=== PATIENT | male | born 1970 ===

== ENCOUNTER 2016-05-25 14:23 | Inpatient (IN) | payer MEDICAID ==
[2016-05-25 14:23] VITALS: BMI 39.0
--- NOTE | 2016-05-25 14:44 | C.PDOC ---
History Of Present Illness 45-year-old male, PMHx of COPD, asthma, DM, HN, DVT in RLE, NSTEMI in 01/2016, gallstones, liver cirrhosis, and CKD, presents to the emergency department with complaints of right lower-leg pain. Patient states he has been experiencing worsening pain and swelling in his right calf for the past few days, that is associated w/ redness to the anterior part of his leg, resulting in him coming to the ED for evaluation. States it feels similar to prior DVT pain, but it is worse. Denies nausea/vomiting, diarrhea, fevers, chills, shortness of breath, chest pain, numbness/weakness, or any other associated symptoms. No other complaints at this time. Of note, patient admitted in 05/06 for DVT and COPD exacerbation. Time Seen by Provider: 05/25/16 14:39 Chief Complaint (Nursing): Lower Extremity Problem/Injury History Per: Patient History/Exam Limitations: no limitations Onset/Duration Of Symptoms: Days Current Symptoms Are (Timing): Still Present Past Medical History Reviewed: Historical Data, Nursing Documentation, Vital Signs Vital Signs: Last Vital Signs Temp 98.3 F 05/25/16 14:26 Pulse 105 H 05/25/16 17:15 Resp 21 05/25/16 17:15 BP 117/51 L 05/25/16 17:15 Pulse Ox 90 L 05/25/16 17:24 - Medical History PMH: Asthma, CHF, COPD, Diabetes, Deep Vein Thrombosis, HTN, Hyperlipidemia, Pneumonia (2015) - [facility] Procedures DRAINAGE OF SPINAL CANAL, PERCUTANEOUS APPROACH, DIAGNOSTIC (05/03/15) INSERTION OF INFUSION DEV INTO R FEMOR VEIN, PERC APPROACH (01/25/16) PERFORMANCE OF URINARY FILTRATION, MULTIPLE (01/25/16) TETANUS TOXOID ADMINIST (07/19/13) Family History: States: Unknown Family Hx, Diabetes - Social History Hx Tobacco Use: No Hx Alcohol Use: No Hx Substance Use: No - Immunization History Hx Tetanus Toxoid Vaccination: Yes (07/19/13) Hx Influenza Vaccination: No (egg allergy) Hx Pneumococcal Vaccination: No Review Of Systems Except As Marked, All Systems Reviewed And Found Negative. Constitutional: Negative for: Fever, Chills Cardiovascular: Negative for: Chest Pain, Palpitations Respiratory: Negative for: Cough Gastrointestinal: Negative for: Nausea, Vomiting Musculoskeletal: Positive for: Leg Pain. Negative for: Back Pain Skin: Negative for: Rash Neurological: Negative for: Weakness, Numbness Physical Exam - Physical Exam Appears: Non-toxic, No Acute Distress (MODERATE) Skin: Warm, Dry, No Rash Head: Atraumatic, Normacephalic Eye(s): bilateral: Normal Inspection Nose: Normal Oral Mucosa: Moist Lips: Normal Appearing Neck: Normal ROM Cardiovascular: Rhythm Regular Respiratory: Normal Breath Sounds, No Accessory Muscle Use Extremity: Tenderness, Calf Tenderness, No Deformity, Swelling (RIGHT LOWER EXT : SWELLING AND REDNESS TO CALF, (+) TENDERNESS TO PALPATION) Neurological/Psych: Oriented x3, Normal Speech ED Course And Treatment - Laboratory Results Result Diagrams: 05/25/16 15:27 05/25/16 15:27 ECG: Interpreted By Me ECG Rhythm: Sinus Tachycardia, R BBB ECG Interpretation: No Acute Changes Rate From EC O2 Sat by Pulse Oximetry: 90 - CT Scan/US arterial duplex Other Rad Studies (CT/US): Radiology Report Reviewed (normal flow) Progress - Re-Evaluation Re-evaluation Note: 05/25/16 15:52 D/W DR MANLEY AWARE OF ER FINDINGS. PT ON MEDROL DOSE PACK, POSISBLE CAUSE ELEVATED WBC? BCX 05/11 NEG 05/25/16 16:37 co persist pain but improved from prior. ps has 1 day dose left of medrol dose pack. pending xray. - Data Reviewed Data Reviewed: Lab, Diagnostic imaging, EKG, Old records Disposition Counseled Patient/Family Regarding: Studies Performed, Diagnosis - Disposition Disposition: HOSPITALIZED Disposition Time: 17:23 Condition: STABLE - POA Present On Arrival: Poor Glycemic Control, Deep Vein Thrombosis / PE - Clinical Impression Clinical Impression: Cellulitis, Leg pain, Lymphocytosis - Scribe Statement The provider has reviewed the documentation as recorded by the Matheus Camargo All medical record entries made by the Renaeiberic were at my direction and personally dictated by me. I have reviewed the chart and agree that the record accurately reflects my personal performance of the history, physical exam, medical decision making, and the department course for this patient. I have also personally directed, reviewed, and agree with the discharge instructions and disposition. Decision To Admit - Pt Status Changed To: Hospital Disposition Of: Inpatient - Admit Certification Admit to Inpatient:: After my assessment, the patient will require hospitalization for at least two midnights. This is because of the severity of symptoms shown, intensity of services needed, and/or the medical risk in this patient being treated as an outpatient. - InPatient: Physician Admission Certification: I certify that this patient requires 2 or more midnights of care for the following reason:: SEE NOTE - . Bed Request Type: Regular Admitting Physician: Rick Manley Patient Diagnosis: Cellulitis, Leg pain, Lymphocytosis
[2016-05-25 15:34] LABS: BASO # 0.2 K/uL (0.0-0.2); BASO % 0.4 % (0.0-2.0); EOS # 0.3 K/uL (0.0-0.7); EOS % 0.9 % (0.0-4.0); HEMATOCRIT 50.3 % (35.0-51.0); LYMPH # 2.7 K/uL (1.0-4.3); LYMPH % 7.3 % (20.0-40.0); MEAN CORPUSCULAR HEMOGLOBIN 28.9 pg (27.0-31.0); MEAN CORPUSCULAR HGB CONC 32.7 g/dL (33.0-37.0); MEAN PLATELET VOLUME 9.1 fL (7.2-11.7); MONO # 2.5 K/uL (0.0-0.8); MONO % 6.7 % (0.0-10.0); NRBC % 0.1 % (0.0-2.0); PLATELET COUNT 114 K/uL (130-400); RED CELL DISTRIBUTION WIDTH 16.8 % (11.5-14.5)
[2016-05-25 15:42] LABS: INR 1.1
[2016-05-25 15:43] LABS: MEAN CELL VOLUME 88.4 fL (80.0-94.0); WHITE BLOOD COUNT 36.6 K/uL (4.8-10.8)
[2016-05-25] MEDS ORDERED: Morphine 4 MG/ML VIAL ONE (15:43)
[2016-05-25 16:03] LABS: CHLORIDE 95 mmol/L (98-107); SODIUM 134 mmol/L (132-148)
[2016-05-25 16:05] LABS: GFR AFRICAN-AMERICAN > 60
[2016-05-25 16:06] LABS: BLOOD UREA NITROGEN 30 mg/dL (9-20); CALCIUM 8.3 mg/dl (8.6-10.4); CARBON DIOXIDE 31 mmol/L (22-30); GLUCOSE,RANDOM 231 mg/dL (75-110)
[2016-05-25 16:35] LABS: VENOUS BLOOD GAS BASE EXCESS 3.5 mmol/L (0.0-2.0); VENOUS BLOOD GAS PCO2 57 mmHg (40-60); VENOUS BLOOD PH 7.34 (7.32-7.43)
[2016-05-25] MEDS ORDERED: HYDROmorphone 0.5 mg/0.5 ml ISec IVP STA (16:36)
[2016-05-25] MEDS ORDERED: HYDROmorphone 1 mg/ml ISec ONE (16:45)
[2016-05-25] MEDS ORDERED: ceFAZolin 1 gm FROZEN Premix 50 ML IVPB ONE (16:46)
[2016-05-25 16:53] LABS: EOSINOPHIL 1 % (0-4); NEUTROPHIL 85 % (50-75); TOTAL CELLS COUNTED 100
--- NOTE | 2016-05-25 16:56 | VASCLAB ---
PROCEDURE: HISTORY: SUDDEN ONSET LEG PAIN HO DVT COMPARISON: None available. TECHNIQUE: Grayscale and duplex Doppler evaluation of the right common femoral, femoral, profunda femoral, popliteal, posterior tibial, anterior tibial and dorsalis pedis arteries was performed. Report prepared by Thang Borrero, BS, RVT FINDINGS: RIGHT LOWER EXTREMITY: * Common Femoral Artery: Peak Systolic Velocity - 131: Doppler Waveform: Triphasic.: Plaque description - * Profunda Femoral Artery: Peak Systolic Velocity - 79: Doppler Waveform: Triphasic.: Plaque description - * Femoral Artery o Proximal Segment: Peak Systolic Velocity - 114: Doppler Waveform: Triphasic.: Plaque description - o Middle Segment: Peak Systolic Velocity - 92: Doppler Waveform: Triphasic.: Plaque description - o Distal Segment: Peak Systolic Velocity - 79: Doppler Waveform: Triphasic.: Plaque description - * Popliteal Artery o Proximal Segment: Peak Systolic Velocity - 97: Doppler Waveform: Triphasic.: Plaque description - o Middle Segment: Peak Systolic Velocity - 92: Doppler Waveform: Triphasic.: Plaque description - o Distal Segment: Peak Systolic Velocity - 79: Doppler Waveform: Triphasic.: Plaque description - * Posterior Tibial Artery: Peak Systolic Velocity - 60: Doppler Waveform: Triphasic.: Plaque description - * Anterior Tibial Artery: Peak Systolic Velocity - 87: Doppler Waveform: Triphasic.: Plaque description - * Dorsalis Pedis Artery: Peak Systolic Velocity - 30: Doppler Waveform: Biphasic.: Plaque description - OTHER FINDINGS: Technically difficult study due severe leg swelling. IMPRESSION: There is no evidence of hemodynamically significant arterial insufficiency in the right lower extremity.
[2016-05-25] MEDS ORDERED: Piperacill/Tazo 2.25gm in Dex 50 ML IVPB SCH (18:15)
--- NOTE | 2016-05-25 18:17 | RAD ---
HISTORY: SOB COMPARISON: Chest x-ray performed 05/11/16 ; CTA chest performed 05/11/16 TECHNIQUE: Chest, one view. FINDINGS: Examination limited by habitus. LUNGS: Diffuse reticular opacities re-identified throughout the lung capps. Please note that chest x-ray has limited sensitivity for the detection of pulmonary masses. PLEURA: No significant pleural effusion identified. No definite pneumothorax . CARDIOVASCULAR: Cardiomegaly. OSSEOUS STRUCTURES: Degenerative changes. VISUALIZED UPPER ABDOMEN: Unremarkable. OTHER FINDINGS: None. IMPRESSION: Diffuse reticular opacities re-identified throughout bilateral lung capps. Cardiomegaly.
--- NOTE | 2016-05-25 18:49 | CP.PCM.HP ---
<Bran Walters - Last Filed: 05/25/16 18:46> History of Present Illness - History of Present Illness History of Present Illness: 45 year old male with PMHx of COPD, asthma, DM, HN, DVT in RLE, NSTEMI in 2015, gallstones, liver cirrhosis, and CKD presents with complaint of aright LE pain and swelling. Pt recently admitted to [facility] and found to have a DVT in his right lower extremity and he was discharged on Xarelto. Pt states that starting yesterday he began to have some swelling in his lower right extremity. However, he states that starting this morning he began to have sharp , shooting pain with a burning sensation as well. The pain got to be too much and he decided to come into the ED. Pt states that nothing relieves the pain and that touching it makes it worse. He states that he has been taking his prescribed medications. He denies any fevers, chest pain, nausea or vomiting. He admits to some chills and night sweats the last couple of nights. He also states that he has some sob but states that it is related to his COPD/asthma. PMD: Brayden Dietz PMHx: COPD, asthma, DM, HN, DVT in RLE, NSTEMI in 01/2016, gallstones, liver cirrhosis, and CKD Surgical Hx: splenectomy Family Hx: Mom- DM Social hx: Previous smoker for 20 years, quit ~5 years ago; denies illicit drug use; denies EtOH use; unemployed Allergies: NKDA Present on Admission - Present on Admission Any Indicators Present on Admission: Yes History of DVT/PE: Yes Review of Systems - Constitutional Constitutional: Chills. absent: Fever, Weakness - EENT Eyes: absent: Blurred Vision - Cardiovascular Cardiovascular: absent: Chest Pain, Palpitations - Respiratory Respiratory: Dyspnea. absent: Cough, Wheezing - Gastrointestinal Gastrointestinal: absent: Abdominal Pain, Nausea, Vomiting - Musculoskeletal Musculoskeletal: absent: Numbness, Tingling - Integumentary Integumentary: Skin Pain, Swelling Past Patient History - Infectious Disease Hx of Infectious Diseases: None - Past Medical History & Family History Past Medical History?: Yes - Past Social History Smoking Status: Former Smoker - CARDIAC Hx Congestive Heart Failure: Yes Hx Hypertension: Yes - PULMONARY Hx Asthma: Yes Hx Chronic Obstructive Pulmonary Disease (COPD): Yes Hx Pneumonia: Yes (2015) - NEUROLOGICAL Hx Neurological Disorder: Yes Other/Comment: c/o headache on admission, spinal tap attempted to remove spinal fluid. becuase of immobility developed DVT. at the time. right leg. - HEENT Hx HEENT Problems: No - RENAL Hx Chronic Kidney Disease: No - ENDOCRINE/METABOLIC Hx Endocrine Disorders: Yes Hx Diabetes Mellitus Type 1: Yes - HEMATOLOGICAL/ONCOLOGICAL Hx Blood Disorders: No - INTEGUMENTARY Hx Dermatological Problems: No - MUSCULOSKELETAL/RHEUMATOLOGICAL Hx Musculoskeletal Disorders: No Hx Falls: No - GASTROINTESTINAL Hx Gastrointestinal Disorders: No - GENITOURINARY/GYNECOLOGICAL Hx Genitourinary Disorders: No - PSYCHIATRIC Hx Substance Use: No - SURGICAL HISTORY Hx Surgeries: Yes Hx Splenectomy: Yes (3 years ago) Hx Vascular Access Device: Yes (HX INGUINAL PERMA CATH) - ANESTHESIA Hx Anesthesia: Yes Hx Anesthesia Reactions: No Meds Allergies/Adverse Reactions: Allergies Allergy/AdvReac Type Severity Reaction Status Date / Time EGG Allergy Intermediate RASH Verified 05/25/16 14:29 Physical Exam - Constitutional Appears: Non-toxic, In Acute Distress - Head Exam Head Exam: ATRAUMATIC, NORMOCEPHALIC - Eye Exam Eye Exam: Normal appearance Pupil Exam: PERRL - ENT Exam ENT Exam: Mucous Membranes Moist - Respiratory Exam Respiratory Exam: Decreased Breath Sounds, Clear to Auscultation Bilateral - Cardiovascular Exam Cardiovascular Exam: +S1, +S2 - GI/Abdominal Exam GI & Abdominal Exam: Normal Bowel Sounds, Soft - Extremities Exam Extremities exam: Positive for: normal capillary refill, tenderness (over right lower extremity extending slightly past the knee. Associated erythema and swelling). Negative for: normal inspection - Neurological Exam Neurological exam: Alert, Oriented x3 - Skin Skin Exam: Dry, Warm Results - Vital Signs Recent Vital Signs: Last Vital Signs Temp 99.4 F 05/25/16 18:23 Pulse 106 H 05/25/16 18:23 Resp 20 05/25/16 18:23 BP 116/54 L 05/25/16 18:23 Pulse Ox 93 L 05/25/16 18:23 - Labs Result Diagrams: 05/25/16 15:27 05/25/16 15:27 Assessment & Plan - Assessment and Plan (Free Text) Assessment: Cellulitis - afebrile, but admits to chills/night sweats - Leukocytosis secondary to cellulitis vs steroid use - associated erythema and swelling - Given Ancef in ED - Will give one dose of Vancomycin - Start Zosyn, renal dose - Procalcitonin and AM labs - Elevate leg DVT - Known RLE DVT - Pain, erythema and swelling - Currently on Xarelto, will continue - Vascula surgery consulted - help appreciated - Art duplex study negative - Will order dorian duplex study - f/u results - Morhpine for pain Leukosytosis - secondary to cellulitis vs steroid use - Abx as above - monitor for fever - AM labs COPD/asthma - Duonebs 3ml INH q6h ANABELLA - Home Advair - Solumedrol 40mg IV q12h - home Singulair 10mg PO HS Biventricular heart failure - 01/2016 ECHO- LV EF 60-65%, mild pulmonary HTN (see full report) - Evaluated by Dr Rodriguez on last admission for NSTEMI - home lasix DM - home regimen of Levemir and Novolog - Heart healthy/diabetic diet HTN - Continue home meds - Monitor vitals q4h and adjust as needed CKD stage 2 - Previously worked up by Dr Rhoades in 01/2016 - Monitor CAD - hx NSTEMI - Crestor 20mg PO HS Prophylactic measures - SCDs contraindicated due to DVT - Xarelto 20mg PO daily - ASA 81mg PO daily - Pepcid 20mg PO daily <Rick Vargas H - Last Filed: 05/28/16 07:11> Results - Vital Signs Recent Vital Signs: Last Vital Signs Temp 98.6 F 05/27/16 23:15 Pulse 107 H 05/27/16 23:15 Resp 20 05/27/16 23:15 BP 144/79 05/27/16 23:15 Pulse Ox 95 05/27/16 23:15 - Labs Result Diagrams: 05/27/16 09:38 05/27/16 12:37 Labs: Laboratory Results - last 24 hr 05/26/16 05/27/16 05/27/16 13:54 07:46 08:42 WBC 43.8 H* RBC 5.00 Hgb 14.6 Hct 44.7 MCV 89.4 MCH 29.2 MCHC 32.6 L RDW 16.7 H Plt Count 103 L MPV 10.4 Neut % (Auto) 88.5 H Lymph % (Auto) 4.4 L [place] % (Auto) 6.8 Eos % (Auto) 0.0 Baso % (Auto) 0.3 Neut # 38.8 H Lymph # 1.9 [place] # 3.0 H Eos # 0.0 Baso # 0.1 Neutrophils % (Manual) 89 H Band Neutrophils % 1 Lymphocytes % (Manual) 1 L Monocytes % (Manual) 9 Platelet Estimate Decreased L Large Platelets Present RBC Morphology Normal Smear Path Review PT INR APTT Puncture Site Rra pCO2 50 H pO2 93 HCO3 20.0 L ABG pH 7.24 L ABG Total CO2 22.9 ABG O2 Saturation 98.6 H ABG Base Excess -6.3 L Philippe Test Pos ABG Potassium 5.2 Glucose 352 H Lactate 1.0 Liter Flow 3.0 Sodium 128 L 132.0 Potassium 6.2 H* Chloride 91 L 101.0 Carbon Dioxide 24 Anion Gap 18 BUN 65 H Creatinine 2.9 H Est GFR ( Amer) 28 Est GFR (Non-Af Amer) 24 POC Glucose (mg/dL) Random Glucose 391 H Calcium 7.7 L Phosphorus 5.5 H Magnesium 1.8 Total Bilirubin 0.8 AST 21 ALT 30 Alkaline Phosphatase 116 Total Protein 6.1 L Albumin 3.0 L Globulin 3.1 Albumin/Globulin Ratio 1.0 Procalcitonin Arterial Blood Potassium 5.2 Urine Color Urine Clarity Urine pH Ur Specific [place] Urine Protein Urine Glucose (UA) Urine Ketones Urine Blood Urine Nitrate Urine Bilirubin Urine Urobilinogen Ur Leukocyte Esterase Urine WBC (Auto) Urine RBC (Auto) Ur Squamous Epith Cells Amorphous Sediment Urine Bacteria 05/27/16 05/27/16 05/27/16 09:38 10:55 11:22 WBC 43.3 H* RBC 4.96 Hgb 14.4 Hct 44.2 MCV 89.1 MCH 29.0 MCHC 32.6 L RDW 17.0 H Plt Count 85 L MPV 10.0 Neut % (Auto) 87.3 H Lymph % (Auto) 5.9 L [place] % (Auto) 6.6 Eos % (Auto) 0.1 Baso % (Auto) 0.1 Neut # 37.8 H Lymph # 2.6 [place] # 2.9 H Eos # 0.0 Baso # 0.1 Neutrophils % (Manual) Band Neutrophils % Lymphocytes % (Manual) Monocytes % (Manual) Platelet Estimate Large Platelets RBC Morphology Smear Path Review PT 13.9 H INR 1.2 APTT 86 H D Puncture Site pCO2 pO2 HCO3 ABG pH ABG Total CO2 ABG O2 Saturation ABG Base Excess Philippe Test ABG Potassium Glucose Lactate Liter Flow Sodium 129 L Potassium 5.5 H Chloride 92 L Carbon Dioxide 26 Anion Gap 17 BUN 68 H Creatinine 2.8 H Est GFR ( Amer) 30 Est GFR (Non-Af Amer) 25 POC Glucose (mg/dL) Random Glucose 324 H Calcium 8.0 L Phosphorus 5.5 H Magnesium 1.9 Total Bilirubin 0.8 AST 19 ALT 39 Alkaline Phosphatase 112 Total Protein 6.1 L Albumin 2.7 L Globulin 3.5 Albumin/Globulin Ratio 0.8 L Procalcitonin 31.81 H Arterial Blood Potassium Urine Color Yellow Urine Clarity Hazy Urine pH 5.0 Ur Specific [place] 1.013 Urine Protein 2+ H Urine Glucose (UA) 3+ H Urine Ketones Negative Urine Blood 1+ H Urine Nitrate Negative Urine Bilirubin Negative Urine Urobilinogen Normal Ur Leukocyte Esterase Neg Urine WBC (Auto) 3 Urine RBC (Auto) 9 H Ur Squamous Epith Cells < 1 Amorphous Sediment Few H Urine Bacteria 05/27/16 05/27/16 05/27/16 11:23 11:57 12:26 WBC RBC Hgb Hct MCV MCH MCHC RDW Plt Count MPV Neut % (Auto) Lymph % (Auto) [place] % (Auto) Eos % (Auto) Baso % (Auto) Neut # Lymph # [place] # Eos # Baso # Neutrophils % (Manual) Band Neutrophils % Lymphocytes % (Manual) Monocytes % (Manual) Platelet Estimate Large Platelets RBC Morphology Smear Path Review PT INR APTT Puncture Site Rra pCO2 52 H pO2 79 L HCO3 20.0 L ABG pH 7.23 L ABG Total CO2 23.4 ABG O2 Saturation 97.2 ABG Base Excess -6.2 L Philippe Test Pos ABG Potassium 4.7 Glucose 233 H Lactate 1.0 Liter Flow 3.0 Sodium 131.0 L Potassium Chloride 103.0 Carbon Dioxide Anion Gap BUN Creatinine Est GFR ( Amer) Est GFR (Non-Af Amer) POC Glucose (mg/dL) 353 H Random Glucose Calcium Phosphorus Magnesium Total Bilirubin AST ALT Alkaline Phosphatase Total Protein Albumin Globulin Albumin/Globulin Ratio Procalcitonin Arterial Blood Potassium 4.7 Urine Color Yellow Urine Clarity Hazy Urine pH 5.0 Ur Specific [place] 1.015 Urine Protein 2+ H Urine Glucose (UA) 2+ H Urine Ketones Negative Urine Blood 1+ H Urine Nitrate Negative Urine Bilirubin Negative Urine Urobilinogen Normal Ur Leukocyte Esterase Neg Urine WBC (Auto) 4 Urine RBC (Auto) 7 H Ur Squamous Epith Cells 2 Amorphous Sediment Occ H Urine Bacteria Rare 05/27/16 05/27/16 05/27/16 12:37 16:36 20:08 WBC RBC Hgb Hct MCV MCH MCHC RDW Plt Count MPV Neut % (Auto) Lymph % (Auto) [place] % (Auto) Eos % (Auto) Baso % (Auto) Neut # Lymph # [place] # Eos # Baso # Neutrophils % (Manual) Band Neutrophils % Lymphocytes % (Manual) Monocytes % (Manual) Platelet Estimate Large Platelets RBC Morphology Smear Path Review PT INR APTT 135 H* D Puncture Site pCO2 pO2 HCO3 ABG pH ABG Total CO2 ABG O2 Saturation ABG Base Excess Philippe Test ABG Potassium Glucose Lactate Liter Flow Sodium 128 L Potassium 5.4 H Chloride 92 L Carbon Dioxide 26 Anion Gap 17 BUN 66 H Creatinine 2.9 H Est GFR ( Amer) 28 Est GFR (Non-Af Amer) 24 POC Glucose (mg/dL) 223 H Random Glucose 253 H Calcium 8.0 L Phosphorus Magnesium Total Bilirubin AST ALT Alkaline Phosphatase Total Protein Albumin Globulin Albumin/Globulin Ratio Procalcitonin Arterial Blood Potassium Urine Color Urine Clarity Urine pH Ur Specific [place] Urine Protein Urine Glucose (UA) Urine Ketones Urine Blood Urine Nitrate Urine Bilirubin Urine Urobilinogen Ur Leukocyte Esterase Urine WBC (Auto) Urine RBC (Auto) Ur Squamous Epith Cells Amorphous Sediment Urine Bacteria 05/27/16 21:27 WBC RBC Hgb Hct MCV MCH MCHC RDW Plt Count MPV Neut % (Auto) Lymph % (Auto) [place] % (Auto) Eos % (Auto) Baso % (Auto) Neut # Lymph # [place] # Eos # Baso # Neutrophils % (Manual) Band Neutrophils % Lymphocytes % (Manual) Monocytes % (Manual) Platelet Estimate Large Platelets RBC Morphology Smear Path Review PT INR APTT Puncture Site pCO2 pO2 HCO3 ABG pH ABG Total CO2 ABG O2 Saturation ABG Base Excess Philippe Test ABG Potassium Glucose Lactate Liter Flow Sodium Potassium Chloride Carbon Dioxide Anion Gap BUN Creatinine Est GFR ( Amer) Est GFR (Non-Af Amer) POC Glucose (mg/dL) 247 H Random Glucose Calcium Phosphorus Magnesium Total Bilirubin AST ALT Alkaline Phosphatase Total Protein Albumin Globulin Albumin/Globulin Ratio Procalcitonin Arterial Blood Potassium Urine Color Urine Clarity Urine pH Ur Specific [place] Urine Protein Urine Glucose (UA) Urine Ketones Urine Blood Urine Nitrate Urine Bilirubin Urine Urobilinogen Ur Leukocyte Esterase Urine WBC (Auto) Urine RBC (Auto) Ur Squamous Epith Cells Amorphous Sediment Urine Bacteria Attending/Attestation - Attestation I have personally seen and examined this patient.: Yes I have fully participated in the care of the patient.: Yes I have reviewed all pertinent clinical information: Yes Notes (Text): Medical Attending: Patient was seen and examined by me. He is a very nice patient, however has multiple signifigant medical history. We saw the patient in the ER, agree with the above note by the medical assistant instructor. Patient is known to the hospitalist service from previous admission. He has a history of lower extremity DVT and it requires Xarelto. During that previous admission he was not taking the Xarelto and came with lower extremity leg pain and it resolved with the Xarelto. He did have HENRIQUE at that time since he reported C/P and a CTA was done to rule out PE. He required several days admission to bring down the BUN Creatine. He returns now with elevated WBC but continues to have pain in the lower extremity. Unlike before it feels warm and also tender. With the elevated WBC count will have to start IV abx. He is again short of breath, probably from COPD as well. thank you Rick Vargas
--- NOTE | 2016-05-25 18:54 | RAD ---
PROCEDURE: Radiographs of the right tibia and fibula. HISTORY: MID LOWER LEG PAIN COMPARISON: None available. FINDINGS: BONES: Suspect small region of periosteal reaction involving the lateral aspect of the distal tibia. No acute displaced fracture. Degenerative changes. Suprapatellar and infrapatellar enthesophyte. JOINT SPACES: No dislocation. OTHER FINDINGS: Soft tissue edema. No evidence of radiopaque foreign body. IMPRESSION: Soft tissue edema. Suspect small region of periosteal reaction involving the lateral aspect of the distal tibia.
--- NOTE | 2016-05-25 19:17 | CP.PCM.CON ---
History of Present Illness - History of Present Illness History of Present Illness: Vascular Surgery Consult Re: Hx RLE DVT 45M presents to ED C/O RLE pain and swelling. Has been getting larger and more painful for 1 day. Pt recently admitted on 05/11/16 and found to have a DVT in his RLE and was discharged on Xarelto. Sharp, shooting pain with burning sensation began this AM. Pain rated 10/10 so he decided to come to the ED. Touching it makes pain worse. He has been taking his Xarelto. Denies any fevers , chest pain, nausea or vomiting. + Mild sob but states that it is related to his COPD/asthma and he had the same issue prior to this DVT. He had another RLE DVT in April of 2015, which was shown to be resolved by January of 2016. PMH: COPD, asthma, DM, HN, DVT in RLE, NSTEMI in 01/2016, gallstones, liver cirrhosis, and CKD PSH: splenectomy SH: Previous smoker, quit ~9 years ago, 1 PPD when smoking, No EtOh or drug use. All: Egg, NKDA Meds: Xarelto, Solumedrol dose pack, see MAR Review of Systems - Review of Systems All systems: reviewed and no additional remarkable complaints except (as per HPI ) Past Patient History - Infectious Disease Hx of Infectious Diseases: None - Past Medical History & Family History Past Medical History?: Yes - Past Social History Smoking Status: Former Smoker - CARDIAC Hx Congestive Heart Failure: Yes Hx Hypertension: Yes - PULMONARY Hx Asthma: Yes Hx Chronic Obstructive Pulmonary Disease (COPD): Yes Hx Pneumonia: Yes (2015) - NEUROLOGICAL Hx Neurological Disorder: Yes Other/Comment: c/o headache on admission, spinal tap attempted to remove spinal fluid. becuase of immobility developed DVT. at the time. right leg. - HEENT Hx HEENT Problems: No - RENAL Hx Chronic Kidney Disease: No - ENDOCRINE/METABOLIC Hx Endocrine Disorders: Yes Hx Diabetes Mellitus Type 1: Yes - HEMATOLOGICAL/ONCOLOGICAL Hx Blood Disorders: No - INTEGUMENTARY Hx Dermatological Problems: No - MUSCULOSKELETAL/RHEUMATOLOGICAL Hx Musculoskeletal Disorders: No Hx Falls: No - GASTROINTESTINAL Hx Gastrointestinal Disorders: No - GENITOURINARY/GYNECOLOGICAL Hx Genitourinary Disorders: No - PSYCHIATRIC Hx Substance Use: No - SURGICAL HISTORY Hx Surgeries: Yes Hx Splenectomy: Yes (3 years ago) Hx Vascular Access Device: Yes (HX INGUINAL PERMA CATH) - ANESTHESIA Hx Anesthesia: Yes Hx Anesthesia Reactions: No Meds Allergies/Adverse Reactions: Allergies Allergy/AdvReac Type Severity Reaction Status Date / Time EGG Allergy Intermediate RASH Verified 05/25/16 14:29 - Medications Medications: Current Medications Albuterol/Ipratropium (Duoneb 3 Mg/0.5 Mg (3 Ml) Ud) 3 ml INH RQ6 PRN PRN Reason: Shortness of Breath Aspirin (Aspirin Chewable) 81 mg PO DAILY [facility] Docusate Sodium (Colace) 100 mg PO BID [facility] Famotidine (Pepcid) 20 mg PO DAILY [facility] Furosemide (Lasix) 40 mg IVP DAILY [facility] Vancomycin HCl 1 gm/ Sodium (Chloride) 250 mls @ 166.7 mls/hr IVPB ONCE ONE Stop: 05/25/16 20:29 Piperacillin Sod/Tazobactam Sod (Zosyn 2.25 Gm Iv Premix) 50 mls @ 100 mls/hr IVPB Q6H [facility] Insulin Aspart (Novolog) 12 unit SC ACTID [facility] Insulin Detemir (Levemir) 25 unit SC Q12 [facility] Losartan Potassium (Cozaar) 25 mg PO DAILY [facility] Methylprednisolone (Solu-Medrol) 40 mg IVP Q8 [facility] Montelukast Sodium (Singulair) 10 mg PO HS [facility] Morphine Sulfate (Morphine) 2 mg IVP Q3 PRN PRN Reason: Pain, moderate (4-7) Rivaroxaban (Xarelto) 20 mg PO DAILY [facility] Rosuvastatin Calcium (Crestor) 20 mg PO HS [facility] Fluticasone/Salmeterol (Advair Diskus 250/50) 2 puff IH Q12 [facility] Physical Exam - Constitutional Appears: Non-toxic, No Acute Distress - Head Exam Head Exam: ATRAUMATIC, NORMOCEPHALIC - Eye Exam Eye Exam: EOMI. absent: Scleral icterus - ENT Exam ENT Exam: Mucous Membranes Moist Additional comments: trachea midline - Respiratory Exam Respiratory Exam: NORMAL BREATHING PATTERN. absent: Respiratory Distress - Cardiovascular Exam Cardiovascular Exam: Tachycardia, +S1, +S2 - GI/Abdominal Exam GI & Abdominal Exam: Soft. absent: Distended, Tenderness - Rectal Exam Rectal Exam: Deferred - Extremities Exam Extremities exam: Positive for: calf tenderness (on R), pedal edema (on R) Additional comments: RLE TTP, tender on dorsiflexion, swollen up to knee LLE normal, non tender - Back Exam Back exam: absent: CVA tenderness (L), CVA tenderness (R) - Neurological Exam Neurological exam: Alert, Oriented x3 - Psychiatric Exam Psychiatric exam: Normal Affect, Normal Mood - Skin Skin Exam: Dry, Warm Results - Vital Signs Recent Vital Signs: Last Vital Signs Temp 99.6 F 05/25/16 19:00 Pulse 108 H 05/25/16 19:00 Resp 20 05/25/16 19:00 BP 128/68 05/25/16 19:00 Pulse Ox 94 L 05/25/16 19:00 - Labs Result Diagrams: 05/25/16 15:27 05/25/16 15:27 Assessment & Plan - Assessment and Plan (Free Text) Assessment: 45M with Recurrent RLE DVT and increased swelling and pain Plan: Follow up LE venous US If positive will need to consider CT angio of chest/abdomen/pelvis with venous phase to check the extent of the DVT. If intra abdominal may consider endovascular thrombolysis. Heparin and elevate the limb. D/W Dr. Malik Crowell PGY3
[2016-05-25] MEDS: Piperacill/Tazo 2.25gm in Dex 50 ML IVPB SCH (21:26)
[2016-05-25] MEDS: Insulin Detemir 100 units/ml Vial (Levemir) SC SCH (21:34)
[2016-05-25] MEDS: Fluticasone-Salmeterol 250-50mcg Diskus IH SCH (22:43)
[2016-05-26] MEDS: Piperacill/Tazo 2.25gm in Dex 50 ML IVPB SCH ×4 (01:00→20:30)
[2016-05-26] MEDS: MethylPREDNISolone 40 mg Vial IVP SCH ×2 (03:30→13:46)
[2016-05-26 06:27] LABS: BASO # 0.1 K/uL (0.0-0.2); BASO % 0.1 % (0.0-2.0); HEMATOCRIT 50.4 % (35.0-51.0); LYMPH # 1.2 K/uL (1.0-4.3); LYMPH % 2.6 % (20.0-40.0); MEAN CELL VOLUME 89.5 fL (80.0-94.0); MEAN CORPUSCULAR HEMOGLOBIN 28.8 pg (27.0-31.0); MEAN CORPUSCULAR HGB CONC 32.2 g/dL (33.0-37.0); MEAN PLATELET VOLUME 10.1 fL (7.2-11.7); MONO # 1.5 K/uL (0.0-0.8); MONO % 3.3 % (0.0-10.0); PLATELET COUNT 111 K/uL (130-400); RED CELL DISTRIBUTION WIDTH 17.4 % (11.5-14.5)
[2016-05-26 06:44] LABS: BILIRUBIN,TOTAL 1.4 mg/dL (0.2-1.3)
[2016-05-26 06:45] LABS: CALCIUM 7.9 mg/dl (8.6-10.4)
[2016-05-26 06:46] LABS: POTASSIUM 6.4 mmol/L (3.6-5.2)
[2016-05-26 07:03] LABS: WHITE BLOOD COUNT 47.1 K/uL (4.8-10.8)
[2016-05-26] MEDS ORDERED: Sodium Chloride 0.9% 1,000 ML IV SCH ×2 (07:15→10:40)
[2016-05-26] MEDS: (Novolog) Insulin Aspart, Recombinant 100 u/ml 10 ml vial SC SCH ×3 (07:22→16:34)
[2016-05-26] MEDS: Fluticasone-Salmeterol 250-50mcg Diskus IH SCH (08:20)
[2016-05-26] MEDS: Albuterol-Ipratrop 3 mg / 0.5 (3 ml) UD INH PRN ×2 (08:20→13:46)
[2016-05-26 09:21] LABS: NEUTROPHIL 80 % (50-75); TOTAL CELLS COUNTED 100
[2016-05-26 09:24] LABS: LARGE PLATELETS PRESENT
[2016-05-26] MEDS ORDERED: Sod Polystyrene Sulf 15 gm/60 ml Oral Susp PO ONE ×2 (10:28→13:10)
[2016-05-26] MEDS ORDERED: Albuterol-Ipratrop 3 mg / 0.5 (3 ml) UD INH STA (10:39)
[2016-05-26] MEDS: Insulin Detemir 100 units/ml Vial (Levemir) SC SCH ×2 (10:44→22:40)
[2016-05-26] MEDS: (Novolin R) Insulin Human Regular 100 units/ml vial SC SCH ×3 (12:45→22:00)
[2016-05-26] MEDS: Sodium Chloride 0.9% 1,000 ML IV SCH ×2 (13:50→16:57)
[2016-05-26 14:04] LABS: HEMATOCRIT 47.2 % (35.0-51.0); LYMPH # 0.9 K/uL (1.0-4.3); LYMPH % 1.9 % (20.0-40.0); MEAN CELL VOLUME 89.8 fL (80.0-94.0); MEAN CORPUSCULAR HEMOGLOBIN 28.6 pg (27.0-31.0); MEAN CORPUSCULAR HGB CONC 31.8 g/dL (33.0-37.0); MEAN PLATELET VOLUME 9.7 fL (7.2-11.7); MONO # 2.1 K/uL (0.0-0.8); MONO % 4.7 % (0.0-10.0); PLATELET COUNT 101 K/uL (130-400); RED CELL DISTRIBUTION WIDTH 16.6 % (11.5-14.5)
[2016-05-26 14:08] LABS: WHITE BLOOD COUNT 44.5 K/uL (4.8-10.8)
[2016-05-26 14:09] LABS: POTASSIUM 5.8 mmol/L (3.6-5.2)
[2016-05-26 14:12] LABS: CALCIUM 7.7 mg/dl (8.6-10.4); MAGNESIUM 1.6 mg/dL (1.6-2.3)
--- NOTE | 2016-05-26 14:13 | CP.PCM.PN ---
Subjective - Date & Time of Evaluation Date of Evaluation: 05/26/16 Time of Evaluation: 14:10 - Subjective Subjective: patient does have clot that extends at least o iliac vein on right Ideally should get thrombolytic Rx but concern over elevated Creatitine argues against lytic rx will see how renal function improves Objective - Vital Signs/Intake and Output Vital Signs (last 24 hours): Temp Pulse Resp BP Pulse Ox 98.3 F 91 H 20 119/74 94 L 05/26/16 08:17 05/26/16 08:17 05/26/16 08:17 05/26/16 08:17 05/26/16 08:17 Intake and Output: 05/26/16 05/26/16 06:59 18:59 Intake Total 845 Output Total 800 Balance 45 - Medications Medications: Current Medications Albuterol/Ipratropium (Duoneb 3 Mg/0.5 Mg (3 Ml) Ud) 3 ml INH RQ6 PRN PRN Reason: Shortness of Breath Last Admin: 05/26/16 13:46 Dose: 3 ml Aspirin (Aspirin Chewable) 81 mg PO DAILY [facility] Last Admin: 05/26/16 10:43 Dose: 81 mg Docusate Sodium (Colace) 100 mg PO BID [facility] Last Admin: 05/26/16 10:43 Dose: 100 mg Famotidine (Pepcid) 20 mg PO DAILY [facility] Last Admin: 05/26/16 10:43 Dose: 20 mg Furosemide (Lasix) 40 mg IVP DAILY [facility] Piperacillin Sod/Tazobactam Sod (Zosyn 2.25 Gm Iv Premix) 50 mls @ 100 mls/hr IVPB Q8H [facility] Last Admin: 05/26/16 13:49 Dose: 100 mls/hr Sodium Chloride (Sodium Chloride 0.9%) 1,000 mls @ 75 mls/hr IV .[id number] [facility] Last Admin: 05/26/16 13:50 Dose: 75 mls/hr Insulin Aspart (Novolog) 12 unit SC ACTID [facility] Last Admin: 05/26/16 13:48 Dose: 12 unit Insulin Detemir (Levemir) 25 unit SC Q12 [facility] Last Admin: 05/26/16 10:44 Dose: 25 unit Insulin Human Regular (Novolin R) 0 unit SC ACHS [facility] PRN Reason: Protocol Last Admin: 05/26/16 12:45 Dose: 5 unit Losartan Potassium (Cozaar) 25 mg PO DAILY [facility] Last Admin: 05/26/16 10:43 Dose: Not Given Montelukast Sodium (Singulair) 10 mg PO HS [facility] Last Admin: 05/25/16 21:33 Dose: 10 mg Morphine Sulfate (Morphine) 2 mg IVP Q3 PRN PRN Reason: Pain, moderate (4-7) Last Admin: 05/26/16 12:46 Dose: 2 mg Pneumococcal Polyvalent Vaccine (Pneumovax 23 Vaccine) 0.5 ml IM .ONCE ONE Stop: 05/27/16 20:01 Prednisone (Prednisone Tab) 40 mg PO DAILY [facility] Rivaroxaban (Xarelto) 20 mg PO DAILY [facility] Last Admin: 05/26/16 13:37 Dose: 20 mg Rosuvastatin Calcium (Crestor) 20 mg PO HS [facility] Last Admin: 05/25/16 21:34 Dose: 20 mg Fluticasone/Salmeterol (Advair Diskus 250/50) 2 puff IH Q12 [facility] Last Admin: 05/26/16 08:20 Dose: 2 puff - Labs Labs: 05/26/16 13:54 05/26/16 06:07 PT 11.9 SECONDS (9.7-12.2) 05/25/16 15:27 INR 1.1 05/25/16 15:27 APTT 62 SECONDS (21-34) H 05/25/16 15:27
--- NOTE | 2016-05-26 14:44 | CARD ---
APPROVED REPORT EKG Measurement Heart [id number] <Conclusion> Sinus tachycardia Indeterminate axis Right bundle branch block Abnormal ECG
[2016-05-26 14:56] LABS: NEUTROPHIL 80 % (50-75); TOTAL CELLS COUNTED 100
[2016-05-26 14:57] LABS: GIANT PLATELETS PRESENT
--- NOTE | 2016-05-26 15:15 | CON ---
DATE: 05/26/2016 REQUESTING PHYSICIAN: Dr. Vargas. HISTORY OF PRESENT ILLNESS: The patient is a 45-year-old man, morbidly obese diabetic with an infect ion in his leg, but also was found to have deep vein thrombosis, having been treated with Coumadin an d now on a NOAC, who I was asked to see for evaluation of recurrent and increased swelling in the leg . The patient was seen twice already by me today. Both times he was instructed to elevate his legs, to keep the bed elevated. On both times, when I came back into room, the feet were down and he was not elevating his legs. I discussed with him the need and importance of this as well as the long-ter m importance of wearing support stockings. PAST MEDICAL HISTORY AND REVIEW OF SYSTEMS: As noted. PHYSICAL EXAMINATION: He is 5 feet 7 inches tall. He is almost 300 pounds. His exam shows marked e stanford in the right leg. Pulses are relatively normal. Cellulitic type changes in the leg. LABORATORY DATA: Shows an elevation of his creatinine to 2.4 and shows a white count of 35,000. IMPRESSION: The patient has severe deep vein thrombosis of the right leg with surrounding cellulitis . The clot, on the basis of the ultrasound done today, extends above the groin. This ideally is audi ated with invasive thrombolytic therapy. However, given the present circumstances, creatinine 2.4, e tc., I do not recommend that we do this at this time. Will follow the patient closely, but I have no immediate plans for any surgical intervention or endovascular intervention at this time. If his cre atinine approaches or comes down to relatively normal level then consideration could be given to inte rvening. Kristian Ortega Jr., MD cc: [phone] TT: 05/26/2016 15:14:10 Confirmation # [id number] Dictation # [id number] jules
--- NOTE | 2016-05-26 15:22 | CP.PCM.PN ---
<Bran Walters - Last Filed: 05/26/16 17:40> Subjective - Date & Time of Evaluation Date of Evaluation: 05/26/16 Time of Evaluation: 15:18 - Subjective Subjective: PGY-1 note for medicine service Pt seen and examined at bedside. Pt states that the pain in his right leg has now extended up to his right thigh. He also says that the swelling seems to extend that high as well. Per nurse, the pt had significantly elevated blood glucose and potassium this morning. Pt not complaining of any chest pain, sob, palpitations, nausea, vomiting or fevers. Objective - Vital Signs/Intake and Output Vital Signs (last 24 hours): Temp Pulse Resp BP Pulse Ox 98.3 F 91 H 20 119/74 94 L 05/26/16 08:17 05/26/16 08:17 05/26/16 08:17 05/26/16 08:17 05/26/16 08:17 Intake and Output: 05/26/16 05/26/16 06:59 18:59 Intake Total 845 Output Total 800 Balance 45 - Medications Medications: Current Medications Albuterol/Ipratropium (Duoneb 3 Mg/0.5 Mg (3 Ml) Ud) 3 ml INH RQ6 PRN PRN Reason: Shortness of Breath Last Admin: 05/26/16 13:46 Dose: 3 ml Aspirin (Aspirin Chewable) 81 mg PO DAILY [facility] Last Admin: 05/26/16 10:43 Dose: 81 mg Docusate Sodium (Colace) 100 mg PO BID [facility] Last Admin: 05/26/16 10:43 Dose: 100 mg Famotidine (Pepcid) 20 mg PO DAILY [facility] Last Admin: 05/26/16 10:43 Dose: 20 mg Furosemide (Lasix) 40 mg IVP DAILY [facility] Piperacillin Sod/Tazobactam Sod (Zosyn 2.25 Gm Iv Premix) 50 mls @ 100 mls/hr IVPB Q8H [facility] Last Admin: 05/26/16 13:49 Dose: 100 mls/hr Sodium Chloride (Sodium Chloride 0.9%) 1,000 mls @ 75 mls/hr IV .[id number] [facility] Last Admin: 05/26/16 13:50 Dose: 75 mls/hr Aztreonam 1 gm/ Sodium (Chloride) 100 mls @ 100 mls/hr IVPB Q12H [facility] Insulin Aspart (Novolog) 12 unit SC ACTID [facility] Last Admin: 05/26/16 13:48 Dose: 12 unit Insulin Detemir (Levemir) 25 unit SC Q12 [facility] Last Admin: 05/26/16 10:44 Dose: 25 unit Insulin Human Regular (Novolin R) 0 unit SC ACHS [facility] PRN Reason: Protocol Last Admin: 05/26/16 12:45 Dose: 5 unit Losartan Potassium (Cozaar) 25 mg PO DAILY [facility] Last Admin: 05/26/16 10:43 Dose: Not Given Montelukast Sodium (Singulair) 10 mg PO HS [facility] Last Admin: 05/25/16 21:33 Dose: 10 mg Morphine Sulfate (Morphine) 4 mg IVP Q4 PRN PRN Reason: Pain, moderate (4-7) Pneumococcal Polyvalent Vaccine (Pneumovax 23 Vaccine) 0.5 ml IM .ONCE ONE Stop: 05/27/16 20:01 Prednisone (Prednisone Tab) 40 mg PO DAILY [facility] Rivaroxaban (Xarelto) 20 mg PO DAILY [facility] Last Admin: 05/26/16 13:37 Dose: 20 mg Rosuvastatin Calcium (Crestor) 20 mg PO HS [facility] Last Admin: 05/25/16 21:34 Dose: 20 mg Fluticasone/Salmeterol (Advair Diskus 250/50) 2 puff IH Q12 [facility] Last Admin: 05/26/16 08:20 Dose: 2 puff - Labs Labs: 05/26/16 13:54 05/26/16 13:54 PT 11.9 SECONDS (9.7-12.2) 05/25/16 15:27 INR 1.1 05/25/16 15:27 APTT 62 SECONDS (21-34) H 05/25/16 15:27 - Constitutional Appears: Non-toxic, In Acute Distress - Head Exam Head Exam: ATRAUMATIC, NORMOCEPHALIC - Eye Exam Eye Exam: Normal appearance Pupil Exam: PERRL - ENT Exam ENT Exam: Mucous Membranes Moist - Respiratory Exam Respiratory Exam: Clear to Ausculation Bilateral, NORMAL BREATHING PATTERN - Cardiovascular Exam Cardiovascular Exam: +S1, +S2 - GI/Abdominal Exam GI & Abdominal Exam: Soft, Normal Bowel Sounds - Extremities Exam Extremities Exam: Tenderness Additional comments: Erythema and swelling that extends from RLE thigh and distally. - Neurological Exam Neurological Exam: Alert, Awake - Skin Skin Exam: Dry, Warm Assessment and Plan - Assessment and Plan (Free Text) Assessment: Right lower extremity swelling/pain - likely secondary to known DVT vs cellulitis - Pain, erythema and swelling - afebrile, but admits to chills/night sweats - Leukocytosis with bandemia secondary to cellulitis vs steroid use Diagnostic studies - Art duplex study negative 05/25 - Repeat venous doppler 05/26 - shows known clot that extends at least to iliac vein on right Consults - Vascular surgery (Jordan) - would recommend thrombolysis but will hold for elevated CR, will continue to follow - ID (Salma) - recommends continuing Zosyn and adding Azactam. Also to get echo and CT abd pelvis Meds - Given Ancef and Vancomycin 05/25 in ED - Cont Zosyn, renal dose Q8H - Will start Azactam 1gm Q12H - Morphine 4mg Q4h PRN for pain - Procalcitonin - f/u - Continue to monitor labs - Elevate leg Bacteremia - Blood cx (05/25) - gram neg rods - ID (Salma) consulted - Cont Zosyn, renal dose Q8H - Will start Azactam 1gm Q12H - Afebrile Acute renal failure on Chronic Kidney disease - Nephro Arnulfo) consulted - help appreciated, f/u recs - Cr trending up, 2.3 today. 1.5 on admission - Gently IVF hydration considering hx of HF. NS at 75 cc/hr Leukosytosis - secondary to cellulitis vs steroid use - Abx as above - monitor for fever - AM labs COPD/asthma - Duonebs 3ml INH q6h [facility] - Home Advair - Solumedrol 40mg IV q12h - home Singulair 10mg PO HS Biventricular heart failure - 01/2016 ECHO- LV EF 60-65%, mild pulmonary HTN (see full report) - Evaluated by Dr Rodriguez on last admission for NSTEMI - home lasix - held for elevated Cr DM - A1C 11.0 - home regimen of Levemir and Novolog - ISS - Heart healthy/diabetic diet HTN - Continue home meds - Monitor vitals q4h and adjust as needed CAD - hx NSTEMI - Crestor 20mg PO HS Prophylactic measures - SCDs contraindicated due to DVT - Xarelto 20mg PO daily - ASA 81mg PO daily - Pepcid 20mg PO daily <Heaven Guerra V - Last Filed: 05/26/16 21:59> Objective - Vital Signs/Intake and Output Vital Signs (last 24 hours): Temp Pulse Resp BP Pulse Ox 98.5 F 88 20 111/71 98 05/26/16 17:45 05/26/16 17:45 05/26/16 17:45 05/26/16 17:45 05/26/16 17:45 Intake and Output: 05/26/16 05/27/16 18:59 06:59 Intake Total 1050 Balance 1050 - Medications Medications: Current Medications Albuterol/Ipratropium (Duoneb 3 Mg/0.5 Mg (3 Ml) Ud) 3 ml INH RQ6 PRN PRN Reason: Shortness of Breath Last Admin: 05/26/16 13:46 Dose: 3 ml Aspirin (Aspirin Chewable) 81 mg PO DAILY [facility] Last Admin: 05/26/16 10:43 Dose: 81 mg Docusate Sodium (Colace) 100 mg PO BID [facility] Last Admin: 05/26/16 16:59 Dose: 100 mg Famotidine (Pepcid) 20 mg PO DAILY [facility] Last Admin: 05/26/16 10:43 Dose: 20 mg Furosemide (Lasix) 40 mg IVP DAILY [facility] Piperacillin Sod/Tazobactam Sod (Zosyn 2.25 Gm Iv Premix) 50 mls @ 100 mls/hr IVPB Q8H [facility] Last Admin: 05/26/16 13:49 Dose: 100 mls/hr Sodium Chloride (Sodium Chloride 0.9%) 1,000 mls @ 75 mls/hr IV .[id number] [facility] Last Admin: 05/26/16 16:57 Dose: 75 mls/hr Aztreonam 1 gm/ Sodium (Chloride) 100 mls @ 100 mls/hr IVPB Q12H [facility] Last Admin: 05/26/16 16:11 Dose: 100 mls/hr Insulin Aspart (Novolog) 12 unit SC ACTID [facility] Last Admin: 05/26/16 16:34 Dose: 12 unit Insulin Detemir (Levemir) 30 unit SC Q12 [facility] Insulin Human Regular (Novolin R) 0 unit SC ACHS [facility] PRN Reason: Protocol Last Admin: 05/26/16 16:33 Dose: 6 unit Losartan Potassium (Cozaar) 25 mg PO DAILY [facility] Last Admin: 05/26/16 10:43 Dose: Not Given Montelukast Sodium (Singulair) 10 mg PO HS [facility] Last Admin: 05/25/16 21:33 Dose: 10 mg Morphine Sulfate (Morphine) 4 mg IVP Q4 PRN PRN Reason: Pain, moderate (4-7) Last Admin: 05/26/16 20:13 Dose: 4 mg Pneumococcal Polyvalent Vaccine (Pneumovax 23 Vaccine) 0.5 ml IM .ONCE ONE Stop: 05/27/16 20:01 Prednisone (Prednisone Tab) 40 mg PO DAILY [facility] Rivaroxaban (Xarelto) 20 mg PO DAILY [facility] Last Admin: 05/26/16 13:37 Dose: 20 mg Rosuvastatin Calcium (Crestor) 20 mg PO HS [facility] Last Admin: 05/25/16 21:34 Dose: 20 mg Fluticasone/Salmeterol (Advair Diskus 250/50) 2 puff IH Q12 [facility] Last Admin: 05/26/16 08:20 Dose: 2 puff - Labs Labs: 05/26/16 13:54 05/26/16 13:54 PT 11.9 SECONDS (9.7-12.2) 05/25/16 15:27 INR 1.1 05/25/16 15:27 APTT 62 SECONDS (21-34) H 05/25/16 15:27 Attending/Attestation - Attestation I have personally seen and examined this patient.: Yes I have fully participated in the care of the patient.: Yes I have reviewed all pertinent clinical information, including history, physical exam and plan: Yes Notes (Text): Patient seen, examined and case discussed with day-time resident. Patient seen on . Patient is asymptomatic of hyperkalemia. Patient ordered for duonebs, Kaxyexlate, and recieved insulin in the morning. Ordered for EKG. Patient ordered to transfer to telemetry. Patient has right lower extremity and mild associiated rubor; patient has a confirmed DVT that extends past the groin recommended for thrombolysis. However , patient's remain is elevated today. Patient has a history of nephrotic syndrome. Patient placed on gentle IV hydration and losartan discontinued side effect of hyperkalemia. Patient's blood cultures revealed bacteremia, pending speciation, infectious disease consulted; patient is currently on renal dosed Zosyn and Aztroneam started. Patient also has elevated procalcitonin which resulted today indicating bacterial source of infection. Pending echocardiogram. Patient refuses CT abd/pelvis at this time. Patient given Morphine 4mg IV Q4 hr PRN for pain related to the DVT. Nephrology (Dr. Rhoades) pending recommendations Leukocytosis partially influenced by IV solumedrol given patient's copd; however bandemia given suspicion for infectious cause inaddition to blood cultures and procalcitonin which resulted confirming bacterial source. Patient's Solumedrol d/c; patient does not appear in COPD excerbation, and started on PO prednisone. Patient's diabetes is uncontrolled; influenced by both bacterial source of infection and IV steroids; started on coverage sliding scale and levemir adjusted for tonight. Patient is currently on xarelto and history of non-compliance in the past.
[2016-05-26] MEDS: Aztreonam 1 GM in Sodium Chloride 0.9% 100 ML IVPB SCH (16:11)
[2016-05-26] MEDS ORDERED: Iohexol 240 (50 ml) PO ONE (17:00)
[2016-05-26 21:02] LABS: RBC URINE 5 /hpf (0-3); URINE BACTERIA RARE (<OCC); URINE BILIRUBIN NEGATIVE (NEGATIVE); URINE BLOOD 1+ (NEGATIVE); URINE COLOR Yellow (YELLOW); URINE GLUCOSE (UA) 3+ mg/dL (Normal); URINE KETONE NEGATIVE (NEGATIVE); URINE LEUKOCYTE ESTERASE NEG Leu/uL (Negative); URINE PROTEIN 2+ mg/dL (NEGATIVE); URINE UROBILINOGEN NORMAL mg/dL (0.2-1.0); WBC URINE 2 /hpf (0-5)
[2016-05-27] MEDS: Piperacill/Tazo 2.25gm in Dex 50 ML IVPB SCH ×3 (02:35→20:30)
[2016-05-27] MEDS: Aztreonam 1 GM in Sodium Chloride 0.9% 100 ML IVPB SCH ×2 (04:03→16:52)
[2016-05-27] MEDS: Sodium Chloride 0.9% 1,000 ML IV SCH ×2 (06:55→13:34)
--- NOTE | 2016-05-27 07:22 | CP.PCM.PN ---
Subjective - Date & Time of Evaluation Date of Evaluation: 05/27/16 Time of Evaluation: 07:05 - Subjective Subjective: Vascular Surgery Pt S&E, NAEO. C/O pain up to mid R thigh but overall slight pain improvement since yesterday. No other C/O. Objective - Vital Signs/Intake and Output Vital Signs (last 24 hours): Temp Pulse Resp BP Pulse Ox 97.9 F 84 20 105/67 95 05/26/16 23:25 05/27/16 01:59 05/26/16 23:25 05/26/16 23:25 05/26/16 23:25 Intake and Output: 05/27/16 05/27/16 06:59 18:59 Intake Total 700 Output Total 300 Balance 400 - Medications Medications: Current Medications Albuterol/Ipratropium (Duoneb 3 Mg/0.5 Mg (3 Ml) Ud) 3 ml INH RQ6 PRN PRN Reason: Shortness of Breath Last Admin: 05/26/16 13:46 Dose: 3 ml Aspirin (Aspirin Chewable) 81 mg PO DAILY [facility] Last Admin: 05/26/16 10:43 Dose: 81 mg Docusate Sodium (Colace) 100 mg PO BID [facility] Last Admin: 05/26/16 16:59 Dose: 100 mg Famotidine (Pepcid) 20 mg PO DAILY [facility] Last Admin: 05/26/16 10:43 Dose: 20 mg Furosemide (Lasix) 40 mg IVP DAILY [facility] Piperacillin Sod/Tazobactam Sod (Zosyn 2.25 Gm Iv Premix) 50 mls @ 100 mls/hr IVPB Q8H [facility] Last Admin: 05/27/16 02:35 Dose: 100 mls/hr Sodium Chloride (Sodium Chloride 0.9%) 1,000 mls @ 75 mls/hr IV .[id number] [facility] Last Admin: 05/27/16 06:55 Dose: Not Given Aztreonam 1 gm/ Sodium (Chloride) 100 mls @ 100 mls/hr IVPB Q12H [facility] Last Admin: 05/27/16 04:03 Dose: 100 mls/hr Insulin Aspart (Novolog) 12 unit SC ACTID [facility] Last Admin: 05/26/16 16:34 Dose: 12 unit Insulin Detemir (Levemir) 30 unit SC Q12 [facility] Last Admin: 05/26/16 22:40 Dose: 30 unit Insulin Human Regular (Novolin R) 0 unit SC ACHS [facility] PRN Reason: Protocol Last Admin: 05/26/16 22:00 Dose: 2 unit Losartan Potassium (Cozaar) 25 mg PO DAILY [facility] Last Admin: 05/26/16 10:43 Dose: Not Given Montelukast Sodium (Singulair) 10 mg PO HS [facility] Last Admin: 05/26/16 22:40 Dose: 10 mg Morphine Sulfate (Morphine) 4 mg IVP Q4 PRN PRN Reason: Pain, moderate (4-7) Last Admin: 05/27/16 04:11 Dose: 4 mg Pneumococcal Polyvalent Vaccine (Pneumovax 23 Vaccine) 0.5 ml IM .ONCE ONE Stop: 05/27/16 20:01 Prednisone (Prednisone Tab) 40 mg PO DAILY [facility] Rivaroxaban (Xarelto) 20 mg PO DAILY [facility] Last Admin: 05/26/16 13:37 Dose: 20 mg Rosuvastatin Calcium (Crestor) 20 mg PO HS [facility] Last Admin: 05/25/16 21:34 Dose: 20 mg Fluticasone/Salmeterol (Advair Diskus 250/50) 2 puff IH Q12 [facility] Last Admin: 05/26/16 08:20 Dose: 2 puff - Labs Labs: 05/26/16 13:54 05/26/16 13:54 PT 11.9 SECONDS (9.7-12.2) 05/25/16 15:27 INR 1.1 05/25/16 15:27 APTT 62 SECONDS (21-34) H 05/25/16 15:27 - Constitutional Appears: Non-toxic, No Acute Distress - Head Exam Head Exam: ATRAUMATIC, NORMOCEPHALIC - Eye Exam Eye Exam: EOMI. absent: Scleral icterus - Respiratory Exam Respiratory Exam: NORMAL BREATHING PATTERN. absent: Respiratory Distress - GI/Abdominal Exam GI & Abdominal Exam: Soft. absent: Distended, Tenderness - Extremities Exam Additional comments: RLE TTP, tender on dorsiflexion, swollen up to midthigh LLE normal, non tender - Neurological Exam Neurological Exam: Alert, Awake, Oriented x3 - Skin Skin Exam: Dry, Warm Assessment and Plan - Assessment and Plan (Free Text) Assessment: 45M with Recurrent RLE DVT to iliac Plan: If Kidney function improves consider endovascular thrombolysis. Heparin and elevate the limb. Monitor Kidney function. D/W Dr. Jordan Crowell PGY3
[2016-05-27 08:05] LABS: BASO # 0.1 K/uL (0.0-0.2); BASO % 0.3 % (0.0-2.0); HEMATOCRIT 44.7 % (35.0-51.0); LYMPH # 1.9 K/uL (1.0-4.3); LYMPH % 4.4 % (20.0-40.0); MEAN CELL VOLUME 89.4 fL (80.0-94.0); MEAN CORPUSCULAR HEMOGLOBIN 29.2 pg (27.0-31.0); MEAN CORPUSCULAR HGB CONC 32.6 g/dL (33.0-37.0); MEAN PLATELET VOLUME 10.4 fL (7.2-11.7); MONO % 6.8 % (0.0-10.0); PLATELET COUNT 103 K/uL (130-400); RED CELL DISTRIBUTION WIDTH 16.7 % (11.5-14.5)
[2016-05-27 08:09] LABS: WHITE BLOOD COUNT 43.8 K/uL (4.8-10.8)
[2016-05-27 08:25] LABS: BILIRUBIN,TOTAL 0.8 mg/dL (0.2-1.3); TOTAL PROTEIN 6.1 g/dL (6.3-8.3)
[2016-05-27 08:26] LABS: CALCIUM 7.7 mg/dl (8.6-10.4); MAGNESIUM 1.8 mg/dL (1.6-2.3); PHOSPHOROUS 5.5 mg/dL (2.5-4.5)
[2016-05-27 08:29] LABS: POTASSIUM 6.2 mmol/L (3.6-5.2)
[2016-05-27] MEDS ORDERED: Sodium Chloride 0.9% 500 ML IV ONE (08:31)
[2016-05-27] MEDS ORDERED: Sod Polystyrene Sulf 15 gm/60 ml Oral Susp PO STA (08:35)
[2016-05-27] MEDS ORDERED: Albuterol-Ipratrop 3 mg / 0.5 (3 ml) UD INH STA (08:35)
[2016-05-27 08:46] LABS: ABG ALLEN TEST POS; DRAW SITE RRA
--- NOTE | 2016-05-27 08:47 | CP.PCM.PN ---
<Kishor Escobar - Last Filed: 05/27/16 08:44> Subjective - Date & Time of Evaluation Date of Evaluation: 05/27/16 Time of Evaluation: 08:00 - Subjective Subjective: This is a note for code sepsis at 8:35AM for Dr. Lubin patient and Dr. Santiago The pt vital signs were as follows: 129/78, Sat 97% on 2L NC, HR 115, temp 99.7 The patient was ANOx3; resting comfortably in bed Labs were as follows: CBC:43.8 WBC which is down from yesterday; platelets low at 103 but largely unchanged from yesterday CMP: Na 128, 6.2K, 91cl, BUN 65 and creat 2.9 EKG: Sinus tach with peaked t waves The following orders were placed: -The patient is already on broad spectrum antibiotics from admission which will be continued; Dr. Marsh ID is on board and is aware. -stat kayhexalate, repeat BCx x 2, ABG w/ shock panel which will be followed up in 3 hours, duonebs, insulin stat with d5w, and 500cc bolus because the patient has a known history of CHF. -labs will be redrawn ABG shock panel to see lactate downtrending later in the day to check the K which was elevated at 6.2 for 12:30pm draw; will reasses then Dr. Kishor Escobar Hospitalist Service PGY1 Discussed with Dr. Guerra, and Dr Santiago Objective - Vital Signs/Intake and Output Vital Signs (last 24 hours): Temp Pulse Resp BP Pulse Ox 97.9 F 84 20 105/67 95 05/26/16 23:25 05/27/16 01:59 05/26/16 23:25 05/26/16 23:25 05/26/16 23:25 Intake and Output: 05/27/16 05/27/16 06:59 18:59 Intake Total 700 Output Total 300 Balance 400 - Medications Medications: Current Medications Albuterol/Ipratropium (Duoneb 3 Mg/0.5 Mg (3 Ml) Ud) 3 ml INH RQ6 PRN PRN Reason: Shortness of Breath Last Admin: 05/26/16 13:46 Dose: 3 ml Aspirin (Aspirin Chewable) 81 mg PO DAILY ANABELLA Last Admin: 05/26/16 10:43 Dose: 81 mg Docusate Sodium (Colace) 100 mg PO BID [facility] Last Admin: 05/26/16 16:59 Dose: 100 mg Famotidine (Pepcid) 20 mg PO DAILY [facility] Last Admin: 05/26/16 10:43 Dose: 20 mg Furosemide (Lasix) 40 mg IVP DAILY [facility] Piperacillin Sod/Tazobactam Sod (Zosyn 2.25 Gm Iv Premix) 50 mls @ 100 mls/hr IVPB Q8H [facility] Last Admin: 05/27/16 02:35 Dose: 100 mls/hr Sodium Chloride (Sodium Chloride 0.9%) 1,000 mls @ 75 mls/hr IV .[id number] [facility] Last Admin: 05/27/16 06:55 Dose: Not Given Aztreonam 1 gm/ Sodium (Chloride) 100 mls @ 100 mls/hr IVPB Q12H [facility] Last Admin: 05/27/16 04:03 Dose: 100 mls/hr Sodium Chloride (Sodium Chloride 0.9%) 500 mls @ 1,000 mls/hr IV .Q30M ONE Stop: 05/27/16 09:00 Calcium Gluconate 4.65 meq/ (Sodium Chloride) 110 mls @ 100 mls/hr IVPB ONCE ONE Stop: 05/27/16 09:36 Insulin Aspart (Novolog) 12 unit SC ACTID [facility] Last Admin: 05/26/16 16:34 Dose: 12 unit Insulin Detemir (Levemir) 30 unit SC Q12 [facility] Last Admin: 05/26/16 22:40 Dose: 30 unit Insulin Human Regular (Novolin R) 0 unit SC ACHS [facility] PRN Reason: Protocol Last Admin: 05/26/16 22:00 Dose: 2 unit Losartan Potassium (Cozaar) 25 mg PO DAILY [facility] Last Admin: 05/26/16 10:43 Dose: Not Given Montelukast Sodium (Singulair) 10 mg PO HS [facility] Last Admin: 05/26/16 22:40 Dose: 10 mg Morphine Sulfate (Morphine) 4 mg IVP Q4 PRN PRN Reason: Pain, moderate (4-7) Last Admin: 05/27/16 04:11 Dose: 4 mg Pneumococcal Polyvalent Vaccine (Pneumovax 23 Vaccine) 0.5 ml IM .ONCE ONE Stop: 05/27/16 20:01 Prednisone (Prednisone Tab) 40 mg PO DAILY [facility] Rivaroxaban (Xarelto) 20 mg PO DAILY [facility] Last Admin: 05/26/16 13:37 Dose: 20 mg Rosuvastatin Calcium (Crestor) 20 mg PO HS [facility] Last Admin: 05/25/16 21:34 Dose: 20 mg Fluticasone/Salmeterol (Advair Diskus 250/50) 2 puff IH Q12 [facility] Last Admin: 05/26/16 08:20 Dose: 2 puff - Labs Labs: 05/27/16 07:46 05/27/16 07:46 PT 11.9 SECONDS (9.7-12.2) 05/25/16 15:27 INR 1.1 05/25/16 15:27 APTT 62 SECONDS (21-34) H 05/25/16 15:27 <Heaven Guerra V - Last Filed: 05/27/16 15:59> Objective - Vital Signs/Intake and Output Vital Signs (last 24 hours): Temp Pulse Resp BP Pulse Ox 99 F 89 20 122/75 97 05/27/16 13:19 05/27/16 13:19 05/27/16 13:19 05/27/16 13:19 05/27/16 13:19 Intake and Output: 05/27/16 05/27/16 06:59 18:59 Intake Total 700 Output Total 300 Balance 400 - Medications Medications: Current Medications Albuterol/Ipratropium (Duoneb 3 Mg/0.5 Mg (3 Ml) Ud) 3 ml INH RQ6 PRN PRN Reason: Shortness of Breath Last Admin: 05/26/16 13:46 Dose: 3 ml Aspirin (Aspirin Chewable) 81 mg PO DAILY [facility] Last Admin: 05/27/16 10:40 Dose: 81 mg Docusate Sodium (Colace) 100 mg PO BID [facility] Last Admin: 05/27/16 10:37 Dose: 100 mg Famotidine (Pepcid) 20 mg PO DAILY [facility] Last Admin: 05/27/16 10:37 Dose: 20 mg Piperacillin Sod/Tazobactam Sod (Zosyn 2.25 Gm Iv Premix) 50 mls @ 100 mls/hr IVPB Q8H [facility] Last Admin: 05/27/16 13:13 Dose: 100 mls/hr Sodium Chloride (Sodium Chloride 0.9%) 1,000 mls @ 75 mls/hr IV .[id number] [facility] Last Admin: 05/27/16 13:34 Dose: Not Given Aztreonam 1 gm/ Sodium (Chloride) 100 mls @ 100 mls/hr IVPB Q12H [facility] Last Admin: 05/27/16 04:03 Dose: 100 mls/hr Heparin Sodium/Sodium Chloride (Heparin 07306 Units/250ml 1/2 Normal Saline) 250 mls @ 16.057 mls/hr IV .[id number] PRN; Protocol; 12 UNITS/KG/HR PRN Reason: PROTOCOL Last Admin: 05/27/16 14:03 Dose: 16.057 mls/hr Metronidazole (Flagyl) 100 mls @ 100 mls/hr IVPB Q12H [facility] Insulin Aspart (Novolog) 12 unit SC ACTID [facility] Last Admin: 05/27/16 12:11 Dose: 12 unit Insulin Detemir (Levemir) 30 unit SC Q12 [facility] Last Admin: 05/27/16 10:44 Dose: Not Given Insulin Human Regular (Novolin R) 0 unit SC ACHS [facility] PRN Reason: Protocol Last Admin: 05/27/16 12:24 Dose: 5 unit Montelukast Sodium (Singulair) 10 mg PO HS [facility] Last Admin: 05/26/16 22:40 Dose: 10 mg Morphine Sulfate (Morphine) 4 mg IVP Q4 PRN PRN Reason: Pain, moderate (4-7) Last Admin: 05/27/16 10:38 Dose: 4 mg Pneumococcal Polyvalent Vaccine (Pneumovax 23 Vaccine) 0.5 ml IM .ONCE ONE Stop: 05/27/16 20:01 Prednisone (Prednisone Tab) 40 mg PO DAILY [facility] Last Admin: 05/27/16 10:37 Dose: 40 mg Fluticasone/Salmeterol (Advair Diskus 250/50) 2 puff IH Q12 [facility] Last Admin: 05/27/16 10:58 Dose: Not Given - Labs Labs: 05/27/16 09:38 05/27/16 12:37 PT 13.9 SECONDS (9.7-12.2) H 05/27/16 09:38 INR 1.2 03/10/17 09:38 APTT 86 SECONDS (21-34) H D 05/27/16 09:38 Attending/Attestation - Attestation I have personally seen and examined this patient.: Yes I have fully participated in the care of the patient.: Yes I have reviewed all pertinent clinical information, including history, physical exam and plan: Yes Notes (Text): This is a note for code sepsis at 8:35AM called this morning. Patient is admitted for for sepsis and meets criteria for severe sepsis. Critieria: WBC: 43.8, HR>90, Cr> 2.0, platelets 103 and blood culture: gram negative X2, microbio called speciation wont be available until tomorrow . Pending echocardiogram and CT abdomen/Pelvis PO; patient refused CT scan last night, we spoke the patient this morning given his initial refusal but concerned for contrast affecting kidney function. The pt vital signs were as follows: 129/78, Sat 97% on 2L NC, HR 115, temp 99.7 at code sepsis The patient was ANOx3; resting comfortably in bed Labs were as follows this morning CBC:43.8 WBC which is down from yesterday; platelets low at 103 but largely unchanged from yesterday CMP: Na 128, 6.2K, 91cl, BUN 65 and creat 2.9 EKG: Sinus tach with peaked t waves Per orders: -The patient is already on broad spectrum antibiotics from admission which will be continued; Dr. Salma ARCEO is on board and is aware (earlier dose of Aztronam and IV zosyn) given this morning -stat kayhexalate, repeat BCx x 2 today, ABG w/ shock panel which will be followed up in 3 hours, duonebs, insulin stat with d5w, and 500cc bolus because the patient has a known history of CHF; repeat BMP q 4hours. * pH: 7.24 (low), Lactate: 1.0 -labs to be redrawn ABG shock panel to see lactate downtrending later in the day to check the K+ which was elevated at 6.2 for 11:30AM.
[2016-05-27] MEDS: (Novolog) Insulin Aspart, Recombinant 100 u/ml 10 ml vial SC SCH ×3 (08:52→17:04)
--- NOTE | 2016-05-27 09:39 | RAD ---
HISTORY: Sepsis patient. Technique: Single view portable semi erect @ 09:00 COMPARISON: May 25, 2016. FINDINGS: LUNGS: No active pulmonary disease. PLEURA: No significant pleural effusion identified, no pneumothorax apparent. CARDIOVASCULAR: Cardiomegaly, interval improvement in interstitial lung disease. OSSEOUS STRUCTURES: No significant abnormalities. VISUALIZED UPPER ABDOMEN: Normal. OTHER FINDINGS: None. IMPRESSION: No active disease.
[2016-05-27 09:44] LABS: NEUTROPHIL 89 % (50-75); TOTAL CELLS COUNTED 100
[2016-05-27 09:45] LABS: LARGE PLATELETS PRESENT
[2016-05-27] MEDS: (Novolin R) Insulin Human Regular 100 units/ml vial SC SCH ×4 (09:48→21:48)
[2016-05-27 10:02] LABS: BASO # 0.1 K/uL (0.0-0.2); BASO % 0.1 % (0.0-2.0); EOS % 0.1 % (0.0-4.0); HEMATOCRIT 44.2 % (35.0-51.0); LYMPH # 2.6 K/uL (1.0-4.3); LYMPH % 5.9 % (20.0-40.0); MEAN CELL VOLUME 89.1 fL (80.0-94.0); MEAN CORPUSCULAR HGB CONC 32.6 g/dL (33.0-37.0); MONO # 2.9 K/uL (0.0-0.8); MONO % 6.6 % (0.0-10.0)
[2016-05-27 10:03] LABS: WHITE BLOOD COUNT 43.3 K/uL (4.8-10.8)
--- NOTE | 2016-05-27 10:03 | US ---
HISTORY: renal failure COMPARISON: None. TECHNIQUE: Sonographic evaluation of the retroperitoneum. FINDINGS: RIGHT KIDNEY:: Measures 14.1 x 6.3cm. Normal echogenicity. No calculus, mass, or hydronephrosis. LEFT KIDNEY:: Measures 14.4 x 7.9cm. Normal echogenicity. No calculus, mass, or hydronephrosis. AORTA:: No aneurysmal dilatation. IVC:: Unremarkable. BLADDER:: Urinary bladder assessment: Prevoid volume: 186.1 ml Postvoid residual: No postvoid residual. Intrinsic, mural, perivesical abnormalities: None Ureteral jets: Not visualize, documented bilaterally. OTHER FINDINGS: None . IMPRESSION: No significant or acute findings to account for/ related to the clinical presentation.
[2016-05-27 10:12] LABS: INR 1.2
--- NOTE | 2016-05-27 10:13 | VASCLAB ---
PROCEDURE: Right Lower Extremity Venous Duplex Exam. HISTORY: DVT, evaluate for progression of DVT PRIORS: None. TECHNIQUE: Right common femoral, femoral, popliteal and posterior tibial, peroneal and great saphenous veins were evaluated. Flow was assessed with color Doppler, compressibility, assessment of phasic flow and augmentation response. Report prepared by ZOË Escobedo, RVT FINDINGS: RIGHT: 1. Common Femoral Vein: 1.1. Compressibility - Partial: Thrombus - Chronic: Flow - Reduced : Augmentation -Reduced: Reflux - None. 2. Femoral Vein: 2.1. Compressibility - Fully compressible: Thrombus - None: Flow - Phasic: Augmentation -Normal: Reflux - None. 3. Popliteal Vein: 3.1. Compressibility - Fully compressible: Thrombus - None: Flow - Phasic: Augmentation -Normal: Reflux - None. 4. Posterior Tibial Vein: 4.1. Compressibility - Fully compressible: Thrombus - None: Flow - Phasic: Augmentation -Normal: Reflux - None. 5. Peroneal Vein: 5.1. Compressibility - Fully compressible: Thrombus - None: Flow - Phasic: Augmentation -Normal: Reflux - None. 6. Great Saphenous Vein: 6.1. Compressibility - Fully compressible: Thrombus -None: Flow - Phasic: Augmentation - Normal: Reflux - None. OTHER FINDINGS: MICHELLE Wallis notified about the findings. There is no significant change compared to last study of 05/11/2016. 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 Normal venous flow noted in the left common femoral vein.
[2016-05-27] MEDS: Insulin Detemir 100 units/ml Vial (Levemir) SC SCH ×2 (10:44→21:58)
[2016-05-27] MEDS: Fluticasone-Salmeterol 250-50mcg Diskus IH SCH (10:58)
[2016-05-27 11:17] LABS: POTASSIUM 5.5 mmol/L (3.6-5.2)
[2016-05-27 11:19] LABS: BILIRUBIN,TOTAL 0.8 mg/dL (0.2-1.3)
[2016-05-27 11:20] LABS: ALB/GLOB RATIO 0.8 (1.0-2.1); MAGNESIUM 1.9 mg/dL (1.6-2.3); PHOSPHOROUS 5.5 mg/dL (2.5-4.5); TOTAL PROTEIN 6.1 g/dL (6.3-8.3)
[2016-05-27 11:36] LABS: RBC URINE 9 /hpf (0-3); URINE BILIRUBIN NEGATIVE (NEGATIVE); URINE BLOOD 1+ (NEGATIVE); URINE COLOR Yellow (YELLOW); URINE GLUCOSE (UA) 3+ mg/dL (Normal); URINE KETONE NEGATIVE (NEGATIVE); URINE LEUKOCYTE ESTERASE NEG Leu/uL (Negative); URINE PROTEIN 2+ mg/dL (NEGATIVE); URINE UROBILINOGEN NORMAL mg/dL (0.2-1.0); WBC URINE 3 /hpf (0-5)
--- NOTE | 2016-05-27 11:59 | PCM.SEPTIC ---
<Thelma Santiago DO - Last Filed: 05/27/16 11:55> Sepsis Progress Note - Reassessment Type Date of Evaluation: 05/27/16 Time of Evaluation: 11:30 Reassessment Type: Non-invasive reassessment - Non Invasive Reassessment Were the most recent vital sign reviewed: Yes Vital Sign (Latest): Temp Pulse Resp BP Pulse Ox 98.7 F 92 H 20 126/81 95 05/27/16 09:16 05/27/16 09:16 05/27/16 09:16 05/27/16 09:16 05/27/16 09:16 Cardiovascular: Yes: Tachycardia Respiratory: Yes: Decreased Breath Sounds (poor air entry). No: Stridor, Wheezing Capillary Refill: Normal (Less than 2 sec) Skin: Warm, Rash (erythema right lower extremity) <Heaven Guerra V - Last Filed: 05/27/16 16:19> Sepsis Progress Note - Non Invasive Reassessment Vital Sign (Latest): Temp Pulse Resp BP Pulse Ox 99 F 89 20 122/75 97 05/27/16 13:19 05/27/16 13:19 05/27/16 13:19 05/27/16 13:19 05/27/16 13:19 Attending/Attestation - Attestation I have personally seen and examined this patient.: Yes I have fully participated in the care of the patient.: Yes I have reviewed all pertinent clinical information, including history, physical exam and plan: Yes Notes (Text): This is a note for code sepsis at 8:35AM called this morning; follow-up at 11: 30AM. Patient is admitted for for sepsis and meets criteria for severe sepsis. Critieria: WBC: 43.8, HR>90, Cr> 2.0, platelets 103 and blood culture: gram negative X2, microbio called speciation wont be available until tomorrow . Pending echocardiogram and CT abdomen/Pelvis PO; patient refused CT scan last night, we spoke the patient this morning given his initial refusal but concerned for contrast affecting kidney function. The pt vital signs were as follows: 129/78, Sat 97% on 2L NC, HR 115, temp 99.7 at code sepsis The patient was ANOx3; resting comfortably in bed Labs were as follows this morning CBC:43.8 WBC which is down from yesterday; platelets low at 103 but largely unchanged from yesterday CMP: Na 128, 6.2K, 91cl, BUN 65 and creat 2.9 EKG: Sinus tach with peaked t waves Per orders: -The patient is already on broad spectrum antibiotics from admission which will be continued; Dr. Marsh ID is on board and is aware (earlier dose of Aztronam and IV zosyn) given this morning -stat kayhexalate, repeat BCx x 2 collected, ABG w/ shock panel which will be followed up in 3 hours, duonebs, insulin stat with d5w, and 500cc bolus because the patient has a known history of CHF; repeat BMP completed * pH: 7.24 (low), Lactate: 1.0--> pH: 7.23, lactate: 1.0 (re-evaluated) * K improved from 6.4 to 5.5 to 5.4 * Nephrology consulted (Dr. Garcia) who I spoke with and will see the patient. * Chest xray: no active disease, Bladder US: negative; Pending Echo and CT abdomen?pelvis * Discussed with nurse, Priti, patient has 3 working peripheral lines; unable to place PICC given patient is bactermic and do not want to seed infection. * Infectious Disease: Dr Marsh (on board) recommended for ICU consult * Note: procalcitonin: 16--->31.81; urine culture no growth
--- NOTE | 2016-05-27 12:06 | PCM.SEPTIC ---
<Kishor Snow - Last Filed: 05/27/16 12:04> Sepsis Progress Note - Reassessment Type Date of Evaluation: 05/27/16 Time of Evaluation: 07:00 Reassessment Type: Non-invasive reassessment - Non Invasive Reassessment Were the most recent vital sign reviewed: Yes Vital Sign (Latest): Temp Pulse Resp BP Pulse Ox 98.7 F 92 H 20 126/81 95 05/27/16 09:16 05/27/16 09:16 05/27/16 09:16 05/27/16 09:16 05/27/16 09:16 Cardiovascular: Yes: Tachycardia Respiratory: Yes: Normal Breath Sounds Capillary Refill: Normal (Less than 2 sec) Pulses: Normal Radial, Normal Dorsalis Pedis, Normal Posterior Tibialis Skin: Warm - Invasive Reassessment (complete 2 of 4) Was a Central Venous Pressure Measurement obtained within 6 Hours after the presentation of septic shock: No Was a central venous oxygen measurement obtained within 6 hours after the presentation of septic shock: Yes Sv02: 98 Was a bedside cardiovascular ultrasound performed within 6 hours after the presentation of septic shock: No Was a passive leg raise performed or was a fluid challenge performed within 6 hrs of the initial fluid bolus: Yes Passive Leg Raise Result: Not Applicable Fluid Challenge performed: Yes <Heaven Guerra V - Last Filed: 05/27/16 15:59> Sepsis Progress Note - Non Invasive Reassessment Vital Sign (Latest): Temp Pulse Resp BP Pulse Ox 99 F 89 20 122/75 97 05/27/16 13:19 05/27/16 13:19 05/27/16 13:19 05/27/16 13:19 05/27/16 13:19 Attending/Attestation - Attestation I have personally seen and examined this patient.: Yes I have fully participated in the care of the patient.: Yes I have reviewed all pertinent clinical information, including history, physical exam and plan: Yes Notes (Text): Patient is admitted for for sepsis and meets criteria for severe sepsis. Was assessed this morning under Dr. Snow progress note for initial eval for code sepsis. Critieria: WBC: 43.8, HR>90, Cr> 2.0, platelets 103 and blood culture: gram negative X2, microbio called speciation wont be available until tomorrow . Pending echocardiogram and CT abdomen/Pelvis PO; patient refused CT scan last night, we spoke the patient this morning given his initial refusal but concerned for contrast affecting kidney function. The pt vital signs were as follows: 129/78, Sat 97% on 2L NC, HR 115, temp 99.7 at code sepsis The patient was ANOx3; resting comfortably in bed Labs were as follows this morning CBC:43.8 WBC which is down from yesterday; platelets low at 103 but largely unchanged from yesterday CMP: Na 128, 6.2K, 91cl, BUN 65 and creat 2.9 EKG: Sinus tach with peaked t waves Per orders: -The patient is already on broad spectrum antibiotics from admission which will be continued; Dr. Salma ARCEO is on board and is aware (earlier dose of Aztronam and IV zosyn) given this morning -stat kayhexalate, repeat BCx x 2 today, ABG w/ shock panel which will be followed up in 3 hours, duonebs, insulin stat with d5w, and 500cc bolus because the patient has a known history of CHF; repeat BMP q 4hours. * pH: 7.24 (low), Lactate: 1.0 -labs to be redrawn ABG shock panel to see lactate downtrending later in the day to check the K+ which was elevated at 6.2 for 11:30AM.
[2016-05-27 12:11] LABS: RBC URINE 7 /hpf (0-3); URINE BACTERIA RARE (<OCC); URINE BILIRUBIN NEGATIVE (NEGATIVE); URINE BLOOD 1+ (NEGATIVE); URINE COLOR Yellow (YELLOW); URINE GLUCOSE (UA) 2+ mg/dL (Normal); URINE KETONE NEGATIVE (NEGATIVE); URINE LEUKOCYTE ESTERASE NEG Leu/uL (Negative); URINE PROTEIN 2+ mg/dL (NEGATIVE); URINE UROBILINOGEN NORMAL mg/dL (0.2-1.0); WBC URINE 4 /hpf (0-5)
[2016-05-27 12:30] LABS: ABG ALLEN TEST POS; DRAW SITE RRA
--- NOTE | 2016-05-27 12:49 | CP.PCM.CON ---
History of Present Illness - History of Present Illness History of Present Illness: 45M presents to ED C/O RLE pain and swelling. Has been getting larger and more painful for 1 day. Pt recently admitted on 05/11/16 and found to have a DVT in his RLE and was discharged on Xarelto. Sharp, shooting pain with burning sensation began this AM. Pain rated 10/10 so he decided to come to the ED. Touching it makes pain worse. He has been taking his Xarelto. Denies any fevers , chest pain, nausea or vomiting. + Mild sob but states that it is related to his COPD/asthma and he had the same issue prior to this DVT. He had another RLE DVT in April of 2015, which was shown to be resolved by January of 2016. Pt has underlying ckd, baseline creatinine 1.5 mg/dl. REports no judd in urine output, hematuria dysuria. No recent illnesses/ hospitalization. t has a remote hx of henrique requiring [facility], stopped after 2 hd sessions. He had a venogram done yesterday. PMH: COPD, asthma, DM, HN, DVT in RLE, NSTEMI in 01/2016, gallstones, liver cirrhosis, and CKD PSH: splenectomy SH: Previous smoker, quit ~9 years ago, 1 PPD when smoking, No EtOh or drug use. All: Egg, NKDA Meds: Xarelto, Solumedrol dose pack, see MAR Review of Systems - Review of Systems All systems: reviewed and no additional remarkable complaints except (as per hpi ) Past Patient History - Infectious Disease Hx of Infectious Diseases: None - Past Medical History & Family History Past Medical History?: Yes - Past Social History Smoking Status: Former Smoker - CARDIAC Hx Cardiac Disorders: Yes Hx Congestive Heart Failure: Yes Hx Hypertension: Yes - PULMONARY Hx Respiratory Disorders: Yes Hx Asthma: Yes Hx Chronic Obstructive Pulmonary Disease (COPD): Yes Hx Pneumonia: Yes (2016) - NEUROLOGICAL Hx Neurological Disorder: Yes Other/Comment: c/o headache on admission, spinal tap attempted to remove spinal fluid. becuase of immobility developed DVT. at the time. right leg. - HEENT Hx HEENT Problems: No - RENAL Hx Chronic Kidney Disease: No - ENDOCRINE/METABOLIC Hx Endocrine Disorders: Yes Hx Diabetes Mellitus Type 1: Yes - HEMATOLOGICAL/ONCOLOGICAL Hx Blood Disorders: No - INTEGUMENTARY Hx Dermatological Problems: Yes Hx Cellulitis: Yes - MUSCULOSKELETAL/RHEUMATOLOGICAL Hx Musculoskeletal Disorders: No Hx Falls: No - GASTROINTESTINAL Hx Gastrointestinal Disorders: No - GENITOURINARY/GYNECOLOGICAL Hx Genitourinary Disorders: No - PSYCHIATRIC Hx Substance Use: No - SURGICAL HISTORY Hx Surgeries: Yes Hx Splenectomy: Yes (3 years ago) Hx Vascular Access Device: Yes (HX INGUINAL PERMA CATH) - ANESTHESIA Hx Anesthesia: Yes Hx Anesthesia Reactions: No Hx Malignant Hyperthermia: No Has any member of the family had a problem w/ anesthesia?: No Meds Allergies/Adverse Reactions: Allergies Allergy/AdvReac Type Severity Reaction Status Date / Time EGG Allergy Intermediate RASH Verified 05/25/16 14:29 - Medications Medications: Current Medications Albuterol/Ipratropium (Duoneb 3 Mg/0.5 Mg (3 Ml) Ud) 3 ml INH RQ6 PRN PRN Reason: Shortness of Breath Last Admin: 05/26/16 13:46 Dose: 3 ml Aspirin (Aspirin Chewable) 81 mg PO DAILY [facility] Last Admin: 05/27/16 10:40 Dose: 81 mg Docusate Sodium (Colace) 100 mg PO BID [facility] Last Admin: 05/27/16 10:37 Dose: 100 mg Famotidine (Pepcid) 20 mg PO DAILY [facility] Last Admin: 05/27/16 10:37 Dose: 20 mg Piperacillin Sod/Tazobactam Sod (Zosyn 2.25 Gm Iv Premix) 50 mls @ 100 mls/hr IVPB Q8H [facility] Last Admin: 05/27/16 02:35 Dose: 100 mls/hr Sodium Chloride (Sodium Chloride 0.9%) 1,000 mls @ 75 mls/hr IV .[id number] [facility] Last Admin: 05/27/16 06:55 Dose: Not Given Aztreonam 1 gm/ Sodium (Chloride) 100 mls @ 100 mls/hr IVPB Q12H [facility] Last Admin: 05/27/16 04:03 Dose: 100 mls/hr Heparin Sodium/Sodium Chloride (Heparin 03511 Units/250ml 1/2 Normal Saline) 250 mls @ 16.057 mls/hr IV .[id number] PRN; Protocol; 12 UNITS/KG/HR PRN Reason: PROTOCOL Insulin Aspart (Novolog) 12 unit SC ACTID [facility] Last Admin: 05/27/16 12:11 Dose: 12 unit Insulin Detemir (Levemir) 30 unit SC Q12 [facility] Last Admin: 05/27/16 10:44 Dose: Not Given Insulin Human Regular (Novolin R) 0 unit SC ACHS [facility] PRN Reason: Protocol Last Admin: 05/27/16 12:24 Dose: 5 unit Montelukast Sodium (Singulair) 10 mg PO HS [facility] Last Admin: 05/26/16 22:40 Dose: 10 mg Morphine Sulfate (Morphine) 4 mg IVP Q4 PRN PRN Reason: Pain, moderate (4-7) Last Admin: 05/27/16 10:38 Dose: 4 mg Pneumococcal Polyvalent Vaccine (Pneumovax 23 Vaccine) 0.5 ml IM .ONCE ONE Stop: 05/27/16 20:01 Prednisone (Prednisone Tab) 40 mg PO DAILY [facility] Last Admin: 05/27/16 10:37 Dose: 40 mg Fluticasone/Salmeterol (Advair Diskus 250/50) 2 puff IH Q12 [facility] Last Admin: 05/27/16 10:58 Dose: Not Given Physical Exam - Constitutional Appears: No Acute Distress, Chronically Ill (obese) - Head Exam Head Exam: NORMAL INSPECTION - Eye Exam Eye Exam: Normal appearance - ENT Exam ENT Exam: Mucous Membranes Moist, Normal Exam - Neck Exam Neck exam: Positive for: Normal Inspection - Respiratory Exam Respiratory Exam: Clear to Auscultation Bilateral, NORMAL BREATHING PATTERN - Cardiovascular Exam Cardiovascular Exam: REGULAR RHYTHM, RRR - GI/Abdominal Exam GI & Abdominal Exam: Distended, Normal Bowel Sounds, Soft - Extremities Exam Extremities exam: Positive for: calf tenderness (b/ol pitting edema R>L, RT leg erythema and tenderness), pedal edema Results - Vital Signs Recent Vital Signs: Last Vital Signs Temp 98.7 F 05/27/16 09:16 Pulse 92 H 05/27/16 09:16 Resp 20 05/27/16 09:16 BP 126/81 05/27/16 09:16 Pulse Ox 95 05/27/16 09:16 - Labs Result Diagrams: 05/27/16 09:38 05/27/16 10:55 Labs: Laboratory Results - last 24 hr 05/26/16 05/26/16 05/26/16 06:07 13:54 16:17 WBC 44.5 H* RBC 5.25 Hgb 15.0 Hct 47.2 MCV 89.8 MCH 28.6 MCHC 31.8 L RDW 16.6 H Plt Count 101 L MPV 9.7 Neut % (Auto) 93.4 H Lymph % (Auto) 1.9 L [place] % (Auto) 4.7 Eos % (Auto) 0.0 Baso % (Auto) 0.0 Neut # 41.5 H Lymph # 0.9 L [place] # 2.1 H Eos # 0.0 Baso # 0.0 Neutrophils % (Manual) 80 H Band Neutrophils % 15 H* Lymphocytes % (Manual) 2 L Monocytes % (Manual) 3 Platelet Estimate Decreased L Large Platelets Giant Platelets Present RBC Morphology Anisocytosis (manual) Slight Target Cells Slight PT INR APTT Puncture Site pCO2 pO2 HCO3 ABG pH ABG Total CO2 ABG O2 Saturation ABG Base Excess Philippe Test ABG Potassium Glucose Lactate Liter Flow Sodium 130 L Potassium 5.8 H Chloride 93 L Carbon Dioxide 27 Anion Gap 17 BUN 50 H Creatinine 2.3 H Est GFR ( Amer) 37 Est GFR (Non-Af Amer) 31 POC Glucose (mg/dL) 473 H* Random Glucose 501 H* Calcium 7.7 L Phosphorus Magnesium 1.6 Total Bilirubin AST ALT Alkaline Phosphatase Total Protein Albumin Globulin Albumin/Globulin Ratio Procalcitonin 16.61 H Arterial Blood Potassium Urine Color Urine Clarity Urine pH Ur Specific [place] Urine Protein Urine Glucose (UA) Urine Ketones Urine Blood Urine Nitrate Urine Bilirubin Urine Urobilinogen Ur Leukocyte Esterase Urine WBC (Auto) Urine RBC (Auto) Ur Squamous Epith Cells Amorphous Sediment Urine Bacteria Ur Random Creatinine 05/26/16 05/26/16 05/27/16 20:16 21:38 01:50 WBC RBC Hgb Hct MCV MCH MCHC RDW Plt Count MPV Neut % (Auto) Lymph % (Auto) [place] % (Auto) Eos % (Auto) Baso % (Auto) Neut # Lymph # [place] # Eos # Baso # Neutrophils % (Manual) Band Neutrophils % Lymphocytes % (Manual) Monocytes % (Manual) Platelet Estimate Large Platelets Giant Platelets RBC Morphology Anisocytosis (manual) Target Cells PT INR APTT Puncture Site pCO2 pO2 HCO3 ABG pH ABG Total CO2 ABG O2 Saturation ABG Base Excess Philippe Test ABG Potassium Glucose Lactate Liter Flow Sodium Potassium Chloride Carbon Dioxide Anion Gap BUN Creatinine Est GFR ( Amer) Est GFR (Non-Af Amer) POC Glucose (mg/dL) 398 H 339 H Random Glucose Calcium Phosphorus Magnesium Total Bilirubin AST ALT Alkaline Phosphatase Total Protein Albumin Globulin Albumin/Globulin Ratio Procalcitonin Arterial Blood Potassium Urine Color Yellow Urine Clarity Hazy Urine pH 5.0 Ur Specific [place] 1.017 Urine Protein 2+ H Urine Glucose (UA) 3+ H Urine Ketones Negative Urine Blood 1+ H Urine Nitrate Negative Urine Bilirubin Negative Urine Urobilinogen Normal Ur Leukocyte Esterase Neg Urine WBC (Auto) 2 Urine RBC (Auto) 5 H Ur Squamous Epith Cells 1 Amorphous Sediment Urine Bacteria Rare Ur Random Creatinine 70.1 05/27/16 05/27/16 05/27/16 06:30 07:46 08:42 WBC 43.8 H* RBC 5.00 Hgb 14.6 Hct 44.7 MCV 89.4 MCH 29.2 MCHC 32.6 L RDW 16.7 H Plt Count 103 L MPV 10.4 Neut % (Auto) 88.5 H Lymph % (Auto) 4.4 L [place] % (Auto) 6.8 Eos % (Auto) 0.0 Baso % (Auto) 0.3 Neut # 38.8 H Lymph # 1.9 Knox # 3.0 H Eos # 0.0 Baso # 0.1 Neutrophils % (Manual) 89 H Band Neutrophils % 1 Lymphocytes % (Manual) 1 L Monocytes % (Manual) 9 Platelet Estimate Decreased L Large Platelets Present Giant Platelets RBC Morphology Normal Anisocytosis (manual) Target Cells PT INR APTT Puncture Site Rra pCO2 50 H pO2 93 HCO3 20.0 L ABG pH 7.24 L ABG Total CO2 22.9 ABG O2 Saturation 98.6 H ABG Base Excess -6.3 L Philippe Test Pos ABG Potassium 5.2 Glucose 352 H Lactate 1.0 Liter Flow 3.0 Sodium 128 L 132.0 Potassium 6.2 H* Chloride 91 L 101.0 Carbon Dioxide 24 Anion Gap 18 BUN 65 H Creatinine 2.9 H Est GFR ( Amer) 28 Est GFR (Non-Af Amer) 24 POC Glucose (mg/dL) 312 H Random Glucose 391 H Calcium 7.7 L Phosphorus 5.5 H Magnesium 1.8 Total Bilirubin 0.8 AST 21 ALT 30 Alkaline Phosphatase 116 Total Protein 6.1 L Albumin 3.0 L Globulin 3.1 Albumin/Globulin Ratio 1.0 Procalcitonin Arterial Blood Potassium 5.2 Urine Color Urine Clarity Urine pH Ur Specific [place] Urine Protein Urine Glucose (UA) Urine Ketones Urine Blood Urine Nitrate Urine Bilirubin Urine Urobilinogen Ur Leukocyte Esterase Urine WBC (Auto) Urine RBC (Auto) Ur Squamous Epith Cells Amorphous Sediment Urine Bacteria Ur Random Creatinine 05/27/16 05/27/16 05/27/16 09:38 10:55 11:22 WBC 43.3 H* RBC 4.96 Hgb 14.4 Hct 44.2 MCV 89.1 MCH 29.0 MCHC 32.6 L RDW 17.0 H Plt Count 85 L MPV 10.0 Neut % (Auto) 87.3 H Lymph % (Auto) 5.9 L [place] % (Auto) 6.6 Eos % (Auto) 0.1 Baso % (Auto) 0.1 Neut # 37.8 H Lymph # 2.6 [place] # 2.9 H Eos # 0.0 Baso # 0.1 Neutrophils % (Manual) Band Neutrophils % Lymphocytes % (Manual) Monocytes % (Manual) Platelet Estimate Large Platelets Giant Platelets RBC Morphology Anisocytosis (manual) Target Cells PT 13.9 H INR 1.2 APTT 86 H D Puncture Site pCO2 pO2 HCO3 ABG pH ABG Total CO2 ABG O2 Saturation ABG Base Excess Philippe Test ABG Potassium Glucose Lactate Liter Flow Sodium 129 L Potassium 5.5 H Chloride 92 L Carbon Dioxide 26 Anion Gap 17 BUN 68 H Creatinine 2.8 H Est GFR ( Amer) 30 Est GFR (Non-Af Amer) 25 POC Glucose (mg/dL) Random Glucose 324 H Calcium 8.0 L Phosphorus 5.5 H Magnesium 1.9 Total Bilirubin 0.8 AST 19 ALT 39 Alkaline Phosphatase 112 Total Protein 6.1 L Albumin 2.7 L Globulin 3.5 Albumin/Globulin Ratio 0.8 L Procalcitonin Arterial Blood Potassium Urine Color Yellow Urine Clarity Hazy Urine pH 5.0 Ur Specific [place] 1.013 Urine Protein 2+ H Urine Glucose (UA) 3+ H Urine Ketones Negative Urine Blood 1+ H Urine Nitrate Negative Urine Bilirubin Negative Urine Urobilinogen Normal Ur Leukocyte Esterase Neg Urine WBC (Auto) 3 Urine RBC (Auto) 9 H Ur Squamous Epith Cells < 1 Amorphous Sediment Few H Urine Bacteria Ur Random Creatinine 05/27/16 05/27/16 05/27/16 11:23 11:57 12:26 WBC RBC Hgb Hct MCV MCH MCHC RDW Plt Count MPV Neut % (Auto) Lymph % (Auto) [place] % (Auto) Eos % (Auto) Baso % (Auto) Neut # Lymph # [place] # Eos # Baso # Neutrophils % (Manual) Band Neutrophils % Lymphocytes % (Manual) Monocytes % (Manual) Platelet Estimate Large Platelets Giant Platelets RBC Morphology Anisocytosis (manual) Target Cells PT INR APTT Puncture Site Rra pCO2 52 H pO2 79 L HCO3 20.0 L ABG pH 7.23 L ABG Total CO2 23.4 ABG O2 Saturation 97.2 ABG Base Excess -6.2 L Philippe Test Pos ABG Potassium 4.7 Glucose 233 H Lactate 1.0 Liter Flow 3.0 Sodium 131.0 L Potassium Chloride 103.0 Carbon Dioxide Anion Gap BUN Creatinine Est GFR ( Amer) Est GFR (Non-Af Amer) POC Glucose (mg/dL) 353 H Random Glucose Calcium Phosphorus Magnesium Total Bilirubin AST ALT Alkaline Phosphatase Total Protein Albumin Globulin Albumin/Globulin Ratio Procalcitonin Arterial Blood Potassium 4.7 Urine Color Yellow Urine Clarity Hazy Urine pH 5.0 Ur Specific [place] 1.015 Urine Protein 2+ H Urine Glucose (UA) 2+ H Urine Ketones Negative Urine Blood 1+ H Urine Nitrate Negative Urine Bilirubin Negative Urine Urobilinogen Normal Ur Leukocyte Esterase Neg Urine WBC (Auto) 4 Urine RBC (Auto) 7 H Ur Squamous Epith Cells 2 Amorphous Sediment Occ H Urine Bacteria Rare Ur Random Creatinine Assessment & Plan (1) Cellulitis Status: Acute (2) Deep venous thrombosis of lower extremity Status: Acute (3) Sepsis Status: Acute (4) Diabetic nephropathy Status: Acute (5) Diabetes Status: Chronic (6) HTN (hypertension) Status: Chronic (7) Renal insufficiency Status: Chronic - Assessment and Plan (Free Text) Assessment: # HENRIQUE with underlying ckd. # sepsis, gram neg bacteremia, ? cellulitis # DVT # DM , poorly controlled # htn # hyperkalemia, ARB use # hyponatremia, mild, corrected na for glucose around 132 Plan: Monitor chems closely, hold ARB agree w/gentle iv fluids renal ultrasound, ruiz placement for accurate monitoring of uop urine protein quantification avoid nephrotoxic meds / contrast media blood sugars need to be controlled low k diet
[2016-05-27 12:55] LABS: POTASSIUM 5.4 mmol/L (3.6-5.2)
[2016-05-27] MEDS ORDERED: Heparin25000 units/250ml 1/2NS 250 ML IV PRN ×2 (13:00→22:34)
[2016-05-27] MEDS ORDERED: Sod Polystyrene Sulf 15 gm/60 ml Oral Susp PO ONE (13:33)
--- NOTE | 2016-05-27 14:38 | CP.PCM.CON ---
History of Present Illness - History of Present Illness History of Present Illness: dictated Past Patient History - Infectious Disease Hx of Infectious Diseases: None - Past Medical History & Family History Past Medical History?: Yes - Past Social History Smoking Status: Former Smoker - CARDIAC Hx Cardiac Disorders: Yes Hx Congestive Heart Failure: Yes Hx Hypertension: Yes - PULMONARY Hx Respiratory Disorders: Yes Hx Asthma: Yes Hx Chronic Obstructive Pulmonary Disease (COPD): Yes Hx Pneumonia: Yes (2016) - NEUROLOGICAL Hx Neurological Disorder: Yes Other/Comment: c/o headache on admission, spinal tap attempted to remove spinal fluid. becuase of immobility developed DVT. at the time. right leg. - HEENT Hx HEENT Problems: No - RENAL Hx Chronic Kidney Disease: No - ENDOCRINE/METABOLIC Hx Endocrine Disorders: Yes Hx Diabetes Mellitus Type 1: Yes - HEMATOLOGICAL/ONCOLOGICAL Hx Blood Disorders: No - INTEGUMENTARY Hx Dermatological Problems: Yes Hx Cellulitis: Yes - MUSCULOSKELETAL/RHEUMATOLOGICAL Hx Musculoskeletal Disorders: No Hx Falls: No - GASTROINTESTINAL Hx Gastrointestinal Disorders: No - GENITOURINARY/GYNECOLOGICAL Hx Genitourinary Disorders: No - PSYCHIATRIC Hx Substance Use: No - SURGICAL HISTORY Hx Surgeries: Yes Hx Splenectomy: Yes (3 years ago) Hx Vascular Access Device: Yes (HX INGUINAL PERMA CATH) - ANESTHESIA Hx Anesthesia: Yes Hx Anesthesia Reactions: No Hx Malignant Hyperthermia: No Has any member of the family had a problem w/ anesthesia?: No Meds Allergies/Adverse Reactions: Allergies Allergy/AdvReac Type Severity Reaction Status Date / Time EGG Allergy Intermediate RASH Verified 05/25/16 14:29 - Medications Medications: Current Medications Albuterol/Ipratropium (Duoneb 3 Mg/0.5 Mg (3 Ml) Ud) 3 ml INH RQ6 PRN PRN Reason: Shortness of Breath Last Admin: 05/26/16 13:46 Dose: 3 ml Aspirin (Aspirin Chewable) 81 mg PO DAILY [facility] Last Admin: 05/27/16 10:40 Dose: 81 mg Docusate Sodium (Colace) 100 mg PO BID [facility] Last Admin: 05/27/16 10:37 Dose: 100 mg Famotidine (Pepcid) 20 mg PO DAILY [facility] Last Admin: 05/27/16 10:37 Dose: 20 mg Piperacillin Sod/Tazobactam Sod (Zosyn 2.25 Gm Iv Premix) 50 mls @ 100 mls/hr IVPB Q8H [facility] Last Admin: 05/27/16 13:13 Dose: 100 mls/hr Sodium Chloride (Sodium Chloride 0.9%) 1,000 mls @ 75 mls/hr IV .[id number] [facility] Last Admin: 05/27/16 13:34 Dose: Not Given Aztreonam 1 gm/ Sodium (Chloride) 100 mls @ 100 mls/hr IVPB Q12H [facility] Last Admin: 05/27/16 04:03 Dose: 100 mls/hr Heparin Sodium/Sodium Chloride (Heparin 57404 Units/250ml 1/2 Normal Saline) 250 mls @ 16.057 mls/hr IV .[id number] PRN; Protocol; 12 UNITS/KG/HR PRN Reason: PROTOCOL Last Admin: 05/27/16 14:03 Dose: 16.057 mls/hr Insulin Aspart (Novolog) 12 unit SC ACTID [facility] Last Admin: 05/27/16 12:11 Dose: 12 unit Insulin Detemir (Levemir) 30 unit SC Q12 [facility] Last Admin: 05/27/16 10:44 Dose: Not Given Insulin Human Regular (Novolin R) 0 unit SC ACHS [facility] PRN Reason: Protocol Last Admin: 05/27/16 12:24 Dose: 5 unit Montelukast Sodium (Singulair) 10 mg PO HS [facility] Last Admin: 05/26/16 22:40 Dose: 10 mg Morphine Sulfate (Morphine) 4 mg IVP Q4 PRN PRN Reason: Pain, moderate (4-7) Last Admin: 05/27/16 10:38 Dose: 4 mg Pneumococcal Polyvalent Vaccine (Pneumovax 23 Vaccine) 0.5 ml IM .ONCE ONE Stop: 05/27/16 20:01 Prednisone (Prednisone Tab) 40 mg PO DAILY [facility] Last Admin: 05/27/16 10:37 Dose: 40 mg Fluticasone/Salmeterol (Advair Diskus 250/50) 2 puff IH Q12 [facility] Last Admin: 05/27/16 10:58 Dose: Not Given Results - Vital Signs Recent Vital Signs: Last Vital Signs Temp 99 F 05/27/16 13:19 Pulse 89 05/27/16 13:19 Resp 20 05/27/16 13:19 BP 122/75 05/27/16 13:19 Pulse Ox 97 05/27/16 13:19 - Labs Result Diagrams: 05/27/16 09:38 05/27/16 12:37 Labs: Laboratory Results - last 24 hr 05/26/16 05/26/16 05/26/16 13:54 16:17 20:16 WBC RBC Hgb Hct MCV MCH MCHC RDW Plt Count MPV Neut % (Auto) Lymph % (Auto) [place] % (Auto) Eos % (Auto) Baso % (Auto) Neut # Lymph # [place] # Eos # Baso # Neutrophils % (Manual) 80 H Band Neutrophils % 15 H* Lymphocytes % (Manual) 2 L Monocytes % (Manual) 3 Platelet Estimate Decreased L Large Platelets Giant Platelets Present RBC Morphology Anisocytosis (manual) Slight Target Cells Slight Smear Path Review PT INR APTT Puncture Site pCO2 pO2 HCO3 ABG pH ABG Total CO2 ABG O2 Saturation ABG Base Excess Philippe Test ABG Potassium Glucose Lactate Liter Flow Sodium Potassium Chloride Carbon Dioxide Anion Gap BUN Creatinine Est GFR ( Amer) Est GFR (Non-Af Amer) POC Glucose (mg/dL) 473 H* Random Glucose Calcium Phosphorus Magnesium Total Bilirubin AST ALT Alkaline Phosphatase Total Protein Albumin Globulin Albumin/Globulin Ratio Procalcitonin Arterial Blood Potassium Urine Color Yellow Urine Clarity Hazy Urine pH 5.0 Ur Specific Seney 1.017 Urine Protein 2+ H Urine Glucose (UA) 3+ H Urine Ketones Negative Urine Blood 1+ H Urine Nitrate Negative Urine Bilirubin Negative Urine Urobilinogen Normal Ur Leukocyte Esterase Neg Urine WBC (Auto) 2 Urine RBC (Auto) 5 H Ur Squamous Epith Cells 1 Amorphous Sediment Urine Bacteria Rare Ur Random Creatinine 70.1 05/26/16 05/27/16 05/27/16 21:38 01:50 06:30 WBC RBC Hgb Hct MCV MCH MCHC RDW Plt Count MPV Neut % (Auto) Lymph % (Auto) [place] % (Auto) Eos % (Auto) Baso % (Auto) Neut # Lymph # [place] # Eos # Baso # Neutrophils % (Manual) Band Neutrophils % Lymphocytes % (Manual) Monocytes % (Manual) Platelet Estimate Large Platelets Giant Platelets RBC Morphology Anisocytosis (manual) Target Cells Smear Path Review PT INR APTT Puncture Site pCO2 pO2 HCO3 ABG pH ABG Total CO2 ABG O2 Saturation ABG Base Excess Philippe Test ABG Potassium Glucose Lactate Liter Flow Sodium Potassium Chloride Carbon Dioxide Anion Gap BUN Creatinine Est GFR ( Amer) Est GFR (Non-Af Amer) POC Glucose (mg/dL) 398 H 339 H 312 H Random Glucose Calcium Phosphorus Magnesium Total Bilirubin AST ALT Alkaline Phosphatase Total Protein Albumin Globulin Albumin/Globulin Ratio Procalcitonin Arterial Blood Potassium Urine Color Urine Clarity Urine pH Ur Specific Seney Urine Protein Urine Glucose (UA) Urine Ketones Urine Blood Urine Nitrate Urine Bilirubin Urine Urobilinogen Ur Leukocyte Esterase Urine WBC (Auto) Urine RBC (Auto) Ur Squamous Epith Cells Amorphous Sediment Urine Bacteria Ur Random Creatinine 05/27/16 05/27/16 05/27/16 07:46 08:42 09:38 WBC 43.8 H* 43.3 H* RBC 5.00 4.96 Hgb 14.6 14.4 Hct 44.7 44.2 MCV 89.4 89.1 MCH 29.2 29.0 MCHC 32.6 L 32.6 L RDW 16.7 H 17.0 H Plt Count 103 L 85 L MPV 10.4 10.0 Neut % (Auto) 88.5 H 87.3 H Lymph % (Auto) 4.4 L 5.9 L [place] % (Auto) 6.8 6.6 Eos % (Auto) 0.0 0.1 Baso % (Auto) 0.3 0.1 Neut # 38.8 H 37.8 H Lymph # 1.9 2.6 [place] # 3.0 H 2.9 H Eos # 0.0 0.0 Baso # 0.1 0.1 Neutrophils % (Manual) 89 H Band Neutrophils % 1 Lymphocytes % (Manual) 1 L Monocytes % (Manual) 9 Platelet Estimate Decreased L Large Platelets Present Giant Platelets RBC Morphology Normal Anisocytosis (manual) Target Cells Smear Path Review PT 13.9 H INR 1.2 APTT 86 H D Puncture Site Rra pCO2 50 H pO2 93 HCO3 20.0 L ABG pH 7.24 L ABG Total CO2 22.9 ABG O2 Saturation 98.6 H ABG Base Excess -6.3 L Philippe Test Pos ABG Potassium 5.2 Glucose 352 H Lactate 1.0 Liter Flow 3.0 Sodium 128 L 132.0 Potassium 6.2 H* Chloride 91 L 101.0 Carbon Dioxide 24 Anion Gap 18 BUN 65 H Creatinine 2.9 H Est GFR ( Amer) 28 Est GFR (Non-Af Amer) 24 POC Glucose (mg/dL) Random Glucose 391 H Calcium 7.7 L Phosphorus 5.5 H Magnesium 1.8 Total Bilirubin 0.8 AST 21 ALT 30 Alkaline Phosphatase 116 Total Protein 6.1 L Albumin 3.0 L Globulin 3.1 Albumin/Globulin Ratio 1.0 Procalcitonin 31.81 H Arterial Blood Potassium 5.2 Urine Color Urine Clarity Urine pH Ur Specific Seney Urine Protein Urine Glucose (UA) Urine Ketones Urine Blood Urine Nitrate Urine Bilirubin Urine Urobilinogen Ur Leukocyte Esterase Urine WBC (Auto) Urine RBC (Auto) Ur Squamous Epith Cells Amorphous Sediment Urine Bacteria Ur Random Creatinine 05/27/16 05/27/16 05/27/16 10:55 11:22 11:23 WBC RBC Hgb Hct MCV MCH MCHC RDW Plt Count MPV Neut % (Auto) Lymph % (Auto) [place] % (Auto) Eos % (Auto) Baso % (Auto) Neut # Lymph # [place] # Eos # Baso # Neutrophils % (Manual) Band Neutrophils % Lymphocytes % (Manual) Monocytes % (Manual) Platelet Estimate Large Platelets Giant Platelets RBC Morphology Anisocytosis (manual) Target Cells Smear Path Review PT INR APTT Puncture Site pCO2 pO2 HCO3 ABG pH ABG Total CO2 ABG O2 Saturation ABG Base Excess Philippe Test ABG Potassium Glucose Lactate Liter Flow Sodium 129 L Potassium 5.5 H Chloride 92 L Carbon Dioxide 26 Anion Gap 17 BUN 68 H Creatinine 2.8 H Est GFR ( Amer) 30 Est GFR (Non-Af Amer) 25 POC Glucose (mg/dL) 353 H Random Glucose 324 H Calcium 8.0 L Phosphorus 5.5 H Magnesium 1.9 Total Bilirubin 0.8 AST 19 ALT 39 Alkaline Phosphatase 112 Total Protein 6.1 L Albumin 2.7 L Globulin 3.5 Albumin/Globulin Ratio 0.8 L Procalcitonin Arterial Blood Potassium Urine Color Yellow Urine Clarity Hazy Urine pH 5.0 Ur Specific [place]y 1.013 Urine Protein 2+ H Urine Glucose (UA) 3+ H Urine Ketones Negative Urine Blood 1+ H Urine Nitrate Negative Urine Bilirubin Negative Urine Urobilinogen Normal Ur Leukocyte Esterase Neg Urine WBC (Auto) 3 Urine RBC (Auto) 9 H Ur Squamous Epith Cells < 1 Amorphous Sediment Few H Urine Bacteria Ur Random Creatinine 05/27/16 05/27/16 05/27/16 11:57 12:26 12:37 WBC RBC Hgb Hct MCV MCH MCHC RDW Plt Count MPV Neut % (Auto) Lymph % (Auto) [place] % (Auto) Eos % (Auto) Baso % (Auto) Neut # Lymph # [place] # Eos # Baso # Neutrophils % (Manual) Band Neutrophils % Lymphocytes % (Manual) Monocytes % (Manual) Platelet Estimate Large Platelets Giant Platelets RBC Morphology Anisocytosis (manual) Target Cells Smear Path Review PT INR APTT Puncture Site Rra pCO2 52 H pO2 79 L HCO3 20.0 L ABG pH 7.23 L ABG Total CO2 23.4 ABG O2 Saturation 97.2 ABG Base Excess -6.2 L Philippe Test Pos ABG Potassium 4.7 Glucose 233 H Lactate 1.0 Liter Flow 3.0 Sodium 131.0 L 128 L Potassium 5.4 H Chloride 103.0 92 L Carbon Dioxide 26 Anion Gap 17 BUN 66 H Creatinine 2.9 H Est GFR ( Amer) 28 Est GFR (Non-Af Amer) 24 POC Glucose (mg/dL) Random Glucose 253 H Calcium 8.0 L Phosphorus Magnesium Total Bilirubin AST ALT Alkaline Phosphatase Total Protein Albumin Globulin Albumin/Globulin Ratio Procalcitonin Arterial Blood Potassium 4.7 Urine Color Yellow Urine Clarity Hazy Urine pH 5.0 Ur Specific [place] 1.015 Urine Protein 2+ H Urine Glucose (UA) 2+ H Urine Ketones Negative Urine Blood 1+ H Urine Nitrate Negative Urine Bilirubin Negative Urine Urobilinogen Normal Ur Leukocyte Esterase Neg Urine WBC (Auto) 4 Urine RBC (Auto) 7 H Ur Squamous Epith Cells 2 Amorphous Sediment Occ H Urine Bacteria Rare Ur Random Creatinine
[2016-05-27] MEDS: metroNIDAZOLE IV 500 mg/100 ml 100 ML IVPB SCH (16:46)
[2016-05-27] MEDS ORDERED: Iohexol 240 (50 ml) PO ONE (17:00)
--- NOTE | 2016-05-27 18:44 | CP.PCM.CON ---
<Berenice Cooper - Last Filed: 05/27/16 18:27> History of Present Illness - History of Present Illness History of Present Illness: ICU Consult Note - Dr. Nevarez Pt is 45M with PMHx of COPD, asthma, DM, HN, DVT in RLE, NSTEMI in 01/2016, gallstones, liver cirrhosis, and CKD admitted on admitted on 05/25/16 for RLE pain and swelling. Patient has history of DVT to affected extremity noted during recent hospitalization and was discharged on Xarelto, however, patient was not compliant with taking medication. Venous Doppler (05/26) showed clot extending to iliac vein on right. Vascular surgeon Dr. Ortega recommended thrombolysis but due to acute kidney injury (CR 2.9) patient started on heparin drip. Code sepsis was called as patient bacteremic with gram negative rods with increased leukocytosis (43.3). ABG at 8:42: 50/93/20/7.24/lactate of 1.0 and repeat 12:26: 52/79/20/7.23/lactate 1.0. Patient vitals are stable, blood pressure 126/81, pulse ranging from 67-98, temperature 98.7, O2 96% on room air. Patient was seen and examined, sitting comfortably. He denies fever, chills, chest pain, palpitations, shortness of breath, nausea, vomiting, abdominal pain , diarrhea and constipation. Patient admits to swelling and pain to right lower extremity. Review of Systems - Review of Systems Review of Systems: Denies fever, chills, chest pain, palpitations, shortness of breath, nausea, vomiting, abdominal pain, diarrhea and constipation. Patient admits to swelling and pain to right lower extremity. Past Patient History - Infectious Disease Hx of Infectious Diseases: None - Past Medical History & Family History Past Medical History?: Yes - Past Social History Smoking Status: Former Smoker - CARDIAC Hx Cardiac Disorders: Yes Hx Congestive Heart Failure: Yes Hx Hypertension: Yes - PULMONARY Hx Respiratory Disorders: Yes Hx Asthma: Yes Hx Chronic Obstructive Pulmonary Disease (COPD): Yes Hx Pneumonia: Yes (2015) - NEUROLOGICAL Hx Neurological Disorder: Yes Other/Comment: c/o headache on admission, spinal tap attempted to remove spinal fluid. becuase of immobility developed DVT. at the time. right leg. - HEENT Hx HEENT Problems: No - RENAL Hx Chronic Kidney Disease: No - ENDOCRINE/METABOLIC Hx Endocrine Disorders: Yes Hx Diabetes Mellitus Type 1: Yes - HEMATOLOGICAL/ONCOLOGICAL Hx Blood Disorders: No - INTEGUMENTARY Hx Dermatological Problems: Yes Hx Cellulitis: Yes - MUSCULOSKELETAL/RHEUMATOLOGICAL Hx Musculoskeletal Disorders: No Hx Falls: No - GASTROINTESTINAL Hx Gastrointestinal Disorders: No - GENITOURINARY/GYNECOLOGICAL Hx Genitourinary Disorders: No - PSYCHIATRIC Hx Substance Use: No - SURGICAL HISTORY Hx Surgeries: Yes Hx Splenectomy: Yes (3 years ago) Hx Vascular Access Device: Yes (HX INGUINAL PERMA CATH) - ANESTHESIA Hx Anesthesia: Yes Hx Anesthesia Reactions: No Hx Malignant Hyperthermia: No Has any member of the family had a problem w/ anesthesia?: No Meds Allergies/Adverse Reactions: Allergies Allergy/AdvReac Type Severity Reaction Status Date / Time EGG Allergy Intermediate RASH Verified 05/25/16 14:29 - Medications Medications: Current Medications Albuterol/Ipratropium (Duoneb 3 Mg/0.5 Mg (3 Ml) Ud) 3 ml INH RQ6 PRN PRN Reason: Shortness of Breath Last Admin: 05/26/16 13:46 Dose: 3 ml Aspirin (Aspirin Chewable) 81 mg PO DAILY [facility] Last Admin: 05/27/16 10:40 Dose: 81 mg Docusate Sodium (Colace) 100 mg PO BID [facility] Last Admin: 05/27/16 10:37 Dose: 100 mg Famotidine (Pepcid) 20 mg PO DAILY [facility] Last Admin: 05/27/16 10:37 Dose: 20 mg Piperacillin Sod/Tazobactam Sod (Zosyn 2.25 Gm Iv Premix) 50 mls @ 100 mls/hr IVPB Q8H [facility] Last Admin: 05/27/16 13:13 Dose: 100 mls/hr Sodium Chloride (Sodium Chloride 0.9%) 1,000 mls @ 75 mls/hr IV .[id number] [facility] Last Admin: 05/27/16 13:34 Dose: Not Given Aztreonam 1 gm/ Sodium (Chloride) 100 mls @ 100 mls/hr IVPB Q12H [facility] Last Admin: 05/27/16 16:52 Dose: 100 mls/hr Heparin Sodium/Sodium Chloride (Heparin 16191 Units/250ml 1/2 Normal Saline) 250 mls @ 16.057 mls/hr IV .[id number] PRN; Protocol; 12 UNITS/KG/HR PRN Reason: PROTOCOL Last Admin: 05/27/16 14:03 Dose: 16.057 mls/hr Metronidazole (Flagyl) 100 mls @ 100 mls/hr IVPB Q12H [facility] Last Admin: 05/27/16 16:46 Dose: 100 mls/hr Insulin Aspart (Novolog) 12 unit SC ACTID [facility] Last Admin: 05/27/16 17:04 Dose: 12 unit Insulin Detemir (Levemir) 30 unit SC Q12 [facility] Last Admin: 05/27/16 10:44 Dose: Not Given Insulin Human Regular (Novolin R) 0 unit SC ACHS [facility] PRN Reason: Protocol Last Admin: 05/27/16 17:03 Dose: 2 unit Montelukast Sodium (Singulair) 10 mg PO HS [facility] Last Admin: 05/26/16 22:40 Dose: 10 mg Morphine Sulfate (Morphine) 4 mg IVP Q4 PRN PRN Reason: Pain, moderate (4-7) Last Admin: 05/27/16 16:52 Dose: 4 mg Pneumococcal Polyvalent Vaccine (Pneumovax 23 Vaccine) 0.5 ml IM .ONCE ONE Stop: 05/27/16 20:01 Prednisone (Prednisone Tab) 40 mg PO DAILY [facility] Last Admin: 05/27/16 10:37 Dose: 40 mg Fluticasone/Salmeterol (Advair Diskus 250/50) 2 puff IH Q12 [facility] Last Admin: 05/27/16 10:58 Dose: Not Given Physical Exam - Constitutional Appears: Non-toxic, No Acute Distress Additional comments: Obese - Head Exam Head Exam: ATRAUMATIC, NORMAL INSPECTION, NORMOCEPHALIC - Eye Exam Eye Exam: EOMI, Normal appearance, PERRL - ENT Exam ENT Exam: Mucous Membranes Moist - Neck Exam Neck exam: Positive for: Full Rom Additional comments: hyperpigmented velvety plaque to right lateral neck - Respiratory Exam Respiratory Exam: Clear to Auscultation Bilateral, NORMAL BREATHING PATTERN. absent: Rales, Rhonchi, Wheezes - Cardiovascular Exam Cardiovascular Exam: +S1, +S2. absent: Systolic Murmur Additional comments: heart sounds difficult to auscultate due to body habitus - GI/Abdominal Exam GI & Abdominal Exam: Normal Bowel Sounds, Soft - Extremities Exam Extremities exam: Positive for: pedal edema, tenderness Additional comments: Extensive swelling and erythema to right lower extremity. Severely painful to palpation. - Back Exam Back exam: NORMAL INSPECTION - Neurological Exam Neurological exam: Alert, CN II-XII Intact, Oriented x3 - Psychiatric Exam Psychiatric exam: Normal Affect, Normal Mood - Skin Additional comments: as per extremity exam Results - Vital Signs Recent Vital Signs: Last Vital Signs Temp 98.5 F 05/27/16 16:38 Pulse 98 H 05/27/16 16:38 Resp 18 05/27/16 16:38 BP 126/81 05/27/16 16:38 Pulse Ox 96 05/27/16 16:38 - Labs Result Diagrams: 05/27/16 09:38 05/27/16 12:37 Labs: Laboratory Results - last 24 hr 05/26/16 05/26/16 05/26/16 13:54 20:16 21:38 WBC RBC Hgb Hct MCV MCH MCHC RDW Plt Count MPV Neut % (Auto) Lymph % (Auto) Mora % (Auto) Eos % (Auto) Baso % (Auto) Neut # Lymph # Mora # Eos # Baso # Neutrophils % (Manual) Band Neutrophils % Lymphocytes % (Manual) Monocytes % (Manual) Platelet Estimate Large Platelets RBC Morphology Smear Path Review PT INR APTT Puncture Site pCO2 pO2 HCO3 ABG pH ABG Total CO2 ABG O2 Saturation ABG Base Excess Philippe Test ABG Potassium Glucose Lactate Liter Flow Sodium Potassium Chloride Carbon Dioxide Anion Gap BUN Creatinine Est GFR ( Amer) Est GFR (Non-Af Amer) POC Glucose (mg/dL) 398 H Random Glucose Calcium Phosphorus Magnesium Total Bilirubin AST ALT Alkaline Phosphatase Total Protein Albumin Globulin Albumin/Globulin Ratio Procalcitonin Arterial Blood Potassium Urine Color Yellow Urine Clarity Hazy Urine pH 5.0 Ur Specific [place] 1.017 Urine Protein 2+ H Urine Glucose (UA) 3+ H Urine Ketones Negative Urine Blood 1+ H Urine Nitrate Negative Urine Bilirubin Negative Urine Urobilinogen Normal Ur Leukocyte Esterase Neg Urine WBC (Auto) 2 Urine RBC (Auto) 5 H Ur Squamous Epith Cells 1 Amorphous Sediment Urine Bacteria Rare Ur Random Creatinine 70.1 05/27/16 05/27/16 05/27/16 01:50 06:30 07:46 WBC 43.8 H* RBC 5.00 Hgb 14.6 Hct 44.7 MCV 89.4 MCH 29.2 MCHC 32.6 L RDW 16.7 H Plt Count 103 L MPV 10.4 Neut % (Auto) 88.5 H Lymph % (Auto) 4.4 L Mora % (Auto) 6.8 Eos % (Auto) 0.0 Baso % (Auto) 0.3 Neut # 38.8 H Lymph # 1.9 Mora # 3.0 H Eos # 0.0 Baso # 0.1 Neutrophils % (Manual) 89 H Band Neutrophils % 1 Lymphocytes % (Manual) 1 L Monocytes % (Manual) 9 Platelet Estimate Decreased L Large Platelets Present RBC Morphology Normal Smear Path Review PT INR APTT Puncture Site pCO2 pO2 HCO3 ABG pH ABG Total CO2 ABG O2 Saturation ABG Base Excess Philippe Test ABG Potassium Glucose Lactate Liter Flow Sodium 128 L Potassium 6.2 H* Chloride 91 L Carbon Dioxide 24 Anion Gap 18 BUN 65 H Creatinine 2.9 H Est GFR ( Amer) 28 Est GFR (Non-Af Amer) 24 POC Glucose (mg/dL) 339 H 312 H Random Glucose 391 H Calcium 7.7 L Phosphorus 5.5 H Magnesium 1.8 Total Bilirubin 0.8 AST 21 ALT 30 Alkaline Phosphatase 116 Total Protein 6.1 L Albumin 3.0 L Globulin 3.1 Albumin/Globulin Ratio 1.0 Procalcitonin Arterial Blood Potassium Urine Color Urine Clarity Urine pH Ur Specific [place] Urine Protein Urine Glucose (UA) Urine Ketones Urine Blood Urine Nitrate Urine Bilirubin Urine Urobilinogen Ur Leukocyte Esterase Urine WBC (Auto) Urine RBC (Auto) Ur Squamous Epith Cells Amorphous Sediment Urine Bacteria Ur Random Creatinine 05/27/16 05/27/16 05/27/16 08:42 09:38 10:55 WBC 43.3 H* RBC 4.96 Hgb 14.4 Hct 44.2 MCV 89.1 MCH 29.0 MCHC 32.6 L RDW 17.0 H Plt Count 85 L MPV 10.0 Neut % (Auto) 87.3 H Lymph % (Auto) 5.9 L Mora % (Auto) 6.6 Eos % (Auto) 0.1 Baso % (Auto) 0.1 Neut # 37.8 H Lymph # 2.6 Mora # 2.9 H Eos # 0.0 Baso # 0.1 Neutrophils % (Manual) Band Neutrophils % Lymphocytes % (Manual) Monocytes % (Manual) Platelet Estimate Large Platelets RBC Morphology Smear Path Review PT 13.9 H INR 1.2 APTT 86 H D Puncture Site Rra pCO2 50 H pO2 93 HCO3 20.0 L ABG pH 7.24 L ABG Total CO2 22.9 ABG O2 Saturation 98.6 H ABG Base Excess -6.3 L Philippe Test Pos ABG Potassium 5.2 Glucose 352 H Lactate 1.0 Liter Flow 3.0 Sodium 132.0 129 L Potassium 5.5 H Chloride 101.0 92 L Carbon Dioxide 26 Anion Gap 17 BUN 68 H Creatinine 2.8 H Est GFR ( Amer) 30 Est GFR (Non-Af Amer) 25 POC Glucose (mg/dL) Random Glucose 324 H Calcium 8.0 L Phosphorus 5.5 H Magnesium 1.9 Total Bilirubin 0.8 AST 19 ALT 39 Alkaline Phosphatase 112 Total Protein 6.1 L Albumin 2.7 L Globulin 3.5 Albumin/Globulin Ratio 0.8 L Procalcitonin 31.81 H Arterial Blood Potassium 5.2 Urine Color Urine Clarity Urine pH Ur Specific [place] Urine Protein Urine Glucose (UA) Urine Ketones Urine Blood Urine Nitrate Urine Bilirubin Urine Urobilinogen Ur Leukocyte Esterase Urine WBC (Auto) Urine RBC (Auto) Ur Squamous Epith Cells Amorphous Sediment Urine Bacteria Ur Random Creatinine 05/27/16 05/27/16 05/27/16 11:22 11:23 11:57 WBC RBC Hgb Hct MCV MCH MCHC RDW Plt Count MPV Neut % (Auto) Lymph % (Auto) Mora % (Auto) Eos % (Auto) Baso % (Auto) Neut # Lymph # Mora # Eos # Baso # Neutrophils % (Manual) Band Neutrophils % Lymphocytes % (Manual) Monocytes % (Manual) Platelet Estimate Large Platelets RBC Morphology Smear Path Review PT INR APTT Puncture Site pCO2 pO2 HCO3 ABG pH ABG Total CO2 ABG O2 Saturation ABG Base Excess Philippe Test ABG Potassium Glucose Lactate Liter Flow Sodium Potassium Chloride Carbon Dioxide Anion Gap BUN Creatinine Est GFR ( Amer) Est GFR (Non-Af Amer) POC Glucose (mg/dL) 353 H Random Glucose Calcium Phosphorus Magnesium Total Bilirubin AST ALT Alkaline Phosphatase Total Protein Albumin Globulin Albumin/Globulin Ratio Procalcitonin Arterial Blood Potassium Urine Color Yellow Yellow Urine Clarity Hazy Hazy Urine pH 5.0 5.0 Ur Specific [place] 1.013 1.015 Urine Protein 2+ H 2+ H Urine Glucose (UA) 3+ H 2+ H Urine Ketones Negative Negative Urine Blood 1+ H 1+ H Urine Nitrate Negative Negative Urine Bilirubin Negative Negative Urine Urobilinogen Normal Normal Ur Leukocyte Esterase Neg Neg Urine WBC (Auto) 3 4 Urine RBC (Auto) 9 H 7 H Ur Squamous Epith Cells < 1 2 Amorphous Sediment Few H Occ H Urine Bacteria Rare Ur Random Creatinine 05/27/16 05/27/16 05/27/16 12:26 12:37 16:36 WBC RBC Hgb Hct MCV MCH MCHC RDW Plt Count MPV Neut % (Auto) Lymph % (Auto) Mora % (Auto) Eos % (Auto) Baso % (Auto) Neut # Lymph # Mora # Eos # Baso # Neutrophils % (Manual) Band Neutrophils % Lymphocytes % (Manual) Monocytes % (Manual) Platelet Estimate Large Platelets RBC Morphology Smear Path Review PT INR APTT Puncture Site Rra pCO2 52 H pO2 79 L HCO3 20.0 L ABG pH 7.23 L ABG Total CO2 23.4 ABG O2 Saturation 97.2 ABG Base Excess -6.2 L Philippe Test Pos ABG Potassium 4.7 Glucose 233 H Lactate 1.0 Liter Flow 3.0 Sodium 131.0 L 128 L Potassium 5.4 H Chloride 103.0 92 L Carbon Dioxide 26 Anion Gap 17 BUN 66 H Creatinine 2.9 H Est GFR ( Amer) 28 Est GFR (Non-Af Amer) 24 POC Glucose (mg/dL) 223 H Random Glucose 253 H Calcium 8.0 L Phosphorus Magnesium Total Bilirubin AST ALT Alkaline Phosphatase Total Protein Albumin Globulin Albumin/Globulin Ratio Procalcitonin Arterial Blood Potassium 4.7 Urine Color Urine Clarity Urine pH Ur Specific [place] Urine Protein Urine Glucose (UA) Urine Ketones Urine Blood Urine Nitrate Urine Bilirubin Urine Urobilinogen Ur Leukocyte Esterase Urine WBC (Auto) Urine RBC (Auto) Ur Squamous Epith Cells Amorphous Sediment Urine Bacteria Ur Random Creatinine Assessment & Plan - Assessment and Plan (Free Text) Assessment: Pt is 45M with sepsis, bacteremic with gram negative rods (source currently unknown) and chronic right lower extremity DVT. Plan: Continue with care as per medical team. Will be available for re-evaluation if needed. Thank you for consult. - Date & Time Date: 05/27/16 Time: 18:50 <Melisa Lopez - Last Filed: 06/01/16 08:12> Meds - Medications Medications: Current Medications Apixaban (Eliquis) 10 mg PO BID [facility] Stop: 06/05/16 10:01 Last Admin: 05/31/16 17:26 Dose: 10 mg Aspirin (Aspirin Chewable) 81 mg PO DAILY [facility] Last Admin: 05/31/16 09:35 Dose: 81 mg Docusate Sodium (Colace) 100 mg PO BID [facility] Last Admin: 05/31/16 17:26 Dose: 100 mg Famotidine (Pepcid) 20 mg PO DAILY [facility] Last Admin: 05/31/16 09:35 Dose: 20 mg Aztreonam 1 gm/ Sodium (Chloride) 100 mls @ 100 mls/hr IVPB Q12H [facility] Last Admin: 06/01/16 04:00 Dose: 100 mls/hr Cefepime HCl (Maxipime Iv 1 Gm Premix) 50 mls @ 100 mls/hr IVPB Q12 [facility] Last Admin: 05/31/16 21:50 Dose: 100 mls/hr Insulin Aspart (Novolog) 12 unit SC ACTID [facility] Last Admin: 06/01/16 08:03 Dose: 12 unit Insulin Detemir (Levemir) 30 unit SC Q12 [facility] Last Admin: 05/31/16 21:50 Dose: 30 unit Insulin Human Regular (Novolin R) 0 unit SC ACHS [facility] PRN Reason: Protocol Last Admin: 06/01/16 08:04 Dose: Not Given Montelukast Sodium (Singulair) 10 mg PO HS [facility] Last Admin: 05/31/16 21:48 Dose: 10 mg Morphine Sulfate (Morphine) 4 mg IVP Q3 PRN PRN Reason: Pain, moderate (4-7) Last Admin: 05/31/16 17:23 Dose: 4 mg Oxycodone/Acetaminophen (Percocet 5/325 Mg Tab) 1 tab PO Q4H PRN PRN Reason: Pain, moderate (4-7) Stop: 06/03/16 10:06 Last Admin: 06/01/16 08:06 Dose: 1 tab Fluticasone/Salmeterol (Advair Diskus 250/50) 2 puff IH RQ12 [facility] Last Admin: 06/01/16 07:55 Dose: 1 puff Results - Vital Signs Recent Vital Signs: Last Vital Signs Temp 98.2 F 06/01/16 08:04 Pulse 107 H 06/01/16 08:04 Resp 20 06/01/16 08:04 BP 150/88 06/01/16 08:04 Pulse Ox 95 06/01/16 08:04 - Labs Result Diagrams: 06/01/16 07:05 06/01/16 07:05 Labs: Laboratory Results - last 24 hr 05/29/16 05/31/16 05/31/16 06:04 07:23 11:51 WBC RBC Hgb Hct MCV MCH MCHC RDW Plt Count MPV Neut % (Auto) Lymph % (Auto) Mora % (Auto) Eos % (Auto) Baso % (Auto) Neut # Lymph # Mora # Eos # Baso # Sodium 137 Potassium 5.1 Chloride 99 Carbon Dioxide 32 H Anion Gap 11 BUN 55 H Creatinine 1.7 H Est GFR ( Amer) 53 Est GFR (Non-Af Amer) 44 POC Glucose (mg/dL) 246 H Random Glucose 183 H Calcium 8.3 L Phosphorus 4.0 Magnesium 2.0 Total Bilirubin 1.2 AST 33 ALT 34 Alkaline Phosphatase 190 H D Total Protein 5.8 L Albumin 2.7 L Globulin 3.2 Albumin/Globulin Ratio 0.8 L U Random Total Protein Ur Total Protein 24 Hr [id number] Ab >150 H Beta-2 GPI IgG Ab 91 H Beta-2 GPI IgM Ab <9 Anti-Cardiolipin IgG Ab 109 H Anti-Cardiolipin IgA Ab >150 H Anti-Cardiolipin IgM Ab <12 05/31/16 05/31/16 05/31/16 12:36 16:40 21:45 WBC RBC Hgb Hct MCV MCH MCHC RDW Plt Count MPV Neut % (Auto) Lymph % (Auto) Mora % (Auto) Eos % (Auto) Baso % (Auto) Neut # Lymph # Mora # Eos # Baso # Sodium Potassium Chloride Carbon Dioxide Anion Gap BUN Creatinine Est GFR ( Amer) Est GFR (Non-Af Amer) POC Glucose (mg/dL) 225 H 192 H Random Glucose Calcium Phosphorus Magnesium Total Bilirubin AST ALT Alkaline Phosphatase Total Protein Albumin Globulin Albumin/Globulin Ratio U Random Total Protein 2522 H Ur Total Protein 24 Hr [id number] H [id number] Ab Beta-2 GPI IgG Ab Beta-2 GPI IgM Ab Anti-Cardiolipin IgG Ab Anti-Cardiolipin IgA Ab Anti-Cardiolipin IgM Ab 06/01/16 06/01/16 06:35 07:05 WBC 18.9 H RBC 4.83 Hgb 14.2 Hct 42.9 MCV 88.9 MCH 29.4 MCHC 33.0 RDW 16.2 H Plt Count 133 MPV 10.6 Neut % (Auto) 75.8 H Lymph % (Auto) 5.5 L Mora % (Auto) 11.3 H Eos % (Auto) 6.5 H Baso % (Auto) 0.9 Neut # 14.3 H Lymph # 1.0 Mora # 2.1 H Eos # 1.2 H Baso # 0.2 Sodium 136 Potassium 4.5 Chloride 99 Carbon Dioxide 29 Anion Gap 13 BUN 48 H Creatinine 1.6 H Est GFR ( Amer) 57 Est GFR (Non-Af Amer) 47 POC Glucose (mg/dL) 148 H Random Glucose 165 H Calcium 8.3 L Phosphorus 3.8 Magnesium 1.9 Total Bilirubin 1.1 AST 35 ALT 37 Alkaline Phosphatase 220 H Total Protein 5.8 L Albumin 2.7 L Globulin 3.1 Albumin/Globulin Ratio 0.9 L U Random Total Protein Ur Total Protein 24 Hr [id number] Ab Beta-2 GPI IgG Ab Beta-2 GPI IgM Ab Anti-Cardiolipin IgG Ab Anti-Cardiolipin IgA Ab Anti-Cardiolipin IgM Ab Attending/Attestation - Attestation I have personally seen and examined this patient.: Yes I have fully participated in the care of the patient.: Yes I have reviewed all pertinent clinical information: Yes Notes (Text): 05/27/16 19:10 Patient seen and examined on medical floor. consult requested for sepsis. Patient is doing well with current treatment, VS wnl, stable and complaints only of right leg pain (right leg cellulites source of sepsis). Does not need icu admission.
--- NOTE | 2016-05-27 18:53 | CP.PCM.PN ---
<Thelma Santiago DO - Last Filed: 05/27/16 18:50> Subjective - Date & Time of Evaluation Date of Evaluation: 05/27/16 Time of Evaluation: 08:45 - Subjective Subjective: PGY1 on Dr. Guerra's service: Patient seen and examined multiple times during the day. Code sepsis called early this morning at 8:35am. Patient is on antibiotic coverage and ID is on board. Patient with pain and swelling in right lower extremity and patient is advised to keep leg elevated. Patient due for CT abdomen, but had initially refused the PO contrast as he thought it would impact his renal function. Patient also had elevated potassium this morning. Kayexalate, calcium gluconate , insulin, and duonebs given. Objective - Vital Signs/Intake and Output Vital Signs (last 24 hours): Temp Pulse Resp BP Pulse Ox 98.5 F 98 H 18 126/81 96 05/27/16 16:38 05/27/16 16:38 05/27/16 16:38 05/27/16 16:38 05/27/16 16:38 Intake and Output: 05/27/16 05/27/16 06:59 18:59 Intake Total 700 855 Output Total 300 900 Balance 400 -45 - Medications Medications: Current Medications Albuterol/Ipratropium (Duoneb 3 Mg/0.5 Mg (3 Ml) Ud) 3 ml INH RQ6 PRN PRN Reason: Shortness of Breath Last Admin: 05/26/16 13:46 Dose: 3 ml Aspirin (Aspirin Chewable) 81 mg PO DAILY [facility] Last Admin: 05/27/16 10:40 Dose: 81 mg Docusate Sodium (Colace) 100 mg PO BID [facility] Last Admin: 05/27/16 10:37 Dose: 100 mg Famotidine (Pepcid) 20 mg PO DAILY [facility] Last Admin: 05/27/16 10:37 Dose: 20 mg Piperacillin Sod/Tazobactam Sod (Zosyn 2.25 Gm Iv Premix) 50 mls @ 100 mls/hr IVPB Q8H [facility] Last Admin: 05/27/16 13:13 Dose: 100 mls/hr Sodium Chloride (Sodium Chloride 0.9%) 1,000 mls @ 75 mls/hr IV .[id number] [facility] Last Admin: 05/27/16 13:34 Dose: Not Given Aztreonam 1 gm/ Sodium (Chloride) 100 mls @ 100 mls/hr IVPB Q12H [facility] Last Admin: 05/27/16 16:52 Dose: 100 mls/hr Heparin Sodium/Sodium Chloride (Heparin 83546 Units/250ml 1/2 Normal Saline) 250 mls @ 16.057 mls/hr IV .[id number] PRN; Protocol; 12 UNITS/KG/HR PRN Reason: PROTOCOL Last Admin: 05/27/16 14:03 Dose: 16.057 mls/hr Metronidazole (Flagyl) 100 mls @ 100 mls/hr IVPB Q12H [facility] Last Admin: 05/27/16 16:46 Dose: 100 mls/hr Insulin Aspart (Novolog) 12 unit SC ACTID [facility] Last Admin: 05/27/16 17:04 Dose: 12 unit Insulin Detemir (Levemir) 30 unit SC Q12 [facility] Last Admin: 05/27/16 10:44 Dose: Not Given Insulin Human Regular (Novolin R) 0 unit SC ACHS [facility] PRN Reason: Protocol Last Admin: 05/27/16 17:03 Dose: 2 unit Montelukast Sodium (Singulair) 10 mg PO HS [facility] Last Admin: 05/26/16 22:40 Dose: 10 mg Morphine Sulfate (Morphine) 4 mg IVP Q4 PRN PRN Reason: Pain, moderate (4-7) Last Admin: 05/27/16 16:52 Dose: 4 mg Pneumococcal Polyvalent Vaccine (Pneumovax 23 Vaccine) 0.5 ml IM .ONCE ONE Stop: 05/27/16 20:01 Prednisone (Prednisone Tab) 40 mg PO DAILY [facility] Last Admin: 05/27/16 10:37 Dose: 40 mg Fluticasone/Salmeterol (Advair Diskus 250/50) 2 puff IH Q12 [facility] Last Admin: 05/27/16 10:58 Dose: Not Given - Labs Labs: 05/27/16 09:38 05/27/16 12:37 PT 13.9 SECONDS (9.7-12.2) H 05/27/16 09:38 INR 1.2 05/27/16 09:38 APTT 86 SECONDS (21-34) H D 05/27/16 09:38 - Constitutional Appears: No Acute Distress - Head Exam Head Exam: ATRAUMATIC, NORMOCEPHALIC - Eye Exam Eye Exam: EOMI - ENT Exam ENT Exam: Mucous Membranes Moist - Respiratory Exam Respiratory Exam: Decreased Breath Sounds - Cardiovascular Exam Cardiovascular Exam: +S1, +S2 - GI/Abdominal Exam GI & Abdominal Exam: Soft, Normal Bowel Sounds. absent: Tenderness - Extremities Exam Additional comments: right lower extremity with swelling and erythema that extends to thigh - Neurological Exam Neurological Exam: Alert, Awake - Psychiatric Exam Psychiatric exam: Normal Affect - Skin Skin Exam: Rash (erythema right leg), Warm Assessment and Plan - Assessment and Plan (Free Text) Assessment: Right lower extremity swelling/pain - likely secondary to known DVT vs cellulitis - Pain, erythema and swelling - afebrile, but admits to chills/night sweats - Leukocytosis with bandemia secondary to cellulitis vs steroid use Diagnostic studies - Art duplex study negative 05/25 - Repeat venous doppler 05/26 - shows known clot that extends at least to iliac vein on right Consults - Vascular surgery ([place]) - would recommend thrombolysis but will hold for elevated CR, will continue to follow - ID (Salma) - recommends continuing Zosyn and adding Azactam. Also to get echo and CT abd pelvis. 05/27- added flagyl Meds - Given Ancef and Vancomycin 05/25 in ED - Cont Zosyn, renal dose Q8H - cont Azactam 1gm Q12H - flagyl 500q12 started 05/27 - Morphine 4mg Q4h PRN for pain - Procalcitonin - 31.81 - Continue to monitor labs - Elevate leg - 05/27- heparin drip started Bacteremia - Blood cx (05/25) - gram neg rods identification pending - ID (Salma) consulted - Cont Zosyn, renal dose Q8H - cont Azactam 1gm Q12H - 05/27- add flagyl - Afebrile Acute renal failure on Chronic Kidney disease - Nephro [place]) consulted - help appreciated, f/u recs - Cr trending up, 2.9 today. 1.5 on admission - Gently IVF hydration considering hx of HF. NS at 75 cc/hr Leukosytosis - secondary to cellulitis vs steroid use - Abx as above - monitor for fever - AM labs COPD/asthma - Duonebs 3ml INH q6h [facility] - Home Advair - prednisone 40mg daily - home Singulair 10mg PO HS Biventricular heart failure - 01/2016 ECHO- LV EF 60-65%, mild pulmonary HTN (see full report) - repeat echo pending - Evaluated by Dr Rodriguez on last admission for NSTEMI - home lasix - held for elevated Cr DM - A1C 11.0 - home regimen of Levemir and Novolog - ISS - Heart healthy/diabetic diet HTN - Continue home meds - Monitor vitals q4h and adjust as needed CAD - hx NSTEMI - Crestor 20mg PO HS Prophylactic measures - SCDs contraindicated due to DVT - Xarelto 20mg PO daily- discontinued due to reduced GFR, started on heparin drip - ASA 81mg PO daily - Pepcid 20mg PO daily <Heaven Guerra V - Last Filed: 05/30/16 08:03> Objective - Vital Signs/Intake and Output Vital Signs (last 24 hours): Temp Pulse Resp BP Pulse Ox 98.0 F 90 20 145/83 97 05/29/16 23:00 05/30/16 01:00 05/29/16 23:00 05/29/16 23:00 05/29/16 23:00 Intake and Output: 05/30/16 05/30/16 06:59 18:59 Output Total 4400 Balance -4400 - Medications Medications: Current Medications Albuterol/Ipratropium (Duoneb 3 Mg/0.5 Mg (3 Ml) Ud) 3 ml INH RQ6 PRN PRN Reason: Shortness of Breath Last Admin: 05/26/16 13:46 Dose: 3 ml Apixaban (Eliquis) 10 mg PO BID [facility] Stop: 06/05/16 10:01 Last Admin: 05/29/16 17:52 Dose: 10 mg Aspirin (Aspirin Chewable) 81 mg PO DAILY [facility] Last Admin: 05/29/16 09:32 Dose: 81 mg Docusate Sodium (Colace) 100 mg PO BID [facility] Last Admin: 05/29/16 17:52 Dose: 100 mg Famotidine (Pepcid) 20 mg PO DAILY [facility] Last Admin: 05/29/16 09:29 Dose: 20 mg Aztreonam 1 gm/ Sodium (Chloride) 100 mls @ 100 mls/hr IVPB Q12H [facility] Last Admin: 05/30/16 03:32 Dose: 100 mls/hr Sodium Chloride (Sodium Chloride 0.9%) 1,000 mls @ 50 mls/hr IV .Q20H [facility] Last Admin: 05/30/16 01:58 Dose: Not Given Cefepime HCl (Maxipime Iv 1 Gm Premix) 50 mls @ 100 mls/hr IVPB Q24H [facility] Last Admin: 05/29/16 20:38 Dose: 100 mls/hr Insulin Aspart (Novolog) 12 unit SC ACTID [facility] Last Admin: 05/29/16 17:01 Dose: 12 unit Insulin Detemir (Levemir) 30 unit SC Q12 [facility] Last Admin: 05/29/16 21:51 Dose: 30 unit Insulin Human Regular (Novolin R) 0 unit SC ACHS [facility] PRN Reason: Protocol Last Admin: 05/30/16 07:48 Dose: Not Given Montelukast Sodium (Singulair) 10 mg PO HS [facility] Last Admin: 05/29/16 21:51 Dose: 10 mg Morphine Sulfate (Morphine) 4 mg IVP Q3 PRN PRN Reason: Pain, moderate (4-7) Last Admin: 05/30/16 06:45 Dose: 4 mg Fluticasone/Salmeterol (Advair Diskus 250/50) 2 puff IH RQ12 [facility] Last Admin: 05/29/16 19:46 Dose: 2 puff - Labs Labs: 05/29/16 06:04 05/30/16 06:53 PT 13.9 SECONDS (9.7-12.2) H 05/27/16 09:38 INR 1.2 05/27/16 09:38 APTT 65 SECONDS (21-34) H 05/29/16 10:50 Attending/Attestation - Attestation I have personally seen and examined this patient.: Yes I have fully participated in the care of the patient.: Yes I have reviewed all pertinent clinical information, including history, physical exam and plan: Yes Notes (Text): This is late entry for 05/27/16. Patient was called a code sepsis in the morning. Please refer to sepsis progress notes for further details. Lactate: 1.0 and was repeated per protocol. Responded to code sepsis with resident. Discussed with ID nurse, Blanca Ahmadi. Patient seen, examined, and case discussed with daytime resident. Discussed with patient regarding code status, patient is FULL Code. Patient has persistent leukocytosis and treated for his hyperkalemia with Duonebs, Insulin, Kaxyelate, and monitored during the day. patient has not no acute chest complaints, denies shortness of breath. Patient reports pain associated with right lower extremity as well as swelling. Patient recommended for thrombolysis however given Cr unable to have procedure. Patient switched over from Xarelto given GFR<30 to Heparin in attempts to anticoagulate the Right side DVT. Discussed with infectious disease (Dr. Marsh)-->patient started on Flagyl in addition to Zosyn and Aztreonam. Patient is pending results of CT abdomen/ pelvis PO contrast. Patient was hesistant on taking the PO contrast because he was thought it would affect his kidney.s Discussed with nephrology (dr. Garcia) given his rising Creatinine. Will come evaluate the patient. There was question if patient received CT venogram for his DVT, and patient DID NOT. He had a repeat doppler which confirmed DVT. Pending Speciation of blood cultures-->internet architect spoke with microbiology, will not be available until tomorrow 05/28/16. Patient is currently on PO steroid, was initially on IV steroids at the beginning of the admission. Discussed with ICU, patient is not an ICU candidate at this time.
[2016-05-27] MEDS ORDERED: Pneumococcal 23-Valent Vaccine IM ONE (20:00)
[2016-05-28] MEDS: Heparin25000 units/250ml 1/2NS 250 ML IV PRN ×3 (00:10→14:28)
[2016-05-28] MEDS: metroNIDAZOLE IV 500 mg/100 ml 100 ML IVPB SCH ×2 (03:53→14:35)
[2016-05-28] MEDS: Aztreonam 1 GM in Sodium Chloride 0.9% 100 ML IVPB SCH ×2 (03:53→16:00)
[2016-05-28 07:29] LABS: BASO % 0.1 % (0.0-2.0); EOS % 0.1 % (0.0-4.0); HEMATOCRIT 43.2 % (35.0-51.0); LYMPH # 1.8 K/uL (1.0-4.3); LYMPH % 6.2 % (20.0-40.0); MEAN CELL VOLUME 88.2 fL (80.0-94.0); MEAN CORPUSCULAR HGB CONC 32.9 g/dL (33.0-37.0); MEAN PLATELET VOLUME 11.4 fL (7.2-11.7); MONO # 3.3 K/uL (0.0-0.8); MONO % 11.3 % (0.0-10.0); NRBC % 0.2 % (0.0-2.0); PLATELET COUNT 70 K/uL (130-400); RED CELL DISTRIBUTION WIDTH 17.2 % (11.5-14.5); WHITE BLOOD COUNT 29.5 K/uL (4.8-10.8)
[2016-05-28 07:31] LABS: POTASSIUM 4.8 mmol/L (3.6-5.2)
[2016-05-28 07:33] LABS: ALB/GLOB RATIO 0.9 (1.0-2.1); BILIRUBIN,TOTAL 0.9 mg/dL (0.2-1.3); TOTAL PROTEIN 6.1 g/dL (6.3-8.3)
[2016-05-28 07:34] LABS: CALCIUM 7.6 mg/dl (8.6-10.4); PHOSPHOROUS 5.4 mg/dL (2.5-4.5)
--- NOTE | 2016-05-28 07:55 | CP.PCM.PN ---
Subjective - Date & Time of Evaluation Date of Evaluation: 05/28/16 Time of Evaluation: 07:53 - Subjective Subjective: Surgery: Dr. Ortega Patient doing well, states he feels much better. He states the swelling in the RLE is much better. He denies f/c/n/v. Objective - Vital Signs/Intake and Output Vital Signs (last 24 hours): Temp Pulse Resp BP Pulse Ox 98.6 F 107 H 20 144/79 95 05/27/16 23:15 05/27/16 23:15 05/27/16 23:15 05/27/16 23:15 05/27/16 23:15 Intake and Output: 05/28/16 05/28/16 06:59 18:59 Output Total 1200 Balance -1200 - Medications Medications: Current Medications Albuterol/Ipratropium (Duoneb 3 Mg/0.5 Mg (3 Ml) Ud) 3 ml INH RQ6 PRN PRN Reason: Shortness of Breath Last Admin: 05/26/16 13:46 Dose: 3 ml Aspirin (Aspirin Chewable) 81 mg PO DAILY [facility] Last Admin: 05/27/16 10:40 Dose: 81 mg Docusate Sodium (Colace) 100 mg PO BID [facility] Last Admin: 05/27/16 21:58 Dose: 100 mg Famotidine (Pepcid) 20 mg PO DAILY [facility] Last Admin: 05/27/16 10:37 Dose: 20 mg Piperacillin Sod/Tazobactam Sod (Zosyn 2.25 Gm Iv Premix) 50 mls @ 100 mls/hr IVPB Q8H [facility] Last Admin: 05/27/16 20:30 Dose: 100 mls/hr Sodium Chloride (Sodium Chloride 0.9%) 1,000 mls @ 75 mls/hr IV .[id number] [facility] Last Admin: 05/27/16 13:34 Dose: Not Given Aztreonam 1 gm/ Sodium (Chloride) 100 mls @ 100 mls/hr IVPB Q12H [facility] Last Admin: 05/28/16 03:53 Dose: 100 mls/hr Metronidazole (Flagyl) 100 mls @ 100 mls/hr IVPB Q12H [facility] Last Admin: 05/28/16 03:53 Dose: 100 mls/hr Heparin Sodium/Sodium Chloride (Heparin 08440 Units/250ml 1/2 Normal Saline) 250 mls @ 9.043 mls/hr IV .Q24H PRN; Protocol PRN Reason: PROTOCOL Last Admin: 05/28/16 00:10 Dose: 12.043 mls/hr Insulin Aspart (Novolog) 12 unit SC ACTID [facility] Last Admin: 05/27/16 17:04 Dose: 12 unit Insulin Detemir (Levemir) 30 unit SC Q12 [facility] Last Admin: 05/27/16 21:58 Dose: 30 unit Insulin Human Regular (Novolin R) 0 unit SC ACHS [facility] PRN Reason: Protocol Last Admin: 05/27/16 21:48 Dose: Not Given Montelukast Sodium (Singulair) 10 mg PO HS [facility] Last Admin: 05/27/16 21:58 Dose: 10 mg Morphine Sulfate (Morphine) 4 mg IVP Q4 PRN PRN Reason: Pain, moderate (4-7) Last Admin: 05/28/16 04:10 Dose: 4 mg Prednisone (Prednisone Tab) 40 mg PO DAILY [facility] Last Admin: 05/27/16 10:37 Dose: 40 mg Fluticasone/Salmeterol (Advair Diskus 250/50) 2 puff IH Q12 [facility] Last Admin: 05/27/16 10:58 Dose: Not Given - Labs Labs: 05/28/16 06:56 05/28/16 06:56 PT 13.9 SECONDS (9.7-12.2) H 05/27/16 09:38 INR 1.2 05/27/16 09:38 APTT 118 SECONDS (21-34) H* D 05/28/16 06:56 - Constitutional Appears: Non-toxic, No Acute Distress - Head Exam Head Exam: ATRAUMATIC, NORMOCEPHALIC - Eye Exam Eye Exam: EOMI, Normal appearance - ENT Exam ENT Exam: Mucous Membranes Moist - Respiratory Exam Respiratory Exam: NORMAL BREATHING PATTERN. absent: Respiratory Distress - Cardiovascular Exam Cardiovascular Exam: REGULAR RHYTHM. absent: Tachycardia - GI/Abdominal Exam GI & Abdominal Exam: Soft. absent: Distended - Extremities Exam Extremities Exam: Pedal Edema. absent: Calf Tenderness Additional comments: mild erythema - Neurological Exam Neurological Exam: Alert, Awake Assessment and Plan - Assessment and Plan (Free Text) Assessment: 45 y/o male w/ RLE cellulitis w/ recurrent DVT-swelling improved Plan: -swelling seems to be improving -cont abx -cont leg elevation -cont anticoagulation -conservative treatment -no surgical intervention at this time -further recs per Dr. Jordan Morel PGY1
[2016-05-28] MEDS: (Novolin R) Insulin Human Regular 100 units/ml vial SC SCH ×4 (08:17→21:43)
[2016-05-28] MEDS: (Novolog) Insulin Aspart, Recombinant 100 u/ml 10 ml vial SC SCH ×3 (08:17→17:00)
--- NOTE | 2016-05-28 08:48 | CP.PCM.PN ---
Subjective - Date & Time of Evaluation Date of Evaluation: 05/28/16 Time of Evaluation: 08:30 - Subjective Subjective: Patient was seen and examined by me. I reviewed previous days notes and discussed with the staff. Per review of notes vascular surgery is suggesting thrombolysis of the lower extremity DVT however the patient's kidney function would not allow this. He is currently on slow IVF. Medications such as losartan and xarelto were held. He is temporarily on heparin ggt at this time. When I saw him today he denied chest pain, denied palpitation, denied abdominal pain, denied bathroom problems. Denied headache, denied fever, denied chills, denied headache. He denied shortness of breath - this is an improvement over before. He continues to be on abx for the cellulitis of that lower extremity. WBC is decreasing however the IV solumedrol was just decreased. He also just had an abdominal ultrasound and also a CT of the abd and pelvis to try to see if there is any acute process that could explain the pre-liminary gram negative [place] in blood culture. He did report ongoing right lower extremity leg pain and swelling. On exam its warm, swollen, edema pitting as well. Objective - Vital Signs/Intake and Output Vital Signs (last 24 hours): Temp Pulse Resp BP Pulse Ox 98.5 F 88 20 135/78 96 05/28/16 08:08 05/28/16 08:08 05/28/16 08:08 05/28/16 08:08 05/28/16 08:08 Intake and Output: 05/28/16 05/28/16 06:59 18:59 Output Total 1200 Balance -1200 - Medications Medications: Current Medications Albuterol/Ipratropium (Duoneb 3 Mg/0.5 Mg (3 Ml) Ud) 3 ml INH RQ6 PRN PRN Reason: Shortness of Breath Last Admin: 05/26/16 13:46 Dose: 3 ml Aspirin (Aspirin Chewable) 81 mg PO DAILY [facility] Last Admin: 05/27/16 10:40 Dose: 81 mg Docusate Sodium (Colace) 100 mg PO BID [facility] Last Admin: 05/27/16 21:58 Dose: 100 mg Famotidine (Pepcid) 20 mg PO DAILY [facility] Last Admin: 05/27/16 10:37 Dose: 20 mg Piperacillin Sod/Tazobactam Sod (Zosyn 2.25 Gm Iv Premix) 50 mls @ 100 mls/hr IVPB Q8H [facility] Last Admin: 05/27/16 20:30 Dose: 100 mls/hr Sodium Chloride (Sodium Chloride 0.9%) 1,000 mls @ 75 mls/hr IV .[id number] [facility] Last Admin: 05/27/16 13:34 Dose: Not Given Aztreonam 1 gm/ Sodium (Chloride) 100 mls @ 100 mls/hr IVPB Q12H [facility] Last Admin: 05/28/16 03:53 Dose: 100 mls/hr Metronidazole (Flagyl) 100 mls @ 100 mls/hr IVPB Q12H [facility] Last Admin: 05/28/16 03:53 Dose: 100 mls/hr Heparin Sodium/Sodium Chloride (Heparin 19124 Units/250ml 1/2 Normal Saline) 250 mls @ 9.043 mls/hr IV .Q24H PRN; Protocol PRN Reason: PROTOCOL Last Admin: 05/28/16 00:10 Dose: 12.043 mls/hr Insulin Aspart (Novolog) 12 unit SC ACTID [facility] Last Admin: 05/28/16 08:17 Dose: 12 unit Insulin Detemir (Levemir) 30 unit SC Q12 [facility] Last Admin: 05/27/16 21:58 Dose: 30 unit Insulin Human Regular (Novolin R) 0 unit SC ACHS [facility] PRN Reason: Protocol Last Admin: 05/28/16 08:17 Dose: 1 unit Montelukast Sodium (Singulair) 10 mg PO HS [facility] Last Admin: 05/27/16 21:58 Dose: 10 mg Morphine Sulfate (Morphine) 4 mg IVP Q4 PRN PRN Reason: Pain, moderate (4-7) Last Admin: 05/28/16 08:16 Dose: 4 mg Prednisone (Prednisone Tab) 40 mg PO DAILY [facility] Last Admin: 05/27/16 10:37 Dose: 40 mg Fluticasone/Salmeterol (Advair Diskus 250/50) 2 puff IH Q12 [facility] Last Admin: 05/27/16 10:58 Dose: Not Given - Labs Labs: 05/28/16 06:56 05/28/16 06:56 PT 13.9 SECONDS (9.7-12.2) H 05/27/16 09:38 INR 1.2 05/27/16 09:38 APTT 118 SECONDS (21-34) H* D 05/28/16 06:56 - Constitutional Appears: Well, Non-toxic - Head Exam Head Exam: NORMAL INSPECTION - Eye Exam Eye Exam: EOMI, Normal appearance - ENT Exam ENT Exam: Mucous Membranes Moist - Respiratory Exam Respiratory Exam: Clear to Ausculation Bilateral, NORMAL BREATHING PATTERN - GI/Abdominal Exam GI & Abdominal Exam: Soft, Normal Bowel Sounds - Neurological Exam Neurological Exam: Alert, Awake, CN II-XII Intact, Oriented x3 Neuro motor strength exam: Left Upper Extremity: 5, Right Upper Extremity: 5 - Psychiatric Exam Psychiatric exam: Normal Affect, Normal Mood - Skin Skin Exam: Normal Color, Warm Assessment and Plan - Assessment and Plan (Free Text) Assessment: Right lower extremity swelling/pain 05/28: Hopefully at some point if creatine and renal function improve can get thrombolysis. Now on heparin ggt at this time. Off of Xarelto - likely secondary to known DVT vs cellulitis - Pain, erythema and swelling - afebrile, but admits to chills/night sweats - Leukocytosis with bandemia secondary to cellulitis vs steroid use Diagnostic studies - Art duplex study negative 05/25 - Repeat venous doppler 05/26 - shows known clot that extends at least to iliac vein on right Consults - Vascular surgery ([place]) - would recommend thrombolysis but will hold for elevated CR, will continue to follow - ID (Salma) - recommends continuing Zosyn and adding Azactam. Also to get echo and CT abd pelvis. 05/27- added flagyl Meds - Given Ancef and Vancomycin 05/25 in ED - Cont Zosyn, renal dose Q8H - cont Azactam 1gm Q12H - flagyl 500q12 started 05/27 - Morphine 4mg Q4h PRN for pain - Procalcitonin - 31.81 - Continue to monitor labs - Elevate leg - 05/27- heparin drip started Bacteremia 05/28: Today WBC decreased to 29. Urine out put is ok, non febrile, and on Zosyn , Azactam, and recently placed on IV flagyl as well. - Blood cx (05/25) - gram neg rods identification pending - ID (Salma) consulted - Cont Zosyn, renal dose Q8H - cont Azactam 1gm Q12H - 05/27- add flagyl - Afebrile Acute renal failure on Chronic Kidney disease 05/28: Currently on slow IVF, monitor renal function. Patient in previous time admissions has had a lot of renal problems and at one point needed HD. - Nephro ([place]) consulted - help appreciated, f/u recs - Cr 1.5 on admission - Gently IVF hydration considering hx of HF. NS at 75 cc/hr Leukosytosis 05/28: Decreased today - secondary to cellulitis vs steroid use - Abx as above - monitor for fever - AM labs COPD/asthma - Duonebs 3ml INH q6h [facility] - Home Advair - prednisone 40mg daily - home Singulair 10mg PO HS Biventricular heart failure - 01/2016 ECHO- LV EF 60-65%, mild pulmonary HTN (see full report) - repeat echo pending - Evaluated by Dr Rodriguez on last admission for NSTEMI - home lasix - held for elevated Cr DM 05/28: Hopefully will improve now that solumedrol has been stopped. Cont to monitor - A1C 11.0 - home regimen of Levemir and Novolog - ISS - Heart healthy/diabetic diet HTN - Continue home meds - Monitor vitals q4h and adjust as needed CAD - hx NSTEMI - Crestor 20mg PO HS Prophylactic measures - SCDs contraindicated due to DVT - Xarelto 20mg PO daily- discontinued due to reduced GFR, started on heparin drip - ASA 81mg PO daily - Pepcid 20mg PO daily
[2016-05-28] MEDS: Fluticasone-Salmeterol 250-50mcg Diskus IH SCH ×2 (09:16→22:13)
--- NOTE | 2016-05-28 09:22 | CP.PCM.PN ---
Subjective - Date & Time of Evaluation Date of Evaluation: 05/28/16 Time of Evaluation: 09:20 - Subjective Subjective: pt seen and examined in bed, complaints of pain in leg no SOB on iv heparin no chest pain UOP 2100 cc labs reviewed ROS- as per HPI, other than that 10 point ROS negative Objective - Vital Signs/Intake and Output Vital Signs (last 24 hours): Temp Pulse Resp BP Pulse Ox 98.5 F 88 20 135/78 96 05/28/16 08:08 05/28/16 08:08 05/28/16 08:08 05/28/16 08:08 05/28/16 08:08 Intake and Output: 05/28/16 05/28/16 06:59 18:59 Output Total 1200 Balance -1200 - Medications Medications: Current Medications Albuterol/Ipratropium (Duoneb 3 Mg/0.5 Mg (3 Ml) Ud) 3 ml INH RQ6 PRN PRN Reason: Shortness of Breath Last Admin: 05/26/16 13:46 Dose: 3 ml Aspirin (Aspirin Chewable) 81 mg PO DAILY [facility] Last Admin: 05/27/16 10:40 Dose: 81 mg Docusate Sodium (Colace) 100 mg PO BID [facility] Last Admin: 05/27/16 21:58 Dose: 100 mg Famotidine (Pepcid) 20 mg PO DAILY [facility] Last Admin: 05/27/16 10:37 Dose: 20 mg Piperacillin Sod/Tazobactam Sod (Zosyn 2.25 Gm Iv Premix) 50 mls @ 100 mls/hr IVPB Q8H [facility] Last Admin: 05/27/16 20:30 Dose: 100 mls/hr Sodium Chloride (Sodium Chloride 0.9%) 1,000 mls @ 75 mls/hr IV .[id number] [facility] Last Admin: 05/27/16 13:34 Dose: Not Given Aztreonam 1 gm/ Sodium (Chloride) 100 mls @ 100 mls/hr IVPB Q12H [facility] Last Admin: 05/28/16 03:53 Dose: 100 mls/hr Metronidazole (Flagyl) 100 mls @ 100 mls/hr IVPB Q12H [facility] Last Admin: 05/28/16 03:53 Dose: 100 mls/hr Heparin Sodium/Sodium Chloride (Heparin 18360 Units/250ml 1/2 Normal Saline) 250 mls @ 9.043 mls/hr IV .Q24H PRN; Protocol PRN Reason: PROTOCOL Last Admin: 05/28/16 09:02 Dose: 12.043 mls/hr Insulin Aspart (Novolog) 12 unit SC ACTID [facility] Last Admin: 05/28/16 08:17 Dose: 12 unit Insulin Detemir (Levemir) 30 unit SC Q12 [facility] Last Admin: 05/27/16 21:58 Dose: 30 unit Insulin Human Regular (Novolin R) 0 unit SC ACHS [facility] PRN Reason: Protocol Last Admin: 05/28/16 08:17 Dose: 1 unit Montelukast Sodium (Singulair) 10 mg PO HS [facility] Last Admin: 05/27/16 21:58 Dose: 10 mg Morphine Sulfate (Morphine) 4 mg IVP Q4 PRN PRN Reason: Pain, moderate (4-7) Last Admin: 05/28/16 08:16 Dose: 4 mg Fluticasone/Salmeterol (Advair Diskus 250/50) 2 puff IH Q12 [facility] Last Admin: 05/28/16 09:16 Dose: Not Given - Labs Labs: 05/28/16 06:56 05/28/16 06:56 PT 13.9 SECONDS (9.7-12.2) H 05/27/16 09:38 INR 1.2 05/27/16 09:38 APTT 118 SECONDS (21-34) H* D 05/28/16 06:56 - Constitutional Appears: Well, Non-toxic - Head Exam Head Exam: ATRAUMATIC, NORMOCEPHALIC - Eye Exam Eye Exam: EOMI, PERRL - ENT Exam ENT Exam: Mucous Membranes Moist - Respiratory Exam Respiratory Exam: Clear to Ausculation Bilateral, NORMAL BREATHING PATTERN. absent: Rhonchi, Wheezes - Cardiovascular Exam Cardiovascular Exam: REGULAR RHYTHM, +S1, +S2. absent: JVD - GI/Abdominal Exam GI & Abdominal Exam: Soft, Normal Bowel Sounds. absent: Tenderness - Extremities Exam Additional comments: + erythema and edema RLE, tender to touch + edema LLE - Neurological Exam Neurological Exam: Alert, Awake, Oriented x3 - Psychiatric Exam Psychiatric exam: Normal Affect, Normal Mood - Skin Skin Exam: Dry, Intact, Normal Color Assessment and Plan (1) Acute renal failure Status: Acute (2) Chronic kidney disease, stage 3 (moderate) Status: Acute (3) Deep venous thrombosis of lower extremity Status: Acute (4) Diabetic nephropathy Status: Acute (5) Nephrotic range proteinuria Status: Acute (6) HTN (hypertension) Status: Chronic - Assessment and Plan (Free Text) Plan: # HENRIQUE with underlying ckdstage 3- baseline Cr 1.5 # sepsis, gram neg bacteremia, # Acute on chronic DVT # DM , poorly controlled # htn # hyperkalemia, ARB use # hyponatremia, mild, Plan: non oliguric, Cr improving needs tighter bs controll pain management decrease iv fluids to 60 cc/hr rising BUN secondary to steroids- reduce prednisone dose check urine and serum osmolality for hyponatremia Discussed with Dr Vargas
[2016-05-28 10:53] LABS: NEUTROPHIL 78 % (50-75); REACTIVE LYMPHOCYTES 1 % (0-0); TOTAL CELLS COUNTED 100
--- NOTE | 2016-05-28 10:57 | US ---
Right upper quadrant abdominal ultrasound History: Acute kidney disease. Comparison: CT scan dated 05/27/2016 Technique: Real-time sonography was performed through the right upper quadrant of the abdomen. Findings: Liver: 17.8 centimeters length. Prominent increased echogenicity of the hepatic parenchyma suggestive for fatty infiltration. Gallbladder: Cholelithiasis. Normal wall thickness of 2.1 millimeters. Negative sonographic Rock sign. Common bile duct measures 4 millimeters, within normal limits. Visualized portions of the pancreas are preserved. Pancreatic tail not well visualized. Visualized aorta and IVC are preserved. Right kidney: 13.3 x 6.8 x 6.1 centimeters. No calculi or hydronephrosis. Impression: Enlarged liver with diffuse fatty infiltration. Cholelithiasis. Limited visualization of the pancreas.
[2016-05-28] MEDS: Piperacill/Tazo 2.25gm in Dex 50 ML IVPB SCH ×2 (10:58→18:59)
[2016-05-28] MEDS: Insulin Detemir 100 units/ml Vial (Levemir) SC SCH ×2 (10:58→21:42)
[2016-05-28] MEDS: Sodium Chloride 0.9% 1,000 ML IV SCH (11:07)
--- NOTE | 2016-05-28 12:11 | CT ---
PROCEDURE: CT Abdomen and Pelvis without intravenous contrast HISTORY: sepsis COMPARISON: None. TECHNIQUE: Axial computed tomographic images were performed through the abdomen pelvis without the use of intravenous contrast. Subsequently, sagittal and coronal reformatted images were obtained. Radiation dose: Total exam DLP = 2113 mGy-cm. FINDINGS: LOWER THORAX: Consolidative airspace opacities seen throughout the visualized lung capps. LIVER: Nodular and cirrhotic contour of the liver with diffuse decreased attenuation which may represent fatty infiltration. Punctate parenchymal calcification the right hepatic lobe superiorly. GALLBLADDER AND BILE DUCTS: Cholelithiasis and or sludge in the gallbladder. PANCREAS: Fatty atrophy of the pancreas. SPLEEN: Spleen not well visualized. Residual spleen possibly noted at the left upper quadrant measuring 2.2 centimeters on series 3, image 30. ADRENALS: Unremarkable. No mass. KIDNEYS AND URETERS: Unremarkable. No hydronephrosis. No solid mass. VASCULATURE: Unremarkable. No aortic aneurysm. BOWEL: Unremarkable. No obstruction. No gross mural thickening. APPENDIX: Not well identified. PERITONEUM: Grossly preserved. LYMPH NODES: Prominent enlarged lymph nodes in the bilateral inguinal regions measuring to 4.0 x 2.2 centimeters on the right and up to 2.2 x 1.4 centimeters on the left. Shotty para-aortic and mesenteric lymph nodes. Reticulation and edema seen within the subcutaneous soft tissues and bilateral flanks. BLADDER: Unremarkable. REPRODUCTIVE: Unremarkable. BONES: Degenerative changes in the spine. OTHER FINDINGS: None. IMPRESSION: Prominent bilateral inguinal lymphadenopathy; right greater than left. Nodular and cirrhotic contour of the liver. Fatty atrophy of the pancreas. Splenic atrophy with possible residual spleen seen within the left upper quadrant measuring 2.2 centimeters. Reticulation and edema seen the subcutaneous soft tissues and find. Cholelithiasis. Consolidative changes at both lung bases which may represent underlying infiltrate. Clinical correlation. Additional findings as above.
--- NOTE | 2016-05-28 20:55 | CP.PCM.CON ---
History of Present Illness - History of Present Illness History of Present Illness: 45 year old male with a history of obesity, HTN, DM, DVT, admitted with with RLE cellulitis and recurrent DVT. The patient reports to increased swelling in his RLE. Venous duplex revealed RLE DVT. He had a DVT diagnosed in 2016 in the RLE and was treated with 3 months of Xarelto. He was told his DVT was related to immobility during a prior hospitalization. He denies shortness of breath and chest pain. Past medical history: COPD, HTN, DM, DVT Past surgical history: Splenectomy Family history: Denies hematologic and oncologic problems Social history: Former tobacco and alcohol abuse. Allergies: NKDA Review of systems: All remaining review of systems including HEENT, cardiovascular, respiratory, gastrointestinal, genitourinary, musculoskeletal, dermatologic, neurologic, and psychiatric are negative unless mentioned in the HPI. Past Patient History - Infectious Disease Hx of Infectious Diseases: None - Past Medical History & Family History Past Medical History?: Yes - Past Social History Smoking Status: Former Smoker - CARDIAC Hx Cardiac Disorders: Yes Hx Congestive Heart Failure: Yes Hx Hypertension: Yes - PULMONARY Hx Respiratory Disorders: Yes Hx Asthma: Yes Hx Chronic Obstructive Pulmonary Disease (COPD): Yes Hx Pneumonia: Yes (2016) - NEUROLOGICAL Hx Neurological Disorder: Yes Other/Comment: c/o headache on admission, spinal tap attempted to remove spinal fluid. becuase of immobility developed DVT. at the time. right leg. - HEENT Hx HEENT Problems: No - RENAL Hx Chronic Kidney Disease: No - ENDOCRINE/METABOLIC Hx Endocrine Disorders: Yes Hx Diabetes Mellitus Type 1: Yes - HEMATOLOGICAL/ONCOLOGICAL Hx Blood Disorders: No - INTEGUMENTARY Hx Dermatological Problems: Yes Hx Cellulitis: Yes - MUSCULOSKELETAL/RHEUMATOLOGICAL Hx Musculoskeletal Disorders: No Hx Falls: No - GASTROINTESTINAL Hx Gastrointestinal Disorders: No - GENITOURINARY/GYNECOLOGICAL Hx Genitourinary Disorders: No - PSYCHIATRIC Hx Substance Use: No - SURGICAL HISTORY Hx Surgeries: Yes Hx Splenectomy: Yes (3 years ago) Hx Vascular Access Device: Yes (HX INGUINAL PERMA CATH) - ANESTHESIA Hx Anesthesia: Yes Hx Anesthesia Reactions: No Hx Malignant Hyperthermia: No Has any member of the family had a problem w/ anesthesia?: No Meds Allergies/Adverse Reactions: Allergies Allergy/AdvReac Type Severity Reaction Status Date / Time EGG Allergy Intermediate RASH Verified 05/25/16 14:29 - Medications Medications: Current Medications Albuterol/Ipratropium (Duoneb 3 Mg/0.5 Mg (3 Ml) Ud) 3 ml INH RQ6 PRN PRN Reason: Shortness of Breath Last Admin: 05/26/16 13:46 Dose: 3 ml Aspirin (Aspirin Chewable) 81 mg PO DAILY [facility] Last Admin: 05/28/16 11:00 Dose: 81 mg Docusate Sodium (Colace) 100 mg PO BID [facility] Last Admin: 05/28/16 17:31 Dose: 100 mg Famotidine (Pepcid) 20 mg PO DAILY [facility] Last Admin: 05/28/16 10:59 Dose: 20 mg Piperacillin Sod/Tazobactam Sod (Zosyn 2.25 Gm Iv Premix) 50 mls @ 100 mls/hr IVPB Q8H [facility] Last Admin: 05/28/16 18:59 Dose: 100 mls/hr Aztreonam 1 gm/ Sodium (Chloride) 100 mls @ 100 mls/hr IVPB Q12H [facility] Last Admin: 05/28/16 16:00 Dose: 100 mls/hr Metronidazole (Flagyl) 100 mls @ 100 mls/hr IVPB Q12H [facility] Last Admin: 05/28/16 14:35 Dose: 100 mls/hr Heparin Sodium/Sodium Chloride (Heparin 88975 Units/250ml 1/2 Normal Saline) 250 mls @ 9.043 mls/hr IV .Q24H PRN; Protocol PRN Reason: PROTOCOL Last Admin: 05/28/16 14:28 Dose: 12.043 mls/hr Sodium Chloride (Sodium Chloride 0.9%) 1,000 mls @ 50 mls/hr IV .Q20H [facility] Last Admin: 05/28/16 11:07 Dose: 50 mls/hr Insulin Aspart (Novolog) 12 unit SC ACTID [facility] Last Admin: 05/28/16 17:00 Dose: 12 unit Insulin Detemir (Levemir) 30 unit SC Q12 [facility] Last Admin: 05/28/16 10:58 Dose: 30 unit Insulin Human Regular (Novolin R) 0 unit SC ACHS [facility] PRN Reason: Protocol Last Admin: 05/28/16 17:00 Dose: 1 unit Montelukast Sodium (Singulair) 10 mg PO HS [facility] Last Admin: 05/27/16 21:58 Dose: 10 mg Morphine Sulfate (Morphine) 4 mg IVP Q4 PRN PRN Reason: Pain, moderate (4-7) Last Admin: 05/28/16 17:38 Dose: 4 mg Fluticasone/Salmeterol (Advair Diskus 250/50) 2 puff IH Q12 [facility] Last Admin: 05/28/16 09:16 Dose: Not Given Physical Exam - Head Exam Head Exam: ATRAUMATIC - Eye Exam Eye Exam: Normal appearance - ENT Exam ENT Exam: Mucous Membranes Dry - Respiratory Exam Respiratory Exam: NORMAL BREATHING PATTERN - Cardiovascular Exam Cardiovascular Exam: +S1, +S2 - GI/Abdominal Exam GI & Abdominal Exam: Normal Bowel Sounds - Extremities Exam Extremities exam: Positive for: pedal edema - Psychiatric Exam Psychiatric exam: Normal Affect, Normal Mood - Skin Skin Exam: Warm Results - Vital Signs Recent Vital Signs: Last Vital Signs Temp 98.3 F 05/28/16 15:00 Pulse 89 05/28/16 20:32 Resp 20 05/28/16 15:00 BP 149/85 05/28/16 15:00 Pulse Ox 96 05/28/16 15:00 - Labs Result Diagrams: 05/28/16 06:56 05/28/16 06:56 Labs: Laboratory Results - last 24 hr 05/27/16 05/28/16 05/28/16 21:27 06:32 06:56 WBC 29.5 H RBC 4.89 Hgb 14.2 Hct 43.2 MCV 88.2 MCH 29.0 MCHC 32.9 L RDW 17.2 H Plt Count 70 L MPV 11.4 Neut % (Auto) 82.3 H Lymph % (Auto) 6.2 L Ramsey % (Auto) 11.3 H Eos % (Auto) 0.1 Baso % (Auto) 0.1 Neut # 24.3 H Lymph # 1.8 Ramsey # 3.3 H Eos # 0.0 Baso # 0.0 Neutrophils % (Manual) 78 H Band Neutrophils % 1 Lymphocytes % (Manual) 6 L Reactive Lymphs % 1 H Monocytes % (Manual) 14 H Toxic Granulation Present Platelet Estimate Decreased L Polychromasia Slight Hypochromasia (manual) Slight Anisocytosis (manual) Slight APTT 118 H* D Sodium 129 L Potassium 4.8 Chloride 93 L Carbon Dioxide 24 Anion Gap 17 BUN 75 H Creatinine 2.6 H Est GFR ( Amer) 32 Est GFR (Non-Af Amer) 27 POC Glucose (mg/dL) 247 H 181 H Random Glucose 254 H Calcium 7.6 L Phosphorus 5.4 H Magnesium 2.0 Total Bilirubin 0.9 AST 22 ALT 38 Alkaline Phosphatase 127 H Total Protein 6.1 L Albumin 2.9 L Globulin 3.2 Albumin/Globulin Ratio 0.9 L 05/28/16 05/28/16 05/28/16 11:10 13:18 16:34 WBC RBC Hgb Hct MCV MCH MCHC RDW Plt Count MPV Neut % (Auto) Lymph % (Auto) Ramsey % (Auto) Eos % (Auto) Baso % (Auto) Neut # Lymph # Ramsey # Eos # Baso # Neutrophils % (Manual) Band Neutrophils % Lymphocytes % (Manual) Reactive Lymphs % Monocytes % (Manual) Toxic Granulation Platelet Estimate Polychromasia Hypochromasia (manual) Anisocytosis (manual) APTT 77 H D Sodium Potassium Chloride Carbon Dioxide Anion Gap BUN Creatinine Est GFR ( Amer) Est GFR (Non-Af Amer) POC Glucose (mg/dL) 254 H 179 H Random Glucose Calcium Phosphorus Magnesium Total Bilirubin AST ALT Alkaline Phosphatase Total Protein Albumin Globulin Albumin/Globulin Ratio 05/28/16 19:52 WBC RBC Hgb Hct MCV MCH MCHC RDW Plt Count MPV Neut % (Auto) Lymph % (Auto) Ramsey % (Auto) Eos % (Auto) Baso % (Auto) Neut # Lymph # Ramsey # Eos # Baso # Neutrophils % (Manual) Band Neutrophils % Lymphocytes % (Manual) Reactive Lymphs % Monocytes % (Manual) Toxic Granulation Platelet Estimate Polychromasia Hypochromasia (manual) Anisocytosis (manual) APTT 66 H D Sodium Potassium Chloride Carbon Dioxide Anion Gap BUN Creatinine Est GFR ( Amer) Est GFR (Non-Af Amer) POC Glucose (mg/dL) Random Glucose Calcium Phosphorus Magnesium Total Bilirubin AST ALT Alkaline Phosphatase Total Protein Albumin Globulin Albumin/Globulin Ratio Assessment & Plan (1) Deep venous thrombosis of lower extremity Assessment and Plan: recurrent will send inherited thrombophilia w/u heparin drip discontinued recommend Eliquis; okay to anticoagulate if plt>50,000 Status: Acute (2) Thrombocytopenia Assessment and Plan: heparin drip discontinued may be sepsis related will review peripheral smear okay to anticoagulate with Eliquis if plt > 50,000 Status: Acute (3) Leukocytosis Assessment and Plan: improving on antibiotics Status: Acute (4) Coagulopathy Assessment and Plan: secondary to anticoagulation Thank you for this interesting consult. Status: Acute
[2016-05-28] MEDS ORDERED: Heparin25000 units/250ml 1/2NS 250 ML IV PRN (23:39)
[2016-05-29] MEDS: metroNIDAZOLE IV 500 mg/100 ml 100 ML IVPB SCH ×2 (03:28→14:17)
[2016-05-29] MEDS: Piperacill/Tazo 2.25gm in Dex 50 ML IVPB SCH ×3 (03:30→19:22)
[2016-05-29] MEDS: Aztreonam 1 GM in Sodium Chloride 0.9% 100 ML IVPB SCH ×2 (04:21→15:36)
[2016-05-29 06:22] LABS: POTASSIUM 4.5 mmol/L (3.6-5.2)
[2016-05-29 06:24] LABS: ALB/GLOB RATIO 0.9 (1.0-2.1); BILIRUBIN,TOTAL 1.1 mg/dL (0.2-1.3); PHOSPHOROUS 4.9 mg/dL (2.5-4.5); TOTAL PROTEIN 5.9 g/dL (6.3-8.3)
[2016-05-29 06:25] LABS: CALCIUM 7.8 mg/dl (8.6-10.4); MAGNESIUM 2.2 mg/dL (1.6-2.3)
[2016-05-29 06:36] LABS: BASO # 0.1 K/uL (0.0-0.2); BASO % 0.3 % (0.0-2.0); EOS # 0.8 K/uL (0.0-0.7); EOS % 4.6 % (0.0-4.0); HEMATOCRIT 42.9 % (35.0-51.0); LYMPH # 2.5 K/uL (1.0-4.3); LYMPH % 14.8 % (20.0-40.0); MEAN CELL VOLUME 88.5 fL (80.0-94.0); MEAN CORPUSCULAR HEMOGLOBIN 29.2 pg (27.0-31.0); MEAN CORPUSCULAR HGB CONC 32.9 g/dL (33.0-37.0); MEAN PLATELET VOLUME 11.3 fL (7.2-11.7); MONO # 2.8 K/uL (0.0-0.8); MONO % 16.5 % (0.0-10.0); NRBC % 0.5 % (0.0-2.0); RED CELL DISTRIBUTION WIDTH 16.8 % (11.5-14.5); WHITE BLOOD COUNT 16.9 K/uL (4.8-10.8)
[2016-05-29] MEDS ORDERED: Fluticasone-Salmeterol 250-50mcg Diskus IH SCH (08:00)
[2016-05-29] MEDS: (Novolin R) Insulin Human Regular 100 units/ml vial SC SCH ×4 (08:18→21:35)
[2016-05-29] MEDS: (Novolog) Insulin Aspart, Recombinant 100 u/ml 10 ml vial SC SCH ×3 (08:19→17:01)
[2016-05-29] MEDS: Fluticasone-Salmeterol 250-50mcg Diskus IH SCH ×2 (08:50→19:46)
[2016-05-29] MEDS: Sodium Chloride 0.9% 1,000 ML IV SCH (09:00)
--- NOTE | 2016-05-29 09:26 | CP.PCM.PN ---
<Thelma Santiago DO - Last Filed: 05/29/16 09:19> Subjective - Date & Time of Evaluation Date of Evaluation: 05/29/16 Time of Evaluation: 09:25 - Subjective Subjective: PGY1 on Dr. Vargas's service: Patient seen and examined. Patient reports poor sleep due to pain in right leg but states swelling has improved. Patient keeping leg elevated. Patient denies difficulty breathing. Patient states last BM was last evening and denies constipation. Objective - Vital Signs/Intake and Output Vital Signs (last 24 hours): Temp Pulse Resp BP Pulse Ox 97.7 F 92 H 20 144/86 94 L 05/29/16 07:40 05/29/16 07:40 05/29/16 07:40 05/29/16 07:40 05/29/16 07:40 Intake and Output: 05/29/16 05/29/16 06:59 18:59 Intake Total Output Total Balance - Medications Medications: Current Medications Albuterol/Ipratropium (Duoneb 3 Mg/0.5 Mg (3 Ml) Ud) 3 ml INH RQ6 PRN PRN Reason: Shortness of Breath Last Admin: 05/26/16 13:46 Dose: 3 ml Apixaban (Eliquis) 10 mg PO BID [facility] Stop: 06/05/16 10:01 Aspirin (Aspirin Chewable) 81 mg PO DAILY [facility] Last Admin: 05/28/16 11:00 Dose: 81 mg Docusate Sodium (Colace) 100 mg PO BID [facility] Last Admin: 05/28/16 17:31 Dose: 100 mg Famotidine (Pepcid) 20 mg PO DAILY [facility] Last Admin: 05/28/16 10:59 Dose: 20 mg Piperacillin Sod/Tazobactam Sod (Zosyn 2.25 Gm Iv Premix) 50 mls @ 100 mls/hr IVPB Q8H [facility] Last Admin: 05/29/16 03:30 Dose: 100 mls/hr Aztreonam 1 gm/ Sodium (Chloride) 100 mls @ 100 mls/hr IVPB Q12H [facility] Last Admin: 05/29/16 04:21 Dose: 100 mls/hr Metronidazole (Flagyl) 100 mls @ 100 mls/hr IVPB Q12H [facility] Last Admin: 05/29/16 03:28 Dose: 100 mls/hr Sodium Chloride (Sodium Chloride 0.9%) 1,000 mls @ 50 mls/hr IV .Q20H [facility] Last Admin: 05/28/16 11:07 Dose: 50 mls/hr Insulin Aspart (Novolog) 12 unit SC ACTID [facility] Last Admin: 05/29/16 08:19 Dose: 12 unit Insulin Detemir (Levemir) 30 unit SC Q12 [facility] Last Admin: 05/28/16 21:42 Dose: 30 unit Insulin Human Regular (Novolin R) 0 unit SC ACHS [facility] PRN Reason: Protocol Last Admin: 05/29/16 08:18 Dose: 1 unit Montelukast Sodium (Singulair) 10 mg PO HS [facility] Last Admin: 05/28/16 21:41 Dose: 10 mg Morphine Sulfate (Morphine) 4 mg IVP Q4 PRN PRN Reason: Pain, moderate (4-7) Last Admin: 05/29/16 08:30 Dose: 4 mg Fluticasone/Salmeterol (Advair Diskus 250/50) 2 puff IH RQ12 [facility] Last Admin: 05/29/16 08:50 Dose: 2 puff - Labs Labs: 05/29/16 06:04 05/29/16 06:04 PT 13.9 SECONDS (9.7-12.2) H 05/27/16 09:38 INR 1.2 05/27/16 09:38 APTT 66 SECONDS (21-34) H 05/29/16 06:04 - Constitutional Appears: No Acute Distress - Head Exam Head Exam: ATRAUMATIC, NORMOCEPHALIC - Eye Exam Eye Exam: EOMI - ENT Exam ENT Exam: Mucous Membranes Moist - Respiratory Exam Respiratory Exam: Decreased Breath Sounds (decreased air entry) - Cardiovascular Exam Cardiovascular Exam: +S1, +S2 - GI/Abdominal Exam GI & Abdominal Exam: Soft, Normal Bowel Sounds. absent: Firm, Guarding, Tenderness - Exam Additional comments: ruiz catheter with clear urine - Extremities Exam Additional comments: right lower extremity erythematous, warm to touch and diffusely tender to palpation. swelling noted from foot to hip. patient able to move toes - Neurological Exam Neurological Exam: Alert, Awake - Psychiatric Exam Psychiatric exam: Normal Affect - Skin Skin Exam: Dry, Warm Assessment and Plan - Assessment and Plan (Free Text) Assessment: Right lower extremity swelling/pain 05/29: Hopefully at some point if creatine and renal function improve can get thrombolysis. Discontinued heparin drip; starting Eliquis 10mg PO BID for 7 days (finish on 06/04) then start 5mg PO BID on 06/05 change morphine to 4mg IV q3h for pain 05/28: Dr. Cornejo consulted- recommend starting eliquis. will send thrombophilia workup - likely secondary to known DVT vs cellulitis - Pain, erythema and swelling - afebrile, but admits to chills/night sweats - Leukocytosis with bandemia secondary to cellulitis vs steroid use Diagnostic studies - Art duplex study negative 05/25 - Repeat venous doppler 05/26 - shows known clot that extends at least to iliac vein on right Consults - Vascular surgery ([place]) - would recommend thrombolysis but will hold for elevated CR, will continue to follow - ID (Salma) - recommends continuing Zosyn and adding Azactam. Also to get echo and CT abd pelvis. 05/27- added flagyl Meds - Given Ancef and Vancomycin 05/25 in ED - Cont Zosyn, renal dose Q8H - cont Azactam 1gm Q12H - flagyl 500q12 started 05/27 - Morphine 4mg Q4h PRN for pain - Procalcitonin - 31.81 - Continue to monitor labs - Elevate leg Bacteremia 05/29: WBC decreased to 16.9. blood culture positive for serratia marcescens sensitive to cipro, primaxin, aztreonam Abd CT: bilateral inguinal lymphadenopathy, right greater than left. cirrhotic contour of liver. cholelithiasis. possible infiltrate in lungs- bases Abd US: diffuse fatty infiltration of liver. cholelithiasis 05/28: WBC decreased to 29. Urine out put is ok, non febrile, and on Zosyn, Azactam, and recently placed on IV flagyl as well. - Blood cx (05/25) - gram neg rods identification pending - ID (Salma) consulted - Cont Zosyn, renal dose Q8H - cont Azactam 1gm Q12H - 05/27- add flagyl - Afebrile Acute renal failure on Chronic Kidney disease 05/29: Currently on slow IVF, monitor renal function. Patient in previous time admissions has had a lot of renal problems and at one point needed HD. Cr today 2.4, slowly improving - Nephro (Jf) consulted - help appreciated, f/u recs - Cr 1.5 on admission - Gently IVF hydration considering hx of HF. NS at 75 cc/hr Leukosytosis 05/29: Decreased today. steroids discontinued 05/28 - secondary to cellulitis vs steroid use - Abx as above - monitor for fever - AM labs COPD/asthma - Duonebs 3ml INH q6h [facility] - Home Advair - prednisone 40mg daily - home Singulair 10mg PO HS Biventricular heart failure - 01/2016 ECHO- LV EF 60-65%, mild pulmonary HTN (see full report) - repeat echo pending - Evaluated by Dr Rodriguez on last admission for NSTEMI - home lasix - held for elevated Cr DM 05/29: improving since solumedrol has been stopped. Cont to monitor - A1C 11.0 - home regimen of Levemir and Novolog - ISS - Heart healthy/diabetic diet HTN - Continue home meds - Monitor vitals q4h and adjust as needed CAD - hx NSTEMI - Crestor 20mg PO HS Prophylactic measures - SCDs contraindicated due to DVT - started on Eliquis 10mg PO BID - ASA 81mg PO daily - Pepcid 20mg PO daily <Rick Vargas - Last Filed: 05/29/16 10:56> Objective - Vital Signs/Intake and Output Vital Signs (last 24 hours): Temp Pulse Resp BP Pulse Ox 97.7 F 92 H 20 144/86 94 L 05/29/16 07:40 05/29/16 07:40 05/29/16 07:40 05/29/16 07:40 05/29/16 07:40 Intake and Output: 05/29/16 05/29/16 06:59 18:59 Intake Total Output Total Balance - Medications Medications: Current Medications Albuterol/Ipratropium (Duoneb 3 Mg/0.5 Mg (3 Ml) Ud) 3 ml INH RQ6 PRN PRN Reason: Shortness of Breath Last Admin: 05/26/16 13:46 Dose: 3 ml Apixaban (Eliquis) 10 mg PO BID [facility] Stop: 06/05/16 10:01 Last Admin: 05/29/16 09:29 Dose: 10 mg Aspirin (Aspirin Chewable) 81 mg PO DAILY [facility] Last Admin: 05/29/16 09:32 Dose: 81 mg Docusate Sodium (Colace) 100 mg PO BID [facility] Last Admin: 05/29/16 09:29 Dose: 100 mg Famotidine (Pepcid) 20 mg PO DAILY [facility] Last Admin: 05/29/16 09:29 Dose: 20 mg Piperacillin Sod/Tazobactam Sod (Zosyn 2.25 Gm Iv Premix) 50 mls @ 100 mls/hr IVPB Q8H [facility] Last Admin: 05/29/16 03:30 Dose: 100 mls/hr Aztreonam 1 gm/ Sodium (Chloride) 100 mls @ 100 mls/hr IVPB Q12H [facility] Last Admin: 05/29/16 04:21 Dose: 100 mls/hr Metronidazole (Flagyl) 100 mls @ 100 mls/hr IVPB Q12H [facility] Last Admin: 05/29/16 03:28 Dose: 100 mls/hr Sodium Chloride (Sodium Chloride 0.9%) 1,000 mls @ 50 mls/hr IV .Q20H [facility] Last Admin: 05/28/16 11:07 Dose: 50 mls/hr Insulin Aspart (Novolog) 12 unit SC ACTID [facility] Last Admin: 05/29/16 08:19 Dose: 12 unit Insulin Detemir (Levemir) 30 unit SC Q12 [facility] Last Admin: 05/29/16 09:30 Dose: 30 unit Insulin Human Regular (Novolin R) 0 unit SC ACHS [facility] PRN Reason: Protocol Last Admin: 05/29/16 08:18 Dose: 1 unit Montelukast Sodium (Singulair) 10 mg PO HS [facility] Last Admin: 05/28/16 21:41 Dose: 10 mg Morphine Sulfate (Morphine) 4 mg IVP Q3 PRN PRN Reason: Pain, moderate (4-7) Fluticasone/Salmeterol (Advair Diskus 250/50) 2 puff IH RQ12 [facility] Last Admin: 05/29/16 08:50 Dose: 2 puff - Labs Labs: 05/29/16 06:04 05/29/16 06:04 PT 13.9 SECONDS (9.7-12.2) H 05/27/16 09:38 INR 1.2 05/27/16 09:38 APTT 66 SECONDS (21-34) H 05/29/16 06:04 Attending/Attestation - Attestation I have personally seen and examined this patient.: Yes I have fully participated in the care of the patient.: Yes I have reviewed all pertinent clinical information, including history, physical exam and plan: Yes Notes (Text): Medical Attending: Patient was seen and examined by me. Agree with the above note. The lower extremity is still swollen, tender, and warm. Per advice of Hematology will stop the heparin and change to PO Eliquis. The creatine was decreasing today as well. Hopefully at some point when renal function improves can get thrombolysis. thank you, Rick Vargas
[2016-05-29] MEDS: Insulin Detemir 100 units/ml Vial (Levemir) SC SCH ×2 (09:30→21:51)
--- NOTE | 2016-05-29 19:34 | CP.PCM.PN ---
Subjective - Date & Time of Evaluation Date of Evaluation: 05/29/16 Time of Evaluation: 05:00 - Subjective Subjective: dictated Objective - Vital Signs/Intake and Output Vital Signs (last 24 hours): Temp Pulse Resp BP Pulse Ox 98.5 F 92 H 20 194/81 H 95 05/29/16 15:10 05/29/16 16:00 05/29/16 15:10 05/29/16 15:10 05/29/16 15:10 Intake and Output: 05/29/16 05/30/16 18:59 06:59 Intake Total 900 Output Total 1800 1300 Balance -900 -1300 - Medications Medications: Current Medications Albuterol/Ipratropium (Duoneb 3 Mg/0.5 Mg (3 Ml) Ud) 3 ml INH RQ6 PRN PRN Reason: Shortness of Breath Last Admin: 05/26/16 13:46 Dose: 3 ml Apixaban (Eliquis) 10 mg PO BID [facility] Stop: 06/05/16 10:01 Last Admin: 05/29/16 17:52 Dose: 10 mg Aspirin (Aspirin Chewable) 81 mg PO DAILY [facility] Last Admin: 05/29/16 09:32 Dose: 81 mg Docusate Sodium (Colace) 100 mg PO BID [facility] Last Admin: 05/29/16 17:52 Dose: 100 mg Famotidine (Pepcid) 20 mg PO DAILY [facility] Last Admin: 05/29/16 09:29 Dose: 20 mg Piperacillin Sod/Tazobactam Sod (Zosyn 2.25 Gm Iv Premix) 50 mls @ 100 mls/hr IVPB Q8H [facility] Last Admin: 05/29/16 19:22 Dose: 100 mls/hr Aztreonam 1 gm/ Sodium (Chloride) 100 mls @ 100 mls/hr IVPB Q12H [facility] Last Admin: 05/29/16 15:36 Dose: 100 mls/hr Sodium Chloride (Sodium Chloride 0.9%) 1,000 mls @ 50 mls/hr IV .Q20H [facility] Last Admin: 05/29/16 09:00 Dose: 50 mls/hr Insulin Aspart (Novolog) 12 unit SC ACTID [facility] Last Admin: 05/29/16 17:01 Dose: 12 unit Insulin Detemir (Levemir) 30 unit SC Q12 [facility] Last Admin: 05/29/16 09:30 Dose: 30 unit Insulin Human Regular (Novolin R) 0 unit SC ACHS [facility] PRN Reason: Protocol Last Admin: 05/29/16 17:01 Dose: 2 unit Montelukast Sodium (Singulair) 10 mg PO HS [facility] Last Admin: 05/28/16 21:41 Dose: 10 mg Morphine Sulfate (Morphine) 4 mg IVP Q3 PRN PRN Reason: Pain, moderate (4-7) Last Admin: 05/29/16 17:02 Dose: 4 mg Fluticasone/Salmeterol (Advair Diskus 250/50) 2 puff IH RQ12 [facility] Last Admin: 05/29/16 08:50 Dose: 2 puff - Labs Labs: 05/29/16 06:04 05/29/16 06:04 PT 13.9 SECONDS (9.7-12.2) H 05/27/16 09:38 INR 1.2 05/27/16 09:38 APTT 65 SECONDS (21-34) H 05/29/16 10:50
[2016-05-29] MEDS: Cefepime IV 1 gm in Dextrose 50 ML IVPB SCH (20:38)
--- NOTE | 2016-05-29 20:49 | PN ---
DATE: 05/29/2016 SUBJECTIVE: The patient still remains with the right leg swollen. His platelets are dropping; hence , they have changed the heparin to a different anticoagulant. The patient is denying any chest pain, no shortness of breath, no cough. He is otherwise feeling better. OBJECTIVE: VITAL SIGNS: Temperature is 98.5, pulse 92, blood pressure 194/81, respirations are 20. HEENT: Head is atraumatic. NECK: Supple. LUNGS: Clear. Decreased breath sounds bilaterally. He is morbidly obese. HEART: S1, S2 . ABDOMEN: Soft. EXTREMITIES: Right leg remains with edema and due to scratching appears with some redness and warmth . The left leg is unremarkable. LABORATORY DATA: White count is 16.9, hemoglobin 14.1, hematocrit 42.9, platelet count is 67. Blood cultures and urine cultures are all negative. He had a CAT scan done. The CAT scan shows prominent bilateral inguinal lymphadenopathy, right greater than left, nodular and cirrhotic contour of the li mónica, fatty atrophy of the pancreas, spleen atrophy with possible residual spleen seen within the left upper quadrant. He is status post splenectomy, and edema seen in the subcutaneous soft tissue and cholelithiasis consolidative changes at both lung bases, which may represent underlying infiltra te. Labs show platelets have decreased to 67. White count has come down to 16.9, hemoglobin remains stab le and bands have decreased. Blood culture x 2 were negative. He is responding for the sepsis; ritter mónica, platelets are decreasing. It could be related to heparin, which was on until 05/28. The right l eg appears to be still with a lot of swelling and redness from right thigh onwards. BUN is 97, creat inine is 2.7. Sodium 135, potassium is 4.. I am going to add a dose of Maxipime and continue the Azactam at this time and will follow. His crea tinine is getting better and I wait to see the swelling go down on the right leg as it will be taking a long time; it extends all along the right thigh and he has had it before, DVTs, so he may need to check with hematology/oncologist and maybe he will need medications lifelong. At this time, I will c ontinue cefepime and Azactam and will follow. Joshua Marsh MD cc: [id number] TT: 05/29/2016 20:49:26 Confirmation # [id number] Dictation # [id number]
--- NOTE | 2016-05-30 01:31 | CP.PCM.PN ---
Subjective - Date & Time of Evaluation Date of Evaluation: 05/29/16 Time of Evaluation: 18:00 - Subjective Subjective: Feeling better Objective - Vital Signs/Intake and Output Vital Signs (last 24 hours): Temp Pulse Resp BP Pulse Ox 98.5 F 92 H 20 194/81 H 95 05/29/16 15:10 05/29/16 16:00 05/29/16 15:10 05/29/16 15:10 05/29/16 15:10 Intake and Output: 05/29/16 05/30/16 18:59 06:59 Intake Total 900 Output Total 1800 2300 Balance -900 -2300 - Medications Medications: Current Medications Albuterol/Ipratropium (Duoneb 3 Mg/0.5 Mg (3 Ml) Ud) 3 ml INH RQ6 PRN PRN Reason: Shortness of Breath Last Admin: 05/26/16 13:46 Dose: 3 ml Apixaban (Eliquis) 10 mg PO BID [facility] Stop: 06/05/16 10:01 Last Admin: 05/29/16 17:52 Dose: 10 mg Aspirin (Aspirin Chewable) 81 mg PO DAILY [facility] Last Admin: 05/29/16 09:32 Dose: 81 mg Docusate Sodium (Colace) 100 mg PO BID [facility] Last Admin: 05/29/16 17:52 Dose: 100 mg Famotidine (Pepcid) 20 mg PO DAILY [facility] Last Admin: 05/29/16 09:29 Dose: 20 mg Aztreonam 1 gm/ Sodium (Chloride) 100 mls @ 100 mls/hr IVPB Q12H [facility] Last Admin: 05/29/16 15:36 Dose: 100 mls/hr Sodium Chloride (Sodium Chloride 0.9%) 1,000 mls @ 50 mls/hr IV .Q20H [facility] Last Admin: 05/29/16 09:00 Dose: 50 mls/hr Cefepime HCl (Maxipime Iv 1 Gm Premix) 50 mls @ 100 mls/hr IVPB Q24H [facility] Last Admin: 05/29/16 20:38 Dose: 100 mls/hr Insulin Aspart (Novolog) 12 unit SC ACTID [facility] Last Admin: 05/29/16 17:01 Dose: 12 unit Insulin Detemir (Levemir) 30 unit SC Q12 [facility] Last Admin: 05/29/16 21:51 Dose: 30 unit Insulin Human Regular (Novolin R) 0 unit SC ACHS [facility] PRN Reason: Protocol Last Admin: 05/29/16 21:35 Dose: Not Given Montelukast Sodium (Singulair) 10 mg PO HS [facility] Last Admin: 05/29/16 21:51 Dose: 10 mg Morphine Sulfate (Morphine) 4 mg IVP Q3 PRN PRN Reason: Pain, moderate (4-7) Last Admin: 05/30/16 00:08 Dose: 4 mg Fluticasone/Salmeterol (Advair Diskus 250/50) 2 puff IH RQ12 [facility] Last Admin: 05/29/16 19:46 Dose: 2 puff - Labs Labs: 05/29/16 06:04 05/29/16 06:04 PT 13.9 SECONDS (9.7-12.2) H 05/27/16 09:38 INR 1.2 05/27/16 09:38 APTT 65 SECONDS (21-34) H 05/29/16 10:50 - Head Exam Head Exam: ATRAUMATIC - Eye Exam Eye Exam: Normal appearance - ENT Exam ENT Exam: Mucous Membranes Dry - Respiratory Exam Respiratory Exam: Clear to Ausculation Bilateral - Cardiovascular Exam Cardiovascular Exam: +S1, +S2 - GI/Abdominal Exam GI & Abdominal Exam: Normal Bowel Sounds - Extremities Exam Extremities Exam: Pedal Edema Assessment and Plan (1) Deep venous thrombosis of lower extremity 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 related to infection Status: Acute (3) Leukocytosis Assessment & Plan: improved with antibiotics Status: Acute (4) Coagulopathy Assessment & Plan: anticoagulation Status: Acute
[2016-05-30] MEDS: Sodium Chloride 0.9% 1,000 ML IV SCH ×3 (01:58→22:00)
[2016-05-30] MEDS: Aztreonam 1 GM in Sodium Chloride 0.9% 100 ML IVPB SCH ×2 (03:32→16:52)
[2016-05-30 07:15] LABS: POTASSIUM 4.6 mmol/L (3.6-5.2)
[2016-05-30 07:17] LABS: BILIRUBIN,TOTAL 1.5 mg/dL (0.2-1.3)
[2016-05-30 07:18] LABS: ALB/GLOB RATIO 0.8 (1.0-2.1); CALCIUM 8.3 mg/dl (8.6-10.4); PHOSPHOROUS 3.9 mg/dL (2.5-4.5); TOTAL PROTEIN 5.9 g/dL (6.3-8.3)
[2016-05-30 07:19] LABS: MAGNESIUM 2.2 mg/dL (1.6-2.3)
[2016-05-30] MEDS: (Novolin R) Insulin Human Regular 100 units/ml vial SC SCH ×5 (07:48→22:29)
[2016-05-30 07:54] LABS: BASO # 0.1 K/uL (0.0-0.2); BASO % 0.4 % (0.0-2.0); EOS # 0.9 K/uL (0.0-0.7); EOS % 5.3 % (0.0-4.0); HEMATOCRIT 43.4 % (35.0-51.0); LYMPH # 1.7 K/uL (1.0-4.3); LYMPH % 10.2 % (20.0-40.0); MEAN CELL VOLUME 88.8 fL (80.0-94.0); MEAN CORPUSCULAR HEMOGLOBIN 29.2 pg (27.0-31.0); MEAN CORPUSCULAR HGB CONC 32.9 g/dL (33.0-37.0); MEAN PLATELET VOLUME 10.3 fL (7.2-11.7); MONO # 2.5 K/uL (0.0-0.8); MONO % 14.8 % (0.0-10.0); NRBC % 0.4 % (0.0-2.0); RED CELL DISTRIBUTION WIDTH 16.4 % (11.5-14.5)
--- NOTE | 2016-05-30 08:15 | CON ---
DATE: 05/27/2016 He is a 45-year-old male who was admitted here on 05/25/2016. I am asked to see him because of incre asing white count. He was already started on Zosyn, and I had added Azactam yesterday, as blood cult ures came out gram-negative bacilli. He was here not too long ago. I see he has an admission from 0 05/11 to 05/15 which was for DVT right leg, COPD exacerbation, asthma, coronary artery disease and hyp ertension. So, he suffers from COPD, diabetes, and also DVT of right leg from prior admission, and lynne drake comes with a severely high white count and now has gram-negative septicemia and is on antibiotics at this time. This is his second closed admission. He said he was here also in 01/2016 when he had a non-STEMI, and COPD, asthma, diabetes, hypertension, DVT. He says he was taking the medicine Xarel to, but it seems that he has an extensive right leg cellulitis extending up to the right thigh, and argelia saavedra is almost fully blown up and extensively distended and has some warmth to it. He says that a day before, he started to have some swelling in the right leg, but it became worse and nothing would reli og his pain, and his right leg just swelled up a lot and he decided to come to the hospital. PAST MEDICAL HISTORY: Significant for COPD, asthma, diabetes, hypertension, DVT, and non-STEMI. He also has gallstones, liver cirrhosis, and he developed renal failure after a cath procedure. Hence, he is kind of scared to get even a CAT scan. I told him it will be just oral contrast and should not get him in any problem. He denies any other symptoms, except his right leg is bothering him, and wi th too much pain. SURGICAL HISTORY: Significant, however, for splenectomy. He says once he was carrying too much bags for his mother in 2009 and he fell, and then he probably ruptured the spleen. So, he is status post splenectomy, which makes him disposed to aggressive infection. FAMILY HISTORY: His mother has diabetes. SOCIAL HISTORY: He is a previous smoker for 20 years; quit 5 years ago. Denies any drug abuse. Den ies ETOH. He is unemployed, and he is morbidly obese. His weight is 295, and BMI is 46.2, with body surface area of 2.52. HE IS ALLERGIC TO EGGS, HE SAYS. MEDICATIONS: At the present time, he is on DuoNeb, aspirin. He is getting Azactam 1 g q. 12. He is on Colace, Pepcid. He was just started on heparin, as they found out that there is extension of the clotting. He is on NovoLog, , NovoLog-R, Singulair, and morphine. On review of systems, he denied any fever or chills, no weakness. He does feel dizzy when he sits up now. Denies any ear, nose, throat problems. Denies any trouble swallowing. He denied chest pain a nd palpitations. He does have some shortness of breath, has no wheezing. He is on treatment. He sa ys he has nebulizers at home, but no oxygen. He is denying any abdominal pain, no nausea, no vomitin g. Does not have diarrhea. He says he is going in small amounts. Denies any numbness or tingling. Has a right leg and right thigh swollen up to the groin. PAST MEDICAL HISTORY: Negative for infectious disease, but he has had exacerbation of COPD and asthm a, and I think he must have had antibiotics in the last admission. as above. SMOKING HISTORY: Former smoker. CARDIAC HISTORY: Heart failure and hypertension. PULMONARY: Chronic obstructive lung disease, asthma, and pneumonia. NEUROLOGICALLY: He complained of headaches , and he has kidney disease now after the procedures last time on his , and he has diabetes. No hematological problems he reported, but he has had extensive right lower extremity DVT. Denies any fall. Denies any GI problems. Denies any problems. No dysuria. Denies any psych pro blems. He has had 3 surgeries, including inguinal, history of vascular access device, inguinal PermCath, fis tulectomy he said 2009. HE IS ALLERGIC TO EGGS WHICH CAUSE HIM A RASH. Then, on examination I find he is afebrile. Temperature is 99 right now, pulse is 89, blood pressure is 122/75, respirations are 20. He is alert, awake, morbidly obese. Able to communicate. HEAD: Atraumatic, normocephalic. Pupils are reacting to light. Eye movements are unremarkable. To ngue is moist. NECK: Supple, short but supple. LUNGS: Clear. No crackles or rales heard. Decreased breath sounds bilaterally. HEART: S1, S2 is regular. ABDOMEN: Soft, nontender, flabby. No guarding, no rigidity present. EXTREMITIES: Have right leg and right thigh extensive swelling, redness, and erythema, and also exte nsively swollen from right groin down to the foot. Left leg is unremarkable. Color is with redness on the right leg, but no necrosis. SKIN: Warm to touch. Labs are noted. He came in with a white count of 36.6, which has gone up. He was probably dry at th at time, as hemoglobin was 16. So neurologically, I do not see any problems there at this time. Labs are noted. Labs show white count. He came with 36; it jumped up to 47.4, 44.5, with 43.3 today , and hemoglobin is 14.4, hematocrit 44.2, platelet count is 85 . Chemistry: We called the lab and it is not ready, the culture report, but the blood cultures have gram-negative rods. Urine cult ure is negative. Chemistry shows his creatinine is 2.9 right now, sodium 128, potassium 5.4, chlorid e is 92, CO2 is 26, anion gap is 17, BUN is 66, creatinine is 2.9. Procalcitonin level was 31.81. O bviously, he has septicemia at this time. CHEST X-RAY AND OTHER REPORTS: Chest x-ray was done today, which shows no active disease. Bladder u ltrasound was negative for any hydronephrosis. He is still waiting to get a CAT scan done. No signi ficant findings related. His free void was 186, no postvoidal residue. He does have a history of ga llstones, so we need to see the liver enzymes. I am going to repeat all the things with complete metabolic profile tomorrow; also to repeat the bloo d cultures in the morning, get an echocardiogram, get the CAT scan of abdomen and pelvis. He is on h eparin, and to be followed up surgery. The white count may be a leukemoid reaction to all that is toa ppening. His leg is extensively swollen. Should rule out any compartment syndrome also, and will fo llow. Joshua Marsh MD cc: [id number] TT: 05/27/2016 16:01:12 Confirmation # [id number] Dictation # [id number]
[2016-05-30] MEDS: (Novolog) Insulin Aspart, Recombinant 100 u/ml 10 ml vial SC SCH ×3 (08:23→16:52)
--- NOTE | 2016-05-30 08:33 | CARD ---
APPROVED REPORT EXAM: Two-dimensional and M-mode echocardiogram with Doppler and color Doppler. Other Information Quality : GoodRhythm : NSR INDICATION Dizziness and Vertigo Dyspnea COPD RISK FACTORS Diabetes M-Mode DIMENSIONS RVDd2.69 (2.1-3.2cm)Left Atrium (MM)3.83 (2.5-4.0cm) IVSd1.60 (0.7-1.1cm)Aortic Root2.81 (2.2-3.7cm) LVDd4.61 (4.0-5.6cm)Aortic Cusp Exc.1.60 (1.5-2.0cm) PWd1.60 (0.7-1.1cm)FS (%) 27 % LVDs3.36 (2.0-3.8cm)LVEF (%)53 (>50%) Aortic Valve AoV Peak Qqddyqik771.6cm/Lorene Peak GR.7mmHg Mitral Valve MV E Xizwzzyv45.2cm/sMV A Mknybivg69.3cm/sE/A ratio1.3 TDI E/Lateral E'0.0E/Medial E'0.0 Tricuspid Valve TR Peak [id number]/sTR Peak Gr.[id number] LEFT VENTRICLE The left ventricle is normal size. There is normal left ventricular wall thickness. The left ventricular function is normal. The left ventricular ejection fraction is within the normal range. ef is 55-60% Abnormal septal motion likely due to BBB The left ventricular diastolic function is normal. No left ventricle thrombus noted on this study. There is no ventricular septal defect visualized. There is no left ventricular aneurysm. There is no mass noted in the left ventricle. RIGHT VENTRICLE The right ventricle is normal size. There is normal right ventricular wall thickness. The right ventricular systolic function is normal. ATRIA The left atrium size is normal. The right atrium size is normal. The interatrial septum is intact with no evidence for an atrial septal defect. AORTIC VALVE The aortic valve is normal in structure and function. No aortic regurgitation is present. There is no aortic valvular stenosis. There is no aortic valvular vegetation. MITRAL VALVE The mitral valve is normal in structure and function. There is no evidence of mitral valve prolapse. There is no mitral valve stenosis. There is no mitral valve regurgitation noted. TRICUSPID VALVE The tricuspid valve is normal in structure There is trace to mild tricuspid regurgitation. PAP is 35-45 mmhg There is no tricuspid valve prolapse or vegetation. There is no tricuspid valve stenosis. PULMONIC VALVE The pulmonary valve is normal in structure and function. There is no pulmonic valvular regurgitation. There is no pulmonic valvular stenosis. GREAT VESSELS The aortic root is normal in size. The ascending aorta is normal in size. The pulmonary artery is normal. The IVC is normal in size and collapses >50% with inspiration. PERICARDIAL EFFUSION The pericardium appears normal. There is no pleural effusion. <Conclusion> TDS ef is 55-60% The left ventricular ejection fraction is within the normal range. The left ventricular diastolic function is normal. There is trace to mild tricuspid regurgitation. PAP is 35-45 mmhg AT LEAST MILD PHTN
[2016-05-30] MEDS: Albuterol-Ipratrop 3 mg / 0.5 (3 ml) UD INH PRN (08:48)
[2016-05-30] MEDS: Fluticasone-Salmeterol 250-50mcg Diskus IH SCH ×2 (08:48→19:18)
[2016-05-30] MEDS: Insulin Detemir 100 units/ml Vial (Levemir) SC SCH ×2 (09:31→22:29)
--- NOTE | 2016-05-30 10:47 | CP.PCM.PN ---
Subjective - Date & Time of Evaluation Date of Evaluation: 05/30/16 Time of Evaluation: 10:42 - Subjective Subjective: Still c/o LE pain and edema. Remains tender to touch Renal function improved. Excellent UO now. Agree with eliquis use- might increase patient compliance Mild dyspnea; no CPs, n, v, dysuria, chills, headaches. On treatment for bacteremia Objective - Vital Signs/Intake and Output Vital Signs (last 24 hours): Temp Pulse Resp BP Pulse Ox 98.2 F 94 H 20 142/85 96 05/30/16 08:20 05/30/16 08:20 05/30/16 08:20 05/30/16 08:20 05/30/16 08:20 Intake and Output: 05/30/16 05/30/16 06:59 18:59 Output Total 4400 Balance -4400 - Medications Medications: Current Medications Albuterol/Ipratropium (Duoneb 3 Mg/0.5 Mg (3 Ml) Ud) 3 ml INH RQ6 PRN PRN Reason: Shortness of Breath Last Admin: 05/30/16 08:48 Dose: 3 ml Apixaban (Eliquis) 10 mg PO BID [facility] Stop: 06/05/16 10:01 Last Admin: 05/30/16 09:31 Dose: 10 mg Aspirin (Aspirin Chewable) 81 mg PO DAILY [facility] Last Admin: 05/30/16 09:31 Dose: 81 mg Docusate Sodium (Colace) 100 mg PO BID [facility] Last Admin: 05/30/16 09:31 Dose: 100 mg Famotidine (Pepcid) 20 mg PO DAILY [facility] Last Admin: 05/30/16 09:31 Dose: 20 mg Aztreonam 1 gm/ Sodium (Chloride) 100 mls @ 100 mls/hr IVPB Q12H [facility] Last Admin: 05/30/16 03:32 Dose: 100 mls/hr Sodium Chloride (Sodium Chloride 0.9%) 1,000 mls @ 50 mls/hr IV .Q20H [facility] Last Admin: 05/30/16 01:58 Dose: Not Given Cefepime HCl (Maxipime Iv 1 Gm Premix) 50 mls @ 100 mls/hr IVPB Q24H [facility] Last Admin: 05/29/16 20:38 Dose: 100 mls/hr Insulin Aspart (Novolog) 12 unit SC ACTID [facility] Last Admin: 05/30/16 08:23 Dose: 12 unit Insulin Detemir (Levemir) 30 unit SC Q12 [facility] Last Admin: 05/30/16 09:31 Dose: 30 unit Insulin Human Regular (Novolin R) 0 unit SC ACHS [facility] PRN Reason: Protocol Last Admin: 05/30/16 08:18 Dose: Not Given Montelukast Sodium (Singulair) 10 mg PO HS [facility] Last Admin: 05/29/16 21:51 Dose: 10 mg Morphine Sulfate (Morphine) 4 mg IVP Q3 PRN PRN Reason: Pain, moderate (4-7) Last Admin: 05/30/16 09:35 Dose: 4 mg Fluticasone/Salmeterol (Advair Diskus 250/50) 2 puff IH RQ12 [facility] Last Admin: 05/30/16 08:48 Dose: 1 puff - Labs Labs: 05/30/16 06:53 05/30/16 06:53 PT 13.9 SECONDS (9.7-12.2) H 05/27/16 09:38 INR 1.2 05/27/16 09:38 APTT 65 SECONDS (21-34) H 05/29/16 10:50 - Constitutional Appears: Older Than Stated Age, Chronically Ill - Head Exam Head Exam: ATRAUMATIC, NORMAL INSPECTION - Eye Exam Eye Exam: EOMI, Normal appearance - Neck Exam Neck Exam: Normal Inspection, Tenderness - Respiratory Exam Respiratory Exam: Decreased Breath Sounds, NORMAL BREATHING PATTERN - Cardiovascular Exam Cardiovascular Exam: REGULAR RHYTHM, +S1, +S2 - GI/Abdominal Exam GI & Abdominal Exam: Soft, Tenderness - Extremities Exam Extremities Exam: Pedal Edema, Tenderness - Neurological Exam Neurological Exam: Alert, CN II-XII Intact - Skin Skin Exam: Dry, Warm Assessment and Plan (1) Acute renal failure Status: Acute (2) Cellulitis Status: Acute (3) Chronic kidney disease, stage 3 (moderate) Status: Acute (4) Deep venous thrombosis of lower extremity Status: Acute (5) Proteinuria due to type 2 diabetes mellitus Status: Acute (6) Type 2 diabetes mellitus with diabetic nephropathy Status: Acute - Assessment and Plan (Free Text) Plan: Follow up chemistries Recheck protein excretion rate
--- NOTE | 2016-05-30 15:13 | CP.PCM.PN ---
<LosKimmy - Last Filed: 05/30/16 15:10> Subjective - Date & Time of Evaluation Date of Evaluation: 05/30/16 Time of Evaluation: 07:10 - Subjective Subjective: PGY1 on Dr. Vargas's service: Patient seen and examined. Patient reports pain still in his leg. He has no acute complaints. He denied chest pain, denied palpitation, denied abdominal pain, denied bathroom problems. Denied headache, denied fever, denied chills, denied headache. He denied shortness of breath. Objective - Vital Signs/Intake and Output Vital Signs (last 24 hours): Temp Pulse Resp BP Pulse Ox 98.2 F 94 H 20 142/85 96 05/30/16 08:20 05/30/16 08:20 05/30/16 08:20 05/30/16 08:20 05/30/16 08:20 Intake and Output: 05/30/16 05/30/16 06:59 18:59 Output Total 4400 1000 Balance -4400 -1000 - Medications Medications: Current Medications Albuterol/Ipratropium (Duoneb 3 Mg/0.5 Mg (3 Ml) Ud) 3 ml INH RQ6 PRN PRN Reason: Shortness of Breath Last Admin: 05/30/16 08:48 Dose: 3 ml Apixaban (Eliquis) 10 mg PO BID [facility] Stop: 06/05/16 10:01 Last Admin: 05/30/16 09:31 Dose: 10 mg Aspirin (Aspirin Chewable) 81 mg PO DAILY [facility] Last Admin: 05/30/16 09:31 Dose: 81 mg Docusate Sodium (Colace) 100 mg PO BID [facility] Last Admin: 05/30/16 09:31 Dose: 100 mg Famotidine (Pepcid) 20 mg PO DAILY [facility] Last Admin: 05/30/16 09:31 Dose: 20 mg Aztreonam 1 gm/ Sodium (Chloride) 100 mls @ 100 mls/hr IVPB Q12H [facility] Last Admin: 05/30/16 03:32 Dose: 100 mls/hr Sodium Chloride (Sodium Chloride 0.9%) 1,000 mls @ 50 mls/hr IV .Q20H [facility] Last Admin: 05/30/16 14:17 Dose: 50 mls/hr Cefepime HCl (Maxipime Iv 1 Gm Premix) 50 mls @ 100 mls/hr IVPB Q24H [facility] Last Admin: 05/29/16 20:38 Dose: 100 mls/hr Insulin Aspart (Novolog) 12 unit SC ACTID [facility] Last Admin: 05/30/16 12:28 Dose: 12 unit Insulin Detemir (Levemir) 30 unit SC Q12 [facility] Last Admin: 05/30/16 09:31 Dose: 30 unit Insulin Human Regular (Novolin R) 0 unit SC ACHS [facility] PRN Reason: Protocol Last Admin: 05/30/16 12:21 Dose: Not Given Montelukast Sodium (Singulair) 10 mg PO HS [facility] Last Admin: 05/29/16 21:51 Dose: 10 mg Morphine Sulfate (Morphine) 4 mg IVP Q3 PRN PRN Reason: Pain, moderate (4-7) Last Admin: 05/30/16 14:11 Dose: 4 mg Fluticasone/Salmeterol (Advair Diskus 250/50) 2 puff IH RQ12 [facility] Last Admin: 05/30/16 08:48 Dose: 1 puff - Labs Labs: 05/30/16 06:53 05/30/16 06:53 PT 13.9 SECONDS (9.7-12.2) H 05/27/16 09:38 INR 1.2 05/27/16 09:38 APTT 65 SECONDS (21-34) H 05/29/16 10:50 - Constitutional Appears: Non-toxic, No Acute Distress - Head Exam Head Exam: NORMAL INSPECTION - Eye Exam Eye Exam: EOMI - ENT Exam ENT Exam: Mucous Membranes Moist - Respiratory Exam Respiratory Exam: Clear to Ausculation Bilateral, NORMAL BREATHING PATTERN. absent: Accessory Muscle Use, Wheezes, Respiratory Distress - Cardiovascular Exam Cardiovascular Exam: REGULAR RHYTHM, +S1, +S2 - GI/Abdominal Exam GI & Abdominal Exam: Soft, Normal Bowel Sounds. absent: Distended, Firm, Guarding, Tenderness - Extremities Exam Additional comments: right lower extremity erythematous, warm to touch and diffusely tender to palpation. swelling noted from foot to hip. patient able to move toes - Back Exam Back Exam: NORMAL INSPECTION. absent: CVA tenderness (L), CVA tenderness (R), paraspinal tenderness - Neurological Exam Neurological Exam: Awake, CN II-XII Intact, Oriented x3 Neuro motor strength exam: Left Upper Extremity: 5, Right Upper Extremity: 5, Left Lower Extremity: 5, Right Lower Extremity: 5 - Psychiatric Exam Psychiatric exam: Normal Affect, Normal Mood - Skin Skin Exam: Dry, Normal Color Assessment and Plan - Assessment and Plan (Free Text) Assessment: Right lower extremity swelling/pain Hopefully at some point if creatine and renal function improve can get thrombolysis. Discontinued heparin drip; starting Eliquis 10mg PO BID for 7 days (finish on 06/04) then start 5mg PO BID on 06/05 change morphine to 4mg IV q3h for pain 05/28: Dr. Cornejo consulted- recommend starting eliquis. will send thrombophilia workup - likely secondary to known DVT vs cellulitis - Pain, erythema and swelling - afebrile, but admits to chills/night sweats - Leukocytosis with bandemia secondary to cellulitis vs steroid use Diagnostic studies - Art duplex study negative 05/25 - Repeat venous doppler 05/26 - shows known clot that extends at least to iliac vein on right Consults - Vascular surgery (Solen) - would recommend thrombolysis but will hold for elevated CR, will continue to follow - ID (Salma) - recommends continuing Zosyn and adding Azactam. Also to get echo and CT abd pelvis. 05/27- added flagyl - Procalcitonin - 31.81 - Continue to monitor labs - Elevate leg Bacteremia Aztreonam 1gm IVPB Q12 (started 05/26) Cefepime 1gm IVPB daily (started 05/26) WBC decreased to 17 blood culture positive for serratia marcescens sensitive to cipro, primaxin, aztreonam Abd CT: bilateral inguinal lymphadenopathy, right greater than left. cirrhotic contour of liver. cholelithiasis. possible infiltrate in lungs- bases Abd US: diffuse fatty infiltration of liver. cholelithiasis 05/28: WBC decreased to 29. Urine out put is ok, non febrile, and on Zosyn, Azactam, and recently placed on IV flagyl as well. - Blood cx (05/25) - gram neg rods identification pending - ID (Salma) consulted - Afebrile Acute renal failure on Chronic Kidney disease - Currently on slow IVF, monitor renal function. Patient in previous time admissions has had a lot of renal problems and at one point needed HD. Cr today 2.0, slowly improving - Nephro (Jf) consulted - help appreciated, f/u recs - Cr 1.5 on admission - Gently IVF hydration considering hx of HF. NS at 75 cc/hr Leukocytosis - WBC = 17 stable but has greatly improved from admission - secondary to cellulitis vs steroid use - Abx as above - monitor for fever - AM labs COPD/asthma - Duonebs 3ml INH q6h [facility] - Home Advair - prednisone 40mg daily - discontinued - home Singulair 10mg PO HS Biventricular heart failure - 01/2016 ECHO- LV EF 60-65%, mild pulmonary HTN (see full report) - repeat echo pending - Evaluated by Dr Rodriguez on last admission for NSTEMI - home lasix - held for elevated Cr DM - steroid treatment completed - A1C 11.0 - Levemir U 30 SC Q12 - Novolog 12 U ACTID - ISS HTN - Continue home meds - Monitor vitals q4h and adjust as needed CAD - hx NSTEMI - Crestor 20mg PO HS Prophylactic measures - SCDs contraindicated due to DVT - Eliquis 10mg PO BID - Pepcid 20mg PO daily - NS at 50 cc/hour - Heart healthy/diabetic diet - PT/OT <Rick Vargas H - Last Filed: 05/30/16 15:33> Objective - Vital Signs/Intake and Output Vital Signs (last 24 hours): Temp Pulse Resp BP Pulse Ox 98.2 F 94 H 20 142/85 96 05/30/16 08:20 05/30/16 08:20 05/30/16 08:20 05/30/16 08:20 05/30/16 08:20 Intake and Output: 05/30/16 05/30/16 06:59 18:59 Output Total 4400 1550 Balance -4400 -1550 - Medications Medications: Current Medications Albuterol/Ipratropium (Duoneb 3 Mg/0.5 Mg (3 Ml) Ud) 3 ml INH RQ6 PRN PRN Reason: Shortness of Breath Last Admin: 05/30/16 08:48 Dose: 3 ml Apixaban (Eliquis) 10 mg PO BID [facility] Stop: 06/05/16 10:01 Last Admin: 05/30/16 09:31 Dose: 10 mg Aspirin (Aspirin Chewable) 81 mg PO DAILY [facility] Last Admin: 05/30/16 09:31 Dose: 81 mg Docusate Sodium (Colace) 100 mg PO BID [facility] Last Admin: 05/30/16 09:31 Dose: 100 mg Famotidine (Pepcid) 20 mg PO DAILY [facility] Last Admin: 05/30/16 09:31 Dose: 20 mg Aztreonam 1 gm/ Sodium (Chloride) 100 mls @ 100 mls/hr IVPB Q12H [facility] Last Admin: 05/30/16 03:32 Dose: 100 mls/hr Sodium Chloride (Sodium Chloride 0.9%) 1,000 mls @ 50 mls/hr IV .Q20H [facility] Last Admin: 05/30/16 14:17 Dose: 50 mls/hr Cefepime HCl (Maxipime Iv 1 Gm Premix) 50 mls @ 100 mls/hr IVPB Q24H [facility] Last Admin: 05/29/16 20:38 Dose: 100 mls/hr Insulin Aspart (Novolog) 12 unit SC ACTID [facility] Last Admin: 05/30/16 12:28 Dose: 12 unit Insulin Detemir (Levemir) 30 unit SC Q12 [facility] Last Admin: 05/30/16 09:31 Dose: 30 unit Insulin Human Regular (Novolin R) 0 unit SC ACHS [facility] PRN Reason: Protocol Last Admin: 05/30/16 12:21 Dose: Not Given Montelukast Sodium (Singulair) 10 mg PO HS [facility] Last Admin: 05/29/16 21:51 Dose: 10 mg Morphine Sulfate (Morphine) 4 mg IVP Q3 PRN PRN Reason: Pain, moderate (4-7) Last Admin: 05/30/16 14:11 Dose: 4 mg Fluticasone/Salmeterol (Advair Diskus 250/50) 2 puff IH RQ12 [facility] Last Admin: 05/30/16 08:48 Dose: 1 puff - Labs Labs: 05/30/16 06:53 05/30/16 06:53 PT 13.9 SECONDS (9.7-12.2) H 05/27/16 09:38 INR 1.2 05/27/16 09:38 APTT 65 SECONDS (21-34) H 05/29/16 10:50 Attending/Attestation - Attestation I have personally seen and examined this patient.: Yes I have fully participated in the care of the patient.: Yes I have reviewed all pertinent clinical information, including history, physical exam and plan: Yes Notes (Text): 05/30/16 15:26 Medical Attending: Patient was seen and examined by me. He still has the lower extremity swelling and pain. The BUN/Creatine seem to be improving with the slow IVF hydration. He is now on PO Eliquis BID. Hopefully has renal function improves then can get thromboylsis however if he is not able to then will have to go with the PO Eliquis, In the mean time continue with IV abx, and also continue raise leg. WBC is decreasing, this may be a reflection of being off of steroids now. Also continue to monitor the platelet count - it's was higher today thank you Rick Vargas 05/30/16 15:33
[2016-05-30] MEDS: Cefepime IV 1 gm in Dextrose 50 ML IVPB SCH (20:25)
[2016-05-31] MEDS: Aztreonam 1 GM in Sodium Chloride 0.9% 100 ML IVPB SCH ×2 (04:33→17:26)
[2016-05-31 07:33] LABS: BASO # 0.1 K/uL (0.0-0.2); BASO % 0.8 % (0.0-2.0); EOS % 5.2 % (0.0-4.0); HEMATOCRIT 43.8 % (35.0-51.0); LYMPH # 1.9 K/uL (1.0-4.3); LYMPH % 10.1 % (20.0-40.0); MEAN CELL VOLUME 89.9 fL (80.0-94.0); MEAN CORPUSCULAR HGB CONC 32.3 g/dL (33.0-37.0); MEAN PLATELET VOLUME 10.7 fL (7.2-11.7); MONO # 2.3 K/uL (0.0-0.8); MONO % 11.9 % (0.0-10.0); NRBC % 0.2 % (0.0-2.0); RED CELL DISTRIBUTION WIDTH 16.1 % (11.5-14.5)
[2016-05-31] MEDS: (Novolog) Insulin Aspart, Recombinant 100 u/ml 10 ml vial SC SCH ×3 (07:57→17:27)
[2016-05-31] MEDS: (Novolin R) Insulin Human Regular 100 units/ml vial SC SCH ×4 (07:57→21:51)
[2016-05-31] MEDS: Fluticasone-Salmeterol 250-50mcg Diskus IH SCH ×2 (08:09→19:19)
[2016-05-31 08:20] LABS: POTASSIUM 5.1 mmol/L (3.6-5.2)
[2016-05-31 08:22] LABS: BILIRUBIN,TOTAL 1.2 mg/dL (0.2-1.3)
[2016-05-31 08:23] LABS: ALB/GLOB RATIO 0.8 (1.0-2.1); CALCIUM 8.3 mg/dl (8.6-10.4); TOTAL PROTEIN 5.8 g/dL (6.3-8.3)
[2016-05-31] MEDS: Insulin Detemir 100 units/ml Vial (Levemir) SC SCH ×2 (09:35→21:50)
[2016-05-31] MEDS: Oxycodone/Acetaminophen 5/325 mg Tab PO PRN ×3 (10:38→21:49)
--- NOTE | 2016-05-31 10:43 | CP.PCM.PN ---
<Kimmy Madison - Last Filed: 05/31/16 10:34> Subjective - Date & Time of Evaluation Date of Evaluation: 05/31/16 Time of Evaluation: 07:10 - Subjective Subjective: PGY1 on Dr. Vargas's service: Patient seen and examined. Patient reports pain still in his R leg which has increased. He has stated that now there are "bubbles" on his foot. He denied chest pain, denied palpitations, denied abdominal pain, denied urinary complaints. Denied headache, denied fever, denied chills, denied headache. He denied shortness of breath. Objective - Vital Signs/Intake and Output Vital Signs (last 24 hours): Temp Pulse Resp BP Pulse Ox 97.4 F L 96 H 20 134/94 H 96 05/31/16 08:46 05/31/16 08:46 05/31/16 08:46 05/31/16 08:46 05/31/16 08:46 Intake and Output: 05/31/16 05/31/16 06:59 18:59 Intake Total 600 Output Total 4200 Balance -3600 - Medications Medications: Current Medications Apixaban (Eliquis) 10 mg PO BID [facility] Stop: 06/05/16 10:01 Last Admin: 05/31/16 09:35 Dose: 10 mg Aspirin (Aspirin Chewable) 81 mg PO DAILY [facility] Last Admin: 05/31/16 09:35 Dose: 81 mg Docusate Sodium (Colace) 100 mg PO BID [facility] Last Admin: 05/31/16 09:35 Dose: 100 mg Famotidine (Pepcid) 20 mg PO DAILY [facility] Last Admin: 05/31/16 09:35 Dose: 20 mg Aztreonam 1 gm/ Sodium (Chloride) 100 mls @ 100 mls/hr IVPB Q12H [facility] Last Admin: 05/31/16 04:33 Dose: 100 mls/hr Insulin Aspart (Novolog) 12 unit SC ACTID [facility] Last Admin: 05/31/16 07:57 Dose: 12 unit Insulin Detemir (Levemir) 30 unit SC Q12 [facility] Last Admin: 05/31/16 09:35 Dose: 30 unit Insulin Human Regular (Novolin R) 0 unit SC ACHS [facility] PRN Reason: Protocol Last Admin: 05/31/16 07:57 Dose: 1 unit Montelukast Sodium (Singulair) 10 mg PO HS [facility] Last Admin: 05/30/16 22:33 Dose: 10 mg Morphine Sulfate (Morphine) 4 mg IVP Q3 PRN PRN Reason: Pain, moderate (4-7) Last Admin: 05/31/16 08:30 Dose: 4 mg Oxycodone/Acetaminophen (Percocet 5/325 Mg Tab) 1 tab PO Q4H PRN PRN Reason: Pain, moderate (4-7) Stop: 06/03/16 10:06 Fluticasone/Salmeterol (Advair Diskus 250/50) 2 puff IH RQ12 [facility] Last Admin: 05/31/16 08:09 Dose: 2 puff - Labs Labs: 05/31/16 07:23 05/31/16 07:23 PT 13.9 SECONDS (9.7-12.2) H 05/27/16 09:38 INR 1.2 05/27/16 09:38 APTT 65 SECONDS (21-34) H 05/29/16 10:50 - Constitutional Appears: Non-toxic, No Acute Distress - Head Exam Head Exam: ATRAUMATIC, NORMAL INSPECTION - Eye Exam Eye Exam: EOMI, PERRL Pupil Exam: NORMAL ACCOMODATION - ENT Exam ENT Exam: Mucous Membranes Moist - Respiratory Exam Respiratory Exam: Clear to Ausculation Bilateral, NORMAL BREATHING PATTERN. absent: Accessory Muscle Use, Respiratory Distress - Cardiovascular Exam Cardiovascular Exam: REGULAR RHYTHM, +S1, +S2 - GI/Abdominal Exam GI & Abdominal Exam: Soft, Normal Bowel Sounds. absent: Distended, Firm, Guarding, Tenderness Additional comments: obese - Extremities Exam Additional comments: right lower extremity erythematous, warm to touch and diffusely tender to palpation. swelling noted from foot to hip. patient able to move toes. new bolli/vessicle formation x 2 on L foot. Not draining, clear - Back Exam Back Exam: NORMAL INSPECTION - Neurological Exam Neurological Exam: Alert, Awake, CN II-XII Intact, Oriented x3 - Psychiatric Exam Psychiatric exam: Normal Affect, Normal Mood - Skin Skin Exam: Dry, Warm Assessment and Plan - Assessment and Plan (Free Text) Assessment: Thrombosis of the R iliac and common femoral vein mild reduction of the venous return Right lower extremity swelling/pain Per ID patient has post phelibitis swelling. Will reach out to surgery (Dr. Ortega) and see if patient is stable for thrombolysis. Patient's renal function improving. Cr down to 1.7 Eliquis 10mg PO BID for 7 days (finish on 06/04) then start 5mg PO BID on 06/05 morphine to 4mg IV q3h for severe pain percocet 1 tab PO Q4 prn moderate pain - Continue to monitor labs - Elevate leg 05/28: Dr. Cornejo consulted- recommend starting eliquis. will send thrombophilia workup - likely secondary to known DVT vs cellulitis - Pain, erythema and swelling - afebrile, but admits to chills/night sweats - Leukocytosis with bandemia secondary to cellulitis vs steroid use Diagnostic studies - Art duplex study negative 05/25 - Repeat venous doppler 05/26 - shows known clot that extends at least to iliac vein on right Consults - Vascular surgery (Jordan) - would recommend thrombolysis but will hold for elevated CR, will continue to follow - ID (Salma) - recommends continuing Zosyn and adding Azactam. Also to get echo and CT abd pelvis. 05/27- added flagyl - Procalcitonin - 31.81 Bacteremia Aztreonam 1gm IVPB Q12 (started 05/26) Cefepime 1gm IVPB daily (started 05/26) - increased today per ID to 1gm IVPB Q12 hours WBC decreased to 19 blood culture positive for serratia marcescens sensitive to cipro, primaxin, aztreonam Abd CT: bilateral inguinal lymphadenopathy, right greater than left. cirrhotic contour of liver. cholelithiasis. possible infiltrate in lungs- bases Abd US: diffuse fatty infiltration of liver. cholelithiasis 05/28: WBC decreased to 29. Urine out put is ok, non febrile, and on Zosyn, Azactam, and recently placed on IV flagyl as well. - Blood cx (05/25) - gram neg rods identification pending - ID (Salma) consulted - Afebrile Acute renal failure on Chronic Kidney disease - Currently on slow IVF, monitor renal function. Patient in previous time admissions has had a lot of renal problems and at one point needed HD. Cr today 1.7 down from 2 yesterday, slowly improving - Nephro Arnulfo) consulted - help appreciated, f/u recs - Cr 1.5 on admission - Gently IVF hydration considering hx of HF. NS at 75 cc/hr Leukocytosis - WBC = 19 stable but has greatly improved from admission - secondary to cellulitis vs steroid use - Abx as above - monitor for fever - AM labs COPD/asthma - Duonebs 3ml INH q6h [facility] - Home Advair - prednisone 40mg daily - discontinued - home Singulair 10mg PO HS Biventricular heart failure - 01/2016 ECHO- LV EF 60-65%, mild pulmonary HTN (see full report) - repeat echo pending - EF 55-60% mild pulm hten (please see full report) - Evaluated by Dr Rodriguez on last admission for NSTEMI - home lasix - held for elevated Cr DM - steroid treatment completed - A1C 11.0 - Levemir U 30 SC Q12 - Novolog 12 U ACTID - ISS HTN - Continue home meds - Monitor vitals q4h and adjust as needed CAD - hx NSTEMI - Crestor 20mg PO HS Prophylactic measures - SCDs contraindicated due to DVT - Eliquis 10mg PO BID - Pepcid 20mg PO daily - NS at 50 cc/hour - Heart healthy/diabetic diet - PT/OT <AliciaPeter H - Last Filed: 05/31/16 15:17> Objective - Vital Signs/Intake and Output Vital Signs (last 24 hours): Temp Pulse Resp BP Pulse Ox 97.4 F L 96 H 20 134/94 H 96 05/31/16 08:46 05/31/16 08:46 05/31/16 08:46 05/31/16 08:46 05/31/16 08:46 Intake and Output: 05/31/16 05/31/16 06:59 18:59 Intake Total 600 Output Total 4200 650 Balance -3600 -650 - Medications Medications: Current Medications Apixaban (Eliquis) 10 mg PO BID [facility] Stop: 06/05/16 10:01 Last Admin: 05/31/16 09:35 Dose: 10 mg Aspirin (Aspirin Chewable) 81 mg PO DAILY [facility] Last Admin: 05/31/16 09:35 Dose: 81 mg Docusate Sodium (Colace) 100 mg PO BID [facility] Last Admin: 05/31/16 09:35 Dose: 100 mg Famotidine (Pepcid) 20 mg PO DAILY [facility] Last Admin: 05/31/16 09:35 Dose: 20 mg Aztreonam 1 gm/ Sodium (Chloride) 100 mls @ 100 mls/hr IVPB Q12H [facility] Last Admin: 05/31/16 04:33 Dose: 100 mls/hr Cefepime HCl (Maxipime Iv 1 Gm Premix) 50 mls @ 100 mls/hr IVPB Q12 [facility] Insulin Aspart (Novolog) 12 unit SC ACTID [facility] Last Admin: 05/31/16 12:23 Dose: 12 unit Insulin Detemir (Levemir) 30 unit SC Q12 [facility] Last Admin: 05/31/16 09:35 Dose: 30 unit Insulin Human Regular (Novolin R) 0 unit SC ACHS [facility] PRN Reason: Protocol Last Admin: 05/31/16 12:24 Dose: 2 unit Montelukast Sodium (Singulair) 10 mg PO HS [facility] Last Admin: 05/30/16 22:33 Dose: 10 mg Morphine Sulfate (Morphine) 4 mg IVP Q3 PRN PRN Reason: Pain, moderate (4-7) Last Admin: 05/31/16 13:02 Dose: 4 mg Oxycodone/Acetaminophen (Percocet 5/325 Mg Tab) 1 tab PO Q4H PRN PRN Reason: Pain, moderate (4-7) Stop: 06/03/16 10:06 Last Admin: 05/31/16 14:31 Dose: 1 tab Fluticasone/Salmeterol (Advair Diskus 250/50) 2 puff IH RQ12 [facility] Last Admin: 05/31/16 08:09 Dose: 2 puff - Labs Labs: 05/31/16 07:23 05/31/16 07:23 PT 13.9 SECONDS (9.7-12.2) H 05/27/16 09:38 INR 1.2 05/27/16 09:38 APTT 65 SECONDS (21-34) H 05/29/16 10:50 Attending/Attestation - Attestation I have personally seen and examined this patient.: Yes I have fully participated in the care of the patient.: Yes I have reviewed all pertinent clinical information, including history, physical exam and plan: Yes Notes (Text): Medical Attending : Patient was seen and examined by me, agree with the above note by the resident. The patient's renal function again improved today. Hopefully at some point will be suitable for thrombolysis if the DVT. Currently on Eliquis at this time thank you Rick Vargas
--- NOTE | 2016-05-31 11:22 | CP.PCM.PN ---
Subjective - Date & Time of Evaluation Date of Evaluation: 05/31/16 Time of Evaluation: 11:20 - Subjective Subjective: nun still elevated no immediate plans for thrombolysis due to renal issues Objective - Vital Signs/Intake and Output Vital Signs (last 24 hours): Temp Pulse Resp BP Pulse Ox 97.4 F L 96 H 20 134/94 H 96 05/31/16 08:46 05/31/16 08:46 05/31/16 08:46 05/31/16 08:46 05/31/16 08:46 Intake and Output: 05/31/16 05/31/16 06:59 18:59 Intake Total 600 Output Total 4200 Balance -3600 - Medications Medications: Current Medications Apixaban (Eliquis) 10 mg PO BID [facility] Stop: 06/05/16 10:01 Last Admin: 05/31/16 09:35 Dose: 10 mg Aspirin (Aspirin Chewable) 81 mg PO DAILY [facility] Last Admin: 05/31/16 09:35 Dose: 81 mg Docusate Sodium (Colace) 100 mg PO BID [facility] Last Admin: 05/31/16 09:35 Dose: 100 mg Famotidine (Pepcid) 20 mg PO DAILY [facility] Last Admin: 05/31/16 09:35 Dose: 20 mg Aztreonam 1 gm/ Sodium (Chloride) 100 mls @ 100 mls/hr IVPB Q12H [facility] Last Admin: 05/31/16 04:33 Dose: 100 mls/hr Cefepime HCl (Maxipime Iv 1 Gm Premix) 50 mls @ 100 mls/hr IVPB Q12 [facility] Insulin Aspart (Novolog) 12 unit SC ACTID [facility] Last Admin: 05/31/16 07:57 Dose: 12 unit Insulin Detemir (Levemir) 30 unit SC Q12 [facility] Last Admin: 05/31/16 09:35 Dose: 30 unit Insulin Human Regular (Novolin R) 0 unit SC ACHS [facility] PRN Reason: Protocol Last Admin: 05/31/16 07:57 Dose: 1 unit Montelukast Sodium (Singulair) 10 mg PO HS [facility] Last Admin: 05/30/16 22:33 Dose: 10 mg Morphine Sulfate (Morphine) 4 mg IVP Q3 PRN PRN Reason: Pain, moderate (4-7) Last Admin: 05/31/16 08:30 Dose: 4 mg Oxycodone/Acetaminophen (Percocet 5/325 Mg Tab) 1 tab PO Q4H PRN PRN Reason: Pain, moderate (4-7) Stop: 06/03/16 10:06 Last Admin: 05/31/16 10:38 Dose: 1 tab Fluticasone/Salmeterol (Advair Diskus 250/50) 2 puff IH RQ12 [facility] Last Admin: 05/31/16 08:09 Dose: 2 puff - Labs Labs: 05/31/16 07:23 05/31/16 07:23 PT 13.9 SECONDS (9.7-12.2) H 05/27/16 09:38 INR 1.2 05/27/16 09:38 APTT 65 SECONDS (21-34) H 05/29/16 10:50
[2016-05-31] MEDS: Sodium Chloride 0.9% 1,000 ML IV SCH (12:28)
--- NOTE | 2016-05-31 14:56 | CARD ---
APPROVED REPORT EKG Measurement Heart [id number] <Conclusion> Normal sinus rhythm Left axis deviation Right bundle branch block Abnormal ECG
--- NOTE | 2016-05-31 17:10 | CP.PCM.PN ---
Subjective - Date & Time of Evaluation Date of Evaluation: 05/30/16 Time of Evaluation: 20:30 - Subjective Subjective: Has RLE discomfort, swelling Objective - Vital Signs/Intake and Output Vital Signs (last 24 hours): Temp Pulse Resp BP Pulse Ox 97.9 F 88 20 158/91 H 95 05/31/16 15:44 05/31/16 15:44 05/31/16 15:44 05/31/16 15:44 05/31/16 15:44 Intake and Output: 05/31/16 05/31/16 06:59 18:59 Intake Total 600 Output Total 4200 650 Balance -3600 -650 - Medications Medications: Current Medications Apixaban (Eliquis) 10 mg PO BID [facility] Stop: 06/05/16 10:01 Last Admin: 05/31/16 09:35 Dose: 10 mg Aspirin (Aspirin Chewable) 81 mg PO DAILY [facility] Last Admin: 05/31/16 09:35 Dose: 81 mg Docusate Sodium (Colace) 100 mg PO BID [facility] Last Admin: 05/31/16 09:35 Dose: 100 mg Famotidine (Pepcid) 20 mg PO DAILY [facility] Last Admin: 05/31/16 09:35 Dose: 20 mg Aztreonam 1 gm/ Sodium (Chloride) 100 mls @ 100 mls/hr IVPB Q12H [facility] Last Admin: 05/31/16 04:33 Dose: 100 mls/hr Cefepime HCl (Maxipime Iv 1 Gm Premix) 50 mls @ 100 mls/hr IVPB Q12 [facility] Insulin Aspart (Novolog) 12 unit SC ACTID [facility] Last Admin: 05/31/16 12:23 Dose: 12 unit Insulin Detemir (Levemir) 30 unit SC Q12 [facility] Last Admin: 05/31/16 09:35 Dose: 30 unit Insulin Human Regular (Novolin R) 0 unit SC ACHS [facility] PRN Reason: Protocol Last Admin: 05/31/16 12:24 Dose: 2 unit Montelukast Sodium (Singulair) 10 mg PO HS [facility] Last Admin: 05/30/16 22:33 Dose: 10 mg Morphine Sulfate (Morphine) 4 mg IVP Q3 PRN PRN Reason: Pain, moderate (4-7) Last Admin: 05/31/16 13:02 Dose: 4 mg Oxycodone/Acetaminophen (Percocet 5/325 Mg Tab) 1 tab PO Q4H PRN PRN Reason: Pain, moderate (4-7) Stop: 06/03/16 10:06 Last Admin: 05/31/16 14:31 Dose: 1 tab Fluticasone/Salmeterol (Advair Diskus 250/50) 2 puff IH RQ12 [facility] Last Admin: 05/31/16 08:09 Dose: 2 puff - Labs Labs: 05/31/16 07:23 05/31/16 07:23 PT 13.9 SECONDS (9.7-12.2) H 05/27/16 09:38 INR 1.2 05/27/16 09:38 APTT 65 SECONDS (21-34) H 05/29/16 10:50 - Head Exam Head Exam: ATRAUMATIC - Eye Exam Eye Exam: Normal appearance - ENT Exam ENT Exam: Mucous Membranes Dry - Respiratory Exam Respiratory Exam: NORMAL BREATHING PATTERN - Cardiovascular Exam Cardiovascular Exam: +S1, +S2 - GI/Abdominal Exam GI & Abdominal Exam: Normal Bowel Sounds - Extremities Exam Additional comments: RLE swelling and erythema Assessment and Plan (1) Deep venous thrombosis of lower extremity 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
[2016-05-31] MEDS: Cefepime IV 1 gm in Dextrose 50 ML IVPB SCH (21:50)
[2016-06-01] MEDS: Aztreonam 1 GM in Sodium Chloride 0.9% 100 ML IVPB SCH ×2 (04:00→17:24)
[2016-06-01] MEDS: Oxycodone/Acetaminophen 5/325 mg Tab PO PRN ×4 (04:25→21:25)
[2016-06-01 04:43] LABS: B2 GLYCOPROTEIN I AB(IGA) >150 SAU (<=20); B2 GLYCOPROTEIN I AB(IGG) 91 SGU (<=20); B2 GLYCOPROTEIN I AB(IGM) <9 SMU (<=20)
[2016-06-01 05:43] LABS: CARDIOLIPIN AB (IGA) >150 APL (<=11)
[2016-06-01 07:18] LABS: BASO # 0.2 K/uL (0.0-0.2); BASO % 0.9 % (0.0-2.0); EOS # 1.2 K/uL (0.0-0.7); EOS % 6.5 % (0.0-4.0); HEMATOCRIT 42.9 % (35.0-51.0); LYMPH % 5.5 % (20.0-40.0); MEAN CELL VOLUME 88.9 fL (80.0-94.0); MEAN CORPUSCULAR HEMOGLOBIN 29.4 pg (27.0-31.0); MEAN PLATELET VOLUME 10.6 fL (7.2-11.7); MONO # 2.1 K/uL (0.0-0.8); MONO % 11.3 % (0.0-10.0); NRBC % 0.1 % (0.0-2.0); PLATELET COUNT 133 K/uL (130-400); RED CELL DISTRIBUTION WIDTH 16.2 % (11.5-14.5); WHITE BLOOD COUNT 18.9 K/uL (4.8-10.8)
[2016-06-01 07:31] LABS: POTASSIUM 4.5 mmol/L (3.6-5.2)
[2016-06-01 07:33] LABS: BILIRUBIN,TOTAL 1.1 mg/dL (0.2-1.3)
[2016-06-01 07:34] LABS: ALB/GLOB RATIO 0.9 (1.0-2.1); CALCIUM 8.3 mg/dl (8.6-10.4); MAGNESIUM 1.9 mg/dL (1.6-2.3); PHOSPHOROUS 3.8 mg/dL (2.5-4.5); TOTAL PROTEIN 5.8 g/dL (6.3-8.3)
[2016-06-01] MEDS: Fluticasone-Salmeterol 250-50mcg Diskus IH SCH ×2 (07:55→19:51)
[2016-06-01] MEDS: (Novolog) Insulin Aspart, Recombinant 100 u/ml 10 ml vial SC SCH ×3 (08:03→17:22)
[2016-06-01] MEDS: (Novolin R) Insulin Human Regular 100 units/ml vial SC SCH ×4 (08:04→21:26)
[2016-06-01 08:25] LABS: EOSINOPHIL 10 % (0-4); NEUTROPHIL 74 % (50-75); TOTAL CELLS COUNTED 100
[2016-06-01 08:27] LABS: LARGE PLATELETS PRESENT
--- NOTE | 2016-06-01 08:56 | CP.PCM.PN ---
<Kimmy Madison - Last Filed: 06/01/16 16:08> Subjective - Date & Time of Evaluation Date of Evaluation: 06/01/16 Time of Evaluation: 07:10 - Subjective Subjective: PGY1 on Dr. Davidson's service: Patient seen and examined. Patient reports "lots of pain" still in his R leg but is controlled with pain medications. He denied chest pain, denied palpitations, denied abdominal pain, denied urinary complaints. Denied headache , denied fever, denied chills, denied headache. He denied shortness of breath. Will discuss with Dr. Ortega about plans for surgery. Objective - Vital Signs/Intake and Output Vital Signs (last 24 hours): Temp Pulse Resp BP Pulse Ox 98.2 F 107 H 20 150/88 95 06/01/16 08:04 06/01/16 08:04 06/01/16 08:04 06/01/16 08:04 06/01/16 08:04 Intake and Output: 06/01/16 06/01/16 06:59 18:59 Intake Total 800 Output Total 3200 Balance -2400 - Medications Medications: Current Medications Apixaban (Eliquis) 10 mg PO BID [facility] Stop: 06/05/16 10:01 Last Admin: 05/31/16 17:26 Dose: 10 mg Aspirin (Aspirin Chewable) 81 mg PO DAILY [facility] Last Admin: 05/31/16 09:35 Dose: 81 mg Docusate Sodium (Colace) 100 mg PO BID [facility] Last Admin: 05/31/16 17:26 Dose: 100 mg Famotidine (Pepcid) 20 mg PO DAILY [facility] Last Admin: 05/31/16 09:35 Dose: 20 mg Aztreonam 1 gm/ Sodium (Chloride) 100 mls @ 100 mls/hr IVPB Q12H [facility] Last Admin: 06/01/16 04:00 Dose: 100 mls/hr Cefepime HCl (Maxipime Iv 1 Gm Premix) 50 mls @ 100 mls/hr IVPB Q12 [facility] Last Admin: 05/31/16 21:50 Dose: 100 mls/hr Insulin Aspart (Novolog) 12 unit SC ACTID [facility] Last Admin: 06/01/16 08:03 Dose: 12 unit Insulin Detemir (Levemir) 30 unit SC Q12 [facility] Last Admin: 05/31/16 21:50 Dose: 30 unit Insulin Human Regular (Novolin R) 0 unit SC ACHS [facility] PRN Reason: Protocol Last Admin: 06/01/16 08:04 Dose: Not Given Montelukast Sodium (Singulair) 10 mg PO HS [facility] Last Admin: 05/31/16 21:48 Dose: 10 mg Morphine Sulfate (Morphine) 4 mg IVP Q3 PRN PRN Reason: Pain, moderate (4-7) Last Admin: 05/31/16 17:23 Dose: 4 mg Oxycodone/Acetaminophen (Percocet 5/325 Mg Tab) 1 tab PO Q4H PRN PRN Reason: Pain, moderate (4-7) Stop: 06/03/16 10:06 Last Admin: 06/01/16 08:06 Dose: 1 tab Fluticasone/Salmeterol (Advair Diskus 250/50) 2 puff IH RQ12 [facility] Last Admin: 06/01/16 07:55 Dose: 1 puff - Labs Labs: 06/01/16 07:05 06/01/16 07:05 PT 13.9 SECONDS (9.7-12.2) H 05/27/16 09:38 INR 1.2 05/27/16 09:38 APTT 65 SECONDS (21-34) H 05/29/16 10:50 - Constitutional Appears: Non-toxic, No Acute Distress - Head Exam Head Exam: ATRAUMATIC, NORMAL INSPECTION - Eye Exam Eye Exam: EOMI Pupil Exam: NORMAL ACCOMODATION - ENT Exam ENT Exam: Mucous Membranes Moist - Respiratory Exam Respiratory Exam: Clear to Ausculation Bilateral, NORMAL BREATHING PATTERN. absent: Accessory Muscle Use, Respiratory Distress - Cardiovascular Exam Cardiovascular Exam: REGULAR RHYTHM, +S1, +S2 - GI/Abdominal Exam GI & Abdominal Exam: Soft, Normal Bowel Sounds. absent: Distended, Firm, Guarding, Tenderness Additional comments: obese - Extremities Exam Extremities Exam: Pedal Edema Additional comments: right lower extremity erythematous, warm to touch and diffusely tender to palpation. swelling noted from foot to hip. patient able to move toes. new bolli/vessicle formation x 2 on L foot. Not draining, clear - Back Exam Back Exam: NORMAL INSPECTION. 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 Will reach out to surgery (Dr. Ortega) and see if patient is stable for thrombolysis. Patient's renal function improving. Cr down to 1.6 - still not a candidate for surgery Eliquis 10mg PO BID for 7 days (finish on 06/04) then start 5mg PO BID on 06/05 morphine to 4mg IV q3h for severe pain percocet 1 tab PO Q4 prn moderate pain - Continue to monitor labs - Elevate leg 05/28: Dr. Cornejo consulted- recommend starting eliquis. will send thrombophilia workup - likely secondary to known DVT vs cellulitis - Pain, erythema and swelling - afebrile, but admits to chills/night sweats - Leukocytosis with bandemia secondary to cellulitis vs steroid use Diagnostic studies - Art duplex study negative 05/25 - Repeat venous doppler 05/26 - shows known clot that extends at least to iliac vein on right Consults - Vascular surgery (Jordan) - would recommend thrombolysis but will hold for elevated CR, will continue to follow - ID (Salma) - recommends continuing Zosyn and adding Azactam. Also to get echo and CT abd pelvis. 05/27- added flagyl - Procalcitonin - 31.81 Bacteremia Aztreonam 1gm IVPB Q8 (started 05/26) Cefepime 1gm IVPB daily (started 05/26) WBC decreased to 18.9 blood culture positive for serratia marcescens sensitive to cipro, primaxin, aztreonam ID (Salma) consulted - help appreciated Abd CT: bilateral inguinal lymphadenopathy, right greater than left. cirrhotic contour of liver. cholelithiasis. possible infiltrate in lungs- bases Abd US: diffuse fatty infiltration of liver. cholelithiasis 05/28: WBC decreased to 29. Urine out put is ok, non febrile, and on Zosyn, Azactam, and recently placed on IV flagyl as well. - Blood cx (05/25) - gram neg rods - Afebrile Acute renal failure on Chronic Kidney disease - Currently on slow IVF, monitor renal function. Patient in previous time admissions has had a lot of renal problems and at one point needed HD. Cr today 1.6 down from 1.7 yesterday, slowly improving - Nephro Arnulfo) consulted - help appreciated, f/u recs - Cr 1.5 on admission - Gently IVF hydration considering hx of HF. NS at 75 cc/hr Leukocytosis - WBC = 18.9 stable but has greatly improved from admission - secondary to cellulitis vs steroid use - Abx as above - monitor for fever - AM labs COPD/asthma - Duonebs 3ml INH q6h [facility] - Home Advair - home Singulair 10mg PO HS Biventricular heart failure - 01/2016 ECHO- LV EF 60-65%, mild pulmonary HTN (see full report) - repeat echo pending - EF 55-60% mild pulm hten (please see full report) - Evaluated by Dr Rodriguez on last admission for NSTEMI - home lasix - held for elevated Cr DM - steroid treatment completed - A1C 11.0 - Levemir U 30 SC Q12 - Novolog 12 U ACTID - ISS HTN - Continue home meds - Monitor vitals q4h and adjust as needed CAD - hx NSTEMI - Crestor 20mg PO HS Prophylactic measures - SCDs contraindicated due to DVT - Eliquis 10mg PO BID - Pepcid 20mg PO daily - NS at 50 cc/hour - Heart healthy/diabetic diet - PT/OT - d/c joseph <Ady Davidson - Last Filed: 07/01/16 15:48> Objective - Vital Signs/Intake and Output Vital Signs (last 24 hours): Temp Pulse Resp BP Pulse Ox 99.4 F 92 H 17 124/84 98 06/24/16 18:00 06/24/16 18:00 06/24/16 06:00 06/24/16 10:16 06/23/16 22:00 - Labs Labs: 06/24/16 06:31 06/24/16 06:31 PT 14.2 SECONDS (9.7-12.2) H 06/19/16 09:51 INR 1.3 06/19/16 09:51 APTT 63 SECONDS (21-34) H 06/19/16 09:51 Attending/Attestation - Attestation I have personally seen and examined this patient.: Yes I have fully participated in the care of the patient.: Yes I have reviewed all pertinent clinical information, including history, physical exam and plan: Yes Notes (Text): Patient seen and examined with the resident. Agree with the residents evaluation, assessment and plan. Thrombosis of the R iliac and common femoral vein mild reduction of the venous return Right lower extremity swelling/pain Per ID patient has post phelibitis swelling. Will reach out to surgery (Dr. Ortega) and see if patient is stable for thrombolysis. Patient's renal function improving. Cr down to 1.6 - still not a candidate for surgery Eliquis 10mg PO BID for 7 days (finish on 06/04) then start 5mg PO BID on 06/05 morphine to 4mg IV q3h for severe pain percocet 1 tab PO Q4 prn moderate pain - Continue to monitor labs - Elevate leg 05/28: Dr. Cornejo consulted- recommend starting eliquis. will send thrombophilia workup - likely secondary to known DVT vs cellulitis - Pain, erythema and swelling - afebrile, but admits to chills/night sweats - Leukocytosis with bandemia secondary to cellulitis vs steroid use Diagnostic studies - Art duplex study negative 05/25 - Repeat venous doppler 05/26 - shows known clot that extends at least to iliac vein on right Consults - Vascular surgery (Jordan) - would recommend thrombolysis but will hold for elevated CR, will continue to follow - ID (Salma) - recommends continuing Zosyn and adding Azactam. Also to get echo and CT abd pelvis. 05/27- added flagyl - Procalcitonin - 31.81 Bacteremia Aztreonam 1gm IVPB Q8 (started 05/26) Cefepime 1gm IVPB daily (started 05/26) WBC decreased to 18.9 blood culture positive for serratia marcescens sensitive to cipro, primaxin, aztreonam ID (Salma) consulted - help appreciated Abd CT: bilateral inguinal lymphadenopathy, right greater than left. cirrhotic contour of liver. cholelithiasis. possible infiltrate in lungs- bases Abd US: diffuse fatty infiltration of liver. cholelithiasis 05/28: WBC decreased to 29. Urine out put is ok, non febrile, and on Zosyn, Azactam, and recently placed on IV flagyl as well. - Blood cx (05/25) - gram neg rods - Afebrile Acute renal failure on Chronic Kidney disease - Currently on slow IVF, monitor renal function. Patient in previous time admissions has had a lot of renal problems and at one point needed HD. Cr today 1.6 down from 1.7 yesterday, slowly improving - Nephro Arnulfo) consulted - help appreciated, f/u recs - Cr 1.5 on admission - Gently IVF hydration considering hx of HF. NS at 75 cc/hr Leukocytosis - WBC = 18.9 stable but has greatly improved from admission - secondary to cellulitis vs steroid use - Abx as above - monitor for fever - AM labs
[2016-06-01] MEDS: Insulin Detemir 100 units/ml Vial (Levemir) SC SCH (09:20)
[2016-06-01] MEDS: Cefepime IV 1 gm in Dextrose 50 ML IVPB SCH ×2 (09:20→21:25)
--- NOTE | 2016-06-01 12:54 | CP.PCM.PN ---
Subjective - Date & Time of Evaluation Date of Evaluation: 06/01/16 Time of Evaluation: 12:52 - Subjective Subjective: pain in leg creatinine decreasing no urinary issues no chest pain no sob no nausea appetite is good no fever no chills Objective - Vital Signs/Intake and Output Vital Signs (last 24 hours): Temp Pulse Resp BP Pulse Ox 98.2 F 107 H 20 150/88 95 06/01/16 08:04 06/01/16 08:04 06/01/16 08:04 06/01/16 08:04 06/01/16 08:04 Intake and Output: 06/01/16 06/01/16 06:59 18:59 Intake Total 800 Output Total 3200 Balance -2400 - Medications Medications: Current Medications Apixaban (Eliquis) 10 mg PO BID [facility] Last Admin: 06/01/16 10:39 Dose: Not Given Aspirin (Aspirin Chewable) 81 mg PO DAILY [facility] Last Admin: 06/01/16 09:20 Dose: 81 mg Docusate Sodium (Colace) 100 mg PO BID [facility] Last Admin: 06/01/16 09:20 Dose: 100 mg Famotidine (Pepcid) 20 mg PO DAILY [facility] Last Admin: 06/01/16 09:20 Dose: 20 mg Aztreonam 1 gm/ Sodium (Chloride) 100 mls @ 100 mls/hr IVPB Q12H [facility] Last Admin: 06/01/16 04:00 Dose: 100 mls/hr Cefepime HCl (Maxipime Iv 1 Gm Premix) 50 mls @ 100 mls/hr IVPB Q12 [facility] Last Admin: 06/01/16 09:20 Dose: 100 mls/hr Insulin Aspart (Novolog) 12 unit SC ACTID [facility] Last Admin: 06/01/16 12:18 Dose: 12 unit Insulin Detemir (Levemir) 30 unit SC Q12 [facility] Last Admin: 06/01/16 09:20 Dose: 30 unit Insulin Human Regular (Novolin R) 0 unit SC ACHS [facility] PRN Reason: Protocol Last Admin: 06/01/16 12:19 Dose: 1 unit Montelukast Sodium (Singulair) 10 mg PO HS [facility] Last Admin: 05/31/16 21:48 Dose: 10 mg Morphine Sulfate (Morphine) 4 mg IVP Q3 PRN PRN Reason: Pain, moderate (4-7) Last Admin: 06/01/16 11:11 Dose: 4 mg Oxycodone/Acetaminophen (Percocet 5/325 Mg Tab) 1 tab PO Q4H PRN PRN Reason: Pain, moderate (4-7) Stop: 06/03/16 10:06 Last Admin: 06/01/16 08:06 Dose: 1 tab Fluticasone/Salmeterol (Advair Diskus 250/50) 2 puff IH RQ12 [facility] Last Admin: 06/01/16 07:55 Dose: 1 puff - Labs Labs: 06/01/16 07:05 06/01/16 07:05 PT 13.9 SECONDS (9.7-12.2) H 05/27/16 09:38 INR 1.2 05/27/16 09:38 APTT 65 SECONDS (21-34) H 05/29/16 10:50 - Constitutional Appears: Non-toxic, No Acute Distress - Eye Exam Eye Exam: EOMI, Normal appearance - ENT Exam ENT Exam: Mucous Membranes Moist - Neck Exam Neck Exam: Full ROM. absent: Lymphadenopathy - Respiratory Exam Respiratory Exam: Clear to Ausculation Bilateral. absent: Accessory Muscle Use - Cardiovascular Exam Cardiovascular Exam: REGULAR RHYTHM. absent: Rubs - GI/Abdominal Exam GI & Abdominal Exam: absent: Guarding, Tenderness - Extremities Exam Additional comments: left leg swelling and blistering,+ warmth - Neurological Exam Neurological Exam: Alert, Altered Assessment and Plan - Assessment and Plan (Free Text) Assessment: jeff on ckd, improved avoid nephrotoxics dvt of right leg and superimposed cellulitis continue a/c and antibiotics for thrombolytic therapy avoid nephrotoxics
--- NOTE | 2016-06-01 14:23 | CP.PCM.PN ---
Subjective - Date & Time of Evaluation Date of Evaluation: 06/01/16 Time of Evaluation: 02:15 - Subjective Subjective: dictated Objective - Vital Signs/Intake and Output Vital Signs (last 24 hours): Temp Pulse Resp BP Pulse Ox 98.2 F 107 H 20 150/88 95 06/01/16 08:04 06/01/16 08:04 06/01/16 08:04 06/01/16 08:04 06/01/16 08:04 Intake and Output: 06/01/16 06/01/16 06:59 18:59 Intake Total 800 Output Total 3200 Balance -2400 - Medications Medications: Current Medications Apixaban (Eliquis) 10 mg PO BID [facility] Last Admin: 06/01/16 10:39 Dose: Not Given Aspirin (Aspirin Chewable) 81 mg PO DAILY [facility] Last Admin: 06/01/16 09:20 Dose: 81 mg Docusate Sodium (Colace) 100 mg PO BID [facility] Last Admin: 06/01/16 09:20 Dose: 100 mg Famotidine (Pepcid) 20 mg PO DAILY [facility] Last Admin: 06/01/16 09:20 Dose: 20 mg Aztreonam 1 gm/ Sodium (Chloride) 100 mls @ 100 mls/hr IVPB Q12H [facility] Last Admin: 06/01/16 04:00 Dose: 100 mls/hr Cefepime HCl (Maxipime Iv 1 Gm Premix) 50 mls @ 100 mls/hr IVPB Q12 [facility] Last Admin: 06/01/16 09:20 Dose: 100 mls/hr Insulin Aspart (Novolog) 12 unit SC ACTID [facility] Last Admin: 06/01/16 12:18 Dose: 12 unit Insulin Detemir (Levemir) 30 unit SC Q12 [facility] Last Admin: 06/01/16 09:20 Dose: 30 unit Insulin Human Regular (Novolin R) 0 unit SC ACHS [facility] PRN Reason: Protocol Last Admin: 06/01/16 12:19 Dose: 1 unit Montelukast Sodium (Singulair) 10 mg PO HS [facility] Last Admin: 05/31/16 21:48 Dose: 10 mg Morphine Sulfate (Morphine) 4 mg IVP Q3 PRN PRN Reason: Pain, moderate (4-7) Last Admin: 06/01/16 11:11 Dose: 4 mg Oxycodone/Acetaminophen (Percocet 5/325 Mg Tab) 1 tab PO Q4H PRN PRN Reason: Pain, moderate (4-7) Stop: 06/03/16 10:06 Last Admin: 06/01/16 13:41 Dose: 1 tab Fluticasone/Salmeterol (Advair Diskus 250/50) 2 puff IH RQ12 [facility] Last Admin: 06/01/16 07:55 Dose: 1 puff - Labs Labs: 06/01/16 07:05 06/01/16 07:05 PT 13.9 SECONDS (9.7-12.2) H 05/27/16 09:38 INR 1.2 05/27/16 09:38 APTT 65 SECONDS (21-34) H 05/29/16 10:50
--- NOTE | 2016-06-01 14:59 | PN ---
DATE: 06/01/2016 INFECTIOUS DISEASE FOLLOWUP PHYSICAL EXAMINATION: VITAL SIGNS: The patient's T-max was 99.5 yesterday. Today it is 98.2. Heart rate remains tachycar dic. His blood pressure is 150/88. Respirations are 20. GENERAL: He gets easily decompensated, as he was trying to put the shorts on. His right leg, thigh remain very swollen along with the scrotal area, and he denies otherwise any complaints, had to put o xygen back. T-max as above. No urinary problems, no shortness of breath on rest. He is making urin e. HEENT: Remains unremarkable. He is morbidly obese. NECK: Supple. LUNGS: Clear. No crackles or rales present. HEART: S1, S2, is tachycardic. ABDOMEN: Soft, nontender. EXTREMITIES: Right thigh remains very swollen with right leg swollen, and right foot swollen and he is elevating it over a pillow. LABORATORY DATA: White count is 18.9. Hemoglobin is 14.2. Hematocrit is 42.9. Platelets today are 133 - is a little better than before. We had changed the Zosyn to Maxipime. Sodium is 136, potassi um 4.5. BUN is 48, and creatinine is 1.6. At this point, I will increase the Maxipime to 2 grams q. 12 if possible, and actually change the Aza ctam to 1 gram q. 8 first, and we will follow, and the patient remains with renal insufficiency, but it is improving, and he will need some sort of procedure, as he has extensive swelling of the right l eg with clotting, and we will follow. I have increased his Azactam to 1 gram q. 8, as the creatinine is improving, and we will continue Maxipime as before, and his nebulizer treatment should be continu ed. He is recovering from Serratia infection, which may be related to the leg, as we did not find a ny other source. He did have some infiltrates in the lung. I doubt it is from that. We will follo w with hematology/oncology and the surgeon. Joshua Marsh MD cc: [id number] TT: 06/01/2016 14:59:06 Confirmation # [id number] Dictation # [id number]
[2016-06-01] MEDS ORDERED: Aztreonam 1 GM in Sodium Chloride 0.9% 100 ML IVPB SCH (15:00)
[2016-06-02] LABS: PHOSPHATIDYLSERINE AB IGA 83 U/mL (<20); PHOSPHATIDYLSERINE AB IGM <25 U/mL (<25)
[2016-06-02] MEDS: Aztreonam 1 GM in Sodium Chloride 0.9% 100 ML IVPB SCH ×3 (00:57→17:01)
[2016-06-02] MEDS: Oxycodone/Acetaminophen 5/325 mg Tab PO PRN ×3 (02:44→17:00)
[2016-06-02 07:10] LABS: BASO # 0.1 K/uL (0.0-0.2); BASO % 0.9 % (0.0-2.0); EOS # 0.9 K/uL (0.0-0.7); EOS % 7.4 % (0.0-4.0); HEMATOCRIT 41.5 % (35.0-51.0); LYMPH # 1.1 K/uL (1.0-4.3); LYMPH % 9.4 % (20.0-40.0); MEAN CELL VOLUME 89.3 fL (80.0-94.0); MEAN CORPUSCULAR HEMOGLOBIN 29.9 pg (27.0-31.0); MEAN CORPUSCULAR HGB CONC 33.4 g/dL (33.0-37.0); MEAN PLATELET VOLUME 10.6 fL (7.2-11.7); MONO % 17.3 % (0.0-10.0); NRBC % 0.3 % (0.0-2.0); PLATELET COUNT 133 K/uL (130-400); RED CELL DISTRIBUTION WIDTH 16.3 % (11.5-14.5); WHITE BLOOD COUNT 11.7 K/uL (4.8-10.8)
--- NOTE | 2016-06-02 07:14 | CP.PCM.PN ---
<Kimmy Madison - Last Filed: 06/02/16 10:23> Subjective - Date & Time of Evaluation Date of Evaluation: 06/02/16 Time of Evaluation: 07:00 - Subjective Subjective: PGY1 on Dr. Davidson's service: Patient seen and examined. Patient reports that the pain in his R leg has decreased and is controlled with pain medications. He denied chest pain, denied palpitations, denied abdominal pain, denied urinary complaints. Denied headache , denied fever, denied chills, denied headache. He denied shortness of breath. Objective - Vital Signs/Intake and Output Vital Signs (last 24 hours): Temp Pulse Resp BP Pulse Ox 99.7 F H 112 H 20 139/79 96 06/01/16 23:25 06/01/16 23:40 06/01/16 23:25 06/01/16 23:25 06/01/16 23:25 Intake and Output: 06/02/16 06/02/16 06:59 18:59 Output Total 300 Balance -300 - Medications Medications: Current Medications Apixaban (Eliquis) 10 mg PO BID [facility] Last Admin: 06/01/16 17:22 Dose: 10 mg Aspirin (Aspirin Chewable) 81 mg PO DAILY [facility] Last Admin: 06/01/16 09:20 Dose: 81 mg Docusate Sodium (Colace) 100 mg PO BID [facility] Last Admin: 06/01/16 17:23 Dose: 100 mg Famotidine (Pepcid) 20 mg PO DAILY [facility] Last Admin: 06/01/16 09:20 Dose: 20 mg Cefepime HCl (Maxipime Iv 1 Gm Premix) 50 mls @ 100 mls/hr IVPB Q12 [facility] Last Admin: 06/01/16 21:25 Dose: 100 mls/hr Aztreonam 1 gm/ Sodium (Chloride) 100 mls @ 100 mls/hr IVPB Q8H [facility] Last Admin: 06/02/16 00:57 Dose: 100 mls/hr Insulin Aspart (Novolog) 12 unit SC ACTID [facility] Last Admin: 06/01/16 17:22 Dose: 12 unit Insulin Detemir (Levemir) 30 unit SC Q12 [facility] Last Admin: 06/01/16 09:20 Dose: 30 unit Insulin Human Regular (Novolin R) 0 unit SC ACHS [facility] PRN Reason: Protocol Last Admin: 06/01/16 21:26 Dose: Not Given Montelukast Sodium (Singulair) 10 mg PO HS [facility] Last Admin: 06/01/16 21:25 Dose: 10 mg Morphine Sulfate (Morphine) 4 mg IVP Q3 PRN PRN Reason: Pain, moderate (4-7) Last Admin: 06/01/16 11:11 Dose: 4 mg Oxycodone/Acetaminophen (Percocet 5/325 Mg Tab) 1 tab PO Q4H PRN PRN Reason: Pain, moderate (4-7) Stop: 06/03/16 10:06 Last Admin: 06/02/16 02:44 Dose: 1 tab Fluticasone/Salmeterol (Advair Diskus 250/50) 2 puff IH RQ12 [facility] Last Admin: 06/01/16 19:51 Dose: 2 puff - Labs Labs: 06/01/16 07:05 06/01/16 07:05 PT 13.9 SECONDS (9.7-12.2) H 05/27/16 09:38 INR 1.2 05/27/16 09:38 APTT 65 SECONDS (21-34) H 05/29/16 10:50 - Constitutional Appears: Non-toxic, No Acute Distress - Head Exam Head Exam: ATRAUMATIC, NORMAL INSPECTION - Eye Exam Eye Exam: EOMI, Normal appearance, PERRL Pupil Exam: NORMAL ACCOMODATION - ENT Exam ENT Exam: Mucous Membranes Moist - Neck Exam Neck Exam: Full ROM - Respiratory Exam Respiratory Exam: Clear to Ausculation Bilateral, NORMAL BREATHING PATTERN. absent: Accessory Muscle Use, Respiratory Distress - Cardiovascular Exam Cardiovascular Exam: REGULAR RHYTHM, +S1, +S2 - Extremities Exam Extremities Exam: Normal Inspection, Pedal Edema. absent: Calf Tenderness, Full ROM Additional comments: right lower extremity erythematous, warm to touch and diffusely tender to palpation. swelling noted from foot to hip --> all improving - Back Exam Back Exam: NORMAL INSPECTION. 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 Will reach out to surgery (Dr. Ortega) and see if patient is stable for thrombolysis. Patient's renal function improving. Cr down to 1.5 - still not a candidate for surgery Eliquis 10mg PO BID for 7 days (finish on 06/04) then start 5mg PO BID on 06/05 Oxycodone 2-mg PO Q12 percocet 1 tab PO Q4 prn moderate pain - Continue to monitor labs - Elevate leg 05/28: Dr. Cornejo consulted- recommend starting eliquis. will send thrombophilia workup - likely secondary to known DVT vs cellulitis - Pain, erythema and swelling - afebrile, but admits to chills/night sweats - Leukocytosis with bandemia secondary to cellulitis vs steroid use Diagnostic studies - Art duplex study negative 05/25 - Repeat venous doppler 05/26 - shows known clot that extends at least to iliac vein on right Consults - Vascular surgery (Jordan) - would recommend thrombolysis but will hold for elevated CR, will continue to follow - ID (Salma) - recommends continuing Zosyn and adding Azactam. Also to get echo and CT abd pelvis. 05/27- added flagyl - Procalcitonin - 31.81 Bacteremia - improved Aztreonam 1gm IVPB Q8 (started 05/26) Cefepime 1gm IVPB daily (started 05/26) WBC decreased to 11 ID (Salma) consulted - help appreciated B/C 05/27 - negative Abd CT: bilateral inguinal lymphadenopathy, right greater than left. cirrhotic contour of liver. cholelithiasis. possible infiltrate in lungs- bases Abd US: diffuse fatty infiltration of liver. cholelithiasis 05/28: WBC decreased to 29. Urine out put is ok, non febrile, and on Zosyn, Azactam, and recently placed on IV flagyl as well. - Blood cx (05/25) - gram neg rods - Afebrile Acute renal failure on Chronic Kidney disease with Nephrotic Syndrome - Currently on slow IVF, monitor renal function. Patient in previous time admissions has had a lot of renal problems and at one point needed HD. Cr today 1.5 improving - Nephro (Jf) consulted - help appreciated, f/u recs - Nephrotic syndrome, will need small ARB dose when can tolerate - Cr 1.5 on admission - Gently IVF hydration considering hx of HF. NS at 75 cc/hr Leukocytosis - WBC = 11.7 decreased from 18.9, greatly improving - Abx as above - monitor for fever - AM labs COPD/asthma - Duonebs 3ml INH q6h [facility] - Home Advair - home Singulair 10mg PO HS Biventricular heart failure - 01/2016 ECHO- LV EF 60-65%, mild pulmonary HTN (see full report) - repeat echo pending - EF 55-60% mild pulm hten (please see full report) - Evaluated by Dr Rodriguez on last admission for NSTEMI - home lasix - held for elevated Cr DM - steroid treatment completed - A1C 11.0 - Levemir U 30 SC Q12 - Novolog 12 U ACTID - ISS HTN - Continue home meds - Monitor vitals q4h and adjust as needed CAD - hx NSTEMI - Crestor 20mg PO HS Prophylactic measures - SCDs contraindicated due to DVT - Eliquis 10mg PO BID - Pepcid 20mg PO daily - NS at 50 cc/hour - Heart healthy/diabetic diet - PT/OT <Ady Davidson - Last Filed: 07/01/16 16:02> Objective - Vital Signs/Intake and Output Vital Signs (last 24 hours): Temp Pulse Resp BP Pulse Ox 99.4 F 92 H 17 124/84 98 06/24/16 18:00 06/24/16 18:00 06/24/16 06:00 06/24/16 10:16 06/23/16 22:00 - Labs Labs: 06/24/16 06:31 06/24/16 06:31 PT 14.2 SECONDS (9.7-12.2) H 06/19/16 09:51 INR 1.3 06/19/16 09:51 APTT 63 SECONDS (21-34) H 06/19/16 09:51 Attending/Attestation - Attestation I have personally seen and examined this patient.: Yes I have fully participated in the care of the patient.: Yes I have reviewed all pertinent clinical information, including history, physical exam and plan: Yes Notes (Text): Patient seen and examined with the resident. Agree with the residents evaluation, assessment and plan. Thrombosis of the R iliac and common femoral vein mild reduction of the venous return Right lower extremity swelling/pain Per ID patient has post phelibitis swelling. Will reach out to surgery (Dr. Ortega) and see if patient is stable for thrombolysis. Patient's renal function improving. Cr down to 1.5 - still not a candidate for surgery Eliquis 10mg PO BID for 7 days (finish on 06/04) then start 5mg PO BID on 06/05 Oxycodone 2-mg PO Q12 percocet 1 tab PO Q4 prn moderate pain - Continue to monitor labs - Elevate leg 05/28: Dr. Cornejo consulted- recommend starting eliquis. will send thrombophilia workup - likely secondary to known DVT vs cellulitis - Pain, erythema and swelling - afebrile, but admits to chills/night sweats - Leukocytosis with bandemia secondary to cellulitis vs steroid use Diagnostic studies - Art duplex study negative 05/25 - Repeat venous doppler 05/26 - shows known clot that extends at least to iliac vein on right Consults - Vascular surgery (Jordan) - would recommend thrombolysis but will hold for elevated CR, will continue to follow - ID (Salma) - recommends continuing Zosyn and adding Azactam. Also to get echo and CT abd pelvis. 05/27- added flagyl - Procalcitonin - 31.81 Bacteremia - improved Aztreonam 1gm IVPB Q8 (started 05/26) Cefepime 1gm IVPB daily (started 05/26) WBC decreased to 11 ID (Salma) consulted - help appreciated B/C 05/27 - negative Abd CT: bilateral inguinal lymphadenopathy, right greater than left. cirrhotic contour of liver. cholelithiasis. possible infiltrate in lungs- bases Abd US: diffuse fatty infiltration of liver. cholelithiasis 05/28: WBC decreased to 29. Urine out put is ok, non febrile, and on Zosyn, Azactam, and recently placed on IV flagyl as well. - Blood cx (05/25) - gram neg rods - Afebrile Acute renal failure on Chronic Kidney disease with Nephrotic Syndrome - Currently on slow IVF, monitor renal function. Patient in previous time admissions has had a lot of renal problems and at one point needed HD. Cr today 1.5 improving - Nephro Arnulfo) consulted - help appreciated, f/u recs - Nephrotic syndrome, will need small ARB dose when can tolerate - Cr 1.5 on admission - Gently IVF hydration considering hx of HF. NS at 75 cc/hr
[2016-06-02 07:33] LABS: CHLORIDE 98 mmol/L (98-107); POTASSIUM 4.6 mmol/L (3.6-5.2); SODIUM 134 mmol/L (132-148)
[2016-06-02 07:35] LABS: GFR AFRICAN-AMERICAN > 60
[2016-06-02 07:36] LABS: AST/SGOT 43 U/L (17-59); CARBON DIOXIDE 26 mmol/L (22-30)
[2016-06-02 07:37] LABS: ALB/GLOB RATIO 0.9 (1.0-2.1); ALKALINE PHOSPHATASE 313 U/L (38-126); ALT/SGPT 34 U/L (21-72); BLOOD UREA NITROGEN 44 mg/dL (9-20); CALCIUM 7.9 mg/dl (8.6-10.4); GLUCOSE,RANDOM 205 mg/dL (75-110); MAGNESIUM 1.8 mg/dL (1.6-2.3); PHOSPHOROUS 3.5 mg/dL (2.5-4.5); TOTAL PROTEIN 5.7 g/dL (6.3-8.3)
[2016-06-02] MEDS: Fluticasone-Salmeterol 250-50mcg Diskus IH SCH ×2 (07:51→19:34)
[2016-06-02] MEDS: (Novolog) Insulin Aspart, Recombinant 100 u/ml 10 ml vial SC SCH ×3 (08:00→17:01)
[2016-06-02] MEDS: (Novolin R) Insulin Human Regular 100 units/ml vial SC SCH ×4 (08:00→21:26)
--- NOTE | 2016-06-02 10:02 | CP.PCM.PN ---
Subjective - Date & Time of Evaluation Date of Evaluation: 06/02/16 Time of Evaluation: 10:00 - Subjective Subjective: Feels better Right LE tender but better Anticardiolipin+ for IgG Urine protein excretion around 16 gms- confirms nephrotic syndrome creat stable at 1.5 Objective - Vital Signs/Intake and Output Vital Signs (last 24 hours): Temp Pulse Resp BP Pulse Ox 98.9 F 109 H 20 161/92 H 98 06/02/16 08:39 06/02/16 08:39 06/02/16 08:39 06/02/16 08:39 06/02/16 08:39 Intake and Output: 06/02/16 06/02/16 06:59 18:59 Output Total 300 Balance -300 - Medications Medications: Current Medications Apixaban (Eliquis) 10 mg PO BID [facility] Last Admin: 06/01/16 17:22 Dose: 10 mg Aspirin (Aspirin Chewable) 81 mg PO DAILY [facility] Last Admin: 06/01/16 09:20 Dose: 81 mg Docusate Sodium (Colace) 100 mg PO BID [facility] Last Admin: 06/01/16 17:23 Dose: 100 mg Famotidine (Pepcid) 20 mg PO DAILY [facility] Last Admin: 06/01/16 09:20 Dose: 20 mg Cefepime HCl (Maxipime Iv 1 Gm Premix) 50 mls @ 100 mls/hr IVPB Q12 [facility] Last Admin: 06/01/16 21:25 Dose: 100 mls/hr Aztreonam 1 gm/ Sodium (Chloride) 100 mls @ 100 mls/hr IVPB Q8H [facility] Last Admin: 06/02/16 08:11 Dose: 100 mls/hr Insulin Aspart (Novolog) 12 unit SC ACTID [facility] Last Admin: 06/02/16 08:00 Dose: 12 unit Insulin Detemir (Levemir) 30 unit SC Q12 [facility] Last Admin: 06/01/16 09:20 Dose: 30 unit Insulin Human Regular (Novolin R) 0 unit SC ACHS [facility] PRN Reason: Protocol Last Admin: 06/02/16 08:00 Dose: 1 unit Montelukast Sodium (Singulair) 10 mg PO HS [facility] Last Admin: 06/01/16 21:25 Dose: 10 mg Morphine Sulfate (Morphine) 4 mg IVP Q3 PRN PRN Reason: Pain, moderate (4-7) Last Admin: 06/01/16 11:11 Dose: 4 mg Oxycodone/Acetaminophen (Percocet 5/325 Mg Tab) 1 tab PO Q4H PRN PRN Reason: Pain, moderate (4-7) Stop: 06/03/16 10:06 Last Admin: 06/02/16 08:11 Dose: 1 tab Fluticasone/Salmeterol (Advair Diskus 250/50) 2 puff IH RQ12 [facility] Last Admin: 06/02/16 07:51 Dose: 2 puff - Labs Labs: 06/02/16 06:46 06/02/16 06:46 PT 13.9 SECONDS (9.7-12.2) H 05/27/16 09:38 INR 1.2 05/27/16 09:38 APTT 65 SECONDS (21-34) H 05/29/16 10:50 - Constitutional Appears: No Acute Distress, Chronically Ill - Head Exam Head Exam: ATRAUMATIC, NORMAL INSPECTION - Eye Exam Eye Exam: EOMI, Normal appearance - Neck Exam Neck Exam: Normal Inspection. absent: Tenderness - Respiratory Exam Respiratory Exam: Clear to Ausculation Bilateral, NORMAL BREATHING PATTERN - Cardiovascular Exam Cardiovascular Exam: REGULAR RHYTHM, +S1 - GI/Abdominal Exam GI & Abdominal Exam: Soft. absent: Tenderness - Extremities Exam Extremities Exam: Pedal Edema, Tenderness - Neurological Exam Neurological Exam: Alert, CN II-XII Intact - Skin Skin Exam: Dry, Warm Assessment and Plan (1) Acute renal failure Status: Resolved (2) Cellulitis Status: Acute (3) Chronic kidney disease, stage 3 (moderate) Status: Acute (4) Deep venous thrombosis of lower extremity Status: Acute (5) Proteinuria due to type 2 diabetes mellitus Status: Acute (6) Type 2 diabetes mellitus with diabetic nephropathy Status: Acute (7) Nephrotic syndrome Status: Acute - Assessment and Plan (Free Text) Plan: Will need ongoing anticoagulation When stable will need small dose ARB agent
[2016-06-02] MEDS: Insulin Detemir 100 units/ml Vial (Levemir) SC SCH ×2 (10:14→21:36)
[2016-06-02] MEDS: Cefepime IV 1 gm in Dextrose 50 ML IVPB SCH ×2 (10:14→21:37)
[2016-06-02] MEDS: oxyCODONE 20 mg ER Tab (oxyCONTIN) PO SCH ×2 (10:16→21:35)
[2016-06-02 11:09] LABS: BASOPHIL 1 % (0-2); EOSINOPHIL 10 % (0-4); METAMYELOCYTE 2 % (0-0); NEUTROPHIL 62 % (50-75); TOTAL CELLS COUNTED 100
[2016-06-02 11:10] LABS: LARGE PLATELETS PRESENT
--- NOTE | 2016-06-02 20:39 | CP.PCM.PN ---
Subjective - Date & Time of Evaluation Date of Evaluation: 06/02/16 Time of Evaluation: 18:15 - Subjective Subjective: Cont. to have leg swelling but feels pain is improved Objective - Vital Signs/Intake and Output Vital Signs (last 24 hours): Temp Pulse Resp BP Pulse Ox 98.0 F 96 H 20 153/80 H 96 06/02/16 15:05 06/02/16 16:00 06/02/16 15:05 06/02/16 15:05 06/02/16 15:05 - Medications Medications: Current Medications Apixaban (Eliquis) 10 mg PO BID [facility] Last Admin: 06/02/16 17:47 Dose: 10 mg Aspirin (Aspirin Chewable) 81 mg PO DAILY [facility] Last Admin: 06/02/16 10:13 Dose: 81 mg Docusate Sodium (Colace) 100 mg PO BID [facility] Last Admin: 06/02/16 17:50 Dose: 100 mg Famotidine (Pepcid) 20 mg PO DAILY [facility] Last Admin: 06/02/16 10:13 Dose: 20 mg Cefepime HCl (Maxipime Iv 1 Gm Premix) 50 mls @ 100 mls/hr IVPB Q12 [facility] Last Admin: 06/02/16 10:14 Dose: 100 mls/hr Aztreonam 1 gm/ Sodium (Chloride) 100 mls @ 100 mls/hr IVPB Q8H [facility] Last Admin: 06/02/16 17:01 Dose: 100 mls/hr Insulin Aspart (Novolog) 12 unit SC ACTID [facility] Last Admin: 06/02/16 17:01 Dose: 12 unit Insulin Detemir (Levemir) 30 unit SC Q12 [facility] Last Admin: 06/02/16 10:14 Dose: 30 unit Insulin Human Regular (Novolin R) 0 unit SC ACHS [facility] PRN Reason: Protocol Last Admin: 06/02/16 17:02 Dose: 1 unit Montelukast Sodium (Singulair) 10 mg PO HS [facility] Last Admin: 06/01/16 21:25 Dose: 10 mg Oxycodone HCl (Oxycontin Extended Release Tab) 20 mg PO Q12 [facility] Stop: 06/05/16 10:16 Last Admin: 06/02/16 10:16 Dose: 20 mg Oxycodone/Acetaminophen (Percocet 5/325 Mg Tab) 1 tab PO Q4H PRN PRN Reason: Pain, moderate (4-7) Stop: 06/03/16 10:06 Last Admin: 06/02/16 17:00 Dose: 1 tab Fluticasone/Salmeterol (Advair Diskus 250/50) 2 puff IH RQ12 [facility] Last Admin: 06/02/16 19:34 Dose: 2 puff - Labs Labs: 06/02/16 06:46 06/02/16 06:46 PT 13.9 SECONDS (9.7-12.2) H 05/27/16 09:38 INR 1.2 05/27/16 09:38 APTT 65 SECONDS (21-34) H 05/29/16 10:50 - Head Exam Head Exam: ATRAUMATIC - Eye Exam Eye Exam: Normal appearance - ENT Exam ENT Exam: Mucous Membranes Dry - Respiratory Exam Respiratory Exam: NORMAL BREATHING PATTERN - Cardiovascular Exam Cardiovascular Exam: +S1, +S2 - GI/Abdominal Exam GI & Abdominal Exam: Normal Bowel Sounds - Extremities Exam Additional comments: RLE swelling and erythema - Neurological Exam Neurological Exam: Oriented x3 - Psychiatric Exam Psychiatric exam: Normal Affect, Normal Mood - Skin Skin Exam: Warm Assessment and Plan (1) Deep venous thrombosis of lower extremity Assessment & Plan: 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
--- NOTE | 2016-06-02 23:05 | PN ---
DATE: 06/02/2016 SUBJECTIVE: The patient remains with the right leg swelling. He was putting his foot down as he wan anthony to go to the bathroom and it appeared extremely swollen, red, and with vesicle blisters on the fo ot, and discolored. He denied any shortness of breath, but he gets dyspneic on mild exertion. He tao s morbid obesity. PHYSICAL EXAMINATION: VITAL SIGNS: Temperature 98, pulse 96, blood pressure 153/80, respirations are 20. HEENT: Head is atraumatic, normocephalic. NECK: Supple. LUNGS: Clear. No crackles or rales present. HEART: S1, S2 is tachycardic. ABDOMEN: Flabby, nontender. EXTREMITIES: Right leg and thigh both remain edematous, swollen, with mild reddish hue to it. LABORATORY DATA: White count today was 11.7, hemoglobin 13.9, hematocrit 41.5, platelet count is 133 , bands are still 6 and patient's urine culture is negative. Blood cultures, ow on repeat are negat milla. He had blood cultures with Serratia positive, on 05/25. It may be due to the foot infection, p robably. He is 8 days into the treatment. We will continue the same antibiotics for now until the foot swelli ng and the thigh and the right leg swelling decrease and we will follow with the team. His creatinin e has come down now to 1.5, BUN is 44, alkaline phosphatase is increased to 313, total protein is 5.7 . AST, ALT remains unremarkable. Rest of the labs total bilirubin is 1. We will follow. Joshua Marsh MD cc: [id number] TT: 06/02/2016 23:04:57 Confirmation # [id number] Dictation # [id number] ln
[2016-06-03] MEDS: Aztreonam 1 GM in Sodium Chloride 0.9% 100 ML IVPB SCH ×3 (00:39→17:30)
[2016-06-03] MEDS: Oxycodone/Acetaminophen 5/325 mg Tab PO PRN ×2 (00:44→07:58)
[2016-06-03 07:00] LABS: ALB/GLOB RATIO 0.9 (1.0-2.1); BILIRUBIN,TOTAL 0.8 mg/dL (0.2-1.3); TOTAL PROTEIN 5.7 g/dL (6.3-8.3)
[2016-06-03 07:01] LABS: MAGNESIUM 1.7 mg/dL (1.6-2.3); PHOSPHOROUS 3.6 mg/dL (2.5-4.5)
[2016-06-03 07:21] LABS: BASO # 0.1 K/uL (0.0-0.2); BASO % 0.8 % (0.0-2.0); EOS # 0.7 K/uL (0.0-0.7); EOS % 5.6 % (0.0-4.0); HEMATOCRIT 41.6 % (35.0-51.0); LYMPH # 1.4 K/uL (1.0-4.3); LYMPH % 10.6 % (20.0-40.0); MEAN CELL VOLUME 88.5 fL (80.0-94.0); MEAN CORPUSCULAR HEMOGLOBIN 28.5 pg (27.0-31.0); MEAN CORPUSCULAR HGB CONC 32.2 g/dL (33.0-37.0); MEAN PLATELET VOLUME 10.8 fL (7.2-11.7); MONO # 2.2 K/uL (0.0-0.8); MONO % 17.2 % (0.0-10.0); NRBC % 0.2 % (0.0-2.0); RED CELL DISTRIBUTION WIDTH 16.5 % (11.5-14.5); WHITE BLOOD COUNT 12.8 K/uL (4.8-10.8)
[2016-06-03] MEDS: (Novolin R) Insulin Human Regular 100 units/ml vial SC SCH ×4 (07:30→21:45)
[2016-06-03] MEDS: Fluticasone-Salmeterol 250-50mcg Diskus IH SCH (07:48)
[2016-06-03] MEDS: (Novolog) Insulin Aspart, Recombinant 100 u/ml 10 ml vial SC SCH ×3 (07:54→17:30)
[2016-06-03] MEDS: Insulin Detemir 100 units/ml Vial (Levemir) SC SCH ×2 (09:37→21:41)
[2016-06-03] MEDS: Cefepime IV 1 gm in Dextrose 50 ML IVPB SCH ×2 (10:46→21:39)
[2016-06-03] MEDS: oxyCODONE 20 mg ER Tab (oxyCONTIN) PO SCH ×2 (11:23→21:41)
--- NOTE | 2016-06-03 11:50 | CP.PCM.PN ---
<Kimmy Madison - Last Filed: 06/03/16 14:58> Subjective - Date & Time of Evaluation Date of Evaluation: 06/03/16 Time of Evaluation: 07:10 - Subjective Subjective: PGY1 on Dr. Davidson's service: Patient seen and examined. Patient reports that the pain in his R leg has decreased and is controlled with pain medications. He denied chest pain, denied palpitations, denied abdominal pain, denied urinary complaints. Denied headache , denied fever, denied chills, denied headache. He denied shortness of breath. No acute events overnight and no new complaints. Dr. Ortega plans to do thrombolysis on Monday. Objective - Vital Signs/Intake and Output Vital Signs (last 24 hours): Temp Pulse Resp BP Pulse Ox 99.2 F 110 H 18 112/73 94 L 06/03/16 07:50 06/03/16 08:00 06/03/16 07:50 06/03/16 07:50 06/03/16 07:50 Intake and Output: 06/03/16 06/03/16 06:59 18:59 Output Total 400 Balance -400 - Medications Medications: Current Medications Apixaban (Eliquis) 10 mg PO BID [facility] Last Admin: 06/03/16 09:37 Dose: 10 mg Aspirin (Aspirin Chewable) 81 mg PO DAILY [facility] Last Admin: 06/03/16 09:37 Dose: 81 mg Docusate Sodium (Colace) 100 mg PO BID [facility] Last Admin: 06/03/16 09:37 Dose: 100 mg Famotidine (Pepcid) 20 mg PO DAILY [facility] Last Admin: 06/03/16 09:37 Dose: 20 mg Cefepime HCl (Maxipime Iv 1 Gm Premix) 50 mls @ 100 mls/hr IVPB Q12 [facility] Last Admin: 06/03/16 10:46 Dose: 100 mls/hr Aztreonam 1 gm/ Sodium (Chloride) 100 mls @ 100 mls/hr IVPB Q8H [facility] Last Admin: 06/03/16 09:36 Dose: 100 mls/hr Insulin Aspart (Novolog) 12 unit SC ACTID [facility] Last Admin: 06/03/16 07:54 Dose: 12 unit Insulin Detemir (Levemir) 30 unit SC Q12 [facility] Last Admin: 06/03/16 09:37 Dose: 30 unit Insulin Human Regular (Novolin R) 0 unit SC ACHS [facility] PRN Reason: Protocol Last Admin: 06/03/16 07:30 Dose: Not Given Montelukast Sodium (Singulair) 10 mg PO HS [facility] Last Admin: 06/02/16 21:36 Dose: 10 mg Oxycodone HCl (Oxycontin Extended Release Tab) 20 mg PO Q12 [facility] Stop: 06/05/16 10:16 Last Admin: 06/03/16 11:23 Dose: 20 mg Fluticasone/Salmeterol (Advair Diskus 250/50) 2 puff IH RQ12 [facility] Last Admin: 06/03/16 07:48 Dose: 2 puff - Labs Labs: 06/03/16 06:40 06/03/16 06:40 PT 13.9 SECONDS (9.7-12.2) H 05/27/16 09:38 INR 1.2 05/27/16 09:38 APTT 65 SECONDS (21-34) H 05/29/16 10:50 - Constitutional Appears: Non-toxic, No Acute Distress - Head Exam Head Exam: ATRAUMATIC, NORMAL INSPECTION - Eye Exam Eye Exam: EOMI, Normal appearance Pupil Exam: NORMAL ACCOMODATION - ENT Exam ENT Exam: Mucous Membranes Moist - Respiratory Exam Respiratory Exam: Clear to Ausculation Bilateral, NORMAL BREATHING PATTERN. absent: Respiratory Distress Assessment and Plan - Assessment and Plan (Free Text) Assessment: Thrombosis of the R iliac and common femoral vein mild reduction of the venous return Right lower extremity swelling/pain Per ID patient has post phelibitis swelling. Will reach out to surgery (Dr. Ortega) and see if patient is stable for thrombolysis. Patient's renal function improving. Cr down to 1.[address] Ortega will plan for thrombolysis surgery on Tuesday 06/06 allowing for hydration and mucomyst Eliquis 10mg PO BID for 7 days (finish on 06/04) then start 5mg PO BID on 06/05 Oxycodone 2-mg PO Q12 percocet 1 tab PO Q4 prn moderate pain - Continue to monitor labs - Elevate leg 05/28: Dr. Cornejo consulted- recommend starting eliquis. will send thrombophilia workup - likely secondary to known DVT vs cellulitis - Pain, erythema and swelling - afebrile, but admits to chills/night sweats - Leukocytosis with bandemia secondary to cellulitis vs steroid use Diagnostic studies - Art duplex study negative 05/25 - Repeat venous doppler 05/26 - shows known clot that extends at least to iliac vein on right Consults - Vascular surgery ([place]) - would recommend thrombolysis but will hold for elevated CR, will continue to follow - ID (Salma) - recommends continuing Zosyn and adding Azactam. Also to get echo and CT abd pelvis. 05/27- added flagyl - Procalcitonin - 31.81 Bacteremia - improved Aztreonam 1gm IVPB Q8 hours (started 05/26) Cefepime 1gm IVPB Q12 hours (started 05/26) WBC decreased to 12.8 ID (Salma) consulted - help appreciated B/C 05/27 - negative Abd CT: bilateral inguinal lymphadenopathy, right greater than left. cirrhotic contour of liver. cholelithiasis. possible infiltrate in lungs- bases Abd US: diffuse fatty infiltration of liver. cholelithiasis 05/28: WBC decreased to 29. Urine out put is ok, non febrile, and on Zosyn, Azactam, and recently placed on IV flagyl as well. - Blood cx (05/25) - gram neg rods - Afebrile Acute renal failure on Chronic Kidney disease with Nephrotic Syndrome - Currently on slow IVF, monitor renal function. Patient in previous time admissions has had a lot of renal problems and at one point needed HD. Cr today 1.7 improving - Nephro (Jf) consulted - help appreciated, f/u recs - Nephrotic syndrome, will need small ARB dose when can tolerate, Anticardiolipin+ for IgG - Cr 1.5 on admission - Gently IVF hydration considering hx of HF. NS at 75 cc/hr Leukocytosis - WBC = 12.8 stable - Afebrile - Abx as above - monitor for fever - AM labs COPD/asthma - Duonebs 3ml INH q6h [facility] - Home Advair - home Singulair 10mg PO HS Biventricular heart failure - 01/2016 ECHO- LV EF 60-65%, mild pulmonary HTN (see full report) - repeat echo pending - EF 55-60% mild pulm hten (please see full report) - Evaluated by Dr Rodriguez on last admission for NSTEMI - home lasix - held for elevated Cr DM - steroid treatment completed - A1C 11.0 - Levemir U 30 SC Q12 - Novolog 12 U ACTID - ISS HTN - Continue home meds - Monitor vitals q4h and adjust as needed CAD - hx NSTEMI - Crestor 20mg PO HS Prophylactic measures - SCDs contraindicated due to DVT - Eliquis 10mg PO BID - Pepcid 20mg PO daily - NS at 50 cc/hour - Heart healthy/diabetic diet - PT/OT <Ady Davidson - Last Filed: 07/07/16 17:18> Objective - Vital Signs/Intake and Output Vital Signs (last 24 hours): Temp Pulse Resp BP Pulse Ox 99.4 F 92 H 17 124/84 98 06/24/16 18:00 06/24/16 18:00 06/24/16 06:00 06/24/16 10:16 06/23/16 22:00 - Labs Labs: 06/24/16 06:31 06/24/16 06:31 PT 14.2 SECONDS (9.7-12.2) H 06/19/16 09:51 INR 1.3 06/19/16 09:51 APTT 63 SECONDS (21-34) H 06/19/16 09:51 Attending/Attestation - Attestation I have personally seen and examined this patient.: Yes I have fully participated in the care of the patient.: Yes I have reviewed all pertinent clinical information, including history, physical exam and plan: Yes Notes (Text): Patient seen and examined with the resident. Agree with the resident's evaluation, assessment and plan. Thrombosis of the R iliac and common femoral vein mild reduction of the venous return Right lower extremity swelling/pain Per ID patient has post phelibitis swelling. Will reach out to surgery (Dr. Ortega) and see if patient is stable for thrombolysis. Patient's renal function improving. Cr down to 1.[address] Ortega will plan for thrombolysis surgery on Tuesday 06/06 allowing for hydration and mucomyst Eliquis 10mg PO BID for 7 days (finish on 06/04) then start 5mg PO BID on 06/05 Oxycodone 2-mg PO Q12 percocet 1 tab PO Q4 prn moderate pain - Continue to monitor labs - Elevate leg 05/28: Dr. Cornejo consulted- recommend starting eliquis. will send thrombophilia workup - likely secondary to known DVT vs cellulitis - Pain, erythema and swelling - afebrile, but admits to chills/night sweats - Leukocytosis with bandemia secondary to cellulitis vs steroid use Diagnostic studies - Art duplex study negative 05/25 - Repeat venous doppler 05/26 - shows known clot that extends at least to iliac vein on right Consults - Vascular surgery ([place]) - would recommend thrombolysis but will hold for elevated CR, will continue to follow - ID (Salma) - recommends continuing Zosyn and adding Azactam. Also to get echo and CT abd pelvis. 05/27- added flagyl - Procalcitonin - 31.81 Bacteremia - improved Aztreonam 1gm IVPB Q8 hours (started 05/26) Cefepime 1gm IVPB Q12 hours (started 05/26) WBC decreased to 12.8 ID (Salma) consulted - help appreciated B/C 05/27 - negative Abd CT: bilateral inguinal lymphadenopathy, right greater than left. cirrhotic contour of liver. cholelithiasis. possible infiltrate in lungs- bases Abd US: diffuse fatty infiltration of liver. cholelithiasis 05/28: WBC decreased to 29. Urine out put is ok, non febrile, and on Zosyn, Azactam, and recently placed on IV flagyl as well. - Blood cx (05/25) - gram neg rods - Afebrile Acute renal failure on Chronic Kidney disease with Nephrotic Syndrome - Currently on slow IVF, monitor renal function. Patient in previous time admissions has had a lot of renal problems and at one point needed HD. Cr today 1.7 improving - Nephro (Jf) consulted - help appreciated, f/u recs - Nephrotic syndrome, will need small ARB dose when can tolerate, Anticardiolipin+ for IgG - Cr 1.5 on admission - Gently IVF hydration considering hx of HF. NS at 75 cc/hr
--- NOTE | 2016-06-03 13:41 | CP.PCM.PN ---
Subjective - Date & Time of Evaluation Date of Evaluation: 06/03/16 Time of Evaluation: 13:36 - Subjective Subjective: will plan thrombolysis on leg on monday allowing for hydration and mucomyst pluses , minuses and risks particularly renal failure and bleeding Objective - Vital Signs/Intake and Output Vital Signs (last 24 hours): Temp Pulse Resp BP Pulse Ox 99.2 F 110 H 18 112/73 94 L 06/03/16 07:50 06/03/16 08:00 06/03/16 07:50 06/03/16 07:50 06/03/16 07:50 Intake and Output: 06/03/16 06/03/16 06:59 18:59 Output Total 400 Balance -400 - Medications Medications: Current Medications Apixaban (Eliquis) 10 mg PO BID [facility] Last Admin: 06/03/16 09:37 Dose: 10 mg Aspirin (Aspirin Chewable) 81 mg PO DAILY [facility] Last Admin: 06/03/16 09:37 Dose: 81 mg Docusate Sodium (Colace) 100 mg PO BID [facility] Last Admin: 06/03/16 09:37 Dose: 100 mg Famotidine (Pepcid) 20 mg PO DAILY [facility] Last Admin: 06/03/16 09:37 Dose: 20 mg Cefepime HCl (Maxipime Iv 1 Gm Premix) 50 mls @ 100 mls/hr IVPB Q12 [facility] Last Admin: 06/03/16 10:46 Dose: 100 mls/hr Aztreonam 1 gm/ Sodium (Chloride) 100 mls @ 100 mls/hr IVPB Q8H [facility] Last Admin: 06/03/16 09:36 Dose: 100 mls/hr Insulin Aspart (Novolog) 12 unit SC ACTID [facility] Last Admin: 06/03/16 11:55 Dose: Not Given Insulin Detemir (Levemir) 30 unit SC Q12 [facility] Last Admin: 06/03/16 09:37 Dose: 30 unit Insulin Human Regular (Novolin R) 0 unit SC ACHS [facility] PRN Reason: Protocol Last Admin: 06/03/16 11:54 Dose: Not Given Montelukast Sodium (Singulair) 10 mg PO HS [facility] Last Admin: 06/02/16 21:36 Dose: 10 mg Oxycodone HCl (Oxycontin Extended Release Tab) 20 mg PO Q12 [facility] Stop: 06/05/16 10:16 Last Admin: 06/03/16 11:23 Dose: 20 mg Fluticasone/Salmeterol (Advair Diskus 250/50) 2 puff IH RQ12 [facility] Last Admin: 06/03/16 07:48 Dose: 2 puff - Labs Labs: 06/03/16 06:40 06/03/16 06:40 PT 13.9 SECONDS (9.7-12.2) H 05/27/16 09:38 INR 1.2 05/27/16 09:38 APTT 65 SECONDS (21-34) H 05/29/16 10:50
--- NOTE | 2016-06-03 14:32 | CP.PCM.PN ---
Subjective - Date & Time of Evaluation Date of Evaluation: 06/03/16 Time of Evaluation: 14:30 - Subjective Subjective: Feels better Awaiting thrombolysis surgery on 06/06 BP controlled Renal function stable- creat 1.7 No n,v, SOB, CPs, dysuria Still with right Le swelling and pains Agree that patient should remain on anticoagulation for the forseeable future Objective - Vital Signs/Intake and Output Vital Signs (last 24 hours): Temp Pulse Resp BP Pulse Ox 99.2 F 110 H 18 112/73 94 L 06/03/16 07:50 06/03/16 08:00 06/03/16 07:50 06/03/16 07:50 06/03/16 07:50 Intake and Output: 06/03/16 06/03/16 06:59 18:59 Output Total 400 Balance -400 - Medications Medications: Current Medications Acetylcysteine (Acetylcysteine 20%) 4 ml PO BID [facility] Apixaban (Eliquis) 10 mg PO BID [facility] Last Admin: 06/03/16 09:37 Dose: 10 mg Aspirin (Aspirin Chewable) 81 mg PO DAILY [facility] Last Admin: 06/03/16 09:37 Dose: 81 mg Docusate Sodium (Colace) 100 mg PO BID [facility] Last Admin: 06/03/16 09:37 Dose: 100 mg Famotidine (Pepcid) 20 mg PO DAILY [facility] Last Admin: 06/03/16 09:37 Dose: 20 mg Cefepime HCl (Maxipime Iv 1 Gm Premix) 50 mls @ 100 mls/hr IVPB Q12 [facility] Last Admin: 06/03/16 10:46 Dose: 100 mls/hr Aztreonam 1 gm/ Sodium (Chloride) 100 mls @ 100 mls/hr IVPB Q8H [facility] Last Admin: 06/03/16 09:36 Dose: 100 mls/hr Dextrose/Sodium Chloride (Dextrose 5%/0.45% Ns 1000 Ml) 1,000 mls @ 100 mls/hr IV .Q10H [facility] Insulin Aspart (Novolog) 12 unit SC ACTID [facility] Last Admin: 06/03/16 11:55 Dose: Not Given Insulin Detemir (Levemir) 30 unit SC Q12 [facility] Last Admin: 06/03/16 09:37 Dose: 30 unit Insulin Human Regular (Novolin R) 0 unit SC ACHS [facility] PRN Reason: Protocol Last Admin: 06/03/16 11:54 Dose: Not Given Montelukast Sodium (Singulair) 10 mg PO HS [facility] Last Admin: 06/02/16 21:36 Dose: 10 mg Oxycodone HCl (Oxycontin Extended Release Tab) 20 mg PO Q12 [facility] Stop: 06/05/16 10:16 Last Admin: 06/03/16 11:23 Dose: 20 mg Fluticasone/Salmeterol (Advair Diskus 250/50) 2 puff IH RQ12 [facility] Last Admin: 06/03/16 07:48 Dose: 2 puff - Labs Labs: 06/03/16 06:40 06/03/16 06:40 PT 13.9 SECONDS (9.7-12.2) H 05/27/16 09:38 INR 1.2 05/27/16 09:38 APTT 65 SECONDS (21-34) H 05/29/16 10:50 - Constitutional Appears: No Acute Distress, Chronically Ill - Head Exam Head Exam: ATRAUMATIC, NORMAL INSPECTION - Eye Exam Eye Exam: EOMI, Normal appearance - Neck Exam Neck Exam: Normal Inspection. absent: Tenderness - Respiratory Exam Respiratory Exam: Rhonchi, NORMAL BREATHING PATTERN - Cardiovascular Exam Cardiovascular Exam: REGULAR RHYTHM, +S1 - GI/Abdominal Exam GI & Abdominal Exam: Soft. absent: Tenderness - Extremities Exam Extremities Exam: Pedal Edema, Tenderness - Neurological Exam Neurological Exam: Alert, CN II-XII Intact - Skin Skin Exam: Dry, Warm Assessment and Plan (1) Acute renal failure Status: Resolved (2) Cellulitis Status: Acute (3) Chronic kidney disease, stage 3 (moderate) Status: Acute (4) Deep venous thrombosis of lower extremity Status: Acute (5) Proteinuria due to type 2 diabetes mellitus Status: Acute (6) Type 2 diabetes mellitus with diabetic nephropathy Status: Acute (7) Nephrotic syndrome Status: Acute - Assessment and Plan (Free Text) Plan: Same meds Await thrombolysis eventually will need BREANA I
[2016-06-04] MEDS: Aztreonam 1 GM in Sodium Chloride 0.9% 100 ML IVPB SCH ×4 (00:58→21:49)
[2016-06-04] MEDS: Acetylcysteine 20% Inhal Soln (4ml) PO SCH ×3 (01:36→18:21)
[2016-06-04 06:38] LABS: BASO # 0.2 K/uL (0.0-0.2); BASO % 1.5 % (0.0-2.0); EOS # 0.7 K/uL (0.0-0.7); EOS % 5.5 % (0.0-4.0); HEMATOCRIT 42.6 % (35.0-51.0); LYMPH # 1.9 K/uL (1.0-4.3); LYMPH % 15.6 % (20.0-40.0); MEAN CELL VOLUME 89.9 fL (80.0-94.0); MEAN CORPUSCULAR HEMOGLOBIN 29.1 pg (27.0-31.0); MEAN CORPUSCULAR HGB CONC 32.4 g/dL (33.0-37.0); MEAN PLATELET VOLUME 10.4 fL (7.2-11.7); MONO % 16.6 % (0.0-10.0); NRBC % 0.2 % (0.0-2.0); RED CELL DISTRIBUTION WIDTH 16.5 % (11.5-14.5); WHITE BLOOD COUNT 12.2 K/uL (4.8-10.8)
[2016-06-04 06:50] LABS: BILIRUBIN,TOTAL 0.5 mg/dL (0.2-1.3)
[2016-06-04 06:51] LABS: ALB/GLOB RATIO 0.8 (1.0-2.1); PHOSPHOROUS 4.5 mg/dL (2.5-4.5); TOTAL PROTEIN 6.4 g/dL (6.3-8.3)
[2016-06-04 06:52] LABS: CALCIUM 7.7 mg/dl (8.6-10.4); MAGNESIUM 1.8 mg/dL (1.6-2.3)
[2016-06-04] MEDS ORDERED: Sod Polystyrene Sulf 15 gm/60 ml Oral Susp PO ONE (08:01)
--- NOTE | 2016-06-04 08:03 | CP.PCM.PN ---
<Gertrude Rg - Last Filed: 06/04/16 09:01> Subjective - Date & Time of Evaluation Date of Evaluation: 06/04/16 Time of Evaluation: 08:50 - Subjective Subjective: Internal medicine progress note for Dr. Davidson- Gertrude Rg, PGY-1 Pt S & E at bedside. Code blue called at 0832 - per nursing patient was unresponsive. Code was run, pt was unresponsive during duration of code, had Vtach until Amiodarone given. ICU contacted, pt to be transferred. Pt currently intubated, no responsive, no sedation received prior to evaluation. Objective - Vital Signs/Intake and Output Vital Signs (last 24 hours): Temp Pulse Resp BP Pulse Ox 99.5 F 109 H 20 129/80 94 L 06/04/16 04:10 06/04/16 00:00 06/03/16 23:30 06/03/16 23:30 06/04/16 04:10 Intake and Output: 06/04/16 06/04/16 06:59 18:59 Intake Total 400 Balance 400 - Medications Medications: Current Medications Acetaminophen (Tylenol 325mg Tab) 650 mg PO Q6 PRN PRN Reason: Fever >100.4 F Last Admin: 06/04/16 00:56 Dose: 650 mg Acetylcysteine (Acetylcysteine 20%) 4 ml PO BID [facility] Last Admin: 06/04/16 01:36 Dose: 4 ml Apixaban (Eliquis) 10 mg PO BID [facility] Last Admin: 06/03/16 21:45 Dose: 10 mg Aspirin (Aspirin Chewable) 81 mg PO DAILY [facility] Last Admin: 06/03/16 09:37 Dose: 81 mg Docusate Sodium (Colace) 100 mg PO BID [facility] Last Admin: 06/03/16 18:04 Dose: 100 mg Famotidine (Pepcid) 20 mg PO DAILY [facility] Last Admin: 06/03/16 09:37 Dose: 20 mg Cefepime HCl (Maxipime Iv 1 Gm Premix) 50 mls @ 100 mls/hr IVPB Q12 [facility] Last Admin: 06/03/16 21:39 Dose: 100 mls/hr Aztreonam 1 gm/ Sodium (Chloride) 100 mls @ 100 mls/hr IVPB Q8H [facility] Last Admin: 06/04/16 00:58 Dose: 100 mls/hr Dextrose/Sodium Chloride (Dextrose 5%/0.45% Ns 1000 Ml) 1,000 mls @ 100 mls/hr IV .Q10H [facility] Insulin Aspart (Novolog) 12 unit SC ACTID [facility] Last Admin: 06/03/16 17:30 Dose: 12 unit Insulin Detemir (Levemir) 30 unit SC Q12 [facility] Last Admin: 06/03/16 21:41 Dose: 30 unit Insulin Human Regular (Novolin R) 0 unit SC ACHS [facility] PRN Reason: Protocol Last Admin: 06/03/16 21:45 Dose: Not Given Montelukast Sodium (Singulair) 10 mg PO HS [facility] Last Admin: 06/03/16 21:41 Dose: 10 mg Oxycodone HCl (Oxycontin Extended Release Tab) 20 mg PO Q12 [facility] Stop: 06/05/16 10:16 Last Admin: 06/03/16 21:41 Dose: 20 mg Fluticasone/Salmeterol (Advair Diskus 250/50) 2 puff IH RQ12 [facility] Last Admin: 06/03/16 07:48 Dose: 2 puff - Labs Labs: 06/04/16 06:15 06/04/16 06:15 PT 13.9 SECONDS (9.7-12.2) H 05/27/16 09:38 INR 1.2 05/27/16 09:38 APTT 65 SECONDS (21-34) H 05/29/16 10:50 - Constitutional Appears: Other (Intubated, not sedated, unresponsive) - Head Exam Head Exam: ATRAUMATIC, NORMAL INSPECTION, NORMOCEPHALIC - Eye Exam Eye Exam: Normal appearance - ENT Exam ENT Exam: Mucous Membranes Moist, Normal Exam Additional comments: ET tube in place - Respiratory Exam Respiratory Exam: Clear to Ausculation Bilateral, NORMAL BREATHING PATTERN. absent: Accessory Muscle Use, Rales, Rhonchi, Wheezes, Respiratory Distress Additional comments: Pt receiving rescue breathing - Cardiovascular Exam Cardiovascular Exam: REGULAR RHYTHM, +S1, +S2 - GI/Abdominal Exam GI & Abdominal Exam: Soft, Normal Bowel Sounds. absent: Distended (obese), Tenderness - Extremities Exam Extremities Exam: Pedal Edema. absent: Normal Inspection (3+ pitting edema of lower extremities B/L) - Neurological Exam Neurological Exam: absent: Alert, Awake - Psychiatric Exam Psychiatric exam: absent: Normal Affect, Normal Mood - Skin Skin Exam: Cyanosis (of face), Warm Assessment and Plan - Assessment and Plan (Free Text) Assessment: Acute respiratory failure, likely 2/2 Acute IA Code blue completed Pt intubated, continues to be unresponsive For transfer to ICU Further mgmt as per ICU Thrombosis of the R iliac and common femoral vein mild reduction of the venous return Right lower extremity swelling/pain Per ID patient has post phelibitis swelling. Plan for thrombolysis with Dr. Ortega- Tuesday 06/06 allowing for hydration and mucomyst Eliquis 10mg PO BID for 7 days (finish on 06/04) then start 5mg PO BID on 06/05- orders in Oxycodone 2-mg PO Q12 percocet 1 tab PO Q4 prn moderate pain - Continue to monitor labs - Elevate leg 05/28: Dr. Cornejo consulted- recommend starting eliquis. will send thrombophilia workup - likely secondary to known DVT vs cellulitis - Pain, erythema and swelling - afebrile, but admits to chills/night sweats - Leukocytosis with bandemia secondary to cellulitis vs steroid use Diagnostic studies - Art duplex study negative 05/25 - Repeat venous doppler 05/26 - shows known clot that extends at least to iliac vein on right Consults - Vascular surgery (Jordan) - for OR Monday - ID (Salma) - recommends continuing Zosyn and adding Azactam. Also to get echo and CT abd pelvis. 05/27- added flagyl - Procalcitonin - 31.81 Bacteremia - improved Aztreonam 1gm IVPB Q8 hours (started 05/26) Cefepime 1gm IVPB Q12 hours (started 05/26) WBC decreased to 12.2 ID (Salma) consulted - help appreciated B/C 05/27 - negative Abd CT: bilateral inguinal lymphadenopathy, right greater than left. cirrhotic contour of liver. cholelithiasis. possible infiltrate in lungs- bases Abd US: diffuse fatty infiltration of liver. cholelithiasis 05/28: WBC decreased to 29. Urine out put is ok, non febrile, and on Zosyn, Azactam, and recently placed on IV flagyl as well. - Blood cx (05/25) - gram neg rods - Afebrile Acute renal failure on Chronic Kidney disease with Nephrotic Syndrome - Currently on slow IVF, monitor renal function. Patient in previous admissions w/renal problems, at one point needed HD. Cr today 2.0 from 1.7- Nephro Arnulfo ) consulted - help appreciated, f/u recs - Nephrotic syndrome, will need small ARB dose when can tolerate, Anticardiolipin+ for IgG - Cr 1.5 on admission - Gently IVF hydration considering hx of HF. NS at 75 cc/hr -BUN 52 -Cr 2.0 Hyperkalemia K 6.0 kayexelate Re-check at 2pm Leukocytosis - WBC = 12.2 stable - Afebrile - Abx as above - monitor for fever - AM labs COPD/asthma - Duonebs 3ml INH q6h [facility] - Home Advair - home Singulair 10mg PO HS Biventricular heart failure - 01/2016 ECHO- LV EF 60-65%, mild pulmonary HTN (see full report) - repeat echo pending - EF 55-60% mild pulm hten (please see full report) - Evaluated by Dr Rodriguez on last admission for NSTEMI - home lasix - held for elevated Cr DM - steroid treatment completed - A1C 11.0 - Levemir U 30 SC Q12 - Novolog 12 U ACTID - ISS HTN - Continue home meds - Monitor vitals q4h and adjust as needed CAD - hx NSTEMI - Crestor 20mg PO HS Prophylactic measures - SCDs contraindicated due to DVT - Eliquis 10mg PO BID to end 06/04, order in for Eliquis 5mg BID starting 06/05 - Pepcid 20mg PO daily - NS at 50 cc/hour - Heart healthy/diabetic diet - PT/OT <Ady Davidson - Last Filed: 07/20/16 12:54> Objective - Vital Signs/Intake and Output Vital Signs (last 24 hours): Temp Pulse Resp BP Pulse Ox 99.4 F 92 H 17 124/84 98 06/24/16 18:00 06/24/16 18:00 06/24/16 06:00 06/24/16 10:16 06/23/16 22:00 - Labs Labs: 06/24/16 06:31 06/24/16 06:31 PT 14.2 SECONDS (9.7-12.2) H 06/19/16 09:51 INR 1.3 06/19/16 09:51 APTT 63 SECONDS (21-34) H 06/19/16 09:51 Attending/Attestation - Attestation I have personally seen and examined this patient.: Yes I have fully participated in the care of the patient.: Yes I have reviewed all pertinent clinical information, including history, physical exam and plan: Yes Notes (Text): Patient seen and examined with the resident. Agree with the resident's evaluation, assessment and plan. Acute respiratory failure, likely 2/2 Acute IA Code blue completed Pt intubated, continues to be unresponsive For transfer to ICU Further mgmt as per ICU Thrombosis of the R iliac and common femoral vein mild reduction of the venous return Right lower extremity swelling/pain Per ID patient has post phelibitis swelling. Plan for thrombolysis with Dr. Ortega- Tuesday 06/06 allowing for hydration and mucomyst Eliquis 10mg PO BID for 7 days (finish on 06/04) then start 5mg PO BID on 06/05- orders in Oxycodone 2-mg PO Q12 percocet 1 tab PO Q4 prn moderate pain - Continue to monitor labs - Elevate leg 05/28: Dr. Cornejo consulted- recommend starting eliquis. will send thrombophilia workup - likely secondary to known DVT vs cellulitis - Pain, erythema and swelling - afebrile, but admits to chills/night sweats - Leukocytosis with bandemia secondary to cellulitis vs steroid use Diagnostic studies - Art duplex study negative 05/25 - Repeat venous doppler 05/26 - shows known clot that extends at least to iliac vein on right Consults - Vascular surgery (Jordan) - for OR Monday - ID (Salma) - recommends continuing Zosyn and adding Azactam. Also to get echo and CT abd pelvis. 05/27- added flagyl - Procalcitonin - 31.81 Bacteremia - improved Aztreonam 1gm IVPB Q8 hours (started 05/26) Cefepime 1gm IVPB Q12 hours (started 05/26) WBC decreased to 12.2 ID (Salma) consulted - help appreciated B/C 05/27 - negative Abd CT: bilateral inguinal lymphadenopathy, right greater than left. cirrhotic contour of liver. cholelithiasis. possible infiltrate in lungs- bases Abd US: diffuse fatty infiltration of liver. cholelithiasis 05/28: WBC decreased to 29. Urine out put is ok, non febrile, and on Zosyn, Azactam, and recently placed on IV flagyl as well. - Blood cx (05/25) - gram neg rods - Afebrile
[2016-06-04] MEDS ORDERED: (Novolin R) Insulin Human Regular 100 units/ml vial ONE (08:40)
[2016-06-04] MEDS ORDERED: Midazolam 2 MG/2 ML VIAL ONE (08:52)
--- NOTE | 2016-06-04 09:37 | CP.PCM.PN ---
<BlackmonTristen - Last Filed: 06/04/16 09:31> Subjective - Date & Time of Evaluation Date of Evaluation: 06/04/16 Time of Evaluation: 08:45 - Subjective Subjective: Code Blue was called on due to pt. being unresponsive. Chest compressions were started. Epi and bicarb were administered. Monitor was put on pt. and had a vtach rhythm. Amiodarone was given and pt. changed to a tachycardic rhythm. 50 of dextrose was given and 10u insulin. Pt. was resisting intubation and was given Ativan and then Versed. His BP was 118/79 and he was transported to ICU. Objective - Vital Signs/Intake and Output Vital Signs (last 24 hours): Temp Pulse Resp BP Pulse Ox 97 F L 110 H 20 172/92 H 96 06/04/16 07:56 06/04/16 07:56 06/04/16 07:56 06/04/16 07:56 06/04/16 07:56 Intake and Output: 06/04/16 06/04/16 06:59 18:59 Intake Total 400 Balance 400 - Medications Medications: Current Medications Acetaminophen (Tylenol 325mg Tab) 650 mg PO Q6 PRN PRN Reason: Fever >100.4 F Last Admin: 06/04/16 00:56 Dose: 650 mg Acetylcysteine (Acetylcysteine 20%) 4 ml PO BID [facility] Last Admin: 06/04/16 01:36 Dose: 4 ml Apixaban (Eliquis) 10 mg PO BID [facility] Stop: 06/04/16 23:00 Last Admin: 06/03/16 21:45 Dose: 10 mg Apixaban (Eliquis) 5 mg PO BID [facility] Aspirin (Aspirin Chewable) 81 mg PO DAILY [facility] Last Admin: 06/03/16 09:37 Dose: 81 mg Docusate Sodium (Colace) 100 mg PO BID [facility] Last Admin: 06/03/16 18:04 Dose: 100 mg Famotidine (Pepcid) 20 mg PO DAILY [facility] Last Admin: 06/03/16 09:37 Dose: 20 mg Cefepime HCl (Maxipime Iv 1 Gm Premix) 50 mls @ 100 mls/hr IVPB Q12 [facility] Last Admin: 06/03/16 21:39 Dose: 100 mls/hr Aztreonam 1 gm/ Sodium (Chloride) 100 mls @ 100 mls/hr IVPB Q8H [facility] Last Admin: 06/04/16 00:58 Dose: 100 mls/hr Dextrose/Sodium Chloride (Dextrose 5%/0.45% Ns 1000 Ml) 1,000 mls @ 100 mls/hr IV .Q10H [facility] Insulin Aspart (Novolog) 12 unit SC ACTID [facility] Last Admin: 06/03/16 17:30 Dose: 12 unit Insulin Detemir (Levemir) 30 unit SC Q12 [facility] Last Admin: 06/03/16 21:41 Dose: 30 unit Insulin Human Regular (Novolin R) 0 unit SC ACHS [facility] PRN Reason: Protocol Last Admin: 06/03/16 21:45 Dose: Not Given Montelukast Sodium (Singulair) 10 mg PO HS [facility] Last Admin: 06/03/16 21:41 Dose: 10 mg Oxycodone HCl (Oxycontin Extended Release Tab) 20 mg PO Q12 [facility] Stop: 06/05/16 10:16 Last Admin: 06/03/16 21:41 Dose: 20 mg Fluticasone/Salmeterol (Advair Diskus 250/50) 2 puff IH RQ12 [facility] Last Admin: 06/03/16 07:48 Dose: 2 puff - Labs Labs: 06/04/16 06:15 06/04/16 06:15 PT 13.9 SECONDS (9.7-12.2) H 05/27/16 09:38 INR 1.2 05/27/16 09:38 APTT 65 SECONDS (21-34) H 05/29/16 10:50 <Vicente Stearns - Last Filed: 06/28/16 22:17> Objective - Vital Signs/Intake and Output Vital Signs (last 24 hours): Temp Pulse Resp BP Pulse Ox 99.4 F 92 H 17 124/84 98 06/24/16 18:00 06/24/16 18:00 06/24/16 06:00 06/24/16 10:16 06/23/16 22:00 - Labs Labs: 06/24/16 06:31 06/24/16 06:31 PT 14.2 SECONDS (9.7-12.2) H 06/19/16 09:51 INR 1.3 06/19/16 09:51 APTT 63 SECONDS (21-34) H 06/19/16 09:51 Assessment and Plan (1) Acute respiratory failure Status: Acute (2) Deep venous thrombosis of lower extremity Status: Acute (3) Nephrotic syndrome Status: Acute (4) Diabetes Status: Chronic (5) HTN (hypertension) Status: Chronic (6) UTI (urinary tract infection) due to Enterococcus Status: Acute Attending/Attestation - Attestation I have personally seen and examined this patient.: Yes I have fully participated in the care of the patient.: Yes I have reviewed all pertinent clinical information, including history, physical exam and plan: Yes
[2016-06-04 10:07] LABS: ABG ALLEN TEST PO; ABG MECHANICAL RATE 14; ATERIAL BLOOD GAS PEEP 5; DRAW SITE RRA
[2016-06-04] MEDS: (Novolog) Insulin Aspart, Recombinant 100 u/ml 10 ml vial SC SCH ×3 (10:28→16:59)
[2016-06-04] MEDS: (Novolin R) Insulin Human Regular 100 units/ml vial SC SCH ×3 (10:29→18:19)
[2016-06-04] MEDS ORDERED: Calcium Gluconate 4.65 mEq/10 ml Inj IV ONE (10:30)
[2016-06-04] MEDS: oxyCODONE 20 mg ER Tab (oxyCONTIN) PO SCH (10:31)
[2016-06-04] MEDS: Insulin Detemir 100 units/ml Vial (Levemir) SC SCH (10:33)
[2016-06-04] MEDS: Cefepime IV 1 gm in Dextrose 50 ML IVPB SCH ×2 (10:58→21:48)
--- NOTE | 2016-06-04 11:08 | RAD ---
HISTORY: resp failure COMPARISON: Comparison chest 05/27/2016. FINDINGS: LUNGS: In situ endotracheal tube, the tip of which lies at the level of the inferior margins of the clavicular heads. The fish is poorly seen. Diffuse bilateral infiltrates may represent pulmonary edema/ CHF or pneumonia. Clinical correlation recommended. PLEURA: Questionable small bilateral effusions right larger than left. . CARDIOVASCULAR: Cardiomegaly. OSSEOUS STRUCTURES: No significant abnormalities. VISUALIZED UPPER ABDOMEN: Normal. OTHER FINDINGS: None. IMPRESSION: Tracheostomy tube as above. Cardiomegaly. Bilateral infiltrates could represent pulmonary edema/ CHF and or pneumonia.
--- NOTE | 2016-06-04 11:39 | CP.PCM.PN ---
Subjective - Date & Time of Evaluation Date of Evaluation: 06/04/16 Time of Evaluation: 11:36 - Subjective Subjective: Notes reviewed Events noted Discussed with nursing staff and critical care team Intubated and unresponsive Campbell placed with minimal urine S/p code Family present - care reviewed Objective - Vital Signs/Intake and Output Vital Signs (last 24 hours): Temp Pulse Resp BP Pulse Ox 97 F L 110 H 20 172/92 H 96 06/04/16 07:56 06/04/16 07:56 06/04/16 07:56 06/04/16 07:56 06/04/16 07:56 Intake and Output: 06/04/16 06/04/16 06:59 18:59 Intake Total 400 Balance 400 - Medications Medications: Current Medications Acetaminophen (Tylenol 325mg Tab) 650 mg PO Q6 PRN PRN Reason: Fever >100.4 F Last Admin: 06/04/16 00:56 Dose: 650 mg Acetylcysteine (Acetylcysteine 20%) 4 ml PO BID [facility] Last Admin: 06/04/16 01:36 Dose: 4 ml Apixaban (Eliquis) 10 mg PO BID [facility] Stop: 06/04/16 23:00 Last Admin: 06/04/16 11:09 Dose: 10 mg Apixaban (Eliquis) 5 mg PO BID [facility] Aspirin (Aspirin Chewable) 81 mg PO DAILY [facility] Last Admin: 06/04/16 11:05 Dose: 81 mg Docusate Sodium (Colace) 100 mg PO BID [facility] Last Admin: 06/04/16 10:13 Dose: Not Given Famotidine (Pepcid) 20 mg IVP Q12 [facility] Cefepime HCl (Maxipime Iv 1 Gm Premix) 50 mls @ 100 mls/hr IVPB Q12 [facility] Last Admin: 06/04/16 10:58 Dose: 100 mls/hr Aztreonam 1 gm/ Sodium (Chloride) 100 mls @ 100 mls/hr IVPB Q12H [facility] Last Admin: 06/04/16 10:33 Dose: 100 mls/hr Vancomycin HCl (Vancomycin 1gm In Normal Saline Addvantage) 250 mls @ 167 mls/ hr IVPB STAT [facility] Stop: 06/04/16 13:00 Insulin Aspart (Novolog) 12 unit SC ACTID [facility] Last Admin: 06/04/16 11:36 Dose: Not Given Insulin Detemir (Levemir) 30 unit SC Q12 [facility] Last Admin: 06/04/16 10:33 Dose: Not Given Insulin Human Regular (Novolin R) 0 unit SC ACHS [facility] PRN Reason: Protocol Last Admin: 06/04/16 10:29 Dose: Not Given - Labs Labs: 06/04/16 06:15 06/04/16 06:15 PT 13.9 SECONDS (9.7-12.2) H 05/27/16 09:38 INR 1.2 05/27/16 09:38 APTT 65 SECONDS (21-34) H 05/29/16 10:50 - Constitutional Appears: Toxic - Head Exam Head Exam: ATRAUMATIC, NORMAL INSPECTION Additional comments: obese - ENT Exam ENT Exam: Mucous Membranes Moist Additional comments: intubated, et tube in place - Respiratory Exam Respiratory Exam: Rales, Rhonchi - Cardiovascular Exam Cardiovascular Exam: REGULAR RHYTHM, +S1, +S2. absent: Murmur - GI/Abdominal Exam GI & Abdominal Exam: Soft, Normal Bowel Sounds - Extremities Exam Extremities Exam: Pedal Edema. absent: Joint Swelling Additional comments: anasarca - Neurological Exam Neurological Exam: absent: Alert, Oriented x3 - Skin Skin Exam: Dry, Intact Assessment and Plan (1) Chronic kidney disease, stage 3 (moderate) Status: Acute (2) Type 2 diabetes mellitus with diabetic nephropathy Status: Acute (3) Acute renal failure Status: Resolved (4) DVT (deep venous thrombosis) Status: Acute (5) Hyperkalemia Status: Acute - Assessment and Plan (Free Text) Plan: Acute kidney injury, hyperkalemia, respiratory distress ?PE vs pneumonia vs obesity hypoven vs aspiration vs ? HENRIQUE due to decreased renal perfusion during code Agree with volume for hemodynamic support Potassium treated medically Discussed with intensive care team and patient's family- Dialysis consent obtained should potassium not respond to medical therapy and/ or renal function not recover
[2016-06-04] MEDS ORDERED: Sodium Chloride 0.9% 1,000 ML IV ONE (11:43)
[2016-06-04] MEDS ORDERED: Sodium Chloride 0.9% 500 ML IV ONE ×2 (11:44→14:50)
[2016-06-04] MEDS ORDERED: Propofol 10 mg/ml Inj (20 ML) IV ONE (11:48)
[2016-06-04] MEDS ORDERED: Vancomycin 1 gm/NS 200 ml 200 ML IVPB STA (12:13)
--- NOTE | 2016-06-04 15:07 | CP.PCM.PN ---
Subjective - Date & Time of Evaluation Date of Evaluation: 06/04/16 Time of Evaluation: 02:45 - Subjective Subjective: dictated Objective - Vital Signs/Intake and Output Vital Signs (last 24 hours): Temp Pulse Resp BP Pulse Ox 100.9 F H 95 H 20 90/42 L 100 06/04/16 09:00 06/04/16 12:06 06/04/16 12:06 06/04/16 12:06 06/04/16 12:06 Intake and Output: 06/04/16 06/04/16 06:59 18:59 Intake Total 400 Balance 400 - Medications Medications: Current Medications Acetaminophen (Tylenol 325mg Tab) 650 mg PO Q6 PRN PRN Reason: Fever >100.4 F Last Admin: 06/04/16 13:35 Dose: 650 mg Acetylcysteine (Acetylcysteine 20%) 4 ml PO BID [facility] Last Admin: 06/04/16 01:36 Dose: 4 ml Apixaban (Eliquis) 10 mg PO BID [facility] Stop: 06/04/16 23:00 Last Admin: 06/04/16 11:09 Dose: 10 mg Apixaban (Eliquis) 5 mg PO BID [facility] Aspirin (Aspirin Chewable) 81 mg PO DAILY [facility] Last Admin: 06/04/16 11:05 Dose: 81 mg Docusate Sodium (Colace) 100 mg PO BID [facility] Last Admin: 06/04/16 10:13 Dose: Not Given Famotidine (Pepcid) 20 mg IVP DAILY [facility] Last Admin: 06/04/16 12:10 Dose: 20 mg Cefepime HCl (Maxipime Iv 1 Gm Premix) 50 mls @ 100 mls/hr IVPB Q12 [facility] Last Admin: 06/04/16 10:58 Dose: 100 mls/hr Aztreonam 1 gm/ Sodium (Chloride) 100 mls @ 100 mls/hr IVPB Q12H [facility] Last Admin: 06/04/16 10:33 Dose: 100 mls/hr Propofol (Diprivan) 100 mls @ 4.014 mls/hr IV .Q24H PRN; Protocol; 5 MCG/KG/MIN PRN Reason: TITRATE PER MD ORDER Last Admin: 06/04/16 12:04 Dose: 4.014 mls/hr Sodium Chloride (Sodium Chloride 0.9%) 500 mls @ 1,000 mls/hr IV .Q30M [facility] Stop: 06/04/16 15:19 Insulin Aspart (Novolog) 12 unit SC ACTID [facility] Last Admin: 06/04/16 11:36 Dose: Not Given Insulin Detemir (Levemir) 30 unit SC Q12 [facility] Last Admin: 06/04/16 10:33 Dose: Not Given Insulin Human Regular (Novolin R) 0 unit SC ACHS [facility] PRN Reason: Protocol Last Admin: 06/04/16 11:40 Dose: 2 unit - Labs Labs: 06/04/16 06:15 06/04/16 06:15 PT 13.9 SECONDS (9.7-12.2) H 05/27/16 09:38 INR 1.2 05/27/16 09:38 APTT 65 SECONDS (21-34) H 05/29/16 10:50
[2016-06-04 15:42] LABS: POTASSIUM 5.6 mmol/L (3.6-5.2)
[2016-06-04 15:46] LABS: CALCIUM 7.3 mg/dl (8.6-10.4)
--- NOTE | 2016-06-04 16:01 | PN ---
DATE: 06/04/2016 SUBJECTIVE: The patient is in ICU at this time intubated after a cardiopulmonary arrest. He is, how ever, moving his extremities. He remains with right leg and right thigh markedly swollen with an ext ensive DVT. He is status post intubation. PHYSICAL EXAMINATION: VITAL SIGNS: He had a temperature of 100.9 today and blood pressure is 102/49, heart rate is 88-89 and remains responsive. NECK: Supple. LUNGS: Decreased breath sounds bilaterally. HEART: S1, S2 regular. ABDOMEN: Soft, nontender, morbidly obese, flabby. EXTREMITIES: Right thigh and right leg is extensively swollen with discoloration. Left leg is unrem arkable. LABORATORY DATA: White count is 12.2, hemoglobin 13.8, hematocrit 42.6, platelet count is 143; now i t is better. Sodium is 130, potassium is 6, so they need to work on that and creatinine is 2.0. Serafin hess just saw the patient and the patient's alkaline phosphatase is 458. Blood cultures and urine cultures have all been negative, only on 05/25 he had Serratia, which was sensitive to cefepime a s well as to Azactam and we have continued both of them at this time since he is a big rodney and has a big BMI and he also received one dose of vancomycin today and septic workup has been ordered. So carolee stout follow. Joshua Marsh MD cc: [id number] TT: 06/04/2016 16:00:37 Confirmation # [id number] Dictation # [id number]
[2016-06-04] MEDS: Sodium Chloride 0.9% 1,000 ML IV SCH (16:39)
--- NOTE | 2016-06-04 18:25 | CP.PCM.PN ---
Subjective - Date & Time of Evaluation Date of Evaluation: 06/04/16 Time of Evaluation: 11:22 - Subjective Subjective: intubated this am resp code this am found to have foaming at mouth did not lose pulse was not breathing per rn intubated and now in icu Objective - Vital Signs/Intake and Output Vital Signs (last 24 hours): Temp Pulse Resp BP Pulse Ox 100.6 F H 93 H 20 96/42 L 96 06/04/16 16:00 06/04/16 18:00 06/04/16 18:00 06/04/16 17:06 06/04/16 18:00 Intake and Output: 06/04/16 06/04/16 06:59 18:59 Intake Total 400 2944 Output Total 265 Balance 400 2679 - Medications Medications: Current Medications Acetaminophen (Tylenol 325mg Tab) 650 mg PO Q6 PRN PRN Reason: Fever >100.4 F Last Admin: 06/04/16 13:35 Dose: 650 mg Acetylcysteine (Acetylcysteine 20%) 4 ml PO BID [facility] Last Admin: 06/04/16 18:21 Dose: 4 ml Apixaban (Eliquis) 10 mg PO BID [facility] Stop: 06/04/16 23:00 Last Admin: 06/04/16 17:29 Dose: 10 mg Apixaban (Eliquis) 5 mg PO BID [facility] Aspirin (Aspirin Chewable) 81 mg PO DAILY [facility] Last Admin: 06/04/16 11:05 Dose: 81 mg Docusate Sodium (Colace) 100 mg PO BID [facility] Last Admin: 06/04/16 18:18 Dose: Not Given Famotidine (Pepcid) 20 mg IVP DAILY [facility] Last Admin: 06/04/16 12:10 Dose: 20 mg Cefepime HCl (Maxipime Iv 1 Gm Premix) 50 mls @ 100 mls/hr IVPB Q12 [facility] Last Admin: 06/04/16 10:58 Dose: 100 mls/hr Aztreonam 1 gm/ Sodium (Chloride) 100 mls @ 100 mls/hr IVPB Q12H [facility] Last Admin: 06/04/16 10:33 Dose: 100 mls/hr Propofol (Diprivan) 100 mls @ 4.014 mls/hr IV .Q24H PRN; Protocol; 5 MCG/KG/MIN PRN Reason: TITRATE PER MD ORDER Last Admin: 06/04/16 12:04 Dose: 4.014 mls/hr Sodium Chloride (Sodium Chloride 0.9%) 1,000 mls @ 125 mls/hr IV .Q8H [facility] Last Admin: 06/04/16 16:39 Dose: 125 mls/hr Insulin Human Regular (Novolin R) 0 unit SC Q6H [facility] PRN Reason: Protocol Last Admin: 06/04/16 18:19 Dose: Not Given - Labs Labs: 06/04/16 06:15 06/04/16 15:17 PT 13.9 SECONDS (9.7-12.2) H 05/27/16 09:38 INR 1.2 05/27/16 09:38 APTT 65 SECONDS (21-34) H 05/29/16 10:50 - Constitutional Appears: No Acute Distress - Head Exam Head Exam: ATRAUMATIC - Eye Exam Additional comments: et - Respiratory Exam Respiratory Exam: Rhonchi - Cardiovascular Exam Cardiovascular Exam: REGULAR RHYTHM, +S1, +S2 - GI/Abdominal Exam GI & Abdominal Exam: Soft, Normal Bowel Sounds. absent: Tenderness - Extremities Exam Extremities Exam: Pedal Edema Additional comments: right leg blisters swollen has dvt in right leg red - Neurological Exam Neurological Exam: absent: Alert, Awake, Oriented x3 Assessment and Plan - Assessment and Plan (Free Text) Assessment: Acute respiratory failure now intubated Pneumonia? now in ICU management per ICU possible NEW PE despite being on anticoagulation was planned for thrombolysis but the limitation was renal function Thrombosis of the R iliac and common femoral vein mild reduction of the venous return Right lower extremity swelling/pain Per ID patient has post phelibitis swelling. Will reach out to surgery (Dr. Ortega) and see if patient is stable for thrombolysis. Patient's renal function improving. Cr down to 1.[address] Ortega will plan for thrombolysis surgery on Tuesday 06/06 allowing for hydration and mucomyst Eliquis 10mg PO BID for 7 days (finish on 06/04) then start 5mg PO BID on 06/05 Oxycodone 2-mg PO Q12 percocet 1 tab PO Q4 prn moderate pain - Continue to monitor labs - Elevate leg 05/28: Dr. Cornejo consulted- recommend starting eliquis. will send thrombophilia workup - likely secondary to known DVT vs cellulitis - Pain, erythema and swelling - afebrile, but admits to chills/night sweats - Leukocytosis with bandemia secondary to cellulitis vs steroid use Diagnostic studies - Art duplex study negative 05/25 - Repeat venous doppler 05/26 - shows known clot that extends at least to iliac vein on right Consults - Vascular surgery (Ucon) - would recommend thrombolysis but will hold for elevated CR, will continue to follow - ID (Salma) - recommends continuing Zosyn and adding Azactam. Also to get echo and CT abd pelvis. 05/27- added flagyl - Procalcitonin - 31.81 Bacteremia - improved Aztreonam 1gm IVPB Q8 hours (started 05/26) Cefepime 1gm IVPB Q12 hours (started 05/26) WBC decreased to 12.8 ID (Salma) consulted - help appreciated B/C 05/27 - negative Abd CT: bilateral inguinal lymphadenopathy, right greater than left. cirrhotic contour of liver. cholelithiasis. possible infiltrate in lungs- bases Abd US: diffuse fatty infiltration of liver. cholelithiasis 05/28: WBC decreased to 29. Urine out put is ok, non febrile, and on Zosyn, Azactam, and recently placed on IV flagyl as well. - Blood cx (05/25) - gram neg rods - Afebrile Acute renal failure on Chronic Kidney disease with Nephrotic Syndrome - Currently on slow IVF, monitor renal function. Patient in previous time admissions has had a lot of renal problems and at one point needed HD. Cr today 1.7 improving - Nephro (Jf) consulted - help appreciated, f/u recs - Nephrotic syndrome, will need small ARB dose when can tolerate, Anticardiolipin+ for IgG - Cr 1.5 on admission - Gently IVF hydration considering hx of HF. NS at 75 cc/hr Leukocytosis - WBC = 12.8 stable - Afebrile - Abx as above - monitor for fever - AM labs COPD/asthma - Duonebs 3ml INH q6h [facility] - Home Advair - home Singulair 10mg PO HS Biventricular heart failure - 01/2016 ECHO- LV EF 60-65%, mild pulmonary HTN (see full report) - repeat echo pending - EF 55-60% mild pulm hten (please see full report) - Evaluated by Dr Rodriguez on last admission for NSTEMI - home lasix - held for elevated Cr DM - steroid treatment completed - A1C 11.0 - Levemir U 30 SC Q12 - Novolog 12 U ACTID - ISS HTN - Continue home meds - Monitor vitals q4h and adjust as needed CAD - hx NSTEMI - Crestor 20mg PO HS Prophylactic measures - SCDs contraindicated due to DVT - Eliquis 10mg PO BID - Pepcid 20mg PO daily - NS at 50 cc/hour - Heart healthy/diabetic diet - PT/OT
--- NOTE | 2016-06-04 19:15 | CP.PCM.CON ---
History of Present Illness - History of Present Illness History of Present Illness: 45 year old male with PMHx of COPD, asthma, DM, HN, DVT in RLE, NSTEMI in 2015, gallstones, liver cirrhosis, and CKD presents with complaint of aright LE pain and swelling. Pt recently was admitted to [facility] and found to have a DVT in his right lower extremity and discharged on Xarelto. Repeat venous doppler is consistent with extensive right femoral and iliac vein DVT. This morning Annamaria Nelson was called on due to pt. being unresponsive. Chest compressions were started. Patient intubated and transferred to intensive care unit. PMHx: COPD, asthma, DM, HN, DVT in RLE, NSTEMI in 01/2016, gallstones, liver cirrhosis, and CKD Surgical Hx: splenectomy Family Hx: Mom- DM Social hx: Previous smoker for 20 years, quit ~5 years ago; denies illicit drug use; denies EtOH use; unemployed Allergies: NKDA Review of Systems - Review of Systems Systems not reviewed;Unavailable: Intubated Past Patient History - Infectious Disease Hx of Infectious Diseases: None - Past Medical History & Family History Past Medical History?: Yes - Past Social History Smoking Status: Former Smoker - CARDIAC Hx Cardiac Disorders: Yes Hx Congestive Heart Failure: Yes Hx Hypertension: Yes - PULMONARY Hx Chronic Obstructive Pulmonary Disease (COPD): Yes - NEUROLOGICAL Hx Neurological Disorder: Yes Other/Comment: c/o headache on admission, spinal tap attempted to remove spinal fluid. becuase of immobility developed DVT. at the time. right leg. - HEENT Hx HEENT Problems: No - RENAL Hx Chronic Kidney Disease: No - ENDOCRINE/METABOLIC Hx Diabetes Mellitus Type 1: Yes - HEMATOLOGICAL/ONCOLOGICAL Hx Blood Disorders: No - INTEGUMENTARY Hx Dermatological Problems: Yes Hx Cellulitis: Yes - MUSCULOSKELETAL/RHEUMATOLOGICAL Hx Musculoskeletal Disorders: No Hx Falls: No - GASTROINTESTINAL Hx Gastrointestinal Disorders: No - GENITOURINARY/GYNECOLOGICAL Hx Genitourinary Disorders: No - PSYCHIATRIC Hx Substance Use: No - SURGICAL HISTORY Hx Surgeries: Yes Hx Splenectomy: Yes (3 years ago) Hx Vascular Access Device: Yes (HX INGUINAL PERMA CATH) - ANESTHESIA Hx Anesthesia: Yes Hx Anesthesia Reactions: No Hx Malignant Hyperthermia: No Has any member of the family had a problem w/ anesthesia?: No Meds Allergies/Adverse Reactions: Allergies Allergy/AdvReac Type Severity Reaction Status Date / Time EGG Allergy Intermediate RASH Verified 05/25/16 14:29 - Medications Medications: Current Medications Acetaminophen (Tylenol 325mg Tab) 650 mg PO Q6 PRN PRN Reason: Fever >100.4 F Last Admin: 06/04/16 13:35 Dose: 650 mg Acetylcysteine (Acetylcysteine 20%) 4 ml PO BID [facility] Last Admin: 06/04/16 18:21 Dose: 4 ml Apixaban (Eliquis) 10 mg PO BID [facility] Stop: 06/04/16 23:00 Last Admin: 06/04/16 17:29 Dose: 10 mg Apixaban (Eliquis) 5 mg PO BID [facility] Aspirin (Aspirin Chewable) 81 mg PO DAILY [facility] Last Admin: 06/04/16 11:05 Dose: 81 mg Docusate Sodium (Colace) 100 mg PO BID [facility] Last Admin: 06/04/16 18:18 Dose: Not Given Famotidine (Pepcid) 20 mg IVP DAILY [facility] Last Admin: 06/04/16 12:10 Dose: 20 mg Cefepime HCl (Maxipime Iv 1 Gm Premix) 50 mls @ 100 mls/hr IVPB Q12 [facility] Last Admin: 06/04/16 10:58 Dose: 100 mls/hr Aztreonam 1 gm/ Sodium (Chloride) 100 mls @ 100 mls/hr IVPB Q12H [facility] Last Admin: 06/04/16 10:33 Dose: 100 mls/hr Propofol (Diprivan) 100 mls @ 4.014 mls/hr IV .Q24H PRN; Protocol; 5 MCG/KG/MIN PRN Reason: TITRATE PER MD ORDER Last Admin: 06/04/16 12:04 Dose: 4.014 mls/hr Sodium Chloride (Sodium Chloride 0.9%) 1,000 mls @ 125 mls/hr IV .Q8H [facility] Last Admin: 06/04/16 16:39 Dose: 125 mls/hr Insulin Human Regular (Novolin R) 0 unit SC Q6H [facility] PRN Reason: Protocol Last Admin: 06/04/16 18:19 Dose: Not Given Physical Exam - Head Exam Head Exam: ATRAUMATIC, NORMOCEPHALIC - Eye Exam Eye Exam: Normal appearance - ENT Exam ENT Exam: Mucous Membranes Moist - Neck Exam Neck exam: Positive for: Normal Inspection - Respiratory Exam Respiratory Exam: Rales - Cardiovascular Exam Cardiovascular Exam: REGULAR RHYTHM - GI/Abdominal Exam GI & Abdominal Exam: Normal Bowel Sounds, Soft - Extremities Exam Extremities exam: Positive for: pedal edema - Neurological Exam Neurological exam: Altered Results - Vital Signs Recent Vital Signs: Last Vital Signs Temp 100.6 F H 06/04/16 16:00 Pulse 93 H 06/04/16 18:00 Resp 20 06/04/16 18:00 BP 96/42 L 06/04/16 17:06 Pulse Ox 96 06/04/16 18:00 - Labs Result Diagrams: 06/04/16 06:15 06/04/16 15:17 Labs: Laboratory Results - last 24 hr 06/03/16 06/04/16 06/04/16 21:33 06:15 06:32 WBC 12.2 H RBC 4.75 Hgb 13.8 Hct 42.6 MCV 89.9 MCH 29.1 MCHC 32.4 L RDW 16.5 H Plt Count 143 MPV 10.4 Neut % (Auto) 60.8 Lymph % (Auto) 15.6 L [place] % (Auto) 16.6 H Eos % (Auto) 5.5 H Baso % (Auto) 1.5 Neut # 7.4 H Lymph # 1.9 [place] # 2.0 H Eos # 0.7 Baso # 0.2 Puncture Site pCO2 pO2 HCO3 ABG pH ABG Total CO2 ABG O2 Saturation ABG Base Excess Philippe Test ABG Potassium A-a O2 Difference Respiratory Index Glucose Lactate Mechanical Rate FiO2 Tidal Volume PEEP Crit Value Called To Crit Value Called By Crit Value Read Back Blood Gas Notified Time Sodium 130 L Potassium 6.0 H Chloride 98 Carbon Dioxide 26 Anion Gap 12 BUN 52 H Creatinine 2.0 H Est GFR ( Amer) 44 Est GFR (Non-Af Amer) 36 POC Glucose (mg/dL) 123 H 172 H Random Glucose 186 H Calcium 7.7 L Phosphorus 4.5 Magnesium 1.8 Total Bilirubin 0.5 AST 62 H D ALT 56 Alkaline Phosphatase 458 H D Total Protein 6.4 Albumin 2.8 L Globulin 3.6 Albumin/Globulin Ratio 0.8 L Arterial Blood Potassium 06/04/16 06/04/16 06/04/16 08:32 09:58 11:26 WBC RBC Hgb Hct MCV MCH MCHC RDW Plt Count MPV Neut % (Auto) Lymph % (Auto) [place] % (Auto) Eos % (Auto) Baso % (Auto) Neut # Lymph # [place] # Eos # Baso # Puncture Site Rra pCO2 67 H pO2 177 H HCO3 20.8 L ABG pH 7.17 L* ABG Total CO2 26.5 ABG O2 Saturation 99.9 H ABG Base Excess -5.4 L Philippe Test Po ABG Potassium 6.5 H* A-a O2 Difference 452.0 Respiratory Index 2.6 Glucose 221 H Lactate 0.8 Mechanical Rate 14 FiO2 100.0 Tidal Volume 500 PEEP 5 Crit Value Called To md Janae Crit Value Called By patrice Weiner,milk inspector Crit Value Read Back Y Blood Gas Notified Time 1005 Sodium 133.0 Potassium Chloride 107.0 Carbon Dioxide Anion Gap BUN Creatinine Est GFR ( Amer) Est GFR (Non-Af Amer) POC Glucose (mg/dL) 275 H 214 H Random Glucose Calcium Phosphorus Magnesium Total Bilirubin AST ALT Alkaline Phosphatase Total Protein Albumin Globulin Albumin/Globulin Ratio Arterial Blood Potassium 6.5 H* 06/04/16 06/04/16 15:17 18:18 WBC RBC Hgb Hct MCV MCH MCHC RDW Plt Count MPV Neut % (Auto) Lymph % (Auto) [place] % (Auto) Eos % (Auto) Baso % (Auto) Neut # Lymph # [place] # Eos # Baso # Puncture Site pCO2 pO2 HCO3 ABG pH ABG Total CO2 ABG O2 Saturation ABG Base Excess Philippe Test ABG Potassium A-a O2 Difference Respiratory Index Glucose Lactate Mechanical Rate FiO2 Tidal Volume PEEP Crit Value Called To Crit Value Called By Crit Value Read Back Blood Gas Notified Time Sodium 131 L Potassium 5.6 H Chloride 98 Carbon Dioxide 26 Anion Gap 13 BUN 55 H Creatinine 2.5 H Est GFR ( Amer) 34 Est GFR (Non-Af Amer) 28 POC Glucose (mg/dL) 158 H Random Glucose 178 H Calcium 7.3 L Phosphorus Magnesium Total Bilirubin AST ALT Alkaline Phosphatase Total Protein Albumin Globulin Albumin/Globulin Ratio Arterial Blood Potassium Assessment & Plan (1) Respiratory arrest Status: Acute Comment: unlikely pulmonary embolism as pt on ELIQUIS. Copious amount of purulent secretions aspirated from ET tube consistent with pneumonia. Continue antibiotics. Ventilatory support, reduce FiO2 as tolerated. Follow-up chest x- ray. Fluid resuscitation (2) Chronic kidney disease, stage 3 (moderate) Status: Acute Comment: Dialysis catheter inserted in left femoral vein under aseptic conditions. Monitor potassium level and if it remains elevated consider hemodialysis (3) Deep venous thrombosis of lower extremity Status: Acute Comment: Continue Eliquis. DR YBARRA for possible thrombectomy (4) Hyperkalemia Status: Acute
[2016-06-04 22:44] LABS: POTASSIUM 5.5 mmol/L (3.6-5.2)
[2016-06-04 22:48] LABS: CALCIUM 7.3 mg/dl (8.6-10.4)
[2016-06-05] MEDS: Sodium Chloride 0.9% 1,000 ML IV SCH ×3 (00:05→17:07)
[2016-06-05] MEDS: (Novolin R) Insulin Human Regular 100 units/ml vial SC SCH ×4 (00:07→18:02)
[2016-06-05] MEDS ORDERED: Sodium Bicarbonate (8.4%) 50 Meq Syringe ONE (01:18)
[2016-06-05] MEDS ORDERED: Dextrose 50% SYRINGE Inj (50 ml) ONE (01:19)
[2016-06-05 05:44] LABS: ABG ALLEN TEST POS; ABG MECHANICAL RATE 20; ARTERIAL BLOOD HGB O2 SAT 96.7 % (95.0-98.0); ATERIAL BLOOD GAS PEEP 5; CARBOXYHEMOGLOBIN 1.5 % (0.5-1.5); DRAW SITE RR; HHB 0.5 % (0.0-5.0); METHEMOGLOBIN 1.3 % (0.0-3.0)
[2016-06-05 06:41] LABS: BASO # 0.2 K/uL (0.0-0.2); BASO % 0.6 % (0.0-2.0); EOS # 0.3 K/uL (0.0-0.7); HEMATOCRIT 37.4 % (35.0-51.0); LYMPH # 1.1 K/uL (1.0-4.3); LYMPH % 4.5 % (20.0-40.0); MEAN CELL VOLUME 89.9 fL (80.0-94.0); MEAN CORPUSCULAR HEMOGLOBIN 28.4 pg (27.0-31.0); MEAN CORPUSCULAR HGB CONC 31.6 g/dL (33.0-37.0); MEAN PLATELET VOLUME 10.9 fL (7.2-11.7); MONO # 1.9 K/uL (0.0-0.8); MONO % 7.5 % (0.0-10.0); PLATELET COUNT 174 K/uL (130-400); RED CELL DISTRIBUTION WIDTH 16.3 % (11.5-14.5); WHITE BLOOD COUNT 25.5 K/uL (4.8-10.8)
[2016-06-05 06:55] LABS: POTASSIUM 5.3 mmol/L (3.6-5.2)
[2016-06-05 06:57] LABS: ALB/GLOB RATIO 0.8 (1.0-2.1); BILIRUBIN,TOTAL 0.5 mg/dL (0.2-1.3); TOTAL PROTEIN 5.3 g/dL (6.3-8.3)
[2016-06-05 06:58] LABS: CALCIUM 7.3 mg/dl (8.6-10.4); MAGNESIUM 1.8 mg/dL (1.6-2.3); PHOSPHOROUS 5.5 mg/dL (2.5-4.5)
[2016-06-05] MEDS ORDERED: Dextrose 5%/0.45% NS 1,000 ML IV SCH (08:00)
[2016-06-05] MEDS ORDERED: Sod Polystyrene Sulf 15 gm/60 ml Oral Susp PO ONE ×2 (09:15→19:02)
[2016-06-05 09:16] LABS: TOTAL CELLS COUNTED 100
[2016-06-05 09:17] LABS: LARGE PLATELETS PRESENT; NEUTROPHIL 75 % (50-75)
[2016-06-05] MEDS: Acetylcysteine 20% Inhal Soln (4ml) PO SCH ×2 (09:47→17:09)
[2016-06-05] MEDS: Aztreonam 1 GM in Sodium Chloride 0.9% 100 ML IVPB SCH ×2 (09:47→21:42)
[2016-06-05] MEDS: Cefepime IV 1 gm in Dextrose 50 ML IVPB SCH ×2 (10:01→21:41)
--- NOTE | 2016-06-05 10:41 | RAD ---
HISTORY: follow up,intubated COMPARISON: Six theNo prior. FINDINGS: In situ ETT, the tip of which lies approximately 2.2 cm above the expected location of the fish. There is also a NGT present, the mi distal aspect of which is poorly delineated. LUNGS: Pulmonary vascular congestive changes with bilateral lower lobe alveolar-type infiltrates and suspected bilateral effusions. PLEURA: No significant pleural effusion identified, no pneumothorax apparent. CARDIOVASCULAR: Cardiomegaly. OSSEOUS STRUCTURES: No significant abnormalities. VISUALIZED UPPER ABDOMEN: Normal. OTHER FINDINGS: None. IMPRESSION: In situ ETT and apparent in situ NGT as above in the distal aspect of the NGT is poorly delineated. Cardiomegaly. Pulmonary vascular congestive changes with bilateral lower lobe alveolar-type infiltrates and bilateral effusions.
[2016-06-05] MEDS ORDERED: Potassium Chloride 20 mEq ER Tab PO ONE (12:47)
--- NOTE | 2016-06-05 14:11 | CP.PCM.PN ---
Subjective - Date & Time of Evaluation Date of Evaluation: 06/05/16 Time of Evaluation: 09:15 - Subjective Subjective: Medical Attending Note: Follow-up: Acute Respiratory Failure, Aspiration Pneumonia, Sepsis, Bacteremia, Right lower DVT+ (noncompliance on Xarelto), Antiphosolipid syndrome, Hx of COPD , acute on chronic kidney failure Patient seen, examined and currently intubated. Patient is on vent. On sedation due to agitation unable to review ROS given clinical state. Objective - Vital Signs/Intake and Output Vital Signs (last 24 hours): Temp Pulse Resp BP Pulse Ox 99.3 F 89 24 109/66 96 06/05/16 08:00 06/05/16 13:06 06/05/16 13:06 06/05/16 13:06 06/05/16 13:06 Intake and Output: 06/05/16 06/05/16 06:59 18:59 Intake Total 1900.9 563.4 Output Total 535 235 Balance 1365.9 328.4 - Medications Medications: Current Medications Acetaminophen (Tylenol 325mg Tab) 650 mg PO Q6 PRN PRN Reason: Fever >100.4 F Last Admin: 06/04/16 13:35 Dose: 650 mg Acetylcysteine (Acetylcysteine 20%) 4 ml PO BID [facility] Last Admin: 06/05/16 09:47 Dose: 4 ml Apixaban (Eliquis) 5 mg PO BID [facility] Last Admin: 06/05/16 09:48 Dose: 5 mg Aspirin (Aspirin Chewable) 81 mg PO DAILY [facility] Last Admin: 06/05/16 09:47 Dose: 81 mg Famotidine (Pepcid) 20 mg IVP DAILY [facility] Last Admin: 06/05/16 12:18 Dose: 20 mg Cefepime HCl (Maxipime Iv 1 Gm Premix) 50 mls @ 100 mls/hr IVPB Q12 [facility] Last Admin: 06/05/16 10:01 Dose: 100 mls/hr Aztreonam 1 gm/ Sodium (Chloride) 100 mls @ 100 mls/hr IVPB Q12H [facility] Last Admin: 06/05/16 09:47 Dose: 100 mls/hr Propofol (Diprivan) 100 mls @ 4.014 mls/hr IV .Q24H PRN; Protocol; 5 MCG/KG/MIN PRN Reason: TITRATE PER MD ORDER Last Admin: 06/05/16 13:15 Dose: 24.086 mls/hr Sodium Chloride (Sodium Chloride 0.9%) 1,000 mls @ 125 mls/hr IV .Q8H [facility] Last Admin: 06/05/16 08:32 Dose: 125 mls/hr Insulin Human Regular (Novolin R) 0 unit SC Q6H [facility] PRN Reason: Protocol Last Admin: 06/05/16 12:58 Dose: Not Given - Labs Labs: 06/05/16 06:28 06/05/16 06:28 PT 13.9 SECONDS (9.7-12.2) H 05/27/16 09:38 INR 1.2 05/27/16 09:38 APTT 65 SECONDS (21-34) H 05/29/16 10:50 - Constitutional Appears: No Acute Distress, Younger Than Stated Age - Head Exam Head Exam: NORMAL INSPECTION Additional comments: intubated, ogt, prevalon boots, morbid obesity - ENT Exam ENT Exam: Mucous Membranes Dry - Respiratory Exam Respiratory Exam: Decreased Breath Sounds, Rales. absent: Respiratory Distress Additional comments: on vent, intubated - Cardiovascular Exam Cardiovascular Exam: REGULAR RHYTHM, +S1, +S2 - GI/Abdominal Exam GI & Abdominal Exam: Distended, Soft, Normal Bowel Sounds. absent: Firm, Guarding, Rigid, Rebound Additional comments: obese habitus - Extremities Exam Extremities Exam: Pedal Edema (right lower extremity >left lower extremity), Tenderness (right lower extremitiy) - Neurological Exam Additional comments: on sedation - Skin Skin Exam: Dry, Normal Color, Rash (mild over right lower extremity), Warm. absent: Petechiae Assessment and Plan (1) Acute respiratory failure Status: Acute (2) Aspiration pneumonia Status: Acute (3) Sepsis Status: Acute (4) Leg edema, right Status: Acute (5) COPD (chronic obstructive pulmonary disease) Status: Chronic (6) Diabetes Status: Chronic (7) HTN (hypertension) Status: Chronic (8) Renal insufficiency Status: Chronic (9) Deep vein thrombophlebitis of right leg Status: Acute (10) Prophylactic measure Status: Acute - Assessment and Plan (Free Text) Assessment: Assessment/Plan 1) Acute respiratory failure * Intubated on 06/04/16 for "Code Blue" called on 06/04/16, patient did not lose pulse * Possible aspiration pneumonia vs less pulmonary embolus despite being on anticoagulation for extensive DVT right lower extremity * Unable to perform CT angio PE control secondary to chronic kidney disease * Chest xray (06/04/16): in site ett and apparent in situ NGT as aboove in distal aspect of the NGT is poorly delinated, cardiomegaly, pulmonary vascular oncgestive changes with bilateral lower love alveolar-type infiltrates and bilateral effusions * further management per ICU 2) Thrombosis of the R iliac and common femoral vein * 05/25/16 (Venous US Lower extremity B/L): no evidence of hemodynamically significant arterial insuffiency in the right lower extremity * 05/27/16 (Venous US lower extremity B/L): chronic 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 normal venous flow noted in the left common femoral vein * Prior to respiratory arrest on 06/04/16, patient was planned for thrombolysis for this upcoming Tuesday 06/06 * Heme-oncology (Dr. 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 Ortega) on board 3) Sepsis * Criteria admission: WBC: 43.8, HR>90, Cr> 2.0, platelets 103 and blood culture: Serattia from 05/25/16 * Now: Criteria: WBC: 25.5, Tmax: 102.1 bands>10, platelets normalized, Cr 2.0, chest xray for possible aspiration pneumonia pending new cultures * Urine culture: no growth * 05/27/16 Blood Venous: No growth After 5 days X2 * 05/27/16 Urine culture: no growth * 06/04/16 Blood Culture: No growth after 24 hours X2; gram pending * 06/04/16 Trach sputum: pending * 06/04/16 Urine culture: No growth * Infectious disease (Dr. Marsh) on board * Procalcitonin: 16.1 (05/26/16)--> 31.81 (05/27/16)-->ordered for new one * Aztreonam 1gram IV Q 12hours (active since 05/26/16) and Maxipime 1gram IV Q 12hours (active since 05/29/16) * Abd CT(05/28/16): bilateral inguinal lymphadenopathy, right greater than left. cirrhotic contour of liver. fatty atrophy of the pancreas, splenic atrophy w residula spleen, recitulation and edema seen in subcutanous soft tissues, cholelithiasis, consolidative changes at both lung bases which may represen underying infiltrate. * Ab US (05/28/16): enlarged liver with diffuse fatty infiltration, cholelithiasis, limited visualization of the pancreas * Echocardiogram (05/30/16): EF: 55-60% left ventricular ejection fraction is within normal range. left ventricular diastolic function is normal. trace to mild tricupsid regurgitation, PAP 35-45 mmgHG, mild pulmonary hypertension 4) Acute renal failure on Chronic Kidney disease with Nephrotic Syndrome * Nephrology (Dr. Rhoades) on board-->help appreciated * Dialysis consented by nephrology 06/04 if potassium does not respond to medical therapy and/or renal function not recover * NS 125 cc/hr (started 06/04/16) * Has dialysis catheter port placed on 06/04/16 by ICU * Monitor potassium levels 5) History of COPD/asthma * Former smoker, quit 5 years ago * currently intubated secondary to respiratory arrest secondary to likely pnuemonia * Chest xray (06/04/16): in site ett and apparent in situ NGT as aboove in distal aspect of the NGT is poorly delinated, cardiomegaly, pulmonary vascular congestive changes with bilateral lower love alveolar-type infiltrates and bilateral effusions 6) History of Congestive Heart failure * 01/2016 ECHO- LV EF 60-65%, mild pulmonary HTN (see full report) * Echocardiogram (05/30/16): EF: 55-60% left ventricular ejection fraction is within normal range. left ventricular diastolic function is normal. trace to mild tricupsid regurgitation, PAP 35-45 mmgHG, mild pulmonary hypertension * off Crestor secondary to elevated BUN/Cr * off beta asmita secondary to acute respiratory failure; hx of copd se worsening bronchospasm * Aspirin 81mg PO daily 7)Diabetes Mellitus * Accuchecks Q6 hours * Novolin sliding scale subq 6hours * Diabetic source 20cc/hr via OGT * ordered for [id number] * Prior a1c shows uncontrolled 8) History of Hypertension * Off antihypertensives 9) Hx of Nonstemi * January 2016 hospitalization * No cardiac cath * Hx of CHF 10) Prophylactic measures - SCDs contraindicated due to DVT - Eliquis 5mg PO BID for DVT Right LE - Pepcid 20mg PO daily for GI ppx - NS 125 cc/hr - Tube feedings - PT/OT
--- NOTE | 2016-06-05 19:03 | CP.CCUPN ---
CCU Subjective - Physician Review Events Since Last Encounter (Free Text): 06/05/16 18:56 intubated and sedated on vent, clinically stable. CCU Objective - Vital Signs / Intake & Output Vital Signs (Last 4 hours): Vital Signs Temp Pulse Resp BP Pulse Ox 06/05/16 18:06 88 24 116/68 96 06/05/16 18:00 86 24 97 06/05/16 17:40 86 24 106/63 97 06/05/16 17:34 86 24 97 06/05/16 17:06 89 18 124/78 96 06/05/16 17:00 93 H 21 96 06/05/16 16:16 88 24 97 06/05/16 16:06 87 24 110/64 97 06/05/16 16:00 98.9 F 88 24 97 06/05/16 15:36 89 24 97 06/05/16 15:06 92 H 24 101/60 96 06/05/16 15:00 91 H 24 96 Intake and Output (Last 8hrs): Intake & Output 06/05/16 06/05/16 06/05/16 06:59 14:59 22:59 Intake Total 1160.8 1159.8 818.4 Output Total 390 595 335 Balance 770.8 564.8 483.4 Intake: IV 0 Intake, IV Amount 1160.8 1159.8 628.4 Right Antecubital 160.8 184.8 128.4 Left Femoral 1000 975 500 Tube Feeding 40 Other 150 Output: Urine 390 595 335 Urethral (Ruiz) 390 595 335 Other: # Bowel Movements 0 0 0 - Physical Exam Head: Positive for: Atraumatic, Normocephalic Mouth: Positive for: Moist Mucous Membranes Respiratory/Chest: Positive for: Clear to Auscultation Cardiovascular: Positive for: Regular Rate and Rhythm Abdomen: Positive for: Normal Bowel Sounds. Negative for: Tenderness, Distention Other physical findings (Free Text): sedated - Medications Active Medications: Active Medications Generic Name Dose Route Start Last Admin Trade Name Freq PRN Reason Stop Dose Admin Acetaminophen 650 mg 06/04/16 00:38 06/04/16 13:35 Tylenol 325mg Tab PO 650 mg Q6 PRN Administration Fever >100.4 F Acetylcysteine 4 ml 06/04/16 00:01 03/19/17 17:09 Acetylcysteine 20% PO 4 ml BID ANABELLA Administration Apixaban 5 mg 06/05/16 10:00 06/05/16 17:09 Eliquis PO 5 mg BID ANABELLA Administration Aspirin 81 mg 05/26/16 10:00 06/05/16 09:47 Aspirin Chewable PO 81 mg DAILY ANABELLA Administration Famotidine 20 mg 06/04/16 11:45 06/05/16 12:18 Pepcid IVP 20 mg DAILY ANABELLA Administration Cefepime HCl 50 mls @ 100 mls/hr 05/31/16 22:00 06/05/16 10:01 Maxipime Iv 1 Gm Premix IVPB 100 mls/hr Q12 ANABELLA Administration Aztreonam 1 gm/ Sodium 100 mls @ 100 mls/hr 06/04/16 10:00 06/05/16 09:47 Chloride IVPB 100 mls/hr Q12H ANABELLA Administration Propofol 100 mls @ 4.014 mls/hr 06/04/16 11:48 06/05/16 18:47 Diprivan IV 30 mcg/kg/min .Q24H PRN Titration TITRATE PER MD ORDER Protocol 5 MCG/KG/MIN Sodium Chloride 1,000 mls @ 125 mls/hr 06/04/16 16:45 06/05/16 17:07 Sodium Chloride 0.9% IV 125 mls/hr .Q8H ANABELLA Administration Insulin Human Regular 0 unit 06/04/16 18:00 06/05/16 18:02 Novolin R SC Not Given Q6H [facility] Protocol - Patient Studies Lab Studies: Microbiology Studies 06/04/16 16:47 Blood Culture - Preliminary Blood-Thru Central Line NO GROWTH AFTER 24 HOURS 06/04/16 16:47 Blood Culture - Preliminary Blood-Thru Central Line NO GROWTH AFTER 24 HOURS 06/04/16 16:47 Gram Stain - Final Trachasp Sputum Culture - Preliminary 06/04/16 16:47 Urine Culture - Final Urine,Catheterized No Growth (<1,000 CFU/ML) Lab Studies 06/05/16 06/05/16 06/05/16 Range/Units 17:59 12:33 06:28 WBC 25.5 H D (4.8-10.8) K/uL RBC 4.16 L (4.40-5.90) Mil/uL Hgb 11.8 L D (12.0-18.0) g/dL Hct 37.4 (35.0-51.0) % MCV 89.9 (80.0-94.0) fL MCH 28.4 (27.0-31.0) pg MCHC 31.6 L (33.0-37.0) g/dL RDW 16.3 H (11.5-14.5) % Plt Count 174 (130-400) K/uL MPV 10.9 (7.2-11.7) fL Neut % (Auto) 86.4 H (50.0-75.0) % Lymph % (Auto) 4.5 L (20.0-40.0) % [place] % (Auto) 7.5 (0.0-10.0) % Eos % (Auto) 1.0 (0.0-4.0) % Baso % (Auto) 0.6 (0.0-2.0) % Neut # 22.0 H (1.8-7.0) K/uL Lymph # 1.1 (1.0-4.3) K/uL [place] # 1.9 H (0.0-0.8) K/uL Eos # 0.3 (0.0-0.7) K/uL Baso # 0.2 (0.0-0.2) K/uL Neutrophils % (Manual) 75 (50-75) % Band Neutrophils % 14 H* (0-2) % Lymphocytes % (Manual) 5 L (20-40) % Monocytes % (Manual) 6 (0-10) % Toxic Granulation Present Platelet Estimate Normal (NORMAL) Large Platelets Present Hypochromasia (manual) Slight Poikilocytosis (manual Slight Anisocytosis (manual) Slight Puncture Site pCO2 (35-45) mm/Hg pO2 (80-100) mm/Hg HCO3 (21-28) mmol/L ABG pH (7.35-7.45) ABG Total CO2 (22-28) mmol/L ABG O2 Saturation (95-98) % ABG Base Excess (-2.0-3.0) mmol/L ABG Hemoglobin (11.7-17.4) g/dL ABG Carboxyhemoglobin (0.5-1.5) % POC ABG HHb (Measured) (0.0-5.0) % ABG Methemoglobin (0.0-3.0) % Philippe Test A-a O2 Difference mm/Hg Respiratory Index Hgb O2 Saturation (95.0-98.0) % Mechanical Rate FiO2 % Tidal Volume PEEP Sodium 133 (132-148) mmol/L Potassium 5.3 H (3.6-5.2) mmol/L Chloride 103 (98-107) mmol/L Carbon Dioxide 24 (22-30) mmol/L Anion Gap 11 (10-20) BUN 63 H (9-20) mg/dL Creatinine 2.9 H (0.8-1.5) MG/DL Est GFR ( Amer) 28 Est GFR (Non-Af Amer) 24 POC Glucose (mg/dL) 127 H 136 H (65-110) mg/dL Random Glucose 133 H (75-110) mg/dL Calcium 7.3 L (8.6-10.4) mg/dl Phosphorus 5.5 H (2.5-4.5) mg/dL Magnesium 1.8 (1.6-2.3) mg/dL Total Bilirubin 0.5 (0.2-1.3) mg/dL AST 42 (17-59) U/L ALT 47 (21-72) U/L Alkaline Phosphatase 279 H D (38-126) U/L Total Protein 5.3 L (6.3-8.3) g/dL Albumin 2.3 L (3.5-5.0) g/dL Globulin 3.0 (2.2-3.9) gm/dL Albumin/Globulin Ratio 0.8 L (1.0-2.1) 06/05/16 06/05/16 06/04/16 Range/Units 05:20 05:07 23:44 WBC (4.8-10.8) K/uL RBC (4.40-5.90) Mil/uL Hgb (12.0-18.0) g/dL Hct (35.0-51.0) % MCV (80.0-94.0) fL MCH (27.0-31.0) pg MCHC (33.0-37.0) g/dL RDW (11.5-14.5) % Plt Count (130-400) K/uL MPV (7.2-11.7) fL Neut % (Auto) (50.0-75.0) % Lymph % (Auto) (20.0-40.0) % [place] % (Auto) (0.0-10.0) % Eos % (Auto) (0.0-4.0) % Baso % (Auto) (0.0-2.0) % Neut # (1.8-7.0) K/uL Lymph # (1.0-4.3) K/uL [place] # (0.0-0.8) K/uL Eos # (0.0-0.7) K/uL Baso # (0.0-0.2) K/uL Neutrophils % (Manual) (50-75) % Band Neutrophils % (0-2) % Lymphocytes % (Manual) (20-40) % Monocytes % (Manual) (0-10) % Toxic Granulation Platelet Estimate (NORMAL) Large Platelets Hypochromasia (manual) Poikilocytosis (manual Anisocytosis (manual) Puncture Site Rr pCO2 54 H (35-45) mm/Hg pO2 170 H (80-100) mm/Hg HCO3 21.8 (21-28) mmol/L ABG pH 7.25 L (7.35-7.45) ABG Total CO2 25.4 (22-28) mmol/L ABG O2 Saturation 99.5 H (95-98) % ABG Base Excess -4.0 L (-2.0-3.0) mmol/L ABG Hemoglobin 11.6 L (11.7-17.4) g/dL ABG Carboxyhemoglobin 1.5 (0.5-1.5) % POC ABG HHb (Measured) 0.5 (0.0-5.0) % ABG Methemoglobin 1.3 (0.0-3.0) % Philippe Test Pos A-a O2 Difference 476.0 mm/Hg Respiratory Index 2.8 Hgb O2 Saturation 96.7 (95.0-98.0) % Mechanical Rate 20 FiO2 100.0 % Tidal Volume 500 PEEP 5 Sodium (132-148) mmol/L Potassium (3.6-5.2) mmol/L Chloride (98-107) mmol/L Carbon Dioxide (22-30) mmol/L Anion Gap (10-20) BUN (9-20) mg/dL Creatinine (0.8-1.5) MG/DL Est GFR ( Amer) Est GFR (Non-Af Amer) POC Glucose (mg/dL) 159 H 170 H (65-110) mg/dL Random Glucose (75-110) mg/dL Calcium (8.6-10.4) mg/dl Phosphorus (2.5-4.5) mg/dL Magnesium (1.6-2.3) mg/dL Total Bilirubin (0.2-1.3) mg/dL AST (17-59) U/L ALT (21-72) U/L Alkaline Phosphatase (38-126) U/L Total Protein (6.3-8.3) g/dL Albumin (3.5-5.0) g/dL Globulin (2.2-3.9) gm/dL Albumin/Globulin Ratio (1.0-2.1) /18/17 Range/Units 22:34 WBC (4.8-10.8) K/uL RBC (4.40-5.90) Mil/uL Hgb (12.0-18.0) g/dL Hct (35.0-51.0) % MCV (80.0-94.0) fL MCH (27.0-31.0) pg MCHC (33.0-37.0) g/dL RDW (11.5-14.5) % Plt Count (130-400) K/uL MPV (7.2-11.7) fL Neut % (Auto) (50.0-75.0) % Lymph % (Auto) (20.0-40.0) % [place] % (Auto) (0.0-10.0) % Eos % (Auto) (0.0-4.0) % Baso % (Auto) (0.0-2.0) % Neut # (1.8-7.0) K/uL Lymph # (1.0-4.3) K/uL [place] # (0.0-0.8) K/uL Eos # (0.0-0.7) K/uL Baso # (0.0-0.2) K/uL Neutrophils % (Manual) (50-75) % Band Neutrophils % (0-2) % Lymphocytes % (Manual) (20-40) % Monocytes % (Manual) (0-10) % Toxic Granulation Platelet Estimate (NORMAL) Large Platelets Hypochromasia (manual) Poikilocytosis (manual Anisocytosis (manual) Puncture Site pCO2 (35-45) mm/Hg pO2 (80-100) mm/Hg HCO3 (21-28) mmol/L ABG pH (7.35-7.45) ABG Total CO2 (22-28) mmol/L ABG O2 Saturation (95-98) % ABG Base Excess (-2.0-3.0) mmol/L ABG Hemoglobin (11.7-17.4) g/dL ABG Carboxyhemoglobin (0.5-1.5) % POC ABG HHb (Measured) (0.0-5.0) % ABG Methemoglobin (0.0-3.0) % Philippe Test A-a O2 Difference mm/Hg Respiratory Index Hgb O2 Saturation (95.0-98.0) % Mechanical Rate FiO2 % Tidal Volume PEEP Sodium 132 (132-148) mmol/L Potassium 5.5 H (3.6-5.2) mmol/L Chloride 100 (98-107) mmol/L Carbon Dioxide 25 (22-30) mmol/L Anion Gap 13 (10-20) BUN 59 H (9-20) mg/dL Creatinine 2.7 H (0.8-1.5) MG/DL Est GFR ( Amer) 31 Est GFR (Non-Af Amer) 26 POC Glucose (mg/dL) (65-110) mg/dL Random Glucose 153 H (75-110) mg/dL Calcium 7.3 L (8.6-10.4) mg/dl Phosphorus (2.5-4.5) mg/dL Magnesium (1.6-2.3) mg/dL Total Bilirubin (0.2-1.3) mg/dL AST (17-59) U/L ALT (21-72) U/L Alkaline Phosphatase (38-126) U/L Total Protein (6.3-8.3) g/dL Albumin (3.5-5.0) g/dL Globulin (2.2-3.9) gm/dL Albumin/Globulin Ratio (1.0-2.1) Laboratory Results - last 24 hr 06/04/16 06/04/16 06/05/16 22:34 23:44 05:07 WBC RBC Hgb Hct MCV MCH MCHC RDW Plt Count MPV Neut % (Auto) Lymph % (Auto) [place] % (Auto) Eos % (Auto) Baso % (Auto) Neut # Lymph # [place] # Eos # Baso # Neutrophils % (Manual) Band Neutrophils % Lymphocytes % (Manual) Monocytes % (Manual) Toxic Granulation Platelet Estimate Large Platelets Hypochromasia (manual) Poikilocytosis (manual Anisocytosis (manual) Puncture Site Rr pCO2 54 H pO2 170 H HCO3 21.8 ABG pH 7.25 L ABG Total CO2 25.4 ABG O2 Saturation 99.5 H ABG Base Excess -4.0 L ABG Hemoglobin 11.6 L ABG Carboxyhemoglobin 1.5 POC ABG HHb (Measured) 0.5 ABG Methemoglobin 1.3 Philippe Test Pos A-a O2 Difference 476.0 Respiratory Index 2.8 Hgb O2 Saturation 96.7 Mechanical Rate 20 FiO2 100.0 Tidal Volume 500 PEEP 5 Sodium 132 Potassium 5.5 H Chloride 100 Carbon Dioxide 25 Anion Gap 13 BUN 59 H Creatinine 2.7 H Est GFR ( Amer) 31 Est GFR (Non-Af Amer) 26 POC Glucose (mg/dL) 170 H Random Glucose 153 H Calcium 7.3 L Phosphorus Magnesium Total Bilirubin AST ALT Alkaline Phosphatase Total Protein Albumin Globulin Albumin/Globulin Ratio 06/05/16 06/05/16 06/05/16 05:20 06:28 12:33 WBC 25.5 H D RBC 4.16 L Hgb 11.8 L D Hct 37.4 MCV 89.9 MCH 28.4 MCHC 31.6 L RDW 16.3 H Plt Count 174 MPV 10.9 Neut % (Auto) 86.4 H Lymph % (Auto) 4.5 L [place] % (Auto) 7.5 Eos % (Auto) 1.0 Baso % (Auto) 0.6 Neut # 22.0 H Lymph # 1.1 [place] # 1.9 H Eos # 0.3 Baso # 0.2 Neutrophils % (Manual) 75 Band Neutrophils % 14 H* Lymphocytes % (Manual) 5 L Monocytes % (Manual) 6 Toxic Granulation Present Platelet Estimate Normal Large Platelets Present Hypochromasia (manual) Slight Poikilocytosis (manual Slight Anisocytosis (manual) Slight Puncture Site pCO2 pO2 HCO3 ABG pH ABG Total CO2 ABG O2 Saturation ABG Base Excess ABG Hemoglobin ABG Carboxyhemoglobin POC ABG HHb (Measured) ABG Methemoglobin Philippe Test A-a O2 Difference Respiratory Index Hgb O2 Saturation Mechanical Rate FiO2 Tidal Volume PEEP Sodium 133 Potassium 5.3 H Chloride 103 Carbon Dioxide 24 Anion Gap 11 BUN 63 H Creatinine 2.9 H Est GFR ( Amer) 28 Est GFR (Non-Af Amer) 24 POC Glucose (mg/dL) 159 H 136 H Random Glucose 133 H Calcium 7.3 L Phosphorus 5.5 H Magnesium 1.8 Total Bilirubin 0.5 AST 42 ALT 47 Alkaline Phosphatase 279 H D Total Protein 5.3 L Albumin 2.3 L Globulin 3.0 Albumin/Globulin Ratio 0.8 L 06/05/16 17:59 WBC RBC Hgb Hct MCV MCH MCHC RDW Plt Count MPV Neut % (Auto) Lymph % (Auto) [place] % (Auto) Eos % (Auto) Baso % (Auto) Neut # Lymph # [place] # Eos # Baso # Neutrophils % (Manual) Band Neutrophils % Lymphocytes % (Manual) Monocytes % (Manual) Toxic Granulation Platelet Estimate Large Platelets Hypochromasia (manual) Poikilocytosis (manual Anisocytosis (manual) Puncture Site pCO2 pO2 HCO3 ABG pH ABG Total CO2 ABG O2 Saturation ABG Base Excess ABG Hemoglobin ABG Carboxyhemoglobin POC ABG HHb (Measured) ABG Methemoglobin Philippe Test A-a O2 Difference Respiratory Index Hgb O2 Saturation Mechanical Rate FiO2 Tidal Volume PEEP Sodium Potassium Chloride Carbon Dioxide Anion Gap BUN Creatinine Est GFR ( Amer) Est GFR (Non-Af Amer) POC Glucose (mg/dL) 127 H Random Glucose Calcium Phosphorus Magnesium Total Bilirubin AST ALT Alkaline Phosphatase Total Protein Albumin Globulin Albumin/Globulin Ratio Fingerstick Blood Sugar Results: 127 Review of Systems - Review of Systems Systems not reviewed;Unavailable: Intubated Critical Care Progress Note - Ventilator Checklist Head of Bed 30 Degrees: Yes Daily Sedation Vacation: Yes Daily Assessment of Readiness to Wean: Yes Daily Spontaneous Breathing Trial: Yes PUD Prophalyxis: Yes DVT Prophylaxis: Yes - Nutrition Nutrition: Nutrition Category Date Time Status Heart Healthy Diet [DIET] Diets 05/25/16 Dinner Active NPO Diet [DIET] Diets 06/06/16 Breakfast Active Assessment/Plan (1) Acute respiratory failure Assessment and plan: 45 year old male with PMHx of COPD, asthma, DM, HN, DVT in RLE, NSTEMI in 2015, gallstones, liver cirrhosis, and CKD presents with complaint of aright LE pain and swelling. Pt recently was admitted to [facility] and found to have a DVT in his right lower extremity and discharged on Xarelto. Repeat venous doppler is consistent with extensive right femoral and iliac vein DVT. This morning Annamaria Nelson was called on due to pt. being unresponsive. Chest compressions were started. Patient intubated and transferred to intensive care unit. Neuro: Sedated with propofol, stopping propofol, continues Versed when necessary pushes if needed. Pulm: Acute respiratory failure with hypercarbia and hypoxia requiring intubation (06/04/16), patient most likely has obesity hypoventilation and possibly obstructive sleep apnea, known history of asthma we'll start steroids. respiratory acidosis, increasing respiratory rate, decreasing FiO2. CV: Hemodynamically stable Hem: Lower extremity DVT now on Eliquis Renal: Respiratory acidosis, hyperkalemia slowly improving, patient getting Kayexalate. Endo: DM type II, on short acting sliding scale for coverage GI: Nothing by mouth, starting DiaBetisource at 20. ID: Empiric coverage with aztreonam and cefepime. DVT proph - Eliquis GI proph - Alvarez ruiz for strict I/O's during acute illness Code status - full code Crtical Care Time spent 35 minutes Multi-disciplinary rounds were performed with house staff, nursing, speech therapy, respiratory therapy, pharmacy and nutrition with integrated input from the primary team/attending and other consulting services. The documented time is cumulative and includes review of patient data/exams/labs/chart review and examination of the patient on rounds and throughout the day; time is exclusive of any procedures or teaching time. Current Visit: Yes Status: Acute
[2016-06-05] MEDS: MethylPREDNISolone 40 mg Vial IV SCH ×2 (19:34→22:00)
--- NOTE | 2016-06-05 21:22 | CP.PCM.PN ---
Subjective - Date & Time of Evaluation Date of Evaluation: 06/05/16 Time of Evaluation: 20:00 - Subjective Subjective: Vented Objective - Vital Signs/Intake and Output Vital Signs (last 24 hours): Temp Pulse Resp BP Pulse Ox 99.8 F H 99 H 26 H 119/70 94 L 06/05/16 20:00 06/05/16 21:00 06/05/16 21:00 06/05/16 21:06 06/05/16 21:00 Intake and Output: 06/05/16 06/06/16 18:59 06:59 Intake Total 1978.2 681.3 Output Total 930 255 Balance 1048.2 426.3 - Medications Medications: Current Medications Acetaminophen (Tylenol 325mg Tab) 650 mg PO Q6 PRN PRN Reason: Fever >100.4 F Last Admin: 06/04/16 13:35 Dose: 650 mg Acetylcysteine (Acetylcysteine 20%) 4 ml PO BID [facility] Last Admin: 06/05/16 17:09 Dose: 4 ml Albuterol/Ipratropium (Duoneb 3 Mg/0.5 Mg (3 Ml) Ud) 3 ml INH RQ6 ANABELLA Apixaban (Eliquis) 5 mg PO BID [facility] Last Admin: 06/05/16 17:09 Dose: 5 mg Aspirin (Aspirin Chewable) 81 mg PO DAILY [facility] Last Admin: 06/05/16 09:47 Dose: 81 mg Famotidine (Pepcid) 20 mg IVP DAILY [facility] Last Admin: 06/05/16 12:18 Dose: 20 mg Cefepime HCl (Maxipime Iv 1 Gm Premix) 50 mls @ 100 mls/hr IVPB Q12 ANABELLA Last Admin: 06/05/16 10:01 Dose: 100 mls/hr Aztreonam 1 gm/ Sodium (Chloride) 100 mls @ 100 mls/hr IVPB Q12H [facility] Last Admin: 06/05/16 09:47 Dose: 100 mls/hr Propofol (Diprivan) 100 mls @ 4.014 mls/hr IV .Q24H PRN; Protocol; 5 MCG/KG/MIN PRN Reason: TITRATE PER MD ORDER Last Admin: 06/05/16 19:51 Dose: 32.114 mls/hr Sodium Chloride (Sodium Chloride 0.9%) 1,000 mls @ 125 mls/hr IV .Q8H [facility] Last Admin: 06/05/16 17:07 Dose: 125 mls/hr Insulin Human Regular (Novolin R) 0 unit SC Q6H [facility] PRN Reason: Protocol Last Admin: 06/05/16 18:02 Dose: Not Given Methylprednisolone (Solu-Medrol) 40 mg IV Q12 [facility] Last Admin: 06/05/16 19:34 Dose: 40 mg - Labs Labs: 06/05/16 06:28 06/05/16 06:28 PT 13.9 SECONDS (9.7-12.2) H 05/27/16 09:38 INR 1.2 05/27/16 09:38 APTT 65 SECONDS (21-34) H 05/29/16 10:50 - Head Exam Head Exam: ATRAUMATIC - ENT Exam ENT Exam: Mucous Membranes Dry - Respiratory Exam Respiratory Exam: Decreased Breath Sounds - Cardiovascular Exam Cardiovascular Exam: +S1, +S2 - GI/Abdominal Exam GI & Abdominal Exam: Normal Bowel Sounds - Extremities Exam Extremities Exam: Pedal Edema Assessment and Plan (1) Deep venous thrombosis of lower extremity Assessment & Plan: recurrent has multiple antiphospholipid Ab positivity Nephrotic syndrome; 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
[2016-06-05] MEDS: Albuterol-Ipratrop 3 mg / 0.5 (3 ml) UD INH SCH (23:06)
[2016-06-06] MEDS: (Novolin R) Insulin Human Regular 100 units/ml vial SC SCH ×4 (00:02→18:28)
[2016-06-06] MEDS: Albuterol-Ipratrop 3 mg / 0.5 (3 ml) UD INH SCH ×4 (01:17→19:57)
[2016-06-06] MEDS: Sodium Chloride 0.9% 1,000 ML IV SCH ×4 (01:58→18:29)
[2016-06-06 05:48] LABS: ABG ALLEN TEST POS; ABG MECHANICAL RATE 24; ARTERIAL BLOOD HGB O2 SAT 95.6 % (95.0-98.0); ATERIAL BLOOD GAS PEEP 9; CARBOXYHEMOGLOBIN 1.8 % (0.5-1.5); DRAW SITE RR; HHB 1.5 % (0.0-5.0); METHEMOGLOBIN 1.1 % (0.0-3.0)
[2016-06-06 06:39] LABS: BASO # 0.1 K/uL (0.0-0.2); BASO % 0.7 % (0.0-2.0); EOS # 0.1 K/uL (0.0-0.7); EOS % 0.5 % (0.0-4.0); HEMATOCRIT 37.8 % (35.0-51.0); LYMPH # 0.7 K/uL (1.0-4.3); MEAN CELL VOLUME 89.7 fL (80.0-94.0); MEAN CORPUSCULAR HEMOGLOBIN 28.4 pg (27.0-31.0); MEAN CORPUSCULAR HGB CONC 31.7 g/dL (33.0-37.0); MEAN PLATELET VOLUME 11.2 fL (7.2-11.7); MONO # 0.4 K/uL (0.0-0.8); MONO % 2.8 % (0.0-10.0); NRBC % 0.1 % (0.0-2.0); PLATELET COUNT 231 K/uL (130-400); RED CELL DISTRIBUTION WIDTH 16.7 % (11.5-14.5); WHITE BLOOD COUNT 14.7 K/uL (4.8-10.8)
[2016-06-06 06:41] LABS: POTASSIUM 4.9 mmol/L (3.6-5.2)
[2016-06-06 06:43] LABS: ALB/GLOB RATIO 0.9 (1.0-2.1); BILIRUBIN,TOTAL 0.8 mg/dL (0.2-1.3); TOTAL PROTEIN 5.3 g/dL (6.3-8.3)
[2016-06-06 06:44] LABS: CALCIUM 7.3 mg/dl (8.6-10.4); MAGNESIUM 1.9 mg/dL (1.6-2.3); PHOSPHOROUS 5.6 mg/dL (2.5-4.5)
--- NOTE | 2016-06-06 08:29 | CP.PCM.PN ---
Subjective - Date & Time of Evaluation Date of Evaluation: 06/06/16 Time of Evaluation: 08:29 - Subjective Subjective: PGY-1 note for General Surgery, Dr. Ortega PT S&E. Patient intubated and on mechanical ventilation. On sedation due to agitation unable to review ROS given clinical state. Objective - Vital Signs/Intake and Output Vital Signs (last 24 hours): Temp Pulse Resp BP Pulse Ox 98.3 F 83 23 135/72 94 L 06/06/16 04:00 06/06/16 07:06 06/06/16 07:06 06/06/16 07:06 06/06/16 07:06 Intake and Output: 06/06/16 06/06/16 06:59 18:59 Intake Total 2566.4 203.5 Output Total 1230 75 Balance 1336.4 128.5 - Medications Medications: Current Medications Acetaminophen (Tylenol 325mg Tab) 650 mg PO Q6 PRN PRN Reason: Fever >100.4 F Last Admin: 06/04/16 13:35 Dose: 650 mg Acetylcysteine (Acetylcysteine 20%) 4 ml PO BID [facility] Last Admin: 06/05/16 17:09 Dose: 4 ml Albuterol/Ipratropium (Duoneb 3 Mg/0.5 Mg (3 Ml) Ud) 3 ml INH RQ6 [facility] Last Admin: 06/06/16 07:43 Dose: 3 ml Apixaban (Eliquis) 5 mg PO BID [facility] Last Admin: 06/05/16 17:09 Dose: 5 mg Aspirin (Aspirin Chewable) 81 mg PO DAILY [facility] Last Admin: 06/05/16 09:47 Dose: 81 mg Famotidine (Pepcid) 20 mg IVP DAILY [facility] Last Admin: 06/05/16 12:18 Dose: 20 mg Aztreonam 1 gm/ Sodium (Chloride) 100 mls @ 100 mls/hr IVPB Q12H [facility] Last Admin: 06/05/16 21:42 Dose: 100 mls/hr Sodium Chloride (Sodium Chloride 0.9%) 1,000 mls @ 125 mls/hr IV .Q8H [facility] Last Admin: 06/06/16 01:58 Dose: 125 mls/hr Propofol (Diprivan) 100 mls @ 4.817 mls/hr IV .[id number] PRN; Protocol; 5 MCG/KG/ MIN PRN Reason: TITRATE PER MD ORDER Last Admin: 06/06/16 08:01 Dose: 38.537 mls/hr Insulin Human Regular (Novolin R) 0 unit SC Q6H ANABELLA PRN Reason: Protocol Last Admin: 06/06/16 05:44 Dose: 2 unit Methylprednisolone (Solu-Medrol) 40 mg IV Q12 [facility] Last Admin: 06/05/16 22:00 Dose: Not Given - Labs Labs: 06/06/16 06:17 06/06/16 06:17 PT 13.9 SECONDS (9.7-12.2) H 05/27/16 09:38 INR 1.2 05/27/16 09:38 APTT 65 SECONDS (21-34) H 05/29/16 10:50 - Constitutional Appears: Chronically Ill - Head Exam Head Exam: ATRAUMATIC, NORMOCEPHALIC - Eye Exam Eye Exam: EOMI - ENT Exam ENT Exam: Mucous Membranes Dry - Respiratory Exam Additional comments: pt intubated and on mechanical ventilation - GI/Abdominal Exam GI & Abdominal Exam: Soft - Extremities Exam Extremities Exam: Pedal Edema - Neurological Exam Neurological Exam: absent: Alert, Awake, Oriented x3 - Skin Skin Exam: Normal Color, Warm Assessment and Plan - Assessment and Plan (Free Text) Assessment: Thrombolysis postponed, will reschedule when pt clinical status improves
[2016-06-06 08:42] LABS: EOSINOPHIL 2 % (0-4); NEUTROPHIL 76 % (50-75); TOTAL CELLS COUNTED 100
--- NOTE | 2016-06-06 08:45 | CP.CCUPN ---
CCU Subjective - Physician Review Subjective (Free Text): 06/06/16 15:56 Pt seen and examined. He is intubated and sedated at this time. Patient family friend present bedside. No acute events overnight per nursing. An ROS could nto be obtained at this time due to patient's clinical status. CCU Objective - Vital Signs / Intake & Output Vital Signs (Last 4 hours): Vital Signs Pulse Resp BP Pulse Ox 06/06/16 07:06 83 23 135/72 94 L 06/06/16 07:00 73 24 95 06/06/16 06:06 114/62 06/06/16 06:00 80 24 94 L 06/06/16 05:06 78 24 119/69 96 06/06/16 05:00 79 24 96 06/06/16 04:55 79 24 121/71 95 Intake and Output (Last 8hrs): Intake & Output 06/05/16 06/06/16 06/06/16 22:59 06:59 14:59 Intake Total 1776.8 1608.0 203.5 Output Total 640 925 75 Balance 1136.8 683.0 128.5 Weight 354 lb 5 oz Intake: Intake, IV Amount 1406.8 1308.0 163.5 Right Antecubital 256.8 308.0 38.5 Left Femoral 1150 1000 125 Tube Feeding 120 300 40 Other 250 Output: Urine 640 925 75 Urethral (Campbell) 640 925 75 Other: # Bowel Movements 0 0 - Physical Exam Head: Positive for: Atraumatic, Normocephalic Pupils: Positive for: PERRL Conjunctiva: Positive for: Normal Mouth: Positive for: Moist Mucous Membranes Respiratory/Chest: Positive for: Clear to Auscultation Cardiovascular: Positive for: Regular Rate and Rhythm Abdomen: Positive for: Normal Bowel Sounds. Negative for: Tenderness, Distention Upper Extremity: Positive for: Edema Lower Extremity: Positive for: Edema, Swelling, Erythema Skin: Positive for: Warm, Dry - Medications Active Medications: Active Medications Generic Name Dose Route Start Last Admin Trade Name Freq PRN Reason Stop Dose Admin Acetaminophen 650 mg 06/04/16 00:38 06/04/16 13:35 Tylenol 325mg Tab PO 650 mg Q6 PRN Administration Fever >100.4 F Acetylcysteine 4 ml 06/04/16 00:01 06/05/16 17:09 Acetylcysteine 20% PO 4 ml BID ANABELLA Administration Albuterol/Ipratropium 3 ml 06/05/16 20:00 06/06/16 07:43 Duoneb 3 Mg/0.5 Mg (3 Ml) Ud INH 3 ml RQ6 ANABELLA Administration Apixaban 5 mg 06/05/16 10:00 06/05/16 17:09 Eliquis PO 5 mg BID ANABELLA Administration Aspirin 81 mg 05/26/16 10:00 06/05/16 09:47 Aspirin Chewable PO 81 mg DAILY ANABELLA Administration Famotidine 20 mg 06/04/16 11:45 06/05/16 12:18 Pepcid IVP 20 mg DAILY ANABELLA Administration Aztreonam 1 gm/ Sodium 100 mls @ 100 mls/hr 06/04/16 10:00 06/05/16 21:42 Chloride IVPB 100 mls/hr Q12H ANABELLA Administration Sodium Chloride 1,000 mls @ 125 mls/hr 06/04/16 16:45 06/06/16 01:58 Sodium Chloride 0.9% IV 125 mls/hr .Q8H ANABELLA Administration Propofol 100 mls @ 4.817 mls/hr 06/05/16 22:46 06/06/16 08:01 Diprivan IV 38.537 mls/hr .[id number] PRN Administration TITRATE PER MD ORDER Protocol 5 MCG/KG/MIN Insulin Human Regular 0 unit 06/04/16 18:00 06/06/16 05:44 Novolin R SC 2 unit Q6H ANABELLA Administration Protocol Methylprednisolone 40 mg 06/05/16 19:15 06/05/16 22:00 Solu-Medrol IV Not Given Q12 ANABELLA - Patient Studies Lab Studies: Microbiology Studies 06/04/16 16:47 Blood Culture - Preliminary Blood-Thru Central Line NO GROWTH AFTER 24 HOURS 06/04/16 16:47 Blood Culture - Preliminary Blood-Thru Central Line NO GROWTH AFTER 24 HOURS 06/04/16 16:47 Gram Stain - Final Trachasp Sputum Culture - Preliminary 06/04/16 16:47 Urine Culture - Final Urine,Catheterized No Growth (<1,000 CFU/ML) Lab Studies 06/06/16 06/06/16 06/06/16 Range/Units 06:17 05:11 05:08 WBC 14.7 H (4.8-10.8) K/uL RBC 4.22 L (4.40-5.90) Mil/uL Hgb 12.0 (12.0-18.0) g/dL Hct 37.8 (35.0-51.0) % MCV 89.7 (80.0-94.0) fL MCH 28.4 (27.0-31.0) pg MCHC 31.7 L (33.0-37.0) g/dL RDW 16.7 H (11.5-14.5) % Plt Count 231 (130-400) K/uL MPV 11.2 (7.2-11.7) fL Neut % (Auto) 91.0 H (50.0-75.0) % Lymph % (Auto) 5.0 L (20.0-40.0) % [place] % (Auto) 2.8 (0.0-10.0) % Eos % (Auto) 0.5 (0.0-4.0) % Baso % (Auto) 0.7 (0.0-2.0) % Neut # 13.4 H (1.8-7.0) K/uL Lymph # 0.7 L (1.0-4.3) K/uL [place] # 0.4 (0.0-0.8) K/uL Eos # 0.1 (0.0-0.7) K/uL Baso # 0.1 (0.0-0.2) K/uL Neutrophils % (Manual) 76 H (50-75) % Band Neutrophils % 16 H* (0-2) % Lymphocytes % (Manual) 4 L (20-40) % Monocytes % (Manual) 2 (0-10) % Eosinophils % (Manual) 2 (0-4) % Toxic Granulation Platelet Estimate Normal (NORMAL) Large Platelets Polychromasia Slight Hypochromasia (manual) Poikilocytosis (manual Anisocytosis (manual) Slight Tear Drop Cells Slight Puncture Site Rr pCO2 53 H (35-45) mm/Hg pO2 93 (80-100) mm/Hg HCO3 21.4 (21-28) mmol/L ABG pH 7.25 L (7.35-7.45) ABG Total CO2 24.8 (22-28) mmol/L ABG O2 Saturation 98.5 H (95-98) % ABG Base Excess -4.5 L (-2.0-3.0) mmol/L ABG Hemoglobin 12.3 (11.7-17.4) g/dL ABG Carboxyhemoglobin 1.8 H (0.5-1.5) % POC ABG HHb (Measured) 1.5 (0.0-5.0) % ABG Methemoglobin 1.1 (0.0-3.0) % Philippe Test Pos A-a O2 Difference 269.0 mm/Hg Respiratory Index 2.9 Hgb O2 Saturation 95.6 (95.0-98.0) % Mechanical Rate 24 FiO2 60.0 % Tidal Volume 500 PEEP 9 Sodium 134 (132-148) mmol/L Potassium 4.9 (3.6-5.2) mmol/L Chloride 101 (98-107) mmol/L Carbon Dioxide 25 (22-30) mmol/L Anion Gap 14 (10-20) BUN 68 H (9-20) mg/dL Creatinine 2.4 H (0.8-1.5) MG/DL Est GFR ( Amer) 35 Est GFR (Non-Af Amer) 29 POC Glucose (mg/dL) 242 H (65-110) mg/dL Random Glucose 228 H (75-110) mg/dL Hemoglobin A1c 11.8 H (4.2-6.5) % Calcium 7.3 L (8.6-10.4) mg/dl Phosphorus 5.6 H (2.5-4.5) mg/dL Magnesium 1.9 (1.6-2.3) mg/dL Total Bilirubin 0.8 (0.2-1.3) mg/dL AST 74 H D (17-59) U/L ALT 64 (21-72) U/L Alkaline Phosphatase 382 H D (38-126) U/L Total Protein 5.3 L (6.3-8.3) g/dL Albumin 2.5 L (3.5-5.0) g/dL Globulin 2.8 (2.2-3.9) gm/dL Albumin/Globulin Ratio 0.9 L (1.0-2.1) Procalcitonin (0.19-0.49) NG/ML 06/05/16 06/05/16 06/05/16 Range/Units 23:59 18:22 17:59 WBC (4.8-10.8) K/uL RBC (4.40-5.90) Mil/uL Hgb (12.0-18.0) g/dL Hct (35.0-51.0) % MCV (80.0-94.0) fL MCH (27.0-31.0) pg MCHC (33.0-37.0) g/dL RDW (11.5-14.5) % Plt Count (130-400) K/uL MPV (7.2-11.7) fL Neut % (Auto) (50.0-75.0) % Lymph % (Auto) (20.0-40.0) % [place]range % (Auto) (0.0-10.0) % Eos % (Auto) (0.0-4.0) % Baso % (Auto) (0.0-2.0) % Neut # (1.8-7.0) K/uL Lymph # (1.0-4.3) K/uL [place] # (0.0-0.8) K/uL Eos # (0.0-0.7) K/uL Baso # (0.0-0.2) K/uL Neutrophils % (Manual) (50-75) % Band Neutrophils % (0-2) % Lymphocytes % (Manual) (20-40) % Monocytes % (Manual) (0-10) % Eosinophils % (Manual) (0-4) % Toxic Granulation Platelet Estimate (NORMAL) Large Platelets Polychromasia Hypochromasia (manual) Poikilocytosis (manual Anisocytosis (manual) Tear Drop Cells Puncture Site pCO2 (35-45) mm/Hg pO2 (80-100) mm/Hg HCO3 (21-28) mmol/L ABG pH (7.35-7.45) ABG Total CO2 (22-28) mmol/L ABG O2 Saturation (95-98) % ABG Base Excess (-2.0-3.0) mmol/L ABG Hemoglobin (11.7-17.4) g/dL ABG Carboxyhemoglobin (0.5-1.5) % POC ABG HHb (Measured) (0.0-5.0) % ABG Methemoglobin (0.0-3.0) % Philippe Test A-a O2 Difference mm/Hg Respiratory Index Hgb O2 Saturation (95.0-98.0) % Mechanical Rate FiO2 % Tidal Volume PEEP Sodium (132-148) mmol/L Potassium (3.6-5.2) mmol/L Chloride (98-107) mmol/L Carbon Dioxide (22-30) mmol/L Anion Gap (10-20) BUN (9-20) mg/dL Creatinine (0.8-1.5) MG/DL Est GFR ( Amer) Est GFR (Non-Af Amer) POC Glucose (mg/dL) 214 H 127 H (65-110) mg/dL Random Glucose (75-110) mg/dL Hemoglobin A1c (4.2-6.5) % Calcium (8.6-10.4) mg/dl Phosphorus (2.5-4.5) mg/dL Magnesium (1.6-2.3) mg/dL Total Bilirubin (0.2-1.3) mg/dL AST (17-59) U/L ALT (21-72) U/L Alkaline Phosphatase (38-126) U/L Total Protein (6.3-8.3) g/dL Albumin (3.5-5.0) g/dL Globulin (2.2-3.9) gm/dL Albumin/Globulin Ratio (1.0-2.1) Procalcitonin 16.04 H (0.19-0.49) NG/ML 06/05/16 06/05/16 Range/Units 12:33 06:28 WBC (4.8-10.8) K/uL RBC (4.40-5.90) Mil/uL Hgb (12.0-18.0) g/dL Hct (35.0-51.0) % MCV (80.0-94.0) fL MCH (27.0-31.0) pg MCHC (33.0-37.0) g/dL RDW (11.5-14.5) % Plt Count (130-400) K/uL MPV (7.2-11.7) fL Neut % (Auto) (50.0-75.0) % Lymph % (Auto) (20.0-40.0) % [place] % (Auto) (0.0-10.0) % Eos % (Auto) (0.0-4.0) % Baso % (Auto) (0.0-2.0) % Neut # (1.8-7.0) K/uL Lymph # (1.0-4.3) K/uL [place] # (0.0-0.8) K/uL Eos # (0.0-0.7) K/uL Baso # (0.0-0.2) K/uL Neutrophils % (Manual) 75 (50-75) % Band Neutrophils % 14 H* (0-2) % Lymphocytes % (Manual) 5 L (20-40) % Monocytes % (Manual) 6 (0-10) % Eosinophils % (Manual) (0-4) % Toxic Granulation Present Platelet Estimate Normal (NORMAL) Large Platelets Present Polychromasia Hypochromasia (manual) Slight Poikilocytosis (manual Slight Anisocytosis (manual) Slight Tear Drop Cells Puncture Site pCO2 (35-45) mm/Hg pO2 (80-100) mm/Hg HCO3 (21-28) mmol/L ABG pH (7.35-7.45) ABG Total CO2 (22-28) mmol/L ABG O2 Saturation (95-98) % ABG Base Excess (-2.0-3.0) mmol/L ABG Hemoglobin (11.7-17.4) g/dL ABG Carboxyhemoglobin (0.5-1.5) % POC ABG HHb (Measured) (0.0-5.0) % ABG Methemoglobin (0.0-3.0) % Philippe Test A-a O2 Difference mm/Hg Respiratory Index Hgb O2 Saturation (95.0-98.0) % Mechanical Rate FiO2 % Tidal Volume PEEP Sodium (132-148) mmol/L Potassium (3.6-5.2) mmol/L Chloride (98-107) mmol/L Carbon Dioxide (22-30) mmol/L Anion Gap (10-20) BUN (9-20) mg/dL Creatinine (0.8-1.5) MG/DL Est GFR ( Amer) Est GFR (Non-Af Amer) POC Glucose (mg/dL) 136 H (65-110) mg/dL Random Glucose (75-110) mg/dL Hemoglobin A1c (4.2-6.5) % Calcium (8.6-10.4) mg/dl Phosphorus (2.5-4.5) mg/dL Magnesium (1.6-2.3) mg/dL Total Bilirubin (0.2-1.3) mg/dL AST (17-59) U/L ALT (21-72) U/L Alkaline Phosphatase (38-126) U/L Total Protein (6.3-8.3) g/dL Albumin (3.5-5.0) g/dL Globulin (2.2-3.9) gm/dL Albumin/Globulin Ratio (1.0-2.1) Procalcitonin (0.19-0.49) NG/ML Laboratory Results - last 24 hr 06/05/16 06/05/16 06/05/16 06:28 12:33 17:59 WBC RBC Hgb Hct MCV MCH MCHC RDW Plt Count MPV Neut % (Auto) Lymph % (Auto) [place] % (Auto) Eos % (Auto) Baso % (Auto) Neut # Lymph # [place] # Eos # Baso # Neutrophils % (Manual) 75 Band Neutrophils % 14 H* Lymphocytes % (Manual) 5 L Monocytes % (Manual) 6 Eosinophils % (Manual) Toxic Granulation Present Platelet Estimate Normal Large Platelets Present Polychromasia Hypochromasia (manual) Slight Poikilocytosis (manual Slight Anisocytosis (manual) Slight Tear Drop Cells Puncture Site pCO2 pO2 HCO3 ABG pH ABG Total CO2 ABG O2 Saturation ABG Base Excess ABG Hemoglobin ABG Carboxyhemoglobin POC ABG HHb (Measured) ABG Methemoglobin Philippe Test A-a O2 Difference Respiratory Index Hgb O2 Saturation Mechanical Rate FiO2 Tidal Volume PEEP Sodium Potassium Chloride Carbon Dioxide Anion Gap BUN Creatinine Est GFR ( Amer) Est GFR (Non-Af Amer) POC Glucose (mg/dL) 136 H 127 H Random Glucose Hemoglobin A1c Calcium Phosphorus Magnesium Total Bilirubin AST ALT Alkaline Phosphatase Total Protein Albumin Globulin Albumin/Globulin Ratio Procalcitonin 06/05/16 06/05/16 06/06/16 18:22 23:59 05:08 WBC RBC Hgb Hct MCV MCH MCHC RDW Plt Count MPV Neut % (Auto) Lymph % (Auto) [place] % (Auto) Eos % (Auto) Baso % (Auto) Neut # Lymph # [place] # Eos # Baso # Neutrophils % (Manual) Band Neutrophils % Lymphocytes % (Manual) Monocytes % (Manual) Eosinophils % (Manual) Toxic Granulation Platelet Estimate Large Platelets Polychromasia Hypochromasia (manual) Poikilocytosis (manual Anisocytosis (manual) Tear Drop Cells Puncture Site pCO2 pO2 HCO3 ABG pH ABG Total CO2 ABG O2 Saturation ABG Base Excess ABG Hemoglobin ABG Carboxyhemoglobin POC ABG HHb (Measured) ABG Methemoglobin Philippe Test A-a O2 Difference Respiratory Index Hgb O2 Saturation Mechanical Rate FiO2 Tidal Volume PEEP Sodium Potassium Chloride Carbon Dioxide Anion Gap BUN Creatinine Est GFR ( Amer) Est GFR (Non-Af Amer) POC Glucose (mg/dL) 214 H 242 H Random Glucose Hemoglobin A1c Calcium Phosphorus Magnesium Total Bilirubin AST ALT Alkaline Phosphatase Total Protein Albumin Globulin Albumin/Globulin Ratio Procalcitonin 16.04 H 06/06/16 06/06/16 05:11 06:17 WBC 14.7 H RBC 4.22 L Hgb 12.0 Hct 37.8 MCV 89.7 MCH 28.4 MCHC 31.7 L RDW 16.7 H Plt Count 231 MPV 11.2 Neut % (Auto) 91.0 H Lymph % (Auto) 5.0 L [place] % (Auto) 2.8 Eos % (Auto) 0.5 Baso % (Auto) 0.7 Neut # 13.4 H Lymph # 0.7 L [place] # 0.4 Eos # 0.1 Baso # 0.1 Neutrophils % (Manual) 76 H Band Neutrophils % 16 H* Lymphocytes % (Manual) 4 L Monocytes % (Manual) 2 Eosinophils % (Manual) 2 Toxic Granulation Platelet Estimate Normal Large Platelets Polychromasia Slight Hypochromasia (manual) Poikilocytosis (manual Anisocytosis (manual) Slight Tear Drop Cells Slight Puncture Site Rr pCO2 53 H pO2 93 HCO3 21.4 ABG pH 7.25 L ABG Total CO2 24.8 ABG O2 Saturation 98.5 H ABG Base Excess -4.5 L ABG Hemoglobin 12.3 ABG Carboxyhemoglobin 1.8 H POC ABG HHb (Measured) 1.5 ABG Methemoglobin 1.1 Philippe Test Pos A-a O2 Difference 269.0 Respiratory Index 2.9 Hgb O2 Saturation 95.6 Mechanical Rate 24 FiO2 60.0 Tidal Volume 500 PEEP 9 Sodium 134 Potassium 4.9 Chloride 101 Carbon Dioxide 25 Anion Gap 14 BUN 68 H Creatinine 2.4 H Est GFR ( Amer) 35 Est GFR (Non-Af Amer) 29 POC Glucose (mg/dL) Random Glucose 228 H Hemoglobin A1c 11.8 H Calcium 7.3 L Phosphorus 5.6 H Magnesium 1.9 Total Bilirubin 0.8 AST 74 H D ALT 64 Alkaline Phosphatase 382 H D Total Protein 5.3 L Albumin 2.5 L Globulin 2.8 Albumin/Globulin Ratio 0.9 L Procalcitonin Fingerstick Blood Sugar Results: 242 Review of Systems - Review of Systems Systems not reviewed;Unavailable: Intubated Review of Systems: as stated in subjective Critical Care Progress Note - Nutrition Nutrition: Nutrition Category Date Time Status NPO Diet [DIET] Diets 06/06/16 Breakfast Active Assessment/Plan - Assessment and Plan (Free Text) Assessment: 45 year old male with PMHx of COPD, asthma, DM, HN, DVT in RLE, NSTEMI in 2015, gallstones, liver cirrhosis, and CKD presents with complaint of aright LE pain and swelling. Pt recently was admitted to [facility] and found to have a DVT in his right lower extremity and discharged on Xarelto. Repeat venous doppler is consistent with extensive right femoral and iliac vein DVT. Code Blue was called 06/05/16 on due to pt. being unresponsive. Chest compressions were started. Patient intubated and transferred to intensive care unit for close monitoring. Plan: Neuro: Sedated with propofol, stopping propofol, continues Versed when necessary pushes if needed. Pulm: Acute respiratory failure with hypercarbia and hypoxia requiring intubation (), Patient likely has obesity hypoventilation syndrome and possibly obstructive sleep apnea known history of asthma -steroids. respiratory acidosis, increasing respiratory rate, decreasing FiO2. CV: Hemodynamically stable Hem: Lower extremity DVT now on Eliquis. Will need to be counseled regarding medication compliance when more alert. Per HemeOnc- Has multiple antiphospholipid Ab positivity- may require lifelong anticoagulation Renal: Respiratory acidosis, Initial hyperkalemia improved, patient received Kayexalate. K+ now stable Endo: DM type II, on short acting sliding scale for coverage Accuchecks. Monitor GI: Nothing by mouth, starting DiaBetisource at 20. ID: Bands [id number] on 06/06/16. Empiric coverage with aztreonam and cefepime. DVT proph - Eliquis GI proph - Pepcid joseph for strict I/O's during acute illness Code status - full code
[2016-06-06] MEDS: MethylPREDNISolone 40 mg Vial IV SCH ×2 (09:26→22:15)
[2016-06-06] MEDS: Aztreonam 1 GM in Sodium Chloride 0.9% 100 ML IVPB SCH ×2 (09:27→22:30)
[2016-06-06] MEDS: Acetylcysteine 20% Inhal Soln (4ml) PO SCH ×2 (09:54→17:15)
--- NOTE | 2016-06-06 10:27 | RAD ---
HISTORY: intubated COMPARISON: Comparison made with prior study 06/05/2016 FINDINGS: LUNGS: In situ ETT, tip of which lies approximately 4.26 cm above fish. Mild central pulmonary vascular congestive changes with bilateral lower lobe alveolar-type infiltrates and bilateral effusions. PLEURA: No significant pleural effusion identified, no pneumothorax apparent. CARDIOVASCULAR: Cardiomegaly. . OSSEOUS STRUCTURES: No significant abnormalities. VISUALIZED UPPER ABDOMEN: Normal. OTHER FINDINGS: None. IMPRESSION: In situ ETT as above. Mild central pulmonary vascular congestive changes with bilateral lower lobe alveolar-type infiltrates and bilateral effusions.
--- NOTE | 2016-06-06 11:20 | CP.PCM.PN ---
Subjective - Date & Time of Evaluation Date of Evaluation: 06/06/16 Time of Evaluation: 11:17 - Subjective Subjective: Events noted s/p respiratory failure- needed intubated and sent to ICU Had HENRIQUE- renal function now improving; UO increasing On sedation, IV fluids; remains vented Creat decreasing now- 2.4 Objective - Vital Signs/Intake and Output Vital Signs (last 24 hours): Temp Pulse Resp BP Pulse Ox 98.1 F 78 21 109/63 97 06/06/16 08:00 06/06/16 11:00 06/06/16 11:00 06/06/16 11:00 06/06/16 11:00 Intake and Output: 06/06/16 06/06/16 06:59 18:59 Intake Total 2566.4 1027.5 Output Total 1230 75 Balance 1336.4 952.5 - Medications Medications: Current Medications Acetaminophen (Tylenol 325mg Tab) 650 mg PO Q6 PRN PRN Reason: Fever >100.4 F Last Admin: 06/04/16 13:35 Dose: 650 mg Acetylcysteine (Acetylcysteine 20%) 4 ml PO BID [facility] Last Admin: 06/06/16 09:54 Dose: 4 ml Albuterol/Ipratropium (Duoneb 3 Mg/0.5 Mg (3 Ml) Ud) 3 ml INH RQ6 [facility] Last Admin: 06/06/16 07:43 Dose: 3 ml Apixaban (Eliquis) 5 mg PO BID [facility] Last Admin: 06/06/16 09:26 Dose: 5 mg Aspirin (Aspirin Chewable) 81 mg PO DAILY [facility] Last Admin: 06/06/16 09:26 Dose: 81 mg Famotidine (Pepcid) 20 mg IVP DAILY [facility] Last Admin: 06/06/16 09:26 Dose: 20 mg Aztreonam 1 gm/ Sodium (Chloride) 100 mls @ 100 mls/hr IVPB Q12H [facility] Last Admin: 06/06/16 09:27 Dose: 100 mls/hr Sodium Chloride (Sodium Chloride 0.9%) 1,000 mls @ 125 mls/hr IV .Q8H [facility] Last Admin: 06/06/16 01:58 Dose: 125 mls/hr Propofol (Diprivan) 100 mls @ 4.817 mls/hr IV .[id number] PRN; Protocol; 5 MCG/KG/ MIN PRN Reason: TITRATE PER MD ORDER Last Admin: 06/06/16 09:52 Dose: 38.537 mls/hr Insulin Human Regular (Novolin R) 0 unit SC Q6H ANABELLA PRN Reason: Protocol Last Admin: 06/06/16 05:44 Dose: 2 unit Methylprednisolone (Solu-Medrol) 40 mg IV Q12 [facility] Last Admin: 06/06/16 09:26 Dose: 40 mg - Labs Labs: 06/06/16 06:17 06/06/16 06:17 PT 13.9 SECONDS (9.7-12.2) H 05/27/16 09:38 INR 1.2 05/27/16 09:38 APTT 65 SECONDS (21-34) H 05/29/16 10:50 - Constitutional Appears: Toxic, Chronically Ill - Head Exam Head Exam: ATRAUMATIC, NORMAL INSPECTION - Neck Exam Neck Exam: Normal Inspection. absent: Tenderness - Respiratory Exam Respiratory Exam: Decreased Breath Sounds, NORMAL BREATHING PATTERN - Cardiovascular Exam Cardiovascular Exam: REGULAR RHYTHM, +S1 - GI/Abdominal Exam GI & Abdominal Exam: Soft. absent: Tenderness - Extremities Exam Extremities Exam: Pedal Edema. absent: Tenderness - Neurological Exam Neurological Exam: Altered, Motor Sensory Deficit - Skin Skin Exam: Dry, Warm Assessment and Plan (1) Cellulitis Status: Acute (2) Chronic kidney disease, stage 3 (moderate) Status: Acute (3) Deep venous thrombosis of lower extremity Status: Acute (4) Proteinuria due to type 2 diabetes mellitus Status: Acute (5) Type 2 diabetes mellitus with diabetic nephropathy Status: Acute (6) Nephrotic syndrome Status: Acute (7) HENRIQUE (acute kidney injury) Status: Acute - Assessment and Plan (Free Text) Plan: Agree with IV fluids- consider decreasing rate Add phosphate binders Monitor K
--- NOTE | 2016-06-06 16:05 | CP.PCM.PN ---
Subjective - Date & Time of Evaluation Date of Evaluation: 06/06/16 Time of Evaluation: 04:00 - Subjective Subjective: dictated Objective - Vital Signs/Intake and Output Vital Signs (last 24 hours): Temp Pulse Resp BP Pulse Ox 98.1 F 81 24 140/76 98 06/06/16 12:00 06/06/16 13:00 06/06/16 14:00 06/06/16 14:00 06/06/16 14:00 Intake and Output: 06/06/16 06/06/16 06:59 18:59 Intake Total 2566.4 1688.5 Output Total 1230 75 Balance 1336.4 1613.5 - Medications Medications: Current Medications Acetaminophen (Tylenol 325mg Tab) 650 mg PO Q6 PRN PRN Reason: Fever >100.4 F Last Admin: 06/04/16 13:35 Dose: 650 mg Acetylcysteine (Acetylcysteine 20%) 4 ml PO BID ON LICENSE OF [facility] Last Admin: 06/06/16 09:54 Dose: 4 ml Albuterol/Ipratropium (Duoneb 3 Mg/0.5 Mg (3 Ml) Ud) 3 ml INH RQ6 ON LICENSE OF [facility] Last Admin: 06/06/16 13:15 Dose: 3 ml Apixaban (Eliquis) 5 mg PO BID ON LICENSE OF [facility] Last Admin: 06/06/16 09:26 Dose: 5 mg Aspirin (Aspirin Chewable) 81 mg PO DAILY [facility] OF [facility] Last Admin: 06/06/16 09:26 Dose: 81 mg Calcium Acetate (Phoslo) 667 mg GT TIDCC ON LICENSE OF [facility] Last Admin: 06/06/16 12:04 Dose: 667 mg Famotidine (Pepcid) 20 mg IVP DAILY ON [facility] OF [facility] Last Admin: 06/06/16 09:26 Dose: 20 mg Aztreonam 1 gm/ Sodium (Chloride) 100 mls @ 100 mls/hr IVPB Q12H ON LICENSE OF [facility] Last Admin: 06/06/16 09:27 Dose: 100 mls/hr Sodium Chloride (Sodium Chloride 0.9%) 1,000 mls @ 125 mls/hr IV .Q8H [facility] OF [facility] Last Admin: 06/06/16 12:01 Dose: 125 mls/hr Propofol (Diprivan) 100 mls @ 4.817 mls/hr IV .[id number] PRN; Protocol; 5 MCG/KG/ MIN PRN Reason: TITRATE PER MD ORDER Last Admin: 06/06/16 15:24 Dose: 38.537 mls/hr Insulin Human Regular (Novolin R) 0 unit SC Q6H ANABELLA PRN Reason: Protocol Last Admin: 06/06/16 12:19 Dose: 2 unit Lorazepam (Ativan) 2 mg IVP Q6H PRN PRN Reason: Anxiety Last Admin: 06/06/16 15:25 Dose: 2 mg Methylprednisolone (Solu-Medrol) 40 mg IV Q12 [facility] Last Admin: 06/06/16 09:26 Dose: 40 mg - Labs Labs: 06/06/16 06:17 06/06/16 06:17 PT 13.9 SECONDS (9.7-12.2) H 05/27/16 09:38 INR 1.2 05/27/16 09:38 APTT 65 SECONDS (21-34) H 05/29/16 10:50
--- NOTE | 2016-06-06 19:04 | CP.PCM.PN ---
Subjective - Date & Time of Evaluation Date of Evaluation: 06/06/16 Time of Evaluation: 19:00 - Subjective Subjective: Today I had a very long sit down discussion with two of the patient's immediate family members. He remains intubated at this time. There was a CODE Blue called on 06/04 which required that the patient be intubated and brought to the ICU. With the help of the computer translation service in [place] I explained to the family what had happened. There is a high chance he now has a PE. Because of his renal function and also being mechanical ventilation it maybe difficult to get a CTA to get a PE. I explained to family he has antiphosphosolipid syndrome - I don't know if the translation service got the message across however they are aware he need anticoagulation for life. As before, he is being follow for: Acute Respiratory Failure, Aspiration Pneumonia, Sepsis, Bacteremia, Right lower DVT+ (noncompliance on Xarelto), Antiphosolipid syndrome, Hx of COPD, acute on chronic kidney failure Patient seen, examined and currently intubated. Unable to review ROS given clinical state. Objective - Vital Signs/Intake and Output Vital Signs (last 24 hours): Temp Pulse Resp BP Pulse Ox 99.1 F 88 25 H 139/78 94 L 06/06/16 16:00 06/06/16 18:00 06/06/16 18:00 06/06/16 18:00 06/06/16 18:00 Intake and Output: 06/06/16 06/07/16 18:59 06:59 Intake Total 2641.3 Output Total 1375 Balance 1266.3 - Medications Medications: Current Medications Acetaminophen (Tylenol 325mg Tab) 650 mg PO Q6 PRN PRN Reason: Fever >100.4 F Last Admin: 06/04/16 13:35 Dose: 650 mg Acetylcysteine (Acetylcysteine 20%) 4 ml PO BID [facility] Last Admin: 06/06/16 17:15 Dose: 4 ml Albuterol/Ipratropium (Duoneb 3 Mg/0.5 Mg (3 Ml) Ud) 3 ml INH RQ6 [facility] Last Admin: 06/06/16 13:15 Dose: 3 ml Apixaban (Eliquis) 5 mg PO BID [facility] Last Admin: 06/06/16 17:16 Dose: 5 mg Aspirin (Aspirin Chewable) 81 mg PO DAILY [facility] Last Admin: 06/06/16 09:26 Dose: 81 mg Calcium Acetate (Phoslo) 667 mg GT TIDCC [facility] Last Admin: 06/06/16 17:17 Dose: 667 mg Famotidine (Pepcid) 20 mg IVP DAILY [facility] Last Admin: 06/06/16 09:26 Dose: 20 mg Aztreonam 1 gm/ Sodium (Chloride) 100 mls @ 100 mls/hr IVPB Q12H [facility] Last Admin: 06/06/16 09:27 Dose: 100 mls/hr Sodium Chloride (Sodium Chloride 0.9%) 1,000 mls @ 125 mls/hr IV .Q8H [facility] Last Admin: 06/06/16 18:29 Dose: 125 mls/hr Propofol (Diprivan) 100 mls @ 4.817 mls/hr IV .[id number] PRN; Protocol; 5 MCG/KG/ MIN PRN Reason: TITRATE PER MD ORDER Last Admin: 06/06/16 17:11 Dose: 38.537 mls/hr Insulin Human Regular (Novolin R) 0 unit SC Q6H [facility] PRN Reason: Protocol Last Admin: 06/06/16 18:28 Dose: 3 unit Lorazepam (Ativan) 2 mg IVP Q6H PRN PRN Reason: Anxiety Last Admin: 06/06/16 15:25 Dose: 2 mg Methylprednisolone (Solu-Medrol) 40 mg IV Q12 [facility] Last Admin: 06/06/16 09:26 Dose: 40 mg - Labs Labs: 06/06/16 06:17 06/06/16 06:17 PT 13.9 SECONDS (9.7-12.2) H 05/27/16 09:38 INR 1.2 05/27/16 09:38 APTT 65 SECONDS (21-34) H 05/29/16 10:50 - Constitutional Appears: Chronically Ill - ENT Exam ENT Exam: Mucous Membranes Moist - Respiratory Exam Respiratory Exam: Decreased Breath Sounds, Rhonchi - Cardiovascular Exam Cardiovascular Exam: Tachycardia - GI/Abdominal Exam GI & Abdominal Exam: Soft. absent: Rigid, Tenderness - Skin Skin Exam: Normal Color, Warm Assessment and Plan - Assessment and Plan (Free Text) Assessment: 1) Acute respiratory failure 06/06: I updated family members with reguards to recent events. He may or may not have a PE or this could be aspiration pneumonia for example. He is on IV abx and also he continues to recieve anticoagulation. * Intubated on 06/04/16 for "Code Blue" called on 06/04/16, patient did not lose pulse * Possible aspiration pneumonia vs less pulmonary embolus despite being on anticoagulation for extensive DVT right lower extremity * Unable to perform CT angio PE control secondary to chronic kidney disease 2) Thrombosis of the R iliac and common femoral vein 06/06: As mentioned before the patient was intended to have thrombolysis of the lower extremity with the chronic DVT however this was not able to be done immediately due to renal function. As of now on anticogulation. 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 normal venous flow noted in the left common femoral vein * Prior to respiratory arrest on 06/04/16, patient was planned for thrombolysis for this upcoming Tuesday 06/06 * Heme-oncology (Dr. 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 Ortega) on board 3) Sepsis 06/06: The most recent blood cultures have been negative for 48 hrs, remains on IV abx. WBC 14 today. No elevated temperatures today * Criteria admission: WBC: 43.8, HR>90, Cr> 2.0, platelets 103 and blood culture: Serattia from 05/25/16 * Now: Criteria: WBC: 25.5, Tmax: 102.1 bands>10, platelets normalized, Cr 2.0, chest xray for possible aspiration pneumonia pending new cultures * Urine culture: no growth * 05/27/16 Blood Venous: No growth After 5 days X2 * 05/27/16 Urine culture: no growth * 06/04/16 Blood Culture: No growth after 24 hours X2; gram pending * 06/04/16 Trach sputum: pending * 06/04/16 Urine culture: No growth * Infectious disease (Dr. Marsh) on board * Procalcitonin: 16.1 (05/26/16)--> 31.81 (05/27/16)-->ordered for new one * Aztreonam 1gram IV Q 12hours (active since 05/26/16) and Maxipime 1gram IV Q 12hours (active since 05/29/16) * Abd CT(05/28/16): bilateral inguinal lymphadenopathy, right greater than left. cirrhotic contour of liver. fatty atrophy of the pancreas, splenic atrophy w residula spleen, recitulation and edema seen in subcutanous soft tissues, cholelithiasis, consolidative changes at both lung bases which may represen underying infiltrate. * Ab US (05/28/16): enlarged liver with diffuse fatty infiltration, cholelithiasis, limited visualization of the pancreas * Echocardiogram (05/30/16): EF: 55-60% left ventricular ejection fraction is within normal range. left ventricular diastolic function is normal. trace to mild tricupsid regurgitation, PAP 35-45 mmgHG, mild pulmonary hypertension 4) Acute renal failure on Chronic Kidney disease with Nephrotic Syndrome * Nephrology (Dr. Rhoades) on board-->help appreciated * Dialysis consented by nephrology 06/04 if potassium does not respond to medical therapy and/or renal function not recover * NS 125 cc/hr (started 06/04/16) * Has dialysis catheter port placed on 06/04/16 by ICU * Monitor potassium levels 5) History of COPD/asthma * Former smoker, quit 5 years ago * currently intubated secondary to respiratory arrest secondary to likely pnuemonia * Chest xray (06/04/16): in site ett and apparent in situ NGT as aboove in distal aspect of the NGT is poorly delinated, cardiomegaly, pulmonary vascular congestive changes with bilateral lower love alveolar-type infiltrates and bilateral effusions 6) History of Congestive Heart failure * 01/2016 ECHO- LV EF 60-65%, mild pulmonary HTN (see full report) * Echocardiogram (05/30/16): EF: 55-60% left ventricular ejection fraction is within normal range. left ventricular diastolic function is normal. trace to mild tricupsid regurgitation, PAP 35-45 mmgHG, mild pulmonary hypertension * off Crestor secondary to elevated BUN/Cr * off beta asmita secondary to acute respiratory failure; hx of copd se worsening bronchospasm * Aspirin 81mg PO daily 7)Diabetes Mellitus * Accuchecks Q6 hours * Novolin sliding scale subq 6hours * Diabetic source 20cc/hr via OGT * ordered for [id number] * Prior a1c shows uncontrolled 8) History of Hypertension * Off antihypertensives 9) Hx of Nonstemi * January 2016 hospitalization * No cardiac cath * Hx of CHF 10) Prophylactic measures - SCDs contraindicated due to DVT - Eliquis 5mg PO BID for DVT Right LE - Pepcid 20mg PO daily for GI ppx - NS 125 cc/hr - Tube feedings - PT/OT
--- NOTE | 2016-06-06 20:55 | PN ---
DATE: 06/06/2016 SUBJECTIVE: The patient was seen today. He remains intubated, sedated, and his family was at the [facility]. He is status post code blue, has acute respiratory failure, has aspiration, and has right leg DVT, has antiphospholipid syndrome, with COPD and now with renal failure. The kidneys again became worse. PHYSICAL EXAMINATION: VITAL SIGNS: Temperature today was 99.1, pulse of 88, respirations on the vent, blood pressure 139/7 8, saturation remains 94. He remains intubated. NECK: Supple. LUNGS: Clear. Decreased breath sounds in both bases. HEART: S1, S2 regular. ABDOMEN: Flabby, nontender. He has obesity. EXTREMITIES: Right leg and right thigh remain edematous and swollen, looks slightly better than befo re, left leg is also with edema. He has thrombosis of the right iliac and common femoral artery, als o has sepsis. Now I want to see the labs. LABORATORY DATA: Remains with white count 14.7, hemoglobin 12, hematocrit 37.8, platelet count is 23 1. He remains with 16 bands, 76 neutrophils. Sodium is 134, potassium 4.9, chloride 101, CO2 is 25, BUN is 14, creatinine is increasing to 2.4. Hence, I will have to look into the antibiotics he was getting. Actually we did not give him too much. He is on Azactam 1 g q. 12. He is on Solu-Medrol. I would also continue with cefepime at this time. He is on Azactam at this time and he has a lot of bands, and he had a blood culture which was positive for Serratia marcescens. So, at this time, con tinue , Maxipime 2 g daily as there is severe bandemia present. Yesterday, I was not in. Labs show alkaline phosphatase is 382, total bilirubin is 0.8. Liver enzymes are mildly elevated. At this time, I think we should continue with 2 coverages, as he does have renal insufficiency and he has a big BMI and one drug may not be enough to keep the sepsis under control at this time, with so many and things going on; so I will put back the cefepime 1 g q. 12 at this time and I will monitor. Since his creatinine is up, he is in no position to get a thrombectomy, it seems, but we will follow with the other consultants. His tracheal aspirate had normal kwadwo. Urine culture remains negative . Blood culture remains negative, but he remains with severe bandemia. IMPRESSION: He had septicemia with Serratia marcescens and also had extensive DVT of the right leg, with antiphospholipid syndrome, status post code, acute respiratory failure, renal failure. Joshua Marsh MD cc: [id number] TT: 06/06/2016 20:54:34 Confirmation # [id number] Dictation # [id number] ln
[2016-06-07] MEDS: (Novolin R) Insulin Human Regular 100 units/ml vial SC SCH ×4 (01:00→17:46)
[2016-06-07] MEDS: Albuterol-Ipratrop 3 mg / 0.5 (3 ml) UD INH SCH ×4 (01:07→19:18)
--- NOTE | 2016-06-07 02:19 | CP.PCM.PN ---
Subjective - Date & Time of Evaluation Date of Evaluation: 06/06/16 Time of Evaluation: 20:40 - Subjective Subjective: Remains vented Objective - Vital Signs/Intake and Output Vital Signs (last 24 hours): Temp Pulse Resp BP Pulse Ox 99.7 F H 82 23 140/79 93 L 06/07/16 00:00 06/07/16 02:00 06/07/16 02:00 06/07/16 02:00 06/07/16 02:00 Intake and Output: 06/06/16 06/07/16 18:59 06:59 Intake Total 2641.3 1660.6 Output Total 1375 845 Balance 1266.3 815.6 - Medications Medications: Current Medications Acetaminophen (Tylenol 325mg Tab) 650 mg PO Q6 PRN PRN Reason: Fever >100.4 F Last Admin: 06/04/16 13:35 Dose: 650 mg Acetylcysteine (Acetylcysteine 20%) 4 ml PO BID [facility] Last Admin: 06/06/16 17:15 Dose: 4 ml Albuterol/Ipratropium (Duoneb 3 Mg/0.5 Mg (3 Ml) Ud) 3 ml INH RQ6 [facility] Last Admin: 06/07/16 01:07 Dose: 3 ml Apixaban (Eliquis) 5 mg PO BID [facility] Last Admin: 06/06/16 17:16 Dose: 5 mg Aspirin (Aspirin Chewable) 81 mg PO DAILY [facility] Last Admin: 06/06/16 09:26 Dose: 81 mg Calcium Acetate (Phoslo) 667 mg GT TIDCC [facility] Last Admin: 06/06/16 17:17 Dose: 667 mg Famotidine (Pepcid) 20 mg IVP DAILY [facility] Last Admin: 06/06/16 09:26 Dose: 20 mg Aztreonam 1 gm/ Sodium (Chloride) 100 mls @ 100 mls/hr IVPB Q12H [facility] Last Admin: 06/06/16 22:30 Dose: 100 mls/hr Sodium Chloride (Sodium Chloride 0.9%) 1,000 mls @ 125 mls/hr IV .Q8H [facility] Last Admin: 06/06/16 18:29 Dose: 125 mls/hr Propofol (Diprivan) 100 mls @ 4.817 mls/hr IV .[id number] PRN; Protocol; 5 MCG/KG/ MIN PRN Reason: TITRATE PER MD ORDER Last Admin: 06/06/16 23:45 Dose: 48.172 mls/hr Cefepime HCl 1 gm/ Dextrose 50 mls @ 100 mls/hr IVPB Q12H [facility] Last Admin: 06/06/16 22:00 Dose: 100 mls/hr Insulin Human Regular (Novolin R) 0 unit SC Q6H [facility] PRN Reason: Protocol Last Admin: 06/07/16 01:00 Dose: 4 unit Lorazepam (Ativan) 2 mg IVP Q6H PRN PRN Reason: Anxiety Last Admin: 06/06/16 22:00 Dose: 2 mg Methylprednisolone (Solu-Medrol) 40 mg IV Q12 [facility] Last Admin: 06/06/16 22:15 Dose: 40 mg - Labs Labs: 06/06/16 06:17 06/06/16 06:17 PT 13.9 SECONDS (9.7-12.2) H 05/27/16 09:38 INR 1.2 05/27/16 09:38 APTT 65 SECONDS (21-34) H 05/29/16 10:50 - Head Exam Head Exam: ATRAUMATIC - Eye Exam Eye Exam: Normal appearance - ENT Exam ENT Exam: Mucous Membranes Dry - Respiratory Exam Respiratory Exam: NORMAL BREATHING PATTERN - Cardiovascular Exam Cardiovascular Exam: +S1, +S2 - GI/Abdominal Exam GI & Abdominal Exam: Normal Bowel Sounds - Extremities Exam Extremities Exam: Pedal Edema Assessment and Plan (1) Deep venous thrombosis of lower extremity Assessment & Plan: recurrent has multiple antiphospholipid Ab positivity Nephrotic syndrome; 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
[2016-06-07] MEDS: Sodium Chloride 0.9% 1,000 ML IV SCH ×4 (03:35→23:45)
[2016-06-07 05:52] LABS: ABG ALLEN TEST POS; ABG MECHANICAL RATE 24; ARTERIAL BLOOD HGB O2 SAT 95.7 % (95.0-98.0); ATERIAL BLOOD GAS PEEP 9; CARBOXYHEMOGLOBIN 1.5 % (0.5-1.5); DRAW SITE RRAD; HHB 1.6 % (0.0-5.0); METHEMOGLOBIN 1.3 % (0.0-3.0)
[2016-06-07 06:05] LABS: BASO # 0.1 K/uL (0.0-0.2); BASO % 0.5 % (0.0-2.0); EOS # 0.1 K/uL (0.0-0.7); EOS % 0.5 % (0.0-4.0); HEMATOCRIT 37.7 % (35.0-51.0); LYMPH # 1.1 K/uL (1.0-4.3); LYMPH % 7.7 % (20.0-40.0); MEAN CELL VOLUME 88.5 fL (80.0-94.0); MEAN CORPUSCULAR HEMOGLOBIN 28.4 pg (27.0-31.0); MEAN CORPUSCULAR HGB CONC 32.1 g/dL (33.0-37.0); MEAN PLATELET VOLUME 10.9 fL (7.2-11.7); MONO # 1.2 K/uL (0.0-0.8); MONO % 8.4 % (0.0-10.0); NRBC % 0.5 % (0.0-2.0); PLATELET COUNT 287 K/uL (130-400); WHITE BLOOD COUNT 14.8 K/uL (4.8-10.8)
[2016-06-07 06:17] LABS: ALB/GLOB RATIO 0.8 (1.0-2.1); BILIRUBIN,TOTAL 0.7 mg/dL (0.2-1.3); TOTAL PROTEIN 5.6 g/dL (6.3-8.3)
[2016-06-07 06:18] LABS: CALCIUM 7.4 mg/dl (8.6-10.4); MAGNESIUM 2.1 mg/dL (1.6-2.3); PHOSPHOROUS 4.9 mg/dL (2.5-4.5)
[2016-06-07 09:27] LABS: EOSINOPHIL 2 % (0-4); NEUTROPHIL 72 % (50-75); TOTAL CELLS COUNTED 100
[2016-06-07] MEDS: MethylPREDNISolone 40 mg Vial IV SCH ×2 (09:45→21:40)
[2016-06-07] MEDS: Acetylcysteine 20% Inhal Soln (4ml) PO SCH ×2 (09:47→17:42)
[2016-06-07] MEDS: Aztreonam 1 GM in Sodium Chloride 0.9% 100 ML IVPB SCH ×2 (09:48→21:40)
--- NOTE | 2016-06-07 10:40 | RAD ---
HISTORY: intubated COMPARISON: Comparison chest dated 11/06/2016 FINDINGS: LUNGS: In situ ETT, tip of which lies approximately 5.75 cm above fish. Situ NGT is also felt be present however the distal aspect poorly seen. Bilateral infiltrates and bilateral effusions likely due to pulmonary vascular congestion however pneumonia not excluded PLEURA: No significant pleural effusion identified, no pneumothorax apparent. CARDIOVASCULAR: Cardiomegaly. OSSEOUS STRUCTURES: No significant abnormalities. VISUALIZED UPPER ABDOMEN: Normal. OTHER FINDINGS: None. IMPRESSION: ETT and apparent NGT as above. Cardiomegaly with persistent bilateral infiltrates and bilateral effusions likely due to pulmonary vascular congestion however bilateral pneumonia not excluded.
--- NOTE | 2016-06-07 11:47 | CP.PCM.PN ---
Subjective - Date & Time of Evaluation Date of Evaluation: 06/07/16 Time of Evaluation: 11:45 - Subjective Subjective: appears dyspneic/ restless on 60% fio2 good uop noted bp stable at bedside, condition discussed and explained to her Objective - Vital Signs/Intake and Output Vital Signs (last 24 hours): Temp Pulse Resp BP Pulse Ox 99.8 F H 78 24 156/68 H 96 06/07/16 08:00 06/07/16 10:00 06/07/16 10:00 06/07/16 10:00 06/07/16 10:00 Intake and Output: 06/07/16 06/07/16 06:59 18:59 Intake Total 2573.4 852.8 Output Total 1420 Balance 1153.4 852.8 - Medications Medications: Current Medications Acetaminophen (Tylenol 325mg Tab) 650 mg PO Q6 PRN PRN Reason: Fever >100.4 F Last Admin: 06/04/16 13:35 Dose: 650 mg Acetylcysteine (Acetylcysteine 20%) 4 ml PO BID [facility] Last Admin: 06/07/16 09:47 Dose: 4 ml Albuterol/Ipratropium (Duoneb 3 Mg/0.5 Mg (3 Ml) Ud) 3 ml INH RQ6 [facility] Last Admin: 06/07/16 07:43 Dose: 3 ml Apixaban (Eliquis) 5 mg PO BID [facility] Last Admin: 06/07/16 09:47 Dose: 5 mg Aspirin (Aspirin Chewable) 81 mg PO DAILY [facility] Last Admin: 06/07/16 09:46 Dose: 81 mg Calcium Acetate (Phoslo) 667 mg GT TIDCC [facility] Last Admin: 06/07/16 09:00 Dose: 667 mg Famotidine (Pepcid) 20 mg IVP DAILY [facility] Last Admin: 06/07/16 09:45 Dose: 20 mg Aztreonam 1 gm/ Sodium (Chloride) 100 mls @ 100 mls/hr IVPB Q12H [facility] Last Admin: 06/07/16 09:48 Dose: 100 mls/hr Sodium Chloride (Sodium Chloride 0.9%) 1,000 mls @ 125 mls/hr IV .Q8H [facility] Last Admin: 06/07/16 09:55 Dose: 125 mls/hr Propofol (Diprivan) 100 mls @ 4.817 mls/hr IV .[id number] PRN; Protocol; 5 MCG/KG/ MIN PRN Reason: TITRATE PER MD ORDER Last Admin: 06/07/16 09:41 Dose: 48.172 mls/hr Cefepime HCl 1 gm/ Dextrose 50 mls @ 100 mls/hr IVPB Q12H [facility] Last Admin: 06/06/16 22:00 Dose: 100 mls/hr Insulin Human Regular (Novolin R) 0 unit SC Q6 [facility] PRN Reason: Protocol Lorazepam (Ativan) 2 mg IVP Q6H PRN PRN Reason: Anxiety Last Admin: 06/07/16 11:12 Dose: 2 mg Methylprednisolone (Solu-Medrol) 20 mg IV Q12 [facility] - Labs Labs: 06/07/16 05:53 06/07/16 05:53 PT 13.9 SECONDS (9.7-12.2) H 05/27/16 09:38 INR 1.2 05/27/16 09:38 APTT 65 SECONDS (21-34) H 05/29/16 10:50 - Constitutional Appears: Agitated, Chronically Ill - Head Exam Head Exam: NORMAL INSPECTION - ENT Exam Additional comments: t tube - Neck Exam Neck Exam: Normal Inspection - Respiratory Exam Additional comments: coarse breath sounds b/l - Cardiovascular Exam Cardiovascular Exam: REGULAR RHYTHM, RRR - GI/Abdominal Exam GI & Abdominal Exam: Distended, Soft, Hypoactive Bowel Sounds - Extremities Exam Extremities Exam: Pedal Edema (3+) Assessment and Plan (1) Cellulitis Status: Acute (2) Deep venous thrombosis of lower extremity Status: Acute (3) Sepsis Status: Acute (4) Diabetic nephropathy Status: Acute (5) Diabetes Status: Chronic (6) HTN (hypertension) Status: Chronic (7) Renal insufficiency Status: Chronic - Assessment and Plan (Free Text) Assessment: -discussed w/ and icu team -consent for hd obtained -hd atheter in place -first hd today for volume management
--- NOTE | 2016-06-07 14:17 | CP.CCUPN ---
<KallieSamanthalynne - Last Filed: 06/07/16 14:14> CCU Subjective - Physician Review Subjective (Free Text): 06/06/16 15:56 Pt seen and examined. He is intubated and sedated at this time. Patient family friend present bedside. No acute events overnight per nursing. An ROS could nto be obtained at this time due to patient's clinical status. 06/07/16 14:14 Pt seen and examined. He is intubated and sedated at this time. Patient family friend present bedside. No acute events overnight per nursing. Dr. Vargas ( Medicine hospitalist) had extensive discussion with patient's family yesterday regarding patient's status. An ROS could not be obtained at this time due to patient's clinical status. CCU Objective - Vital Signs / Intake & Output Vital Signs (Last 4 hours): Vital Signs Temp Pulse Resp BP Pulse Ox 06/07/16 13:00 78 24 140/77 96 06/07/16 12:00 99.1 F 77 24 145/76 96 06/07/16 11:00 76 24 150/79 95 Intake and Output (Last 8hrs): Intake & Output 06/06/16 06/07/16 06/07/16 22:59 06:59 14:59 Intake Total 1785.6 1740.6 1492.4 Output Total 1005 950 Balance 780.6 790.6 1492.4 Weight 350 lb 8.56 oz Intake: Intake, IV Amount 1285.6 1360.6 1212.4 Right Antecubital 360.6 385.6 337.4 Left Femoral 925 975 875 Oral 60 60 Tube Feeding 320 320 280 Other 120 Output: Urine 1005 950 Urethral (Campbell) 1005 950 Other: # Bowel Movements 1 1 - Physical Exam Head: Positive for: Atraumatic, Normocephalic Pupils: Positive for: PERRL Conjunctiva: Positive for: Normal Mouth: Positive for: Moist Mucous Membranes Respiratory/Chest: Positive for: Clear to Auscultation Cardiovascular: Positive for: Regular Rate and Rhythm Abdomen: Positive for: Normal Bowel Sounds. Negative for: Tenderness, Distention Upper Extremity: Positive for: Edema Lower Extremity: Positive for: Edema, Swelling, Erythema Skin: Positive for: Warm, Dry - Medications Active Medications: Active Medications Generic Name Dose Route Start Last Admin Trade Name Freq PRN Reason Stop Dose Admin Acetaminophen 650 mg 06/04/16 00:38 06/04/16 13:35 Tylenol 325mg Tab PO 650 mg Q6 PRN Administration Fever >100.4 F Acetylcysteine 4 ml 06/04/16 00:01 06/07/16 09:47 Acetylcysteine 20% PO 4 ml BID ANABELLA Administration Albuterol/Ipratropium 3 ml 06/05/16 20:00 06/07/16 13:09 Duoneb 3 Mg/0.5 Mg (3 Ml) Ud INH 3 ml RQ6 ANABELLA Administration Apixaban 5 mg 06/05/16 10:00 06/07/16 09:47 Eliquis PO 5 mg BID ANABELLA Administration Aspirin 81 mg 05/26/16 10:00 06/07/16 09:46 Aspirin Chewable PO 81 mg DAILY ANABELLA Administration Calcium Acetate 667 mg 06/06/16 12:00 06/07/16 09:00 Phoslo GT 667 mg TIDCC ANABELLA Administration Famotidine 20 mg 06/04/16 11:45 06/07/16 09:45 Pepcid IVP 20 mg DAILY ANABELLA Administration Aztreonam 1 gm/ Sodium 100 mls @ 100 mls/hr 06/04/16 10:00 06/07/16 09:48 Chloride IVPB 100 mls/hr Q12H ANABELLA Administration Sodium Chloride 1,000 mls @ 125 mls/hr 06/04/16 16:45 06/07/16 09:55 Sodium Chloride 0.9% IV 125 mls/hr .Q8H ANABELLA Administration Propofol 100 mls @ 4.817 mls/hr 06/05/16 22:46 06/07/16 13:25 Diprivan IV 48.172 mls/hr .[id number] PRN Administration TITRATE PER MD ORDER Protocol 5 MCG/KG/MIN Cefepime HCl 1 gm/ Dextrose 50 mls @ 100 mls/hr 06/06/16 21:00 06/06/16 22:00 IVPB 100 mls/hr Q12H ANABELLA Administration Insulin Human Regular 0 unit 06/07/16 12:00 Novolin R SC Q6 ANABELLA Protocol Lorazepam 2 mg 06/06/16 14:53 06/07/16 11:12 Ativan IVP 2 mg Q6H PRN Administration Anxiety Methylprednisolone 20 mg 06/07/16 10:09 Solu-Medrol IV Q12 ANABELLA - Patient Studies Lab Studies: Microbiology Studies 06/04/16 16:47 Blood Culture - Preliminary Blood-Thru Central Line NO GROWTH AFTER 48 HOURS 06/04/16 16:47 Blood Culture - Preliminary Blood-Thru Central Line NO GROWTH AFTER 48 HOURS 06/04/16 16:47 Gram Stain - Final Trachasp Sputum Culture - Final NORMAL ORAL HIEN Lab Studies 06/07/16 06/07/16 06/07/16 Range/Units 12:15 05:53 05:25 WBC 14.8 H (4.8-10.8) K/uL RBC 4.26 L (4.40-5.90) Mil/uL Hgb 12.1 (12.0-18.0) g/dL Hct 37.7 (35.0-51.0) % MCV 88.5 (80.0-94.0) fL MCH 28.4 (27.0-31.0) pg MCHC 32.1 L (33.0-37.0) g/dL RDW 17.0 H (11.5-14.5) % Plt Count 287 (130-400) K/uL MPV 10.9 (7.2-11.7) fL Neut % (Auto) 82.9 H (50.0-75.0) % Lymph % (Auto) 7.7 L (20.0-40.0) % Jerome % (Auto) 8.4 (0.0-10.0) % Eos % (Auto) 0.5 (0.0-4.0) % Baso % (Auto) 0.5 (0.0-2.0) % Neut # 12.3 H (1.8-7.0) K/uL Lymph # 1.1 (1.0-4.3) K/uL Jerome # 1.2 H (0.0-0.8) K/uL Eos # 0.1 (0.0-0.7) K/uL Baso # 0.1 (0.0-0.2) K/uL Neutrophils % (Manual) 72 (50-75) % Band Neutrophils % 17 H* (0-2) % Lymphocytes % (Manual) 4 L (20-40) % Monocytes % (Manual) 5 (0-10) % Eosinophils % (Manual) 2 (0-4) % Platelet Estimate Normal (NORMAL) Polychromasia Slight Anisocytosis (manual) Slight Target Cells Slight Tear Drop Cells Slight Puncture Site pCO2 (35-45) mm/Hg pO2 (80-100) mm/Hg HCO3 (21-28) mmol/L ABG pH (7.35-7.45) ABG Total CO2 (22-28) mmol/L ABG O2 Saturation (95-98) % ABG Base Excess (-2.0-3.0) mmol/L ABG Hemoglobin (11.7-17.4) g/dL ABG Carboxyhemoglobin (0.5-1.5) % POC ABG HHb (Measured) (0.0-5.0) % ABG Methemoglobin (0.0-3.0) % Philippe Test A-a O2 Difference mm/Hg Respiratory Index Hgb O2 Saturation (95.0-98.0) % Mechanical Rate FiO2 % Tidal Volume PEEP Sodium 138 (132-148) mmol/L Potassium 5.0 (3.6-5.2) mmol/L Chloride 102 (98-107) mmol/L Carbon Dioxide 26 (22-30) mmol/L Anion Gap 16 (10-20) BUN 73 H (9-20) mg/dL Creatinine 2.0 H (0.8-1.5) MG/DL Est GFR ( Amer) 44 Est GFR (Non-Af Amer) 36 POC Glucose (mg/dL) 347 H 317 H (65-110) mg/dL Random Glucose 328 H (75-110) mg/dL Calcium 7.4 L (8.6-10.4) mg/dl Phosphorus 4.9 H (2.5-4.5) mg/dL Magnesium 2.1 (1.6-2.3) mg/dL Total Bilirubin 0.7 (0.2-1.3) mg/dL AST 52 (17-59) U/L ALT 56 (21-72) U/L Alkaline Phosphatase 365 H (38-126) U/L Total Protein 5.6 L (6.3-8.3) g/dL Albumin 2.5 L (3.5-5.0) g/dL Globulin 3.1 (2.2-3.9) gm/dL Albumin/Globulin Ratio 0.8 L (1.0-2.1) 06/07/16 06/07/16 06/06/16 Range/Units 05:12 00:08 18:03 WBC (4.8-10.8) K/uL RBC (4.40-5.90) Mil/uL Hgb (12.0-18.0) g/dL Hct (35.0-51.0) % MCV (80.0-94.0) fL MCH (27.0-31.0) pg MCHC (33.0-37.0) g/dL RDW (11.5-14.5) % Plt Count (130-400) K/uL MPV (7.2-11.7) fL Neut % (Auto) (50.0-75.0) % Lymph % (Auto) (20.0-40.0) % Jerome % (Auto) (0.0-10.0) % Eos % (Auto) (0.0-4.0) % Baso % (Auto) (0.0-2.0) % Neut # (1.8-7.0) K/uL Lymph # (1.0-4.3) K/uL Jerome # (0.0-0.8) K/uL Eos # (0.0-0.7) K/uL Baso # (0.0-0.2) K/uL Neutrophils % (Manual) (50-75) % Band Neutrophils % (0-2) % Lymphocytes % (Manual) (20-40) % Monocytes % (Manual) (0-10) % Eosinophils % (Manual) (0-4) % Platelet Estimate (NORMAL) Polychromasia Anisocytosis (manual) Target Cells Tear Drop Cells Puncture Site Rrad pCO2 48 H (35-45) mm/Hg pO2 96 (80-100) mm/Hg HCO3 22.5 (21-28) mmol/L ABG pH 7.30 L (7.35-7.45) ABG Total CO2 25.1 (22-28) mmol/L ABG O2 Saturation 98.4 H (95-98) % ABG Base Excess -3.1 L (-2.0-3.0) mmol/L ABG Hemoglobin 12.5 (11.7-17.4) g/dL ABG Carboxyhemoglobin 1.5 (0.5-1.5) % POC ABG HHb (Measured) 1.6 (0.0-5.0) % ABG Methemoglobin 1.3 (0.0-3.0) % Philippe Test Pos A-a O2 Difference 272.0 mm/Hg Respiratory Index 2.8 Hgb O2 Saturation 95.7 (95.0-98.0) % Mechanical Rate 24 FiO2 60.0 % Tidal Volume 500 PEEP 9 Sodium (132-148) mmol/L Potassium (3.6-5.2) mmol/L Chloride (98-107) mmol/L Carbon Dioxide (22-30) mmol/L Anion Gap (10-20) BUN (9-20) mg/dL Creatinine (0.8-1.5) MG/DL Est GFR ( Amer) Est GFR (Non-Af Amer) POC Glucose (mg/dL) 322 H 273 H (65-110) mg/dL Random Glucose (75-110) mg/dL Calcium (8.6-10.4) mg/dl Phosphorus (2.5-4.5) mg/dL Magnesium (1.6-2.3) mg/dL Total Bilirubin (0.2-1.3) mg/dL AST (17-59) U/L ALT (21-72) U/L Alkaline Phosphatase (38-126) U/L Total Protein (6.3-8.3) g/dL Albumin (3.5-5.0) g/dL Globulin (2.2-3.9) gm/dL Albumin/Globulin Ratio (1.0-2.1) Laboratory Results - last 24 hr 06/06/16 06/07/16 06/07/16 18:03 00:08 05:12 WBC RBC Hgb Hct MCV MCH MCHC RDW Plt Count MPV Neut % (Auto) Lymph % (Auto) Jerome % (Auto) Eos % (Auto) Baso % (Auto) Neut # Lymph # Jerome # Eos # Baso # Neutrophils % (Manual) Band Neutrophils % Lymphocytes % (Manual) Monocytes % (Manual) Eosinophils % (Manual) Platelet Estimate Polychromasia Anisocytosis (manual) Target Cells Tear Drop Cells Puncture Site Rrad pCO2 48 H pO2 96 HCO3 22.5 ABG pH 7.30 L ABG Total CO2 25.1 ABG O2 Saturation 98.4 H ABG Base Excess -3.1 L ABG Hemoglobin 12.5 ABG Carboxyhemoglobin 1.5 POC ABG HHb (Measured) 1.6 ABG Methemoglobin 1.3 Philippe Test Pos A-a O2 Difference 272.0 Respiratory Index 2.8 Hgb O2 Saturation 95.7 Mechanical Rate 24 FiO2 60.0 Tidal Volume 500 PEEP 9 Sodium Potassium Chloride Carbon Dioxide Anion Gap BUN Creatinine Est GFR ( Amer) Est GFR (Non-Af Amer) POC Glucose (mg/dL) 273 H 322 H Random Glucose Calcium Phosphorus Magnesium Total Bilirubin AST ALT Alkaline Phosphatase Total Protein Albumin Globulin Albumin/Globulin Ratio 06/07/16 06/07/16 06/07/16 05:25 05:53 12:15 WBC 14.8 H RBC 4.26 L Hgb 12.1 Hct 37.7 MCV 88.5 MCH 28.4 MCHC 32.1 L RDW 17.0 H Plt Count 287 MPV 10.9 Neut % (Auto) 82.9 H Lymph % (Auto) 7.7 L Jerome % (Auto) 8.4 Eos % (Auto) 0.5 Baso % (Auto) 0.5 Neut # 12.3 H Lymph # 1.1 Jerome # 1.2 H Eos # 0.1 Baso # 0.1 Neutrophils % (Manual) 72 Band Neutrophils % 17 H* Lymphocytes % (Manual) 4 L Monocytes % (Manual) 5 Eosinophils % (Manual) 2 Platelet Estimate Normal Polychromasia Slight Anisocytosis (manual) Slight Target Cells Slight Tear Drop Cells Slight Puncture Site pCO2 pO2 HCO3 ABG pH ABG Total CO2 ABG O2 Saturation ABG Base Excess ABG Hemoglobin ABG Carboxyhemoglobin POC ABG HHb (Measured) ABG Methemoglobin Philippe Test A-a O2 Difference Respiratory Index Hgb O2 Saturation Mechanical Rate FiO2 Tidal Volume PEEP Sodium 138 Potassium 5.0 Chloride 102 Carbon Dioxide 26 Anion Gap 16 BUN 73 H Creatinine 2.0 H Est GFR ( Amer) 44 Est GFR (Non-Af Amer) 36 POC Glucose (mg/dL) 317 H 347 H Random Glucose 328 H Calcium 7.4 L Phosphorus 4.9 H Magnesium 2.1 Total Bilirubin 0.7 AST 52 ALT 56 Alkaline Phosphatase 365 H Total Protein 5.6 L Albumin 2.5 L Globulin 3.1 Albumin/Globulin Ratio 0.8 L Fingerstick Blood Sugar Results: 347 Review of Systems - Review of Systems Review of Systems: as noted in subjective Critical Care Progress Note - Nutrition Nutrition: Nutrition Category Date Time Status NPO Diet [DIET] Diets 06/06/16 Breakfast Active Assessment/Plan - Assessment and Plan (Free Text) Assessment: Patient is a 45M with PMHx of COPD, asthma, DM, HN, DVT in RLE, NSTEMI in 2015, gallstones, liver cirrhosis, and CKD presents with c/o a RLE pain and swelling. Pt recently admitted to [facility] and found to have DVD in his RLE and discharged on Xarelto. Repeat venous doppler is consistent with extensive R femoral and iliac vein DVT. Code blue was called on 06/04/16 due to pt being unresponsive. Chest compression started. Patient was intubated on the medical floor and transferred to the ICU. Plan: Neuro: Intubated and sedated on Propofol CV: Hemodynamically stable Hx of HTN - off antihypertensives Hx of NSTEMI (01/2016) Hx of CHF 01/2016 ECHO: LVEF 60-65% 05/2016 ECHO: LVEF 55-60%, mild pulmonary HTN Off Crestor 2/2 to elevated BUN/Cr Off beta-asmita 2/2 to acute respiratory failure Aspirin 81mg PO daily Pulm: Intubated and sedated PEEP 9, FiO2 60% Acute respiratory failure with hypercarbia and hypoxia requiring intubation () Possible aspiration pneumonia - abx as below Unable to perform CT angio PE control 2/2 CKD Likely obesity hypoventilation and JOVANI Former smoker (quit 5 yrs ago) Hx of COPD Hx of Asthma 06/07/16 CXR: In situ ETT, tip of which lies approximately 5.75 cm above fish. Situ NGT is also felt be present however the distal aspect poorly seen.Cardiomegaly with persistent bilateral infiltrates and bilateral effusions likely due to pulmonary vascular congestion however bilateral pneumonia not excluded. 06/06/16 CXR: In situ ETT, tip of which lies approximately 4.26 cm above fish. Mild central pulmonary vascular congestive changes with bilateral lower lobe alveolar-type infiltrates and bilateral effusions. Duoneb 3mg/0.5 Mg Solumedrol 40mg IV Q12h decreased to 20 mg Q12 Heme: LE DVT now on Eliquis 5mg Thrombosis of the R iliac and common femoral vein 05/25/16 (Venous US LE b/l): no evidency of hemodynamically significant insufficiency in the RLE. 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 Normal venous flow noted in the L common femoral vein. Patient was planned for thrombolysis for 06/06 - postponed per surgical team Heme-onc (Dr. 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 Rhoades for dialysis management Nephrotic syndrome BUN/Cr: 63/2.0 Hyperkalemia improving, patient getting Kayexalate Nephro (Dr. Rhoades) on board - help appreciated Campbell in, monitor strict I/O ID: Sepsis Bacteremia - resolved possible aspiration PNA 06/04/16 MRSA, blood, trachasp, urine cultures - all negative WBC 14.8, 17% bands Procalcitonin: 16.04 (06/05/16) Dr. Marsh on board - help appreciated Empiric coverage with aztreonam and cefepime. Per Dr. Marsh's note (06/06/16): continue with dual coverage 2/2 elevated BMI and renal insufficiency. Will F/U with attending Prophylaxis: SCDs contraindicated due to DVT Eliquis 5mg PO BID for DVT RLE Pepcid 20mg PO daily for GI ppx NS 125cc/hr Tube feedings PT/OT evaluation and treatment when clinically stable Code status - full code <Alex Cruz - Last Filed: 06/07/16 18:01> CCU Objective - Vital Signs / Intake & Output Vital Signs (Last 4 hours): Vital Signs Temp Pulse Resp BP BP Pulse Ox 06/07/16 17:53 138/79 06/07/16 17:23 129/72 06/07/16 17:00 86 24 136/78 97 06/07/16 16:53 140/77 06/07/16 16:35 151/85 H 06/07/16 16:23 136/77 06/07/16 16:08 140/76 06/07/16 16:00 98.6 F 78 24 94/59 L 96 06/07/16 15:51 98 F 84 24 141/78 06/07/16 15:00 77 24 101/57 L 97 06/07/16 14:00 76 24 101/65 96 Intake and Output (Last 8hrs): Intake & Output 06/07/16 06/07/16 06/07/16 06:59 14:59 22:59 Intake Total 1740.6 1695.4 619.2 Output Total 950 Balance 790.6 1695.4 619.2 Weight 350 lb 8.56 oz Intake: Intake, IV Amount 1360.6 1375.4 499.2 Right Antecubital 385.6 375.4 124.2 Left Femoral 975 1000 375 Oral 60 Tube Feeding 320 320 120 Output: Urine 950 Urethral (Campbell) 950 Other: # Bowel Movements 1 - Medications Active Medications: Active Medications Generic Name Dose Route Start Last Admin Trade Name Freq PRN Reason Stop Dose Admin Acetaminophen 650 mg 06/04/16 00:38 06/04/16 13:35 Tylenol 325mg Tab PO 650 mg Q6 PRN Administration Fever >100.4 F Acetylcysteine 4 ml 06/04/16 00:01 06/07/16 17:42 Acetylcysteine 20% PO 4 ml BID ANABELLA Administration Albuterol/Ipratropium 3 ml 06/05/16 20:00 06/07/16 13:09 Duoneb 3 Mg/0.5 Mg (3 Ml) Ud INH 3 ml RQ6 ANABELLA Administration Apixaban 5 mg 06/05/16 10:00 06/07/16 17:42 Eliquis PO 5 mg BID ANABELLA Administration Aspirin 81 mg 05/26/16 10:00 06/07/16 09:46 Aspirin Chewable PO 81 mg DAILY ANABELLA Administration Calcium Acetate 667 mg 06/06/16 12:00 06/07/16 17:42 Phoslo GT 667 mg TIDCC ANABELLA Administration Famotidine 20 mg 06/04/16 11:45 06/07/16 09:45 Pepcid IVP 20 mg DAILY ANABELLA Administration Aztreonam 1 gm/ Sodium 100 mls @ 100 mls/hr 06/04/16 10:00 06/07/16 09:48 Chloride IVPB 100 mls/hr Q12H ANABELLA Administration Sodium Chloride 1,000 mls @ 125 mls/hr 06/04/16 16:45 06/07/16 17:44 Sodium Chloride 0.9% IV 125 mls/hr .Q8H ANABELLA Administration Propofol 100 mls @ 4.817 mls/hr 06/05/16 22:46 06/07/16 15:19 Diprivan IV 48.172 mls/hr .[id number] PRN Administration TITRATE PER MD ORDER Protocol 5 MCG/KG/MIN Cefepime HCl 1 gm/ Dextrose 50 mls @ 100 mls/hr 06/06/16 21:00 06/07/16 10:30 IVPB 100 mls/hr Q12H ANABELLA Administration Insulin Human Regular 0 unit 06/07/16 12:00 06/07/16 17:46 Novolin R SC 6 unit Q6 ANABELLA Administration Protocol Lorazepam 2 mg 06/06/16 14:53 06/07/16 11:12 Ativan IVP 2 mg Q6H PRN Administration Anxiety Methylprednisolone 20 mg 06/07/16 10:09 Solu-Medrol IV Q12 ANABELLA - Patient Studies Lab Studies: Microbiology Studies 06/04/16 16:47 Blood Culture - Preliminary Blood-Thru Central Line NO GROWTH AFTER 3 DAYS 06/04/16 16:47 Blood Culture - Preliminary Blood-Thru Central Line NO GROWTH AFTER 3 DAYS Lab Studies 06/07/16 06/07/16 06/07/16 Range/Units 17:45 15:53 12:15 WBC (4.8-10.8) K/uL RBC (4.40-5.90) Mil/uL Hgb (12.0-18.0) g/dL Hct (35.0-51.0) % MCV (80.0-94.0) fL MCH (27.0-31.0) pg MCHC (33.0-37.0) g/dL RDW (11.5-14.5) % Plt Count (130-400) K/uL MPV (7.2-11.7) fL Neut % (Auto) (50.0-75.0) % Lymph % (Auto) (20.0-40.0) % Jerome % (Auto) (0.0-10.0) % Eos % (Auto) (0.0-4.0) % Baso % (Auto) (0.0-2.0) % Neut # (1.8-7.0) K/uL Lymph # (1.0-4.3) K/uL Jerome # (0.0-0.8) K/uL Eos # (0.0-0.7) K/uL Baso # (0.0-0.2) K/uL Neutrophils % (Manual) (50-75) % Band Neutrophils % (0-2) % Lymphocytes % (Manual) (20-40) % Monocytes % (Manual) (0-10) % Eosinophils % (Manual) (0-4) % Platelet Estimate (NORMAL) Polychromasia Anisocytosis (manual) Target Cells Tear Drop Cells Puncture Site pCO2 (35-45) mm/Hg pO2 (80-100) mm/Hg HCO3 (21-28) mmol/L ABG pH (7.35-7.45) ABG Total CO2 (22-28) mmol/L ABG O2 Saturation (95-98) % ABG Base Excess (-2.0-3.0) mmol/L ABG Hemoglobin (11.7-17.4) g/dL ABG Carboxyhemoglobin (0.5-1.5) % POC ABG HHb (Measured) (0.0-5.0) % ABG Methemoglobin (0.0-3.0) % Philippe Test A-a O2 Difference mm/Hg Respiratory Index Hgb O2 Saturation (95.0-98.0) % Mechanical Rate FiO2 % Tidal Volume PEEP Sodium (132-148) mmol/L Potassium (3.6-5.2) mmol/L Chloride (98-107) mmol/L Carbon Dioxide (22-30) mmol/L Anion Gap (10-20) BUN (9-20) mg/dL Creatinine (0.8-1.5) MG/DL Est GFR ( Amer) Est GFR (Non-Af Amer) POC Glucose (mg/dL) 271 H 347 H (65-110) mg/dL Random Glucose (75-110) mg/dL Calcium (8.6-10.4) mg/dl Phosphorus (2.5-4.5) mg/dL Magnesium (1.6-2.3) mg/dL Total Bilirubin (0.2-1.3) mg/dL AST (17-59) U/L ALT (21-72) U/L Alkaline Phosphatase (38-126) U/L Total Protein (6.3-8.3) g/dL Albumin (3.5-5.0) g/dL Globulin (2.2-3.9) gm/dL Albumin/Globulin Ratio (1.0-2.1) Hep Bs Antigen Negative (NEGATIVE) Hep B Core IgM Ab Negative (NEGATIVE) Hepatitis C Antibody Negative (NEGATIVE) 06/07/16 06/07/16 06/07/16 Range/Units 05:53 05:25 05:12 WBC 14.8 H (4.8-10.8) K/uL RBC 4.26 L (4.40-5.90) Mil/uL Hgb 12.1 (12.0-18.0) g/dL Hct 37.7 (35.0-51.0) % MCV 88.5 (80.0-94.0) fL MCH 28.4 (27.0-31.0) pg MCHC 32.1 L (33.0-37.0) g/dL RDW 17.0 H (11.5-14.5) % Plt Count 287 (130-400) K/uL MPV 10.9 (7.2-11.7) fL Neut % (Auto) 82.9 H (50.0-75.0) % Lymph % (Auto) 7.7 L (20.0-40.0) % Jerome % (Auto) 8.4 (0.0-10.0) % Eos % (Auto) 0.5 (0.0-4.0) % Baso % (Auto) 0.5 (0.0-2.0) % Neut # 12.3 H (1.8-7.0) K/uL Lymph # 1.1 (1.0-4.3) K/uL Jerome # 1.2 H (0.0-0.8) K/uL Eos # 0.1 (0.0-0.7) K/uL Baso # 0.1 (0.0-0.2) K/uL Neutrophils % (Manual) 72 (50-75) % Band Neutrophils % 17 H* (0-2) % Lymphocytes % (Manual) 4 L (20-40) % Monocytes % (Manual) 5 (0-10) % Eosinophils % (Manual) 2 (0-4) % Platelet Estimate Normal (NORMAL) Polychromasia Slight Anisocytosis (manual) Slight Target Cells Slight Tear Drop Cells Slight Puncture Site Rrad pCO2 48 H (35-45) mm/Hg pO2 96 (80-100) mm/Hg HCO3 22.5 (21-28) mmol/L ABG pH 7.30 L (7.35-7.45) ABG Total CO2 25.1 (22-28) mmol/L ABG O2 Saturation 98.4 H (95-98) % ABG Base Excess -3.1 L (-2.0-3.0) mmol/L ABG Hemoglobin 12.5 (11.7-17.4) g/dL ABG Carboxyhemoglobin 1.5 (0.5-1.5) % POC ABG HHb (Measured) 1.6 (0.0-5.0) % ABG Methemoglobin 1.3 (0.0-3.0) % Philippe Test Pos A-a O2 Difference 272.0 mm/Hg Respiratory Index 2.8 Hgb O2 Saturation 95.7 (95.0-98.0) % Mechanical Rate 24 FiO2 60.0 % Tidal Volume 500 PEEP 9 Sodium 138 (132-148) mmol/L Potassium 5.0 (3.6-5.2) mmol/L Chloride 102 (98-107) mmol/L Carbon Dioxide 26 (22-30) mmol/L Anion Gap 16 (10-20) BUN 73 H (9-20) mg/dL Creatinine 2.0 H (0.8-1.5) MG/DL Est GFR ( Amer) 44 Est GFR (Non-Af Amer) 36 POC Glucose (mg/dL) 317 H (65-110) mg/dL Random Glucose 328 H (75-110) mg/dL Calcium 7.4 L (8.6-10.4) mg/dl Phosphorus 4.9 H (2.5-4.5) mg/dL Magnesium 2.1 (1.6-2.3) mg/dL Total Bilirubin 0.7 (0.2-1.3) mg/dL AST 52 (17-59) U/L ALT 56 (21-72) U/L Alkaline Phosphatase 365 H (38-126) U/L Total Protein 5.6 L (6.3-8.3) g/dL Albumin 2.5 L (3.5-5.0) g/dL Globulin 3.1 (2.2-3.9) gm/dL Albumin/Globulin Ratio 0.8 L (1.0-2.1) Hep Bs Antigen (NEGATIVE) Hep B Core IgM Ab (NEGATIVE) Hepatitis C Antibody (NEGATIVE) 06/07/16 06/06/16 Range/Units 00:08 18:03 WBC (4.8-10.8) K/uL RBC (4.40-5.90) Mil/uL Hgb (12.0-18.0) g/dL Hct (35.0-51.0) % MCV (80.0-94.0) fL MCH (27.0-31.0) pg MCHC (33.0-37.0) g/dL RDW (11.5-14.5) % Plt Count (130-400) K/uL MPV (7.2-11.7) fL Neut % (Auto) (50.0-75.0) % Lymph % (Auto) (20.0-40.0) % Jerome % (Auto) (0.0-10.0) % Eos % (Auto) (0.0-4.0) % Baso % (Auto) (0.0-2.0) % Neut # (1.8-7.0) K/uL Lymph # (1.0-4.3) K/uL Jerome # (0.0-0.8) K/uL Eos # (0.0-0.7) K/uL Baso # (0.0-0.2) K/uL Neutrophils % (Manual) (50-75) % Band Neutrophils % (0-2) % Lymphocytes % (Manual) (20-40) % Monocytes % (Manual) (0-10) % Eosinophils % (Manual) (0-4) % Platelet Estimate (NORMAL) Polychromasia Anisocytosis (manual) Target Cells Tear Drop Cells Puncture Site pCO2 (35-45) mm/Hg pO2 (80-100) mm/Hg HCO3 (21-28) mmol/L ABG pH (7.35-7.45) ABG Total CO2 (22-28) mmol/L ABG O2 Saturation (95-98) % ABG Base Excess (-2.0-3.0) mmol/L ABG Hemoglobin (11.7-17.4) g/dL ABG Carboxyhemoglobin (0.5-1.5) % POC ABG HHb (Measured) (0.0-5.0) % ABG Methemoglobin (0.0-3.0) % Philippe Test A-a O2 Difference mm/Hg Respiratory Index Hgb O2 Saturation (95.0-98.0) % Mechanical Rate FiO2 % Tidal Volume PEEP Sodium (132-148) mmol/L Potassium (3.6-5.2) mmol/L Chloride (98-107) mmol/L Carbon Dioxide (22-30) mmol/L Anion Gap (10-20) BUN (9-20) mg/dL Creatinine (0.8-1.5) MG/DL Est GFR ( Amer) Est GFR (Non-Af Amer) POC Glucose (mg/dL) 322 H 273 H (65-110) mg/dL Random Glucose (75-110) mg/dL Calcium (8.6-10.4) mg/dl Phosphorus (2.5-4.5) mg/dL Magnesium (1.6-2.3) mg/dL Total Bilirubin (0.2-1.3) mg/dL AST (17-59) U/L ALT (21-72) U/L Alkaline Phosphatase (38-126) U/L Total Protein (6.3-8.3) g/dL Albumin (3.5-5.0) g/dL Globulin (2.2-3.9) gm/dL Albumin/Globulin Ratio (1.0-2.1) Hep Bs Antigen (NEGATIVE) Hep B Core IgM Ab (NEGATIVE) Hepatitis C Antibody (NEGATIVE) Laboratory Results - last 24 hr 0306/07/16 06/07/16 18:03 00:08 05:12 WBC RBC Hgb Hct MCV MCH MCHC RDW Plt Count MPV Neut % (Auto) Lymph % (Auto) Jerome % (Auto) Eos % (Auto) Baso % (Auto) Neut # Lymph # Jerome # Eos # Baso # Neutrophils % (Manual) Band Neutrophils % Lymphocytes % (Manual) Monocytes % (Manual) Eosinophils % (Manual) Platelet Estimate Polychromasia Anisocytosis (manual) Target Cells Tear Drop Cells Puncture Site Rrad pCO2 48 H pO2 96 HCO3 22.5 ABG pH 7.30 L ABG Total CO2 25.1 ABG O2 Saturation 98.4 H ABG Base Excess -3.1 L ABG Hemoglobin 12.5 ABG Carboxyhemoglobin 1.5 POC ABG HHb (Measured) 1.6 ABG Methemoglobin 1.3 Philippe Test Pos A-a O2 Difference 272.0 Respiratory Index 2.8 Hgb O2 Saturation 95.7 Mechanical Rate 24 FiO2 60.0 Tidal Volume 500 PEEP 9 Sodium Potassium Chloride Carbon Dioxide Anion Gap BUN Creatinine Est GFR ( Amer) Est GFR (Non-Af Amer) POC Glucose (mg/dL) 273 H 322 H Random Glucose Calcium Phosphorus Magnesium Total Bilirubin AST ALT Alkaline Phosphatase Total Protein Albumin Globulin Albumin/Globulin Ratio Hep Bs Antigen Hep B Core IgM Ab Hepatitis C Antibody 06/07/16 06/07/16 06/07/16 05:25 05:53 12:15 WBC 14.8 H RBC 4.26 L Hgb 12.1 Hct 37.7 MCV 88.5 MCH 28.4 MCHC 32.1 L RDW 17.0 H Plt Count 287 MPV 10.9 Neut % (Auto) 82.9 H Lymph % (Auto) 7.7 L Jerome % (Auto) 8.4 Eos % (Auto) 0.5 Baso % (Auto) 0.5 Neut # 12.3 H Lymph # 1.1 Jerome # 1.2 H Eos # 0.1 Baso # 0.1 Neutrophils % (Manual) 72 Band Neutrophils % 17 H* Lymphocytes % (Manual) 4 L Monocytes % (Manual) 5 Eosinophils % (Manual) 2 Platelet Estimate Normal Polychromasia Slight Anisocytosis (manual) Slight Target Cells Slight Tear Drop Cells Slight Puncture Site pCO2 pO2 HCO3 ABG pH ABG Total CO2 ABG O2 Saturation ABG Base Excess ABG Hemoglobin ABG Carboxyhemoglobin POC ABG HHb (Measured) ABG Methemoglobin Philippe Test A-a O2 Difference Respiratory Index Hgb O2 Saturation Mechanical Rate FiO2 Tidal Volume PEEP Sodium 138 Potassium 5.0 Chloride 102 Carbon Dioxide 26 Anion Gap 16 BUN 73 H Creatinine 2.0 H Est GFR ( Amer) 44 Est GFR (Non-Af Amer) 36 POC Glucose (mg/dL) 317 H 347 H Random Glucose 328 H Calcium 7.4 L Phosphorus 4.9 H Magnesium 2.1 Total Bilirubin 0.7 AST 52 ALT 56 Alkaline Phosphatase 365 H Total Protein 5.6 L Albumin 2.5 L Globulin 3.1 Albumin/Globulin Ratio 0.8 L Hep Bs Antigen Hep B Core IgM Ab Hepatitis C Antibody 06/07/16 06/07/16 15:53 17:45 WBC RBC Hgb Hct MCV MCH MCHC RDW Plt Count MPV Neut % (Auto) Lymph % (Auto) Jerome % (Auto) Eos % (Auto) Baso % (Auto) Neut # Lymph # Jerome # Eos # Baso # Neutrophils % (Manual) Band Neutrophils % Lymphocytes % (Manual) Monocytes % (Manual) Eosinophils % (Manual) Platelet Estimate Polychromasia Anisocytosis (manual) Target Cells Tear Drop Cells Puncture Site pCO2 pO2 HCO3 ABG pH ABG Total CO2 ABG O2 Saturation ABG Base Excess ABG Hemoglobin ABG Carboxyhemoglobin POC ABG HHb (Measured) ABG Methemoglobin Philippe Test A-a O2 Difference Respiratory Index Hgb O2 Saturation Mechanical Rate FiO2 Tidal Volume PEEP Sodium Potassium Chloride Carbon Dioxide Anion Gap BUN Creatinine Est GFR ( Amer) Est GFR (Non-Af Amer) POC Glucose (mg/dL) 271 H Random Glucose Calcium Phosphorus Magnesium Total Bilirubin AST ALT Alkaline Phosphatase Total Protein Albumin Globulin Albumin/Globulin Ratio Hep Bs Antigen Negative Hep B Core IgM Ab Negative Hepatitis C Antibody Negative Critical Care Progress Note - Nutrition Nutrition: Nutrition Category Date Time Status NPO Diet [DIET] Diets 06/06/16 Breakfast Active Assessment/Plan (1) Respiratory arrest Current Visit: Yes Status: Acute (2) Chronic kidney disease, stage 3 (moderate) Current Visit: Yes Status: Acute (3) Deep venous thrombosis of lower extremity Current Visit: No Status: Acute (4) Hyperkalemia Current Visit: Yes Status: Acute Attending/Attestation - Attestation I have personally seen and examined this patient.: Yes I have fully participated in the care of the patient.: Yes I have reviewed all pertinent clinical information: Yes Notes (Text): 06/07/16 17:59 Patient seen and examined in the intensive care unit. Case discussed with staff in the morning rounds. He remains intubated on ventilatory support requiring 70% FiO2 Worsening bilateral infiltrate consistent with pneumonia/fluid overload Consider hemodialysis Continue antibiotics NG tube feeding
--- NOTE | 2016-06-07 15:08 | CP.PCM.PN ---
Subjective - Date & Time of Evaluation Date of Evaluation: 06/07/16 Time of Evaluation: 07:40 - Subjective Subjective: Vascular Surgery Pt S&E, NAEO. Pt intubated and sedated. Objective - Vital Signs/Intake and Output Vital Signs (last 24 hours): Temp Pulse Resp BP Pulse Ox 99.1 F 78 24 140/77 96 06/07/16 12:00 06/07/16 13:00 06/07/16 13:00 06/07/16 13:00 06/07/16 13:00 Intake and Output: 06/07/16 06/07/16 06:59 18:59 Intake Total 2573.4 1492.4 Output Total 1420 Balance 1153.4 1492.4 - Medications Medications: Current Medications Acetaminophen (Tylenol 325mg Tab) 650 mg PO Q6 PRN PRN Reason: Fever >100.4 F Last Admin: 06/04/16 13:35 Dose: 650 mg Acetylcysteine (Acetylcysteine 20%) 4 ml PO BID [facility] Last Admin: 06/07/16 09:47 Dose: 4 ml Albuterol/Ipratropium (Duoneb 3 Mg/0.5 Mg (3 Ml) Ud) 3 ml INH RQ6 [facility] Last Admin: 06/07/16 13:09 Dose: 3 ml Apixaban (Eliquis) 5 mg PO BID [facility] Last Admin: 06/07/16 09:47 Dose: 5 mg Aspirin (Aspirin Chewable) 81 mg PO DAILY [facility] Last Admin: 06/07/16 09:46 Dose: 81 mg Calcium Acetate (Phoslo) 667 mg GT TIDCC [facility] Last Admin: 06/07/16 09:00 Dose: 667 mg Famotidine (Pepcid) 20 mg IVP DAILY [facility] Last Admin: 06/07/16 09:45 Dose: 20 mg Aztreonam 1 gm/ Sodium (Chloride) 100 mls @ 100 mls/hr IVPB Q12H [facility] Last Admin: 06/07/16 09:48 Dose: 100 mls/hr Sodium Chloride (Sodium Chloride 0.9%) 1,000 mls @ 125 mls/hr IV .Q8H [facility] Last Admin: 06/07/16 09:55 Dose: 125 mls/hr Propofol (Diprivan) 100 mls @ 4.817 mls/hr IV .[id number] PRN; Protocol; 5 MCG/KG/ MIN PRN Reason: TITRATE PER MD ORDER Last Admin: 06/07/16 13:25 Dose: 48.172 mls/hr Cefepime HCl 1 gm/ Dextrose 50 mls @ 100 mls/hr IVPB Q12H [facility] Last Admin: 06/06/16 22:00 Dose: 100 mls/hr Insulin Human Regular (Novolin R) 0 unit SC Q6 [facility] PRN Reason: Protocol Lorazepam (Ativan) 2 mg IVP Q6H PRN PRN Reason: Anxiety Last Admin: 06/07/16 11:12 Dose: 2 mg Methylprednisolone (Solu-Medrol) 20 mg IV Q12 [facility] - Labs Labs: 06/07/16 05:53 06/07/16 05:53 PT 13.9 SECONDS (9.7-12.2) H 05/27/16 09:38 INR 1.2 05/27/16 09:38 APTT 65 SECONDS (21-34) H 05/29/16 10:50 - Constitutional Appears: Non-toxic, No Acute Distress - Head Exam Head Exam: ATRAUMATIC, NORMOCEPHALIC - Respiratory Exam Respiratory Exam: NORMAL BREATHING PATTERN (on vent). absent: Respiratory Distress - Cardiovascular Exam Cardiovascular Exam: RRR, +S1, +S2 - GI/Abdominal Exam GI & Abdominal Exam: Soft. absent: Distended - Extremities Exam Extremities Exam: Pedal Edema. absent: Normal Inspection (erythema of RLE) - Skin Skin Exam: Dry, Warm Assessment and Plan - Assessment and Plan (Free Text) Assessment: 45M S/P code blue with RLE DVT and presumed PE Plan: Medical Management No thrombolysis procedure planned until stable. PGY3
--- NOTE | 2016-06-07 16:45 | CP.PCM.PN ---
Subjective - Date & Time of Evaluation Date of Evaluation: 06/07/16 Time of Evaluation: 12:30 - Subjective Subjective: Patient was seen and examined earlier in the day. Family members present included and mother at bedside The patient remains intubated at this time. The CXRAY shows a lot of congestion , considering the patient's renal function he will be getting HD sometime later today to see if this fluid removal can help with extubation. At this time he also remains on IV Cefepime as well as IV Aztreonam Objective - Vital Signs/Intake and Output Vital Signs (last 24 hours): Temp Pulse Resp BP Pulse Ox 98.6 F 78 24 94/59 L 96 06/07/16 16:00 06/07/16 16:00 06/07/16 16:00 06/07/16 16:00 06/07/16 16:00 Intake and Output: 06/07/16 06/07/16 06:59 18:59 Intake Total 2573.4 2101.4 Output Total 1420 Balance 1153.4 2101.4 - Medications Medications: Current Medications Acetaminophen (Tylenol 325mg Tab) 650 mg PO Q6 PRN PRN Reason: Fever >100.4 F Last Admin: 06/04/16 13:35 Dose: 650 mg Acetylcysteine (Acetylcysteine 20%) 4 ml PO BID [facility] Last Admin: 06/07/16 09:47 Dose: 4 ml Albuterol/Ipratropium (Duoneb 3 Mg/0.5 Mg (3 Ml) Ud) 3 ml INH RQ6 [facility] Last Admin: 06/07/16 13:09 Dose: 3 ml Apixaban (Eliquis) 5 mg PO BID [facility] Last Admin: 06/07/16 09:47 Dose: 5 mg Aspirin (Aspirin Chewable) 81 mg PO DAILY [facility] Last Admin: 06/07/16 09:46 Dose: 81 mg Calcium Acetate (Phoslo) 667 mg GT TIDCC [facility] Last Admin: 06/07/16 13:00 Dose: 667 mg Famotidine (Pepcid) 20 mg IVP DAILY [facility] Last Admin: 06/07/16 09:45 Dose: 20 mg Aztreonam 1 gm/ Sodium (Chloride) 100 mls @ 100 mls/hr IVPB Q12H [facility] Last Admin: 06/07/16 09:48 Dose: 100 mls/hr Sodium Chloride (Sodium Chloride 0.9%) 1,000 mls @ 125 mls/hr IV .Q8H [facility] Last Admin: 06/07/16 09:55 Dose: 125 mls/hr Propofol (Diprivan) 100 mls @ 4.817 mls/hr IV .[id number] PRN; Protocol; 5 MCG/KG/ MIN PRN Reason: TITRATE PER MD ORDER Last Admin: 06/07/16 15:19 Dose: 48.172 mls/hr Cefepime HCl 1 gm/ Dextrose 50 mls @ 100 mls/hr IVPB Q12H [facility] Last Admin: 06/07/16 10:30 Dose: 100 mls/hr Insulin Human Regular (Novolin R) 0 unit SC Q6 [facility] PRN Reason: Protocol Last Admin: 06/07/16 13:00 Dose: 8 unit Lorazepam (Ativan) 2 mg IVP Q6H PRN PRN Reason: Anxiety Last Admin: 06/07/16 11:12 Dose: 2 mg Methylprednisolone (Solu-Medrol) 20 mg IV Q12 [facility] - Labs Labs: 06/07/16 05:53 06/07/16 05:53 PT 13.9 SECONDS (9.7-12.2) H 05/27/16 09:38 INR 1.2 05/27/16 09:38 APTT 65 SECONDS (21-34) H 05/29/16 10:50 - Constitutional Appears: Chronically Ill - ENT Exam ENT Exam: Mucous Membranes Moist - Respiratory Exam Respiratory Exam: Decreased Breath Sounds Additional comments: Mechanical respiration - Neurological Exam Neurological Exam: absent: Awake, Oriented x3 Additional comments: currently undersedation with propofol - Skin Skin Exam: Normal Color Assessment and Plan - Assessment and Plan (Free Text) Assessment: Assessment: 1) Acute respiratory failure 06/07: Patient will be getting HD at some point later today to see if this helps with extubation 06/06: I updated family members with reguards to recent events. He may or may not have a PE or this could be aspiration pneumonia for example. He is on IV abx and also he continues to recieve anticoagulation. * Intubated on 06/04/16 for "Code Blue" called on 06/04/16, patient did not lose pulse * Possible aspiration pneumonia vs less pulmonary embolus despite being on anticoagulation for extensive DVT right lower extremity * Unable to perform CT angio PE control secondary to chronic kidney disease 2) Thrombosis of the R iliac and common femoral vein 06/06: As mentioned before the patient was intended to have thrombolysis of the lower extremity with the chronic DVT however this was not able to be done immediately due to renal function. As of now on anticogulation. 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 normal venous flow noted in the left common femoral vein * Prior to respiratory arrest on 06/04/16, patient was planned for thrombolysis for this upcoming Tuesday 06/06 * Heme-oncology (Dr. 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 Ortega) on board 3) Sepsis 06/06: The most recent blood cultures have been negative for 48 hrs, remains on IV abx. WBC 14 today. No elevated temperatures today * Criteria admission: WBC: 43.8, HR>90, Cr> 2.0, platelets 103 and blood culture: Serattia from 05/25/16 * Now: Criteria: WBC: 25.5, Tmax: 102.1 bands>10, platelets normalized, Cr 2.0, chest xray for possible aspiration pneumonia pending new cultures * Urine culture: no growth * 05/27/16 Blood Venous: No growth After 5 days X2 * Infectious disease (Dr. Marsh) on board * Procalcitonin: 16.1 (05/26/16)--> 31.81 (05/27/16)-->ordered for new one * Aztreonam 1gram IV Q 12hours (active since 05/26/16) and Maxipime 1gram IV Q 12hours (active since 05/29/16) * Abd CT(05/28/16): bilateral inguinal lymphadenopathy, right greater than left. cirrhotic contour of liver. fatty atrophy of the pancreas, splenic atrophy w residula spleen, recitulation and edema seen in subcutanous soft tissues, cholelithiasis, consolidative changes at both lung bases which may represen underying infiltrate. * Ab US (05/28/16): enlarged liver with diffuse fatty infiltration, cholelithiasis, limited visualization of the pancreas * Echocardiogram (05/30/16): EF: 55-60% left ventricular ejection fraction is within normal range. left ventricular diastolic function is normal. trace to mild tricupsid regurgitation, PAP 35-45 mmgHG, mild pulmonary hypertension 4) Acute renal failure on Chronic Kidney disease with Nephrotic Syndrome 06/07: HD to be started some point * Nephrology (Dr. Rhoades) on board-->help appreciated * NS 125 cc/hr (started 06/04/16) * Has dialysis catheter port placed on 06/04/16 by ICU * Monitor potassium levels 5) History of COPD/asthma * Former smoker, quit 5 years ago * currently intubated secondary to respiratory arrest secondary to likely pnuemonia * Chest xray (06/04/16): in site ett and apparent in situ NGT as aboove in distal aspect of the NGT is poorly delinated, cardiomegaly, pulmonary vascular congestive changes with bilateral lower love alveolar-type infiltrates and bilateral effusions 6) History of Congestive Heart failure * 01/2016 ECHO- LV EF 60-65%, mild pulmonary HTN (see full report) * Echocardiogram (05/30/16): EF: 55-60% left ventricular ejection fraction is within normal range. left ventricular diastolic function is normal. trace to mild tricupsid regurgitation, PAP 35-45 mmgHG, mild pulmonary hypertension * off Crestor secondary to elevated BUN/Cr * off beta asmita secondary to acute respiratory failure; hx of copd se worsening bronchospasm * Aspirin 81mg PO daily 7)Diabetes Mellitus * Accuchecks Q6 hours * Novolin sliding scale subq 6hours * Diabetic source 20cc/hr via OGT * ordered for [id number] * Prior a1c shows uncontrolled 8) History of Hypertension * Off antihypertensives 9) Hx of Nonstemi * January 2016 hospitalization * No cardiac cath * Hx of CHF 10) Prophylactic measures - SCDs contraindicated due to DVT - Eliquis 5mg PO BID for DVT Right LE - Pepcid 20mg PO daily for GI ppx - NS 125 cc/hr - Tube feedings - PT/OT
[2016-06-08] MEDS: (Novolin R) Insulin Human Regular 100 units/ml vial SC SCH ×4 (00:45→18:15)
[2016-06-08] MEDS: Albuterol-Ipratrop 3 mg / 0.5 (3 ml) UD INH SCH ×4 (01:06→19:40)
--- NOTE | 2016-06-08 02:32 | CP.PCM.PN ---
Subjective - Date & Time of Evaluation Date of Evaluation: 06/07/16 Time of Evaluation: 17:00 - Subjective Subjective: Vented, family at bedside Objective - Vital Signs/Intake and Output Vital Signs (last 24 hours): Temp Pulse Resp BP Pulse Ox 99 F 75 24 128/72 96 06/08/16 00:00 06/08/16 01:00 06/08/16 01:00 06/08/16 01:00 06/08/16 01:00 Intake and Output: 06/07/16 06/08/16 18:59 06:59 Intake Total 2527.8 1552.4 Output Total 755 Balance 2527.8 797.4 - Medications Medications: Current Medications Acetaminophen (Tylenol 325mg Tab) 650 mg PO Q6 PRN PRN Reason: Fever >100.4 F Last Admin: 06/04/16 13:35 Dose: 650 mg Acetylcysteine (Acetylcysteine 20%) 4 ml PO BID [facility] Last Admin: 06/07/16 17:42 Dose: 4 ml Albuterol/Ipratropium (Duoneb 3 Mg/0.5 Mg (3 Ml) Ud) 3 ml INH RQ6 [facility] Last Admin: 06/08/16 01:06 Dose: 3 ml Apixaban (Eliquis) 5 mg PO BID [facility] Last Admin: 06/07/16 17:42 Dose: 5 mg Aspirin (Aspirin Chewable) 81 mg PO DAILY [facility] Last Admin: 06/07/16 09:46 Dose: 81 mg Calcium Acetate (Phoslo) 667 mg GT TIDCC [facility] Last Admin: 06/07/16 17:42 Dose: 667 mg Famotidine (Pepcid) 20 mg IVP DAILY [facility] Last Admin: 06/07/16 09:45 Dose: 20 mg Aztreonam 1 gm/ Sodium (Chloride) 100 mls @ 100 mls/hr IVPB Q12H [facility] Last Admin: 06/07/16 21:40 Dose: 100 mls/hr Sodium Chloride (Sodium Chloride 0.9%) 1,000 mls @ 125 mls/hr IV .Q8H [facility] Last Admin: 06/07/16 23:45 Dose: 125 mls/hr Propofol (Diprivan) 100 mls @ 4.817 mls/hr IV .[id number] PRN; Protocol; 5 MCG/KG/ MIN PRN Reason: TITRATE PER MD ORDER Last Admin: 06/08/16 01:10 Dose: 48.172 mls/hr Cefepime HCl 1 gm/ Dextrose 50 mls @ 100 mls/hr IVPB Q12H [facility] Last Admin: 06/07/16 20:00 Dose: 100 mls/hr Insulin Human Regular (Novolin R) 0 unit SC Q6 [facility] PRN Reason: Protocol Last Admin: 06/08/16 00:45 Dose: 4 unit Lorazepam (Ativan) 2 mg IVP Q6H PRN PRN Reason: Anxiety Last Admin: 06/07/16 18:13 Dose: 2 mg Methylprednisolone (Solu-Medrol) 20 mg IV Q12 [facility] Last Admin: 06/07/16 21:40 Dose: 20 mg - Labs Labs: 06/07/16 05:53 06/07/16 05:53 PT 13.9 SECONDS (9.7-12.2) H 05/27/16 09:38 INR 1.2 05/27/16 09:38 APTT 65 SECONDS (21-34) H 05/29/16 10:50 - Head Exam Head Exam: ATRAUMATIC - Eye Exam Eye Exam: Normal appearance - ENT Exam ENT Exam: Mucous Membranes Dry - Respiratory Exam Respiratory Exam: NORMAL BREATHING PATTERN - Cardiovascular Exam Cardiovascular Exam: +S1, +S2 - GI/Abdominal Exam GI & Abdominal Exam: Normal Bowel Sounds - Extremities Exam Extremities Exam: Pedal Edema Assessment and Plan (1) Deep venous thrombosis of lower extremity Assessment & Plan: recurrent has multiple antiphospholipid Ab positivity Nephrotic syndrome; 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 Status: Acute (3) Coagulopathy Assessment & Plan: anticoagulation Status: Acute
[2016-06-08 04:45] LABS: ABG ALLEN TEST POS; ABG MECHANICAL RATE 24; ARTERIAL BLOOD HGB O2 SAT 96.6 % (95.0-98.0); ATERIAL BLOOD GAS PEEP 9; CARBOXYHEMOGLOBIN 1.6 % (0.5-1.5); DRAW SITE RR; HHB 0.8 % (0.0-5.0); METHEMOGLOBIN 0.9 % (0.0-3.0)
[2016-06-08] MEDS: Sodium Chloride 0.9% 1,000 ML IV SCH (05:05)
[2016-06-08 06:48] LABS: BASO % 0.2 % (0.0-2.0); EOS # 0.5 K/uL (0.0-0.7); HEMATOCRIT 37.1 % (35.0-51.0); LYMPH % 12.3 % (20.0-40.0); MEAN CELL VOLUME 88.3 fL (80.0-94.0); MEAN CORPUSCULAR HEMOGLOBIN 29.2 pg (27.0-31.0); MEAN CORPUSCULAR HGB CONC 33.1 g/dL (33.0-37.0); MEAN PLATELET VOLUME 10.6 fL (7.2-11.7); MONO # 2.7 K/uL (0.0-0.8); MONO % 16.6 % (0.0-10.0); NRBC % 0.9 % (0.0-2.0); RED CELL DISTRIBUTION WIDTH 16.8 % (11.5-14.5); WHITE BLOOD COUNT 16.1 K/uL (4.8-10.8)
[2016-06-08 06:56] LABS: POTASSIUM 4.7 mmol/L (3.6-5.2)
[2016-06-08 06:58] LABS: ALB/GLOB RATIO 0.8 (1.0-2.1); BILIRUBIN,TOTAL 0.7 mg/dL (0.2-1.3); TOTAL PROTEIN 5.6 g/dL (6.3-8.3)
[2016-06-08 06:59] LABS: CALCIUM 7.4 mg/dl (8.6-10.4); MAGNESIUM 2.1 mg/dL (1.6-2.3); PHOSPHOROUS 4.4 mg/dL (2.5-4.5)
--- NOTE | 2016-06-08 08:37 | CP.CCUPN ---
<Ryan Arreguin - Last Filed: 06/08/16 13:22> CCU Subjective - Physician Review Subjective (Free Text): 06/06/16 15:56 Pt seen and examined. He is intubated and sedated at this time. Patient family friend present bedside. No acute events overnight per nursing. An ROS could nto be obtained at this time due to patient's clinical status. 06/07/16 14:14 Pt seen and examined. He is intubated and sedated at this time. Patient family friend present bedside. No acute events overnight per nursing. Dr. Vargas ( Medicine hospitalist) had extensive discussion with patient's family yesterday regarding patient's status. An ROS could not be obtained at this time due to patient's clinical status. 06/08/16 13:22 Patient was seen and examined at bedside. He is intubated and sedated. No acute events overnight per nursing. ROS could not be obtained at this time due to patient's clinical status. Pt received HD yesterday with 2.5L removed. He tolerated well. CCU Objective - Vital Signs / Intake & Output Vital Signs (Last 4 hours): Vital Signs Pulse Resp BP Pulse Ox 06/08/16 07:00 19 L 24 143/72 94 L 06/08/16 06:00 79 24 137/70 94 L 06/08/16 05:00 91 H 24 128/70 94 L Intake and Output (Last 8hrs): Intake & Output 06/07/16 06/08/16 06/08/16 22:59 06:59 14:59 Intake Total 1745.2 1765.6 396.4 Output Total 350 945 225 Balance 1395.2 820.6 171.4 Weight 360 lb 7.292 oz 348 lb 5.286 oz Intake: Intake, IV Amount 1265.2 1385.6 316.4 Right Antecubital 365.2 385.6 66.4 Left Femoral 900 1000 250 Oral 60 60 Tube Feeding 320 320 80 Other 100 Output: Urine 350 945 225 Urethral (Campbell) 350 945 225 Other: # Bowel Movements 1 1 - Physical Exam Head: Positive for: Atraumatic, Normocephalic Pupils: Positive for: PERRL Conjunctiva: Positive for: Normal Mouth: Positive for: Moist Mucous Membranes Respiratory/Chest: Positive for: Clear to Auscultation Cardiovascular: Positive for: Regular Rate and Rhythm Abdomen: Positive for: Normal Bowel Sounds. Negative for: Tenderness, Distention Upper Extremity: Positive for: Edema Lower Extremity: Positive for: Edema, Swelling, Erythema Skin: Positive for: Warm, Dry - Medications Active Medications: Active Medications Generic Name Dose Route Start Last Admin Trade Name Freq PRN Reason Stop Dose Admin Acetaminophen 650 mg 06/04/16 00:38 06/04/16 13:35 Tylenol 325mg Tab PO 650 mg Q6 PRN Administration Fever >100.4 F Acetylcysteine 4 ml 06/04/16 00:01 06/07/16 17:42 Acetylcysteine 20% PO 4 ml BID ANABELLA Administration Albuterol/Ipratropium 3 ml 06/05/16 20:00 06/08/16 07:14 Duoneb 3 Mg/0.5 Mg (3 Ml) Ud INH 3 ml RQ6 ANABELLA Administration Apixaban 5 mg 06/05/16 10:00 06/07/16 17:42 Eliquis PO 5 mg BID ANABELLA Administration Aspirin 81 mg 05/26/16 10:00 06/07/16 09:46 Aspirin Chewable PO 81 mg DAILY ANABELLA Administration Calcium Acetate 667 mg 06/06/16 12:00 06/07/16 17:42 Phoslo GT 667 mg TIDCC ANABELLA Administration Famotidine 20 mg 06/04/16 11:45 06/07/16 09:45 Pepcid IVP 20 mg DAILY ANABELLA Administration Aztreonam 1 gm/ Sodium 100 mls @ 100 mls/hr 06/04/16 10:00 06/07/16 21:40 Chloride IVPB 100 mls/hr Q12H ANABELLA Administration Sodium Chloride 1,000 mls @ 125 mls/hr 06/04/16 16:45 06/08/16 05:05 Sodium Chloride 0.9% IV 125 mls/hr .Q8H ANABELLA Administration Propofol 100 mls @ 4.817 mls/hr 06/05/16 22:46 06/08/16 07:18 Diprivan IV 48.172 mls/hr .[id number] PRN Administration TITRATE PER MD ORDER Protocol 5 MCG/KG/MIN Cefepime HCl 1 gm/ Dextrose 50 mls @ 100 mls/hr 06/06/16 21:00 06/07/16 20:00 IVPB 100 mls/hr Q12H ANABELLA Administration Insulin Human Regular 0 unit 06/07/16 12:00 06/08/16 05:40 Novolin R SC 6 unit Q6 ANABELLA Administration Protocol Lorazepam 2 mg 06/06/16 14:53 06/07/16 18:13 Ativan IVP 2 mg Q6H PRN Administration Anxiety Methylprednisolone 20 mg 06/07/16 10:09 06/07/16 21:40 Solu-Medrol IV 20 mg Q12 ANABELLA Administration - Patient Studies Lab Studies: Microbiology Studies 06/04/16 16:47 Blood Culture - Preliminary Blood-Thru Central Line NO GROWTH AFTER 3 DAYS 06/04/16 16:47 Blood Culture - Preliminary Blood-Thru Central Line NO GROWTH AFTER 3 DAYS Lab Studies 06/08/16 06/08/16 06/08/16 Range/Units 06:30 05:23 04:25 WBC 16.1 H (4.8-10.8) K/uL RBC 4.20 L (4.40-5.90) Mil/uL Hgb 12.3 (12.0-18.0) g/dL Hct 37.1 (35.0-51.0) % MCV 88.3 (80.0-94.0) fL MCH 29.2 (27.0-31.0) pg MCHC 33.1 (33.0-37.0) g/dL RDW 16.8 H (11.5-14.5) % Plt Count 248 (130-400) K/uL MPV 10.6 (7.2-11.7) fL Neut % (Auto) 67.9 (50.0-75.0) % Lymph % (Auto) 12.3 L (20.0-40.0) % [place] % (Auto) 16.6 H (0.0-10.0) % Eos % (Auto) 3.0 (0.0-4.0) % Baso % (Auto) 0.2 (0.0-2.0) % Neut # 10.9 H (1.8-7.0) K/uL Lymph # 2.0 (1.0-4.3) K/uL [place] # 2.7 H (0.0-0.8) K/uL Eos # 0.5 (0.0-0.7) K/uL Baso # 0.0 (0.0-0.2) K/uL Neutrophils % (Manual) (50-75) % Band Neutrophils % (0-2) % Lymphocytes % (Manual) (20-40) % Monocytes % (Manual) (0-10) % Eosinophils % (Manual) (0-4) % Platelet Estimate (NORMAL) Polychromasia Anisocytosis (manual) Target Cells Tear Drop Cells Puncture Site Rr pCO2 46 H (35-45) mm/Hg pO2 113 H (80-100) mm/Hg HCO3 24.5 (21-28) mmol/L ABG pH 7.35 (7.35-7.45) ABG Total CO2 26.8 (22-28) mmol/L ABG O2 Saturation 99.2 H (95-98) % ABG Base Excess -0.5 (-2.0-3.0) mmol/L ABG Hemoglobin 11.9 (11.7-17.4) g/dL ABG Carboxyhemoglobin 1.6 H (0.5-1.5) % POC ABG HHb (Measured) 0.8 (0.0-5.0) % ABG Methemoglobin 0.9 (0.0-3.0) % Philippe Test Pos A-a O2 Difference 257.0 mm/Hg Respiratory Index 2.3 Hgb O2 Saturation 96.6 (95.0-98.0) % Mechanical Rate 24 FiO2 60.0 % Tidal Volume 500 PEEP 9 Sodium 139 (132-148) mmol/L Potassium 4.7 (3.6-5.2) mmol/L Chloride 103 (98-107) mmol/L Carbon Dioxide 27 (22-30) mmol/L Anion Gap 14 (10-20) BUN 63 H (9-20) mg/dL Creatinine 1.6 H (0.8-1.5) MG/DL Est GFR ( Amer) 57 Est GFR (Non-Af Amer) 47 POC Glucose (mg/dL) 288 H (65-110) mg/dL Random Glucose 266 H (75-110) mg/dL Calcium 7.4 L (8.6-10.4) mg/dl Phosphorus 4.4 (2.5-4.5) mg/dL Magnesium 2.1 (1.6-2.3) mg/dL Total Bilirubin 0.7 (0.2-1.3) mg/dL AST 58 (17-59) U/L ALT 58 (21-72) U/L Alkaline Phosphatase 335 H (38-126) U/L Total Protein 5.6 L (6.3-8.3) g/dL Albumin 2.5 L (3.5-5.0) g/dL Globulin 3.1 (2.2-3.9) gm/dL Albumin/Globulin Ratio 0.8 L (1.0-2.1) Hep Bs Antigen (NEGATIVE) Hep Bs Antibody (NEGATIVE) Hep B Core IgM Ab (NEGATIVE) Hepatitis C Antibody (NEGATIVE) 06/07/16 06/07/16 06/07/16 Range/Units 23:59 17:45 15:53 WBC (4.8-10.8) K/uL RBC (4.40-5.90) Mil/uL Hgb (12.0-18.0) g/dL Hct (35.0-51.0) % MCV (80.0-94.0) fL MCH (27.0-31.0) pg MCHC (33.0-37.0) g/dL RDW (11.5-14.5) % Plt Count (130-400) K/uL MPV (7.2-11.7) fL Neut % (Auto) (50.0-75.0) % Lymph % (Auto) (20.0-40.0) % [place] % (Auto) (0.0-10.0) % Eos % (Auto) (0.0-4.0) % Baso % (Auto) (0.0-2.0) % Neut # (1.8-7.0) K/uL Lymph # (1.0-4.3) K/uL [place] # (0.0-0.8) K/uL Eos # (0.0-0.7) K/uL Baso # (0.0-0.2) K/uL Neutrophils % (Manual) (50-75) % Band Neutrophils % (0-2) % Lymphocytes % (Manual) (20-40) % Monocytes % (Manual) (0-10) % Eosinophils % (Manual) (0-4) % Platelet Estimate (NORMAL) Polychromasia Anisocytosis (manual) Target Cells Tear Drop Cells Puncture Site pCO2 (35-45) mm/Hg pO2 (80-100) mm/Hg HCO3 (21-28) mmol/L ABG pH (7.35-7.45) ABG Total CO2 (22-28) mmol/L ABG O2 Saturation (95-98) % ABG Base Excess (-2.0-3.0) mmol/L ABG Hemoglobin (11.7-17.4) g/dL ABG Carboxyhemoglobin (0.5-1.5) % POC ABG HHb (Measured) (0.0-5.0) % ABG Methemoglobin (0.0-3.0) % Philippe Test A-a O2 Difference mm/Hg Respiratory Index Hgb O2 Saturation (95.0-98.0) % Mechanical Rate FiO2 % Tidal Volume PEEP Sodium (132-148) mmol/L Potassium (3.6-5.2) mmol/L Chloride (98-107) mmol/L Carbon Dioxide (22-30) mmol/L Anion Gap (10-20) BUN (9-20) mg/dL Creatinine (0.8-1.5) MG/DL Est GFR ( Amer) Est GFR (Non-Af Amer) POC Glucose (mg/dL) 222 H 271 H (65-110) mg/dL Random Glucose (75-110) mg/dL Calcium (8.6-10.4) mg/dl Phosphorus (2.5-4.5) mg/dL Magnesium (1.6-2.3) mg/dL Total Bilirubin (0.2-1.3) mg/dL AST (17-59) U/L ALT (21-72) U/L Alkaline Phosphatase (38-126) U/L Total Protein (6.3-8.3) g/dL Albumin (3.5-5.0) g/dL Globulin (2.2-3.9) gm/dL Albumin/Globulin Ratio (1.0-2.1) Hep Bs Antigen Negative (NEGATIVE) Hep Bs Antibody Positive (NEGATIVE) Hep B Core IgM Ab Negative (NEGATIVE) Hepatitis C Antibody Negative (NEGATIVE) 06/07/16 06/07/16 Range/Units 12:15 05:53 WBC (4.8-10.8) K/uL RBC (4.40-5.90) Mil/uL Hgb (12.0-18.0) g/dL Hct (35.0-51.0) % MCV (80.0-94.0) fL MCH (27.0-31.0) pg MCHC (33.0-37.0) g/dL RDW (11.5-14.5) % Plt Count (130-400) K/uL MPV (7.2-11.7) fL Neut % (Auto) (50.0-75.0) % Lymph % (Auto) (20.0-40.0) % [place] % (Auto) (0.0-10.0) % Eos % (Auto) (0.0-4.0) % Baso % (Auto) (0.0-2.0) % Neut # (1.8-7.0) K/uL Lymph # (1.0-4.3) K/uL [place] # (0.0-0.8) K/uL Eos # (0.0-0.7) K/uL Baso # (0.0-0.2) K/uL Neutrophils % (Manual) 72 (50-75) % Band Neutrophils % 17 H* (0-2) % Lymphocytes % (Manual) 4 L (20-40) % Monocytes % (Manual) 5 (0-10) % Eosinophils % (Manual) 2 (0-4) % Platelet Estimate Normal (NORMAL) Polychromasia Slight Anisocytosis (manual) Slight Target Cells Slight Tear Drop Cells Slight Puncture Site pCO2 (35-45) mm/Hg pO2 (80-100) mm/Hg HCO3 (21-28) mmol/L ABG pH (7.35-7.45) ABG Total CO2 (22-28) mmol/L ABG O2 Saturation (95-98) % ABG Base Excess (-2.0-3.0) mmol/L ABG Hemoglobin (11.7-17.4) g/dL ABG Carboxyhemoglobin (0.5-1.5) % POC ABG HHb (Measured) (0.0-5.0) % ABG Methemoglobin (0.0-3.0) % Philippe Test A-a O2 Difference mm/Hg Respiratory Index Hgb O2 Saturation (95.0-98.0) % Mechanical Rate FiO2 % Tidal Volume PEEP Sodium (132-148) mmol/L Potassium (3.6-5.2) mmol/L Chloride (98-107) mmol/L Carbon Dioxide (22-30) mmol/L Anion Gap (10-20) BUN (9-20) mg/dL Creatinine (0.8-1.5) MG/DL Est GFR ( Amer) Est GFR (Non-Af Amer) POC Glucose (mg/dL) 347 H (65-110) mg/dL Random Glucose (75-110) mg/dL Calcium (8.6-10.4) mg/dl Phosphorus (2.5-4.5) mg/dL Magnesium (1.6-2.3) mg/dL Total Bilirubin (0.2-1.3) mg/dL AST (17-59) U/L ALT (21-72) U/L Alkaline Phosphatase (38-126) U/L Total Protein (6.3-8.3) g/dL Albumin (3.5-5.0) g/dL Globulin (2.2-3.9) gm/dL Albumin/Globulin Ratio (1.0-2.1) Hep Bs Antigen (NEGATIVE) Hep Bs Antibody (NEGATIVE) Hep B Core IgM Ab (NEGATIVE) Hepatitis C Antibody (NEGATIVE) Laboratory Results - last 24 hr 06/07/16 06/07/16 06/07/16 05:53 12:15 15:53 WBC RBC Hgb Hct MCV MCH MCHC RDW Plt Count MPV Neut % (Auto) Lymph % (Auto) [place] % (Auto) Eos % (Auto) Baso % (Auto) Neut # Lymph # [place] # Eos # Baso # Neutrophils % (Manual) 72 Band Neutrophils % 17 H* Lymphocytes % (Manual) 4 L Monocytes % (Manual) 5 Eosinophils % (Manual) 2 Platelet Estimate Normal Polychromasia Slight Anisocytosis (manual) Slight Target Cells Slight Tear Drop Cells Slight Puncture Site pCO2 pO2 HCO3 ABG pH ABG Total CO2 ABG O2 Saturation ABG Base Excess ABG Hemoglobin ABG Carboxyhemoglobin POC ABG HHb (Measured) ABG Methemoglobin Philippe Test A-a O2 Difference Respiratory Index Hgb O2 Saturation Mechanical Rate FiO2 Tidal Volume PEEP Sodium Potassium Chloride Carbon Dioxide Anion Gap BUN Creatinine Est GFR ( Amer) Est GFR (Non-Af Amer) POC Glucose (mg/dL) 347 H Random Glucose Calcium Phosphorus Magnesium Total Bilirubin AST ALT Alkaline Phosphatase Total Protein Albumin Globulin Albumin/Globulin Ratio Hep Bs Antigen Negative Hep Bs Antibody Positive Hep B Core IgM Ab Negative Hepatitis C Antibody Negative 06/07/16 06/07/16 06/08/16 17:45 23:59 04:25 WBC RBC Hgb Hct MCV MCH MCHC RDW Plt Count MPV Neut % (Auto) Lymph % (Auto) [place] % (Auto) Eos % (Auto) Baso % (Auto) Neut # Lymph # [place] # Eos # Baso # Neutrophils % (Manual) Band Neutrophils % Lymphocytes % (Manual) Monocytes % (Manual) Eosinophils % (Manual) Platelet Estimate Polychromasia Anisocytosis (manual) Target Cells Tear Drop Cells Puncture Site Rr pCO2 46 H pO2 113 H HCO3 24.5 ABG pH 7.35 ABG Total CO2 26.8 ABG O2 Saturation 99.2 H ABG Base Excess -0.5 ABG Hemoglobin 11.9 ABG Carboxyhemoglobin 1.6 H POC ABG HHb (Measured) 0.8 ABG Methemoglobin 0.9 Philippe Test Pos A-a O2 Difference 257.0 Respiratory Index 2.3 Hgb O2 Saturation 96.6 Mechanical Rate 24 FiO2 60.0 Tidal Volume 500 PEEP 9 Sodium Potassium Chloride Carbon Dioxide Anion Gap BUN Creatinine Est GFR ( Amer) Est GFR (Non-Af Amer) POC Glucose (mg/dL) 271 H 222 H Random Glucose Calcium Phosphorus Magnesium Total Bilirubin AST ALT Alkaline Phosphatase Total Protein Albumin Globulin Albumin/Globulin Ratio Hep Bs Antigen Hep Bs Antibody Hep B Core IgM Ab Hepatitis C Antibody 06/08/16 06/08/16 05:23 06:30 WBC 16.1 H RBC 4.20 L Hgb 12.3 Hct 37.1 MCV 88.3 MCH 29.2 MCHC 33.1 RDW 16.8 H Plt Count 248 MPV 10.6 Neut % (Auto) 67.9 Lymph % (Auto) 12.3 L [place] % (Auto) 16.6 H Eos % (Auto) 3.0 Baso % (Auto) 0.2 Neut # 10.9 H Lymph # 2.0 [place] # 2.7 H Eos # 0.5 Baso # 0.0 Neutrophils % (Manual) Band Neutrophils % Lymphocytes % (Manual) Monocytes % (Manual) Eosinophils % (Manual) Platelet Estimate Polychromasia Anisocytosis (manual) Target Cells Tear Drop Cells Puncture Site pCO2 pO2 HCO3 ABG pH ABG Total CO2 ABG O2 Saturation ABG Base Excess ABG Hemoglobin ABG Carboxyhemoglobin POC ABG HHb (Measured) ABG Methemoglobin Philippe Test A-a O2 Difference Respiratory Index Hgb O2 Saturation Mechanical Rate FiO2 Tidal Volume PEEP Sodium 139 Potassium 4.7 Chloride 103 Carbon Dioxide 27 Anion Gap 14 BUN 63 H Creatinine 1.6 H Est GFR ( Amer) 57 Est GFR (Non-Af Amer) 47 POC Glucose (mg/dL) 288 H Random Glucose 266 H Calcium 7.4 L Phosphorus 4.4 Magnesium 2.1 Total Bilirubin 0.7 AST 58 ALT 58 Alkaline Phosphatase 335 H Total Protein 5.6 L Albumin 2.5 L Globulin 3.1 Albumin/Globulin Ratio 0.8 L Hep Bs Antigen Hep Bs Antibody Hep B Core IgM Ab Hepatitis C Antibody Fingerstick Blood Sugar Results: 288 Review of Systems - Review of Systems Review of Systems: noted in subjective Assessment/Plan - Assessment and Plan (Free Text) Assessment: Patient is a 45M with PMHx of COPD, asthma, DM, HN, DVT in RLE, NSTEMI in 2015, gallstones, liver cirrhosis, and CKD presents with c/o a RLE pain and swelling. Pt recently admitted to [facility] and found to have DVD in his RLE and discharged on Xarelto. Repeat venous doppler is consistent with extensive R femoral and iliac vein DVT. Code blue was called on 06/04/16 due to pt being unresponsive. Chest compression started. Patient was intubated on the medical floor and transferred to the ICU for close monitoring. Plan: Neuro: Intubated and sedated on Propofol CV: Hemodynamically stable Hx of HTN - off antihypertensives Hx of NSTEMI (01/2016) Hx of CHF 01/2016 ECHO: LVEF 60-65% 05/2016 ECHO: LVEF 55-60%, mild pulmonary HTN Off Crestor 2/2 to elevated BUN/Cr Off beta-asmita 2/2 to acute respiratory failure Aspirin 81mg PO daily Pulm: Intubated and sedated PEEP 9, FiO2 60% Acute respiratory failure with hypercarbia and hypoxia requiring intubation () Possible aspiration pneumonia - abx as below Unable to perform CT angio PE control 2/2 CKD Likely obesity hypoventilation and JOVANI Former smoker (quit 5 yrs ago) Hx of COPD Hx of Asthma 06/07/16 CXR: In situ ETT, tip of which lies approximately 5.75 cm above fish. Situ NGT is also felt be present however the distal aspect poorly seen.Cardiomegaly with persistent bilateral infiltrates and bilateral effusions likely due to pulmonary vascular congestion however bilateral pneumonia not excluded. 06/06/16 CXR: In situ ETT, tip of which lies approximately 4.26 cm above fish. Mild central pulmonary vascular congestive changes with bilateral lower lobe alveolar-type infiltrates and bilateral effusions. Duoneb 3mg/0.5 Mg Solumedrol 40mg IV Q12h Heme: LE DVT now on Eliquis 5mg Thrombosis of the R iliac and common femoral vein 05/25/16 (Venous US LE b/l): no evidency of hemodynamically significant insufficiency in the RLE. 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 Normal venous flow noted in the L common femoral vein. Patient was planned for thrombolysis for 06/06 - postponed per surgical team Heme-onc (Dr. 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 Per dietary goals of 20 cc/hr. Small amount of liquid brown stool today Hx of gallstones, liver cirrhosis Famotidine 20mg IVP daily Monitor : CKD Acute on chronic renal failure HD received on 06/07/16 Nephrotic syndrome BUN/Cr: 63/1.6 Hyperkalemia improving, patient getting Kayexalate Nephro (Dr. Rhoades) on board - help appreciated Campbell in, monitor strict I/O ID: Afebrile past 24 hrs Sepsis Bacteremia - resolved possible aspiration PNA 06/04/16 MRSA, blood, trachasp, urine cultures - all negative WBC 14.8, 17% bands Procalcitonin: 16.04 (06/05/16) Dr. Marsh on board - help appreciated Empiric coverage with aztreonam and cefepime. Per Dr. Marsh's note (06/06/16): continue with dual coverage 2/2 elevated BMI and renal insufficiency. Prophylaxis: SCDs contraindicated due to DVT Eliquis 5mg PO BID for DVT RLE Pepcid 20mg PO daily for GI ppx NS 125cc/hr Tube feedings PT/OT evaluation and treatment when clinically stable Code status - full code <Alex Cruz S - Last Filed: 06/08/16 15:44> CCU Objective - Vital Signs / Intake & Output Vital Signs (Last 4 hours): Vital Signs Temp Pulse Resp BP Pulse Ox 06/08/16 15:00 76 24 140/72 96 06/08/16 14:01 133/76 06/08/16 14:00 93 H 24 133/76 95 06/08/16 13:00 75 24 139/72 99 06/08/16 12:00 99.7 F H 73 24 131/73 96 Intake and Output (Last 8hrs): Intake & Output 06/08/16 06/08/16 06/08/16 06:59 14:59 22:59 Intake Total 1765.6 1105.6 88.2 Output Total 945 1040 350 Balance 820.6 65.6 -261.8 Weight 348 lb 5.286 oz Intake: Intake, IV Amount 1385.6 785.6 48.2 Right Antecubital 385.6 385.6 48.2 Left Femoral 1000 400 Oral 60 Tube Feeding 320 320 40 Output: Urine 945 1040 350 Urethral (Campbell) 945 1040 350 Other: # Bowel Movements 1 - Medications Active Medications: Active Medications Generic Name Dose Route Start Last Admin Trade Name Freq PRN Reason Stop Dose Admin Acetaminophen 650 mg 06/04/16 00:38 06/04/16 13:35 Tylenol 325mg Tab PO 650 mg Q6 PRN Administration Fever >100.4 F Acetylcysteine 4 ml 06/04/16 00:01 06/08/16 09:41 Acetylcysteine 20% PO 4 ml BID ANABELLA Administration Albuterol/Ipratropium 3 ml 06/05/16 20:00 06/08/16 13:33 Duoneb 3 Mg/0.5 Mg (3 Ml) Ud INH 3 ml RQ6 ANABELLA Administration Apixaban 5 mg 06/05/16 10:00 06/08/16 09:42 Eliquis PO 5 mg BID ANABELLA Administration Aspirin 81 mg 05/26/16 10:00 06/08/16 09:42 Aspirin Chewable PO 81 mg DAILY ANABELLA Administration Calcium Acetate 667 mg 06/06/16 12:00 06/08/16 12:20 Phoslo GT 667 mg TIDCC ANABELLA Administration Famotidine 20 mg 06/04/16 11:45 06/08/16 09:41 Pepcid IVP 20 mg DAILY ANABELLA Administration Furosemide 40 mg 06/08/16 13:15 06/08/16 14:01 Lasix IVP 40 mg Q12 ANABELLA Administration Aztreonam 1 gm/ Sodium 100 mls @ 100 mls/hr 06/04/16 10:00 06/08/16 09:42 Chloride IVPB 100 mls/hr Q12H ANABELLA Administration Propofol 100 mls @ 4.817 mls/hr 06/05/16 22:46 06/08/16 14:42 Diprivan IV 48.172 mls/hr .[id number] PRN Administration TITRATE PER MD ORDER Protocol 5 MCG/KG/MIN Cefepime HCl 1 gm/ Dextrose 50 mls @ 100 mls/hr 06/06/16 21:00 06/08/16 08:51 IVPB 100 mls/hr Q12H ANABELLA Administration Insulin Human Regular 0 unit 06/07/16 12:00 06/08/16 12:18 Novolin R SC 6 unit Q6 ANABELLA Administration Protocol Lorazepam 2 mg 06/06/16 14:53 06/07/16 18:13 Ativan IVP 2 mg Q6H PRN Administration Anxiety Methylprednisolone 20 mg 06/07/16 10:09 06/08/16 09:41 Solu-Medrol IV 20 mg Q12 ANABELLA Administration - Patient Studies Lab Studies: Microbiology Studies 06/04/16 16:47 Blood Culture - Preliminary Blood-Thru Central Line NO GROWTH AFTER 3 DAYS 06/04/16 16:47 Blood Culture - Preliminary Blood-Thru Central Line NO GROWTH AFTER 3 DAYS Lab Studies 06/08/16 06/08/16 06/08/16 Range/Units 12:02 06:30 05:23 WBC 16.1 H (4.8-10.8) K/uL RBC 4.20 L (4.40-5.90) Mil/uL Hgb 12.3 (12.0-18.0) g/dL Hct 37.1 (35.0-51.0) % MCV 88.3 (80.0-94.0) fL MCH 29.2 (27.0-31.0) pg MCHC 33.1 (33.0-37.0) g/dL RDW 16.8 H (11.5-14.5) % Plt Count 248 (130-400) K/uL MPV 10.6 (7.2-11.7) fL Neut % (Auto) 67.9 (50.0-75.0) % Lymph % (Auto) 12.3 L (20.0-40.0) % [place] % (Auto) 16.6 H (0.0-10.0) % Eos % (Auto) 3.0 (0.0-4.0) % Baso % (Auto) 0.2 (0.0-2.0) % Neut # 10.9 H (1.8-7.0) K/uL Lymph # 2.0 (1.0-4.3) K/uL [place] # 2.7 H (0.0-0.8) K/uL Eos # 0.5 (0.0-0.7) K/uL Baso # 0.0 (0.0-0.2) K/uL Puncture Site pCO2 (35-45) mm/Hg pO2 (80-100) mm/Hg HCO3 (21-28) mmol/L ABG pH (7.35-7.45) ABG Total CO2 (22-28) mmol/L ABG O2 Saturation (95-98) % ABG Base Excess (-2.0-3.0) mmol/L ABG Hemoglobin (11.7-17.4) g/dL ABG Carboxyhemoglobin (0.5-1.5) % POC ABG HHb (Measured) (0.0-5.0) % ABG Methemoglobin (0.0-3.0) % Philippe Test A-a O2 Difference mm/Hg Respiratory Index Hgb O2 Saturation (95.0-98.0) % Mechanical Rate FiO2 % Tidal Volume PEEP Sodium 139 (132-148) mmol/L Potassium 4.7 (3.6-5.2) mmol/L Chloride 103 (98-107) mmol/L Carbon Dioxide 27 (22-30) mmol/L Anion Gap 14 (10-20) BUN 63 H (9-20) mg/dL Creatinine 1.6 H (0.8-1.5) MG/DL Est GFR ( Amer) 57 Est GFR (Non-Af Amer) 47 POC Glucose (mg/dL) 257 H 288 H (65-110) mg/dL Random Glucose 266 H (75-110) mg/dL Calcium 7.4 L (8.6-10.4) mg/dl Phosphorus 4.4 (2.5-4.5) mg/dL Magnesium 2.1 (1.6-2.3) mg/dL Total Bilirubin 0.7 (0.2-1.3) mg/dL AST 58 (17-59) U/L ALT 58 (21-72) U/L Alkaline Phosphatase 335 H (38-126) U/L Total Protein 5.6 L (6.3-8.3) g/dL Albumin 2.5 L (3.5-5.0) g/dL Globulin 3.1 (2.2-3.9) gm/dL Albumin/Globulin Ratio 0.8 L (1.0-2.1) Hep Bs Antigen (NEGATIVE) Hep Bs Antibody (NEGATIVE) Hep B Core IgM Ab (NEGATIVE) Hepatitis C Antibody (NEGATIVE) 06/08/16 06/07/16 06/07/16 Range/Units 04:25 23:59 17:45 WBC (4.8-10.8) K/uL RBC (4.40-5.90) Mil/uL Hgb (12.0-18.0) g/dL Hct (35.0-51.0) % MCV (80.0-94.0) fL MCH (27.0-31.0) pg MCHC (33.0-37.0) g/dL RDW (11.5-14.5) % Plt Count (130-400) K/uL MPV (7.2-11.7) fL Neut % (Auto) (50.0-75.0) % Lymph % (Auto) (20.0-40.0) % [place] % (Auto) (0.0-10.0) % Eos % (Auto) (0.0-4.0) % Baso % (Auto) (0.0-2.0) % Neut # (1.8-7.0) K/uL Lymph # (1.0-4.3) K/uL [place] # (0.0-0.8) K/uL Eos # (0.0-0.7) K/uL Baso # (0.0-0.2) K/uL Puncture Site Rr pCO2 46 H (35-45) mm/Hg pO2 113 H (80-100) mm/Hg HCO3 24.5 (21-28) mmol/L ABG pH 7.35 (7.35-7.45) ABG Total CO2 26.8 (22-28) mmol/L ABG O2 Saturation 99.2 H (95-98) % ABG Base Excess -0.5 (-2.0-3.0) mmol/L ABG Hemoglobin 11.9 (11.7-17.4) g/dL ABG Carboxyhemoglobin 1.6 H (0.5-1.5) % POC ABG HHb (Measured) 0.8 (0.0-5.0) % ABG Methemoglobin 0.9 (0.0-3.0) % Philippe Test Pos A-a O2 Difference 257.0 mm/Hg Respiratory Index 2.3 Hgb O2 Saturation 96.6 (95.0-98.0) % Mechanical Rate 24 FiO2 60.0 % Tidal Volume 500 PEEP 9 Sodium (132-148) mmol/L Potassium (3.6-5.2) mmol/L Chloride (98-107) mmol/L Carbon Dioxide (22-30) mmol/L Anion Gap (10-20) BUN (9-20) mg/dL Creatinine (0.8-1.5) MG/DL Est GFR ( Amer) Est GFR (Non-Af Amer) POC Glucose (mg/dL) 222 H 271 H (65-110) mg/dL Random Glucose (75-110) mg/dL Calcium (8.6-10.4) mg/dl Phosphorus (2.5-4.5) mg/dL Magnesium (1.6-2.3) mg/dL Total Bilirubin (0.2-1.3) mg/dL AST (17-59) U/L ALT (21-72) U/L Alkaline Phosphatase (38-126) U/L Total Protein (6.3-8.3) g/dL Albumin (3.5-5.0) g/dL Globulin (2.2-3.9) gm/dL Albumin/Globulin Ratio (1.0-2.1) Hep Bs Antigen (NEGATIVE) Hep Bs Antibody (NEGATIVE) Hep B Core IgM Ab (NEGATIVE) Hepatitis C Antibody (NEGATIVE) 06/07/16 Range/Units 15:53 WBC (4.8-10.8) K/uL RBC (4.40-5.90) Mil/uL Hgb (12.0-18.0) g/dL Hct (35.0-51.0) % MCV (80.0-94.0) fL MCH (27.0-31.0) pg MCHC (33.0-37.0) g/dL RDW (11.5-14.5) % Plt Count (130-400) K/uL MPV (7.2-11.7) fL Neut % (Auto) (50.0-75.0) % Lymph % (Auto) (20.0-40.0) % [place] % (Auto) (0.0-10.0) % Eos % (Auto) (0.0-4.0) % Baso % (Auto) (0.0-2.0) % Neut # (1.8-7.0) K/uL Lymph # (1.0-4.3) K/uL [place] # (0.0-0.8) K/uL Eos # (0.0-0.7) K/uL Baso # (0.0-0.2) K/uL Puncture Site pCO2 (35-45) mm/Hg pO2 (80-100) mm/Hg HCO3 (21-28) mmol/L ABG pH (7.35-7.45) ABG Total CO2 (22-28) mmol/L ABG O2 Saturation (95-98) % ABG Base Excess (-2.0-3.0) mmol/L ABG Hemoglobin (11.7-17.4) g/dL ABG Carboxyhemoglobin (0.5-1.5) % POC ABG HHb (Measured) (0.0-5.0) % ABG Methemoglobin (0.0-3.0) % Philippe Test A-a O2 Difference mm/Hg Respiratory Index Hgb O2 Saturation (95.0-98.0) % Mechanical Rate FiO2 % Tidal Volume PEEP Sodium (132-148) mmol/L Potassium (3.6-5.2) mmol/L Chloride (98-107) mmol/L Carbon Dioxide (22-30) mmol/L Anion Gap (10-20) BUN (9-20) mg/dL Creatinine (0.8-1.5) MG/DL Est GFR ( Amer) Est GFR (Non-Af Amer) POC Glucose (mg/dL) (65-110) mg/dL Random Glucose (75-110) mg/dL Calcium (8.6-10.4) mg/dl Phosphorus (2.5-4.5) mg/dL Magnesium (1.6-2.3) mg/dL Total Bilirubin (0.2-1.3) mg/dL AST (17-59) U/L ALT (21-72) U/L Alkaline Phosphatase (38-126) U/L Total Protein (6.3-8.3) g/dL Albumin (3.5-5.0) g/dL Globulin (2.2-3.9) gm/dL Albumin/Globulin Ratio (1.0-2.1) Hep Bs Antigen Negative (NEGATIVE) Hep Bs Antibody Positive (NEGATIVE) Hep B Core IgM Ab Negative (NEGATIVE) Hepatitis C Antibody Negative (NEGATIVE) Laboratory Results - last 24 hr 06/07/16 06/07/16 06/07/16 15:53 17:45 23:59 WBC RBC Hgb Hct MCV MCH MCHC RDW Plt Count MPV Neut % (Auto) Lymph % (Auto) [place] % (Auto) Eos % (Auto) Baso % (Auto) Neut # Lymph # [place] # Eos # Baso # Puncture Site pCO2 pO2 HCO3 ABG pH ABG Total CO2 ABG O2 Saturation ABG Base Excess ABG Hemoglobin ABG Carboxyhemoglobin POC ABG HHb (Measured) ABG Methemoglobin Philippe Test A-a O2 Difference Respiratory Index Hgb O2 Saturation Mechanical Rate FiO2 Tidal Volume PEEP Sodium Potassium Chloride Carbon Dioxide Anion Gap BUN Creatinine Est GFR ( Amer) Est GFR (Non-Af Amer) POC Glucose (mg/dL) 271 H 222 H Random Glucose Calcium Phosphorus Magnesium Total Bilirubin AST ALT Alkaline Phosphatase Total Protein Albumin Globulin Albumin/Globulin Ratio Hep Bs Antigen Negative Hep Bs Antibody Positive Hep B Core IgM Ab Negative Hepatitis C Antibody Negative 06/08/16 06/08/16 06/08/16 04:25 05:23 06:30 WBC 16.1 H RBC 4.20 L Hgb 12.3 Hct 37.1 MCV 88.3 MCH 29.2 MCHC 33.1 RDW 16.8 H Plt Count 248 MPV 10.6 Neut % (Auto) 67.9 Lymph % (Auto) 12.3 L [place] % (Auto) 16.6 H Eos % (Auto) 3.0 Baso % (Auto) 0.2 Neut # 10.9 H Lymph # 2.0 [place] # 2.7 H Eos # 0.5 Baso # 0.0 Puncture Site Rr pCO2 46 H pO2 113 H HCO3 24.5 ABG pH 7.35 ABG Total CO2 26.8 ABG O2 Saturation 99.2 H ABG Base Excess -0.5 ABG Hemoglobin 11.9 ABG Carboxyhemoglobin 1.6 H POC ABG HHb (Measured) 0.8 ABG Methemoglobin 0.9 Philippe Test Pos A-a O2 Difference 257.0 Respiratory Index 2.3 Hgb O2 Saturation 96.6 Mechanical Rate 24 FiO2 60.0 Tidal Volume 500 PEEP 9 Sodium 139 Potassium 4.7 Chloride 103 Carbon Dioxide 27 Anion Gap 14 BUN 63 H Creatinine 1.6 H Est GFR ( Amer) 57 Est GFR (Non-Af Amer) 47 POC Glucose (mg/dL) 288 H Random Glucose 266 H Calcium 7.4 L Phosphorus 4.4 Magnesium 2.1 Total Bilirubin 0.7 AST 58 ALT 58 Alkaline Phosphatase 335 H Total Protein 5.6 L Albumin 2.5 L Globulin 3.1 Albumin/Globulin Ratio 0.8 L Hep Bs Antigen Hep Bs Antibody Hep B Core IgM Ab Hepatitis C Antibody 06/08/16 12:02 WBC RBC Hgb Hct MCV MCH MCHC RDW Plt Count MPV Neut % (Auto) Lymph % (Auto) [place] % (Auto) Eos % (Auto) Baso % (Auto) Neut # Lymph # [place] # Eos # Baso # Puncture Site pCO2 pO2 HCO3 ABG pH ABG Total CO2 ABG O2 Saturation ABG Base Excess ABG Hemoglobin ABG Carboxyhemoglobin POC ABG HHb (Measured) ABG Methemoglobin Philippe Test A-a O2 Difference Respiratory Index Hgb O2 Saturation Mechanical Rate FiO2 Tidal Volume PEEP Sodium Potassium Chloride Carbon Dioxide Anion Gap BUN Creatinine Est GFR ( Amer) Est GFR (Non-Af Amer) POC Glucose (mg/dL) 257 H Random Glucose Calcium Phosphorus Magnesium Total Bilirubin AST ALT Alkaline Phosphatase Total Protein Albumin Globulin Albumin/Globulin Ratio Hep Bs Antigen Hep Bs Antibody Hep B Core IgM Ab Hepatitis C Antibody Assessment/Plan (1) Respiratory arrest Current Visit: Yes Status: Acute (2) Chronic kidney disease, stage 3 (moderate) Current Visit: Yes Status: Acute (3) Deep venous thrombosis of lower extremity Current Visit: No Status: Acute (4) Hyperkalemia Current Visit: Yes Status: Acute Attending/Attestation - Attestation I have personally seen and examined this patient.: Yes I have fully participated in the care of the patient.: Yes I have reviewed all pertinent clinical information: Yes Notes (Text): 06/08/16 15:42 Patient seen and examined in the intensive care unit. Case discussed with staff in the morning rounds. Remains intubated on ventilatory support with better oxygenation wean As tolerated Continue antibiotics good urine output Status post hemodialysis yesterday Increase feeding as tolerated
[2016-06-08] MEDS: Acetylcysteine 20% Inhal Soln (4ml) PO SCH ×2 (09:41→17:26)
[2016-06-08] MEDS: MethylPREDNISolone 40 mg Vial IV SCH ×2 (09:41→22:03)
[2016-06-08] MEDS: Aztreonam 1 GM in Sodium Chloride 0.9% 100 ML IVPB SCH ×2 (09:42→22:05)
--- NOTE | 2016-06-08 13:06 | CP.PCM.PN ---
Subjective - Date & Time of Evaluation Date of Evaluation: 06/08/16 Time of Evaluation: 13:03 - Subjective Subjective: Remains on vent, sedated s/p dialysis 06/07 with UF around 2500ml BP stable at present Cannot obtain ROS Objective - Vital Signs/Intake and Output Vital Signs (last 24 hours): Temp Pulse Resp BP Pulse Ox 99.7 F H 73 24 131/73 96 06/08/16 12:00 06/08/16 12:00 06/08/16 12:00 06/08/16 12:00 06/08/16 12:00 Intake and Output: 06/08/16 06/08/16 06:59 18:59 Intake Total 2678.4 929.2 Output Total 1295 855 Balance 1383.4 74.2 - Medications Medications: Current Medications Acetaminophen (Tylenol 325mg Tab) 650 mg PO Q6 PRN PRN Reason: Fever >100.4 F Last Admin: 06/04/16 13:35 Dose: 650 mg Acetylcysteine (Acetylcysteine 20%) 4 ml PO BID [facility] Last Admin: 06/08/16 09:41 Dose: 4 ml Albuterol/Ipratropium (Duoneb 3 Mg/0.5 Mg (3 Ml) Ud) 3 ml INH RQ6 [facility] Last Admin: 06/08/16 07:14 Dose: 3 ml Apixaban (Eliquis) 5 mg PO BID [facility] Last Admin: 06/08/16 09:42 Dose: 5 mg Aspirin (Aspirin Chewable) 81 mg PO DAILY [facility] Last Admin: 06/08/16 09:42 Dose: 81 mg Calcium Acetate (Phoslo) 667 mg GT TIDCC [facility] Last Admin: 06/08/16 12:20 Dose: 667 mg Famotidine (Pepcid) 20 mg IVP DAILY [facility] Last Admin: 06/08/16 09:41 Dose: 20 mg Aztreonam 1 gm/ Sodium (Chloride) 100 mls @ 100 mls/hr IVPB Q12H [facility] Last Admin: 06/08/16 09:42 Dose: 100 mls/hr Propofol (Diprivan) 100 mls @ 4.817 mls/hr IV .[id number] PRN; Protocol; 5 MCG/KG/ MIN PRN Reason: TITRATE PER MD ORDER Last Admin: 06/08/16 12:41 Dose: 48.172 mls/hr Cefepime HCl 1 gm/ Dextrose 50 mls @ 100 mls/hr IVPB Q12H [facility] Last Admin: 06/08/16 08:51 Dose: 100 mls/hr Insulin Human Regular (Novolin R) 0 unit SC Q6 [facility] PRN Reason: Protocol Last Admin: 06/08/16 12:18 Dose: 6 unit Lorazepam (Ativan) 2 mg IVP Q6H PRN PRN Reason: Anxiety Last Admin: 06/07/16 18:13 Dose: 2 mg Methylprednisolone (Solu-Medrol) 20 mg IV Q12 [facility] Last Admin: 06/08/16 09:41 Dose: 20 mg - Labs Labs: 06/08/16 06:30 06/08/16 06:30 PT 13.9 SECONDS (9.7-12.2) H 05/27/16 09:38 INR 1.2 05/27/16 09:38 APTT 65 SECONDS (21-34) H 05/29/16 10:50 - Constitutional Appears: Chronically Ill - Head Exam Head Exam: ATRAUMATIC, NORMAL INSPECTION - Eye Exam Eye Exam: EOMI, Normal appearance - Neck Exam Neck Exam: Normal Inspection, Tenderness - Respiratory Exam Respiratory Exam: Rales, Respiratory Distress - Cardiovascular Exam Cardiovascular Exam: REGULAR RHYTHM, +S1 - GI/Abdominal Exam GI & Abdominal Exam: Soft. absent: Tenderness - Extremities Exam Extremities Exam: Pedal Edema, Tenderness - Neurological Exam Neurological Exam: Altered, CN II-XII Intact - Skin Skin Exam: Dry, Warm Assessment and Plan (1) Cellulitis Status: Acute (2) Chronic kidney disease, stage 3 (moderate) Status: Acute (3) Deep venous thrombosis of lower extremity Status: Acute (4) Proteinuria due to type 2 diabetes mellitus Status: Acute (5) Type 2 diabetes mellitus with diabetic nephropathy Status: Acute (6) Nephrotic syndrome Status: Acute (7) HENRIQUE (acute kidney injury) Status: Acute - Assessment and Plan (Free Text) Plan: Will try IV lasix follow up chemistries
--- NOTE | 2016-06-08 13:58 | RAD ---
HISTORY: vent COMPARISON: Chest x-ray performed 06/07/26 TECHNIQUE: Chest, one view. FINDINGS: Distal tip of the endotracheal tube terminates approximately 3.2 cm above the level the fish. Nasogastric tube extends beyond hemidiaphragm, distal tip not visualized. LUNGS: Moderate interstitial prominence compatible with edema or infection. Probable small bilateral pleural effusions. No definite pneumothorax. Please note that chest x-ray has limited sensitivity for the detection of pulmonary masses. CARDIOVASCULAR: Enlargement of the cardiomediastinal silhouette. OSSEOUS STRUCTURES: No acute osseous abnormality identified. VISUALIZED UPPER ABDOMEN: Unremarkable. OTHER FINDINGS: None. IMPRESSION: Distal tip of the endotracheal tube terminates approximately 3.2 cm above the level the fish. Nasogastric tube extends beyond hemidiaphragm, distal tip not visualized. Moderate interstitial prominence compatible with edema or infection. Probable small bilateral pleural effusions. No definite pneumothorax.
--- NOTE | 2016-06-08 14:44 | CP.PCM.PN ---
Subjective - Date & Time of Evaluation Date of Evaluation: 06/08/16 Time of Evaluation: 12:00 - Subjective Subjective: Patient remains on mechanical ventilation, PRVC at this time. He was able to open his eyes with name call. He is S/P hemodiaysis yesterday. Family is present at this time. Objective - Vital Signs/Intake and Output Vital Signs (last 24 hours): Temp Pulse Resp BP Pulse Ox 99.7 F H 93 H 24 133/76 95 06/08/16 12:00 06/08/16 14:00 06/08/16 14:00 06/08/16 14:01 06/08/16 14:00 Intake and Output: 06/08/16 06/08/16 06:59 18:59 Intake Total 2678.4 1105.6 Output Total 1295 1040 Balance 1383.4 65.6 - Medications Medications: Current Medications Acetaminophen (Tylenol 325mg Tab) 650 mg PO Q6 PRN PRN Reason: Fever >100.4 F Last Admin: 06/04/16 13:35 Dose: 650 mg Acetylcysteine (Acetylcysteine 20%) 4 ml PO BID [facility] Last Admin: 06/08/16 09:41 Dose: 4 ml Albuterol/Ipratropium (Duoneb 3 Mg/0.5 Mg (3 Ml) Ud) 3 ml INH RQ6 [facility] Last Admin: 06/08/16 13:33 Dose: 3 ml Apixaban (Eliquis) 5 mg PO BID [facility] Last Admin: 06/08/16 09:42 Dose: 5 mg Aspirin (Aspirin Chewable) 81 mg PO DAILY [facility] Last Admin: 06/08/16 09:42 Dose: 81 mg Calcium Acetate (Phoslo) 667 mg GT TIDCC [facility] Last Admin: 06/08/16 12:20 Dose: 667 mg Famotidine (Pepcid) 20 mg IVP DAILY [facility] Last Admin: 06/08/16 09:41 Dose: 20 mg Furosemide (Lasix) 40 mg IVP Q12 [facility] Last Admin: 06/08/16 14:01 Dose: 40 mg Aztreonam 1 gm/ Sodium (Chloride) 100 mls @ 100 mls/hr IVPB Q12H [facility] Last Admin: 06/08/16 09:42 Dose: 100 mls/hr Propofol (Diprivan) 100 mls @ 4.817 mls/hr IV .[id number] PRN; Protocol; 5 MCG/KG/ MIN PRN Reason: TITRATE PER MD ORDER Last Admin: 06/08/16 12:41 Dose: 48.172 mls/hr Cefepime HCl 1 gm/ Dextrose 50 mls @ 100 mls/hr IVPB Q12H [facility] Last Admin: 06/08/16 08:51 Dose: 100 mls/hr Insulin Human Regular (Novolin R) 0 unit SC Q6 [facility] PRN Reason: Protocol Last Admin: 06/08/16 12:18 Dose: 6 unit Lorazepam (Ativan) 2 mg IVP Q6H PRN PRN Reason: Anxiety Last Admin: 06/07/16 18:13 Dose: 2 mg Methylprednisolone (Solu-Medrol) 20 mg IV Q12 [facility] Last Admin: 06/08/16 09:41 Dose: 20 mg - Labs Labs: 06/08/16 06:30 06/08/16 06:30 PT 13.9 SECONDS (9.7-12.2) H 05/27/16 09:38 INR 1.2 05/27/16 09:38 APTT 65 SECONDS (21-34) H 05/29/16 10:50 Assessment and Plan - Assessment and Plan (Free Text) Assessment: 1) Acute respiratory failure 06/08: Remanins intubated, had HD yesterday. Hopefully can be weaned of ventilator soon 06/07: Patient will be getting HD at some point later today to see if this helps with extubation 06/06: I updated family members with reguards to recent events. He may or may not have a PE or this could be aspiration pneumonia for example. He is on IV abx and also he continues to recieve anticoagulation. * Intubated on 06/04/16 for "Code Blue" called on 06/04/16, patient did not lose pulse * Possible aspiration pneumonia vs less pulmonary embolus despite being on anticoagulation for extensive DVT right lower extremity * Unable to perform CT angio PE control secondary to chronic kidney disease 2) Thrombosis of the R iliac and common femoral vein 06/06: As mentioned before the patient was intended to have thrombolysis of the lower extremity with the chronic DVT however this was not able to be done immediately due to renal function. As of now on anticogulation. 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 normal venous flow noted in the left common femoral vein * Prior to respiratory arrest on 06/04/16, patient was planned for thrombolysis for this upcoming Tuesday 06/06 * Heme-oncology (Dr. 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 Ortega) on board 3) Sepsis 06/08: WBC are 16 today, remains on IV abx 06/06: The most recent blood cultures have been negative for 48 hrs, remains on IV abx. WBC 14 today. No elevated temperatures today * Criteria admission: WBC: 43.8, HR>90, Cr> 2.0, platelets 103 and blood culture: Serattia from 05/25/16 * Now: Criteria: WBC: 25.5, Tmax: 102.1 bands>10, platelets normalized, Cr 2.0, chest xray for possible aspiration pneumonia pending new cultures * Urine culture: no growth * 05/27/16 Blood Venous: No growth After 5 days X2 * Infectious disease (Dr. Marsh) on board * Procalcitonin: 16.1 (05/26/16)--> 31.81 (05/27/16)-->ordered for new one * Aztreonam 1gram IV Q 12hours (active since 05/26/16) and Maxipime 1gram IV Q 12hours (active since 05/29/16) * Abd CT(05/28/16): bilateral inguinal lymphadenopathy, right greater than left. cirrhotic contour of liver. fatty atrophy of the pancreas, splenic atrophy w residula spleen, recitulation and edema seen in subcutanous soft tissues, cholelithiasis, consolidative changes at both lung bases which may represen underying infiltrate. * Ab US (05/28/16): enlarged liver with diffuse fatty infiltration, cholelithiasis, limited visualization of the pancreas * Echocardiogram (05/30/16): EF: 55-60% left ventricular ejection fraction is within normal range. left ventricular diastolic function is normal. trace to mild tricupsid regurgitation, PAP 35-45 mmgHG, mild pulmonary hypertension 4) Acute renal failure on Chronic Kidney disease with Nephrotic Syndrome 06/08: S/P Hemodialysis 06/07: HD to be started some point * Nephrology (Dr. Rhoades) on board-->help appreciated * NS 125 cc/hr (started 06/04/16) * Has dialysis catheter port placed on 06/04/16 by ICU * Monitor potassium levels 5) History of COPD/asthma * Former smoker, quit 5 years ago * currently intubated secondary to respiratory arrest secondary to likely pnuemonia * Chest xray (06/04/16): in site ett and apparent in situ NGT as aboove in distal aspect of the NGT is poorly delinated, cardiomegaly, pulmonary vascular congestive changes with bilateral lower love alveolar-type infiltrates and bilateral effusions 6) History of Congestive Heart failure * 01/2016 ECHO- LV EF 60-65%, mild pulmonary HTN (see full report) * Echocardiogram (05/30/16): EF: 55-60% left ventricular ejection fraction is within normal range. left ventricular diastolic function is normal. trace to mild tricupsid regurgitation, PAP 35-45 mmgHG, mild pulmonary hypertension * off Crestor secondary to elevated BUN/Cr * off beta asmita secondary to acute respiratory failure; hx of copd se worsening bronchospasm * Aspirin 81mg PO daily 7)Diabetes Mellitus * Accuchecks Q6 hours * Novolin sliding scale subq 6hours * Diabetic source 20cc/hr via OGT * ordered for [id number] * Prior a1c shows uncontrolled 8) History of Hypertension * Off antihypertensives 9) Hx of Nonstemi * January 2016 hospitalization * No cardiac cath * Hx of CHF 10) Prophylactic measures - SCDs contraindicated due to DVT - Eliquis 5mg PO BID for DVT Right LE - Pepcid 20mg PO daily for GI ppx - NS 125 cc/hr - Tube feedings - PT/OT
--- NOTE | 2016-06-08 22:05 | CP.PCM.PN ---
Subjective - Date & Time of Evaluation Date of Evaluation: 06/08/16 Time of Evaluation: 03:00 - Subjective Subjective: dictated Objective - Vital Signs/Intake and Output Vital Signs (last 24 hours): Temp Pulse Resp BP Pulse Ox 98.2 F 72 24 147/78 97 06/08/16 16:00 06/08/16 19:00 06/08/16 19:00 06/08/16 19:00 06/08/16 19:00 Intake and Output: 06/08/16 06/09/16 18:59 06:59 Intake Total 1358.4 68.2 Output Total 1999 Balance -641.6 68.2 - Medications Medications: Current Medications Acetaminophen (Tylenol 325mg Tab) 650 mg PO Q6 PRN PRN Reason: Fever >100.4 F Last Admin: 06/04/16 13:35 Dose: 650 mg Acetylcysteine (Acetylcysteine 20%) 4 ml PO BID [facility] Last Admin: 06/08/16 17:26 Dose: 4 ml Albuterol/Ipratropium (Duoneb 3 Mg/0.5 Mg (3 Ml) Ud) 3 ml INH RQ6 [facility] Last Admin: 06/08/16 19:40 Dose: 3 ml Apixaban (Eliquis) 5 mg PO BID [facility] Last Admin: 06/08/16 17:26 Dose: 5 mg Aspirin (Aspirin Chewable) 81 mg PO DAILY [facility] Last Admin: 06/08/16 09:42 Dose: 81 mg Calcium Acetate (Phoslo) 667 mg GT TIDCC [facility] Last Admin: 06/08/16 17:26 Dose: 667 mg Famotidine (Pepcid) 20 mg IVP DAILY [facility] Last Admin: 06/08/16 09:41 Dose: 20 mg Furosemide (Lasix) 40 mg IVP Q12 [facility] Last Admin: 06/08/16 14:01 Dose: 40 mg Aztreonam 1 gm/ Sodium (Chloride) 100 mls @ 100 mls/hr IVPB Q12H [facility] Last Admin: 06/08/16 09:42 Dose: 100 mls/hr Propofol (Diprivan) 100 mls @ 4.817 mls/hr IV .[id number] PRN; Protocol; 5 MCG/KG/ MIN PRN Reason: TITRATE PER MD ORDER Last Admin: 06/08/16 20:38 Dose: 48.172 mls/hr Cefepime HCl 1 gm/ Dextrose 50 mls @ 100 mls/hr IVPB Q12H [facility] Last Admin: 06/08/16 20:38 Dose: 100 mls/hr Insulin Human Regular (Novolin R) 0 unit SC Q6 [facility] PRN Reason: Protocol Last Admin: 06/08/16 18:15 Dose: 4 unit Lorazepam (Ativan) 2 mg IVP Q6H PRN PRN Reason: Anxiety Last Admin: 06/07/16 18:13 Dose: 2 mg Methylprednisolone (Solu-Medrol) 20 mg IV Q12 [facility] Last Admin: 06/08/16 09:41 Dose: 20 mg - Labs Labs: 06/08/16 06:30 06/08/16 06:30 PT 13.9 SECONDS (9.7-12.2) H 05/27/16 09:38 INR 1.2 05/27/16 09:38 APTT 65 SECONDS (21-34) H 05/29/16 10:50
[2016-06-09] MEDS: (Novolin R) Insulin Human Regular 100 units/ml vial SC SCH ×4 (00:34→18:26)
[2016-06-09] MEDS: Albuterol-Ipratrop 3 mg / 0.5 (3 ml) UD INH SCH ×4 (01:00→19:40)
--- NOTE | 2016-06-09 02:24 | PN ---
DATE: 06/08/2016 INFECTIOUS DISEASE FOLLOWUP SUBJECTIVE: The patient remains intubated. He is intubated in the ICU, sedated. PHYSICAL EXAMINATION: VITAL SIGNS: T-max is 99.7, 99.3. Heart rate is 93, blood pressure 133/76, respirations are 24 on t he vent. HEENT: Head is atraumatic. NECK: Supple. LUNGS: Clear. No crackles or rales present. HEART: S1, S2 regular. ABDOMEN: Soft, nontender, flabby. EXTREMITIES: Right leg remains still with the swelling and edema with mild redness. LABORATORY DATA: White count is 16.1 today, it has increased from 14.8; hemoglobin 12.3; hematocrit 37.1; and platelet count is 248. I have renewed the patient's Azactam. Also his creatinine is 1.6, BUN is 63; his creatinine is slightly better. Glucose is 222. Alkaline phosphatase is 335. Total p rotein is 5.6, albumin 2.5. The patient microcultures, urine cultures, blood cultures, sputum cultur es are all negative. He does have acute respiratory failure. He is morbidly obese, has pulmonary em bolism probably, with the right leg and thigh extensive DVT with coagulopathy. He has some factor de ficiency. ASSESSMENT AND PLAN: Suggest at this time to continue on Azactam and cefepime, and if white count co ntinues to increase, we will repeat the septic workup again. However, I think the right leg cellulit is and DVT and Serratia marcescens and septicemia he had 05/25, now it is 06/08, so he already got al most 14 days of treatment. We will reevaluate again to determine. Joshua Marsh MD cc: [id number] TT: 06/08/2016 22:55:25 Confirmation # [id number] Dictation # [id number] mn 06/09/2016 01:23:38
[2016-06-09 04:48] LABS: ABG ALLEN TEST POS; ABG MECHANICAL RATE 24; ARTERIAL BLOOD HGB O2 SAT 94.2 % (95.0-98.0); ATERIAL BLOOD GAS PEEP 6; CARBOXYHEMOGLOBIN 2.7 % (0.5-1.5); DRAW SITE RR; HHB 1.7 % (0.0-5.0); METHEMOGLOBIN 1.3 % (0.0-3.0)
[2016-06-09 06:33] LABS: BASO # 0.1 K/uL (0.0-0.2); BASO % 0.4 % (0.0-2.0); EOS # 0.8 K/uL (0.0-0.7); EOS % 5.3 % (0.0-4.0); HEMATOCRIT 38.3 % (35.0-51.0); LYMPH % 13.4 % (20.0-40.0); MEAN CELL VOLUME 88.3 fL (80.0-94.0); MEAN CORPUSCULAR HEMOGLOBIN 28.7 pg (27.0-31.0); MEAN CORPUSCULAR HGB CONC 32.5 g/dL (33.0-37.0); MEAN PLATELET VOLUME 11.1 fL (7.2-11.7); MONO % 13.5 % (0.0-10.0); NRBC % 0.6 % (0.0-2.0); RED CELL DISTRIBUTION WIDTH 16.6 % (11.5-14.5); WHITE BLOOD COUNT 14.7 K/uL (4.8-10.8)
[2016-06-09 06:43] LABS: CHLORIDE 108 mmol/L (98-107); POTASSIUM 4.8 mmol/L (3.6-5.2); SODIUM 141 mmol/L (132-148)
[2016-06-09 06:45] LABS: ALB/GLOB RATIO 0.7 (1.0-2.1); ALKALINE PHOSPHATASE 282 U/L (38-126); ALT/SGPT 59 U/L (21-72); AST/SGOT 36 U/L (17-59); BILIRUBIN,TOTAL 0.7 mg/dL (0.2-1.3); BLOOD UREA NITROGEN 61 mg/dL (9-20); CARBON DIOXIDE 26 mmol/L (22-30); GFR AFRICAN-AMERICAN > 60; TOTAL PROTEIN 5.9 g/dL (6.3-8.3)
[2016-06-09 06:46] LABS: GLUCOSE,RANDOM 254 mg/dL (75-110); MAGNESIUM 1.9 mg/dL (1.6-2.3); PHOSPHOROUS 4.2 mg/dL (2.5-4.5)
--- NOTE | 2016-06-09 08:52 | CP.CCUPN ---
<Ryan Arreguin - Last Filed: 06/09/16 17:31> CCU Subjective - Physician Review Subjective (Free Text): 06/06/16 15:56 Pt seen and examined. He is intubated and sedated at this time. Patient family friend present bedside. No acute events overnight per nursing. An ROS could nto be obtained at this time due to patient's clinical status. 06/07/16 14:14 Pt seen and examined. He is intubated and sedated at this time. Patient family friend present bedside. No acute events overnight per nursing. Dr. Vargas ( Medicine hospitalist) had extensive discussion with patient's family yesterday regarding patient's status. An ROS could not be obtained at this time due to patient's clinical status. 06/09/16 09:27 Patient was seen and examined at bedside. Pt self extubated this morning shortly before rounds as noted by nursing team. Patient was a difficult inubation in light of patient's body habitus. Patient on propofol drip however still actively moving limbs. 2 mg Versed, 20 mg Etomidate, 100 mg Succinylcholine given IV in attempt to sedate patient. Movements likely continued due to morbid obesity. No acute events overnight per nursing. ROS could not be obtained at this time due to patient's clinical status. Pt received HD yesterday with 2.5L removed. He tolerated well. CCU Objective - Vital Signs / Intake & Output Vital Signs (Last 4 hours): Vital Signs Pulse Resp BP Pulse Ox 06/09/16 07:00 82 24 138/78 96 06/09/16 06:01 81 24 146/79 99 06/09/16 06:00 81 24 99 06/09/16 05:58 82 24 146/79 98 06/09/16 05:03 92 H 17 143/68 96 06/09/16 05:00 93 H 15 96 06/09/16 04:58 87 13 164/101 H 95 Intake and Output (Last 8hrs): Intake & Output 06/08/16 06/09/16 06/09/16 22:59 06:59 14:59 Intake Total 695.6 545.6 68.2 Output Total 1735 2555 100 Balance -1039.4 -2009.4 -31.8 Weight 341 lb 4.409 oz Intake: Intake, IV Amount 535.6 385.6 48.2 Right Antecubital 385.6 385.6 48.2 left antecubital 150 Tube Feeding 160 160 20 Output: Urine 1735 2555 100 Urethral ([place]bell) 1735 2555 100 Other: # Bowel Movements 1 - Physical Exam Head: Positive for: Atraumatic, Normocephalic Pupils: Positive for: PERRL Conjunctiva: Positive for: Normal Mouth: Positive for: Moist Mucous Membranes Respiratory/Chest: Positive for: Clear to Auscultation Cardiovascular: Positive for: Regular Rate and Rhythm Abdomen: Positive for: Normal Bowel Sounds. Negative for: Tenderness, Distention Upper Extremity: Positive for: Edema Lower Extremity: Positive for: Edema, Swelling, Erythema Skin: Positive for: Warm, Dry - Medications Active Medications: Active Medications Generic Name Dose Route Start Last Admin Trade Name Freq PRN Reason Stop Dose Admin Acetaminophen 650 mg 06/04/16 00:38 06/04/16 13:35 Tylenol 325mg Tab PO 650 mg Q6 PRN Administration Fever >100.4 F Acetylcysteine 4 ml 06/04/16 00:01 06/08/16 17:26 Acetylcysteine 20% PO 4 ml BID ANABELLA Administration Albuterol/Ipratropium 3 ml 06/05/16 20:00 06/09/16 07:42 Duoneb 3 Mg/0.5 Mg (3 Ml) Ud INH 3 ml RQ6 ANABELLA Administration Apixaban 5 mg 06/05/16 10:00 06/08/16 17:26 Eliquis PO 5 mg BID ANABELLA Administration Aspirin 81 mg 05/26/16 10:00 06/08/16 09:42 Aspirin Chewable PO 81 mg DAILY ANABELLA Administration Calcium Acetate 667 mg 06/06/16 12:00 06/08/16 17:26 Phoslo GT 667 mg TIDCC ANABELLA Administration Famotidine 20 mg 06/04/16 11:45 06/08/16 09:41 Pepcid IVP 20 mg DAILY ANABELLA Administration Furosemide 40 mg 06/08/16 13:15 06/08/16 22:04 Lasix IVP 40 mg Q12 ANABELLA Administration Aztreonam 1 gm/ Sodium 100 mls @ 100 mls/hr 06/04/16 10:00 06/08/16 22:05 Chloride IVPB 100 mls/hr Q12H ANABELLA Administration Propofol 100 mls @ 4.817 mls/hr 06/05/16 22:46 06/09/16 06:24 Diprivan IV 48.172 mls/hr .[id number] PRN Administration TITRATE PER MD ORDER Protocol 5 MCG/KG/MIN Cefepime HCl 1 gm/ Dextrose 50 mls @ 100 mls/hr 06/06/16 21:00 06/08/16 20:38 IVPB 100 mls/hr Q12H ANABELLA Administration Insulin Human Regular 0 unit 06/07/16 12:00 06/09/16 06:26 Novolin R SC 4 unit Q6 ANABELLA Administration Protocol Lorazepam 2 mg 06/06/16 14:53 06/08/16 22:08 Ativan IVP 2 mg Q6H PRN Administration Anxiety Methylprednisolone 20 mg 06/07/16 10:09 06/08/16 22:03 Solu-Medrol IV 20 mg Q12 ANABELLA Administration - Patient Studies Lab Studies: Microbiology Studies 06/04/16 16:47 Blood Culture - Preliminary Blood-Thru Central Line NO GROWTH AFTER 4 DAYS 06/04/16 16:47 Blood Culture - Preliminary Blood-Thru Central Line NO GROWTH AFTER 4 DAYS Lab Studies 06/09/16 06/09/16 06/09/16 Range/Units 06:25 05:25 04:30 WBC 14.7 H (4.8-10.8) K/uL RBC 4.34 L (4.40-5.90) Mil/uL Hgb 12.5 (12.0-18.0) g/dL Hct 38.3 (35.0-51.0) % MCV 88.3 (80.0-94.0) fL MCH 28.7 (27.0-31.0) pg MCHC 32.5 L (33.0-37.0) g/dL RDW 16.6 H (11.5-14.5) % Plt Count 259 (130-400) K/uL MPV 11.1 (7.2-11.7) fL Neut % (Auto) 67.4 (50.0-75.0) % Lymph % (Auto) 13.4 L (20.0-40.0) % [place] % (Auto) 13.5 H (0.0-10.0) % Eos % (Auto) 5.3 H (0.0-4.0) % Baso % (Auto) 0.4 (0.0-2.0) % Neut # 9.9 H (1.8-7.0) K/uL Lymph # 2.0 (1.0-4.3) K/uL [place] # 2.0 H (0.0-0.8) K/uL Eos # 0.8 H (0.0-0.7) K/uL Baso # 0.1 (0.0-0.2) K/uL Puncture Site Rr pCO2 50 H (35-45) mm/Hg pO2 79 L (80-100) mm/Hg HCO3 25.5 (21-28) mmol/L ABG pH 7.35 (7.35-7.45) ABG Total CO2 29.1 H (22-28) mmol/L ABG O2 Saturation 98.2 H (95-98) % ABG Base Excess 0.9 (-2.0-3.0) mmol/L ABG Hemoglobin 16.8 (11.7-17.4) g/dL ABG Carboxyhemoglobin 2.7 H (0.5-1.5) % POC ABG HHb (Measured) 1.7 (0.0-5.0) % ABG Methemoglobin 1.3 (0.0-3.0) % Philippe Test Pos A-a O2 Difference 286.0 mm/Hg Respiratory Index 3.6 Hgb O2 Saturation 94.2 L (95.0-98.0) % Mechanical Rate 24 FiO2 60.0 % Tidal Volume 500 PEEP 6 Sodium 141 (132-148) mmol/L Potassium 4.8 (3.6-5.2) mmol/L Chloride 108 H (98-107) mmol/L Carbon Dioxide 26 (22-30) mmol/L Anion Gap 12 (10-20) BUN 61 H (9-20) mg/dL Creatinine 1.3 (0.8-1.5) MG/DL Est GFR ( Amer) > 60 Est GFR (Non-Af Amer) 59 POC Glucose (mg/dL) 228 H (65-110) mg/dL Random Glucose 254 H (75-110) mg/dL Calcium 8.0 L (8.6-10.4) mg/dl Phosphorus 4.2 (2.5-4.5) mg/dL Magnesium 1.9 (1.6-2.3) mg/dL Total Bilirubin 0.7 (0.2-1.3) mg/dL AST 36 (17-59) U/L ALT 59 (21-72) U/L Alkaline Phosphatase 282 H (38-126) U/L Total Protein 5.9 L (6.3-8.3) g/dL Albumin 2.4 L (3.5-5.0) g/dL Globulin 3.5 (2.2-3.9) gm/dL Albumin/Globulin Ratio 0.7 L (1.0-2.1) 06/08/16 06/08/16 06/08/16 Range/Units 23:57 18:04 12:02 WBC (4.8-10.8) K/uL RBC (4.40-5.90) Mil/uL Hgb (12.0-18.0) g/dL Hct (35.0-51.0) % MCV (80.0-94.0) fL MCH (27.0-31.0) pg MCHC (33.0-37.0) g/dL RDW (11.5-14.5) % Plt Count (130-400) K/uL MPV (7.2-11.7) fL Neut % (Auto) (50.0-75.0) % Lymph % (Auto) (20.0-40.0) % [place] % (Auto) (0.0-10.0) % Eos % (Auto) (0.0-4.0) % Baso % (Auto) (0.0-2.0) % Neut # (1.8-7.0) K/uL Lymph # (1.0-4.3) K/uL [place] # (0.0-0.8) K/uL Eos # (0.0-0.7) K/uL Baso # (0.0-0.2) K/uL Puncture Site pCO2 (35-45) mm/Hg pO2 (80-100) mm/Hg HCO3 (21-28) mmol/L ABG pH (7.35-7.45) ABG Total CO2 (22-28) mmol/L ABG O2 Saturation (95-98) % ABG Base Excess (-2.0-3.0) mmol/L ABG Hemoglobin (11.7-17.4) g/dL ABG Carboxyhemoglobin (0.5-1.5) % POC ABG HHb (Measured) (0.0-5.0) % ABG Methemoglobin (0.0-3.0) % Philippe Test A-a O2 Difference mm/Hg Respiratory Index Hgb O2 Saturation (95.0-98.0) % Mechanical Rate FiO2 % Tidal Volume PEEP Sodium (132-148) mmol/L Potassium (3.6-5.2) mmol/L Chloride (98-107) mmol/L Carbon Dioxide (22-30) mmol/L Anion Gap (10-20) BUN (9-20) mg/dL Creatinine (0.8-1.5) MG/DL Est GFR ( Amer) Est GFR (Non-Af Amer) POC Glucose (mg/dL) 205 H 222 H 257 H (65-110) mg/dL Random Glucose (75-110) mg/dL Calcium (8.6-10.4) mg/dl Phosphorus (2.5-4.5) mg/dL Magnesium (1.6-2.3) mg/dL Total Bilirubin (0.2-1.3) mg/dL AST (17-59) U/L ALT (21-72) U/L Alkaline Phosphatase (38-126) U/L Total Protein (6.3-8.3) g/dL Albumin (3.5-5.0) g/dL Globulin (2.2-3.9) gm/dL Albumin/Globulin Ratio (1.0-2.1) Laboratory Results - last 24 hr 06/08/16 06/08/16 06/08/16 12:02 18:04 23:57 WBC RBC Hgb Hct MCV MCH MCHC RDW Plt Count MPV Neut % (Auto) Lymph % (Auto) [place] % (Auto) Eos % (Auto) Baso % (Auto) Neut # Lymph # [place] # Eos # Baso # Puncture Site pCO2 pO2 HCO3 ABG pH ABG Total CO2 ABG O2 Saturation ABG Base Excess ABG Hemoglobin ABG Carboxyhemoglobin POC ABG HHb (Measured) ABG Methemoglobin Philippe Test A-a O2 Difference Respiratory Index Hgb O2 Saturation Mechanical Rate FiO2 Tidal Volume PEEP Sodium Potassium Chloride Carbon Dioxide Anion Gap BUN Creatinine Est GFR ( Amer) Est GFR (Non-Af Amer) POC Glucose (mg/dL) 257 H 222 H 205 H Random Glucose Calcium Phosphorus Magnesium Total Bilirubin AST ALT Alkaline Phosphatase Total Protein Albumin Globulin Albumin/Globulin Ratio 06/09/16 06/09/16 06/09/16 04:30 05:25 06:25 WBC 14.7 H RBC 4.34 L Hgb 12.5 Hct 38.3 MCV 88.3 MCH 28.7 MCHC 32.5 L RDW 16.6 H Plt Count 259 MPV 11.1 Neut % (Auto) 67.4 Lymph % (Auto) 13.4 L [place] % (Auto) 13.5 H Eos % (Auto) 5.3 H Baso % (Auto) 0.4 Neut # 9.9 H Lymph # 2.0 [place] # 2.0 H Eos # 0.8 H Baso # 0.1 Puncture Site Rr pCO2 50 H pO2 79 L HCO3 25.5 ABG pH 7.35 ABG Total CO2 29.1 H ABG O2 Saturation 98.2 H ABG Base Excess 0.9 ABG Hemoglobin 16.8 ABG Carboxyhemoglobin 2.7 H POC ABG HHb (Measured) 1.7 ABG Methemoglobin 1.3 Philippe Test Pos A-a O2 Difference 286.0 Respiratory Index 3.6 Hgb O2 Saturation 94.2 L Mechanical Rate 24 FiO2 60.0 Tidal Volume 500 PEEP 6 Sodium 141 Potassium 4.8 Chloride 108 H Carbon Dioxide 26 Anion Gap 12 BUN 61 H Creatinine 1.3 Est GFR ( Amer) > 60 Est GFR (Non-Af Amer) 59 POC Glucose (mg/dL) 228 H Random Glucose 254 H Calcium 8.0 L Phosphorus 4.2 Magnesium 1.9 Total Bilirubin 0.7 AST 36 ALT 59 Alkaline Phosphatase 282 H Total Protein 5.9 L Albumin 2.4 L Globulin 3.5 Albumin/Globulin Ratio 0.7 L Fingerstick Blood Sugar Results: 228 Review of Systems - Review of Systems Review of Systems: as noted in subjective Assessment/Plan - Assessment and Plan (Free Text) Assessment: Patient is a 45M with PMHx of COPD, asthma, DM, HN, DVT in RLE, NSTEMI in 2015, gallstones, liver cirrhosis, and CKD presents with c/o a RLE pain and swelling. Pt recently admitted to [facility] and found to have DVD in his RLE and discharged on Xarelto. Repeat venous doppler is consistent with extensive R femoral and iliac vein DVT. Annamaria payton was called on 06/04/16 due to pt being unresponsive. Chest compression started. Patient was intubated on the medical floor and transferred to the ICU for close monitoring. On 06/09, patient self extubated and needed to be re-intubated Plan: Neuro: Self extubated this morning requiring intubation. A difficult one in light of patient's body habitus - did not respond well to agents given. Currently on propofol. Will try to wean of and switch to precedex and versed. CV: Hemodynamically stable Hx of HTN - off antihypertensives Hx of NSTEMI (01/2016) Hx of CHF 01/2016 ECHO: LVEF 60-65% 05/2016 ECHO: LVEF 55-60%, mild pulmonary HTN Off Crestor 2/2 to elevated BUN/Cr Off beta-asmita 2/2 to acute respiratory failure Aspirin 81mg PO daily Pulm: Re-intubated and sedated. Patient desaturated to 70's earlier after self- extubation but was bag-masked until intubated. PRVC vent Possible aspiration pneumonia - abx as below Unable to perform CT angio PE control 2/2 CKD Likely obesity hypoventilation and JOVANI Former smoker (quit 5 yrs ago) Hx of COPD Hx of Asthma 06/09 XRAY- refer to final read Heme: LE DVT now on Eliquis 5mg Thrombosis of the R iliac and common femoral vein 05/25/16 (Venous US LE b/l): no evidency of hemodynamically significant insufficiency in the RLE. 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 Normal venous flow noted in the L common femoral vein. Patient was planned for thrombolysis for 06/06 - postponed per surgical team Heme-onc (Dr. 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 Per dietary goals of 20 cc/hr. Hx of gallstones, liver cirrhosis Famotidine 20mg IVP daily Monitor : CKD Acute on chronic renal failure HD received on 06/07/16. HD today- goal of 2500ml if possible Nephro (Dr. Rhoades) on board - help appreciated [place] in, monitor strict I/O ID: low grade fever Bacteremia - resolved possible aspiration PNA 06/04/16 MRSA, blood, trachasp, urine cultures - all negative Abx d/c Prophylaxis: SCDs contraindicated due to DVT Eliquis 5mg PO BID for DVT RLE Pepcid IV daily for GI ppx NS 125cc/hr Tube feedings PT/OT evaluation and treatment when clinically stable Code status - full code <Santino Luu - Last Filed: 06/09/16 18:36> CCU Objective - Vital Signs / Intake & Output Vital Signs (Last 4 hours): Vital Signs Temp Pulse Resp BP BP Pulse Ox 06/09/16 18:00 76 24 153/78 H 144/80 99 06/09/16 17:45 145/80 06/09/16 17:34 75 24 99 06/09/16 17:31 77 24 128/67 99 06/09/16 17:15 147/82 06/09/16 17:00 74 24 128/67 143/78 99 06/09/16 16:30 148/82 06/09/16 16:21 72 24 97 06/09/16 16:15 158/86 H 06/09/16 16:02 66 24 99 06/09/16 16:00 100.1 F H 147/82 176/93 H 06/09/16 15:55 100 F H 75 24 147/82 175/91 H 99 06/09/16 15:45 169/89 H 06/09/16 15:33 64 23 06/09/16 15:30 169/95 H 06/09/16 15:00 62 24 06/09/16 14:50 100 F H 69 24 178/95 H Intake and Output (Last 8hrs): Intake & Output 03/06/09/16 06/09/16 06:59 14:59 22:59 Intake Total 545.6 541.6 174.9 Output Total 2555 2500 1025 Balance -2008.4 -1958.4 -850.1 Weight 341 lb 4.409 oz Intake: Intake, IV Amount 385.6 461.6 174.9 Right Antecubital 385.6 461.6 142.2 Left Femoral 9.3 left antecubital 23.4 Tube Feeding 160 80 0 Output: Urine 2555 2500 1025 Urethral (Campbell) 2555 2500 1025 - Medications Active Medications: Active Medications Generic Name Dose Route Start Last Admin Trade Name Freq PRN Reason Stop Dose Admin Acetaminophen 650 mg 06/04/16 00:38 06/04/16 13:35 Tylenol 325mg Tab PO 650 mg Q6 PRN Administration Fever >100.4 F Acetylcysteine 4 ml 06/04/16 00:01 06/08/16 17:26 Acetylcysteine 20% PO 4 ml BID ANABELLA Administration Albuterol/Ipratropium 3 ml 06/05/16 20:00 06/09/16 13:14 Duoneb 3 Mg/0.5 Mg (3 Ml) Ud INH 3 ml RQ6 ANABELLA Administration Apixaban 5 mg 06/05/16 10:00 06/09/16 18:26 Eliquis PO 5 mg BID ANABELLA Administration Aspirin 81 mg 05/26/16 10:00 06/09/16 11:42 Aspirin Chewable PO Not Given DAILY ANABELLA Calcium Acetate 667 mg 06/06/16 12:00 06/09/16 18:26 Phoslo GT 667 mg TIDCC ANABELLA Administration Famotidine 20 mg 06/04/16 11:45 06/09/16 10:00 Pepcid IVP 20 mg DAILY ANABELLA Administration Furosemide 40 mg 06/08/16 13:15 06/09/16 11:44 Lasix IVP 40 mg Q12 ANABELLA Administration Propofol 100 mls @ 4.817 mls/hr 06/05/16 22:46 06/09/16 18:00 Diprivan IV 10.37 mcg/kg/min .[id number] PRN Titration TITRATE PER MD ORDER Protocol 5 MCG/KG/MIN Midazolam HCl 100 mg/ Sodium 100 mls @ 3.09 mls/hr 06/09/16 10:00 06/09/16 15: 45 Chloride IV 3.09 mls/hr .Q24H ANABELLA Administration Protocol 0.02 MG/KG/HR Dexmedetomidine HCl 200 mcg/ 50 mls @ 7.74 mls/hr 06/09/16 10:18 06/09/16 15:56 Sodium Chloride IVPB 7.74 mls/hr TITR PRN Administration Agitation Protocol 0.2 MCG/KG/HR Insulin Detemir 10 unit 06/10/16 22:00 Levemir SC HS ANABELLA Insulin Human Regular 0 unit 06/07/16 12:00 06/09/16 18:26 Novolin R SC 4 unit Q6 ANABELLA Administration Protocol Lorazepam 2 mg 06/06/16 14:53 06/08/16 22:08 Ativan IVP 2 mg Q6H PRN Administration Anxiety Methylprednisolone 20 mg 06/07/16 10:09 06/09/16 11:48 Solu-Medrol IV 20 mg Q12 ANABELLA Administration - Patient Studies Lab Studies: Microbiology Studies 06/04/16 16:47 Blood Culture - Final Blood-Thru Central Line NO GROWTH AFTER 5 DAYS Gram Stain - Final TEST NOT PERFORMED 06/04/16 16:47 Blood Culture - Final Blood-Thru Central Line NO GROWTH AFTER 5 DAYS Gram Stain - Final TEST NOT PERFORMED Lab Studies 06/09/16 06/09/16 06/09/16 Range/Units 18:13 12:04 06:25 WBC 14.7 H (4.8-10.8) K/uL RBC 4.34 L (4.40-5.90) Mil/uL Hgb 12.5 (12.0-18.0) g/dL Hct 38.3 (35.0-51.0) % MCV 88.3 (80.0-94.0) fL MCH 28.7 (27.0-31.0) pg MCHC 32.5 L (33.0-37.0) g/dL RDW 16.6 H (11.5-14.5) % Plt Count 259 (130-400) K/uL MPV 11.1 (7.2-11.7) fL Neut % (Auto) 67.4 (50.0-75.0) % Lymph % (Auto) 13.4 L (20.0-40.0) % [place] % (Auto) 13.5 H (0.0-10.0) % Eos % (Auto) 5.3 H (0.0-4.0) % Baso % (Auto) 0.4 (0.0-2.0) % Neut # 9.9 H (1.8-7.0) K/uL Lymph # 2.0 (1.0-4.3) K/uL [place] # 2.0 H (0.0-0.8) K/uL Eos # 0.8 H (0.0-0.7) K/uL Baso # 0.1 (0.0-0.2) K/uL Puncture Site pCO2 (35-45) mm/Hg pO2 (80-100) mm/Hg HCO3 (21-28) mmol/L ABG pH (7.35-7.45) ABG Total CO2 (22-28) mmol/L ABG O2 Saturation (95-98) % ABG Base Excess (-2.0-3.0) mmol/L ABG Hemoglobin (11.7-17.4) g/dL ABG Carboxyhemoglobin (0.5-1.5) % POC ABG HHb (Measured) (0.0-5.0) % ABG Methemoglobin (0.0-3.0) % Philippe Test A-a O2 Difference mm/Hg Respiratory Index Hgb O2 Saturation (95.0-98.0) % Mechanical Rate FiO2 % Tidal Volume PEEP Sodium 141 (132-148) mmol/L Potassium 4.8 (3.6-5.2) mmol/L Chloride 108 H (98-107) mmol/L Carbon Dioxide 26 (22-30) mmol/L Anion Gap 12 (10-20) BUN 61 H (9-20) mg/dL Creatinine 1.3 (0.8-1.5) MG/DL Est GFR ( Amer) > 60 Est GFR (Non-Af Amer) 59 POC Glucose (mg/dL) 221 H 159 H (65-110) mg/dL Random Glucose 254 H (75-110) mg/dL Calcium 8.0 L (8.6-10.4) mg/dl Phosphorus 4.2 (2.5-4.5) mg/dL Magnesium 1.9 (1.6-2.3) mg/dL Total Bilirubin 0.7 (0.2-1.3) mg/dL AST 36 (17-59) U/L ALT 59 (21-72) U/L Alkaline Phosphatase 282 H (38-126) U/L Total Protein 5.9 L (6.3-8.3) g/dL Albumin 2.4 L (3.5-5.0) g/dL Globulin 3.5 (2.2-3.9) gm/dL Albumin/Globulin Ratio 0.7 L (1.0-2.1) 06/09/16 06/09/16 06/08/16 Range/Units 05:25 04:30 23:57 WBC (4.8-10.8) K/uL RBC (4.40-5.90) Mil/uL Hgb (12.0-18.0) g/dL Hct (35.0-51.0) % MCV (80.0-94.0) fL MCH (27.0-31.0) pg MCHC (33.0-37.0) g/dL RDW (11.5-14.5) % Plt Count (130-400) K/uL MPV (7.2-11.7) fL Neut % (Auto) (50.0-75.0) % Lymph % (Auto) (20.0-40.0) % [place] % (Auto) (0.0-10.0) % Eos % (Auto) (0.0-4.0) % Baso % (Auto) (0.0-2.0) % Neut # (1.8-7.0) K/uL Lymph # (1.0-4.3) K/uL [place] # (0.0-0.8) K/uL Eos # (0.0-0.7) K/uL Baso # (0.0-0.2) K/uL Puncture Site Rr pCO2 50 H (35-45) mm/Hg pO2 79 L (80-100) mm/Hg HCO3 25.5 (21-28) mmol/L ABG pH 7.35 (7.35-7.45) ABG Total CO2 29.1 H (22-28) mmol/L ABG O2 Saturation 98.2 H (95-98) % ABG Base Excess 0.9 (-2.0-3.0) mmol/L ABG Hemoglobin 16.8 (11.7-17.4) g/dL ABG Carboxyhemoglobin 2.7 H (0.5-1.5) % POC ABG HHb (Measured) 1.7 (0.0-5.0) % ABG Methemoglobin 1.3 (0.0-3.0) % Philippe Test Pos A-a O2 Difference 286.0 mm/Hg Respiratory Index 3.6 Hgb O2 Saturation 94.2 L (95.0-98.0) % Mechanical Rate 24 FiO2 60.0 % Tidal Volume 500 PEEP 6 Sodium (132-148) mmol/L Potassium (3.6-5.2) mmol/L Chloride (98-107) mmol/L Carbon Dioxide (22-30) mmol/L Anion Gap (10-20) BUN (9-20) mg/dL Creatinine (0.8-1.5) MG/DL Est GFR ( Amer) Est GFR (Non-Af Amer) POC Glucose (mg/dL) 228 H 205 H (65-110) mg/dL Random Glucose (75-110) mg/dL Calcium (8.6-10.4) mg/dl Phosphorus (2.5-4.5) mg/dL Magnesium (1.6-2.3) mg/dL Total Bilirubin (0.2-1.3) mg/dL AST (17-59) U/L ALT (21-72) U/L Alkaline Phosphatase (38-126) U/L Total Protein (6.3-8.3) g/dL Albumin (3.5-5.0) g/dL Globulin (2.2-3.9) gm/dL Albumin/Globulin Ratio (1.0-2.1) Laboratory Results - last 24 hr 06/08/16 06/09/16 06/09/16 23:57 04:30 05:25 WBC RBC Hgb Hct MCV MCH MCHC RDW Plt Count MPV Neut % (Auto) Lymph % (Auto) [place] % (Auto) Eos % (Auto) Baso % (Auto) Neut # Lymph # [place] # Eos # Baso # Puncture Site Rr pCO2 50 H pO2 79 L HCO3 25.5 ABG pH 7.35 ABG Total CO2 29.1 H ABG O2 Saturation 98.2 H ABG Base Excess 0.9 ABG Hemoglobin 16.8 ABG Carboxyhemoglobin 2.7 H POC ABG HHb (Measured) 1.7 ABG Methemoglobin 1.3 Philippe Test Pos A-a O2 Difference 286.0 Respiratory Index 3.6 Hgb O2 Saturation 94.2 L Mechanical Rate 24 FiO2 60.0 Tidal Volume 500 PEEP 6 Sodium Potassium Chloride Carbon Dioxide Anion Gap BUN Creatinine Est GFR ( Amer) Est GFR (Non-Af Amer) POC Glucose (mg/dL) 205 H 228 H Random Glucose Calcium Phosphorus Magnesium Total Bilirubin AST ALT Alkaline Phosphatase Total Protein Albumin Globulin Albumin/Globulin Ratio 06/09/16 06/09/16 06/09/16 06:25 12:04 18:13 WBC 14.7 H RBC 4.34 L Hgb 12.5 Hct 38.3 MCV 88.3 MCH 28.7 MCHC 32.5 L RDW 16.6 H Plt Count 259 MPV 11.1 Neut % (Auto) 67.4 Lymph % (Auto) 13.4 L [place] % (Auto) 13.5 H Eos % (Auto) 5.3 H Baso % (Auto) 0.4 Neut # 9.9 H Lymph # 2.0 [place] # 2.0 H Eos # 0.8 H Baso # 0.1 Puncture Site pCO2 pO2 HCO3 ABG pH ABG Total CO2 ABG O2 Saturation ABG Base Excess ABG Hemoglobin ABG Carboxyhemoglobin POC ABG HHb (Measured) ABG Methemoglobin Philippe Test A-a O2 Difference Respiratory Index Hgb O2 Saturation Mechanical Rate FiO2 Tidal Volume PEEP Sodium 141 Potassium 4.8 Chloride 108 H Carbon Dioxide 26 Anion Gap 12 BUN 61 H Creatinine 1.3 Est GFR ( Amer) > 60 Est GFR (Non-Af Amer) 59 POC Glucose (mg/dL) 159 H 221 H Random Glucose 254 H Calcium 8.0 L Phosphorus 4.2 Magnesium 1.9 Total Bilirubin 0.7 AST 36 ALT 59 Alkaline Phosphatase 282 H Total Protein 5.9 L Albumin 2.4 L Globulin 3.5 Albumin/Globulin Ratio 0.7 L Assessment/Plan (1) Acute respiratory failure Current Visit: Yes Status: Acute Attending/Attestation - Attestation I have personally seen and examined this patient.: Yes I have fully participated in the care of the patient.: Yes I have reviewed all pertinent clinical information: Yes Notes (Text): 06/09/16 18:36 I have seen and examined the patient. Medical records, lab studies, and imaging were reviewed by me and a management plan was formulated on multidisciplinary rounds with resident Dr. Arreguin. I agree with their above documented assessment and plan. Critical Care Time 35 minutes. Multi-disciplinary rounds were performed with house staff, nursing, speech therapy, respiratory therapy, pharmacy and nutrition with integrated input from the primary team/attending and other consulting services. The documented time is cumulative and includes review of patient data/exams/labs/chart review and examination of the patient on rounds and throughout the day; time is exclusive of any procedures or teaching time.
[2016-06-09] MEDS: Midazolam 2 MG/2 ML VIAL ONE ×2 (09:10→11:50)
[2016-06-09] MEDS ORDERED: Midazolam 2 MG/2 ML VIAL IVP ONE (09:15)
[2016-06-09] MEDS ORDERED: Etomidate 20 mg/10ml Inj IV ONE (09:18)
[2016-06-09] MEDS ORDERED: Succinylcholine Chloride 20 mg/ml Syr (5 ml) IV ONE (09:20)
--- NOTE | 2016-06-09 09:49 | RAD ---
HISTORY: s/p re-intubation after self extubation COMPARISON: 06/09/2016 at 0700 hours and 06/08/2016 FINDINGS: LUNGS: Bilateral interstitial lung prominence with airspace coalescence in the right mid to lower lung zone. Interstitial pulmonary edema with progressive alveolar pulmonary edema is likely. Underlying infiltrates are not excluded. Portable technique and large body habitus limits optimal evaluation PLEURA: The prior small bilateral pleural effusions appear slightly less No pneumothorax apparent. CARDIOVASCULAR: Cardiomegaly OSSEOUS STRUCTURES: Thoracic spondylosis VISUALIZED UPPER ABDOMEN: Normal. OTHER FINDINGS: The endotracheal tube tip is approximately 18 to 20 mm from the fish. The previously reported NG tube is difficult to see on this exam EKG leads in place. IMPRESSION: Pulmonary edema -as detailed above. Minimal decrease in the prior small bilateral pleural effusions .
--- NOTE | 2016-06-09 09:52 | CP.PCM.PN ---
Subjective - Date & Time of Evaluation Date of Evaluation: 06/09/16 Time of Evaluation: 09:49 - Subjective Subjective: Self extubated earlier; now re-intubated UO>3000ml Renal function stable BP stable No further dialysis has been done Objective - Vital Signs/Intake and Output Vital Signs (last 24 hours): Temp Pulse Resp BP Pulse Ox 99 F 82 24 138/78 96 06/09/16 04:00 06/09/16 07:00 06/09/16 07:00 06/09/16 07:00 06/09/16 07:00 Intake and Output: 06/09/16 06/09/16 06:59 18:59 Intake Total 968.4 68.2 Output Total 3330 100 Balance -2361.6 -31.8 - Medications Medications: Current Medications Acetaminophen (Tylenol 325mg Tab) 650 mg PO Q6 PRN PRN Reason: Fever >100.4 F Last Admin: 06/04/16 13:35 Dose: 650 mg Acetylcysteine (Acetylcysteine 20%) 4 ml PO BID [facility] Last Admin: 06/08/16 17:26 Dose: 4 ml Albuterol/Ipratropium (Duoneb 3 Mg/0.5 Mg (3 Ml) Ud) 3 ml INH RQ6 [facility] Last Admin: 06/09/16 07:42 Dose: 3 ml Apixaban (Eliquis) 5 mg PO BID [facility] Last Admin: 06/08/16 17:26 Dose: 5 mg Aspirin (Aspirin Chewable) 81 mg PO DAILY [facility] Last Admin: 06/08/16 09:42 Dose: 81 mg Calcium Acetate (Phoslo) 667 mg GT TIDCC [facility] Last Admin: 06/08/16 17:26 Dose: 667 mg Famotidine (Pepcid) 20 mg IVP DAILY [facility] Last Admin: 06/08/16 09:41 Dose: 20 mg Furosemide (Lasix) 40 mg IVP Q12 [facility] Last Admin: 06/08/16 22:04 Dose: 40 mg Aztreonam 1 gm/ Sodium (Chloride) 100 mls @ 100 mls/hr IVPB Q12H [facility] Last Admin: 06/08/16 22:05 Dose: 100 mls/hr Propofol (Diprivan) 100 mls @ 4.817 mls/hr IV .[id number] PRN; Protocol; 5 MCG/KG/ MIN PRN Reason: TITRATE PER MD ORDER Last Admin: 06/09/16 06:24 Dose: 48.172 mls/hr Cefepime HCl 1 gm/ Dextrose 50 mls @ 100 mls/hr IVPB Q12H [facility] Last Admin: 06/08/16 20:38 Dose: 100 mls/hr Insulin Human Regular (Novolin R) 0 unit SC Q6 [facility] PRN Reason: Protocol Last Admin: 06/09/16 06:26 Dose: 4 unit Lorazepam (Ativan) 2 mg IVP Q6H PRN PRN Reason: Anxiety Last Admin: 06/08/16 22:08 Dose: 2 mg Methylprednisolone (Solu-Medrol) 20 mg IV Q12 [facility] Last Admin: 06/08/16 22:03 Dose: 20 mg - Labs Labs: 06/09/16 06:25 06/09/16 06:25 PT 13.9 SECONDS (9.7-12.2) H 05/27/16 09:38 INR 1.2 05/27/16 09:38 APTT 65 SECONDS (21-34) H 05/29/16 10:50 - Constitutional Appears: In Acute Distress, Chronically Ill - Head Exam Head Exam: ATRAUMATIC, NORMAL INSPECTION - Neck Exam Neck Exam: Normal Inspection. absent: Tenderness - Respiratory Exam Respiratory Exam: Clear to Ausculation Bilateral, Respiratory Distress - Cardiovascular Exam Cardiovascular Exam: REGULAR RHYTHM, +S1 - GI/Abdominal Exam GI & Abdominal Exam: Distended. absent: Tenderness - Extremities Exam Extremities Exam: Pedal Edema, Tenderness - Neurological Exam Neurological Exam: Altered, CN II-XII Intact - Skin Skin Exam: Dry, Intact Assessment and Plan (1) Cellulitis Status: Acute (2) Chronic kidney disease, stage 3 (moderate) Status: Acute (3) Deep venous thrombosis of lower extremity Status: Acute (4) Proteinuria due to type 2 diabetes mellitus Status: Acute (5) Type 2 diabetes mellitus with diabetic nephropathy Status: Acute (6) Nephrotic syndrome Status: Acute (7) HENRIQUE (acute kidney injury) Status: Acute - Assessment and Plan (Free Text) Plan: Continue diuresis with IV lasix Monitor lytes Hold dialysis for now
[2016-06-09] MEDS ORDERED: Insulin Detemir 100 units/ml Vial (Levemir) SC STA (10:41)
[2016-06-09] MEDS: MethylPREDNISolone 40 mg Vial IV SCH ×2 (11:48→21:32)
--- NOTE | 2016-06-09 11:52 | CP.PCM.PN ---
Subjective - Date & Time of Evaluation Date of Evaluation: 06/09/16 Time of Evaluation: 11:50 - Subjective Subjective: Patient remains intubated - earlier in the morning the patient self extubated suddenly and he had to be re-intubated and currently is on different sedation medications at this time. His chest XRAY still shows a lot of congestion, from what I understand there are plans to give more HD today to see if this can help with a successful extubation. Patient remains on anticoagulation As before, he is being follow for: Acute Respiratory Failure, Aspiration Pneumonia, Sepsis, Bacteremia, Right lower DVT+ (noncompliance on Xarelto), Antiphosolipid syndrome, Hx of COPD, acute on chronic kidney failure Patient seen, examined and currently intubated. Unable to review ROS given clinical state. Objective - Vital Signs/Intake and Output Vital Signs (last 24 hours): Temp Pulse Resp BP Pulse Ox 99 F 94 H 24 189/102 H 96 06/09/16 04:00 06/09/16 10:00 06/09/16 10:00 06/09/16 09:28 06/09/16 10:00 Intake and Output: 06/09/16 06/09/16 06:59 18:59 Intake Total 968.4 272.8 Output Total 3330 420 Balance -2361.6 -147.2 - Medications Medications: Current Medications Acetaminophen (Tylenol 325mg Tab) 650 mg PO Q6 PRN PRN Reason: Fever >100.4 F Last Admin: 06/04/16 13:35 Dose: 650 mg Acetylcysteine (Acetylcysteine 20%) 4 ml PO BID [facility] Last Admin: 06/08/16 17:26 Dose: 4 ml Albuterol/Ipratropium (Duoneb 3 Mg/0.5 Mg (3 Ml) Ud) 3 ml INH RQ6 [facility] Last Admin: 06/09/16 07:42 Dose: 3 ml Apixaban (Eliquis) 5 mg PO BID [facility] Last Admin: 06/08/16 17:26 Dose: 5 mg Aspirin (Aspirin Chewable) 81 mg PO DAILY [facility] Last Admin: 06/08/16 09:42 Dose: 81 mg Calcium Acetate (Phoslo) 667 mg GT TIDCC [facility] Last Admin: 06/08/16 17:26 Dose: 667 mg Famotidine (Pepcid) 20 mg IVP DAILY [facility] Last Admin: 06/08/16 09:41 Dose: 20 mg Furosemide (Lasix) 40 mg IVP Q12 [facility] Last Admin: 06/08/16 22:04 Dose: 40 mg Heparin Sodium (Porcine) (Heparin) 1,000 units IVP ONCE ONE Stop: 06/09/16 13:31 Propofol (Diprivan) 100 mls @ 4.817 mls/hr IV .[id number] PRN; Protocol; 5 MCG/KG/ MIN PRN Reason: TITRATE PER MD ORDER Last Admin: 06/09/16 06:24 Dose: 48.172 mls/hr Midazolam HCl 100 mg/ Sodium (Chloride) 100 mls @ 3.09 mls/hr IV .Q24H [facility]; 0.02 MG/KG/HR PRN Reason: Protocol Dexmedetomidine HCl 200 mcg/ (Sodium Chloride) 50 mls @ 7.74 mls/hr IVPB TITR PRN; Protocol; 0.2 MCG/KG/HR PRN Reason: Agitation Insulin Detemir (Levemir) 10 unit SC HS [facility] Insulin Human Regular (Novolin R) 0 unit SC Q6 [facility] PRN Reason: Protocol Last Admin: 06/09/16 06:26 Dose: 4 unit Lorazepam (Ativan) 2 mg IVP Q6H PRN PRN Reason: Anxiety Last Admin: 06/08/16 22:08 Dose: 2 mg Methylprednisolone (Solu-Medrol) 20 mg IV Q12 [facility] Last Admin: 06/08/16 22:03 Dose: 20 mg - Labs Labs: 06/09/16 06:25 06/09/16 06:25 PT 13.9 SECONDS (9.7-12.2) H 05/27/16 09:38 INR 1.2 05/27/16 09:38 APTT 65 SECONDS (21-34) H 05/29/16 10:50 - Constitutional Appears: Chronically Ill - ENT Exam ENT Exam: Mucous Membranes Moist - Respiratory Exam Respiratory Exam: Decreased Breath Sounds, Rhonchi Additional comments: Mechanical intubation - Cardiovascular Exam Cardiovascular Exam: REGULAR RHYTHM - GI/Abdominal Exam GI & Abdominal Exam: Distended. absent: Firm, Guarding, Rigid - Neurological Exam Neurological Exam: Altered. absent: Alert, Awake, CN II-XII Intact - Skin Skin Exam: Normal Color, Warm Assessment and Plan - Assessment and Plan (Free Text) Assessment: 1) Acute respiratory failure 06/09: This morning patient self extubated and had to be reintubated. The sedation medication was changed; will be having more HD today to see if this will help with a successful extubation. 06/08: Remanins intubated, had HD yesterday. Hopefully can be weaned of ventilator soon 06/07: Patient will be getting HD at some point later today to see if this helps with extubation 06/06: I updated family members with reguards to recent events. He may or may not have a PE or this could be aspiration pneumonia for example. He is on IV abx and also he continues to recieve anticoagulation. * Intubated on 06/04/16 for "Code Blue" called on 06/04/16, patient did not lose pulse * Possible aspiration pneumonia vs less pulmonary embolus despite being on anticoagulation for extensive DVT right lower extremity * Unable to perform CT angio PE control secondary to chronic kidney disease 2) Thrombosis of the R iliac and common femoral vein 06/06: As mentioned before the patient was intended to have thrombolysis of the lower extremity with the chronic DVT however this was not able to be done immediately due to renal function. As of now on anticogulation. 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 normal venous flow noted in the left common femoral vein * Prior to respiratory arrest on 06/04/16, patient was planned for thrombolysis for this upcoming Tuesday 06/06 * Heme-oncology (Dr. 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 Ortega) on board 3) Sepsis 06/09: Currently abx are being stopped today and monitor how the patient does 06/08: WBC are 16 today, remains on IV abx 06/06: The most recent blood cultures have been negative for 48 hrs, remains on IV abx. WBC 14 today. No elevated temperatures today * Criteria admission: WBC: 43.8, HR>90, Cr> 2.0, platelets 103 and blood culture: Serattia from 05/25/16 * Now: Criteria: WBC: 25.5, Tmax: 102.1 bands>10, platelets normalized, Cr 2.0, chest xray for possible aspiration pneumonia pending new cultures * Urine culture: no growth * 05/27/16 Blood Venous: No growth After 5 days X2 * Infectious disease (Dr. Marsh) on board * Procalcitonin: 16.1 (05/26/16)--> 31.81 (05/27/16)-->ordered for new one * Aztreonam 1gram IV Q 12hours (active since 05/26/16) and Maxipime 1gram IV Q 12hours (active since 05/29/16) * Abd CT(05/28/16): bilateral inguinal lymphadenopathy, right greater than left. cirrhotic contour of liver. fatty atrophy of the pancreas, splenic atrophy w residula spleen, recitulation and edema seen in subcutanous soft tissues, cholelithiasis, consolidative changes at both lung bases which may represen underying infiltrate. * Ab US (05/28/16): enlarged liver with diffuse fatty infiltration, cholelithiasis, limited visualization of the pancreas * Echocardiogram (05/30/16): EF: 55-60% left ventricular ejection fraction is within normal range. left ventricular diastolic function is normal. trace to mild tricupsid regurgitation, PAP 35-45 mmgHG, mild pulmonary hypertension 4) Acute renal failure on Chronic Kidney disease with Nephrotic Syndrome 06/09: More HD today 06/08: S/P Hemodialysis 06/07: HD to be started some point * Nephrology (Dr. Rhoades) on board-->help appreciated * NS 125 cc/hr (started 06/04/16) * Has dialysis catheter port placed on 06/04/16 by ICU * Monitor potassium levels 5) History of COPD/asthma * Former smoker, quit 5 years ago * currently intubated secondary to respiratory arrest secondary to likely pnuemonia * Chest xray (06/04/16): in site ett and apparent in situ NGT as aboove in distal aspect of the NGT is poorly delinated, cardiomegaly, pulmonary vascular congestive changes with bilateral lower love alveolar-type infiltrates and bilateral effusions 6) History of Congestive Heart failure * 01/2016 ECHO- LV EF 60-65%, mild pulmonary HTN (see full report) * Echocardiogram (05/30/16): EF: 55-60% left ventricular ejection fraction is within normal range. left ventricular diastolic function is normal. trace to mild tricupsid regurgitation, PAP 35-45 mmgHG, mild pulmonary hypertension * off Crestor secondary to elevated BUN/Cr * off beta asmita secondary to acute respiratory failure; hx of copd se worsening bronchospasm * Aspirin 81mg PO daily 7)Diabetes Mellitus * Accuchecks Q6 hours * Novolin sliding scale subq 6hours * Diabetic source 20cc/hr via OGT * Prior a1c shows uncontrolled 8) History of Hypertension * Off antihypertensives 9) Hx of Nonstemi * January 2016 hospitalization * No cardiac cath * Hx of CHF 10) Prophylactic measures - SCDs contraindicated due to DVT - Eliquis 5mg PO BID for DVT Right LE - Pepcid 20mg PO daily for GI ppx - Tube feedings
[2016-06-09] MEDS: Midazolam 50 mg/10 ml 100 MG in Sodium Chloride 0.9% 80 ML IV SCH ×2 (11:53→15:45)
[2016-06-09] MEDS: Dexmedetomidine Hydrochloride 200 MCG in Sodium Chloride 0.9% 48 ML IVPB PRN ×2 (11:55→15:56)
--- NOTE | 2016-06-09 13:28 | RAD ---
HISTORY: intubated COMPARISON: Multiple prior chest x-rays, the most recent performed 06/08/16 TECHNIQUE: Chest, one view. FINDINGS: Endotracheal tube terminates approximately 4.5 cm above the level the fish. Nasogastric tube extends the expected location of the stomach. Multiple external wires and leads obscure evaluation of the underlying parenchyma. LUNGS: Interstitial prominence compatible with edema or infection. Please note that chest x-ray has limited sensitivity for the detection of pulmonary masses. PLEURA: Small bilateral pleural effusions. No definite pneumothorax . CARDIOVASCULAR: Cardiomegaly. OSSEOUS STRUCTURES: Degenerative changes. VISUALIZED UPPER ABDOMEN: Unremarkable. OTHER FINDINGS: None. IMPRESSION: Support lines and tubes as above. Interstitial prominence compatible with edema or infection. Small bilateral pleural effusions.
--- NOTE | 2016-06-09 14:00 | PCM.SURG1 ---
Surgeon's Initial Post Op Note - Surgeon's Notes Surgeon: Angel Petersen Freight Representative: NONE Type of Anesthesia: Local Pre-Operative Diagnosis: Poor venous access Operative Findings: Patent right IJV. Post-Operative Diagnosis: Poor venous access Operation Performed: Right IJV TLC placement. Specimen/Specimens Removed: none Estimated Blood Loss: EBL {In ML}: 3 Blood Products Given: N/A Drains Used: No Drains Post-Op Condition: Critical Date of Surgery/Procedure: 06/09/16 Time of Surgery/Procedure: 13:55
--- NOTE | 2016-06-09 14:31 | RAD ---
HISTORY: Status post right TLC placement. Tip confirmation? COMPARISON: No prior. FINDINGS: LUNGS: Interval placement right IJ central venous line with tip in the SVC/RA junction. In situ ETT, tip of which appears to lie 3.0 cm above fish. Pulmonary vascular congestive changes, bilateral lower lobe alveolar-type infiltrates and bilateral effusions. PLEURA: No apparent pneumothorax. CARDIOVASCULAR: Marked cardiomegaly. OSSEOUS STRUCTURES: No significant abnormalities. VISUALIZED UPPER ABDOMEN: Normal. OTHER FINDINGS: None. IMPRESSION: ETT and right IJ central venous line as above. Cardiomegaly with pulmonary vascular congestive changes, bilateral alveolar-type infiltrates and bilateral effusions
--- NOTE | 2016-06-09 18:42 | PCM.PROC ---
Procedures Attestation:: I certify that I have explained the specified Operation(s) or Procedure(s), risks, benefits and reasonable alternatives to the Patient and/or other person responsible. The opportunity was given to ask questions and all questions answered - Intubation Time Out Performed: No Sedative: Versed, Other (propofol) Mg Given: 2mg, propofol gtt Paralytic: Succinylholine Mg Given: 100 Laryngoscope: Hopper, Glidescope ET Tube Size: 8.0 ET Tube Secured at Depth: 22 ET Tube Secured Locarion: Other ET Tube Placement Confirmation: Breath Sounds Equal Bilaterally, No Breath Sounds Over Epigastrum, Confirmation w/Capnometry Patient Tolerated Procedure: Well Procedure Immediate Complications: Other
[2016-06-09] MEDS ORDERED: Insulin Detemir 100 units/ml Vial (Levemir) SC SCH (22:00)
--- NOTE | 2016-06-09 22:54 | CP.PCM.PN ---
Subjective - Date & Time of Evaluation Date of Evaluation: 06/09/16 Time of Evaluation: 18:45 - Subjective Subjective: Remains vented Objective - Vital Signs/Intake and Output Vital Signs (last 24 hours): Temp Pulse Resp BP Pulse Ox 100.1 F H 68 24 150/76 98 06/09/16 16:00 06/09/16 19:00 06/09/16 19:00 06/09/16 21:29 06/09/16 19:00 Intake and Output: 06/09/16 06/10/16 18:59 06:59 Intake Total 716.5 97.8 Output Total 3525 80 Balance -2808.5 17.8 - Medications Medications: Current Medications Acetaminophen (Tylenol 325mg Tab) 650 mg PO Q6 PRN PRN Reason: Fever >100.4 F Last Admin: 06/04/16 13:35 Dose: 650 mg Acetylcysteine (Acetylcysteine 20%) 4 ml PO BID [facility] Last Admin: 06/08/16 17:26 Dose: 4 ml Albuterol/Ipratropium (Duoneb 3 Mg/0.5 Mg (3 Ml) Ud) 3 ml INH RQ6 [facility] Last Admin: 06/09/16 19:40 Dose: 3 ml Apixaban (Eliquis) 5 mg PO BID [facility] Last Admin: 06/09/16 18:26 Dose: 5 mg Aspirin (Aspirin Chewable) 81 mg PO DAILY [facility] Last Admin: 06/09/16 11:42 Dose: Not Given Calcium Acetate (Phoslo) 667 mg GT TIDCC [facility] Last Admin: 06/09/16 18:26 Dose: 667 mg Famotidine (Pepcid) 20 mg IVP DAILY [facility] Last Admin: 06/09/16 10:00 Dose: 20 mg Furosemide (Lasix) 40 mg IVP Q12 [facility] Last Admin: 06/09/16 21:29 Dose: 40 mg Propofol (Diprivan) 100 mls @ 4.817 mls/hr IV .[id number] PRN; Protocol; 5 MCG/KG/ MIN PRN Reason: TITRATE PER MD ORDER Last Titration: 06/09/16 18:00 Dose: 10.37 mcg/kg/min Midazolam HCl 100 mg/ Sodium (Chloride) 100 mls @ 3.09 mls/hr IV .Q24H [facility]; 0.02 MG/KG/HR PRN Reason: Protocol Last Titration: 06/09/16 20:00 Dose: 0.03 mg/kg/hr Dexmedetomidine HCl 200 mcg/ (Sodium Chloride) 50 mls @ 7.74 mls/hr IVPB TITR PRN; Protocol; 0.2 MCG/KG/HR PRN Reason: Agitation Last Admin: 06/09/16 15:56 Dose: 7.74 mls/hr Insulin Detemir (Levemir) 10 unit SC HS [facility] Insulin Human Regular (Novolin R) 0 unit SC Q6 [facility] PRN Reason: Protocol Last Admin: 06/09/16 18:26 Dose: 4 unit Lorazepam (Ativan) 2 mg IVP Q6H PRN PRN Reason: Anxiety Last Admin: 06/08/16 22:08 Dose: 2 mg Methylprednisolone (Solu-Medrol) 20 mg IV Q12 [facility] Last Admin: 06/09/16 21:32 Dose: 20 mg - Labs Labs: 06/09/16 06:25 06/09/16 06:25 PT 13.9 SECONDS (9.7-12.2) H 05/27/16 09:38 INR 1.2 05/27/16 09:38 APTT 65 SECONDS (21-34) H 05/29/16 10:50 - Head Exam Head Exam: ATRAUMATIC - Eye Exam Eye Exam: Normal appearance - ENT Exam ENT Exam: Mucous Membranes Dry - Respiratory Exam Respiratory Exam: Decreased Breath Sounds - Cardiovascular Exam Cardiovascular Exam: +S1, +S2 - GI/Abdominal Exam GI & Abdominal Exam: Normal Bowel Sounds - Extremities Exam Extremities Exam: Pedal Edema Assessment and Plan (1) Deep venous thrombosis of lower extremity Assessment & Plan: therapeutic anticoagulation Status: Acute (2) Leukocytosis Assessment & Plan: on antibiotics Status: Acute (3) Coagulopathy Assessment & Plan: nutritional Status: Acute
[2016-06-10] MEDS: (Novolin R) Insulin Human Regular 100 units/ml vial SC SCH ×4 (00:36→17:54)
[2016-06-10] MEDS: Albuterol-Ipratrop 3 mg / 0.5 (3 ml) UD INH SCH ×4 (00:59→19:19)
[2016-06-10] MEDS: Dexmedetomidine Hydrochloride 200 MCG in Sodium Chloride 0.9% 48 ML IVPB PRN ×3 (02:41→19:29)
[2016-06-10 04:27] LABS: ABG ALLEN TEST POS; ABG MECHANICAL RATE 24; ARTERIAL BLOOD HGB O2 SAT 93.9 % (95.0-98.0); ATERIAL BLOOD GAS PEEP 6; CARBOXYHEMOGLOBIN 1.9 % (0.5-1.5); DRAW SITE RR; HHB 3.1 % (0.0-5.0); METHEMOGLOBIN 1.1 % (0.0-3.0)
[2016-06-10] MEDS: Midazolam 50 mg/10 ml 100 MG in Sodium Chloride 0.9% 80 ML IV SCH ×2 (06:24→10:43)
[2016-06-10 06:42] LABS: BASO % 0.2 % (0.0-2.0); EOS # 0.4 K/uL (0.0-0.7); EOS % 2.6 % (0.0-4.0); HEMATOCRIT 40.9 % (35.0-51.0); LYMPH # 2.3 K/uL (1.0-4.3); LYMPH % 15.1 % (20.0-40.0); MEAN CELL VOLUME 86.9 fL (80.0-94.0); MEAN CORPUSCULAR HEMOGLOBIN 28.8 pg (27.0-31.0); MEAN CORPUSCULAR HGB CONC 33.1 g/dL (33.0-37.0); MEAN PLATELET VOLUME 10.5 fL (7.2-11.7); MONO # 2.3 K/uL (0.0-0.8); MONO % 15.1 % (0.0-10.0); NRBC % 0.3 % (0.0-2.0); RED CELL DISTRIBUTION WIDTH 16.3 % (11.5-14.5); WHITE BLOOD COUNT 15.3 K/uL (4.8-10.8)
[2016-06-10 06:45] LABS: CHLORIDE 103 mmol/L (98-107); SODIUM 142 mmol/L (132-148)
[2016-06-10 06:46] LABS: POTASSIUM 4.5 mmol/L (3.6-5.2)
[2016-06-10 06:48] LABS: ALB/GLOB RATIO 0.8 (1.0-2.1); ALKALINE PHOSPHATASE 277 U/L (38-126); ALT/SGPT 48 U/L (21-72); AST/SGOT 35 U/L (17-59); BILIRUBIN,TOTAL 0.8 mg/dL (0.2-1.3); BLOOD UREA NITROGEN 50 mg/dL (9-20); CARBON DIOXIDE 29 mmol/L (22-30); GFR AFRICAN-AMERICAN > 60; GLUCOSE,RANDOM 251 mg/dL (75-110); PHOSPHOROUS 3.9 mg/dL (2.5-4.5); TOTAL PROTEIN 5.8 g/dL (6.3-8.3)
[2016-06-10 06:49] LABS: CALCIUM 8.2 mg/dl (8.6-10.4); MAGNESIUM 1.7 mg/dL (1.6-2.3)
--- NOTE | 2016-06-10 09:21 | CP.PCM.PN ---
Subjective - Date & Time of Evaluation Date of Evaluation: 06/10/16 Time of Evaluation: 09:19 - Subjective Subjective: s/p dialysis 06/09 for extra fluid removal UO>7000ml/24 hrs Remains sedated on vent; NGT feeds at 40 ml qh Labs reviewed- acceptable CXR with CHF pattern still Objective - Vital Signs/Intake and Output Vital Signs (last 24 hours): Temp Pulse Resp BP Pulse Ox 101 F H 72 7 L 169/83 H 94 L 06/10/16 05:52 06/10/16 06:01 06/10/16 06:01 06/10/16 06:00 06/10/16 06:01 Intake and Output: 06/10/16 06/10/16 06:59 18:59 Intake Total 666.6 Output Total 3180 Balance -2513.4 - Medications Medications: Current Medications Acetaminophen (Tylenol 325mg Tab) 650 mg PO Q6 PRN PRN Reason: Fever >100.4 F Last Admin: 06/10/16 04:52 Dose: 650 mg Acetylcysteine (Acetylcysteine 20%) 4 ml PO BID [facility] Last Admin: 06/08/16 17:26 Dose: 4 ml Albuterol/Ipratropium (Duoneb 3 Mg/0.5 Mg (3 Ml) Ud) 3 ml INH RQ6 [facility] Last Admin: 06/10/16 07:37 Dose: 3 ml Apixaban (Eliquis) 5 mg PO BID [facility] Last Admin: 06/09/16 18:26 Dose: 5 mg Aspirin (Aspirin Chewable) 81 mg PO DAILY [facility] Last Admin: 06/09/16 11:42 Dose: Not Given Calcium Acetate (Phoslo) 667 mg GT TIDCC [facility] Last Admin: 06/09/16 18:26 Dose: 667 mg Famotidine (Pepcid) 20 mg IVP DAILY [facility] Last Admin: 06/09/16 10:00 Dose: 20 mg Furosemide (Lasix) 40 mg IVP Q12 [facility] Last Admin: 06/09/16 21:29 Dose: 40 mg Propofol (Diprivan) 100 mls @ 4.817 mls/hr IV .[id number] PRN; Protocol; 5 MCG/KG/ MIN PRN Reason: TITRATE PER MD ORDER Last Titration: 06/09/16 18:00 Dose: 10.37 mcg/kg/min Midazolam HCl 100 mg/ Sodium (Chloride) 100 mls @ 3.09 mls/hr IV .Q24H [facility]; 0.02 MG/KG/HR PRN Reason: Protocol Last Admin: 06/10/16 06:24 Dose: 6 mls/hr Dexmedetomidine HCl 200 mcg/ (Sodium Chloride) 50 mls @ 7.74 mls/hr IVPB TITR PRN; Protocol; 0.2 MCG/KG/HR PRN Reason: Agitation Last Admin: 06/10/16 02:41 Dose: 7.74 mls/hr Insulin Detemir (Levemir) 10 unit SC HS [facility] Insulin Human Regular (Novolin R) 0 unit SC Q6 [facility] PRN Reason: Protocol Last Admin: 06/10/16 05:09 Dose: 6 unit Lorazepam (Ativan) 2 mg IVP Q6H PRN PRN Reason: Anxiety Last Admin: 06/08/16 22:08 Dose: 2 mg Methylprednisolone (Solu-Medrol) 20 mg IV Q12 [facility] Last Admin: 06/09/16 21:32 Dose: 20 mg - Labs Labs: 06/10/16 06:00 06/10/16 06:00 PT 13.9 SECONDS (9.7-12.2) H 05/27/16 09:38 INR 1.2 05/27/16 09:38 APTT 65 SECONDS (21-34) H 05/29/16 10:50 - Constitutional Appears: In Acute Distress, Chronically Ill - Head Exam Head Exam: ATRAUMATIC, NORMAL INSPECTION - Neck Exam Neck Exam: Normal Inspection. absent: Tenderness - Respiratory Exam Respiratory Exam: Rhonchi, Respiratory Distress - Cardiovascular Exam Cardiovascular Exam: REGULAR RHYTHM, +S1 - GI/Abdominal Exam GI & Abdominal Exam: Distended, Soft. absent: Tenderness - Extremities Exam Extremities Exam: Pedal Edema. absent: Tenderness - Neurological Exam Neurological Exam: Altered, Motor Sensory Deficit - Skin Skin Exam: Dry, Warm Assessment and Plan (1) Cellulitis Status: Acute (2) Chronic kidney disease, stage 3 (moderate) Status: Acute (3) Deep venous thrombosis of lower extremity Status: Acute (4) Proteinuria due to type 2 diabetes mellitus Status: Acute (5) Type 2 diabetes mellitus with diabetic nephropathy Status: Acute (6) Nephrotic syndrome Status: Acute (7) HENRIQUE (acute kidney injury) Status: Acute - Assessment and Plan (Free Text) Plan: Will repeat dialysis again for extra HD today Will need to revise dialysis cath- not working well Will continue lasix for now follow up humberto lorenz
[2016-06-10] MEDS: MethylPREDNISolone 40 mg Vial IV SCH ×2 (09:34→22:18)
--- NOTE | 2016-06-10 10:08 | RAD ---
HISTORY: intubated, fluid overload COMPARISON: No prior. FINDINGS: LUNGS: Multifocal hazy opacities throughout both lungs. PLEURA: Bilateral small to moderate-sized pleural effusions. CARDIOVASCULAR: Enlarged cardiomediastinal silhouette. OSSEOUS STRUCTURES: No significant abnormalities. VISUALIZED UPPER ABDOMEN: Upper abdomen is suboptimally evaluated. OTHER FINDINGS: Presumed right-sided vascular catheter with the tip overlying the projection of the SVC right atrial junction. ET tube with the distal tip above the tracheal bifurcation. Feeding tube seen with the distal tip not noted. IMPRESSION: Multifocal hazy opacities throughout both lungs which could represent edema. Small to moderate size pleural effusions bilaterally.
--- NOTE | 2016-06-10 10:55 | CP.PCM.PN ---
Subjective - Date & Time of Evaluation Date of Evaluation: 06/10/16 Time of Evaluation: 08:00 - Subjective Subjective: Patient remains intubated this morning. Now changed from propofol to versed and precedex after the patient tried to self extubate yesterday He had HD yesterday and from nephrology notes there is plan for more HD later sometime today. Hopefully the HD can remove enough fluids to help with the respiratory failure. As before, he is being follow for: Acute Respiratory Failure, Aspiration Pneumonia, Sepsis, Bacteremia, Right lower DVT+ (noncompliance on Xarelto), Antiphosolipid syndrome, Hx of COPD, acute on chronic kidney failure. Unable to review ROS given clinical state. Objective - Vital Signs/Intake and Output Vital Signs (last 24 hours): Temp Pulse Resp BP Pulse Ox 101 F H 72 7 L 170/70 H 94 L 06/10/16 05:52 06/10/16 06:01 06/10/16 06:01 06/10/16 09:31 06/10/16 06:01 Intake and Output: 06/10/16 06/10/16 06:59 18:59 Intake Total 666.6 Output Total 3180 Balance -2513.4 - Medications Medications: Current Medications Acetaminophen (Tylenol 325mg Tab) 650 mg PO Q6 PRN PRN Reason: Fever >100.4 F Last Admin: 06/10/16 04:52 Dose: 650 mg Acetylcysteine (Acetylcysteine 20%) 4 ml PO BID [facility] Last Admin: 06/08/16 17:26 Dose: 4 ml Albuterol/Ipratropium (Duoneb 3 Mg/0.5 Mg (3 Ml) Ud) 3 ml INH RQ6 [facility] Last Admin: 06/10/16 07:37 Dose: 3 ml Apixaban (Eliquis) 5 mg PO BID [facility] Last Admin: 06/10/16 09:34 Dose: 5 mg Aspirin (Aspirin Chewable) 81 mg PO DAILY [facility] Last Admin: 06/10/16 09:32 Dose: 81 mg Calcium Acetate (Phoslo) 667 mg GT TIDCC [facility] Last Admin: 06/10/16 09:32 Dose: 667 mg Famotidine (Pepcid) 20 mg IVP DAILY [facility] Last Admin: 06/10/16 09:31 Dose: 20 mg Furosemide (Lasix) 40 mg IVP Q12 [facility] Last Admin: 06/10/16 09:31 Dose: 40 mg Propofol (Diprivan) 100 mls @ 4.817 mls/hr IV .[id number] PRN; Protocol; 5 MCG/KG/ MIN PRN Reason: TITRATE PER MD ORDER Last Titration: 06/09/16 18:00 Dose: 10.37 mcg/kg/min Midazolam HCl 100 mg/ Sodium (Chloride) 100 mls @ 3.09 mls/hr IV .Q24H ANABELLA; 0.02 MG/KG/HR PRN Reason: Protocol Last Admin: 06/10/16 10:43 Dose: Not Given Dexmedetomidine HCl 200 mcg/ (Sodium Chloride) 50 mls @ 7.74 mls/hr IVPB TITR PRN; Protocol; 0.2 MCG/KG/HR PRN Reason: Agitation Last Admin: 06/10/16 10:49 Dose: 7.74 mls/hr Insulin Detemir (Levemir) 10 unit SC HS ANABELLA Insulin Human Regular (Novolin R) 0 unit SC Q6 A[facility]BELLA PRN Reason: Protocol Last Admin: 06/10/16 05:09 Dose: 6 unit Lorazepam (Ativan) 2 mg IVP Q6H PRN PRN Reason: Anxiety Last Admin: 06/08/16 22:08 Dose: 2 mg Methylprednisolone (Solu-Medrol) 20 mg IV Q12 [facility] Last Admin: 06/10/16 09:34 Dose: 20 mg - Labs Labs: 06/10/16 06:00 06/10/16 06:00 PT 13.9 SECONDS (9.7-12.2) H 05/27/16 09:38 INR 1.2 05/27/16 09:38 APTT 65 SECONDS (21-34) H 05/29/16 10:50 - Constitutional Appears: Chronically Ill - ENT Exam ENT Exam: Mucous Membranes Moist - Respiratory Exam Respiratory Exam: Decreased Breath Sounds, Rales, Rhonchi - Cardiovascular Exam Cardiovascular Exam: REGULAR RHYTHM - GI/Abdominal Exam GI & Abdominal Exam: Distended, Firm, Soft. absent: Guarding, Rigid, Tenderness - Skin Skin Exam: Pallor, Pallor Assessment and Plan - Assessment and Plan (Free Text) Assessment: 1) Acute respiratory failure 06/10: Patient will be having more HD today to see if this helps with respiration 06/09: This morning patient self extubated and had to be reintubated. The sedation medication was changed; will be having more HD today to see if this will help with a successful extubation. 06/08: Remanins intubated, had HD yesterday. Hopefully can be weaned of ventilator soon 06/07: Patient will be getting HD at some point later today to see if this helps with extubation 06/06: I updated family members with reguards to recent events. He may or may not have a PE or this could be aspiration pneumonia for example. He is on IV abx and also he continues to recieve anticoagulation. * Intubated on 06/04/16 for "Code Blue" called on 06/04/16, patient did not lose pulse * Possible aspiration pneumonia vs less pulmonary embolus despite being on anticoagulation for extensive DVT right lower extremity * Unable to perform CT angio PE control secondary to chronic kidney disease 2) Thrombosis of the R iliac and common femoral vein 06/06: As mentioned before the patient was intended to have thrombolysis of the lower extremity with the chronic DVT however this was not able to be done immediately due to renal function. As of now on anticogulation. 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 normal venous flow noted in the left common femoral vein * Prior to respiratory arrest on 06/04/16, patient was planned for thrombolysis for this upcoming Tuesday 06/06 * Heme-oncology (Dr. 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 Ortega) on board 3) Sepsis 06/10: Currently of off abx. WBC is 15 06/09: Currently abx are being stopped today and monitor how the patient does 06/08: WBC are 16 today, remains on IV abx 06/06: The most recent blood cultures have been negative for 48 hrs, remains on IV abx. WBC 14 today. No elevated temperatures today * Criteria admission: WBC: 43.8, HR>90, Cr> 2.0, platelets 103 and blood culture: Serattia from 05/25/16 * Now: Criteria: WBC: 25.5, Tmax: 102.1 bands>10, platelets normalized, Cr 2.0, chest xray for possible aspiration pneumonia pending new cultures * Urine culture: no growth * 05/27/16 Blood Venous: No growth After 5 days X2 * Infectious disease (Dr. Marsh) on board * Procalcitonin: 16.1 (05/26/16)--> 31.81 (05/27/16)-->ordered for new one * Aztreonam 1gram IV Q 12hours (active since 05/26/16) and Maxipime 1gram IV Q 12hours (active since 05/29/16) * Abd CT(05/28/16): bilateral inguinal lymphadenopathy, right greater than left. cirrhotic contour of liver. fatty atrophy of the pancreas, splenic atrophy w residula spleen, recitulation and edema seen in subcutanous soft tissues, cholelithiasis, consolidative changes at both lung bases which may represen underying infiltrate. * Ab US (05/28/16): enlarged liver with diffuse fatty infiltration, cholelithiasis, limited visualization of the pancreas * Echocardiogram (05/30/16): EF: 55-60% left ventricular ejection fraction is within normal range. left ventricular diastolic function is normal. trace to mild tricupsid regurgitation, PAP 35-45 mmgHG, mild pulmonary hypertension 4) Acute renal failure on Chronic Kidney disease with Nephrotic Syndrome 06/09: More HD today 06/08: S/P Hemodialysis 06/07: HD to be started some point * Nephrology (Dr. Rhoades) on board-->help appreciated * NS 125 cc/hr (started 06/04/16) * Has dialysis catheter port placed on 06/04/16 by ICU * Monitor potassium levels 5) History of COPD/asthma * Former smoker, quit 5 years ago * currently intubated secondary to respiratory arrest secondary to likely pnuemonia * Chest xray (06/04/16): in site ett and apparent in situ NGT as aboove in distal aspect of the NGT is poorly delinated, cardiomegaly, pulmonary vascular congestive changes with bilateral lower love alveolar-type infiltrates and bilateral effusions 6) History of Congestive Heart failure * 01/2016 ECHO- LV EF 60-65%, mild pulmonary HTN (see full report) * Echocardiogram (05/30/16): EF: 55-60% left ventricular ejection fraction is within normal range. left ventricular diastolic function is normal. trace to mild tricupsid regurgitation, PAP 35-45 mmgHG, mild pulmonary hypertension * off Crestor secondary to elevated BUN/Cr * off beta asmita secondary to acute respiratory failure; hx of copd se worsening bronchospasm * Aspirin 81mg PO daily 7)Diabetes Mellitus * Accuchecks Q6 hours * Novolin sliding scale subq 6hours * Diabetic source 20cc/hr via OGT * Prior a1c shows uncontrolled 8) History of Hypertension * Off antihypertensives 9) Hx of Nonstemi * January 2016 hospitalization * No cardiac cath * Hx of CHF 10) Prophylactic measures - SCDs contraindicated due to DVT - Eliquis 5mg PO BID for DVT Right LE - Pepcid 20mg PO daily for GI ppx - Tube feedings
--- NOTE | 2016-06-10 15:02 | CP.CCUPN ---
CCU Subjective - Physician Review Events Since Last Encounter (Free Text): 06/10/16 15:00 Patient was seen and examined at bedside. He is intubated and sedated. Patient had a fever of 101.4 overnight. Patient continues to have a fever of 101F. Blood pressure remains elevated 169/83. Patient remains on sedation. Versed drips maintained. Yesterday, 2900 ml fluid removed via HD. ROS could not be obtained at this time due to patient's clinical status. CCU Objective - Vital Signs / Intake & Output Vital Signs (Last 4 hours): Vital Signs Temp Pulse Resp BP Pulse Ox 06/10/16 12:00 100.2 F H 95 H 24 130/73 96 Intake and Output (Last 8hrs): Intake & Output 06/10/16 06/10/16 06/10/16 06:59 14:59 22:59 Intake Total 440.4 315.8 Output Total 2100 1750 Balance -1659.6 -1434.2 Weight 321 lb 10.471 oz Intake: Intake, IV Amount 110.4 75.8 Left Femoral 48 29 left antecubital 62.4 46.8 Tube Feeding 270 240 Other 60 Output: Urine 2100 1750 Urethral (Campbell) 2100 1750 - Physical Exam Head: Positive for: Atraumatic, Normocephalic Pupils: Positive for: PERRL Conjunctiva: Positive for: Normal Mouth: Positive for: Moist Mucous Membranes Respiratory/Chest: Positive for: Clear to Auscultation Cardiovascular: Positive for: Regular Rate and Rhythm Abdomen: Positive for: Normal Bowel Sounds. Negative for: Tenderness, Distention Upper Extremity: Positive for: Edema Lower Extremity: Positive for: Edema, Swelling, Erythema Skin: Positive for: Warm, Dry - Medications Active Medications: Active Medications Generic Name Dose Route Start Last Admin Trade Name Freq PRN Reason Stop Dose Admin Acetaminophen 650 mg 06/04/16 00:38 06/10/16 04:52 Tylenol 325mg Tab PO 650 mg Q6 PRN Administration Fever >100.4 F Acetylcysteine 4 ml 06/04/16 00:01 06/08/16 17:26 Acetylcysteine 20% PO 4 ml BID ANABELLA Administration Albuterol/Ipratropium 3 ml 06/05/16 20:00 06/10/16 13:29 Duoneb 3 Mg/0.5 Mg (3 Ml) Ud INH 3 ml RQ6 ANABELLA Administration Apixaban 5 mg 06/10/16 18:00 Eliquis PO BID ANABELLA Aspirin 81 mg 05/26/16 10:00 06/10/16 09:32 Aspirin Chewable PO 81 mg DAILY ANABELLA Administration Calcium Acetate 667 mg 06/06/16 12:00 06/10/16 12:33 Phoslo GT 667 mg TIDCC ANABELLA Administration Famotidine 20 mg 06/04/16 11:45 06/10/16 09:31 Pepcid IVP 20 mg DAILY ANABELLA Administration Furosemide 40 mg 06/08/16 13:15 06/10/16 09:31 Lasix IVP 40 mg Q12 ANABELLA Administration Midazolam HCl 100 mg/ Sodium 100 mls @ 3.09 mls/hr 06/09/16 10:00 06/10/16 12: 28 Chloride IV 0.01 mg/kg/hr .Q24H ANABELAL Titration Protocol 0.02 MG/KG/HR Dexmedetomidine HCl 200 mcg/ 50 mls @ 7.74 mls/hr 06/09/16 10:18 06/10/16 10:49 Sodium Chloride IVPB 7.74 mls/hr TITR PRN Administration Agitation Protocol 0.2 MCG/KG/HR Insulin Detemir 10 unit 06/10/16 22:00 Levemir SC HS [facility] Insulin Human Regular 0 unit 06/07/16 12:00 06/10/16 12:33 Novolin R SC 6 unit Q6 ANABELLA Administration Protocol Lorazepam 2 mg 06/06/16 14:53 06/08/16 22:08 Ativan IVP 2 mg Q6H PRN Administration Anxiety Methylprednisolone 20 mg 06/07/16 10:09 06/10/16 09:34 Solu-Medrol IV 20 mg Q12 ANABELLA Administration - Patient Studies Lab Studies: Microbiology Studies 06/04/16 16:47 Blood Culture - Final Blood-Thru Central Line NO GROWTH AFTER 5 DAYS Gram Stain - Final TEST NOT PERFORMED 06/04/16 16:47 Blood Culture - Final Blood-Thru Central Line NO GROWTH AFTER 5 DAYS Gram Stain - Final TEST NOT PERFORMED Lab Studies 06/10/16 06/10/16 06/10/16 Range/Units 11:25 07:14 06:00 WBC 15.3 H (4.8-10.8) K/uL RBC 4.71 (4.40-5.90) Mil/uL Hgb 13.5 (12.0-18.0) g/dL Hct 40.9 (35.0-51.0) % MCV 86.9 (80.0-94.0) fL MCH 28.8 (27.0-31.0) pg MCHC 33.1 (33.0-37.0) g/dL RDW 16.3 H (11.5-14.5) % Plt Count 156 D (130-400) K/uL MPV 10.5 (7.2-11.7) fL Neut % (Auto) 67.0 (50.0-75.0) % Lymph % (Auto) 15.1 L (20.0-40.0) % [place] % (Auto) 15.1 H (0.0-10.0) % Eos % (Auto) 2.6 (0.0-4.0) % Baso % (Auto) 0.2 (0.0-2.0) % Neut # 10.2 H (1.8-7.0) K/uL Lymph # 2.3 (1.0-4.3) K/uL [place] # 2.3 H (0.0-0.8) K/uL Eos # 0.4 (0.0-0.7) K/uL Baso # 0.0 (0.0-0.2) K/uL Puncture Site pCO2 (35-45) mm/Hg pO2 (80-100) mm/Hg HCO3 (21-28) mmol/L ABG pH (7.35-7.45) ABG Total CO2 (22-28) mmol/L ABG O2 Saturation (95-98) % ABG Base Excess (-2.0-3.0) mmol/L ABG Hemoglobin (11.7-17.4) g/dL ABG Carboxyhemoglobin (0.5-1.5) % POC ABG HHb (Measured) (0.0-5.0) % ABG Methemoglobin (0.0-3.0) % Philippe Test A-a O2 Difference mm/Hg Respiratory Index Hgb O2 Saturation (95.0-98.0) % Mechanical Rate FiO2 % Tidal Volume PEEP Sodium 142 (132-148) mmol/L Potassium 4.5 (3.6-5.2) mmol/L Chloride 103 (98-107) mmol/L Carbon Dioxide 29 (22-30) mmol/L Anion Gap 15 (10-20) BUN 50 H (9-20) mg/dL Creatinine 1.3 (0.8-1.5) MG/DL Est GFR ( Amer) > 60 Est GFR (Non-Af Amer) 59 POC Glucose (mg/dL) 237 H 247 H (65-110) mg/dL Random Glucose 251 H (75-110) mg/dL Calcium 8.2 L (8.6-10.4) mg/dl Phosphorus 3.9 (2.5-4.5) mg/dL Magnesium 1.7 (1.6-2.3) mg/dL Total Bilirubin 0.8 (0.2-1.3) mg/dL AST 35 (17-59) U/L ALT 48 (21-72) U/L Alkaline Phosphatase 277 H (38-126) U/L Total Protein 5.8 L (6.3-8.3) g/dL Albumin 2.6 L (3.5-5.0) g/dL Globulin 3.2 (2.2-3.9) gm/dL Albumin/Globulin Ratio 0.8 L (1.0-2.1) 06/10/16 06/10/16 06/10/16 Range/Units 04:48 04:15 00:33 WBC (4.8-10.8) K/uL RBC (4.40-5.90) Mil/uL Hgb (12.0-18.0) g/dL Hct (35.0-51.0) % MCV (80.0-94.0) fL MCH (27.0-31.0) pg MCHC (33.0-37.0) g/dL RDW (11.5-14.5) % Plt Count (130-400) K/uL MPV (7.2-11.7) fL Neut % (Auto) (50.0-75.0) % Lymph % (Auto) (20.0-40.0) % [place] % (Auto) (0.0-10.0) % Eos % (Auto) (0.0-4.0) % Baso % (Auto) (0.0-2.0) % Neut # (1.8-7.0) K/uL Lymph # (1.0-4.3) K/uL [place] # (0.0-0.8) K/uL Eos # (0.0-0.7) K/uL Baso # (0.0-0.2) K/uL Puncture Site Rr pCO2 48 H (35-45) mm/Hg pO2 75 L (80-100) mm/Hg HCO3 28.9 H (21-28) mmol/L ABG pH 7.42 (7.35-7.45) ABG Total CO2 32.6 H (22-28) mmol/L ABG O2 Saturation 96.8 (95-98) % ABG Base Excess 5.3 H (-2.0-3.0) mmol/L ABG Hemoglobin 16.5 (11.7-17.4) g/dL ABG Carboxyhemoglobin 1.9 H (0.5-1.5) % POC ABG HHb (Measured) 3.1 (0.0-5.0) % ABG Methemoglobin 1.1 (0.0-3.0) % Philippe Test Pos A-a O2 Difference 293.0 mm/Hg Respiratory Index 3.9 Hgb O2 Saturation 93.9 L (95.0-98.0) % Mechanical Rate 24 FiO2 60.0 % Tidal Volume 500 PEEP 6 Sodium (132-148) mmol/L Potassium (3.6-5.2) mmol/L Chloride (98-107) mmol/L Carbon Dioxide (22-30) mmol/L Anion Gap (10-20) BUN (9-20) mg/dL Creatinine (0.8-1.5) MG/DL Est GFR ( Amer) Est GFR (Non-Af Amer) POC Glucose (mg/dL) 262 H 263 H (65-110) mg/dL Random Glucose (75-110) mg/dL Calcium (8.6-10.4) mg/dl Phosphorus (2.5-4.5) mg/dL Magnesium (1.6-2.3) mg/dL Total Bilirubin (0.2-1.3) mg/dL AST (17-59) U/L ALT (21-72) U/L Alkaline Phosphatase (38-126) U/L Total Protein (6.3-8.3) g/dL Albumin (3.5-5.0) g/dL Globulin (2.2-3.9) gm/dL Albumin/Globulin Ratio (1.0-2.1) / Range/Units 18:13 WBC (4.8-10.8) K/uL RBC (4.40-5.90) Mil/uL Hgb (12.0-18.0) g/dL Hct (35.0-51.0) % MCV (80.0-94.0) fL MCH (27.0-31.0) pg MCHC (33.0-37.0) g/dL RDW (11.5-14.5) % Plt Count (130-400) K/uL MPV (7.2-11.7) fL Neut % (Auto) (50.0-75.0) % Lymph % (Auto) (20.0-40.0) % [place] % (Auto) (0.0-10.0) % Eos % (Auto) (0.0-4.0) % Baso % (Auto) (0.0-2.0) % Neut # (1.8-7.0) K/uL Lymph # (1.0-4.3) K/uL [place] # (0.0-0.8) K/uL Eos # (0.0-0.7) K/uL Baso # (0.0-0.2) K/uL Puncture Site pCO2 (35-45) mm/Hg pO2 (80-100) mm/Hg HCO3 (21-28) mmol/L ABG pH (7.35-7.45) ABG Total CO2 (22-28) mmol/L ABG O2 Saturation (95-98) % ABG Base Excess (-2.0-3.0) mmol/L ABG Hemoglobin (11.7-17.4) g/dL ABG Carboxyhemoglobin (0.5-1.5) % POC ABG HHb (Measured) (0.0-5.0) % ABG Methemoglobin (0.0-3.0) % Philippe Test A-a O2 Difference mm/Hg Respiratory Index Hgb O2 Saturation (95.0-98.0) % Mechanical Rate FiO2 % Tidal Volume PEEP Sodium (132-148) mmol/L Potassium (3.6-5.2) mmol/L Chloride (98-107) mmol/L Carbon Dioxide (22-30) mmol/L Anion Gap (10-20) BUN (9-20) mg/dL Creatinine (0.8-1.5) MG/DL Est GFR ( Amer) Est GFR (Non-Af Amer) POC Glucose (mg/dL) 221 H (65-110) mg/dL Random Glucose (75-110) mg/dL Calcium (8.6-10.4) mg/dl Phosphorus (2.5-4.5) mg/dL Magnesium (1.6-2.3) mg/dL Total Bilirubin (0.2-1.3) mg/dL AST (17-59) U/L ALT (21-72) U/L Alkaline Phosphatase (38-126) U/L Total Protein (6.3-8.3) g/dL Albumin (3.5-5.0) g/dL Globulin (2.2-3.9) gm/dL Albumin/Globulin Ratio (1.0-2.1) Laboratory Results - last 24 hr 06/09/16 06/10/16 06/10/16 18:13 00:33 04:15 WBC RBC Hgb Hct MCV MCH MCHC RDW Plt Count MPV Neut % (Auto) Lymph % (Auto) [place] % (Auto) Eos % (Auto) Baso % (Auto) Neut # Lymph # [place] # Eos # Baso # Puncture Site Rr pCO2 48 H pO2 75 L HCO3 28.9 H ABG pH 7.42 ABG Total CO2 32.6 H ABG O2 Saturation 96.8 ABG Base Excess 5.3 H ABG Hemoglobin 16.5 ABG Carboxyhemoglobin 1.9 H POC ABG HHb (Measured) 3.1 ABG Methemoglobin 1.1 Philippe Test Pos A-a O2 Difference 293.0 Respiratory Index 3.9 Hgb O2 Saturation 93.9 L Mechanical Rate 24 FiO2 60.0 Tidal Volume 500 PEEP 6 Sodium Potassium Chloride Carbon Dioxide Anion Gap BUN Creatinine Est GFR ( Amer) Est GFR (Non-Af Amer) POC Glucose (mg/dL) 221 H 263 H Random Glucose Calcium Phosphorus Magnesium Total Bilirubin AST ALT Alkaline Phosphatase Total Protein Albumin Globulin Albumin/Globulin Ratio 06/10/16 06/10/16 06/10/16 04:48 06:00 07:14 WBC 15.3 H RBC 4.71 Hgb 13.5 Hct 40.9 MCV 86.9 MCH 28.8 MCHC 33.1 RDW 16.3 H Plt Count 156 D MPV 10.5 Neut % (Auto) 67.0 Lymph % (Auto) 15.1 L [place] % (Auto) 15.1 H Eos % (Auto) 2.6 Baso % (Auto) 0.2 Neut # 10.2 H Lymph # 2.3 [place] # 2.3 H Eos # 0.4 Baso # 0.0 Puncture Site pCO2 pO2 HCO3 ABG pH ABG Total CO2 ABG O2 Saturation ABG Base Excess ABG Hemoglobin ABG Carboxyhemoglobin POC ABG HHb (Measured) ABG Methemoglobin Philippe Test A-a O2 Difference Respiratory Index Hgb O2 Saturation Mechanical Rate FiO2 Tidal Volume PEEP Sodium 142 Potassium 4.5 Chloride 103 Carbon Dioxide 29 Anion Gap 15 BUN 50 H Creatinine 1.3 Est GFR ( Amer) > 60 Est GFR (Non-Af Amer) 59 POC Glucose (mg/dL) 262 H 247 H Random Glucose 251 H Calcium 8.2 L Phosphorus 3.9 Magnesium 1.7 Total Bilirubin 0.8 AST 35 ALT 48 Alkaline Phosphatase 277 H Total Protein 5.8 L Albumin 2.6 L Globulin 3.2 Albumin/Globulin Ratio 0.8 L 06/10/16 11:25 WBC RBC Hgb Hct MCV MCH MCHC RDW Plt Count MPV Neut % (Auto) Lymph % (Auto) [place] % (Auto) Eos % (Auto) Baso % (Auto) Neut # Lymph # [place] # Eos # Baso # Puncture Site pCO2 pO2 HCO3 ABG pH ABG Total CO2 ABG O2 Saturation ABG Base Excess ABG Hemoglobin ABG Carboxyhemoglobin POC ABG HHb (Measured) ABG Methemoglobin Philippe Test A-a O2 Difference Respiratory Index Hgb O2 Saturation Mechanical Rate FiO2 Tidal Volume PEEP Sodium Potassium Chloride Carbon Dioxide Anion Gap BUN Creatinine Est GFR ( Amer) Est GFR (Non-Af Amer) POC Glucose (mg/dL) 237 H Random Glucose Calcium Phosphorus Magnesium Total Bilirubin AST ALT Alkaline Phosphatase Total Protein Albumin Globulin Albumin/Globulin Ratio Fingerstick Blood Sugar Results: 237 Review of Systems - Review of Systems Systems not reviewed;Unavailable: Intubated Critical Care Progress Note - Ventilator Checklist Head of Bed 30 Degrees: Yes Daily Sedation Vacation: Yes Daily Assessment of Readiness to Wean: Yes Daily Spontaneous Breathing Trial: Yes PUD Prophalyxis: Yes DVT Prophylaxis: Yes Assessment/Plan (1) Acute respiratory failure Assessment and plan: 45 year old male with PMHx of COPD, asthma, DM, HN, DVT in RLE, NSTEMI in 2015, gallstones, liver cirrhosis, and CKD presents with complaint of aright LE pain and swelling. Pt recently was admitted to [facility] and found to have a DVT in his right lower extremity and discharged on Xarelto. Repeat venous doppler is consistent with extensive right femoral and iliac vein DVT. This morning Code Omar was called on due to pt. being unresponsive. Chest compressions were started. Patient intubated and transferred to intensive care unit. Neuro: Intubated and sedated Dexmedetomidine 200 mcg 50 cc @ 7.74 cc/hr IVPB TITR PRN (0.2 mcg/kg/hr) Lorazepam 2 mg IVP Q6H PRN anxiety Midazolam 100 mg 100 cc @3.09 cc/hr IV Q24H CV: Hemodynamically stable Hx of HTN (off antihypertensives), NSTEMI (01/2016), CHF 01/2016 ECHO: LVEF 60-65% 05/2016 ECHO: LVEF 55-60%, mild pulmonary HTN Furosemide 40 mg IVP Q12 ANABELLA ASA 81mg PO daily Pulm: Hx of COPD and Asthma Aspiration PNA obesity hypoventilation and JOVANI Former smoker (quit 5 yrs ago) Intubated and sedated - Acute respiratory failure with hypercarbia and hypoxia requiring intubation (06/04/16) Vent Settings: 06/09: FiO2 60% PEEP 6 RR 24 VT 500 06/06: FiO2 60% PEEP 9 RR 24 VT 500 06/05: FiO2 100% PEEP 6 RR 20 VT 500 AB/24 PH 7.42, CO2 48, O2 75, HCO3 28.9 06/09 pH 7.35, CO2 50, O2 79, HCO3 25.5 06/08 pH 7.35, CO2 46, O2 113, HCO3 24.5 06/07 pH 7.30, CO2 48, O2 96, HCO3 22.5 Imagin/24 CXR: multifocal hazy opacities throughout both lungs, which could represent edema. Small to moderate size bilateral pleural effusions. 06/09 CXR: cardiomegaly with pulmonary vascular congestive changes. Bilateral alveolar infiltrates and bilateral effusions 06/07 CXR: In situ ETT tip at 5.75 cm above fish. distal aspect of NGT poorly seen. Cardiomegaly with persistent bilateral infiltrates and bilateral effusions likely due to pulmonary vascular congestion however bilateral pneumonia not excluded. 06/06 CXR: ETT tip at 4.26 cm above fish. Mild central pulmonary vascular congestive changes with bilateral lower lobe alveolar-type infiltrates and bilateral effusions. Duoneb 3mg/0.5 Mg Solumedrol 40mg IV Q12h Endo: Type 2 Diabetes Mellitus - uncontrolled Hgb A1C: 11.8 Accucheck Q6 hours Novolin SS SC Q6H Levemir 10 units SC HS ANABELLA GI: Hx of gallstones, liver cirrhosis ALP 277 (335>282>277) Albumin 2.6 (2.5>2.4>2.6) NGT - Tube feeds - Diabetisource 40 cc/hr via NGT Daily CMP Acetylcysteine 4 cc PO BID [facility] : 1383.03/6704 = -5321.9 Monitor I/Os Campbell inserted Maintain Campbell care Calcium Acetate 667 mg GT TIDCC ANABELLA Nephro: Acute on chronic renal failure CKD Nephrotic syndrome BUN/Cr: 50/1.3 Nephro Consult - Dr. Rhoades - repeat dialysis again for extra HD today. Revise dialysis cath (not working well), continue lasix, follow electrolytes closely. HD received 06/07, scheduled for HD 06/10 Monitor I/Os Furosemide 40 mg IVP !12 IVF: NS 125cc/hr MSK: PT/OT evaluation and treatment when clinically stable Heme: RLE DVT Thrombosis of the R iliac and common femoral vein Leukocytosis (WBC 14.8, 17% bands) Coagulopathy - on anticoagulation 05/25/16 (Venous US LE b/l): no evidence of hemodynamically significant insufficiency in the RLE. 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 Normal venous flow noted in the L common femoral vein. Patient was planned for thrombolysis for 06/06 - postponed per surgical team 06/05 Heme-onc consult - Dr. 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 Marsh - Empiric coverage with aztreonam and cefepime continue dual coverage secondary to elevated BMI and renal insufficiency. Acetaminophen 650 mg PO Q6 PRN fever >100.4 Prophylaxis: DVT RLE: Eliquis 5mg PO BID, SCDs contraindicated GI: Pepcid 20mg PO daily Code status - full code Crtical Care Time spent 35 minutes Multi-disciplinary rounds were performed with house staff, nursing, speech therapy, respiratory therapy, pharmacy and nutrition with integrated input from the primary team/attending and other consulting services. The documented time is cumulative and includes review of patient data/exams/labs/chart review and examination of the patient on rounds and throughout the day; time is exclusive of any procedures or teaching time. Current Visit: Yes Status: Acute
--- NOTE | 2016-06-10 15:39 | PN ---
DATE: 06/10/2016 PHYSICAL EXAMINATION: VITAL SIGNS: Temperature is 101 this morning and now it is 98.3, blood pressure is 152/72, respirati ons are on the vent. He remains intubated. He was just seen by Dr. Ortega. His heart rate is 76. GENERAL: Remains intubated. HEENT: Head is atraumatic. NECK: Supple. LUNGS: Clear. Decreased breath sounds bilaterally. HEART: S1, S2 regular. ABDOMEN: Soft, nontender. He is obese. EXTREMITIES: Right leg and right thigh remains stable at this time with . He does have a big t david DVT extending right the thigh to the leg. He has some deficiency. He is being followed by hematology oncologist. LABORATORY DATA: His white count was 14.7, increased to 15.3, hemoglobin 13.5, hematocrit 40.9, plat elet count is 156, has dropped. Sodium is 142, potassium 4.5, chloride 103, BUN is 50, creatinine is 1.3. Micro-douglas, we had done cultures. Everything was negative except for when he came in. He cam e in with blood cultures having serratia which was adequately treated, but at this time, since he is having fever and he is on dialysis also, so he has a catheter, and he has a right IJ present. X-ray today shows multifocal hazy opacities throughout both lungs, which could represent edema, small to mo derate-sized pleural effusion bilaterally. Will repeat the septic workup again. I would put him back on Maxipime. He was on vancomycin 1 dose, which was given on the . He is NOT ALLERGIC TO ANY MEDICINE EXCEPT EGGS. At this time, we will p ut him on Avelox and get sputum cultures and will follow. I also see his catheter is having trouble, as they have been anticoagulating it. It could be the source of trouble and increasing fever, and i f it is not functioning right, needs to be addressed with renal. We will follow. Joshua Marsh MD cc: [id number] TT: 06/10/2016 15:39:06 Confirmation # [id number] Dictation # [id number] rn
[2016-06-10] MEDS: Cefepime IV 1 gm in Dextrose 50 ML IVPB SCH (17:44)
[2016-06-10] MEDS: Acetylcysteine 20% Inhal Soln (4ml) PO SCH ×2 (19:29)
[2016-06-10] MEDS ORDERED: Insulin Detemir 100 units/ml Vial (Levemir) SC SCH (22:00)
[2016-06-11] MEDS: Dexmedetomidine Hydrochloride 200 MCG in Sodium Chloride 0.9% 48 ML IVPB PRN ×3 (00:20→21:00)
[2016-06-11] MEDS: (Novolin R) Insulin Human Regular 100 units/ml vial SC SCH ×4 (01:00→18:27)
[2016-06-11] MEDS: Albuterol-Ipratrop 3 mg / 0.5 (3 ml) UD INH SCH ×4 (01:10→19:14)
[2016-06-11 05:14] LABS: ABG ALLEN TEST POS; ARTERIAL BLOOD HGB O2 SAT 95.8 % (95.0-98.0); ATERIAL BLOOD GAS PEEP 8; DRAW SITE RR; HHB 1.1 % (0.0-5.0); METHEMOGLOBIN 1.1 % (0.0-3.0)
[2016-06-11 06:21] LABS: BASO # 0.1 K/uL (0.0-0.2); BASO % 0.7 % (0.0-2.0); EOS # 0.2 K/uL (0.0-0.7); EOS % 1.4 % (0.0-4.0); HEMATOCRIT 41.7 % (35.0-51.0); LYMPH # 1.9 K/uL (1.0-4.3); MEAN CELL VOLUME 87.9 fL (80.0-94.0); MEAN CORPUSCULAR HEMOGLOBIN 27.8 pg (27.0-31.0); MEAN CORPUSCULAR HGB CONC 31.6 g/dL (33.0-37.0); MEAN PLATELET VOLUME 11.5 fL (7.2-11.7); MONO # 1.3 K/uL (0.0-0.8); MONO % 7.8 % (0.0-10.0); NRBC % 0.2 % (0.0-2.0); RED CELL DISTRIBUTION WIDTH 16.4 % (11.5-14.5); WHITE BLOOD COUNT 17.3 K/uL (4.8-10.8)
[2016-06-11] MEDS: Cefepime IV 1 gm in Dextrose 50 ML IVPB SCH (06:30)
[2016-06-11 06:32] LABS: CHLORIDE 101 mmol/L (98-107)
[2016-06-11 06:33] LABS: POTASSIUM 4.4 mmol/L (3.6-5.2); SODIUM 140 mmol/L (132-148)
[2016-06-11 06:35] LABS: ALB/GLOB RATIO 0.7 (1.0-2.1); ALKALINE PHOSPHATASE 258 U/L (38-126); ALT/SGPT 67 U/L (21-72); AST/SGOT 52 U/L (17-59); BILIRUBIN,TOTAL 0.9 mg/dL (0.2-1.3); BLOOD UREA NITROGEN 47 mg/dL (9-20); CARBON DIOXIDE 32 mmol/L (22-30); GFR AFRICAN-AMERICAN > 60; TOTAL PROTEIN 5.7 g/dL (6.3-8.3)
[2016-06-11 06:36] LABS: CALCIUM 7.7 mg/dl (8.6-10.4); GLUCOSE,RANDOM 325 mg/dL (75-110); MAGNESIUM 1.6 mg/dL (1.6-2.3); PHOSPHOROUS 3.8 mg/dL (2.5-4.5)
--- NOTE | 2016-06-11 08:44 | CP.PCM.PN ---
Subjective - Date & Time of Evaluation Date of Evaluation: 06/11/16 Time of Evaluation: 08:15 - Subjective Subjective: intubated and sedated unable to obtain ROS due to clinical status excellent u/o, over 5 liters at bedside Objective - Vital Signs/Intake and Output Vital Signs (last 24 hours): Temp Pulse Resp BP Pulse Ox 101 F H 83 22 144/79 100 06/11/16 08:15 06/11/16 07:14 06/11/16 07:14 06/11/16 07:14 06/11/16 05:00 Intake and Output: 06/11/16 06/11/16 06:59 18:59 Intake Total 899.6 70.8 Output Total 2150 Balance -1250.4 70.8 - Medications Medications: Current Medications Acetaminophen (Tylenol 325mg Tab) 650 mg PO Q6 PRN PRN Reason: Fever >100.4 F Last Admin: 06/11/16 08:15 Dose: 650 mg Acetylcysteine (Acetylcysteine 20%) 4 ml PO BID [facility] Last Admin: 06/10/16 19:29 Dose: 4 ml Albuterol/Ipratropium (Duoneb 3 Mg/0.5 Mg (3 Ml) Ud) 3 ml INH RQ6 ANABELLA Last Admin: 06/11/16 07:33 Dose: 3 ml Apixaban (Eliquis) 5 mg PO BID ANABELLA Last Admin: 06/10/16 17:54 Dose: 5 mg Aspirin (Aspirin Chewable) 81 mg PO DAILY ANABELLA Last Admin: 06/10/16 09:32 Dose: 81 mg Calcium Acetate (Phoslo) 667 mg GT TIDCC ANABELLA Last Admin: 06/11/16 08:15 Dose: 667 mg Famotidine (Pepcid) 20 mg IVP DAILY ANABELLA Last Admin: 06/10/16 09:31 Dose: 20 mg Furosemide (Lasix) 40 mg IVP Q12 ANABELLA Last Admin: 06/10/16 22:06 Dose: 40 mg Midazolam HCl 100 mg/ Sodium (Chloride) 100 mls @ 3.09 mls/hr IV .Q24H ANABELLA; 0.02 MG/KG/HR PRN Reason: Protocol Last Titration: 06/10/16 12:28 Dose: 0.01 mg/kg/hr Dexmedetomidine HCl 200 mcg/ (Sodium Chloride) 50 mls @ 7.74 mls/hr IVPB TITR PRN; Protocol; 0.2 MCG/KG/HR PRN Reason: Agitation Last Admin: 06/11/16 08:16 Dose: 7.74 mls/hr Cefepime HCl (Maxipime Iv 1 Gm Premix) 50 mls @ 100 mls/hr IVPB Q12H ANABELLA Last Admin: 06/11/16 06:30 Dose: 100 mls/hr Insulin Detemir (Levemir) 10 unit SC HS ANABELLA Last Admin: 06/10/16 22:05 Dose: 10 unit Insulin Human Regular (Novolin R) 0 unit SC Q6 ANABELLA PRN Reason: Protocol Last Admin: 06/11/16 06:50 Dose: 1 unit Lorazepam (Ativan) 2 mg IVP Q6H PRN PRN Reason: Anxiety Last Admin: 06/08/16 22:08 Dose: 2 mg Methylprednisolone (Solu-Medrol) 20 mg IV Q12 [facility] Last Admin: 06/10/16 22:18 Dose: 20 mg - Labs Labs: 06/11/16 06:11 06/11/16 06:15 PT 13.9 SECONDS (9.7-12.2) H 05/27/16 09:38 INR 1.2 05/27/16 09:38 APTT 65 SECONDS (21-34) H 05/29/16 10:50 - Constitutional Appears: Non-toxic - Head Exam Head Exam: ATRAUMATIC, NORMAL INSPECTION - ENT Exam ENT Exam: Mucous Membranes Moist Additional comments: intubated - Respiratory Exam Respiratory Exam: NORMAL BREATHING PATTERN. absent: Accessory Muscle Use - Cardiovascular Exam Cardiovascular Exam: REGULAR RHYTHM. absent: Rubs - GI/Abdominal Exam GI & Abdominal Exam: Soft. absent: Tenderness - Extremities Exam Additional comments: right leg in cast - Neurological Exam Neurological Exam: absent: Alert, Oriented x3 Assessment and Plan - Assessment and Plan (Free Text) Assessment: jeff due to cardiac arrest, now with excellent u/o and normal labs appears to be in polyuric phase of atn hold on further HD for time being underlying nephrotic syndrome due to diabetes right leg dvt respiratory failure
--- NOTE | 2016-06-11 08:59 | CP.PCM.PN ---
Subjective - Date & Time of Evaluation Date of Evaluation: 06/11/16 Time of Evaluation: 08:59 - Subjective Subjective: issues of access reviewed with icu staff in view of plan to hold HD will defer catheter exchange Objective - Vital Signs/Intake and Output Vital Signs (last 24 hours): Temp Pulse Resp BP Pulse Ox 101 F H 83 22 144/79 100 06/11/16 08:15 06/11/16 07:14 06/11/16 07:14 06/11/16 07:14 06/11/16 05:00 Intake and Output: 06/11/16 06/11/16 06:59 18:59 Intake Total 899.6 70.8 Output Total 2150 Balance -1250.4 70.8 - Medications Medications: Current Medications Acetaminophen (Tylenol 325mg Tab) 650 mg PO Q6 PRN PRN Reason: Fever >100.4 F Last Admin: 06/11/16 08:15 Dose: 650 mg Acetylcysteine (Acetylcysteine 20%) 4 ml PO BID [facility] Last Admin: 06/10/16 19:29 Dose: 4 ml Albuterol/Ipratropium (Duoneb 3 Mg/0.5 Mg (3 Ml) Ud) 3 ml INH RQ6 ANABELLA Last Admin: 06/11/16 07:33 Dose: 3 ml Apixaban (Eliquis) 5 mg PO BID [facility] Last Admin: 06/10/16 17:54 Dose: 5 mg Aspirin (Aspirin Chewable) 81 mg PO DAILY ANABELLA Last Admin: 06/10/16 09:32 Dose: 81 mg Calcium Acetate (Phoslo) 667 mg GT TIDCC [facility] Last Admin: 06/11/16 08:15 Dose: 667 mg Famotidine (Pepcid) 20 mg IVP DAILY [facility] Last Admin: 06/10/16 09:31 Dose: 20 mg Furosemide (Lasix) 40 mg IVP Q12 ANABELLA Last Admin: 06/10/16 22:06 Dose: 40 mg Midazolam HCl 100 mg/ Sodium (Chloride) 100 mls @ 3.09 mls/hr IV .Q24H ANABELLA; 0.02 MG/KG/HR PRN Reason: Protocol Last Titration: 06/10/16 12:28 Dose: 0.01 mg/kg/hr Dexmedetomidine HCl 200 mcg/ (Sodium Chloride) 50 mls @ 7.74 mls/hr IVPB TITR PRN; Protocol; 0.2 MCG/KG/HR PRN Reason: Agitation Last Admin: 06/11/16 08:16 Dose: 7.74 mls/hr Cefepime HCl (Maxipime Iv 1 Gm Premix) 50 mls @ 100 mls/hr IVPB Q12H ANABELLA Last Admin: 06/11/16 06:30 Dose: 100 mls/hr Insulin Detemir (Levemir) 10 unit SC HS ANABELLA Last Admin: 06/10/16 22:05 Dose: 10 unit Insulin Human Regular (Novolin R) 0 unit SC Q6 ANABELLA PRN Reason: Protocol Last Admin: 06/11/16 06:50 Dose: 1 unit Lorazepam (Ativan) 2 mg IVP Q6H PRN PRN Reason: Anxiety Last Admin: 06/08/16 22:08 Dose: 2 mg Methylprednisolone (Solu-Medrol) 20 mg IV Q12 ANABELLA Last Admin: 06/10/16 22:18 Dose: 20 mg - Labs Labs: 06/11/16 06:11 06/11/16 06:15 PT 13.9 SECONDS (9.7-12.2) H 05/27/16 09:38 INR 1.2 05/27/16 09:38 APTT 65 SECONDS (21-34) H 05/29/16 10:50
[2016-06-11] MEDS: MethylPREDNISolone 40 mg Vial IV SCH (09:22)
[2016-06-11] MEDS: Acetylcysteine 20% Inhal Soln (4ml) PO SCH ×2 (09:22→18:28)
[2016-06-11] MEDS: Midazolam 50 mg/10 ml 100 MG in Sodium Chloride 0.9% 80 ML IV SCH (09:27)
--- NOTE | 2016-06-11 11:28 | RAD ---
HISTORY: intubated COMPARISON: 06/10/2016 FINDINGS: LUNGS: Perihilar and bibasilar opacities, grossly unchanged. PLEURA: Hazy opacity at both costophrenic angle suggests bilateral small pleural effusions. CARDIOVASCULAR: Normal heart size. ET tube, NG tube and right IJ central venous catheter are all grossly unchanged. OSSEOUS STRUCTURES: No significant abnormalities. VISUALIZED UPPER ABDOMEN: Normal. OTHER FINDINGS: None. IMPRESSION: No significant interval change. Bilateral alveolar opacities and small pleural effusions. Lines and tubes unchanged.
[2016-06-11] MEDS ORDERED: Insulin Detemir 100 units/ml Vial (Levemir) SC SCH (11:30)
--- NOTE | 2016-06-11 14:56 | CP.PCM.PN ---
Subjective - Date & Time of Evaluation Date of Evaluation: 06/11/16 Time of Evaluation: 12:00 - Subjective Subjective: Patient remains intubated at this time. He is awake, he was only on one sedating agent when I saw patient. He was awake and able to respond to some very simple questions with head gestures. He was able to indicating that he did not have chest or abdominal pain. He was slowly moving all extremities Urine output yesterday was 5.5 liters, and he had HD yesterday as well Objective - Vital Signs/Intake and Output Vital Signs (last 24 hours): Temp Pulse Resp BP Pulse Ox 10.4 F L 92 H 18 130/71 97 06/11/16 12:00 06/11/16 14:14 06/11/16 14:14 06/11/16 14:14 06/11/16 13:14 Intake and Output: 06/11/16 06/11/16 06:59 18:59 Intake Total 899.6 626.4 Output Total 2150 1600 Balance -1250.4 -973.6 - Medications Medications: Current Medications Acetaminophen (Tylenol 325mg Tab) 650 mg PO Q6 PRN PRN Reason: Fever >100.4 F Last Admin: 06/11/16 08:15 Dose: 650 mg Acetylcysteine (Acetylcysteine 20%) 4 ml PO BID [facility] Last Admin: 06/11/16 09:22 Dose: 4 ml Albuterol/Ipratropium (Duoneb 3 Mg/0.5 Mg (3 Ml) Ud) 3 ml INH RQ6 [facility] Last Admin: 06/11/16 13:21 Dose: 3 ml Apixaban (Eliquis) 5 mg PO BID [facility] Last Admin: 06/11/16 09:23 Dose: 5 mg Aspirin (Aspirin Chewable) 81 mg PO DAILY [facility] Last Admin: 06/11/16 09:23 Dose: 81 mg Calcium Acetate (Phoslo) 667 mg GT TIDCC [facility] Last Admin: 06/11/16 12:10 Dose: 667 mg Famotidine (Pepcid) 20 mg IVP DAILY [facility] Last Admin: 06/11/16 09:23 Dose: 20 mg Furosemide (Lasix) 40 mg IVP Q12 [facility] Last Admin: 06/11/16 09:23 Dose: 40 mg Midazolam HCl 100 mg/ Sodium (Chloride) 100 mls @ 3.09 mls/hr IV .Q24H [facility]; 0.02 MG/KG/HR PRN Reason: Protocol Last Admin: 06/11/16 09:27 Dose: 2 mls/hr Dexmedetomidine HCl 200 mcg/ (Sodium Chloride) 50 mls @ 7.74 mls/hr IVPB TITR PRN; Protocol; 0.2 MCG/KG/HR PRN Reason: Agitation Last Admin: 06/11/16 08:16 Dose: 7.74 mls/hr Cefepime HCl (Maxipime Iv 1 Gm Premix) 50 mls @ 100 mls/hr IVPB Q12H [facility] Last Admin: 06/11/16 06:30 Dose: 100 mls/hr Insulin Detemir (Levemir) 10 unit SC Q12H [facility] Last Admin: 06/11/16 12:10 Dose: 10 unit Insulin Human Regular (Novolin R) 0 unit SC Q6 [facility] PRN Reason: Protocol Last Admin: 06/11/16 12:10 Dose: 6 unit Lorazepam (Ativan) 2 mg IVP Q6H PRN PRN Reason: Anxiety Last Admin: 06/08/16 22:08 Dose: 2 mg Methylprednisolone (Solu-Medrol) 20 mg IV Q24H [facility] - Labs Labs: 06/11/16 06:11 06/11/16 06:15 PT 13.9 SECONDS (9.7-12.2) H 05/27/16 09:38 INR 1.2 05/27/16 09:38 APTT 65 SECONDS (21-34) H 05/29/16 10:50 - Constitutional Appears: Confused, Chronically Ill - Eye Exam Eye Exam: EOMI - ENT Exam ENT Exam: Mucous Membranes Moist - Respiratory Exam Respiratory Exam: Clear to Ausculation Bilateral, NORMAL BREATHING PATTERN - Cardiovascular Exam Cardiovascular Exam: REGULAR RHYTHM - Neurological Exam Neurological Exam: Awake. absent: CN II-XII Intact, Normal Gait, Oriented x3 - Skin Skin Exam: Normal Color, Warm Assessment and Plan - Assessment and Plan (Free Text) Assessment: 1) Acute respiratory failure 06/11: He had 5.5 liters of urine out over yesterday, hopefully with the HD - this will help with extubation 06/09: This morning patient self extubated and had to be reintubated. The sedation medication was changed; will be having more HD today to see if this will help with a successful extubation. 06/08: Remanins intubated, had HD yesterday. Hopefully can be weaned of ventilator soon 06/07: Patient will be getting HD at some point later today to see if this helps with extubation 06/06: I updated family members with reguards to recent events. He may or may not have a PE or this could be aspiration pneumonia for example. He is on IV abx and also he continues to recieve anticoagulation. * Intubated on 06/04/16 for "Code Blue" called on 06/04/16, patient did not lose pulse * Possible aspiration pneumonia vs less pulmonary embolus despite being on anticoagulation for extensive DVT right lower extremity * Unable to perform CT angio PE control secondary to chronic kidney disease 2) Thrombosis of the R iliac and common femoral vein 06/06: As mentioned before the patient was intended to have thrombolysis of the lower extremity with the chronic DVT however this was not able to be done immediately due to renal function. As of now on anticogulation. 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 normal venous flow noted in the left common femoral vein * Prior to respiratory arrest on 06/04/16, patient was planned for thrombolysis for this upcoming Tuesday 06/06 * Heme-oncology (Dr. 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 Ortega) on board 3) Sepsis 06/11: TMax was 101.3, WBC was a little higher -17 06/10: Currently of off abx. WBC is 15 06/09: Currently abx are being stopped today and monitor how the patient does 06/08: WBC are 16 today, remains on IV abx 06/06: The most recent blood cultures have been negative for 48 hrs, remains on IV abx. WBC 14 today. No elevated temperatures today * Criteria admission: WBC: 43.8, HR>90, Cr> 2.0, platelets 103 and blood culture: Serattia from 05/25/16 * Now: Criteria: WBC: 25.5, Tmax: 102.1 bands>10, platelets normalized, Cr 2.0, chest xray for possible aspiration pneumonia pending new cultures * Urine culture: no growth * 05/27/16 Blood Venous: No growth After 5 days X2 * Infectious disease (Dr. Marsh) on board * Procalcitonin: 16.1 (05/26/16)--> 31.81 (05/27/16)-->ordered for new one * Aztreonam 1gram IV Q 12hours (active since 05/26/16) and Maxipime 1gram IV Q 12hours (active since 05/29/16) * Abd CT(05/28/16): bilateral inguinal lymphadenopathy, right greater than left. cirrhotic contour of liver. fatty atrophy of the pancreas, splenic atrophy w residula spleen, recitulation and edema seen in subcutanous soft tissues, cholelithiasis, consolidative changes at both lung bases which may represen underying infiltrate. * Ab US (05/28/16): enlarged liver with diffuse fatty infiltration, cholelithiasis, limited visualization of the pancreas * Echocardiogram (05/30/16): EF: 55-60% left ventricular ejection fraction is within normal range. left ventricular diastolic function is normal. trace to mild tricupsid regurgitation, PAP 35-45 mmgHG, mild pulmonary hypertension 4) Acute renal failure on Chronic Kidney disease with Nephrotic Syndrome 06/11: U/O was a lot yesterday 5.5, also the creatine has decreased to 1.2 06/09: More HD today 06/08: S/P Hemodialysis 06/07: HD to be started some point * Nephrology (Dr. Rhoades) on board-->help appreciated * NS 125 cc/hr (started 06/04/16) * Has dialysis catheter port placed on 06/04/16 by ICU * Monitor potassium levels 5) History of COPD/asthma * Former smoker, quit 5 years ago * currently intubated secondary to respiratory arrest secondary to likely pnuemonia * Chest xray (3/18/17): in site ett and apparent in situ NGT as aboove in distal aspect of the NGT is poorly delinated, cardiomegaly, pulmonary vascular congestive changes with bilateral lower love alveolar-type infiltrates and bilateral effusions 6) History of Congestive Heart failure * 01/2016 ECHO- LV EF 60-65%, mild pulmonary HTN (see full report) * Echocardiogram (05/30/16): EF: 55-60% left ventricular ejection fraction is within normal range. left ventricular diastolic function is normal. trace to mild tricupsid regurgitation, PAP 35-45 mmgHG, mild pulmonary hypertension * off Crestor secondary to elevated BUN/Cr * off beta asmita secondary to acute respiratory failure; hx of copd se worsening bronchospasm * Aspirin 81mg PO daily 7)Diabetes Mellitus * Accuchecks Q6 hours * Novolin sliding scale subq 6hours * Diabetic source 20cc/hr via OGT * Prior a1c shows uncontrolled 8) History of Hypertension * Off antihypertensives 9) Hx of Nonstemi * January 2016 hospitalization * No cardiac cath * Hx of CHF 10) Prophylactic measures - SCDs contraindicated due to DVT - Eliquis 5mg PO BID for DVT Right LE - Pepcid 20mg PO daily for GI ppx - Tube feedings
--- NOTE | 2016-06-11 16:47 | CP.CCUPN ---
CCU Subjective - Physician Review Events Since Last Encounter (Free Text): 06/11/16 16:44 alert and following commands, tolerating PS for days now. CCU Objective - Vital Signs / Intake & Output Vital Signs (Last 4 hours): Vital Signs Pulse Resp BP Pulse Ox 06/11/16 14:14 92 H 18 130/71 06/11/16 13:14 84 19 144/68 97 06/11/16 13:00 85 17 100 Intake and Output (Last 8hrs): Intake & Output 06/11/16 06/11/16 06/11/16 06:59 14:59 22:59 Intake Total 616.4 626.4 Output Total 2100 1600 Balance -1483.6 -973.6 Weight 311 lb 15.265 oz Intake: Intake, IV Amount 136.4 76.4 Right Internal Jugular 62.4 62.4 Right Proximal Port 24 14 Internal Jugular Right Distal Port 50 Internal Jugular Tube Feeding 480 550 Output: Urine 2100 1600 Urethral (Ruiz) 2100 1600 - Physical Exam Head: Positive for: Atraumatic, Normocephalic Pupils: Positive for: PERRL Conjunctiva: Positive for: Normal Mouth: Positive for: Moist Mucous Membranes Respiratory/Chest: Positive for: Clear to Auscultation Cardiovascular: Positive for: Regular Rate and Rhythm Abdomen: Positive for: Normal Bowel Sounds. Negative for: Tenderness, Distention Upper Extremity: Positive for: Edema Lower Extremity: Positive for: Edema, Swelling, Erythema Skin: Positive for: Warm, Dry - Medications Active Medications: Active Medications Generic Name Dose Route Start Last Admin Trade Name Freq PRN Reason Stop Dose Admin Acetaminophen 650 mg 06/04/16 00:38 06/11/16 08:15 Tylenol 325mg Tab PO 650 mg Q6 PRN Administration Fever >100.4 F Acetylcysteine 4 ml 06/04/16 00:01 06/11/16 09:22 Acetylcysteine 20% PO 4 ml BID [facility] Administration Albuterol/Ipratropium 3 ml 06/05/16 20:00 06/11/16 13:21 Duoneb 3 Mg/0.5 Mg (3 Ml) Ud INH 3 ml RQ6 [facility] Administration Apixaban 5 mg 06/10/16 18:00 06/11/16 09:23 Eliquis PO 5 mg BID [facility] Administration Aspirin 81 mg 05/26/16 10:00 06/11/16 09:23 Aspirin Chewable PO 81 mg DAILY [facility] Administration Calcium Acetate 667 mg 06/06/16 12:00 06/11/16 12:10 Phoslo GT 667 mg TIDCC [facility] Administration Famotidine 20 mg 06/04/16 11:45 06/11/16 09:23 Pepcid IVP 20 mg DAILY [facility] Administration Furosemide 40 mg 06/08/16 13:15 06/11/16 09:23 Lasix IVP 40 mg Q12 [facility] Administration Midazolam HCl 100 mg/ Sodium 100 mls @ 3.09 mls/hr 06/09/16 10:00 06/11/16 09: 27 Chloride IV 2 mls/hr .Q24H [facility] Administration Protocol 0.02 MG/KG/HR Dexmedetomidine HCl 200 mcg/ 50 mls @ 7.74 mls/hr 06/09/16 10:18 06/11/16 08:16 Sodium Chloride IVPB 7.74 mls/hr TITR PRN Administration Agitation Protocol 0.2 MCG/KG/HR Cefepime HCl 1 gm/ Sodium 100 mls @ 100 mls/hr 06/12/16 04:30 Chloride IVPB Q12H [facility] Insulin Detemir 10 unit 06/11/16 11:30 06/11/16 12:10 Levemir SC 10 unit Q12H [facility] Administration Insulin Human Regular 0 unit 06/07/16 12:00 06/11/16 12:10 Novolin R SC 6 unit Q6 [facility] Administration Protocol Lorazepam 2 mg 06/06/16 14:53 06/08/16 22:08 Ativan IVP 2 mg Q6H PRN Administration Anxiety Methylprednisolone 20 mg 06/12/16 10:00 Solu-Medrol IV Q24H [facility] - Patient Studies Lab Studies: Microbiology Studies 06/10/16 16:00 Urine Culture - Preliminary Urine Gram Positive Cocci 06/10/16 16:00 Gram Stain - Final Trachasp Sputum Culture - Preliminary NORMAL ORAL HIEN 06/10/16 04:00 Blood Culture - Preliminary Blood-Venous NO GROWTH AFTER 24 HOURS 06/10/16 04:00 Blood Culture - Preliminary Blood-Venous NO GROWTH AFTER 24 HOURS Lab Studies 06/11/16 06/11/16 06/11/16 Range/Units 11:44 06:21 06:15 WBC (4.8-10.8) K/uL RBC (4.40-5.90) Mil/uL Hgb (12.0-18.0) g/dL Hct (35.0-51.0) % MCV (80.0-94.0) fL MCH (27.0-31.0) pg MCHC (33.0-37.0) g/dL RDW (11.5-14.5) % Plt Count (130-400) K/uL MPV (7.2-11.7) fL Neut % (Auto) (50.0-75.0) % Lymph % (Auto) (20.0-40.0) % [place] % (Auto) (0.0-10.0) % Eos % (Auto) (0.0-4.0) % Baso % (Auto) (0.0-2.0) % Neut # (1.8-7.0) K/uL Lymph # (1.0-4.3) K/uL [place] # (0.0-0.8) K/uL Eos # (0.0-0.7) K/uL Baso # (0.0-0.2) K/uL Puncture Site pCO2 (35-45) mm/Hg pO2 (80-100) mm/Hg HCO3 (21-28) mmol/L ABG pH (7.35-7.45) ABG Total CO2 (22-28) mmol/L ABG O2 Saturation (95-98) % ABG Base Excess (-2.0-3.0) mmol/L ABG Hemoglobin (11.7-17.4) g/dL ABG Carboxyhemoglobin (0.5-1.5) % POC ABG HHb (Measured) (0.0-5.0) % ABG Methemoglobin (0.0-3.0) % Philippe Test A-a O2 Difference mm/Hg Respiratory Index Hgb O2 Saturation (95.0-98.0) % FiO2 % PEEP Pressure Support CPAP Sodium 140 (132-148) mmol/L Potassium 4.4 (3.6-5.2) mmol/L Chloride 101 (98-107) mmol/L Carbon Dioxide 32 H (22-30) mmol/L Anion Gap 11 (10-20) BUN 47 H (9-20) mg/dL Creatinine 1.2 (0.8-1.5) MG/DL Est GFR ( Amer) > 60 Est GFR (Non-Af Amer) > 60 POC Glucose (mg/dL) 281 H 287 H (65-110) mg/dL Random Glucose 325 H (75-110) mg/dL Calcium 7.7 L (8.6-10.4) mg/dl Phosphorus 3.8 (2.5-4.5) mg/dL Magnesium 1.6 (1.6-2.3) mg/dL Total Bilirubin 0.9 (0.2-1.3) mg/dL AST 52 (17-59) U/L ALT 67 (21-72) U/L Alkaline Phosphatase 258 H (38-126) U/L Total Protein 5.7 L (6.3-8.3) g/dL Albumin 2.4 L (3.5-5.0) g/dL Globulin 3.3 (2.2-3.9) gm/dL Albumin/Globulin Ratio 0.7 L (1.0-2.1) 06/11/16 06/11/16 06/10/16 Range/Units 06:11 05:05 23:47 WBC 17.3 H (4.8-10.8) K/uL RBC 4.74 (4.40-5.90) Mil/uL Hgb 13.2 (12.0-18.0) g/dL Hct 41.7 (35.0-51.0) % MCV 87.9 (80.0-94.0) fL MCH 27.8 (27.0-31.0) pg MCHC 31.6 L (33.0-37.0) g/dL RDW 16.4 H (11.5-14.5) % Plt Count 150 (130-400) K/uL MPV 11.5 (7.2-11.7) fL Neut % (Auto) 79.1 H (50.0-75.0) % Lymph % (Auto) 11.0 L (20.0-40.0) % [place] % (Auto) 7.8 (0.0-10.0) % Eos % (Auto) 1.4 (0.0-4.0) % Baso % (Auto) 0.7 (0.0-2.0) % Neut # 13.7 H (1.8-7.0) K/uL Lymph # 1.9 (1.0-4.3) K/uL [place] # 1.3 H (0.0-0.8) K/uL Eos # 0.2 (0.0-0.7) K/uL Baso # 0.1 (0.0-0.2) K/uL Puncture Site Rr pCO2 49 H (35-45) mm/Hg pO2 91 (80-100) mm/Hg HCO3 31.0 H (21-28) mmol/L ABG pH 7.44 (7.35-7.45) ABG Total CO2 34.8 H (22-28) mmol/L ABG O2 Saturation 98.9 H (95-98) % ABG Base Excess 7.8 H (-2.0-3.0) mmol/L ABG Hemoglobin 13.3 (11.7-17.4) g/dL ABG Carboxyhemoglobin 2.0 H (0.5-1.5) % POC ABG HHb (Measured) 1.1 (0.0-5.0) % ABG Methemoglobin 1.1 (0.0-3.0) % Philippe Test Pos A-a O2 Difference 276.0 mm/Hg Respiratory Index 3.0 Hgb O2 Saturation 95.8 (95.0-98.0) % FiO2 60.0 % PEEP 8 Pressure Support 16 CPAP 8 Sodium (132-148) mmol/L Potassium (3.6-5.2) mmol/L Chloride (98-107) mmol/L Carbon Dioxide (22-30) mmol/L Anion Gap (10-20) BUN (9-20) mg/dL Creatinine (0.8-1.5) MG/DL Est GFR ( Amer) Est GFR (Non-Af Amer) POC Glucose (mg/dL) 284 H (65-110) mg/dL Random Glucose (75-110) mg/dL Calcium (8.6-10.4) mg/dl Phosphorus (2.5-4.5) mg/dL Magnesium (1.6-2.3) mg/dL Total Bilirubin (0.2-1.3) mg/dL AST (17-59) U/L ALT (21-72) U/L Alkaline Phosphatase (38-126) U/L Total Protein (6.3-8.3) g/dL Albumin (3.5-5.0) g/dL Globulin (2.2-3.9) gm/dL Albumin/Globulin Ratio (1.0-2.1) 06/10/16 Range/Units 17:34 WBC (4.8-10.8) K/uL RBC (4.40-5.90) Mil/uL Hgb (12.0-18.0) g/dL Hct (35.0-51.0) % MCV (80.0-94.0) fL MCH (27.0-31.0) pg MCHC (33.0-37.0) g/dL RDW (11.5-14.5) % Plt Count (130-400) K/uL MPV (7.2-11.7) fL Neut % (Auto) (50.0-75.0) % Lymph % (Auto) (20.0-40.0) % [place] % (Auto) (0.0-10.0) % Eos % (Auto) (0.0-4.0) % Baso % (Auto) (0.0-2.0) % Neut # (1.8-7.0) K/uL Lymph # (1.0-4.3) K/uL [place] # (0.0-0.8) K/uL Eos # (0.0-0.7) K/uL Baso # (0.0-0.2) K/uL Puncture Site pCO2 (35-45) mm/Hg pO2 (80-100) mm/Hg HCO3 (21-28) mmol/L ABG pH (7.35-7.45) ABG Total CO2 (22-28) mmol/L ABG O2 Saturation (95-98) % ABG Base Excess (-2.0-3.0) mmol/L ABG Hemoglobin (11.7-17.4) g/dL ABG Carboxyhemoglobin (0.5-1.5) % POC ABG HHb (Measured) (0.0-5.0) % ABG Methemoglobin (0.0-3.0) % Philippe Test A-a O2 Difference mm/Hg Respiratory Index Hgb O2 Saturation (95.0-98.0) % FiO2 % PEEP Pressure Support CPAP Sodium (132-148) mmol/L Potassium (3.6-5.2) mmol/L Chloride (98-107) mmol/L Carbon Dioxide (22-30) mmol/L Anion Gap (10-20) BUN (9-20) mg/dL Creatinine (0.8-1.5) MG/DL Est GFR ( Amer) Est GFR (Non-Af Amer) POC Glucose (mg/dL) 271 H (65-110) mg/dL Random Glucose (75-110) mg/dL Calcium (8.6-10.4) mg/dl Phosphorus (2.5-4.5) mg/dL Magnesium (1.6-2.3) mg/dL Total Bilirubin (0.2-1.3) mg/dL AST (17-59) U/L ALT (21-72) U/L Alkaline Phosphatase (38-126) U/L Total Protein (6.3-8.3) g/dL Albumin (3.5-5.0) g/dL Globulin (2.2-3.9) gm/dL Albumin/Globulin Ratio (1.0-2.1) Laboratory Results - last 24 hr 06/10/16 06/10/16 06/11/16 17:34 23:47 05:05 WBC RBC Hgb Hct MCV MCH MCHC RDW Plt Count MPV Neut % (Auto) Lymph % (Auto) [place] % (Auto) Eos % (Auto) Baso % (Auto) Neut # Lymph # [place] # Eos # Baso # Puncture Site Rr pCO2 49 H pO2 91 HCO3 31.0 H ABG pH 7.44 ABG Total CO2 34.8 H ABG O2 Saturation 98.9 H ABG Base Excess 7.8 H ABG Hemoglobin 13.3 ABG Carboxyhemoglobin 2.0 H POC ABG HHb (Measured) 1.1 ABG Methemoglobin 1.1 Philippe Test Pos A-a O2 Difference 276.0 Respiratory Index 3.0 Hgb O2 Saturation 95.8 FiO2 60.0 PEEP 8 Pressure Support 16 CPAP 8 Sodium Potassium Chloride Carbon Dioxide Anion Gap BUN Creatinine Est GFR ( Amer) Est GFR (Non-Af Amer) POC Glucose (mg/dL) 271 H 284 H Random Glucose Calcium Phosphorus Magnesium Total Bilirubin AST ALT Alkaline Phosphatase Total Protein Albumin Globulin Albumin/Globulin Ratio 06/11/16 06/11/16 06/11/16 06:11 06:15 06:21 WBC 17.3 H RBC 4.74 Hgb 13.2 Hct 41.7 MCV 87.9 MCH 27.8 MCHC 31.6 L RDW 16.4 H Plt Count 150 MPV 11.5 Neut % (Auto) 79.1 H Lymph % (Auto) 11.0 L [place] % (Auto) 7.8 Eos % (Auto) 1.4 Baso % (Auto) 0.7 Neut # 13.7 H Lymph # 1.9 [place] # 1.3 H Eos # 0.2 Baso # 0.1 Puncture Site pCO2 pO2 HCO3 ABG pH ABG Total CO2 ABG O2 Saturation ABG Base Excess ABG Hemoglobin ABG Carboxyhemoglobin POC ABG HHb (Measured) ABG Methemoglobin Philippe Test A-a O2 Difference Respiratory Index Hgb O2 Saturation FiO2 PEEP Pressure Support CPAP Sodium 140 Potassium 4.4 Chloride 101 Carbon Dioxide 32 H Anion Gap 11 BUN 47 H Creatinine 1.2 Est GFR ( Amer) > 60 Est GFR (Non-Af Amer) > 60 POC Glucose (mg/dL) 287 H Random Glucose 325 H Calcium 7.7 L Phosphorus 3.8 Magnesium 1.6 Total Bilirubin 0.9 AST 52 ALT 67 Alkaline Phosphatase 258 H Total Protein 5.7 L Albumin 2.4 L Globulin 3.3 Albumin/Globulin Ratio 0.7 L 06/11/16 11:44 WBC RBC Hgb Hct MCV MCH MCHC RDW Plt Count MPV Neut % (Auto) Lymph % (Auto) [place] % (Auto) Eos % (Auto) Baso % (Auto) Neut # Lymph # [place] # Eos # Baso # Puncture Site pCO2 pO2 HCO3 ABG pH ABG Total CO2 ABG O2 Saturation ABG Base Excess ABG Hemoglobin ABG Carboxyhemoglobin POC ABG HHb (Measured) ABG Methemoglobin Philippe Test A-a O2 Difference Respiratory Index Hgb O2 Saturation FiO2 PEEP Pressure Support CPAP Sodium Potassium Chloride Carbon Dioxide Anion Gap BUN Creatinine Est GFR ( Amer) Est GFR (Non-Af Amer) POC Glucose (mg/dL) 281 H Random Glucose Calcium Phosphorus Magnesium Total Bilirubin AST ALT Alkaline Phosphatase Total Protein Albumin Globulin Albumin/Globulin Ratio Fingerstick Blood Sugar Results: 287 Review of Systems - Review of Systems Systems not reviewed;Unavailable: Intubated Critical Care Progress Note - Ventilator Checklist Head of Bed 30 Degrees: Yes Daily Sedation Vacation: Yes Daily Assessment of Readiness to Wean: Yes Daily Spontaneous Breathing Trial: Yes PUD Prophalyxis: Yes DVT Prophylaxis: Yes Assessment/Plan (1) Acute respiratory failure Assessment and plan: 45 year old male with PMHx of COPD, asthma, DM, HN, DVT in RLE, NSTEMI in 2015, gallstones, liver cirrhosis, and CKD presents with complaint of aright LE pain and swelling. Pt recently was admitted to [facility] and found to have a DVT in his right lower extremity and discharged on Xarelto. Repeat venous doppler is consistent with extensive right femoral and iliac vein DVT. ( 06/04) Annamaria Nelson was called on due to pt. being unresponsive. Chest compressions were started. Patient intubated and transferred to intensive care unit. intubation (06/04/16). Neuro: titrated off all sedation, now on precedex. Pulm: Acute respiratory failure with hypercarbia and hypoxia on vent, now tolerating PS trials. patient most likely has obesity hypoventilation and possibly obstructive sleep apnea, known history of asthma on Solumedrol. CV: Hemodynamically stable Hem: Lower extremity DVT now on Eliquis Renal: patient making urine, creatinine normalized, stopping dialysis. Endo: DM type II, on regular insulin sliding scale, levemir 15 units q12h. Steroids also causing hyperglycemia. GI: Nothing by mouth, starting DiaBetisource at 20. ID: Empiric coverage with aztreonam and cefepime. Removed femoral shiley, possible source of new infection. DVT proph - Eliquis GI proph - Pepcid [facility] (06/09) ruiz for strict I/O's during acute illness Code status - full code Current Visit: Yes Status: Acute
[2016-06-11] MEDS: Insulin Detemir 100 units/ml Vial (Levemir) SC SCH (18:27)
--- NOTE | 2016-06-11 20:09 | CP.PCM.PN ---
Subjective - Date & Time of Evaluation Date of Evaluation: 06/11/16 Time of Evaluation: 02:20 - Subjective Subjective: dictated Objective - Vital Signs/Intake and Output Vital Signs (last 24 hours): Temp Pulse Resp BP Pulse Ox 98.0 F 86 17 147/78 96 06/11/16 16:00 06/11/16 18:14 06/11/16 18:14 06/11/16 18:14 06/11/16 18:14 Intake and Output: 06/11/16 06/12/16 18:59 06:59 Intake Total 937.6 Output Total 2300 Balance -1362.4 - Medications Medications: Current Medications Acetaminophen (Tylenol 325mg Tab) 650 mg PO Q6 PRN PRN Reason: Fever >100.4 F Last Admin: 06/11/16 08:15 Dose: 650 mg Acetylcysteine (Acetylcysteine 20%) 4 ml PO BID [facility] Last Admin: 06/11/16 18:28 Dose: 4 ml Albuterol/Ipratropium (Duoneb 3 Mg/0.5 Mg (3 Ml) Ud) 3 ml INH RQ6 [facility] Last Admin: 06/11/16 19:14 Dose: 3 ml Apixaban (Eliquis) 5 mg PO BID [facility] Last Admin: 06/11/16 18:31 Dose: 5 mg Aspirin (Aspirin Chewable) 81 mg PO DAILY [facility] Last Admin: 06/11/16 09:23 Dose: 81 mg Calcium Acetate (Phoslo) 667 mg GT TIDCC [facility] Last Admin: 06/11/16 18:27 Dose: 667 mg Famotidine (Pepcid) 20 mg IVP DAILY [facility] Last Admin: 06/11/16 09:23 Dose: 20 mg Furosemide (Lasix) 40 mg IVP Q12 [facility] Last Admin: 06/11/16 09:23 Dose: 40 mg Dexmedetomidine HCl 200 mcg/ (Sodium Chloride) 50 mls @ 7.74 mls/hr IVPB TITR PRN; Protocol; 0.2 MCG/KG/HR PRN Reason: Agitation Last Admin: 06/11/16 08:16 Dose: 7.74 mls/hr Cefepime HCl 1 gm/ Sodium (Chloride) 100 mls @ 100 mls/hr IVPB Q12H [facility] Insulin Detemir (Levemir) 15 unit SC Q12H [facility] Last Admin: 06/11/16 18:27 Dose: 15 unit Insulin Human Regular (Novolin R) 0 unit SC Q6 [facility] PRN Reason: Protocol Last Admin: 06/11/16 18:27 Dose: 6 unit Lorazepam (Ativan) 2 mg IVP Q6H PRN PRN Reason: Anxiety Last Admin: 06/08/16 22:08 Dose: 2 mg Methylprednisolone (Solu-Medrol) 20 mg IV Q24H [facility] - Labs Labs: 06/11/16 06:11 06/11/16 06:15 PT 13.9 SECONDS (9.7-12.2) H 05/27/16 09:38 INR 1.2 05/27/16 09:38 APTT 65 SECONDS (21-34) H 05/29/16 10:50
--- NOTE | 2016-06-11 21:56 | PN ---
DATE: 06/11/2016 The patient had a T-max of 101.3 today. When I went in they had removed the dialysis catheter, which probably could be the source. He was opening his eyes; remains intubated. They were changing the u rinary bag, as he was making lot of urine, and he remained on the ventilator, however. Temperature is 98, pulse 88, blood pressure 149/78, respirations are on the vent. HEAD: Atraumatic. NECK: Supple. LUNGS: Clear. No crackles or rales present. HEART: S1, S2 regular. ABDOMEN: Soft, flabby, nontender. Right leg appears to be less warm and less tight with edema, and left leg was unremarkable. He is ob chauncey. White count still remains high at 17.3, hemoglobin 13.2, hematocrit 41.7, platelet count is 150. His sodium is 140, potassium 4.4, chloride 101, CO2 of 32, BUN is 47, and creatinine of 1.2. Alkaline p hosphatase is 258, but the LFTs are unremarkable. MEDICATIONS: He is on Tylenol. He is on Mucomyst, DuoNeb, Eliquis, aspirin, PhosLo. We started cef epime 1 g q. 12. He is on dexa (that is probably a sedative for on the ventilator), and on Pepc id, Lasix, Levemir, lorazepam, and he is on Solu-Medrol which was decreased and 20 IV piggyback q. 24 hours. Cultures were done yesterday which are negative. Urine culture, however, has GPCs, ID and sensitivit y of which is pending. At this time they changed the catheter, and if he continues to be febrile we may have to treat with v ancomycin. At this time his creatinine is better, but would like to see the ID and sensitivity, and repeat the cultures. Will follow. Joshua Marsh MD cc: [id number] TT: 06/11/2016 21:56:20 Confirmation # [id number] Dictation # [id number]
[2016-06-11] MEDS: Acetaminophen 650mg/20.3ml solution UD GT PRN (23:59)
[2016-06-12] MEDS: (Novolin R) Insulin Human Regular 100 units/ml vial SC SCH ×4 (00:59→18:20)
[2016-06-12] MEDS: Albuterol-Ipratrop 3 mg / 0.5 (3 ml) UD INH SCH ×3 (01:12→13:06)
[2016-06-12] MEDS: Dexmedetomidine Hydrochloride 200 MCG in Sodium Chloride 0.9% 48 ML IVPB PRN (04:00)
[2016-06-12] MEDS: Cefepime 1 GM in Sodium Chloride 0.9% 100 ML IVPB SCH ×2 (04:30→16:19)
[2016-06-12] MEDS: Insulin Detemir 100 units/ml Vial (Levemir) SC SCH ×2 (04:38→18:19)
[2016-06-12 04:49] LABS: ABG ALLEN TEST POS; CARBOXYHEMOGLOBIN 2.1 % (0.5-1.5); DRAW SITE RR; HHB 1.9 % (0.0-5.0); METHEMOGLOBIN 1.1 % (0.0-3.0)
[2016-06-12 06:22] LABS: GRANULAR CAST 8 /lpf (0-1); RBC URINE 8 /hpf (0-3); URINE BACTERIA MANY (<OCC); URINE BILIRUBIN NEGATIVE (NEGATIVE); URINE BLOOD 1+ (NEGATIVE); URINE COLOR Yellow (YELLOW); URINE GLUCOSE (UA) 3+ mg/dL (Normal); URINE KETONE NEGATIVE (NEGATIVE); URINE LEUKOCYTE ESTERASE NEG Leu/uL (Negative); URINE PROTEIN 2+ mg/dL (NEGATIVE); URINE UROBILINOGEN NORMAL mg/dL (0.2-1.0); WBC CLUMPS RARE /hpf; WBC URINE 10 /hpf (0-5)
[2016-06-12 06:30] LABS: BASO # 0.2 K/uL (0.0-0.2); BASO % 0.8 % (0.0-2.0); EOS # 0.9 K/uL (0.0-0.7); EOS % 4.4 % (0.0-4.0); HEMATOCRIT 38.1 % (35.0-51.0); LYMPH # 2.9 K/uL (1.0-4.3); LYMPH % 14.6 % (20.0-40.0); MEAN CELL VOLUME 88.8 fL (80.0-94.0); MEAN CORPUSCULAR HEMOGLOBIN 28.4 pg (27.0-31.0); MEAN PLATELET VOLUME 12.3 fL (7.2-11.7); MONO # 2.4 K/uL (0.0-0.8); MONO % 12.4 % (0.0-10.0); NRBC % 0.1 % (0.0-2.0); RED CELL DISTRIBUTION WIDTH 16.6 % (11.5-14.5); WHITE BLOOD COUNT 19.5 K/uL (4.8-10.8)
[2016-06-12 06:38] LABS: CHLORIDE 100 mmol/L (98-107); SODIUM 143 mmol/L (132-148)
[2016-06-12 06:41] LABS: ALB/GLOB RATIO 0.8 (1.0-2.1); ALKALINE PHOSPHATASE 206 U/L (38-126); AST/SGOT 36 U/L (17-59); BILIRUBIN,TOTAL 0.8 mg/dL (0.2-1.3); BLOOD UREA NITROGEN 59 mg/dL (9-20); CARBON DIOXIDE 36 mmol/L (22-30); GFR AFRICAN-AMERICAN > 60; GLUCOSE,RANDOM 322 mg/dL (75-110); PHOSPHOROUS 3.6 mg/dL (2.5-4.5); TOTAL PROTEIN 5.1 g/dL (6.3-8.3)
[2016-06-12 06:42] LABS: ALT/SGPT 53 U/L (21-72); CALCIUM 7.8 mg/dl (8.6-10.4); MAGNESIUM 1.8 mg/dL (1.6-2.3)
[2016-06-12] MEDS ORDERED: MethylPREDNISolone 40 mg Vial IV SCH (10:00)
--- NOTE | 2016-06-12 10:57 | RAD ---
HISTORY: vented COMPARISON: 06/11/2016 FINDINGS: LUNGS: No active pulmonary disease. PLEURA: Hazy opacity at left costophrenic angle persists. Right costophrenic angle clear. No pneumothorax. CARDIOVASCULAR: ET tube, NG tube and right IJ central venous catheter unchanged. OSSEOUS STRUCTURES: No significant abnormalities. VISUALIZED UPPER ABDOMEN: Normal. OTHER FINDINGS: None. IMPRESSION: Small left pleural effusion. Right costophrenic angle clear. No infiltrate. Lines and tubes unchanged.
[2016-06-12] MEDS: Acetylcysteine 20% Inhal Soln (4ml) PO SCH ×2 (11:07→18:09)
--- NOTE | 2016-06-12 12:00 | CP.PCM.PN ---
Subjective - Date & Time of Evaluation Date of Evaluation: 06/12/16 Time of Evaluation: 11:45 - Subjective Subjective: Patient was extubated earlier today. He is currently on Bipap. He is awake, alert, answering some questions slowly. He was tired and sleepy when I saw him. Family present at this time. CXRAY shows a small Left pleural effusion. Tmax was 101.3, WBC is 19. Currently on IV abx Tigecyclin and IV Cefepime. Objective - Vital Signs/Intake and Output Vital Signs (last 24 hours): Temp Pulse Resp BP Pulse Ox 100.4 F H 85 14 123/52 L 98 06/12/16 08:00 06/12/16 10:25 06/12/16 09:14 06/12/16 11:29 06/12/16 09:00 Intake and Output: 06/12/16 06/12/16 06:59 18:59 Intake Total 1033.6 89.5 Output Total 1485 355 Balance -451.4 -265.5 - Medications Medications: Current Medications Acetaminophen (Tylenol 650mg/20.3ml Solution Ud) 650 mg GT Q6 PRN PRN Reason: Fever >100.4 F Last Admin: 06/11/16 23:59 Dose: 650 mg Acetylcysteine (Acetylcysteine 20%) 4 ml PO BID [facility] Last Admin: 06/12/16 11:07 Dose: Not Given Albuterol/Ipratropium (Duoneb 3 Mg/0.5 Mg (3 Ml) Ud) 3 ml INH RQ6 [facility] Last Admin: 06/12/16 07:32 Dose: 3 ml Apixaban (Eliquis) 5 mg PO BID [facility] Last Admin: 06/12/16 11:30 Dose: Not Given Aspirin (Aspirin Chewable) 81 mg PO DAILY [facility] Last Admin: 06/12/16 11:29 Dose: 81 mg Calcium Acetate (Phoslo) 667 mg GT TIDCC [facility] Last Admin: 06/12/16 11:08 Dose: Not Given Famotidine (Pepcid) 20 mg IVP DAILY [facility] Last Admin: 06/12/16 11:27 Dose: 20 mg Furosemide (Lasix) 40 mg IVP Q12 [facility] Last Admin: 06/12/16 11:29 Dose: 40 mg Dexmedetomidine HCl 200 mcg/ (Sodium Chloride) 50 mls @ 7.74 mls/hr IVPB TITR PRN; Protocol; 0.2 MCG/KG/HR PRN Reason: Agitation Last Titration: 06/12/16 11:08 Dose: 0 mcg/kg/hr Cefepime HCl 1 gm/ Sodium (Chloride) 100 mls @ 100 mls/hr IVPB Q12H [facility] Last Admin: 06/12/16 04:30 Dose: 100 mls/hr Tigecycline 50 mg/ Dextrose 100 mls @ 100 mls/hr IV Q12H [facility] Insulin Detemir (Levemir) 15 unit SC Q12H [facility] Last Admin: 06/12/16 04:38 Dose: 15 unit Insulin Human Regular (Novolin R) 0 unit SC Q6 [facility] PRN Reason: Protocol Last Admin: 06/12/16 06:22 Dose: 8 unit Lorazepam (Ativan) 2 mg IVP Q6H PRN PRN Reason: Anxiety Last Admin: 06/08/16 22:08 Dose: 2 mg Methylprednisolone (Solu-Medrol) 20 mg IV Q24H [facility] Last Admin: 06/12/16 11:26 Dose: 20 mg - Labs Labs: 06/12/16 06:18 06/12/16 06:18 PT 13.9 SECONDS (9.7-12.2) H 05/27/16 09:38 INR 1.2 05/27/16 09:38 APTT 65 SECONDS (21-34) H 05/29/16 10:50 - Constitutional Appears: Chronically Ill - ENT Exam ENT Exam: Mucous Membranes Moist - Respiratory Exam Respiratory Exam: Decreased Breath Sounds, NORMAL BREATHING PATTERN - Cardiovascular Exam Cardiovascular Exam: REGULAR RHYTHM - GI/Abdominal Exam GI & Abdominal Exam: Soft, Normal Bowel Sounds. absent: Guarding, Rigid, Tenderness - Extremities Exam Extremities Exam: Pedal Edema Additional comments: As before, there are pedal edema. - Neurological Exam Neurological Exam: Alert, Awake Neuro motor strength exam: Left Upper Extremity: 4, Right Upper Extremity: 4 Assessment and Plan - Assessment and Plan (Free Text) Assessment: 1) Acute respiratory failure 06/12: Now extubated, on Bipap. Responding to question. 06/11: He had 5.5 liters of urine out over yesterday, hopefully with the HD - this will help with extubation 06/09: This morning patient self extubated and had to be reintubated. The sedation medication was changed; will be having more HD today to see if this will help with a successful extubation. 06/08: Remanins intubated, had HD yesterday. Hopefully can be weaned of ventilator soon 06/07: Patient will be getting HD at some point later today to see if this helps with extubation 06/06: I updated family members with reguards to recent events. He may or may not have a PE or this could be aspiration pneumonia for example. He is on IV abx and also he continues to recieve anticoagulation. * Intubated on 06/04/16 for "Code Blue" called on 06/04/16, patient did not lose pulse * Possible aspiration pneumonia vs less pulmonary embolus despite being on anticoagulation for extensive DVT right lower extremity * Unable to perform CT angio PE control secondary to chronic kidney disease 2) Thrombosis of the R iliac and common femoral vein 06/06: As mentioned before the patient was intended to have thrombolysis of the lower extremity with the chronic DVT however this was not able to be done immediately due to renal function. As of now on anticogulation. 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 normal venous flow noted in the left common femoral vein * Prior to respiratory arrest on 06/04/16, patient was planned for thrombolysis for this upcoming Tuesday 06/06 * Heme-oncology (Dr. 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 Ortega) on board 3) Sepsis 06/12: Just added on Tigecyclin IV 06/11: TMax was 101.3, WBC was a little higher -17 06/10: Currently of off abx. WBC is 15 06/09: Currently abx are being stopped today and monitor how the patient does 06/08: WBC are 16 today, remains on IV abx 06/06: The most recent blood cultures have been negative for 48 hrs, remains on IV abx. WBC 14 today. No elevated temperatures today * Criteria admission: WBC: 43.8, HR>90, Cr> 2.0, platelets 103 and blood culture: Serattia from 05/25/16 * Now: Criteria: WBC: 25.5, Tmax: 102.1 bands>10, platelets normalized, Cr 2.0, chest xray for possible aspiration pneumonia pending new cultures * Urine culture: no growth * 05/27/16 Blood Venous: No growth After 5 days X2 * Infectious disease (Dr. Marsh) on board * Procalcitonin: 16.1 (05/26/16)--> 31.81 (05/27/16)-->ordered for new one * Aztreonam 1gram IV Q 12hours (active since 05/26/16) and Maxipime 1gram IV Q 12hours (active since 05/29/16) * Abd CT(05/28/16): bilateral inguinal lymphadenopathy, right greater than left. cirrhotic contour of liver. fatty atrophy of the pancreas, splenic atrophy w residula spleen, recitulation and edema seen in subcutanous soft tissues, cholelithiasis, consolidative changes at both lung bases which may represen underying infiltrate. * Ab US (05/28/16): enlarged liver with diffuse fatty infiltration, cholelithiasis, limited visualization of the pancreas * Echocardiogram (05/30/16): EF: 55-60% left ventricular ejection fraction is within normal range. left ventricular diastolic function is normal. trace to mild tricupsid regurgitation, PAP 35-45 mmgHG, mild pulmonary hypertension 4) Acute renal failure on Chronic Kidney disease with Nephrotic Syndrome 06/12 creatine and renal function stable at the moment. His weight was 350lbs on 06/06 and now down to 304lbs 06/11: U/O was a lot yesterday 5.5, also the creatine has decreased to 1.2 06/09: More HD today 06/08: S/P Hemodialysis 06/07: HD to be started some point * Nephrology (Dr. Rhoades) on board-->help appreciated * NS 125 cc/hr (started 06/04/16) * Has dialysis catheter port placed on 06/04/16 by ICU * Monitor potassium levels 5) History of COPD/asthma * Former smoker, quit 5 years ago * currently intubated secondary to respiratory arrest secondary to likely pnuemonia * Chest xray (06/04/16): in site ett and apparent in situ NGT as aboove in distal aspect of the NGT is poorly delinated, cardiomegaly, pulmonary vascular congestive changes with bilateral lower love alveolar-type infiltrates and bilateral effusions 6) History of Congestive Heart failure * 01/2016 ECHO- LV EF 60-65%, mild pulmonary HTN (see full report) * Echocardiogram (05/30/16): EF: 55-60% left ventricular ejection fraction is within normal range. left ventricular diastolic function is normal. trace to mild tricupsid regurgitation, PAP 35-45 mmgHG, mild pulmonary hypertension * off Crestor secondary to elevated BUN/Cr * off beta asmita secondary to acute respiratory failure; hx of copd se worsening bronchospasm * Aspirin 81mg PO daily 7)Diabetes Mellitus * Accuchecks Q6 hours * Novolin sliding scale subq 6hours * Diabetic source 20cc/hr via OGT * Prior a1c shows uncontrolled 8) History of Hypertension * Off antihypertensives 9) Hx of Nonstemi * January 2016 hospitalization * No cardiac cath * Hx of CHF 10) Prophylactic measures - SCDs contraindicated due to DVT - Eliquis 5mg PO BID for DVT Right LE - Pepcid 20mg PO daily for GI ppx - Tube feedings
--- NOTE | 2016-06-12 16:41 | CP.CCUPN ---
CCU Subjective - Physician Review Events Since Last Encounter (Free Text): 06/12/16 16:41 CCU Objective - Vital Signs / Intake & Output Vital Signs (Last 4 hours): Vital Signs Pulse BP Pulse Ox 06/12/16 15:00 94 H 94 L 06/12/16 14:15 93 H 134/100 H 89 L 06/12/16 14:00 95 H 90 L 06/12/16 13:14 83 123/64 98 06/12/16 13:02 90 117/62 93 L 06/12/16 13:00 89 92 L Intake and Output (Last 8hrs): Intake & Output 06/12/16 06/12/16 06/12/16 06:59 14:59 22:59 Intake Total 722.4 189.5 50 Output Total 985 355 Balance -262.6 -165.5 50 Weight 307 lb 1.663 oz Intake: Intake, IV Amount 162.4 119.5 0 Right Internal Jugular 62.4 19.5 Right Proximal Port 100 Internal Jugular Right Distal Port 100 0 Internal Jugular Oral 50 Tube Feeding 560 70 Output: Urine 985 355 Urethral ([place]) 985 355 - Physical Exam Head: Positive for: Atraumatic, Normocephalic Pupils: Positive for: PERRL Conjunctiva: Positive for: Normal Mouth: Positive for: Moist Mucous Membranes Respiratory/Chest: Positive for: Clear to Auscultation Cardiovascular: Positive for: Regular Rate and Rhythm Abdomen: Positive for: Normal Bowel Sounds. Negative for: Tenderness, Distention Upper Extremity: Positive for: Edema Lower Extremity: Positive for: Edema, Swelling, Erythema Skin: Positive for: Warm, Dry - Medications Active Medications: Active Medications Generic Name Dose Route Start Last Admin Trade Name Freq PRN Reason Stop Dose Admin Acetaminophen 650 mg 06/11/16 23:28 06/11/16 23:59 Tylenol 650mg/20.3ml Solution Ud GT 650 mg Q6 PRN Administration Fever >100.4 F Acetylcysteine 4 ml 06/04/16 00:01 06/12/16 11:07 Acetylcysteine 20% PO Not Given BID [facility] Albuterol/Ipratropium 3 ml 06/12/16 13:24 Duoneb 3 Mg/0.5 Mg (3 Ml) Ud INH RQ6 PRN Wheezing Apixaban 5 mg 06/10/16 18:00 06/12/16 11:30 Eliquis PO Not Given BID [facility] Aspirin 81 mg 05/26/16 10:00 06/12/16 11:29 Aspirin Chewable PO 81 mg DAILY [facility] Administration Bacitracin 1 ea 06/12/16 18:00 Bacitracin TOP BID [facility] Calcium Acetate 667 mg 06/06/16 12:00 06/12/16 11:08 Phoslo GT Not Given TIDCC [facility] Famotidine 20 mg 06/04/16 11:45 06/12/16 11:27 Pepcid IVP 20 mg DAILY [facility] Administration Furosemide 40 mg 06/12/16 11:15 06/12/16 11:29 Lasix IVP 40 mg Q12 [facility] Administration Cefepime HCl 1 gm/ Sodium 100 mls @ 100 mls/hr 06/12/16 04:30 06/12/16 04:30 Chloride IVPB 100 mls/hr Q12H [facility] Administration Tigecycline 50 mg/ Dextrose 100 mls @ 100 mls/hr 06/12/16 22:00 IV Q12H [facility] Insulin Detemir 15 unit 06/11/16 16:57 06/12/16 04:38 Levemir SC 15 unit Q12H [facility] Administration Insulin Human Regular 0 unit 06/07/16 12:00 06/12/16 06:22 Novolin R SC 8 unit Q6 [facility] Administration Protocol Lorazepam 2 mg 06/06/16 14:53 06/08/16 22:08 Ativan IVP 2 mg Q6H PRN Administration Anxiety - Patient Studies Lab Studies: Microbiology Studies 06/10/16 16:00 Gram Stain - Final Trachasp Sputum Culture - Final NORMAL ORAL HIEN 06/10/16 16:00 Urine Culture - Final Urine Vancomycin Resistant E.faecium 06/10/16 04:00 Blood Culture - Preliminary Blood-Venous NO GROWTH AFTER 48 HOURS 06/10/16 04:00 Blood Culture - Preliminary Blood-Venous NO GROWTH AFTER 48 HOURS 06/10/16 16:15 Blood Culture - Preliminary Blood-During Dialysis NO GROWTH AFTER 24 HOURS 06/10/16 16:45 Blood Culture - Preliminary Blood-During Dialysis NO GROWTH AFTER 24 HOURS Lab Studies 06/12/16 06/12/16 06/12/16 Range/Units 12:08 06:18 06:05 WBC 19.5 H (4.8-10.8) K/uL RBC 4.30 L (4.40-5.90) Mil/uL Hgb 12.2 (12.0-18.0) g/dL Hct 38.1 (35.0-51.0) % MCV 88.8 (80.0-94.0) fL MCH 28.4 (27.0-31.0) pg MCHC 32.0 L (33.0-37.0) g/dL RDW 16.6 H (11.5-14.5) % Plt Count 184 (130-400) K/uL MPV 12.3 H (7.2-11.7) fL Neut % (Auto) 67.8 (50.0-75.0) % Lymph % (Auto) 14.6 L (20.0-40.0) % [place] % (Auto) 12.4 H (0.0-10.0) % Eos % (Auto) 4.4 H (0.0-4.0) % Baso % (Auto) 0.8 (0.0-2.0) % Neut # 13.2 H (1.8-7.0) K/uL Lymph # 2.9 (1.0-4.3) K/uL [place] # 2.4 H (0.0-0.8) K/uL Eos # 0.9 H (0.0-0.7) K/uL Baso # 0.2 (0.0-0.2) K/uL Puncture Site pCO2 (35-45) mm/Hg pO2 (80-100) mm/Hg HCO3 (21-28) mmol/L ABG pH (7.35-7.45) ABG Total CO2 (22-28) mmol/L ABG O2 Saturation (95-98) % ABG Base Excess (-2.0-3.0) mmol/L ABG Hemoglobin (11.7-17.4) g/dL ABG Carboxyhemoglobin (0.5-1.5) % POC ABG HHb (Measured) (0.0-5.0) % ABG Methemoglobin (0.0-3.0) % Philippe Test A-a O2 Difference mm/Hg Respiratory Index Hgb O2 Saturation (95.0-98.0) % FiO2 % Pressure Support CPAP Sodium 143 (132-148) mmol/L Potassium 4.0 (3.6-5.2) mmol/L Chloride 100 (98-107) mmol/L Carbon Dioxide 36 H (22-30) mmol/L Anion Gap 11 (10-20) BUN 59 H (9-20) mg/dL Creatinine 1.4 (0.8-1.5) MG/DL Est GFR ( Amer) > 60 Est GFR (Non-Af Amer) 55 POC Glucose (mg/dL) 254 H (65-110) mg/dL Random Glucose 322 H (75-110) mg/dL Calcium 7.8 L (8.6-10.4) mg/dl Phosphorus 3.6 (2.5-4.5) mg/dL Magnesium 1.8 (1.6-2.3) mg/dL Total Bilirubin 0.8 (0.2-1.3) mg/dL AST 36 (17-59) U/L ALT 53 (21-72) U/L Alkaline Phosphatase 206 H D (38-126) U/L Total Protein 5.1 L (6.3-8.3) g/dL Albumin 2.3 L (3.5-5.0) g/dL Globulin 2.8 (2.2-3.9) gm/dL Albumin/Globulin Ratio 0.8 L (1.0-2.1) Urine Color Yellow (YELLOW) Urine Clarity Hazy (Clear) Urine pH 5.0 (5.0-8.0) Ur Specific [place] 1.010 (1.003-1.030) Urine Protein 2+ H (NEGATIVE) mg/dL Urine Glucose (UA) 3+ H (Normal) mg/dL Urine Ketones Negative (NEGATIVE) mg/dL Urine Blood 1+ H (NEGATIVE) Urine Nitrate Negative (NEGATIVE) Urine Bilirubin Negative (NEGATIVE) Urine Urobilinogen Normal (0.2-1.0) mg/dL Ur Leukocyte Esterase Neg (Negative) Mert/uL Urine WBC (Auto) 10 H (0-5) /hpf Urine RBC (Auto) 8 H (0-3) /hpf Urine WBC Clumps (Auto) Rare H (NONE) /hpf Ur Squamous Epith Cells 5 (0-5) /hpf Urine Bacteria Many H (<OCC) Hyaline Casts 6-10 H (0-2) /lpf Granular Casts (Auto) 8 (0-1) /lpf 06/12/16 06/12/16 06/11/16 Range/Units 05:40 04:30 23:32 WBC (4.8-10.8) K/uL RBC (4.40-5.90) Mil/uL Hgb (12.0-18.0) g/dL Hct (35.0-51.0) % MCV (80.0-94.0) fL MCH (27.0-31.0) pg MCHC (33.0-37.0) g/dL RDW (11.5-14.5) % Plt Count (130-400) K/uL MPV (7.2-11.7) fL Neut % (Auto) (50.0-75.0) % Lymph % (Auto) (20.0-40.0) % [place] % (Auto) (0.0-10.0) % Eos % (Auto) (0.0-4.0) % Baso % (Auto) (0.0-2.0) % Neut # (1.8-7.0) K/uL Lymph # (1.0-4.3) K/uL [place] # (0.0-0.8) K/uL Eos # (0.0-0.7) K/uL Baso # (0.0-0.2) K/uL Puncture Site Rr pCO2 56 H (35-45) mm/Hg pO2 87 (80-100) mm/Hg HCO3 31.9 H (21-28) mmol/L ABG pH 7.41 (7.35-7.45) ABG Total CO2 37.2 H (22-28) mmol/L ABG O2 Saturation 98.0 (95-98) % ABG Base Excess 9.0 H (-2.0-3.0) mmol/L ABG Hemoglobin 12.6 (11.7-17.4) g/dL ABG Carboxyhemoglobin 2.1 H (0.5-1.5) % POC ABG HHb (Measured) 1.9 (0.0-5.0) % ABG Methemoglobin 1.1 (0.0-3.0) % Philippe Test Pos A-a O2 Difference 128.0 mm/Hg Respiratory Index 1.5 Hgb O2 Saturation 95.0 (95.0-98.0) % FiO2 40.0 % Pressure Support 12 CPAP 8 Sodium (132-148) mmol/L Potassium (3.6-5.2) mmol/L Chloride (98-107) mmol/L Carbon Dioxide (22-30) mmol/L Anion Gap (10-20) BUN (9-20) mg/dL Creatinine (0.8-1.5) MG/DL Est GFR ( Amer) Est GFR (Non-Af Amer) POC Glucose (mg/dL) 337 H 293 H (65-110) mg/dL Random Glucose (75-110) mg/dL Calcium (8.6-10.4) mg/dl Phosphorus (2.5-4.5) mg/dL Magnesium (1.6-2.3) mg/dL Total Bilirubin (0.2-1.3) mg/dL AST (17-59) U/L ALT (21-72) U/L Alkaline Phosphatase (38-126) U/L Total Protein (6.3-8.3) g/dL Albumin (3.5-5.0) g/dL Globulin (2.2-3.9) gm/dL Albumin/Globulin Ratio (1.0-2.1) Urine Color (YELLOW) Urine Clarity (Clear) Urine pH (5.0-8.0) Ur Specific [place] (1.003-1.030) Urine Protein (NEGATIVE) mg/dL Urine Glucose (UA) (Normal) mg/dL Urine Ketones (NEGATIVE) mg/dL Urine Blood (NEGATIVE) Urine Nitrate (NEGATIVE) Urine Bilirubin (NEGATIVE) Urine Urobilinogen (0.2-1.0) mg/dL Ur Leukocyte Esterase (Negative) Mert/uL Urine WBC (Auto) (0-5) /hpf Urine RBC (Auto) (0-3) /hpf Urine WBC Clumps (Auto) (NONE) /hpf Ur Squamous Epith Cells (0-5) /hpf Urine Bacteria (<OCC) Hyaline Casts (0-2) /lpf Granular Casts (Auto) (0-1) /lpf 06/11/ Range/Units 17:46 WBC (4.8-10.8) K/uL RBC (4.40-5.90) Mil/uL Hgb (12.0-18.0) g/dL Hct (35.0-51.0) % MCV (80.0-94.0) fL MCH (27.0-31.0) pg MCHC (33.0-37.0) g/dL RDW (11.5-14.5) % Plt Count (130-400) K/uL MPV (7.2-11.7) fL Neut % (Auto) (50.0-75.0) % Lymph % (Auto) (20.0-40.0) % [place] % (Auto) (0.0-10.0) % Eos % (Auto) (0.0-4.0) % Baso % (Auto) (0.0-2.0) % Neut # (1.8-7.0) K/uL Lymph # (1.0-4.3) K/uL [place] # (0.0-0.8) K/uL Eos # (0.0-0.7) K/uL Baso # (0.0-0.2) K/uL Puncture Site pCO2 (35-45) mm/Hg pO2 (80-100) mm/Hg HCO3 (21-28) mmol/L ABG pH (7.35-7.45) ABG Total CO2 (22-28) mmol/L ABG O2 Saturation (95-98) % ABG Base Excess (-2.0-3.0) mmol/L ABG Hemoglobin (11.7-17.4) g/dL ABG Carboxyhemoglobin (0.5-1.5) % POC ABG HHb (Measured) (0.0-5.0) % ABG Methemoglobin (0.0-3.0) % Philippe Test A-a O2 Difference mm/Hg Respiratory Index Hgb O2 Saturation (95.0-98.0) % FiO2 % Pressure Support CPAP Sodium (132-148) mmol/L Potassium (3.6-5.2) mmol/L Chloride (98-107) mmol/L Carbon Dioxide (22-30) mmol/L Anion Gap (10-20) BUN (9-20) mg/dL Creatinine (0.8-1.5) MG/DL Est GFR ( Amer) Est GFR (Non-Af Amer) POC Glucose (mg/dL) 293 H (65-110) mg/dL Random Glucose (75-110) mg/dL Calcium (8.6-10.4) mg/dl Phosphorus (2.5-4.5) mg/dL Magnesium (1.6-2.3) mg/dL Total Bilirubin (0.2-1.3) mg/dL AST (17-59) U/L ALT (21-72) U/L Alkaline Phosphatase (38-126) U/L Total Protein (6.3-8.3) g/dL Albumin (3.5-5.0) g/dL Globulin (2.2-3.9) gm/dL Albumin/Globulin Ratio (1.0-2.1) Urine Color (YELLOW) Urine Clarity (Clear) Urine pH (5.0-8.0) Ur Specific [place] (1.003-1.030) Urine Protein (NEGATIVE) mg/dL Urine Glucose (UA) (Normal) mg/dL Urine Ketones (NEGATIVE) mg/dL Urine Blood (NEGATIVE) Urine Nitrate (NEGATIVE) Urine Bilirubin (NEGATIVE) Urine Urobilinogen (0.2-1.0) mg/dL Ur Leukocyte Esterase (Negative) Mert/uL Urine WBC (Auto) (0-5) /hpf Urine RBC (Auto) (0-3) /hpf Urine WBC Clumps (Auto) (NONE) /hpf Ur Squamous Epith Cells (0-5) /hpf Urine Bacteria (<OCC) Hyaline Casts (0-2) /lpf Granular Casts (Auto) (0-1) /lpf Laboratory Results - last 24 hr 06/11/16 06/11/16 06/12/16 17:46 23:32 04:30 WBC RBC Hgb Hct MCV MCH MCHC RDW Plt Count MPV Neut % (Auto) Lymph % (Auto) [place] % (Auto) Eos % (Auto) Baso % (Auto) Neut # Lymph # [place] # Eos # Baso # Puncture Site Rr pCO2 56 H pO2 87 HCO3 31.9 H ABG pH 7.41 ABG Total CO2 37.2 H ABG O2 Saturation 98.0 ABG Base Excess 9.0 H ABG Hemoglobin 12.6 ABG Carboxyhemoglobin 2.1 H POC ABG HHb (Measured) 1.9 ABG Methemoglobin 1.1 Philippe Test Pos A-a O2 Difference 128.0 Respiratory Index 1.5 Hgb O2 Saturation 95.0 FiO2 40.0 Pressure Support 12 CPAP 8 Sodium Potassium Chloride Carbon Dioxide Anion Gap BUN Creatinine Est GFR ( Amer) Est GFR (Non-Af Amer) POC Glucose (mg/dL) 293 H 293 H Random Glucose Calcium Phosphorus Magnesium Total Bilirubin AST ALT Alkaline Phosphatase Total Protein Albumin Globulin Albumin/Globulin Ratio Urine Color Urine Clarity Urine pH Ur Specific [place] Urine Protein Urine Glucose (UA) Urine Ketones Urine Blood Urine Nitrate Urine Bilirubin Urine Urobilinogen Ur Leukocyte Esterase Urine WBC (Auto) Urine RBC (Auto) Urine WBC Clumps (Auto) Ur Squamous Epith Cells Urine Bacteria Hyaline Casts Granular Casts (Auto) 06/12/16 06/12/16 06/12/16 05:40 06:05 06:18 WBC 19.5 H RBC 4.30 L Hgb 12.2 Hct 38.1 MCV 88.8 MCH 28.4 MCHC 32.0 L RDW 16.6 H Plt Count 184 MPV 12.3 H Neut % (Auto) 67.8 Lymph % (Auto) 14.6 L [place] % (Auto) 12.4 H Eos % (Auto) 4.4 H Baso % (Auto) 0.8 Neut # 13.2 H Lymph # 2.9 [place] # 2.4 H Eos # 0.9 H Baso # 0.2 Puncture Site pCO2 pO2 HCO3 ABG pH ABG Total CO2 ABG O2 Saturation ABG Base Excess ABG Hemoglobin ABG Carboxyhemoglobin POC ABG HHb (Measured) ABG Methemoglobin Philippe Test A-a O2 Difference Respiratory Index Hgb O2 Saturation FiO2 Pressure Support CPAP Sodium 143 Potassium 4.0 Chloride 100 Carbon Dioxide 36 H Anion Gap 11 BUN 59 H Creatinine 1.4 Est GFR ( Amer) > 60 Est GFR (Non-Af Amer) 55 POC Glucose (mg/dL) 337 H Random Glucose 322 H Calcium 7.8 L Phosphorus 3.6 Magnesium 1.8 Total Bilirubin 0.8 AST 36 ALT 53 Alkaline Phosphatase 206 H D Total Protein 5.1 L Albumin 2.3 L Globulin 2.8 Albumin/Globulin Ratio 0.8 L Urine Color Yellow Urine Clarity Hazy Urine pH 5.0 Ur Specific [place] 1.010 Urine Protein 2+ H Urine Glucose (UA) 3+ H Urine Ketones Negative Urine Blood 1+ H Urine Nitrate Negative Urine Bilirubin Negative Urine Urobilinogen Normal Ur Leukocyte Esterase Neg Urine WBC (Auto) 10 H Urine RBC (Auto) 8 H Urine WBC Clumps (Auto) Rare H Ur Squamous Epith Cells 5 Urine Bacteria Many H Hyaline Casts 6-10 H Granular Casts (Auto) 8 06/12/16 12:08 WBC RBC Hgb Hct MCV MCH MCHC RDW Plt Count MPV Neut % (Auto) Lymph % (Auto) [place] % (Auto) Eos % (Auto) Baso % (Auto) Neut # Lymph # [place] # Eos # Baso # Puncture Site pCO2 pO2 HCO3 ABG pH ABG Total CO2 ABG O2 Saturation ABG Base Excess ABG Hemoglobin ABG Carboxyhemoglobin POC ABG HHb (Measured) ABG Methemoglobin Philippe Test A-a O2 Difference Respiratory Index Hgb O2 Saturation FiO2 Pressure Support CPAP Sodium Potassium Chloride Carbon Dioxide Anion Gap BUN Creatinine Est GFR ( Amer) Est GFR (Non-Af Amer) POC Glucose (mg/dL) 254 H Random Glucose Calcium Phosphorus Magnesium Total Bilirubin AST ALT Alkaline Phosphatase Total Protein Albumin Globulin Albumin/Globulin Ratio Urine Color Urine Clarity Urine pH Ur Specific [place] Urine Protein Urine Glucose (UA) Urine Ketones Urine Blood Urine Nitrate Urine Bilirubin Urine Urobilinogen Ur Leukocyte Esterase Urine WBC (Auto) Urine RBC (Auto) Urine WBC Clumps (Auto) Ur Squamous Epith Cells Urine Bacteria Hyaline Casts Granular Casts (Auto) Fingerstick Blood Sugar Results: 337 Assessment/Plan (1) Acute respiratory failure Assessment and plan: 45 year old male with PMHx of COPD, asthma, DM, HN, DVT in RLE, NSTEMI in 2015, gallstones, liver cirrhosis, and CKD presents with complaint of aright LE pain and swelling. Pt recently was admitted to [facility] and found to have a DVT in his right lower extremity and discharged on Xarelto. Repeat venous doppler is consistent with extensive right femoral and iliac vein DVT. ( 06/04) Code Blue was called on due to pt. being unresponsive. Chest compressions were started. Patient intubated and transferred to intensive care unit. intubation (06/04/16). Extubated (06/12/16) Neuro: titrated off all sedation, now on precedex. Pulm: Acute respiratory failure resolved, extubating today. patient most likely has obesity hypoventilation and possibly obstructive sleep apnea, known history of asthma stopping solumedrol, duonebs prn, starting singulair. Extubated to CPAP, will need CPAP/BIPAP at night. Sleep study as outpatient. CV: Hemodynamically stable Hem: Lower extremity DVT now on Eliquis Renal: patient making urine, creatinine normalized, stopping dialysis. Endo: DM type II, on regular insulin sliding scale, levemir 15 units q12h. Steroids also causing hyperglycemia. GI: Nothing by mouth, speech and swallow eval. Encouraged weight loss to patient as it effecting his respiratory function. ID: Empiric coverage with Cefepime. VRE in urine, started on Tigecycline. ID - Dr. Marsh DVT proph - Eliquis GI proph - Pepcid PATRICIA TLC (06/09) joseph for strict I/O's during acute illness Code status - full code Current Visit: Yes Status: Acute
[2016-06-12] MEDS: Bacitracin 500 Units/gm Oint Foilpak UD TOP SCH (18:22)
[2016-06-12] MEDS: Tigecycline 50 MG in Dextrose 5% In Water 100 ML IV SCH (21:55)
[2016-06-13] MEDS: (Novolin R) Insulin Human Regular 100 units/ml vial SC SCH ×5 (00:15→21:18)
--- NOTE | 2016-06-13 02:01 | CP.PCM.PN ---
Subjective - Date & Time of Evaluation Date of Evaluation: 06/12/16 Time of Evaluation: 12:00 - Subjective Subjective: On bipap Objective - Vital Signs/Intake and Output Vital Signs (last 24 hours): Temp Pulse Resp BP Pulse Ox 98.6 F 79 14 136/74 95 06/13/16 00:00 06/13/16 01:14 06/12/16 12:14 06/13/16 01:14 06/13/16 01:00 Intake and Output: 06/12/16 06/13/16 18:59 06:59 Intake Total 339.5 100 Output Total 356 1700 Balance -16.5 -1600 - Medications Medications: Current Medications Acetaminophen (Tylenol 650mg/20.3ml Solution Ud) 650 mg GT Q6 PRN PRN Reason: Fever >100.4 F Last Admin: 06/11/16 23:59 Dose: 650 mg Acetylcysteine (Acetylcysteine 20%) 4 ml PO BID [facility] Last Admin: 06/12/16 18:09 Dose: Not Given Albuterol/Ipratropium (Duoneb 3 Mg/0.5 Mg (3 Ml) Ud) 3 ml INH RQ6 PRN PRN Reason: Wheezing Apixaban (Eliquis) 5 mg PO BID [facility] Last Admin: 06/12/16 18:22 Dose: 5 mg Aspirin (Aspirin Chewable) 81 mg PO DAILY [facility] Last Admin: 06/12/16 11:29 Dose: 81 mg Bacitracin (Bacitracin) 1 ea TOP BID [facility] Last Admin: 06/12/16 18:22 Dose: 1 ea Calcium Acetate (Phoslo) 667 mg GT TIDCC [facility] Last Admin: 06/12/16 18:10 Dose: Not Given Famotidine (Pepcid) 20 mg IVP DAILY [facility] Last Admin: 06/12/16 11:27 Dose: 20 mg Furosemide (Lasix) 40 mg IVP Q12 [facility] Last Admin: 06/12/16 21:50 Dose: 40 mg Cefepime HCl 1 gm/ Sodium (Chloride) 100 mls @ 100 mls/hr IVPB Q12H [facility] Last Admin: 06/12/16 16:19 Dose: 100 mls/hr Tigecycline 50 mg/ Dextrose 100 mls @ 100 mls/hr IV Q12H [facility] Last Admin: 03/26/17 21:55 Dose: 100 mls/hr Insulin Detemir (Levemir) 15 unit SC Q12H [facility] Last Admin: 06/12/16 18:19 Dose: 15 unit Insulin Human Regular (Novolin R) 0 unit SC Q6 [facility] PRN Reason: Protocol Last Admin: 06/12/16 18:20 Dose: 4 unit Lorazepam (Ativan) 2 mg IVP Q6H PRN PRN Reason: Anxiety Last Admin: 06/08/16 22:08 Dose: 2 mg - Labs Labs: 06/12/16 06:18 06/12/16 06:18 PT 13.9 SECONDS (9.7-12.2) H 05/27/16 09:38 INR 1.2 05/27/16 09:38 APTT 65 SECONDS (21-34) H 05/29/16 10:50 - Head Exam Head Exam: ATRAUMATIC - Eye Exam Eye Exam: Normal appearance - ENT Exam ENT Exam: Mucous Membranes Dry - Respiratory Exam Respiratory Exam: NORMAL BREATHING PATTERN - Cardiovascular Exam Cardiovascular Exam: +S1, +S2 - GI/Abdominal Exam GI & Abdominal Exam: Normal Bowel Sounds - Extremities Exam Extremities Exam: Pedal Edema Assessment and Plan (1) Deep venous thrombosis of lower extremity Assessment & Plan: therapeutic anticoagulation Status: Acute (2) Leukocytosis Assessment & Plan: on antibiotics Status: Acute (3) Coagulopathy Assessment & Plan: anticoagulation Status: Acute
[2016-06-13] MEDS: Cefepime 1 GM in Sodium Chloride 0.9% 100 ML IVPB SCH (04:55)
[2016-06-13] MEDS: Insulin Detemir 100 units/ml Vial (Levemir) SC SCH ×2 (04:55→17:44)
[2016-06-13 06:43] LABS: BASO # 0.2 K/uL (0.0-0.2); BASO % 1.1 % (0.0-2.0); EOS % 4.9 % (0.0-4.0); HEMATOCRIT 37.5 % (35.0-51.0); LYMPH # 3.7 K/uL (1.0-4.3); LYMPH % 17.9 % (20.0-40.0); MEAN CORPUSCULAR HEMOGLOBIN 28.5 pg (27.0-31.0); MEAN CORPUSCULAR HGB CONC 32.1 g/dL (33.0-37.0); MEAN PLATELET VOLUME 11.8 fL (7.2-11.7); MONO % 9.6 % (0.0-10.0); NRBC % 0.1 % (0.0-2.0); RED CELL DISTRIBUTION WIDTH 16.3 % (11.5-14.5); WHITE BLOOD COUNT 20.5 K/uL (4.8-10.8)
[2016-06-13 07:05] LABS: CHLORIDE 103 mmol/L (98-107)
[2016-06-13 07:06] LABS: POTASSIUM 3.3 mmol/L (3.6-5.2); SODIUM 144 mmol/L (132-148)
[2016-06-13 07:07] LABS: GFR AFRICAN-AMERICAN > 60
[2016-06-13 07:08] LABS: ALB/GLOB RATIO 0.8 (1.0-2.1); ALKALINE PHOSPHATASE 182 U/L (38-126); ALT/SGPT 58 U/L (21-72); AST/SGOT 41 U/L (17-59); BILIRUBIN,TOTAL 1.2 mg/dL (0.2-1.3); BLOOD UREA NITROGEN 58 mg/dL (9-20); CARBON DIOXIDE 34 mmol/L (22-30); GLUCOSE,RANDOM 83 mg/dL (75-110); TOTAL PROTEIN 5.4 g/dL (6.3-8.3)
[2016-06-13 07:09] LABS: MAGNESIUM 1.5 mg/dL (1.6-2.3)
[2016-06-13] MEDS: Albuterol-Ipratrop 3 mg / 0.5 (3 ml) UD INH PRN ×2 (07:36→13:28)
--- NOTE | 2016-06-13 07:53 | CP.CCUPN ---
Addendum entered and electronically signed by Ryan Arreguin DO 06/13/16 16 :09: Disp: Clinically stable for transfer to [facility] for continued monitoring. Original Note: <Ryan Arreguin - Last Filed: 06/13/16 16:02> CCU Subjective - Physician Review Subjective (Free Text): 06/06/16 15:56 Pt seen and examined. He is intubated and sedated at this time. Patient family friend present bedside. No acute events overnight per nursing. An ROS could nto be obtained at this time due to patient's clinical status. 06/07/16 14:14 Pt seen and examined. He is intubated and sedated at this time. Patient family friend present bedside. No acute events overnight per nursing. Dr. Vargas ( Medicine hospitalist) had extensive discussion with patient's family yesterday regarding patient's status. An ROS could not be obtained at this time due to patient's clinical status. 06/09/16 09:27 Patient was seen and examined at bedside. Pt self extubated this morning shortly before rounds as noted by nursing team. Patient was a difficult inubation in light of patient's body habitus. Patient on propofol drip however still actively moving limbs. 2 mg Versed, 20 mg Etomidate, 100 mg Succinylcholine given IV in attempt to sedate patient. Movements likely continued due to morbid obesity. No acute events overnight per nursing. ROS could not be obtained at this time due to patient's clinical status. Pt received HD yesterday with 2.5L removed. He tolerated well. 06/13/16 15:57 Pt seen and examined in no acute distress. Patient initially quite somnolent but more alert on second evaluation. Patient had no acute events overnight. He denies any chest pain, palpitations, subjective fevers or chills currently, nausea, vomiting, or urinary issues at this time. CCU Objective - Vital Signs / Intake & Output Vital Signs (Last 4 hours): Vital Signs Temp Pulse BP Pulse Ox 06/13/16 06:15 90 110/80 06/13/16 06:13 77 96 06/13/16 05:14 77 129/78 100 06/13/16 05:02 77 131/79 99 06/13/16 05:00 77 97 06/13/16 04:00 98 F 80 99 Intake and Output (Last 8hrs): Intake & Output 06/12/16 06/13/16 06/13/16 22:59 06:59 14:59 Intake Total 250 100 Output Total 1001 1000 Balance -751 -900 Weight 293 lb 2 oz Intake: Intake, IV Amount 200 100 Right Distal Port 200 100 Internal Jugular Oral 50 Output: Urine 1000 1000 Urine, Voided 300 1000 Urethral (Campbell) 700 Stool 1 Other: # Bowel Movements 1 1 - Physical Exam Head: Positive for: Atraumatic, Normocephalic Pupils: Positive for: PERRL Conjunctiva: Positive for: Normal Mouth: Positive for: Moist Mucous Membranes Respiratory/Chest: Positive for: Clear to Auscultation Cardiovascular: Positive for: Regular Rate and Rhythm Abdomen: Positive for: Normal Bowel Sounds. Negative for: Tenderness, Distention Upper Extremity: Positive for: Edema Lower Extremity: Positive for: Edema, Swelling, Erythema Skin: Positive for: Warm, Dry - Medications Active Medications: Active Medications Generic Name Dose Route Start Last Admin Trade Name Freq PRN Reason Stop Dose Admin Acetaminophen 650 mg 06/11/16 23:28 06/11/16 23:59 Tylenol 650mg/20.3ml Solution Ud GT 650 mg Q6 PRN Administration Fever >100.4 F Acetylcysteine 4 ml 06/04/16 00:01 06/12/16 18:09 Acetylcysteine 20% PO Not Given BID ANABELLA Albuterol/Ipratropium 3 ml 06/12/16 13:24 06/13/16 07:36 Duoneb 3 Mg/0.5 Mg (3 Ml) Ud INH 3 ml RQ6 PRN Administration Wheezing Apixaban 5 mg 06/10/16 18:00 06/12/16 18:22 Eliquis PO 5 mg BID ANABELLA Administration Aspirin 81 mg 05/26/16 10:00 06/12/16 11:29 Aspirin Chewable PO 81 mg DAILY ANABELLA Administration Bacitracin 1 ea 06/12/16 18:00 06/12/16 18:22 Bacitracin TOP 1 ea BID ANABELLA Administration Calcium Acetate 667 mg 06/06/16 12:00 06/12/16 18:10 Phoslo GT Not Given TIDCC ANABELLA Famotidine 20 mg 06/04/16 11:45 06/12/16 11:27 Pepcid IVP 20 mg DAILY ANABELLA Administration Furosemide 40 mg 06/12/16 11:15 06/12/16 21:50 Lasix IVP 40 mg Q12 ANABELLA Administration Cefepime HCl 1 gm/ Sodium 100 mls @ 100 mls/hr 06/12/16 04:30 06/13/16 04:55 Chloride IVPB 100 mls/hr Q12H ANABELLA Administration Tigecycline 50 mg/ Dextrose 100 mls @ 100 mls/hr 06/12/16 22:00 06/12/16 21:55 IV 100 mls/hr Q12H ANABELLA Administration Insulin Detemir 15 unit 06/11/16 16:57 06/13/16 04:55 Levemir SC 15 unit Q12H ANABELLA Administration Insulin Human Regular 0 unit 06/07/16 12:00 06/13/16 06:11 Novolin R SC Not Given Q6 [facility] Protocol Lorazepam 2 mg 06/06/16 14:53 06/08/16 22:08 Ativan IVP 2 mg Q6H PRN Administration Anxiety - Patient Studies Lab Studies: Microbiology Studies 06/10/16 16:15 Blood Culture - Preliminary Blood-During Dialysis NO GROWTH AFTER 48 HOURS 06/10/16 16:45 Blood Culture - Preliminary Blood-During Dialysis NO GROWTH AFTER 48 HOURS 06/10/16 16:00 Gram Stain - Final Trachasp Sputum Culture - Final NORMAL ORAL HIEN 06/10/16 16:00 Urine Culture - Final Urine Vancomycin Resistant E.faecium 06/10/16 04:00 Blood Culture - Preliminary Blood-Venous NO GROWTH AFTER 48 HOURS 06/10/16 04:00 Blood Culture - Preliminary Blood-Venous NO GROWTH AFTER 48 HOURS Lab Studies 06/13/16 06/13/16 06/13/16 Range/Units 06:34 06:33 06:01 WBC 20.5 H (4.8-10.8) K/uL RBC 4.22 L (4.40-5.90) Mil/uL Hgb 12.0 (12.0-18.0) g/dL Hct 37.5 (35.0-51.0) % MCV 89.0 (80.0-94.0) fL MCH 28.5 (27.0-31.0) pg MCHC 32.1 L (33.0-37.0) g/dL RDW 16.3 H (11.5-14.5) % Plt Count 193 (130-400) K/uL MPV 11.8 H (7.2-11.7) fL Neut % (Auto) 66.5 (50.0-75.0) % Lymph % (Auto) 17.9 L (20.0-40.0) % [place] % (Auto) 9.6 (0.0-10.0) % Eos % (Auto) 4.9 H (0.0-4.0) % Baso % (Auto) 1.1 (0.0-2.0) % Neut # 13.6 H (1.8-7.0) K/uL Lymph # 3.7 (1.0-4.3) K/uL [place] # 2.0 H (0.0-0.8) K/uL Eos # 1.0 H (0.0-0.7) K/uL Baso # 0.2 (0.0-0.2) K/uL Sodium 144 (132-148) mmol/L Potassium 3.3 L (3.6-5.2) mmol/L Chloride 103 (98-107) mmol/L Carbon Dioxide 34 H (22-30) mmol/L Anion Gap 10 (10-20) BUN 58 H (9-20) mg/dL Creatinine 1.1 (0.8-1.5) MG/DL Est GFR ( Amer) > 60 Est GFR (Non-Af Amer) > 60 POC Glucose (mg/dL) 77 (65-110) mg/dL Random Glucose 83 (75-110) mg/dL Calcium 8.0 L (8.6-10.4) mg/dl Phosphorus 4.0 (2.5-4.5) mg/dL Magnesium 1.5 L (1.6-2.3) mg/dL Total Bilirubin 1.2 (0.2-1.3) mg/dL AST 41 (17-59) U/L ALT 58 (21-72) U/L Alkaline Phosphatase 182 H (38-126) U/L Total Protein 5.4 L (6.3-8.3) g/dL Albumin 2.4 L (3.5-5.0) g/dL Globulin 3.1 (2.2-3.9) gm/dL Albumin/Globulin Ratio 0.8 L (1.0-2.1) 06/13/16 06/12/16 06/12/16 Range/Units 00:03 17:49 12:08 WBC (4.8-10.8) K/uL RBC (4.40-5.90) Mil/uL Hgb (12.0-18.0) g/dL Hct (35.0-51.0) % MCV (80.0-94.0) fL MCH (27.0-31.0) pg MCHC (33.0-37.0) g/dL RDW (11.5-14.5) % Plt Count (130-400) K/uL MPV (7.2-11.7) fL Neut % (Auto) (50.0-75.0) % Lymph % (Auto) (20.0-40.0) % [place] % (Auto) (0.0-10.0) % Eos % (Auto) (0.0-4.0) % Baso % (Auto) (0.0-2.0) % Neut # (1.8-7.0) K/uL Lymph # (1.0-4.3) K/uL [place] # (0.0-0.8) K/uL Eos # (0.0-0.7) K/uL Baso # (0.0-0.2) K/uL Sodium (132-148) mmol/L Potassium (3.6-5.2) mmol/L Chloride (98-107) mmol/L Carbon Dioxide (22-30) mmol/L Anion Gap (10-20) BUN (9-20) mg/dL Creatinine (0.8-1.5) MG/DL Est GFR ( Amer) Est GFR (Non-Af Amer) POC Glucose (mg/dL) 140 H 218 H 254 H (65-110) mg/dL Random Glucose (75-110) mg/dL Calcium (8.6-10.4) mg/dl Phosphorus (2.5-4.5) mg/dL Magnesium (1.6-2.3) mg/dL Total Bilirubin (0.2-1.3) mg/dL AST (17-59) U/L ALT (21-72) U/L Alkaline Phosphatase (38-126) U/L Total Protein (6.3-8.3) g/dL Albumin (3.5-5.0) g/dL Globulin (2.2-3.9) gm/dL Albumin/Globulin Ratio (1.0-2.1) Laboratory Results - last 24 hr 06/12/16 06/12/16 06/13/16 12:08 17:49 00:03 WBC RBC Hgb Hct MCV MCH MCHC RDW Plt Count MPV Neut % (Auto) Lymph % (Auto) [place] % (Auto) Eos % (Auto) Baso % (Auto) Neut # Lymph # [place] # Eos # Baso # Sodium Potassium Chloride Carbon Dioxide Anion Gap BUN Creatinine Est GFR ( Amer) Est GFR (Non-Af Amer) POC Glucose (mg/dL) 254 H 218 H 140 H Random Glucose Calcium Phosphorus Magnesium Total Bilirubin AST ALT Alkaline Phosphatase Total Protein Albumin Globulin Albumin/Globulin Ratio 06/13/16 06/13/16 06/13/16 06:01 06:33 06:34 WBC 20.5 H RBC 4.22 L Hgb 12.0 Hct 37.5 MCV 89.0 MCH 28.5 MCHC 32.1 L RDW 16.3 H Plt Count 193 MPV 11.8 H Neut % (Auto) 66.5 Lymph % (Auto) 17.9 L [place] % (Auto) 9.6 Eos % (Auto) 4.9 H Baso % (Auto) 1.1 Neut # 13.6 H Lymph # 3.7 [place] # 2.0 H Eos # 1.0 H Baso # 0.2 Sodium 144 Potassium 3.3 L Chloride 103 Carbon Dioxide 34 H Anion Gap 10 BUN 58 H Creatinine 1.1 Est GFR ( Amer) > 60 Est GFR (Non-Af Amer) > 60 POC Glucose (mg/dL) 77 Random Glucose 83 Calcium 8.0 L Phosphorus 4.0 Magnesium 1.5 L Total Bilirubin 1.2 AST 41 ALT 58 Alkaline Phosphatase 182 H Total Protein 5.4 L Albumin 2.4 L Globulin 3.1 Albumin/Globulin Ratio 0.8 L Fingerstick Blood Sugar Results: 293 Review of Systems - Review of Systems Review of Systems: see subjective Assessment/Plan - Assessment and Plan (Free Text) Assessment: 45 year old male with PMHx of COPD, asthma, DM, HN, DVT in RLE, NSTEMI in 2015, gallstones, liver cirrhosis, and CKD presents with complaint of aright LE pain and swelling. Pt recently was admitted to [facility] and found to have a DVT in his right lower extremity and discharged on Xarelto. Repeat venous doppler is consistent with extensive right femoral and iliac vein DVT. ( 06/04) Code Blue was called on due to pt. being unresponsive. Chest compressions were started. Patient intubated and transferred to intensive care unit. intubation (06/04/16). Extubated (06/12/16) Plan: Neuro: aaox3 in nad titrated off all sedation, Pulm: Acute respiratory failure resolved, extubated 06/12. patient most likely has obesity hypoventilation and possibly obstructive sleep apnea, known history of asthma stopping solumedrol, duonebs prn, starting singulair. Extubated to CPAP , will need CPAP/BIPAP at night. Sleep study as outpatient. Pt to be counseled CV: Hemodynamically stable ASA, Eliquis Hem: Lower extremity DVT now on Eliquis Renal: Lasix patient making urine, creatinine normalized, stopping dialysis. Hypokalemia- Hypomagnesemia- repleted Endo: DM type II, on regular insulin sliding scale, levemir 15 units q12h. Steroids also causing hyperglycemia. GI: Nothing by mouth, speech and swallow eval. Encouraged weight loss to patient as it effecting his respiratory function. ID: Empiric coverage with Cefepime. VRE in urine, started on Tigecycline. ID - Dr. Marsh Prophylaxis: DVT proph - Eliquis GI proph - Pepcid <Dae Long - Last Filed: 06/13/16 18:58> CCU Objective - Vital Signs / Intake & Output Vital Signs (Last 4 hours): Vital Signs Temp Pulse Resp BP Pulse Ox 06/13/16 17:55 77 18 129/84 98 06/13/16 17:00 74 18 126/71 98 06/13/16 16:45 156/96 H 06/13/16 16:00 97.7 F 71 16 118/66 99 06/13/16 15:00 81 17 128/71 99 Intake and Output (Last 8hrs): Intake & Output 06/13/16 06/13/16 06/13/16 06:59 14:59 22:59 Intake Total 100 980 300 Output Total 1100 2075 600 Balance -1000 -1095 -300 Weight 293 lb 2 oz Intake: Intake, IV Amount 100 500 Right Distal Port 100 300 Internal Jugular Right Medial Port 200 Internal Jugular Oral 480 300 Output: Urine 1100 2075 600 Urine, Voided 1100 2075 600 Other: # Voids Urine, Voided 1 # Bowel Movements 1 1 - Medications Active Medications: Active Medications Generic Name Dose Route Start Last Admin Trade Name Freq PRN Reason Stop Dose Admin Acetaminophen 650 mg 06/11/16 23:28 06/11/16 23:59 Tylenol 650mg/20.3ml Solution Ud GT 650 mg Q6 PRN Administration Fever >100.4 F Acetylcysteine 4 ml 06/04/16 00:01 06/13/16 17:43 Acetylcysteine 20% PO 4 ml BID ANABELLA Administration Albuterol/Ipratropium 3 ml 06/12/16 13:24 06/13/16 13:28 Duoneb 3 Mg/0.5 Mg (3 Ml) Ud INH 3 ml RQ6 PRN Administration Wheezing Apixaban 5 mg 06/10/16 18:00 06/13/16 17:43 Eliquis PO 5 mg BID ANABELLA Administration Aspirin 81 mg 05/26/16 10:00 06/13/16 10:04 Aspirin Chewable PO 81 mg DAILY ANABELLA Administration Bacitracin 1 ea 06/12/16 18:00 06/13/16 17:43 Bacitracin TOP 1 ea BID ANABELLA Administration Famotidine 20 mg 06/04/16 11:45 06/13/16 10:04 Pepcid IVP 20 mg DAILY ANABELLA Administration Furosemide 40 mg 06/12/16 11:15 06/13/16 10:03 Lasix IVP 40 mg Q12 ANABELLA Administration Tigecycline 50 mg/ Dextrose 100 mls @ 100 mls/hr 06/12/16 22:00 06/13/16 10:15 IV 100 mls/hr Q12H ANABELLA Administration Insulin Detemir 15 unit 06/11/16 16:57 06/13/16 17:44 Levemir SC 15 unit Q12H ANABELLA Administration Insulin Human Regular 0 unit 06/13/16 11:30 06/13/16 17:44 Novolin R SC Not Given ACHS ANABELLA Protocol - Patient Studies Lab Studies: Microbiology Studies 06/10/16 16:15 Blood Culture - Preliminary Blood-During Dialysis NO GROWTH AFTER 3 DAYS 06/10/16 16:45 Blood Culture - Preliminary Blood-During Dialysis NO GROWTH AFTER 3 DAYS 06/11/16 20:15 Urine Culture - Final Urine,Campbell Vancomycin Resistant E.faecium 06/10/16 04:00 Blood Culture - Preliminary Blood-Venous NO GROWTH AFTER 3 DAYS 06/10/16 04:00 Blood Culture - Preliminary Blood-Venous NO GROWTH AFTER 3 DAYS Lab Studies 06/13/16 06/13/16 06/13/16 Range/Units 16:11 11:30 06:34 WBC 20.5 H (4.8-10.8) K/uL RBC 4.22 L (4.40-5.90) Mil/uL Hgb 12.0 (12.0-18.0) g/dL Hct 37.5 (35.0-51.0) % MCV 89.0 (80.0-94.0) fL MCH 28.5 (27.0-31.0) pg MCHC 32.1 L (33.0-37.0) g/dL RDW 16.3 H (11.5-14.5) % Plt Count 193 (130-400) K/uL MPV 11.8 H (7.2-11.7) fL Neut % (Auto) 66.5 (50.0-75.0) % Lymph % (Auto) 17.9 L (20.0-40.0) % [place] % (Auto) 9.6 (0.0-10.0) % Eos % (Auto) 4.9 H (0.0-4.0) % Baso % (Auto) 1.1 (0.0-2.0) % Neut # 13.6 H (1.8-7.0) K/uL Lymph # 3.7 (1.0-4.3) K/uL [place] # 2.0 H (0.0-0.8) K/uL Eos # 1.0 H (0.0-0.7) K/uL Baso # 0.2 (0.0-0.2) K/uL Sodium (132-148) mmol/L Potassium (3.6-5.2) mmol/L Chloride (98-107) mmol/L Carbon Dioxide (22-30) mmol/L Anion Gap (10-20) BUN (9-20) mg/dL Creatinine (0.8-1.5) MG/DL Est GFR ( Amer) Est GFR (Non-Af Amer) POC Glucose (mg/dL) 124 H 132 H (65-110) mg/dL Random Glucose (75-110) mg/dL Calcium (8.6-10.4) mg/dl Phosphorus (2.5-4.5) mg/dL Magnesium (1.6-2.3) mg/dL Total Bilirubin (0.2-1.3) mg/dL AST (17-59) U/L ALT (21-72) U/L Alkaline Phosphatase (38-126) U/L Total Protein (6.3-8.3) g/dL Albumin (3.5-5.0) g/dL Globulin (2.2-3.9) gm/dL Albumin/Globulin Ratio (1.0-2.1) 06/13/16 06/13/16 06/13/16 Range/Units 06:33 06:01 00:03 WBC (4.8-10.8) K/uL RBC (4.40-5.90) Mil/uL Hgb (12.0-18.0) g/dL Hct (35.0-51.0) % MCV (80.0-94.0) fL MCH (27.0-31.0) pg MCHC (33.0-37.0) g/dL RDW (11.5-14.5) % Plt Count (130-400) K/uL MPV (7.2-11.7) fL Neut % (Auto) (50.0-75.0) % Lymph % (Auto) (20.0-40.0) % [place] % (Auto) (0.0-10.0) % Eos % (Auto) (0.0-4.0) % Baso % (Auto) (0.0-2.0) % Neut # (1.8-7.0) K/uL Lymph # (1.0-4.3) K/uL [place] # (0.0-0.8) K/uL Eos # (0.0-0.7) K/uL Baso # (0.0-0.2) K/uL Sodium 144 (132-148) mmol/L Potassium 3.3 L (3.6-5.2) mmol/L Chloride 103 (98-107) mmol/L Carbon Dioxide 34 H (22-30) mmol/L Anion Gap 10 (10-20) BUN 58 H (9-20) mg/dL Creatinine 1.1 (0.8-1.5) MG/DL Est GFR ( Amer) > 60 Est GFR (Non-Af Amer) > 60 POC Glucose (mg/dL) 77 140 H (65-110) mg/dL Random Glucose 83 (75-110) mg/dL Calcium 8.0 L (8.6-10.4) mg/dl Phosphorus 4.0 (2.5-4.5) mg/dL Magnesium 1.5 L (1.6-2.3) mg/dL Total Bilirubin 1.2 (0.2-1.3) mg/dL AST 41 (17-59) U/L ALT 58 (21-72) U/L Alkaline Phosphatase 182 H (38-126) U/L Total Protein 5.4 L (6.3-8.3) g/dL Albumin 2.4 L (3.5-5.0) g/dL Globulin 3.1 (2.2-3.9) gm/dL Albumin/Globulin Ratio 0.8 L (1.0-2.1) Laboratory Results - last 24 hr 06/13/16 06/13/16 06/13/16 00:03 06:01 06:33 WBC RBC Hgb Hct MCV MCH MCHC RDW Plt Count MPV Neut % (Auto) Lymph % (Auto) [place] % (Auto) Eos % (Auto) Baso % (Auto) Neut # Lymph # [place] # Eos # Baso # Sodium 144 Potassium 3.3 L Chloride 103 Carbon Dioxide 34 H Anion Gap 10 BUN 58 H Creatinine 1.1 Est GFR ( Amer) > 60 Est GFR (Non-Af Amer) > 60 POC Glucose (mg/dL) 140 H 77 Random Glucose 83 Calcium 8.0 L Phosphorus 4.0 Magnesium 1.5 L Total Bilirubin 1.2 AST 41 ALT 58 Alkaline Phosphatase 182 H Total Protein 5.4 L Albumin 2.4 L Globulin 3.1 Albumin/Globulin Ratio 0.8 L 06/13/16 06/13/16 06/13/16 06:34 11:30 16:11 WBC 20.5 H RBC 4.22 L Hgb 12.0 Hct 37.5 MCV 89.0 MCH 28.5 MCHC 32.1 L RDW 16.3 H Plt Count 193 MPV 11.8 H Neut % (Auto) 66.5 Lymph % (Auto) 17.9 L [place] % (Auto) 9.6 Eos % (Auto) 4.9 H Baso % (Auto) 1.1 Neut # 13.6 H Lymph # 3.7 [place] # 2.0 H Eos # 1.0 H Baso # 0.2 Sodium Potassium Chloride Carbon Dioxide Anion Gap BUN Creatinine Est GFR ( Amer) Est GFR (Non-Af Amer) POC Glucose (mg/dL) 132 H 124 H Random Glucose Calcium Phosphorus Magnesium Total Bilirubin AST ALT Alkaline Phosphatase Total Protein Albumin Globulin Albumin/Globulin Ratio Critical Care Progress Note - Nutrition Nutrition: Nutrition Category Date Time Status Heart Healthy Diet [DIET] Diets 06/13/16 Lunch Active Attending/Attestation - Attestation I have personally seen and examined this patient.: Yes I have fully participated in the care of the patient.: Yes I have reviewed all pertinent clinical information: Yes Notes (Text): 06/13/16 18:58 Patient extubated, and he is doing well, currently sitting up, no distress. Patient is doing well, able to stand up. Participate in physical therapy. Clinically stable for discharge to the floor. 45-year-old male admitted with acute respiratory failure. Deep venous thrombosis, sepsis improved, renal insufficiency also getting better. Monitor the potassium, and magnesium.
[2016-06-13] MEDS: Potassium Chloride 20 mEq 100 ML IVPB SCH ×3 (08:28→12:03)
[2016-06-13] MEDS: Acetylcysteine 20% Inhal Soln (4ml) PO SCH ×2 (10:03→17:43)
[2016-06-13] MEDS: Bacitracin 500 Units/gm Oint Foilpak UD TOP SCH ×2 (10:04→17:43)
[2016-06-13] MEDS: Tigecycline 50 MG in Dextrose 5% In Water 100 ML IV SCH ×2 (10:15→21:21)
--- NOTE | 2016-06-13 10:54 | CP.PCM.PN ---
Subjective - Date & Time of Evaluation Date of Evaluation: 06/13/16 Time of Evaluation: 10:50 - Subjective Subjective: Off dialysis now UO remains excellent-2350ml/24 hrs Extubated and alert Creat low as before; K and mag low- repleted Mildly dyspneic No fevers, chill, n, v, diarrhea, HAs No dysuria Dialysis cath removed Objective - Vital Signs/Intake and Output Vital Signs (last 24 hours): Temp Pulse Resp BP Pulse Ox 97.4 F L 82 18 159/96 H 96 06/13/16 08:00 06/13/16 09:00 06/13/16 09:00 06/13/16 10:03 06/13/16 09:00 Intake and Output: 06/13/16 06/13/16 06:59 18:59 Intake Total 200 200 Output Total 2100 800 Balance -1900 -600 - Medications Medications: Current Medications Acetaminophen (Tylenol 650mg/20.3ml Solution Ud) 650 mg GT Q6 PRN PRN Reason: Fever >100.4 F Last Admin: 06/11/16 23:59 Dose: 650 mg Acetylcysteine (Acetylcysteine 20%) 4 ml PO BID ANABELLA Last Admin: 06/13/16 10:03 Dose: 4 ml Albuterol/Ipratropium (Duoneb 3 Mg/0.5 Mg (3 Ml) Ud) 3 ml INH RQ6 PRN PRN Reason: Wheezing Last Admin: 06/13/16 07:36 Dose: 3 ml Apixaban (Eliquis) 5 mg PO BID ANABELLA Last Admin: 06/13/16 10:04 Dose: 5 mg Aspirin (Aspirin Chewable) 81 mg PO DAILY ANABELLA Last Admin: 06/13/16 10:04 Dose: 81 mg Bacitracin (Bacitracin) 1 ea TOP BID ANABELLA Last Admin: 06/13/16 10:04 Dose: 1 ea Famotidine (Pepcid) 20 mg IVP DAILY COUNTS INCLUDE 234 BEDS AT THE [facility] Last Admin: 06/13/16 10:04 Dose: 20 mg Furosemide (Lasix) 40 mg IVP Q12 ANABELLA Last Admin: 06/13/16 10:03 Dose: 40 mg Cefepime HCl 1 gm/ Sodium (Chloride) 100 mls @ 100 mls/hr IVPB Q12H ANABELLA Last Admin: 06/13/16 04:55 Dose: 100 mls/hr Tigecycline 50 mg/ Dextrose 100 mls @ 100 mls/hr IV Q12H COUNTS INCLUDE 234 BEDS AT THE [facility] Last Admin: 06/13/16 10:15 Dose: 100 mls/hr Potassium Chloride (Potassium Chloride 20 Meq/100 Ml) 100 mls @ 50 mls/hr IVPB Q2H COUNTS INCLUDE 234 BEDS AT THE [facility] Stop: 06/13/16 13:59 Last Admin: 06/13/16 10:15 Dose: 50 mls/hr Insulin Detemir (Levemir) 15 unit SC Q12H ANABELLA Last Admin: 06/13/16 04:55 Dose: 15 unit Insulin Human Regular (Novolin R) 0 unit SC Q6 ANABELLA PRN Reason: Protocol Last Admin: 06/13/16 06:11 Dose: Not Given Lorazepam (Ativan) 2 mg IVP Q6H PRN PRN Reason: Anxiety Last Admin: 06/08/16 22:08 Dose: 2 mg - Labs Labs: 06/13/16 06:34 06/13/16 06:33 PT 13.9 SECONDS (9.7-12.2) H 05/27/16 09:38 INR 1.2 05/27/16 09:38 APTT 65 SECONDS (21-34) H 05/29/16 10:50 - Constitutional Appears: No Acute Distress, Chronically Ill - Head Exam Head Exam: ATRAUMATIC, NORMAL INSPECTION - Eye Exam Eye Exam: EOMI, Normal appearance - Neck Exam Neck Exam: Normal Inspection. absent: Tenderness - Respiratory Exam Respiratory Exam: Clear to Ausculation Bilateral, Respiratory Distress - Cardiovascular Exam Cardiovascular Exam: REGULAR RHYTHM, +S1 - GI/Abdominal Exam GI & Abdominal Exam: Soft. absent: Tenderness - Extremities Exam Extremities Exam: Pedal Edema, Tenderness - Neurological Exam Neurological Exam: Awake, CN II-XII Intact - Skin Skin Exam: Dry, Warm Assessment and Plan (1) Cellulitis Status: Acute (2) Chronic kidney disease, stage 3 (moderate) Status: Acute (3) Deep venous thrombosis of lower extremity Status: Acute (4) Proteinuria due to type 2 diabetes mellitus Status: Acute (5) Type 2 diabetes mellitus with diabetic nephropathy Status: Acute (6) Nephrotic syndrome Status: Acute (7) HENRIQUE (acute kidney injury) Status: Acute - Assessment and Plan (Free Text) Plan: Replete mag, K No further dialysis Monitor BP Eventually will need BREANA I
--- NOTE | 2016-06-13 15:10 | CP.PCM.PN ---
Subjective - Date & Time of Evaluation Date of Evaluation: 06/13/16 Time of Evaluation: 03:00 - Subjective Subjective: dictated Objective - Vital Signs/Intake and Output Vital Signs (last 24 hours): Temp Pulse Resp BP Pulse Ox 97.2 F L 81 17 128/71 99 06/13/16 12:00 06/13/16 15:00 06/13/16 15:00 06/13/16 15:00 06/13/16 15:00 Intake and Output: 06/13/16 06/13/16 06:59 18:59 Intake Total 200 1100 Output Total 2100 2074 Balance -6163 -134 - Medications Medications: Current Medications Acetaminophen (Tylenol 650mg/20.3ml Solution Ud) 650 mg GT Q6 PRN PRN Reason: Fever >100.4 F Last Admin: 06/11/16 23:59 Dose: 650 mg Acetylcysteine (Acetylcysteine 20%) 4 ml PO BID [facility] Last Admin: 06/13/16 10:03 Dose: 4 ml Albuterol/Ipratropium (Duoneb 3 Mg/0.5 Mg (3 Ml) Ud) 3 ml INH RQ6 PRN PRN Reason: Wheezing Last Admin: 06/13/16 13:28 Dose: 3 ml Apixaban (Eliquis) 5 mg PO BID [facility] Last Admin: 06/13/16 10:04 Dose: 5 mg Aspirin (Aspirin Chewable) 81 mg PO DAILY [facility] Last Admin: 06/13/16 10:04 Dose: 81 mg Bacitracin (Bacitracin) 1 ea TOP BID [facility] Last Admin: 06/13/16 10:04 Dose: 1 ea Famotidine (Pepcid) 20 mg IVP DAILY [facility] Last Admin: 06/13/16 10:04 Dose: 20 mg Furosemide (Lasix) 40 mg IVP Q12 [facility] Last Admin: 06/13/16 10:03 Dose: 40 mg Cefepime HCl 1 gm/ Sodium (Chloride) 100 mls @ 100 mls/hr IVPB Q12H [facility] Last Admin: 06/13/16 04:55 Dose: 100 mls/hr Tigecycline 50 mg/ Dextrose 100 mls @ 100 mls/hr IV Q12H [facility] Last Admin: 06/13/16 10:15 Dose: 100 mls/hr Insulin Detemir (Levemir) 15 unit SC Q12H [facility] Last Admin: 06/13/16 04:55 Dose: 15 unit Insulin Human Regular (Novolin R) 0 unit SC ACHS ANABELLA PRN Reason: Protocol Last Admin: 06/13/16 12:01 Dose: Not Given - Labs Labs: 06/13/16 06:34 06/13/16 06:33 PT 13.9 SECONDS (9.7-12.2) H 05/27/16 09:38 INR 1.2 05/27/16 09:38 APTT 65 SECONDS (21-34) H 05/29/16 10:50
--- NOTE | 2016-06-14 03:43 | CP.PCM.PN ---
Subjective - Date & Time of Evaluation Date of Evaluation: 06/13/16 Time of Evaluation: 21:20 - Subjective Subjective: Extubated, no complaints. Objective - Vital Signs/Intake and Output Vital Signs (last 24 hours): Temp Pulse Resp BP Pulse Ox 97.6 F 67 16 140/72 96 06/14/16 00:00 06/14/16 00:00 06/14/16 00:00 06/14/16 00:00 06/14/16 00:00 Intake and Output: 06/13/16 06/14/16 18:59 06:59 Intake Total 1280 320 Output Total 2675 300 Balance -1395 20 - Medications Medications: Current Medications Acetaminophen (Tylenol 650mg/20.3ml Solution Ud) 650 mg GT Q6 PRN PRN Reason: Fever >100.4 F Last Admin: 06/11/16 23:59 Dose: 650 mg Acetylcysteine (Acetylcysteine 20%) 4 ml PO BID [facility] Last Admin: 06/13/16 17:43 Dose: 4 ml Albuterol/Ipratropium (Duoneb 3 Mg/0.5 Mg (3 Ml) Ud) 3 ml INH RQ6 PRN PRN Reason: Wheezing Last Admin: 06/13/16 13:28 Dose: 3 ml Apixaban (Eliquis) 5 mg PO BID [facility] Last Admin: 06/13/16 17:43 Dose: 5 mg Aspirin (Aspirin Chewable) 81 mg PO DAILY [facility] Last Admin: 06/13/16 10:04 Dose: 81 mg Bacitracin (Bacitracin) 1 ea TOP BID [facility] Last Admin: 06/13/16 17:43 Dose: 1 ea Famotidine (Pepcid) 20 mg IVP DAILY [facility] Last Admin: 06/13/16 10:04 Dose: 20 mg Tigecycline 50 mg/ Dextrose 100 mls @ 100 mls/hr IV Q12H [facility] Last Admin: 06/13/16 21:21 Dose: 100 mls/hr Insulin Detemir (Levemir) 15 unit SC Q12H [facility] Last Admin: 06/13/16 17:44 Dose: 15 unit Insulin Human Regular (Novolin R) 0 unit SC ACHS [facility] PRN Reason: Protocol Last Admin: 06/13/16 21:18 Dose: Not Given - Labs Labs: 06/13/16 06:34 06/13/16 06:33 PT 13.9 SECONDS (9.7-12.2) H 05/27/16 09:38 INR 1.2 05/27/16 09:38 APTT 65 SECONDS (21-34) H 05/29/16 10:50 - Head Exam Head Exam: ATRAUMATIC - Eye Exam Eye Exam: Normal appearance - ENT Exam ENT Exam: Mucous Membranes Dry - Respiratory Exam Respiratory Exam: NORMAL BREATHING PATTERN - Cardiovascular Exam Cardiovascular Exam: +S1, +S2 - GI/Abdominal Exam GI & Abdominal Exam: Normal Bowel Sounds - Extremities Exam Extremities Exam: Pedal Edema Assessment and Plan (1) Deep venous thrombosis of lower extremity Assessment & Plan: therapeutic anticoagulation Status: Acute (2) Leukocytosis Assessment & Plan: on antibiotics. Status: Acute (3) Coagulopathy Assessment & Plan: anticoagulation Status: Acute
[2016-06-14] MEDS: Insulin Detemir 100 units/ml Vial (Levemir) SC SCH ×2 (05:22→17:06)
[2016-06-14 06:47] LABS: CHLORIDE 96 mmol/L (98-107); SODIUM 139 mmol/L (132-148)
[2016-06-14 06:48] LABS: POTASSIUM 3.2 mmol/L (3.6-5.2)
[2016-06-14 06:49] LABS: GFR AFRICAN-AMERICAN > 60
[2016-06-14 06:50] LABS: ALKALINE PHOSPHATASE 170 U/L (38-126); ALT/SGPT 51 U/L (21-72); AST/SGOT 36 U/L (17-59); BILIRUBIN,TOTAL 1.3 mg/dL (0.2-1.3); BLOOD UREA NITROGEN 53 mg/dL (9-20); CALCIUM 7.3 mg/dl (8.6-10.4); CARBON DIOXIDE 35 mmol/L (22-30); GLUCOSE,RANDOM 74 mg/dL (75-110); PHOSPHOROUS 3.7 mg/dL (2.5-4.5); TOTAL PROTEIN 4.8 g/dL (6.3-8.3)
[2016-06-14 06:51] LABS: MAGNESIUM 1.6 mg/dL (1.6-2.3)
[2016-06-14 06:54] LABS: BASO # 0.2 K/uL (0.0-0.2); BASO % 1.2 % (0.0-2.0); EOS # 1.1 K/uL (0.0-0.7); EOS % 6.1 % (0.0-4.0); HEMATOCRIT 37.3 % (35.0-51.0); LYMPH # 2.6 K/uL (1.0-4.3); MEAN CELL VOLUME 88.3 fL (80.0-94.0); MEAN CORPUSCULAR HEMOGLOBIN 28.1 pg (27.0-31.0); MEAN CORPUSCULAR HGB CONC 31.8 g/dL (33.0-37.0); MEAN PLATELET VOLUME 12.7 fL (7.2-11.7); MONO # 1.6 K/uL (0.0-0.8); MONO % 8.4 % (0.0-10.0); RED CELL DISTRIBUTION WIDTH 16.1 % (11.5-14.5); WHITE BLOOD COUNT 18.5 K/uL (4.8-10.8)
[2016-06-14 06:56] LABS: ALB/GLOB RATIO 0.8 (1.0-2.1)
[2016-06-14] MEDS: Albuterol-Ipratrop 3 mg / 0.5 (3 ml) UD INH PRN ×3 (07:25→19:25)
--- NOTE | 2016-06-14 07:41 | CP.PCM.PN ---
<Rick Jernigan - Last Filed: 06/14/16 21:40> Subjective - Date & Time of Evaluation Date of Evaluation: 06/14/16 Time of Evaluation: 07:05 - Subjective Subjective: PGY1 Medicine Note Patient seen and examined at bedside. No overnight events per nursing. Patient reports mildly sore chest/throat, possibly from self-extubation. I updated him on his ICU stay and he did not recall his episode of respiratory distress requiring intubation. Tolerating diet. +BM (diarrhea resolved), +urination. Denies any f/c, chest pain, palpitations, abdominal pain, nausea, vomiting, urinary issues, or any additional complaints. Objective - Vital Signs/Intake and Output Vital Signs (last 24 hours): Temp Pulse Resp BP Pulse Ox 97.8 F 73 18 137/70 96 06/14/16 04:00 06/14/16 04:00 06/14/16 04:00 06/14/16 04:00 06/14/16 04:00 Intake and Output: 06/14/16 06/14/16 06:59 18:59 Intake Total 420 Output Total 300 Balance 120 - Medications Medications: Current Medications Acetaminophen (Tylenol 650mg/20.3ml Solution Ud) 650 mg GT Q6 PRN PRN Reason: Fever >100.4 F Last Admin: 06/11/16 23:59 Dose: 650 mg Acetylcysteine (Acetylcysteine 20%) 4 ml PO BID [facility] Last Admin: 06/13/16 17:43 Dose: 4 ml Albuterol/Ipratropium (Duoneb 3 Mg/0.5 Mg (3 Ml) Ud) 3 ml INH RQ6 PRN PRN Reason: Wheezing Last Admin: 06/14/16 07:25 Dose: 3 ml Apixaban (Eliquis) 5 mg PO BID [facility] Last Admin: 06/13/16 17:43 Dose: 5 mg Aspirin (Aspirin Chewable) 81 mg PO DAILY [facility] Last Admin: 06/13/16 10:04 Dose: 81 mg Bacitracin (Bacitracin) 1 ea TOP BID [facility] Last Admin: 06/13/16 17:43 Dose: 1 ea Famotidine (Pepcid) 20 mg IVP DAILY [facility] Last Admin: 06/13/16 10:04 Dose: 20 mg Tigecycline 50 mg/ Dextrose 100 mls @ 100 mls/hr IV Q12H [facility] Last Admin: 06/13/16 21:21 Dose: 100 mls/hr Insulin Detemir (Levemir) 15 unit SC Q12H [facility] Last Admin: 06/14/16 05:22 Dose: Not Given Insulin Human Regular (Novolin R) 0 unit SC ACHS [facility] PRN Reason: Protocol Last Admin: 06/13/16 21:18 Dose: Not Given - Labs Labs: 06/14/16 06:30 06/14/16 06:30 PT 13.9 SECONDS (9.7-12.2) H 05/27/16 09:38 INR 1.2 05/27/16 09:38 APTT 65 SECONDS (21-34) H 05/29/16 10:50 - Additional Findings Additional findings: - Constitutional Appears: Chronically Ill - ENT Exam ENT Exam: Mucous Membranes Moist - Respiratory Exam Respiratory Exam: Decreased Breath Sounds, NORMAL BREATHING PATTERN - Cardiovascular Exam Cardiovascular Exam: REGULAR RHYTHM - GI/Abdominal Exam GI & Abdominal Exam: Soft, Normal Bowel Sounds. absent: Guarding, Rigid, Tenderness - Extremities Exam Extremities Exam: Pedal Edema Additional comments: pedal edema. - Neurological Exam Neurological Exam: Alert, Awake Neuro motor strength exam: Left Upper Extremity: 4, Right Upper Extremity: 4 Assessment and Plan - Assessment and Plan (Free Text) Assessment: Acute respiratory failure 06/14: Resolved. Doing well on NC. 06/12: Now extubated, on Bipap. Responding to question. 06/11: He had 5.5 liters of urine out over yesterday, hopefully with the HD - this will help with extubation 06/09: This morning patient self extubated and had to be reintubated. The sedation medication was changed; will be having more HD today to see if this will help with a successful extubation. 06/08: Remanins intubated, had HD yesterday. Hopefully can be weaned of ventilator soon 06/07: Patient will be getting HD at some point later today to see if this helps with extubation 06/06: I updated family members with reguards to recent events. He may or may not have a PE or this could be aspiration pneumonia for example. He is on IV abx and also he continues to recieve anticoagulation. * Intubated on 06/04/16 for "Code Blue" called on 06/04/16, patient did not lose pulse * Possible aspiration pneumonia vs less pulmonary embolus despite being on anticoagulation for extensive DVT right lower extremity * Unable to perform CT angio PE control secondary to chronic kidney disease Thrombosis of the R iliac and common femoral vein 06/14: Will f/u with Vascular surgery team regarding pt eligibility for surgery 06/06: As mentioned before the patient was intended to have thrombolysis of the lower extremity with the chronic DVT however this was not able to be done immediately due to renal function. As of now on anticogulation. 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 normal venous flow noted in the left common femoral vein * Prior to respiratory arrest on 06/04/16, patient was planned for thrombolysis for this upcoming Tuesday 06/06 * Heme-oncology (Dr. 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 Ortega) on board Sepsis 06/14: Last Tmax 100.4 on 06/12. 06/12: Just added on Tigecyclin IV 06/11: TMax was 101.3, WBC was a little higher -17 06/10: Currently of off abx. WBC is 15 06/09: Currently abx are being stopped today and monitor how the patient does 06/08: WBC are 16 today, remains on IV abx 06/06: The most recent blood cultures have been negative for 48 hrs, remains on IV abx. WBC 14 today. No elevated temperatures today * Criteria admission: WBC: 43.8, HR>90, Cr> 2.0, platelets 103 and blood culture: Serattia from 05/25/16 * Now: Criteria: WBC: 25.5, Tmax: 102.1 bands>10, platelets normalized, Cr 2.0, chest xray for possible aspiration pneumonia pending new cultures * Urine culture: no growth * 05/27/16 Blood Venous: No growth After 5 days X2 * Infectious disease (Dr. Marsh) on board * Procalcitonin: 16.1 (05/26/16)--> 31.81 (05/27/16)-->ordered for new one * Aztreonam 1gram IV Q 12hours (active since 05/26/16) and Maxipime 1gram IV Q 12hours (active since 05/29/16) * Abd CT(05/28/16): bilateral inguinal lymphadenopathy, right greater than left. cirrhotic contour of liver. fatty atrophy of the pancreas, splenic atrophy w residula spleen, recitulation and edema seen in subcutanous soft tissues, cholelithiasis, consolidative changes at both lung bases which may represen underying infiltrate. * Ab US (05/28/16): enlarged liver with diffuse fatty infiltration, cholelithiasis, limited visualization of the pancreas * Echocardiogram (05/30/16): EF: 55-60% left ventricular ejection fraction is within normal range. left ventricular diastolic function is normal. trace to mild tricupsid regurgitation, PAP 35-45 mmgHG, mild pulmonary hypertension Acute renal failure on Chronic Kidney disease with Nephrotic Syndrome 06/14: BUN 53 / Cr 0.9 - overall down trending 06/12 creatine and renal function stable at the moment. His weight was 350lbs on 06/06 and now down to 304lbs 06/11: U/O was a lot yesterday 5.5, also the creatine has decreased to 1.2 06/09: More HD today 06/08: S/P Hemodialysis 06/07: HD to be started some point * Nephrology (Dr. Rhoades) on board-->help appreciated * NS 125 cc/hr (started 06/04/16) * Has dialysis catheter port placed on 06/04/16 by ICU * Monitor potassium levels Electrolyte Imbalance -06/14: Hypokalemia, K3.2 -> monitor and replete Diabetes Mellitus * Accuchecks Q6 hours * Novolin sliding scale subq 6hours * Diabetic source 20cc/hr via OGT * Prior a1c shows uncontrolled History of COPD/asthma * 06/14: Stop Mucormist * Former smoker, quit 5 years ago * currently intubated secondary to respiratory arrest secondary to likely pnuemonia * Chest xray (06/04/16): in site ett and apparent in situ NGT as aboove in distal aspect of the NGT is poorly delinated, cardiomegaly, pulmonary vascular congestive changes with bilateral lower love alveolar-type infiltrates and bilateral effusions History of Congestive Heart failure * 01/2016 ECHO- LV EF 60-65%, mild pulmonary HTN (see full report) * Echocardiogram (05/30/16): EF: 55-60% left ventricular ejection fraction is within normal range. left ventricular diastolic function is normal. trace to mild tricupsid regurgitation, PAP 35-45 mmgHG, mild pulmonary hypertension * off Crestor secondary to elevated BUN/Cr * off beta asmita secondary to acute respiratory failure; hx of copd se worsening bronchospasm * Aspirin 81mg PO daily History of Hypertension * Off antihypertensives Hx of Nonstemi * January 2016 hospitalization * No cardiac cath * Hx of CHF Prophylactic measures - SCDs contraindicated due to DVT - Eliquis 5mg PO BID for DVT Right LE - Pepcid 20mg PO daily for GI ppx - Tube feedings <Heaven Guerra V - Last Filed: 06/27/16 08:02> Objective - Vital Signs/Intake and Output Vital Signs (last 24 hours): Temp Pulse Resp BP Pulse Ox 99.4 F 92 H 17 124/84 98 06/24/16 18:00 06/24/16 18:00 06/24/16 06:00 06/24/16 10:16 06/23/16 22:00 - Labs Labs: 06/24/16 06:31 06/24/16 06:31 PT 14.2 SECONDS (9.7-12.2) H 06/19/16 09:51 INR 1.3 06/19/16 09:51 APTT 63 SECONDS (21-34) H 06/19/16 09:51 Assessment and Plan (1) Acute respiratory failure Status: Acute (2) Aspiration pneumonia Status: Acute (3) Sepsis Status: Acute (4) Leg edema, right Status: Acute (5) COPD (chronic obstructive pulmonary disease) Status: Chronic (6) Diabetes Status: Chronic (7) HTN (hypertension) Status: Chronic (8) Renal insufficiency Status: Chronic (9) Deep vein thrombophlebitis of right leg Status: Acute (10) Prophylactic measure Status: Acute Attending/Attestation - Attestation I have personally seen and examined this patient.: Yes I have fully participated in the care of the patient.: Yes I have reviewed all pertinent clinical information, including history, physical exam and plan: Yes Notes (Text): This is a late computer entry 06/14/16. Patient seen, examined and case discussed with day-time resident. Patient awaiting telemetry bed; seen in the ICU. Patient is recently extubated, tolerating nasal canula. Patient is currently on Tigecycline for VRE-UTI. Patient is off dialysis and kidney numbers are recovering. Will follow-up with vascular surgery regarding intervention for DVT+. Patient is currently on Eliquis.
[2016-06-14] MEDS: (Novolin R) Insulin Human Regular 100 units/ml vial SC SCH ×4 (07:44→21:08)
[2016-06-14 09:06] LABS: RBC URINE < 1 /hpf (0-3); URINE BACTERIA RARE (<OCC); URINE BILIRUBIN NEGATIVE (NEGATIVE); URINE BLOOD 1+ (NEGATIVE); URINE COLOR Yellow (YELLOW); URINE GLUCOSE (UA) NORMAL (Normal); URINE KETONE NEGATIVE (NEGATIVE); URINE LEUKOCYTE ESTERASE NEG Leu/uL (Negative); URINE PROTEIN 2+ mg/dL (NEGATIVE); URINE UROBILINOGEN NORMAL mg/dL (0.2-1.0)
[2016-06-14 09:08] LABS: WBC URINE 2 /hpf (0-5)
[2016-06-14] MEDS ORDERED: Potassium Chloride 20 mEq ER Tab PO ONE ×2 (09:41→17:00)
[2016-06-14] MEDS: Acetylcysteine 20% Inhal Soln (4ml) PO SCH ×2 (09:52→17:08)
[2016-06-14] MEDS: Bacitracin 500 Units/gm Oint Foilpak UD TOP SCH ×2 (09:52→17:06)
[2016-06-14] MEDS: Tigecycline 50 MG in Dextrose 5% In Water 100 ML IV SCH ×2 (09:53→21:05)
--- NOTE | 2016-06-14 09:53 | CP.PCM.PN ---
Subjective - Date & Time of Evaluation Date of Evaluation: 06/13/16 Time of Evaluation: 17:30 - Subjective Subjective: Patient tolerating diet; denies any complaints; got OOB to chair today; Objective - Vital Signs/Intake and Output Vital Signs (last 24 hours): Temp Pulse Resp BP Pulse Ox 97.1 F L 97 H 17 140/71 98 06/14/16 08:00 06/14/16 08:00 06/14/16 08:00 06/14/16 08:00 06/14/16 08:00 Intake and Output: 06/14/16 06/14/16 06:59 18:59 Intake Total 420 120 Output Total 300 700 Balance 120 -580 - Medications Medications: Current Medications Acetaminophen (Tylenol 650mg/20.3ml Solution Ud) 650 mg GT Q6 PRN PRN Reason: Fever >100.4 F Last Admin: 06/11/16 23:59 Dose: 650 mg Acetylcysteine (Acetylcysteine 20%) 4 ml PO BID [facility] Last Admin: 06/13/16 17:43 Dose: 4 ml Albuterol/Ipratropium (Duoneb 3 Mg/0.5 Mg (3 Ml) Ud) 3 ml INH RQ6 PRN PRN Reason: Wheezing Last Admin: 06/14/16 07:25 Dose: 3 ml Apixaban (Eliquis) 5 mg PO BID [facility] Last Admin: 06/13/16 17:43 Dose: 5 mg Aspirin (Aspirin Chewable) 81 mg PO DAILY [facility] Last Admin: 06/13/16 10:04 Dose: 81 mg Bacitracin (Bacitracin) 1 ea TOP BID [facility] Last Admin: 06/13/16 17:43 Dose: 1 ea Famotidine (Pepcid) 20 mg IVP DAILY [facility] Last Admin: 06/13/16 10:04 Dose: 20 mg Tigecycline 50 mg/ Dextrose 100 mls @ 100 mls/hr IV Q12H [facility] Last Admin: 06/13/16 21:21 Dose: 100 mls/hr Insulin Detemir (Levemir) 15 unit SC Q12H [facility] Last Admin: 06/14/16 05:22 Dose: Not Given Insulin Human Regular (Novolin R) 0 unit SC ACHS [facility] PRN Reason: Protocol Last Admin: 06/14/16 07:44 Dose: Not Given Potassium Chloride (K-Dur 20 Meq Er Tab) 40 meq PO ONCE ONE Stop: 06/14/16 17:01 - Labs Labs: 06/14/16 06:30 06/14/16 06:30 PT 13.9 SECONDS (9.7-12.2) H 05/27/16 09:38 INR 1.2 05/27/16 09:38 APTT 65 SECONDS (21-34) H 05/29/16 10:50 - Constitutional Appears: Well, No Acute Distress - Head Exam Head Exam: NORMAL INSPECTION - Eye Exam Eye Exam: Normal appearance. absent: Scleral icterus - ENT Exam ENT Exam: Mucous Membranes Moist - Neck Exam Neck Exam: Normal Inspection - Respiratory Exam Respiratory Exam: Clear to Ausculation Bilateral, NORMAL BREATHING PATTERN - Cardiovascular Exam Cardiovascular Exam: REGULAR RHYTHM, +S1, +S2 - GI/Abdominal Exam GI & Abdominal Exam: Soft. absent: Distended, Tenderness - Extremities Exam Additional comments: Mildly edematous - Neurological Exam Neurological Exam: Alert, Awake - Psychiatric Exam Psychiatric exam: Normal Affect, Normal Mood - Skin Skin Exam: Normal Color. absent: Cyanosis Assessment and Plan (1) HENRIQUE (acute kidney injury) Assessment & Plan: Resolving; high BUN likely combination of high protein feeds and intravascular volume depletion with diuretics; Status: Acute (2) Acute respiratory failure Assessment & Plan: Resolved; extubated 2 days ago; Status: Acute (3) Deep venous thrombosis of lower extremity Assessment & Plan: On eliquis, continue; Status: Acute (4) Nephrotic syndrome Assessment & Plan: ~15g proteinuria; f/u with nephrology; Status: Acute (5) Diabetes Assessment & Plan: On levemir 15 u daily, continue; Status: Chronic (6) HTN (hypertension) Status: Chronic (7) UTI (urinary tract infection) due to Enterococcus Assessment & Plan: VRE, now on tyecil, f/u with ID; Status: Acute
--- NOTE | 2016-06-14 10:38 | CP.PCM.PN ---
Subjective - Date & Time of Evaluation Date of Evaluation: 06/14/16 Time of Evaluation: 10:37 - Subjective Subjective: seen and examined extubated, up in chair afebrile good bp, good uop renal function stable, low k Objective - Vital Signs/Intake and Output Vital Signs (last 24 hours): Temp Pulse Resp BP Pulse Ox 97.1 F L 97 H 17 140/71 98 06/14/16 08:00 06/14/16 08:00 06/14/16 08:00 06/14/16 08:00 06/14/16 08:00 Intake and Output: 06/14/16 06/14/16 06:59 18:59 Intake Total 420 340 Output Total 300 700 Balance 120 -360 - Medications Medications: Current Medications Acetaminophen (Tylenol 650mg/20.3ml Solution Ud) 650 mg GT Q6 PRN PRN Reason: Fever >100.4 F Last Admin: 06/11/16 23:59 Dose: 650 mg Acetylcysteine (Acetylcysteine 20%) 4 ml PO BID [facility] Last Admin: 06/14/16 09:52 Dose: 4 ml Albuterol/Ipratropium (Duoneb 3 Mg/0.5 Mg (3 Ml) Ud) 3 ml INH RQ6 PRN PRN Reason: Wheezing Last Admin: 06/14/16 07:25 Dose: 3 ml Apixaban (Eliquis) 5 mg PO BID [facility] Last Admin: 06/14/16 09:52 Dose: 5 mg Aspirin (Aspirin Chewable) 81 mg PO DAILY [facility] Last Admin: 06/14/16 09:52 Dose: 81 mg Bacitracin (Bacitracin) 1 ea TOP BID [facility] Last Admin: 06/14/16 09:52 Dose: 1 ea Famotidine (Pepcid) 20 mg IVP DAILY [facility] Last Admin: 06/14/16 09:52 Dose: 20 mg Tigecycline 50 mg/ Dextrose 100 mls @ 100 mls/hr IV Q12H [facility] Last Admin: 06/14/16 09:53 Dose: 100 mls/hr Insulin Detemir (Levemir) 15 unit SC Q12H [facility] Last Admin: 06/14/16 05:22 Dose: Not Given Insulin Human Regular (Novolin R) 0 unit SC ACHS [facility] PRN Reason: Protocol Last Admin: 03/28/17 07:44 Dose: Not Given Potassium Chloride (K-Dur 20 Meq Er Tab) 40 meq PO ONCE ONE Stop: 06/14/16 17:01 - Labs Labs: 06/14/16 06:30 06/14/16 06:30 PT 13.9 SECONDS (9.7-12.2) H 05/27/16 09:38 INR 1.2 05/27/16 09:38 APTT 65 SECONDS (21-34) H 05/29/16 10:50 - Constitutional Appears: Non-toxic, No Acute Distress, Chronically Ill - Head Exam Head Exam: NORMAL INSPECTION - Eye Exam Eye Exam: Normal appearance - ENT Exam ENT Exam: Mucous Membranes Moist, Normal Exam - Neck Exam Neck Exam: Normal Inspection - Respiratory Exam Respiratory Exam: Decreased Breath Sounds, NORMAL BREATHING PATTERN - Cardiovascular Exam Cardiovascular Exam: Tachycardia, REGULAR RHYTHM, RRR - GI/Abdominal Exam GI & Abdominal Exam: Distended, Soft, Diminished Bowel Sounds - Extremities Exam Extremities Exam: Pedal Edema (3+) Assessment and Plan (1) Cellulitis Status: Acute (2) Deep venous thrombosis of lower extremity Status: Acute (3) Sepsis Status: Acute (4) Diabetic nephropathy Status: Acute (5) Diabetes Status: Chronic (6) HTN (hypertension) Status: Chronic (7) Renal insufficiency Status: Chronic - Assessment and Plan (Free Text) Assessment: -off hd -supplement potassium
[2016-06-14] MEDS: Saccharomyces Boulardi 250 mg Cap PO SCH ×2 (12:13→17:06)
--- NOTE | 2016-06-14 14:50 | PN ---
DATE: 06/13/2016 The patient seen today. He has been extubated. He was off dialysis. His dialysis catheter had been removed. His urine culture showed VRE, hence, he has started . He denied any shortness of nohelia ath, no chest pain. He is extubated, remained off the ventilator, and he has a triple lumen in his r ight neck. Otherwise, dialysis catheter has been removed. His right leg was feeling a little better . Temperature was 97.4, pulse 77, blood pressure 126/53, respirations are 20. HEAD: Atraumatic, normocephalic. NECK: Supple. LUNGS: Clear. Decreased breath sounds on both bases. HEART: S1, S2 regular. ABDOMEN: Soft, nontender, no guarding, no rigidity present. Right leg remains with the swelling, and left leg is unremarkable. He did complain of 3 BMs. His white count was 20.5, hemoglobin 12, hematocrit 37.5, platelet count of 193 now, and he is on Ashwini arjun. Potassium 3.3, creatinine is 1.1, BUN is 58. Chest x-ray from 06/12 showed small left pleural effusion, right costophrenic angle clear; no infiltr ate. Lines and tubes are unchanged. So at this time, he is improving, however, his white count still remains elevated. His medications i nclude Tygacil now, and it included cefepime. I would discontinue the cefepime, which I did this aft kalyanilorna, and left him on Tygacil. He is on his respiratory treatments, and on Eliquis 5 mg p.o. b.i.d . for his DVT right leg. He is off the ventilator, and he is off dialysis, and will repeat the labs tomorrow to see if this white count is getting better. We just recently did a stool for C. diff on h im. I think I did it, but will repeat it, and will repeat the urine culture also. Will follow. Joshua Marsh MD cc: [id number] TT: 06/14/2016 09:35:22 Confirmation # [id number] Dictation # [id number]
--- NOTE | 2016-06-15 05:46 | CP.PCM.PN ---
Subjective - Date & Time of Evaluation Date of Evaluation: 06/14/16 Time of Evaluation: 19:20 - Subjective Subjective: Feeling better. Objective - Vital Signs/Intake and Output Vital Signs (last 24 hours): Temp Pulse Resp BP Pulse Ox 98 F 94 H 20 140/68 96 06/15/16 04:00 06/15/16 04:00 06/15/16 04:00 06/15/16 04:00 06/15/16 04:00 Intake and Output: 06/14/16 06/15/16 18:59 06:59 Intake Total 580 Output Total 700 Balance -120 - Medications Medications: Current Medications Acetaminophen (Tylenol 650mg/20.3ml Solution Ud) 650 mg GT Q6 PRN PRN Reason: Fever >100.4 F Last Admin: 06/11/16 23:59 Dose: 650 mg Albuterol/Ipratropium (Duoneb 3 Mg/0.5 Mg (3 Ml) Ud) 3 ml INH RQ6 PRN PRN Reason: Wheezing Last Admin: 06/14/16 19:25 Dose: 3 ml Apixaban (Eliquis) 5 mg PO BID [facility] Last Admin: 06/14/16 17:07 Dose: 5 mg Aspirin (Aspirin Chewable) 81 mg PO DAILY [facility] Last Admin: 06/14/16 09:52 Dose: 81 mg Bacitracin (Bacitracin) 1 ea TOP BID [facility] Last Admin: 06/14/16 17:06 Dose: 1 ea Famotidine (Pepcid) 20 mg PO DAILY [facility] Tigecycline 50 mg/ Dextrose 100 mls @ 100 mls/hr IV Q12H [facility] Last Admin: 06/14/16 21:05 Dose: 100 mls/hr Insulin Detemir (Levemir) 15 unit SC Q12H [facility] Insulin Human Regular (Novolin R) 0 unit SC ACHS [facility] PRN Reason: Protocol Last Admin: 06/14/16 21:08 Dose: Not Given Saccharomyces Boulardii (Florastor) 250 mg PO BID [facility] Last Admin: 06/14/16 17:06 Dose: 250 mg - Labs Labs: 06/14/16 06:30 06/14/16 06:30 PT 13.9 SECONDS (9.7-12.2) H 05/27/16 09:38 INR 1.2 05/27/16 09:38 APTT 65 SECONDS (21-34) H 05/29/16 10:50 - Head Exam Head Exam: ATRAUMATIC - Eye Exam Eye Exam: Normal appearance - ENT Exam ENT Exam: Mucous Membranes Dry - Respiratory Exam Respiratory Exam: NORMAL BREATHING PATTERN - Cardiovascular Exam Cardiovascular Exam: +S1, +S2 - GI/Abdominal Exam GI & Abdominal Exam: Normal Bowel Sounds - Extremities Exam Extremities Exam: Pedal Edema Assessment and Plan (1) Deep venous thrombosis of lower extremity Assessment & Plan: therapeutic anticoagulation Status: Acute (2) Leukocytosis Assessment & Plan: on anticoagulation Status: Acute (3) Coagulopathy Assessment & Plan: anticoagulation Status: Acute
[2016-06-15] MEDS: Albuterol-Ipratrop 3 mg / 0.5 (3 ml) UD INH PRN ×2 (07:27→13:18)
--- NOTE | 2016-06-15 07:51 | CP.PCM.PN ---
<ChristadoreenRick - Last Filed: 06/15/16 20:57> Subjective - Date & Time of Evaluation Date of Evaluation: 06/15/16 Time of Evaluation: 07:25 - Subjective Subjective: PGY1 Medicine Note Patient seen and examined at bedside. No overnight events per nursing. Patient reports doing well, has no acute complaints. He spent sometime at bedside chair today, and developed lower extremity tenderness. Advised to remain in bed with Right leg elevated. Tolerating diet. +BM (diarrhea resolved), +urination. Denies any f/c, chest pain, palpitations, abdominal pain, nausea, vomiting, urinary issues, or any additional complaints. Objective - Vital Signs/Intake and Output Vital Signs (last 24 hours): Temp Pulse Resp BP Pulse Ox 98 F 94 H 20 140/68 96 06/15/16 04:00 06/15/16 04:00 06/15/16 04:00 06/15/16 04:00 06/15/16 04:00 Intake and Output: 06/15/16 06/15/16 06:59 18:59 Intake Total 340 Output Total 1200 Balance -860 - Medications Medications: Current Medications Acetaminophen (Tylenol 650mg/20.3ml Solution Ud) 650 mg GT Q6 PRN PRN Reason: Fever >100.4 F Last Admin: 06/11/16 23:59 Dose: 650 mg Albuterol/Ipratropium (Duoneb 3 Mg/0.5 Mg (3 Ml) Ud) 3 ml INH RQ6 PRN PRN Reason: Wheezing Last Admin: 06/15/16 07:27 Dose: 3 ml Apixaban (Eliquis) 5 mg PO BID [facility] Last Admin: 06/14/16 17:07 Dose: 5 mg Aspirin (Aspirin Chewable) 81 mg PO DAILY [facility] Last Admin: 06/14/16 09:52 Dose: 81 mg Bacitracin (Bacitracin) 1 ea TOP BID [facility] Last Admin: 06/14/16 17:06 Dose: 1 ea Famotidine (Pepcid) 20 mg PO DAILY [facility] Tigecycline 50 mg/ Dextrose 100 mls @ 100 mls/hr IV Q12H [facility] Last Admin: 06/14/16 21:05 Dose: 100 mls/hr Insulin Detemir (Levemir) 15 unit SC Q12H [facility] Insulin Human Regular (Novolin R) 0 unit SC ACHS [facility] PRN Reason: Protocol Last Admin: 06/14/16 21:08 Dose: Not Given Saccharomyces Zanderdii (Florastor) 250 mg PO BID [facility] Last Admin: 06/14/16 17:06 Dose: 250 mg - Labs Labs: 06/14/16 06:30 06/14/16 06:30 PT 13.9 SECONDS (9.7-12.2) H 05/27/16 09:38 INR 1.2 05/27/16 09:38 APTT 65 SECONDS (21-34) H 05/29/16 10:50 - Additional Findings Additional findings: - Constitutional Appears: Chronically Ill - ENT Exam ENT Exam: Mucous Membranes Moist - Respiratory Exam Respiratory Exam: Decreased Breath Sounds, NORMAL BREATHING PATTERN - Cardiovascular Exam Cardiovascular Exam: REGULAR RHYTHM - GI/Abdominal Exam GI & Abdominal Exam: Soft, Normal Bowel Sounds. absent: Guarding, Rigid, Tenderness - Extremities Exam Extremities Exam: Pedal Edema Additional comments: pedal edema, tenderness to palpation - Neurological Exam Neurological Exam: Alert, Awake Neuro motor strength exam: Left Upper Extremity: 4, Right Upper Extremity: 4 Assessment and Plan - Assessment and Plan (Free Text) Assessment: Acute respiratory failure 06/14-06/15: Resolved. Doing well on NC. 06/12: Now extubated, on Bipap. Responding to question. 06/11: He had 5.5 liters of urine out over yesterday, hopefully with the HD - this will help with extubation 06/09: This morning patient self extubated and had to be reintubated. The sedation medication was changed; will be having more HD today to see if this will help with a successful extubation. 06/08: Remanins intubated, had HD yesterday. Hopefully can be weaned of ventilator soon 06/07: Patient will be getting HD at some point later today to see if this helps with extubation 06/06: I updated family members with reguards to recent events. He may or may not have a PE or this could be aspiration pneumonia for example. He is on IV abx and also he continues to recieve anticoagulation. * Intubated on 06/04/16 for "Code Blue" called on 06/04/16, patient did not lose pulse * Possible aspiration pneumonia vs less pulmonary embolus despite being on anticoagulation for extensive DVT right lower extremity * Unable to perform CT angio PE control secondary to chronic kidney disease Thrombosis of the R iliac and common femoral vein 06/14-06/15: Re-consulted Surgery. Dr. Ortega, f/u recs. Not safe for intervention so close to critical care. Continue Eliquis, Elevate legs while in bed/seated, Walk often, no standing around, Wear compression stockings every day. 06/06: As mentioned before the patient was intended to have thrombolysis of the lower extremity with the chronic DVT however this was not able to be done immediately due to renal function. As of now on anticogulation. 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 normal venous flow noted in the left common femoral vein * Prior to respiratory arrest on 06/04/16, patient was planned for thrombolysis for this upcoming Tuesday 06/06 * Heme-oncology (Dr. 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 Ortega) on board Sepsis 06/14-06/15: Last Tmax 100.4 on 06/12. UC and sputum culture no growth 06/12: Just added on Tigecyclin IV 06/11: TMax was 101.3, WBC was a little higher -17 06/10: Currently of off abx. WBC is 15 06/09: Currently abx are being stopped today and monitor how the patient does 06/08: WBC are 16 today, remains on IV abx 06/06: The most recent blood cultures have been negative for 48 hrs, remains on IV abx. WBC 14 today. No elevated temperatures today * Criteria admission: WBC: 43.8, HR>90, Cr> 2.0, platelets 103 and blood culture: Serattia from 05/25/16 * Now: Criteria: WBC: 25.5, Tmax: 102.1 bands>10, platelets normalized, Cr 2.0, chest xray for possible aspiration pneumonia pending new cultures * Urine culture: no growth * 05/27/16 Blood Venous: No growth After 5 days X2 * Infectious disease (Dr. Marsh) on board * Procalcitonin: 16.1 (05/26/16)--> 31.81 (05/27/16)-->ordered for new one * Aztreonam 1gram IV Q 12hours (active since 05/26/16) and Maxipime 1gram IV Q 12hours (active since 05/29/16) * Abd CT(05/28/16): bilateral inguinal lymphadenopathy, right greater than left. cirrhotic contour of liver. fatty atrophy of the pancreas, splenic atrophy w residula spleen, recitulation and edema seen in subcutanous soft tissues, cholelithiasis, consolidative changes at both lung bases which may represen underying infiltrate. * Ab US (05/28/16): enlarged liver with diffuse fatty infiltration, cholelithiasis, limited visualization of the pancreas * Echocardiogram (05/30/16): EF: 55-60% left ventricular ejection fraction is within normal range. left ventricular diastolic function is normal. trace to mild tricupsid regurgitation, PAP 35-45 mmgHG, mild pulmonary hypertension Acute renal failure on Chronic Kidney disease with Nephrotic Syndrome 06/14-06/15: BUN 51/ Cr 1.1 - elevated, stable (down trending overall) 06/12 creatine and renal function stable at the moment. His weight was 350lbs on 06/06 and now down to 304lbs 06/11: U/O was a lot yesterday 5.5, also the creatine has decreased to 1.2 06/09: More HD today 06/08: S/P Hemodialysis 06/07: HD to be started some point * Nephrology (Dr. Rhoades) on board-->help appreciated * NS 125 cc/hr (started 06/04/16) * Has dialysis catheter port placed on 06/04/16 by ICU * Monitor potassium levels Electrolyte Imbalance -06/14: Hypokalemia, K3.2 -> monitor and replete - RESOLVED 06/15 Diabetes Mellitus * Accuchecks Q6 hours * Novolin sliding scale subq 6hours * Diabetic source 20cc/hr via OGT * Prior a1c shows uncontrolled History of COPD/asthma * 06/14: Stop Mucormist * Former smoker, quit 5 years ago * currently intubated secondary to respiratory arrest secondary to likely pnuemonia * Chest xray (06/04/16): in site ett and apparent in situ NGT as aboove in distal aspect of the NGT is poorly delinated, cardiomegaly, pulmonary vascular congestive changes with bilateral lower love alveolar-type infiltrates and bilateral effusions History of Congestive Heart failure * 01/2016 ECHO- LV EF 60-65%, mild pulmonary HTN (see full report) * Echocardiogram (05/30/16): EF: 55-60% left ventricular ejection fraction is within normal range. left ventricular diastolic function is normal. trace to mild tricupsid regurgitation, PAP 35-45 mmgHG, mild pulmonary hypertension * off Crestor secondary to elevated BUN/Cr * off beta asmita secondary to acute respiratory failure; hx of copd se worsening bronchospasm * Aspirin 81mg PO daily History of Hypertension * Off antihypertensives Hx of Nonstemi * January 2016 hospitalization * No cardiac cath * Hx of CHF Prophylactic measures - SCDs contraindicated due to DVT - Eliquis 5mg PO BID for DVT Right LE - Pepcid 20mg PO daily for GI ppx - Tube feedings <Heaven Guerra V - Last Filed: 06/27/16 08:07> Objective - Vital Signs/Intake and Output Vital Signs (last 24 hours): Temp Pulse Resp BP Pulse Ox 99.4 F 92 H 17 124/84 98 06/24/16 18:00 06/24/16 18:00 06/24/16 06:00 06/24/16 10:16 06/23/16 22:00 - Labs Labs: 06/24/16 06:31 06/24/16 06:31 PT 14.2 SECONDS (9.7-12.2) H 06/19/16 09:51 INR 1.3 06/19/16 09:51 APTT 63 SECONDS (21-34) H 06/19/16 09:51 Assessment and Plan (1) Acute respiratory failure Status: Acute (2) Aspiration pneumonia Status: Acute (3) Sepsis Status: Acute (4) Leg edema, right Status: Acute (5) COPD (chronic obstructive pulmonary disease) Status: Chronic (6) Diabetes Status: Chronic (7) HTN (hypertension) Status: Chronic (8) Renal insufficiency Status: Chronic (9) Deep vein thrombophlebitis of right leg Status: Acute (10) Prophylactic measure Status: Acute Attending/Attestation - Attestation I have personally seen and examined this patient.: Yes I have fully participated in the care of the patient.: Yes I have reviewed all pertinent clinical information, including history, physical exam and plan: Yes Notes (Text): This is late computer entry for 06/15/16. Patient seen, examined and case discussed with day-time resident. Patient is saturating well on nasal cannula following recent extubation. Patient is currently on Tigecycline for VRE-UTI. Infectious disease is following. Cultures are negative. At this time, no intervention is planned for the patient by vascular given his recent icu hospitalization following acute respiratory failure, sepsis, etc.Vascular has recommended to continue eliquis, advised patient to elevate legs while in bed, and walk.
[2016-06-15] MEDS: (Novolin R) Insulin Human Regular 100 units/ml vial SC SCH ×4 (08:50→22:14)
[2016-06-15] MEDS: Insulin Detemir 100 units/ml Vial (Levemir) SC SCH ×2 (10:48→22:16)
[2016-06-15] MEDS: Bacitracin 500 Units/gm Oint Foilpak UD TOP SCH ×2 (10:50→18:23)
[2016-06-15] MEDS: Saccharomyces Boulardi 250 mg Cap PO SCH ×2 (10:50→19:00)
[2016-06-15] MEDS: Tigecycline 50 MG in Dextrose 5% In Water 100 ML IV SCH ×2 (10:51→22:08)
--- NOTE | 2016-06-15 11:31 | CP.PCM.PN ---
Subjective - Date & Time of Evaluation Date of Evaluation: 06/15/16 Time of Evaluation: 08:55 - Subjective Subjective: Vascular Surgery Pt S&E, NAEO. C/O pain in RLE, but said he sat in a chair without elevating his foot for a while yesterday. No other C/O. Rechecked this pt at 11AM on rounds with Dr. Ortega. Objective - Vital Signs/Intake and Output Vital Signs (last 24 hours): Temp Pulse Resp BP Pulse Ox 98 F 94 H 20 140/68 96 06/15/16 04:00 06/15/16 04:00 06/15/16 04:00 06/15/16 04:00 06/15/16 04:00 Intake and Output: 06/15/16 06/15/16 06:59 18:59 Intake Total 340 Output Total 1200 Balance -860 - Medications Medications: Current Medications Acetaminophen (Tylenol 650mg/20.3ml Solution Ud) 650 mg GT Q6 PRN PRN Reason: Fever >100.4 F Last Admin: 06/11/16 23:59 Dose: 650 mg Albuterol/Ipratropium (Duoneb 3 Mg/0.5 Mg (3 Ml) Ud) 3 ml INH RQ6 PRN PRN Reason: Wheezing Last Admin: 06/15/16 07:27 Dose: 3 ml Apixaban (Eliquis) 5 mg PO BID [facility] Last Admin: 06/15/16 10:52 Dose: 5 mg Aspirin (Aspirin Chewable) 81 mg PO DAILY [facility] Last Admin: 06/15/16 10:47 Dose: 81 mg Bacitracin (Bacitracin) 1 ea TOP BID [facility] Last Admin: 06/15/16 10:50 Dose: 1 ea Famotidine (Pepcid) 20 mg PO DAILY [facility] Last Admin: 06/15/16 10:47 Dose: 20 mg Tigecycline 50 mg/ Dextrose 100 mls @ 100 mls/hr IV Q12H [facility] Last Admin: 06/15/16 10:51 Dose: 100 mls/hr Insulin Detemir (Levemir) 15 unit SC Q12H [facility] Last Admin: 06/15/16 10:48 Dose: 15 unit Insulin Human Regular (Novolin R) 0 unit SC ACHS [facility] PRN Reason: Protocol Last Admin: 06/15/16 08:50 Dose: Not Given Saccharomyces Boulardii (Florastor) 250 mg PO BID [facility] Last Admin: 06/15/16 10:50 Dose: 250 mg - Labs Labs: 06/14/16 06:30 06/14/16 06:30 PT 13.9 SECONDS (9.7-12.2) H 05/27/16 09:38 INR 1.2 05/27/16 09:38 APTT 65 SECONDS (21-34) H 05/29/16 10:50 - Constitutional Appears: Non-toxic, No Acute Distress - Head Exam Head Exam: ATRAUMATIC, NORMOCEPHALIC - Respiratory Exam Respiratory Exam: NORMAL BREATHING PATTERN. absent: Respiratory Distress - Extremities Exam Additional comments: B/L LE edema, R>L. TTP on R - Neurological Exam Neurological Exam: Alert, Awake - Skin Skin Exam: Dry, Warm Assessment and Plan - Assessment and Plan (Free Text) Assessment: 45M with Recurrent RLE DVT to iliac Plan: Not safe for intervention so close to critical care. Continue Eliquis Elevate legs while in bed/seated Walk often, no standing around Wear compression stockings every day. D/W Dr. Jordan Crowell PGY3
--- NOTE | 2016-06-15 14:04 | CP.PCM.PN ---
Subjective - Date & Time of Evaluation Date of Evaluation: 06/15/16 Time of Evaluation: 13:30 - Subjective Subjective: slightly confused chronic right leg pain appetite fair no chest pain no sob no fever no abdominal pain no urinary complaints no rash no headache no focal weakness Objective - Vital Signs/Intake and Output Vital Signs (last 24 hours): Temp Pulse Resp BP Pulse Ox 98 F 94 H 20 140/68 96 06/15/16 04:00 06/15/16 04:00 06/15/16 04:00 06/15/16 04:00 06/15/16 04:00 Intake and Output: 06/15/16 06/15/16 06:59 18:59 Intake Total 340 Output Total 1200 Balance -860 - Medications Medications: Current Medications Acetaminophen (Tylenol 650mg/20.3ml Solution Ud) 650 mg GT Q6 PRN PRN Reason: Fever >100.4 F Last Admin: 06/11/16 23:59 Dose: 650 mg Albuterol/Ipratropium (Duoneb 3 Mg/0.5 Mg (3 Ml) Ud) 3 ml INH RQ6 PRN PRN Reason: Wheezing Last Admin: 06/15/16 13:18 Dose: 3 ml Apixaban (Eliquis) 5 mg PO BID [facility] Last Admin: 06/15/16 10:52 Dose: 5 mg Aspirin (Aspirin Chewable) 81 mg PO DAILY [facility] Last Admin: 06/15/16 10:47 Dose: 81 mg Bacitracin (Bacitracin) 1 ea TOP BID [facility] Last Admin: 06/15/16 10:50 Dose: 1 ea Famotidine (Pepcid) 20 mg PO DAILY [facility] Last Admin: 06/15/16 10:47 Dose: 20 mg Tigecycline 50 mg/ Dextrose 100 mls @ 100 mls/hr IV Q12H [facility] Last Admin: 06/15/16 10:51 Dose: 100 mls/hr Insulin Detemir (Levemir) 15 unit SC Q12H [facility] Last Admin: 06/15/16 10:48 Dose: 15 unit Insulin Human Regular (Novolin R) 0 unit SC ACHS [facility] PRN Reason: Protocol Last Admin: 06/15/16 12:56 Dose: 6 unit Saccharomyces Boulardii (Florastor) 250 mg PO BID [facility] Last Admin: 06/15/16 10:50 Dose: 250 mg - Labs Labs: 03/28/17 06:30 06/14/16 06:30 PT 13.9 SECONDS (9.7-12.2) H 05/27/16 09:38 INR 1.2 05/27/16 09:38 APTT 65 SECONDS (21-34) H 05/29/16 10:50 - Constitutional Appears: Confused, Chronically Ill - Head Exam Head Exam: ATRAUMATIC - Eye Exam Eye Exam: EOMI - ENT Exam ENT Exam: Mucous Membranes Moist - Neck Exam Neck Exam: Full ROM. absent: Lymphadenopathy - Respiratory Exam Respiratory Exam: Clear to Ausculation Bilateral. absent: Accessory Muscle Use - Cardiovascular Exam Cardiovascular Exam: Tachycardia. absent: Rubs - GI/Abdominal Exam GI & Abdominal Exam: Soft. absent: Guarding, Tenderness - Extremities Exam Extremities Exam: Pedal Edema Assessment and Plan - Assessment and Plan (Free Text) Plan: resolved jeff post respiratory failure extensive dvt in right leg polyuric phase of jeff check K and Mag for repletion continue rehab efforts
[2016-06-15 14:15] LABS: BASO # 0.2 K/uL (0.0-0.2); BASO % 1.4 % (0.0-2.0); HEMATOCRIT 38.4 % (35.0-51.0); LYMPH # 2.7 K/uL (1.0-4.3); LYMPH % 16.3 % (20.0-40.0); MEAN CELL VOLUME 87.3 fL (80.0-94.0); MEAN CORPUSCULAR HEMOGLOBIN 27.5 pg (27.0-31.0); MEAN CORPUSCULAR HGB CONC 31.6 g/dL (33.0-37.0); MEAN PLATELET VOLUME 11.7 fL (7.2-11.7); MONO # 1.4 K/uL (0.0-0.8); MONO % 8.2 % (0.0-10.0); RED CELL DISTRIBUTION WIDTH 16.4 % (11.5-14.5); WHITE BLOOD COUNT 16.8 K/uL (4.8-10.8)
[2016-06-15 14:24] LABS: CHLORIDE 100 mmol/L (98-107)
[2016-06-15 14:25] LABS: SODIUM 136 mmol/L (132-148)
[2016-06-15 14:26] LABS: POTASSIUM 3.7 mmol/L (3.6-5.2)
[2016-06-15 14:28] LABS: ALKALINE PHOSPHATASE 185 U/L (38-126); ALT/SGPT 52 U/L (21-72); AST/SGOT 39 U/L (17-59); BLOOD UREA NITROGEN 51 mg/dL (9-20); CARBON DIOXIDE 29 mmol/L (22-30); GFR AFRICAN-AMERICAN > 60; GLUCOSE,RANDOM 157 mg/dL (75-110); TOTAL PROTEIN 5.4 g/dL (6.3-8.3)
[2016-06-15 14:29] LABS: ALB/GLOB RATIO 0.7 (1.0-2.1); CALCIUM 7.6 mg/dl (8.6-10.4); MAGNESIUM 1.8 mg/dL (1.6-2.3); PHOSPHOROUS 3.6 mg/dL (2.5-4.5)
[2016-06-15] MEDS: Acetaminophen 650mg/20.3ml solution UD GT PRN (16:34)
--- NOTE | 2016-06-15 20:20 | CP.PCM.PN ---
Subjective - Date & Time of Evaluation Date of Evaluation: 06/15/16 Time of Evaluation: 02:15 - Subjective Subjective: dictated Objective - Vital Signs/Intake and Output Vital Signs (last 24 hours): Temp Pulse Resp BP Pulse Ox 97.5 F L 99 H 20 130/79 95 06/15/16 18:58 06/15/16 18:58 06/15/16 18:58 06/15/16 18:58 06/15/16 18:58 - Medications Medications: Current Medications Acetaminophen (Tylenol 650mg/20.3ml Solution Ud) 650 mg GT Q6 PRN PRN Reason: Fever >100.4 F Last Admin: 06/15/16 16:34 Dose: 650 mg Albuterol/Ipratropium (Duoneb 3 Mg/0.5 Mg (3 Ml) Ud) 3 ml INH RQ6 PRN PRN Reason: Wheezing Last Admin: 06/15/16 13:18 Dose: 3 ml Apixaban (Eliquis) 5 mg PO BID [facility] Last Admin: 06/15/16 18:22 Dose: 5 mg Aspirin (Aspirin Chewable) 81 mg PO DAILY [facility] Last Admin: 06/15/16 10:47 Dose: 81 mg Bacitracin (Bacitracin) 1 ea TOP BID [facility] Last Admin: 06/15/16 18:23 Dose: 1 ea Famotidine (Pepcid) 20 mg PO DAILY [facility] Last Admin: 06/15/16 10:47 Dose: 20 mg Tigecycline 50 mg/ Dextrose 100 mls @ 100 mls/hr IV Q12H [facility] Last Admin: 06/15/16 10:51 Dose: 100 mls/hr Insulin Detemir (Levemir) 15 unit SC Q12H [facility] Last Admin: 06/15/16 10:48 Dose: 15 unit Insulin Human Regular (Novolin R) 0 unit SC ACHS [facility] PRN Reason: Protocol Last Admin: 06/15/16 16:30 Dose: Not Given Saccharomyces Boulardii (Florastor) 250 mg PO BID [facility] Last Admin: 06/15/16 19:00 Dose: 250 mg - Labs Labs: 06/15/16 14:02 06/15/16 14:02 PT 13.9 SECONDS (9.7-12.2) H 05/27/16 09:38 INR 1.2 05/27/16 09:38 APTT 65 SECONDS (21-34) H 05/29/16 10:50
--- NOTE | 2016-06-15 20:56 | PN ---
DATE: 06/15/2016 The patient was still in the ICU. When I went to see him he was afebrile, surrounded by the family. He still has a TLC in the right neck, which if not needed, should be discontinued. Neck is supple. He denied any chest pain, no shortness of breath, no abdominal pain, no nausea, no v omiting. He said the right leg is feeling a little better. HEAD: Atraumatic, normocephalic. NECK: Supple. LUNGS: Clear. HEART: S1, S2 is regular. ABDOMEN: Soft, nontender. No guarding, no rigidity present. Right leg has edema, and it is getting a little softer. Left remains with extensive DVT, and left le g has some edema present. He is obese. White count is 16.8, hemoglobin 12.1, hematocrit is 38.4, platelet count is 229. BUN is 51, and crea tinine 1.1. The patient is improving. Urine culture is negative. So, will continue Tygacil to complete 5-7 days of treatment for UTI, and will follow. The triple lumen, if it is not being used, should be discontinued. Joshua Marsh MD cc: [id number] TT: 06/15/2016 20:56:00 Confirmation # [id number] Dictation # [id number] rao
--- NOTE | 2016-06-15 22:23 | CP.PCM.PN ---
Subjective - Date & Time of Evaluation Date of Evaluation: 06/15/16 Time of Evaluation: 19:05 - Subjective Subjective: No complaints. Objective - Vital Signs/Intake and Output Vital Signs (last 24 hours): Temp Pulse Resp BP Pulse Ox 97.5 F L 99 H 20 130/79 95 06/15/16 18:58 06/15/16 18:58 06/15/16 18:58 06/15/16 18:58 06/15/16 18:58 Intake and Output: 06/15/16 06/16/16 18:59 06:59 Intake Total 100 Balance 100 - Medications Medications: Current Medications Acetaminophen (Tylenol 650mg/20.3ml Solution Ud) 650 mg GT Q6 PRN PRN Reason: Fever >100.4 F Last Admin: 06/15/16 16:34 Dose: 650 mg Albuterol/Ipratropium (Duoneb 3 Mg/0.5 Mg (3 Ml) Ud) 3 ml INH RQ6 PRN PRN Reason: Wheezing Last Admin: 06/15/16 13:18 Dose: 3 ml Apixaban (Eliquis) 5 mg PO BID [facility] Last Admin: 06/15/16 18:22 Dose: 5 mg Aspirin (Aspirin Chewable) 81 mg PO DAILY [facility] Last Admin: 06/15/16 10:47 Dose: 81 mg Bacitracin (Bacitracin) 1 ea TOP BID [facility] Last Admin: 06/15/16 18:23 Dose: 1 ea Famotidine (Pepcid) 20 mg PO DAILY [facility] Last Admin: 06/15/16 10:47 Dose: 20 mg Tigecycline 50 mg/ Dextrose 100 mls @ 100 mls/hr IV Q12H [facility] Last Admin: 06/15/16 22:08 Dose: 100 mls/hr Insulin Detemir (Levemir) 15 unit SC Q12H [facility] Last Admin: 06/15/16 22:16 Dose: 15 unit Insulin Human Regular (Novolin R) 0 unit SC ACHS [facility] PRN Reason: Protocol Last Admin: 06/15/16 22:14 Dose: Not Given Saccharomyces Boulardii (Florastor) 250 mg PO BID [facility] Last Admin: 06/15/16 19:00 Dose: 250 mg - Labs Labs: 06/15/16 14:02 06/15/16 14:02 PT 13.9 SECONDS (9.7-12.2) H 05/27/16 09:38 INR 1.2 05/27/16 09:38 APTT 65 SECONDS (21-34) H 05/29/16 10:50 - Head Exam Head Exam: ATRAUMATIC - Eye Exam Eye Exam: Normal appearance - ENT Exam ENT Exam: Mucous Membranes Dry - Respiratory Exam Respiratory Exam: NORMAL BREATHING PATTERN - Cardiovascular Exam Cardiovascular Exam: +S1, +S2 - GI/Abdominal Exam GI & Abdominal Exam: Normal Bowel Sounds - Extremities Exam Extremities Exam: Pedal Edema Assessment and Plan (1) Deep venous thrombosis of lower extremity Assessment & Plan: therapeutic anticoagulation Status: Acute (2) Leukocytosis Assessment & Plan: on antibiotics Status: Acute (3) Coagulopathy Assessment & Plan: anticoagulation Status: Acute
--- NOTE | 2016-06-16 07:58 | CP.PCM.PN ---
<Rick Jernigan - Last Filed: 06/16/16 22:28> Subjective - Date & Time of Evaluation Date of Evaluation: 06/16/16 Time of Evaluation: 07:20 - Subjective Subjective: PGY-1 medicine progress note on Dr. Lubin service Patient seen and examined at bedside, chart reviewed and case discussed. Pt states that his pain is no different today and that his legs are still swollen. He has been tolerating his diet and passed a normal bowel movement yesterday. He has tried to ambulate but notes that the leg pain makes it very difficult. Patient denies fever, chills, headache, abdominal pain, nausea, vomiting, diarrhea, rash, dysuria or any additional acute complaints at this time. Objective - Vital Signs/Intake and Output Vital Signs (last 24 hours): Temp Pulse Resp BP Pulse Ox 97.9 F 114 H 20 144/88 94 L 06/15/16 23:37 06/15/16 23:37 06/15/16 23:37 06/15/16 23:37 06/15/16 23:37 Intake and Output: 06/16/16 06/16/16 06:59 18:59 Intake Total 100 Balance 100 - Medications Medications: Current Medications Acetaminophen (Tylenol 650mg/20.3ml Solution Ud) 650 mg GT Q6 PRN PRN Reason: Fever >100.4 F Last Admin: 06/15/16 16:34 Dose: 650 mg Albuterol/Ipratropium (Duoneb 3 Mg/0.5 Mg (3 Ml) Ud) 3 ml INH RQ6 PRN PRN Reason: Wheezing Last Admin: 06/15/16 13:18 Dose: 3 ml Apixaban (Eliquis) 5 mg PO BID [facility] Last Admin: 06/15/16 18:22 Dose: 5 mg Aspirin (Aspirin Chewable) 81 mg PO DAILY [facility] Last Admin: 06/15/16 10:47 Dose: 81 mg Bacitracin (Bacitracin) 1 ea TOP BID [facility] Last Admin: 06/15/16 18:23 Dose: 1 ea Famotidine (Pepcid) 20 mg PO DAILY [facility] Last Admin: 06/15/16 10:47 Dose: 20 mg Tigecycline 50 mg/ Dextrose 100 mls @ 100 mls/hr IV Q12H [facility] Last Admin: 06/15/16 22:08 Dose: 100 mls/hr Insulin Detemir (Levemir) 15 unit SC Q12H [facility] Last Admin: 06/15/16 22:16 Dose: 15 unit Insulin Human Regular (Novolin R) 0 unit SC ACHS [facility] PRN Reason: Protocol Last Admin: 06/15/16 22:14 Dose: Not Given Saccharomyces Boulardii (Florastor) 250 mg PO BID [facility] Last Admin: 06/15/16 19:00 Dose: 250 mg - Labs Labs: 06/15/16 14:02 06/15/16 14:02 PT 13.9 SECONDS (9.7-12.2) H 05/27/16 09:38 INR 1.2 05/27/16 09:38 APTT 65 SECONDS (21-34) H 05/29/16 10:50 - Additional Findings Additional findings: - Constitutional Appears: No Acute Distress, Chronically Ill - Head Exam Head Exam: ATRAUMATIC, NORMAL INSPECTION - Eye Exam Eye Exam: EOMI, Normal appearance - Neck Exam Neck Exam: Normal Inspection. absent: Tenderness - Respiratory Exam Respiratory Exam: Clear to Ausculation Bilateral, NORMAL BREATHING PATTERN - Cardiovascular Exam Cardiovascular Exam: REGULAR RHYTHM, +S1, +S2 - GI/Abdominal Exam GI & Abdominal Exam: Soft, Normal Bowel Sounds. absent: Guarding, Rigid, Tenderness - Extremities Exam Extremities Exam: Pedal Edema, Tenderness - Neurological Exam Neurological Exam: Alert, Awake, CN II-XII Intact Neuro motor strength exam: Left Upper Extremity: 4, Right Upper Extremity: 4 - Skin Skin Exam: Dry, Warm Assessment and Plan - Assessment and Plan (Free Text) Assessment: Acute respiratory failure 06/14-06/16: Resolved. Doing well on NC, however patient needs encouragement to keep it on, as he desaturates mildly to 92% when he removes NC. 06/12: Now extubated, on Bipap. Responding to question. 06/11: He had 5.5 liters of urine out over yesterday, hopefully with the HD - this will help with extubation 06/09: This morning patient self extubated and had to be reintubated. The sedation medication was changed; will be having more HD today to see if this will help with a successful extubation. 06/08: Remanins intubated, had HD yesterday. Hopefully can be weaned of ventilator soon 06/07: Patient will be getting HD at some point later today to see if this helps with extubation 06/06: I updated family members with reguards to recent events. He may or may not have a PE or this could be aspiration pneumonia for example. He is on IV abx and also he continues to recieve anticoagulation. * Intubated on 06/04/16 for "Code Blue" called on 06/04/16, patient did not lose pulse * Possible aspiration pneumonia vs less pulmonary embolus despite being on anticoagulation for extensive DVT right lower extremity * Unable to perform CT angio PE control secondary to chronic kidney disease Thrombosis of the R iliac and common femoral vein 06/17: f/u surgery 06/14-06/16: Re-consulted Surgery. Dr. Ortega, f/u recs. Not safe for intervention so close to critical care. Continue Eliquis, Elevate legs while in bed/seated, Walk often, no standing around, Wear compression stockings every day. 06/06: As mentioned before the patient was intended to have thrombolysis of the lower extremity with the chronic DVT however this was not able to be done immediately due to renal function. As of now on anticogulation. 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 normal venous flow noted in the left common femoral vein * Prior to respiratory arrest on 06/04/16, patient was planned for thrombolysis for this upcoming Tuesday 06/06 * Heme-oncology (Dr. 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 Ortega) on board Sepsis 06/14-06/16: Last Tmax 100.4 on 06/12. UC, sputum culture no growth. C. Diff negative 06/12: Just added on Tigecyclin IV (STOP 06/18) 06/11: TMax was 101.3, WBC was a little higher -06/10: Currently of off abx. WBC is 15 06/09: Currently abx are being stopped today and monitor how the patient does 06/08: WBC are 16 today, remains on IV abx 06/06: The most recent blood cultures have been negative for 48 hrs, remains on IV abx. WBC 14 today. No elevated temperatures today * Criteria admission: WBC: 43.8, HR>90, Cr> 2.0, platelets 103 and blood culture: Serattia from 05/25/16 * Now: Criteria: WBC: 25.5, Tmax: 102.1 bands>10, platelets normalized, Cr 2.0, chest xray for possible aspiration pneumonia pending new cultures * Urine culture: no growth * 05/27/16 Blood Venous: No growth After 5 days X2 * Infectious disease (Dr. Marsh) on board * Procalcitonin: 16.1 (05/26/16)--> 31.81 (05/27/16)-->ordered for new one * Aztreonam 1gram IV Q 12hours (active since 05/26/16) and Maxipime 1gram IV Q 12hours (active since 05/29/16) * Abd CT(05/28/16): bilateral inguinal lymphadenopathy, right greater than left. cirrhotic contour of liver. fatty atrophy of the pancreas, splenic atrophy w residula spleen, recitulation and edema seen in subcutanous soft tissues, cholelithiasis, consolidative changes at both lung bases which may represen underying infiltrate. * Ab US (05/28/16): enlarged liver with diffuse fatty infiltration, cholelithiasis, limited visualization of the pancreas * Echocardiogram (05/30/16): EF: 55-60% left ventricular ejection fraction is within normal range. left ventricular diastolic function is normal. trace to mild tricupsid regurgitation, PAP 35-45 mmgHG, mild pulmonary hypertension Acute renal failure on Chronic Kidney disease with Nephrotic Syndrome 06/14-06/15: BUN/Cr (48/1.1) Elevated, improving 06/12 creatine and renal function stable at the moment. His weight was 350lbs on 06/06 and now down to 304lbs 06/11: U/O was a lot yesterday 5.5, also the creatine has decreased to 1.2 06/09: More HD today 06/08: S/P Hemodialysis 06/07: HD to be started some point * Nephrology (Dr. Rhoades) on board-->help appreciated * NS 125 cc/hr (started 06/04/16) * Has dialysis catheter port placed on 06/04/16 by ICU * Monitor potassium levels Electrolyte Imbalance -06/14: Hypokalemia, K3.2 -> monitor and replete - RESOLVED 06/15 Diabetes Mellitus * Accuchecks Q6 hours * Novolin sliding scale subq 6hours * Diabetic source 20cc/hr via OGT * Prior a1c shows uncontrolled History of COPD/asthma * 06/14: Stop Mucormist * Former smoker, quit 5 years ago * currently intubated secondary to respiratory arrest secondary to likely pnuemonia * Chest xray (06/04/16): in site ett and apparent in situ NGT as aboove in distal aspect of the NGT is poorly delinated, cardiomegaly, pulmonary vascular congestive changes with bilateral lower love alveolar-type infiltrates and bilateral effusions History of Congestive Heart failure * 01/2016 ECHO- LV EF 60-65%, mild pulmonary HTN (see full report) * Echocardiogram (05/30/16): EF: 55-60% left ventricular ejection fraction is within normal range. left ventricular diastolic function is normal. trace to mild tricupsid regurgitation, PAP 35-45 mmgHG, mild pulmonary hypertension * off Crestor secondary to elevated BUN/Cr * off beta asmita secondary to acute respiratory failure; hx of copd se worsening bronchospasm * Aspirin 81mg PO daily History of Hypertension * Off antihypertensives Hx of Nonstemi * January 2016 hospitalization * No cardiac cath * Hx of CHF Prophylactic measures - SCDs contraindicated due to DVT - Eliquis 5mg PO BID for DVT Right LE - Pepcid 20mg PO daily for GI ppx - Tube feedings <Heaven Guerra V - Last Filed: 06/18/16 19:02> Objective - Vital Signs/Intake and Output Vital Signs (last 24 hours): Temp Pulse Resp BP Pulse Ox 97.3 F L 94 H 20 144/88 95 06/18/16 16:04 06/18/16 16:04 06/18/16 16:04 06/18/16 16:04 06/18/16 16:04 Intake and Output: 06/18/16 06/18/16 06:59 18:59 Intake Total 400 650 Balance 400 650 - Medications Medications: Current Medications Acetaminophen (Tylenol 650mg/20.3ml Solution Ud) 650 mg GT Q6 PRN PRN Reason: Fever >100.4 F Last Admin: 06/18/16 12:50 Dose: 650 mg Albuterol/Ipratropium (Duoneb 3 Mg/0.5 Mg (3 Ml) Ud) 3 ml INH RQ6 PRN PRN Reason: Wheezing Last Admin: 06/15/16 13:18 Dose: 3 ml Apixaban (Eliquis) 5 mg PO BID [facility] Last Admin: 06/18/16 17:09 Dose: 5 mg Aspirin (Aspirin Chewable) 81 mg PO DAILY [facility] Last Admin: 06/18/16 09:32 Dose: 81 mg Bacitracin (Bacitracin) 1 ea TOP BID [facility] Last Admin: 06/18/16 17:06 Dose: 1 ea Famotidine (Pepcid) 20 mg PO DAILY [facility] Last Admin: 06/18/16 09:32 Dose: 20 mg Furosemide (Lasix) 40 mg PO DAILY [facility] Last Admin: 06/18/16 09:31 Dose: 40 mg Linezolid (Zyvox 600mg/300ml D5w) 300 mls @ 200 mls/hr IVPB Q12H [facility] Last Admin: 06/18/16 17:05 Dose: 200 mls/hr Insulin Detemir (Levemir) 20 unit SC Q12H [facility] Last Admin: 06/18/16 11:11 Dose: Not Given Insulin Human Regular (Novolin R) 0 unit SC ACHS [facility] PRN Reason: Protocol Last Admin: 06/18/16 17:13 Dose: 2 unit Magnesium Oxide (Mag-Ox) 400 mg PO BID [facility] Last Admin: 06/18/16 17:06 Dose: 400 mg Morphine Sulfate (Morphine) 2 mg IVP Q4H PRN PRN Reason: Pain, moderate (4-7) Potassium Chloride (K-Dur 20 Meq Er Tab) 20 meq PO DAILY [facility] Last Admin: 06/18/16 09:32 Dose: 20 meq Saccharomyces Boulardii (Florastor) 250 mg PO BID [facility] Last Admin: 06/18/16 17:08 Dose: 250 mg - Labs Labs: 06/18/16 07:04 06/18/16 07:04 PT 13.9 SECONDS (9.7-12.2) H 05/27/16 09:38 INR 1.2 05/27/16 09:38 APTT 65 SECONDS (21-34) H 05/29/16 10:50 Assessment and Plan (1) Acute respiratory failure Status: Acute (2) Aspiration pneumonia Status: Acute (3) Sepsis Status: Acute (4) Leg edema, right Status: Acute (5) COPD (chronic obstructive pulmonary disease) Status: Chronic (6) Diabetes Status: Chronic (7) HTN (hypertension) Status: Chronic (8) Renal insufficiency Status: Chronic (9) Deep vein thrombophlebitis of right leg Status: Acute (10) Prophylactic measure Status: Acute Attending/Attestation - Attestation I have personally seen and examined this patient.: Yes I have fully participated in the care of the patient.: Yes I have reviewed all pertinent clinical information, including history, physical exam and plan: Yes Notes (Text): This is late computer entry for 06/16/16. Patient seen, examined and case discussed with day-time resident. Patient seen at bedside with his mother at bedside. Patient complaining of right leg pain. Patient is on IV antibiotic: Tigecycline which infectious disease recommends for 5-7 days total; last dose 06/18/16. Per surgery, recommend to continue eliquis, elevate legs while in bed (patient does not do while in bed), and to not stand (which patient has seen doing). Patient recently transferred out from ICU and recovering from sepsis.
[2016-06-16 08:15] LABS: BASO # 0.2 K/uL (0.0-0.2); BASO % 1.4 % (0.0-2.0); EOS % 7.2 % (0.0-4.0); HEMATOCRIT 35.1 % (35.0-51.0); LYMPH # 2.4 K/uL (1.0-4.3); LYMPH % 16.7 % (20.0-40.0); MEAN CELL VOLUME 87.7 fL (80.0-94.0); MEAN CORPUSCULAR HEMOGLOBIN 28.5 pg (27.0-31.0); MEAN CORPUSCULAR HGB CONC 32.5 g/dL (33.0-37.0); MEAN PLATELET VOLUME 11.5 fL (7.2-11.7); MONO # 1.6 K/uL (0.0-0.8); MONO % 11.5 % (0.0-10.0); RED CELL DISTRIBUTION WIDTH 16.7 % (11.5-14.5); WHITE BLOOD COUNT 14.2 K/uL (4.8-10.8)
[2016-06-16 08:21] LABS: CHLORIDE 99 mmol/L (98-107); POTASSIUM 3.6 mmol/L (3.6-5.2); SODIUM 136 mmol/L (132-148)
[2016-06-16 08:23] LABS: BILIRUBIN,TOTAL 0.7 mg/dL (0.2-1.3); GFR AFRICAN-AMERICAN > 60
[2016-06-16 08:24] LABS: ALB/GLOB RATIO 0.8 (1.0-2.1); ALKALINE PHOSPHATASE 160 U/L (38-126); ALT/SGPT 40 U/L (21-72); AST/SGOT 32 U/L (17-59); BLOOD UREA NITROGEN 48 mg/dL (9-20); CARBON DIOXIDE 29 mmol/L (22-30); GLUCOSE,RANDOM 149 mg/dL (75-110); PHOSPHOROUS 3.1 mg/dL (2.5-4.5); TOTAL PROTEIN 4.5 g/dL (6.3-8.3)
[2016-06-16 08:25] LABS: CALCIUM 7.3 mg/dl (8.6-10.4); MAGNESIUM 1.7 mg/dL (1.6-2.3)
[2016-06-16] MEDS: (Novolin R) Insulin Human Regular 100 units/ml vial SC SCH ×4 (08:26→21:26)
--- NOTE | 2016-06-16 10:01 | CP.PCM.PN ---
Subjective - Date & Time of Evaluation Date of Evaluation: 06/16/16 Time of Evaluation: 09:59 - Subjective Subjective: Alert; still with much right foot pain Still very swollen; off diuretics now BP controlled remains on anticoagulation No n, v, SOB, CPs, new rashes Objective - Vital Signs/Intake and Output Vital Signs (last 24 hours): Temp Pulse Resp BP Pulse Ox 97.6 F 85 20 133/79 92 L 06/16/16 08:12 06/16/16 08:12 06/16/16 08:12 06/16/16 08:12 06/16/16 08:12 Intake and Output: 06/16/16 06/16/16 06:59 18:59 Intake Total 100 Balance 100 - Medications Medications: Current Medications Acetaminophen (Tylenol 650mg/20.3ml Solution Ud) 650 mg GT Q6 PRN PRN Reason: Fever >100.4 F Last Admin: 06/15/16 16:34 Dose: 650 mg Albuterol/Ipratropium (Duoneb 3 Mg/0.5 Mg (3 Ml) Ud) 3 ml INH RQ6 PRN PRN Reason: Wheezing Last Admin: 06/15/16 13:18 Dose: 3 ml Apixaban (Eliquis) 5 mg PO BID [facility] Last Admin: 06/15/16 18:22 Dose: 5 mg Aspirin (Aspirin Chewable) 81 mg PO DAILY [facility] Last Admin: 06/15/16 10:47 Dose: 81 mg Bacitracin (Bacitracin) 1 ea TOP BID [facility] Last Admin: 06/15/16 18:23 Dose: 1 ea Famotidine (Pepcid) 20 mg PO DAILY [facility] Last Admin: 06/15/16 10:47 Dose: 20 mg Tigecycline 50 mg/ Dextrose 100 mls @ 100 mls/hr IV Q12H [facility] Last Admin: 06/15/16 22:08 Dose: 100 mls/hr Insulin Detemir (Levemir) 15 unit SC Q12H [facility] Last Admin: 06/15/16 22:16 Dose: 15 unit Insulin Human Regular (Novolin R) 0 unit SC ACHS [facility] PRN Reason: Protocol Last Admin: 06/16/16 08:26 Dose: Not Given Saccharomyces Boulardii (Florastor) 250 mg PO BID [facility] Last Admin: 06/15/16 19:00 Dose: 250 mg - Labs Labs: 06/16/16 08:01 06/16/16 08:01 PT 13.9 SECONDS (9.7-12.2) H 05/27/16 09:38 INR 1.2 05/27/16 09:38 APTT 65 SECONDS (21-34) H 05/29/16 10:50 - Constitutional Appears: No Acute Distress, Chronically Ill - Head Exam Head Exam: ATRAUMATIC, NORMAL INSPECTION - Eye Exam Eye Exam: EOMI, Normal appearance - Neck Exam Neck Exam: Normal Inspection. absent: Tenderness - Respiratory Exam Respiratory Exam: Clear to Ausculation Bilateral, NORMAL BREATHING PATTERN - Cardiovascular Exam Cardiovascular Exam: REGULAR RHYTHM, +S1 - GI/Abdominal Exam GI & Abdominal Exam: Soft. absent: Tenderness - Extremities Exam Extremities Exam: Pedal Edema, Tenderness - Neurological Exam Neurological Exam: Awake, CN II-XII Intact - Skin Skin Exam: Dry, Warm Assessment and Plan (1) Cellulitis Status: Acute (2) Chronic kidney disease, stage 3 (moderate) Status: Acute (3) Deep venous thrombosis of lower extremity Status: Acute (4) Proteinuria due to type 2 diabetes mellitus Status: Acute (5) Type 2 diabetes mellitus with diabetic nephropathy Status: Acute (6) Nephrotic syndrome Status: Acute (7) HENRIQUE (acute kidney injury) Status: Acute - Assessment and Plan (Free Text) Plan: re-add diuretics Eventually will need BREANA I
[2016-06-16] MEDS: Insulin Detemir 100 units/ml Vial (Levemir) SC SCH ×2 (10:31→21:35)
[2016-06-16] MEDS: Tigecycline 50 MG in Dextrose 5% In Water 100 ML IV SCH ×2 (10:31→21:41)
[2016-06-16] MEDS: Bacitracin 500 Units/gm Oint Foilpak UD TOP SCH ×2 (10:32→17:34)
[2016-06-16] MEDS: Saccharomyces Boulardi 250 mg Cap PO SCH ×2 (10:32→17:33)
[2016-06-16] MEDS: Potassium Chloride 20 mEq ER Tab PO SCH (10:32)
--- NOTE | 2016-06-17 | CP.PCM.PN ---
Subjective - Date & Time of Evaluation Date of Evaluation: 06/16/16 Time of Evaluation: 14:00 - Subjective Subjective: No complaints. Objective - Vital Signs/Intake and Output Vital Signs (last 24 hours): Temp Pulse Resp BP Pulse Ox 97.7 F 93 H 20 122/78 95 06/16/16 16:00 06/16/16 23:28 06/16/16 16:00 06/16/16 22:27 06/16/16 16:00 Intake and Output: 06/16/16 06/17/16 18:59 06:59 Intake Total 500 Balance 500 - Medications Medications: Current Medications Acetaminophen (Tylenol 650mg/20.3ml Solution Ud) 650 mg GT Q6 PRN PRN Reason: Fever >100.4 F Last Admin: 06/15/16 16:34 Dose: 650 mg Albuterol/Ipratropium (Duoneb 3 Mg/0.5 Mg (3 Ml) Ud) 3 ml INH RQ6 PRN PRN Reason: Wheezing Last Admin: 06/15/16 13:18 Dose: 3 ml Apixaban (Eliquis) 5 mg PO BID [facility] Last Admin: 06/16/16 17:32 Dose: 5 mg Aspirin (Aspirin Chewable) 81 mg PO DAILY [facility] Last Admin: 06/16/16 10:32 Dose: 81 mg Bacitracin (Bacitracin) 1 ea TOP BID [facility] Last Admin: 06/16/16 17:34 Dose: 1 ea Famotidine (Pepcid) 20 mg PO DAILY [facility] Last Admin: 06/16/16 10:32 Dose: 20 mg Furosemide (Lasix) 40 mg PO DAILY [facility] Last Admin: 06/16/16 10:32 Dose: 40 mg Tigecycline 50 mg/ Dextrose 100 mls @ 100 mls/hr IV Q12H [facility] Stop: 06/18/16 23:55 Last Admin: 06/16/16 21:41 Dose: 100 mls/hr Insulin Detemir (Levemir) 15 unit SC Q12H [facility] Last Admin: 06/16/16 21:35 Dose: 15 unit Insulin Human Regular (Novolin R) 0 unit SC ACHS [facility] PRN Reason: Protocol Last Admin: 06/16/16 21:26 Dose: Not Given Potassium Chloride (K-Dur 20 Meq Er Tab) 20 meq PO DAILY [facility] Last Admin: 06/16/16 10:32 Dose: 20 meq Saccharomyces Boulardii (Florastor) 250 mg PO BID [facility] Last Admin: 06/16/16 17:33 Dose: 250 mg - Labs Labs: 06/16/16 08:01 06/16/16 08:01 PT 13.9 SECONDS (9.7-12.2) H 05/27/16 09:38 INR 1.2 05/27/16 09:38 APTT 65 SECONDS (21-34) H 05/29/16 10:50 - Head Exam Head Exam: ATRAUMATIC - Eye Exam Eye Exam: Normal appearance - ENT Exam ENT Exam: Mucous Membranes Dry - Respiratory Exam Respiratory Exam: NORMAL BREATHING PATTERN - Cardiovascular Exam Cardiovascular Exam: +S1, +S2 - GI/Abdominal Exam GI & Abdominal Exam: Normal Bowel Sounds - Extremities Exam Extremities Exam: Pedal Edema Assessment and Plan (1) Deep venous thrombosis of lower extremity Assessment & Plan: therapeutic anticoagulation Status: Acute (2) Leukocytosis Assessment & Plan: on antibiotics Status: Acute (3) Coagulopathy Status: Acute
[2016-06-17 07:09] LABS: BASO # 0.2 K/uL (0.0-0.2); BASO % 1.5 % (0.0-2.0); EOS # 1.2 K/uL (0.0-0.7); EOS % 7.2 % (0.0-4.0); HEMATOCRIT 39.2 % (35.0-51.0); LYMPH # 3.1 K/uL (1.0-4.3); LYMPH % 18.7 % (20.0-40.0); MEAN CELL VOLUME 87.8 fL (80.0-94.0); MEAN CORPUSCULAR HGB CONC 31.9 g/dL (33.0-37.0); MEAN PLATELET VOLUME 11.4 fL (7.2-11.7); MONO # 2.4 K/uL (0.0-0.8); MONO % 14.7 % (0.0-10.0); NRBC % 0.1 % (0.0-2.0); RED CELL DISTRIBUTION WIDTH 16.8 % (11.5-14.5); WHITE BLOOD COUNT 16.5 K/uL (4.8-10.8)
[2016-06-17 07:27] LABS: CHLORIDE 98 mmol/L (98-107); SODIUM 139 mmol/L (132-148)
[2016-06-17 07:28] LABS: POTASSIUM 3.9 mmol/L (3.6-5.2)
[2016-06-17 07:30] LABS: ALB/GLOB RATIO 0.8 (1.0-2.1); ALKALINE PHOSPHATASE 201 U/L (38-126); AST/SGOT 35 U/L (17-59); BLOOD UREA NITROGEN 42 mg/dL (9-20); CARBON DIOXIDE 30 mmol/L (22-30); GFR AFRICAN-AMERICAN > 60; GLUCOSE,RANDOM 135 mg/dL (75-110); PHOSPHOROUS 2.9 mg/dL (2.5-4.5); TOTAL PROTEIN 5.2 g/dL (6.3-8.3)
[2016-06-17 07:31] LABS: ALT/SGPT 46 U/L (21-72); CALCIUM 7.4 mg/dl (8.6-10.4); MAGNESIUM 1.6 mg/dL (1.6-2.3)
--- NOTE | 2016-06-17 07:56 | CP.PCM.PN ---
<Rick Jernigan - Last Filed: 06/17/16 23:03> Subjective - Date & Time of Evaluation Date of Evaluation: 06/17/16 Time of Evaluation: 07:20 - Subjective Subjective: PGY-1 medicine progress note on Dr. Lubin service Patient seen and examine while seated in a chair, chart reviewed and case discussed. Pt states that his pain is no different today and that his legs are still swollen. The patient states that he didn't sleep last night and has had some nasal congestion and sniffles this AM. Patient was reminded to avoid sitting in chairs and to ambulate if possible and to elevate his right leg if he lays in bed. Patient denies fever, chills, headache, abdominal pain, nausea, vomiting, diarrhea, rash, dysuria or any additional acute complaints at this time. Objective - Vital Signs/Intake and Output Vital Signs (last 24 hours): Temp Pulse Resp BP Pulse Ox 97.9 F 93 H 20 112/73 92 L 06/16/16 23:30 06/16/16 23:30 06/16/16 23:30 06/16/16 23:30 06/16/16 23:30 Intake and Output: 06/17/16 06/17/16 06:59 18:59 Intake Total 740 Balance 740 - Medications Medications: Current Medications Acetaminophen (Tylenol 650mg/20.3ml Solution Ud) 650 mg GT Q6 PRN PRN Reason: Fever >100.4 F Last Admin: 06/15/16 16:34 Dose: 650 mg Albuterol/Ipratropium (Duoneb 3 Mg/0.5 Mg (3 Ml) Ud) 3 ml INH RQ6 PRN PRN Reason: Wheezing Last Admin: 06/15/16 13:18 Dose: 3 ml Apixaban (Eliquis) 5 mg PO BID [facility] Last Admin: 06/16/16 17:32 Dose: 5 mg Aspirin (Aspirin Chewable) 81 mg PO DAILY [facility] Last Admin: 06/16/16 10:32 Dose: 81 mg Bacitracin (Bacitracin) 1 ea TOP BID [facility] Last Admin: 06/16/16 17:34 Dose: 1 ea Famotidine (Pepcid) 20 mg PO DAILY [facility] Last Admin: 06/16/16 10:32 Dose: 20 mg Furosemide (Lasix) 40 mg PO DAILY [facility] Last Admin: 06/16/16 10:32 Dose: 40 mg Tigecycline 50 mg/ Dextrose 100 mls @ 100 mls/hr IV Q12H [facility] Stop: 06/18/16 23:55 Last Admin: 06/16/16 21:41 Dose: 100 mls/hr Insulin Detemir (Levemir) 15 unit SC Q12H [facility] Last Admin: 06/16/16 21:35 Dose: 15 unit Insulin Human Regular (Novolin R) 0 unit SC ACHS [facility] PRN Reason: Protocol Last Admin: 06/16/16 21:26 Dose: Not Given Potassium Chloride (K-Dur 20 Meq Er Tab) 20 meq PO DAILY [facility] Last Admin: 06/16/16 10:32 Dose: 20 meq Saccharomyces Boulardii (Florastor) 250 mg PO BID [facility] Last Admin: 06/16/16 17:33 Dose: 250 mg - Labs Labs: 06/17/16 07:00 06/17/16 07:00 PT 13.9 SECONDS (9.7-12.2) H 05/27/16 09:38 INR 1.2 05/27/16 09:38 APTT 65 SECONDS (21-34) H 05/29/16 10:50 - Additional Findings Additional findings: - Constitutional Appears: No Acute Distress, Chronically Ill - Head Exam Head Exam: ATRAUMATIC, NORMAL INSPECTION - Eye Exam Eye Exam: EOMI, Normal appearance - Neck Exam Neck Exam: Normal Inspection. absent: Tenderness - Respiratory Exam Respiratory Exam: Clear to Ausculation Bilateral, NORMAL BREATHING PATTERN - Cardiovascular Exam Cardiovascular Exam: REGULAR RHYTHM, +S1, +S2 - GI/Abdominal Exam GI & Abdominal Exam: Soft, Normal Bowel Sounds. absent: Guarding, Rigid, Tenderness - Extremities Exam Extremities Exam: Pedal Edema, Tenderness - Neurological Exam Neurological Exam: Alert, Awake, CN II-XII Intact Neuro motor strength exam: Left Upper Extremity: 4, Right Upper Extremity: 4 - Skin Skin Exam: Dry, Warm Assessment and Plan - Assessment and Plan (Free Text) Assessment: Acute respiratory failure 06/14-06/17: Resolved. Doing well on NC, however patient needs encouragement to keep it on, as he desaturates mildly to 92% when he removes NC. 06/12: Now extubated, on Bipap. Responding to question. 06/11: He had 5.5 liters of urine out over yesterday, hopefully with the HD - this will help with extubation 06/09: This morning patient self extubated and had to be reintubated. The sedation medication was changed; will be having more HD today to see if this will help with a successful extubation. 06/08: Remanins intubated, had HD yesterday. Hopefully can be weaned of ventilator soon 06/07: Patient will be getting HD at some point later today to see if this helps with extubation 06/06: I updated family members with reguards to recent events. He may or may not have a PE or this could be aspiration pneumonia for example. He is on IV abx and also he continues to recieve anticoagulation. * Intubated on 06/04/16 for "Code Blue" called on 06/04/16, patient did not lose pulse * Possible aspiration pneumonia vs less pulmonary embolus despite being on anticoagulation for extensive DVT right lower extremity * Unable to perform CT angio PE control secondary to chronic kidney disease Thrombosis of the R iliac and common femoral vein 06/17: No plans for surgery per Dr. Ortega. Will require life long anticoagulation. To resume therapuetic Elqiuis this evening at 9pm. 06/14-06/16: Re-consulted Surgery. Dr. Ortega, f/u recs. Not safe for intervention so close to critical care. Continue Eliquis, Elevate legs while in bed/seated, Walk often, no standing around, Wear compression stockings every day. 06/06: As mentioned before the patient was intended to have thrombolysis of the lower extremity with the chronic DVT however this was not able to be done immediately due to renal function. As of now on anticogulation. 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 normal venous flow noted in the left common femoral vein * Prior to respiratory arrest on 06/04/16, patient was planned for thrombolysis for this upcoming Tuesday 06/06 * Heme-oncology (Dr. 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 Ortega) on board Sepsis 06/18: Tigecyclin IV to be completed 06/18. 06/17: Midline placed, TLC removed. 06/14-06/17: Last Tmax 100.4 on 06/12. UC, sputum culture no growth. C. Diff negative 06/12: Just added on Tigecyclin IV (STOP 06/18) 06/11: TMax was 101.3, WBC was a little higher -17 06/10: Currently of off abx. WBC is 15 06/09: Currently abx are being stopped today and monitor how the patient does 06/08: WBC are 16 today, remains on IV abx 06/06: The most recent blood cultures have been negative for 48 hrs, remains on IV abx. WBC 14 today. No elevated temperatures today * Criteria admission: WBC: 43.8, HR>90, Cr> 2.0, platelets 103 and blood culture: Serattia from 05/25/16 * Now: Criteria: WBC: 25.5, Tmax: 102.1 bands>10, platelets normalized, Cr 2.0, chest xray for possible aspiration pneumonia pending new cultures * Urine culture: no growth * 05/27/16 Blood Venous: No growth After 5 days X2 * Infectious disease (Dr. Marsh) on board * Procalcitonin: 16.1 (05/26/16)--> 31.81 (05/27/16)-->ordered for new one * Aztreonam 1gram IV Q 12hours (active since 05/26/16) and Maxipime 1gram IV Q 12hours (active since 05/29/16) * Abd CT(05/28/16): bilateral inguinal lymphadenopathy, right greater than left. cirrhotic contour of liver. fatty atrophy of the pancreas, splenic atrophy w residula spleen, recitulation and edema seen in subcutanous soft tissues, cholelithiasis, consolidative changes at both lung bases which may represen underying infiltrate. * Ab US (05/28/16): enlarged liver with diffuse fatty infiltration, cholelithiasis, limited visualization of the pancreas * Echocardiogram (05/30/16): EF: 55-60% left ventricular ejection fraction is within normal range. left ventricular diastolic function is normal. trace to mild tricupsid regurgitation, PAP 35-45 mmgHG, mild pulmonary hypertension Acute renal failure on Chronic Kidney disease with Nephrotic Syndrome 06/14-06/17: BUN/Cr Elevated, continues to improve (see emr) 06/12 creatine and renal function stable at the moment. His weight was 350lbs on 06/06 and now down to 304lbs 06/11: U/O was a lot yesterday 5.5, also the creatine has decreased to 1.2 06/09: More HD today 06/08: S/P Hemodialysis 06/07: HD to be started some point * Nephrology (Dr. Rhoades) on board-->help appreciated * NS 125 cc/hr (started 06/04/16) * Has dialysis catheter port placed on 06/04/16 by ICU * Monitor potassium levels Electrolyte Imbalance -06/14: Hypokalemia, K3.2 -> monitor and replete - RESOLVED 06/15 Diabetes Mellitus * 06/17: Glucose 135 * Accuchecks Q6 hours * Novolin sliding scale subq 6hours * Diabetic source 20cc/hr via OGT * Prior a1c shows uncontrolled History of COPD/asthma * 06/14: Stop Mucormist * Former smoker, quit 5 years ago * currently intubated secondary to respiratory arrest secondary to likely pnuemonia * Chest xray (06/04/16): in site ett and apparent in situ NGT as aboove in distal aspect of the NGT is poorly delinated, cardiomegaly, pulmonary vascular congestive changes with bilateral lower love alveolar-type infiltrates and bilateral effusions History of Congestive Heart failure * 01/2016 ECHO- LV EF 60-65%, mild pulmonary HTN (see full report) * Echocardiogram (05/30/16): EF: 55-60% left ventricular ejection fraction is within normal range. left ventricular diastolic function is normal. trace to mild tricupsid regurgitation, PAP 35-45 mmgHG, mild pulmonary hypertension * off Crestor secondary to elevated BUN/Cr * off beta asmita secondary to acute respiratory failure; hx of copd se worsening bronchospasm * Aspirin 81mg PO daily History of Hypertension * Off antihypertensives Hx of Nonstemi * January 2016 hospitalization * No cardiac cath * Hx of CHF Prophylactic measures - SCDs contraindicated due to DVT - Eliquis 5mg PO BID for DVT Right LE - Pepcid 20mg PO daily for GI ppx - Tube feedings <Heaven Guerra V - Last Filed: 06/18/16 18:58> Objective - Vital Signs/Intake and Output Vital Signs (last 24 hours): Temp Pulse Resp BP Pulse Ox 97.3 F L 94 H 20 144/88 95 06/18/16 16:04 06/18/16 16:04 06/18/16 16:04 06/18/16 16:04 06/18/16 16:04 Intake and Output: 06/18/16 06/18/16 06:59 18:59 Intake Total 400 650 Balance 400 650 - Medications Medications: Current Medications Acetaminophen (Tylenol 650mg/20.3ml Solution Ud) 650 mg GT Q6 PRN PRN Reason: Fever >100.4 F Last Admin: 06/18/16 12:50 Dose: 650 mg Albuterol/Ipratropium (Duoneb 3 Mg/0.5 Mg (3 Ml) Ud) 3 ml INH RQ6 PRN PRN Reason: Wheezing Last Admin: 06/15/16 13:18 Dose: 3 ml Apixaban (Eliquis) 5 mg PO BID [facility] Last Admin: 06/18/16 17:09 Dose: 5 mg Aspirin (Aspirin Chewable) 81 mg PO DAILY [facility] Last Admin: 06/18/16 09:32 Dose: 81 mg Bacitracin (Bacitracin) 1 ea TOP BID [facility] Last Admin: 06/18/16 17:06 Dose: 1 ea Famotidine (Pepcid) 20 mg PO DAILY [facility] Last Admin: 06/18/16 09:32 Dose: 20 mg Furosemide (Lasix) 40 mg PO DAILY [facility] Last Admin: 06/18/16 09:31 Dose: 40 mg Linezolid (Zyvox 600mg/300ml D5w) 300 mls @ 200 mls/hr IVPB Q12H [facility] Last Admin: 06/18/16 17:05 Dose: 200 mls/hr Insulin Detemir (Levemir) 20 unit SC Q12H [facility] Last Admin: 06/18/16 11:11 Dose: Not Given Insulin Human Regular (Novolin R) 0 unit SC ACHS [facility] PRN Reason: Protocol Last Admin: 06/18/16 17:13 Dose: 2 unit Magnesium Oxide (Mag-Ox) 400 mg PO BID [facility] Last Admin: 06/18/16 17:06 Dose: 400 mg Morphine Sulfate (Morphine) 2 mg IVP Q4H PRN PRN Reason: Pain, moderate (4-7) Potassium Chloride (K-Dur 20 Meq Er Tab) 20 meq PO DAILY [facility] Last Admin: 06/18/16 09:32 Dose: 20 meq Saccharomyces Boulardii (Florastor) 250 mg PO BID [facility] Last Admin: 06/18/16 17:08 Dose: 250 mg - Labs Labs: 06/18/16 07:04 06/18/16 07:04 PT 13.9 SECONDS (9.7-12.2) H 05/27/16 09:38 INR 1.2 05/27/16 09:38 APTT 65 SECONDS (21-34) H 05/29/16 10:50 Assessment and Plan (1) Acute respiratory failure Status: Acute (2) Aspiration pneumonia Status: Acute (3) Sepsis Status: Acute (4) Leg edema, right Status: Acute (5) COPD (chronic obstructive pulmonary disease) Status: Chronic (6) Diabetes Status: Chronic (7) HTN (hypertension) Status: Chronic (8) Renal insufficiency Status: Chronic (9) Deep vein thrombophlebitis of right leg Status: Acute (10) Prophylactic measure Status: Acute Attending/Attestation - Attestation I have personally seen and examined this patient.: Yes I have fully participated in the care of the patient.: Yes I have reviewed all pertinent clinical information, including history, physical exam and plan: Yes Notes (Text): This is late computer entry for 06/17/16. Patient seen, examined and case discussed with day-time resident. Patient has TLC and is difficult access for peripheral line. Ordered for midline to replace TLC to reduce line sepsis and patient is on IV abx. Patient permits for midline access. Discussed with Dr. Ortega, he does not recommend OR for the patient at this time, given the course of hospitalization and recommends lifelong anticoagulation. Discussed with patient with his at bedside patient reiterated he wants surgery given his leg pain and wants a second opinion. Second opinion consult to Dr. Bello (vascular surgery). Per infectious disease, recommended to remove TLC and send for culture given persistent leukocytosis, discontinue Tigecylcine and start Zyvox. Tyree held for placement for midline and removal of TLC and resume later in the evening. I explained to the patient he likes has antiphospholipid syndrome which could explain why he makes clots inspite of his xarelto; but patient upset and preoccupied by pain in his right leg caused by DVT. Patient started on morphine PRN for right leg pain.
[2016-06-17] MEDS: Potassium Chloride 20 mEq ER Tab PO SCH (09:14)
[2016-06-17] MEDS: Saccharomyces Boulardi 250 mg Cap PO SCH ×2 (09:15→17:44)
[2016-06-17] MEDS: Insulin Detemir 100 units/ml Vial (Levemir) SC SCH ×2 (09:15→21:39)
[2016-06-17] MEDS: (Novolin R) Insulin Human Regular 100 units/ml vial SC SCH ×4 (09:15→21:41)
[2016-06-17] MEDS: Bacitracin 500 Units/gm Oint Foilpak UD TOP SCH ×2 (09:15→17:45)
[2016-06-17] MEDS: Tigecycline 50 MG in Dextrose 5% In Water 100 ML IV SCH (09:31)
--- NOTE | 2016-06-17 14:33 | CP.PCM.PN ---
Subjective - Date & Time of Evaluation Date of Evaluation: 06/17/16 Time of Evaluation: 14:31 - Subjective Subjective: Alert; no new complaints Labs reviewed- satisfactory, renal function stable Swelling less Right foot still painful BP controlled Objective - Vital Signs/Intake and Output Vital Signs (last 24 hours): Temp Pulse Resp BP Pulse Ox 97.7 F 94 H 18 113/76 95 06/17/16 08:00 06/17/16 08:00 06/17/16 08:00 06/17/16 09:32 06/17/16 08:00 Intake and Output: 06/17/16 06/17/16 06:59 18:59 Intake Total 740 Balance 740 - Medications Medications: Current Medications Acetaminophen (Tylenol 650mg/20.3ml Solution Ud) 650 mg GT Q6 PRN PRN Reason: Fever >100.4 F Last Admin: 06/15/16 16:34 Dose: 650 mg Albuterol/Ipratropium (Duoneb 3 Mg/0.5 Mg (3 Ml) Ud) 3 ml INH RQ6 PRN PRN Reason: Wheezing Last Admin: 06/15/16 13:18 Dose: 3 ml Apixaban (Eliquis) 5 mg PO BID [facility] Last Admin: 06/17/16 09:15 Dose: 5 mg Aspirin (Aspirin Chewable) 81 mg PO DAILY [facility] Last Admin: 06/17/16 09:15 Dose: 81 mg Bacitracin (Bacitracin) 1 ea TOP BID [facility] Last Admin: 06/17/16 09:15 Dose: 1 ea Famotidine (Pepcid) 20 mg PO DAILY [facility] Last Admin: 06/17/16 09:14 Dose: 20 mg Furosemide (Lasix) 40 mg PO DAILY [facility] Last Admin: 06/17/16 09:32 Dose: 40 mg Tigecycline 50 mg/ Dextrose 100 mls @ 100 mls/hr IV Q12H [facility] Stop: 06/18/16 23:55 Last Admin: 06/17/16 09:31 Dose: 100 mls/hr Insulin Detemir (Levemir) 15 unit SC Q12H [facility] Last Admin: 06/17/16 09:15 Dose: 15 unit Insulin Human Regular (Novolin R) 0 unit SC ACHS [facility] PRN Reason: Protocol Last Admin: 06/17/16 13:30 Dose: 4 unit Potassium Chloride (K-Dur 20 Meq Er Tab) 20 meq PO DAILY [facility] Last Admin: 06/17/16 09:14 Dose: 20 meq Saccharomyces Boulardii (Florastor) 250 mg PO BID [facility] Last Admin: 06/17/16 09:15 Dose: 250 mg - Labs Labs: 06/17/16 07:00 06/17/16 07:00 PT 13.9 SECONDS (9.7-12.2) H 05/27/16 09:38 INR 1.2 05/27/16 09:38 APTT 65 SECONDS (21-34) H 05/29/16 10:50 - Constitutional Appears: No Acute Distress, Chronically Ill - Head Exam Head Exam: ATRAUMATIC, NORMAL INSPECTION - Eye Exam Eye Exam: EOMI, Normal appearance - Neck Exam Neck Exam: Normal Inspection. absent: Tenderness - Respiratory Exam Respiratory Exam: Clear to Ausculation Bilateral, NORMAL BREATHING PATTERN - Cardiovascular Exam Cardiovascular Exam: REGULAR RHYTHM, +S1 - GI/Abdominal Exam GI & Abdominal Exam: Soft. absent: Tenderness - Extremities Exam Extremities Exam: Pedal Edema. absent: Tenderness - Neurological Exam Neurological Exam: Alert, CN II-XII Intact - Skin Skin Exam: Dry, Warm Assessment and Plan (1) Cellulitis Status: Acute (2) Chronic kidney disease, stage 3 (moderate) Status: Acute (3) Deep venous thrombosis of lower extremity Status: Acute (4) Proteinuria due to type 2 diabetes mellitus Status: Acute (5) Type 2 diabetes mellitus with diabetic nephropathy Status: Acute (6) Nephrotic syndrome Status: Acute (7) HENRIQUE (acute kidney injury) Status: Resolved - Assessment and Plan (Free Text) Plan: Continue same diuretics Monitor renal function
[2016-06-17] MEDS: Linezolid 600 mg in D5W 300 ml 300 ML IVPB SCH (17:48)
--- NOTE | 2016-06-17 21:01 | CP.PCM.PN ---
Subjective - Date & Time of Evaluation Date of Evaluation: 06/17/16 Time of Evaluation: 13:15 - Subjective Subjective: No complaints. Objective - Vital Signs/Intake and Output Vital Signs (last 24 hours): Temp Pulse Resp BP Pulse Ox 97.9 F 95 H 20 145/84 96 06/17/16 15:46 06/17/16 15:46 06/17/16 15:46 06/17/16 15:46 06/17/16 15:46 - Medications Medications: Current Medications Acetaminophen (Tylenol 650mg/20.3ml Solution Ud) 650 mg GT Q6 PRN PRN Reason: Fever >100.4 F Last Admin: 06/15/16 16:34 Dose: 650 mg Albuterol/Ipratropium (Duoneb 3 Mg/0.5 Mg (3 Ml) Ud) 3 ml INH RQ6 PRN PRN Reason: Wheezing Last Admin: 06/15/16 13:18 Dose: 3 ml Apixaban (Eliquis) 5 mg PO BID [facility] Last Admin: 06/17/16 09:15 Dose: 5 mg Aspirin (Aspirin Chewable) 81 mg PO DAILY [facility] Last Admin: 06/17/16 09:15 Dose: 81 mg Bacitracin (Bacitracin) 1 ea TOP BID [facility] Last Admin: 06/17/16 17:45 Dose: 1 ea Famotidine (Pepcid) 20 mg PO DAILY [facility] Last Admin: 06/17/16 09:14 Dose: 20 mg Furosemide (Lasix) 40 mg PO DAILY [facility] Last Admin: 06/17/16 09:32 Dose: 40 mg Linezolid (Zyvox 600mg/300ml D5w) 300 mls @ 200 mls/hr IVPB Q12H [facility] Last Admin: 06/17/16 17:48 Dose: 200 mls/hr Insulin Detemir (Levemir) 15 unit SC Q12H [facility] Last Admin: 06/17/16 09:15 Dose: 15 unit Insulin Human Regular (Novolin R) 0 unit SC ACHS [facility] PRN Reason: Protocol Last Admin: 06/17/16 17:45 Dose: 2 unit Morphine Sulfate (Morphine) 2 mg IVP Q4H PRN PRN Reason: Pain, moderate (4-7) Potassium Chloride (K-Dur 20 Meq Er Tab) 20 meq PO DAILY [facility] Last Admin: 06/17/16 09:14 Dose: 20 meq Saccharomyces Boulardii (Florastor) 250 mg PO BID [facility] Last Admin: 06/17/16 17:44 Dose: 250 mg - Labs Labs: 06/17/16 07:00 06/17/16 07:00 PT 13.9 SECONDS (9.7-12.2) H 05/27/16 09:38 INR 1.2 05/27/16 09:38 APTT 65 SECONDS (21-34) H 05/29/16 10:50 - Head Exam Head Exam: ATRAUMATIC - Eye Exam Eye Exam: Normal appearance - ENT Exam ENT Exam: Mucous Membranes Dry - Respiratory Exam Respiratory Exam: NORMAL BREATHING PATTERN - Cardiovascular Exam Cardiovascular Exam: +S1, +S2 - GI/Abdominal Exam GI & Abdominal Exam: Normal Bowel Sounds - Extremities Exam Extremities Exam: Pedal Edema Assessment and Plan (1) Deep venous thrombosis of lower extremity Assessment & Plan: on anticoagulation Status: Acute (2) Leukocytosis Assessment & Plan: on antibiotics. Status: Acute (3) Coagulopathy Assessment & Plan: anticoagulation Status: Acute
[2016-06-18] MEDS: Linezolid 600 mg in D5W 300 ml 300 ML IVPB SCH ×2 (05:21→17:05)
[2016-06-18 07:16] LABS: BASO # 0.2 K/uL (0.0-0.2); BASO % 1.4 % (0.0-2.0); EOS # 1.3 K/uL (0.0-0.7); EOS % 7.6 % (0.0-4.0); HEMATOCRIT 35.7 % (35.0-51.0); LYMPH # 2.6 K/uL (1.0-4.3); LYMPH % 15.2 % (20.0-40.0); MEAN CELL VOLUME 87.2 fL (80.0-94.0); MEAN CORPUSCULAR HEMOGLOBIN 28.3 pg (27.0-31.0); MEAN CORPUSCULAR HGB CONC 32.5 g/dL (33.0-37.0); MEAN PLATELET VOLUME 10.9 fL (7.2-11.7); MONO # 2.7 K/uL (0.0-0.8); RED CELL DISTRIBUTION WIDTH 16.9 % (11.5-14.5); WHITE BLOOD COUNT 16.8 K/uL (4.8-10.8)
[2016-06-18] MEDS: (Novolin R) Insulin Human Regular 100 units/ml vial SC SCH ×3 (07:35→17:13)
--- NOTE | 2016-06-18 07:44 | CP.PCM.PN ---
<Elen Weir - Last Filed: 06/18/16 18:03> Subjective - Date & Time of Evaluation Date of Evaluation: 06/18/16 Time of Evaluation: 09:15 - Subjective Subjective: PGY1 Medicine Note for Dr. Guerra Patient seen and examined at bedside. Patient was in no acute distress and had no acute events overnight as per nursing but was not in a good mood. Patient denied any chest pain, sob, abdominal pain, nausea, vomiting, bowel/bladder complaints, rash, focal weakness. He continues to complain of chronic pain in his right leg. Objective - Vital Signs/Intake and Output Vital Signs (last 24 hours): Temp Pulse Resp BP Pulse Ox 98.3 F 104 H 20 138/71 96 06/17/16 23:00 06/18/16 00:00 06/17/16 23:00 06/17/16 23:00 06/17/16 23:00 Intake and Output: 06/18/16 06/18/16 06:59 18:59 Intake Total 400 Balance 400 - Medications Medications: Current Medications Acetaminophen (Tylenol 650mg/20.3ml Solution Ud) 650 mg GT Q6 PRN PRN Reason: Fever >100.4 F Last Admin: 06/15/16 16:34 Dose: 650 mg Albuterol/Ipratropium (Duoneb 3 Mg/0.5 Mg (3 Ml) Ud) 3 ml INH RQ6 PRN PRN Reason: Wheezing Last Admin: 06/15/16 13:18 Dose: 3 ml Apixaban (Eliquis) 5 mg PO BID [facility] Last Admin: 06/17/16 09:15 Dose: 5 mg Aspirin (Aspirin Chewable) 81 mg PO DAILY [facility] Last Admin: 06/17/16 09:15 Dose: 81 mg Bacitracin (Bacitracin) 1 ea TOP BID [facility] Last Admin: 06/17/16 17:45 Dose: 1 ea Famotidine (Pepcid) 20 mg PO DAILY [facility] Last Admin: 06/17/16 09:14 Dose: 20 mg Furosemide (Lasix) 40 mg PO DAILY [facility] Last Admin: 06/17/16 09:32 Dose: 40 mg Linezolid (Zyvox 600mg/300ml D5w) 300 mls @ 200 mls/hr IVPB Q12H [facility] Last Admin: 06/18/16 05:21 Dose: 200 mls/hr Insulin Detemir (Levemir) 15 unit SC Q12H [facility] Last Admin: 06/17/16 21:39 Dose: 15 unit Insulin Human Regular (Novolin R) 0 unit SC ACHS [facility] PRN Reason: Protocol Last Admin: 06/17/16 21:41 Dose: Not Given Morphine Sulfate (Morphine) 2 mg IVP Q4H PRN PRN Reason: Pain, moderate (4-7) Potassium Chloride (K-Dur 20 Meq Er Tab) 20 meq PO DAILY [facility] Last Admin: 06/17/16 09:14 Dose: 20 meq Saccharomyces Boulardii (Florastor) 250 mg PO BID [facility] Last Admin: 06/17/16 17:44 Dose: 250 mg - Labs Labs: 06/18/16 07:04 06/17/16 07:00 PT 13.9 SECONDS (9.7-12.2) H 05/27/16 09:38 INR 1.2 05/27/16 09:38 APTT 65 SECONDS (21-34) H 05/29/16 10:50 - Constitutional Appears: No Acute Distress, Chronically Ill - Head Exam Head Exam: ATRAUMATIC, NORMAL INSPECTION, NORMOCEPHALIC - Eye Exam Eye Exam: Normal appearance. absent: Conjunctival injection, Scleral icterus - ENT Exam ENT Exam: Mucous Membranes Moist - Neck Exam Neck Exam: Normal Inspection - Respiratory Exam Respiratory Exam: Clear to Ausculation Bilateral, NORMAL BREATHING PATTERN. absent: Rales, Rhonchi, Wheezes - Cardiovascular Exam Cardiovascular Exam: REGULAR RHYTHM, RRR, +S1, +S2 - GI/Abdominal Exam GI & Abdominal Exam: Soft, Normal Bowel Sounds. absent: Tenderness - Extremities Exam Extremities Exam: Pedal Edema, Tenderness - Neurological Exam Neurological Exam: Alert, Awake - Psychiatric Exam Psychiatric exam: Flat Affect - Skin Skin Exam: Dry, Intact, Normal Color, Warm Assessment and Plan - Assessment and Plan (Free Text) Plan: Acute respiratory failure Resolved. Doing well on NC, however patient needs encouragement to keep it on, as he desaturates mildly to 92% when he removes NC. 06/12: Now extubated, on Bipap. Responding to question. 06/11: He had 5.5 liters of urine out over yesterday, hopefully with the HD - this will help with extubation 06/09: This morning patient self extubated and had to be reintubated. The sedation medication was changed; will be having more HD today to see if this will help with a successful extubation. 06/08: Remanins intubated, had HD yesterday. Hopefully can be weaned of ventilator soon 06/07: Patient will be getting HD at some point later today to see if this helps with extubation 06/06: I updated family members with reguards to recent events. He may or may not have a PE or this could be aspiration pneumonia for example. He is on IV abx and also he continues to recieve anticoagulation. * Intubated on 06/04/16 for "Code Blue" called on 06/04/16, patient did not lose pulse * Possible aspiration pneumonia vs less pulmonary embolus despite being on anticoagulation for extensive DVT right lower extremity * Unable to perform CT angio PE control secondary to chronic kidney disease Thrombosis of the R iliac and common femoral vein No plans for surgery per Dr. Ortega. Will require life long anticoagulation. To resume therapuetic Elqiuis this evening at 9pm. 06/14-06/16: Re-consulted Surgery. Dr. Ortega, f/u recs. Not safe for intervention so close to critical care. Continue Eliquis, Elevate legs while in bed/seated, Walk often, no standing around, Wear compression stockings every day. 06/06: As mentioned before the patient was intended to have thrombolysis of the lower extremity with the chronic DVT however this was not able to be done immediately due to renal function. As of now on anticogulation. 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 normal venous flow noted in the left common femoral vein * Prior to respiratory arrest on 06/04/16, patient was planned for thrombolysis for this upcoming Tuesday 06/06 * Heme-oncology (Dr. 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 Ortega) on board Sepsis Tigecyclin IV to be completed 06/18. 06/17: Midline placed, TLC removed. 06/14-06/17: Last Tmax 100.4 on 06/12. UC, sputum culture no growth. C. Diff negative 06/12: Just added on Tigecyclin IV (STOP 06/18) 06/11: TMax was 101.3, WBC was a little higher -17 06/10: Currently of off abx. WBC is 15 06/09: Currently abx are being stopped today and monitor how the patient does 06/08: WBC are 16 today, remains on IV abx 06/06: The most recent blood cultures have been negative for 48 hrs, remains on IV abx. WBC 14 today. No elevated temperatures today * Criteria admission: WBC: 43.8, HR>90, Cr> 2.0, platelets 103 and blood culture: Serattia from 05/25/16 * Now: Criteria: WBC: 25.5, Tmax: 102.1 bands>10, platelets normalized, Cr 2.0, chest xray for possible aspiration pneumonia pending new cultures * Urine culture: no growth * 05/27/16 Blood Venous: No growth After 5 days X2 * Infectious disease (Dr. Marsh) on board * Procalcitonin: 16.1 (05/26/16)--> 31.81 (05/27/16)-->ordered for new one * Aztreonam 1gram IV Q 12hours (active since 05/26/16) and Maxipime 1gram IV Q 12hours (active since 05/29/16) * Abd CT(05/28/16): bilateral inguinal lymphadenopathy, right greater than left. cirrhotic contour of liver. fatty atrophy of the pancreas, splenic atrophy w residula spleen, recitulation and edema seen in subcutanous soft tissues, cholelithiasis, consolidative changes at both lung bases which may represen underying infiltrate. * Ab US (05/28/16): enlarged liver with diffuse fatty infiltration, cholelithiasis, limited visualization of the pancreas * Echocardiogram (05/30/16): EF: 55-60% left ventricular ejection fraction is within normal range. left ventricular diastolic function is normal. trace to mild tricupsid regurgitation, PAP 35-45 mmgHG, mild pulmonary hypertension Acute renal failure on Chronic Kidney disease with Nephrotic Syndrome BUN/Cr Elevated, continues to improve (see emr) 06/12 creatine and renal function stable at the moment. His weight was 350lbs on 06/06 and now down to 304lbs 06/11: U/O was a lot yesterday 5.5, also the creatine has decreased to 1.2 06/09: More HD today 06/08: S/P Hemodialysis 06/07: HD to be started some point * Nephrology (Dr. Rhoades) on board-->help appreciated * NS 125 cc/hr (started 06/04/16) * Has dialysis catheter port placed on 06/04/16 by ICU * Monitor potassium levels Electrolyte Imbalance -06/14: Hypokalemia, K3.2 -> monitor and replete - RESOLVED 06/15 Diabetes Mellitus * 06/17: Glucose 135 * Accuchecks Q6 hours * Novolin sliding scale subq 6hours * Diabetic source 20cc/hr via OGT * Prior a1c shows uncontrolled History of COPD/asthma * 06/14: Stop Mucormist * Former smoker, quit 5 years ago * currently intubated secondary to respiratory arrest secondary to likely pnuemonia * Chest xray (06/04/16): in site ett and apparent in situ NGT as aboove in distal aspect of the NGT is poorly delinated, cardiomegaly, pulmonary vascular congestive changes with bilateral lower love alveolar-type infiltrates and bilateral effusions History of Congestive Heart failure * 01/2016 ECHO- LV EF 60-65%, mild pulmonary HTN (see full report) * Echocardiogram (05/30/16): EF: 55-60% left ventricular ejection fraction is within normal range. left ventricular diastolic function is normal. trace to mild tricupsid regurgitation, PAP 35-45 mmgHG, mild pulmonary hypertension * off Crestor secondary to elevated BUN/Cr * off beta asmita secondary to acute respiratory failure; hx of copd se worsening bronchospasm * Aspirin 81mg PO daily History of Hypertension * Off antihypertensives Hx of Nonstemi * January 2016 hospitalization * No cardiac cath * Hx of CHF Prophylactic measures - SCDs contraindicated due to DVT - Eliquis 5mg PO BID for DVT Right LE - Pepcid 20mg PO daily for GI ppx - Tube feedings <Heaven Guerra V - Last Filed: 06/18/16 18:44> Objective - Vital Signs/Intake and Output Vital Signs (last 24 hours): Temp Pulse Resp BP Pulse Ox 97.3 F L 94 H 20 144/88 95 06/18/16 16:04 06/18/16 16:04 06/18/16 16:04 06/18/16 16:04 06/18/16 16:04 Intake and Output: 06/18/16 06/18/16 06:59 18:59 Intake Total 400 650 Balance 400 650 - Medications Medications: Current Medications Acetaminophen (Tylenol 650mg/20.3ml Solution Ud) 650 mg GT Q6 PRN PRN Reason: Fever >100.4 F Last Admin: 06/18/16 12:50 Dose: 650 mg Albuterol/Ipratropium (Duoneb 3 Mg/0.5 Mg (3 Ml) Ud) 3 ml INH RQ6 PRN PRN Reason: Wheezing Last Admin: 06/15/16 13:18 Dose: 3 ml Apixaban (Eliquis) 5 mg PO BID [facility] Last Admin: 06/18/16 17:09 Dose: 5 mg Aspirin (Aspirin Chewable) 81 mg PO DAILY [facility] Last Admin: 06/18/16 09:32 Dose: 81 mg Bacitracin (Bacitracin) 1 ea TOP BID [facility] Last Admin: 06/18/16 17:06 Dose: 1 ea Famotidine (Pepcid) 20 mg PO DAILY [facility] Last Admin: 06/18/16 09:32 Dose: 20 mg Furosemide (Lasix) 40 mg PO DAILY [facility] Last Admin: 06/18/16 09:31 Dose: 40 mg Linezolid (Zyvox 600mg/300ml D5w) 300 mls @ 200 mls/hr IVPB Q12H [facility] Last Admin: 06/18/16 17:05 Dose: 200 mls/hr Insulin Detemir (Levemir) 20 unit SC Q12H [facility] Last Admin: 06/18/16 11:11 Dose: Not Given Insulin Human Regular (Novolin R) 0 unit SC ACHS [facility] PRN Reason: Protocol Last Admin: 06/18/16 17:13 Dose: 2 unit Magnesium Oxide (Mag-Ox) 400 mg PO BID [facility] Last Admin: 06/18/16 17:06 Dose: 400 mg Morphine Sulfate (Morphine) 2 mg IVP Q4H PRN PRN Reason: Pain, moderate (4-7) Potassium Chloride (K-Dur 20 Meq Er Tab) 20 meq PO DAILY [facility] Last Admin: 06/18/16 09:32 Dose: 20 meq Saccharomyces Boulardii (Florastor) 250 mg PO BID [facility] Last Admin: 06/18/16 17:08 Dose: 250 mg - Labs Labs: 06/18/16 07:04 06/18/16 07:04 PT 13.9 SECONDS (9.7-12.2) H 05/27/16 09:38 INR 1.2 05/27/16 09:38 APTT 65 SECONDS (21-34) H 05/29/16 10:50 Assessment and Plan (1) Acute respiratory failure Status: Acute (2) Aspiration pneumonia Status: Acute (3) Sepsis Status: Acute (4) Leg edema, right Status: Acute (5) COPD (chronic obstructive pulmonary disease) Status: Chronic (6) Diabetes Status: Chronic (7) HTN (hypertension) Status: Chronic (8) Renal insufficiency Status: Chronic (9) Deep vein thrombophlebitis of right leg Status: Acute (10) Prophylactic measure Status: Acute Attending/Attestation - Attestation I have personally seen and examined this patient.: Yes I have fully participated in the care of the patient.: Yes I have reviewed all pertinent clinical information, including history, physical exam and plan: Yes Notes (Text): Patient seen, examined and case discussed with day-time resident. Patient seen at bedside. TLC removed. Has new midline over the left upper extremity. Patient's white count improved. F/u Tip culture to rule out line sepsis Per patient request, second opinion sent to Dr. Bello regarding DVT; reports he believes patient has necrosis and cellulitis over right foot and right hand recommending for I&D of abscesses will contribute to sepsis picture and could put in IVC filter if patient wants; communicated with Dr. Ortega who will speak with the patient again tomorrow regarding thrombolysis therapy who has seen patient during admission. Discussed with patient, patient reports he wants his clot dealt with first before abscesses. Communicated with Dr. Bello who is aware. Patient currently on Zyvox per ID given perisistent leukocytosis. Patient to continue Eliquis given DVT+ Per heme-onc, patient will need repeat antiphospholipid antibodies in 12 weeks to confirm if patient has antiphospholipid syndrome Patient encouraged to wear his nasal cannula which he refuses to wear time to. Ordered for cardiology consult: Patient has RBBB noted on EKG if patient proceeds to surgery for thrombolysis; patient determine what surgery he wants.
[2016-06-18 08:28] LABS: CHLORIDE 97 mmol/L (98-107); POTASSIUM 3.9 mmol/L (3.6-5.2); SODIUM 134 mmol/L (132-148)
[2016-06-18 08:30] LABS: ALKALINE PHOSPHATASE 172 U/L (38-126); AST/SGOT 28 U/L (17-59); BILIRUBIN,TOTAL 0.7 mg/dL (0.2-1.3); CARBON DIOXIDE 28 mmol/L (22-30); GFR AFRICAN-AMERICAN > 60
[2016-06-18 08:31] LABS: ALB/GLOB RATIO 0.8 (1.0-2.1); ALT/SGPT 38 U/L (21-72); BLOOD UREA NITROGEN 40 mg/dL (9-20); CALCIUM 7.4 mg/dl (8.6-10.4); GLUCOSE,RANDOM 176 mg/dL (75-110); PHOSPHOROUS 3.4 mg/dL (2.5-4.5); TOTAL PROTEIN 4.5 g/dL (6.3-8.3)
[2016-06-18 08:32] LABS: MAGNESIUM 1.5 mg/dL (1.6-2.3)
[2016-06-18] MEDS: Potassium Chloride 20 mEq ER Tab PO SCH (09:32)
[2016-06-18] MEDS: Acetaminophen 650mg/20.3ml solution UD GT PRN ×2 (09:32→12:50)
[2016-06-18] MEDS: Insulin Detemir 100 units/ml Vial (Levemir) SC SCH ×3 (09:33→23:43)
[2016-06-18] MEDS: Bacitracin 500 Units/gm Oint Foilpak UD TOP SCH ×2 (09:33→17:06)
[2016-06-18] MEDS: Saccharomyces Boulardi 250 mg Cap PO SCH ×2 (09:36→17:08)
[2016-06-18] MEDS: Magnesium Oxide 400 mg Tab UD PO SCH ×2 (10:25→17:06)
--- NOTE | 2016-06-18 11:00 | CP.PCM.PN ---
Subjective - Date & Time of Evaluation Date of Evaluation: 06/18/16 Time of Evaluation: 09:45 - Subjective Subjective: says he is tired chronic pain in right leg no chest pain not sob no nausea no vomiting no rash no focal weakness no change in u/o Objective - Vital Signs/Intake and Output Vital Signs (last 24 hours): Temp Pulse Resp BP Pulse Ox 97.6 F 97 H 20 126/83 95 06/18/16 07:50 06/18/16 07:50 06/18/16 07:50 06/18/16 09:31 06/18/16 07:50 Intake and Output: 06/18/16 06/18/16 06:59 18:59 Intake Total 400 Balance 400 - Medications Medications: Current Medications Acetaminophen (Tylenol 650mg/20.3ml Solution Ud) 650 mg GT Q6 PRN PRN Reason: Fever >100.4 F Last Admin: 06/18/16 09:32 Dose: 650 mg Albuterol/Ipratropium (Duoneb 3 Mg/0.5 Mg (3 Ml) Ud) 3 ml INH RQ6 PRN PRN Reason: Wheezing Last Admin: 06/15/16 13:18 Dose: 3 ml Apixaban (Eliquis) 5 mg PO BID [facility] Last Admin: 06/18/16 09:31 Dose: 5 mg Aspirin (Aspirin Chewable) 81 mg PO DAILY [facility] Last Admin: 06/18/16 09:32 Dose: 81 mg Bacitracin (Bacitracin) 1 ea TOP BID [facility] Last Admin: 06/18/16 09:33 Dose: 1 ea Famotidine (Pepcid) 20 mg PO DAILY [facility] Last Admin: 06/18/16 09:32 Dose: 20 mg Furosemide (Lasix) 40 mg PO DAILY [facility] Last Admin: 06/18/16 09:31 Dose: 40 mg Linezolid (Zyvox 600mg/300ml D5w) 300 mls @ 200 mls/hr IVPB Q12H [facility] Last Admin: 06/18/16 05:21 Dose: 200 mls/hr Insulin Detemir (Levemir) 15 unit SC Q12H [facility] Last Admin: 06/18/16 09:33 Dose: 15 unit Insulin Human Regular (Novolin R) 0 unit SC ACHS [facility] PRN Reason: Protocol Last Admin: 06/18/16 07:35 Dose: 2 unit Magnesium Oxide (Mag-Ox) 400 mg PO BID [facility] Last Admin: 06/18/16 10:25 Dose: 400 mg Morphine Sulfate (Morphine) 2 mg IVP Q4H PRN PRN Reason: Pain, moderate (4-7) Potassium Chloride (K-Dur 20 Meq Er Tab) 20 meq PO DAILY [facility] Last Admin: 06/18/16 09:32 Dose: 20 meq Saccharomyces Boulardii (Florastor) 250 mg PO BID [facility] Last Admin: 06/18/16 09:36 Dose: 250 mg - Labs Labs: 06/18/16 07:04 06/18/16 07:04 PT 13.9 SECONDS (9.7-12.2) H 05/27/16 09:38 INR 1.2 05/27/16 09:38 APTT 65 SECONDS (21-34) H 05/29/16 10:50 - Constitutional Appears: Non-toxic, Confused - Head Exam Head Exam: ATRAUMATIC - Eye Exam Eye Exam: EOMI - ENT Exam ENT Exam: Mucous Membranes Moist - Neck Exam Neck Exam: Full ROM. absent: Lymphadenopathy - Respiratory Exam Respiratory Exam: Clear to Ausculation Bilateral. absent: Accessory Muscle Use - Cardiovascular Exam Cardiovascular Exam: REGULAR RHYTHM. absent: Rubs - GI/Abdominal Exam GI & Abdominal Exam: Soft, Normal Bowel Sounds. absent: Tenderness - Extremities Exam Additional comments: chronic right leg swelling Assessment and Plan - Assessment and Plan (Free Text) Assessment: resolved jeff replace magnesium monitor electrolytes on lasix for chronic chf on a/c for extensive, recurrent dvt
--- NOTE | 2016-06-18 11:11 | CP.PCM.PN ---
Subjective - Date & Time of Evaluation Date of Evaluation: 06/18/16 Time of Evaluation: 11:00 - Subjective Subjective: dictated Objective - Vital Signs/Intake and Output Vital Signs (last 24 hours): Temp Pulse Resp BP Pulse Ox 97.6 F 97 H 20 126/83 95 06/18/16 07:50 06/18/16 07:50 06/18/16 07:50 06/18/16 09:31 06/18/16 07:50 Intake and Output: 06/18/16 06/18/16 06:59 18:59 Intake Total 400 Balance 400 - Medications Medications: Current Medications Acetaminophen (Tylenol 650mg/20.3ml Solution Ud) 650 mg GT Q6 PRN PRN Reason: Fever >100.4 F Last Admin: 06/18/16 09:32 Dose: 650 mg Albuterol/Ipratropium (Duoneb 3 Mg/0.5 Mg (3 Ml) Ud) 3 ml INH RQ6 PRN PRN Reason: Wheezing Last Admin: 06/15/16 13:18 Dose: 3 ml Apixaban (Eliquis) 5 mg PO BID [facility] Last Admin: 06/18/16 09:31 Dose: 5 mg Aspirin (Aspirin Chewable) 81 mg PO DAILY [facility] Last Admin: 06/18/16 09:32 Dose: 81 mg Bacitracin (Bacitracin) 1 ea TOP BID [facility] Last Admin: 06/18/16 09:33 Dose: 1 ea Famotidine (Pepcid) 20 mg PO DAILY [facility] Last Admin: 06/18/16 09:32 Dose: 20 mg Furosemide (Lasix) 40 mg PO DAILY [facility] Last Admin: 06/18/16 09:31 Dose: 40 mg Linezolid (Zyvox 600mg/300ml D5w) 300 mls @ 200 mls/hr IVPB Q12H [facility] Last Admin: 06/18/16 05:21 Dose: 200 mls/hr Insulin Detemir (Levemir) 20 unit SC Q12H [facility] Last Admin: 06/18/16 11:11 Dose: Not Given Insulin Human Regular (Novolin R) 0 unit SC ACHS [facility] PRN Reason: Protocol Last Admin: 06/18/16 07:35 Dose: 2 unit Magnesium Oxide (Mag-Ox) 400 mg PO BID [facility] Last Admin: 06/18/16 10:25 Dose: 400 mg Morphine Sulfate (Morphine) 2 mg IVP Q4H PRN PRN Reason: Pain, moderate (4-7) Potassium Chloride (K-Dur 20 Meq Er Tab) 20 meq PO DAILY [facility] Last Admin: 06/18/16 09:32 Dose: 20 meq Saccharomyces Boulardii (Florastor) 250 mg PO BID [facility] Last Admin: 06/18/16 09:36 Dose: 250 mg - Labs Labs: 06/18/16 07:04 06/18/16 07:04 PT 13.9 SECONDS (9.7-12.2) H 05/27/16 09:38 INR 1.2 05/27/16 09:38 APTT 65 SECONDS (21-34) H 05/29/16 10:50
--- NOTE | 2016-06-18 11:40 | PN ---
DATE: 06/18/2016 INFECTIOUS DISEASE FOLLOWUP The patient is afebrile. He still feels very weak. He says his both legs are swollen and at this ti me, right leg especially. He has chronic pain. Denies any shortness of breath. No pain. He is on oxygen. He also has a dressing on his hand, has developed a blister also on the right foot at this t david. He is on Zyvox for VRE, as his LFTs increased, and discontinued the Tygacil. It could also hav e been the pain medications. PHYSICAL EXAMINATION: VITAL SIGNS: Temperature right now is 97.6, pulse 97, blood pressure 126/83. Respirations are 20. HEAD: Atraumatic, normocephalic. GENERAL: He is alert, oriented. NECK: Supple. LUNGS: Had occasional rhonchi, otherwise clear. HEART: S1, S2 regular. ABDOMEN: Soft, flabby. EXTREMITIES: Right leg - the one with the clot, has edema extending from the thigh to the foot, and has a dressing on the foot area, as well dressing on the right hand. Left leg also has edema at this time. He is on Zyvox at this time with the left midline, which was placed yesterday, and we will keep him o n Zyvox, and we will reassess these wounds on Monday to see, and urine culture - the catheter tip, wh ich was removed yesterday, has no growth at this time. Urine, which was from 06/11, VRE is negative o n 06/14, but we will continue Zyvox until Monday to reassess these wounds on the wrist, as well as bishnu t, and his LFTs are a little better from yesterday, but albumin is 2.0. We will follow. Joshua Marsh MD cc: [id number] TT: 06/18/2016 11:40:12 Confirmation # [id number] Dictation # [id number] rao
--- NOTE | 2016-06-18 19:56 | CON ---
DATE: 06/18/2016 REASON FOR CONSULTATION: DVT with cellulitis of the leg, foot, and right hand. HISTORY OF PRESENT ILLNESS: This is a 45-year-old male admitted 1 month ago with a DVT and pain in h is legs. He has subsequently had a stormy hospital course, including sepsis, being intubated in the ICU, episodes of dialysis from which he is slowly recovering from. Today he is noted to have swelling in his right leg and cellulitis of his right foot, and also cellul itis of his right hand, and swelling from an infiltrated IV in the ICU. He is seen in consultation. MEDICATIONS: Include Eliquis, cardiac meds, and Protonix. PAST MEDICAL HISTORY: Significant for CHF. PAST SURGICAL HISTORY: Unobtainable. FAMILY HISTORY/REVIEW OF SYSTEMS: Not contributory. On physical exam, he is an obese middle-aged male in no acute distress. Pertinent physical findings includes a cellulitic right foot with extensive edema of the dorsum, and a necrotic area overlying this cellulitic area. It is fluctuant to palpation. Examination of the hand reveals similar findings, with a cellulitis of the dorsum, surrounded by necr otic area with fluctuance. Review of his studies included his venous Doppler, which revealed a partial chronic DVT of the right iliac and common femoral vessels. IMPRESSION: He has cellulitis with abscess formation and necrosis, both his foot and his right foot and right hand. I feel it is best the patient go to the operating room for a minimal debridement of these areas, which will most likely release the underlying pus, and clean up the wounds dramatically. Also due to his DVT, and the fact he is taking Eliquis with so many medical problems, I think a dorian a cava filter also would be of benefit to the patient. This was discussed with the patient and he is agreeable. Therefore, on Monday he will be taken for debridement of his wounds, and release of his sepsis and pus, followed by a staged placement of a vena cava filter. This was discussed with the at tending physician, and she is in agreement. Once again, thank you for this referral. If you have any further questions, feel free to contact me. Sincerely, Gopi Rojas MD cc: [id number] TT: 06/18/2016 19:55:01 Confirmation # [id number] Dictation # [id number] jn
--- NOTE | 2016-06-18 21:01 | CP.PCM.PN ---
Subjective - Date & Time of Evaluation Date of Evaluation: 06/18/16 Time of Evaluation: 17:20 - Subjective Subjective: Has pain in left leg Objective - Vital Signs/Intake and Output Vital Signs (last 24 hours): Temp Pulse Resp BP Pulse Ox 97.3 F L 94 H 20 144/88 95 06/18/16 16:04 06/18/16 16:04 06/18/16 16:04 06/18/16 16:04 06/18/16 16:04 Intake and Output: 06/18/16 06/19/16 18:59 06:59 Intake Total 650 Balance 650 - Medications Medications: Current Medications Acetaminophen (Tylenol 650mg/20.3ml Solution Ud) 650 mg GT Q6 PRN PRN Reason: Fever >100.4 F Last Admin: 06/18/16 12:50 Dose: 650 mg Albuterol/Ipratropium (Duoneb 3 Mg/0.5 Mg (3 Ml) Ud) 3 ml INH RQ6 PRN PRN Reason: Wheezing Last Admin: 06/15/16 13:18 Dose: 3 ml Apixaban (Eliquis) 5 mg PO BID [facility] Last Admin: 06/18/16 17:09 Dose: 5 mg Aspirin (Aspirin Chewable) 81 mg PO DAILY [facility] Last Admin: 06/18/16 09:32 Dose: 81 mg Bacitracin (Bacitracin) 1 ea TOP BID [facility] Last Admin: 06/18/16 17:06 Dose: 1 ea Famotidine (Pepcid) 20 mg PO DAILY [facility] Last Admin: 06/18/16 09:32 Dose: 20 mg Furosemide (Lasix) 40 mg PO DAILY [facility] Last Admin: 06/18/16 09:31 Dose: 40 mg Linezolid (Zyvox 600mg/300ml D5w) 300 mls @ 200 mls/hr IVPB Q12H [facility] Last Admin: 06/18/16 17:05 Dose: 200 mls/hr Insulin Detemir (Levemir) 20 unit SC Q12H [facility] Last Admin: 06/18/16 11:11 Dose: Not Given Insulin Human Regular (Novolin R) 0 unit SC ACHS [facility] PRN Reason: Protocol Last Admin: 06/18/16 17:13 Dose: 2 unit Magnesium Oxide (Mag-Ox) 400 mg PO BID [facility] Last Admin: 06/18/16 17:06 Dose: 400 mg Morphine Sulfate (Morphine) 2 mg IVP Q4H PRN PRN Reason: Pain, moderate (4-7) Potassium Chloride (K-Dur 20 Meq Er Tab) 20 meq PO DAILY [facility] Last Admin: 06/18/16 09:32 Dose: 20 meq Saccharomyces Boulardii (Florastor) 250 mg PO BID [facility] Last Admin: 06/18/16 17:08 Dose: 250 mg - Labs Labs: 06/18/16 07:04 06/18/16 07:04 PT 13.9 SECONDS (9.7-12.2) H 05/27/16 09:38 INR 1.2 05/27/16 09:38 APTT 65 SECONDS (21-34) H 05/29/16 10:50 - Head Exam Head Exam: ATRAUMATIC - Eye Exam Eye Exam: Normal appearance - ENT Exam ENT Exam: Mucous Membranes Dry - Respiratory Exam Respiratory Exam: NORMAL BREATHING PATTERN - Cardiovascular Exam Cardiovascular Exam: +S1, +S2 - GI/Abdominal Exam GI & Abdominal Exam: Normal Bowel Sounds - Extremities Exam Extremities Exam: Pedal Edema Assessment and Plan (1) Deep venous thrombosis of lower extremity Assessment & Plan: 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
--- NOTE | 2016-06-18 21:21 | CP.PCM.CON ---
<George Curran H - Last Filed: 06/19/16 12:54> Meds Allergies/Adverse Reactions: Allergies Allergy/AdvReac Type Severity Reaction Status Date / Time EGG Allergy Intermediate RASH Verified 05/25/16 14:29 - Medications Medications: Current Medications Albuterol/Ipratropium (Duoneb 3 Mg/0.5 Mg (3 Ml) Ud) 3 ml INH RQ6 PRN PRN Reason: Wheezing Last Admin: 06/15/16 13:18 Dose: 3 ml Apixaban (Eliquis) 5 mg PO BID [facility] Last Admin: 06/19/16 09:34 Dose: 5 mg Aspirin (Aspirin Chewable) 81 mg PO DAILY [facility] Last Admin: 06/19/16 09:34 Dose: 81 mg Bacitracin (Bacitracin) 1 ea TOP BID [facility] Last Admin: 06/19/16 09:34 Dose: 1 ea Famotidine (Pepcid) 20 mg PO DAILY [facility] Last Admin: 06/19/16 09:35 Dose: 20 mg Furosemide (Lasix) 40 mg PO DAILY [facility] Last Admin: 06/19/16 09:34 Dose: 40 mg Linezolid (Zyvox 600mg/300ml D5w) 300 mls @ 200 mls/hr IVPB Q12H [facility] Last Admin: 06/19/16 05:25 Dose: 200 mls/hr Insulin Detemir (Levemir) 20 unit SC Q12H [facility] Last Admin: 06/19/16 11:00 Dose: 20 unit Insulin Human Regular (Novolin R) 0 unit SC ACHS [facility] PRN Reason: Protocol Last Admin: 06/19/16 12:31 Dose: 2 unit Magnesium Oxide (Mag-Ox) 400 mg PO BID [facility] Last Admin: 06/19/16 09:34 Dose: 400 mg Oxycodone/Acetaminophen (Percocet 5/325 Mg Tab) 2 tab PO Q4H PRN PRN Reason: Pain, severe (8-10) Stop: 06/22/16 09:10 Last Admin: 06/19/16 09:33 Dose: 2 tab Potassium Chloride (K-Dur 20 Meq Er Tab) 20 meq PO DAILY [facility] Last Admin: 06/19/16 09:34 Dose: 20 meq Saccharomyces Boulardii (Florastor) 250 mg PO BID [facility] Last Admin: 06/19/16 09:39 Dose: 250 mg Results - Vital Signs Recent Vital Signs: Last Vital Signs Temp 97.6 F 06/19/16 08:07 Pulse 91 H 06/19/16 08:07 Resp 20 06/19/16 08:07 BP 138/79 06/19/16 09:34 Pulse Ox 95 06/19/16 08:07 - Labs Result Diagrams: 06/19/16 07:15 06/19/16 09:51 Labs: Laboratory Results - last 24 hr 06/18/16 06/18/16 06/19/16 17:05 20:57 06:19 WBC RBC Hgb Hct MCV MCH MCHC RDW Plt Count MPV Neut % (Auto) Lymph % (Auto) [place] % (Auto) Eos % (Auto) Baso % (Auto) Neut # Lymph # [place] # Eos # Baso # PT INR APTT Sodium Potassium Chloride Carbon Dioxide Anion Gap BUN Creatinine Est GFR ( Amer) Est GFR (Non-Af Amer) POC Glucose (mg/dL) 168 H 197 H 157 H Random Glucose Calcium Total Bilirubin AST ALT Alkaline Phosphatase Total Protein Albumin Globulin Albumin/Globulin Ratio 06/19/16 06/19/16 06/19/16 07:15 09:51 11:21 WBC 18.7 H RBC 3.88 L Hgb 11.0 L Hct 34.5 L MCV 89.0 MCH 28.4 MCHC 32.0 L RDW 17.1 H Plt Count 152 MPV 11.3 Neut % (Auto) 61.3 Lymph % (Auto) 14.7 L [place] % (Auto) 15.9 H Eos % (Auto) 6.8 H Baso % (Auto) 1.3 Neut # 11.5 H Lymph # 2.8 [place] # 3.0 H Eos # 1.3 H Baso # 0.2 PT 14.2 H INR 1.3 APTT 63 H Sodium 132 Potassium 3.8 Chloride 96 L Carbon Dioxide 29 Anion Gap 11 BUN 28 H Creatinine 1.1 Est GFR ( Amer) > 60 Est GFR (Non-Af Amer) > 60 POC Glucose (mg/dL) 190 H Random Glucose 218 H Calcium 7.3 L Total Bilirubin 0.6 AST 30 ALT 42 Alkaline Phosphatase 176 H Total Protein 4.8 L Albumin 2.1 L Globulin 2.7 Albumin/Globulin Ratio 0.8 L <Mario Arnold - Last Filed: 06/19/16 14:10> History of Present Illness - History of Present Illness History of Present Illness: 45 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 on anticoagulation. Now scheduled for ivcf. pt w/o complaints of cp, sob, palp, lh, dizzyness, syncope. Denies hx of cad, PA, chf, or angina. echo reveals normal EF and normal diastolic function (making underlying cad unlikely). Ekg reveals RBBB, which is present on ekgs going back several years. Pt does have phtn, noted on echo. This is likely the etiology of his rbbb. Review of Systems - Constitutional Constitutional: absent: As Per HPI, Anorexia, Chills, Daytime Sleepiness, Excessive Sweating, Fatigue, Fever, Frequent Falls, Headache, Increased Appetite , Lethargy, Malaise, Night Sweats, Snoring, Sleep Apnea, Weight Gain, Weight Loss, Weakness, Other - EENT Eyes: absent: As Per HPI, Blind Spots, Blurred Vision, Change in Vision, Decreased Night Vision, Diplopia, Discharge, Dry Eye, Exophthalmos, Floaters, Irritation, Itchy Eyes, Loss of Peripheral Vision, Pain, Photophobia, Requires Corrective Lenses, Sees Flashes, Spots in Vision, Tunnel Vision, Other Visual Disturbances, Loss of Vision, Other Ears: absent: As Per HPI, Decreased Hearing, Ear Discharge, Ear Pain, Tinnitus, Abnormal Hearing, Disequilibrium, Dizziness, Other Nose/Mouth/Throat: absent: As Per HPI, Epistaxis, Nasal Congestion, Nasal Discharge, Nasal Obstruction, Nasal Trauma, Nose Pain, Post Nasal Drip, Sinus Pain, Sinus Pressure, Bleeding Gums, Change in Voice, Dental Pain, Dry Mouth, Dysphagia, Halitosis, Hoarsness, Lip Swelling, Mouth Lesions, Mouth Pain, Odynophagia, Sore Throat, Throat Swelling, Tongue Swelling, Facial Pain, Neck Pain, Neck Mass, Other - Cardiovascular Cardiovascular: absent: As Per HPI, Acrocyanosis, Chest Pain, Chest Pain at Rest , Chest Pain with Activity, Claudication, Diaphoresis, Dyspnea, Dyspnea on Exertion, Edema, Irregular Heart Rhythm, Pain Radiating to Arm/Neck/Jaw, Leg Edema, Leg Ulcers, Lightheadedness, Orthopnea, Palpitations, Paroxysmal Nocturnal Dyspnea, Pedal Edema, Radiating Pain, Rapid Heart Rate, Slow Heart Rate, Syncope, Other - Respiratory Respiratory: absent: As Per HPI, Cough, Dyspnea, Hemoptysis, Dyspnea on Exertion , Wheezing, Snoring, Stridor, Pain on Inspiration, Chest Congestion, Excessive Mucous Production, Change in Mucous Color, Pain with Coughing, Other - Gastrointestinal Gastrointestinal: absent: As Per HPI, Abdominal Pain, Belching, Bloating, Change in Bowel Habits, Change in Stool Character, Coffee Ground Emesis, Constipation, Cramping, Diarrhea, Dyspepsia, Dysphagia, Early Satiety, Excessive Flatus, Fecal Incontinence, Heartburn, Hematemesis, Hematochezia, Loose Stools, Melena, Nausea, Odynophagia, Temesmus, Vomiting, Other - Musculoskeletal Musculoskeletal: absent: As Per HPI, Abnormal Gait, Arthralgias, Atrophy, Back Pain, Deformity, Joint Swelling, Limited Range of Motion, Loss of Height, Muscle Cramps, Muscle Weakness, Myalgias, Neck Pain, Numbness, Radiating Pain into Limb, Stiffness, Tingling, Other - Integumentary Integumentary: absent: As Per HPI, Acne, Alopecia, Bleeding Lesions, Change in Hair, Change in Nails, Change in Pigmentation, Changing Lesions, Dry Skin, Erythema, Furuncle, Hirsutism, Lesions, New Lesions, Non-Healing Lesions, Photosensitivity, Pruritus, Rash, Skin Pain, Skin Ulcer, Sores, Striae, Swelling , Unusual Bruising, Wounds, Jaundice, Other - Neurological Neurological: absent: As Per HPI, Abnormal Gait, Abnormal Hearing, Abnormal Movements, Abnormal Speech, Behavioral Changes, Burning Sensations, Confusion, Convulsions, Disequilibrium, Dizziness, Numbness, Focal Weakness, Frequent Falls , Headaches, Lack of Coordination, Loss of Vision, Memory Loss, Paresthesias, Radicular Pain, Restless Legs, Sensory Deficit, Syncope, Tingling, Tremor, Vertigo, Weakness, Other Visual Disturbances, Other - Psychiatric Psychiatric: absent: As Per HPI, Abnormal Sleep Pattern, Anhedonia, Anxiety, Auditory Hallucinations, Behavioral Changes, Change in Appetite, Change in Libido, Confusion, Depression, Difficulty Concentrating, Hallucinations, Homicidal Ideation, Hopelessness, Irritability, Memory Loss, Mood Swings, Panic Attacks, Paranoia, Suicidal Ideation, Visual Hallucinations, Tactile Hallucinations, Other - Endocrine Endocrine: absent: As Per HPI, Change in Body Appearance, Change in Libido, Cold Intolorance, Deepening of Voice, Excessive Sweating, Fatigue, Flushing, Heat Intolorance, Increase in Ring/Shoe/Hat Size, Palpitations, Polydipsia, Polyphagia, Polyuria, Other - Hematologic/Lymphatic Hematologic: As Per HPI Past Patient History - Infectious Disease Hx of Infectious Diseases: None - Past Medical History & Family History Past Medical History?: Yes - Past Social History Smoking Status: Former Smoker - CARDIAC Hx Hypertension: Yes - PULMONARY Hx Chronic Obstructive Pulmonary Disease (COPD): Yes - NEUROLOGICAL Hx Neurological Disorder: Yes Other/Comment: c/o headache on admission, spinal tap attempted to remove spinal fluid. becuase of immobility developed DVT. at the time. right leg. - HEENT Hx HEENT Problems: No - RENAL Hx Chronic Kidney Disease: No - ENDOCRINE/METABOLIC Hx Diabetes Mellitus Type 1: Yes - HEMATOLOGICAL/ONCOLOGICAL Hx Blood Disorders: No - INTEGUMENTARY Hx Dermatological Problems: Yes Hx Cellulitis: Yes - MUSCULOSKELETAL/RHEUMATOLOGICAL Hx Musculoskeletal Disorders: No Hx Falls: No - GASTROINTESTINAL Hx Gastrointestinal Disorders: No - GENITOURINARY/GYNECOLOGICAL Hx Genitourinary Disorders: No - PSYCHIATRIC Hx Substance Use: No - SURGICAL HISTORY Hx Surgeries: Yes Hx Splenectomy: Yes (3 years ago) Hx Vascular Access Device: Yes (HX INGUINAL PERMA CATH) - ANESTHESIA Hx Anesthesia: Yes Hx Anesthesia Reactions: No Hx Malignant Hyperthermia: No Has any member of the family had a problem w/ anesthesia?: No Meds - Medications Medications: Current Medications Acetaminophen (Tylenol 650mg/20.3ml Solution Ud) 650 mg GT Q6 PRN PRN Reason: Fever >100.4 F Last Admin: 06/18/16 12:50 Dose: 650 mg Albuterol/Ipratropium (Duoneb 3 Mg/0.5 Mg (3 Ml) Ud) 3 ml INH RQ6 PRN PRN Reason: Wheezing Last Admin: 06/15/16 13:18 Dose: 3 ml Apixaban (Eliquis) 5 mg PO BID [facility] Last Admin: 06/18/16 17:09 Dose: 5 mg Aspirin (Aspirin Chewable) 81 mg PO DAILY [facility] Last Admin: 06/18/16 09:32 Dose: 81 mg Bacitracin (Bacitracin) 1 ea TOP BID [facility] Last Admin: 06/18/16 17:06 Dose: 1 ea Famotidine (Pepcid) 20 mg PO DAILY [facility] Last Admin: 06/18/16 09:32 Dose: 20 mg Furosemide (Lasix) 40 mg PO DAILY [facility] Last Admin: 06/18/16 09:31 Dose: 40 mg Linezolid (Zyvox 600mg/300ml D5w) 300 mls @ 200 mls/hr IVPB Q12H [facility] Last Admin: 06/18/16 17:05 Dose: 200 mls/hr Insulin Detemir (Levemir) 20 unit SC Q12H [facility] Last Admin: 06/18/16 11:11 Dose: Not Given Insulin Human Regular (Novolin R) 0 unit SC ACHS [facility] PRN Reason: Protocol Last Admin: 06/18/16 17:13 Dose: 2 unit Magnesium Oxide (Mag-Ox) 400 mg PO BID [facility] Last Admin: 06/18/16 17:06 Dose: 400 mg Morphine Sulfate (Morphine) 2 mg IVP Q4H PRN PRN Reason: Pain, moderate (4-7) Potassium Chloride (K-Dur 20 Meq Er Tab) 20 meq PO DAILY [facility] Last Admin: 06/18/16 09:32 Dose: 20 meq Saccharomyces Boulardii (Florastor) 250 mg PO BID [facility] Last Admin: 06/18/16 17:08 Dose: 250 mg Physical Exam - Constitutional Appears: Well - Head Exam Head Exam: ATRAUMATIC, NORMAL INSPECTION, NORMOCEPHALIC - Eye Exam Eye Exam: EOMI, Normal appearance, PERRL Pupil Exam: NORMAL ACCOMODATION, PERRL - ENT Exam ENT Exam: Mucous Membranes Moist, Normal Exam - Neck Exam Neck exam: Positive for: Normal Inspection - Respiratory Exam Respiratory Exam: Clear to Auscultation Bilateral, NORMAL BREATHING PATTERN - Cardiovascular Exam Cardiovascular Exam: REGULAR RHYTHM, Systolic Murmur - GI/Abdominal Exam GI & Abdominal Exam: Normal Bowel Sounds, Soft. absent: Tenderness - Rectal Exam Rectal Exam: Deferred - Extremities Exam Extremities exam: Positive for: pedal edema Additional comments: b/l le edema 2+ - Back Exam Back exam: NORMAL INSPECTION - Neurological Exam Neurological exam: Alert, CN II-XII Intact, Normal Gait, Oriented x3, Reflexes Normal - Psychiatric Exam Psychiatric exam: Normal Affect, Normal Mood - Skin Skin Exam: Dry, Intact, Normal Color, Warm Results - Vital Signs Recent Vital Signs: Last Vital Signs Temp 97.3 F L 06/18/16 16:04 Pulse 94 H 06/18/16 16:04 Resp 20 06/18/16 16:04 BP 144/88 06/18/16 16:04 Pulse Ox 95 06/18/16 16:04 - Labs Result Diagrams: 06/19/16 07:15 06/19/16 09:51 Labs: Laboratory Results - last 24 hr 06/17/16 06/18/16 06/18/16 21:27 06:37 07:04 WBC 16.8 H RBC 4.09 L Hgb 11.6 L Hct 35.7 MCV 87.2 MCH 28.3 MCHC 32.5 L RDW 16.9 H Plt Count 215 MPV 10.9 Neut % (Auto) 59.8 Lymph % (Auto) 15.2 L [place] % (Auto) 16.0 H Eos % (Auto) 7.6 H Baso % (Auto) 1.4 Neut # 10.0 H Lymph # 2.6 [place] # 2.7 H Eos # 1.3 H Baso # 0.2 Sodium 134 Potassium 3.9 Chloride 97 L Carbon Dioxide 28 Anion Gap 12 BUN 40 H Creatinine 1.1 Est GFR ( Amer) > 60 Est GFR (Non-Af Amer) > 60 POC Glucose (mg/dL) 255 H 192 H Random Glucose 176 H Calcium 7.4 L Phosphorus 3.4 Magnesium 1.5 L Total Bilirubin 0.7 AST 28 ALT 38 Alkaline Phosphatase 172 H Total Creatine Kinase CK-MB (Mass) Troponin I, Quant Total Protein 4.5 L Albumin 2.0 L Globulin 2.5 Albumin/Globulin Ratio 0.8 L 06/18/16 06/18/16 06/18/16 11:22 11:31 17:05 WBC RBC Hgb Hct MCV MCH MCHC RDW Plt Count MPV Neut % (Auto) Lymph % (Auto) [place] % (Auto) Eos % (Auto) Baso % (Auto) Neut # Lymph # [place] # Eos # Baso # Sodium Potassium Chloride Carbon Dioxide Anion Gap BUN Creatinine Est GFR ( Amer) Est GFR (Non-Af Amer) POC Glucose (mg/dL) 199 H 168 H Random Glucose Calcium Phosphorus Magnesium Total Bilirubin AST ALT Alkaline Phosphatase Total Creatine Kinase 40 L CK-MB (Mass) 2.73 Troponin I, Quant 0.0150 Total Protein Albumin Globulin Albumin/Globulin Ratio 06/18/16 20:57 WBC RBC Hgb Hct MCV MCH MCHC RDW Plt Count MPV Neut % (Auto) Lymph % (Auto) [place] % (Auto) Eos % (Auto) Baso % (Auto) Neut # Lymph # [place] # Eos # Baso # Sodium Potassium Chloride Carbon Dioxide Anion Gap BUN Creatinine Est GFR ( Amer) Est GFR (Non-Af Amer) POC Glucose (mg/dL) 197 H Random Glucose Calcium Phosphorus Magnesium Total Bilirubin AST ALT Alkaline Phosphatase Total Creatine Kinase CK-MB (Mass) Troponin I, Quant Total Protein Albumin Globulin Albumin/Globulin Ratio - EKG Data EKG Interpreted by: Myself EKG shows normal: Sinus rhythm Rate: Normal - EKG Data EKG comments: RBBB - Impressions Impression: Pt is low risk for IVCF placement. he may proceed to vascular lab. tele monitor thereafter echo and ekgs reviewed monitor lytes 45 min total care.
[2016-06-19] MEDS: Linezolid 600 mg in D5W 300 ml 300 ML IVPB SCH ×2 (05:25→18:02)
[2016-06-19 07:41] LABS: BASO # 0.2 K/uL (0.0-0.2); BASO % 1.3 % (0.0-2.0); EOS # 1.3 K/uL (0.0-0.7); EOS % 6.8 % (0.0-4.0); HEMATOCRIT 34.5 % (35.0-51.0); LYMPH # 2.8 K/uL (1.0-4.3); LYMPH % 14.7 % (20.0-40.0); MEAN CORPUSCULAR HEMOGLOBIN 28.4 pg (27.0-31.0); MEAN PLATELET VOLUME 11.3 fL (7.2-11.7); MONO % 15.9 % (0.0-10.0); NRBC % 0.2 % (0.0-2.0); RED CELL DISTRIBUTION WIDTH 17.1 % (11.5-14.5); WHITE BLOOD COUNT 18.7 K/uL (4.8-10.8)
--- NOTE | 2016-06-19 08:42 | CP.PCM.PN ---
<CurranGeorge H - Last Filed: 06/19/16 20:27> Subjective - Date & Time of Evaluation Date of Evaluation: 06/19/16 Time of Evaluation: 09:30 - Subjective Subjective: Patient seen and examined with primary medical attending Dr. Guerra. Patient is complaining of drowsiness and and reports he did not sleep very well. He also says he thinks Percocet is more effective pain medication than the IV morphine he is getting. He also discussed his desire to deal with the blood clot in his leg which has caused him to be hospitalized multiple times as well. Objective - Vital Signs/Intake and Output Vital Signs (last 24 hours): Temp Pulse Resp BP Pulse Ox 97.6 F 91 H 20 138/79 95 06/19/16 08:07 06/19/16 08:07 06/19/16 08:07 06/19/16 08:07 06/19/16 08:07 - Medications Medications: Current Medications Acetaminophen (Tylenol 650mg/20.3ml Solution Ud) 650 mg GT Q6 PRN PRN Reason: Fever >100.4 F Last Admin: 06/18/16 12:50 Dose: 650 mg Albuterol/Ipratropium (Duoneb 3 Mg/0.5 Mg (3 Ml) Ud) 3 ml INH RQ6 PRN PRN Reason: Wheezing Last Admin: 06/15/16 13:18 Dose: 3 ml Apixaban (Eliquis) 5 mg PO BID [facility] Last Admin: 06/18/16 17:09 Dose: 5 mg Aspirin (Aspirin Chewable) 81 mg PO DAILY [facility] Last Admin: 06/18/16 09:32 Dose: 81 mg Bacitracin (Bacitracin) 1 ea TOP BID [facility] Last Admin: 06/18/16 17:06 Dose: 1 ea Famotidine (Pepcid) 20 mg PO DAILY [facility] Last Admin: 06/18/16 09:32 Dose: 20 mg Furosemide (Lasix) 40 mg PO DAILY [facility] Last Admin: 06/18/16 09:31 Dose: 40 mg Linezolid (Zyvox 600mg/300ml D5w) 300 mls @ 200 mls/hr IVPB Q12H [facility] Last Admin: 06/19/16 05:25 Dose: 200 mls/hr Insulin Detemir (Levemir) 20 unit SC Q12H [facility] Last Admin: 06/18/16 23:43 Dose: 20 unit Insulin Human Regular (Novolin R) 0 unit SC ACHS ANABELLA PRN Reason: Protocol Last Admin: 06/18/16 17:13 Dose: 2 unit Magnesium Oxide (Mag-Ox) 400 mg PO BID [facility] Last Admin: 06/18/16 17:06 Dose: 400 mg Morphine Sulfate (Morphine) 2 mg IVP Q4H PRN PRN Reason: Pain, moderate (4-7) Last Admin: 06/19/16 02:18 Dose: 2 mg Potassium Chloride (K-Dur 20 Meq Er Tab) 20 meq PO DAILY [facility] Last Admin: 06/18/16 09:32 Dose: 20 meq Saccharomyces Boulardii (Florastor) 250 mg PO BID [facility] Last Admin: 06/18/16 17:08 Dose: 250 mg - Labs Labs: 06/19/16 07:15 06/18/16 07:04 PT 13.9 SECONDS (9.7-12.2) H 05/27/16 09:38 INR 1.2 05/27/16 09:38 APTT 65 SECONDS (21-34) H 05/29/16 10:50 - Constitutional Appears: Non-toxic, No Acute Distress - Head Exam Head Exam: NORMAL INSPECTION - Eye Exam Eye Exam: Normal appearance - Respiratory Exam Respiratory Exam: Clear to Ausculation Bilateral. absent: Rhonchi, Wheezes - Cardiovascular Exam Cardiovascular Exam: REGULAR RHYTHM, RRR - GI/Abdominal Exam GI & Abdominal Exam: Soft, Normal Bowel Sounds. absent: Tenderness - Extremities Exam Additional comments: dressing over his hand and his legs are seen. - Skin Skin Exam: Dry, Erythema Assessment and Plan - Assessment and Plan (Free Text) Assessment: Assessment and Plan (1) Deep vein thrombophlebitis of right leg Status: Acute Patient was seen by Dr. Ortega, initally said he want thrombolysis therapy but has changed his mind and wants to think over the risk and benefits of the therapy. Dr. Caba and Dr. Ortega was informed of patient's decision. He is currently on eliquis 5mg bid. Patient is also on Florastor. (2) Multiple abscess formation Status: Acute Patient is on IV Zyvox since 06/17, Dr. Marsh is consulted. (3) Leg edema, right Status: Acute Changed his pain medication to Percocet 5/325 2 tablets. Morphine and Tyelnol were dc (4) COPD (chronic obstructive pulmonary disease) Status: Chronic Duoneb 3ml prn q6h (5) Diabetes Status: Chronic accu checks and sliding scale (6) HTN (hypertension) Status: Chronic Aspirin 81mg Lasix 40mg daily (7) Renal insufficiency Status: Chronic (8) Prophylactic measure Status: Acute Pepcid 20mg Fully anticoaguated with Eiquis Mag Ox 400mg bid <Heaven Guerra V - Last Filed: 06/19/16 23:10> Objective - Vital Signs/Intake and Output Vital Signs (last 24 hours): Temp Pulse Resp BP Pulse Ox 97.5 F L 84 20 105/68 96 06/19/16 16:00 06/19/16 16:00 06/19/16 16:00 06/19/16 16:00 06/19/16 16:00 Intake and Output: 06/19/16 06/19/16 06:59 18:59 Intake Total 450 Balance 450 - Medications Medications: Current Medications Albuterol/Ipratropium (Duoneb 3 Mg/0.5 Mg (3 Ml) Ud) 3 ml INH RQ6 PRN PRN Reason: Wheezing Last Admin: 06/15/16 13:18 Dose: 3 ml Apixaban (Eliquis) 5 mg PO BID [facility] Last Admin: 06/19/16 09:34 Dose: 5 mg Aspirin (Aspirin Chewable) 81 mg PO DAILY [facility] Last Admin: 06/19/16 09:34 Dose: 81 mg Bacitracin (Bacitracin) 1 ea TOP BID [facility] Last Admin: 06/19/16 09:34 Dose: 1 ea Famotidine (Pepcid) 20 mg PO DAILY [facility] Last Admin: 06/19/16 09:35 Dose: 20 mg Furosemide (Lasix) 40 mg PO DAILY [facility] Last Admin: 06/19/16 09:34 Dose: 40 mg Linezolid (Zyvox 600mg/300ml D5w) 300 mls @ 200 mls/hr IVPB Q12H [facility] Last Admin: 06/19/16 05:25 Dose: 200 mls/hr Insulin Detemir (Levemir) 20 unit SC Q12H [facility] Last Admin: 06/19/16 11:00 Dose: 20 unit Insulin Human Regular (Novolin R) 0 unit SC ACHS ANABELLA PRN Reason: Protocol Last Admin: 06/19/16 12:31 Dose: 2 unit Magnesium Oxide (Mag-Ox) 400 mg PO BID [facility] Last Admin: 06/19/16 09:34 Dose: 400 mg Oxycodone/Acetaminophen (Percocet 5/325 Mg Tab) 2 tab PO Q4H PRN PRN Reason: Pain, severe (8-10) Stop: 06/22/16 09:10 Last Admin: 06/19/16 09:33 Dose: 2 tab Potassium Chloride (K-Dur 20 Meq Er Tab) 20 meq PO DAILY [facility] Last Admin: 06/19/16 09:34 Dose: 20 meq Saccharomyces Boulardii (Florastor) 250 mg PO BID [facility] Last Admin: 06/19/16 09:39 Dose: 250 mg - Labs Labs: 06/19/16 07:15 06/19/16 09:51 PT 14.2 SECONDS (9.7-12.2) H 06/19/16 09:51 INR 1.3 06/19/16 09:51 APTT 63 SECONDS (21-34) H 06/19/16 09:51 Assessment and Plan (1) Acute respiratory failure Status: Acute (2) Aspiration pneumonia Status: Acute (3) Sepsis Status: Acute (4) Leg edema, right Status: Acute (5) COPD (chronic obstructive pulmonary disease) Status: Chronic (6) Diabetes Status: Chronic (7) HTN (hypertension) Status: Chronic (8) Renal insufficiency Status: Chronic (9) Deep vein thrombophlebitis of right leg Status: Acute (10) Prophylactic measure Status: Acute Attending/Attestation - Attestation I have personally seen and examined this patient.: Yes I have fully participated in the care of the patient.: Yes I have reviewed all pertinent clinical information, including history, physical exam and plan: Yes Notes (Text): Patient seen, examined, and case discussed with day-time resident. Patient seen this morning. Patient reports he did not sleep well last night. Patient does not like the morphine requesting he has better pain relief with the percocet which he prefers Patient spoke with Dr. Ortega (vascular surgery) regarding thrombolysis surgery (including risks and benefits) given the patient's main concern is the deep vein thrombosis inspite of prior recommendation stating for no OR and lifelong anticoagulation. Patient has decided to proceed with surgery for thrombolytic therapy for DVT with Dr. Ortega (vascular surgery) at this afternoon; postpone surgery for abscess until the clot is dealt with. Resident has communicated patient's decision with both Dr. Ortega and Dr. Bello who are aware. Per cardiac clearance, patient is considered low risk for surgery. Patient is currently on Zyvox 600mg IV Q 12hours (active since 06/17/16). Discussed with infectious disease, continue IV abx, will come evaluate patient tomorrow in regards to abscesses over the right dorsum and right upper extremity in afternoon. procalcitonin has improved significantly since beginning of admission; and also expressed concern patient should not have thrombolytic therapy. In the evening, I've discussed with patient with family present around 6:15PM. Discussed again with patient in the evening with his and mother present who have been present during hospitalization. I have explained that there are risks associated with procedure such as thrombolysis given that patient has recently recovering following sepsis secondary to bactermia and VRE-UTi; as well as requiring ICU care following respiratory arrest, his kidney function ( stage 2) recovered with dialysis; patient has overcome many factors during hospitalization that the initial recommendation by surgery/Calista to lifelong anticoagulation without thrombolytic intervention was reasonable. It is understandable that patient will have pain associated with DVT, and that risk associated thrombolytic remain in light of chronic kidney disease and patient recovering from sepsis and acute respiratory failure; which patient has persistent leukocytosis. I also informed them (again) that the second surgeon indicated patient may have abscess (localized) infection in foot and leg that may need debridement but given that the present issue and initial complaint that brought the patient to the hospital was the DVT+; and may not be limited to one surgery may need recurrent. I have also explained to the patient his family, this is his decision but to understand why the initial recommendation was made. I've also explained that IVC filter is preventative from trying to prevent future clots from travelling to the lung from the leg but this is not 100% fullproof. Family and patient would like time to decide if they want thrombolytic therapy and also referred to surgeon, Dr. Vazquez and surgery resident who is in house for any further questions. patient's mother would like to bring his father who has a better understanding of these things in the morning. Patient would be tentatively scheduled for the afternoon if patient chooses to have surgery I have also explained that patient likely has antiphospholipid syndrome when I explained in layman terms that the body produces clots on its own and its possible to he could have new clots in spite of surgical intervention therapy. Patient has expressed to me prior visits he thinks this was caused by being in the hospital when I have explained with him before that is not the case. This syndrome will not be confirmed until repeat antibiodies with heme-oncologist in 12 week time.
[2016-06-19] MEDS: (Novolin R) Insulin Human Regular 100 units/ml vial SC SCH ×4 (08:43→21:58)
[2016-06-19] MEDS: Oxycodone/Acetaminophen 5/325 mg Tab PO PRN (09:33)
[2016-06-19] MEDS: Potassium Chloride 20 mEq ER Tab PO SCH (09:34)
[2016-06-19] MEDS: Magnesium Oxide 400 mg Tab UD PO SCH ×2 (09:34→18:02)
[2016-06-19] MEDS: Bacitracin 500 Units/gm Oint Foilpak UD TOP SCH ×2 (09:34→18:02)
[2016-06-19] MEDS: Saccharomyces Boulardi 250 mg Cap PO SCH ×2 (09:39→18:02)
[2016-06-19 10:05] LABS: CHLORIDE 96 mmol/L (98-107); INR 1.3; SODIUM 132 mmol/L (132-148)
[2016-06-19 10:06] LABS: POTASSIUM 3.8 mmol/L (3.6-5.2)
[2016-06-19 10:08] LABS: ALB/GLOB RATIO 0.8 (1.0-2.1); ALKALINE PHOSPHATASE 176 U/L (38-126); ALT/SGPT 42 U/L (21-72); AST/SGOT 30 U/L (17-59); BILIRUBIN,TOTAL 0.6 mg/dL (0.2-1.3); BLOOD UREA NITROGEN 28 mg/dL (9-20); CARBON DIOXIDE 29 mmol/L (22-30); GFR AFRICAN-AMERICAN > 60; GLUCOSE,RANDOM 218 mg/dL (75-110); TOTAL PROTEIN 4.8 g/dL (6.3-8.3)
[2016-06-19 10:09] LABS: CALCIUM 7.3 mg/dl (8.6-10.4)
[2016-06-19] MEDS: Insulin Detemir 100 units/ml Vial (Levemir) SC SCH ×2 (11:00→23:53)
--- NOTE | 2016-06-19 14:13 | CP.PCM.PN ---
Subjective - Date & Time of Evaluation Date of Evaluation: 06/19/16 Time of Evaluation: 14:10 - Subjective Subjective: no complaints. no cp or sob. family at bedside Objective - Vital Signs/Intake and Output Vital Signs (last 24 hours): Temp Pulse Resp BP Pulse Ox 97.6 F 91 H 20 138/79 95 06/19/16 08:07 06/19/16 08:07 06/19/16 08:07 06/19/16 09:34 06/19/16 08:07 Intake and Output: 06/19/16 06/19/16 06:59 18:59 Intake Total 450 Balance 450 - Medications Medications: Current Medications Albuterol/Ipratropium (Duoneb 3 Mg/0.5 Mg (3 Ml) Ud) 3 ml INH RQ6 PRN PRN Reason: Wheezing Last Admin: 06/15/16 13:18 Dose: 3 ml Apixaban (Eliquis) 5 mg PO BID [facility] Last Admin: 06/19/16 09:34 Dose: 5 mg Aspirin (Aspirin Chewable) 81 mg PO DAILY [facility] Last Admin: 06/19/16 09:34 Dose: 81 mg Bacitracin (Bacitracin) 1 ea TOP BID [facility] Last Admin: 06/19/16 09:34 Dose: 1 ea Famotidine (Pepcid) 20 mg PO DAILY [facility] Last Admin: 06/19/16 09:35 Dose: 20 mg Furosemide (Lasix) 40 mg PO DAILY [facility] Last Admin: 06/19/16 09:34 Dose: 40 mg Linezolid (Zyvox 600mg/300ml D5w) 300 mls @ 200 mls/hr IVPB Q12H [facility] Last Admin: 06/19/16 05:25 Dose: 200 mls/hr Insulin Detemir (Levemir) 20 unit SC Q12H [facility] Last Admin: 06/19/16 11:00 Dose: 20 unit Insulin Human Regular (Novolin R) 0 unit SC ACHS ANABELLA PRN Reason: Protocol Last Admin: 06/19/16 12:31 Dose: 2 unit Magnesium Oxide (Mag-Ox) 400 mg PO BID [facility] Last Admin: 06/19/16 09:34 Dose: 400 mg Oxycodone/Acetaminophen (Percocet 5/325 Mg Tab) 2 tab PO Q4H PRN PRN Reason: Pain, severe (8-10) Stop: 06/22/16 09:10 Last Admin: 06/19/16 09:33 Dose: 2 tab Potassium Chloride (K-Dur 20 Meq Er Tab) 20 meq PO DAILY [facility] Last Admin: 06/19/16 09:34 Dose: 20 meq Saccharomyces Boulardii (Florastor) 250 mg PO BID [facility] Last Admin: 06/19/16 09:39 Dose: 250 mg - Labs Labs: 06/19/16 07:15 06/19/16 09:51 PT 14.2 SECONDS (9.7-12.2) H 06/19/16 09:51 INR 1.3 06/19/16 09:51 APTT 63 SECONDS (21-34) H 06/19/16 09:51 - Constitutional Appears: Well - Head Exam Head Exam: ATRAUMATIC, NORMAL INSPECTION, NORMOCEPHALIC - Eye Exam Eye Exam: EOMI, Normal appearance, PERRL Pupil Exam: NORMAL ACCOMODATION, PERRL - ENT Exam ENT Exam: Mucous Membranes Moist, Normal Exam - Neck Exam Neck Exam: Full ROM, Normal Inspection. absent: Lymphadenopathy - Respiratory Exam Respiratory Exam: Clear to Ausculation Bilateral, NORMAL BREATHING PATTERN - Cardiovascular Exam Cardiovascular Exam: REGULAR RHYTHM, +S1, +S2. absent: Murmur - GI/Abdominal Exam GI & Abdominal Exam: Soft, Normal Bowel Sounds. absent: Tenderness - Extremities Exam Extremities Exam: Full ROM, Normal Capillary Refill, Pedal Edema. absent: Joint Swelling - Back Exam Back Exam: NORMAL INSPECTION - Neurological Exam Neurological Exam: Alert, Awake, CN II-XII Intact, Normal Gait, Oriented x3 - Psychiatric Exam Psychiatric exam: Normal Affect, Normal Mood - Skin Skin Exam: Dry, Intact, Normal Color, Warm Assessment and Plan (1) Coagulopathy Status: Acute (2) Deep vein thrombophlebitis of right leg Status: Acute (3) Deep venous thrombosis of lower extremity Status: Acute (4) Diabetes Status: Chronic (5) HTN (hypertension) Status: Chronic (6) Renal insufficiency Status: Chronic (7) RBBB Status: Chronic (8) Risk and functional assessment Status: Acute - Assessment and Plan (Free Text) Plan: Pt is low risk for IVCF placement. he may proceed to vascular lab. tele monitor thereafter echo and ekgs reviewed monitor lytes 25 min total care.
--- NOTE | 2016-06-19 15:19 | CON ---
DATE: 06/19/2016 The patient was admitted to the hospital 05/25, he has been seen on a regular basis since then. I wa s asked to see him today because he requested another opinion. Another surgeon recommended a vena ca va filter be placed and that he undergo incision and drainage of his right leg in an attempt to relie ve the pain. The patient was reexamined, his findings were reviewed. 1. The patient has no evidence of pulmonary embolism and is adequately anticoagulated. In view of t his, I would not recommend a filter at this time, but I have no strong objections if someone felt it was important to place one. The fact remains that he is anticoagulated and he has not had any untowa rd reactions such as GI bleeding or pulmonary embolism or other problems while on this. 2. With regard to draining his leg, the problem is swelling in the leg. The etiology of this is ext ensive iliofemoral thrombosis. 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 I have been reluctant to do this because even though it is under local anesthesia, it requires the pa tient to lay prone. He has had severe problems and remained intubated, renal insufficiency required dialysis. Because of all these problems, I have been reluctant to pursue it for fear tipping over . His leg is swollen because of his deep vein thrombosis. He needs elevation. I would not re commend any incision and drainage or procedures of this nature, and I would be quite reluctant to do so in a patient who has an extensive DVT, primarily because of the risk of creating a wound that woul d be quite difficult to heal. The option of thrombolytic therapy was discussed with the patient; he is undecided at this time and w ill make a decision. So my recommendation is thrombolytic therapy via catheter approach from the rig ht popliteal vein. A filter can or cannot be placed at that time, I think it is important to do so i f the patient had a pulmonary embolism, but in the absence of that or clot with vena cava, I generall y would not place it for this type of procedure, but it can be done and I have no strong objection to it. A filter should be of the removal type, if possible. Kristian Ortega Jr., MD cc: [id number] TT: 06/19/2016 15:18:51 Confirmation # [id number] Dictation # [id number]
--- NOTE | 2016-06-19 15:29 | CP.PCM.PCO ---
Physician Communication Note - Physician Communication Note Physician Communication Note: OR tomorrow for thrombolysis. Continue anticoagulation
[2016-06-20] MEDS: Oxycodone/Acetaminophen 5/325 mg Tab PO PRN (03:28)
[2016-06-20] MEDS: Linezolid 600 mg in D5W 300 ml 300 ML IVPB SCH ×2 (05:47→18:26)
[2016-06-20 07:22] LABS: BASO # 0.2 K/uL (0.0-0.2); BASO % 1.4 % (0.0-2.0); EOS # 1.1 K/uL (0.0-0.7); EOS % 7.1 % (0.0-4.0); HEMATOCRIT 33.3 % (35.0-51.0); LYMPH # 3.5 K/uL (1.0-4.3); LYMPH % 21.7 % (20.0-40.0); MEAN CELL VOLUME 87.5 fL (80.0-94.0); MEAN CORPUSCULAR HEMOGLOBIN 28.2 pg (27.0-31.0); MEAN CORPUSCULAR HGB CONC 32.2 g/dL (33.0-37.0); MEAN PLATELET VOLUME 9.8 fL (7.2-11.7); MONO # 2.6 K/uL (0.0-0.8); MONO % 16.3 % (0.0-10.0); NRBC % 0.1 % (0.0-2.0); PLATELET COUNT 174 K/uL (130-400); RED CELL DISTRIBUTION WIDTH 16.9 % (11.5-14.5)
[2016-06-20 08:03] LABS: CHLORIDE 98 mmol/L (98-107); SODIUM 135 mmol/L (132-148)
[2016-06-20 08:04] LABS: POTASSIUM 4.6 mmol/L (3.6-5.2)
[2016-06-20 08:05] LABS: BILIRUBIN,TOTAL 0.4 mg/dL (0.2-1.3); CARBON DIOXIDE 29 mmol/L (22-30); GFR AFRICAN-AMERICAN > 60
[2016-06-20 08:06] LABS: ALB/GLOB RATIO 0.8 (1.0-2.1); ALKALINE PHOSPHATASE 151 U/L (38-126); ALT/SGPT 37 U/L (21-72); AST/SGOT 30 U/L (17-59); BLOOD UREA NITROGEN 26 mg/dL (9-20); CALCIUM 7.4 mg/dl (8.6-10.4); GLUCOSE,RANDOM 117 mg/dL (75-110); MAGNESIUM 1.5 mg/dL (1.6-2.3); PHOSPHOROUS 3.5 mg/dL (2.5-4.5); TOTAL PROTEIN 4.7 g/dL (6.3-8.3)
[2016-06-20] MEDS: (Novolin R) Insulin Human Regular 100 units/ml vial SC SCH ×4 (08:24→22:31)
[2016-06-20 10:35] LABS: BASOPHIL 1 % (0-2); EOSINOPHIL 9 % (0-4); METAMYELOCYTE 1 % (0-0); NEUTROPHIL 49 % (50-75); REACTIVE LYMPHOCYTES 1 % (0-0); TOTAL CELLS COUNTED 100
[2016-06-20 10:37] LABS: LARGE PLATELETS PRESENT
--- NOTE | 2016-06-20 10:48 | CP.PCM.PN ---
Subjective - Date & Time of Evaluation Date of Evaluation: 06/20/16 Time of Evaluation: 10:45 - Subjective Subjective: For thrombolysis soon BP, renal function stable now Not dyspneic; feels better overall. No N, V, dyspnea, CPs, chills, fevers Eventually will need BREANA I- can start post thrombolysis if no acute events Objective - Vital Signs/Intake and Output Vital Signs (last 24 hours): Temp Pulse Resp BP Pulse Ox 97.5 F L 81 81 H 110/73 95 06/20/16 07:00 06/20/16 07:00 06/20/16 07:00 06/20/16 07:00 06/20/16 07:00 - Medications Medications: Current Medications Albuterol/Ipratropium (Duoneb 3 Mg/0.5 Mg (3 Ml) Ud) 3 ml INH RQ6 PRN PRN Reason: Wheezing Last Admin: 06/15/16 13:18 Dose: 3 ml Apixaban (Eliquis) 5 mg PO BID [facility] Last Admin: 06/19/16 18:02 Dose: 5 mg Aspirin (Aspirin Chewable) 81 mg PO DAILY [facility] Last Admin: 06/19/16 09:34 Dose: 81 mg Bacitracin (Bacitracin) 1 ea TOP BID [facility] Last Admin: 06/19/16 18:02 Dose: 1 ea Famotidine (Pepcid) 20 mg PO DAILY [facility] Last Admin: 06/19/16 09:35 Dose: 20 mg Furosemide (Lasix) 40 mg PO DAILY [facility] Last Admin: 06/19/16 09:34 Dose: 40 mg Linezolid (Zyvox 600mg/300ml D5w) 300 mls @ 200 mls/hr IVPB Q12H [facility] Last Admin: 06/20/16 05:47 Dose: 200 mls/hr Insulin Detemir (Levemir) 20 unit SC Q12H [facility] Last Admin: 06/19/16 23:53 Dose: 20 unit Insulin Human Regular (Novolin R) 0 unit SC ACHS ANABELLA PRN Reason: Protocol Last Admin: 06/20/16 08:24 Dose: Not Given Magnesium Oxide (Mag-Ox) 400 mg PO BID [facility] Last Admin: 06/19/16 18:02 Dose: 400 mg Oxycodone/Acetaminophen (Percocet 5/325 Mg Tab) 2 tab PO Q4H PRN PRN Reason: Pain, severe (8-10) Stop: 06/22/16 09:10 Last Admin: 06/20/16 03:28 Dose: 2 tab Potassium Chloride (K-Dur 20 Meq Er Tab) 20 meq PO DAILY [facility] Last Admin: 06/19/16 09:34 Dose: 20 meq Saccharomyces Boulardii (Florastor) 250 mg PO BID [facility] Last Admin: 06/19/16 18:02 Dose: 250 mg - Labs Labs: 06/20/16 07:13 06/20/16 07:13 PT 14.2 SECONDS (9.7-12.2) H 06/19/16 09:51 INR 1.3 06/19/16 09:51 APTT 63 SECONDS (21-34) H 06/19/16 09:51 - Constitutional Appears: No Acute Distress, Chronically Ill - Head Exam Head Exam: ATRAUMATIC, NORMAL INSPECTION - Eye Exam Eye Exam: EOMI, Normal appearance - Neck Exam Neck Exam: Normal Inspection. absent: Tenderness - Respiratory Exam Respiratory Exam: Clear to Ausculation Bilateral, NORMAL BREATHING PATTERN - Cardiovascular Exam Cardiovascular Exam: REGULAR RHYTHM, +S1 - GI/Abdominal Exam GI & Abdominal Exam: Soft. absent: Tenderness - Extremities Exam Extremities Exam: Pedal Edema, Tenderness - Neurological Exam Neurological Exam: Alert, CN II-XII Intact - Skin Skin Exam: Dry, Warm Assessment and Plan (1) Cellulitis Status: Acute (2) Chronic kidney disease, stage 3 (moderate) Status: Acute (3) Deep venous thrombosis of lower extremity Status: Acute (4) Proteinuria due to type 2 diabetes mellitus Status: Acute (5) Type 2 diabetes mellitus with diabetic nephropathy Status: Acute (6) Nephrotic syndrome Status: Acute - Assessment and Plan (Free Text) Plan: Thrombolysis Continue diuretic as is Eventual BREANA I
[2016-06-20] MEDS: Saccharomyces Boulardi 250 mg Cap PO SCH ×2 (10:59→18:14)
[2016-06-20] MEDS: Insulin Detemir 100 units/ml Vial (Levemir) SC SCH ×2 (10:59→22:31)
[2016-06-20] MEDS: Bacitracin 500 Units/gm Oint Foilpak UD TOP SCH ×2 (11:09→18:15)
[2016-06-20] MEDS: Potassium Chloride 20 mEq ER Tab PO SCH (11:09)
[2016-06-20] MEDS: Magnesium Oxide 400 mg Tab UD PO SCH ×2 (11:09→18:14)
--- NOTE | 2016-06-20 11:34 | CP.PCM.PN ---
<Rick Jernigan - Last Filed: 06/20/16 19:27> Subjective - Date & Time of Evaluation Date of Evaluation: 06/20/16 Time of Evaluation: 07:30 - Subjective Subjective: PGY-1 medicine note - Dr. Nathan service Patient seen and examined at bedside, chart reviewed and case discussed. No overnight events per nursing. Pt states that he feels slightly better today. Patient underwent thrombolytic procedure with Dr. Ortega in OR today 06/20 ( ileofemoral thrombosis right iliac vein). Patient denies fever, chills, headache , abdominal pain, nausea, vomiting, diarrhea, rash, dysuria or any additional acute complaints at this time. Objective - Vital Signs/Intake and Output Vital Signs (last 24 hours): Temp Pulse Resp BP Pulse Ox 97.5 F L 81 81 H 110/62 95 06/20/16 07:00 06/20/16 07:00 06/20/16 07:00 06/20/16 11:12 06/20/16 07:00 - Medications Medications: Current Medications Albuterol/Ipratropium (Duoneb 3 Mg/0.5 Mg (3 Ml) Ud) 3 ml INH RQ6 PRN PRN Reason: Wheezing Last Admin: 06/15/16 13:18 Dose: 3 ml Apixaban (Eliquis) 5 mg PO BID [facility] Last Admin: 06/20/16 10:59 Dose: Not Given Aspirin (Aspirin Chewable) 81 mg PO DAILY [facility] Last Admin: 06/20/16 10:59 Dose: Not Given Bacitracin (Bacitracin) 1 ea TOP BID [facility] Last Admin: 06/20/16 11:09 Dose: 1 ea Famotidine (Pepcid) 20 mg PO DAILY [facility] Last Admin: 06/20/16 10:59 Dose: Not Given Furosemide (Lasix) 40 mg PO DAILY [facility] Last Admin: 06/20/16 11:12 Dose: 40 mg Linezolid (Zyvox 600mg/300ml D5w) 300 mls @ 200 mls/hr IVPB Q12H [facility] Last Admin: 06/20/16 05:47 Dose: 200 mls/hr Insulin Detemir (Levemir) 20 unit SC Q12H [facility] Last Admin: 06/20/16 10:59 Dose: Not Given Insulin Human Regular (Novolin R) 0 unit SC ACHS [facility] PRN Reason: Protocol Last Admin: 06/20/16 10:59 Dose: Not Given Magnesium Oxide (Mag-Ox) 400 mg PO BID [facility] Last Admin: 06/20/16 11:09 Dose: 400 mg Oxycodone/Acetaminophen (Percocet 5/325 Mg Tab) 2 tab PO Q4H PRN PRN Reason: Pain, severe (8-10) Stop: 06/22/16 09:10 Last Admin: 06/20/16 03:28 Dose: 2 tab Potassium Chloride (K-Dur 20 Meq Er Tab) 20 meq PO DAILY [facility] Last Admin: 06/20/16 11:09 Dose: 20 meq Saccharomyces Boulardii (Florastor) 250 mg PO BID [facility] Last Admin: 06/20/16 10:59 Dose: Not Given - Labs Labs: 06/20/16 07:13 06/20/16 07:13 PT 14.2 SECONDS (9.7-12.2) H 06/19/16 09:51 INR 1.3 06/19/16 09:51 APTT 63 SECONDS (21-34) H 06/19/16 09:51 - Additional Findings Additional findings: - Constitutional Appears: Non-toxic, No Acute Distress - Head Exam Head Exam: ATRAUMATIC, NORMAL INSPECTION, NORMOCEPHALIC - Eye Exam Eye Exam: EOMI, Normal appearance, PERRL - Respiratory Exam Respiratory Exam: Clear to Ausculation Bilateral. absent: Rhonchi, Wheezes - Cardiovascular Exam Cardiovascular Exam: REGULAR RHYTHM, +S1, +S2. absent: Murmur - GI/Abdominal Exam GI & Abdominal Exam: Soft, Normal Bowel Sounds. absent: Tenderness - Extremities Exam Extremities Exam: Full ROM, Normal Capillary Refill, Normal Inspection, Pedal Edema. absent: Joint Swelling Additional comments: dressing over his hand and his legs are seen. - Back Exam Back Exam: NORMAL INSPECTION - Neurological Exam Neurological Exam: Alert, Awake, CN II-XII Intact, Normal Gait, Oriented x3 - Psychiatric Exam Psychiatric exam: Normal Affect, Normal Mood - Skin Skin Exam: Dry, Intact, Normal Color, Warm Assessment and Plan - Assessment and Plan (Free Text) Assessment: (1) Deep vein thrombophlebitis of right leg Status: Acute 4/: Patient went to OR today with Dr. Ortega to correct ileofemoral thrombosis right iliac vein. Operative findings included partial lysis of clot in right iliac and ivcf placed via left groin. Patient in ICU s/p procedure for overnight monitoring. -Continue Eliquis 5mg bid Patient was seen by Dr. Ortega, initally said he want thrombolysis therapy but has changed his mind and wants to think over the risk and benefits of the therapy. Dr. Caba and Dr. Ortega was informed of patient's decision. (2) Multiple abscess formation Status: Acute -IV Zyvox since 06/17 -Florastor Dr. Marsh is consulted, f/u recs. (3) Leg edema, right Status: Acute Changed his pain medication to Percocet 5/325 2 tablets. Morphine and Tyelnol were dc (4) COPD (chronic obstructive pulmonary disease) Status: Chronic Duoneb 3ml prn q6h (5) Diabetes Status: Chronic accu checks and sliding scale (6) HTN (hypertension) Status: Chronic Aspirin 81mg Lasix 40mg daily (7) Renal insufficiency Status: Chronic Nephrology consulted, Dr. Rhoades -Continue diuretic -Eventually will need BREANA I- can start post thrombolysis if no acute events (8) Prophylactic measure Status: Acute Pepcid 20mg Fully anticoaguated with Eiquis Mag Ox 400mg bid SCDs contraindicated due to DVT <Rick Godinez H - Last Filed: 06/21/16 07:40> Objective - Vital Signs/Intake and Output Vital Signs (last 24 hours): Temp Pulse Resp BP Pulse Ox 98 F 88 20 152/77 H 97 06/21/16 01:00 06/21/16 06:00 06/21/16 06:00 06/21/16 06:00 06/21/16 06:00 Intake and Output: 06/21/16 06/21/16 06:59 18:59 Intake Total 1800 Output Total 2390 Balance -590 - Medications Medications: Current Medications Albuterol/Ipratropium (Duoneb 3 Mg/0.5 Mg (3 Ml) Ud) 3 ml INH RQ6 PRN PRN Reason: Wheezing Last Admin: 06/15/16 13:18 Dose: 3 ml Apixaban (Eliquis) 5 mg PO BID [facility] Last Admin: 06/20/16 18:26 Dose: Not Given Aspirin (Aspirin Chewable) 81 mg PO DAILY [facility] Last Admin: 06/20/16 10:59 Dose: Not Given Bacitracin (Bacitracin) 1 ea TOP BID [facility] Last Admin: 06/20/16 18:15 Dose: 1 ea Famotidine (Pepcid) 20 mg PO DAILY [facility] Last Admin: 06/20/16 10:59 Dose: Not Given Furosemide (Lasix) 40 mg PO DAILY [facility] Last Admin: 06/20/16 11:12 Dose: 40 mg Linezolid (Zyvox 600mg/300ml D5w) 300 mls @ 200 mls/hr IVPB Q12H [facility] Last Admin: 06/21/16 05:32 Dose: 200 mls/hr Dextrose/Sodium Chloride (Dextrose 5%/0.45% Ns 1000 Ml) 1,000 mls @ 125 mls/hr IV .Q8H [facility] Last Admin: 06/21/16 00:50 Dose: 125 mls/hr Insulin Detemir (Levemir) 20 unit SC Q12H [facility] Last Admin: 06/20/16 22:31 Dose: Not Given Insulin Human Regular (Novolin R) 0 unit SC ACHS [facility] PRN Reason: Protocol Last Admin: 06/20/16 22:31 Dose: Not Given Magnesium Oxide (Mag-Ox) 400 mg PO BID [facility] Last Admin: 06/20/16 18:14 Dose: 400 mg Oxycodone/Acetaminophen (Percocet 5/325 Mg Tab) 2 tab PO Q4H PRN PRN Reason: Pain, severe (8-10) Stop: 06/22/16 09:10 Last Admin: 06/21/16 00:25 Dose: 2 tab Potassium Chloride (K-Dur 20 Meq Er Tab) 20 meq PO DAILY [facility] Last Admin: 06/20/16 11:09 Dose: 20 meq Saccharomyces Boulardii (Florastor) 250 mg PO BID [facility] Last Admin: 06/20/16 18:14 Dose: 250 mg - Labs Labs: 06/20/16 07:13 06/20/16 07:13 PT 14.2 SECONDS (9.7-12.2) H 06/19/16 09:51 INR 1.3 06/19/16 09:51 APTT 63 SECONDS (21-34) H 06/19/16 09:51 Attending/Attestation - Attestation I have personally seen and examined this patient.: Yes I have fully participated in the care of the patient.: Yes I have reviewed all pertinent clinical information, including history, physical exam and plan: Yes Notes (Text): 06/21/16 07:39 Medical Attending: Patient was seen and examined by me, agree with the above note by the resident. The patient after the thrombolysis as well as IVC placement went to the ICU for further monitoring particularly of the renal function thank you Rick godinez
[2016-06-20] MEDS ORDERED: Iodixanol 320 MG/ML 200 ML BOTTLE IV ONE (12:39)
[2016-06-20] MEDS ORDERED: Dexmedetomidine Hydrochloride 100 mcg/ml (2ML) ONE (12:42)
[2016-06-20] MEDS ORDERED: Midazolam 2 MG/2 ML VIAL ONE (12:42)
[2016-06-20] MEDS ORDERED: Ketamine 50 mg/ml Inj (10 ml) ONE (12:53)
[2016-06-20] MEDS ORDERED: Lidocaine 2% Inj (20ml) ONE (13:07)
[2016-06-20] MEDS ORDERED: Iodixanol 320 MG/ML 100 ML BOTTLE IV ONE (13:23)
--- NOTE | 2016-06-20 15:29 | PCM.SURG1 ---
Surgeon's Initial Post Op Note - Surgeon's Notes Surgeon: abbie Environmental Director: 0 Type of Anesthesia: IV Sedation Anesthesia Administered By: misha Pre-Operative Diagnosis: ileofemoral thrombosis right iliac vein Operative Findings: partial lysis of clot in right iliac. ivcf placed via left groin Post-Operative Diagnosis: same Operation Performed: bard som removable ivcf. angiojet mechanical thrombolysis via right popliteal vein. venoplasty of right common and external iliac veins Specimen/Specimens Removed: 0 Estimated Blood Loss: EBL {In ML}: 125 Blood Products Given: N/A Drains Used: No Drains Post-Op Condition: Good Date of Surgery/Procedure: 06/20/16 Time of Surgery/Procedure: 15:30
--- NOTE | 2016-06-20 15:45 | CP.PCM.PN ---
Subjective - Date & Time of Evaluation Date of Evaluation: 06/20/16 Time of Evaluation: 15:43 - Subjective Subjective: going to icu sp le thrombolysis. Objective - Vital Signs/Intake and Output Vital Signs (last 24 hours): Temp Pulse Resp BP Pulse Ox 97.5 F L 81 81 H 110/62 95 06/20/16 07:00 06/20/16 08:00 06/20/16 07:00 06/20/16 11:12 06/20/16 07:00 - Medications Medications: Current Medications Albuterol/Ipratropium (Duoneb 3 Mg/0.5 Mg (3 Ml) Ud) 3 ml INH RQ6 PRN PRN Reason: Wheezing Last Admin: 06/15/16 13:18 Dose: 3 ml Apixaban (Eliquis) 5 mg PO BID [facility] Last Admin: 06/20/16 10:59 Dose: Not Given Aspirin (Aspirin Chewable) 81 mg PO DAILY [facility] Last Admin: 06/20/16 10:59 Dose: Not Given Bacitracin (Bacitracin) 1 ea TOP BID [facility] Last Admin: 06/20/16 11:09 Dose: 1 ea Famotidine (Pepcid) 20 mg PO DAILY [facility] Last Admin: 06/20/16 10:59 Dose: Not Given Furosemide (Lasix) 40 mg PO DAILY [facility] Last Admin: 06/20/16 11:12 Dose: 40 mg Linezolid (Zyvox 600mg/300ml D5w) 300 mls @ 200 mls/hr IVPB Q12H [facility] Last Admin: 06/20/16 05:47 Dose: 200 mls/hr Dextrose/Sodium Chloride (Dextrose 5%/0.45% Ns 1000 Ml) 1,000 mls @ 125 mls/hr IV .Q8H [facility] Insulin Detemir (Levemir) 20 unit SC Q12H [facility] Last Admin: 06/20/16 10:59 Dose: Not Given Insulin Human Regular (Novolin R) 0 unit SC ACHS [facility] PRN Reason: Protocol Last Admin: 06/20/16 10:59 Dose: Not Given Magnesium Oxide (Mag-Ox) 400 mg PO BID [facility] Last Admin: 06/20/16 11:09 Dose: 400 mg Oxycodone/Acetaminophen (Percocet 5/325 Mg Tab) 2 tab PO Q4H PRN PRN Reason: Pain, severe (8-10) Stop: 06/22/16 09:10 Last Admin: 06/20/16 03:28 Dose: 2 tab Potassium Chloride (K-Dur 20 Meq Er Tab) 20 meq PO DAILY [facility] Last Admin: 06/20/16 11:09 Dose: 20 meq Saccharomyces Boulardii (Florastor) 250 mg PO BID [facility] Last Admin: 06/20/16 10:59 Dose: Not Given - Labs Labs: 06/20/16 07:13 06/20/16 07:13 PT 14.2 SECONDS (9.7-12.2) H 06/19/16 09:51 INR 1.3 06/19/16 09:51 APTT 63 SECONDS (21-34) H 06/19/16 09:51 - Constitutional Appears: Well - Head Exam Head Exam: ATRAUMATIC, NORMAL INSPECTION, NORMOCEPHALIC - Eye Exam Eye Exam: EOMI, Normal appearance, PERRL Pupil Exam: NORMAL ACCOMODATION, PERRL - ENT Exam ENT Exam: Mucous Membranes Moist, Normal Exam - Neck Exam Neck Exam: Full ROM, Normal Inspection. absent: Lymphadenopathy - Respiratory Exam Respiratory Exam: Clear to Ausculation Bilateral, NORMAL BREATHING PATTERN - Cardiovascular Exam Cardiovascular Exam: REGULAR RHYTHM, +S1, +S2. absent: Murmur - GI/Abdominal Exam GI & Abdominal Exam: Soft, Normal Bowel Sounds. absent: Tenderness - Extremities Exam Extremities Exam: Full ROM, Normal Capillary Refill, Normal Inspection, Pedal Edema. absent: Joint Swelling - Back Exam Back Exam: NORMAL INSPECTION - Neurological Exam Neurological Exam: Alert, Awake, CN II-XII Intact, Normal Gait, Oriented x3 - Psychiatric Exam Psychiatric exam: Normal Affect, Normal Mood - Skin Skin Exam: Dry, Intact, Normal Color, Warm Assessment and Plan (1) Coagulopathy Status: Acute (2) Deep vein thrombophlebitis of right leg Status: Acute (3) Deep venous thrombosis of lower extremity Status: Acute (4) Diabetes Status: Chronic (5) HTN (hypertension) Status: Chronic (6) Renal insufficiency Status: Chronic (7) RBBB Status: Chronic (8) Risk and functional assessment Status: Acute - Assessment and Plan (Free Text) Plan: icu monitor for 24. repleat humberto
[2016-06-20] MEDS: Dextrose 5%/0.45% NS 1,000 ML IV SCH (16:05)
--- NOTE | 2016-06-20 18:54 | CP.CCUPN ---
CCU Subjective - Physician Review Subjective (Free Text): 06/06/16 15:56 Pt seen and examined. He is intubated and sedated at this time. Patient family friend present bedside. No acute events overnight per nursing. An ROS could nto be obtained at this time due to patient's clinical status. 06/07/16 14:14 Pt seen and examined. He is intubated and sedated at this time. Patient family friend present bedside. No acute events overnight per nursing. Dr. Vargas ( Medicine hospitalist) had extensive discussion with patient's family yesterday regarding patient's status. An ROS could not be obtained at this time due to patient's clinical status. 06/09/16 09:27 Patient was seen and examined at bedside. Pt self extubated this morning shortly before rounds as noted by nursing team. Patient was a difficult inubation in light of patient's body habitus. Patient on propofol drip however still actively moving limbs. 2 mg Versed, 20 mg Etomidate, 100 mg Succinylcholine given IV in attempt to sedate patient. Movements likely continued due to morbid obesity. No acute events overnight per nursing. ROS could not be obtained at this time due to patient's clinical status. Pt received HD yesterday with 2.5L removed. He tolerated well. 06/13/16 15:57 Pt seen and examined in no acute distress. Patient initially quite somnolent but more alert on second evaluation. Patient had no acute events overnight. He denies any chest pain, palpitations, subjective fevers or chills currently, nausea, vomiting, or urinary issues at this time. CCU Objective - Vital Signs / Intake & Output Vital Signs (Last 4 hours): Vital Signs Temp Pulse Resp BP Pulse Ox 06/20/16 16:00 96.7 F L 76 15 140/87 100 06/20/16 15:40 96.7 F L 76 15 129/84 95 Intake and Output (Last 8hrs): Intake & Output 06/20/16 06/20/16 06/20/16 06:59 14:59 22:59 Intake Total 125 Output Total 780 Balance -655 Intake: Intake, IV Amount 125 Left Upper arm 125 Output: Urine 780 Urethral ([place]) 780 - Physical Exam Head: Positive for: Atraumatic, Normocephalic Pupils: Positive for: PERRL Conjunctiva: Positive for: Normal Mouth: Positive for: Moist Mucous Membranes Respiratory/Chest: Positive for: Clear to Auscultation Cardiovascular: Positive for: Regular Rate and Rhythm Abdomen: Positive for: Normal Bowel Sounds. Negative for: Tenderness, Distention Upper Extremity: Positive for: Edema Lower Extremity: Positive for: Edema, Swelling, Erythema Skin: Positive for: Warm, Dry - Medications Active Medications: Active Medications Generic Name Dose Route Start Last Admin Trade Name Freq PRN Reason Stop Dose Admin Albuterol/Ipratropium 3 ml 06/12/16 13:24 06/15/16 13:18 Duoneb 3 Mg/0.5 Mg (3 Ml) Ud INH 3 ml RQ6 PRN Administration Wheezing Apixaban 5 mg 06/10/16 18:00 06/20/16 18:26 Eliquis PO Not Given BID [facility] Aspirin 81 mg 05/26/16 10:00 06/20/16 10:59 Aspirin Chewable PO Not Given DAILY [facility] Bacitracin 1 ea 06/12/16 18:00 06/20/16 18:15 Bacitracin TOP 1 ea BID [facility] Administration Famotidine 20 mg 06/15/16 10:00 06/20/16 10:59 Pepcid PO Not Given DAILY [facility] Furosemide 40 mg 06/16/16 10:15 06/20/16 11:12 Lasix PO 40 mg DAILY [facility] Administration Linezolid 300 mls @ 200 mls/hr 06/17/16 18:00 06/20/16 18:26 Zyvox 600mg/300ml D5w IVPB 200 mls/hr Q12H [facility] Administration Dextrose/Sodium Chloride 1,000 mls @ 125 mls/hr 06/20/16 15:45 06/20/16 16:05 Dextrose 5%/0.45% Ns 1000 Ml IV 125 mls/hr .Q8H [facility] Administration Insulin Detemir 20 unit 06/18/16 11:04 06/20/16 10:59 Levemir SC Not Given Q12H [facility] Insulin Human Regular 0 unit 06/13/16 11:30 06/20/16 16:26 Novolin R SC Not Given ACHS [facility] Protocol Magnesium Oxide 400 mg 06/18/16 10:15 06/20/16 18:14 Mag-Ox PO 400 mg BID [facility] Administration Oxycodone/Acetaminophen 2 tab 06/19/16 09:09 06/20/16 03:28 Percocet 5/325 Mg Tab PO 06/22/16 09:10 2 tab Q4H PRN Administration Pain, severe (8-10) Potassium Chloride 20 meq 06/16/16 10:15 06/20/16 11:09 K-Dur 20 Meq Er Tab PO 20 meq DAILY [facility] Administration Saccharomyces Boulardii 250 mg 06/14/16 11:45 06/20/16 18:14 Florastor PO 250 mg BID [facility] Administration - Patient Studies Lab Studies: Microbiology Studies 06/17/16 18:00 Catheter Tip Culture - Final Indwelling Cath Tip No growth. Lab Studies 06/20/16 06/20/16 06/20/16 Range/Units 16:14 11:29 07:28 WBC (4.8-10.8) K/uL RBC (4.40-5.90) Mil/uL Hgb (12.0-18.0) g/dL Hct (35.0-51.0) % MCV (80.0-94.0) fL MCH (27.0-31.0) pg MCHC (33.0-37.0) g/dL RDW (11.5-14.5) % Plt Count (130-400) K/uL MPV (7.2-11.7) fL Neut % (Auto) (50.0-75.0) % Lymph % (Auto) (20.0-40.0) % [place] % (Auto) (0.0-10.0) % Eos % (Auto) (0.0-4.0) % Baso % (Auto) (0.0-2.0) % Neut # (1.8-7.0) K/uL Lymph # (1.0-4.3) K/uL [place] # (0.0-0.8) K/uL Eos # (0.0-0.7) K/uL Baso # (0.0-0.2) K/uL Neutrophils % (Manual) (50-75) % Band Neutrophils % (0-2) % Lymphocytes % (Manual) (20-40) % Reactive Lymphs % (0-0) % Monocytes % (Manual) (0-10) % Eosinophils % (Manual) (0-4) % Basophils % (Manual) (0-2) % Metamyelocytes % (0-0) % Platelet Estimate (NORMAL) Large Platelets Poikilocytosis (manual Basophilic Stippling Anisocytosis (manual) Sodium (132-148) mmol/L Potassium (3.6-5.2) mmol/L Chloride (98-107) mmol/L Carbon Dioxide (22-30) mmol/L Anion Gap (10-20) BUN (9-20) mg/dL Creatinine (0.8-1.5) MG/DL Est GFR ( Amer) Est GFR (Non-Af Amer) POC Glucose (mg/dL) 85 82 (65-110) mg/dL Random Glucose (75-110) mg/dL Calcium (8.6-10.4) mg/dl Phosphorus (2.5-4.5) mg/dL Magnesium (1.6-2.3) mg/dL Total Bilirubin (0.2-1.3) mg/dL AST (17-59) U/L ALT (21-72) U/L Alkaline Phosphatase (38-126) U/L Total Protein (6.3-8.3) g/dL Albumin (3.5-5.0) g/dL Globulin (2.2-3.9) gm/dL Albumin/Globulin Ratio (1.0-2.1) Blood Type A POSITIVE Antibody Screen Negative 06/20/16 06/20/16 06/19/16 Range/Units 07:13 06:36 21:29 WBC 16.0 H (4.8-10.8) K/uL RBC 3.81 L (4.40-5.90) Mil/uL Hgb 10.7 L (12.0-18.0) g/dL Hct 33.3 L (35.0-51.0) % MCV 87.5 (80.0-94.0) fL MCH 28.2 (27.0-31.0) pg MCHC 32.2 L (33.0-37.0) g/dL RDW 16.9 H (11.5-14.5) % Plt Count 174 (130-400) K/uL MPV 9.8 (7.2-11.7) fL Neut % (Auto) 53.5 (50.0-75.0) % Lymph % (Auto) 21.7 (20.0-40.0) % [place] % (Auto) 16.3 H (0.0-10.0) % Eos % (Auto) 7.1 H (0.0-4.0) % Baso % (Auto) 1.4 (0.0-2.0) % Neut # 8.6 H (1.8-7.0) K/uL Lymph # 3.5 (1.0-4.3) K/uL [place] # 2.6 H (0.0-0.8) K/uL Eos # 1.1 H (0.0-0.7) K/uL Baso # 0.2 (0.0-0.2) K/uL Neutrophils % (Manual) 49 L (50-75) % Band Neutrophils % 9 H (0-2) % Lymphocytes % (Manual) 25 (20-40) % Reactive Lymphs % 1 H (0-0) % Monocytes % (Manual) 5 (0-10) % Eosinophils % (Manual) 9 H (0-4) % Basophils % (Manual) 1 (0-2) % Metamyelocytes % 1 H (0-0) % Platelet Estimate Normal (NORMAL) Large Platelets Present Poikilocytosis (manual Slight Basophilic Stippling Slight Anisocytosis (manual) Slight Sodium 135 (132-148) mmol/L Potassium 4.6 (3.6-5.2) mmol/L Chloride 98 (98-107) mmol/L Carbon Dioxide 29 (22-30) mmol/L Anion Gap 13 (10-20) BUN 26 H (9-20) mg/dL Creatinine 1.3 (0.8-1.5) MG/DL Est GFR ( Amer) > 60 Est GFR (Non-Af Amer) 59 POC Glucose (mg/dL) 131 H 229 H (65-110) mg/dL Random Glucose 117 H (75-110) mg/dL Calcium 7.4 L (8.6-10.4) mg/dl Phosphorus 3.5 (2.5-4.5) mg/dL Magnesium 1.5 L (1.6-2.3) mg/dL Total Bilirubin 0.4 (0.2-1.3) mg/dL AST 30 (17-59) U/L ALT 37 (21-72) U/L Alkaline Phosphatase 151 H (38-126) U/L Total Protein 4.7 L (6.3-8.3) g/dL Albumin 2.1 L (3.5-5.0) g/dL Globulin 2.6 (2.2-3.9) gm/dL Albumin/Globulin Ratio 0.8 L (1.0-2.1) Blood Type Antibody Screen Laboratory Results - last 24 hr 06/19/16 06/20/16 06/20/16 21:29 06:36 07:13 WBC 16.0 H RBC 3.81 L Hgb 10.7 L Hct 33.3 L MCV 87.5 MCH 28.2 MCHC 32.2 L RDW 16.9 H Plt Count 174 MPV 9.8 Neut % (Auto) 53.5 Lymph % (Auto) 21.7 [place] % (Auto) 16.3 H Eos % (Auto) 7.1 H Baso % (Auto) 1.4 Neut # 8.6 H Lymph # 3.5 [place] # 2.6 H Eos # 1.1 H Baso # 0.2 Neutrophils % (Manual) 49 L Band Neutrophils % 9 H Lymphocytes % (Manual) 25 Reactive Lymphs % 1 H Monocytes % (Manual) 5 Eosinophils % (Manual) 9 H Basophils % (Manual) 1 Metamyelocytes % 1 H Platelet Estimate Normal Large Platelets Present Poikilocytosis (manual Slight Basophilic Stippling Slight Anisocytosis (manual) Slight Sodium 135 Potassium 4.6 Chloride 98 Carbon Dioxide 29 Anion Gap 13 BUN 26 H Creatinine 1.3 Est GFR ( Amer) > 60 Est GFR (Non-Af Amer) 59 POC Glucose (mg/dL) 229 H 131 H Random Glucose 117 H Calcium 7.4 L Phosphorus 3.5 Magnesium 1.5 L Total Bilirubin 0.4 AST 30 ALT 37 Alkaline Phosphatase 151 H Total Protein 4.7 L Albumin 2.1 L Globulin 2.6 Albumin/Globulin Ratio 0.8 L Blood Type Antibody Screen 06/20/16 06/20/16 06/20/16 07:28 11:29 16:14 WBC RBC Hgb Hct MCV MCH MCHC RDW Plt Count MPV Neut % (Auto) Lymph % (Auto) [place] % (Auto) Eos % (Auto) Baso % (Auto) Neut # Lymph # [place] # Eos # Baso # Neutrophils % (Manual) Band Neutrophils % Lymphocytes % (Manual) Reactive Lymphs % Monocytes % (Manual) Eosinophils % (Manual) Basophils % (Manual) Metamyelocytes % Platelet Estimate Large Platelets Poikilocytosis (manual Basophilic Stippling Anisocytosis (manual) Sodium Potassium Chloride Carbon Dioxide Anion Gap BUN Creatinine Est GFR ( Amer) Est GFR (Non-Af Amer) POC Glucose (mg/dL) 82 85 Random Glucose Calcium Phosphorus Magnesium Total Bilirubin AST ALT Alkaline Phosphatase Total Protein Albumin Globulin Albumin/Globulin Ratio Blood Type A POSITIVE Antibody Screen Negative Fingerstick Blood Sugar Results: 85 Critical Care Progress Note - Nutrition Nutrition: Nutrition Category Date Time Status Regular Diet [DIET] Diets 06/20/16 Dinner Active
--- NOTE | 2016-06-20 18:55 | CP.PCM.CON ---
History of Present Illness - History of Present Illness History of Present Illness: CRITICAL CARE CONSULT NOTE (As noted in prior consult note) 45 year old male with PMHx of COPD, asthma, DM, HN, DVT in RLE, NSTEMI in 2015, gallstones, liver cirrhosis, and CKD presents with complaint of aright LE pain and swelling. Pt recently was admitted to [facility] and found to have a DVT in his right lower extremity and discharged on Xarelto. Repeat venous doppler consistent with extensive right femoral and iliac vein DVT. Patient admitted to ICU previously for managed care after being found unresponsive on the medical floor. Patient was intubated and improved and downgraded. Patient now presents today for observation s/p partial thrombolysis of clot in right iliac vein with IVC filter placement. PMHx: COPD, asthma, DM, HN, DVT in RLE, NSTEMI in 01/2016, gallstones, liver cirrhosis, and CKD Surgical Hx: splenectomy, and procedure mentioned above Family Hx: Mom- DM Social hx: Previous smoker for 20 years, quit ~5 years ago; denies illicit drug use; denies EtOH use; unemployed Allergies: NKDA Review of Systems - Constitutional Constitutional: absent: Chills, Fever - EENT Eyes: absent: Blurred Vision, Change in Vision Ears: absent: Ear Discharge, Ear Pain Nose/Mouth/Throat: absent: Nasal Congestion, Nasal Discharge - Cardiovascular Cardiovascular: absent: Chest Pain, Chest Pain at Rest - Respiratory Respiratory: absent: Cough, Dyspnea - Gastrointestinal Gastrointestinal: absent: Heartburn, Nausea, Vomiting - Integumentary Integumentary: absent: Change in Hair, Dry Skin - Neurological Neurological: absent: Abnormal Gait, Abnormal Hearing - Psychiatric Psychiatric: absent: Abnormal Sleep Pattern - Endocrine Endocrine: absent: Fatigue Past Patient History - Infectious Disease Hx of Infectious Diseases: None - Past Medical History & Family History Past Medical History?: Yes - Past Social History Smoking Status: Former Smoker - CARDIAC Hx Hypertension: Yes - PULMONARY Hx Chronic Obstructive Pulmonary Disease (COPD): Yes - NEUROLOGICAL Hx Neurological Disorder: Yes Other/Comment: c/o headache on admission, spinal tap attempted to remove spinal fluid. becuase of immobility developed DVT. at the time. right leg. - HEENT Hx HEENT Problems: No - RENAL Hx Chronic Kidney Disease: No - ENDOCRINE/METABOLIC Hx Diabetes Mellitus Type 1: Yes - HEMATOLOGICAL/ONCOLOGICAL Hx Blood Disorders: No - INTEGUMENTARY Hx Dermatological Problems: Yes Hx Cellulitis: Yes - MUSCULOSKELETAL/RHEUMATOLOGICAL Hx Musculoskeletal Disorders: No Hx Falls: No - GASTROINTESTINAL Hx Gastrointestinal Disorders: No - GENITOURINARY/GYNECOLOGICAL Hx Genitourinary Disorders: No - PSYCHIATRIC Hx Substance Use: No - SURGICAL HISTORY Hx Surgeries: Yes Hx Splenectomy: Yes (3 years ago) Hx Vascular Access Device: Yes (HX INGUINAL PERMA CATH) - ANESTHESIA Hx Anesthesia: Yes Hx Anesthesia Reactions: No Hx Malignant Hyperthermia: No Has any member of the family had a problem w/ anesthesia?: No Meds Allergies/Adverse Reactions: Allergies Allergy/AdvReac Type Severity Reaction Status Date / Time EGG Allergy Intermediate RASH Verified 05/25/16 14:29 - Medications Medications: Current Medications Albuterol/Ipratropium (Duoneb 3 Mg/0.5 Mg (3 Ml) Ud) 3 ml INH RQ6 PRN PRN Reason: Wheezing Last Admin: 06/15/16 13:18 Dose: 3 ml Apixaban (Eliquis) 5 mg PO BID [facility] Last Admin: 06/20/16 18:26 Dose: Not Given Aspirin (Aspirin Chewable) 81 mg PO DAILY [facility] Last Admin: 06/20/16 10:59 Dose: Not Given Bacitracin (Bacitracin) 1 ea TOP BID [facility] Last Admin: 06/20/16 18:15 Dose: 1 ea Famotidine (Pepcid) 20 mg PO DAILY [facility] Last Admin: 06/20/16 10:59 Dose: Not Given Furosemide (Lasix) 40 mg PO DAILY [facility] Last Admin: 06/20/16 11:12 Dose: 40 mg Linezolid (Zyvox 600mg/300ml D5w) 300 mls @ 200 mls/hr IVPB Q12H [facility] Last Admin: 06/20/16 18:26 Dose: 200 mls/hr Dextrose/Sodium Chloride (Dextrose 5%/0.45% Ns 1000 Ml) 1,000 mls @ 125 mls/hr IV .Q8H [facility] Last Admin: 06/20/16 16:05 Dose: 125 mls/hr Insulin Detemir (Levemir) 20 unit SC Q12H [facility] Last Admin: 06/20/16 10:59 Dose: Not Given Insulin Human Regular (Novolin R) 0 unit SC ACHS [facility] PRN Reason: Protocol Last Admin: 06/20/16 16:26 Dose: Not Given Magnesium Oxide (Mag-Ox) 400 mg PO BID [facility] Last Admin: 06/20/16 18:14 Dose: 400 mg Oxycodone/Acetaminophen (Percocet 5/325 Mg Tab) 2 tab PO Q4H PRN PRN Reason: Pain, severe (8-10) Stop: 06/22/16 09:10 Last Admin: 06/20/16 03:28 Dose: 2 tab Potassium Chloride (K-Dur 20 Meq Er Tab) 20 meq PO DAILY [facility] Last Admin: 06/20/16 11:09 Dose: 20 meq Saccharomyces Boulardii (Florastor) 250 mg PO BID [facility] Last Admin: 06/20/16 18:14 Dose: 250 mg Physical Exam - Constitutional Appears: No Acute Distress - Head Exam Head Exam: ATRAUMATIC, NORMAL INSPECTION, NORMOCEPHALIC - Eye Exam Eye Exam: EOMI, Normal appearance, PERRL Pupil Exam: NORMAL ACCOMODATION, PERRL - ENT Exam ENT Exam: Mucous Membranes Moist, Normal Exam - Neck Exam Neck exam: Positive for: Full Rom - Respiratory Exam Respiratory Exam: Clear to Auscultation Bilateral, NORMAL BREATHING PATTERN. absent: Wheezes - Cardiovascular Exam Cardiovascular Exam: REGULAR RHYTHM, +S1, +S2 - GI/Abdominal Exam GI & Abdominal Exam: Normal Bowel Sounds, Soft - Exam Additional comments: ruiz cath in place with hematuria noted - Extremities Exam Extremities exam: Positive for: full ROM - Back Exam Back exam: FULL ROM - Neurological Exam Neurological exam: Alert, CN II-XII Intact, Oriented x3 - Psychiatric Exam Psychiatric exam: Flat Affect, Normal Affect, Normal Mood Results - Vital Signs Recent Vital Signs: Last Vital Signs Temp 96.7 F L 06/20/16 16:00 Pulse 76 06/20/16 16:00 Resp 15 06/20/16 16:00 BP 140/87 06/20/16 16:00 Pulse Ox 100 06/20/16 16:00 - Labs Result Diagrams: 06/20/16 07:13 06/20/16 07:13 Labs: Laboratory Results - last 24 hr 06/19/16 06/20/16 06/20/16 21:29 06:36 07:13 WBC 16.0 H RBC 3.81 L Hgb 10.7 L Hct 33.3 L MCV 87.5 MCH 28.2 MCHC 32.2 L RDW 16.9 H Plt Count 174 MPV 9.8 Neut % (Auto) 53.5 Lymph % (Auto) 21.7 [place] % (Auto) 16.3 H Eos % (Auto) 7.1 H Baso % (Auto) 1.4 Neut # 8.6 H Lymph # 3.5 [place] # 2.6 H Eos # 1.1 H Baso # 0.2 Neutrophils % (Manual) 49 L Band Neutrophils % 9 H Lymphocytes % (Manual) 25 Reactive Lymphs % 1 H Monocytes % (Manual) 5 Eosinophils % (Manual) 9 H Basophils % (Manual) 1 Metamyelocytes % 1 H Platelet Estimate Normal Large Platelets Present Poikilocytosis (manual Slight Basophilic Stippling Slight Anisocytosis (manual) Slight Sodium 135 Potassium 4.6 Chloride 98 Carbon Dioxide 29 Anion Gap 13 BUN 26 H Creatinine 1.3 Est GFR ( Amer) > 60 Est GFR (Non-Af Amer) 59 POC Glucose (mg/dL) 229 H 131 H Random Glucose 117 H Calcium 7.4 L Phosphorus 3.5 Magnesium 1.5 L Total Bilirubin 0.4 AST 30 ALT 37 Alkaline Phosphatase 151 H Total Protein 4.7 L Albumin 2.1 L Globulin 2.6 Albumin/Globulin Ratio 0.8 L Blood Type Antibody Screen 06/20/16 06/20/16 06/20/16 07:28 11:29 16:14 WBC RBC Hgb Hct MCV MCH MCHC RDW Plt Count MPV Neut % (Auto) Lymph % (Auto) [place] % (Auto) Eos % (Auto) Baso % (Auto) Neut # Lymph # [place] # Eos # Baso # Neutrophils % (Manual) Band Neutrophils % Lymphocytes % (Manual) Reactive Lymphs % Monocytes % (Manual) Eosinophils % (Manual) Basophils % (Manual) Metamyelocytes % Platelet Estimate Large Platelets Poikilocytosis (manual Basophilic Stippling Anisocytosis (manual) Sodium Potassium Chloride Carbon Dioxide Anion Gap BUN Creatinine Est GFR ( Amer) Est GFR (Non-Af Amer) POC Glucose (mg/dL) 82 85 Random Glucose Calcium Phosphorus Magnesium Total Bilirubin AST ALT Alkaline Phosphatase Total Protein Albumin Globulin Albumin/Globulin Ratio Blood Type A POSITIVE Antibody Screen Negative Assessment & Plan - Assessment and Plan (Free Text) Assessment: 45 year old male with extensive PMHx presents s/p partial thrombolysis with IVC filter placment for longstanding DVT. Plan: Neuro: awake, alert and oriented x3 Cardio: Hypertensive hx Currently stable. Will add on agents as needed Pulm: CTA b/l Pt encouraged to sit up in bed May require BiPAP at night- Pt known from earlier ICU course COPD hx Duonebs GI: Heart Healthy diet Nephro/: Renal insufficiency Continue diuretic therapy. Will require gideon-inhib. Monitor post-op Cont to monitor renal function replete electrolytes as needed ID: Multiple abscesses Abx on board Linezolid ID following ( Dr. Marsh) MSK: Cont to monitor LE management per surgery Prophylaxis: Eliquis resume 4/4 Pepcid daily ( renally dosed)
--- NOTE | 2016-06-20 22:08 | CP.PCM.PN ---
Subjective - Date & Time of Evaluation Date of Evaluation: 06/20/16 Time of Evaluation: 19:00 - Subjective Subjective: s/p thrombolysis and IVC filter placement Objective - Vital Signs/Intake and Output Vital Signs (last 24 hours): Temp Pulse Resp BP Pulse Ox 97 F L 98 H 20 141/85 96 06/20/16 19:00 06/20/16 20:00 06/20/16 20:00 06/20/16 20:00 06/20/16 20:00 Intake and Output: 06/20/16 06/21/16 18:59 06:59 Intake Total 125 250 Output Total 780 440 Balance -655 -190 - Medications Medications: Current Medications Albuterol/Ipratropium (Duoneb 3 Mg/0.5 Mg (3 Ml) Ud) 3 ml INH RQ6 PRN PRN Reason: Wheezing Last Admin: 06/15/16 13:18 Dose: 3 ml Apixaban (Eliquis) 5 mg PO BID [facility] Last Admin: 06/20/16 18:26 Dose: Not Given Aspirin (Aspirin Chewable) 81 mg PO DAILY [facility] Last Admin: 06/20/16 10:59 Dose: Not Given Bacitracin (Bacitracin) 1 ea TOP BID [facility] Last Admin: 06/20/16 18:15 Dose: 1 ea Famotidine (Pepcid) 20 mg PO DAILY [facility] Last Admin: 06/20/16 10:59 Dose: Not Given Furosemide (Lasix) 40 mg PO DAILY [facility] Last Admin: 06/20/16 11:12 Dose: 40 mg Linezolid (Zyvox 600mg/300ml D5w) 300 mls @ 200 mls/hr IVPB Q12H [facility] Last Admin: 06/20/16 18:26 Dose: 200 mls/hr Dextrose/Sodium Chloride (Dextrose 5%/0.45% Ns 1000 Ml) 1,000 mls @ 125 mls/hr IV .Q8H [facility] Last Admin: 06/20/16 16:05 Dose: 125 mls/hr Insulin Detemir (Levemir) 20 unit SC Q12H [facility] Last Admin: 06/20/16 10:59 Dose: Not Given Insulin Human Regular (Novolin R) 0 unit SC ACHS [facility] PRN Reason: Protocol Last Admin: 06/20/16 16:26 Dose: Not Given Magnesium Oxide (Mag-Ox) 400 mg PO BID [facility] Last Admin: 06/20/16 18:14 Dose: 400 mg Oxycodone/Acetaminophen (Percocet 5/325 Mg Tab) 2 tab PO Q4H PRN PRN Reason: Pain, severe (8-10) Stop: 06/22/16 09:10 Last Admin: 06/20/16 03:28 Dose: 2 tab Potassium Chloride (K-Dur 20 Meq Er Tab) 20 meq PO DAILY [facility] Last Admin: 06/20/16 11:09 Dose: 20 meq Saccharomyces Boulardii (Florastor) 250 mg PO BID [facility] Last Admin: 06/20/16 18:14 Dose: 250 mg - Labs Labs: 06/20/16 07:13 06/20/16 07:13 PT 14.2 SECONDS (9.7-12.2) H 06/19/16 09:51 INR 1.3 06/19/16 09:51 APTT 63 SECONDS (21-34) H 06/19/16 09:51 - Head Exam Head Exam: ATRAUMATIC - Eye Exam Eye Exam: Normal appearance - ENT Exam ENT Exam: Mucous Membranes Dry - Respiratory Exam Respiratory Exam: NORMAL BREATHING PATTERN - Cardiovascular Exam Cardiovascular Exam: +S1, +S2 - GI/Abdominal Exam GI & Abdominal Exam: Normal Bowel Sounds - Extremities Exam Extremities Exam: Pedal Edema Assessment and Plan (1) Deep venous thrombosis of lower extremity Assessment & Plan: s/p thrombolysis and IVC filter placement on Eliquis Status: Acute (2) Leukocytosis Assessment & Plan: on antibiotics Status: Acute (3) Coagulopathy Assessment & Plan: anticoagulation Status: Acute
--- NOTE | 2016-06-20 23:59 | PN ---
DATE: 06/20/2016 SUBJECTIVE: The patient was seen today. He was drowsy postop and he was admitted to the ICU again. The patient is admitted after a partial thrombolysis of the clot of right iliac vein and with inferi or vena cava filter placement and he was drowsy when I saw him in the ICU. PHYSICAL EXAMINATION: VITAL SIGNS: Stable. Temperature was 97, heart rate was 99-100, blood pressure 153/93. He was drow sy. NECK: Supple. LUNGS: Clear. No crackles or rales present. Decreased breath sounds. HEART: S1, S2 regular. ABDOMEN: Soft, nontender. EXTREMITIES: Remain with edema and swelling. LABORATORY DATA: Labs are noted. Labs show white count is 16 today, hemoglobin 10.7, hematocrit 33, platelet count is 174. His BUN is 26, creatinine 1.3. MEDICATIONS: He is on DuoNeb, Eliquis, aspirin, bacitracin, dextrose, Pepcid, Lasix, Levemir and he is also on Zyvox at this time. He had, actually, a urine culture which was positive on 06/11 for VRE and he has been on Zyvox since that result was obtained. So, this one, he is getting from , 1st , 2nd, 3rd, so today was the fourth day. We will continue another day or so until the white count co mes down and will follow. IMPRESSION: He is status post thrombolysis of the clot. 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 Will follow. Joshua Marsh MD cc: [id number] TT: 06/20/2016 23:58:35 Confirmation # [id number] Dictation # [id number] mn
[2016-06-21] MEDS: Oxycodone/Acetaminophen 5/325 mg Tab PO PRN (00:25)
[2016-06-21] MEDS: Dextrose 5%/0.45% NS 1,000 ML IV SCH ×2 (00:50→07:45)
[2016-06-21] MEDS: Linezolid 600 mg in D5W 300 ml 300 ML IVPB SCH ×2 (05:32→17:29)
[2016-06-21] MEDS: (Novolin R) Insulin Human Regular 100 units/ml vial SC SCH ×4 (08:25→21:56)
--- NOTE | 2016-06-21 08:34 | VAS ---
DATE: 06/20/2016 PREOPERATIVE DIAGNOSIS: Iliofemoral thrombosis, right iliac vein. PROCEDURES CARRIED OUT: 1. Placement of Bard Codington removable filter via left femoral vein with C-arm fluoroscopy, ultrasoun d-guided puncture and venacavogram. 2. Mechanical thrombolysis via right popliteal artery with the AngioJet device and then balloon nola oplasty of the common and external iliac veins on the patient's right side. The patient is a middle-aged man who presents with extensive iliofemoral thrombosis on the right side . For a variety of reasons, particularly related to his renal function, respiratory insufficiency an d a variety of other problems, we deferred thrombolytic therapy on his right leg. He was anticoagula anthony. He did not have a pulmonary embolism. He subsequently improved, but he was in the ICU on a dorian tilator for some time and had a very cathy course in the hospital. After his improvement, we then re commended that he undergo an attempt at thrombolytic therapy mindful of the fact that this many weeks out from the original event, it may be quite hard to remove the clot. OPERATIVE FINDINGS: 1. The filter was inserted uneventfully via left femoral vein and there was a slight pronounced tip to the patient's right side. 2. The thrombolysis was incomplete despite using the AngioJet device and going in 2 or 3 times to tr y to suction more clot out and despite the use of a 12 mm balloon for an angioplasty. There still ap peared to be some residual thrombosis or a residual narrowing in the common iliac vein on the right s jann. PROCEDURE: After the filter has been placed, with the patient in supine position, the patient was [facility]. Using ultrasound guidance, the popliteal vein was accessed. A catheter and a venacav ogram was taken showing brisk flow up to the level above the right groin in the region of the common iliac veins. The area was treated with tPA. Using the thrombolytic technique of the AngioJet Zelant e device. This went reasonably well. We then went through again, but at this point, it did not appe ar that much of the residual clot was able to be removed. We ballooned this with a 12 mm balloon for the common and the external, again with not much improvement. We went through again with the milan e in an attempt to remove any residual clot and while there was some improvement, there was not the t ype of improvement that we expected to see. We then stopped the procedure after having used all the tPA and the fluid associated with this and the completion picture certainly shows improvement over th e initial, but it was not a complete thrombolysis of this area. machine was not going to be av ailable for use. We then removed the catheter from the leg and behind the knee and applied a alexi sive dressing and BREANA bandage . PROCEDURES CARRIED OUT: 1. Placement of Bard Codington removable filter via left femoral vein with C-arm fluoroscopy, ultrasoun d-guided puncture and micropuncture technique. 2. Right leg mechanical thrombolysis using AngioJet Zelante device. Balloon angioplasty of common a nd external iliac veins. Kristian Ortega Jr., MD cc: [phone] TT: 06/20/2016 16:02:22 Confirmation # [id number] Dictation # [id number] en 06/21/2016 07:33:41
[2016-06-21 08:53] LABS: LYMPH # 2.9 K/uL (1.0-4.3); MEAN PLATELET VOLUME 9.2 fL (7.2-11.7)
[2016-06-21 08:58] LABS: CHLORIDE 98 mmol/L (98-107)
[2016-06-21 08:59] LABS: POTASSIUM 4.2 mmol/L (3.6-5.2); SODIUM 134 mmol/L (132-148)
[2016-06-21 09:01] LABS: ALB/GLOB RATIO 0.9 (1.0-2.1); AST/SGOT 64 U/L (17-59); BILIRUBIN,TOTAL 1.1 mg/dL (0.2-1.3); BLOOD UREA NITROGEN 18 mg/dL (9-20); CARBON DIOXIDE 29 mmol/L (22-30); GFR AFRICAN-AMERICAN > 60
[2016-06-21 09:02] LABS: ALKALINE PHOSPHATASE 183 U/L (38-126); ALT/SGPT 35 U/L (21-72); CALCIUM 7.6 mg/dl (8.6-10.4); GLUCOSE,RANDOM 182 mg/dL (75-110); MAGNESIUM 1.5 mg/dL (1.6-2.3); PHOSPHOROUS 4.3 mg/dL (2.5-4.5)
[2016-06-21 09:04] LABS: BASO # 0.1 K/uL (0.0-0.2); EOS # 0.8 K/uL (0.0-0.7); EOS % 5.5 % (0.0-4.0); HEMATOCRIT 36.1 % (35.0-51.0); MEAN CELL VOLUME 87.8 fL (80.0-94.0); MEAN CORPUSCULAR HEMOGLOBIN 27.9 pg (27.0-31.0); MEAN CORPUSCULAR HGB CONC 31.8 g/dL (33.0-37.0); MONO # 2.5 K/uL (0.0-0.8); NRBC % 0.2 % (0.0-2.0); RED CELL DISTRIBUTION WIDTH 17.4 % (11.5-14.5); WHITE BLOOD COUNT 14.6 K/uL (4.8-10.8)
[2016-06-21] MEDS: Potassium Chloride 20 mEq ER Tab PO SCH (10:17)
[2016-06-21] MEDS: Saccharomyces Boulardi 250 mg Cap PO SCH ×2 (10:18→17:28)
[2016-06-21] MEDS: Magnesium Oxide 400 mg Tab UD PO SCH ×2 (10:18→17:28)
[2016-06-21] MEDS: Insulin Detemir 100 units/ml Vial (Levemir) SC SCH ×2 (10:19→23:32)
[2016-06-21] MEDS: Bacitracin 500 Units/gm Oint Foilpak UD TOP SCH ×2 (10:22→17:28)
--- NOTE | 2016-06-21 11:53 | CP.PCM.PN ---
Subjective - Date & Time of Evaluation Date of Evaluation: 06/21/16 Time of Evaluation: 06:45 - Subjective Subjective: Vascular Surgery Dr. Ortega Pt S&E @bedside. NAEO. no complaints. denies leg pain, N/V, F/C. tolerating diet. Objective - Vital Signs/Intake and Output Vital Signs (last 24 hours): Temp Pulse Resp BP Pulse Ox 97.7 F 88 15 139/74 100 06/21/16 07:00 06/21/16 11:00 06/21/16 11:00 06/21/16 10:18 06/21/16 09:00 Intake and Output: 06/21/16 06/21/16 06:59 18:59 Intake Total 1800 1070 Output Total 2390 350 Balance -590 720 - Medications Medications: Current Medications Albuterol/Ipratropium (Duoneb 3 Mg/0.5 Mg (3 Ml) Ud) 3 ml INH RQ6 PRN PRN Reason: Wheezing Last Admin: 06/15/16 13:18 Dose: 3 ml Apixaban (Eliquis) 5 mg PO BID [facility] Last Admin: 06/21/16 10:18 Dose: 5 mg Aspirin (Aspirin Chewable) 81 mg PO DAILY [facility] Last Admin: 06/21/16 10:18 Dose: 81 mg Bacitracin (Bacitracin) 1 ea TOP BID [facility] Last Admin: 06/21/16 10:22 Dose: 1 ea Famotidine (Pepcid) 20 mg PO DAILY [facility] Last Admin: 06/21/16 10:17 Dose: 20 mg Furosemide (Lasix) 40 mg PO DAILY [facility] Last Admin: 06/21/16 10:18 Dose: 40 mg Linezolid (Zyvox 600mg/300ml D5w) 300 mls @ 200 mls/hr IVPB Q12H [facility] Last Admin: 06/21/16 05:32 Dose: 200 mls/hr Dextrose/Sodium Chloride (Dextrose 5%/0.45% Ns 1000 Ml) 1,000 mls @ 125 mls/hr IV .Q8H [facility] Last Admin: 06/21/16 07:45 Dose: Not Given Insulin Detemir (Levemir) 20 unit SC Q12H [facility] Last Admin: 06/21/16 10:19 Dose: 20 unit Insulin Human Regular (Novolin R) 0 unit SC ACHS [facility] PRN Reason: Protocol Last Admin: 06/21/16 11:36 Dose: 6 unit Magnesium Oxide (Mag-Ox) 400 mg PO BID [facility] Last Admin: 06/21/16 10:18 Dose: 400 mg Oxycodone/Acetaminophen (Percocet 5/325 Mg Tab) 2 tab PO Q4H PRN PRN Reason: Pain, severe (8-10) Stop: 06/22/16 09:10 Last Admin: 06/21/16 00:25 Dose: 2 tab Potassium Chloride (K-Dur 20 Meq Er Tab) 20 meq PO DAILY [facility] Last Admin: 06/21/16 10:17 Dose: 20 meq Saccharomyces Boulardii (Florastor) 250 mg PO BID [facility] Last Admin: 06/21/16 10:18 Dose: 250 mg - Labs Labs: 06/21/16 08:47 06/21/16 08:47 PT 14.2 SECONDS (9.7-12.2) H 06/19/16 09:51 INR 1.3 06/19/16 09:51 APTT 63 SECONDS (21-34) H 06/19/16 09:51 - Constitutional Appears: Non-toxic, No Acute Distress - Head Exam Head Exam: NORMAL INSPECTION - Eye Exam Eye Exam: Normal appearance - ENT Exam ENT Exam: Mucous Membranes Moist - Respiratory Exam Respiratory Exam: NORMAL BREATHING PATTERN. absent: Accessory Muscle Use, Respiratory Distress - Cardiovascular Exam Cardiovascular Exam: REGULAR RHYTHM. absent: Bradycardia, Tachycardia - GI/Abdominal Exam GI & Abdominal Exam: Normal Bowel Sounds. absent: Distended, Soft - Extremities Exam Additional comments: R leg wrapped - dressing c/d/i PP dopplerable B/L - Neurological Exam Neurological Exam: Alert, Awake, Oriented x3 - Psychiatric Exam Psychiatric exam: Normal Affect, Normal Mood - Skin Skin Exam: Dry, Intact, Normal Color, Warm Assessment and Plan - Assessment and Plan (Free Text) Assessment: 45 y/o M POD#1 s/p ileofemoral thrombosis right iliac vein - keep dressing in place; reenforce as necessary - pain management - cleared for transfer out of ICU - cont medical management
--- NOTE | 2016-06-21 13:34 | CP.PCM.PN ---
Subjective - Date & Time of Evaluation Date of Evaluation: 06/21/16 Time of Evaluation: 12:00 - Subjective Subjective: Patient is POD#1 s/p of IVC Filter and ileofemoral thrombosis right iliac vein. He was awake, alert, cooperative, answering questions. He reported he did have pain, however it was controlled. Currently the creatine is 1.1 and the urine out put is 3,200 ml yesterday, he does have a history of CKD and required temprary HD so we need to follow his renal function. Objective - Vital Signs/Intake and Output Vital Signs (last 24 hours): Temp Pulse Resp BP Pulse Ox 98.0 F 92 H 15 139/74 100 06/21/16 12:00 06/21/16 12:00 06/21/16 11:00 06/21/16 10:18 06/21/16 09:00 Intake and Output: 06/21/16 06/21/16 06:59 18:59 Intake Total 1800 1445 Output Total 2390 450 Balance -590 995 - Medications Medications: Current Medications Albuterol/Ipratropium (Duoneb 3 Mg/0.5 Mg (3 Ml) Ud) 3 ml INH RQ6 PRN PRN Reason: Wheezing Last Admin: 06/15/16 13:18 Dose: 3 ml Apixaban (Eliquis) 5 mg PO BID [facility] Last Admin: 06/21/16 10:18 Dose: 5 mg Aspirin (Aspirin Chewable) 81 mg PO DAILY [facility] Last Admin: 06/21/16 10:18 Dose: 81 mg Bacitracin (Bacitracin) 1 ea TOP BID [facility] Last Admin: 06/21/16 10:22 Dose: 1 ea Famotidine (Pepcid) 20 mg PO DAILY [facility] Last Admin: 06/21/16 10:17 Dose: 20 mg Furosemide (Lasix) 40 mg PO DAILY [facility] Last Admin: 06/21/16 10:18 Dose: 40 mg Linezolid (Zyvox 600mg/300ml D5w) 300 mls @ 200 mls/hr IVPB Q12H [facility] Last Admin: 06/21/16 05:32 Dose: 200 mls/hr Dextrose/Sodium Chloride (Dextrose 5%/0.45% Ns 1000 Ml) 1,000 mls @ 125 mls/hr IV .Q8H [facility] Last Admin: 06/21/16 07:45 Dose: Not Given Insulin Detemir (Levemir) 20 unit SC Q12H [facility] Last Admin: 06/21/16 10:19 Dose: 20 unit Insulin Human Regular (Novolin R) 0 unit SC ACHS [facility] PRN Reason: Protocol Last Admin: 06/21/16 11:36 Dose: 6 unit Magnesium Oxide (Mag-Ox) 400 mg PO BID [facility] Last Admin: 06/21/16 10:18 Dose: 400 mg Oxycodone/Acetaminophen (Percocet 5/325 Mg Tab) 2 tab PO Q4H PRN PRN Reason: Pain, severe (8-10) Stop: 06/22/16 09:10 Last Admin: 06/21/16 00:25 Dose: 2 tab Potassium Chloride (K-Dur 20 Meq Er Tab) 20 meq PO DAILY [facility] Last Admin: 06/21/16 10:17 Dose: 20 meq Saccharomyces Boulardii (Florastor) 250 mg PO BID [facility] Last Admin: 06/21/16 10:18 Dose: 250 mg - Labs Labs: 06/21/16 08:47 06/21/16 08:47 PT 14.2 SECONDS (9.7-12.2) H 06/19/16 09:51 INR 1.3 06/19/16 09:51 APTT 63 SECONDS (21-34) H 06/19/16 09:51 - Constitutional Appears: No Acute Distress - Head Exam Head Exam: NORMAL INSPECTION - Eye Exam Eye Exam: Normal appearance - ENT Exam ENT Exam: Mucous Membranes Moist - Respiratory Exam Respiratory Exam: Clear to Ausculation Bilateral, NORMAL BREATHING PATTERN - Cardiovascular Exam Cardiovascular Exam: REGULAR RHYTHM - GI/Abdominal Exam GI & Abdominal Exam: Soft, Normal Bowel Sounds - Neurological Exam Neurological Exam: Alert, Awake, Oriented x3 Neuro motor strength exam: Left Upper Extremity: 5, Right Upper Extremity: 5 - Psychiatric Exam Psychiatric exam: Normal Affect, Normal Mood - Skin Skin Exam: Normal Color, Warm Assessment and Plan - Assessment and Plan (Free Text) Assessment: (1) Deep vein thrombo of right leg 06/21: Patient is POD 1 of thrombolysis as well as placement of IVC filter. Continue on anticoagulation. 06/20: Patient went to OR today with Dr. Ortega to correct ileofemoral thrombosis right iliac vein. Operative findings included partial lysis of clot in right iliac and ivcf placed via left groin. Patient in ICU s/p procedure for overnight monitoring. -Continue Eliquis 5mg bid Patient was seen by Dr. Ortega, initally said he want thrombolysis therapy but has changed his mind and wants to think over the risk and benefits of the therapy. Dr. Caba and Dr. Ortega was informed of patient's decision. (2) Renal insufficiency Status: Chronic 06/21: Urine output was 3200 yesterday and the creatine is 1.1 this morning. Will need to continue to monitor as he does have history of needing HD Nephrology consulted, Dr. Rhoades -Continue diuretic -Eventually will need BREANA I- can start post thrombolysis if no acute events (2) Multiple abscess formation Status: Acute -IV Zyvox since 06/17 -Florastor Dr. Marsh is consulted, f/u recs. (3) Leg edema, right Status: Acute Changed his pain medication to Percocet 5/325 2 tablets. Morphine and Tyelnol were dc (4) COPD (chronic obstructive pulmonary disease) Status: Chronic Duoneb 3ml prn q6h (5) Diabetes Status: Chronic accu checks and sliding scale (6) HTN (hypertension) Status: Chronic Aspirin 81mg Lasix 40mg daily (8) Prophylactic measure Status: Acute Pepcid 20mg Fully anticoaguated with Eiquis Mag Ox 400mg bid SCDs contraindicated due to DVT
--- NOTE | 2016-06-21 15:27 | CP.PCM.PN ---
Subjective - Date & Time of Evaluation Date of Evaluation: 06/21/16 Time of Evaluation: 15:24 - Subjective Subjective: seen and examined, in icu for observation post procedure s/p thrombolysis, ivc filter placement c/o pain in rt leg good uop Objective - Vital Signs/Intake and Output Vital Signs (last 24 hours): Temp Pulse Resp BP Pulse Ox 98.0 F 92 H 15 139/74 100 06/21/16 12:00 06/21/16 12:00 06/21/16 11:00 06/21/16 10:18 06/21/16 09:00 Intake and Output: 06/21/16 06/21/16 06:59 18:59 Intake Total 1800 1445 Output Total 2390 450 Balance -590 995 - Medications Medications: Current Medications Albuterol/Ipratropium (Duoneb 3 Mg/0.5 Mg (3 Ml) Ud) 3 ml INH RQ6 PRN PRN Reason: Wheezing Last Admin: 06/15/16 13:18 Dose: 3 ml Apixaban (Eliquis) 5 mg PO BID [facility] Last Admin: 06/21/16 10:18 Dose: 5 mg Aspirin (Aspirin Chewable) 81 mg PO DAILY [facility] Last Admin: 06/21/16 10:18 Dose: 81 mg Bacitracin (Bacitracin) 1 ea TOP BID [facility] Last Admin: 06/21/16 10:22 Dose: 1 ea Famotidine (Pepcid) 20 mg PO DAILY [facility] Last Admin: 06/21/16 10:17 Dose: 20 mg Furosemide (Lasix) 40 mg PO DAILY [facility] Last Admin: 06/21/16 10:18 Dose: 40 mg Linezolid (Zyvox 600mg/300ml D5w) 300 mls @ 200 mls/hr IVPB Q12H [facility] Last Admin: 06/21/16 05:32 Dose: 200 mls/hr Insulin Detemir (Levemir) 20 unit SC Q12H [facility] Last Admin: 06/21/16 10:19 Dose: 20 unit Insulin Human Regular (Novolin R) 0 unit SC ACHS [facility] PRN Reason: Protocol Last Admin: 06/21/16 11:36 Dose: 6 unit Magnesium Oxide (Mag-Ox) 400 mg PO BID [facility] Last Admin: 06/21/16 10:18 Dose: 400 mg Oxycodone/Acetaminophen (Percocet 5/325 Mg Tab) 2 tab PO Q4H PRN PRN Reason: Pain, severe (8-10) Stop: 06/22/16 09:10 Last Admin: 06/21/16 00:25 Dose: 2 tab Potassium Chloride (K-Dur 20 Meq Er Tab) 20 meq PO DAILY [facility] Last Admin: 06/21/16 10:17 Dose: 20 meq Saccharomyces Boulardii (Florastor) 250 mg PO BID [facility] Last Admin: 06/21/16 10:18 Dose: 250 mg - Labs Labs: 06/21/16 08:47 06/21/16 08:47 PT 14.2 SECONDS (9.7-12.2) H 06/19/16 09:51 INR 1.3 06/19/16 09:51 APTT 63 SECONDS (21-34) H 06/19/16 09:51 - Constitutional Appears: Non-toxic, No Acute Distress, Chronically Ill - Head Exam Head Exam: NORMAL INSPECTION - Eye Exam Eye Exam: Normal appearance - ENT Exam ENT Exam: Mucous Membranes Moist, Normal Exam - Neck Exam Neck Exam: Normal Inspection - Respiratory Exam Respiratory Exam: Decreased Breath Sounds, NORMAL BREATHING PATTERN - Cardiovascular Exam Cardiovascular Exam: REGULAR RHYTHM - GI/Abdominal Exam GI & Abdominal Exam: Distended, Soft, Hypoactive Bowel Sounds - Extremities Exam Extremities Exam: Pedal Edema, Tenderness Additional comments: rle erythema tenderness - Neurological Exam Neurological Exam: Alert, Awake, Oriented x3 - Psychiatric Exam Psychiatric exam: Normal Affect Assessment and Plan (1) Cellulitis Status: Acute (2) Deep venous thrombosis of lower extremity Status: Acute (3) Sepsis Status: Acute (4) Diabetic nephropathy Status: Acute (5) Diabetes Status: Chronic (6) HTN (hypertension) Status: Chronic (7) Renal insufficiency Status: Chronic - Assessment and Plan (Free Text) Assessment: stable renal function nephrotic syndrome- start losartan.
--- NOTE | 2016-06-21 22:11 | CP.PCM.PN ---
Subjective - Date & Time of Evaluation Date of Evaluation: 06/21/16 Time of Evaluation: 03:00 - Subjective Subjective: dictated Objective - Vital Signs/Intake and Output Vital Signs (last 24 hours): Temp Pulse Resp BP Pulse Ox 97 F L 118 H 15 130/69 100 06/21/16 16:00 06/21/16 16:00 06/21/16 16:00 06/21/16 16:00 06/21/16 09:00 Intake and Output: 06/21/16 06/22/16 18:59 06:59 Intake Total 1930 240 Output Total 1350 Balance 580 240 - Medications Medications: Current Medications Albuterol/Ipratropium (Duoneb 3 Mg/0.5 Mg (3 Ml) Ud) 3 ml INH RQ6 PRN PRN Reason: Wheezing Last Admin: 06/15/16 13:18 Dose: 3 ml Apixaban (Eliquis) 5 mg PO BID [facility] Last Admin: 06/21/16 17:28 Dose: 5 mg Aspirin (Aspirin Chewable) 81 mg PO DAILY [facility] Last Admin: 06/21/16 10:18 Dose: 81 mg Bacitracin (Bacitracin) 1 ea TOP BID [facility] Last Admin: 06/21/16 17:28 Dose: 1 ea Famotidine (Pepcid) 20 mg PO DAILY [facility] Last Admin: 06/21/16 10:17 Dose: 20 mg Furosemide (Lasix) 40 mg PO DAILY [facility] Last Admin: 06/21/16 10:18 Dose: 40 mg Linezolid (Zyvox 600mg/300ml D5w) 300 mls @ 200 mls/hr IVPB Q12H [facility] Last Admin: 06/21/16 17:29 Dose: 200 mls/hr Insulin Detemir (Levemir) 20 unit SC Q12H [facility] Last Admin: 06/21/16 10:19 Dose: 20 unit Insulin Human Regular (Novolin R) 0 unit SC ACHS [facility] PRN Reason: Protocol Last Admin: 06/21/16 21:56 Dose: Not Given Losartan Potassium (Cozaar) 25 mg PO DAILY [facility] Last Admin: 06/21/16 16:10 Dose: 25 mg Magnesium Oxide (Mag-Ox) 400 mg PO BID [facility] Last Admin: 06/21/16 17:28 Dose: 400 mg Oxycodone/Acetaminophen (Percocet 5/325 Mg Tab) 2 tab PO Q4H PRN PRN Reason: Pain, severe (8-10) Stop: 06/22/16 09:10 Last Admin: 06/21/16 00:25 Dose: 2 tab Saccharomyces Boulardii (Florastor) 250 mg PO BID [facility] Last Admin: 06/21/16 17:28 Dose: 250 mg - Labs Labs: 06/21/16 08:47 06/21/16 08:47 PT 14.2 SECONDS (9.7-12.2) H 06/19/16 09:51 INR 1.3 06/19/16 09:51 APTT 63 SECONDS (21-34) H 06/19/16 09:51
--- NOTE | 2016-06-21 22:32 | CP.PCM.PN ---
Subjective - Date & Time of Evaluation Date of Evaluation: 06/21/16 Time of Evaluation: 16:00 - Subjective Subjective: Has right leg pain Objective - Vital Signs/Intake and Output Vital Signs (last 24 hours): Temp Pulse Resp BP Pulse Ox 97 F L 117 H 16 121/70 100 06/21/16 20:00 06/21/16 20:00 06/21/16 20:00 06/21/16 20:00 06/21/16 09:00 Intake and Output: 06/21/16 06/22/16 18:59 06:59 Intake Total 1930 240 Output Total 1350 Balance 580 240 - Medications Medications: Current Medications Albuterol/Ipratropium (Duoneb 3 Mg/0.5 Mg (3 Ml) Ud) 3 ml INH RQ6 PRN PRN Reason: Wheezing Last Admin: 06/15/16 13:18 Dose: 3 ml Apixaban (Eliquis) 5 mg PO BID [facility] Last Admin: 06/21/16 17:28 Dose: 5 mg Aspirin (Aspirin Chewable) 81 mg PO DAILY [facility] Last Admin: 06/21/16 10:18 Dose: 81 mg Bacitracin (Bacitracin) 1 ea TOP BID [facility] Last Admin: 06/21/16 17:28 Dose: 1 ea Famotidine (Pepcid) 20 mg PO DAILY [facility] Last Admin: 06/21/16 10:17 Dose: 20 mg Furosemide (Lasix) 40 mg PO DAILY [facility] Last Admin: 06/21/16 10:18 Dose: 40 mg Linezolid (Zyvox 600mg/300ml D5w) 300 mls @ 200 mls/hr IVPB Q12H [facility] Last Admin: 06/21/16 17:29 Dose: 200 mls/hr Insulin Detemir (Levemir) 20 unit SC Q12H [facility] Last Admin: 06/21/16 10:19 Dose: 20 unit Insulin Human Regular (Novolin R) 0 unit SC ACHS [facility] PRN Reason: Protocol Last Admin: 06/21/16 21:56 Dose: Not Given Losartan Potassium (Cozaar) 25 mg PO DAILY [facility] Last Admin: 06/21/16 16:10 Dose: 25 mg Magnesium Oxide (Mag-Ox) 400 mg PO BID [facility] Last Admin: 06/21/16 17:28 Dose: 400 mg Oxycodone/Acetaminophen (Percocet 5/325 Mg Tab) 2 tab PO Q4H PRN PRN Reason: Pain, severe (8-10) Stop: 06/22/16 09:10 Last Admin: 06/21/16 00:25 Dose: 2 tab Saccharomyces Boulardii (Florastor) 250 mg PO BID [facility] Last Admin: 06/21/16 17:28 Dose: 250 mg - Labs Labs: 06/21/16 08:47 06/21/16 08:47 PT 14.2 SECONDS (9.7-12.2) H 06/19/16 09:51 INR 1.3 06/19/16 09:51 APTT 63 SECONDS (21-34) H 06/19/16 09:51 - Head Exam Head Exam: ATRAUMATIC - Eye Exam Eye Exam: Normal appearance - ENT Exam ENT Exam: Mucous Membranes Dry - Respiratory Exam Respiratory Exam: NORMAL BREATHING PATTERN - Cardiovascular Exam Cardiovascular Exam: +S1, +S2 - GI/Abdominal Exam GI & Abdominal Exam: Normal Bowel Sounds - Extremities Exam Extremities Exam: Pedal Edema Assessment and Plan (1) Deep venous thrombosis of lower extremity Assessment & Plan: s/p thrombolysis and IVC filter placement therapeutic anticoagulation Status: Acute (2) Leukocytosis Assessment & Plan: on antibiotics Status: Acute (3) Coagulopathy Assessment & Plan: anticoagulation Status: Acute
--- NOTE | 2016-06-21 22:37 | PN ---
DATE: 06/21/2016 The patient had thrombolysis yesterday, and also had an IVC filter placed. He is still in ICU. He w as sitting up. He did have pain in the right leg status post procedure. T-max is 98, pulse 92, blood pressure 130/69, respirations are 20. He denies any respiratory complaints. He is alert, oriented, and sitting up. HEAD: Atraumatic, normocephalic. NECK: Supple. LUNGS: Clear. Decreased breath sounds bilaterally. HEART: S1, S2 regular. ABDOMEN: Soft, nontender. Right leg has a dressing over it, and I cannot evaluate. Left leg has edema, and the right hand, on the dorsum of the hand has almost friction burn and ulceration which seems to be still healing, and h e has 2 other areas of scab formation on the right forearm, which is probably also secondary to infil tration of some IV in the past. Left leg remains with edema. Right leg is post-procedure. His white count is 14.6 today, hemoglobin 11.5, hematocrit 36.1, platelet count is 118, and BUN is 18 , creatinine is 1.1. So, his platelets are decreased today; will follow. White count is decreasing with Zyvox; needs to be monitored. He is status post VRE in the urine. He has a good output of urine now, and will follow. Zyvox will be helping with the right hand infection and right foot, which had a dressing on a blister before. Will follow. Joshua Marsh MD cc: [id number] TT: 06/21/2016 22:36:32 Confirmation # [id number] Dictation # [id number] rao
[2016-06-22] MEDS: Linezolid 600 mg in D5W 300 ml 300 ML IVPB SCH ×2 (05:35→19:00)
[2016-06-22] MEDS: (Novolin R) Insulin Human Regular 100 units/ml vial SC SCH ×5 (07:30→21:24)
--- NOTE | 2016-06-22 07:31 | CP.PCM.PN ---
<Rick Jernigan - Last Filed: 06/22/16 23:39> Subjective - Date & Time of Evaluation Date of Evaluation: 06/22/16 Time of Evaluation: 07:50 - Subjective Subjective: PGY1 Medicine Note - Dr. Vargas Patient seen and examined at bedside. No acute overnight events. Resting comfortably. Patient is POD#2 s/p of IVC Filter and ileofemoral thrombosis right iliac vein. He reports that he did not sleep at all last night and still feels pain in his Right lower extremity, however controlled. Pt with history of CKD requiring prior HD, so we will follow his renal function. Denies fever, abdominal pain, nausea, vomiting, diarrhea, constipation, dysuria and any other acute complaints. Objective - Vital Signs/Intake and Output Vital Signs (last 24 hours): Temp Pulse Resp BP Pulse Ox 98.2 F 98 H 21 130/79 100 06/22/16 04:00 06/22/16 00:00 06/22/16 04:00 06/22/16 00:00 06/21/16 09:00 Intake and Output: 06/22/16 06/22/16 06:59 18:59 Intake Total 1320 Balance 1320 - Medications Medications: Current Medications Albuterol/Ipratropium (Duoneb 3 Mg/0.5 Mg (3 Ml) Ud) 3 ml INH RQ6 PRN PRN Reason: Wheezing Last Admin: 06/15/16 13:18 Dose: 3 ml Apixaban (Eliquis) 5 mg PO BID [facility] Last Admin: 06/21/16 17:28 Dose: 5 mg Aspirin (Aspirin Chewable) 81 mg PO DAILY [facility] Last Admin: 06/21/16 10:18 Dose: 81 mg Bacitracin (Bacitracin) 1 ea TOP BID [facility] Last Admin: 06/21/16 17:28 Dose: 1 ea Famotidine (Pepcid) 20 mg PO DAILY [facility] Last Admin: 06/21/16 10:17 Dose: 20 mg Furosemide (Lasix) 40 mg PO DAILY [facility] Last Admin: 06/21/16 10:18 Dose: 40 mg Linezolid (Zyvox 600mg/300ml D5w) 300 mls @ 200 mls/hr IVPB Q12H [facility] Last Admin: 06/22/16 05:35 Dose: 200 mls/hr Insulin Detemir (Levemir) 20 unit SC Q12H [facility] Last Admin: 06/21/16 23:32 Dose: 20 unit Insulin Human Regular (Novolin R) 0 unit SC ACHS [facility] PRN Reason: Protocol Last Admin: 06/21/16 21:56 Dose: Not Given Losartan Potassium (Cozaar) 25 mg PO DAILY [facility] Last Admin: 06/21/16 16:10 Dose: 25 mg Magnesium Oxide (Mag-Ox) 400 mg PO BID [facility] Last Admin: 06/21/16 17:28 Dose: 400 mg Oxycodone/Acetaminophen (Percocet 5/325 Mg Tab) 2 tab PO Q4H PRN PRN Reason: Pain, severe (8-10) Stop: 06/22/16 09:10 Last Admin: 06/21/16 00:25 Dose: 2 tab Saccharomyces Boulardii (Florastor) 250 mg PO BID [facility] Last Admin: 06/21/16 17:28 Dose: 250 mg - Labs Labs: 06/21/16 08:47 06/21/16 08:47 PT 14.2 SECONDS (9.7-12.2) H 06/19/16 09:51 INR 1.3 06/19/16 09:51 APTT 63 SECONDS (21-34) H 06/19/16 09:51 - Additional Findings Additional findings: - Constitutional Appears: Well - Head Exam Head Exam: ATRAUMATIC, NORMAL INSPECTION, NORMOCEPHALIC - Eye Exam Eye Exam: EOMI, Normal appearance, PERRL - ENT Exam ENT Exam: Mucous Membranes Moist, Normal Exam - Neck Exam Neck Exam: Full ROM, Normal Inspection. absent: Lymphadenopathy - Respiratory Exam Respiratory Exam: Wheezes, Rhonchi. absent: Respiratory distress - Cardiovascular Exam Cardiovascular Exam: REGULAR RHYTHM, +S1, +S2, Murmur - GI/Abdominal Exam GI & Abdominal Exam: Soft, Normal Bowel Sounds. absent: Tenderness - Rectal Exam Rectal Exam: NORMAL INSPECTION - Extremities Exam Extremities Exam: Pedal Edema Additional comments: RLE WRAP CDI - Back Exam Back Exam: NORMAL INSPECTION - Neurological Exam Neurological Exam: Alert, Awake, CN II-XII Intact, Oriented x3 - Psychiatric Exam Psychiatric exam: Normal Affect, Normal Mood - Skin Skin Exam: Dry, Intact, Normal Color, Warm Assessment and Plan - Assessment and Plan (Free Text) Assessment: Deep vein thrombo of right leg 4/5: Patient is POD 2 of thrombolysis as well as placement of IVC filter. Continue on anticoagulation. 06/20: Patient went to OR today with Dr. Ortega to correct ileofemoral thrombosis right iliac vein. Operative findings included partial lysis of clot in right iliac and ivcf placed via left groin. Patient in ICU s/p procedure for overnight monitoring. -Continue Eliquis 5mg bid Patient was seen by Dr. Ortega, initally said he want thrombolysis therapy but has changed his mind and wants to think over the risk and benefits of the therapy. Dr. Caba and Dr. Ortega was informed of patient's decision. Renal insufficiency Status: Chronic 06/22: Dr. Rhoades Nephro on case. QE=[id number]. Renal function acceptable. On lasix , ARB agent. 06/21: Urine output was 3200 yesterday and the creatine is 1.1 this morning. Will need to continue to monitor as he does have history of needing HD Nephrology consulted, Dr. Rhoades -Continue diuretic -Eventually will need BREANA I- can start post thrombolysis if no acute events Multiple abscess formation Status: Acute 06/22: STOP Zyvox IV (started 06/17) (stop 06/22) -Florastor Dr. Marsh is consulted, f/u recs. Leg edema, right Status: Acute Changed his pain medication to Percocet 5/325 2 tablets. Morphine and Tyelnol were dc COPD (chronic obstructive pulmonary disease) Status: Chronic Duoneb 3ml prn q6h Diabetes Status: Chronic accu checks and sliding scale HTN (hypertension) Status: Chronic Aspirin 81mg Lasix 40mg daily Prophylactic measure Status: Acute Pepcid 20mg Fully anticoaguated with Eiquis Mag Ox 400mg bid SCDs contraindicated due to DVT <Rick Vargas H - Last Filed: 06/23/16 07:36> Objective - Vital Signs/Intake and Output Vital Signs (last 24 hours): Temp Pulse Resp BP Pulse Ox 98.1 F 107 H 18 142/80 96 06/23/16 04:00 06/23/16 04:00 06/23/16 04:00 06/23/16 04:00 06/23/16 04:00 Intake and Output: 06/23/16 06/23/16 06:59 18:59 Intake Total 1000 Output Total 1300 Balance -300 - Medications Medications: Current Medications Albuterol/Ipratropium (Duoneb 3 Mg/0.5 Mg (3 Ml) Ud) 3 ml INH RQ6 PRN PRN Reason: Wheezing Last Admin: 06/15/16 13:18 Dose: 3 ml Apixaban (Eliquis) 5 mg PO BID [facility] Last Admin: 06/22/16 18:30 Dose: 5 mg Aspirin (Aspirin Chewable) 81 mg PO DAILY [facility] Last Admin: 06/22/16 11:05 Dose: 81 mg Bacitracin (Bacitracin) 1 ea TOP BID [facility] Last Admin: 06/22/16 19:48 Dose: 1 ea Famotidine (Pepcid) 20 mg PO DAILY [facility] Last Admin: 06/22/16 11:06 Dose: 20 mg Furosemide (Lasix) 40 mg PO DAILY [facility] Last Admin: 06/22/16 11:02 Dose: 40 mg Guaifenesin (Mucinex La) 600 mg PO BID [facility] Last Admin: 06/22/16 18:00 Dose: 600 mg Insulin Detemir (Levemir) 20 unit SC Q12H [facility] Last Admin: 06/22/16 23:00 Dose: 20 unit Insulin Human Regular (Novolin R) 0 unit SC ACHS [facility] PRN Reason: Protocol Last Admin: 06/22/16 21:24 Dose: Not Given Losartan Potassium (Cozaar) 25 mg PO DAILY [facility] Last Admin: 06/22/16 11:05 Dose: 25 mg Magnesium Oxide (Mag-Ox) 400 mg PO BID [facility] Last Admin: 06/22/16 18:00 Dose: 400 mg Saccharomyces Boulardii (Florastor) 250 mg PO BID [facility] Last Admin: 06/22/16 18:00 Dose: 250 mg - Labs Labs: 06/23/16 06:44 06/23/16 06:44 PT 14.2 SECONDS (9.7-12.2) H 06/19/16 09:51 INR 1.3 06/19/16 09:51 APTT 63 SECONDS (21-34) H 06/19/16 09:51 Attending/Attestation - Attestation I have personally seen and examined this patient.: Yes I have fully participated in the care of the patient.: Yes I have reviewed all pertinent clinical information, including history, physical exam and plan: Yes Notes (Text): Medical Attending: Patient was seen and examined by me. Agree with the above note by the resident. He has relative stable urine output and also the creatine is stable as well. Overnight the IV abx was discontinued by ID, WBC is trending downward. As explained before in previous notes and the above note by the resident. The patient is S/P IVC filter and also thrombolysis of the lower extremity DVT. Currently pending transfer out of ICU, waiting on an available bed - he did have VRE in urine so he does have isolation/contact precautions. thank you, Rick Vargas
[2016-06-22] MEDS: Bacitracin 500 Units/gm Oint Foilpak UD TOP SCH ×2 (10:00→19:48)
[2016-06-22] MEDS: Saccharomyces Boulardi 250 mg Cap PO SCH ×2 (11:02→18:00)
[2016-06-22] MEDS: Magnesium Oxide 400 mg Tab UD PO SCH ×2 (11:04→18:00)
[2016-06-22] MEDS: Insulin Detemir 100 units/ml Vial (Levemir) SC SCH ×2 (11:06→23:00)
[2016-06-22 11:46] LABS: BASO # 0.3 K/uL (0.0-0.2); EOS # 1.1 K/uL (0.0-0.7); EOS % 7.4 % (0.0-4.0); HEMATOCRIT 35.5 % (35.0-51.0); LYMPH # 1.7 K/uL (1.0-4.3); LYMPH % 11.6 % (20.0-40.0); MEAN CELL VOLUME 88.4 fL (80.0-94.0); MEAN CORPUSCULAR HGB CONC 31.6 g/dL (33.0-37.0); MEAN PLATELET VOLUME 8.7 fL (7.2-11.7); MONO # 1.9 K/uL (0.0-0.8); MONO % 12.9 % (0.0-10.0); NRBC % 0.1 % (0.0-2.0); RED CELL DISTRIBUTION WIDTH 17.4 % (11.5-14.5); WHITE BLOOD COUNT 14.7 K/uL (4.8-10.8)
[2016-06-22 11:50] LABS: CHLORIDE 100 mmol/L (98-107); POTASSIUM 4.2 mmol/L (3.6-5.2); SODIUM 134 mmol/L (132-148)
--- NOTE | 2016-06-22 11:51 | CP.PCM.PN ---
Subjective - Date & Time of Evaluation Date of Evaluation: 06/22/16 Time of Evaluation: 13:13 - Subjective Subjective: PT WITH SOME DYSPNEA AND COUGH. ALSO WHEEZING. INSP RHONCHI AND EXP WHEEZE HEARD OVER RIGHT SIDE. LEFT CLEAR. Objective - Vital Signs/Intake and Output Vital Signs (last 24 hours): Temp Pulse Resp BP Pulse Ox 98.2 F 98 H 21 131/81 100 06/22/16 04:00 06/22/16 00:00 06/22/16 04:00 06/22/16 11:02 06/21/16 09:00 Intake and Output: 06/22/16 06/22/16 06:59 18:59 Intake Total 1320 Balance 1320 - Medications Medications: Current Medications Albuterol/Ipratropium (Duoneb 3 Mg/0.5 Mg (3 Ml) Ud) 3 ml INH RQ6 PRN PRN Reason: Wheezing Last Admin: 06/15/16 13:18 Dose: 3 ml Apixaban (Eliquis) 5 mg PO BID [facility] Last Admin: 06/22/16 11:00 Dose: 5 mg Aspirin (Aspirin Chewable) 81 mg PO DAILY [facility] Last Admin: 06/22/16 11:05 Dose: 81 mg Bacitracin (Bacitracin) 1 ea TOP BID [facility] Last Admin: 06/21/16 17:28 Dose: 1 ea Famotidine (Pepcid) 20 mg PO DAILY [facility] Last Admin: 06/22/16 11:06 Dose: 20 mg Furosemide (Lasix) 40 mg PO DAILY [facility] Last Admin: 06/22/16 11:02 Dose: 40 mg Linezolid (Zyvox 600mg/300ml D5w) 300 mls @ 200 mls/hr IVPB Q12H [facility] Last Admin: 06/22/16 05:35 Dose: 200 mls/hr Insulin Detemir (Levemir) 20 unit SC Q12H [facility] Last Admin: 06/22/16 11:06 Dose: 20 unit Insulin Human Regular (Novolin R) 0 unit SC ACHS [facility] PRN Reason: Protocol Last Admin: 06/22/16 07:30 Dose: Not Given Losartan Potassium (Cozaar) 25 mg PO DAILY [facility] Last Admin: 06/22/16 11:05 Dose: 25 mg Magnesium Oxide (Mag-Ox) 400 mg PO BID [facility] Last Admin: 06/22/16 11:04 Dose: 400 mg Saccharomyces Zanderdii (Florastor) 250 mg PO BID [facility] Last Admin: 06/22/16 11:02 Dose: 250 mg - Labs Labs: 06/22/16 11:35 06/22/16 11:35 PT 14.2 SECONDS (9.7-12.2) H 06/19/16 09:51 INR 1.3 06/19/16 09:51 APTT 63 SECONDS (21-34) H 06/19/16 09:51 - Constitutional Appears: Well - Head Exam Head Exam: ATRAUMATIC, NORMAL INSPECTION, NORMOCEPHALIC - Eye Exam Eye Exam: EOMI, Normal appearance, PERRL Pupil Exam: NORMAL ACCOMODATION, PERRL - ENT Exam ENT Exam: Mucous Membranes Moist, Normal Exam - Neck Exam Neck Exam: Full ROM, Normal Inspection. absent: Lymphadenopathy - Respiratory Exam Respiratory Exam: Rhonchi, Wheezes - Cardiovascular Exam Cardiovascular Exam: REGULAR RHYTHM, +S1, +S2, Murmur - GI/Abdominal Exam GI & Abdominal Exam: Soft, Normal Bowel Sounds. absent: Tenderness - Rectal Exam Rectal Exam: NORMAL INSPECTION - Extremities Exam Extremities Exam: Pedal Edema Additional comments: RLE WRAP CDI - Back Exam Back Exam: NORMAL INSPECTION - Neurological Exam Neurological Exam: Alert, Awake, CN II-XII Intact, Oriented x3 - Psychiatric Exam Psychiatric exam: Normal Affect, Normal Mood - Skin Skin Exam: Dry, Intact, Normal Color, Warm Assessment and Plan (1) Coagulopathy Status: Acute (2) Deep vein thrombophlebitis of right leg Status: Acute (3) Deep venous thrombosis of lower extremity Status: Acute (4) Diabetes Status: Chronic (5) HTN (hypertension) Status: Chronic (6) Renal insufficiency Status: Chronic (7) RBBB Status: Chronic (8) Risk and functional assessment Status: Acute - Assessment and Plan (Free Text) Plan: REPLEAT MAG I&S AT BEDSIDE (USE OFTEN POSSIBLE) CONT CURRENT MEDS. ADD MUCINEX 45 MIN
[2016-06-22 11:52] LABS: AST/SGOT 40 U/L (17-59); BILIRUBIN,TOTAL 0.8 mg/dL (0.2-1.3); CARBON DIOXIDE 26 mmol/L (22-30); GFR AFRICAN-AMERICAN > 60
[2016-06-22 11:53] LABS: ALB/GLOB RATIO 0.9 (1.0-2.1); ALKALINE PHOSPHATASE 185 U/L (38-126); ALT/SGPT 40 U/L (21-72); BLOOD UREA NITROGEN 15 mg/dL (9-20); CALCIUM 7.5 mg/dl (8.6-10.4); GLUCOSE,RANDOM 184 mg/dL (75-110); PHOSPHOROUS 3.8 mg/dL (2.5-4.5); TOTAL PROTEIN 5.9 g/dL (6.3-8.3)
[2016-06-22 11:54] LABS: MAGNESIUM 1.4 mg/dL (1.6-2.3)
--- NOTE | 2016-06-22 13:03 | CP.PCM.PN ---
Subjective - Date & Time of Evaluation Date of Evaluation: 06/22/16 Time of Evaluation: 13:00 - Subjective Subjective: s/p IVC filter, thrombolysis left LE alert, no new complaints denies SOB, CPs, n, v, diarrhea, dysuria [id number] Renal function acceptable On lasix, ARB agent Objective - Vital Signs/Intake and Output Vital Signs (last 24 hours): Temp Pulse Resp BP Pulse Ox 98.2 F 98 H 21 131/81 100 06/22/16 04:00 06/22/16 00:00 06/22/16 04:00 06/22/16 11:02 06/21/16 09:00 Intake and Output: 06/22/16 06/22/16 06:59 18:59 Intake Total 1320 Balance 1320 - Medications Medications: Current Medications Albuterol/Ipratropium (Duoneb 3 Mg/0.5 Mg (3 Ml) Ud) 3 ml INH RQ6 PRN PRN Reason: Wheezing Last Admin: 06/15/16 13:18 Dose: 3 ml Apixaban (Eliquis) 5 mg PO BID [facility] Last Admin: 06/22/16 11:00 Dose: 5 mg Aspirin (Aspirin Chewable) 81 mg PO DAILY [facility] Last Admin: 06/22/16 11:05 Dose: 81 mg Bacitracin (Bacitracin) 1 ea TOP BID [facility] Last Admin: 06/21/16 17:28 Dose: 1 ea Famotidine (Pepcid) 20 mg PO DAILY [facility] Last Admin: 06/22/16 11:06 Dose: 20 mg Furosemide (Lasix) 40 mg PO DAILY [facility] Last Admin: 06/22/16 11:02 Dose: 40 mg Linezolid (Zyvox 600mg/300ml D5w) 300 mls @ 200 mls/hr IVPB Q12H [facility] Last Admin: 06/22/16 05:35 Dose: 200 mls/hr Insulin Detemir (Levemir) 20 unit SC Q12H [facility] Last Admin: 06/22/16 11:06 Dose: 20 unit Insulin Human Regular (Novolin R) 0 unit SC ACHS [facility] PRN Reason: Protocol Last Admin: 06/22/16 12:57 Dose: 4 unit Losartan Potassium (Cozaar) 25 mg PO DAILY [facility] Last Admin: 06/22/16 11:05 Dose: 25 mg Magnesium Oxide (Mag-Ox) 400 mg PO BID [facility] Last Admin: 06/22/16 11:04 Dose: 400 mg Saccharomyces Boulardii (Florastor) 250 mg PO BID [facility] Last Admin: 06/22/16 11:02 Dose: 250 mg - Labs Labs: 06/22/16 11:35 06/22/16 11:35 PT 14.2 SECONDS (9.7-12.2) H 06/19/16 09:51 INR 1.3 06/19/16 09:51 APTT 63 SECONDS (21-34) H 06/19/16 09:51 - Constitutional Appears: No Acute Distress, Chronically Ill - Head Exam Head Exam: ATRAUMATIC, NORMAL INSPECTION - Eye Exam Eye Exam: EOMI, Normal appearance - Neck Exam Neck Exam: Normal Inspection. absent: Tenderness - Respiratory Exam Respiratory Exam: Rhonchi, Wheezes - Cardiovascular Exam Cardiovascular Exam: REGULAR RHYTHM, +S1 - GI/Abdominal Exam GI & Abdominal Exam: Soft. absent: Tenderness - Extremities Exam Extremities Exam: Pedal Edema. absent: Tenderness - Neurological Exam Neurological Exam: Alert, CN II-XII Intact - Skin Skin Exam: Dry, Warm Assessment and Plan (1) Cellulitis Status: Acute (2) Chronic kidney disease, stage 3 (moderate) Status: Acute (3) Deep venous thrombosis of lower extremity Status: Acute (4) Proteinuria due to type 2 diabetes mellitus Status: Acute (5) Type 2 diabetes mellitus with diabetic nephropathy Status: Acute (6) Nephrotic syndrome Status: Acute - Assessment and Plan (Free Text) Plan: Monitor renal function- on lasix and ARB Monitor BP- controlled now
[2016-06-22] MEDS: guaiFENesin 600 mg ER Tab PO SCH (18:00)
--- NOTE | 2016-06-22 20:55 | CP.PCM.PN ---
Subjective - Date & Time of Evaluation Date of Evaluation: 06/22/16 Time of Evaluation: 02:00 - Subjective Subjective: dictated Objective - Vital Signs/Intake and Output Vital Signs (last 24 hours): Temp Pulse Resp BP Pulse Ox 98.2 F 116 H 18 122/72 94 L 06/22/16 16:00 06/22/16 16:00 06/22/16 16:00 06/22/16 16:00 06/22/16 16:00 Intake and Output: 06/22/16 06/23/16 18:59 06:59 Intake Total 1350 Output Total 1175 Balance 175 - Medications Medications: Current Medications Albuterol/Ipratropium (Duoneb 3 Mg/0.5 Mg (3 Ml) Ud) 3 ml INH RQ6 PRN PRN Reason: Wheezing Last Admin: 06/15/16 13:18 Dose: 3 ml Apixaban (Eliquis) 5 mg PO BID [facility] Last Admin: 06/22/16 18:30 Dose: 5 mg Aspirin (Aspirin Chewable) 81 mg PO DAILY [facility] Last Admin: 06/22/16 11:05 Dose: 81 mg Bacitracin (Bacitracin) 1 ea TOP BID [facility] Last Admin: 06/22/16 19:48 Dose: 1 ea Famotidine (Pepcid) 20 mg PO DAILY [facility] Last Admin: 06/22/16 11:06 Dose: 20 mg Furosemide (Lasix) 40 mg PO DAILY [facility] Last Admin: 06/22/16 11:02 Dose: 40 mg Guaifenesin (Mucinex La) 600 mg PO BID [facility] Last Admin: 06/22/16 18:00 Dose: 600 mg Linezolid (Zyvox 600mg/300ml D5w) 300 mls @ 200 mls/hr IVPB Q12H [facility] Last Admin: 06/22/16 19:00 Dose: 200 mls/hr Insulin Detemir (Levemir) 20 unit SC Q12H [facility] Last Admin: 06/22/16 11:06 Dose: 20 unit Insulin Human Regular (Novolin R) 0 unit SC ACHS [facility] PRN Reason: Protocol Last Admin: 06/22/16 16:30 Dose: Not Given Losartan Potassium (Cozaar) 25 mg PO DAILY [facility] Last Admin: 06/22/16 11:05 Dose: 25 mg Magnesium Oxide (Mag-Ox) 400 mg PO BID [facility] Last Admin: 06/22/16 18:00 Dose: 400 mg Saccharomyces Boulardii (Florastor) 250 mg PO BID [facility] Last Admin: 06/22/16 18:00 Dose: 250 mg - Labs Labs: 06/22/16 11:35 06/22/16 11:35 PT 14.2 SECONDS (9.7-12.2) H 06/19/16 09:51 INR 1.3 06/19/16 09:51 APTT 63 SECONDS (21-34) H 06/19/16 09:51
--- NOTE | 2016-06-22 21:14 | PN ---
DATE: 06/22/2016 The patient is afebrile. He did complain of some headache. Otherwise, he was unremarkable. He does say his leg feels the same. Denies any complaints. Has a dressing on the right foot. Right hand s hows that he has like a burn, sort of a blister, maybe the chemical agent caused some sort of a burn on the right wrist, it is healing over. PHYSICAL EXAMINATION: VITAL SIGNS: He remains with tachycardia, heart rate of 98, blood pressure 120/76, respirations are 20. HEENT: Head is atraumatic, normocephalic. Pupils are reacting to light. NECK: Supple. LUNGS: Clear, no crackles or rales present. HEART: S1, S2 is regular. ABDOMEN: Flabby, nontender. EXTREMITIES: Right leg remains with a dressing and left leg also remains with edema. LABORATORY DATA: White count remains unchanged. White count is 14.7, hemoglobin is 11.2, hematocrit 35.5, platelet count is 97, but his platelets are dropping. Since Zyvox can do that, I am going to discontinue the Zyvox. Catheter culture was negative. MRSA was negative. This wound on the wrist is healing now. We will discontinue Linezolid and follow clinically his labs and will repeat the labs tomorrow. His urine output is better now. He is status post thrombolysis o f the clot and IVC filter. Still was in ICU when I saw him. Joshua Marsh MD cc: [id number] TT: 06/22/2016 21:14:04 Confirmation # [id number] Dictation # [id number]
[2016-06-23 06:48] LABS: BASO # 0.1 K/uL (0.0-0.2); BASO % 0.9 % (0.0-2.0); EOS # 1.1 K/uL (0.0-0.7); HEMATOCRIT 34.5 % (35.0-51.0); LYMPH # 2.6 K/uL (1.0-4.3); LYMPH % 21.7 % (20.0-40.0); MEAN CORPUSCULAR HEMOGLOBIN 28.1 pg (27.0-31.0); MEAN PLATELET VOLUME 8.7 fL (7.2-11.7); MONO # 1.8 K/uL (0.0-0.8); MONO % 15.3 % (0.0-10.0); NRBC % 0.2 % (0.0-2.0); RED CELL DISTRIBUTION WIDTH 17.8 % (11.5-14.5)
[2016-06-23 06:59] LABS: CHLORIDE 103 mmol/L (98-107)
[2016-06-23 07:00] LABS: POTASSIUM 4.4 mmol/L (3.6-5.2); SODIUM 138 mmol/L (132-148)
[2016-06-23 07:02] LABS: ALB/GLOB RATIO 0.9 (1.0-2.1); ALKALINE PHOSPHATASE 158 U/L (38-126); AST/SGOT 38 U/L (17-59); BILIRUBIN,TOTAL 0.9 mg/dL (0.2-1.3); BLOOD UREA NITROGEN 13 mg/dL (9-20); CARBON DIOXIDE 27 mmol/L (22-30); GFR AFRICAN-AMERICAN > 60
[2016-06-23 07:03] LABS: ALT/SGPT 32 U/L (21-72); CALCIUM 7.5 mg/dl (8.6-10.4); GLUCOSE,RANDOM 135 mg/dL (75-110); MAGNESIUM 1.9 mg/dL (1.6-2.3); PHOSPHOROUS 4.5 mg/dL (2.5-4.5)
--- NOTE | 2016-06-23 07:59 | CP.PCM.PN ---
<Rick Jernigan - Last Filed: 06/23/16 20:35> Subjective - Date & Time of Evaluation Date of Evaluation: 06/23/16 Time of Evaluation: 07:30 - Subjective Subjective: PGY1 Medicine Note - Dr. Vargas Patient seen and examined at bedside. No acute overnight events. Resting comfortably. Patient is POD#3 s/p of IVC Filter and ileofemoral thrombosis right iliac vein. He reports that he slept somewhat overnight, however was very distracted by the activity on the floor. He continues to feel pain in his lower extremities with the right hurting more than the left, but reports his pain medication helps. He feels that his breathing is improved. Currently he denies fever, abdominal pain, nausea, vomiting, diarrhea, constipation, dysuria and any other acute complaints at this time. Objective - Vital Signs/Intake and Output Vital Signs (last 24 hours): Temp Pulse Resp BP Pulse Ox 98.1 F 107 H 18 142/80 96 06/23/16 04:00 06/23/16 04:00 06/23/16 04:00 06/23/16 04:00 06/23/16 04:00 Intake and Output: 06/23/16 06/23/16 06:59 18:59 Intake Total 1000 Output Total 1300 Balance -300 - Medications Medications: Current Medications Albuterol/Ipratropium (Duoneb 3 Mg/0.5 Mg (3 Ml) Ud) 3 ml INH RQ6 PRN PRN Reason: Wheezing Last Admin: 06/15/16 13:18 Dose: 3 ml Apixaban (Eliquis) 5 mg PO BID [facility] Last Admin: 06/22/16 18:30 Dose: 5 mg Aspirin (Aspirin Chewable) 81 mg PO DAILY [facility] Last Admin: 06/22/16 11:05 Dose: 81 mg Bacitracin (Bacitracin) 1 ea TOP BID [facility] Last Admin: 06/22/16 19:48 Dose: 1 ea Famotidine (Pepcid) 20 mg PO DAILY [facility] Last Admin: 06/22/16 11:06 Dose: 20 mg Furosemide (Lasix) 40 mg PO DAILY [facility] Last Admin: 06/22/16 11:02 Dose: 40 mg Guaifenesin (Mucinex La) 600 mg PO BID [facility] Last Admin: 06/22/16 18:00 Dose: 600 mg Insulin Detemir (Levemir) 20 unit SC Q12H [facility] Last Admin: 06/22/16 23:00 Dose: 20 unit Insulin Human Regular (Novolin R) 0 unit SC ACHS [facility] PRN Reason: Protocol Last Admin: 06/22/16 21:24 Dose: Not Given Losartan Potassium (Cozaar) 25 mg PO DAILY [facility] Last Admin: 06/22/16 11:05 Dose: 25 mg Magnesium Oxide (Mag-Ox) 400 mg PO BID [facility] Last Admin: 06/22/16 18:00 Dose: 400 mg Saccharomyces Boulardii (Florastor) 250 mg PO BID [facility] Last Admin: 06/22/16 18:00 Dose: 250 mg - Labs Labs: 06/23/16 06:44 06/23/16 06:44 PT 14.2 SECONDS (9.7-12.2) H 06/19/16 09:51 INR 1.3 06/19/16 09:51 APTT 63 SECONDS (21-34) H 06/19/16 09:51 - Additional Findings Additional findings: - Constitutional Appears: Well - Head Exam Head Exam: ATRAUMATIC, NORMAL INSPECTION, NORMOCEPHALIC - Eye Exam Eye Exam: EOMI, Normal appearance, PERRL - ENT Exam ENT Exam: Mucous Membranes Moist, Normal Exam - Neck Exam Neck Exam: Full ROM, Normal Inspection. absent: Lymphadenopathy - Respiratory Exam Respiratory Exam: Normal breathing pattern, Wheezes. absent: Respiratory distress, Rhonchi - Cardiovascular Exam Cardiovascular Exam: REGULAR RHYTHM, +S1, +S2, Murmur - GI/Abdominal Exam GI & Abdominal Exam: Soft, Normal Bowel Sounds. absent: Tenderness - Rectal Exam Rectal Exam: NORMAL INSPECTION - Extremities Exam Extremities Exam: Pedal Edema, Tenderness (b/l LE R>L) -RLE WRAP CDI - Back Exam Back Exam: NORMAL INSPECTION - Neurological Exam Neurological Exam: Alert, Awake, CN II-XII Intact, Oriented x3 - Psychiatric Exam Psychiatric exam: Normal Affect, Normal Mood - Skin Skin Exam: Dry, Intact, Normal Color, Warm Assessment and Plan - Assessment and Plan (Free Text) Assessment: Deep vein thrombo of right leg 4/6: Patient is POD 3 of thrombolysis as well as placement of IVC filter. Continue on anticoagulation. 06/20: Patient went to OR today with Dr. Ortega to correct ileofemoral thrombosis right iliac vein. Operative findings included partial lysis of clot in right iliac and ivcf placed via left groin. Patient in ICU s/p procedure for overnight monitoring. -Continue Eliquis 5mg bid Patient was seen by Dr. Ortega, initally said he want thrombolysis therapy but has changed his mind and wants to think over the risk and benefits of the therapy. Dr. Caba and Dr. Ortega was informed of patient's decision. Renal insufficiency Status: Chronic 06/22-06/23: Dr. Rhoades Nephro on case. [id number]. Renal function acceptable. On lasix, ARB agent. add amlodipine (06/23) 06/21: Urine output was 3200 yesterday and the creatine is 1.1 this morning. Will need to continue to monitor as he does have history of needing HD Nephrology consulted, Dr. Rhoades -Continue diuretic -Eventually will need BREANA I- can start post thrombolysis if no acute events Multiple abscess formation Status: Acute 06/22: STOP Zyvox IV (started 06/17) (stop 06/22) -Florastor Dr. Marsh is consulted, f/u recs. Thrombocytopenia 06/23: platelets dropped from 97 to 87. Continue Elequis. Zyvox stopped 06/22. Monitor. Leg edema, right Status: Acute Changed his pain medication to Percocet 5/325 2 tablets. Morphine and Tyelnol were dc COPD (chronic obstructive pulmonary disease) Status: Chronic Duoneb 3ml prn q6h Diabetes Status: Chronic accu checks and sliding scale HTN (hypertension) Status: Chronic Aspirin 81mg Lasix 40mg daily Prophylactic measure Status: Acute Pepcid 20mg Fully anticoaguated with Eiquis Mag Ox 400mg bid SCDs contraindicated due to DVT <Rick Vargas H - Last Filed: 06/24/16 07:24> Objective - Vital Signs/Intake and Output Vital Signs (last 24 hours): Temp Pulse Resp BP Pulse Ox 97.1 F L 92 H 17 135/78 98 06/23/16 22:00 06/24/16 06:00 06/24/16 06:00 06/23/16 22:00 06/23/16 22:00 Intake and Output: 06/24/16 06/24/16 06:59 18:59 Intake Total 850 Balance 850 - Medications Medications: Current Medications Albuterol/Ipratropium (Duoneb 3 Mg/0.5 Mg (3 Ml) Ud) 3 ml INH RQ6 PRN PRN Reason: Wheezing Last Admin: 06/15/16 13:18 Dose: 3 ml Amlodipine Besylate (Norvasc) 5 mg PO DAILY [facility] Last Admin: 06/23/16 10:46 Dose: 5 mg Apixaban (Eliquis) 5 mg PO BID [facility] Last Admin: 06/23/16 17:27 Dose: 5 mg Aspirin (Aspirin Chewable) 81 mg PO DAILY [facility] Last Admin: 06/23/16 10:46 Dose: 81 mg Bacitracin (Bacitracin) 1 ea TOP BID [facility] Last Admin: 06/23/16 17:38 Dose: 1 ea Famotidine (Pepcid) 20 mg PO DAILY [facility] Last Admin: 06/23/16 10:46 Dose: 20 mg Furosemide (Lasix) 40 mg PO DAILY [facility] Last Admin: 06/23/16 10:47 Dose: 40 mg Guaifenesin (Mucinex La) 600 mg PO BID [facility] Last Admin: 06/23/16 17:27 Dose: 600 mg Insulin Detemir (Levemir) 20 unit SC Q12H [facility] Last Admin: 06/23/16 22:15 Dose: 20 unit Insulin Human Regular (Novolin R) 0 unit SC ACHS [facility] PRN Reason: Protocol Last Admin: 06/23/16 21:21 Dose: Not Given Losartan Potassium (Cozaar) 25 mg PO DAILY [facility] Last Admin: 06/23/16 10:46 Dose: 25 mg Magnesium Oxide (Mag-Ox) 400 mg PO BID [facility] Last Admin: 06/23/16 17:27 Dose: 400 mg Oxycodone/Acetaminophen (Percocet 5/325 Mg Tab) 1 tab PO Q6H PRN PRN Reason: Pain, moderate (4-7) Stop: 06/26/16 11:16 Last Admin: 06/23/16 11:36 Dose: 1 tab Saccharomyces Boulardii (Florastor) 250 mg PO BID [facility] Last Admin: 06/23/16 17:27 Dose: 250 mg - Labs Labs: 06/24/16 06:31 06/24/16 06:31 PT 14.2 SECONDS (9.7-12.2) H 06/19/16 09:51 INR 1.3 06/19/16 09:51 APTT 63 SECONDS (21-34) H 06/19/16 09:51 Attending/Attestation - Attestation I have personally seen and examined this patient.: Yes I have fully participated in the care of the patient.: Yes I have reviewed all pertinent clinical information, including history, physical exam and plan: Yes Notes (Text): Medical attending: Patient was seen and examined by me, agrees the above note by medical assistant. The patient looks well he is alert he is awake he is able to sit up out of bed in the chair. As mentioned before the above resident note he's status post IVC filter as well as probable lysis of the lower extremity with chronic DVT. He remains on oral anticoagulation this time. We have to monitor his urine output and creatinine as he does have a history of requiring hemodialysis due to see daily. Currently his urine output is ok it's 2800 over the recent 24 hours his creatinine has remained under 1.4 as well for the past couple days following the procedure As mentioned before the patient does test positive for anti-phospholipid syndrome, made the patient as well as the patient's family aware of this thank you Rick Vargas
[2016-06-23] MEDS: (Novolin R) Insulin Human Regular 100 units/ml vial SC SCH ×4 (08:22→21:21)
--- NOTE | 2016-06-23 10:18 | CP.PCM.PN ---
Subjective - Date & Time of Evaluation Date of Evaluation: 06/23/16 Time of Evaluation: 10:15 - Subjective Subjective: Alert; no new complaints POD#2 LE thrombectomy, IVC filter UO good; renal function stable BP moderately high still No N, V, CPs, fevver, dysuria Objective - Vital Signs/Intake and Output Vital Signs (last 24 hours): Temp Pulse Resp BP Pulse Ox 98.5 F 98 H 16 146/94 H 97 06/23/16 08:00 06/23/16 08:00 06/23/16 08:00 06/23/16 08:00 06/23/16 08:00 Intake and Output: 06/23/16 06/23/16 06:59 18:59 Intake Total 1200 Output Total 1600 Balance -400 - Medications Medications: Current Medications Albuterol/Ipratropium (Duoneb 3 Mg/0.5 Mg (3 Ml) Ud) 3 ml INH RQ6 PRN PRN Reason: Wheezing Last Admin: 06/15/16 13:18 Dose: 3 ml Apixaban (Eliquis) 5 mg PO BID [facility] Last Admin: 06/22/16 18:30 Dose: 5 mg Aspirin (Aspirin Chewable) 81 mg PO DAILY [facility] Last Admin: 06/22/16 11:05 Dose: 81 mg Bacitracin (Bacitracin) 1 ea TOP BID [facility] Last Admin: 06/22/16 19:48 Dose: 1 ea Famotidine (Pepcid) 20 mg PO DAILY [facility] Last Admin: 06/22/16 11:06 Dose: 20 mg Furosemide (Lasix) 40 mg PO DAILY [facility] Last Admin: 06/22/16 11:02 Dose: 40 mg Guaifenesin (Mucinex La) 600 mg PO BID [facility] Last Admin: 06/22/16 18:00 Dose: 600 mg Insulin Detemir (Levemir) 20 unit SC Q12H [facility] Last Admin: 06/22/16 23:00 Dose: 20 unit Insulin Human Regular (Novolin R) 0 unit SC ACHS [facility] PRN Reason: Protocol Last Admin: 06/23/16 08:22 Dose: Not Given Losartan Potassium (Cozaar) 25 mg PO DAILY [facility] Last Admin: 06/22/16 11:05 Dose: 25 mg Magnesium Oxide (Mag-Ox) 400 mg PO BID [facility] Last Admin: 06/22/16 18:00 Dose: 400 mg Saccharomyces Boulardii (Florastor) 250 mg PO BID [facility] Last Admin: 06/22/16 18:00 Dose: 250 mg - Labs Labs: 06/23/16 06:44 06/23/16 06:44 PT 14.2 SECONDS (9.7-12.2) H 06/19/16 09:51 INR 1.3 06/19/16 09:51 APTT 63 SECONDS (21-34) H 06/19/16 09:51 - Constitutional Appears: No Acute Distress, Chronically Ill - Head Exam Head Exam: ATRAUMATIC, NORMAL INSPECTION - Eye Exam Eye Exam: EOMI, Normal appearance - Neck Exam Neck Exam: Normal Inspection. absent: Tenderness - Respiratory Exam Respiratory Exam: Wheezes, NORMAL BREATHING PATTERN - Cardiovascular Exam Cardiovascular Exam: REGULAR RHYTHM, +S1 - GI/Abdominal Exam GI & Abdominal Exam: Soft. absent: Tenderness - Extremities Exam Extremities Exam: Pedal Edema. absent: Tenderness - Neurological Exam Neurological Exam: Alert, CN II-XII Intact - Skin Skin Exam: Dry, Warm Assessment and Plan (1) Cellulitis Status: Acute (2) Chronic kidney disease, stage 3 (moderate) Status: Acute (3) Deep venous thrombosis of lower extremity Status: Acute (4) Proteinuria due to type 2 diabetes mellitus Status: Acute (5) Type 2 diabetes mellitus with diabetic nephropathy Status: Acute (6) Nephrotic syndrome Status: Acute - Assessment and Plan (Free Text) Plan: Re- add amlodipine Monitor renal function, lytes
[2016-06-23] MEDS: guaiFENesin 600 mg ER Tab PO SCH ×2 (10:46→17:27)
[2016-06-23] MEDS: Insulin Detemir 100 units/ml Vial (Levemir) SC SCH ×2 (10:46→22:15)
[2016-06-23] MEDS: Saccharomyces Boulardi 250 mg Cap PO SCH ×2 (10:47→17:27)
[2016-06-23] MEDS: Magnesium Oxide 400 mg Tab UD PO SCH ×2 (10:47→17:27)
[2016-06-23] MEDS: Bacitracin 500 Units/gm Oint Foilpak UD TOP SCH ×3 (10:47→17:38)
[2016-06-23] MEDS: Oxycodone/Acetaminophen 5/325 mg Tab PO PRN (11:36)
--- NOTE | 2016-06-23 11:59 | CP.PCM.PN ---
Subjective - Date & Time of Evaluation Date of Evaluation: 06/23/16 Time of Evaluation: 11:58 - Subjective Subjective: leg much better improving nicely dc on noac importance of poistioning and compression stockings dwp Objective - Vital Signs/Intake and Output Vital Signs (last 24 hours): Temp Pulse Resp BP Pulse Ox 98.5 F 98 H 16 145/94 H 97 06/23/16 08:00 06/23/16 08:00 06/23/16 08:00 06/23/16 10:47 06/23/16 08:00 Intake and Output: 06/23/16 06/23/16 06:59 18:59 Intake Total 1200 Output Total 1600 Balance -400 - Medications Medications: Current Medications Albuterol/Ipratropium (Duoneb 3 Mg/0.5 Mg (3 Ml) Ud) 3 ml INH RQ6 PRN PRN Reason: Wheezing Last Admin: 06/15/16 13:18 Dose: 3 ml Amlodipine Besylate (Norvasc) 5 mg PO DAILY [facility] Last Admin: 06/23/16 10:46 Dose: 5 mg Apixaban (Eliquis) 5 mg PO BID [facility] Last Admin: 06/23/16 10:47 Dose: 5 mg Aspirin (Aspirin Chewable) 81 mg PO DAILY [facility] Last Admin: 06/23/16 10:46 Dose: 81 mg Bacitracin (Bacitracin) 1 ea TOP BID [facility] Last Admin: 06/23/16 10:47 Dose: 1 ea Famotidine (Pepcid) 20 mg PO DAILY [facility] Last Admin: 06/23/16 10:46 Dose: 20 mg Furosemide (Lasix) 40 mg PO DAILY [facility] Last Admin: 06/23/16 10:47 Dose: 40 mg Guaifenesin (Mucinex La) 600 mg PO BID [facility] Last Admin: 06/23/16 10:46 Dose: 600 mg Insulin Detemir (Levemir) 20 unit SC Q12H [facility] Last Admin: 06/23/16 10:46 Dose: 20 unit Insulin Human Regular (Novolin R) 0 unit SC ACHS [facility] PRN Reason: Protocol Last Admin: 06/23/16 11:37 Dose: 2 unit Losartan Potassium (Cozaar) 25 mg PO DAILY [facility] Last Admin: 06/23/16 10:46 Dose: 25 mg Magnesium Oxide (Mag-Ox) 400 mg PO BID [facility] Last Admin: 06/23/16 10:47 Dose: 400 mg Oxycodone/Acetaminophen (Percocet 5/325 Mg Tab) 1 tab PO Q6H PRN PRN Reason: Pain, moderate (4-7) Stop: 06/26/16 11:16 Last Admin: 06/23/16 11:36 Dose: 1 tab Saccharomyces Boulardii (Florastor) 250 mg PO BID [facility] Last Admin: 06/23/16 10:47 Dose: 250 mg - Labs Labs: 06/23/16 06:44 06/23/16 06:44 PT 14.2 SECONDS (9.7-12.2) H 06/19/16 09:51 INR 1.3 06/19/16 09:51 APTT 63 SECONDS (21-34) H 06/19/16 09:51
--- NOTE | 2016-06-23 13:20 | CARD ---
APPROVED REPORT EKG Measurement Heart [id number] CO [id number] <Conclusion> Normal sinus rhythm Right bundle branch block, plus right ventricular hypertrophy Abnormal ECG
--- NOTE | 2016-06-24 00:05 | CP.PCM.PN ---
Subjective - Date & Time of Evaluation Date of Evaluation: 06/23/16 Time of Evaluation: 19:25 - Subjective Subjective: Has some leg pain Objective - Vital Signs/Intake and Output Vital Signs (last 24 hours): Temp Pulse Resp BP Pulse Ox 98.1 F 103 H 22 151/51 H 97 06/23/16 16:30 06/23/16 16:30 06/23/16 16:30 06/23/16 18:00 06/23/16 16:30 Intake and Output: 06/23/16 06/24/16 18:59 06:59 Intake Total 2200 200 Output Total 1600 Balance 600 200 - Medications Medications: Current Medications Albuterol/Ipratropium (Duoneb 3 Mg/0.5 Mg (3 Ml) Ud) 3 ml INH RQ6 PRN PRN Reason: Wheezing Last Admin: 06/15/16 13:18 Dose: 3 ml Amlodipine Besylate (Norvasc) 5 mg PO DAILY [facility] Last Admin: 06/23/16 10:46 Dose: 5 mg Apixaban (Eliquis) 5 mg PO BID [facility] Last Admin: 06/23/16 17:27 Dose: 5 mg Aspirin (Aspirin Chewable) 81 mg PO DAILY [facility] Last Admin: 06/23/16 10:46 Dose: 81 mg Bacitracin (Bacitracin) 1 ea TOP BID [facility] Last Admin: 06/23/16 17:38 Dose: 1 ea Famotidine (Pepcid) 20 mg PO DAILY [facility] Last Admin: 06/23/16 10:46 Dose: 20 mg Furosemide (Lasix) 40 mg PO DAILY [facility] Last Admin: 06/23/16 10:47 Dose: 40 mg Guaifenesin (Mucinex La) 600 mg PO BID [facility] Last Admin: 06/23/16 17:27 Dose: 600 mg Insulin Detemir (Levemir) 20 unit SC Q12H [facility] Last Admin: 06/23/16 22:15 Dose: 20 unit Insulin Human Regular (Novolin R) 0 unit SC ACHS [facility] PRN Reason: Protocol Last Admin: 06/23/16 21:21 Dose: Not Given Losartan Potassium (Cozaar) 25 mg PO DAILY [facility] Last Admin: 06/23/16 10:46 Dose: 25 mg Magnesium Oxide (Mag-Ox) 400 mg PO BID [facility] Last Admin: 06/23/16 17:27 Dose: 400 mg Oxycodone/Acetaminophen (Percocet 5/325 Mg Tab) 1 tab PO Q6H PRN PRN Reason: Pain, moderate (4-7) Stop: 06/26/16 11:16 Last Admin: 06/23/16 11:36 Dose: 1 tab Saccharomyces Boulardii (Florastor) 250 mg PO BID [facility] Last Admin: 06/23/16 17:27 Dose: 250 mg - Labs Labs: 06/23/16 06:44 06/23/16 06:44 PT 14.2 SECONDS (9.7-12.2) H 06/19/16 09:51 INR 1.3 06/19/16 09:51 APTT 63 SECONDS (21-34) H 06/19/16 09:51 - Head Exam Head Exam: ATRAUMATIC - Eye Exam Eye Exam: Normal appearance - ENT Exam ENT Exam: Mucous Membranes Dry - Respiratory Exam Respiratory Exam: NORMAL BREATHING PATTERN - Cardiovascular Exam Cardiovascular Exam: +S1, +S2 - GI/Abdominal Exam GI & Abdominal Exam: Normal Bowel Sounds - Extremities Exam Extremities Exam: Pedal Edema Assessment and Plan (1) Deep venous thrombosis of lower extremity Assessment & Plan: recurrent s/p thrombolysis and ivc filter therapeutic anticoagulation Status: Acute (2) Leukocytosis Status: Acute (3) Coagulopathy Status: Acute
[2016-06-24 01:13] VITALS: O2SAT 98
[2016-06-24 06:36] LABS: BASO # 0.1 K/uL (0.0-0.2); BASO % 1.2 % (0.0-2.0); EOS % 8.4 % (0.0-4.0); HEMATOCRIT 36.1 % (35.0-51.0); LYMPH # 2.9 K/uL (1.0-4.3); MEAN CELL VOLUME 88.3 fL (80.0-94.0); MEAN CORPUSCULAR HEMOGLOBIN 28.7 pg (27.0-31.0); MEAN CORPUSCULAR HGB CONC 32.5 g/dL (33.0-37.0); MEAN PLATELET VOLUME 8.6 fL (7.2-11.7); MONO # 1.4 K/uL (0.0-0.8); MONO % 11.7 % (0.0-10.0); NRBC % 0.2 % (0.0-2.0); RED CELL DISTRIBUTION WIDTH 17.5 % (11.5-14.5); WHITE BLOOD COUNT 11.7 K/uL (4.8-10.8)
[2016-06-24 06:40] VITALS: PULSE 92; RESP 17
[2016-06-24 06:56] LABS: CHLORIDE 98 mmol/L (98-107)
[2016-06-24 06:57] LABS: POTASSIUM 3.6 mmol/L (3.6-5.2); SODIUM 140 mmol/L (132-148)
[2016-06-24 06:59] LABS: ALB/GLOB RATIO 0.9 (1.0-2.1); AST/SGOT 32 U/L (17-59); BILIRUBIN,TOTAL 0.9 mg/dL (0.2-1.3); CARBON DIOXIDE 31 mmol/L (22-30); GFR AFRICAN-AMERICAN > 60; TOTAL PROTEIN 5.7 g/dL (6.3-8.3)
[2016-06-24 07:00] LABS: ALKALINE PHOSPHATASE 171 U/L (38-126); ALT/SGPT 35 U/L (21-72); BLOOD UREA NITROGEN 12 mg/dL (9-20); CALCIUM 7.8 mg/dl (8.6-10.4); GLUCOSE,RANDOM 92 mg/dL (75-110); MAGNESIUM 1.6 mg/dL (1.6-2.3); PHOSPHOROUS 4.4 mg/dL (2.5-4.5)
--- NOTE | 2016-06-24 07:36 | CP.PCM.PN ---
Objective - Vital Signs/Intake and Output Vital Signs (last 24 hours): Temp Pulse Resp BP Pulse Ox 97.1 F L 92 H 17 135/78 98 06/23/16 22:00 06/24/16 06:00 06/24/16 06:00 06/23/16 22:00 06/23/16 22:00 Intake and Output: 06/24/16 06/24/16 06:59 18:59 Intake Total 850 Balance 850 - Medications Medications: Current Medications Albuterol/Ipratropium (Duoneb 3 Mg/0.5 Mg (3 Ml) Ud) 3 ml INH RQ6 PRN PRN Reason: Wheezing Last Admin: 06/15/16 13:18 Dose: 3 ml Amlodipine Besylate (Norvasc) 5 mg PO DAILY [facility] Last Admin: 06/23/16 10:46 Dose: 5 mg Apixaban (Eliquis) 5 mg PO BID [facility] Last Admin: 06/23/16 17:27 Dose: 5 mg Aspirin (Aspirin Chewable) 81 mg PO DAILY [facility] Last Admin: 06/23/16 10:46 Dose: 81 mg Bacitracin (Bacitracin) 1 ea TOP BID [facility] Last Admin: 06/23/16 17:38 Dose: 1 ea Famotidine (Pepcid) 20 mg PO DAILY [facility] Last Admin: 06/23/16 10:46 Dose: 20 mg Furosemide (Lasix) 40 mg PO DAILY [facility] Last Admin: 06/23/16 10:47 Dose: 40 mg Guaifenesin (Mucinex La) 600 mg PO BID [facility] Last Admin: 06/23/16 17:27 Dose: 600 mg Insulin Detemir (Levemir) 20 unit SC Q12H [facility] Last Admin: 06/23/16 22:15 Dose: 20 unit Insulin Human Regular (Novolin R) 0 unit SC ACHS [facility] PRN Reason: Protocol Last Admin: 06/23/16 21:21 Dose: Not Given Losartan Potassium (Cozaar) 25 mg PO DAILY [facility] Last Admin: 06/23/16 10:46 Dose: 25 mg Magnesium Oxide (Mag-Ox) 400 mg PO BID [facility] Last Admin: 06/23/16 17:27 Dose: 400 mg Oxycodone/Acetaminophen (Percocet 5/325 Mg Tab) 1 tab PO Q6H PRN PRN Reason: Pain, moderate (4-7) Stop: 06/26/16 11:16 Last Admin: 06/23/16 11:36 Dose: 1 tab Saccharomyces Boulardii (Florastor) 250 mg PO BID [facility] Last Admin: 06/23/16 17:27 Dose: 250 mg - Labs Labs: 06/24/16 06:31 06/24/16 06:31 PT 14.2 SECONDS (9.7-12.2) H 06/19/16 09:51 INR 1.3 06/19/16 09:51 APTT 63 SECONDS (21-34) H 06/19/16 09:51
[2016-06-24] MEDS: (Novolin R) Insulin Human Regular 100 units/ml vial SC SCH ×3 (08:00→18:19)
[2016-06-24] MEDS: guaiFENesin 600 mg ER Tab PO SCH ×2 (10:00→18:15)
[2016-06-24] MEDS: Saccharomyces Boulardi 250 mg Cap PO SCH ×2 (10:00→18:16)
[2016-06-24] MEDS: Magnesium Oxide 400 mg Tab UD PO SCH ×2 (10:17→18:17)
[2016-06-24] MEDS: Bacitracin 500 Units/gm Oint Foilpak UD TOP SCH ×2 (10:18→18:18)
[2016-06-24] MEDS: Insulin Detemir 100 units/ml Vial (Levemir) SC SCH (11:20)
--- NOTE | 2016-06-24 13:26 | CP.PCM.PN ---
Subjective - Date & Time of Evaluation Date of Evaluation: 06/24/16 Time of Evaluation: 13:24 - Subjective Subjective: Alert; less LE pain POD#3 thrombectomy/IVC filter Good UO; BP better controlled No new compliants- same mild wheezing Renal function has stabilized Objective - Vital Signs/Intake and Output Vital Signs (last 24 hours): Temp Pulse Resp BP Pulse Ox 97.1 F L 92 H 17 135/78 98 06/23/16 22:00 06/24/16 06:00 06/24/16 06:00 06/23/16 22:00 06/23/16 22:00 Intake and Output: 06/24/16 06/24/16 06:59 18:59 Intake Total 850 Balance 850 - Medications Medications: Current Medications Acetaminophen (Tylenol 325mg Tab) 650 mg PO Q8 PRN PRN Reason: Headache Albuterol/Ipratropium (Duoneb 3 Mg/0.5 Mg (3 Ml) Ud) 3 ml INH RQ6 PRN PRN Reason: Wheezing Last Admin: 06/15/16 13:18 Dose: 3 ml Amlodipine Besylate (Norvasc) 5 mg PO DAILY [facility] [place] Last Admin: 06/23/16 10:46 Dose: 5 mg Apixaban (Eliquis) 5 mg PO BID [facility] [place] Last Admin: 06/23/16 17:27 Dose: 5 mg Aspirin (Aspirin Chewable) 81 mg PO DAILY [facility] [place] Last Admin: 06/23/16 10:46 Dose: 81 mg Bacitracin (Bacitracin) 1 ea TOP BID [facility] Last Admin: 06/23/16 17:38 Dose: 1 ea Famotidine (Pepcid) 20 mg PO DAILY [facility] [place] Last Admin: 06/23/16 10:46 Dose: 20 mg Furosemide (Lasix) 40 mg PO DAILY [facility] Last Admin: 06/23/16 10:47 Dose: 40 mg Guaifenesin (Mucinex La) 600 mg PO BID [facility] [place] Last Admin: 06/23/16 17:27 Dose: 600 mg Insulin Detemir (Levemir) 20 unit SC Q12H [facility] Last Admin: 06/23/16 22:15 Dose: 20 unit Insulin Human Regular (Novolin R) 0 unit SC ACHS [facility] PRN Reason: Protocol Last Admin: 06/23/16 21:21 Dose: Not Given Losartan Potassium (Cozaar) 25 mg PO DAILY [facility] [place] Last Admin: 06/23/16 10:46 Dose: 25 mg Magnesium Oxide (Mag-Ox) 400 mg PO BID [facility] [place] Last Admin: 06/23/16 17:27 Dose: 400 mg Oxycodone/Acetaminophen (Percocet 5/325 Mg Tab) 1 tab PO Q6H PRN PRN Reason: Pain, moderate (4-7) Stop: 06/26/16 11:16 Last Admin: 06/23/16 11:36 Dose: 1 tab Saccharomyces Boulardii (Florastor) 250 mg PO BID [facility] [place] Last Admin: 06/23/16 17:27 Dose: 250 mg - Labs Labs: 06/24/16 06:31 06/24/16 06:31 PT 14.2 SECONDS (9.7-12.2) H 06/19/16 09:51 INR 1.3 06/19/16 09:51 APTT 63 SECONDS (21-34) H 06/19/16 09:51 - Constitutional Appears: No Acute Distress, Chronically Ill - Head Exam Head Exam: ATRAUMATIC, NORMAL INSPECTION - Eye Exam Eye Exam: EOMI, Normal appearance - Neck Exam Neck Exam: Normal Inspection. absent: Tenderness - Respiratory Exam Respiratory Exam: Clear to Ausculation Bilateral, NORMAL BREATHING PATTERN - Cardiovascular Exam Cardiovascular Exam: REGULAR RHYTHM, +S1 - GI/Abdominal Exam GI & Abdominal Exam: Soft. absent: Tenderness - Extremities Exam Extremities Exam: Pedal Edema, Tenderness - Neurological Exam Neurological Exam: Alert, CN II-XII Intact - Skin Skin Exam: Dry, Warm Assessment and Plan (1) Cellulitis Status: Acute (2) Chronic kidney disease, stage 3 (moderate) Status: Acute (3) Deep venous thrombosis of lower extremity Status: Acute (4) Proteinuria due to type 2 diabetes mellitus Status: Acute (5) Type 2 diabetes mellitus with diabetic nephropathy Status: Acute (6) Nephrotic syndrome Status: Acute - Assessment and Plan (Free Text) Plan: Same BP meds/ diuretics Doing well post-op Eventually can increase ARB dosage
[2016-06-24] MEDS: Oxycodone/Acetaminophen 5/325 mg Tab PO PRN (18:14)
[2016-06-24 18:21] VITALS: BP 124/84
[2016-06-24 19:29] VITALS: TEMP 99.4
--- NOTE | 2016-06-24 21:14 | CP.PCM.DIS ---
<Rick Jernigan - Last Filed: 06/27/16 10:21> Provider - Provider Date of Admission: 05/25/16 17:24 Attending physician: Heaven Guerra DO Consults: 05/25/16 18:06 Vascular Surgery Routine Comment: Consulting Provider: Kristian Ortega Jr. Physician Instructions: Reason For Exam: Right leg pain/swelling/hx of DVT Time Spent in preparation of Discharge (in minutes): 40 Hospital Course - Lab Results Lab Results: Micro Results 06/20/16 Unknown Naris MRSA Culture (Admit) - Final MRSA NOT DETECTED 06/17/16 18:00 Indwelling Cath Tip Catheter Tip Culture - Final No growth. 06/14/16 Unknown Sputum Gram Stain - Final 06/14/16 Unknown Sputum Sputum Culture - Final NORMAL ORAL HIEN 06/15/16 18:49 Naris MRSA Culture - Final MRSA NOT DETECTED 06/10/16 16:15 Blood-During Dialysis Blood Culture - Final NO GROWTH AFTER 5 DAYS 06/10/16 16:15 Blood-During Dialysis Gram Stain - Final TEST NOT PERFORMED 06/10/16 16:45 Blood-During Dialysis Blood Culture - Final NO GROWTH AFTER 5 DAYS 06/10/16 16:45 Blood-During Dialysis Gram Stain - Final TEST NOT PERFORMED 06/14/16 Unknown Urine,Clean Catch Urine Culture - Final No Growth (<1,000 CFU/ML) 06/13/16 Unknown Urine,Clean Catch Urine Culture - Final No Growth (<1,000 CFU/ML) 06/10/16 04:00 Blood-Venous Blood Culture - Final NO GROWTH AFTER 5 DAYS 06/10/16 04:00 Blood-Venous Gram Stain - Final TEST NOT PERFORMED 06/10/16 04:00 Blood-Venous Blood Culture - Final NO GROWTH AFTER 5 DAYS 06/10/16 04:00 Blood-Venous Gram Stain - Final TEST NOT PERFORMED 06/13/16 Unknown Sputum Gram Stain - Final 06/13/16 Unknown Sputum Sputum Culture - Final 06/11/16 20:15 Urine,Campbell Urine Culture - Final Vancomycin Resistant E.faecium 06/10/16 16:00 Trachasp Gram Stain - Final 06/10/16 16:00 Trachasp Sputum Culture - Final NORMAL ORAL HIEN 06/10/16 16:00 Urine Urine Culture - Final Vancomycin Resistant E.faecium 06/04/16 16:47 Blood-Thru Central Line Blood Culture - Final NO GROWTH AFTER 5 DAYS 06/04/16 16:47 Blood-Thru Central Line Gram Stain - Final TEST NOT PERFORMED 06/04/16 16:47 Blood-Thru Central Line Blood Culture - Final NO GROWTH AFTER 5 DAYS 06/04/16 16:47 Blood-Thru Central Line Gram Stain - Final TEST NOT PERFORMED 06/04/16 16:47 Trachasp Gram Stain - Final 06/04/16 16:47 Trachasp Sputum Culture - Final NORMAL ORAL HIEN 06/04/16 08:56 Naris MRSA Culture (Admit) - Final MRSA NOT DETECTED 06/04/16 16:47 Urine,Catheterized Urine Culture - Final No Growth (<1,000 CFU/ML) 05/27/16 08:31 Blood-Venous Blood Culture - Final NO GROWTH AFTER 5 DAYS 05/27/16 08:31 Blood-Venous Gram Stain - Final TEST NOT PERFORMED 05/27/16 08:31 Blood-Venous Blood Culture - Final NO GROWTH AFTER 5 DAYS 05/27/16 08:31 Blood-Venous Gram Stain - Final TEST NOT PERFORMED 05/27/16 11:02 Urine,Clean Catch Urine Culture - Final No Growth (<1,000 CFU/ML) 05/26/16 15:08 Urine,Clean Catch Urine Culture - Final No Growth (<1,000 CFU/ML) Most Recent Lab Values WBC 11.7 K/uL (4.8-10.8) H 06/24/16 06:31 RBC 4.09 Mil/uL (4.40-5.90) L 06/24/16 06:31 Hgb 11.7 g/dL (12.0-18.0) L 06/24/16 06:31 Hct 36.1 % (35.0-51.0) 06/24/16 06:31 MCV 88.3 fL (80.0-94.0) 06/24/16 06:31 MCH 28.7 pg (27.0-31.0) 06/24/16 06:31 MCHC 32.5 g/dL (33.0-37.0) L 06/24/16 06:31 RDW 17.5 % (11.5-14.5) H 06/24/16 06:31 Plt Count 82 K/uL (130-400) L 06/24/16 06:31 MPV 8.6 fL (7.2-11.7) 06/24/16 06:31 Neut % (Auto) 53.7 % (50.0-75.0) 06/24/16 06:31 Lymph % (Auto) 25.0 % (20.0-40.0) 06/24/16 06:31 Harvey % (Auto) 11.7 % (0.0-10.0) H 06/24/16 06:31 Eos % (Auto) 8.4 % (0.0-4.0) H 06/24/16 06:31 Baso % (Auto) 1.2 % (0.0-2.0) 06/24/16 06:31 Neut # 6.3 K/uL (1.8-7.0) 06/24/16 06:31 Lymph # 2.9 K/uL (1.0-4.3) 06/24/16 06:31 Harvey # 1.4 K/uL (0.0-0.8) H 06/24/16 06:31 Eos # 1.0 K/uL (0.0-0.7) H 06/24/16 06:31 Baso # 0.1 K/uL (0.0-0.2) 06/24/16 06:31 Neutrophils % (Manual) 49 % (50-75) L 06/20/16 07:13 Band Neutrophils % 9 % (0-2) H 06/20/16 07:13 Lymphocytes % (Manual) 25 % (20-40) 06/20/16 07:13 Reactive Lymphs % 1 % (0-0) H 06/20/16 07:13 Monocytes % (Manual) 5 % (0-10) 06/20/16 07:13 Eosinophils % (Manual) 9 % (0-4) H 06/20/16 07:13 Basophils % (Manual) 1 % (0-2) 06/20/16 07:13 Metamyelocytes % 1 % (0-0) H 06/20/16 07:13 Differential Comment 06/22/16 11:35 Toxic Granulation Present 06/05/16 06:28 Platelet Estimate Normal (NORMAL) 06/20/16 07:13 Large Platelets Present 06/20/16 07:13 Giant Platelets Present 05/26/16 13:54 RBC Morphology Normal 05/27/16 07:46 Polychromasia Slight 06/07/16 05:53 Hypochromasia (manual) Slight 06/05/16 06:28 Poikilocytosis (manual Slight 06/20/16 07:13 Basophilic Stippling Slight 06/20/16 07:13 Anisocytosis (manual) Slight 06/20/16 07:13 Target Cells Slight 06/07/16 05:53 Tear Drop Cells Slight 06/07/16 05:53 [place] Cells Slight 06/02/16 06:46 Smear Path Review 05/26/16 13:54 PT 14.2 SECONDS (9.7-12.2) H 06/19/16 09:51 INR 1.3 06/19/16 09:51 APTT 63 SECONDS (21-34) H 06/19/16 09:51 Factor V see note (()) 05/29/16 06:04 Puncture Site Rr 06/12/16 04:30 pCO2 56 mm/Hg (35-45) H 06/12/16 04:30 pO2 87 mm/Hg (80-100) 06/12/16 04:30 HCO3 31.9 mmol/L (21-28) H 06/12/16 04:30 ABG pH 7.41 (7.35-7.45) 06/12/16 04:30 ABG Total CO2 37.2 mmol/L (22-28) H 06/12/16 04:30 ABG O2 Saturation 98.0 % (95-98) 06/12/16 04:30 ABG Base Excess 9.0 mmol/L (-2.0-3.0) H 06/12/16 04:30 ABG Hemoglobin 12.6 g/dL (11.7-17.4) 06/12/16 04:30 ABG Carboxyhemoglobin 2.1 % (0.5-1.5) H 06/12/16 04:30 POC ABG HHb (Measured) 1.9 % (0.0-5.0) 06/12/16 04:30 ABG Methemoglobin 1.1 % (0.0-3.0) 06/12/16 04:30 Philippe Test Pos 06/12/16 04:30 ABG Potassium 6.5 mmol/L (3.6-5.2) H* 06/04/16 09:58 VBG pH 7.34 (7.32-7.43) 05/25/16 16:30 VBG pCO2 57 mmHg (40-60) 05/25/16 16:30 VBG HCO3 26.1 mmol/L 05/25/16 16:30 VBG Total CO2 32.5 mmol/L (22-28) H 05/25/16 16:30 VBG O2 Sat (Calc) 46.4 % (40-65) 05/25/16 16:30 VBG Base Excess 3.5 mmol/L (0.0-2.0) H 05/25/16 16:30 VBG Potassium 5.7 mmol/L (3.6-5.2) H 05/25/16 16:30 A-a O2 Difference 128.0 mm/Hg 06/12/16 04:30 Respiratory Index 1.5 06/12/16 04:30 Hgb O2 Saturation 95.0 % (95.0-98.0) 06/12/16 04:30 Sodium 133.0 mmol/l (132-148) 06/04/16 09:58 Chloride 107.0 mmol/L (98-107) 06/04/16 09:58 Glucose 221 mg/dl (75-110) H 06/04/16 09:58 Lactate 0.8 mmol/L (0.7-2.1) 06/04/16 09:58 Liter Flow 3.0 05/27/16 12:26 Mechanical Rate 24 06/10/16 04:15 FiO2 40.0 % 06/12/16 04:30 Tidal Volume 500 06/10/16 04:15 PEEP 8 06/11/16 05:05 Pressure Support 12 06/12/16 04:30 CPAP 8 06/12/16 04:30 Crit Value Called To md Janae 06/04/16 09:58 Crit Value Called By patrice Weiner,solar field installation crew member 06/04/16 09:58 Crit Value Read Back Y 06/04/16 09:58 Blood Gas Notified Time 1005 06/04/16 09:58 Sodium 140 mmol/L (132-148) 06/24/16 06:31 Potassium 3.6 mmol/L (3.6-5.2) 06/24/16 06:31 Chloride 98 mmol/L (98-107) 06/24/16 06:31 Carbon Dioxide 31 mmol/L (22-30) H 06/24/16 06:31 Anion Gap 15 (10-20) 06/24/16 06:31 BUN 12 mg/dL (9-20) 06/24/16 06:31 Creatinine 1.1 MG/DL (0.8-1.5) 06/24/16 06:31 Est GFR ( Amer) > 60 06/24/16 06:31 Est GFR (Non-Af Amer) > 60 06/24/16 06:31 POC Glucose (mg/dL) 153 mg/dL (65-110) H 06/24/16 16:10 Random Glucose 92 mg/dL (75-110) 06/24/16 06:31 Hemoglobin A1c 11.8 % (4.2-6.5) H 06/06/16 06:17 Serum Osmolality 322 mosm/kg (272-300) H 05/29/16 06:04 Calcium 7.8 mg/dl (8.6-10.4) L 06/24/16 06:31 Phosphorus 4.4 mg/dL (2.5-4.5) 06/24/16 06:31 Magnesium 1.6 mg/dL (1.6-2.3) 06/24/16 06:31 Total Bilirubin 0.9 mg/dL (0.2-1.3) 06/24/16 06:31 AST 32 U/L (17-59) 06/24/16 06:31 ALT 35 U/L (21-72) 06/24/16 06:31 Alkaline Phosphatase 171 U/L (38-126) H 06/24/16 06:31 Total Creatine Kinase 40 U/L (55-170) L 06/18/16 11:31 CK-MB (Mass) 2.73 ng/mL (0.0-3.38) 06/18/16 11:31 Troponin I, Quant 0.0150 ng/mL (0.00-0.120) 06/18/16 11:31 Total Protein 5.7 g/dL (6.3-8.3) L 06/24/16 06:31 Albumin 2.7 g/dL (3.5-5.0) L 06/24/16 06:31 Globulin 3.1 gm/dL (2.2-3.9) 06/24/16 06:31 Albumin/Globulin Ratio 0.9 (1.0-2.1) L 06/24/16 06:31 Procalcitonin 0.12 NG/ML (0.19-0.49) L 06/17/16 16:54 PTH Intact Whole Molec 62 pg/mL (14-64) 05/31/16 07:23 Arterial Blood Potassium 6.5 mmol/L (3.6-5.2) H* 06/04/16 09:58 Venous Blood Potassium 5.7 mmol/L (3.6-5.2) H 05/25/16 16:30 Urine Color Yellow (YELLOW) 06/14/16 08:06 Urine Clarity Clear (Clear) 06/14/16 08:06 Urine pH 6.0 (5.0-8.0) 06/14/16 08:06 Ur Specific [place] 1.014 (1.003-1.030) 06/14/16 08:06 Urine Protein 2+ mg/dL (NEGATIVE) H 06/14/16 08:06 Urine Glucose (UA) Normal mg/dL (Normal) 06/14/16 08:06 Urine Ketones Negative mg/dL (NEGATIVE) 06/14/16 08:06 Urine Blood 1+ (NEGATIVE) H 06/14/16 08:06 Urine Nitrate Negative (NEGATIVE) 06/14/16 08:06 Urine Bilirubin Negative (NEGATIVE) 06/14/16 08:06 Urine Urobilinogen Normal mg/dL (0.2-1.0) 06/14/16 08:06 Ur Leukocyte Esterase Neg Mert/uL (Negative) 06/14/16 08:06 Urine WBC (Auto) 2 /hpf (0-5) 06/14/16 08:06 Urine RBC (Auto) < 1 /hpf (0-3) 06/14/16 08:06 Urine WBC Clumps (Auto) Rare /hpf (NONE) H 06/12/16 06:05 Ur Squamous Epith Cells < 1 /hpf (0-5) 06/14/16 08:06 Amorphous Sediment Occ /ul (<OCC) H 05/27/16 11:57 Urine Bacteria Rare (<OCC) 06/14/16 08:06 Hyaline Casts 6-10 /lpf (0-2) H 06/12/16 06:05 Granular Casts (Auto) 8 /lpf (0-1) 06/12/16 06:05 Urine Yeast (Budding) Rare /hpf (NEGATIVE) H 06/14/16 08:06 Urine Osmolality 337 mosm/kg (300-1000) 05/29/16 20:28 Ur Random Creatinine 70.1 mg/dL 05/26/16 20:16 U Random Total Protein 2522 mg/L (50-250) H 05/31/16 12:36 Ur Total Protein 24 Hr 81919 mg/24 h (<150) H 05/31/16 12:36 [id number] Ab >150 JINNY (<=20) H 05/29/16 06:04 Beta-2 GPI IgG Ab 91 SGU (<=20) H 05/29/16 06:04 Beta-2 GPI IgM Ab <9 SMU (<=20) 05/29/16 06:04 Phosphatidylserine IgG >100 U/mL (<10) H 05/29/16 06:04 Phosphatidylserine IgA 83 U/mL (<20) H 05/29/16 06:04 Phosphatidylserine IgM <25 U/mL (<25) 05/29/16 06:04 Anti-Phospholipid Intrp see note (()) 05/29/16 06:04 Anti-Cardiolipin IgG Ab 109 GPL (<=14) H 05/29/16 06:04 Anti-Cardiolipin IgA Ab >150 APL (<=11) H 05/29/16 06:04 Anti-Cardiolipin IgM Ab <12 MPL (<=12) 05/29/16 06:04 C. difficile Ag & Toxin Negative (NEGATIVE) 06/13/16 Unknown Hep Bs Antigen Negative (NEGATIVE) 06/07/16 15:53 Hep Bs Antibody Positive (NEGATIVE) 06/07/16 15:53 Hep B Core IgM Ab Negative (NEGATIVE) 06/07/16 15:53 Hepatitis C Antibody Negative (NEGATIVE) 06/07/16 15:53 Prothrombin Mut Interp see note (()) 05/29/16 06:04 Prothrombin Gene Mutate see note (()) 05/29/16 06:04 Prothromb Gene Review see note (()) 05/29/16 06:04 Blood Type A POSITIVE 06/20/16 07:28 Antibody Screen Negative 06/20/16 07:28 - Hospital Course Hospital Course: Upon hospital admission: 45 year old male with PMHx of COPD, asthma, DM, HN, DVT in RLE, NSTEMI in 01/2016, gallstones, liver cirrhosis, and CKD presents with complaint of aright LE pain and swelling. Pt recently admitted to [facility] and found to have a DVT in his right lower extremity and he was discharged on Xarelto. Pt states that starting yesterday he began to have some swelling in his lower right extremity. However, he states that starting this morning he began to have sharp, shooting pain with a burning sensation as well. The pain got to be too much and he decided to come into the ED. Pt states that nothing relieves the pain and that touching it makes it worse. He states that he has been taking his prescribed medications. He denies any fevers, chest pain , nausea or vomiting. He admits to some chills and night sweats the last couple of nights. He also states that he has some sob but states that it is related to his COPD/asthma. PMD: Brayden Dietz PMHx: COPD, asthma, DM, HN, DVT in RLE, NSTEMI in 01/2016, gallstones, liver cirrhosis, and CKD Surgical Hx: splenectomy Family Hx: Mom- DM Social hx: Previous smoker for 20 years, quit ~5 years ago; denies illicit drug use; denies EtOH use; unemployed Allergies: NKDA During hospital course, the patient was evaluated and treated for the following : (1) Deep vein thrombo of right leg for which Dr. Ortega (Vascular Surgery) was consulted. He performed a thorough risk vs benefit assessment. I initially, the patient was reluctant to have the procedure performed, but after speaking with his family and medical staff, decided to proceed with surgery. Dr. Caba and Dr. Ortega were informed of patient's decision. Prior to respiratory arrest, patient was planned for thrombolysis for Tuesday 06/06. Pt went into acute respiratory failure on 06/05 (was found unresponsive). Chest compressions were started. Patient intubated and transferred to intensive care unit. Heme-oncology (Dr. 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 On 06/20: Patient went to OR with Dr. Ortega to correct ileofemoral thrombosis right iliac vein. Operative findings included partial lysis of clot in right iliac and ivcf placed via left groin. He was tx with Eliquis 5mg bid. (2) Renal insufficiency for which nephrology Dr. Rhoades was consulted, who determined renal function acceptable. Pt started on lasix, ARB agent, and amlodipine. This patient has a hx requiring dialysis, however it was not needed on this admission. (3) Multiple abscess formation for which Infectious disease was consulted, Dr. Marsh. Patient was treated with Zyvox IV (started 06/17) (stop 06/22) and Florastor. (4) Thrombocytopenia since starting Zyvox, with platelets dropping from 97 to 87. Once Zyvox was discontinued, platelet levels stabilized, albeit low. (5) Leg edema (R) due to DVT, pain tx with Percocet 5/325 2 tablets (Morphine and Tyelnol earlier in admission). (6) COPD (chronic obstructive pulmonary disease) tx with Duoneb 3ml prn q6h. (7) Diabetes tx with accu checks and sliding scale. (8) HTN ( hypertension) tx with Aspirin 81mg for cardio protection and Lasix 40mg daily. Upon hospital discharge, the patient was provided with the following instructions: Patient is stable for discharge per Dr. Vargas. Patient should resume all medications as outlined in this document. Additionally, patient should take the new medications listed below (scripts provided). 1. Please make an appointment and follow up within one week with your Primary Doctor, Dr. Zeb Dietz, within one week of discharge. 2. Please make an appointment and follow up within one week with Dr. Ortega ( Surgery) regarding your recent Thrombolysis and IVC filter placement. Dr. Ortega already spoke to you regarding the importance of positioning and wearing your compression stockings. Also, it is very important that you take your anticoagulation (Eliquis 5mg PO BID). 3. Please make an appointment and follow up within one week with Dr. Cornejo ( Hematology/Oncology) regarding your Antiphospholipid Syndrome. Patient should return to ED immediately if symptoms return or worsen. Instructions discussed with patient who understood and agreed. Newly prescribed medications: Eliquis 5mg PO BID #30days ASA 81mg PO daily #30days Lasix 40mg PO daily #30days Losartan 25mg PO daily #30days Amlodipine 5mg PO daily #30days This is a summary of the patient's hospital admission, see chart for comprehensive detail. - Date & Time of H&P Date of H&P: 05/25/16 Time of H&P: 18:46 Discharge Exam - Additional Findings Additional findings: - Constitutional Appears: Well - Head Exam Head Exam: ATRAUMATIC, NORMAL INSPECTION, NORMOCEPHALIC - Eye Exam Eye Exam: EOMI, Normal appearance, PERRL - ENT Exam ENT Exam: Mucous Membranes Moist, Normal Exam - Neck Exam Neck Exam: Full ROM, Normal Inspection. absent: Lymphadenopathy - Respiratory Exam Respiratory Exam: Normal breathing pattern. absent: Respiratory distress, Rhonchi, Wheezes - Cardiovascular Exam Cardiovascular Exam: REGULAR RHYTHM, +S1, +S2, Murmur - GI/Abdominal Exam GI & Abdominal Exam: Soft, Normal Bowel Sounds. absent: Tenderness - Rectal Exam Rectal Exam: NORMAL INSPECTION - Extremities Exam Extremities Exam: Pedal Edema, Tenderness (b/l LE R>L) -RLE WRAP CDI - Back Exam Back Exam: NORMAL INSPECTION - Neurological Exam Neurological Exam: Alert, Awake, CN II-XII Intact, Oriented x3 - Psychiatric Exam Psychiatric exam: Normal Affect, Normal Mood - Skin Skin Exam: Dry, Intact, Normal Color, Warm Discharge Plan - Discharge Medications Prescriptions: Apixaban [Eliquis] 5 mg PO BID 30 Days Aspirin [Aspirin Chewable] 81 mg PO DAILY 30 Days Furosemide [Lasix] 40 mg PO DAILY 30 Days Losartan [Cozaar] 25 mg PO DAILY 30 Days amLODIPine [Norvasc] 5 mg PO DAILY 30 Days - Follow Up Plan Condition: STABLE Disposition: HOME/ ROUTINE Instructions: Deep Venous Thrombosis (DC), Weight Management (DC), Venous Thromboembolism (DC), Peripheral Thrombolysis (DC) Additional Instructions: Patient is stable for discharge per Dr. Vargas. Patient should resume all medications as outlined in this document. Additionally, patient should take the new medications listed below (scripts provided). 1. Please make an appointment and follow up within one week with your Primary Doctor, Dr. Zeb Dietz, within one week of discharge. 2. Please make an appointment and follow up within one week with Dr. Ortega ( Surgery) regarding your recent Thrombolysis and IVC filter placement. Dr. Ortega already spoke to you regarding the importance of positioning and wearing your compression stockings. Also, it is very important that you take your anticoagulation (Eliquis 5mg PO BID). 3. Please make an appointment and follow up within one week with Dr. Cornejo ( Hematology/Oncology) regarding your Antiphospholipid Syndrome. Patient should return to ED immediately if symptoms return or worsen. Instructions discussed with patient who understood and agreed. Newly prescribed medications: Eliquis 5mg PO BID #30days ASA 81mg PO daily #30days Lasix 40mg PO daily #30days Losartan 25mg PO daily #30days Amlodipine 5mg PO daily #30days Referrals: Kin Cornejo MD [Staff Provider] - Kristian Ortega Jr., MD [Staff Provider] - <Rick Vargas - Last Filed: 07/04/16 07:27> Provider - Provider Date of Admission: 05/25/16 17:24 Attending physician: Heaven Guerra DO Consults: 05/25/16 18:06 Vascular Surgery Routine Comment: Consulting Provider: Kristian Ortega Jr. Physician Instructions: Reason For Exam: Right leg pain/swelling/hx of DVT Hospital Course - Lab Results Lab Results: Micro Results 06/20/16 Unknown Naris MRSA Culture (Admit) - Final MRSA NOT DETECTED 06/17/16 18:00 Indwelling Cath Tip Catheter Tip Culture - Final No growth. 06/14/16 Unknown Sputum Gram Stain - Final 06/14/16 Unknown Sputum Sputum Culture - Final NORMAL ORAL HIEN 06/15/16 18:49 Naris MRSA Culture - Final MRSA NOT DETECTED 06/10/16 16:15 Blood-During Dialysis Blood Culture - Final NO GROWTH AFTER 5 DAYS 06/10/16 16:15 Blood-During Dialysis Gram Stain - Final TEST NOT PERFORMED 06/10/16 16:45 Blood-During Dialysis Blood Culture - Final NO GROWTH AFTER 5 DAYS 06/10/16 16:45 Blood-During Dialysis Gram Stain - Final TEST NOT PERFORMED 06/14/16 Unknown Urine,Clean Catch Urine Culture - Final No Growth (<1,000 CFU/ML) 06/13/16 Unknown Urine,Clean Catch Urine Culture - Final No Growth (<1,000 CFU/ML) 06/10/16 04:00 Blood-Venous Blood Culture - Final NO GROWTH AFTER 5 DAYS 06/10/16 04:00 Blood-Venous Gram Stain - Final TEST NOT PERFORMED 06/10/16 04:00 Blood-Venous Blood Culture - Final NO GROWTH AFTER 5 DAYS 06/10/16 04:00 Blood-Venous Gram Stain - Final TEST NOT PERFORMED 06/13/16 Unknown Sputum Gram Stain - Final 06/13/16 Unknown Sputum Sputum Culture - Final 06/11/16 20:15 Urine,[place] Urine Culture - Final Vancomycin Resistant E.faecium 06/10/16 16:00 Trachasp Gram Stain - Final 06/10/16 16:00 Trachasp Sputum Culture - Final NORMAL ORAL HIEN 06/10/16 16:00 Urine Urine Culture - Final Vancomycin Resistant E.faecium 06/04/16 16:47 Blood-Thru Central Line Blood Culture - Final NO GROWTH AFTER 5 DAYS 06/04/16 16:47 Blood-Thru Central Line Gram Stain - Final TEST NOT PERFORMED 06/04/16 16:47 Blood-Thru Central Line Blood Culture - Final NO GROWTH AFTER 5 DAYS 06/04/16 16:47 Blood-Thru Central Line Gram Stain - Final TEST NOT PERFORMED 06/04/16 16:47 Trachasp Gram Stain - Final 06/04/16 16:47 Trachasp Sputum Culture - Final NORMAL ORAL HIEN 06/04/16 08:56 Naris MRSA Culture (Admit) - Final MRSA NOT DETECTED 06/04/16 16:47 Urine,Catheterized Urine Culture - Final No Growth (<1,000 CFU/ML) 05/27/16 08:31 Blood-Venous Blood Culture - Final NO GROWTH AFTER 5 DAYS 05/27/16 08:31 Blood-Venous Gram Stain - Final TEST NOT PERFORMED 05/27/16 08:31 Blood-Venous Blood Culture - Final NO GROWTH AFTER 5 DAYS 05/27/16 08:31 Blood-Venous Gram Stain - Final TEST NOT PERFORMED 05/27/16 11:02 Urine,Clean Catch Urine Culture - Final No Growth (<1,000 CFU/ML) 05/26/16 15:08 Urine,Clean Catch Urine Culture - Final No Growth (<1,000 CFU/ML) Most Recent Lab Values WBC 11.7 K/uL (4.8-10.8) H 06/24/16 06:31 RBC 4.09 Mil/uL (4.40-5.90) L 06/24/16 06:31 Hgb 11.7 g/dL (12.0-18.0) L 06/24/16 06:31 Hct 36.1 % (35.0-51.0) 06/24/16 06:31 MCV 88.3 fL (80.0-94.0) 06/24/16 06:31 MCH 28.7 pg (27.0-31.0) 06/24/16 06:31 MCHC 32.5 g/dL (33.0-37.0) L 06/24/16 06:31 RDW 17.5 % (11.5-14.5) H 06/24/16 06:31 Plt Count 82 K/uL (130-400) L 06/24/16 06:31 MPV 8.6 fL (7.2-11.7) 06/24/16 06:31 Neut % (Auto) 53.7 % (50.0-75.0) 06/24/16 06:31 Lymph % (Auto) 25.0 % (20.0-40.0) 06/24/16 06:31 Harvey % (Auto) 11.7 % (0.0-10.0) H 06/24/16 06:31 Eos % (Auto) 8.4 % (0.0-4.0) H 06/24/16 06:31 Baso % (Auto) 1.2 % (0.0-2.0) 06/24/16 06:31 Neut # 6.3 K/uL (1.8-7.0) 06/24/16 06:31 Lymph # 2.9 K/uL (1.0-4.3) 06/24/16 06:31 Harvey # 1.4 K/uL (0.0-0.8) H 06/24/16 06:31 Eos # 1.0 K/uL (0.0-0.7) H 06/24/16 06:31 Baso # 0.1 K/uL (0.0-0.2) 06/24/16 06:31 Neutrophils % (Manual) 49 % (50-75) L 06/20/16 07:13 Band Neutrophils % 9 % (0-2) H 06/20/16 07:13 Lymphocytes % (Manual) 25 % (20-40) 06/20/16 07:13 Reactive Lymphs % 1 % (0-0) H 06/20/16 07:13 Monocytes % (Manual) 5 % (0-10) 06/20/16 07:13 Eosinophils % (Manual) 9 % (0-4) H 06/20/16 07:13 Basophils % (Manual) 1 % (0-2) 06/20/16 07:13 Metamyelocytes % 1 % (0-0) H 06/20/16 07:13 Differential Comment 06/22/16 11:35 Toxic Granulation Present 06/05/16 06:28 Platelet Estimate Normal (NORMAL) 06/20/16 07:13 Large Platelets Present 06/20/16 07:13 Giant Platelets Present 05/26/16 13:54 RBC Morphology Normal 05/27/16 07:46 Polychromasia Slight 06/07/16 05:53 Hypochromasia (manual) Slight 06/05/16 06:28 Poikilocytosis (manual Slight 06/20/16 07:13 Basophilic Stippling Slight 06/20/16 07:13 Anisocytosis (manual) Slight 06/20/16 07:13 Target Cells Slight 06/07/16 05:53 Tear Drop Cells Slight 06/07/16 05:53 Josey Cells Slight 06/02/16 06:46 Smear Path Review 05/26/16 13:54 PT 14.2 SECONDS (9.7-12.2) H 06/19/16 09:51 INR 1.3 06/19/16 09:51 APTT 63 SECONDS (21-34) H 06/19/16 09:51 Factor V see note (()) 05/29/16 06:04 Puncture Site Rr 06/12/16 04:30 pCO2 56 mm/Hg (35-45) H 06/12/16 04:30 pO2 87 mm/Hg (80-100) 06/12/16 04:30 HCO3 31.9 mmol/L (21-28) H 06/12/16 04:30 ABG pH 7.41 (7.35-7.45) 06/12/16 04:30 ABG Total CO2 37.2 mmol/L (22-28) H 06/12/16 04:30 ABG O2 Saturation 98.0 % (95-98) 06/12/16 04:30 ABG Base Excess 9.0 mmol/L (-2.0-3.0) H 06/12/16 04:30 ABG Hemoglobin 12.6 g/dL (11.7-17.4) 06/12/16 04:30 ABG Carboxyhemoglobin 2.1 % (0.5-1.5) H 06/12/16 04:30 POC ABG HHb (Measured) 1.9 % (0.0-5.0) 06/12/16 04:30 ABG Methemoglobin 1.1 % (0.0-3.0) 06/12/16 04:30 Philippe Test Pos 06/12/16 04:30 ABG Potassium 6.5 mmol/L (3.6-5.2) H* 06/04/16 09:58 VBG pH 7.34 (7.32-7.43) 05/25/16 16:30 VBG pCO2 57 mmHg (40-60) 05/25/16 16:30 VBG HCO3 26.1 mmol/L 05/25/16 16:30 VBG Total CO2 32.5 mmol/L (22-28) H 05/25/16 16:30 VBG O2 Sat (Calc) 46.4 % (40-65) 05/25/16 16:30 VBG Base Excess 3.5 mmol/L (0.0-2.0) H 05/25/16 16:30 VBG Potassium 5.7 mmol/L (3.6-5.2) H 05/25/16 16:30 A-a O2 Difference 128.0 mm/Hg 06/12/16 04:30 Respiratory Index 1.5 06/12/16 04:30 Hgb O2 Saturation 95.0 % (95.0-98.0) 06/12/16 04:30 Sodium 133.0 mmol/l (132-148) 06/04/16 09:58 Chloride 107.0 mmol/L (98-107) 06/04/16 09:58 Glucose 221 mg/dl (75-110) H 06/04/16 09:58 Lactate 0.8 mmol/L (0.7-2.1) 06/04/16 09:58 Liter Flow 3.0 05/27/16 12:26 Mechanical Rate 24 03/24/17 04:15 FiO2 40.0 % 06/12/16 04:30 Tidal Volume 500 06/10/16 04:15 PEEP 8 06/11/16 05:05 Pressure Support 12 06/12/16 04:30 CPAP 8 06/12/16 04:30 Crit Value Called To md Janae 06/04/16 09:58 Crit Value Called By patrice Weiner,solar field installation crew member 06/04/16 09:58 Crit Value Read Back Y 06/04/16 09:58 Blood Gas Notified Time 1005 06/04/16 09:58 Sodium 140 mmol/L (132-148) 06/24/16 06:31 Potassium 3.6 mmol/L (3.6-5.2) 06/24/16 06:31 Chloride 98 mmol/L (98-107) 06/24/16 06:31 Carbon Dioxide 31 mmol/L (22-30) H 06/24/16 06:31 Anion Gap 15 (10-20) 06/24/16 06:31 BUN 12 mg/dL (9-20) 06/24/16 06:31 Creatinine 1.1 MG/DL (0.8-1.5) 06/24/16 06:31 Est GFR ( Amer) > 60 06/24/16 06:31 Est GFR (Non-Af Amer) > 60 06/24/16 06:31 POC Glucose (mg/dL) 153 mg/dL (65-110) H 06/24/16 16:10 Random Glucose 92 mg/dL (75-110) 06/24/16 06:31 Hemoglobin A1c 11.8 % (4.2-6.5) H 06/06/16 06:17 Serum Osmolality 322 mosm/kg (272-300) H 05/29/16 06:04 Calcium 7.8 mg/dl (8.6-10.4) L 06/24/16 06:31 Phosphorus 4.4 mg/dL (2.5-4.5) 06/24/16 06:31 Magnesium 1.6 mg/dL (1.6-2.3) 06/24/16 06:31 Total Bilirubin 0.9 mg/dL (0.2-1.3) 06/24/16 06:31 AST 32 U/L (17-59) 06/24/16 06:31 ALT 35 U/L (21-72) 06/24/16 06:31 Alkaline Phosphatase 171 U/L (38-126) H 06/24/16 06:31 Total Creatine Kinase 40 U/L (55-170) L 06/18/16 11:31 CK-MB (Mass) 2.73 ng/mL (0.0-3.38) 06/18/16 11:31 Troponin I, Quant 0.0150 ng/mL (0.00-0.120) 06/18/16 11:31 Total Protein 5.7 g/dL (6.3-8.3) L 06/24/16 06:31 Albumin 2.7 g/dL (3.5-5.0) L 06/24/16 06:31 Globulin 3.1 gm/dL (2.2-3.9) 06/24/16 06:31 Albumin/Globulin Ratio 0.9 (1.0-2.1) L 06/24/16 06:31 Procalcitonin 0.12 NG/ML (0.19-0.49) L 06/17/16 16:54 PTH Intact Whole Molec 62 pg/mL (14-64) 05/31/16 07:23 Arterial Blood Potassium 6.5 mmol/L (3.6-5.2) H* 06/04/16 09:58 Venous Blood Potassium 5.7 mmol/L (3.6-5.2) H 05/25/16 16:30 Urine Color Yellow (YELLOW) 06/14/16 08:06 Urine Clarity Clear (Clear) 06/14/16 08:06 Urine pH 6.0 (5.0-8.0) 06/14/16 08:06 Ur Specific [place] 1.014 (1.003-1.030) 06/14/16 08:06 Urine Protein 2+ mg/dL (NEGATIVE) H 06/14/16 08:06 Urine Glucose (UA) Normal mg/dL (Normal) 06/14/16 08:06 Urine Ketones Negative mg/dL (NEGATIVE) 06/14/16 08:06 Urine Blood 1+ (NEGATIVE) H 06/14/16 08:06 Urine Nitrate Negative (NEGATIVE) 06/14/16 08:06 Urine Bilirubin Negative (NEGATIVE) 06/14/16 08:06 Urine Urobilinogen Normal mg/dL (0.2-1.0) 06/14/16 08:06 Ur Leukocyte Esterase Neg Mert/uL (Negative) 06/14/16 08:06 Urine WBC (Auto) 2 /hpf (0-5) 06/14/16 08:06 Urine RBC (Auto) < 1 /hpf (0-3) 06/14/16 08:06 Urine WBC Clumps (Auto) Rare /hpf (NONE) H 06/12/16 06:05 Ur Squamous Epith Cells < 1 /hpf (0-5) 06/14/16 08:06 Amorphous Sediment Occ /ul (<OCC) H 05/27/16 11:57 Urine Bacteria Rare (<OCC) 06/14/16 08:06 Hyaline Casts 6-10 /lpf (0-2) H 06/12/16 06:05 Granular Casts (Auto) 8 /lpf (0-1) 06/12/16 06:05 Urine Yeast (Budding) Rare /hpf (NEGATIVE) H 06/14/16 08:06 Urine Osmolality 337 mosm/kg (300-1000) 05/29/16 20:28 Ur Random Creatinine 70.1 mg/dL 05/26/16 20:16 U Random Total Protein 2522 mg/L (50-250) H 05/31/16 12:36 Ur Total Protein 24 Hr 19747 mg/24 h (<150) H 05/31/16 12:36 Tfng-1-Qimoscslmggh Ab >150 JINNY (<=20) H 05/29/16 06:04 Beta-2 GPI IgG Ab 91 SGU (<=20) H 05/29/16 06:04 Beta-2 GPI IgM Ab <9 SMU (<=20) 05/29/16 06:04 Phosphatidylserine IgG >100 U/mL (<10) H 05/29/16 06:04 Phosphatidylserine IgA 83 U/mL (<20) H 05/29/16 06:04 Phosphatidylserine IgM <25 U/mL (<25) 05/29/16 06:04 Anti-Phospholipid Intrp see note (()) 05/29/16 06:04 Anti-Cardiolipin IgG Ab 109 GPL (<=14) H 05/29/16 06:04 Anti-Cardiolipin IgA Ab >150 APL (<=11) H 05/29/16 06:04 Anti-Cardiolipin IgM Ab <12 MPL (<=12) 05/29/16 06:04 C. difficile Ag & Toxin Negative (NEGATIVE) 06/13/16 Unknown Hep Bs Antigen Negative (NEGATIVE) 06/07/16 15:53 Hep Bs Antibody Positive (NEGATIVE) 06/07/16 15:53 Hep B Core IgM Ab Negative (NEGATIVE) 06/07/16 15:53 Hepatitis C Antibody Negative (NEGATIVE) 06/07/16 15:53 Prothrombin Mut Interp see note (()) 05/29/16 06:04 Prothrombin Gene Mutate see note (()) 05/29/16 06:04 Prothromb Gene Review see note (()) 05/29/16 06:04 Blood Type A POSITIVE 06/20/16 07:28 Antibody Screen Negative 06/20/16 07:28 Attending/Attestation - Attestation I have personally seen and examined this patient.: Yes I have fully participated in the care of the patient.: Yes I have reviewed all pertinent clinical information, including history, physical exam and plan: Yes Notes (Text): Medical Attending: Patient was seen and examined by me. This is a patient with an extensive medical history as reported above in the resident note. The patient will need to be on life long anticoagulation with Eliquis due to antiphospholipid syndrome. 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 He has been in acute respiratory failure and has been in the ICU and required temporary HD. While here he has had a lower extremity thrombolysis as well as IVC filter placement. His family members have been faithfully at his bedside while he has been here. Rick Vargas
== END 2016-06-24 19:29 | disposition home or self-care (01) | DRG 581 ==
LOC: C.ER 14:23 → C.9E 17:24 → C.3T 17:49 → C.6T 05-26 17:53 → C.9I 06-04 08:37 → C.5T 06-15 18:46 → C.9I 06-20 16:00
PROVIDERS: ADMIT Hospitalist; ATTEND Hospitalist
PROC: 5A1955Z Respiratory Ventilation, Greater than 96 Consecutive Hours (ICD-10-PCS; 2016-06-04)
PROC: 0BH17EZ Insertion of Endotracheal Airway into Trachea, Via Natural or Artificial Opening (ICD-10-PCS; 2016-06-04)
PROC: 5A1D60Z (ICD-10-PCS; principal; 2016-06-07)
PROC: 05HM33Z Insertion of Infusion Device into Right Internal Jugular Vein, Percutaneous Approach (ICD-10-PCS; 2016-06-09)
PROC: 02HV33Z Insertion of Infusion Device into Superior Vena Cava, Percutaneous Approach (ICD-10-PCS; 2016-06-17)
PROC: 06H03DZ Insertion of Intraluminal Device into Inferior Vena Cava, Percutaneous Approach (ICD-10-PCS; 2016-06-20)
PROC: 06CC3ZZ Extirpation of Matter from Right Common Iliac Vein, Percutaneous Approach (ICD-10-PCS; 2016-06-20)
DX: A41.53 Sepsis due to Serratia (principal); N17.9 Acute kidney failure, unspecified; J96.01 Acute respiratory failure with hypoxia; I74.5 Embolism and thrombosis of iliac artery; J96.02 Acute respiratory failure with hypercapnia; D68.61 Antiphospholipid syndrome; E11.22 Type 2 diabetes mellitus with diabetic chronic kidney disease; I13.0 Hypertensive heart and chronic kidney disease with heart failure and stage 1 through stage 4 chronic kidney disease, or unspecified chronic kidney disease; I50.9 Heart failure, unspecified; D69.6 Thrombocytopenia, unspecified; N18.3 Chronic kidney disease, stage 3 (moderate); L03.115 Cellulitis of right lower limb; K74.60 Unspecified cirrhosis of liver; E87.6 Hypokalemia; E87.5 Hyperkalemia; Z68.42 Body mass index [BMI] 45.0-49.9, adult; Z99.2 Dependence on renal dialysis; Z79.4 Long term (current) use of insulin; Z87.01 Personal history of pneumonia (recurrent); Z91.19 Patient's noncompliance with other medical treatment and regimen; Z87.891 Personal history of nicotine dependence; I25.2 Old myocardial infarction; I25.10 Atherosclerotic heart disease of native coronary artery without angina pectoris

== ENCOUNTER 2016-10-14 08:44 | Inpatient (IN) | payer MEDICAID ==
[2016-10-14 08:52] VITALS: BMI 44.6
[2016-10-14] MEDS ORDERED: Albuterol-Ipratrop 3 mg / 0.5 (3 ml) UD ONE ×2 (09:07→09:54)
[2016-10-14 09:32] LABS: VENOUS BLOOD GAS BASE EXCESS -3.3 mmol/L (0.0-2.0); VENOUS BLOOD GAS PCO2 53 mmHg (40-60); VENOUS BLOOD PH 7.27 (7.32-7.43)
[2016-10-14] MEDS ORDERED: Albuterol-Ipratrop 3 mg / 0.5 (3 ml) UD INH STA ×2 (09:36→09:48)
[2016-10-14 09:37] LABS: BASO % 0.2 % (0.0-2.0); EOS # 2.9 K/uL (0.0-0.7); HEMATOCRIT 44.3 % (35.0-51.0); LYMPH % 10.5 % (20.0-40.0); MEAN CELL VOLUME 89.8 fL (80.0-94.0); MEAN CORPUSCULAR HEMOGLOBIN 28.4 pg (27.0-31.0); MEAN CORPUSCULAR HGB CONC 31.7 g/dL (33.0-37.0); MEAN PLATELET VOLUME 10.4 fL (7.2-11.7); MONO # 1.1 K/uL (0.0-0.8); MONO % 5.6 % (0.0-10.0); NRBC % 0.2 % (0.0-2.0); RED CELL DISTRIBUTION WIDTH 14.3 % (11.5-14.5)
[2016-10-14] MEDS ORDERED: Piperacill/Tazo 3.375gm in Dex 3.375 GM/50 ML BAG IVPB STA (09:43)
[2016-10-14 09:48] LABS: BILIRUBIN,TOTAL 0.9 mg/dL (0.2-1.3); POTASSIUM 5.5 mmol/L (3.6-5.2)
[2016-10-14 09:49] LABS: ALB/GLOB RATIO 0.9 (1.0-2.1); CALCIUM 7.9 mg/dl (8.6-10.4); MAGNESIUM 1.9 mg/dL (1.6-2.3); TOTAL PROTEIN 6.9 g/dL (6.3-8.3)
[2016-10-14] MEDS ORDERED: Piperacillin/Tazobact 3.375 gm 100 ML IVPB ONE (09:57)
[2016-10-14 09:59] LABS: TROPONIN I 0.025 ng/mL (0.00-0.120)
[2016-10-14] MEDS ORDERED: Piperacill/Tazo 2.25gm in Dex 2.25 GM/50 ML BAG IVPB STA (10:07)
--- NOTE | 2016-10-14 10:14 | RAD ---
HISTORY: Shortness of breath. COMPARISON: 06/06/2016, 06/12/2016 TECHNIQUE: Chest PA and lateral FINDINGS: LUNGS: Interstitial lung disease persistent. No discrete focal infiltrates, nodules or masses. PLEURA: No significant pleural effusion identified. No pneumothorax apparent. CARDIOVASCULAR: Cardiomegaly, cephalization of pulmonary vasculature. OSSEOUS STRUCTURES: No significant abnormalities. VISUALIZED UPPER ABDOMEN: Normal. OTHER FINDINGS: Removal of support apparatus since the prior study: Endotracheal tube. IMPRESSION: Cardiomegaly, increased interstitial markings likely interstitial/ cardiogenic edema. Signed report
--- NOTE | 2016-10-14 10:26 | C.PDOC ---
History Of Present Illness 46 year old male presents to the emergency department with complaints of right ear pain and shortness of breath for four days. Patient notes a history of diabetes, HTN, asthma, CHF, and DVT. He states he is using his nebulizer treatment at home more frequently. Patient denies fever, chills, cough, or chest pain. pt was intubated several months ago. Chief Complaint (Nursing): Shortness Of Breath History Per: Patient History/Exam Limitations: no limitations Onset/Duration Of Symptoms: Days (4 days ) Current Symptoms Are (Timing): Still Present Current Respiratory Medications: Other (nebulizer treatment ) Associated Symptoms: denies: Fever, Chills, Chest Pain, Bloody Cough, Productive Cough Recent travel outside of the [place]: No Additional History Per: Prior Records Past Medical History Reviewed: Historical Data, Nursing Documentation, Vital Signs Vital Signs: Last Vital Signs Temp 97.9 F 10/14/16 08:54 Pulse 97 H 10/14/16 09:54 Resp 22 10/14/16 09:54 BP 96/53 L 10/14/16 09:54 Pulse Ox 95 10/14/16 10:59 - Medical History PMH: Asthma, CHF, COPD, Diabetes, Deep Vein Thrombosis, HTN, Hyperlipidemia, Pneumonia (2016) - [facility] Procedures DRAINAGE OF SPINAL CANAL, PERCUTANEOUS APPROACH, DIAGNOSTIC (05/03/15) EXTIRPATION OF MATTER FROM R COM ILIAC VEIN, PERC APPROACH (05/25/16) INSERT INFUSION DEV IN R INT JUGULAR VEIN, PERC (05/25/16) INSERTION OF ENDOTRACHEAL AIRWAY INTO TRACHEA, VIA OPENING (05/25/16) INSERTION OF INFUSION DEV INTO R FEMOR VEIN, PERC APPROACH (01/25/16) INSERTION OF INFUSION DEV INTO SUP VENA CAVA, PERC APPROACH (05/25/16) INSERTION OF INTRALUM DEV INTO INF VENA CAVA, PERC APPROACH (05/25/16) PERFORMANCE OF URINARY FILTRATION, MULTIPLE (05/25/16) RESPIRATORY VENTILATION, GREATER THAN 96 CONSECUTIVE HOURS (05/25/16) TETANUS TOXOID ADMINIST (07/19/13) Family History: States: Unknown Family Hx, Diabetes - Social History Hx Tobacco Use: No Hx Alcohol Use: No Hx Substance Use: No - Immunization History Hx Tetanus Toxoid Vaccination: Yes (07/19/13) Hx Influenza Vaccination: No (egg allergy) Hx Pneumococcal Vaccination: No Review Of Systems Constitutional: Negative for: Fever, Chills ENT: Positive for: Ear Pain (right ear pain ) Cardiovascular: Negative for: Chest Pain Respiratory: Positive for: Shortness of Breath. Negative for: Cough Gastrointestinal: Negative for: Nausea, Vomiting, Abdominal Pain, Diarrhea Neurological: Negative for: Weakness, Numbness Physical Exam - Physical Exam Appears: Non-toxic, No Acute Distress, Other (Patient is speaking in short full sentences) Skin: Warm, Dry Head: Atraumatic, Other (No mastoid tenderness) Eye(s): bilateral: Normal Inspection, PERRL, EOMI Ear(s): Left: Normal, Right: TM Erythema (Right canal moist with white debris, some erythema, tm not well visualized) Oral Mucosa: Moist Neck: Normal ROM, Supple Chest: Symmetrical, No Deformity Cardiovascular: Rhythm Regular, No Murmur, Other (Tachycardic ) Respiratory: No Stridor, Wheezing (bilateral faint expiratory wheezing ), Other (bibasilar crackles ) Gastrointestinal/Abdominal: Soft, No Tenderness, No Distention, No Guarding, No Rebound, Other (Abdomen obese ) Extremity: Normal ROM, No Tenderness, No Calf Tenderness, Capillary Refill ( good capillary refill, less than 2 seconds ), Other (Mild pitting edema in the right leg ) Neurological/Psych: Oriented x3, Normal Speech, Normal Cognition, Normal Cranial Nerves, Normal Motor, Normal Sensation ED Course And Treatment - Laboratory Results Result Diagrams: 10/14/16 09:30 10/14/16 09:30 O2 Sat by Pulse Oximetry: 95 (room air ) - Radiology CXR: Viewed By Me, Read By Radiologist CXR Interpretation: Yes: Other. No: Infiltrates Progress Note: CXR Interpretation: LUNGS: Interstitial lung disease persistent. No discrete focal infiltrates, nodules or masses. PLEURA: No significant pleural effusion identified. No pneumothorax apparent. CARDIOVASCULAR: Cardiomegaly, cephalization of pulmonary vasculature. OSSEOUS STRUCTURES: No significant abnormalities. VISUALIZED UPPER ABDOMEN: Normal. OTHER FINDINGS: Removal of support apparatus since the prior study: Endotracheal tube. IMPRESSION: Cardiomegaly, increased interstitial markings likely interstitial/ cardiogenic edema. Signed report Medical Decision Making Medical Decision Making: pt with wheezing and crackles; will work up for asthma, chf- labs, o2, ekg cxr neb tx , steroids. pt also with right otitis media; will give antibiotics. discussed with Dr Long, will admit to his service on tele. Disposition Discussed With .: Dae Long Doctor Will See Patient In The: Hospital Counseled Patient/Family Regarding: Studies Performed - Disposition Disposition: HOSPITALIZED Disposition Time: 10:57 Condition: STABLE - Clinical Impression Clinical Impression: Asthma exacerbation, CHF (congestive heart failure), Otitis externa of right ear, Renal failure - Scribe Statement The provider has reviewed the documentation as recorded by the Scribe Andree Butler All medical record entries made by the Scribe were at my direction and personally dictated by me. I have reviewed the chart and agree that the record accurately reflects my personal performance of the history, physical exam, medical decision making, and the department course for this patient. I have also personally directed, reviewed, and agree with the discharge instructions and disposition. Decision To Admit - Pt Status Changed To: Hospital Disposition Of: Inpatient - Admit Certification Admit to Inpatient:: After my assessment, the patient will require hospitalization for at least two midnights. This is because of the severity of symptoms shown, intensity of services needed, and/or the medical risk in this patient being treated as an outpatient. - InPatient: Physician Admission Certification: I certify that this patient requires 2 or more midnights of care for the following reason:: for stabilization of asthma and chf - . Bed Request Type: Telemetry Patient Diagnosis: Asthma exacerbation, CHF (congestive heart failure), Otitis externa of right ear, Renal failure
[2016-10-14 11:52] LABS: RBC URINE 1 /hpf (0-3); URINE BACTERIA RARE (<OCC); URINE BILIRUBIN NEGATIVE (NEGATIVE); URINE BLOOD NEGATIVE (NEGATIVE); URINE COLOR Yellow (YELLOW); URINE GLUCOSE (UA) NORMAL (Normal); URINE HYALINE CAST >20 /lpf (0-2); URINE KETONE NEGATIVE (NEGATIVE); URINE LEUKOCYTE ESTERASE NEG Leu/uL (Negative); URINE PROTEIN 2+ mg/dL (NEGATIVE); URINE UROBILINOGEN NORMAL mg/dL (0.2-1.0); WBC URINE 3 /hpf (0-5)
[2016-10-14] MEDS: MethylPREDNISolone 40 mg Vial IVP SCH (12:49)
[2016-10-14] MEDS ORDERED: cefTRIAXone IV 1 gm in Dextros 50 ML IVPB ONE (12:53)
--- NOTE | 2016-10-14 14:44 | CT ---
PROCEDURE: CT Chest without contrast HISTORY: pneumonia COMPARISON: Chest CT 05/11/2016. TECHNIQUE: Contiguous axial images were obtained through the chest without intravenous contrast enhancement. Sagittal and coronal reconstructions were performed. Radiation dose (DLP): 895 mGy-cm. This CT exam was performed using one or more of the following dose reduction techniques: Automated exposure control, adjustment of the mA and/or kV according to patient size, and/or use of iterative reconstruction technique. FINDINGS: LUNGS: Interstitial markings remain increased with multifocal ground-glass opacity scattered throughout all lobes including somewhat nodular opacities at the left greater than right upper lobes. Bronchiectasis identified in the bilateral lower lobes SC slightly increased in the interval. Overall pattern is one of chronic interstitial pulmonary disease without interval increase appreciated in overall pulmonary opacity. Underlying alveolitis at the bilateral lower lobes and minimally at the upper lobes is not completely excluded though pulmonary opacity is felt to be interstitial related. MEDIASTINUM: Unremarkable thoracic aorta. No aneurysm. Cardiomegaly and pulmonary arterial hypertension are again identified though mild with the pulmonary slightly greater than the thoracic aorta and caliber. No definite pleural or pericardial effusion. Persistent preaortic, peritracheal and subcarinal lymphadenopathy is identified with mild bilateral hilar adenopathy not excluded given lack of intravenous contrast. PLEURA: No pleural fluid. No pneumothorax. BONES: Mild multilevel thoracic spondylosis is again appreciated. UPPER ABDOMEN: Cholelithiasis. Tiny hepatic granuloma again identified at the medial right lobe OTHER FINDINGS: None. IMPRESSION: 1. Chronic interstitial pulmonary disease is again appreciated with somewhat reticular nodular component increase of the bladder apices slightly. No definitive alveolitis pleural or pericardial effusion. Lack axis appears slightly increased in the bilateral bases. 2. Mediastinal lymphadenopathy again appreciated without significant interval change. Bilateral hilar adenopathy remains likely but is poorly evaluated due to lack of intravenous contrast. 3. Incidental cholelithiasis.
[2016-10-14] MEDS ORDERED: Tramadol 25 mg PO PRN (14:47)
[2016-10-14] MEDS: Albuterol-Ipratrop 3 mg / 0.5 (3 ml) UD INH PRN ×2 (15:56→19:39)
[2016-10-14] MEDS: Ofloxacin 0.3% Otic Soln AU SCH (21:15)
[2016-10-14] MEDS: Insulin Detemir 100 units/ml Vial (Levemir) SC SCH (21:16)
[2016-10-14] MEDS: Fluticasone-Salmeterol 250-50mcg Diskus IH SCH (21:16)
--- NOTE | 2016-10-14 21:28 | CP.PCM.HP ---
History of Present Illness - History of Present Illness History of Present Illness: Chief complaint: Right ear pain History present illness: 46-year-old male with history of COPD bronchial asthma diabetes hypertension DVT on anticoagulation pain History of liver cirrhosis, renal insufficiency. Patient came to the emergency room because of the right leg pain and shortness of breath. 2 weeks patient is complaining of increasing cough, and associated, and wheezing , and shortness of breath. He also having chills and feverish. Cough associated with mucus production. Denies any chest pain. But otherwise is doing well. Patient will currently using the nebulizer at home. He is not using any oxygen or BiPAP Past medical history as noted above. Surgical history splenectomy Family history diabetes. Social history: 85 years ago used to be a smoker heavy. No known drug allergy Review of system: Currently having headache, also complaining of right ear pain, minimal shortness of breath noted, cough present, but no wheezing noted. Complaining of bilateral leg swelling. Blood sugar is elevated Vital signs reviewed No neck vein distention noted Chest good air entry bilaterally, no wheezing or rales noted CVS regular heart sound, no murmur noted Abdomen soft, nontender. 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 BUN/creatinine elevated. But stable otherwise. Assessment and recommendation: 45-year-old male with multiple medical history including COPD asthma diabetes hypertension DVT history of [place] in the past and liver cirrhosis and. Patient possibly has upset sleep apnea. renal insufficiency, Now possibly admitted with the upper respiratory tract infection, and associated pneumonia. Renal insufficiency chronic. Right ear external otitis. We will get ENT evaluation. Corticosteroids and intravenous, antibiotic. Oxygen BiPAP and will follow the patient. Glucose control, currently on anticoagulation. Will follow the patient Present on Admission - Present on Admission Any Indicators Present on Admission: No History of DVT/PE: No History of Uncontrolled Diabetes: No Urinary Catheter: No Decubitus Ulcer Present: No Past Patient History - Infectious Disease Hx of Infectious Diseases: None - Past Medical History & Family History Past Medical History?: Yes - Past Social History Smoking Status: Former Smoker - CARDIAC Hx Congestive Heart Failure: Yes Hx Hypertension: Yes - PULMONARY Hx Asthma: Yes Hx Chronic Obstructive Pulmonary Disease (COPD): Yes Hx Pneumonia: Yes (2015) - NEUROLOGICAL Hx Neurological Disorder: Yes Other/Comment: c/o headache on admission, spinal tap attempted to remove spinal fluid. becuase of immobility developed DVT. at the time. right leg. - HEENT Hx HEENT Problems: No - RENAL Hx Chronic Kidney Disease: No - ENDOCRINE/METABOLIC Hx Diabetes Mellitus Type 1: Yes - HEMATOLOGICAL/ONCOLOGICAL Hx Blood Disorders: No - INTEGUMENTARY Hx Dermatological Problems: Yes Hx Cellulitis: Yes - MUSCULOSKELETAL/RHEUMATOLOGICAL Hx Musculoskeletal Disorders: No Hx Falls: No - GASTROINTESTINAL Hx Gastrointestinal Disorders: No - GENITOURINARY/GYNECOLOGICAL Hx Genitourinary Disorders: No - PSYCHIATRIC Hx Substance Use: No - SURGICAL HISTORY Hx Surgeries: Yes Hx Splenectomy: Yes (3 years ago) Hx Vascular Access Device: Yes (HX INGUINAL PERMA CATH) - ANESTHESIA Hx Anesthesia: Yes Hx Anesthesia Reactions: No Hx Malignant Hyperthermia: No Meds Allergies/Adverse Reactions: Allergies Allergy/AdvReac Type Severity Reaction Status Date / Time EGG Allergy Intermediate RASH Verified 10/14/16 08:51 Results - Vital Signs Recent Vital Signs: Last Vital Signs Temp 98.2 F 10/14/16 16:00 Pulse 82 10/14/16 16:00 Resp 20 10/14/16 16:00 BP 112/67 10/14/16 16:00 Pulse Ox 95 10/14/16 19:08 - Labs Result Diagrams: 10/14/16 09:30 10/14/16 09:30 Labs: Laboratory Results - last 24 hr 10/14/16 11:40 Urine Color Yellow Urine Clarity Hazy Urine pH 5.0 Ur Specific [place] 1.015 Urine Protein 2+ H Urine Glucose (UA) Normal Urine Ketones Negative Urine Blood Negative Urine Nitrate Negative Urine Bilirubin Negative Urine Urobilinogen Normal Ur Leukocyte Esterase Neg Urine WBC (Auto) 3 Urine RBC (Auto) 1 Ur Squamous Epith Cells 1 Urine Bacteria Rare Hyaline Casts >20 H
--- NOTE | 2016-10-15 04:27 | CON ---
DATE: 10/14/2016 REASON FOR CONSULTATION: Right ear pain. REFERRING PHYSICIAN: Dr. Long. HISTORY: This is a 46-year-old male, who has been having right ear pain and hearing loss for the past 3 days that is moderate in intensity and constant. There is no ringing. PAST MEDICAL HISTORY: As noted in the chart by me. MEDICATIONS: As noted in the chart by me. PHYSICAL EXAMINATION: HEAD: atraumatic, normocephalic. FACE: Good facial movements bilaterally. CONSTITUTIONAL: Well fed and well nourished. EXTERNAL NOSE AND EARS: No masses. No lesions. No erythema. No edema. INTERNAL NOSE: Deviated septum. No masses. No lesions. No erythema. No edema. EARS: There is discharge in the right ear canal. The TM cannot be fully visualized. There is mild edema and erythema of the ear canal. ORAL CAVITY AND OROPHARYNX: No masses. No lesions. No erythema. No edema. LIPS AND GUMS: No masses. No lesions. No erythema. No edema. ASSESSMENT: 1. Hearing loss. 2. Ear pain. 3. Deviated septum PLAN: Otitis externa/possible mastoiditis. The mastoiditis is only possible since the TM cannot be visualized. There is drainage in the ear; however, there is minimal edema and erythema of the ear canal. Therefore, we will obtain a CT of the temporal bones just to make sure that there is no mastoiditis. At bedside can not check TM. Therefore, CT must be obtained to rule out mastoiditis. In the meantime, I will make sure the patient is on ear drops. We will start the patient on Floxin. Hector Turner MD MTDD
[2016-10-15 06:20] LABS: BASO # 0.1 K/uL (0.0-0.2); BASO % 0.5 % (0.0-2.0); EOS # 0.1 K/uL (0.0-0.7); EOS % 0.2 % (0.0-4.0); HEMATOCRIT 42.8 % (35.0-51.0); LYMPH # 0.9 K/uL (1.0-4.3); LYMPH % 3.4 % (20.0-40.0); MEAN CELL VOLUME 91.1 fL (80.0-94.0); MEAN CORPUSCULAR HGB CONC 31.8 g/dL (33.0-37.0); MONO # 0.8 K/uL (0.0-0.8); NRBC % 0.1 % (0.0-2.0); PLATELET COUNT 266 K/uL (130-400); RED CELL DISTRIBUTION WIDTH 14.6 % (11.5-14.5); WHITE BLOOD COUNT 27.7 K/uL (4.8-10.8)
[2016-10-15 06:33] LABS: ALB/GLOB RATIO 0.9 (1.0-2.1); BILIRUBIN,TOTAL 0.5 mg/dL (0.2-1.3); TOTAL PROTEIN 7.2 g/dL (6.3-8.3)
[2016-10-15 06:34] LABS: CALCIUM 8.3 mg/dl (8.6-10.4)
[2016-10-15 06:39] LABS: POTASSIUM 6.2 mmol/L (3.6-5.2)
[2016-10-15] MEDS ORDERED: (Novolin R) Insulin Human Regular 100 units/ml vial IV ONE (06:47)
[2016-10-15] MEDS ORDERED: Sod Polystyrene Sulf 15 gm/60 ml Oral Susp PO ONE ×2 (06:47→20:00)
[2016-10-15] MEDS ORDERED: Albuterol-Ipratrop 3 mg / 0.5 (3 ml) UD INH STA (06:47)
[2016-10-15 07:33] LABS: RBC URINE 2 /hpf (0-3); URINE BILIRUBIN NEGATIVE (NEGATIVE); URINE BLOOD NEGATIVE (NEGATIVE); URINE COLOR Yellow (YELLOW); URINE GLUCOSE (UA) 2+ mg/dL (Normal); URINE KETONE NEGATIVE (NEGATIVE); URINE LEUKOCYTE ESTERASE NEG Leu/uL (Negative); URINE PROTEIN 2+ mg/dL (NEGATIVE); URINE UROBILINOGEN NORMAL mg/dL (0.2-1.0); WBC URINE 4 /hpf (0-5)
[2016-10-15] MEDS: Fluticasone-Salmeterol 250-50mcg Diskus IH SCH (07:57)
[2016-10-15 08:42] LABS: NEUTROPHIL 87 % (50-75); TOTAL CELLS COUNTED 100
[2016-10-15 08:54] LABS: LARGE PLATELETS PRESENT
[2016-10-15] MEDS: MethylPREDNISolone 40 mg Vial IVP SCH (09:12)
[2016-10-15] MEDS: Insulin Detemir 100 units/ml Vial (Levemir) SC SCH ×2 (09:14→22:07)
[2016-10-15] MEDS: Ofloxacin 0.3% Otic Soln AU SCH ×2 (09:59→17:07)
--- NOTE | 2016-10-15 10:04 | CP.PCM.CON ---
History of Present Illness - History of Present Illness History of Present Illness: 46-year-old male with history of COPD, bronchial asthma, diabetes, hypertension , DVT on anticoagulation, history of liver cirrhosis, chronic renal insufficiency, presented to the emergency room for right ear pain and shortness of breath for approx. one wek time. Reports increasing dry cough, and associated wheezing not relieved by nebulizer. He is also having chills and low fever. Generalized weakness and fatigue reported. History of diabetes over 10 years without retinopathy History of hypertension over 10 years, controlled with current medications Patient reports history of CKD, stage and etiology unclear to patient. He has required dialysis x 2 treatments for HENRIQUE in setting of new dvt diagnosed at hospital Past medical history as noted above. Surgical history splenectomy and IVC filter Family history diabetes, no renal diseaes in family Social history: Quit tobacco No known drug allergy Review of Systems - Constitutional Constitutional: Fatigue, Headache, Malaise, Weakness - EENT Eyes: absent: Diplopia, Loss of Vision Ears: Ear Pain. absent: Ear Discharge, Disequilibrium Nose/Mouth/Throat: Nasal Congestion, Dry Mouth. absent: Sinus Pain, Sore Throat - Cardiovascular Cardiovascular: Dyspnea, Leg Edema. absent: Chest Pain, Orthopnea, Palpitations - Respiratory Respiratory: Cough, Wheezing - Gastrointestinal Gastrointestinal: absent: Abdominal Pain, Diarrhea, Heartburn - Genitourinary Genitourinary: absent: Hematuria, Nocturia, Urinary Hesitance, Freq UTI - Musculoskeletal Musculoskeletal: absent: Muscle Cramps, Muscle Weakness, Neck Pain - Integumentary Integumentary: absent: Pruritus, Rash, Skin Pain - Neurological Neurological: Headaches. absent: Memory Loss, Syncope, Tremor - Psychiatric Psychiatric: absent: Confusion, Depression - Endocrine Endocrine: absent: Flushing, Heat Intolorance, Polyuria Past Patient History - Infectious Disease Hx of Infectious Diseases: None - Past Medical History & Family History Past Medical History?: Yes - Past Social History Smoking Status: Former Smoker - CARDIAC Hx Congestive Heart Failure: Yes Hx Hypertension: Yes - PULMONARY Hx Asthma: Yes Hx Chronic Obstructive Pulmonary Disease (COPD): Yes Hx Pneumonia: Yes (2015) Other/Comment: CKD/HENRIQUE requiring dialysis - NEUROLOGICAL Hx Neurological Disorder: Yes Other/Comment: c/o headache on admission, spinal tap attempted to remove spinal fluid. becuase of immobility developed DVT. at the time. right leg. - HEENT Hx HEENT Problems: No - RENAL Hx Chronic Kidney Disease: Yes Hx Dialysis: Yes (x2 treatments) - ENDOCRINE/METABOLIC Hx Diabetes Mellitus Type 2: Yes - HEMATOLOGICAL/ONCOLOGICAL Hx Blood Disorders: No - INTEGUMENTARY Hx Dermatological Problems: Yes Hx Cellulitis: Yes - MUSCULOSKELETAL/RHEUMATOLOGICAL Hx Musculoskeletal Disorders: No Hx Falls: No - GASTROINTESTINAL Hx Gastrointestinal Disorders: No - GENITOURINARY/GYNECOLOGICAL Hx Genitourinary Disorders: No - PSYCHIATRIC Hx Substance Use: No - SURGICAL HISTORY Hx Surgeries: Yes Hx Splenectomy: Yes (3 years ago) Hx Vascular Access Device: Yes (HX INGUINAL PERMA CATH) - ANESTHESIA Hx Anesthesia: Yes Hx Anesthesia Reactions: No Hx Malignant Hyperthermia: No Meds Allergies/Adverse Reactions: Allergies Allergy/AdvReac Type Severity Reaction Status Date / Time EGG Allergy Intermediate RASH Verified 10/14/16 08:51 - Medications Medications: Current Medications Albuterol/Ipratropium (Duoneb 3 Mg/0.5 Mg (3 Ml) Ud) 3 ml INH RQ6 PRN PRN Reason: Shortness of Breath Last Admin: 10/14/16 19:39 Dose: 3 ml Apixaban (Eliquis) 5 mg PO BID [facility] Last Admin: 10/15/16 09:14 Dose: 5 mg Aspirin (Aspirin Chewable) 81 mg PO DAILY [facility] Last Admin: 10/15/16 09:13 Dose: 81 mg Furosemide (Lasix) 40 mg PO DAILY [facility] Last Admin: 10/15/16 09:13 Dose: 40 mg Ceftriaxone Sodium 1 gm/ (Sodium Chloride) 100 mls @ 200 mls/hr IVPB DAILY [facility] Last Admin: 10/15/16 09:12 Dose: 200 mls/hr Insulin Detemir (Levemir) 15 unit SC Q12 [facility] Last Admin: 10/15/16 09:14 Dose: 15 unit Methylprednisolone (Solu-Medrol) 40 mg IVP DAILY [facility] Last Admin: 10/15/16 09:12 Dose: 40 mg Montelukast Sodium (Singulair) 10 mg PO [facility] Last Admin: 10/14/16 21:16 Dose: 10 mg Ofloxacin (Floxin 0.3% Otic Soln) 0.5 ml AU BID [facility] Last Admin: 10/14/16 21:15 Dose: 1 drop Rosuvastatin Calcium (Crestor) 20 mg PO [facility] Last Admin: 10/14/16 21:16 Dose: 20 mg Fluticasone/Salmeterol (Advair Diskus 250/50) 1 puff IH RQ12 [facility] Last Admin: 10/15/16 07:57 Dose: 1 puff Tramadol HCl (Ultram) 25 mg PO TID PRN PRN Reason: Pain, moderate (4-7) Last Admin: 10/14/16 15:00 Dose: 25 mg Physical Exam - Constitutional Appears: Well, Non-toxic, No Acute Distress - Head Exam Head Exam: ATRAUMATIC, NORMAL INSPECTION - Eye Exam Eye Exam: EOMI, Normal appearance - ENT Exam ENT Exam: Mucous Membranes Moist, Normal Oropharynx - Respiratory Exam Respiratory Exam: Rhonchi, Wheezes - Cardiovascular Exam Cardiovascular Exam: +S1, +S2. absent: JVD - GI/Abdominal Exam GI & Abdominal Exam: Normal Bowel Sounds, Soft. absent: Tenderness - Extremities Exam Extremities exam: Positive for: normal inspection, pedal edema. Negative for: tenderness - Back Exam Back exam: absent: CVA tenderness (L), CVA tenderness (R) - Neurological Exam Neurological exam: Alert, CN II-XII Intact, Oriented x3 - Psychiatric Exam Psychiatric exam: Normal Affect, Normal Mood - Skin Skin Exam: Dry, Intact, Normal Color Results - Vital Signs Recent Vital Signs: Last Vital Signs Temp 97.4 F L 10/15/16 07:00 Pulse 86 10/15/16 07:00 Resp 20 10/15/16 07:00 BP 124/73 10/15/16 09:13 Pulse Ox 95 10/15/16 07:00 - Labs Result Diagrams: 10/15/16 06:15 10/15/16 06:15 Labs: Laboratory Results - last 24 hr 10/14/16 10/14/16 10/15/16 11:40 22:39 06:15 WBC 27.7 H RBC 4.70 Hgb 13.6 Hct 42.8 MCV 91.1 MCH 29.0 MCHC 31.8 L RDW 14.6 H Plt Count 266 MPV 10.0 Neut % (Auto) 92.9 H Lymph % (Auto) 3.4 L [place] % (Auto) 3.0 Eos % (Auto) 0.2 Baso % (Auto) 0.5 Neut # 25.7 H Lymph # 0.9 L [place] # 0.8 Eos # 0.1 Baso # 0.1 Neutrophils % (Manual) 87 H Band Neutrophils % 9 H Lymphocytes % (Manual) 2 L Monocytes % (Manual) 2 Toxic Granulation Present Platelet Estimate Normal Large Platelets Present Polychromasia Slight Hypochromasia (manual) Slight Poikilocytosis (manual Slight Anisocytosis (manual) Slight Ovalocytes Slight [place] Cells Slight Sodium Potassium Chloride Carbon Dioxide Anion Gap BUN Creatinine Est GFR ( Amer) Est GFR (Non-Af Amer) POC Glucose (mg/dL) 357 H Random Glucose Calcium Total Bilirubin AST ALT Alkaline Phosphatase Total Protein Albumin Globulin Albumin/Globulin Ratio Urine Color Yellow Urine Clarity Hazy Urine pH 5.0 Ur Specific [place] 1.015 Urine Protein 2+ H Urine Glucose (UA) Normal Urine Ketones Negative Urine Blood Negative Urine Nitrate Negative Urine Bilirubin Negative Urine Urobilinogen Normal Ur Leukocyte Esterase Neg Urine WBC (Auto) 3 Urine RBC (Auto) 1 Ur Squamous Epith Cells 1 Urine Bacteria Rare Hyaline Casts >20 H 10/15/16 10/15/16 10/15/16 06:15 06:23 07:19 WBC RBC Hgb Hct MCV MCH MCHC RDW Plt Count MPV Neut % (Auto) Lymph % (Auto) [place] % (Auto) Eos % (Auto) Baso % (Auto) Neut # Lymph # [place] # Eos # Baso # Neutrophils % (Manual) Band Neutrophils % Lymphocytes % (Manual) Monocytes % (Manual) Toxic Granulation Platelet Estimate Large Platelets Polychromasia Hypochromasia (manual) Poikilocytosis (manual Anisocytosis (manual) Ovalocytes [place] Cells Sodium 131 L Potassium 6.2 H* Chloride 94 L Carbon Dioxide 24 Anion Gap 19 BUN 73 H Creatinine 3.3 H Est GFR ( Amer) 24 Est GFR (Non-Af Amer) 20 POC Glucose (mg/dL) 337 H Random Glucose 420 H* D Calcium 8.3 L Total Bilirubin 0.5 AST 19 ALT 37 Alkaline Phosphatase 136 H Total Protein 7.2 Albumin 3.5 Globulin 3.7 Albumin/Globulin Ratio 0.9 L Urine Color Yellow Urine Clarity Hazy Urine pH 5.0 Ur Specific [place] 1.015 Urine Protein 2+ H Urine Glucose (UA) 2+ H Urine Ketones Negative Urine Blood Negative Urine Nitrate Negative Urine Bilirubin Negative Urine Urobilinogen Normal Ur Leukocyte Esterase Neg Urine WBC (Auto) 4 Urine RBC (Auto) 2 Ur Squamous Epith Cells 2 Urine Bacteria Hyaline Casts 3-5 H 10/15/16 07:21 WBC RBC Hgb Hct MCV MCH MCHC RDW Plt Count MPV Neut % (Auto) Lymph % (Auto) [place] % (Auto) Eos % (Auto) Baso % (Auto) Neut # Lymph # [place] # Eos # Baso # Neutrophils % (Manual) Band Neutrophils % Lymphocytes % (Manual) Monocytes % (Manual) Toxic Granulation Platelet Estimate Large Platelets Polychromasia Hypochromasia (manual) Poikilocytosis (manual Anisocytosis (manual) Ovalocytes [place] Cells Sodium Potassium Chloride Carbon Dioxide Anion Gap BUN Creatinine Est GFR ( Amer) Est GFR (Non-Af Amer) POC Glucose (mg/dL) 343 H Random Glucose Calcium Total Bilirubin AST ALT Alkaline Phosphatase Total Protein Albumin Globulin Albumin/Globulin Ratio Urine Color Urine Clarity Urine pH Ur Specific [place] Urine Protein Urine Glucose (UA) Urine Ketones Urine Blood Urine Nitrate Urine Bilirubin Urine Urobilinogen Ur Leukocyte Esterase Urine WBC (Auto) Urine RBC (Auto) Ur Squamous Epith Cells Urine Bacteria Hyaline Casts Assessment & Plan (1) Acute kidney injury Status: Acute (2) CKD (chronic kidney disease) Status: Acute (3) Respiratory acidosis Status: Acute (4) Asthma exacerbation Status: Acute (5) DVT (deep venous thrombosis) Status: Acute (6) Hx of splenectomy Status: Acute (7) Hyperkalemia Status: Acute (8) Diabetes Status: Chronic (9) HTN (hypertension) Status: Chronic - Assessment and Plan (Free Text) Assessment: Acute kidney injury on chronic kidney disease HENRIQUE multifactorial, suspect uncontrolled dm causing glycosuria and sepsis. Can not exclude cardio renal syndrome Hyperkalemia due to uncontrolled dm and decreased gfr Agree with abx as ordered Patient needs aggressive glucose control, consider endo eval Encourage oral water intake IVF if unable to correct on own Kayexalate given along with insulin Repeat chemistries daily
--- NOTE | 2016-10-15 11:20 | CT ---
PROCEDURE: CT scan of the temporal bones without intravenous contrast INDICATION: TECHNIQUE: Examination was performed in the axial and coronal planes at 1 mm increments through the temporal bone and continued at 3 mm increments through the mastoid air cells. Iterative reconstruction was used. Radiation dose: Total exam DLP = 724.79 mGy-cm. This CT exam was performed using one or more of the following dose reduction techniques: Automated exposure control, adjustment of the mA and/or kV according to patient size, and/or use of iterative reconstruction technique. COMPARISON: None. FINDINGS: RIGHT TEMPORAL BONE: External Auditory Canal: The external auditory canal is well developed. There is mild soft tissue in the deep external auditory canal. . Middle Ear: There is mild thickening of the tympanic membrane. There is abnormal soft tissue in the middle ear cavity lateral to the ossicles and in the hypotympanum. No evidence of ossicular erosion. The ossicles are normally formed. The scutum is sharp. There is no dehiscence of the tegmen tympani. The facial nerve follows a normal course. Inner Ear: The cochlear and semicircular canals are normal. Superior and lateral semicircular canals are well covered. The vestibular aqueduct is normal. IAC: The IAC is normal without gross evidence for mass. Mastoids: There is abnormal fluid/ soft tissue in the mastoid air cells without evidence of destruction of the inter mastoid septations. Soft tissue also extends into the aditus ad antrum. There is also abnormal soft tissue lateral to the mastoid and in the periauricular region. No evidence of bone erosion. There is fluid in the left maxillary sinus. The remaining visualized paranasal sinuses and orbits are normal. LEFT TEMPORAL BONE: External Auditory Canal: The external auditory canal is normal and well aerated. Middle Ear: The tympanic membrane is normal. The middle ear cavity is well aerated. The ossicles are normally formed. The scutum is sharp. There is no dehiscence of the tegmen tympani. The facial nerve follows a normal course. Inner Ear: The cochlear and semicircular canals are normal. Superior and lateral semicircular canals are well covered. The vestibular aqueduct is normal. IAC: The IAC is normal without gross evidence for mass. Mastoids: The mastoid air cells are normally developed and well aerated. The visualized paranasal sinuses and orbits are normal. IMPRESSION: 1. Findings are most compatible with acute right mastoiditis and otitis media. No evidence of coalescent mastoiditis. 2. Normal CT scan of the left temporal bone without contrast.
--- NOTE | 2016-10-15 11:48 | CP.PCM.PN ---
Subjective - Date & Time of Evaluation Date of Evaluation: 10/15/16 Time of Evaluation: 11:48 - Subjective Subjective: PT SEEN THIS MORNING. TO BE SEEN BY DR. BALDERRAMA DURING ROUNDS. PT COMFORTABLE AND DEINES ANY COMPLAINTS OR PAIN. STATES HE WANTS TO GO HOME. WAS SEEN BY [facility] THIS MORNING AND THEIR RECOMMENDATIONS WERE DISCUSSED WITH THE PT. ENCOURAGED PO FLUIDS. WILL REPEAT LABS IN AM AND POSS D/C PER DR. BALDERRAMA IF RENAL FX IMPROVES. K ELEVATED AND GIVEN KAYEXALATE. NO FURTHER ORDERS. Objective - Vital Signs/Intake and Output Vital Signs (last 24 hours): Temp Pulse Resp BP Pulse Ox 97.4 F L 86 20 124/73 95 10/15/16 07:00 10/15/16 07:00 10/15/16 07:00 10/15/16 09:13 10/15/16 07:00 Intake and Output: 10/15/16 10/15/16 06:59 18:59 Intake Total 20 Balance 20 - Medications Medications: Current Medications Albuterol/Ipratropium (Duoneb 3 Mg/0.5 Mg (3 Ml) Ud) 3 ml INH RQ6 PRN PRN Reason: Shortness of Breath Last Admin: 10/14/16 19:39 Dose: 3 ml Apixaban (Eliquis) 5 mg PO BID [facility] Last Admin: 10/15/16 09:14 Dose: 5 mg Aspirin (Aspirin Chewable) 81 mg PO DAILY [facility] Last Admin: 10/15/16 09:13 Dose: 81 mg Furosemide (Lasix) 40 mg PO DAILY [facility] Last Admin: 10/15/16 09:13 Dose: 40 mg Ceftriaxone Sodium 1 gm/ (Sodium Chloride) 100 mls @ 200 mls/hr IVPB DAILY [facility] Last Admin: 10/15/16 09:12 Dose: 200 mls/hr Insulin Detemir (Levemir) 15 unit SC Q12 [facility] Last Admin: 10/15/16 09:14 Dose: 15 unit Methylprednisolone (Solu-Medrol) 40 mg IVP DAILY [facility] Last Admin: 10/15/16 09:12 Dose: 40 mg Montelukast Sodium (Singulair) 10 mg PO HS [facility] Last Admin: 10/14/16 21:16 Dose: 10 mg Ofloxacin (Floxin 0.3% Otic Soln) 0.5 ml AU BID [facility] Last Admin: 10/15/16 09:59 Dose: 2 drop Rosuvastatin Calcium (Crestor) 20 mg PO HS [facility] Last Admin: 10/14/16 21:16 Dose: 20 mg Fluticasone/Salmeterol (Advair Diskus 250/50) 1 puff IH RQ12 [facility] Last Admin: 10/15/16 07:57 Dose: 1 puff Tramadol HCl (Ultram) 25 mg PO TID PRN PRN Reason: Pain, moderate (4-7) Last Admin: 10/14/16 15:00 Dose: 25 mg - Labs Labs: 10/15/16 06:15 10/15/16 06:15
[2016-10-15] MEDS: (Novolog) Insulin Aspart, Recombinant 100 u/ml 10 ml vial SC SCH ×3 (12:27→22:08)
--- NOTE | 2016-10-15 13:05 | CP.PCM.PN ---
Subjective - Date & Time of Evaluation Date of Evaluation: 10/15/16 Time of Evaluation: 12:59 - Subjective Subjective: there is decreases ear pain and persistent hearing loss. Pain is constant and mild on the right. head: atraumatic face: good movements const: well fed com: communicates well external nose and ears: no masses nose: deviated septum ears: d/c on tm on the left, tm can not be visualized oc/op: no masses, no lesions, no erythema lips/gums: no masses, no lesions neck: supple lymph: no lad thyroid: no goiter ct: om/matoiditis. a/p: OM/mastoiditis oe deviated septum since there is no bony destruction on ct and symptoms improving on iv abx, rec continue IV abx and consider ID consult Objective - Vital Signs/Intake and Output Vital Signs (last 24 hours): Temp Pulse Resp BP Pulse Ox 97.4 F L 86 20 124/73 95 10/15/16 07:00 10/15/16 07:00 10/15/16 07:00 10/15/16 09:13 10/15/16 07:00 Intake and Output: 10/15/16 10/15/16 06:59 18:59 Intake Total 20 Balance 20 - Medications Medications: Current Medications Albuterol/Ipratropium (Duoneb 3 Mg/0.5 Mg (3 Ml) Ud) 3 ml INH RQ6 PRN PRN Reason: Shortness of Breath Last Admin: 10/14/16 19:39 Dose: 3 ml Apixaban (Eliquis) 5 mg PO BID [facility] Last Admin: 10/15/16 09:14 Dose: 5 mg Aspirin (Aspirin Chewable) 81 mg PO DAILY [facility] Last Admin: 10/15/16 09:13 Dose: 81 mg Furosemide (Lasix) 40 mg PO DAILY [facility] [place] Last Admin: 10/15/16 09:13 Dose: 40 mg Ceftriaxone Sodium 1 gm/ (Sodium Chloride) 100 mls @ 200 mls/hr IVPB DAILY [facility] [place] Last Admin: 10/15/16 09:12 Dose: 200 mls/hr Insulin Aspart (Novolog) 0 unit SC ACHS [facility] PRN Reason: Protocol Last Admin: 10/15/16 12:27 Dose: 10 unit Insulin Detemir (Levemir) 15 unit SC Q12 [facility] [place] Last Admin: 10/15/16 09:14 Dose: 15 unit Methylprednisolone (Solu-Medrol) 40 mg IVP DAILY [facility] [place] Last Admin: 10/15/16 09:12 Dose: 40 mg Montelukast Sodium (Singulair) 10 mg PO HS [facility] [place] Last Admin: 10/14/16 21:16 Dose: 10 mg Ofloxacin (Floxin 0.3% Otic Soln) 0.5 ml AU BID [facility] Last Admin: 10/15/16 09:59 Dose: 2 drop Rosuvastatin Calcium (Crestor) 20 mg PO HS [facility] [place] Last Admin: 10/14/16 21:16 Dose: 20 mg Fluticasone/Salmeterol (Advair Diskus 250/50) 1 puff IH RQ12 [facility] [place] Last Admin: 10/15/16 07:57 Dose: 1 puff Tramadol HCl (Ultram) 25 mg PO TID PRN PRN Reason: Pain, moderate (4-7) Last Admin: 10/14/16 15:00 Dose: 25 mg - Labs Labs: 10/15/16 06:15 10/15/16 06:15
--- NOTE | 2016-10-15 14:00 | US ---
PROCEDURE: Ultrasound of the Kidneys HISTORY: acute renal failure evalute for hydro COMPARISON: Abdomen pelvis CT exam 05/27/2016.. TECHNIQUE: Sonogram of the kidneys. FINDINGS: RIGHT KIDNEY: Measures: 13.6 x 6.5 x 6.1 cm. Normal in size, contour and echogenicity. No stone, solid mass lesion or hydronephrosis visualized. Body habitus limits evaluation the corticomedullary borders. LEFT KIDNEY: Measures: 14.6 x 6.7 x 5.5 cm. Normal in size, contour and echogenicity. No stone, solid mass lesion or hydronephrosis visualized. Body habitus limits evaluation the corticomedullary borders. OTHER FINDINGS: Urinary bladder unger do not appear simply thickened or nodular with prevoid volume measuring 255 cc. Bilateral ureteral jets have been captured in the urinary bladder. The abdominal aorta is obscured by body habitus and bowel gas. IMPRESSION: No obstructive uropathy bilaterally. Body habitus limits definition of the renal parenchyma intrinsically. Limited distention of the urinary bladder which is otherwise unremarkable appearing.
[2016-10-15 14:16] LABS: POTASSIUM 5.4 mmol/L (3.6-5.2)
[2016-10-15 14:18] LABS: BILIRUBIN,TOTAL 0.6 mg/dL (0.2-1.3); TOTAL PROTEIN 7.6 g/dL (6.3-8.3)
[2016-10-15 14:19] LABS: CALCIUM 8.3 mg/dl (8.6-10.4)
[2016-10-15] MEDS ORDERED: (Novolog) Insulin Aspart, Recombinant 100 u/ml 10 ml vial SC SCH (16:30)
--- NOTE | 2016-10-15 17:38 | CP.PCM.PN ---
Subjective - Date & Time of Evaluation Date of Evaluation: 10/15/16 Time of Evaluation: 17:36 - Subjective Subjective: pt is feeling better leg swelling noted blood sugar high on steroid and stopped today on rocephine K elevated now improving clinically stable chest good airentry edema 10/15/16 06:15 10/15/16 13:55 a/p: pneumonia uncontrolled dm renal failure po fluids antibiotics will f/u repeat labs in am Objective - Vital Signs/Intake and Output Vital Signs (last 24 hours): Temp Pulse Resp BP Pulse Ox 98.1 F 85 20 112/69 96 10/15/16 15:11 10/15/16 15:11 10/15/16 15:11 10/15/16 15:11 10/15/16 15:11 Intake and Output: 10/15/16 10/15/16 06:59 18:59 Intake Total 20 1300 Balance 20 1300 - Medications Medications: Current Medications Albuterol/Ipratropium (Duoneb 3 Mg/0.5 Mg (3 Ml) Ud) 3 ml INH RQ6 PRN PRN Reason: Shortness of Breath Last Admin: 10/14/16 19:39 Dose: 3 ml Apixaban (Eliquis) 5 mg PO BID [facility] Last Admin: 10/15/16 17:07 Dose: 5 mg Aspirin (Aspirin Chewable) 81 mg PO DAILY [facility] Last Admin: 10/15/16 09:13 Dose: 81 mg Furosemide (Lasix) 40 mg PO DAILY [facility] Last Admin: 10/15/16 09:13 Dose: 40 mg Ceftriaxone Sodium 1 gm/ (Sodium Chloride) 100 mls @ 200 mls/hr IVPB DAILY [facility] Last Admin: 10/15/16 09:12 Dose: 200 mls/hr Insulin Aspart (Novolog) 0 unit SC ACHS [facility] PRN Reason: Protocol Last Admin: 10/15/16 17:08 Dose: 12 unit Insulin Detemir (Levemir) 15 unit SC Q12 [facility] Last Admin: 10/15/16 09:14 Dose: 15 unit Montelukast Sodium (Singulair) 10 mg PO HS [facility] Last Admin: 10/14/16 21:16 Dose: 10 mg Ofloxacin (Floxin 0.3% Otic Soln) 0.5 ml AU BID [facility] Last Admin: 10/15/16 17:07 Dose: 1 drop Rosuvastatin Calcium (Crestor) 20 mg PO HS [facility] Last Admin: 10/14/16 21:16 Dose: 20 mg Fluticasone/Salmeterol (Advair Diskus 250/50) 1 puff IH RQ12 [facility] Last Admin: 10/15/16 07:57 Dose: 1 puff Tramadol HCl (Ultram) 25 mg PO TID PRN PRN Reason: Pain, moderate (4-7) Last Admin: 10/14/16 15:00 Dose: 25 mg - Labs Labs: 10/15/16 06:15 10/15/16 13:55
[2016-10-16] MEDS: (Novolog) Insulin Aspart, Recombinant 100 u/ml 10 ml vial SC SCH ×5 (02:27→21:58)
[2016-10-16] MEDS: Fluticasone-Salmeterol 250-50mcg Diskus IH SCH ×2 (08:00→20:18)
[2016-10-16 09:36] LABS: HEMATOCRIT 42.5 % (35.0-51.0); MEAN CELL VOLUME 89.9 fL (80.0-94.0); MEAN CORPUSCULAR HEMOGLOBIN 28.7 pg (27.0-31.0); MEAN CORPUSCULAR HGB CONC 31.9 g/dL (33.0-37.0); MEAN PLATELET VOLUME 10.7 fL (7.2-11.7); RED CELL DISTRIBUTION WIDTH 14.5 % (11.5-14.5); WHITE BLOOD COUNT 29.8 K/uL (4.8-10.8)
[2016-10-16 09:58] LABS: CALCIUM 7.9 mg/dl (8.6-10.4); POTASSIUM 5.9 mmol/L (3.6-5.2)
[2016-10-16] MEDS: Insulin Detemir 100 units/ml Vial (Levemir) SC SCH ×2 (10:13→21:59)
[2016-10-16] MEDS: Ofloxacin 0.3% Otic Soln AU SCH ×2 (10:14→18:15)
[2016-10-16] MEDS ORDERED: Sod Polystyrene Sulf 15 gm/60 ml Oral Susp PO ONE (12:04)
--- NOTE | 2016-10-16 18:47 | CP.PCM.PN ---
Subjective - Date & Time of Evaluation Date of Evaluation: 10/16/16 Time of Evaluation: 18:46 - Subjective Subjective: 46-year-old male with history diabetes, hypertension, renal insufficiency, obstructive sleep apnea, admitted with pneumonia in the right sided right ear external otitis. Patient is currently feeling much improvement in the symptoms. Leg swelling still noted. Patient's potassium level is still elevated. On examination: Chest good air entry bilaterally, minimal expected wheezing or rales. Heart sound nontender abdomen. Extremities 3+ pedal edema Assessment and recommendation: 46-year-old male with history diabetes, hypertension, renal insufficiency after to sleep apnea, and associate it COPD and bronchitis. Admitted with the worsening renal insufficiency. Shortness of breath. Most likely pneumonia. On antibiotic. Continue the diuretics. Will follow the patient Objective - Vital Signs/Intake and Output Vital Signs (last 24 hours): Temp Pulse Resp BP Pulse Ox 98.1 F 93 H 20 137/84 96 10/16/16 17:07 10/16/16 17:07 10/16/16 17:07 10/16/16 17:07 10/16/16 17:07 Intake and Output: 10/16/16 10/16/16 06:59 18:59 Intake Total 440 700 Balance 440 700 - Medications Medications: Current Medications Albuterol/Ipratropium (Duoneb 3 Mg/0.5 Mg (3 Ml) Ud) 3 ml INH RQ6 PRN PRN Reason: Shortness of Breath Last Admin: 10/14/16 19:39 Dose: 3 ml Apixaban (Eliquis) 5 mg PO BID [facility] Last Admin: 10/16/16 17:28 Dose: 5 mg Aspirin (Aspirin Chewable) 81 mg PO DAILY [facility] Last Admin: 10/16/16 10:14 Dose: 81 mg Furosemide (Lasix) 40 mg PO DAILY [facility] Last Admin: 10/16/16 10:14 Dose: 40 mg Ceftriaxone Sodium 1 gm/ (Sodium Chloride) 100 mls @ 200 mls/hr IVPB DAILY [facility] Last Admin: 10/16/16 10:13 Dose: 200 mls/hr Insulin Aspart (Novolog) 0 unit SC ACHS [facility] PRN Reason: Protocol Last Admin: 10/16/16 17:28 Dose: 6 unit Insulin Detemir (Levemir) 15 unit SC Q12 [facility] Last Admin: 10/16/16 10:13 Dose: 15 unit Montelukast Sodium (Singulair) 10 mg PO HS [facility] Last Admin: 10/15/16 22:07 Dose: 10 mg Ofloxacin (Floxin 0.3% Otic Soln) 0.5 ml AU BID [facility] Last Admin: 10/16/16 18:15 Dose: 1 drop Rosuvastatin Calcium (Crestor) 20 mg PO HS [facility] Last Admin: 10/15/16 22:07 Dose: 20 mg Fluticasone/Salmeterol (Advair Diskus 250/50) 1 puff IH RQ12 [facility] Last Admin: 10/16/16 08:00 Dose: 1 puff - Labs Labs: 10/16/16 09:30 10/16/16 09:30
[2016-10-17 07:13] LABS: BASO % 0.1 % (0.0-2.0); EOS # 1.3 K/uL (0.0-0.7); EOS % 6.1 % (0.0-4.0); HEMATOCRIT 42.5 % (35.0-51.0); LYMPH # 1.6 K/uL (1.0-4.3); LYMPH % 7.6 % (20.0-40.0); MEAN CORPUSCULAR HEMOGLOBIN 29.2 pg (27.0-31.0); MEAN CORPUSCULAR HGB CONC 32.8 g/dL (33.0-37.0); MEAN PLATELET VOLUME 10.3 fL (7.2-11.7); MONO # 2.6 K/uL (0.0-0.8); MONO % 12.5 % (0.0-10.0); NRBC % 1.6 % (0.0-2.0); PLATELET COUNT 244 K/uL (130-400); RED CELL DISTRIBUTION WIDTH 14.5 % (11.5-14.5); WHITE BLOOD COUNT 20.7 K/uL (4.8-10.8)
[2016-10-17 07:26] LABS: CHLORIDE 98 mmol/L (98-107); SODIUM 138 mmol/L (132-148)
[2016-10-17 07:27] LABS: POTASSIUM 4.5 mmol/L (3.6-5.2)
[2016-10-17 07:29] LABS: ALB/GLOB RATIO 0.9 (1.0-2.1); ALKALINE PHOSPHATASE 136 U/L (38-126); ALT/SGPT 35 U/L (21-72); AST/SGOT 27 U/L (17-59); BILIRUBIN,TOTAL 0.9 mg/dL (0.2-1.3); BLOOD UREA NITROGEN 75 mg/dL (9-20); CARBON DIOXIDE 28 mmol/L (22-30); GFR AFRICAN-AMERICAN > 60; GLUCOSE,RANDOM 182 mg/dL (75-110); TOTAL PROTEIN 7.3 g/dL (6.3-8.3)
[2016-10-17 07:30] LABS: CALCIUM 8.4 mg/dl (8.6-10.4)
[2016-10-17] MEDS: Fluticasone-Salmeterol 250-50mcg Diskus IH SCH ×2 (07:37→19:34)
[2016-10-17] MEDS: Albuterol-Ipratrop 3 mg / 0.5 (3 ml) UD INH PRN ×3 (07:37→19:32)
[2016-10-17] MEDS: (Novolog) Insulin Aspart, Recombinant 100 u/ml 10 ml vial SC SCH ×4 (08:35→22:22)
[2016-10-17 08:49] LABS: EOSINOPHIL 8 % (0-4); NEUTROPHIL 74 % (50-75); NUCLEATED RED BLOOD CELL 6 % (0-0); TOTAL CELLS COUNTED 100
[2016-10-17] MEDS: Ofloxacin 0.3% Otic Soln AU SCH ×2 (10:18→18:07)
[2016-10-17] MEDS: Insulin Detemir 100 units/ml Vial (Levemir) SC SCH ×2 (10:22→22:23)
--- NOTE | 2016-10-17 12:38 | CP.PCM.PN ---
Subjective - Date & Time of Evaluation Date of Evaluation: 10/17/16 Time of Evaluation: 12:36 - Subjective Subjective: Events noted Appears to have chronic interstitial pulmonary changes Known to be nephrotic Would continue oral lasix for K control If K controlled can consider BREANA I Pre-renal now- would contine lasix though has patient very nephrotic On biPAP Objective - Vital Signs/Intake and Output Vital Signs (last 24 hours): Temp Pulse Resp BP Pulse Ox 98.1 F 95 H 18 135/98 H 94 L 10/17/16 07:10 10/17/16 07:10 10/17/16 07:10 10/17/16 10:18 10/17/16 07:10 Intake and Output: 10/17/16 10/17/16 06:59 18:59 Intake Total 560 Output Total 3 Balance 557 - Medications Medications: Current Medications Albuterol/Ipratropium (Duoneb 3 Mg/0.5 Mg (3 Ml) Ud) 3 ml INH RQ6 PRN PRN Reason: Shortness of Breath Last Admin: 10/17/16 07:37 Dose: 3 ml Apixaban (Eliquis) 5 mg PO BID [facility] Last Admin: 10/17/16 10:18 Dose: 5 mg Aspirin (Aspirin Chewable) 81 mg PO DAILY [facility] Last Admin: 10/17/16 10:19 Dose: 81 mg Furosemide (Lasix) 40 mg PO DAILY [facility] Last Admin: 10/17/16 10:18 Dose: 40 mg Ceftriaxone Sodium 1 gm/ (Sodium Chloride) 100 mls @ 200 mls/hr IVPB DAILY [facility] Last Admin: 10/17/16 11:07 Dose: 200 mls/hr Insulin Aspart (Novolog) 0 unit SC ACHS [facility] PRN Reason: Protocol Last Admin: 10/17/16 12:33 Dose: 8 unit Insulin Detemir (Levemir) 15 unit SC Q12 [facility] Last Admin: 10/17/16 10:22 Dose: 15 unit Montelukast Sodium (Singulair) 10 mg PO HS [facility] Last Admin: 10/16/16 21:59 Dose: 10 mg Ofloxacin (Floxin 0.3% Otic Soln) 0.5 ml AU BID [facility] Last Admin: 10/17/16 10:18 Dose: 2 drop Rosuvastatin Calcium (Crestor) 20 mg PO HS [facility] Last Admin: 10/16/16 21:59 Dose: 20 mg Fluticasone/Salmeterol (Advair Diskus 250/50) 1 puff IH RQ12 [facility] Last Admin: 10/17/16 07:37 Dose: 1 puff - Labs Labs: 10/17/16 07:04 10/17/16 07:04 - Constitutional Appears: Non-toxic, Chronically Ill - Head Exam Head Exam: ATRAUMATIC, NORMAL INSPECTION - Eye Exam Eye Exam: EOMI, Normal appearance - Neck Exam Neck Exam: Normal Inspection. absent: Tenderness - Respiratory Exam Respiratory Exam: Clear to Ausculation Bilateral, NORMAL BREATHING PATTERN - Cardiovascular Exam Cardiovascular Exam: REGULAR RHYTHM, +S1 - GI/Abdominal Exam GI & Abdominal Exam: Distended, Soft. absent: Tenderness - Extremities Exam Extremities Exam: Pedal Edema. absent: Tenderness - Neurological Exam Neurological Exam: Alert, CN II-XII Intact - Skin Skin Exam: Dry, Warm Assessment and Plan (1) CKD stage 3 due to type 2 diabetes mellitus Status: Acute (2) Type 2 diabetes mellitus with diabetic nephropathy Status: Acute (3) Asthma exacerbation Status: Acute (4) Proteinuria due to type 2 diabetes mellitus Status: Acute (5) HTN (hypertension) Status: Chronic - Assessment and Plan (Free Text) Plan: Follow up chemistries If K ok can consider BREANA I
--- NOTE | 2016-10-17 14:46 | CARD ---
APPROVED REPORT EKG Measurement Heart [id number] <Conclusion> Normal sinus rhythm Right bundle branch block Abnormal ECG
[2016-10-17] MEDS ORDERED: guaiFENesin 100 mg/5 ml Syrup UD PO PRN (18:01)
[2016-10-18] MEDS: Albuterol-Ipratrop 3 mg / 0.5 (3 ml) UD INH PRN ×4 (01:47→19:54)
[2016-10-18 07:20] LABS: HEMATOCRIT 42.9 % (35.0-51.0); MEAN CELL VOLUME 89.3 fL (80.0-94.0); MEAN CORPUSCULAR HEMOGLOBIN 28.9 pg (27.0-31.0); MEAN CORPUSCULAR HGB CONC 32.4 g/dL (33.0-37.0); MEAN PLATELET VOLUME 10.7 fL (7.2-11.7); RED CELL DISTRIBUTION WIDTH 14.1 % (11.5-14.5); WHITE BLOOD COUNT 23.2 K/uL (4.8-10.8)
[2016-10-18] MEDS: Fluticasone-Salmeterol 250-50mcg Diskus IH SCH ×2 (07:29→19:55)
[2016-10-18 08:03] LABS: CHLORIDE 96 mmol/L (98-107); POTASSIUM 4.8 mmol/L (3.6-5.2); SODIUM 137 mmol/L (132-148)
[2016-10-18 08:06] LABS: BLOOD UREA NITROGEN 56 mg/dL (9-20); CALCIUM 8.5 mg/dl (8.6-10.4); CARBON DIOXIDE 30 mmol/L (22-30); GFR AFRICAN-AMERICAN > 60; GLUCOSE,RANDOM 301 mg/dL (75-110)
[2016-10-18] MEDS: (Novolog) Insulin Aspart, Recombinant 100 u/ml 10 ml vial SC SCH ×4 (08:08→21:18)
[2016-10-18] MEDS: MethylPREDNISolone 40 mg Vial IVP SCH ×2 (08:47→10:45)
--- NOTE | 2016-10-18 09:22 | RAD ---
Chest x-ray single frontal view History: Congestive heart failure. Comparison: None available. Findings: Worsening dense diffuse increased airspace opacities throughout both lungs suggestive for worsening edema and or infiltrate now severe. Cardiomegaly. Degenerative changes in the spine and shoulders. Impression: Worsening dense diffuse increased airspace opacities throughout both lungs suggestive for worsening edema and or infiltrate now severe. Cardiomegaly.
[2016-10-18] MEDS: Ofloxacin 0.3% Otic Soln AU SCH ×2 (10:09→17:06)
[2016-10-18] MEDS: Insulin Detemir 100 units/ml Vial (Levemir) SC SCH ×2 (10:10→21:19)
--- NOTE | 2016-10-18 13:16 | CP.PCM.PN ---
Subjective - Date & Time of Evaluation Date of Evaluation: 10/18/16 Time of Evaluation: 13:15 - Subjective Subjective: seen and examined labs noted on bipap, lung whiteout Objective - Vital Signs/Intake and Output Vital Signs (last 24 hours): Temp Pulse Resp BP Pulse Ox 98.3 F 100 H 22 129/71 94 L 10/18/16 12:00 10/18/16 12:21 10/18/16 12:21 10/18/16 12:21 10/18/16 12:21 Intake and Output: 10/18/16 10/18/16 06:59 18:59 Intake Total 480 100 Output Total 800 900 Balance -320 -800 - Medications Medications: Current Medications Albuterol/Ipratropium (Duoneb 3 Mg/0.5 Mg (3 Ml) Ud) 3 ml INH RQ6 PRN PRN Reason: Shortness of Breath Last Admin: 10/18/16 07:29 Dose: 3 ml Apixaban (Eliquis) 5 mg PO BID [facility] Last Admin: 10/18/16 10:10 Dose: 5 mg Aspirin (Aspirin Chewable) 81 mg PO DAILY [facility] Last Admin: 10/18/16 10:09 Dose: 81 mg Guaifenesin (Robitussin) 100 mg PO Q4H PRN PRN Reason: Cough Last Admin: 10/17/16 20:24 Dose: 100 mg Ceftriaxone Sodium 1 gm/ (Sodium Chloride) 100 mls @ 200 mls/hr IVPB DAILY [facility] Last Admin: 10/18/16 10:06 Dose: 200 mls/hr Insulin Aspart (Novolog) 0 unit SC ACHS [facility] PRN Reason: Protocol Last Admin: 10/18/16 12:10 Dose: 10 unit Insulin Detemir (Levemir) 25 unit SC Q12 [facility] Last Admin: 10/18/16 10:10 Dose: 25 unit Methylprednisolone (Solu-Medrol) 40 mg IVP Q12 [facility] Last Admin: 10/18/16 10:45 Dose: Not Given Montelukast Sodium (Singulair) 10 mg PO HS [facility] Last Admin: 10/17/16 22:21 Dose: 10 mg Ofloxacin (Floxin 0.3% Otic Soln) 0.5 ml AU BID [facility] Last Admin: 10/18/16 10:09 Dose: 2 drop Rosuvastatin Calcium (Crestor) 20 mg PO [facility] Last Admin: 10/17/16 22:21 Dose: 20 mg Fluticasone/Salmeterol (Advair Diskus 250/50) 1 puff IH RQ12 [facility] Last Admin: 10/18/16 07:29 Dose: 1 puff - Labs Labs: 10/18/16 07:08 10/18/16 07:08 - Constitutional Appears: Chronically Ill, Other (bipap . up in bed) - Head Exam Head Exam: NORMAL INSPECTION - Eye Exam Eye Exam: Normal appearance - ENT Exam ENT Exam: Normal Exam - Neck Exam Neck Exam: Normal Inspection - GI/Abdominal Exam Additional comments: distant sounds b/l crackles - Extremities Exam Additional comments: b/l 2+ pitting edema - Neurological Exam Neurological Exam: Alert, Oriented x3 - Psychiatric Exam Psychiatric exam: Anxious - Skin Skin Exam: Warm Assessment and Plan (1) Acute kidney injury Status: Acute (2) CHF (congestive heart failure) Status: Acute (3) CKD stage 3 due to type 2 diabetes mellitus Status: Acute (4) Otitis externa of right ear Status: Acute (5) Type 2 diabetes mellitus with diabetic nephropathy Status: Acute - Assessment and Plan (Free Text) Assessment: iv lasix, fluid restriction. strict I/Os bipap / pulmonary eval improving renal function avoid nephrotoxic meds needs sugar control, on steroids antibiotics per primary team
--- NOTE | 2016-10-18 13:30 | CP.PCM.CON ---
<Yudelka MrerittDavid - Last Filed: 10/18/16 18:19> History of Present Illness - History of Present Illness History of Present Illness: Patient is a 46 y/o male with a past medical history of asthma, CHF, DM, HTN, and JOVANI, admitted for worsening renal insufficiency after presenting with right sided otitis externa and pneumonia. Patient is being consulted for worsening changes on chest xray with severe edema or infiltrate. Patient states he experienced acute onset SOB while on the toilet yesterday. Patient reports he felt chest tightness with associated dizziness and fatigue. Patient also states he had a fever and chills, which have since resolved. Patient noted significant improvement in symptoms after being given Lasix. He currently complains of dry cough. Patient denies fever, chills, CP, abdominal pain, N/V/D/C, numbness, tingling, or paresthesias. PMH: Asthma, CHF, DM, HTN, JOVANI SurgHx: splenectomy; IVC filter (may 2016) by Dr. 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 Review of Systems - Constitutional Constitutional: absent: Chills, Fever - Cardiovascular Cardiovascular: Dyspnea, Dyspnea on Exertion. absent: Chest Pain, Edema - Respiratory Respiratory: Cough (Dry), Dyspnea, Dyspnea on Exertion - Gastrointestinal Gastrointestinal: absent: Abdominal Pain, Constipation, Diarrhea, Nausea, Vomiting - Musculoskeletal Musculoskeletal: absent: Numbness, Tingling - Neurological Neurological: absent: Dizziness, Numbness, Paresthesias, Tingling Past Patient History - Infectious Disease Hx of Infectious Diseases: None - Past Medical History & Family History Past Medical History?: Yes - Past Social History Smoking Status: Former Smoker - CARDIAC Hx Congestive Heart Failure: Yes Hx Hypertension: Yes - PULMONARY Hx Asthma: Yes Hx Chronic Obstructive Pulmonary Disease (COPD): Yes Hx Pneumonia: Yes (2016) Other/Comment: CKD/HENRIQUE requiring dialysis - NEUROLOGICAL Hx Neurological Disorder: Yes Other/Comment: c/o headache on admission, spinal tap attempted to remove spinal fluid. becuase of immobility developed DVT. at the time. right leg. - HEENT Hx HEENT Problems: No - RENAL Hx Chronic Kidney Disease: Yes Hx Dialysis: Yes (x2 treatments) - ENDOCRINE/METABOLIC Hx Diabetes Mellitus Type 2: Yes - HEMATOLOGICAL/ONCOLOGICAL Hx Blood Disorders: No - INTEGUMENTARY Hx Dermatological Problems: Yes Hx Cellulitis: Yes - MUSCULOSKELETAL/RHEUMATOLOGICAL Hx Musculoskeletal Disorders: No Hx Falls: No - GASTROINTESTINAL Hx Gastrointestinal Disorders: No - GENITOURINARY/GYNECOLOGICAL Hx Genitourinary Disorders: No - PSYCHIATRIC Hx Substance Use: No - SURGICAL HISTORY Hx Surgeries: Yes Hx Splenectomy: Yes (3 years ago) Hx Vascular Access Device: Yes (HX INGUINAL PERMA CATH) - ANESTHESIA Hx Anesthesia: Yes Hx Anesthesia Reactions: No Hx Malignant Hyperthermia: No Meds Allergies/Adverse Reactions: Allergies Allergy/AdvReac Type Severity Reaction Status Date / Time EGG Allergy Intermediate RASH Verified 10/14/16 08:51 - Medications Medications: Current Medications Albuterol/Ipratropium (Duoneb 3 Mg/0.5 Mg (3 Ml) Ud) 3 ml INH RQ6 PRN PRN Reason: Shortness of Breath Last Admin: 10/18/16 07:29 Dose: 3 ml Apixaban (Eliquis) 5 mg PO BID [facility] Last Admin: 10/18/16 10:10 Dose: 5 mg Aspirin (Aspirin Chewable) 81 mg PO DAILY [facility] Last Admin: 10/18/16 10:09 Dose: 81 mg Guaifenesin (Robitussin) 100 mg PO Q4H PRN PRN Reason: Cough Last Admin: 10/17/16 20:24 Dose: 100 mg Ceftriaxone Sodium 1 gm/ (Sodium Chloride) 100 mls @ 200 mls/hr IVPB DAILY [facility] Last Admin: 10/18/16 10:06 Dose: 200 mls/hr Insulin Aspart (Novolog) 0 unit SC ACHS [facility] PRN Reason: Protocol Last Admin: 10/18/16 12:10 Dose: 10 unit Insulin Detemir (Levemir) 25 unit SC Q12 [facility] Last Admin: 10/18/16 10:10 Dose: 25 unit Methylprednisolone (Solu-Medrol) 40 mg IVP Q12 [facility] Last Admin: 10/18/16 10:45 Dose: Not Given Montelukast Sodium (Singulair) 10 mg PO [facility] Last Admin: 10/17/16 22:21 Dose: 10 mg Ofloxacin (Floxin 0.3% Otic Soln) 0.5 ml AU BID [facility] Last Admin: 10/18/16 10:09 Dose: 2 drop Rosuvastatin Calcium (Crestor) 20 mg PO [facility] Last Admin: 10/17/16 22:21 Dose: 20 mg Fluticasone/Salmeterol (Advair Diskus 250/50) 1 puff IH RQ12 [facility] Last Admin: 10/18/16 07:29 Dose: 1 puff Physical Exam - Head Exam Head Exam: NORMAL INSPECTION, NORMOCEPHALIC - Eye Exam Eye Exam: EOMI - ENT Exam ENT Exam: Mucous Membranes Moist - Respiratory Exam Respiratory Exam: Rales, Rhonchi, Wheezes. absent: Clear to Auscultation Bilateral, NORMAL BREATHING PATTERN (BiPAP) - Cardiovascular Exam Cardiovascular Exam: REGULAR RHYTHM, RRR, +S1, +S2 - GI/Abdominal Exam GI & Abdominal Exam: Normal Bowel Sounds, Soft. absent: Tenderness - Extremities Exam Extremities exam: Positive for: pedal edema, pedal pulses present. Negative for : calf tenderness, tenderness - Neurological Exam Neurological exam: Alert, Oriented x3 - Psychiatric Exam Psychiatric exam: Normal Affect, Normal Mood - Skin Skin Exam: Dry, Intact, Normal Color, Warm Results - Vital Signs Recent Vital Signs: Last Vital Signs Temp 98.3 F 10/18/16 12:00 Pulse 100 H 10/18/16 12:21 Resp 22 10/18/16 12:21 BP 129/71 10/18/16 12:21 Pulse Ox 94 L 10/18/16 12:21 - Labs Result Diagrams: 10/18/16 07:08 10/18/16 07:08 Labs: Laboratory Results - last 24 hr 10/17/16 10/17/16 10/18/16 16:49 21:20 01:52 WBC RBC Hgb Hct MCV MCH MCHC RDW Plt Count MPV Sodium Potassium Chloride Carbon Dioxide Anion Gap BUN Creatinine Est GFR ( Amer) Est GFR (Non-Af Amer) POC Glucose (mg/dL) 282 H 335 H 347 H Random Glucose Calcium 10/18/16 10/18/16 10/18/16 06:44 07:08 07:08 WBC 23.2 H RBC 4.81 Hgb 13.9 Hct 42.9 MCV 89.3 MCH 28.9 MCHC 32.4 L RDW 14.1 Plt Count 224 MPV 10.7 Sodium 137 Potassium 4.8 Chloride 96 L Carbon Dioxide 30 Anion Gap 16 BUN 56 H Creatinine 1.4 Est GFR ( Amer) > 60 Est GFR (Non-Af Amer) 54 POC Glucose (mg/dL) 262 H Random Glucose 301 H Calcium 8.5 L 10/18/16 11:13 WBC RBC Hgb Hct MCV MCH MCHC RDW Plt Count MPV Sodium Potassium Chloride Carbon Dioxide Anion Gap BUN Creatinine Est GFR ( Amer) Est GFR (Non-Af Amer) POC Glucose (mg/dL) 360 H Random Glucose Calcium Assessment & Plan - Assessment and Plan (Free Text) Assessment: Patient status: Transferred to ICU; hemodynamically stable Neuro: AAOX3 CV: - Hx of CHF - ECHO: f/u - Continue Lasix 40mg - ASA 81mg daily - Crestor 20mg PO HS - ECG(10/14/16): Normal sinus rhythm at 93 bpm; RBBB - Hx of DVT: IVF filter placed; Apixaban 5mg PO BID Pulmonary: - Acute pulmonary edema likely 2/2 to worsening CHF - Patient given 40mg Lasix; continue Lasix tx - ABG (10/18/16): respiratory acidosis (pH 7.30; pCO2: 59) - On BiPAP (FiO2: 100) - Hx of asthma - Continue Solu-medrol 40mg IVP Q12 - Continue Montelukast 10mg PO HS - Continue Duoneb 3ml INH RQ6 prn SOB - Advair 250/50 1 puff IH RQ12 Imaging: - CXR(10/18): Worsening dense diffuse increased airspace opacities throughout both lungs suggestive for worsening edema and or infiltrate now severe; Cardiomegaly. - CT chest (10/14): 1. Chronic interstitial pulmonary disease is appreciated with somewhat reticular nodular component increase of the bladder apices slightly. No definitive alveolitis pleural or pericardial effusion. Lack axis appears slightly increased in the bilateral bases. 2. Mediastinal lymphadenopathy appreciated without significant interval change. Bilateral hilar adenopathy remains likely but is poorly evaluated due to lack of intravenous contrast. 3. Incidental cholelithiasis. - CXR (10/14): Cardiomegaly, increased interstitial markings likely interstitial / cardiogenic edema. GI: - No acute issues Hematology: - No acute issues Endocrine: - Hx of DM - Continue Novolog SC - Continue Levemir 25 units SC Q12 - Monitor daily glucose Renal: - Worsening renal insufficiency - Continue to trend renal functions - Hyperkalemia - resolved; continue to monitor daily - Nephrology consult- Dr. Rhoades Musculoskeletal: - No acute issues Genitourinary: - No acute issues - UA x2: negative Infectious disease: - Leukocytosis likely 2/2 to pneumonia - Continue Ceftriaxone 1gm daily - Continue Ofloxacin 0.5 ml AU BID Imaging: - CT facial bones (10/14): 1. Findings are most compatible with acute right mastoiditis and otitis media. No evidence of coalescent mastoiditis. 2. Normal CT scan of the left temporal bone without contrast. Prophylaxis: - DVT prophylaxis: Apixaban 5mg PO BID Patient has IVC filter placed by Dr. Ortega in May 2016 - GI: Pepcid 20mg PO daily - ASA 81mg PO daily <Alex Cruz S - Last Filed: 10/18/16 18:50> Meds - Medications Medications: Current Medications Albuterol/Ipratropium (Duoneb 3 Mg/0.5 Mg (3 Ml) Ud) 3 ml INH RQ6 PRN PRN Reason: Shortness of Breath Last Admin: 10/18/16 13:59 Dose: 3 ml Apixaban (Eliquis) 5 mg PO BID [facility] Last Admin: 10/18/16 17:06 Dose: 5 mg Aspirin (Aspirin Chewable) 81 mg PO DAILY [facility] Last Admin: 10/18/16 10:09 Dose: 81 mg Famotidine (Pepcid) 20 mg PO DAILY [facility] Furosemide (Lasix) 40 mg IVP BID [facility] Last Admin: 10/18/16 17:07 Dose: 40 mg Guaifenesin (Robitussin) 100 mg PO Q4H PRN PRN Reason: Cough Last Admin: 10/17/16 20:24 Dose: 100 mg Ceftriaxone Sodium 1 gm/ (Sodium Chloride) 100 mls @ 200 mls/hr IVPB DAILY [facility] Last Admin: 10/18/16 10:06 Dose: 200 mls/hr Insulin Aspart (Novolog) 0 unit SC ACHS [facility] PRN Reason: Protocol Last Admin: 10/18/16 16:34 Dose: 8 unit Insulin Detemir (Levemir) 25 unit SC Q12 [facility] Last Admin: 10/18/16 10:10 Dose: 25 unit Methylprednisolone (Solu-Medrol) 40 mg IVP Q12 [facility] Last Admin: 10/18/16 10:45 Dose: Not Given Montelukast Sodium (Singulair) 10 mg PO HS [facility] Last Admin: 10/17/16 22:21 Dose: 10 mg Ofloxacin (Floxin 0.3% Otic Soln) 0.5 ml AU BID [facility] Last Admin: 10/18/16 17:06 Dose: 2 drop Rosuvastatin Calcium (Crestor) 20 mg PO [facility] Last Admin: 10/17/16 22:21 Dose: 20 mg Fluticasone/Salmeterol (Advair Diskus 250/50) 1 puff IH RQ12 [facility] Last Admin: 10/18/16 07:29 Dose: 1 puff Results - Vital Signs Recent Vital Signs: Last Vital Signs Temp 98.3 F 10/18/16 16:00 Pulse 93 H 10/18/16 18:30 Resp 17 10/18/16 18:30 BP 138/80 10/18/16 17:08 Pulse Ox 94 L 10/18/16 18:30 - Labs Result Diagrams: 10/18/16 07:08 10/18/16 07:08 Labs: Laboratory Results - last 24 hr 10/17/16 10/18/16 10/18/16 21:20 01:52 06:44 WBC RBC Hgb Hct MCV MCH MCHC RDW Plt Count MPV Puncture Site pCO2 pO2 HCO3 ABG pH ABG Total CO2 ABG O2 Saturation ABG Base Excess ABG Hemoglobin ABG Carboxyhemoglobin POC ABG HHb (Measured) ABG Methemoglobin Philippe Test A-a O2 Difference Respiratory Index Hgb O2 Saturation Vent Mode FiO2 Inspiratory BiPAP Expiratory BiPAP Sodium Potassium Chloride Carbon Dioxide Anion Gap BUN Creatinine Est GFR ( Amer) Est GFR (Non-Af Amer) POC Glucose (mg/dL) 335 H 347 H 262 H Random Glucose Calcium 10/18/16 10/18/16 10/18/16 07:08 07:08 11:13 WBC 23.2 H RBC 4.81 Hgb 13.9 Hct 42.9 MCV 89.3 MCH 28.9 MCHC 32.4 L RDW 14.1 Plt Count 224 MPV 10.7 Puncture Site pCO2 pO2 HCO3 ABG pH ABG Total CO2 ABG O2 Saturation ABG Base Excess ABG Hemoglobin ABG Carboxyhemoglobin POC ABG HHb (Measured) ABG Methemoglobin Philippe Test A-a O2 Difference Respiratory Index Hgb O2 Saturation Vent Mode FiO2 Inspiratory BiPAP Expiratory BiPAP Sodium 137 Potassium 4.8 Chloride 96 L Carbon Dioxide 30 Anion Gap 16 BUN 56 H Creatinine 1.4 Est GFR ( Amer) > 60 Est GFR (Non-Af Amer) 54 POC Glucose (mg/dL) 360 H Random Glucose 301 H Calcium 8.5 L 10/18/16 10/18/16 14:03 16:00 WBC RBC Hgb Hct MCV MCH MCHC RDW Plt Count MPV Puncture Site Rr pCO2 59 H pO2 94 HCO3 25.9 ABG pH 7.30 L ABG Total CO2 30.8 H ABG O2 Saturation 98.7 H ABG Base Excess 1.3 ABG Hemoglobin 13.1 ABG Carboxyhemoglobin 2.2 H POC ABG HHb (Measured) 1.3 ABG Methemoglobin 0.9 Philippe Test Pos A-a O2 Difference 545.0 Respiratory Index 5.8 Hgb O2 Saturation 95.6 Vent Mode Bipap FiO2 100.0 Inspiratory BiPAP 18 Expiratory BiPAP 8 Sodium Potassium Chloride Carbon Dioxide Anion Gap BUN Creatinine Est GFR ( Amer) Est GFR (Non-Af Amer) POC Glucose (mg/dL) 303 H Random Glucose Calcium Attending/Attestation - Attestation I have personally seen and examined this patient.: Yes I have fully participated in the care of the patient.: Yes I have reviewed all pertinent clinical information: Yes Notes (Text): 10/18/16 18:47 Patient seen and examined in the intensive care unit. 46-year-old male transferred to ICU for respiratory insufficiency/pulmonary edema On BiPAP Follow-up ABG Continue Lasix Repeat echocardiogram
[2016-10-18 14:07] LABS: ABG ALLEN TEST POS; ARTERIAL BLOOD GAS MODE BiPAP; ARTERIAL BLOOD HGB O2 SAT 95.6 % (95.0-98.0); CARBOXYHEMOGLOBIN 2.2 % (0.5-1.5); DRAW SITE RR; HHB 1.3 % (0.0-5.0); METHEMOGLOBIN 0.9 % (0.0-3.0)
--- NOTE | 2016-10-18 17:46 | CARD ---
APPROVED REPORT EXAM: Two-dimensional and M-mode echocardiogram with Doppler and color Doppler. Other Information Quality : FairRhythm : Technically limited study due to body habitus and COPD INDICATION Dyspnea RISK FACTORS Hypertension Hyperlipidemia Diabetes 2D DIMENSIONS IVSd1.1 (0.7-1.1cm)LVDd5.4 (3.9-5.9cm) LVOT Diameter1.6 (1.8-2.4cm)PWd1.0 (0.7-1.1cm) IVSs1.8 (0.8-1.2cm)LVDs3.1 (2.5-4.0cm) FS (%) 43.6 %PWs1.5 (0.8-1.2cm) LVEF (%)74.3 (>50%) M-Mode DIMENSIONS RVDd1.91 (2.1-3.2cm)Left Atrium (MM)3.63 (2.5-4.0cm) IVSd1.13 (0.7-1.1cm)Aortic Root3.16 (2.2-3.7cm) LVDd5.27 (4.0-5.6cm)Aortic Cusp Exc.1.84 (1.5-2.0cm) PWd1.60 (0.7-1.1cm)FS (%) 44 % LVDs2.97 (2.0-3.8cm)LVEF (%)75 (>50%) Aortic Valve AoV Peak Lkctpekr738.1cm/sAoV VTI27.2cmAO Peak GR.9mmHg LVOT Peak Svyeynnh812.2cm/Lorene Mean GR.5mmHgAVA (VMAX)1.91cm2 Mitral Valve MV E Wuozdlwb72.7cm/sMV A Prqbajnt00.4cm/sE/A ratio1.4 TDI E/Lateral E'0.0E/Medial E'0.0 Pulmonary Valve PV Peak Jkdtmjzk510.3cm/sPV Peak Grad.8mmHg Tricuspid Valve TR Peak Ujfiottu940fp/sTR Peak Gr.87jcJrOBOW92fsWh LEFT VENTRICLE The left ventricle is normal size. There is normal left ventricular wall thickness. The left ventricular function is normal. The left ventricular ejection fraction is within the normal range. There is normal LV segmental wall motion. The left ventricular diastolic function is normal. RIGHT VENTRICLE The right ventricle is normal size. The right ventricular systolic function is normal. ATRIA The left atrium size is normal. The right atrium size is normal. AORTIC VALVE The aortic valve is normal in structure. No aortic regurgitation is present. MITRAL VALVE The mitral valve is normal in structure. There is no mitral valve regurgitation noted. TRICUSPID VALVE The tricuspid valve is normal in structure. There is trace to mild tricuspid regurgitation. Right ventricular systolic pressure is estimated at less than 30 mmHg. PULMONIC VALVE The pulmonic valve is not well visualized. GREAT VESSELS The aortic root is normal in size. The IVC is normal in size and collapses >50% with inspiration. PERICARDIAL EFFUSION There is no pericardial effusion. <Conclusion> Normal bi-ventricular function. No gross valvular abnormality. No pericardial effusion.
--- NOTE | 2016-10-18 20:13 | CP.PCM.PN ---
Subjective - Date & Time of Evaluation Date of Evaluation: 10/18/16 Time of Evaluation: 20:12 - Subjective Subjective: I saw the patient this morning. At the time patient was having severe shortness of breath. Immediately x-ray was done showing evidence of bilateral pulmonary edema pattern. Lasix 40 IV injection given immediately followed by Jewell Mckinnon Patient was transferred to intensive care unit. Patient was closely monitored in intensive care unit, currently on BiPAP, 100% FiO2. Overall patient is showing some improvement. Urine output slightly better. Bilateral leg swelling noted. Labs reviewed Vital signs reviewed Chest bilateral diffuse rhonchi and wheezing noted regular heart sound pedal edema bilaterally noted Labs reviewed Chest x-ray in the morning showing evidence of bilateral infiltrate. We'll continue to monitor, patient will be closely monitored in the intensive care unit with the BiPAP. GI and DVT prophylaxis. Lasix. Likely fluid overload state, and associated with the pulmonary edema. Unclear otherwise we'll continue the current aggressive treatment. Echocardiogram showing evidence of no acute changes. And will follow the patient Objective - Vital Signs/Intake and Output Vital Signs (last 24 hours): Temp Pulse Resp BP Pulse Ox 98.3 F 90 12 138/80 95 10/18/16 16:00 10/18/16 19:57 10/18/16 19:00 10/18/16 17:08 10/18/16 19:00 Intake and Output: 10/18/16 10/19/16 18:59 06:59 Intake Total 1190 Output Total 3600 Balance -2410 - Medications Medications: Current Medications Albuterol/Ipratropium (Duoneb 3 Mg/0.5 Mg (3 Ml) Ud) 3 ml INH RQ6 PRN PRN Reason: Shortness of Breath Last Admin: 10/18/16 19:54 Dose: 3 ml Apixaban (Eliquis) 5 mg PO BID ANABELLA Last Admin: 10/18/16 17:06 Dose: 5 mg Aspirin (Aspirin Chewable) 81 mg PO DAILY ANABELLA Last Admin: 10/18/16 10:09 Dose: 81 mg Famotidine (Pepcid) 20 mg PO DAILY ANABELLA Furosemide (Lasix) 40 mg IVP BID ANABELLA Last Admin: 10/18/16 17:07 Dose: 40 mg Guaifenesin (Robitussin) 100 mg PO Q4H PRN PRN Reason: Cough Last Admin: 10/17/16 20:24 Dose: 100 mg Ceftriaxone Sodium 1 gm/ (Sodium Chloride) 100 mls @ 200 mls/hr IVPB DAILY [facility] Last Admin: 10/18/16 10:06 Dose: 200 mls/hr Insulin Aspart (Novolog) 0 unit SC ACHS [facility] PRN Reason: Protocol Last Admin: 10/18/16 16:34 Dose: 8 unit Insulin Detemir (Levemir) 25 unit SC Q12 [facility] Last Admin: 10/18/16 10:10 Dose: 25 unit Methylprednisolone (Solu-Medrol) 40 mg IVP Q12 [facility] Last Admin: 10/18/16 10:45 Dose: Not Given Montelukast Sodium (Singulair) 10 mg PO HS [facility] Last Admin: 10/17/16 22:21 Dose: 10 mg Ofloxacin (Floxin 0.3% Otic Soln) 0.5 ml AU BID [facility] Last Admin: 10/18/16 17:06 Dose: 2 drop Rosuvastatin Calcium (Crestor) 20 mg PO HS [facility] Last Admin: 10/17/16 22:21 Dose: 20 mg Fluticasone/Salmeterol (Advair Diskus 250/50) 1 puff IH RQ12 [facility] Last Admin: 10/18/16 19:55 Dose: 1 puff - Labs Labs: 10/18/16 07:08 10/18/16 07:08
[2016-10-18 21:53] LABS: BASO % 0.2 % (0.0-2.0); EOS # 0.1 K/uL (0.0-0.7); EOS % 0.3 % (0.0-4.0); HEMATOCRIT 39.8 % (35.0-51.0); LYMPH % 4.1 % (20.0-40.0); MEAN CELL VOLUME 88.6 fL (80.0-94.0); MEAN CORPUSCULAR HEMOGLOBIN 28.5 pg (27.0-31.0); MEAN CORPUSCULAR HGB CONC 32.2 g/dL (33.0-37.0); MEAN PLATELET VOLUME 10.1 fL (7.2-11.7); MONO # 1.5 K/uL (0.0-0.8); NRBC % 0.2 % (0.0-2.0); PLATELET COUNT 202 K/uL (130-400); RED CELL DISTRIBUTION WIDTH 14.8 % (11.5-14.5); WHITE BLOOD COUNT 24.3 K/uL (4.8-10.8)
[2016-10-18 22:02] LABS: CHLORIDE 93 mmol/L (98-107); POTASSIUM 5.2 mmol/L (3.6-5.2); SODIUM 135 mmol/L (132-148)
[2016-10-18 22:04] LABS: ALB/GLOB RATIO 0.9 (1.0-2.1); AST/SGOT 23 U/L (17-59); BILIRUBIN,TOTAL 0.9 mg/dL (0.2-1.3); CARBON DIOXIDE 30 mmol/L (22-30); GFR AFRICAN-AMERICAN > 60; TOTAL PROTEIN 6.8 g/dL (6.3-8.3)
[2016-10-18 22:05] LABS: ALKALINE PHOSPHATASE 136 U/L (38-126); ALT/SGPT 36 U/L (21-72); BLOOD UREA NITROGEN 57 mg/dL (9-20); GLUCOSE,RANDOM 395 mg/dL (75-110)
[2016-10-18 22:45] LABS: NEUTROPHIL 85 % (50-75); TOTAL CELLS COUNTED 100
[2016-10-18 22:48] LABS: LARGE PLATELETS PRESENT
[2016-10-19] MEDS: Albuterol-Ipratrop 3 mg / 0.5 (3 ml) UD INH PRN ×3 (01:16→14:01)
[2016-10-19 05:46] LABS: ABG ALLEN TEST POS; ARTERIAL BLOOD GAS MODE BiPAP; ARTERIAL BLOOD HGB O2 SAT 88.9 % (95.0-98.0); CARBOXYHEMOGLOBIN 2.3 % (0.5-1.5); DRAW SITE RR; HHB 7.4 % (0.0-5.0); METHEMOGLOBIN 1.4 % (0.0-3.0)
[2016-10-19 06:35] LABS: BASO # 0.1 K/uL (0.0-0.2); BASO % 0.3 % (0.0-2.0); EOS # 0.2 K/uL (0.0-0.7); EOS % 0.9 % (0.0-4.0); HEMATOCRIT 38.9 % (35.0-51.0); LYMPH # 1.4 K/uL (1.0-4.3); LYMPH % 5.2 % (20.0-40.0); MEAN CORPUSCULAR HEMOGLOBIN 28.6 pg (27.0-31.0); MEAN CORPUSCULAR HGB CONC 32.1 g/dL (33.0-37.0); MEAN PLATELET VOLUME 10.9 fL (7.2-11.7); MONO # 2.3 K/uL (0.0-0.8); MONO % 8.8 % (0.0-10.0); NRBC % 0.1 % (0.0-2.0); PLATELET COUNT 207 K/uL (130-400); RED CELL DISTRIBUTION WIDTH 14.4 % (11.5-14.5); WHITE BLOOD COUNT 26.3 K/uL (4.8-10.8)
[2016-10-19 06:40] LABS: ALB/GLOB RATIO 0.9 (1.0-2.1); ALKALINE PHOSPHATASE 120 U/L (38-126); ALT/SGPT 30 U/L (21-72); AST/SGOT 21 U/L (17-59); BILIRUBIN,TOTAL 0.7 mg/dL (0.2-1.3); BLOOD UREA NITROGEN 62 mg/dL (9-20); CALCIUM 8.4 mg/dl (8.6-10.4); CARBON DIOXIDE 30 mmol/L (22-30); CHLORIDE 96 mmol/L (98-107); GFR AFRICAN-AMERICAN > 60; GLUCOSE,RANDOM 314 mg/dL (75-110); MAGNESIUM 2.5 mg/dL (1.6-2.3); PHOSPHOROUS 3.9 mg/dL (2.5-4.5); SODIUM 135 mmol/L (132-148); TOTAL PROTEIN 6.5 g/dL (6.3-8.3)
[2016-10-19] MEDS: Fluticasone-Salmeterol 250-50mcg Diskus IH SCH ×2 (07:57→19:35)
[2016-10-19] MEDS: (Novolog) Insulin Aspart, Recombinant 100 u/ml 10 ml vial SC SCH ×4 (08:21→21:12)
[2016-10-19 08:33] LABS: NEUTROPHIL 85 % (50-75); TOTAL CELLS COUNTED 100
[2016-10-19 08:34] LABS: EOSINOPHIL 1 % (0-4)
[2016-10-19 08:35] LABS: GIANT PLATELETS PRESENT; LARGE PLATELETS PRESENT
--- NOTE | 2016-10-19 09:01 | RAD ---
HISTORY: dyspnea COMPARISON: 10/18/2016 FINDINGS: LUNGS: Diffuse bilateral ill-defined alveolar opacity, left greater than right, improved compared to prior examination. Examination is somewhat limited due to patient body habitus. No focal consolidation. PLEURA: No significant pleural effusion identified, no pneumothorax apparent. CARDIOVASCULAR: Congestive change. OSSEOUS STRUCTURES: No significant abnormalities. VISUALIZED UPPER ABDOMEN: Normal. OTHER FINDINGS: None. IMPRESSION: Improving bilateral diffuse alveolar opacity. Congestive change.
--- NOTE | 2016-10-19 09:57 | CP.CCUPN ---
<Yudelka Merritt - Last Filed: 10/19/16 09:54> CCU Subjective - Physician Review Subjective (Free Text): Patient was seen and examined at bedside in this morning. Patient was sitting up comfortably and in no acute distress. Patient reports feeling better and less short of breath. Patient denies chest pain, abdominal pain, fevers, headaches, nausea, vomiting, diarrhea, constipation, and leg swelling or pain. 10/19/16 09:54 CCU Objective - Vital Signs / Intake & Output Vital Signs (Last 4 hours): Vital Signs Pulse Resp Pulse Ox 10/19/16 07:58 88 10/19/16 06:00 89 21 92 L Intake and Output (Last 8hrs): Intake & Output 10/18/16 10/19/16 10/19/16 22:59 06:59 14:59 Intake Total 640 640 Output Total 2450 700 400 Balance -1810 -60 -400 Weight 291 lb Intake: Oral 640 640 Output: Urine 2450 700 400 Urine, Voided 2450 700 400 Other: # Voids Urine, Voided 1 - Physical Exam Head: Positive for: Atraumatic, Normocephalic Extroacular Muscles: Positive for: EOMI Conjunctiva: Positive for: Normal Mouth: Positive for: Moist Mucous Membranes Respiratory/Chest: Positive for: Decreased Breath Sounds, Rales (B/L; improved since yesterday), Rhonchi. Negative for: Clear to Auscultation Cardiovascular: Positive for: Regular Rate and Rhythm, Normal S1, S2 Abdomen: Positive for: Normal Bowel Sounds. Negative for: Tenderness Upper Extremity: Positive for: Normal Inspection Lower Extremity: Positive for: Edema. Negative for: CALF TENDERNESS, Tenderness Skin: Positive for: Warm, Dry, Normal Color Psychiatric: Positive for: Alert, Oriented x 3 - Medications Active Medications: Active Medications Generic Name Dose Route Start Last Admin Trade Name Freq PRN Reason Stop Dose Admin Albuterol/Ipratropium 3 ml 10/14/16 12:22 10/19/16 07:57 Duoneb 3 Mg/0.5 Mg (3 Ml) Ud INH 3 ml RQ6 PRN Administration Shortness of Breath Apixaban 5 mg 10/14/16 18:00 10/18/16 17:06 Eliquis PO 5 mg BID ANABELLA Administration Aspirin 81 mg 10/15/16 10:00 10/18/16 10:09 Aspirin Chewable PO 81 mg DAILY ANABELLA Administration Famotidine 20 mg 10/19/16 10:00 Pepcid PO DAILY ANABELLA Furosemide 40 mg 10/18/16 18:00 10/18/16 17:07 Lasix IVP 40 mg BID ANABELLA Administration Guaifenesin 100 mg 10/17/16 18:01 10/17/16 20:24 Robitussin PO 100 mg Q4H PRN Administration Cough Ceftriaxone Sodium 1 gm/ 100 mls @ 200 mls/hr 10/14/16 13:00 10/18/16 10:06 Sodium Chloride IVPB 200 mls/hr DAILY ANABELLA Administration Azithromycin 500 mg/ Sodium 250 mls @ 250 mls/hr 10/19/16 10:00 Chloride IVPB DAILY ANABELLA Insulin Aspart 0 unit 10/15/16 11:30 10/19/16 08:21 Novolog SC 6 unit ACHS ANABELLA Administration Protocol Insulin Detemir 25 unit 10/18/16 08:34 10/18/16 21:19 Levemir SC 25 unit Q12 ANABELLA Administration Methylprednisolone 40 mg 10/19/16 10:00 Solu-Medrol IVP DAILY ANABELLA Montelukast Sodium 10 mg 10/14/16 22:00 10/18/16 21:19 Singulair PO 10 mg HS ANABELLA Administration Ofloxacin 0.5 ml 10/14/16 18:00 10/18/16 17:06 Floxin 0.3% Otic Soln AU 2 drop BID ANABELLA Administration Rosuvastatin Calcium 20 mg 10/14/16 22:00 10/18/16 21:19 Crestor PO 20 mg HS ANABELLA Administration Fluticasone/Salmeterol 1 puff 10/14/16 22:00 10/19/16 07:57 Advair Diskus 250/50 IH 1 puff RQ12 ANABELLA Administration - Patient Studies Lab Studies: Lab Studies 10/19/16 10/19/16 10/19/16 Range/Units 07:47 06:23 06:21 WBC 26.3 H (4.8-10.8) K/uL RBC 4.37 L (4.40-5.90) Mil/uL Hgb 12.5 (12.0-18.0) g/dL Hct 38.9 (35.0-51.0) % MCV 89.0 (80.0-94.0) fL MCH 28.6 (27.0-31.0) pg MCHC 32.1 L (33.0-37.0) g/dL RDW 14.4 (11.5-14.5) % Plt Count 207 (130-400) K/uL MPV 10.9 (7.2-11.7) fL Neut % (Auto) 84.8 H (50.0-75.0) % Lymph % (Auto) 5.2 L (20.0-40.0) % [place] % (Auto) 8.8 (0.0-10.0) % Eos % (Auto) 0.9 (0.0-4.0) % Baso % (Auto) 0.3 (0.0-2.0) % Neut # 22.3 H (1.8-7.0) K/uL Lymph # 1.4 (1.0-4.3) K/uL [place] # 2.3 H (0.0-0.8) K/uL Eos # 0.2 (0.0-0.7) K/uL Baso # 0.1 (0.0-0.2) K/uL Neutrophils % (Manual) 85 H (50-75) % Band Neutrophils % (0-2) % Lymphocytes % (Manual) 5 L (20-40) % Monocytes % (Manual) 9 (0-10) % Eosinophils % (Manual) 1 (0-4) % Platelet Estimate Normal (NORMAL) Large Platelets Present Giant Platelets Present RBC Morphology Normal Microcytosis (manual) Puncture Site pCO2 (35-45) mm/Hg pO2 (80-100) mm/Hg HCO3 (21-28) mmol/L ABG pH (7.35-7.45) ABG Total CO2 (22-28) mmol/L ABG O2 Saturation (95-98) % ABG Base Excess (-2.0-3.0) mmol/L ABG Hemoglobin (11.7-17.4) g/dL ABG Carboxyhemoglobin (0.5-1.5) % POC ABG HHb (Measured) (0.0-5.0) % ABG Methemoglobin (0.0-3.0) % Philippe Test A-a O2 Difference mm/Hg Respiratory Index Hgb O2 Saturation (95.0-98.0) % Vent Mode FiO2 % Inspiratory BiPAP Expiratory BiPAP Sodium 135 (132-148) mmol/L Potassium 5.0 (3.6-5.2) mmol/L Chloride 96 L (98-107) mmol/L Carbon Dioxide 30 (22-30) mmol/L Anion Gap 14 (10-20) BUN 62 H (9-20) mg/dL Creatinine 1.3 (0.8-1.5) MG/DL Est GFR ( Amer) > 60 Est GFR (Non-Af Amer) 59 POC Glucose (mg/dL) 272 H (65-110) mg/dL Random Glucose 314 H (75-110) mg/dL Calcium 8.4 L (8.6-10.4) mg/dl Phosphorus 3.9 (2.5-4.5) mg/dL Magnesium 2.5 H (1.6-2.3) mg/dL Total Bilirubin 0.7 (0.2-1.3) mg/dL AST 21 (17-59) U/L ALT 30 (21-72) U/L Alkaline Phosphatase 120 (38-126) U/L Total Creatine Kinase (55-170) U/L CK-MB (Mass) (0.0-3.38) ng/mL Troponin I, Quant (0.00-0.120) ng/mL Total Protein 6.5 (6.3-8.3) g/dL Albumin 3.2 L (3.5-5.0) g/dL Globulin 3.4 (2.2-3.9) gm/dL Albumin/Globulin Ratio 0.9 L (1.0-2.1) 10/19/16 10/18/16 10/18/16 Range/Units 05:28 21:48 21:48 WBC 24.3 H (4.8-10.8) K/uL RBC 4.50 (4.40-5.90) Mil/uL Hgb 12.8 (12.0-18.0) g/dL Hct 39.8 (35.0-51.0) % MCV 88.6 (80.0-94.0) fL MCH 28.5 (27.0-31.0) pg MCHC 32.2 L (33.0-37.0) g/dL RDW 14.8 H (11.5-14.5) % Plt Count 202 (130-400) K/uL MPV 10.1 (7.2-11.7) fL Neut % (Auto) 89.4 H (50.0-75.0) % Lymph % (Auto) 4.1 L (20.0-40.0) % [place] % (Auto) 6.0 (0.0-10.0) % Eos % (Auto) 0.3 (0.0-4.0) % Baso % (Auto) 0.2 (0.0-2.0) % Neut # 21.7 H (1.8-7.0) K/uL Lymph # 1.0 (1.0-4.3) K/uL [place] # 1.5 H (0.0-0.8) K/uL Eos # 0.1 (0.0-0.7) K/uL Baso # 0.0 (0.0-0.2) K/uL Neutrophils % (Manual) 85 H (50-75) % Band Neutrophils % 5 H (0-2) % Lymphocytes % (Manual) 6 L (20-40) % Monocytes % (Manual) 4 (0-10) % Eosinophils % (Manual) (0-4) % Platelet Estimate Normal (NORMAL) Large Platelets Present Giant Platelets RBC Morphology Microcytosis (manual) Slight Puncture Site Rr pCO2 65 H (35-45) mm/Hg pO2 55 L (80-100) mm/Hg HCO3 27.0 (21-28) mmol/L ABG pH 7.29 L (7.35-7.45) ABG Total CO2 33.3 H (22-28) mmol/L ABG O2 Saturation 92.3 L (95-98) % ABG Base Excess 2.9 (-2.0-3.0) mmol/L ABG Hemoglobin 13.3 (11.7-17.4) g/dL ABG Carboxyhemoglobin 2.3 H (0.5-1.5) % POC ABG HHb (Measured) 7.4 H (0.0-5.0) % ABG Methemoglobin 1.4 (0.0-3.0) % Philippe Test Pos A-a O2 Difference 434.0 mm/Hg Respiratory Index 7.9 Hgb O2 Saturation 88.9 L (95.0-98.0) % Vent Mode Bipap FiO2 80.0 % Inspiratory BiPAP 18 Expiratory BiPAP 8 Sodium 135 (132-148) mmol/L Potassium 5.2 (3.6-5.2) mmol/L Chloride 93 L (98-107) mmol/L Carbon Dioxide 30 (22-30) mmol/L Anion Gap 17 (10-20) BUN 57 H (9-20) mg/dL Creatinine 1.3 (0.8-1.5) MG/DL Est GFR ( Amer) > 60 Est GFR (Non-Af Amer) 59 POC Glucose (mg/dL) (65-110) mg/dL Random Glucose 395 H (75-110) mg/dL Calcium 8.0 L (8.6-10.4) mg/dl Phosphorus (2.5-4.5) mg/dL Magnesium (1.6-2.3) mg/dL Total Bilirubin 0.9 (0.2-1.3) mg/dL AST 23 (17-59) U/L ALT 36 (21-72) U/L Alkaline Phosphatase 136 H (38-126) U/L Total Creatine Kinase 66 (55-170) U/L CK-MB (Mass) 3.80 H (0.0-3.38) ng/mL Troponin I, Quant 0.0890 (0.00-0.120) ng/mL Total Protein 6.8 (6.3-8.3) g/dL Albumin 3.3 L (3.5-5.0) g/dL Globulin 3.6 (2.2-3.9) gm/dL Albumin/Globulin Ratio 0.9 L (1.0-2.1) 10/18/16 10/18/16 10/18/16 Range/Units 21:09 16:00 14:03 WBC (4.8-10.8) K/uL RBC (4.40-5.90) Mil/uL Hgb (12.0-18.0) g/dL Hct (35.0-51.0) % MCV (80.0-94.0) fL MCH (27.0-31.0) pg MCHC (33.0-37.0) g/dL RDW (11.5-14.5) % Plt Count (130-400) K/uL MPV (7.2-11.7) fL Neut % (Auto) (50.0-75.0) % Lymph % (Auto) (20.0-40.0) % [place] % (Auto) (0.0-10.0) % Eos % (Auto) (0.0-4.0) % Baso % (Auto) (0.0-2.0) % Neut # (1.8-7.0) K/uL Lymph # (1.0-4.3) K/uL [place] # (0.0-0.8) K/uL Eos # (0.0-0.7) K/uL Baso # (0.0-0.2) K/uL Neutrophils % (Manual) (50-75) % Band Neutrophils % (0-2) % Lymphocytes % (Manual) (20-40) % Monocytes % (Manual) (0-10) % Eosinophils % (Manual) (0-4) % Platelet Estimate (NORMAL) Large Platelets Giant Platelets RBC Morphology Microcytosis (manual) Puncture Site Rr pCO2 59 H (35-45) mm/Hg pO2 94 (80-100) mm/Hg HCO3 25.9 (21-28) mmol/L ABG pH 7.30 L (7.35-7.45) ABG Total CO2 30.8 H (22-28) mmol/L ABG O2 Saturation 98.7 H (95-98) % ABG Base Excess 1.3 (-2.0-3.0) mmol/L ABG Hemoglobin 13.1 (11.7-17.4) g/dL ABG Carboxyhemoglobin 2.2 H (0.5-1.5) % POC ABG HHb (Measured) 1.3 (0.0-5.0) % ABG Methemoglobin 0.9 (0.0-3.0) % Philippe Test Pos A-a O2 Difference 545.0 mm/Hg Respiratory Index 5.8 Hgb O2 Saturation 95.6 (95.0-98.0) % Vent Mode Bipap FiO2 100.0 % Inspiratory BiPAP 18 Expiratory BiPAP 8 Sodium (132-148) mmol/L Potassium (3.6-5.2) mmol/L Chloride (98-107) mmol/L Carbon Dioxide (22-30) mmol/L Anion Gap (10-20) BUN (9-20) mg/dL Creatinine (0.8-1.5) MG/DL Est GFR ( Amer) Est GFR (Non-Af Amer) POC Glucose (mg/dL) 349 H 303 H (65-110) mg/dL Random Glucose (75-110) mg/dL Calcium (8.6-10.4) mg/dl Phosphorus (2.5-4.5) mg/dL Magnesium (1.6-2.3) mg/dL Total Bilirubin (0.2-1.3) mg/dL AST (17-59) U/L ALT (21-72) U/L Alkaline Phosphatase (38-126) U/L Total Creatine Kinase (55-170) U/L CK-MB (Mass) (0.0-3.38) ng/mL Troponin I, Quant (0.00-0.120) ng/mL Total Protein (6.3-8.3) g/dL Albumin (3.5-5.0) g/dL Globulin (2.2-3.9) gm/dL Albumin/Globulin Ratio (1.0-2.1) 10/18/16 Range/Units 11:13 WBC (4.8-10.8) K/uL RBC (4.40-5.90) Mil/uL Hgb (12.0-18.0) g/dL Hct (35.0-51.0) % MCV (80.0-94.0) fL MCH (27.0-31.0) pg MCHC (33.0-37.0) g/dL RDW (11.5-14.5) % Plt Count (130-400) K/uL MPV (7.2-11.7) fL Neut % (Auto) (50.0-75.0) % Lymph % (Auto) (20.0-40.0) % [place] % (Auto) (0.0-10.0) % Eos % (Auto) (0.0-4.0) % Baso % (Auto) (0.0-2.0) % Neut # (1.8-7.0) K/uL Lymph # (1.0-4.3) K/uL [place] # (0.0-0.8) K/uL Eos # (0.0-0.7) K/uL Baso # (0.0-0.2) K/uL Neutrophils % (Manual) (50-75) % Band Neutrophils % (0-2) % Lymphocytes % (Manual) (20-40) % Monocytes % (Manual) (0-10) % Eosinophils % (Manual) (0-4) % Platelet Estimate (NORMAL) Large Platelets Giant Platelets RBC Morphology Microcytosis (manual) Puncture Site pCO2 (35-45) mm/Hg pO2 (80-100) mm/Hg HCO3 (21-28) mmol/L ABG pH (7.35-7.45) ABG Total CO2 (22-28) mmol/L ABG O2 Saturation (95-98) % ABG Base Excess (-2.0-3.0) mmol/L ABG Hemoglobin (11.7-17.4) g/dL ABG Carboxyhemoglobin (0.5-1.5) % POC ABG HHb (Measured) (0.0-5.0) % ABG Methemoglobin (0.0-3.0) % Philippe Test A-a O2 Difference mm/Hg Respiratory Index Hgb O2 Saturation (95.0-98.0) % Vent Mode FiO2 % Inspiratory BiPAP Expiratory BiPAP Sodium (132-148) mmol/L Potassium (3.6-5.2) mmol/L Chloride (98-107) mmol/L Carbon Dioxide (22-30) mmol/L Anion Gap (10-20) BUN (9-20) mg/dL Creatinine (0.8-1.5) MG/DL Est GFR ( Amer) Est GFR (Non-Af Amer) POC Glucose (mg/dL) 360 H (65-110) mg/dL Random Glucose (75-110) mg/dL Calcium (8.6-10.4) mg/dl Phosphorus (2.5-4.5) mg/dL Magnesium (1.6-2.3) mg/dL Total Bilirubin (0.2-1.3) mg/dL AST (17-59) U/L ALT (21-72) U/L Alkaline Phosphatase (38-126) U/L Total Creatine Kinase (55-170) U/L CK-MB (Mass) (0.0-3.38) ng/mL Troponin I, Quant (0.00-0.120) ng/mL Total Protein (6.3-8.3) g/dL Albumin (3.5-5.0) g/dL Globulin (2.2-3.9) gm/dL Albumin/Globulin Ratio (1.0-2.1) Laboratory Results - last 24 hr 10/18/16 10/18/16 10/18/16 11:13 14:03 16:00 WBC RBC Hgb Hct MCV MCH MCHC RDW Plt Count MPV Neut % (Auto) Lymph % (Auto) [place] % (Auto) Eos % (Auto) Baso % (Auto) Neut # Lymph # [place] # Eos # Baso # Neutrophils % (Manual) Band Neutrophils % Lymphocytes % (Manual) Monocytes % (Manual) Eosinophils % (Manual) Platelet Estimate Large Platelets Giant Platelets RBC Morphology Microcytosis (manual) Puncture Site Rr pCO2 59 H pO2 94 HCO3 25.9 ABG pH 7.30 L ABG Total CO2 30.8 H ABG O2 Saturation 98.7 H ABG Base Excess 1.3 ABG Hemoglobin 13.1 ABG Carboxyhemoglobin 2.2 H POC ABG HHb (Measured) 1.3 ABG Methemoglobin 0.9 Philippe Test Pos A-a O2 Difference 545.0 Respiratory Index 5.8 Hgb O2 Saturation 95.6 Vent Mode Bipap FiO2 100.0 Inspiratory BiPAP 18 Expiratory BiPAP 8 Sodium Potassium Chloride Carbon Dioxide Anion Gap BUN Creatinine Est GFR ( Amer) Est GFR (Non-Af Amer) POC Glucose (mg/dL) 360 H 303 H Random Glucose Calcium Phosphorus Magnesium Total Bilirubin AST ALT Alkaline Phosphatase Total Creatine Kinase CK-MB (Mass) Troponin I, Quant Total Protein Albumin Globulin Albumin/Globulin Ratio 10/18/16 10/18/16 10/18/16 21:09 21:48 21:48 WBC 24.3 H RBC 4.50 Hgb 12.8 Hct 39.8 MCV 88.6 MCH 28.5 MCHC 32.2 L RDW 14.8 H Plt Count 202 MPV 10.1 Neut % (Auto) 89.4 H Lymph % (Auto) 4.1 L [place] % (Auto) 6.0 Eos % (Auto) 0.3 Baso % (Auto) 0.2 Neut # 21.7 H Lymph # 1.0 [place] # 1.5 H Eos # 0.1 Baso # 0.0 Neutrophils % (Manual) 85 H Band Neutrophils % 5 H Lymphocytes % (Manual) 6 L Monocytes % (Manual) 4 Eosinophils % (Manual) Platelet Estimate Normal Large Platelets Present Giant Platelets RBC Morphology Microcytosis (manual) Slight Puncture Site pCO2 pO2 HCO3 ABG pH ABG Total CO2 ABG O2 Saturation ABG Base Excess ABG Hemoglobin ABG Carboxyhemoglobin POC ABG HHb (Measured) ABG Methemoglobin Philippe Test A-a O2 Difference Respiratory Index Hgb O2 Saturation Vent Mode FiO2 Inspiratory BiPAP Expiratory BiPAP Sodium 135 Potassium 5.2 Chloride 93 L Carbon Dioxide 30 Anion Gap 17 BUN 57 H Creatinine 1.3 Est GFR ( Amer) > 60 Est GFR (Non-Af Amer) 59 POC Glucose (mg/dL) 349 H Random Glucose 395 H Calcium 8.0 L Phosphorus Magnesium Total Bilirubin 0.9 AST 23 ALT 36 Alkaline Phosphatase 136 H Total Creatine Kinase 66 CK-MB (Mass) 3.80 H Troponin I, Quant 0.0890 Total Protein 6.8 Albumin 3.3 L Globulin 3.6 Albumin/Globulin Ratio 0.9 L 10/19/16 10/19/16 10/19/16 05:28 06:21 06:23 WBC 26.3 H RBC 4.37 L Hgb 12.5 Hct 38.9 MCV 89.0 MCH 28.6 MCHC 32.1 L RDW 14.4 Plt Count 207 MPV 10.9 Neut % (Auto) 84.8 H Lymph % (Auto) 5.2 L [place] % (Auto) 8.8 Eos % (Auto) 0.9 Baso % (Auto) 0.3 Neut # 22.3 H Lymph # 1.4 [place] # 2.3 H Eos # 0.2 Baso # 0.1 Neutrophils % (Manual) 85 H Band Neutrophils % Lymphocytes % (Manual) 5 L Monocytes % (Manual) 9 Eosinophils % (Manual) 1 Platelet Estimate Normal Large Platelets Present Giant Platelets Present RBC Morphology Normal Microcytosis (manual) Puncture Site Rr pCO2 65 H pO2 55 L HCO3 27.0 ABG pH 7.29 L ABG Total CO2 33.3 H ABG O2 Saturation 92.3 L ABG Base Excess 2.9 ABG Hemoglobin 13.3 ABG Carboxyhemoglobin 2.3 H POC ABG HHb (Measured) 7.4 H ABG Methemoglobin 1.4 Philippe Test Pos A-a O2 Difference 434.0 Respiratory Index 7.9 Hgb O2 Saturation 88.9 L Vent Mode Bipap FiO2 80.0 Inspiratory BiPAP 18 Expiratory BiPAP 8 Sodium 135 Potassium 5.0 Chloride 96 L Carbon Dioxide 30 Anion Gap 14 BUN 62 H Creatinine 1.3 Est GFR ( Amer) > 60 Est GFR (Non-Af Amer) 59 POC Glucose (mg/dL) Random Glucose 314 H Calcium 8.4 L Phosphorus 3.9 Magnesium 2.5 H Total Bilirubin 0.7 AST 21 ALT 30 Alkaline Phosphatase 120 Total Creatine Kinase CK-MB (Mass) Troponin I, Quant Total Protein 6.5 Albumin 3.2 L Globulin 3.4 Albumin/Globulin Ratio 0.9 L 10/19/16 07:47 WBC RBC Hgb Hct MCV MCH MCHC RDW Plt Count MPV Neut % (Auto) Lymph % (Auto) [place] % (Auto) Eos % (Auto) Baso % (Auto) Neut # Lymph # [place] # Eos # Baso # Neutrophils % (Manual) Band Neutrophils % Lymphocytes % (Manual) Monocytes % (Manual) Eosinophils % (Manual) Platelet Estimate Large Platelets Giant Platelets RBC Morphology Microcytosis (manual) Puncture Site pCO2 pO2 HCO3 ABG pH ABG Total CO2 ABG O2 Saturation ABG Base Excess ABG Hemoglobin ABG Carboxyhemoglobin POC ABG HHb (Measured) ABG Methemoglobin Philippe Test A-a O2 Difference Respiratory Index Hgb O2 Saturation Vent Mode FiO2 Inspiratory BiPAP Expiratory BiPAP Sodium Potassium Chloride Carbon Dioxide Anion Gap BUN Creatinine Est GFR ( Amer) Est GFR (Non-Af Amer) POC Glucose (mg/dL) 272 H Random Glucose Calcium Phosphorus Magnesium Total Bilirubin AST ALT Alkaline Phosphatase Total Creatine Kinase CK-MB (Mass) Troponin I, Quant Total Protein Albumin Globulin Albumin/Globulin Ratio Fingerstick Blood Sugar Results: 303 Review of Systems - Constitutional Constitutional: absent: Fever - Cardiovascular Cardiovascular: Dyspnea (improving). absent: Chest Pain, Edema, Pedal Edema - Respiratory Respiratory: Dyspnea (improving). absent: Cough - Gastrointestinal Gastrointestinal: absent: Abdominal Pain, Constipation, Diarrhea, Nausea, Vomiting - Genitourinary Genitourinary: absent: Dysuria - Neurological Neurological: absent: Dizziness Critical Care Progress Note - Nutrition Nutrition: Nutrition Category Date Time Status Renal Diet [DIET] Diets 10/15/16 Breakfast Active Assessment/Plan - Assessment and Plan (Free Text) Assessment: Patient status: Transferred to ICU for respiratory insufficiency/pulmonary edema Neuro: AAOX3 CV: - Hx of CHF - ECHO: normal bi-ventricular function, no gross valvular abnormality, no pericardial effusion. LVEF 74.3% - Continue Lasix 40mg - ASA 81mg daily - Crestor 20mg PO HS - ECG(10/14/16): Normal sinus rhythm at 93 bpm; RBBB - Hx of DVT: IVF filter placed; Apixaban 5mg PO BID - Fluid restriction (1,000ml) Pulmonary: - Acute pulmonary edema likely 2/2 to worsening CHF - Patient given 40mg Lasix; continue Lasix tx - ABG (10/18/16): respiratory acidosis (pH 7.30; pCO2: 59) - Discontinued BiPAP 10/19, started high-flow nasal canula - Hx of asthma - Continue Solu-medrol 40mg IVP Daily - Continue Montelukast 10mg PO HS - Continue Duoneb 3ml INH RQ6 prn SOB - Advair 250/50 1 puff IH RQ12 Imaging: - CXR (10/19): improving bilateral diffuse alveolar opacity; congestive change. - CXR(10/18): Worsening dense diffuse increased airspace opacities throughout both lungs suggestive for worsening edema and or infiltrate now severe; Cardiomegaly. - CT chest (10/14): 1. Chronic interstitial pulmonary disease is appreciated with somewhat reticular nodular component increase of the bladder apices slightly. No definitive alveolitis pleural or pericardial effusion. Lack axis appears slightly increased in the bilateral bases. 2. Mediastinal lymphadenopathy appreciated without significant interval change. Bilateral hilar adenopathy remains likely but is poorly evaluated due to lack of intravenous contrast. 3. Incidental cholelithiasis. - CXR (10/14): Cardiomegaly, increased interstitial markings likely interstitial / cardiogenic edema. - CXR: f/u in AM GI: - No acute issues Hematology: - No acute issues Endocrine: - Hx of DM - Continue Novolog SC - Continue Levemir 25 units SC Q12 - Monitor daily glucose Renal: - Worsening renal insufficiency - Continue to trend renal functions - Hyperkalemia --> resolved; continue to monitor daily - Nephrology consult- Dr. Rhoades Musculoskeletal: - No acute issues Genitourinary: - No acute issues - UA x2: negative Infectious disease: - Leukocytosis likely 2/2 to pneumonia - Continue Ceftriaxone 1gm daily - Continue Ofloxacin 0.5 ml AU BID - Azithryomycin 500mg IV daily started 10/19 - Procalcitonin: f/u Imaging: - CT facial bones (10/14): 1. Findings are most compatible with acute right mastoiditis and otitis media. No evidence of coalescent mastoiditis. 2. Normal CT scan of the left temporal bone without contrast. Prophylaxis: - DVT prophylaxis: Apixaban 5mg PO BID Patient has IVC filter placed by Dr. Ortega in May 2016 - GI: Pepcid 20mg PO daily - ASA 81mg PO daily <Alex Cruz - Last Filed: 10/19/16 17:33> CCU Objective - Vital Signs / Intake & Output Vital Signs (Last 4 hours): Vital Signs Temp Pulse Resp BP Pulse Ox 10/19/16 17:07 90 22 138/79 94 L 10/19/16 16:08 94 H 22 144/79 90 L 10/19/16 16:00 98.8 F 10/19/16 15:56 22 10/19/16 15:08 93 H 17 128/66 93 L 10/19/16 14:06 98 H 26 H 135/72 93 L 10/19/16 14:04 20 Intake and Output (Last 8hrs): Intake & Output 10/19/16 10/19/16 10/19/16 06:59 14:59 22:59 Intake Total 640 835 Output Total 700 1700 1075 Balance -60 -865 -1075 Intake: Intake, IV Amount 475 Left Hand 475 Oral 640 360 Output: Urine 842 259 6516 Urine, Voided 892 140 3075 Stool 1300 - Medications Active Medications: Active Medications Generic Name Dose Route Start Last Admin Trade Name Freq PRN Reason Stop Dose Admin Albuterol/Ipratropium 3 ml 10/19/16 14:06 Duoneb 3 Mg/0.5 Mg (3 Ml) Ud INH RQ6 ANABELLA Apixaban 5 mg 10/14/16 18:00 10/19/16 09:59 Eliquis PO 5 mg BID ANABELLA Administration Aspirin 81 mg 10/15/16 10:00 10/19/16 09:59 Aspirin Chewable PO 81 mg DAILY ANABELLA Administration Famotidine 20 mg 10/19/16 10:00 10/19/16 10:07 Pepcid PO 20 mg DAILY ANABELLA Administration Furosemide 40 mg 10/18/16 18:00 10/19/16 09:59 Lasix IVP 40 mg BID ANABELLA Administration Guaifenesin 100 mg 10/17/16 18:01 10/17/16 20:24 Robitussin PO 100 mg Q4H PRN Administration Cough Ceftriaxone Sodium 1 gm/ 100 mls @ 200 mls/hr 10/14/16 13:00 10/19/16 10:07 Sodium Chloride IVPB 200 mls/hr DAILY ANABELLA Administration Azithromycin 500 mg/ Sodium 250 mls @ 250 mls/hr 10/19/16 10:00 10/19/16 12: 33 Chloride IVPB 250 mls/hr DAILY ANABELLA Administration Vancomycin HCl 500 mg/ Sodium 100 mls @ 100 mls/hr 10/19/16 12:30 10/19/16 16 :10 Chloride IVPB 100 mls/hr DAILY ANABELLA Administration Insulin Aspart 0 unit 10/15/16 11:30 10/19/16 17:16 Novolog SC 8 unit ACHS ANABELLA Administration Protocol Insulin Detemir 25 unit 10/18/16 08:34 10/19/16 10:08 Levemir SC 25 unit Q12 ANABELLA Administration Methylprednisolone 40 mg 10/19/16 10:00 10/19/16 10:06 Solu-Medrol IVP 40 mg DAILY ANABELLA Administration Montelukast Sodium 10 mg 10/14/16 22:00 10/18/16 21:19 Singulair PO 10 mg HS ANABELLA Administration Ofloxacin 0.5 ml 10/14/16 18:00 10/19/16 09:59 Floxin 0.3% Otic Soln AU 2 drop BID ANABELLA Administration Rosuvastatin Calcium 20 mg 10/14/16 22:00 10/18/16 21:19 Crestor PO 20 mg HS ANABELLA Administration Fluticasone/Salmeterol 1 puff 10/14/16 22:00 10/19/16 07:57 Advair Diskus 250/50 IH 1 puff RQ12 ANABELLA Administration - Patient Studies Lab Studies: Microbiology Studies 10/18/16 12:30 MRSA Culture (Admit) - Final Nose MRSA NOT DETECTED Lab Studies 10/19/16 10/19/16 10/19/16 Range/Units 16:07 13:20 11:33 WBC (4.8-10.8) K/uL RBC (4.40-5.90) Mil/uL Hgb (12.0-18.0) g/dL Hct (35.0-51.0) % MCV (80.0-94.0) fL MCH (27.0-31.0) pg MCHC (33.0-37.0) g/dL RDW (11.5-14.5) % Plt Count (130-400) K/uL MPV (7.2-11.7) fL Neut % (Auto) (50.0-75.0) % Lymph % (Auto) (20.0-40.0) % [place] % (Auto) (0.0-10.0) % Eos % (Auto) (0.0-4.0) % Baso % (Auto) (0.0-2.0) % Neut # (1.8-7.0) K/uL Lymph # (1.0-4.3) K/uL [place] # (0.0-0.8) K/uL Eos # (0.0-0.7) K/uL Baso # (0.0-0.2) K/uL Neutrophils % (Manual) (50-75) % Band Neutrophils % (0-2) % Lymphocytes % (Manual) (20-40) % Monocytes % (Manual) (0-10) % Eosinophils % (Manual) (0-4) % Platelet Estimate (NORMAL) Large Platelets Giant Platelets RBC Morphology Microcytosis (manual) Puncture Site Rr pCO2 53 H (35-45) mm/Hg pO2 54 L (80-100) mm/Hg HCO3 26.1 (21-28) mmol/L ABG pH 7.34 L (7.35-7.45) ABG Total CO2 30.2 H (22-28) mmol/L ABG O2 Saturation 92.8 L (95-98) % ABG Base Excess 1.8 (-2.0-3.0) mmol/L ABG Hemoglobin 13.3 (11.7-17.4) g/dL ABG Carboxyhemoglobin 2.2 H (0.5-1.5) % POC ABG HHb (Measured) 6.9 H (0.0-5.0) % ABG Methemoglobin 1.4 (0.0-3.0) % Philippe Test Pos A-a O2 Difference 593.0 mm/Hg Respiratory Index 11.0 Hgb O2 Saturation 89.5 L (95.0-98.0) % Vent Mode FiO2 100.0 % Inspiratory BiPAP Expiratory BiPAP Sodium (132-148) mmol/L Potassium (3.6-5.2) mmol/L Chloride (98-107) mmol/L Carbon Dioxide (22-30) mmol/L Anion Gap (10-20) BUN (9-20) mg/dL Creatinine (0.8-1.5) MG/DL Est GFR ( Amer) Est GFR (Non-Af Amer) POC Glucose (mg/dL) 307 H 358 H (65-110) mg/dL Random Glucose (75-110) mg/dL Calcium (8.6-10.4) mg/dl Phosphorus (2.5-4.5) mg/dL Magnesium (1.6-2.3) mg/dL Total Bilirubin (0.2-1.3) mg/dL AST (17-59) U/L ALT (21-72) U/L Alkaline Phosphatase (38-126) U/L Total Creatine Kinase (55-170) U/L CK-MB (Mass) (0.0-3.38) ng/mL Troponin I, Quant (0.00-0.120) ng/mL Total Protein (6.3-8.3) g/dL Albumin (3.5-5.0) g/dL Globulin (2.2-3.9) gm/dL Albumin/Globulin Ratio (1.0-2.1) Procalcitonin (0.19-0.49) NG/ML 10/19/16 10/19/16 10/19/16 Range/Units 11:23 07:47 06:23 WBC 26.3 H (4.8-10.8) K/uL RBC 4.37 L (4.40-5.90) Mil/uL Hgb 12.5 (12.0-18.0) g/dL Hct 38.9 (35.0-51.0) % MCV 89.0 (80.0-94.0) fL MCH 28.6 (27.0-31.0) pg MCHC 32.1 L (33.0-37.0) g/dL RDW 14.4 (11.5-14.5) % Plt Count 207 (130-400) K/uL MPV 10.9 (7.2-11.7) fL Neut % (Auto) 84.8 H (50.0-75.0) % Lymph % (Auto) 5.2 L (20.0-40.0) % [place] % (Auto) 8.8 (0.0-10.0) % Eos % (Auto) 0.9 (0.0-4.0) % Baso % (Auto) 0.3 (0.0-2.0) % Neut # 22.3 H (1.8-7.0) K/uL Lymph # 1.4 (1.0-4.3) K/uL [place] # 2.3 H (0.0-0.8) K/uL Eos # 0.2 (0.0-0.7) K/uL Baso # 0.1 (0.0-0.2) K/uL Neutrophils % (Manual) 85 H (50-75) % Band Neutrophils % (0-2) % Lymphocytes % (Manual) 5 L (20-40) % Monocytes % (Manual) 9 (0-10) % Eosinophils % (Manual) 1 (0-4) % Platelet Estimate Normal (NORMAL) Large Platelets Present Giant Platelets Present RBC Morphology Normal Microcytosis (manual) Puncture Site pCO2 (35-45) mm/Hg pO2 (80-100) mm/Hg HCO3 (21-28) mmol/L ABG pH (7.35-7.45) ABG Total CO2 (22-28) mmol/L ABG O2 Saturation (95-98) % ABG Base Excess (-2.0-3.0) mmol/L ABG Hemoglobin (11.7-17.4) g/dL ABG Carboxyhemoglobin (0.5-1.5) % POC ABG HHb (Measured) (0.0-5.0) % ABG Methemoglobin (0.0-3.0) % Philippe Test A-a O2 Difference mm/Hg Respiratory Index Hgb O2 Saturation (95.0-98.0) % Vent Mode FiO2 % Inspiratory BiPAP Expiratory BiPAP Sodium (132-148) mmol/L Potassium (3.6-5.2) mmol/L Chloride (98-107) mmol/L Carbon Dioxide (22-30) mmol/L Anion Gap (10-20) BUN (9-20) mg/dL Creatinine (0.8-1.5) MG/DL Est GFR ( Amer) Est GFR (Non-Af Amer) POC Glucose (mg/dL) 272 H (65-110) mg/dL Random Glucose (75-110) mg/dL Calcium (8.6-10.4) mg/dl Phosphorus (2.5-4.5) mg/dL Magnesium (1.6-2.3) mg/dL Total Bilirubin (0.2-1.3) mg/dL AST (17-59) U/L ALT (21-72) U/L Alkaline Phosphatase (38-126) U/L Total Creatine Kinase (55-170) U/L CK-MB (Mass) (0.0-3.38) ng/mL Troponin I, Quant (0.00-0.120) ng/mL Total Protein (6.3-8.3) g/dL Albumin (3.5-5.0) g/dL Globulin (2.2-3.9) gm/dL Albumin/Globulin Ratio (1.0-2.1) Procalcitonin 0.86 H (0.19-0.49) NG/ML 10/19/16 10/19/16 10/18/16 Range/Units 06:21 05:28 21:48 WBC (4.8-10.8) K/uL RBC (4.40-5.90) Mil/uL Hgb (12.0-18.0) g/dL Hct (35.0-51.0) % MCV (80.0-94.0) fL MCH (27.0-31.0) pg MCHC (33.0-37.0) g/dL RDW (11.5-14.5) % Plt Count (130-400) K/uL MPV (7.2-11.7) fL Neut % (Auto) (50.0-75.0) % Lymph % (Auto) (20.0-40.0) % [place] % (Auto) (0.0-10.0) % Eos % (Auto) (0.0-4.0) % Baso % (Auto) (0.0-2.0) % Neut # (1.8-7.0) K/uL Lymph # (1.0-4.3) K/uL [place] # (0.0-0.8) K/uL Eos # (0.0-0.7) K/uL Baso # (0.0-0.2) K/uL Neutrophils % (Manual) (50-75) % Band Neutrophils % (0-2) % Lymphocytes % (Manual) (20-40) % Monocytes % (Manual) (0-10) % Eosinophils % (Manual) (0-4) % Platelet Estimate (NORMAL) Large Platelets Giant Platelets RBC Morphology Microcytosis (manual) Puncture Site Rr pCO2 65 H (35-45) mm/Hg pO2 55 L (80-100) mm/Hg HCO3 27.0 (21-28) mmol/L ABG pH 7.29 L (7.35-7.45) ABG Total CO2 33.3 H (22-28) mmol/L ABG O2 Saturation 92.3 L (95-98) % ABG Base Excess 2.9 (-2.0-3.0) mmol/L ABG Hemoglobin 13.3 (11.7-17.4) g/dL ABG Carboxyhemoglobin 2.3 H (0.5-1.5) % POC ABG HHb (Measured) 7.4 H (0.0-5.0) % ABG Methemoglobin 1.4 (0.0-3.0) % Philippe Test Pos A-a O2 Difference 434.0 mm/Hg Respiratory Index 7.9 Hgb O2 Saturation 88.9 L (95.0-98.0) % Vent Mode Bipap FiO2 80.0 % Inspiratory BiPAP 18 Expiratory BiPAP 8 Sodium 135 135 (132-148) mmol/L Potassium 5.0 5.2 (3.6-5.2) mmol/L Chloride 96 L 93 L (98-107) mmol/L Carbon Dioxide 30 30 (22-30) mmol/L Anion Gap 14 17 (10-20) BUN 62 H 57 H (9-20) mg/dL Creatinine 1.3 1.3 (0.8-1.5) MG/DL Est GFR ( Amer) > 60 > 60 Est GFR (Non-Af Amer) 59 59 POC Glucose (mg/dL) (65-110) mg/dL Random Glucose 314 H 395 H (75-110) mg/dL Calcium 8.4 L 8.0 L (8.6-10.4) mg/dl Phosphorus 3.9 (2.5-4.5) mg/dL Magnesium 2.5 H (1.6-2.3) mg/dL Total Bilirubin 0.7 0.9 (0.2-1.3) mg/dL AST 21 23 (17-59) U/L ALT 30 36 (21-72) U/L Alkaline Phosphatase 120 136 H (38-126) U/L Total Creatine Kinase 66 (55-170) U/L CK-MB (Mass) 3.80 H (0.0-3.38) ng/mL Troponin I, Quant 0.0890 (0.00-0.120) ng/mL Total Protein 6.5 6.8 (6.3-8.3) g/dL Albumin 3.2 L 3.3 L (3.5-5.0) g/dL Globulin 3.4 3.6 (2.2-3.9) gm/dL Albumin/Globulin Ratio 0.9 L 0.9 L (1.0-2.1) Procalcitonin (0.19-0.49) NG/ML 10/18/16 10/18/16 Range/Units 21:48 21:09 WBC 24.3 H (4.8-10.8) K/uL RBC 4.50 (4.40-5.90) Mil/uL Hgb 12.8 (12.0-18.0) g/dL Hct 39.8 (35.0-51.0) % MCV 88.6 (80.0-94.0) fL MCH 28.5 (27.0-31.0) pg MCHC 32.2 L (33.0-37.0) g/dL RDW 14.8 H (11.5-14.5) % Plt Count 202 (130-400) K/uL MPV 10.1 (7.2-11.7) fL Neut % (Auto) 89.4 H (50.0-75.0) % Lymph % (Auto) 4.1 L (20.0-40.0) % [place] % (Auto) 6.0 (0.0-10.0) % Eos % (Auto) 0.3 (0.0-4.0) % Baso % (Auto) 0.2 (0.0-2.0) % Neut # 21.7 H (1.8-7.0) K/uL Lymph # 1.0 (1.0-4.3) K/uL [place] # 1.5 H (0.0-0.8) K/uL Eos # 0.1 (0.0-0.7) K/uL Baso # 0.0 (0.0-0.2) K/uL Neutrophils % (Manual) 85 H (50-75) % Band Neutrophils % 5 H (0-2) % Lymphocytes % (Manual) 6 L (20-40) % Monocytes % (Manual) 4 (0-10) % Eosinophils % (Manual) (0-4) % Platelet Estimate Normal (NORMAL) Large Platelets Present Giant Platelets RBC Morphology Microcytosis (manual) Slight Puncture Site pCO2 (35-45) mm/Hg pO2 (80-100) mm/Hg HCO3 (21-28) mmol/L ABG pH (7.35-7.45) ABG Total CO2 (22-28) mmol/L ABG O2 Saturation (95-98) % ABG Base Excess (-2.0-3.0) mmol/L ABG Hemoglobin (11.7-17.4) g/dL ABG Carboxyhemoglobin (0.5-1.5) % POC ABG HHb (Measured) (0.0-5.0) % ABG Methemoglobin (0.0-3.0) % Philippe Test A-a O2 Difference mm/Hg Respiratory Index Hgb O2 Saturation (95.0-98.0) % Vent Mode FiO2 % Inspiratory BiPAP Expiratory BiPAP Sodium (132-148) mmol/L Potassium (3.6-5.2) mmol/L Chloride (98-107) mmol/L Carbon Dioxide (22-30) mmol/L Anion Gap (10-20) BUN (9-20) mg/dL Creatinine (0.8-1.5) MG/DL Est GFR ( Amer) Est GFR (Non-Af Amer) POC Glucose (mg/dL) 349 H (65-110) mg/dL Random Glucose (75-110) mg/dL Calcium (8.6-10.4) mg/dl Phosphorus (2.5-4.5) mg/dL Magnesium (1.6-2.3) mg/dL Total Bilirubin (0.2-1.3) mg/dL AST (17-59) U/L ALT (21-72) U/L Alkaline Phosphatase (38-126) U/L Total Creatine Kinase (55-170) U/L CK-MB (Mass) (0.0-3.38) ng/mL Troponin I, Quant (0.00-0.120) ng/mL Total Protein (6.3-8.3) g/dL Albumin (3.5-5.0) g/dL Globulin (2.2-3.9) gm/dL Albumin/Globulin Ratio (1.0-2.1) Procalcitonin (0.19-0.49) NG/ML Laboratory Results - last 24 hr 10/18/16 10/18/16 10/18/16 21:09 21:48 21:48 WBC 24.3 H RBC 4.50 Hgb 12.8 Hct 39.8 MCV 88.6 MCH 28.5 MCHC 32.2 L RDW 14.8 H Plt Count 202 MPV 10.1 Neut % (Auto) 89.4 H Lymph % (Auto) 4.1 L [place] % (Auto) 6.0 Eos % (Auto) 0.3 Baso % (Auto) 0.2 Neut # 21.7 H Lymph # 1.0 [place] # 1.5 H Eos # 0.1 Baso # 0.0 Neutrophils % (Manual) 85 H Band Neutrophils % 5 H Lymphocytes % (Manual) 6 L Monocytes % (Manual) 4 Eosinophils % (Manual) Platelet Estimate Normal Large Platelets Present Giant Platelets RBC Morphology Microcytosis (manual) Slight Puncture Site pCO2 pO2 HCO3 ABG pH ABG Total CO2 ABG O2 Saturation ABG Base Excess ABG Hemoglobin ABG Carboxyhemoglobin POC ABG HHb (Measured) ABG Methemoglobin Philippe Test A-a O2 Difference Respiratory Index Hgb O2 Saturation Vent Mode FiO2 Inspiratory BiPAP Expiratory BiPAP Sodium 135 Potassium 5.2 Chloride 93 L Carbon Dioxide 30 Anion Gap 17 BUN 57 H Creatinine 1.3 Est GFR ( Amer) > 60 Est GFR (Non-Af Amer) 59 POC Glucose (mg/dL) 349 H Random Glucose 395 H Calcium 8.0 L Phosphorus Magnesium Total Bilirubin 0.9 AST 23 ALT 36 Alkaline Phosphatase 136 H Total Creatine Kinase 66 CK-MB (Mass) 3.80 H Troponin I, Quant 0.0890 Total Protein 6.8 Albumin 3.3 L Globulin 3.6 Albumin/Globulin Ratio 0.9 L Procalcitonin 10/19/16 10/19/16 10/19/16 05:28 06:21 06:23 WBC 26.3 H RBC 4.37 L Hgb 12.5 Hct 38.9 MCV 89.0 MCH 28.6 MCHC 32.1 L RDW 14.4 Plt Count 207 MPV 10.9 Neut % (Auto) 84.8 H Lymph % (Auto) 5.2 L [place] % (Auto) 8.8 Eos % (Auto) 0.9 Baso % (Auto) 0.3 Neut # 22.3 H Lymph # 1.4 [place] # 2.3 H Eos # 0.2 Baso # 0.1 Neutrophils % (Manual) 85 H Band Neutrophils % Lymphocytes % (Manual) 5 L Monocytes % (Manual) 9 Eosinophils % (Manual) 1 Platelet Estimate Normal Large Platelets Present Giant Platelets Present RBC Morphology Normal Microcytosis (manual) Puncture Site Rr pCO2 65 H pO2 55 L HCO3 27.0 ABG pH 7.29 L ABG Total CO2 33.3 H ABG O2 Saturation 92.3 L ABG Base Excess 2.9 ABG Hemoglobin 13.3 ABG Carboxyhemoglobin 2.3 H POC ABG HHb (Measured) 7.4 H ABG Methemoglobin 1.4 Philippe Test Pos A-a O2 Difference 434.0 Respiratory Index 7.9 Hgb O2 Saturation 88.9 L Vent Mode Bipap FiO2 80.0 Inspiratory BiPAP 18 Expiratory BiPAP 8 Sodium 135 Potassium 5.0 Chloride 96 L Carbon Dioxide 30 Anion Gap 14 BUN 62 H Creatinine 1.3 Est GFR ( Amer) > 60 Est GFR (Non-Af Amer) 59 POC Glucose (mg/dL) Random Glucose 314 H Calcium 8.4 L Phosphorus 3.9 Magnesium 2.5 H Total Bilirubin 0.7 AST 21 ALT 30 Alkaline Phosphatase 120 Total Creatine Kinase CK-MB (Mass) Troponin I, Quant Total Protein 6.5 Albumin 3.2 L Globulin 3.4 Albumin/Globulin Ratio 0.9 L Procalcitonin 10/19/16 10/19/16 10/19/16 07:47 11:23 11:33 WBC RBC Hgb Hct MCV MCH MCHC RDW Plt Count MPV Neut % (Auto) Lymph % (Auto) [place] % (Auto) Eos % (Auto) Baso % (Auto) Neut # Lymph # [place] # Eos # Baso # Neutrophils % (Manual) Band Neutrophils % Lymphocytes % (Manual) Monocytes % (Manual) Eosinophils % (Manual) Platelet Estimate Large Platelets Giant Platelets RBC Morphology Microcytosis (manual) Puncture Site pCO2 pO2 HCO3 ABG pH ABG Total CO2 ABG O2 Saturation ABG Base Excess ABG Hemoglobin ABG Carboxyhemoglobin POC ABG HHb (Measured) ABG Methemoglobin Philippe Test A-a O2 Difference Respiratory Index Hgb O2 Saturation Vent Mode FiO2 Inspiratory BiPAP Expiratory BiPAP Sodium Potassium Chloride Carbon Dioxide Anion Gap BUN Creatinine Est GFR ( Amer) Est GFR (Non-Af Amer) POC Glucose (mg/dL) 272 H 358 H Random Glucose Calcium Phosphorus Magnesium Total Bilirubin AST ALT Alkaline Phosphatase Total Creatine Kinase CK-MB (Mass) Troponin I, Quant Total Protein Albumin Globulin Albumin/Globulin Ratio Procalcitonin 0.86 H 10/19/16 10/19/16 13:20 16:07 WBC RBC Hgb Hct MCV MCH MCHC RDW Plt Count MPV Neut % (Auto) Lymph % (Auto) [place] % (Auto) Eos % (Auto) Baso % (Auto) Neut # Lymph # [place] # Eos # Baso # Neutrophils % (Manual) Band Neutrophils % Lymphocytes % (Manual) Monocytes % (Manual) Eosinophils % (Manual) Platelet Estimate Large Platelets Giant Platelets RBC Morphology Microcytosis (manual) Puncture Site Rr pCO2 53 H pO2 54 L HCO3 26.1 ABG pH 7.34 L ABG Total CO2 30.2 H ABG O2 Saturation 92.8 L ABG Base Excess 1.8 ABG Hemoglobin 13.3 ABG Carboxyhemoglobin 2.2 H POC ABG HHb (Measured) 6.9 H ABG Methemoglobin 1.4 Philippe Test Pos A-a O2 Difference 593.0 Respiratory Index 11.0 Hgb O2 Saturation 89.5 L Vent Mode FiO2 100.0 Inspiratory BiPAP Expiratory BiPAP Sodium Potassium Chloride Carbon Dioxide Anion Gap BUN Creatinine Est GFR ( Amer) Est GFR (Non-Af Amer) POC Glucose (mg/dL) 307 H Random Glucose Calcium Phosphorus Magnesium Total Bilirubin AST ALT Alkaline Phosphatase Total Creatine Kinase CK-MB (Mass) Troponin I, Quant Total Protein Albumin Globulin Albumin/Globulin Ratio Procalcitonin Critical Care Progress Note - Nutrition Nutrition: Nutrition Category Date Time Status Renal Diet [DIET] Diets 10/15/16 Breakfast Active Attending/Attestation - Attestation I have personally seen and examined this patient.: Yes I have fully participated in the care of the patient.: Yes I have reviewed all pertinent clinical information: Yes Notes (Text): 10/19/16 17:32 Patient seen and examined in the intensive care unit. Case discussed with house staff in the morning. Clinically patient feels better and less short of breath but remained hypoxic Patient placed on high flow oxygen Continue diuretics Continue antibiotics with elevated pro calcitonin Fluid restriction
[2016-10-19] MEDS: Ofloxacin 0.3% Otic Soln AU SCH ×2 (09:59→18:52)
[2016-10-19] MEDS: MethylPREDNISolone 40 mg Vial IVP SCH (10:06)
[2016-10-19] MEDS: Insulin Detemir 100 units/ml Vial (Levemir) SC SCH ×2 (10:08→21:12)
[2016-10-19] MEDS: Azithromycin 500 MG in Sodium Chloride 0.9% 250 ML IVPB SCH (12:33)
[2016-10-19 13:24] LABS: ABG ALLEN TEST POS; ARTERIAL BLOOD HGB O2 SAT 89.5 % (95.0-98.0); CARBOXYHEMOGLOBIN 2.2 % (0.5-1.5); DRAW SITE RR; HHB 6.9 % (0.0-5.0); METHEMOGLOBIN 1.4 % (0.0-3.0)
[2016-10-19] MEDS: Albuterol-Ipratrop 3 mg / 0.5 (3 ml) UD INH SCH (19:36)
--- NOTE | 2016-10-19 20:36 | CP.PCM.PN ---
Subjective - Date & Time of Evaluation Date of Evaluation: 10/19/16 Time of Evaluation: 20:34 - Subjective Subjective: Patient today still on high flow FiO2. High flow oxygen on. Patient saturation is still not improving. Currently patient is on BiPAP with 80%. Saturation is 92% Patient is not in any distress. He is able to communicate, and he is able to complete a sentence, no tachypnea, no tachycardia noted. Currently patient is on Lasix 40 mg twice a day. IV fluid is being controlled, intake and output is controlled On examination: Chest bilateral wheezing and rales noted regular heart sound pedal edema noted Chest x-ray bilateral infiltrative changes noted Mild elevation of the pro-calcitonin noted. Assessment and recommendation: 46-year-old male with history of diabetes, hypertension, history of DVT pulmonary embolism, on anticoagulation. History of renal insufficiency in the past also dialysis in the past. Uncontrolled diabetes noted, currently having bilateral infiltrative changes, possibly ARDS, on antibiotic, azithromycin, vancomycin added today. We will get a blood culture the urine culture, septic workup. Overall prognosis is guarded and will follow the patient Objective - Vital Signs/Intake and Output Vital Signs (last 24 hours): Temp Pulse Resp BP Pulse Ox 98.1 F 88 25 H 144/79 93 L 10/19/16 20:00 10/19/16 20:08 10/19/16 20:08 10/19/16 20:08 10/19/16 20:08 Intake and Output: 10/19/16 10/20/16 18:59 06:59 Intake Total 1035 Output Total 2775 350 Balance -1740 -350 - Medications Medications: Current Medications Albuterol/Ipratropium (Duoneb 3 Mg/0.5 Mg (3 Ml) Ud) 3 ml INH RQ6 [facility] Last Admin: 10/19/16 19:36 Dose: 3 ml Apixaban (Eliquis) 5 mg PO BID [facility] Last Admin: 10/19/16 18:52 Dose: 5 mg Aspirin (Aspirin Chewable) 81 mg PO DAILY [facility] Last Admin: 10/19/16 09:59 Dose: 81 mg Famotidine (Pepcid) 20 mg PO DAILY [facility] Last Admin: 10/19/16 10:07 Dose: 20 mg Furosemide (Lasix) 40 mg IVP BID [facility] Last Admin: 10/19/16 18:53 Dose: 40 mg Guaifenesin (Robitussin) 100 mg PO Q4H PRN PRN Reason: Cough Last Admin: 10/17/16 20:24 Dose: 100 mg Ceftriaxone Sodium 1 gm/ (Sodium Chloride) 100 mls @ 200 mls/hr IVPB DAILY [facility] Last Admin: 10/19/16 10:07 Dose: 200 mls/hr Azithromycin 500 mg/ Sodium (Chloride) 250 mls @ 250 mls/hr IVPB DAILY [facility] Last Admin: 10/19/16 12:33 Dose: 250 mls/hr Vancomycin HCl 500 mg/ Sodium (Chloride) 100 mls @ 100 mls/hr IVPB DAILY [facility] Last Admin: 10/19/16 16:10 Dose: 100 mls/hr Insulin Aspart (Novolog) 0 unit SC ACHS [facility] PRN Reason: Protocol Last Admin: 10/19/16 17:16 Dose: 8 unit Insulin Detemir (Levemir) 25 unit SC Q12 [facility] Last Admin: 10/19/16 10:08 Dose: 25 unit Methylprednisolone (Solu-Medrol) 40 mg IVP DAILY [facility] Last Admin: 10/19/16 10:06 Dose: 40 mg Montelukast Sodium (Singulair) 10 mg PO HS [facility] Last Admin: 10/18/16 21:19 Dose: 10 mg Ofloxacin (Floxin 0.3% Otic Soln) 0.5 ml AU BID [facility] Last Admin: 10/19/16 18:52 Dose: 2 drop Rosuvastatin Calcium (Crestor) 20 mg PO HS [facility] Last Admin: 10/18/16 21:19 Dose: 20 mg Fluticasone/Salmeterol (Advair Diskus 250/50) 1 puff IH RQ12 [facility] Last Admin: 10/19/16 19:35 Dose: 1 puff - Labs Labs: 10/19/16 06:23 10/19/16 06:21
[2016-10-19 21:21] LABS: RBC URINE 1 /hpf (0-3); URINE BACTERIA RARE (<OCC); URINE BILIRUBIN NEGATIVE (NEGATIVE); URINE BLOOD NEGATIVE (NEGATIVE); URINE COLOR Straw (YELLOW); URINE GLUCOSE (UA) 3+ mg/dL (Normal); URINE KETONE NEGATIVE (NEGATIVE); URINE LEUKOCYTE ESTERASE NEG Leu/uL (Negative); URINE PROTEIN 2+ mg/dL (NEGATIVE); URINE UROBILINOGEN NORMAL mg/dL (0.2-1.0); WBC URINE < 1 /hpf (0-5)
[2016-10-20] MEDS: Albuterol-Ipratrop 3 mg / 0.5 (3 ml) UD INH SCH ×4 (01:18→19:33)
[2016-10-20 05:44] LABS: ABG ALLEN TEST POS; ARTERIAL BLOOD GAS MODE BiPAP; ARTERIAL BLOOD HGB O2 SAT 90.8 % (95.0-98.0); CARBOXYHEMOGLOBIN 2.3 % (0.5-1.5); DRAW SITE RR; HHB 5.8 % (0.0-5.0); METHEMOGLOBIN 1.1 % (0.0-3.0)
[2016-10-20 06:44] LABS: BASO # 0.1 K/uL (0.0-0.2); BASO % 0.2 % (0.0-2.0); EOS # 0.1 K/uL (0.0-0.7); EOS % 0.4 % (0.0-4.0); HEMATOCRIT 39.4 % (35.0-51.0); LYMPH # 1.7 K/uL (1.0-4.3); LYMPH % 6.6 % (20.0-40.0); MEAN CELL VOLUME 88.5 fL (80.0-94.0); MEAN CORPUSCULAR HEMOGLOBIN 28.9 pg (27.0-31.0); MEAN CORPUSCULAR HGB CONC 32.6 g/dL (33.0-37.0); MONO # 2.1 K/uL (0.0-0.8); MONO % 8.2 % (0.0-10.0); NRBC % 0.1 % (0.0-2.0); PLATELET COUNT 231 K/uL (130-400); RED CELL DISTRIBUTION WIDTH 14.5 % (11.5-14.5); WHITE BLOOD COUNT 26.2 K/uL (4.8-10.8)
[2016-10-20 06:51] LABS: ALKALINE PHOSPHATASE 128 U/L (38-126); ALT/SGPT 35 U/L (21-72); AST/SGOT 24 U/L (17-59); BILIRUBIN,TOTAL 0.7 mg/dL (0.2-1.3); BLOOD UREA NITROGEN 62 mg/dL (9-20); CALCIUM 8.6 mg/dl (8.6-10.4); CARBON DIOXIDE 33 mmol/L (22-30); CHLORIDE 95 mmol/L (98-107); GFR AFRICAN-AMERICAN > 60; GLUCOSE,RANDOM 277 mg/dL (75-110); MAGNESIUM 2.4 mg/dL (1.6-2.3); POTASSIUM 5.5 mmol/L (3.6-5.2); SODIUM 136 mmol/L (132-148); TOTAL PROTEIN 6.5 g/dL (6.3-8.3)
[2016-10-20] MEDS: Fluticasone-Salmeterol 250-50mcg Diskus IH SCH ×2 (07:41→19:36)
[2016-10-20] MEDS: (Novolog) Insulin Aspart, Recombinant 100 u/ml 10 ml vial SC SCH ×4 (08:17→21:25)
[2016-10-20] MEDS: Insulin Detemir 100 units/ml Vial (Levemir) SC SCH ×2 (08:18→21:23)
[2016-10-20 08:22] LABS: EOSINOPHIL 1 % (0-4); NEUTROPHIL 82 % (50-75); TOTAL CELLS COUNTED 100
--- NOTE | 2016-10-20 09:18 | RAD ---
HISTORY: Shortness of breath COMPARISON: 10/19/2016 FINDINGS: LUNGS: Persistent diffuse prominent increased interstitial lung markings bilaterally suggestive for edema and or infiltrate. Not significantly changed. PLEURA: As above. CARDIOVASCULAR: Cardiomegaly. OSSEOUS STRUCTURES: No significant abnormalities. VISUALIZED UPPER ABDOMEN: Normal. OTHER FINDINGS: None. IMPRESSION: No significant interval change.
--- NOTE | 2016-10-20 09:23 | CP.CCUPN ---
<Yudelka Merritt - Last Filed: 10/20/16 12:30> CCU Subjective - Physician Review Subjective (Free Text): Patient was seen and examined at bedside in this morning. Patient was sitting up comfortably and in no acute distress. Patient reports feeling better. He reports he has an occasional non-productive cough. Patient denies chest pain, abdominal pain, fevers, headaches, nausea, vomiting, diarrhea, constipation, and leg swelling or pain. 10/20/16 09:20 CCU Objective - Vital Signs / Intake & Output Vital Signs (Last 4 hours): Vital Signs Temp Pulse Resp BP Pulse Ox 10/20/16 08:06 82 23 132/84 98 10/20/16 08:00 97.4 F L 84 12 132/84 98 10/20/16 07:52 83 10/20/16 07:00 87 23 98 10/20/16 06:06 75 21 131/76 93 L 10/20/16 06:00 84 13 130/88 96 10/20/16 05:57 74 Intake and Output (Last 8hrs): Intake & Output 10/19/16 10/20/16 10/20/16 22:59 06:59 14:59 Intake Total 400 200 50 Output Total 1725 1400 Balance -1325 -1200 50 Weight 290 lb 12.8 oz Intake: Oral 400 200 50 Output: Urine 1725 1400 Urine, Voided 1725 1400 - Physical Exam Head: Positive for: Atraumatic, Normocephalic Extroacular Muscles: Positive for: EOMI Conjunctiva: Positive for: Normal Mouth: Positive for: Moist Mucous Membranes Respiratory/Chest: Positive for: Decreased Breath Sounds, Rales (B/L; improved since yesterday), Rhonchi. Negative for: Clear to Auscultation Cardiovascular: Positive for: Regular Rate and Rhythm, Normal S1, S2 Abdomen: Positive for: Normal Bowel Sounds. Negative for: Tenderness Upper Extremity: Positive for: Normal Inspection Lower Extremity: Positive for: Edema. Negative for: CALF TENDERNESS, Tenderness Skin: Positive for: Warm, Dry, Normal Color Psychiatric: Positive for: Alert, Oriented x 3 - Medications Active Medications: Active Medications Generic Name Dose Route Start Last Admin Trade Name Freq PRN Reason Stop Dose Admin Albuterol/Ipratropium 3 ml 10/19/16 14:06 10/20/16 07:41 Duoneb 3 Mg/0.5 Mg (3 Ml) Ud INH 3 ml RQ6 ANABELLA Administration Apixaban 5 mg 10/14/16 18:00 10/19/16 18:52 Eliquis PO 5 mg BID ANABELLA Administration Aspirin 81 mg 10/15/16 10:00 10/19/16 09:59 Aspirin Chewable PO 81 mg DAILY ANABELLA Administration Famotidine 20 mg 10/19/16 10:00 10/19/16 10:07 Pepcid PO 20 mg DAILY ANABELLA Administration Furosemide 40 mg 10/18/16 18:00 10/19/16 18:53 Lasix IVP 40 mg BID ANABELLA Administration Ceftriaxone Sodium 1 gm/ 100 mls @ 200 mls/hr 10/14/16 13:00 10/19/16 10:07 Sodium Chloride IVPB 200 mls/hr DAILY ANABELLA Administration Azithromycin 500 mg/ Sodium 250 mls @ 250 mls/hr 10/19/16 10:00 10/19/16 12: 33 Chloride IVPB 250 mls/hr DAILY ANABELLA Administration Vancomycin HCl 500 mg/ Sodium 100 mls @ 100 mls/hr 10/19/16 12:30 10/19/16 16 :10 Chloride IVPB 100 mls/hr DAILY ANABELLA Administration Insulin Aspart 0 unit 10/15/16 11:30 10/20/16 08:17 Novolog SC 6 unit ACHS ANABELLA Administration Protocol Insulin Detemir 30 unit 10/19/16 20:36 10/20/16 08:18 Levemir SC 30 unit Q12H ANABELLA Administration Methylprednisolone 40 mg 10/19/16 10:00 10/19/16 10:06 Solu-Medrol IVP 40 mg DAILY ANABELLA Administration Montelukast Sodium 10 mg 10/14/16 22:00 10/19/16 21:11 Singulair PO 10 mg HS ANABELLA Administration Ofloxacin 0.5 ml 10/14/16 18:00 10/19/16 18:52 Floxin 0.3% Otic Soln AU 2 drop BID ANABELLA Administration Rosuvastatin Calcium 20 mg 10/14/16 22:00 10/19/16 21:11 Crestor PO 20 mg HS ANABELLA Administration Fluticasone/Salmeterol 1 puff 10/14/16 22:00 10/20/16 07:41 Advair Diskus 250/50 IH 1 puff RQ12 ANABELLA Administration - Patient Studies Lab Studies: Microbiology Studies 10/18/16 12:30 MRSA Culture (Admit) - Final Nose MRSA NOT DETECTED Lab Studies 10/20/16 10/20/16 10/20/16 Range/Units 07:29 06:32 06:32 WBC 26.2 H (4.8-10.8) K/uL RBC 4.45 (4.40-5.90) Mil/uL Hgb 12.8 (12.0-18.0) g/dL Hct 39.4 (35.0-51.0) % MCV 88.5 (80.0-94.0) fL MCH 28.9 (27.0-31.0) pg MCHC 32.6 L (33.0-37.0) g/dL RDW 14.5 (11.5-14.5) % Plt Count 231 (130-400) K/uL MPV 11.0 (7.2-11.7) fL Neut % (Auto) 84.6 H (50.0-75.0) % Lymph % (Auto) 6.6 L (20.0-40.0) % [place] % (Auto) 8.2 (0.0-10.0) % Eos % (Auto) 0.4 (0.0-4.0) % Baso % (Auto) 0.2 (0.0-2.0) % Neut # 22.2 H (1.8-7.0) K/uL Lymph # 1.7 (1.0-4.3) K/uL Deuel # 2.1 H (0.0-0.8) K/uL Eos # 0.1 (0.0-0.7) K/uL Baso # 0.1 (0.0-0.2) K/uL Neutrophils % (Manual) 82 H (50-75) % Lymphocytes % (Manual) 8 L (20-40) % Monocytes % (Manual) 9 (0-10) % Eosinophils % (Manual) 1 (0-4) % Platelet Estimate Normal (NORMAL) RBC Morphology Normal Puncture Site pCO2 (35-45) mm/Hg pO2 (80-100) mm/Hg HCO3 (21-28) mmol/L ABG pH (7.35-7.45) ABG Total CO2 (22-28) mmol/L ABG O2 Saturation (95-98) % ABG Base Excess (-2.0-3.0) mmol/L ABG Hemoglobin (11.7-17.4) g/dL ABG Carboxyhemoglobin (0.5-1.5) % POC ABG HHb (Measured) (0.0-5.0) % ABG Methemoglobin (0.0-3.0) % Philippe Test A-a O2 Difference mm/Hg Respiratory Index Hgb O2 Saturation (95.0-98.0) % Vent Mode FiO2 % Inspiratory BiPAP Expiratory BiPAP Sodium 136 (132-148) mmol/L Potassium 5.5 H (3.6-5.2) mmol/L Chloride 95 L (98-107) mmol/L Carbon Dioxide 33 H (22-30) mmol/L Anion Gap 14 (10-20) BUN 62 H (9-20) mg/dL Creatinine 1.2 (0.8-1.5) MG/DL Est GFR ( Amer) > 60 Est GFR (Non-Af Amer) > 60 POC Glucose (mg/dL) 258 H (65-110) mg/dL Random Glucose 277 H (75-110) mg/dL Calcium 8.6 (8.6-10.4) mg/dl Phosphorus 4.0 (2.5-4.5) mg/dL Magnesium 2.4 H (1.6-2.3) mg/dL Total Bilirubin 0.7 (0.2-1.3) mg/dL AST 24 (17-59) U/L ALT 35 (21-72) U/L Alkaline Phosphatase 128 H (38-126) U/L Total Protein 6.5 (6.3-8.3) g/dL Albumin 3.2 L (3.5-5.0) g/dL Globulin 3.3 (2.2-3.9) gm/dL Albumin/Globulin Ratio 1.0 (1.0-2.1) Procalcitonin (0.19-0.49) NG/ML Urine Color (YELLOW) Urine Clarity (Clear) Urine pH (5.0-8.0) Ur Specific [place] (1.003-1.030) Urine Protein (NEGATIVE) mg/dL Urine Glucose (UA) (Normal) mg/dL Urine Ketones (NEGATIVE) mg/dL Urine Blood (NEGATIVE) Urine Nitrate (NEGATIVE) Urine Bilirubin (NEGATIVE) Urine Urobilinogen (0.2-1.0) mg/dL Ur Leukocyte Esterase (Negative) Mert/uL Urine WBC (Auto) (0-5) /hpf Urine RBC (Auto) (0-3) /hpf Ur Squamous Epith Cells (0-5) /hpf Urine Bacteria (<OCC) 10/20/16 10/19/16 10/19/16 Range/Units 05:29 21:13 21:00 WBC (4.8-10.8) K/uL RBC (4.40-5.90) Mil/uL Hgb (12.0-18.0) g/dL Hct (35.0-51.0) % MCV (80.0-94.0) fL MCH (27.0-31.0) pg MCHC (33.0-37.0) g/dL RDW (11.5-14.5) % Plt Count (130-400) K/uL MPV (7.2-11.7) fL Neut % (Auto) (50.0-75.0) % Lymph % (Auto) (20.0-40.0) % [place] % (Auto) (0.0-10.0) % Eos % (Auto) (0.0-4.0) % Baso % (Auto) (0.0-2.0) % Neut # (1.8-7.0) K/uL Lymph # (1.0-4.3) K/uL De[place] # (0.0-0.8) K/uL Eos # (0.0-0.7) K/uL Baso # (0.0-0.2) K/uL Neutrophils % (Manual) (50-75) % Lymphocytes % (Manual) (20-40) % Monocytes % (Manual) (0-10) % Eosinophils % (Manual) (0-4) % Platelet Estimate (NORMAL) RBC Morphology Puncture Site Rr pCO2 62 H (35-45) mm/Hg pO2 58 L (80-100) mm/Hg HCO3 28.6 H (21-28) mmol/L ABG pH 7.33 L (7.35-7.45) ABG Total CO2 34.6 H (22-28) mmol/L ABG O2 Saturation 94.0 L (95-98) % ABG Base Excess 4.9 H (-2.0-3.0) mmol/L ABG Hemoglobin 13.4 (11.7-17.4) g/dL ABG Carboxyhemoglobin 2.3 H (0.5-1.5) % POC ABG HHb (Measured) 5.8 H (0.0-5.0) % ABG Methemoglobin 1.1 (0.0-3.0) % Philippe Test Pos A-a O2 Difference 435.0 mm/Hg Respiratory Index 7.5 Hgb O2 Saturation 90.8 L (95.0-98.0) % Vent Mode Bipap FiO2 80.0 % Inspiratory BiPAP 18 Expiratory BiPAP 8 Sodium (132-148) mmol/L Potassium (3.6-5.2) mmol/L Chloride (98-107) mmol/L Carbon Dioxide (22-30) mmol/L Anion Gap (10-20) BUN (9-20) mg/dL Creatinine (0.8-1.5) MG/DL Est GFR ( Amer) Est GFR (Non-Af Amer) POC Glucose (mg/dL) 314 H (65-110) mg/dL Random Glucose (75-110) mg/dL Calcium (8.6-10.4) mg/dl Phosphorus (2.5-4.5) mg/dL Magnesium (1.6-2.3) mg/dL Total Bilirubin (0.2-1.3) mg/dL AST (17-59) U/L ALT (21-72) U/L Alkaline Phosphatase (38-126) U/L Total Protein (6.3-8.3) g/dL Albumin (3.5-5.0) g/dL Globulin (2.2-3.9) gm/dL Albumin/Globulin Ratio (1.0-2.1) Procalcitonin (0.19-0.49) NG/ML Urine Color Straw (YELLOW) Urine Clarity Clear (Clear) Urine pH 5.0 (5.0-8.0) Ur Specific [place] 1.006 (1.003-1.030) Urine Protein 2+ H (NEGATIVE) mg/dL Urine Glucose (UA) 3+ H (Normal) mg/dL Urine Ketones Negative (NEGATIVE) mg/dL Urine Blood Negative (NEGATIVE) Urine Nitrate Negative (NEGATIVE) Urine Bilirubin Negative (NEGATIVE) Urine Urobilinogen Normal (0.2-1.0) mg/dL Ur Leukocyte Esterase Neg (Negative) Mert/uL Urine WBC (Auto) < 1 (0-5) /hpf Urine RBC (Auto) 1 (0-3) /hpf Ur Squamous Epith Cells < 1 (0-5) /hpf Urine Bacteria Rare (<OCC) 10/19/16 10/19/16 10/19/16 Range/Units 16:07 13:20 11:33 WBC (4.8-10.8) K/uL RBC (4.40-5.90) Mil/uL Hgb (12.0-18.0) g/dL Hct (35.0-51.0) % MCV (80.0-94.0) fL MCH (27.0-31.0) pg MCHC (33.0-37.0) g/dL RDW (11.5-14.5) % Plt Count (130-400) K/uL MPV (7.2-11.7) fL Neut % (Auto) (50.0-75.0) % Lymph % (Auto) (20.0-40.0) % [place] % (Auto) (0.0-10.0) % Eos % (Auto) (0.0-4.0) % Baso % (Auto) (0.0-2.0) % Neut # (1.8-7.0) K/uL Lymph # (1.0-4.3) K/uL De[place] # (0.0-0.8) K/uL Eos # (0.0-0.7) K/uL Baso # (0.0-0.2) K/uL Neutrophils % (Manual) (50-75) % Lymphocytes % (Manual) (20-40) % Monocytes % (Manual) (0-10) % Eosinophils % (Manual) (0-4) % Platelet Estimate (NORMAL) RBC Morphology Puncture Site Rr pCO2 53 H (35-45) mm/Hg pO2 54 L (80-100) mm/Hg HCO3 26.1 (21-28) mmol/L ABG pH 7.34 L (7.35-7.45) ABG Total CO2 30.2 H (22-28) mmol/L ABG O2 Saturation 92.8 L (95-98) % ABG Base Excess 1.8 (-2.0-3.0) mmol/L ABG Hemoglobin 13.3 (11.7-17.4) g/dL ABG Carboxyhemoglobin 2.2 H (0.5-1.5) % POC ABG HHb (Measured) 6.9 H (0.0-5.0) % ABG Methemoglobin 1.4 (0.0-3.0) % Philippe Test Pos A-a O2 Difference 593.0 mm/Hg Respiratory Index 11.0 Hgb O2 Saturation 89.5 L (95.0-98.0) % Vent Mode FiO2 100.0 % Inspiratory BiPAP Expiratory BiPAP Sodium (132-148) mmol/L Potassium (3.6-5.2) mmol/L Chloride (98-107) mmol/L Carbon Dioxide (22-30) mmol/L Anion Gap (10-20) BUN (9-20) mg/dL Creatinine (0.8-1.5) MG/DL Est GFR ( Amer) Est GFR (Non-Af Amer) POC Glucose (mg/dL) 307 H 358 H (65-110) mg/dL Random Glucose (75-110) mg/dL Calcium (8.6-10.4) mg/dl Phosphorus (2.5-4.5) mg/dL Magnesium (1.6-2.3) mg/dL Total Bilirubin (0.2-1.3) mg/dL AST (17-59) U/L ALT (21-72) U/L Alkaline Phosphatase (38-126) U/L Total Protein (6.3-8.3) g/dL Albumin (3.5-5.0) g/dL Globulin (2.2-3.9) gm/dL Albumin/Globulin Ratio (1.0-2.1) Procalcitonin (0.19-0.49) NG/ML Urine Color (YELLOW) Urine Clarity (Clear) Urine pH (5.0-8.0) Ur Specific [place] (1.003-1.030) Urine Protein (NEGATIVE) mg/dL Urine Glucose (UA) (Normal) mg/dL Urine Ketones (NEGATIVE) mg/dL Urine Blood (NEGATIVE) Urine Nitrate (NEGATIVE) Urine Bilirubin (NEGATIVE) Urine Urobilinogen (0.2-1.0) mg/dL Ur Leukocyte Esterase (Negative) Mert/uL Urine WBC (Auto) (0-5) /hpf Urine RBC (Auto) (0-3) /hpf Ur Squamous Epith Cells (0-5) /hpf Urine Bacteria (<OCC) 10/19/16 Range/Units 11:23 WBC (4.8-10.8) K/uL RBC (4.40-5.90) Mil/uL Hgb (12.0-18.0) g/dL Hct (35.0-51.0) % MCV (80.0-94.0) fL MCH (27.0-31.0) pg MCHC (33.0-37.0) g/dL RDW (11.5-14.5) % Plt Count (130-400) K/uL MPV (7.2-11.7) fL Neut % (Auto) (50.0-75.0) % Lymph % (Auto) (20.0-40.0) % [place] % (Auto) (0.0-10.0) % Eos % (Auto) (0.0-4.0) % Baso % (Auto) (0.0-2.0) % Neut # (1.8-7.0) K/uL Lymph # (1.0-4.3) K/uL De[place] # (0.0-0.8) K/uL Eos # (0.0-0.7) K/uL Baso # (0.0-0.2) K/uL Neutrophils % (Manual) (50-75) % Lymphocytes % (Manual) (20-40) % Monocytes % (Manual) (0-10) % Eosinophils % (Manual) (0-4) % Platelet Estimate (NORMAL) RBC Morphology Puncture Site pCO2 (35-45) mm/Hg pO2 (80-100) mm/Hg HCO3 (21-28) mmol/L ABG pH (7.35-7.45) ABG Total CO2 (22-28) mmol/L ABG O2 Saturation (95-98) % ABG Base Excess (-2.0-3.0) mmol/L ABG Hemoglobin (11.7-17.4) g/dL ABG Carboxyhemoglobin (0.5-1.5) % POC ABG HHb (Measured) (0.0-5.0) % ABG Methemoglobin (0.0-3.0) % Philippe Test A-a O2 Difference mm/Hg Respiratory Index Hgb O2 Saturation (95.0-98.0) % Vent Mode FiO2 % Inspiratory BiPAP Expiratory BiPAP Sodium (132-148) mmol/L Potassium (3.6-5.2) mmol/L Chloride (98-107) mmol/L Carbon Dioxide (22-30) mmol/L Anion Gap (10-20) BUN (9-20) mg/dL Creatinine (0.8-1.5) MG/DL Est GFR ( Amer) Est GFR (Non-Af Amer) POC Glucose (mg/dL) (65-110) mg/dL Random Glucose (75-110) mg/dL Calcium (8.6-10.4) mg/dl Phosphorus (2.5-4.5) mg/dL Magnesium (1.6-2.3) mg/dL Total Bilirubin (0.2-1.3) mg/dL AST (17-59) U/L ALT (21-72) U/L Alkaline Phosphatase (38-126) U/L Total Protein (6.3-8.3) g/dL Albumin (3.5-5.0) g/dL Globulin (2.2-3.9) gm/dL Albumin/Globulin Ratio (1.0-2.1) Procalcitonin 0.86 H (0.19-0.49) NG/ML Urine Color (YELLOW) Urine Clarity (Clear) Urine pH (5.0-8.0) Ur Specific [place] (1.003-1.030) Urine Protein (NEGATIVE) mg/dL Urine Glucose (UA) (Normal) mg/dL Urine Ketones (NEGATIVE) mg/dL Urine Blood (NEGATIVE) Urine Nitrate (NEGATIVE) Urine Bilirubin (NEGATIVE) Urine Urobilinogen (0.2-1.0) mg/dL Ur Leukocyte Esterase (Negative) Mert/uL Urine WBC (Auto) (0-5) /hpf Urine RBC (Auto) (0-3) /hpf Ur Squamous Epith Cells (0-5) /hpf Urine Bacteria (<OCC) Laboratory Results - last 24 hr 10/19/16 10/19/16 10/19/16 11:23 11:33 13:20 WBC RBC Hgb Hct MCV MCH MCHC RDW Plt Count MPV Neut % (Auto) Lymph % (Auto) De[place] % (Auto) Eos % (Auto) Baso % (Auto) Neut # Lymph # De[place] # Eos # Baso # Neutrophils % (Manual) Lymphocytes % (Manual) Monocytes % (Manual) Eosinophils % (Manual) Platelet Estimate RBC Morphology Puncture Site Rr pCO2 53 H pO2 54 L HCO3 26.1 ABG pH 7.34 L ABG Total CO2 30.2 H ABG O2 Saturation 92.8 L ABG Base Excess 1.8 ABG Hemoglobin 13.3 ABG Carboxyhemoglobin 2.2 H POC ABG HHb (Measured) 6.9 H ABG Methemoglobin 1.4 Philippe Test Pos A-a O2 Difference 593.0 Respiratory Index 11.0 Hgb O2 Saturation 89.5 L Vent Mode FiO2 100.0 Inspiratory BiPAP Expiratory BiPAP Sodium Potassium Chloride Carbon Dioxide Anion Gap BUN Creatinine Est GFR ( Amer) Est GFR (Non-Af Amer) POC Glucose (mg/dL) 358 H Random Glucose Calcium Phosphorus Magnesium Total Bilirubin AST ALT Alkaline Phosphatase Total Protein Albumin Globulin Albumin/Globulin Ratio Procalcitonin 0.86 H Urine Color Urine Clarity Urine pH Ur Specific [place] Urine Protein Urine Glucose (UA) Urine Ketones Urine Blood Urine Nitrate Urine Bilirubin Urine Urobilinogen Ur Leukocyte Esterase Urine WBC (Auto) Urine RBC (Auto) Ur Squamous Epith Cells Urine Bacteria 10/19/16 10/19/16 10/19/16 16:07 21:00 21:13 WBC RBC Hgb Hct MCV MCH MCHC RDW Plt Count MPV Neut % (Auto) Lymph % (Auto) [place] % (Auto) Eos % (Auto) Baso % (Auto) Neut # Lymph # [place] # Eos # Baso # Neutrophils % (Manual) Lymphocytes % (Manual) Monocytes % (Manual) Eosinophils % (Manual) Platelet Estimate RBC Morphology Puncture Site pCO2 pO2 HCO3 ABG pH ABG Total CO2 ABG O2 Saturation ABG Base Excess ABG Hemoglobin ABG Carboxyhemoglobin POC ABG HHb (Measured) ABG Methemoglobin Philippe Test A-a O2 Difference Respiratory Index Hgb O2 Saturation Vent Mode FiO2 Inspiratory BiPAP Expiratory BiPAP Sodium Potassium Chloride Carbon Dioxide Anion Gap BUN Creatinine Est GFR ( Amer) Est GFR (Non-Af Amer) POC Glucose (mg/dL) 307 H 314 H Random Glucose Calcium Phosphorus Magnesium Total Bilirubin AST ALT Alkaline Phosphatase Total Protein Albumin Globulin Albumin/Globulin Ratio Procalcitonin Urine Color Straw Urine Clarity Clear Urine pH 5.0 Ur Specific [place] 1.006 Urine Protein 2+ H Urine Glucose (UA) 3+ H Urine Ketones Negative Urine Blood Negative Urine Nitrate Negative Urine Bilirubin Negative Urine Urobilinogen Normal Ur Leukocyte Esterase Neg Urine WBC (Auto) < 1 Urine RBC (Auto) 1 Ur Squamous Epith Cells < 1 Urine Bacteria Rare 10/20/16 10/20/16 10/20/16 05:29 06:32 06:32 WBC 26.2 H RBC 4.45 Hgb 12.8 Hct 39.4 MCV 88.5 MCH 28.9 MCHC 32.6 L RDW 14.5 Plt Count 231 MPV 11.0 Neut % (Auto) 84.6 H Lymph % (Auto) 6.6 L [place] % (Auto) 8.2 Eos % (Auto) 0.4 Baso % (Auto) 0.2 Neut # 22.2 H Lymph # 1.7 Deuel # 2.1 H Eos # 0.1 Baso # 0.1 Neutrophils % (Manual) 82 H Lymphocytes % (Manual) 8 L Monocytes % (Manual) 9 Eosinophils % (Manual) 1 Platelet Estimate Normal RBC Morphology Normal Puncture Site Rr pCO2 62 H pO2 58 L HCO3 28.6 H ABG pH 7.33 L ABG Total CO2 34.6 H ABG O2 Saturation 94.0 L ABG Base Excess 4.9 H ABG Hemoglobin 13.4 ABG Carboxyhemoglobin 2.3 H POC ABG HHb (Measured) 5.8 H ABG Methemoglobin 1.1 Philippe Test Pos A-a O2 Difference 435.0 Respiratory Index 7.5 Hgb O2 Saturation 90.8 L Vent Mode Bipap FiO2 80.0 Inspiratory BiPAP 18 Expiratory BiPAP 8 Sodium 136 Potassium 5.5 H Chloride 95 L Carbon Dioxide 33 H Anion Gap 14 BUN 62 H Creatinine 1.2 Est GFR ( Amer) > 60 Est GFR (Non-Af Amer) > 60 POC Glucose (mg/dL) Random Glucose 277 H Calcium 8.6 Phosphorus 4.0 Magnesium 2.4 H Total Bilirubin 0.7 AST 24 ALT 35 Alkaline Phosphatase 128 H Total Protein 6.5 Albumin 3.2 L Globulin 3.3 Albumin/Globulin Ratio 1.0 Procalcitonin Urine Color Urine Clarity Urine pH Ur Specific [place] Urine Protein Urine Glucose (UA) Urine Ketones Urine Blood Urine Nitrate Urine Bilirubin Urine Urobilinogen Ur Leukocyte Esterase Urine WBC (Auto) Urine RBC (Auto) Ur Squamous Epith Cells Urine Bacteria 10/20/16 07:29 WBC RBC Hgb Hct MCV MCH MCHC RDW Plt Count MPV Neut % (Auto) Lymph % (Auto) [place] % (Auto) Eos % (Auto) Baso % (Auto) Neut # Lymph # [place] # Eos # Baso # Neutrophils % (Manual) Lymphocytes % (Manual) Monocytes % (Manual) Eosinophils % (Manual) Platelet Estimate RBC Morphology Puncture Site pCO2 pO2 HCO3 ABG pH ABG Total CO2 ABG O2 Saturation ABG Base Excess ABG Hemoglobin ABG Carboxyhemoglobin POC ABG HHb (Measured) ABG Methemoglobin Philippe Test A-a O2 Difference Respiratory Index Hgb O2 Saturation Vent Mode FiO2 Inspiratory BiPAP Expiratory BiPAP Sodium Potassium Chloride Carbon Dioxide Anion Gap BUN Creatinine Est GFR ( Amer) Est GFR (Non-Af Amer) POC Glucose (mg/dL) 258 H Random Glucose Calcium Phosphorus Magnesium Total Bilirubin AST ALT Alkaline Phosphatase Total Protein Albumin Globulin Albumin/Globulin Ratio Procalcitonin Urine Color Urine Clarity Urine pH Ur Specific [place] Urine Protein Urine Glucose (UA) Urine Ketones Urine Blood Urine Nitrate Urine Bilirubin Urine Urobilinogen Ur Leukocyte Esterase Urine WBC (Auto) Urine RBC (Auto) Ur Squamous Epith Cells Urine Bacteria Fingerstick Blood Sugar Results: 258 Review of Systems - Constitutional Constitutional: absent: Fever - Cardiovascular Cardiovascular: absent: Chest Pain, Dyspnea, Leg Edema - Respiratory Respiratory: Cough. absent: Dyspnea, Excessive Mucous Production, Pain with Coughing - Gastrointestinal Gastrointestinal: absent: Abdominal Pain, Constipation, Diarrhea, Nausea, Vomiting - Genitourinary Genitourinary: absent: Dysuria - Neurological Neurological: absent: Headaches Critical Care Progress Note - Nutrition Nutrition: Nutrition Category Date Time Status Renal Diet [DIET] Diets 10/15/16 Breakfast Active Assessment/Plan - Assessment and Plan (Free Text) Assessment: Patient status: Transferred to ICU for respiratory insufficiency/pulmonary edema Neuro: AAOX3 CV: - Hx of CHF - ECHO: normal bi-ventricular function, no gross valvular abnormality, no pericardial effusion. LVEF 74.3% - Continue Lasix 40mg - ASA 81mg daily - Crestor 20mg PO HS - ECG(10/14/16): Normal sinus rhythm at 93 bpm; RBBB - Hx of DVT: IVF filter placed; Apixaban 5mg PO BID - Fluid restriction (1,000ml) Pulmonary: - ARDs, continue same medications/treatment - Patient given 40mg Lasix; continue Lasix tx - ABG (10/18/16): respiratory acidosis (pH 7.30; pCO2: 59) - ABG 10/20: pH 7.33; pCO2: 62 - BiPAP on 04/11 at 80; high-flow nasal canula prn - Hx of asthma - Continue Solu-medrol 40mg IVP Daily - Continue Montelukast 10mg PO HS - Continue Duoneb 3ml INH RQ6 prn SOB - Advair 250/50 1 puff IH RQ12 Imaging: - CXR (10/19): improving bilateral diffuse alveolar opacity; congestive change. - CXR (10/18): Worsening dense diffuse increased airspace opacities throughout both lungs suggestive for worsening edema and or infiltrate now severe; Cardiomegaly. - CT chest (10/14): 1. Chronic interstitial pulmonary disease is appreciated with somewhat reticular nodular component increase of the bladder apices slightly. No definitive alveolitis pleural or pericardial effusion. Lack axis appears slightly increased in the bilateral bases. 2. Mediastinal lymphadenopathy appreciated without significant interval change. Bilateral hilar adenopathy remains likely but is poorly evaluated due to lack of intravenous contrast. 3. Incidental cholelithiasis. - CXR (10/14): Cardiomegaly, increased interstitial markings likely interstitial / cardiogenic edema. - CXR (10/20): no significant interval change - CXR: f/u in AM GI: - No acute issues Hematology: - No acute issues Endocrine: - Hx of DM - Continue Novolog SC - Continue Levemir 30 units SC Q12 - Monitor daily glucose Renal: - Worsening renal insufficiency - Continue to trend renal functions - Hyperkalemia --> resolved; continue to monitor daily - Nephrology consult- Dr. Rhoades Musculoskeletal: - No acute issues Genitourinary: - No acute issues - UA x2: negative Infectious disease: - Leukocytosis likely 2/2 to pneumonia - Continue Ceftriaxone 1gm daily - Continue Ofloxacin 0.5 ml AU BID - Azithryomycin 500mg IV daily started 10/19 - Procalcitonin: 0.86 Imaging: - CT facial bones (10/14): 1. Findings are most compatible with acute right mastoiditis and otitis media. No evidence of coalescent mastoiditis. 2. Normal CT scan of the left temporal bone without contrast. Prophylaxis: - DVT prophylaxis: Apixaban 5mg PO BID Patient has IVC filter placed by Dr. Ortega in May 2016 - GI: Pepcid 20mg PO daily - ASA 81mg PO daily <Santino Luu - Last Filed: 10/20/16 15:33> CCU Objective - Vital Signs / Intake & Output Vital Signs (Last 4 hours): Vital Signs Temp Pulse Resp BP Pulse Ox 10/20/16 15:00 103 H 20 85 L 10/20/16 14:06 94 H 15 147/81 94 L 10/20/16 14:00 98 H 14 93 L 10/20/16 13:37 22 10/20/16 13:08 95 H 19 153/82 H 95 10/20/16 13:00 95 H 20 90 L 10/20/16 12:30 100 H 17 127/62 95 10/20/16 12:00 98.4 F 87 21 127/62 93 L 10/20/16 11:45 17 Intake and Output (Last 8hrs): Intake & Output 10/20/16 10/20/16 10/20/16 06:59 14:59 22:59 Intake Total 200 860 100 Output Total 1400 1450 300 Balance -1200 -590 -200 Intake: Intake, IV Amount 250 100 Left Hand 250 100 Oral 200 610 Output: Urine 1400 1450 300 Urine, Voided 1400 1450 300 Other: # Voids Urine, Voided 2 1 # Bowel Movements 1 - Medications Active Medications: Active Medications Generic Name Dose Route Start Last Admin Trade Name Freq PRN Reason Stop Dose Admin Albuterol/Ipratropium 3 ml 10/19/16 14:06 10/20/16 13:37 Duoneb 3 Mg/0.5 Mg (3 Ml) Ud INH 3 ml RQ6 ANABELLA Administration Apixaban 5 mg 10/14/16 18:00 10/20/16 10:48 Eliquis PO 5 mg BID ANABELLA Administration Aspirin 81 mg 10/15/16 10:00 08/03/17 10:48 Aspirin Chewable PO 81 mg DAILY ANABELLA Administration Famotidine 20 mg 10/19/16 10:00 10/20/16 10:48 Pepcid PO 20 mg DAILY ANABELLA Administration Furosemide 40 mg 10/18/16 18:00 10/20/16 10:48 Lasix IVP 40 mg BID ANABELLA Administration Ceftriaxone Sodium 1 gm/ 100 mls @ 200 mls/hr 10/14/16 13:00 10/20/16 10:50 Sodium Chloride IVPB 200 mls/hr DAILY ANABELLA Administration Vancomycin HCl 500 mg/ Sodium 100 mls @ 100 mls/hr 10/20/16 16:00 10/20/16 15 :18 Chloride IVPB 100 mls/hr Q24H ANABELLA Administration Azithromycin 500 mg/ Sodium 250 mls @ 250 mls/hr 10/20/16 12:00 10/20/16 11: 53 Chloride IVPB 250 mls/hr Q24H ANABELLA Administration Insulin Aspart 0 unit 10/15/16 11:30 10/20/16 11:36 Novolog SC 6 unit ACHS ANABELLA Administration Protocol Insulin Detemir 30 unit 10/19/16 20:36 10/20/16 08:18 Levemir SC 30 unit Q12H ANABELLA Administration Methylprednisolone 40 mg 10/19/16 10:00 10/20/16 10:47 Solu-Medrol IVP 40 mg DAILY ANABELLA Administration Montelukast Sodium 10 mg 10/14/16 22:00 10/19/16 21:11 Singulair PO 10 mg HS ANABELLA Administration Ofloxacin 0.5 ml 10/14/16 18:00 10/20/16 10:49 Floxin 0.3% Otic Soln AU 1 drop BID ANABELLA Administration Rosuvastatin Calcium 20 mg 10/14/16 22:00 10/19/16 21:11 Crestor PO 20 mg HS ANABELLA Administration Fluticasone/Salmeterol 1 puff 10/14/16 22:00 10/20/16 07:41 Advair Diskus 250/50 IH 1 puff RQ12 ANABELLA Administration - Patient Studies Lab Studies: Microbiology Studies 10/18/16 12:30 MRSA Culture (Admit) - Final Nose MRSA NOT DETECTED Lab Studies 10/20/16 10/20/16 10/20/16 Range/Units 07:29 06:32 06:32 WBC 26.2 H (4.8-10.8) K/uL RBC 4.45 (4.40-5.90) Mil/uL Hgb 12.8 (12.0-18.0) g/dL Hct 39.4 (35.0-51.0) % MCV 88.5 (80.0-94.0) fL MCH 28.9 (27.0-31.0) pg MCHC 32.6 L (33.0-37.0) g/dL RDW 14.5 (11.5-14.5) % Plt Count 231 (130-400) K/uL MPV 11.0 (7.2-11.7) fL Neut % (Auto) 84.6 H (50.0-75.0) % Lymph % (Auto) 6.6 L (20.0-40.0) % [place] % (Auto) 8.2 (0.0-10.0) % Eos % (Auto) 0.4 (0.0-4.0) % Baso % (Auto) 0.2 (0.0-2.0) % Neut # 22.2 H (1.8-7.0) K/uL Lymph # 1.7 (1.0-4.3) K/uL Deuel # 2.1 H (0.0-0.8) K/uL Eos # 0.1 (0.0-0.7) K/uL Baso # 0.1 (0.0-0.2) K/uL Neutrophils % (Manual) 82 H (50-75) % Lymphocytes % (Manual) 8 L (20-40) % Monocytes % (Manual) 9 (0-10) % Eosinophils % (Manual) 1 (0-4) % Platelet Estimate Normal (NORMAL) RBC Morphology Normal Puncture Site pCO2 (35-45) mm/Hg pO2 (80-100) mm/Hg HCO3 (21-28) mmol/L ABG pH (7.35-7.45) ABG Total CO2 (22-28) mmol/L ABG O2 Saturation (95-98) % ABG Base Excess (-2.0-3.0) mmol/L ABG Hemoglobin (11.7-17.4) g/dL ABG Carboxyhemoglobin (0.5-1.5) % POC ABG HHb (Measured) (0.0-5.0) % ABG Methemoglobin (0.0-3.0) % [place] Test A-a O2 Difference mm/Hg Respiratory Index Hgb O2 Saturation (95.0-98.0) % Vent Mode FiO2 % Inspiratory BiPAP Expiratory BiPAP Sodium 136 (132-148) mmol/L Potassium 5.5 H (3.6-5.2) mmol/L Chloride 95 L (98-107) mmol/L Carbon Dioxide 33 H (22-30) mmol/L Anion Gap 14 (10-20) BUN 62 H (9-20) mg/dL Creatinine 1.2 (0.8-1.5) MG/DL Est GFR ( Amer) > 60 Est GFR (Non-Af Amer) > 60 POC Glucose (mg/dL) 258 H (65-110) mg/dL Random Glucose 277 H (75-110) mg/dL Calcium 8.6 (8.6-10.4) mg/dl Phosphorus 4.0 (2.5-4.5) mg/dL Magnesium 2.4 H (1.6-2.3) mg/dL Total Bilirubin 0.7 (0.2-1.3) mg/dL AST 24 (17-59) U/L ALT 35 (21-72) U/L Alkaline Phosphatase 128 H (38-126) U/L Total Protein 6.5 (6.3-8.3) g/dL Albumin 3.2 L (3.5-5.0) g/dL Globulin 3.3 (2.2-3.9) gm/dL Albumin/Globulin Ratio 1.0 (1.0-2.1) Urine Color (YELLOW) Urine Clarity (Clear) Urine pH (5.0-8.0) Ur Specific [place] (1.003-1.030) Urine Protein (NEGATIVE) mg/dL Urine Glucose (UA) (Normal) mg/dL Urine Ketones (NEGATIVE) mg/dL Urine Blood (NEGATIVE) Urine Nitrate (NEGATIVE) Urine Bilirubin (NEGATIVE) Urine Urobilinogen (0.2-1.0) mg/dL Ur Leukocyte Esterase (Negative) Mert/uL Urine WBC (Auto) (0-5) /hpf Urine RBC (Auto) (0-3) /hpf Ur Squamous Epith Cells (0-5) /hpf Urine Bacteria (<OCC) 10/20/16 10/19/16 10/19/16 Range/Units 05:29 21:13 21:00 WBC (4.8-10.8) K/uL RBC (4.40-5.90) Mil/uL Hgb (12.0-18.0) g/dL Hct (35.0-51.0) % MCV (80.0-94.0) fL MCH (27.0-31.0) pg MCHC (33.0-37.0) g/dL RDW (11.5-14.5) % Plt Count (130-400) K/uL MPV (7.2-11.7) fL Neut % (Auto) (50.0-75.0) % Lymph % (Auto) (20.0-40.0) % Deuel % (Auto) (0.0-10.0) % Eos % (Auto) (0.0-4.0) % Baso % (Auto) (0.0-2.0) % Neut # (1.8-7.0) K/uL Lymph # (1.0-4.3) K/uL Deuel # (0.0-0.8) K/uL Eos # (0.0-0.7) K/uL Baso # (0.0-0.2) K/uL Neutrophils % (Manual) (50-75) % Lymphocytes % (Manual) (20-40) % Monocytes % (Manual) (0-10) % Eosinophils % (Manual) (0-4) % Platelet Estimate (NORMAL) RBC Morphology Puncture Site Rr pCO2 62 H (35-45) mm/Hg pO2 58 L (80-100) mm/Hg HCO3 28.6 H (21-28) mmol/L ABG pH 7.33 L (7.35-7.45) ABG Total CO2 34.6 H (22-28) mmol/L ABG O2 Saturation 94.0 L (95-98) % ABG Base Excess 4.9 H (-2.0-3.0) mmol/L ABG Hemoglobin 13.4 (11.7-17.4) g/dL ABG Carboxyhemoglobin 2.3 H (0.5-1.5) % POC ABG HHb (Measured) 5.8 H (0.0-5.0) % ABG Methemoglobin 1.1 (0.0-3.0) % Philippe Test Pos A-a O2 Difference 435.0 mm/Hg Respiratory Index 7.5 Hgb O2 Saturation 90.8 L (95.0-98.0) % Vent Mode Bipap FiO2 80.0 % Inspiratory BiPAP 18 Expiratory BiPAP 8 Sodium (132-148) mmol/L Potassium (3.6-5.2) mmol/L Chloride (98-107) mmol/L Carbon Dioxide (22-30) mmol/L Anion Gap (10-20) BUN (9-20) mg/dL Creatinine (0.8-1.5) MG/DL Est GFR ( Amer) Est GFR (Non-Af Amer) POC Glucose (mg/dL) 314 H (65-110) mg/dL Random Glucose (75-110) mg/dL Calcium (8.6-10.4) mg/dl Phosphorus (2.5-4.5) mg/dL Magnesium (1.6-2.3) mg/dL Total Bilirubin (0.2-1.3) mg/dL AST (17-59) U/L ALT (21-72) U/L Alkaline Phosphatase (38-126) U/L Total Protein (6.3-8.3) g/dL Albumin (3.5-5.0) g/dL Globulin (2.2-3.9) gm/dL Albumin/Globulin Ratio (1.0-2.1) Urine Color Straw (YELLOW) Urine Clarity Clear (Clear) Urine pH 5.0 (5.0-8.0) Ur Specific [place] 1.006 (1.003-1.030) Urine Protein 2+ H (NEGATIVE) mg/dL Urine Glucose (UA) 3+ H (Normal) mg/dL Urine Ketones Negative (NEGATIVE) mg/dL Urine Blood Negative (NEGATIVE) Urine Nitrate Negative (NEGATIVE) Urine Bilirubin Negative (NEGATIVE) Urine Urobilinogen Normal (0.2-1.0) mg/dL Ur Leukocyte Esterase Neg (Negative) Mert/uL Urine WBC (Auto) < 1 (0-5) /hpf Urine RBC (Auto) 1 (0-3) /hpf Ur Squamous Epith Cells < 1 (0-5) /hpf Urine Bacteria Rare (<OCC) 10/19/16 Range/Units 16:07 WBC (4.8-10.8) K/uL RBC (4.40-5.90) Mil/uL Hgb (12.0-18.0) g/dL Hct (35.0-51.0) % MCV (80.0-94.0) fL MCH (27.0-31.0) pg MCHC (33.0-37.0) g/dL RDW (11.5-14.5) % Plt Count (130-400) K/uL MPV (7.2-11.7) fL Neut % (Auto) (50.0-75.0) % Lymph % (Auto) (20.0-40.0) % [place] % (Auto) (0.0-10.0) % Eos % (Auto) (0.0-4.0) % Baso % (Auto) (0.0-2.0) % Neut # (1.8-7.0) K/uL Lymph # (1.0-4.3) K/uL [place]uel # (0.0-0.8) K/uL Eos # (0.0-0.7) K/uL Baso # (0.0-0.2) K/uL Neutrophils % (Manual) (50-75) % Lymphocytes % (Manual) (20-40) % Monocytes % (Manual) (0-10) % Eosinophils % (Manual) (0-4) % Platelet Estimate (NORMAL) RBC Morphology Puncture Site pCO2 (35-45) mm/Hg pO2 (80-100) mm/Hg HCO3 (21-28) mmol/L ABG pH (7.35-7.45) ABG Total CO2 (22-28) mmol/L ABG O2 Saturation (95-98) % ABG Base Excess (-2.0-3.0) mmol/L ABG Hemoglobin (11.7-17.4) g/dL ABG Carboxyhemoglobin (0.5-1.5) % POC ABG HHb (Measured) (0.0-5.0) % ABG Methemoglobin (0.0-3.0) % Philippe Test A-a O2 Difference mm/Hg Respiratory Index Hgb O2 Saturation (95.0-98.0) % Vent Mode FiO2 % Inspiratory BiPAP Expiratory BiPAP Sodium (132-148) mmol/L Potassium (3.6-5.2) mmol/L Chloride (98-107) mmol/L Carbon Dioxide (22-30) mmol/L Anion Gap (10-20) BUN (9-20) mg/dL Creatinine (0.8-1.5) MG/DL Est GFR ( Amer) Est GFR (Non-Af Amer) POC Glucose (mg/dL) 307 H (65-110) mg/dL Random Glucose (75-110) mg/dL Calcium (8.6-10.4) mg/dl Phosphorus (2.5-4.5) mg/dL Magnesium (1.6-2.3) mg/dL Total Bilirubin (0.2-1.3) mg/dL AST (17-59) U/L ALT (21-72) U/L Alkaline Phosphatase (38-126) U/L Total Protein (6.3-8.3) g/dL Albumin (3.5-5.0) g/dL Globulin (2.2-3.9) gm/dL Albumin/Globulin Ratio (1.0-2.1) Urine Color (YELLOW) Urine Clarity (Clear) Urine pH (5.0-8.0) Ur Specific [place] (1.003-1.030) Urine Protein (NEGATIVE) mg/dL Urine Glucose (UA) (Normal) mg/dL Urine Ketones (NEGATIVE) mg/dL Urine Blood (NEGATIVE) Urine Nitrate (NEGATIVE) Urine Bilirubin (NEGATIVE) Urine Urobilinogen (0.2-1.0) mg/dL Ur Leukocyte Esterase (Negative) Mert/uL Urine WBC (Auto) (0-5) /hpf Urine RBC (Auto) (0-3) /hpf Ur Squamous Epith Cells (0-5) /hpf Urine Bacteria (<OCC) Laboratory Results - last 24 hr 10/19/16 10/19/16 10/19/16 16:07 21:00 21:13 WBC RBC Hgb Hct MCV MCH MCHC RDW Plt Count MPV Neut % (Auto) Lymph % (Auto) [place] % (Auto) Eos % (Auto) Baso % (Auto) Neut # Lymph # [place] # Eos # Baso # Neutrophils % (Manual) Lymphocytes % (Manual) Monocytes % (Manual) Eosinophils % (Manual) Platelet Estimate RBC Morphology Puncture Site pCO2 pO2 HCO3 ABG pH ABG Total CO2 ABG O2 Saturation ABG Base Excess ABG Hemoglobin ABG Carboxyhemoglobin POC ABG HHb (Measured) ABG Methemoglobin Philippe Test A-a O2 Difference Respiratory Index Hgb O2 Saturation Vent Mode FiO2 Inspiratory BiPAP Expiratory BiPAP Sodium Potassium Chloride Carbon Dioxide Anion Gap BUN Creatinine Est GFR ( Amer) Est GFR (Non-Af Amer) POC Glucose (mg/dL) 307 H 314 H Random Glucose Calcium Phosphorus Magnesium Total Bilirubin AST ALT Alkaline Phosphatase Total Protein Albumin Globulin Albumin/Globulin Ratio Urine Color Straw Urine Clarity Clear Urine pH 5.0 Ur Specific [place] 1.006 Urine Protein 2+ H Urine Glucose (UA) 3+ H Urine Ketones Negative Urine Blood Negative Urine Nitrate Negative Urine Bilirubin Negative Urine Urobilinogen Normal Ur Leukocyte Esterase Neg Urine WBC (Auto) < 1 Urine RBC (Auto) 1 Ur Squamous Epith Cells < 1 Urine Bacteria Rare 10/20/16 10/20/16 10/20/16 05:29 06:32 06:32 WBC 26.2 H RBC 4.45 Hgb 12.8 Hct 39.4 MCV 88.5 MCH 28.9 MCHC 32.6 L RDW 14.5 Plt Count 231 MPV 11.0 Neut % (Auto) 84.6 H Lymph % (Auto) 6.6 L [place] % (Auto) 8.2 Eos % (Auto) 0.4 Baso % (Auto) 0.2 Neut # 22.2 H Lymph # 1.7 Deuel # 2.1 H Eos # 0.1 Baso # 0.1 Neutrophils % (Manual) 82 H Lymphocytes % (Manual) 8 L Monocytes % (Manual) 9 Eosinophils % (Manual) 1 Platelet Estimate Normal RBC Morphology Normal Puncture Site Rr pCO2 62 H pO2 58 L HCO3 28.6 H ABG pH 7.33 L ABG Total CO2 34.6 H ABG O2 Saturation 94.0 L ABG Base Excess 4.9 H ABG Hemoglobin 13.4 ABG Carboxyhemoglobin 2.3 H POC ABG HHb (Measured) 5.8 H ABG Methemoglobin 1.1 Philippe Test Pos A-a O2 Difference 435.0 Respiratory Index 7.5 Hgb O2 Saturation 90.8 L Vent Mode Bipap FiO2 80.0 Inspiratory BiPAP 18 Expiratory BiPAP 8 Sodium 136 Potassium 5.5 H Chloride 95 L Carbon Dioxide 33 H Anion Gap 14 BUN 62 H Creatinine 1.2 Est GFR ( Amer) > 60 Est GFR (Non-Af Amer) > 60 POC Glucose (mg/dL) Random Glucose 277 H Calcium 8.6 Phosphorus 4.0 Magnesium 2.4 H Total Bilirubin 0.7 AST 24 ALT 35 Alkaline Phosphatase 128 H Total Protein 6.5 Albumin 3.2 L Globulin 3.3 Albumin/Globulin Ratio 1.0 Urine Color Urine Clarity Urine pH Ur Specific [place] Urine Protein Urine Glucose (UA) Urine Ketones Urine Blood Urine Nitrate Urine Bilirubin Urine Urobilinogen Ur Leukocyte Esterase Urine WBC (Auto) Urine RBC (Auto) Ur Squamous Epith Cells Urine Bacteria 10/20/16 07:29 WBC RBC Hgb Hct MCV MCH MCHC RDW Plt Count MPV Neut % (Auto) Lymph % (Auto) [place] % (Auto) Eos % (Auto) Baso % (Auto) Neut # Lymph # Deuel # Eos # Baso # Neutrophils % (Manual) Lymphocytes % (Manual) Monocytes % (Manual) Eosinophils % (Manual) Platelet Estimate RBC Morphology Puncture Site pCO2 pO2 HCO3 ABG pH ABG Total CO2 ABG O2 Saturation ABG Base Excess ABG Hemoglobin ABG Carboxyhemoglobin POC ABG HHb (Measured) ABG Methemoglobin Philippe Test A-a O2 Difference Respiratory Index Hgb O2 Saturation Vent Mode FiO2 Inspiratory BiPAP Expiratory BiPAP Sodium Potassium Chloride Carbon Dioxide Anion Gap BUN Creatinine Est GFR ( Amer) Est GFR (Non-Af Amer) POC Glucose (mg/dL) 258 H Random Glucose Calcium Phosphorus Magnesium Total Bilirubin AST ALT Alkaline Phosphatase Total Protein Albumin Globulin Albumin/Globulin Ratio Urine Color Urine Clarity Urine pH Ur Specific [place] Urine Protein Urine Glucose (UA) Urine Ketones Urine Blood Urine Nitrate Urine Bilirubin Urine Urobilinogen Ur Leukocyte Esterase Urine WBC (Auto) Urine RBC (Auto) Ur Squamous Epith Cells Urine Bacteria Critical Care Progress Note - Nutrition Nutrition: Nutrition Category Date Time Status Renal Diet [DIET] Diets 10/15/16 Breakfast Active Attending/Attestation - Attestation I have personally seen and examined this patient.: Yes I have fully participated in the care of the patient.: Yes I have reviewed all pertinent clinical information: Yes Notes (Text): 10/20/16 15:29 I have seen and examined the patient. Medical records, lab studies, and imaging were reviewed by me and a management plan was formulated on multidisciplinary rounds with resident Dr. Oneil. I agree with their above documented assessment and plan. The patient is to remain on BIPAP, with current severe hypoxia from severe ARDS. The patient is clinically much better than his hypoxia. Current supportive care with steroids, diuresis and BIPAP. Underlying etiology uncertain, possible negative pressure pulmonary edema. presumptive treatment for PNA with ceftriaxone, ofloxacin and azithromycin. Critical Care Time 35 minutes. Multi-disciplinary rounds were performed with house staff, nursing, speech therapy, respiratory therapy, pharmacy and nutrition with integrated input from the primary team/attending and other consulting services. The documented time is cumulative and includes review of patient data/exams/labs/chart review and examination of the patient on rounds and throughout the day; time is exclusive of any procedures or teaching time. 10/20/16 15:32 10/20/16 15:33
[2016-10-20] MEDS: Azithromycin 500 MG in Sodium Chloride 0.9% 250 ML IVPB SCH ×2 (10:00→11:53)
[2016-10-20] MEDS: MethylPREDNISolone 40 mg Vial IVP SCH (10:47)
[2016-10-20] MEDS: Ofloxacin 0.3% Otic Soln AU SCH ×2 (10:49→17:02)
[2016-10-20] MEDS ORDERED: Sod Polystyrene Sulf 15 gm/60 ml Oral Susp PO ONE (10:57)
--- NOTE | 2016-10-20 11:01 | CP.PCM.PN ---
Subjective - Date & Time of Evaluation Date of Evaluation: 10/20/16 Time of Evaluation: 10:58 - Subjective Subjective: seen and examined remains on bipap, hypoxemic on iv lasix, uop 4.8L, neg 2.7 L cxr noted no n/v/d/dizziness/cp/headache Objective - Vital Signs/Intake and Output Vital Signs (last 24 hours): Temp Pulse Resp BP Pulse Ox 97.4 F L 82 23 132/80 98 10/20/16 08:00 10/20/16 08:06 10/20/16 08:06 10/20/16 10:48 10/20/16 08:06 Intake and Output: 10/20/16 10/20/16 06:59 18:59 Intake Total 400 50 Output Total 2050 Balance -1650 50 - Medications Medications: Current Medications Albuterol/Ipratropium (Duoneb 3 Mg/0.5 Mg (3 Ml) Ud) 3 ml INH RQ6 [facility] Last Admin: 10/20/16 07:41 Dose: 3 ml Apixaban (Eliquis) 5 mg PO BID [facility] Last Admin: 10/20/16 10:48 Dose: 5 mg Aspirin (Aspirin Chewable) 81 mg PO DAILY [facility] Last Admin: 10/20/16 10:48 Dose: 81 mg Famotidine (Pepcid) 20 mg PO DAILY [facility] Last Admin: 10/20/16 10:48 Dose: 20 mg Furosemide (Lasix) 40 mg IVP BID [facility] Last Admin: 10/20/16 10:48 Dose: 40 mg Ceftriaxone Sodium 1 gm/ (Sodium Chloride) 100 mls @ 200 mls/hr IVPB DAILY [facility] Last Admin: 10/20/16 10:50 Dose: 200 mls/hr Vancomycin HCl 500 mg/ Sodium (Chloride) 100 mls @ 100 mls/hr IVPB Q24H [facility] Azithromycin 500 mg/ Sodium (Chloride) 250 mls @ 250 mls/hr IVPB Q24H [facility] Insulin Aspart (Novolog) 0 unit SC ACHS [facility] PRN Reason: Protocol Last Admin: 10/20/16 08:17 Dose: 6 unit Insulin Detemir (Levemir) 30 unit SC Q12H [facility] Last Admin: 10/20/16 08:18 Dose: 30 unit Methylprednisolone (Solu-Medrol) 40 mg IVP DAILY [facility] Last Admin: 10/20/16 10:47 Dose: 40 mg Montelukast Sodium (Singulair) 10 mg PO [facility] Last Admin: 10/19/16 21:11 Dose: 10 mg Ofloxacin (Floxin 0.3% Otic Soln) 0.5 ml AU BID [facility] Last Admin: 10/20/16 10:49 Dose: 1 drop Rosuvastatin Calcium (Crestor) 20 mg PO [facility] Last Admin: 10/19/16 21:11 Dose: 20 mg Fluticasone/Salmeterol (Advair Diskus 250/50) 1 puff IH RQ12 [facility] Last Admin: 10/20/16 07:41 Dose: 1 puff - Labs Labs: 10/20/16 06:32 10/20/16 06:32 - Constitutional Appears: Non-toxic, Other (obese) - Head Exam Head Exam: NORMAL INSPECTION - Eye Exam Eye Exam: Normal appearance - ENT Exam Additional comments: bipap mask - Neck Exam Neck Exam: Normal Inspection - Respiratory Exam Respiratory Exam: NORMAL BREATHING PATTERN (distant breath sounds) - GI/Abdominal Exam GI & Abdominal Exam: Distended, Soft - Extremities Exam Extremities Exam: Normal Inspection, Pedal Edema (2+) - Neurological Exam Neurological Exam: Alert, Awake, Oriented x3 - Psychiatric Exam Psychiatric exam: Normal Affect - Skin Skin Exam: Normal Color Assessment and Plan (1) Acute kidney injury Status: Acute (2) CHF (congestive heart failure) Status: Acute (3) CKD stage 3 due to type 2 diabetes mellitus Status: Acute (4) Otitis externa of right ear Status: Acute (5) Type 2 diabetes mellitus with diabetic nephropathy Status: Acute (6) Hyperkalemia Status: Acute - Assessment and Plan (Free Text) Assessment: maintain iv lasix antibiotics / supportive care on low k diet, one dose of kayexelate today.
--- NOTE | 2016-10-20 19:25 | CP.PCM.PN ---
Subjective - Date & Time of Evaluation Date of Evaluation: 10/20/16 Time of Evaluation: 19:25 - Subjective Subjective: The patient is currently on BiPAP, saturation is 94% on FiO2 of 70% with a slightly high pressure supple. Patient is alert awake, comfortable. Cough noted,-year-old to bring up the mucus now. No chest pain. Eating okay, urine output is somewhat better Vital signs stable. Elevated blood pressure noted. Chest bilateral wheezing and rales noted regular heart sound nontender abdomen edema bilaterally noted Labs reviewed BUN/creatinine prerenal acidemia noted. Elevated potassium level noted. We will monitor the potassium level tomorrow. Repeat the labs in the morning. Patient is 46-year-old male diabetes hypertension now admitted with acute respiratory failure possible ARDS and pneumonia and fluid overload state. Renal failure, acute on chronic. Continue the Lasix, blood pressure control, we'll monitor the potassium level again and will follow the patient currently on Zosyn and vancomycin and azithromycin. Objective - Vital Signs/Intake and Output Vital Signs (last 24 hours): Temp Pulse Resp BP Pulse Ox 98.7 F 87 22 164/90 H 94 L 10/20/16 16:00 10/20/16 19:07 10/20/16 19:07 10/20/16 19:07 10/20/16 19:07 Intake and Output: 10/20/16 10/21/16 18:59 06:59 Intake Total 1140 0 Output Total 2230 Balance -1090 0 - Medications Medications: Current Medications Albuterol/Ipratropium (Duoneb 3 Mg/0.5 Mg (3 Ml) Ud) 3 ml INH RQ6 [facility] Last Admin: 10/20/16 13:37 Dose: 3 ml Apixaban (Eliquis) 5 mg PO BID [facility] Last Admin: 10/20/16 18:29 Dose: 5 mg Aspirin (Aspirin Chewable) 81 mg PO DAILY [facility] Last Admin: 10/20/16 10:48 Dose: 81 mg Famotidine (Pepcid) 20 mg PO DAILY [facility] Last Admin: 10/20/16 10:48 Dose: 20 mg Furosemide (Lasix) 40 mg IVP BID [facility] Last Admin: 10/20/16 17:01 Dose: 40 mg Vancomycin HCl 500 mg/ Sodium (Chloride) 100 mls @ 100 mls/hr IVPB Q24H [facility] Last Admin: 10/20/16 15:18 Dose: 100 mls/hr Azithromycin 500 mg/ Sodium (Chloride) 250 mls @ 250 mls/hr IVPB Q24H [facility] Last Admin: 10/20/16 11:53 Dose: 250 mls/hr Piperacillin Sod/Tazobactam Sod (Zosyn 2.25 Gm Iv Premix) 2.25 gm in 50 mls @ 100 mls/hr IVPB Q8 [facility] Insulin Aspart (Novolog) 0 unit SC ACHS [facility] PRN Reason: Protocol Last Admin: 10/20/16 17:00 Dose: 8 unit Insulin Detemir (Levemir) 30 unit SC Q12H [facility] Last Admin: 10/20/16 08:18 Dose: 30 unit Methylprednisolone (Solu-Medrol) 40 mg IVP DAILY [facility] Last Admin: 10/20/16 10:47 Dose: 40 mg Montelukast Sodium (Singulair) 10 mg PO HS [facility] Last Admin: 10/19/16 21:11 Dose: 10 mg Ofloxacin (Floxin 0.3% Otic Soln) 0.5 ml AU BID [facility] Last Admin: 10/20/16 17:02 Dose: 2 drop Rosuvastatin Calcium (Crestor) 20 mg PO HS [facility] Last Admin: 10/19/16 21:11 Dose: 20 mg Fluticasone/Salmeterol (Advair Diskus 250/50) 1 puff IH RQ12 [facility] Last Admin: 10/20/16 07:41 Dose: 1 puff - Labs Labs: 10/20/16 06:32 10/20/16 06:32
[2016-10-20] MEDS: Piperacill/Tazo 2.25gm in Dex 2.25 GM/50 ML BAG IVPB SCH (21:24)
--- NOTE | 2016-10-20 22:41 | CP.PCM.CON ---
History of Present Illness - History of Present Illness History of Present Illness: Patient seen and evaluated Consulted for Possible Pulmonary edema Patient currently feels better Will Check ECHO Past Patient History - Infectious Disease Hx of Infectious Diseases: None - Past Medical History & Family History Past Medical History?: Yes - Past Social History Smoking Status: Former Smoker - CARDIAC Hx Congestive Heart Failure: Yes Hx Hypertension: Yes - PULMONARY Hx Asthma: Yes Hx Chronic Obstructive Pulmonary Disease (COPD): Yes Hx Pneumonia: Yes (2015) Other/Comment: CKD/HENRIQUE requiring dialysis - NEUROLOGICAL Hx Neurological Disorder: Yes Other/Comment: c/o headache on admission, spinal tap attempted to remove spinal fluid. becuase of immobility developed DVT. at the time. right leg. - HEENT Hx HEENT Problems: No - RENAL Hx Chronic Kidney Disease: Yes Hx Dialysis: Yes (x2 treatments) - ENDOCRINE/METABOLIC Hx Diabetes Mellitus Type 2: Yes - HEMATOLOGICAL/ONCOLOGICAL Hx Blood Disorders: No - INTEGUMENTARY Hx Dermatological Problems: Yes Hx Cellulitis: Yes - MUSCULOSKELETAL/RHEUMATOLOGICAL Hx Musculoskeletal Disorders: No Hx Falls: No - GASTROINTESTINAL Hx Gastrointestinal Disorders: No - GENITOURINARY/GYNECOLOGICAL Hx Genitourinary Disorders: No - PSYCHIATRIC Hx Substance Use: No - SURGICAL HISTORY Hx Surgeries: Yes Hx Splenectomy: Yes (3 years ago) Hx Vascular Access Device: Yes (HX INGUINAL PERMA CATH) - ANESTHESIA Hx Anesthesia: Yes Hx Anesthesia Reactions: No Hx Malignant Hyperthermia: No Meds Allergies/Adverse Reactions: Allergies Allergy/AdvReac Type Severity Reaction Status Date / Time EGG Allergy Intermediate RASH Verified 10/14/16 08:51 - Medications Medications: Current Medications Albuterol/Ipratropium (Duoneb 3 Mg/0.5 Mg (3 Ml) Ud) 3 ml INH RQ6 [facility] Last Admin: 10/20/16 19:33 Dose: 3 ml Amlodipine Besylate (Norvasc) 5 mg PO DAILY [facility] Apixaban (Eliquis) 5 mg PO BID [facility] Last Admin: 10/20/16 18:29 Dose: 5 mg Aspirin (Aspirin Chewable) 81 mg PO DAILY [facility] Last Admin: 10/20/16 10:48 Dose: 81 mg Famotidine (Pepcid) 20 mg PO DAILY [facility] Last Admin: 10/20/16 10:48 Dose: 20 mg Furosemide (Lasix) 60 mg IVP BID [facility] Vancomycin HCl 500 mg/ Sodium (Chloride) 100 mls @ 100 mls/hr IVPB Q24H [facility] Last Admin: 10/20/16 15:18 Dose: 100 mls/hr Azithromycin 500 mg/ Sodium (Chloride) 250 mls @ 250 mls/hr IVPB Q24H [facility] Last Admin: 10/20/16 11:53 Dose: 250 mls/hr Piperacillin Sod/Tazobactam Sod (Zosyn 2.25 Gm Iv Premix) 2.25 gm in 50 mls @ 100 mls/hr IVPB Q8 [facility] Last Admin: 10/20/16 21:24 Dose: 100 mls/hr Insulin Aspart (Novolog) 0 unit SC ACHS [facility] PRN Reason: Protocol Last Admin: 10/20/16 21:25 Dose: 2 unit Insulin Detemir (Levemir) 30 unit SC Q12H [facility] Last Admin: 10/20/16 21:23 Dose: 30 unit Methylprednisolone (Solu-Medrol) 20 mg IVP DAILY [facility] Montelukast Sodium (Singulair) 10 mg PO HS [facility] Last Admin: 10/20/16 21:23 Dose: 10 mg Ofloxacin (Floxin 0.3% Otic Soln) 0.5 ml AU BID [facility] Last Admin: 10/20/16 17:02 Dose: 2 drop Rosuvastatin Calcium (Crestor) 20 mg PO HS [facility] Last Admin: 10/20/16 21:23 Dose: 20 mg Results - Vital Signs Recent Vital Signs: Last Vital Signs Temp 98.2 F 10/20/16 20:00 Pulse 90 10/20/16 22:11 Resp 25 H 10/20/16 22:06 BP 142/76 10/20/16 22:06 Pulse Ox 95 10/20/16 22:06 - Labs Result Diagrams: 10/20/16 06:32 10/20/16 06:32 Labs: Laboratory Results - last 24 hr 10/20/16 10/20/16 10/20/16 05:29 06:32 06:32 WBC 26.2 H RBC 4.45 Hgb 12.8 Hct 39.4 MCV 88.5 MCH 28.9 MCHC 32.6 L RDW 14.5 Plt Count 231 MPV 11.0 Neut % (Auto) 84.6 H Lymph % (Auto) 6.6 L [place] % (Auto) 8.2 Eos % (Auto) 0.4 Baso % (Auto) 0.2 Neut # 22.2 H Lymph # 1.7 [place] # 2.1 H Eos # 0.1 Baso # 0.1 Neutrophils % (Manual) 82 H Lymphocytes % (Manual) 8 L Monocytes % (Manual) 9 Eosinophils % (Manual) 1 Platelet Estimate Normal RBC Morphology Normal Puncture Site Rr pCO2 62 H pO2 58 L HCO3 28.6 H ABG pH 7.33 L ABG Total CO2 34.6 H ABG O2 Saturation 94.0 L ABG Base Excess 4.9 H ABG Hemoglobin 13.4 ABG Carboxyhemoglobin 2.3 H POC ABG HHb (Measured) 5.8 H ABG Methemoglobin 1.1 Philippe Test Pos A-a O2 Difference 435.0 Respiratory Index 7.5 Hgb O2 Saturation 90.8 L Vent Mode Bipap FiO2 80.0 Inspiratory BiPAP 18 Expiratory BiPAP 8 Sodium 136 Potassium 5.5 H Chloride 95 L Carbon Dioxide 33 H Anion Gap 14 BUN 62 H Creatinine 1.2 Est GFR ( Amer) > 60 Est GFR (Non-Af Amer) > 60 POC Glucose (mg/dL) Random Glucose 277 H Calcium 8.6 Phosphorus 4.0 Magnesium 2.4 H Total Bilirubin 0.7 AST 24 ALT 35 Alkaline Phosphatase 128 H Total Protein 6.5 Albumin 3.2 L Globulin 3.3 Albumin/Globulin Ratio 1.0 10/20/16 10/20/16 10/20/16 07:29 11:35 16:14 WBC RBC Hgb Hct MCV MCH MCHC RDW Plt Count MPV Neut % (Auto) Lymph % (Auto) [place] % (Auto) Eos % (Auto) Baso % (Auto) Neut # Lymph # [place] # Eos # Baso # Neutrophils % (Manual) Lymphocytes % (Manual) Monocytes % (Manual) Eosinophils % (Manual) Platelet Estimate RBC Morphology Puncture Site pCO2 pO2 HCO3 ABG pH ABG Total CO2 ABG O2 Saturation ABG Base Excess ABG Hemoglobin ABG Carboxyhemoglobin POC ABG HHb (Measured) ABG Methemoglobin Philippe Test A-a O2 Difference Respiratory Index Hgb O2 Saturation Vent Mode FiO2 Inspiratory BiPAP Expiratory BiPAP Sodium Potassium Chloride Carbon Dioxide Anion Gap BUN Creatinine Est GFR ( Amer) Est GFR (Non-Af Amer) POC Glucose (mg/dL) 258 H 277 H 367 H Random Glucose Calcium Phosphorus Magnesium Total Bilirubin AST ALT Alkaline Phosphatase Total Protein Albumin Globulin Albumin/Globulin Ratio 10/20/16 20:58 WBC RBC Hgb Hct MCV MCH MCHC RDW Plt Count MPV Neut % (Auto) Lymph % (Auto) [place] % (Auto) Eos % (Auto) Baso % (Auto) Neut # Lymph # [place] # Eos # Baso # Neutrophils % (Manual) Lymphocytes % (Manual) Monocytes % (Manual) Eosinophils % (Manual) Platelet Estimate RBC Morphology Puncture Site pCO2 pO2 HCO3 ABG pH ABG Total CO2 ABG O2 Saturation ABG Base Excess ABG Hemoglobin ABG Carboxyhemoglobin POC ABG HHb (Measured) ABG Methemoglobin Philippe Test A-a O2 Difference Respiratory Index Hgb O2 Saturation Vent Mode FiO2 Inspiratory BiPAP Expiratory BiPAP Sodium Potassium Chloride Carbon Dioxide Anion Gap BUN Creatinine Est GFR ( Amer) Est GFR (Non-Af Amer) POC Glucose (mg/dL) 342 H Random Glucose Calcium Phosphorus Magnesium Total Bilirubin AST ALT Alkaline Phosphatase Total Protein Albumin Globulin Albumin/Globulin Ratio
[2016-10-21] MEDS: Albuterol-Ipratrop 3 mg / 0.5 (3 ml) UD INH SCH ×4 (02:49→19:59)
[2016-10-21 06:04] LABS: ABG ALLEN TEST POS; ARTERIAL BLOOD GAS MODE BiPAP; ARTERIAL BLOOD HGB O2 SAT 95.5 % (95.0-98.0); CARBOXYHEMOGLOBIN 1.5 % (0.5-1.5); DRAW SITE R RA; HHB 1.1 % (0.0-5.0)
[2016-10-21] MEDS: Piperacill/Tazo 2.25gm in Dex 2.25 GM/50 ML BAG IVPB SCH ×3 (06:07→21:09)
[2016-10-21 06:41] LABS: BASO # 0.1 K/uL (0.0-0.2); BASO % 0.4 % (0.0-2.0); EOS # 0.2 K/uL (0.0-0.7); EOS % 0.8 % (0.0-4.0); HEMATOCRIT 42.1 % (35.0-51.0); LYMPH # 1.7 K/uL (1.0-4.3); MEAN CELL VOLUME 88.2 fL (80.0-94.0); MEAN CORPUSCULAR HEMOGLOBIN 28.6 pg (27.0-31.0); MEAN CORPUSCULAR HGB CONC 32.5 g/dL (33.0-37.0); MEAN PLATELET VOLUME 10.2 fL (7.2-11.7); MONO # 2.6 K/uL (0.0-0.8); MONO % 11.1 % (0.0-10.0); NRBC % 0.2 % (0.0-2.0); PLATELET COUNT 240 K/uL (130-400); RED CELL DISTRIBUTION WIDTH 14.5 % (11.5-14.5); WHITE BLOOD COUNT 23.8 K/uL (4.8-10.8)
[2016-10-21 06:43] LABS: ALKALINE PHOSPHATASE 159 U/L (38-126); ALT/SGPT 43 U/L (21-72); AST/SGOT 32 U/L (17-59); BILIRUBIN,TOTAL 0.8 mg/dL (0.2-1.3); BLOOD UREA NITROGEN 57 mg/dL (9-20); CALCIUM 8.9 mg/dl (8.6-10.4); CARBON DIOXIDE 34 mmol/L (22-30); CHLORIDE 94 mmol/L (98-107); GFR AFRICAN-AMERICAN > 60; GLUCOSE,RANDOM 215 mg/dL (75-110); MAGNESIUM 2.2 mg/dL (1.6-2.3); PHOSPHOROUS 4.5 mg/dL (2.5-4.5); POTASSIUM 4.5 mmol/L (3.6-5.2); SODIUM 140 mmol/L (132-148); TOTAL PROTEIN 6.6 g/dL (6.3-8.3)
[2016-10-21] MEDS: Insulin Detemir 100 units/ml Vial (Levemir) SC SCH ×2 (08:14→21:07)
[2016-10-21] MEDS: (Novolog) Insulin Aspart, Recombinant 100 u/ml 10 ml vial SC SCH ×4 (08:15→21:26)
[2016-10-21 08:47] LABS: NEUTROPHIL 84 % (50-75); TOTAL CELLS COUNTED 100
--- NOTE | 2016-10-21 09:25 | RAD ---
HISTORY: sob COMPARISON: Portable chest radiograph 10/20/2016. FINDINGS: LUNGS: No active pulmonary disease. PLEURA: No significant pleural effusion identified, no pneumothorax apparent. CARDIOVASCULAR: Cardiomegaly is again apparent appears stable. Plaster pattern appears diminished in the interval further making initial pattern representing CHF, currently improved. Right costophrenic sulcus is the cough partially. OSSEOUS STRUCTURES: No significant abnormalities. VISUALIZED UPPER ABDOMEN: Normal. OTHER FINDINGS: None. IMPRESSION: Cardiomegaly, improved CHF apparent. No acute infiltrate or pleural effusion identified this time yes.
[2016-10-21] MEDS: Ofloxacin 0.3% Otic Soln AU SCH ×2 (10:03→17:43)
[2016-10-21] MEDS: MethylPREDNISolone 40 mg Vial IVP SCH (10:03)
[2016-10-21] MEDS: Azithromycin 500 MG in Sodium Chloride 0.9% 250 ML IVPB SCH (12:08)
--- NOTE | 2016-10-21 14:24 | CP.CCUPN ---
<Yudelka Merritt - Last Filed: 10/21/16 14:19> CCU Subjective - Physician Review Subjective (Free Text): Patient was seen and examined at bedside in this morning. Patient was sitting up comfortably and in no acute distress. Patient reports feeling well. He reports he has a cough with brown sputum. Patient denies chest pain, abdominal pain, fevers, headaches, nausea, vomiting, diarrhea, constipation, and leg swelling or pain. 10/21/16 14:19 CCU Objective - Vital Signs / Intake & Output Vital Signs (Last 4 hours): Vital Signs Temp Pulse Resp BP Pulse Ox 10/21/16 12:06 84 19 139/71 94 L 10/21/16 12:00 98.3 F 79 22 139/71 94 L 10/21/16 11:15 21 10/21/16 11:00 92 H 21 91 L Intake and Output (Last 8hrs): Intake & Output 10/20/16 10/21/16 10/21/16 22:59 06:59 14:59 Intake Total 630 300 420 Output Total 1830 1050 1370 Balance -1200 -750 -950 Weight 281 lb Intake: Intake, IV Amount 150 50 Left Hand 150 50 Oral 480 250 420 Output: Urine 1830 1050 1370 Urine, Voided 1830 1050 1370 Other: # Voids Urine, Voided 1 1 # Bowel Movements 1 - Physical Exam Head: Positive for: Atraumatic, Normocephalic Extroacular Muscles: Positive for: EOMI Conjunctiva: Positive for: Normal Mouth: Positive for: Moist Mucous Membranes Respiratory/Chest: Positive for: Decreased Breath Sounds, Rales (B/L; improved since yesterday), Rhonchi. Negative for: Clear to Auscultation Cardiovascular: Positive for: Regular Rate and Rhythm, Normal S1, S2 Abdomen: Positive for: Normal Bowel Sounds. Negative for: Tenderness Upper Extremity: Positive for: Normal Inspection Lower Extremity: Positive for: Edema. Negative for: CALF TENDERNESS, Tenderness Skin: Positive for: Warm, Dry, Normal Color Psychiatric: Positive for: Alert, Oriented x 3 - Medications Active Medications: Active Medications Generic Name Dose Route Start Last Admin Trade Name Freq PRN Reason Stop Dose Admin Albuterol/Ipratropium 3 ml 10/19/16 14:06 10/21/16 13:49 Duoneb 3 Mg/0.5 Mg (3 Ml) Ud INH 3 ml RQ6 ANABELLA Administration Amlodipine Besylate 5 mg 10/21/16 10:00 10/21/16 10:07 Norvasc PO 5 mg DAILY ANABELLA Administration Apixaban 5 mg 10/14/16 18:00 10/21/16 10:02 Eliquis PO 5 mg BID ANABELLA Administration Aspirin 81 mg 10/15/16 10:00 10/21/16 10:02 Aspirin Chewable PO 81 mg DAILY ANABELLA Administration Famotidine 20 mg 10/19/16 10:00 10/21/16 10:02 Pepcid PO 20 mg DAILY ANABELLA Administration Furosemide 60 mg 10/20/16 19:37 10/21/16 10:03 Lasix IVP 60 mg BID ANABELLA Administration Vancomycin HCl 500 mg/ Sodium 100 mls @ 100 mls/hr 10/20/16 16:00 10/20/16 15 :18 Chloride IVPB 100 mls/hr Q24H ANABELLA Administration Azithromycin 500 mg/ Sodium 250 mls @ 250 mls/hr 10/20/16 12:00 10/21/16 12: 08 Chloride IVPB 250 mls/hr Q24H ANABELLA Administration Piperacillin Sod/Tazobactam Sod 2.25 gm in 50 mls @ 100 mls/hr 10/20/16 22:00 10/21/16 06:07 Zosyn 2.25 Gm Iv Premix IVPB 100 mls/hr Q8 ANABELLA Administration Insulin Aspart 0 unit 10/15/16 11:30 10/21/16 12:07 Novolog SC 4 unit ACHS ANABELLA Administration Protocol Insulin Detemir 30 unit 10/19/16 20:36 10/21/16 08:14 Levemir SC 30 unit Q12H ANABELLA Administration Methylprednisolone 20 mg 10/20/16 19:33 10/21/16 10:03 Solu-Medrol IVP 20 mg DAILY ANABELLA Administration Montelukast Sodium 10 mg 10/14/16 22:00 10/20/16 21:23 Singulair PO 10 mg HS ANABELLA Administration Ofloxacin 0.5 ml 10/14/16 18:00 10/21/16 10:03 Floxin 0.3% Otic Soln AU 2 drop BID ANABELLA Administration Rosuvastatin Calcium 20 mg 10/14/16 22:00 08/03/17 21:23 Crestor PO 20 mg HS ANABELLA Administration - Patient Studies Lab Studies: Microbiology Studies 10/19/16 05:00 Blood Culture - Preliminary Blood-Venous NO GROWTH AFTER 24 HOURS Lab Studies 10/21/16 10/21/16 10/21/16 Range/Units 11:26 07:23 06:19 WBC 23.8 H (4.8-10.8) K/uL RBC 4.78 (4.40-5.90) Mil/uL Hgb 13.7 (12.0-18.0) g/dL Hct 42.1 (35.0-51.0) % MCV 88.2 (80.0-94.0) fL MCH 28.6 (27.0-31.0) pg MCHC 32.5 L (33.0-37.0) g/dL RDW 14.5 (11.5-14.5) % Plt Count 240 (130-400) K/uL MPV 10.2 (7.2-11.7) fL Neut % (Auto) 80.7 H (50.0-75.0) % Lymph % (Auto) 7.0 L (20.0-40.0) % [place] % (Auto) 11.1 H (0.0-10.0) % Eos % (Auto) 0.8 (0.0-4.0) % Baso % (Auto) 0.4 (0.0-2.0) % Neut # 19.2 H (1.8-7.0) K/uL Lymph # 1.7 (1.0-4.3) K/uL [place] # 2.6 H (0.0-0.8) K/uL Eos # 0.2 (0.0-0.7) K/uL Baso # 0.1 (0.0-0.2) K/uL Neutrophils % (Manual) 84 H (50-75) % Band Neutrophils % 1 (0-2) % Lymphocytes % (Manual) 5 L (20-40) % Monocytes % (Manual) 10 (0-10) % Platelet Estimate Normal (NORMAL) RBC Morphology Normal Puncture Site pCO2 (35-45) mm/Hg pO2 (80-100) mm/Hg HCO3 (21-28) mmol/L ABG pH (7.35-7.45) ABG Total CO2 (22-28) mmol/L ABG O2 Saturation (95-98) % ABG Base Excess (-2.0-3.0) mmol/L ABG Hemoglobin (11.7-17.4) g/dL ABG Carboxyhemoglobin (0.5-1.5) % POC ABG HHb (Measured) (0.0-5.0) % ABG Methemoglobin (0.0-3.0) % Philippe Test A-a O2 Difference mm/Hg Respiratory Index Hgb O2 Saturation (95.0-98.0) % Vent Mode FiO2 % Inspiratory BiPAP Expiratory BiPAP Sodium (132-148) mmol/L Potassium (3.6-5.2) mmol/L Chloride (98-107) mmol/L Carbon Dioxide (22-30) mmol/L Anion Gap (10-20) BUN (9-20) mg/dL Creatinine (0.8-1.5) MG/DL Est GFR ( Amer) Est GFR (Non-Af Amer) POC Glucose (mg/dL) 239 H 189 H (65-110) mg/dL Random Glucose (75-110) mg/dL Calcium (8.6-10.4) mg/dl Phosphorus (2.5-4.5) mg/dL Magnesium (1.6-2.3) mg/dL Total Bilirubin (0.2-1.3) mg/dL AST (17-59) U/L ALT (21-72) U/L Alkaline Phosphatase (38-126) U/L Total Protein (6.3-8.3) g/dL Albumin (3.5-5.0) g/dL Globulin (2.2-3.9) gm/dL Albumin/Globulin Ratio (1.0-2.1) 10/21/16 10/21/16 10/20/16 Range/Units 06:17 05:23 20:58 WBC (4.8-10.8) K/uL RBC (4.40-5.90) Mil/uL Hgb (12.0-18.0) g/dL Hct (35.0-51.0) % MCV (80.0-94.0) fL MCH (27.0-31.0) pg MCHC (33.0-37.0) g/dL RDW (11.5-14.5) % Plt Count (130-400) K/uL MPV (7.2-11.7) fL Neut % (Auto) (50.0-75.0) % Lymph % (Auto) (20.0-40.0) % [place] % (Auto) (0.0-10.0) % Eos % (Auto) (0.0-4.0) % Baso % (Auto) (0.0-2.0) % Neut # (1.8-7.0) K/uL Lymph # (1.0-4.3) K/uL [place] # (0.0-0.8) K/uL Eos # (0.0-0.7) K/uL Baso # (0.0-0.2) K/uL Neutrophils % (Manual) (50-75) % Band Neutrophils % (0-2) % Lymphocytes % (Manual) (20-40) % Monocytes % (Manual) (0-10) % Platelet Estimate (NORMAL) RBC Morphology Puncture Site R ra pCO2 28 L (35-45) mm/Hg pO2 122 H (80-100) mm/Hg HCO3 17.8 L (21-28) mmol/L ABG pH 7.35 (7.35-7.45) ABG Total CO2 16.4 L (22-28) mmol/L ABG O2 Saturation 98.9 H (95-98) % ABG Base Excess -9.1 L (-2.0-3.0) mmol/L ABG Hemoglobin 8.1 L (11.7-17.4) g/dL ABG Carboxyhemoglobin 1.5 (0.5-1.5) % POC ABG HHb (Measured) 1.1 (0.0-5.0) % ABG Methemoglobin 2.0 (0.0-3.0) % Philippe Test Pos A-a O2 Difference 342.0 mm/Hg Respiratory Index 2.8 Hgb O2 Saturation 95.5 (95.0-98.0) % Vent Mode Bipap FiO2 70.0 % Inspiratory BiPAP 18 Expiratory BiPAP 8 Sodium 140 (132-148) mmol/L Potassium 4.5 (3.6-5.2) mmol/L Chloride 94 L (98-107) mmol/L Carbon Dioxide 34 H (22-30) mmol/L Anion Gap 17 (10-20) BUN 57 H (9-20) mg/dL Creatinine 1.3 (0.8-1.5) MG/DL Est GFR ( Amer) > 60 Est GFR (Non-Af Amer) 59 POC Glucose (mg/dL) 342 H (65-110) mg/dL Random Glucose 215 H (75-110) mg/dL Calcium 8.9 (8.6-10.4) mg/dl Phosphorus 4.5 (2.5-4.5) mg/dL Magnesium 2.2 (1.6-2.3) mg/dL Total Bilirubin 0.8 (0.2-1.3) mg/dL AST 32 (17-59) U/L ALT 43 (21-72) U/L Alkaline Phosphatase 159 H D (38-126) U/L Total Protein 6.6 (6.3-8.3) g/dL Albumin 3.3 L (3.5-5.0) g/dL Globulin 3.3 (2.2-3.9) gm/dL Albumin/Globulin Ratio 1.0 (1.0-2.1) 10/20/16 10/20/16 Range/Units 16:14 11:35 WBC (4.8-10.8) K/uL RBC (4.40-5.90) Mil/uL Hgb (12.0-18.0) g/dL Hct (35.0-51.0) % MCV (80.0-94.0) fL MCH (27.0-31.0) pg MCHC (33.0-37.0) g/dL RDW (11.5-14.5) % Plt Count (130-400) K/uL MPV (7.2-11.7) fL Neut % (Auto) (50.0-75.0) % Lymph % (Auto) (20.0-40.0) % [place] % (Auto) (0.0-10.0) % Eos % (Auto) (0.0-4.0) % Baso % (Auto) (0.0-2.0) % Neut # (1.8-7.0) K/uL Lymph # (1.0-4.3) K/uL [place] # (0.0-0.8) K/uL Eos # (0.0-0.7) K/uL Baso # (0.0-0.2) K/uL Neutrophils % (Manual) (50-75) % Band Neutrophils % (0-2) % Lymphocytes % (Manual) (20-40) % Monocytes % (Manual) (0-10) % Platelet Estimate (NORMAL) RBC Morphology Puncture Site pCO2 (35-45) mm/Hg pO2 (80-100) mm/Hg HCO3 (21-28) mmol/L ABG pH (7.35-7.45) ABG Total CO2 (22-28) mmol/L ABG O2 Saturation (95-98) % ABG Base Excess (-2.0-3.0) mmol/L ABG Hemoglobin (11.7-17.4) g/dL ABG Carboxyhemoglobin (0.5-1.5) % POC ABG HHb (Measured) (0.0-5.0) % ABG Methemoglobin (0.0-3.0) % Philippe Test A-a O2 Difference mm/Hg Respiratory Index Hgb O2 Saturation (95.0-98.0) % Vent Mode FiO2 % Inspiratory BiPAP Expiratory BiPAP Sodium (132-148) mmol/L Potassium (3.6-5.2) mmol/L Chloride (98-107) mmol/L Carbon Dioxide (22-30) mmol/L Anion Gap (10-20) BUN (9-20) mg/dL Creatinine (0.8-1.5) MG/DL Est GFR ( Amer) Est GFR (Non-Af Amer) POC Glucose (mg/dL) 367 H 277 H (65-110) mg/dL Random Glucose (75-110) mg/dL Calcium (8.6-10.4) mg/dl Phosphorus (2.5-4.5) mg/dL Magnesium (1.6-2.3) mg/dL Total Bilirubin (0.2-1.3) mg/dL AST (17-59) U/L ALT (21-72) U/L Alkaline Phosphatase (38-126) U/L Total Protein (6.3-8.3) g/dL Albumin (3.5-5.0) g/dL Globulin (2.2-3.9) gm/dL Albumin/Globulin Ratio (1.0-2.1) Laboratory Results - last 24 hr 10/20/16 10/20/16 10/20/16 11:35 16:14 20:58 WBC RBC Hgb Hct MCV MCH MCHC RDW Plt Count MPV Neut % (Auto) Lymph % (Auto) [place] % (Auto) Eos % (Auto) Baso % (Auto) Neut # Lymph # [place] # Eos # Baso # Neutrophils % (Manual) Band Neutrophils % Lymphocytes % (Manual) Monocytes % (Manual) Platelet Estimate RBC Morphology Puncture Site pCO2 pO2 HCO3 ABG pH ABG Total CO2 ABG O2 Saturation ABG Base Excess ABG Hemoglobin ABG Carboxyhemoglobin POC ABG HHb (Measured) ABG Methemoglobin Philippe Test A-a O2 Difference Respiratory Index Hgb O2 Saturation Vent Mode FiO2 Inspiratory BiPAP Expiratory BiPAP Sodium Potassium Chloride Carbon Dioxide Anion Gap BUN Creatinine Est GFR ( Amer) Est GFR (Non-Af Amer) POC Glucose (mg/dL) 277 H 367 H 342 H Random Glucose Calcium Phosphorus Magnesium Total Bilirubin AST ALT Alkaline Phosphatase Total Protein Albumin Globulin Albumin/Globulin Ratio 10/21/16 10/21/16 10/21/16 05:23 06:17 06:19 WBC 23.8 H RBC 4.78 Hgb 13.7 Hct 42.1 MCV 88.2 MCH 28.6 MCHC 32.5 L RDW 14.5 Plt Count 240 MPV 10.2 Neut % (Auto) 80.7 H Lymph % (Auto) 7.0 L [place] % (Auto) 11.1 H Eos % (Auto) 0.8 Baso % (Auto) 0.4 Neut # 19.2 H Lymph # 1.7 [place] # 2.6 H Eos # 0.2 Baso # 0.1 Neutrophils % (Manual) 84 H Band Neutrophils % 1 Lymphocytes % (Manual) 5 L Monocytes % (Manual) 10 Platelet Estimate Normal RBC Morphology Normal Puncture Site R ra pCO2 28 L pO2 122 H HCO3 17.8 L ABG pH 7.35 ABG Total CO2 16.4 L ABG O2 Saturation 98.9 H ABG Base Excess -9.1 L ABG Hemoglobin 8.1 L ABG Carboxyhemoglobin 1.5 POC ABG HHb (Measured) 1.1 ABG Methemoglobin 2.0 Philippe Test Pos A-a O2 Difference 342.0 Respiratory Index 2.8 Hgb O2 Saturation 95.5 Vent Mode Bipap FiO2 70.0 Inspiratory BiPAP 18 Expiratory BiPAP 8 Sodium 140 Potassium 4.5 Chloride 94 L Carbon Dioxide 34 H Anion Gap 17 BUN 57 H Creatinine 1.3 Est GFR ( Amer) > 60 Est GFR (Non-Af Amer) 59 POC Glucose (mg/dL) Random Glucose 215 H Calcium 8.9 Phosphorus 4.5 Magnesium 2.2 Total Bilirubin 0.8 AST 32 ALT 43 Alkaline Phosphatase 159 H D Total Protein 6.6 Albumin 3.3 L Globulin 3.3 Albumin/Globulin Ratio 1.0 10/21/16 10/21/16 07:23 11:26 WBC RBC Hgb Hct MCV MCH MCHC RDW Plt Count MPV Neut % (Auto) Lymph % (Auto) [place] % (Auto) Eos % (Auto) Baso % (Auto) Neut # Lymph # [place] # Eos # Baso # Neutrophils % (Manual) Band Neutrophils % Lymphocytes % (Manual) Monocytes % (Manual) Platelet Estimate RBC Morphology Puncture Site pCO2 pO2 HCO3 ABG pH ABG Total CO2 ABG O2 Saturation ABG Base Excess ABG Hemoglobin ABG Carboxyhemoglobin POC ABG HHb (Measured) ABG Methemoglobin Philippe Test A-a O2 Difference Respiratory Index Hgb O2 Saturation Vent Mode FiO2 Inspiratory BiPAP Expiratory BiPAP Sodium Potassium Chloride Carbon Dioxide Anion Gap BUN Creatinine Est GFR ( Amer) Est GFR (Non-Af Amer) POC Glucose (mg/dL) 189 H 239 H Random Glucose Calcium Phosphorus Magnesium Total Bilirubin AST ALT Alkaline Phosphatase Total Protein Albumin Globulin Albumin/Globulin Ratio Fingerstick Blood Sugar Results: 189 Review of Systems - Constitutional Constitutional: absent: Fever, Chills - Cardiovascular Cardiovascular: Dyspnea. absent: Chest Pain, Edema, Leg Edema, Pedal Edema - Respiratory Respiratory: Cough, Dyspnea, Excessive Mucous Production (brown sputum) - Gastrointestinal Gastrointestinal: absent: Abdominal Pain, Constipation, Diarrhea, Nausea, Vomiting - Genitourinary Genitourinary: absent: Dysuria Critical Care Progress Note - Nutrition Nutrition: Nutrition Category Date Time Status Renal Diet [DIET] Diets 10/15/16 Breakfast Active Assessment/Plan (1) ARDS (adult respiratory distress syndrome) Assessment and plan: Patient status: Transferred to ICU for respiratory insufficiency/pulmonary edema Neuro: - AAOX3 CV: - Hx of CHF - ECHO: normal bi-ventricular function, no gross valvular abnormality, no pericardial effusion. LVEF 74.3% - Continue Lasix 40mg - ASA 81mg daily - Crestor 20mg PO HS - ECG(10/14/16): Normal sinus rhythm at 93 bpm; RBBB - Hx of DVT: IVF filter placed; Apixaban 5mg PO BID - Fluid restriction (1,000ml) Pulmonary: - ARDs, continue same medications/treatment - Increased Lasix to 60mg IVP BID - ABG (10/18/16): respiratory acidosis (pH 7.30; pCO2: 59) - ABG 10/20: pH 7.33; pCO2: 62 - ABG 10/21: pH 7.35, pCO2 28 - ABG: f/u in AM - BiPAP on 04/11 at 70; high-flow nasal canula prn FiO2 80, 30L/min - Incentive spirometry - Hx of asthma - Continue Solu-medrol 20mg IVP Daily - Continue Montelukast 10mg PO HS - Continue Duoneb 3ml INH RQ6 prn SOB - Advair 250/50 1 puff IH RQ12 Imaging: - CXR (10/18): Worsening dense diffuse increased airspace opacities throughout both lungs suggestive for worsening edema and or infiltrate now severe; Cardiomegaly. - CXR (10/19): improving bilateral diffuse alveolar opacity; congestive change. - CT chest (10/14): 1. Chronic interstitial pulmonary disease is appreciated with somewhat reticular nodular component increase of the bladder apices slightly. No definitive alveolitis pleural or pericardial effusion. Lack axis appears slightly increased in the bilateral bases. 2. Mediastinal lymphadenopathy appreciated without significant interval change. Bilateral hilar adenopathy remains likely but is poorly evaluated due to lack of intravenous contrast. 3. Incidental cholelithiasis. - CXR (10/14): Cardiomegaly, increased interstitial markings likely interstitial / cardiogenic edema. - CXR (10/20): no significant interval change - CXR (10/21): cardiomegaly; improved CHF; no acute infiltrate or pleural effusion - CXR: f/u in AM - Sputum cx: f/u GI: - No acute issues - Renal Diet, fluid restriction 1000mL Hematology: - No acute issues Endocrine: - Hx of DM - Continue Novolog SC - Continue Levemir 30 units SC Q12 - Monitor daily glucose Renal: - Worsening renal insufficiency - Continue to trend renal functions - Hyperkalemia --> resolved; continue to monitor daily - Nephrology consult- Dr. Rhoades Musculoskeletal: - No acute issues Genitourinary: - No acute issues - UA x2: negative Infectious disease: - ID consult- Dr. Banuelos, help appreciated - Leukocytosis likely /2 to pneumonia - Continue Ceftriaxone 1gm daily - Continue Ofloxacin 0.5 ml AU BID - Azithryomycin 500mg IV daily started 10/19 - Procalcitonin: 0.86 Imaging: - CT facial bones (10/14): 1. Findings are most compatible with acute right mastoiditis and otitis media. No evidence of coalescent mastoiditis. 2. Normal CT scan of the left temporal bone without contrast. Prophylaxis: - DVT prophylaxis: Apixaban 5mg PO BID Patient has IVC filter placed by Dr. Ortega in May 2016 - GI: Pepcid 20mg PO daily - ASA 81mg PO daily Current Visit: Yes Status: Acute <Santino Luu - Last Filed: 10/21/16 16:29> CCU Objective - Vital Signs / Intake & Output Vital Signs (Last 4 hours): Vital Signs Temp Pulse Resp BP Pulse Ox 10/21/16 12:06 84 19 139/71 94 L 10/21/16 12:00 98.3 F 79 22 139/71 94 L Intake and Output (Last 8hrs): Intake & Output 10/21/16 10/21/16 10/21/16 06:59 14:59 22:59 Intake Total 300 420 Output Total 1050 1370 Balance -750 -950 Weight 281 lb Intake: Intake, IV Amount 50 Left Hand 50 Oral 250 420 Output: Urine 1050 1370 Urine, Voided 1050 1370 Other: # Voids Urine, Voided 1 - Medications Active Medications: Active Medications Generic Name Dose Route Start Last Admin Trade Name Freq PRN Reason Stop Dose Admin Albuterol/Ipratropium 3 ml 10/19/16 14:06 10/21/16 13:49 Duoneb 3 Mg/0.5 Mg (3 Ml) Ud INH 3 ml RQ6 ANABELLA Administration Amlodipine Besylate 5 mg 10/21/16 10:00 10/21/16 10:07 Norvasc PO 5 mg DAILY ANABELLA Administration Apixaban 5 mg 10/14/16 18:00 10/21/16 10:02 Eliquis PO 5 mg BID ANABELLA Administration Aspirin 81 mg 10/15/16 10:00 10/21/16 10:02 Aspirin Chewable PO 81 mg DAILY ANABELLA Administration Famotidine 20 mg 10/19/16 10:00 10/21/16 10:02 Pepcid PO 20 mg DAILY ANABELLA Administration Furosemide 60 mg 10/20/16 19:37 10/21/16 10:03 Lasix IVP 60 mg BID ANABELLA Administration Vancomycin HCl 500 mg/ Sodium 100 mls @ 100 mls/hr 10/20/16 16:00 10/20/16 15 :18 Chloride IVPB 100 mls/hr Q24H ANABELLA Administration Azithromycin 500 mg/ Sodium 250 mls @ 250 mls/hr 10/20/16 12:00 10/21/16 12: 08 Chloride IVPB 250 mls/hr Q24H ANABELLA Administration Piperacillin Sod/Tazobactam Sod 2.25 gm in 50 mls @ 100 mls/hr 10/20/16 22:00 10/21/16 06:07 Zosyn 2.25 Gm Iv Premix IVPB 100 mls/hr Q8 ANABELLA Administration Insulin Aspart 0 unit 10/15/16 11:30 10/21/16 12:07 Novolog SC 4 unit ACHS ANABELLA Administration Protocol Insulin Detemir 30 unit 10/19/16 20:36 10/21/16 08:14 Levemir SC 30 unit Q12H ANABELLA Administration Methylprednisolone 20 mg 10/20/16 19:33 10/21/16 10:03 Solu-Medrol IVP 20 mg DAILY ANABELLA Administration Montelukast Sodium 10 mg 10/14/16 22:00 10/20/16 21:23 Singulair PO 10 mg HS ANABELLA Administration Ofloxacin 0.5 ml 10/14/16 18:00 10/21/16 10:03 Floxin 0.3% Otic Soln AU 2 drop BID ANABELLA Administration Rosuvastatin Calcium 20 mg 10/14/16 22:00 10/20/16 21:23 Crestor PO 20 mg HS ANABELLA Administration - Patient Studies Lab Studies: Microbiology Studies 10/19/16 21:30 Urine Culture - Preliminary Urine,Clean Catch Gram Positive Cocci 10/19/16 05:00 Blood Culture - Preliminary Blood-Venous NO GROWTH AFTER 24 HOURS Lab Studies 10/21/16 10/21/16 10/21/16 Range/Units 11:26 07:23 06:19 WBC 23.8 H (4.8-10.8) K/uL RBC 4.78 (4.40-5.90) Mil/uL Hgb 13.7 (12.0-18.0) g/dL Hct 42.1 (35.0-51.0) % MCV 88.2 (80.0-94.0) fL MCH 28.6 (27.0-31.0) pg MCHC 32.5 L (33.0-37.0) g/dL RDW 14.5 (11.5-14.5) % Plt Count 240 (130-400) K/uL MPV 10.2 (7.2-11.7) fL Neut % (Auto) 80.7 H (50.0-75.0) % Lymph % (Auto) 7.0 L (20.0-40.0) % [place] % (Auto) 11.1 H (0.0-10.0) % Eos % (Auto) 0.8 (0.0-4.0) % Baso % (Auto) 0.4 (0.0-2.0) % Neut # 19.2 H (1.8-7.0) K/uL Lymph # 1.7 (1.0-4.3) K/uL [place] # 2.6 H (0.0-0.8) K/uL Eos # 0.2 (0.0-0.7) K/uL Baso # 0.1 (0.0-0.2) K/uL Neutrophils % (Manual) 84 H (50-75) % Band Neutrophils % 1 (0-2) % Lymphocytes % (Manual) 5 L (20-40) % Monocytes % (Manual) 10 (0-10) % Platelet Estimate Normal (NORMAL) RBC Morphology Normal Puncture Site pCO2 (35-45) mm/Hg pO2 (80-100) mm/Hg HCO3 (21-28) mmol/L ABG pH (7.35-7.45) ABG Total CO2 (22-28) mmol/L ABG O2 Saturation (95-98) % ABG Base Excess (-2.0-3.0) mmol/L ABG Hemoglobin (11.7-17.4) g/dL ABG Carboxyhemoglobin (0.5-1.5) % POC ABG HHb (Measured) (0.0-5.0) % ABG Methemoglobin (0.0-3.0) % Philippe Test A-a O2 Difference mm/Hg Respiratory Index Hgb O2 Saturation (95.0-98.0) % Vent Mode FiO2 % Inspiratory BiPAP Expiratory BiPAP Sodium (132-148) mmol/L Potassium (3.6-5.2) mmol/L Chloride (98-107) mmol/L Carbon Dioxide (22-30) mmol/L Anion Gap (10-20) BUN (9-20) mg/dL Creatinine (0.8-1.5) MG/DL Est GFR ( Amer) Est GFR (Non-Af Amer) POC Glucose (mg/dL) 239 H 189 H (65-110) mg/dL Random Glucose (75-110) mg/dL Calcium (8.6-10.4) mg/dl Phosphorus (2.5-4.5) mg/dL Magnesium (1.6-2.3) mg/dL Total Bilirubin (0.2-1.3) mg/dL AST (17-59) U/L ALT (21-72) U/L Alkaline Phosphatase (38-126) U/L Total Protein (6.3-8.3) g/dL Albumin (3.5-5.0) g/dL Globulin (2.2-3.9) gm/dL Albumin/Globulin Ratio (1.0-2.1) 10/21/16 10/21/16 10/20/16 Range/Units 06:17 05:23 20:58 WBC (4.8-10.8) K/uL RBC (4.40-5.90) Mil/uL Hgb (12.0-18.0) g/dL Hct (35.0-51.0) % MCV (80.0-94.0) fL MCH (27.0-31.0) pg MCHC (33.0-37.0) g/dL RDW (11.5-14.5) % Plt Count (130-400) K/uL MPV (7.2-11.7) fL Neut % (Auto) (50.0-75.0) % Lymph % (Auto) (20.0-40.0) % [place] % (Auto) (0.0-10.0) % Eos % (Auto) (0.0-4.0) % Baso % (Auto) (0.0-2.0) % Neut # (1.8-7.0) K/uL Lymph # (1.0-4.3) K/uL [place] # (0.0-0.8) K/uL Eos # (0.0-0.7) K/uL Baso # (0.0-0.2) K/uL Neutrophils % (Manual) (50-75) % Band Neutrophils % (0-2) % Lymphocytes % (Manual) (20-40) % Monocytes % (Manual) (0-10) % Platelet Estimate (NORMAL) RBC Morphology Puncture Site R ra pCO2 28 L (35-45) mm/Hg pO2 122 H (80-100) mm/Hg HCO3 17.8 L (21-28) mmol/L ABG pH 7.35 (7.35-7.45) ABG Total CO2 16.4 L (22-28) mmol/L ABG O2 Saturation 98.9 H (95-98) % ABG Base Excess -9.1 L (-2.0-3.0) mmol/L ABG Hemoglobin 8.1 L (11.7-17.4) g/dL ABG Carboxyhemoglobin 1.5 (0.5-1.5) % POC ABG HHb (Measured) 1.1 (0.0-5.0) % ABG Methemoglobin 2.0 (0.0-3.0) % Philippe Test Pos A-a O2 Difference 342.0 mm/Hg Respiratory Index 2.8 Hgb O2 Saturation 95.5 (95.0-98.0) % Vent Mode Bipap FiO2 70.0 % Inspiratory BiPAP 18 Expiratory BiPAP 8 Sodium 140 (132-148) mmol/L Potassium 4.5 (3.6-5.2) mmol/L Chloride 94 L (98-107) mmol/L Carbon Dioxide 34 H (22-30) mmol/L Anion Gap 17 (10-20) BUN 57 H (9-20) mg/dL Creatinine 1.3 (0.8-1.5) MG/DL Est GFR ( Amer) > 60 Est GFR (Non-Af Amer) 59 POC Glucose (mg/dL) 342 H (65-110) mg/dL Random Glucose 215 H (75-110) mg/dL Calcium 8.9 (8.6-10.4) mg/dl Phosphorus 4.5 (2.5-4.5) mg/dL Magnesium 2.2 (1.6-2.3) mg/dL Total Bilirubin 0.8 (0.2-1.3) mg/dL AST 32 (17-59) U/L ALT 43 (21-72) U/L Alkaline Phosphatase 159 H D (38-126) U/L Total Protein 6.6 (6.3-8.3) g/dL Albumin 3.3 L (3.5-5.0) g/dL Globulin 3.3 (2.2-3.9) gm/dL Albumin/Globulin Ratio 1.0 (1.0-2.1) 10/20/16 10/20/16 Range/Units 16:14 11:35 WBC (4.8-10.8) K/uL RBC (4.40-5.90) Mil/uL Hgb (12.0-18.0) g/dL Hct (35.0-51.0) % MCV (80.0-94.0) fL MCH (27.0-31.0) pg MCHC (33.0-37.0) g/dL RDW (11.5-14.5) % Plt Count (130-400) K/uL MPV (7.2-11.7) fL Neut % (Auto) (50.0-75.0) % Lymph % (Auto) (20.0-40.0) % [place] % (Auto) (0.0-10.0) % Eos % (Auto) (0.0-4.0) % Baso % (Auto) (0.0-2.0) % Neut # (1.8-7.0) K/uL Lymph # (1.0-4.3) K/uL [place] # (0.0-0.8) K/uL Eos # (0.0-0.7) K/uL Baso # (0.0-0.2) K/uL Neutrophils % (Manual) (50-75) % Band Neutrophils % (0-2) % Lymphocytes % (Manual) (20-40) % Monocytes % (Manual) (0-10) % Platelet Estimate (NORMAL) RBC Morphology Puncture Site pCO2 (35-45) mm/Hg pO2 (80-100) mm/Hg HCO3 (21-28) mmol/L ABG pH (7.35-7.45) ABG Total CO2 (22-28) mmol/L ABG O2 Saturation (95-98) % ABG Base Excess (-2.0-3.0) mmol/L ABG Hemoglobin (11.7-17.4) g/dL ABG Carboxyhemoglobin (0.5-1.5) % POC ABG HHb (Measured) (0.0-5.0) % ABG Methemoglobin (0.0-3.0) % Philippe Test A-a O2 Difference mm/Hg Respiratory Index Hgb O2 Saturation (95.0-98.0) % Vent Mode FiO2 % Inspiratory BiPAP Expiratory BiPAP Sodium (132-148) mmol/L Potassium (3.6-5.2) mmol/L Chloride (98-107) mmol/L Carbon Dioxide (22-30) mmol/L Anion Gap (10-20) BUN (9-20) mg/dL Creatinine (0.8-1.5) MG/DL Est GFR ( Amer) Est GFR (Non-Af Amer) POC Glucose (mg/dL) 367 H 277 H (65-110) mg/dL Random Glucose (75-110) mg/dL Calcium (8.6-10.4) mg/dl Phosphorus (2.5-4.5) mg/dL Magnesium (1.6-2.3) mg/dL Total Bilirubin (0.2-1.3) mg/dL AST (17-59) U/L ALT (21-72) U/L Alkaline Phosphatase (38-126) U/L Total Protein (6.3-8.3) g/dL Albumin (3.5-5.0) g/dL Globulin (2.2-3.9) gm/dL Albumin/Globulin Ratio (1.0-2.1) Laboratory Results - last 24 hr 10/20/16 10/20/16 10/20/16 11:35 16:14 20:58 WBC RBC Hgb Hct MCV MCH MCHC RDW Plt Count MPV Neut % (Auto) Lymph % (Auto) [place] % (Auto) Eos % (Auto) Baso % (Auto) Neut # Lymph # [place] # Eos # Baso # Neutrophils % (Manual) Band Neutrophils % Lymphocytes % (Manual) Monocytes % (Manual) Platelet Estimate RBC Morphology Puncture Site pCO2 pO2 HCO3 ABG pH ABG Total CO2 ABG O2 Saturation ABG Base Excess ABG Hemoglobin ABG Carboxyhemoglobin POC ABG HHb (Measured) ABG Methemoglobin Philippe Test A-a O2 Difference Respiratory Index Hgb O2 Saturation Vent Mode FiO2 Inspiratory BiPAP Expiratory BiPAP Sodium Potassium Chloride Carbon Dioxide Anion Gap BUN Creatinine Est GFR ( Amer) Est GFR (Non-Af Amer) POC Glucose (mg/dL) 277 H 367 H 342 H Random Glucose Calcium Phosphorus Magnesium Total Bilirubin AST ALT Alkaline Phosphatase Total Protein Albumin Globulin Albumin/Globulin Ratio 10/21/16 10/21/16 10/21/16 05:23 06:17 06:19 WBC 23.8 H RBC 4.78 Hgb 13.7 Hct 42.1 MCV 88.2 MCH 28.6 MCHC 32.5 L RDW 14.5 Plt Count 240 MPV 10.2 Neut % (Auto) 80.7 H Lymph % (Auto) 7.0 L [place] % (Auto) 11.1 H Eos % (Auto) 0.8 Baso % (Auto) 0.4 Neut # 19.2 H Lymph # 1.7 [place] # 2.6 H Eos # 0.2 Baso # 0.1 Neutrophils % (Manual) 84 H Band Neutrophils % 1 Lymphocytes % (Manual) 5 L Monocytes % (Manual) 10 Platelet Estimate Normal RBC Morphology Normal Puncture Site R ra pCO2 28 L pO2 122 H HCO3 17.8 L ABG pH 7.35 ABG Total CO2 16.4 L ABG O2 Saturation 98.9 H ABG Base Excess -9.1 L ABG Hemoglobin 8.1 L ABG Carboxyhemoglobin 1.5 POC ABG HHb (Measured) 1.1 ABG Methemoglobin 2.0 Philippe Test Pos A-a O2 Difference 342.0 Respiratory Index 2.8 Hgb O2 Saturation 95.5 Vent Mode Bipap FiO2 70.0 Inspiratory BiPAP 18 Expiratory BiPAP 8 Sodium 140 Potassium 4.5 Chloride 94 L Carbon Dioxide 34 H Anion Gap 17 BUN 57 H Creatinine 1.3 Est GFR ( Amer) > 60 Est GFR (Non-Af Amer) 59 POC Glucose (mg/dL) Random Glucose 215 H Calcium 8.9 Phosphorus 4.5 Magnesium 2.2 Total Bilirubin 0.8 AST 32 ALT 43 Alkaline Phosphatase 159 H D Total Protein 6.6 Albumin 3.3 L Globulin 3.3 Albumin/Globulin Ratio 1.0 10/21/16 10/21/16 07:23 11:26 WBC RBC Hgb Hct MCV MCH MCHC RDW Plt Count MPV Neut % (Auto) Lymph % (Auto) [place] % (Auto) Eos % (Auto) Baso % (Auto) Neut # Lymph # [place] # Eos # Baso # Neutrophils % (Manual) Band Neutrophils % Lymphocytes % (Manual) Monocytes % (Manual) Platelet Estimate RBC Morphology Puncture Site pCO2 pO2 HCO3 ABG pH ABG Total CO2 ABG O2 Saturation ABG Base Excess ABG Hemoglobin ABG Carboxyhemoglobin POC ABG HHb (Measured) ABG Methemoglobin Philippe Test A-a O2 Difference Respiratory Index Hgb O2 Saturation Vent Mode FiO2 Inspiratory BiPAP Expiratory BiPAP Sodium Potassium Chloride Carbon Dioxide Anion Gap BUN Creatinine Est GFR ( Amer) Est GFR (Non-Af Amer) POC Glucose (mg/dL) 189 H 239 H Random Glucose Calcium Phosphorus Magnesium Total Bilirubin AST ALT Alkaline Phosphatase Total Protein Albumin Globulin Albumin/Globulin Ratio Critical Care Progress Note - Nutrition Nutrition: Nutrition Category Date Time Status Renal Diet [DIET] Diets 10/15/16 Breakfast Active Attending/Attestation - Attestation I have personally seen and examined this patient.: Yes I have fully participated in the care of the patient.: Yes I have reviewed all pertinent clinical information: Yes Notes (Text): 10/21/16 16:21 I have seen and examined the patient. Medical records, lab studies, and imaging were reviewed by me and a management plan was formulated on multidisciplinary rounds with resident Dr. Oneil. I agree with their above documented assessment and plan. Patient is showing slow improvement in ARDS. Now on high flow oxygen, with improving chest x-ray. Patient is expectorating brown colored phlegm, started on incentive spirometry, duonebs and flutter valve. Underlying etiology is probably pneumonia with negative pressure pulmonary edema. Critical Care Time 35 minutes. Multi-disciplinary rounds were performed with house staff, nursing, speech therapy, respiratory therapy, pharmacy and nutrition with integrated input from the primary team/attending and other consulting services. The documented time is cumulative and includes review of patient data/exams/labs/chart review and examination of the patient on rounds and throughout the day; time is exclusive of any procedures or teaching time. 10/21/16 16:25
--- NOTE | 2016-10-21 17:15 | CP.PCM.CON ---
History of Present Illness - History of Present Illness History of Present Illness: 46 y/o male admitted for worsening renal insufficiency after presenting with right sided otitis externa and pneumonia. 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 Review of Systems - Constitutional Constitutional: As Per HPI - EENT Eyes: absent: As Per HPI, Blind Spots, Blurred Vision, Change in Vision, Decreased Night Vision, Diplopia, Discharge, Dry Eye, Exophthalmos, Floaters, Irritation, Itchy Eyes, Loss of Peripheral Vision, Pain, Photophobia, Requires Corrective Lenses, Sees Flashes, Spots in Vision, Tunnel Vision, Other Visual Disturbances, Loss of Vision, Other Ears: absent: As Per HPI, Decreased Hearing, Ear Discharge, Ear Pain, Tinnitus, Abnormal Hearing, Disequilibrium, Dizziness, Other Nose/Mouth/Throat: absent: As Per HPI, Epistaxis, Nasal Congestion, Nasal Discharge, Nasal Obstruction, Nasal Trauma, Nose Pain, Post Nasal Drip, Sinus Pain, Sinus Pressure, Bleeding Gums, Change in Voice, Dental Pain, Dry Mouth, Dysphagia, Halitosis, Hoarsness, Lip Swelling, Mouth Lesions, Mouth Pain, Odynophagia, Sore Throat, Throat Swelling, Tongue Swelling, Facial Pain, Neck Pain, Neck Mass, Other - Cardiovascular Cardiovascular: As Per HPI - Respiratory Respiratory: As Per HPI - Gastrointestinal Gastrointestinal: absent: As Per HPI, Abdominal Pain, Belching, Bloating, Change in Bowel Habits, Change in Stool Character, Coffee Ground Emesis, Constipation, Cramping, Diarrhea, Dyspepsia, Dysphagia, Early Satiety, Excessive Flatus, Fecal Incontinence, Heartburn, Hematemesis, Hematochezia, Loose Stools, Melena, Nausea, Odynophagia, Temesmus, Vomiting, Other - Genitourinary Genitourinary: absent: As Per HPI, Change in Urinary Stream, Difficulty Urinating, Dysuria, Flank Pain, Hematuria, Pyuria, Nocturia, Urinary Incontinence, Urinary Frequency, Urinary Hesitance, Urinary Urgency, Voiding Freq/Small Amts, Freq UTI, Hx Renal/Bladder Calculi, Hx /Renal Surgery, Bladder Distension, Other - Musculoskeletal Musculoskeletal: absent: As Per HPI, Abnormal Gait, Arthralgias, Atrophy, Back Pain, Deformity, Joint Swelling, Limited Range of Motion, Loss of Height, Muscle Cramps, Muscle Weakness, Myalgias, Neck Pain, Numbness, Radiating Pain into Limb, Stiffness, Tingling, Other - Integumentary Integumentary: absent: As Per HPI, Acne, Alopecia, Bleeding Lesions, Change in Hair, Change in Nails, Change in Pigmentation, Changing Lesions, Dry Skin, Erythema, Furuncle, Hirsutism, Lesions, New Lesions, Non-Healing Lesions, Photosensitivity, Pruritus, Rash, Skin Pain, Skin Ulcer, Sores, Striae, Swelling , Unusual Bruising, Wounds, Jaundice, Other - Neurological Neurological: absent: As Per HPI, Abnormal Gait, Abnormal Hearing, Abnormal Movements, Abnormal Speech, Behavioral Changes, Burning Sensations, Confusion, Convulsions, Disequilibrium, Dizziness, Numbness, Focal Weakness, Frequent Falls , Headaches, Lack of Coordination, Loss of Vision, Memory Loss, Paresthesias, Radicular Pain, Restless Legs, Sensory Deficit, Syncope, Tingling, Tremor, Vertigo, Weakness, Other Visual Disturbances, Other - Psychiatric Psychiatric: absent: As Per HPI, Abnormal Sleep Pattern, Anhedonia, Anxiety, Auditory Hallucinations, Behavioral Changes, Change in Appetite, Change in Libido, Confusion, Depression, Difficulty Concentrating, Hallucinations, Homicidal Ideation, Hopelessness, Irritability, Memory Loss, Mood Swings, Panic Attacks, Paranoia, Suicidal Ideation, Visual Hallucinations, Tactile Hallucinations, Other - Endocrine Endocrine: absent: As Per HPI, Change in Body Appearance, Change in Libido, Cold Intolorance, Deepening of Voice, Excessive Sweating, Fatigue, Flushing, Heat Intolorance, Increase in Ring/Shoe/Hat Size, Palpitations, Polydipsia, Polyphagia, Polyuria, Other - Hematologic/Lymphatic Hematologic: absent: As Per HPI, Easy Bleeding, Easy Bruising, Lymphadenopathy, Other Past Patient History - Infectious Disease Hx of Infectious Diseases: None - Past Medical History & Family History Past Medical History?: Yes - Past Social History Smoking Status: Former Smoker - CARDIAC Hx Congestive Heart Failure: Yes Hx Hypertension: Yes - PULMONARY Hx Asthma: Yes Hx Chronic Obstructive Pulmonary Disease (COPD): Yes Hx Pneumonia: Yes (2016) Other/Comment: CKD/HENRIQUE requiring dialysis - NEUROLOGICAL Hx Neurological Disorder: Yes Other/Comment: c/o headache on admission, spinal tap attempted to remove spinal fluid. becuase of immobility developed DVT. at the time. right leg. - HEENT Hx HEENT Problems: No - RENAL Hx Chronic Kidney Disease: Yes Hx Dialysis: Yes (x2 treatments) - ENDOCRINE/METABOLIC Hx Diabetes Mellitus Type 2: Yes - HEMATOLOGICAL/ONCOLOGICAL Hx Blood Disorders: No - INTEGUMENTARY Hx Dermatological Problems: Yes Hx Cellulitis: Yes - MUSCULOSKELETAL/RHEUMATOLOGICAL Hx Musculoskeletal Disorders: No Hx Falls: No - GASTROINTESTINAL Hx Gastrointestinal Disorders: No - GENITOURINARY/GYNECOLOGICAL Hx Genitourinary Disorders: No - PSYCHIATRIC Hx Substance Use: No - SURGICAL HISTORY Hx Surgeries: Yes Hx Splenectomy: Yes (3 years ago) Hx Vascular Access Device: Yes (HX INGUINAL PERMA CATH) - ANESTHESIA Hx Anesthesia: Yes Hx Anesthesia Reactions: No Hx Malignant Hyperthermia: No Meds Allergies/Adverse Reactions: Allergies Allergy/AdvReac Type Severity Reaction Status Date / Time EGG Allergy Intermediate RASH Verified 10/14/16 08:51 - Medications Medications: Current Medications Albuterol/Ipratropium (Duoneb 3 Mg/0.5 Mg (3 Ml) Ud) 3 ml INH RQ6 [facility] Last Admin: 10/21/16 13:49 Dose: 3 ml Amlodipine Besylate (Norvasc) 5 mg PO DAILY [facility] Last Admin: 10/21/16 10:07 Dose: 5 mg Apixaban (Eliquis) 5 mg PO BID [facility] Last Admin: 10/21/16 10:02 Dose: 5 mg Aspirin (Aspirin Chewable) 81 mg PO DAILY [facility] Last Admin: 10/21/16 10:02 Dose: 81 mg Famotidine (Pepcid) 20 mg PO DAILY [facility] Last Admin: 10/21/16 10:02 Dose: 20 mg Furosemide (Lasix) 60 mg IVP BID [facility] Last Admin: 10/21/16 10:03 Dose: 60 mg Vancomycin HCl 500 mg/ Sodium (Chloride) 100 mls @ 100 mls/hr IVPB Q24H [facility] Last Admin: 10/21/16 16:36 Dose: 100 mls/hr Azithromycin 500 mg/ Sodium (Chloride) 250 mls @ 250 mls/hr IVPB Q24H [facility] Last Admin: 10/21/16 12:08 Dose: 250 mls/hr Piperacillin Sod/Tazobactam Sod (Zosyn 2.25 Gm Iv Premix) 2.25 gm in 50 mls @ 100 mls/hr IVPB Q8 [facility] Last Admin: 10/21/16 14:00 Dose: 100 mls/hr Insulin Aspart (Novolog) 0 unit SC ACHS [facility] PRN Reason: Protocol Last Admin: 10/21/16 16:35 Dose: 8 unit Insulin Detemir (Levemir) 30 unit SC Q12H [facility] Last Admin: 10/21/16 08:14 Dose: 30 unit Methylprednisolone (Solu-Medrol) 20 mg IVP DAILY [facility] Last Admin: 10/21/16 10:03 Dose: 20 mg Montelukast Sodium (Singulair) 10 mg PO [facility] Last Admin: 10/20/16 21:23 Dose: 10 mg Ofloxacin (Floxin 0.3% Otic Soln) 0.5 ml AU BID [facility] Last Admin: 10/21/16 10:03 Dose: 2 drop Rosuvastatin Calcium (Crestor) 20 mg PO [facility] Last Admin: 10/20/16 21:23 Dose: 20 mg Physical Exam - Constitutional Appears: Non-toxic, No Acute Distress, Chronically Ill - Head Exam Head Exam: ATRAUMATIC, NORMAL INSPECTION, NORMOCEPHALIC - Eye Exam Eye Exam: EOMI, PERRL. absent: Scleral icterus - ENT Exam ENT Exam: Mucous Membranes Dry, Normal External Ear Exam - Neck Exam Neck exam: Negative for: Lymphadenopathy, Thyromegaly - Respiratory Exam Respiratory Exam: Decreased Breath Sounds, Prolonged Expiratory Phase, Rhonchi - Cardiovascular Exam Cardiovascular Exam: REGULAR RHYTHM, +S1, +S2 - GI/Abdominal Exam GI & Abdominal Exam: Diminished Bowel Sounds, Soft. absent: Tenderness - Rectal Exam Rectal Exam: Deferred - Exam Exam: NORMAL INSPECTION - Extremities Exam Extremities exam: Negative for: calf tenderness, pedal edema - Back Exam Back exam: absent: CVA tenderness (L), CVA tenderness (R) - Neurological Exam Neurological exam: Alert, CN II-XII Intact, Oriented x3, Reflexes Normal - Psychiatric Exam Psychiatric exam: Normal Mood - Skin Skin Exam: Dry, Intact Results - Vital Signs Recent Vital Signs: Last Vital Signs Temp 98.6 F 10/21/16 16:00 Pulse 80 10/21/16 16:06 Resp 19 10/21/16 16:11 BP 131/54 L 10/21/16 16:06 Pulse Ox 95 10/21/16 16:06 - Labs Result Diagrams: 10/21/16 06:19 10/21/16 06:17 Labs: Laboratory Results - last 24 hr 10/20/16 10/21/16 10/21/16 20:58 05:23 06:17 WBC RBC Hgb Hct MCV MCH MCHC RDW Plt Count MPV Neut % (Auto) Lymph % (Auto) [place] % (Auto) Eos % (Auto) Baso % (Auto) Neut # Lymph # [place] # Eos # Baso # Neutrophils % (Manual) Band Neutrophils % Lymphocytes % (Manual) Monocytes % (Manual) Platelet Estimate RBC Morphology Puncture Site R ra pCO2 28 L pO2 122 H HCO3 17.8 L ABG pH 7.35 ABG Total CO2 16.4 L ABG O2 Saturation 98.9 H ABG Base Excess -9.1 L ABG Hemoglobin 8.1 L ABG Carboxyhemoglobin 1.5 POC ABG HHb (Measured) 1.1 ABG Methemoglobin 2.0 Philippe Test Pos A-a O2 Difference 342.0 Respiratory Index 2.8 Hgb O2 Saturation 95.5 Vent Mode Bipap FiO2 70.0 Inspiratory BiPAP 18 Expiratory BiPAP 8 Sodium 140 Potassium 4.5 Chloride 94 L Carbon Dioxide 34 H Anion Gap 17 BUN 57 H Creatinine 1.3 Est GFR ( Amer) > 60 Est GFR (Non-Af Amer) 59 POC Glucose (mg/dL) 342 H Random Glucose 215 H Calcium 8.9 Phosphorus 4.5 Magnesium 2.2 Total Bilirubin 0.8 AST 32 ALT 43 Alkaline Phosphatase 159 H D Total Protein 6.6 Albumin 3.3 L Globulin 3.3 Albumin/Globulin Ratio 1.0 10/21/16 10/21/16 10/21/16 06:19 07:23 11:26 WBC 23.8 H RBC 4.78 Hgb 13.7 Hct 42.1 MCV 88.2 MCH 28.6 MCHC 32.5 L RDW 14.5 Plt Count 240 MPV 10.2 Neut % (Auto) 80.7 H Lymph % (Auto) 7.0 L [place] % (Auto) 11.1 H Eos % (Auto) 0.8 Baso % (Auto) 0.4 Neut # 19.2 H Lymph # 1.7 [place] # 2.6 H Eos # 0.2 Baso # 0.1 Neutrophils % (Manual) 84 H Band Neutrophils % 1 Lymphocytes % (Manual) 5 L Monocytes % (Manual) 10 Platelet Estimate Normal RBC Morphology Normal Puncture Site pCO2 pO2 HCO3 ABG pH ABG Total CO2 ABG O2 Saturation ABG Base Excess ABG Hemoglobin ABG Carboxyhemoglobin POC ABG HHb (Measured) ABG Methemoglobin Philippe Test A-a O2 Difference Respiratory Index Hgb O2 Saturation Vent Mode FiO2 Inspiratory BiPAP Expiratory BiPAP Sodium Potassium Chloride Carbon Dioxide Anion Gap BUN Creatinine Est GFR ( Amer) Est GFR (Non-Af Amer) POC Glucose (mg/dL) 189 H 239 H Random Glucose Calcium Phosphorus Magnesium Total Bilirubin AST ALT Alkaline Phosphatase Total Protein Albumin Globulin Albumin/Globulin Ratio 10/21/16 16:11 WBC RBC Hgb Hct MCV MCH MCHC RDW Plt Count MPV Neut % (Auto) Lymph % (Auto) [place] % (Auto) Eos % (Auto) Baso % (Auto) Neut # Lymph # [place] # Eos # Baso # Neutrophils % (Manual) Band Neutrophils % Lymphocytes % (Manual) Monocytes % (Manual) Platelet Estimate RBC Morphology Puncture Site pCO2 pO2 HCO3 ABG pH ABG Total CO2 ABG O2 Saturation ABG Base Excess ABG Hemoglobin ABG Carboxyhemoglobin POC ABG HHb (Measured) ABG Methemoglobin Philippe Test A-a O2 Difference Respiratory Index Hgb O2 Saturation Vent Mode FiO2 Inspiratory BiPAP Expiratory BiPAP Sodium Potassium Chloride Carbon Dioxide Anion Gap BUN Creatinine Est GFR ( Amer) Est GFR (Non-Af Amer) POC Glucose (mg/dL) 344 H Random Glucose Calcium Phosphorus Magnesium Total Bilirubin AST ALT Alkaline Phosphatase Total Protein Albumin Globulin Albumin/Globulin Ratio Assessment & Plan (1) ARDS (adult respiratory distress syndrome) Status: Acute (2) Acute kidney injury Status: Acute (3) Asthma exacerbation Status: Acute (4) CHF (congestive heart failure) Status: Acute (5) CKD (chronic kidney disease) Status: Acute (6) Otitis externa of right ear Status: Acute (7) Renal failure Status: Acute - Assessment and Plan (Free Text) Assessment: recurrent pneumonia/ ards in a 46 yo male with morbid obesity/ JOVANI, T2DM and severe COPD with splenectomy r/o mechanical problem- consider swallowing eval as well as CT Sinuses and GI consult r/o fungal infection- bronchopulmonary aspergillosis? r/o occult malignancy given hx and risk factors will order additional serologies , cultures
--- NOTE | 2016-10-21 17:30 | CP.PCM.PN ---
Subjective - Date & Time of Evaluation Date of Evaluation: 10/21/16 Time of Evaluation: 17:28 - Subjective Subjective: off bipap tolerating po no chest pain chronic dyspnea appetite good no headache no rash no fever no arthralgias no insomnia no constipation no visual abnormalities chronic leg swelling on right Objective - Vital Signs/Intake and Output Vital Signs (last 24 hours): Temp Pulse Resp BP Pulse Ox 98.6 F 80 19 131/54 L 95 10/21/16 16:00 10/21/16 16:06 10/21/16 16:11 10/21/16 16:06 10/21/16 16:06 Intake and Output: 10/21/16 10/21/16 06:59 18:59 Intake Total 650 970 Output Total 2100 2070 Balance -1450 -1100 - Medications Medications: Current Medications Albuterol/Ipratropium (Duoneb 3 Mg/0.5 Mg (3 Ml) Ud) 3 ml INH RQ6 [facility] Last Admin: 10/21/16 13:49 Dose: 3 ml Amlodipine Besylate (Norvasc) 5 mg PO DAILY [facility] Last Admin: 10/21/16 10:07 Dose: 5 mg Apixaban (Eliquis) 5 mg PO BID [facility] Last Admin: 10/21/16 10:02 Dose: 5 mg Aspirin (Aspirin Chewable) 81 mg PO DAILY [facility] Last Admin: 10/21/16 10:02 Dose: 81 mg Famotidine (Pepcid) 20 mg PO DAILY [facility] Last Admin: 10/21/16 10:02 Dose: 20 mg Furosemide (Lasix) 60 mg IVP BID [facility] Last Admin: 10/21/16 10:03 Dose: 60 mg Vancomycin HCl 500 mg/ Sodium (Chloride) 100 mls @ 100 mls/hr IVPB Q24H [facility] Last Admin: 10/21/16 16:36 Dose: 100 mls/hr Azithromycin 500 mg/ Sodium (Chloride) 250 mls @ 250 mls/hr IVPB Q24H [facility] Last Admin: 10/21/16 12:08 Dose: 250 mls/hr Piperacillin Sod/Tazobactam Sod (Zosyn 2.25 Gm Iv Premix) 2.25 gm in 50 mls @ 100 mls/hr IVPB Q8 [facility] Last Admin: 10/21/16 14:00 Dose: 100 mls/hr Insulin Aspart (Novolog) 0 unit SC ACHS [facility] PRN Reason: Protocol Last Admin: 10/21/16 16:35 Dose: 8 unit Insulin Detemir (Levemir) 30 unit SC Q12H [facility] Last Admin: 10/21/16 08:14 Dose: 30 unit Methylprednisolone (Solu-Medrol) 20 mg IVP DAILY [facility] Last Admin: 10/21/16 10:03 Dose: 20 mg Montelukast Sodium (Singulair) 10 mg PO [facility] Last Admin: 10/20/16 21:23 Dose: 10 mg Ofloxacin (Floxin 0.3% Otic Soln) 0.5 ml AU BID [facility] Last Admin: 10/21/16 10:03 Dose: 2 drop Rosuvastatin Calcium (Crestor) 20 mg PO [facility] Last Admin: 10/20/16 21:23 Dose: 20 mg - Labs Labs: 10/21/16 06:19 10/21/16 06:17 - Constitutional Appears: Non-toxic - Head Exam Head Exam: absent: ATRAUMATIC - Eye Exam Eye Exam: EOMI, Normal appearance - ENT Exam ENT Exam: Mucous Membranes Moist - Neck Exam Neck Exam: Full ROM. absent: Lymphadenopathy - Respiratory Exam Respiratory Exam: Decreased Breath Sounds. absent: Accessory Muscle Use - Cardiovascular Exam Cardiovascular Exam: REGULAR RHYTHM. absent: Rubs - GI/Abdominal Exam GI & Abdominal Exam: Soft. absent: Tenderness - Extremities Exam Extremities Exam: Pedal Edema - Neurological Exam Neurological Exam: Alert, Altered Assessment and Plan - Assessment and Plan (Free Text) Assessment: diabetic nephropathy hypercoaguable ckd 3 htn chf continue diuresis trend labs
--- NOTE | 2016-10-21 19:34 | CARD ---
APPROVED REPORT EKG Measurement Heart [id number] <Conclusion> Normal sinus rhythm Indeterminate axis Right bundle branch block Abnormal ECG
--- NOTE | 2016-10-21 19:35 | CARD ---
APPROVED REPORT EKG Measurement Heart [id number] [id number] <Conclusion> Normal sinus rhythm Indeterminate axis Right bundle branch block Abnormal ECG
--- NOTE | 2016-10-21 22:15 | CP.PCM.PN ---
Subjective - Date & Time of Evaluation Date of Evaluation: 10/21/16 Time of Evaluation: 22:13 - Subjective Subjective: pt feels much better. His oxygen requirement is somewhat reduced at this time, oxygen saturation is getting better, cough noted, with the thick yellow mucus production noted. No fever. No chest pain. On examination: Vital signs stable. Chest bilateral wheezing and rales noted regular heart sound nontender abdomen edema bilaterally noted Labs reviewed BUN/creatinine is stable. ABG showing improvement in the oxygenation Chest x-ray improvement in the infiltrate noted Assessment and the condition: 46-year-old male with history of diabetes hypertension and hypercholesteremia splenectomy admitted with acute pneumonia, ARDS, worsening renal insufficiency. Improving at this time. Continue the BiPAP oxygen sat monitoring and will follow the patient Objective - Vital Signs/Intake and Output Vital Signs (last 24 hours): Temp Pulse Resp BP Pulse Ox 98.8 F 86 13 126/66 92 L 10/21/16 20:00 10/21/16 20:06 10/21/16 20:06 10/21/16 20:06 10/21/16 20:06 Intake and Output: 10/21/16 10/22/16 18:59 06:59 Intake Total 1150 100 Output Total 2490 1000 Balance -1340 -900 - Medications Medications: Current Medications Albuterol/Ipratropium (Duoneb 3 Mg/0.5 Mg (3 Ml) Ud) 3 ml INH RQ6 [facility] Last Admin: 10/21/16 19:59 Dose: Not Given Amlodipine Besylate (Norvasc) 5 mg PO DAILY [facility] Last Admin: 10/21/16 10:07 Dose: 5 mg Apixaban (Eliquis) 5 mg PO BID [facility] Last Admin: 10/21/16 17:43 Dose: 5 mg Aspirin (Aspirin Chewable) 81 mg PO DAILY [facility] Last Admin: 10/21/16 10:02 Dose: 81 mg Famotidine (Pepcid) 20 mg PO DAILY [facility] Last Admin: 10/21/16 10:02 Dose: 20 mg Furosemide (Lasix) 60 mg IVP BID [facility] Last Admin: 10/21/16 17:45 Dose: 60 mg Vancomycin HCl 500 mg/ Sodium (Chloride) 100 mls @ 100 mls/hr IVPB Q24H [facility] Last Admin: 10/21/16 16:36 Dose: 100 mls/hr Azithromycin 500 mg/ Sodium (Chloride) 250 mls @ 250 mls/hr IVPB Q24H [facility] Last Admin: 10/21/16 12:08 Dose: 250 mls/hr Piperacillin Sod/Tazobactam Sod (Zosyn 2.25 Gm Iv Premix) 2.25 gm in 50 mls @ 100 mls/hr IVPB Q8 [facility] Last Admin: 10/21/16 21:09 Dose: 100 mls/hr Insulin Aspart (Novolog) 0 unit SC ACHS [facility] PRN Reason: Protocol Last Admin: 10/21/16 21:26 Dose: 2 unit Insulin Detemir (Levemir) 30 unit SC Q12H [facility] Last Admin: 10/21/16 21:07 Dose: 30 unit Methylprednisolone (Solu-Medrol) 20 mg IVP DAILY [facility] Last Admin: 10/21/16 10:03 Dose: 20 mg Montelukast Sodium (Singulair) 10 mg PO HS [facility] Last Admin: 10/21/16 21:09 Dose: 10 mg Ofloxacin (Floxin 0.3% Otic Soln) 0.5 ml AU BID [facility] Last Admin: 10/21/16 17:43 Dose: 2 drop Rosuvastatin Calcium (Crestor) 20 mg PO HS [facility] Last Admin: 10/21/16 21:09 Dose: 20 mg - Labs Labs: 10/21/16 06:19 10/21/16 06:17
[2016-10-22] MEDS: Albuterol-Ipratrop 3 mg / 0.5 (3 ml) UD INH SCH ×4 (02:29→19:12)
[2016-10-22 05:58] LABS: ABG ALLEN TEST POS; ARTERIAL BLOOD GAS MODE BiPAP; ARTERIAL BLOOD HGB O2 SAT 94.2 % (95.0-98.0); CARBOXYHEMOGLOBIN 1.9 % (0.5-1.5); DRAW SITE RR; HHB 2.6 % (0.0-5.0); METHEMOGLOBIN 1.4 % (0.0-3.0)
[2016-10-22] MEDS: Piperacill/Tazo 2.25gm in Dex 2.25 GM/50 ML BAG IVPB SCH ×3 (06:06→21:55)
[2016-10-22 06:35] LABS: CHLORIDE 90 mmol/L (98-107); POTASSIUM 4.5 mmol/L (3.6-5.2); SODIUM 138 mmol/L (132-148)
[2016-10-22 06:37] LABS: AST/SGOT 29 U/L (17-59); BILIRUBIN,TOTAL 0.9 mg/dL (0.2-1.3); CARBON DIOXIDE 37 mmol/L (22-30); GFR AFRICAN-AMERICAN > 60
[2016-10-22 06:38] LABS: ALB/GLOB RATIO 0.9 (1.0-2.1); ALKALINE PHOSPHATASE 165 U/L (38-126); ALT/SGPT 51 U/L (21-72); BLOOD UREA NITROGEN 61 mg/dL (9-20); CALCIUM 8.7 mg/dl (8.6-10.4); GLUCOSE,RANDOM 276 mg/dL (75-110); PHOSPHOROUS 4.4 mg/dL (2.5-4.5); TOTAL PROTEIN 6.7 g/dL (6.3-8.3)
[2016-10-22 07:04] LABS: BASO # 0.1 K/uL (0.0-0.2); BASO % 0.3 % (0.0-2.0); EOS # 1.6 K/uL (0.0-0.7); HEMATOCRIT 42.3 % (35.0-51.0); LYMPH # 1.2 K/uL (1.0-4.3); LYMPH % 5.4 % (20.0-40.0); MEAN CELL VOLUME 88.3 fL (80.0-94.0); MEAN CORPUSCULAR HEMOGLOBIN 28.8 pg (27.0-31.0); MEAN CORPUSCULAR HGB CONC 32.7 g/dL (33.0-37.0); MEAN PLATELET VOLUME 10.7 fL (7.2-11.7); MONO # 2.7 K/uL (0.0-0.8); MONO % 12.1 % (0.0-10.0); NRBC % 0.1 % (0.0-2.0); PLATELET COUNT 222 K/uL (130-400); RED CELL DISTRIBUTION WIDTH 14.3 % (11.5-14.5); WHITE BLOOD COUNT 22.5 K/uL (4.8-10.8)
[2016-10-22 07:12] LABS: IMMUNOGLOBULIN A 330.1 mg/dL (70.0-400.0)
--- NOTE | 2016-10-22 08:13 | RAD ---
HISTORY: ARDS COMPARISON: 10/20/2016 FINDINGS: LUNGS: Diffuse confluent airspace opacifications throughout both lungs. Question left pleural effusion. PLEURA: As above. CARDIOVASCULAR: Cardiomegaly. OSSEOUS STRUCTURES: No significant abnormalities. VISUALIZED UPPER ABDOMEN: Normal. OTHER FINDINGS: None. IMPRESSION: Diffuse confluent airspace opacifications throughout both lungs. Question left pleural effusion.
[2016-10-22] MEDS: Insulin Detemir 100 units/ml Vial (Levemir) SC SCH ×2 (08:48→21:55)
[2016-10-22] MEDS: (Novolog) Insulin Aspart, Recombinant 100 u/ml 10 ml vial SC SCH ×4 (08:49→21:48)
[2016-10-22 09:15] LABS: EOSINOPHIL 6 % (0-4); NEUTROPHIL 76 % (50-75); TOTAL CELLS COUNTED 100
[2016-10-22 09:16] LABS: LARGE PLATELETS PRESENT
[2016-10-22] MEDS: MethylPREDNISolone 40 mg Vial IVP SCH (09:40)
[2016-10-22] MEDS: Ofloxacin 0.3% Otic Soln AU SCH ×2 (09:42→17:17)
--- NOTE | 2016-10-22 11:00 | CP.PCM.PN ---
Subjective - Date & Time of Evaluation Date of Evaluation: 10/21/16 Time of Evaluation: 08:30 - Subjective Subjective: Patient seen and evaluated Sitting Denies dyspnea No further cardiac work up recommended at this time Objective - Vital Signs/Intake and Output Vital Signs (last 24 hours): Temp Pulse Resp BP Pulse Ox 97.5 F L 84 13 147/76 94 L 10/22/16 08:00 10/22/16 10:00 10/22/16 10:00 10/22/16 09:41 10/22/16 10:00 Intake and Output: 10/22/16 10/22/16 06:59 18:59 Intake Total 520 170 Output Total 2150 400 Balance -1630 -230 - Medications Medications: Current Medications Albuterol/Ipratropium (Duoneb 3 Mg/0.5 Mg (3 Ml) Ud) 3 ml INH RQ6 [facility] Last Admin: 10/22/16 07:41 Dose: 3 ml Amlodipine Besylate (Norvasc) 5 mg PO DAILY [facility] Last Admin: 10/22/16 09:42 Dose: 5 mg Apixaban (Eliquis) 5 mg PO BID [facility] Last Admin: 10/22/16 09:42 Dose: 5 mg Aspirin (Aspirin Chewable) 81 mg PO DAILY [facility] Last Admin: 10/22/16 09:42 Dose: 81 mg Famotidine (Pepcid) 20 mg PO DAILY [facility] Last Admin: 10/22/16 09:42 Dose: 20 mg Furosemide (Lasix) 60 mg IVP BID [facility] Last Admin: 10/22/16 09:41 Dose: 60 mg Vancomycin HCl 500 mg/ Sodium (Chloride) 100 mls @ 100 mls/hr IVPB Q24H [facility] Last Admin: 10/21/16 16:36 Dose: 100 mls/hr Azithromycin 500 mg/ Sodium (Chloride) 250 mls @ 250 mls/hr IVPB Q24H [facility] Last Admin: 10/21/16 12:08 Dose: 250 mls/hr Piperacillin Sod/Tazobactam Sod (Zosyn 2.25 Gm Iv Premix) 2.25 gm in 50 mls @ 100 mls/hr IVPB Q8 [facility] Last Admin: 10/22/16 06:06 Dose: 100 mls/hr Insulin Aspart (Novolog) 0 unit SC ACHS [facility] PRN Reason: Protocol Last Admin: 10/22/16 08:49 Dose: 4 unit Insulin Detemir (Levemir) 30 unit SC Q12H [facility] Last Admin: 10/22/16 08:48 Dose: 30 unit Methylprednisolone (Solu-Medrol) 20 mg IVP DAILY [facility] Last Admin: 10/22/16 09:40 Dose: 20 mg Montelukast Sodium (Singulair) 10 mg PO HS [facility] Last Admin: 10/21/16 21:09 Dose: 10 mg Ofloxacin (Floxin 0.3% Otic Soln) 0.5 ml AU BID [facility] Last Admin: 10/22/16 09:42 Dose: 1 drop Rosuvastatin Calcium (Crestor) 20 mg PO HS [facility] Last Admin: 10/21/16 21:09 Dose: 20 mg - Labs Labs: 10/22/16 06:19 10/22/16 06:16
--- NOTE | 2016-10-22 11:48 | CP.PCM.PN ---
Subjective - Date & Time of Evaluation Date of Evaluation: 10/22/16 Time of Evaluation: 11:45 - Subjective Subjective: 46-year-old male with history of COPD, bronchial asthma, diabetes, hypertension , DVT on anticoagulation, history of liver cirrhosis, chronic renal insufficiency, presented to the emergency room for right ear pain and shortness of breath for approx. one wek time. Reports increasing dry cough, and associated wheezing not relieved by nebulizer. He is also having chills and low fever. Generalized weakness and fatigue reported. History of diabetes over 10 years without retinopathy History of hypertension over 10 years, controlled with current medications Patient reports history of CKD, stage and etiology unclear to patient. He has required dialysis x 2 treatments for HENRIQUE in setting of new dvt diagnosed at hospital 10/22 Notes reviewed Remains in icu ambulationg around room feels better Continues to require o2 via nc Breathing improved no cp or palp No n/v No urinary complaints ROS 10 point negative other than reported above Objective - Vital Signs/Intake and Output Vital Signs (last 24 hours): Temp Pulse Resp BP Pulse Ox 97.5 F L 84 20 147/76 94 L 10/22/16 08:00 10/22/16 10:00 10/22/16 10:45 10/22/16 09:41 10/22/16 10:00 Intake and Output: 10/22/16 10/22/16 06:59 18:59 Intake Total 520 170 Output Total 2150 400 Balance -1630 -230 - Medications Medications: Current Medications Albuterol/Ipratropium (Duoneb 3 Mg/0.5 Mg (3 Ml) Ud) 3 ml INH RQ6 [facility] Last Admin: 10/22/16 07:41 Dose: 3 ml Amlodipine Besylate (Norvasc) 5 mg PO DAILY [facility] Last Admin: 10/22/16 09:42 Dose: 5 mg Apixaban (Eliquis) 5 mg PO BID [facility] Last Admin: 10/22/16 09:42 Dose: 5 mg Aspirin (Aspirin Chewable) 81 mg PO DAILY [facility] Last Admin: 10/22/16 09:42 Dose: 81 mg Famotidine (Pepcid) 20 mg PO DAILY [facility] Last Admin: 10/22/16 09:42 Dose: 20 mg Furosemide (Lasix) 60 mg IVP BID [facility] Last Admin: 10/22/16 09:41 Dose: 60 mg Vancomycin HCl 500 mg/ Sodium (Chloride) 100 mls @ 100 mls/hr IVPB Q24H [facility] Last Admin: 10/21/16 16:36 Dose: 100 mls/hr Azithromycin 500 mg/ Sodium (Chloride) 250 mls @ 250 mls/hr IVPB Q24H [facility] Last Admin: 10/21/16 12:08 Dose: 250 mls/hr Piperacillin Sod/Tazobactam Sod (Zosyn 2.25 Gm Iv Premix) 2.25 gm in 50 mls @ 100 mls/hr IVPB Q8 [facility] Last Admin: 10/22/16 06:06 Dose: 100 mls/hr Insulin Aspart (Novolog) 0 unit SC ACHS [facility] PRN Reason: Protocol Last Admin: 10/22/16 08:49 Dose: 4 unit Insulin Detemir (Levemir) 30 unit SC Q12H [facility] Last Admin: 10/22/16 08:48 Dose: 30 unit Methylprednisolone (Solu-Medrol) 20 mg IVP DAILY [facility] Last Admin: 10/22/16 09:40 Dose: 20 mg Montelukast Sodium (Singulair) 10 mg PO [facility] Last Admin: 10/21/16 21:09 Dose: 10 mg Ofloxacin (Floxin 0.3% Otic Soln) 0.5 ml AU BID [facility] Last Admin: 10/22/16 09:42 Dose: 1 drop Rosuvastatin Calcium (Crestor) 20 mg PO [facility] Last Admin: 10/21/16 21:09 Dose: 20 mg - Labs Labs: 10/22/16 06:19 10/22/16 06:16 - Constitutional Appears: Well, Non-toxic - Head Exam Head Exam: ATRAUMATIC, NORMAL INSPECTION - Eye Exam Eye Exam: EOMI, Normal appearance - ENT Exam ENT Exam: Mucous Membranes Moist, Normal Oropharynx - Respiratory Exam Respiratory Exam: Rhonchi, NORMAL BREATHING PATTERN. absent: Rales - Cardiovascular Exam Cardiovascular Exam: REGULAR RHYTHM, +S1, +S2. absent: Rubs - GI/Abdominal Exam GI & Abdominal Exam: Distended, Soft, Normal Bowel Sounds - Extremities Exam Extremities Exam: Pedal Edema. absent: Joint Swelling - Neurological Exam Neurological Exam: Alert, Awake, Oriented x3 - Skin Skin Exam: Dry, Intact Assessment and Plan (1) Acute kidney injury Status: Acute (2) CKD (chronic kidney disease) Status: Acute (3) Respiratory acidosis Status: Acute (4) Asthma exacerbation Status: Acute (5) DVT (deep venous thrombosis) Status: Acute (6) Hx of splenectomy Status: Acute (7) Hyperkalemia Status: Acute (8) Diabetes Status: Chronic (9) HTN (hypertension) Status: Chronic - Assessment and Plan (Free Text) Assessment: Renal function stable Responding to current lasix dose Electrolytes acceptable Continue current care Daily labs
[2016-10-22] MEDS ORDERED: Insulin Detemir 100 units/ml Vial (Levemir) SC SCH ×2 (12:15→20:00)
[2016-10-22] MEDS: Azithromycin 500 MG in Sodium Chloride 0.9% 250 ML IVPB SCH (12:32)
--- NOTE | 2016-10-22 16:58 | CP.CCUPN ---
CCU Subjective - Physician Review Events Since Last Encounter (Free Text): 10/22/16 16:57 patient feels well, still hypoxic off of BIPAP. CCU Objective - Vital Signs / Intake & Output Vital Signs (Last 4 hours): Vital Signs Pulse Resp BP Pulse Ox 10/22/16 15:06 86 18 141/76 95 10/22/16 15:00 83 21 94 L 10/22/16 14:06 87 16 135/76 94 L 10/22/16 14:00 87 23 96 10/22/16 13:27 19 10/22/16 13:06 96 H 17 131/92 H 90 L 10/22/16 13:00 96 H 16 93 L Intake and Output (Last 8hrs): Intake & Output 10/22/16 10/22/16 10/22/16 06:59 14:59 22:59 Intake Total 200 570 0 Output Total 750 1101 Balance -550 -531 0 Intake: Intake, IV Amount 350 Left Hand 350 Oral 200 220 0 Output: Urine 750 1100 Urine, Voided 750 1100 Stool 1 - Physical Exam Head: Positive for: Atraumatic, Normocephalic Extroacular Muscles: Positive for: EOMI Conjunctiva: Positive for: Normal Mouth: Positive for: Moist Mucous Membranes Respiratory/Chest: Positive for: Decreased Breath Sounds, Rales (B/L; improved since yesterday), Rhonchi. Negative for: Clear to Auscultation Cardiovascular: Positive for: Regular Rate and Rhythm, Normal S1, S2 Abdomen: Positive for: Normal Bowel Sounds. Negative for: Tenderness Upper Extremity: Positive for: Normal Inspection Lower Extremity: Positive for: Edema. Negative for: CALF TENDERNESS, Tenderness Skin: Positive for: Warm, Dry, Normal Color Psychiatric: Positive for: Alert, Oriented x 3 - Medications Active Medications: Active Medications Generic Name Dose Route Start Last Admin Trade Name Freq PRN Reason Stop Dose Admin Albuterol/Ipratropium 3 ml 10/19/16 14:06 10/22/16 13:25 Duoneb 3 Mg/0.5 Mg (3 Ml) Ud INH 3 ml RQ6 [facility] Administration Amlodipine Besylate 5 mg 10/21/16 10:00 10/22/16 09:42 Norvasc PO 5 mg DAILY [facility] Administration Apixaban 5 mg 10/14/16 18:00 10/22/16 09:42 Eliquis PO 5 mg BID [facility] Administration Aspirin 81 mg 10/15/16 10:00 10/22/16 09:42 Aspirin Chewable PO 81 mg DAILY [facility] Administration Famotidine 20 mg 10/19/16 10:00 10/22/16 09:42 Pepcid PO 20 mg DAILY [facility] Administration Vancomycin HCl 500 mg/ Sodium 100 mls @ 100 mls/hr 10/20/16 16:00 10/22/16 16 :09 Chloride IVPB 100 mls/hr Q24H [facility] Administration Azithromycin 500 mg/ Sodium 250 mls @ 250 mls/hr 10/20/16 12:00 10/22/16 12: 32 Chloride IVPB 250 mls/hr Q24H [facility] Administration Piperacillin Sod/Tazobactam Sod 2.25 gm in 50 mls @ 100 mls/hr 10/20/16 22:00 10/22/16 13:40 Zosyn 2.25 Gm Iv Premix IVPB 100 mls/hr Q8 [facility] Administration Insulin Aspart 0 unit 10/15/16 11:30 10/22/16 12:32 Novolog SC 8 unit ACHS [facility] Administration Protocol Insulin Detemir 40 unit 10/22/16 20:00 Levemir SC Q12H [facility] Methylprednisolone 20 mg 10/20/16 19:33 10/22/16 09:40 Solu-Medrol IVP 20 mg DAILY [facility] Administration Montelukast Sodium 10 mg 10/14/16 22:00 10/21/16 21:09 Singulair PO 10 mg HS [facility] Administration Ofloxacin 0.5 ml 10/14/16 18:00 10/22/16 09:42 Floxin 0.3% Otic Soln AU 1 drop BID [facility] Administration Rosuvastatin Calcium 20 mg 10/14/16 22:00 10/21/16 21:09 Crestor PO 20 mg HS [facility] Administration Voriconazole 300 mg 10/22/16 13:00 10/22/16 14:27 Vfend 200 Mg Tab PO 10/23/16 01:01 300 mg Q12H [facility] Administration Voriconazole 200 mg 10/23/16 10:00 Vfend 200 Mg Tab PO Q12H [facility] - Patient Studies Lab Studies: Microbiology Studies 10/19/16 21:30 Urine Culture - Final Urine,Clean Catch Enterococcus Faecalis 10/19/16 05:00 Blood Culture - Preliminary Blood-Venous NO GROWTH AFTER 48 HOURS 10/21/16 Unknown Gram Stain - Final Sputum Lab Studies 10/22/16 10/22/16 10/22/16 Range/Units 16:15 11:17 08:32 WBC (4.8-10.8) K/uL RBC (4.40-5.90) Mil/uL Hgb (12.0-18.0) g/dL Hct (35.0-51.0) % MCV (80.0-94.0) fL MCH (27.0-31.0) pg MCHC (33.0-37.0) g/dL RDW (11.5-14.5) % Plt Count (130-400) K/uL MPV (7.2-11.7) fL Neut % (Auto) (50.0-75.0) % Lymph % (Auto) (20.0-40.0) % [place] % (Auto) (0.0-10.0) % Eos % (Auto) (0.0-4.0) % Baso % (Auto) (0.0-2.0) % Neut # (1.8-7.0) K/uL Lymph # (1.0-4.3) K/uL [place] # (0.0-0.8) K/uL Eos # (0.0-0.7) K/uL Baso # (0.0-0.2) K/uL Neutrophils % (Manual) (50-75) % Band Neutrophils % (0-2) % Lymphocytes % (Manual) (20-40) % Monocytes % (Manual) (0-10) % Eosinophils % (Manual) (0-4) % Platelet Estimate (NORMAL) Large Platelets Hypochromasia (manual) Poikilocytosis (manual Anisocytosis (manual) Target Cells Puncture Site pCO2 (35-45) mm/Hg pO2 (80-100) mm/Hg HCO3 (21-28) mmol/L ABG pH (7.35-7.45) ABG Total CO2 (22-28) mmol/L ABG O2 Saturation (95-98) % ABG Base Excess (-2.0-3.0) mmol/L ABG Hemoglobin (11.7-17.4) g/dL ABG Carboxyhemoglobin (0.5-1.5) % POC ABG HHb (Measured) (0.0-5.0) % ABG Methemoglobin (0.0-3.0) % Philippe Test A-a O2 Difference mm/Hg Respiratory Index Hgb O2 Saturation (95.0-98.0) % Vent Mode FiO2 % Inspiratory BiPAP Expiratory BiPAP Sodium (132-148) mmol/L Potassium (3.6-5.2) mmol/L Chloride (98-107) mmol/L Carbon Dioxide (22-30) mmol/L Anion Gap (10-20) BUN (9-20) mg/dL Creatinine (0.8-1.5) MG/DL Est GFR ( Amer) Est GFR (Non-Af Amer) POC Glucose (mg/dL) 264 H 315 H 216 H (65-110) mg/dL Random Glucose (75-110) mg/dL Calcium (8.6-10.4) mg/dl Phosphorus (2.5-4.5) mg/dL Magnesium (1.6-2.3) mg/dL Total Bilirubin (0.2-1.3) mg/dL AST (17-59) U/L ALT (21-72) U/L Alkaline Phosphatase (38-126) U/L Total Protein (6.3-8.3) g/dL Albumin (3.5-5.0) g/dL Globulin (2.2-3.9) gm/dL Albumin/Globulin Ratio (1.0-2.1) IgG (700.0-1600.0) mg/dL IgA (70.0-400.0) mg/dL IgM (40.0-230.0) mg/dL Complement C3 (88.0-165.0) mg/dL Complement C4 (14.0-44.0) mg/dL 10/22/16 10/22/16 10/22/16 Range/Units 06:19 06:16 06:16 WBC 22.5 H (4.8-10.8) K/uL RBC 4.80 (4.40-5.90) Mil/uL Hgb 13.8 (12.0-18.0) g/dL Hct 42.3 (35.0-51.0) % MCV 88.3 (80.0-94.0) fL MCH 28.8 (27.0-31.0) pg MCHC 32.7 L (33.0-37.0) g/dL RDW 14.3 (11.5-14.5) % Plt Count 222 (130-400) K/uL MPV 10.7 (7.2-11.7) fL Neut % (Auto) 75.2 H (50.0-75.0) % Lymph % (Auto) 5.4 L (20.0-40.0) % [place] % (Auto) 12.1 H (0.0-10.0) % Eos % (Auto) 7.0 H (0.0-4.0) % Baso % (Auto) 0.3 (0.0-2.0) % Neut # 16.9 H (1.8-7.0) K/uL Lymph # 1.2 (1.0-4.3) K/uL [place] # 2.7 H (0.0-0.8) K/uL Eos # 1.6 H (0.0-0.7) K/uL Baso # 0.1 (0.0-0.2) K/uL Neutrophils % (Manual) 76 H (50-75) % Band Neutrophils % 1 (0-2) % Lymphocytes % (Manual) 6 L (20-40) % Monocytes % (Manual) 11 H (0-10) % Eosinophils % (Manual) 6 H (0-4) % Platelet Estimate Normal (NORMAL) Large Platelets Present Hypochromasia (manual) Slight Poikilocytosis (manual Slight Anisocytosis (manual) Slight Target Cells Slight Puncture Site pCO2 (35-45) mm/Hg pO2 (80-100) mm/Hg HCO3 (21-28) mmol/L ABG pH (7.35-7.45) ABG Total CO2 (22-28) mmol/L ABG O2 Saturation (95-98) % ABG Base Excess (-2.0-3.0) mmol/L ABG Hemoglobin (11.7-17.4) g/dL ABG Carboxyhemoglobin (0.5-1.5) % POC ABG HHb (Measured) (0.0-5.0) % ABG Methemoglobin (0.0-3.0) % Philippe Test A-a O2 Difference mm/Hg Respiratory Index Hgb O2 Saturation (95.0-98.0) % Vent Mode FiO2 % Inspiratory BiPAP Expiratory BiPAP Sodium 138 (132-148) mmol/L Potassium 4.5 (3.6-5.2) mmol/L Chloride 90 L (98-107) mmol/L Carbon Dioxide 37 H (22-30) mmol/L Anion Gap 16 (10-20) BUN 61 H (9-20) mg/dL Creatinine 1.4 (0.8-1.5) MG/DL Est GFR ( Amer) > 60 Est GFR (Non-Af Amer) 54 POC Glucose (mg/dL) (65-110) mg/dL Random Glucose 276 H (75-110) mg/dL Calcium 8.7 (8.6-10.4) mg/dl Phosphorus 4.4 (2.5-4.5) mg/dL Magnesium 2.0 (1.6-2.3) mg/dL Total Bilirubin 0.9 (0.2-1.3) mg/dL AST 29 (17-59) U/L ALT 51 (21-72) U/L Alkaline Phosphatase 165 H (38-126) U/L Total Protein 6.7 (6.3-8.3) g/dL Albumin 3.2 L (3.5-5.0) g/dL Globulin 3.6 (2.2-3.9) gm/dL Albumin/Globulin Ratio 0.9 L (1.0-2.1) IgG 1114.0 (700.0-1600.0) mg/dL IgA 330.1 (70.0-400.0) mg/dL IgM 51.0 (40.0-230.0) mg/dL Complement C3 86.0 L (88.0-165.0) mg/dL Complement C4 14.2 (14.0-44.0) mg/dL 10/22/16 10/22/16 10/21/16 Range/Units 05:20 01:14 21:14 WBC (4.8-10.8) K/uL RBC (4.40-5.90) Mil/uL Hgb (12.0-18.0) g/dL Hct (35.0-51.0) % MCV (80.0-94.0) fL MCH (27.0-31.0) pg MCHC (33.0-37.0) g/dL RDW (11.5-14.5) % Plt Count (130-400) K/uL MPV (7.2-11.7) fL Neut % (Auto) (50.0-75.0) % Lymph % (Auto) (20.0-40.0) % [place] % (Auto) (0.0-10.0) % Eos % (Auto) (0.0-4.0) % Baso % (Auto) (0.0-2.0) % Neut # (1.8-7.0) K/uL Lymph # (1.0-4.3) K/uL [place] # (0.0-0.8) K/uL Eos # (0.0-0.7) K/uL Baso # (0.0-0.2) K/uL Neutrophils % (Manual) (50-75) % Band Neutrophils % (0-2) % Lymphocytes % (Manual) (20-40) % Monocytes % (Manual) (0-10) % Eosinophils % (Manual) (0-4) % Platelet Estimate (NORMAL) Large Platelets Hypochromasia (manual) Poikilocytosis (manual Anisocytosis (manual) Target Cells Puncture Site Rr pCO2 70 H (35-45) mm/Hg pO2 78 L (80-100) mm/Hg HCO3 31.2 H (21-28) mmol/L ABG pH 7.33 L (7.35-7.45) ABG Total CO2 39.0 H (22-28) mmol/L ABG O2 Saturation 97.3 (95-98) % ABG Base Excess 8.2 H (-2.0-3.0) mmol/L ABG Hemoglobin 13.7 (11.7-17.4) g/dL ABG Carboxyhemoglobin 1.9 H (0.5-1.5) % POC ABG HHb (Measured) 2.6 (0.0-5.0) % ABG Methemoglobin 1.4 (0.0-3.0) % Philippe Test Pos A-a O2 Difference 334.0 mm/Hg Respiratory Index 4.3 Hgb O2 Saturation 94.2 L (95.0-98.0) % Vent Mode Bipap FiO2 70.0 % Inspiratory BiPAP 18 Expiratory BiPAP 8 Sodium (132-148) mmol/L Potassium (3.6-5.2) mmol/L Chloride (98-107) mmol/L Carbon Dioxide (22-30) mmol/L Anion Gap (10-20) BUN (9-20) mg/dL Creatinine (0.8-1.5) MG/DL Est GFR ( Amer) Est GFR (Non-Af Amer) POC Glucose (mg/dL) 215 H 305 H (65-110) mg/dL Random Glucose (75-110) mg/dL Calcium (8.6-10.4) mg/dl Phosphorus (2.5-4.5) mg/dL Magnesium (1.6-2.3) mg/dL Total Bilirubin (0.2-1.3) mg/dL AST (17-59) U/L ALT (21-72) U/L Alkaline Phosphatase (38-126) U/L Total Protein (6.3-8.3) g/dL Albumin (3.5-5.0) g/dL Globulin (2.2-3.9) gm/dL Albumin/Globulin Ratio (1.0-2.1) IgG (700.0-1600.0) mg/dL IgA (70.0-400.0) mg/dL IgM (40.0-230.0) mg/dL Complement C3 (88.0-165.0) mg/dL Complement C4 (14.0-44.0) mg/dL Laboratory Results - last 24 hr 10/21/16 10/22/16 10/22/16 21:14 01:14 05:20 WBC RBC Hgb Hct MCV MCH MCHC RDW Plt Count MPV Neut % (Auto) Lymph % (Auto) [place] % (Auto) Eos % (Auto) Baso % (Auto) Neut # Lymph # [place] # Eos # Baso # Neutrophils % (Manual) Band Neutrophils % Lymphocytes % (Manual) Monocytes % (Manual) Eosinophils % (Manual) Platelet Estimate Large Platelets Hypochromasia (manual) Poikilocytosis (manual Anisocytosis (manual) Target Cells Puncture Site Rr pCO2 70 H pO2 78 L HCO3 31.2 H ABG pH 7.33 L ABG Total CO2 39.0 H ABG O2 Saturation 97.3 ABG Base Excess 8.2 H ABG Hemoglobin 13.7 ABG Carboxyhemoglobin 1.9 H POC ABG HHb (Measured) 2.6 ABG Methemoglobin 1.4 Philippe Test Pos A-a O2 Difference 334.0 Respiratory Index 4.3 Hgb O2 Saturation 94.2 L Vent Mode Bipap FiO2 70.0 Inspiratory BiPAP 18 Expiratory BiPAP 8 Sodium Potassium Chloride Carbon Dioxide Anion Gap BUN Creatinine Est GFR ( Amer) Est GFR (Non-Af Amer) POC Glucose (mg/dL) 305 H 215 H Random Glucose Calcium Phosphorus Magnesium Total Bilirubin AST ALT Alkaline Phosphatase Total Protein Albumin Globulin Albumin/Globulin Ratio IgG IgA IgM Complement C3 Complement C4 10/22/16 10/22/16 10/22/16 06:16 06:16 06:19 WBC 22.5 H RBC 4.80 Hgb 13.8 Hct 42.3 MCV 88.3 MCH 28.8 MCHC 32.7 L RDW 14.3 Plt Count 222 MPV 10.7 Neut % (Auto) 75.2 H Lymph % (Auto) 5.4 L [place] % (Auto) 12.1 H Eos % (Auto) 7.0 H Baso % (Auto) 0.3 Neut # 16.9 H Lymph # 1.2 [place] # 2.7 H Eos # 1.6 H Baso # 0.1 Neutrophils % (Manual) 76 H Band Neutrophils % 1 Lymphocytes % (Manual) 6 L Monocytes % (Manual) 11 H Eosinophils % (Manual) 6 H Platelet Estimate Normal Large Platelets Present Hypochromasia (manual) Slight Poikilocytosis (manual Slight Anisocytosis (manual) Slight Target Cells Slight Puncture Site pCO2 pO2 HCO3 ABG pH ABG Total CO2 ABG O2 Saturation ABG Base Excess ABG Hemoglobin ABG Carboxyhemoglobin POC ABG HHb (Measured) ABG Methemoglobin Philippe Test A-a O2 Difference Respiratory Index Hgb O2 Saturation Vent Mode FiO2 Inspiratory BiPAP Expiratory BiPAP Sodium 138 Potassium 4.5 Chloride 90 L Carbon Dioxide 37 H Anion Gap 16 BUN 61 H Creatinine 1.4 Est GFR ( Amer) > 60 Est GFR (Non-Af Amer) 54 POC Glucose (mg/dL) Random Glucose 276 H Calcium 8.7 Phosphorus 4.4 Magnesium 2.0 Total Bilirubin 0.9 AST 29 ALT 51 Alkaline Phosphatase 165 H Total Protein 6.7 Albumin 3.2 L Globulin 3.6 Albumin/Globulin Ratio 0.9 L IgG 1114.0 IgA 330.1 IgM 51.0 Complement C3 86.0 L Complement C4 14.2 10/22/16 10/22/16 10/22/16 08:32 11:17 16:15 WBC RBC Hgb Hct MCV MCH MCHC RDW Plt Count MPV Neut % (Auto) Lymph % (Auto) [place] % (Auto) Eos % (Auto) Baso % (Auto) Neut # Lymph # [place] # Eos # Baso # Neutrophils % (Manual) Band Neutrophils % Lymphocytes % (Manual) Monocytes % (Manual) Eosinophils % (Manual) Platelet Estimate Large Platelets Hypochromasia (manual) Poikilocytosis (manual Anisocytosis (manual) Target Cells Puncture Site pCO2 pO2 HCO3 ABG pH ABG Total CO2 ABG O2 Saturation ABG Base Excess ABG Hemoglobin ABG Carboxyhemoglobin POC ABG HHb (Measured) ABG Methemoglobin Philippe Test A-a O2 Difference Respiratory Index Hgb O2 Saturation Vent Mode FiO2 Inspiratory BiPAP Expiratory BiPAP Sodium Potassium Chloride Carbon Dioxide Anion Gap BUN Creatinine Est GFR ( Amer) Est GFR (Non-Af Amer) POC Glucose (mg/dL) 216 H 315 H 264 H Random Glucose Calcium Phosphorus Magnesium Total Bilirubin AST ALT Alkaline Phosphatase Total Protein Albumin Globulin Albumin/Globulin Ratio IgG IgA IgM Complement C3 Complement C4 Fingerstick Blood Sugar Results: 216 Review of Systems - Review of Systems All systems: reviewed and no additional remarkable complaints except - Respiratory Respiratory: Cough Critical Care Progress Note - Nutrition Nutrition: Nutrition Category Date Time Status Renal Diet [DIET] Diets 10/15/16 Breakfast Active Assessment/Plan (1) ARDS (adult respiratory distress syndrome) Assessment and plan: 46yo M. PMHx COPD, bronchial asthma, diabetes, hypertension, DVT on anticoagulation, history of liver cirrhosis, chronic renal insufficiency. recurrent respiratory failure secondary to pulmonary edema and pneumonia. Neuro: Alert and oriented 3 Pulm: ARDS slowly improving, chest x-ray has improved from admission but is no longer improving. Have aggressively diuresed patient's with minimal improvement in Chest x-ray appearance and hypoxia. BiPAP at night, high flow oxygen during the day. CV: Hemodynamically stable Hem: History of splenectomy, patient has received Pneumovax this year. History of DVT, continue Eliquis. Renal: Chronic kidney disease, will monitor. Stopping diuretics, patient is well into negative fluid balance. Endo: Glycemia secondary to steroids, Levemir 40 units subcutaneous every 12 and short acting insulin sliding scale for coverage. GI: Renal diet ID: Severe sepsis from pneumonia. Continue Vanco, Zosyn and azithromycin. 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 Started workup for possible immunodeficiencies, as patient has had 2 recurrent severe pneumonias in 2 months. DVT proph - Eliquis GI proph - Pepcid Code status -full code Critical Care Time spent 35 minutes Multi-disciplinary rounds were performed with house staff, nursing, speech therapy, respiratory therapy, pharmacy and nutrition with integrated input from the primary team/attending and other consulting services. The documented time is cumulative and includes review of patient data/exams/labs/chart review and examination of the patient on rounds and throughout the day; time is exclusive of any procedures or teaching time. Current Visit: Yes Status: Acute
--- NOTE | 2016-10-22 17:55 | CP.PCM.PN ---
Subjective - Date & Time of Evaluation Date of Evaluation: 10/22/16 Time of Evaluation: 17:53 - Subjective Subjective: Patient is awake and responding. He is sitting up comfortably. He is not in any distress at this time. Still good respiratory movements noted. Cough noted, but less mucus production noted. He is using high flow oxygen with the 80% FiO2. Oxygen saturation is still on the low side. With the BiPAP he is doing well. No chest pain or shortness of breath On examination: Vital signs reviewed No neck vein distention noted Chest good air entry bilaterally, no wheezing or rales noted CVS regular heart sound, no murmur noted Abdomen soft, nontender. 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 Patient also has a history of renal insufficiency on dialysis in the past. Currently on multiple medications. ARDS. Improving at this time. Multiple workup is being done to rule out underlying vasculitis. Awaiting results. Will repeat this chest x-ray in the morning labs in the morning continue the high flow oxygen will follow the patient Objective - Vital Signs/Intake and Output Vital Signs (last 24 hours): Temp Pulse Resp BP Pulse Ox 99.2 F 83 19 146/81 91 L 10/22/16 16:00 10/22/16 17:00 10/22/16 17:00 10/22/16 16:06 10/22/16 17:00 Intake and Output: 10/22/16 10/22/16 06:59 18:59 Intake Total 520 670 Output Total 2150 1401 Balance -1630 -731 - Medications Medications: Current Medications Albuterol/Ipratropium (Duoneb 3 Mg/0.5 Mg (3 Ml) Ud) 3 ml INH RQ6 [facility] Last Admin: 10/22/16 13:25 Dose: 3 ml Amlodipine Besylate (Norvasc) 5 mg PO DAILY [facility] Last Admin: 10/22/16 09:42 Dose: 5 mg Apixaban (Eliquis) 5 mg PO BID [facility] Last Admin: 10/22/16 17:17 Dose: 5 mg Aspirin (Aspirin Chewable) 81 mg PO DAILY [facility] Last Admin: 10/22/16 09:42 Dose: 81 mg Famotidine (Pepcid) 20 mg PO DAILY [facility] Last Admin: 10/22/16 09:42 Dose: 20 mg Vancomycin HCl 500 mg/ Sodium (Chloride) 100 mls @ 100 mls/hr IVPB Q24H [facility] Last Admin: 10/22/16 16:09 Dose: 100 mls/hr Azithromycin 500 mg/ Sodium (Chloride) 250 mls @ 250 mls/hr IVPB Q24H [facility] Last Admin: 10/22/16 12:32 Dose: 250 mls/hr Piperacillin Sod/Tazobactam Sod (Zosyn 2.25 Gm Iv Premix) 2.25 gm in 50 mls @ 100 mls/hr IVPB Q8 [facility] Last Admin: 10/22/16 13:40 Dose: 100 mls/hr Insulin Aspart (Novolog) 0 unit SC ACHS [facility] PRN Reason: Protocol Last Admin: 10/22/16 17:17 Dose: 6 unit Insulin Detemir (Levemir) 40 unit SC Q12H [facility] Methylprednisolone (Solu-Medrol) 20 mg IVP DAILY [facility] Last Admin: 10/22/16 09:40 Dose: 20 mg Ofloxacin (Floxin 0.3% Otic Soln) 0.5 ml AU BID [facility] Last Admin: 10/22/16 17:17 Dose: 1 drop Rosuvastatin Calcium (Crestor) 20 mg PO HS [facility] Last Admin: 10/21/16 21:09 Dose: 20 mg Voriconazole (Vfend 200 Mg Tab) 300 mg PO Q12H [facility] Stop: 10/23/16 01:01 Last Admin: 10/22/16 14:27 Dose: 300 mg Voriconazole (Vfend 200 Mg Tab) 200 mg PO Q12H [facility] - Labs Labs: 10/22/16 06:19 10/22/16 06:16
[2016-10-22] MEDS: (Novolin 70/30) NPH/Regular 70/30 Units/ml 10 ml vial SC SCH (18:29)
--- NOTE | 2016-10-22 21:47 | CP.PCM.PN ---
Subjective - Date & Time of Evaluation Date of Evaluation: 10/22/16 Time of Evaluation: 15:05 - Subjective Subjective: Patient seen and evaluated Feels better Improved breathing Objective - Vital Signs/Intake and Output Vital Signs (last 24 hours): Temp Pulse Resp BP Pulse Ox 97.8 F 81 20 141/76 93 L 10/22/16 20:00 10/22/16 20:00 10/22/16 20:00 10/22/16 19:06 10/22/16 20:00 Intake and Output: 10/22/16 10/23/16 18:59 06:59 Intake Total 670 120 Output Total 1401 300 Balance -731 -180 - Medications Medications: Current Medications Albuterol/Ipratropium (Duoneb 3 Mg/0.5 Mg (3 Ml) Ud) 3 ml INH RQ6 [facility] Last Admin: 10/22/16 19:12 Dose: 3 ml Amlodipine Besylate (Norvasc) 5 mg PO DAILY [facility] Last Admin: 10/22/16 09:42 Dose: 5 mg Apixaban (Eliquis) 5 mg PO BID [facility] Last Admin: 10/22/16 17:17 Dose: 5 mg Aspirin (Aspirin Chewable) 81 mg PO DAILY [facility] Last Admin: 10/22/16 09:42 Dose: 81 mg Famotidine (Pepcid) 20 mg PO DAILY [facility] Last Admin: 10/22/16 09:42 Dose: 20 mg Vancomycin HCl 500 mg/ Sodium (Chloride) 100 mls @ 100 mls/hr IVPB Q24H [facility] Last Admin: 10/22/16 16:09 Dose: 100 mls/hr Azithromycin 500 mg/ Sodium (Chloride) 250 mls @ 250 mls/hr IVPB Q24H [facility] Last Admin: 10/22/16 12:32 Dose: 250 mls/hr Piperacillin Sod/Tazobactam Sod (Zosyn 2.25 Gm Iv Premix) 2.25 gm in 50 mls @ 100 mls/hr IVPB Q8 [facility] Last Admin: 10/22/16 13:40 Dose: 100 mls/hr Insulin Aspart (Novolog) 0 unit SC ACHS [facility] PRN Reason: Protocol Last Admin: 10/22/16 17:17 Dose: 6 unit Insulin Detemir (Levemir) 50 unit SC [facility] Insulin Human Isoph/Insulin Regular (Novolin 70/30 (70/30 Units/Ml) 10 Ml) 20 units SC [facility] Last Admin: 10/22/16 18:29 Dose: 20 units Methylprednisolone (Solu-Medrol) 40 mg IVP DAILY [facility] Ofloxacin (Floxin 0.3% Otic Soln) 0.5 ml AU BID [facility] Last Admin: 10/22/16 17:17 Dose: 1 drop Rosuvastatin Calcium (Crestor) 20 mg PO HS [facility] Last Admin: 10/21/16 21:09 Dose: 20 mg Voriconazole (Vfend 200 Mg Tab) 300 mg PO Q12H [facility] Stop: 10/23/16 01:01 Last Admin: 10/22/16 14:27 Dose: 300 mg Voriconazole (Vfend 200 Mg Tab) 200 mg PO Q12H [facility] - Labs Labs: 10/22/16 06:19 10/22/16 06:16
[2016-10-23] MEDS: Albuterol-Ipratrop 3 mg / 0.5 (3 ml) UD INH SCH ×4 (02:10→19:45)
[2016-10-23] MEDS: Piperacill/Tazo 2.25gm in Dex 2.25 GM/50 ML BAG IVPB SCH ×3 (06:00→22:54)
[2016-10-23 06:40] LABS: BASO % 0.1 % (0.0-2.0); EOS % 4.2 % (0.0-4.0); HEMATOCRIT 42.2 % (35.0-51.0); LYMPH # 1.7 K/uL (1.0-4.3); LYMPH % 7.6 % (20.0-40.0); MEAN CELL VOLUME 89.2 fL (80.0-94.0); MEAN CORPUSCULAR HEMOGLOBIN 28.6 pg (27.0-31.0); MEAN CORPUSCULAR HGB CONC 32.1 g/dL (33.0-37.0); MEAN PLATELET VOLUME 11.2 fL (7.2-11.7); MONO # 2.5 K/uL (0.0-0.8); MONO % 10.8 % (0.0-10.0); PLATELET COUNT 208 K/uL (130-400); RED CELL DISTRIBUTION WIDTH 14.2 % (11.5-14.5); WHITE BLOOD COUNT 22.8 K/uL (4.8-10.8)
[2016-10-23 06:46] LABS: POTASSIUM 4.5 mmol/L (3.6-5.2)
[2016-10-23 06:49] LABS: ALB/GLOB RATIO 0.9 (1.0-2.1); BILIRUBIN,TOTAL 0.7 mg/dL (0.2-1.3); TOTAL PROTEIN 6.4 g/dL (6.3-8.3)
[2016-10-23 06:50] LABS: CALCIUM 8.5 mg/dl (8.6-10.4)
[2016-10-23] MEDS: (Novolog) Insulin Aspart, Recombinant 100 u/ml 10 ml vial SC SCH ×4 (07:45→22:53)
[2016-10-23] MEDS: (Novolin 70/30) NPH/Regular 70/30 Units/ml 10 ml vial SC SCH ×2 (07:45→17:22)
[2016-10-23 08:38] LABS: TOTAL CELLS COUNTED 100
[2016-10-23 08:39] LABS: EOSINOPHIL 4 % (0-4); NEUTROPHIL 76 % (50-75)
[2016-10-23 08:40] LABS: LARGE PLATELETS PRESENT
[2016-10-23 08:48] LABS: ERYTHROCYTE SEDIMENTATION RATE 43 mm/hr (0-15)
[2016-10-23] MEDS: Ofloxacin 0.3% Otic Soln AU SCH ×2 (09:00→17:25)
[2016-10-23 11:29] LABS: ABG ALLEN TEST PO; ARTERIAL BLOOD HGB O2 SAT 96.1 % (95.0-98.0); CARBOXYHEMOGLOBIN 1.8 % (0.5-1.5); DRAW SITE RRA; METHEMOGLOBIN 1.1 % (0.0-3.0)
[2016-10-23] MEDS: MethylPREDNISolone 40 mg Vial IVP SCH (11:30)
[2016-10-23] MEDS: Azithromycin 500 MG in Sodium Chloride 0.9% 250 ML IVPB SCH (11:44)
--- NOTE | 2016-10-23 13:08 | RAD ---
Chest x-ray single frontal History: Acute respiratory distress syndrome. Comparison: 10/22/2016 Findings: Prominent diffuse confluent increased consolidative markings throughout both lung capps, not significantly changed since the prior study. Cardiomegaly. Impression: No significant interval change.
--- NOTE | 2016-10-23 13:39 | CP.PCM.PN ---
Subjective - Date & Time of Evaluation Date of Evaluation: 10/23/16 Time of Evaluation: 08:00 - Subjective Subjective: feeling better still requiring hi conc of O2 afeb on zyvox/ zosyn and vfend for ARDS urine c/s noted- likley a contaminant Objective - Vital Signs/Intake and Output Vital Signs (last 24 hours): Temp Pulse Resp BP Pulse Ox 98.4 F 83 21 121/69 94 L 10/23/16 04:00 10/23/16 12:06 10/23/16 13:22 10/23/16 12:06 10/23/16 12:06 Intake and Output: 10/23/16 10/23/16 06:59 18:59 Intake Total 690 1150 Output Total 1700 1200 Balance -1010 -50 - Medications Medications: Current Medications Albuterol/Ipratropium (Duoneb 3 Mg/0.5 Mg (3 Ml) Ud) 3 ml INH RQ6 [facility] Last Admin: 10/23/16 13:21 Dose: 3 ml Amlodipine Besylate (Norvasc) 5 mg PO DAILY [facility] Last Admin: 10/23/16 09:01 Dose: 5 mg Apixaban (Eliquis) 5 mg PO BID [facility] Last Admin: 10/23/16 09:01 Dose: 5 mg Aspirin (Aspirin Chewable) 81 mg PO DAILY [facility] Last Admin: 10/23/16 09:01 Dose: 81 mg Famotidine (Pepcid) 20 mg PO DAILY [facility] Last Admin: 10/23/16 09:01 Dose: 20 mg Azithromycin 500 mg/ Sodium (Chloride) 250 mls @ 250 mls/hr IVPB Q24H [facility] Last Admin: 10/23/16 11:44 Dose: 250 mls/hr Piperacillin Sod/Tazobactam Sod (Zosyn 2.25 Gm Iv Premix) 2.25 gm in 50 mls @ 100 mls/hr IVPB Q8 [facility] Last Admin: 10/23/16 06:00 Dose: 100 mls/hr Insulin Aspart (Novolog) 0 unit SC ACHS [facility] PRN Reason: Protocol Last Admin: 10/23/16 11:36 Dose: 6 unit Insulin Detemir (Levemir) 50 unit SC HS [facility] Last Admin: 10/22/16 21:55 Dose: 50 unit Insulin Human Isoph/Insulin Regular (Novolin 70/30 (70/30 Units/Ml) 10 Ml) 20 units SC BIDAC [facility] Last Admin: 10/23/16 07:45 Dose: 20 units Linezolid (Zyvox) 600 mg PO BID [facility] Methylprednisolone (Solu-Medrol) 40 mg IVP DAILY [facility] Last Admin: 10/23/16 11:30 Dose: 40 mg Ofloxacin (Floxin 0.3% Otic Soln) 0.5 ml AU BID [facility] Last Admin: 10/23/16 09:00 Dose: 1 drop Rosuvastatin Calcium (Crestor) 20 mg PO HS [facility] Last Admin: 10/22/16 21:55 Dose: 20 mg Voriconazole (Vfend 200 Mg Tab) 200 mg PO Q12H [facility] Last Admin: 10/23/16 09:01 Dose: 200 mg - Labs Labs: 10/23/16 06:31 10/23/16 06:31 - Constitutional Appears: Non-toxic, Chronically Ill - Head Exam Head Exam: NORMOCEPHALIC - Eye Exam Eye Exam: PERRL. absent: Scleral icterus - ENT Exam ENT Exam: Mucous Membranes Dry - Neck Exam Neck Exam: absent: Lymphadenopathy - Respiratory Exam Respiratory Exam: Decreased Breath Sounds - Cardiovascular Exam Cardiovascular Exam: REGULAR RHYTHM - GI/Abdominal Exam GI & Abdominal Exam: Distended, Soft. absent: Tenderness - Rectal Exam Rectal Exam: Deferred - Exam Exam: NORMAL INSPECTION - Extremities Exam Extremities Exam: absent: Calf Tenderness, Pedal Edema - Back Exam Back Exam: absent: CVA tenderness (L), CVA tenderness (R) - Neurological Exam Neurological Exam: Alert, Awake, Oriented x3 Assessment and Plan (1) ARDS (adult respiratory distress syndrome) Status: Acute (2) Acute kidney injury Status: Acute (3) Asthma exacerbation Status: Acute (4) CHF (congestive heart failure) Status: Acute (5) CKD (chronic kidney disease) Status: Acute (6) Otitis externa of right ear Status: Acute (7) Renal failure Status: Acute - Assessment and Plan (Free Text) Assessment: 46 yo male with hx copd admitted with recurrent sepsis/ ards broad spectrum antibiotics and antifungals in progress remains on high FiO2 but clinically improving cont same rx for now
--- NOTE | 2016-10-23 16:46 | CP.PCM.PN ---
Subjective - Date & Time of Evaluation Date of Evaluation: 10/23/16 Time of Evaluation: 16:46 - Subjective Subjective: is currently doing well. Oxygen requirement is improving 3 [place]. Able to stand up and walk. Objective - Vital Signs/Intake and Output Vital Signs (last 24 hours): Temp Pulse Resp BP Pulse Ox 98.4 F 83 21 121/69 94 L 10/23/16 04:00 10/23/16 12:06 10/23/16 13:22 10/23/16 12:06 10/23/16 12:06 Intake and Output: 10/23/16 10/23/16 06:59 18:59 Intake Total 690 1150 Output Total 1700 1200 Balance -1010 -50 - Medications Medications: Current Medications Albuterol/Ipratropium (Duoneb 3 Mg/0.5 Mg (3 Ml) Ud) 3 ml INH RQ6 [facility] Last Admin: 10/23/16 13:21 Dose: 3 ml Amlodipine Besylate (Norvasc) 5 mg PO DAILY [facility] Last Admin: 10/23/16 09:01 Dose: 5 mg Apixaban (Eliquis) 5 mg PO BID [facility] Last Admin: 10/23/16 09:01 Dose: 5 mg Aspirin (Aspirin Chewable) 81 mg PO DAILY [facility] Last Admin: 10/23/16 09:01 Dose: 81 mg Famotidine (Pepcid) 20 mg PO DAILY [facility] Last Admin: 10/23/16 09:01 Dose: 20 mg Azithromycin 500 mg/ Sodium (Chloride) 250 mls @ 250 mls/hr IVPB Q24H [facility] Last Admin: 10/23/16 11:44 Dose: 250 mls/hr Piperacillin Sod/Tazobactam Sod (Zosyn 2.25 Gm Iv Premix) 2.25 gm in 50 mls @ 100 mls/hr IVPB Q8 [facility] Last Admin: 10/23/16 13:48 Dose: 100 mls/hr Insulin Aspart (Novolog) 0 unit SC ACHS [facility] PRN Reason: Protocol Last Admin: 10/23/16 11:36 Dose: 6 unit Insulin Detemir (Levemir) 50 unit SC HS [facility] Last Admin: 10/22/16 21:55 Dose: 50 unit Insulin Human Isoph/Insulin Regular (Novolin 70/30 (70/30 Units/Ml) 10 Ml) 20 units SC BIDAC [facility] Last Admin: 10/23/16 07:45 Dose: 20 units Linezolid (Zyvox) 600 mg PO BID [facility] Last Admin: 10/23/16 13:48 Dose: 600 mg Methylprednisolone (Solu-Medrol) 40 mg IVP DAILY [facility] Last Admin: 10/23/16 11:30 Dose: 40 mg Ofloxacin (Floxin 0.3% Otic Soln) 0.5 ml AU BID [facility] Last Admin: 10/23/16 09:00 Dose: 1 drop Rosuvastatin Calcium (Crestor) 20 mg PO HS [facility] Last Admin: 10/22/16 21:55 Dose: 20 mg Voriconazole (Vfend 200 Mg Tab) 200 mg PO Q12H [facility] Last Admin: 10/23/16 09:01 Dose: 200 mg - Labs Labs: 10/23/16 06:31 10/23/16 06:31
--- NOTE | 2016-10-23 16:49 | CP.CCUPN ---
CCU Subjective - Physician Review Events Since Last Encounter (Free Text): 10/23/16 16:46 patient is clinically stable, no complaints. CCU Objective - Vital Signs / Intake & Output Vital Signs (Last 4 hours): Vital Signs Resp 10/23/16 13:22 21 Intake and Output (Last 8hrs): Intake & Output 10/23/16 10/23/16 10/23/16 06:59 14:59 22:59 Intake Total 250 1150 Output Total 1400 1200 Balance -1150 -50 Weight 279 lb 280 lb Intake: Intake, IV Amount 50 250 Left Hand 50 250 Oral 200 900 Output: Urine 1400 1200 Urine, Voided 1400 1200 Stool 0 - Physical Exam Head: Positive for: Atraumatic, Normocephalic Extroacular Muscles: Positive for: EOMI Conjunctiva: Positive for: Normal Mouth: Positive for: Moist Mucous Membranes Respiratory/Chest: Positive for: Decreased Breath Sounds, Rales (B/L; improved since yesterday), Rhonchi. Negative for: Clear to Auscultation Cardiovascular: Positive for: Regular Rate and Rhythm, Normal S1, S2 Abdomen: Positive for: Normal Bowel Sounds. Negative for: Tenderness Upper Extremity: Positive for: Normal Inspection Lower Extremity: Positive for: Edema. Negative for: CALF TENDERNESS, Tenderness Skin: Positive for: Warm, Dry, Normal Color Psychiatric: Positive for: Alert, Oriented x 3 - Medications Active Medications: Active Medications Generic Name Dose Route Start Last Admin Trade Name Freq PRN Reason Stop Dose Admin Albuterol/Ipratropium 3 ml 10/19/16 14:06 10/23/16 13:21 Duoneb 3 Mg/0.5 Mg (3 Ml) Ud INH 3 ml RQ6 ANABELLA Administration Amlodipine Besylate 5 mg 10/21/16 10:00 10/23/16 09:01 Norvasc PO 5 mg DAILY ANABELLA Administration Apixaban 5 mg 10/14/16 18:00 10/23/16 09:01 Eliquis PO 5 mg BID ANABELLA Administration Aspirin 81 mg 10/15/16 10:00 10/23/16 09:01 Aspirin Chewable PO 81 mg DAILY ANABELLA Administration Famotidine 20 mg 10/19/16 10:00 10/23/16 09:01 Pepcid PO 20 mg DAILY ANABELLA Administration Azithromycin 500 mg/ Sodium 250 mls @ 250 mls/hr 10/20/16 12:00 10/23/16 11: 44 Chloride IVPB 250 mls/hr Q24H ANABELLA Administration Piperacillin Sod/Tazobactam Sod 2.25 gm in 50 mls @ 100 mls/hr 10/20/16 22:00 10/23/16 13:48 Zosyn 2.25 Gm Iv Premix IVPB 100 mls/hr Q8 ANABELLA Administration Insulin Aspart 0 unit 10/15/16 11:30 10/23/16 11:36 Novolog SC 6 unit ACHS ANABELLA Administration Protocol Insulin Detemir 50 unit 10/22/16 22:00 10/22/16 21:55 Levemir SC 50 unit HS ANABELLA Administration Insulin Human Isoph/Insulin Regular 20 units 10/22/16 18:00 10/23/16 07:45 Novolin 70/30 (70/30 Units/Ml) 10 Ml SC 20 units BIDAC ANABELLA Administration Linezolid 600 mg 10/23/16 12:00 10/23/16 13:48 Zyvox PO 600 mg BID ANABELLA Administration Methylprednisolone 40 mg 10/23/16 10:00 10/23/16 11:30 Solu-Medrol IVP 40 mg DAILY ANABELLA Administration Ofloxacin 0.5 ml 10/14/16 18:00 10/23/16 09:00 Floxin 0.3% Otic Soln AU 1 drop BID ANABELLA Administration Rosuvastatin Calcium 20 mg 10/14/16 22:00 10/22/16 21:55 Crestor PO 20 mg HS ANABELLA Administration Voriconazole 200 mg 10/23/16 10:00 10/23/16 09:01 Vfend 200 Mg Tab PO 200 mg Q12H ANABELLA Administration - Patient Studies Lab Studies: Microbiology Studies 10/21/16 Unknown Gram Stain - Final Sputum Sputum Culture - Preliminary Gram Negative Boy 10/19/16 05:00 Blood Culture - Preliminary Blood-Venous NO GROWTH AFTER 3 DAYS Lab Studies 10/23/16 10/23/16 10/23/16 Range/Units 16:02 11:27 11:25 WBC (4.8-10.8) K/uL RBC (4.40-5.90) Mil/uL Hgb (12.0-18.0) g/dL Hct (35.0-51.0) % MCV (80.0-94.0) fL MCH (27.0-31.0) pg MCHC (33.0-37.0) g/dL RDW (11.5-14.5) % Plt Count (130-400) K/uL MPV (7.2-11.7) fL Neut % (Auto) (50.0-75.0) % Lymph % (Auto) (20.0-40.0) % [place] % (Auto) (0.0-10.0) % Eos % (Auto) (0.0-4.0) % Baso % (Auto) (0.0-2.0) % Neut # (1.8-7.0) K/uL Lymph # (1.0-4.3) K/uL [place] # (0.0-0.8) K/uL Eos # (0.0-0.7) K/uL Baso # (0.0-0.2) K/uL Neutrophils % (Manual) (50-75) % Band Neutrophils % (0-2) % Lymphocytes % (Manual) (20-40) % Monocytes % (Manual) (0-10) % Eosinophils % (Manual) (0-4) % Platelet Estimate (NORMAL) Large Platelets Polychromasia Poikilocytosis (manual Anisocytosis (manual) Tear Drop Cells Ovalocytes ESR (0-15) mm/hr Puncture Site Rra pCO2 65 H (35-45) mm/Hg pO2 107 H (80-100) mm/Hg HCO3 27.0 (21-28) mmol/L ABG pH 7.29 L (7.35-7.45) ABG Total CO2 33.3 H (22-28) mmol/L ABG O2 Saturation 99.0 H (95-98) % ABG Base Excess 2.7 (-2.0-3.0) mmol/L ABG Hemoglobin 14.5 (11.7-17.4) g/dL ABG Carboxyhemoglobin 1.8 H (0.5-1.5) % POC ABG HHb (Measured) 1.0 (0.0-5.0) % ABG Methemoglobin 1.1 (0.0-3.0) % Philippe Test Po A-a O2 Difference 311.0 mm/Hg Respiratory Index 2.9 Hgb O2 Saturation 96.1 (95.0-98.0) % FiO2 70.0 % Sodium (132-148) mmol/L Potassium (3.6-5.2) mmol/L Chloride (98-107) mmol/L Carbon Dioxide (22-30) mmol/L Anion Gap (10-20) BUN (9-20) mg/dL Creatinine (0.8-1.5) MG/DL Est GFR ( Amer) Est GFR (Non-Af Amer) POC Glucose (mg/dL) 207 H 268 H (65-110) mg/dL Random Glucose (75-110) mg/dL Calcium (8.6-10.4) mg/dl Total Bilirubin (0.2-1.3) mg/dL AST (17-59) U/L ALT (21-72) U/L Alkaline Phosphatase (38-126) U/L C-React Prot High Sens (1.00-3.00) mg/L Total Protein (6.3-8.3) g/dL Albumin (3.5-5.0) g/dL Globulin (2.2-3.9) gm/dL Albumin/Globulin Ratio (1.0-2.1) 10/23/16 10/23/16 10/23/16 Range/Units 07:25 06:31 06:31 WBC (4.8-10.8) K/uL RBC (4.40-5.90) Mil/uL Hgb (12.0-18.0) g/dL Hct (35.0-51.0) % MCV (80.0-94.0) fL MCH (27.0-31.0) pg MCHC (33.0-37.0) g/dL RDW (11.5-14.5) % Plt Count (130-400) K/uL MPV (7.2-11.7) fL Neut % (Auto) (50.0-75.0) % Lymph % (Auto) (20.0-40.0) % [place] % (Auto) (0.0-10.0) % Eos % (Auto) (0.0-4.0) % Baso % (Auto) (0.0-2.0) % Neut # (1.8-7.0) K/uL Lymph # (1.0-4.3) K/uL [place] # (0.0-0.8) K/uL Eos # (0.0-0.7) K/uL Baso # (0.0-0.2) K/uL Neutrophils % (Manual) (50-75) % Band Neutrophils % (0-2) % Lymphocytes % (Manual) (20-40) % Monocytes % (Manual) (0-10) % Eosinophils % (Manual) (0-4) % Platelet Estimate (NORMAL) Large Platelets Polychromasia Poikilocytosis (manual Anisocytosis (manual) Tear Drop Cells Ovalocytes ESR (0-15) mm/hr Puncture Site pCO2 (35-45) mm/Hg pO2 (80-100) mm/Hg HCO3 (21-28) mmol/L ABG pH (7.35-7.45) ABG Total CO2 (22-28) mmol/L ABG O2 Saturation (95-98) % ABG Base Excess (-2.0-3.0) mmol/L ABG Hemoglobin (11.7-17.4) g/dL ABG Carboxyhemoglobin (0.5-1.5) % POC ABG HHb (Measured) (0.0-5.0) % ABG Methemoglobin (0.0-3.0) % Philippe Test A-a O2 Difference mm/Hg Respiratory Index Hgb O2 Saturation (95.0-98.0) % FiO2 % Sodium 137 (132-148) mmol/L Potassium 4.5 (3.6-5.2) mmol/L Chloride 92 L (98-107) mmol/L Carbon Dioxide 34 H (22-30) mmol/L Anion Gap 16 (10-20) BUN 61 H (9-20) mg/dL Creatinine 1.6 H (0.8-1.5) MG/DL Est GFR ( Amer) 56 Est GFR (Non-Af Amer) 47 POC Glucose (mg/dL) 239 H (65-110) mg/dL Random Glucose 278 H (75-110) mg/dL Calcium 8.5 L (8.6-10.4) mg/dl Total Bilirubin 0.7 (0.2-1.3) mg/dL AST 36 (17-59) U/L ALT 61 (21-72) U/L Alkaline Phosphatase 151 H (38-126) U/L C-React Prot High Sens 9.71 H (1.00-3.00) mg/L Total Protein 6.4 (6.3-8.3) g/dL Albumin 3.0 L (3.5-5.0) g/dL Globulin 3.4 (2.2-3.9) gm/dL Albumin/Globulin Ratio 0.9 L (1.0-2.1) 10/23/16 10/22/16 Range/Units 06:31 21:36 WBC 22.8 H (4.8-10.8) K/uL RBC 4.73 (4.40-5.90) Mil/uL Hgb 13.6 (12.0-18.0) g/dL Hct 42.2 (35.0-51.0) % MCV 89.2 (80.0-94.0) fL MCH 28.6 (27.0-31.0) pg MCHC 32.1 L (33.0-37.0) g/dL RDW 14.2 (11.5-14.5) % Plt Count 208 (130-400) K/uL MPV 11.2 (7.2-11.7) fL Neut % (Auto) 77.3 H (50.0-75.0) % Lymph % (Auto) 7.6 L (20.0-40.0) % [place] % (Auto) 10.8 H (0.0-10.0) % Eos % (Auto) 4.2 H (0.0-4.0) % Baso % (Auto) 0.1 (0.0-2.0) % Neut # 17.6 H (1.8-7.0) K/uL Lymph # 1.7 (1.0-4.3) K/uL [place] # 2.5 H (0.0-0.8) K/uL Eos # 1.0 H (0.0-0.7) K/uL Baso # 0.0 (0.0-0.2) K/uL Neutrophils % (Manual) 76 H (50-75) % Band Neutrophils % 1 (0-2) % Lymphocytes % (Manual) 8 L (20-40) % Monocytes % (Manual) 11 H (0-10) % Eosinophils % (Manual) 4 (0-4) % Platelet Estimate Normal (NORMAL) Large Platelets Present Polychromasia Slight Poikilocytosis (manual Slight Anisocytosis (manual) Slight Tear Drop Cells Slight Ovalocytes Slight ESR 43 H (0-15) mm/hr Puncture Site pCO2 (35-45) mm/Hg pO2 (80-100) mm/Hg HCO3 (21-28) mmol/L ABG pH (7.35-7.45) ABG Total CO2 (22-28) mmol/L ABG O2 Saturation (95-98) % ABG Base Excess (-2.0-3.0) mmol/L ABG Hemoglobin (11.7-17.4) g/dL ABG Carboxyhemoglobin (0.5-1.5) % POC ABG HHb (Measured) (0.0-5.0) % ABG Methemoglobin (0.0-3.0) % Philippe Test A-a O2 Difference mm/Hg Respiratory Index Hgb O2 Saturation (95.0-98.0) % FiO2 % Sodium (132-148) mmol/L Potassium (3.6-5.2) mmol/L Chloride (98-107) mmol/L Carbon Dioxide (22-30) mmol/L Anion Gap (10-20) BUN (9-20) mg/dL Creatinine (0.8-1.5) MG/DL Est GFR ( Amer) Est GFR (Non-Af Amer) POC Glucose (mg/dL) 245 H (65-110) mg/dL Random Glucose (75-110) mg/dL Calcium (8.6-10.4) mg/dl Total Bilirubin (0.2-1.3) mg/dL AST (17-59) U/L ALT (21-72) U/L Alkaline Phosphatase (38-126) U/L C-React Prot High Sens (1.00-3.00) mg/L Total Protein (6.3-8.3) g/dL Albumin (3.5-5.0) g/dL Globulin (2.2-3.9) gm/dL Albumin/Globulin Ratio (1.0-2.1) Laboratory Results - last 24 hr 10/22/16 10/23/16 10/23/16 21:36 06:31 06:31 WBC 22.8 H RBC 4.73 Hgb 13.6 Hct 42.2 MCV 89.2 MCH 28.6 MCHC 32.1 L RDW 14.2 Plt Count 208 MPV 11.2 Neut % (Auto) 77.3 H Lymph % (Auto) 7.6 L [place] % (Auto) 10.8 H Eos % (Auto) 4.2 H Baso % (Auto) 0.1 Neut # 17.6 H Lymph # 1.7 [place] # 2.5 H Eos # 1.0 H Baso # 0.0 Neutrophils % (Manual) 76 H Band Neutrophils % 1 Lymphocytes % (Manual) 8 L Monocytes % (Manual) 11 H Eosinophils % (Manual) 4 Platelet Estimate Normal Large Platelets Present Polychromasia Slight Poikilocytosis (manual Slight Anisocytosis (manual) Slight Tear Drop Cells Slight Ovalocytes Slight ESR 43 H Puncture Site pCO2 pO2 HCO3 ABG pH ABG Total CO2 ABG O2 Saturation ABG Base Excess ABG Hemoglobin ABG Carboxyhemoglobin POC ABG HHb (Measured) ABG Methemoglobin Philippe Test A-a O2 Difference Respiratory Index Hgb O2 Saturation FiO2 Sodium 137 Potassium 4.5 Chloride 92 L Carbon Dioxide 34 H Anion Gap 16 BUN 61 H Creatinine 1.6 H Est GFR ( Amer) 56 Est GFR (Non-Af Amer) 47 POC Glucose (mg/dL) 245 H Random Glucose 278 H Calcium 8.5 L Total Bilirubin 0.7 AST 36 ALT 61 Alkaline Phosphatase 151 H C-React Prot High Sens Total Protein 6.4 Albumin 3.0 L Globulin 3.4 Albumin/Globulin Ratio 0.9 L 10/23/16 10/23/16 10/23/16 06:31 07:25 11:25 WBC RBC Hgb Hct MCV MCH MCHC RDW Plt Count MPV Neut % (Auto) Lymph % (Auto) [place] % (Auto) Eos % (Auto) Baso % (Auto) Neut # Lymph # [place] # Eos # Baso # Neutrophils % (Manual) Band Neutrophils % Lymphocytes % (Manual) Monocytes % (Manual) Eosinophils % (Manual) Platelet Estimate Large Platelets Polychromasia Poikilocytosis (manual Anisocytosis (manual) Tear Drop Cells Ovalocytes ESR Puncture Site Rra pCO2 65 H pO2 107 H HCO3 27.0 ABG pH 7.29 L ABG Total CO2 33.3 H ABG O2 Saturation 99.0 H ABG Base Excess 2.7 ABG Hemoglobin 14.5 ABG Carboxyhemoglobin 1.8 H POC ABG HHb (Measured) 1.0 ABG Methemoglobin 1.1 Philippe Test Po A-a O2 Difference 311.0 Respiratory Index 2.9 Hgb O2 Saturation 96.1 FiO2 70.0 Sodium Potassium Chloride Carbon Dioxide Anion Gap BUN Creatinine Est GFR ( Amer) Est GFR (Non-Af Amer) POC Glucose (mg/dL) 239 H Random Glucose Calcium Total Bilirubin AST ALT Alkaline Phosphatase C-React Prot High Sens 9.71 H Total Protein Albumin Globulin Albumin/Globulin Ratio 10/23/16 10/23/16 11:27 16:02 WBC RBC Hgb Hct MCV MCH MCHC RDW Plt Count MPV Neut % (Auto) Lymph % (Auto) [place] % (Auto) Eos % (Auto) Baso % (Auto) Neut # Lymph # [place] # Eos # Baso # Neutrophils % (Manual) Band Neutrophils % Lymphocytes % (Manual) Monocytes % (Manual) Eosinophils % (Manual) Platelet Estimate Large Platelets Polychromasia Poikilocytosis (manual Anisocytosis (manual) Tear Drop Cells Ovalocytes ESR Puncture Site pCO2 pO2 HCO3 ABG pH ABG Total CO2 ABG O2 Saturation ABG Base Excess ABG Hemoglobin ABG Carboxyhemoglobin POC ABG HHb (Measured) ABG Methemoglobin Philippe Test A-a O2 Difference Respiratory Index Hgb O2 Saturation FiO2 Sodium Potassium Chloride Carbon Dioxide Anion Gap BUN Creatinine Est GFR ( Amer) Est GFR (Non-Af Amer) POC Glucose (mg/dL) 268 H 207 H Random Glucose Calcium Total Bilirubin AST ALT Alkaline Phosphatase C-React Prot High Sens Total Protein Albumin Globulin Albumin/Globulin Ratio Fingerstick Blood Sugar Results: 239 Review of Systems - Review of Systems All systems: reviewed and no additional remarkable complaints except - Respiratory Respiratory: Other (short of breath when off of oxygen) Critical Care Progress Note - Nutrition Nutrition: Nutrition Category Date Time Status Renal Diet [DIET] Diets 10/15/16 Breakfast Active Assessment/Plan (1) ARDS (adult respiratory distress syndrome) Assessment and plan: 46yo M. PMHx COPD, bronchial asthma, diabetes, hypertension, DVT on anticoagulation, history of liver cirrhosis, chronic renal insufficiency. recurrent respiratory failure secondary to pulmonary edema and pneumonia. Neuro: Alert and oriented 3 Pulm: ARDS slowly improving, chest x-ray has improved from admission but is no longer improving. Have aggressively diuresed patient's with minimal improvement in Chest x-ray appearance and hypoxia. BiPAP at night, high flow oxygen during the day. continue methylprednisolone for possible pneumonitis. CV: Hemodynamically stable Hem: History of splenectomy, patient has received Pneumovax this year. History of DVT, continue Eliquis. Renal: Chronic kidney disease, will monitor. Stopping diuretics, patient is well into negative fluid balance. Endo: Glycemia secondary to steroids, Levemir 40 units subcutaneous every 12 and short acting insulin sliding scale for coverage. GI: Renal diet ID: Severe sepsis from pneumonia. Continue Zosyn and azithromycin. 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 patient grew out Enterococcus faecalis in Urine, with history of VRE, so starting patient on Zyvox. Started workup for possible immunodeficiencies, as patient has had 2 recurrent severe pneumonias in 2 months. ID following, Dr. Banuelos. DVT proph - Eliquis GI proph - Pepcid Code status -full code Critical Care Time spent 35 minutes Multi-disciplinary rounds were performed with house staff, nursing, speech therapy, respiratory therapy, pharmacy and nutrition with integrated input from the primary team/attending and other consulting services. The documented time is cumulative and includes review of patient data/exams/labs/chart review and examination of the patient on rounds and throughout the day; time is exclusive of any procedures or teaching time. Current Visit: Yes Status: Acute
[2016-10-23] MEDS: Insulin Detemir 100 units/ml Vial (Levemir) SC SCH (22:53)
[2016-10-24] MEDS: Albuterol-Ipratrop 3 mg / 0.5 (3 ml) UD INH SCH ×4 (01:15→19:15)
[2016-10-24] MEDS: Piperacill/Tazo 2.25gm in Dex 2.25 GM/50 ML BAG IVPB SCH ×3 (06:28→22:12)
[2016-10-24 06:56] LABS: BASO # 0.1 K/uL (0.0-0.2); BASO % 0.5 % (0.0-2.0); HEMATOCRIT 43.8 % (35.0-51.0); LYMPH # 1.2 K/uL (1.0-4.3); LYMPH % 4.4 % (20.0-40.0); MEAN CELL VOLUME 88.3 fL (80.0-94.0); MEAN CORPUSCULAR HEMOGLOBIN 27.9 pg (27.0-31.0); MEAN CORPUSCULAR HGB CONC 31.6 g/dL (33.0-37.0); MEAN PLATELET VOLUME 10.4 fL (7.2-11.7); MONO # 1.4 K/uL (0.0-0.8); PLATELET COUNT 206 K/uL (130-400); WHITE BLOOD COUNT 28.3 K/uL (4.8-10.8)
[2016-10-24 07:32] LABS: POTASSIUM 5.4 mmol/L (3.6-5.2)
[2016-10-24 07:34] LABS: BILIRUBIN,TOTAL 0.7 mg/dL (0.2-1.3); TOTAL PROTEIN 6.6 g/dL (6.3-8.3)
[2016-10-24 07:35] LABS: CALCIUM 8.7 mg/dl (8.6-10.4); MAGNESIUM 2.2 mg/dL (1.6-2.3); PHOSPHOROUS 4.9 mg/dL (2.5-4.5)
[2016-10-24] MEDS: (Novolin 70/30) NPH/Regular 70/30 Units/ml 10 ml vial SC SCH ×2 (08:11→17:05)
[2016-10-24] MEDS: (Novolog) Insulin Aspart, Recombinant 100 u/ml 10 ml vial SC SCH ×4 (08:12→22:12)
[2016-10-24 09:18] LABS: TOTAL CELLS COUNTED 100
[2016-10-24 09:19] LABS: NEUTROPHIL 92 % (50-75)
[2016-10-24] MEDS ORDERED: Sod Polystyrene Sulf 15 gm/60 ml Oral Susp PO ONE (09:25)
[2016-10-24] MEDS: Ofloxacin 0.3% Otic Soln AU SCH ×2 (10:03→17:13)
[2016-10-24] MEDS: MethylPREDNISolone 40 mg Vial IVP SCH (10:10)
--- NOTE | 2016-10-24 10:31 | CP.PCM.PN ---
Subjective - Date & Time of Evaluation Date of Evaluation: 10/24/16 Time of Evaluation: 10:28 - Subjective Subjective: Events noted; patient feels better now Known to me- has diabetic nephropathy with severe nephrotic syndrome; hypercoagulable state, fluid overload, type 4 RTA. Presente with likely fluid overload Will need diuretics for fluid/ K control Objective - Vital Signs/Intake and Output Vital Signs (last 24 hours): Temp Pulse Resp BP Pulse Ox 98.4 F 84 15 137/77 93 L 10/24/16 08:00 10/24/16 09:00 10/24/16 09:00 10/24/16 08:06 10/24/16 09:00 Intake and Output: 10/24/16 10/24/16 06:59 18:59 Intake Total 1050 300 Output Total 1350 300 Balance -300 0 - Medications Medications: Current Medications Albuterol/Ipratropium (Duoneb 3 Mg/0.5 Mg (3 Ml) Ud) 3 ml INH RQ6 [facility] Last Admin: 10/24/16 07:41 Dose: 3 ml Amlodipine Besylate (Norvasc) 5 mg PO DAILY [facility] Last Admin: 10/24/16 10:03 Dose: 5 mg Aspirin (Aspirin Chewable) 81 mg PO DAILY [facility] Last Admin: 10/24/16 10:03 Dose: 81 mg Famotidine (Pepcid) 20 mg PO DAILY [facility] Last Admin: 10/24/16 10:03 Dose: 20 mg Azithromycin 500 mg/ Sodium (Chloride) 250 mls @ 250 mls/hr IVPB Q24H [facility] Last Admin: 10/23/16 11:44 Dose: 250 mls/hr Piperacillin Sod/Tazobactam Sod (Zosyn 2.25 Gm Iv Premix) 2.25 gm in 50 mls @ 100 mls/hr IVPB Q8 [facility] Last Admin: 10/24/16 06:28 Dose: 100 mls/hr Insulin Aspart (Novolog) 0 unit SC ACHS [facility] PRN Reason: Protocol Last Admin: 10/24/16 08:12 Dose: 4 unit Insulin Detemir (Levemir) 50 unit SC HS [facility] Last Admin: 10/23/16 22:53 Dose: 50 unit Insulin Human Isoph/Insulin Regular (Novolin 70/30 (70/30 Units/Ml) 10 Ml) 20 units SC BIDAC [facility] Last Admin: 10/24/16 08:11 Dose: 20 units Linezolid (Zyvox) 600 mg PO BID [facility] Last Admin: 10/24/16 10:04 Dose: 600 mg Methylprednisolone (Solu-Medrol) 40 mg IVP DAILY [facility] Last Admin: 10/24/16 10:10 Dose: 40 mg Ofloxacin (Floxin 0.3% Otic Soln) 0.5 ml AU BID [facility] Last Admin: 10/24/16 10:03 Dose: 1 drop Rosuvastatin Calcium (Crestor) 20 mg PO HS [facility] Last Admin: 10/23/16 22:52 Dose: 20 mg Voriconazole (Vfend 200 Mg Tab) 200 mg PO Q12H [facility] Last Admin: 10/24/16 10:04 Dose: 200 mg - Labs Labs: 10/24/16 06:51 10/24/16 06:51 - Constitutional Appears: In Acute Distress, Older Than Stated Age, Chronically Ill - Head Exam Head Exam: ATRAUMATIC, NORMAL INSPECTION - Eye Exam Eye Exam: EOMI, Normal appearance - Neck Exam Neck Exam: Normal Inspection. absent: Tenderness - Respiratory Exam Respiratory Exam: Rhonchi, Respiratory Distress - Cardiovascular Exam Cardiovascular Exam: REGULAR RHYTHM, +S1 - GI/Abdominal Exam GI & Abdominal Exam: Soft. absent: Tenderness - Extremities Exam Extremities Exam: Pedal Edema. absent: Tenderness - Neurological Exam Neurological Exam: Alert, CN II-XII Intact - Skin Skin Exam: Dry, Warm Assessment and Plan (1) CKD stage 3 due to type 2 diabetes mellitus Status: Acute (2) Type 2 diabetes mellitus with diabetic nephropathy Status: Acute (3) Asthma exacerbation Status: Acute (4) Proteinuria due to type 2 diabetes mellitus Status: Acute (5) HTN (hypertension) Status: Chronic (6) Fluid overload Status: Acute - Assessment and Plan (Free Text) Plan: Add oral lasix
[2016-10-24] MEDS: Azithromycin 500 MG in Sodium Chloride 0.9% 250 ML IVPB SCH (11:00)
--- NOTE | 2016-10-24 13:29 | CT ---
PROCEDURE: CT OF THE TEMPORAL BONES WITHOUT CONTRAST HISTORY: assess mastoiditis COMPARISON: None available. TECHNIQUE: High resolution axial images of the temporal bones were obtained. Coronal and sagittal reformats were generated. Radiation dose: Total exam DLP = 725 mGy-cm. This CT exam was performed using one or more of the following dose reduction techniques: Automated exposure control, adjustment of the mA and/or kV according to patient size, and/or use of iterative reconstruction technique. FINDINGS: RIGHT TEMPORAL BONE: RIGHT MIDDLE EAR: There is partial opacification of the middle ear cavity, PA only at its dependent portion, partially surrounding the inferior portion of all 3 components of the ossicular chain. The aditus at antrum and anteroinferior attic are spared. The posterior portion of the attic appears partially opacified as well as nearly all mastoid air cells. The round and oval windows are normal in contour. No erosive changes are seen at this time including the scutum. No cortical breakthrough is appreciated intracranially or extra cranially. RIGHT INNER EAR: Cochlea: Normal. Semicircular canals: Normal. RIGHT MASTOID AIR CELLS: Near-complete opacification as discussed in right mid right middle ear section above. RIGHT INTERNAL AUDITORY CANAL: Normal. RIGHT EXTERNAL AUDITORY CANAL: Normal. RIGHT VESTIBULAR AND COCHLEAR AQUEDUCT: Normal. OTHER FINDINGS: None. LEFT TEMPORAL BONE: LEFT MIDDLE EAR: Normal. LEFT INNER EAR: Cochlea: Normal. Semicircular canals: Normal. LEFT MASTOID AIR CELLS: Normal. LEFT INTERNAL AUDITORY CANAL: Normal. LEFT EXTERNAL AUDITORY CANAL: Normal. LEFT VESTIBULAR AND COCHLEAR AQUEDUCTS: Normal. OTHER FINDINGS: None. IMPRESSION: New complete opacification the right mastoid air cells is identified as discussed above which includes the anterior portion and attic and spares the posterior portion. The right ossicular chain appears intact though opacity does extend to abut the oval window region. No erosive changes are appreciated definitively at the middle ear cavity including the scutum. Unremarkable left temporal bone.
--- NOTE | 2016-10-24 14:53 | CP.CCUPN ---
<Yudelka Merritt - Last Filed: 10/24/16 14:50> CCU Subjective - Physician Review Subjective (Free Text): Patient was seen and examined at bedside in this morning. Patient was sitting up comfortably and in no acute distress. Patient reports feeling well. Patient denies chest pain, abdominal pain, fevers, headaches, nausea, vomiting, diarrhea , constipation, and leg swelling or pain. Patient is stable for transfer to telemetry. 10/24/16 14:50 CCU Objective - Vital Signs / Intake & Output Vital Signs (Last 4 hours): Vital Signs Temp Pulse Resp BP Pulse Ox 10/24/16 13:33 20 10/24/16 12:03 89 70 L 10/24/16 12:00 98.2 F 10/24/16 11:35 18 10/24/16 11:00 87 16 139/71 94 L Intake and Output (Last 8hrs): Intake & Output 10/23/16 10/24/16 10/24/16 22:59 06:59 14:59 Intake Total 1040 550 650 Output Total 1150 600 550 Balance -110 -50 100 Weight 276 lb 14.4 oz 275 lb Intake: Intake, IV Amount 250 Left Hand 250 Oral 1040 550 400 Output: Urine 1150 600 550 Urine, Voided 1150 600 550 Other: # Bowel Movements 0 0 - Physical Exam Head: Positive for: Atraumatic, Normocephalic Extroacular Muscles: Positive for: EOMI Conjunctiva: Positive for: Normal Mouth: Positive for: Moist Mucous Membranes Respiratory/Chest: Positive for: Decreased Breath Sounds, Rales (B/L; improved.) , Rhonchi. Negative for: Clear to Auscultation Cardiovascular: Positive for: Regular Rate and Rhythm, Normal S1, S2 Abdomen: Positive for: Normal Bowel Sounds. Negative for: Tenderness Upper Extremity: Positive for: Normal Inspection Lower Extremity: Positive for: Edema. Negative for: CALF TENDERNESS, Tenderness Skin: Positive for: Warm, Dry, Normal Color Psychiatric: Positive for: Alert, Oriented x 3 - Medications Active Medications: Active Medications Generic Name Dose Route Start Last Admin Trade Name Freq PRN Reason Stop Dose Admin Albuterol/Ipratropium 3 ml 10/19/16 14:06 10/24/16 13:33 Duoneb 3 Mg/0.5 Mg (3 Ml) Ud INH 3 ml RQ6 ANABELLA Administration Amlodipine Besylate 5 mg 10/21/16 10:00 10/24/16 10:03 Norvasc PO 5 mg DAILY ANABELLA Administration Apixaban 5 mg 10/24/16 12:12 10/24/16 12:59 Eliquis PO 5 mg BID ANABELLA Administration Aspirin 81 mg 10/15/16 10:00 10/24/16 10:03 Aspirin Chewable PO 81 mg DAILY ANABELLA Administration Famotidine 20 mg 10/19/16 10:00 10/24/16 10:03 Pepcid PO 20 mg DAILY ANABELLA Administration Furosemide 40 mg 10/24/16 10:45 10/24/16 11:00 Lasix PO 40 mg BID ANABELLA Administration Piperacillin Sod/Tazobactam Sod 2.25 gm in 50 mls @ 100 mls/hr 10/20/16 22:00 10/24/16 12:59 Zosyn 2.25 Gm Iv Premix IVPB 100 mls/hr Q8 ANABELLA Administration Insulin Aspart 0 unit 10/15/16 11:30 10/24/16 11:04 Novolog SC 6 unit ACHS ANABELLA Administration Protocol Insulin Detemir 50 unit 10/22/16 22:00 10/23/16 22:53 Levemir SC 50 unit HS ANABELLA Administration Insulin Human Isoph/Insulin Regular 20 units 10/22/16 18:00 10/24/16 08:11 Novolin 70/30 (70/30 Units/Ml) 10 Ml SC 20 units BIDAC ANABELLA Administration Linezolid 600 mg 10/23/16 12:00 10/24/16 10:04 Zyvox PO 600 mg BID ANABELLA Administration Methylprednisolone 20 mg 10/25/16 10:00 Solu-Medrol IVP DAILY ANABELLA Ofloxacin 0.5 ml 10/14/16 18:00 10/24/16 10:03 Floxin 0.3% Otic Soln AU 1 drop BID ANABELLA Administration Rosuvastatin Calcium 20 mg 10/14/16 22:00 10/23/16 22:52 Crestor PO 20 mg HS ANABELLA Administration Voriconazole 200 mg 10/23/16 10:00 10/24/16 10:04 Vfend 200 Mg Tab PO 200 mg Q12H ANABELLA Administration - Patient Studies Lab Studies: Microbiology Studies 10/21/16 Unknown Gram Stain - Final Sputum Sputum Culture - Final Pseudomonas Aeruginosa 10/19/16 05:00 Blood Culture - Preliminary Blood-Venous NO GROWTH AFTER 4 DAYS Lab Studies 10/24/16 10/24/16 10/24/16 Range/Units 11:04 07:53 06:51 WBC (4.8-10.8) K/uL RBC (4.40-5.90) Mil/uL Hgb (12.0-18.0) g/dL Hct (35.0-51.0) % MCV (80.0-94.0) fL MCH (27.0-31.0) pg MCHC (33.0-37.0) g/dL RDW (11.5-14.5) % Plt Count (130-400) K/uL MPV (7.2-11.7) fL Neut % (Auto) (50.0-75.0) % Lymph % (Auto) (20.0-40.0) % [place] % (Auto) (0.0-10.0) % Eos % (Auto) (0.0-4.0) % Baso % (Auto) (0.0-2.0) % Neut # (1.8-7.0) K/uL Lymph # (1.0-4.3) K/uL [place] # (0.0-0.8) K/uL Eos # (0.0-0.7) K/uL Baso # (0.0-0.2) K/uL Neutrophils % (Manual) (50-75) % Lymphocytes % (Manual) (20-40) % Monocytes % (Manual) (0-10) % Platelet Estimate (NORMAL) RBC Morphology Sodium 136 (132-148) mmol/L Potassium 5.4 H (3.6-5.2) mmol/L Chloride 96 L (98-107) mmol/L Carbon Dioxide 29 (22-30) mmol/L Anion Gap 16 (10-20) BUN 63 H (9-20) mg/dL Creatinine 1.6 H (0.8-1.5) MG/DL Est GFR ( Amer) 56 Est GFR (Non-Af Amer) 47 POC Glucose (mg/dL) 269 H 221 H (65-110) mg/dL Random Glucose 280 H (75-110) mg/dL Calcium 8.7 (8.6-10.4) mg/dl Phosphorus 4.9 H (2.5-4.5) mg/dL Magnesium 2.2 (1.6-2.3) mg/dL Total Bilirubin 0.7 (0.2-1.3) mg/dL AST 48 (17-59) U/L ALT 67 (21-72) U/L Alkaline Phosphatase 167 H (38-126) U/L Total Protein 6.6 (6.3-8.3) g/dL Albumin 3.2 L (3.5-5.0) g/dL Globulin 3.3 (2.2-3.9) gm/dL Albumin/Globulin Ratio 1.0 (1.0-2.1) IgE (<xu=036) kU/L NINI 6 Profile (NEGATIVE) 10/24/16 10/24/16 10/23/16 Range/Units 06:51 01:55 23:59 WBC 28.3 H (4.8-10.8) K/uL RBC 4.96 (4.40-5.90) Mil/uL Hgb 13.8 (12.0-18.0) g/dL Hct 43.8 (35.0-51.0) % MCV 88.3 (80.0-94.0) fL MCH 27.9 (27.0-31.0) pg MCHC 31.6 L (33.0-37.0) g/dL RDW 14.0 (11.5-14.5) % Plt Count 206 (130-400) K/uL MPV 10.4 (7.2-11.7) fL Neut % (Auto) 90.1 H (50.0-75.0) % Lymph % (Auto) 4.4 L (20.0-40.0) % [place] % (Auto) 5.0 (0.0-10.0) % Eos % (Auto) 0.0 (0.0-4.0) % Baso % (Auto) 0.5 (0.0-2.0) % Neut # 25.5 H (1.8-7.0) K/uL Lymph # 1.2 (1.0-4.3) K/uL [place] # 1.4 H (0.0-0.8) K/uL Eos # 0.0 (0.0-0.7) K/uL Baso # 0.1 (0.0-0.2) K/uL Neutrophils % (Manual) 92 H (50-75) % Lymphocytes % (Manual) 4 L (20-40) % Monocytes % (Manual) 4 (0-10) % Platelet Estimate Normal (NORMAL) RBC Morphology Normal Sodium (132-148) mmol/L Potassium (3.6-5.2) mmol/L Chloride (98-107) mmol/L Carbon Dioxide (22-30) mmol/L Anion Gap (10-20) BUN (9-20) mg/dL Creatinine (0.8-1.5) MG/DL Est GFR ( Amer) Est GFR (Non-Af Amer) POC Glucose (mg/dL) 355 H 395 H (65-110) mg/dL Random Glucose (75-110) mg/dL Calcium (8.6-10.4) mg/dl Phosphorus (2.5-4.5) mg/dL Magnesium (1.6-2.3) mg/dL Total Bilirubin (0.2-1.3) mg/dL AST (17-59) U/L ALT (21-72) U/L Alkaline Phosphatase (38-126) U/L Total Protein (6.3-8.3) g/dL Albumin (3.5-5.0) g/dL Globulin (2.2-3.9) gm/dL Albumin/Globulin Ratio (1.0-2.1) IgE (<vx=794) kU/L NINI 6 Profile (NEGATIVE) 10/23/16 10/23/16 10/23/16 Range/Units 21:36 16:02 04:00 WBC (4.8-10.8) K/uL RBC (4.40-5.90) Mil/uL Hgb (12.0-18.0) g/dL Hct (35.0-51.0) % MCV (80.0-94.0) fL MCH (27.0-31.0) pg MCHC (33.0-37.0) g/dL RDW (11.5-14.5) % Plt Count (130-400) K/uL MPV (7.2-11.7) fL Neut % (Auto) (50.0-75.0) % Lymph % (Auto) (20.0-40.0) % [place] % (Auto) (0.0-10.0) % Eos % (Auto) (0.0-4.0) % Baso % (Auto) (0.0-2.0) % Neut # (1.8-7.0) K/uL Lymph # (1.0-4.3) K/uL [place] # (0.0-0.8) K/uL Eos # (0.0-0.7) K/uL Baso # (0.0-0.2) K/uL Neutrophils % (Manual) (50-75) % Lymphocytes % (Manual) (20-40) % Monocytes % (Manual) (0-10) % Platelet Estimate (NORMAL) RBC Morphology Sodium (132-148) mmol/L Potassium (3.6-5.2) mmol/L Chloride (98-107) mmol/L Carbon Dioxide (22-30) mmol/L Anion Gap (10-20) BUN (9-20) mg/dL Creatinine (0.8-1.5) MG/DL Est GFR ( Amer) Est GFR (Non-Af Amer) POC Glucose (mg/dL) 313 H 207 H (65-110) mg/dL Random Glucose (75-110) mg/dL Calcium (8.6-10.4) mg/dl Phosphorus (2.5-4.5) mg/dL Magnesium (1.6-2.3) mg/dL Total Bilirubin (0.2-1.3) mg/dL AST (17-59) U/L ALT (21-72) U/L Alkaline Phosphatase (38-126) U/L Total Protein (6.3-8.3) g/dL Albumin (3.5-5.0) g/dL Globulin (2.2-3.9) gm/dL Albumin/Globulin Ratio (1.0-2.1) IgE (<lg=723) kU/L NINI 6 Profile Negative (NEGATIVE) 10/22/16 Range/Units 07:45 WBC (4.8-10.8) K/uL RBC (4.40-5.90) Mil/uL Hgb (12.0-18.0) g/dL Hct (35.0-51.0) % MCV (80.0-94.0) fL MCH (27.0-31.0) pg MCHC (33.0-37.0) g/dL RDW (11.5-14.5) % Plt Count (130-400) K/uL MPV (7.2-11.7) fL Neut % (Auto) (50.0-75.0) % Lymph % (Auto) (20.0-40.0) % [place] % (Auto) (0.0-10.0) % Eos % (Auto) (0.0-4.0) % Baso % (Auto) (0.0-2.0) % Neut # (1.8-7.0) K/uL Lymph # (1.0-4.3) K/uL [place] # (0.0-0.8) K/uL Eos # (0.0-0.7) K/uL Baso # (0.0-0.2) K/uL Neutrophils % (Manual) (50-75) % Lymphocytes % (Manual) (20-40) % Monocytes % (Manual) (0-10) % Platelet Estimate (NORMAL) RBC Morphology Sodium (132-148) mmol/L Potassium (3.6-5.2) mmol/L Chloride (98-107) mmol/L Carbon Dioxide (22-30) mmol/L Anion Gap (10-20) BUN (9-20) mg/dL Creatinine (0.8-1.5) MG/DL Est GFR ( Amer) Est GFR (Non-Af Amer) POC Glucose (mg/dL) (65-110) mg/dL Random Glucose (75-110) mg/dL Calcium (8.6-10.4) mg/dl Phosphorus (2.5-4.5) mg/dL Magnesium (1.6-2.3) mg/dL Total Bilirubin (0.2-1.3) mg/dL AST (17-59) U/L ALT (21-72) U/L Alkaline Phosphatase (38-126) U/L Total Protein (6.3-8.3) g/dL Albumin (3.5-5.0) g/dL Globulin (2.2-3.9) gm/dL Albumin/Globulin Ratio (1.0-2.1) IgE 2051 H (<gc=717) kU/L NINI 6 Profile (NEGATIVE) Laboratory Results - last 24 hr 10/22/16 10/23/16 10/23/16 07:45 04:00 16:02 WBC RBC Hgb Hct MCV MCH MCHC RDW Plt Count MPV Neut % (Auto) Lymph % (Auto) [place] % (Auto) Eos % (Auto) Baso % (Auto) Neut # Lymph # [place] # Eos # Baso # Neutrophils % (Manual) Lymphocytes % (Manual) Monocytes % (Manual) Platelet Estimate RBC Morphology Sodium Potassium Chloride Carbon Dioxide Anion Gap BUN Creatinine Est GFR ( Amer) Est GFR (Non-Af Amer) POC Glucose (mg/dL) 207 H Random Glucose Calcium Phosphorus Magnesium Total Bilirubin AST ALT Alkaline Phosphatase Total Protein Albumin Globulin Albumin/Globulin Ratio IgE 2050 H NINI 6 Profile Negative 10/23/16 10/23/16 10/24/16 21:36 23:59 01:55 WBC RBC Hgb Hct MCV MCH MCHC RDW Plt Count MPV Neut % (Auto) Lymph % (Auto) [place] % (Auto) Eos % (Auto) Baso % (Auto) Neut # Lymph # [place] # Eos # Baso # Neutrophils % (Manual) Lymphocytes % (Manual) Monocytes % (Manual) Platelet Estimate RBC Morphology Sodium Potassium Chloride Carbon Dioxide Anion Gap BUN Creatinine Est GFR ( Amer) Est GFR (Non-Af Amer) POC Glucose (mg/dL) 313 H 395 H 355 H Random Glucose Calcium Phosphorus Magnesium Total Bilirubin AST ALT Alkaline Phosphatase Total Protein Albumin Globulin Albumin/Globulin Ratio IgE NINI 6 Profile 10/24/16 10/24/16 10/24/16 06:51 06:51 07:53 WBC 28.3 H RBC 4.96 Hgb 13.8 Hct 43.8 MCV 88.3 MCH 27.9 MCHC 31.6 L RDW 14.0 Plt Count 206 MPV 10.4 Neut % (Auto) 90.1 H Lymph % (Auto) 4.4 L [place] % (Auto) 5.0 Eos % (Auto) 0.0 Baso % (Auto) 0.5 Neut # 25.5 H Lymph # 1.2 [place] # 1.4 H Eos # 0.0 Baso # 0.1 Neutrophils % (Manual) 92 H Lymphocytes % (Manual) 4 L Monocytes % (Manual) 4 Platelet Estimate Normal RBC Morphology Normal Sodium 136 Potassium 5.4 H Chloride 96 L Carbon Dioxide 29 Anion Gap 16 BUN 63 H Creatinine 1.6 H Est GFR ( Amer) 56 Est GFR (Non-Af Amer) 47 POC Glucose (mg/dL) 221 H Random Glucose 280 H Calcium 8.7 Phosphorus 4.9 H Magnesium 2.2 Total Bilirubin 0.7 AST 48 ALT 67 Alkaline Phosphatase 167 H Total Protein 6.6 Albumin 3.2 L Globulin 3.3 Albumin/Globulin Ratio 1.0 IgE NINI 6 Profile 10/24/16 11:04 WBC RBC Hgb Hct MCV MCH MCHC RDW Plt Count MPV Neut % (Auto) Lymph % (Auto) [place] % (Auto) Eos % (Auto) Baso % (Auto) Neut # Lymph # [place] # Eos # Baso # Neutrophils % (Manual) Lymphocytes % (Manual) Monocytes % (Manual) Platelet Estimate RBC Morphology Sodium Potassium Chloride Carbon Dioxide Anion Gap BUN Creatinine Est GFR ( Amer) Est GFR (Non-Af Amer) POC Glucose (mg/dL) 269 H Random Glucose Calcium Phosphorus Magnesium Total Bilirubin AST ALT Alkaline Phosphatase Total Protein Albumin Globulin Albumin/Globulin Ratio IgE NINI 6 Profile Fingerstick Blood Sugar Results: 313 Review of Systems - Constitutional Constitutional: absent: Fever - Cardiovascular Cardiovascular: Dyspnea (without oxygen). absent: Chest Pain, Edema, Leg Edema - Respiratory Respiratory: Dyspnea (without oxygen). absent: Cough - Gastrointestinal Gastrointestinal: absent: Abdominal Pain, Constipation, Diarrhea, Nausea, Vomiting - Genitourinary Genitourinary: absent: Dysuria, Urinary Frequency Critical Care Progress Note - Nutrition Nutrition: Nutrition Category Date Time Status Renal Diet [DIET] Diets 10/15/16 Breakfast Active Assessment/Plan (1) ARDS (adult respiratory distress syndrome) Assessment and plan: Patient status: Transferred to ICU for respiratory insufficiency/pulmonary edema ; Patient has ARDS; Patient is positive for pseudomonas aeruginoas 10/24/16- placed on Cipro. Continue treatment plan. Patient is stable for transfer to telemetry. Neuro: - AAOX3 CV: - Hx of CHF - ECHO: normal bi-ventricular function, no gross valvular abnormality, no pericardial effusion. LVEF 74.3% - Continue Lasix 40mg , ASA 81mg daily, Crestor 20mg PO HS - EKG(10/14/16): Normal sinus rhythm at 93 bpm; RBBB - Hx of DVT: IVF filter placed; Apixaban 5mg PO BID - Fluid restriction (1,000ml) Pulmonary: - ARDs, continue same medications/treatment - Lasix to 40mg IVP daily - BiPAP when sleeping and high-flow nasal canula while awake FiO2 60 - Incentive spirometry - Hx of asthma--> Continue Solu-medrol 20mg IVP Daily, Duoneb 3ml INH RQ6 prn SOB - Sputum cx: + pseudomonas aeruginosa - Started Cipro 200mg IV Q12 - CXR 10/24: no significant interval change GI: - No acute issues - Renal Diet, fluid restriction 1000mL Hematology: - No acute issues Endocrine: - Hx of DM - Continue Novolog SC; Continue Levemir 30 units SC Q12 - Monitor daily glucose Renal: - Worsening renal insufficiency - Continue to trend renal functions - Hyperkalemia --> resolved; continue to monitor daily - Nephrology consult- Dr. Rhoades Musculoskeletal: - No acute issues Genitourinary: - No acute issues - UA x2: negative - Urine cx: + enterococcus faecilis--> Zyvox Infectious disease: - ID consult- Dr. Banuelos, help appreciated - Leukocytosis likely 2/2 to pneumonia--> sputum cx + Pseudomonas aeruginosa - Started Cipro 200mg IV Q12 - Continue Ceftriaxone 1gm daily - Continue Ofloxacin 0.5 ml AU BID - Azithryomycin 500mg IV daily started 10/19 - Procalcitonin: 0.86 - Urine cx: + enterococcus faecilis--> Zyvox - IgE: +2051 --> r/o Aspergillosis - ANA6- negative - Complement 3: low (86); complement 4: 14.2 - F/U: Legionella Ag, Scl-70 Ab, ANCA, Aspergillus, Complement, IgG, Lymphocyte panel, Rh factor - Imaging: - CT facial bones 10/14: most compatible with acute right mastoiditis and otitis media. - CT facial bones 10/24: new complete opacification of right mastoid air cells , to include anterior portion and attic and spares posterior portion; right ossicular chain appears intact, however opacity does extend to abut the oval window region. Prophylaxis: - DVT prophylaxis: Apixaban 5mg PO BID - Patient has IVC filter placed by Dr. Ortega in May 2016 - GI: Pepcid 20mg PO daily - ASA 81mg PO daily - PT/OT Current Visit: Yes Status: Acute <Dae Long - Last Filed: 10/24/16 19:18> CCU Subjective - Physician Review Subjective (Free Text): 10/24/16 19:18 Patient is showing much improvement, continue the current treatment. Will follow the patient. I agree with the resident note CCU Objective - Vital Signs / Intake & Output Vital Signs (Last 4 hours): Vital Signs Temp Pulse Resp BP Pulse Ox 10/24/16 19:17 20 10/24/16 17:11 79 16 131/80 96 10/24/16 17:07 131/80 10/24/16 17:00 82 17 93 L 10/24/16 16:01 18 10/24/16 16:00 98.1 F 90 19 93 L 10/24/16 15:35 80 21 124/72 92 L Intake and Output (Last 8hrs): Intake & Output 10/24/16 10/24/16 10/24/16 06:59 14:59 22:59 Intake Total 550 650 400 Output Total 600 550 750 Balance -50 100 -350 Weight 276 lb 14.4 oz 275 lb Intake: Intake, IV Amount 250 Left Hand 250 Oral 550 400 400 Output: Urine 600 550 750 Urine, Voided 600 550 750 Other: # Bowel Movements 0 - Medications Active Medications: Active Medications Generic Name Dose Route Start Last Admin Trade Name Freq PRN Reason Stop Dose Admin Albuterol/Ipratropium 3 ml 10/19/16 14:06 10/24/16 19:15 Duoneb 3 Mg/0.5 Mg (3 Ml) Ud INH 3 ml RQ6 ANABELLA Administration Amlodipine Besylate 5 mg 10/21/16 10:00 10/24/16 10:03 Norvasc PO 5 mg DAILY ANABELLA Administration Apixaban 5 mg 10/24/16 12:12 10/24/16 17:05 Eliquis PO 5 mg BID ANABELLA Administration Aspirin 81 mg 10/15/16 10:00 10/24/16 10:03 Aspirin Chewable PO 81 mg DAILY ANABELLA Administration Famotidine 20 mg 10/19/16 10:00 10/24/16 10:03 Pepcid PO 20 mg DAILY ANABELLA Administration Furosemide 40 mg 10/24/16 10:45 10/24/16 17:07 Lasix PO 40 mg BID ANABELLA Administration Piperacillin Sod/Tazobactam Sod 2.25 gm in 50 mls @ 100 mls/hr 10/20/16 22:00 10/24/16 12:59 Zosyn 2.25 Gm Iv Premix IVPB 100 mls/hr Q8 ANABELLA Administration Ciprofloxacin 100 mls @ 67 mls/hr 10/24/16 17:00 10/24/16 17:04 Cipro 200mg/100ml D5w IVPB 67 mls/hr Q12H ANABELLA Administration Insulin Aspart 0 unit 10/15/16 11:30 10/24/16 17:05 Novolog SC 8 unit ACHS ANABELLA Administration Protocol Insulin Detemir 50 unit 10/22/16 22:00 10/23/16 22:53 Levemir SC 50 unit HS ANABELLA Administration Insulin Human Isoph/Insulin Regular 20 units 10/22/16 18:00 10/24/16 17:05 Novolin 70/30 (70/30 Units/Ml) 10 Ml SC 20 units BIDAC ANABELLA Administration Linezolid 600 mg 10/23/16 12:00 10/24/16 17:05 Zyvox PO 600 mg BID ANABELLA Administration Methylprednisolone 20 mg 10/25/16 10:00 Solu-Medrol IVP DAILY ANABELLA Ofloxacin 0.5 ml 10/14/16 18:00 10/24/16 17:13 Floxin 0.3% Otic Soln AU 1 drop BID ANABELLA Administration Rosuvastatin Calcium 20 mg 10/14/16 22:00 10/23/16 22:52 Crestor PO 20 mg HS ANABELLA Administration Voriconazole 200 mg 10/23/16 10:00 10/24/16 10:04 Vfend 200 Mg Tab PO 200 mg Q12H ANABELLA Administration - Patient Studies Lab Studies: Microbiology Studies 10/21/16 Unknown Gram Stain - Final Sputum Sputum Culture - Final Pseudomonas Aeruginosa 10/19/16 05:00 Blood Culture - Preliminary Blood-Venous NO GROWTH AFTER 4 DAYS Lab Studies 10/24/16 10/24/16 10/24/16 Range/Units 16:24 11:04 07:53 WBC (4.8-10.8) K/uL RBC (4.40-5.90) Mil/uL Hgb (12.0-18.0) g/dL Hct (35.0-51.0) % MCV (80.0-94.0) fL MCH (27.0-31.0) pg MCHC (33.0-37.0) g/dL RDW (11.5-14.5) % Plt Count (130-400) K/uL MPV (7.2-11.7) fL Neut % (Auto) (50.0-75.0) % Lymph % (Auto) (20.0-40.0) % [place] % (Auto) (0.0-10.0) % Eos % (Auto) (0.0-4.0) % Baso % (Auto) (0.0-2.0) % Neut # (1.8-7.0) K/uL Lymph # (1.0-4.3) K/uL [place] # (0.0-0.8) K/uL Eos # (0.0-0.7) K/uL Baso # (0.0-0.2) K/uL Neutrophils % (Manual) (50-75) % Lymphocytes % (Manual) (20-40) % Monocytes % (Manual) (0-10) % Platelet Estimate (NORMAL) RBC Morphology Sodium (132-148) mmol/L Potassium (3.6-5.2) mmol/L Chloride (98-107) mmol/L Carbon Dioxide (22-30) mmol/L Anion Gap (10-20) BUN (9-20) mg/dL Creatinine (0.8-1.5) MG/DL Est GFR ( Amer) Est GFR (Non-Af Amer) POC Glucose (mg/dL) 348 H 269 H 221 H (65-110) mg/dL Random Glucose (75-110) mg/dL Calcium (8.6-10.4) mg/dl Phosphorus (2.5-4.5) mg/dL Magnesium (1.6-2.3) mg/dL Total Bilirubin (0.2-1.3) mg/dL AST (17-59) U/L ALT (21-72) U/L Alkaline Phosphatase (38-126) U/L Total Protein (6.3-8.3) g/dL Albumin (3.5-5.0) g/dL Globulin (2.2-3.9) gm/dL Albumin/Globulin Ratio (1.0-2.1) IgE (<ic=976) kU/L NINI 6 Profile (NEGATIVE) 10/24/16 10/24/16 10/24/16 Range/Units 06:51 06:51 01:55 WBC 28.3 H (4.8-10.8) K/uL RBC 4.96 (4.40-5.90) Mil/uL Hgb 13.8 (12.0-18.0) g/dL Hct 43.8 (35.0-51.0) % MCV 88.3 (80.0-94.0) fL MCH 27.9 (27.0-31.0) pg MCHC 31.6 L (33.0-37.0) g/dL RDW 14.0 (11.5-14.5) % Plt Count 206 (130-400) K/uL MPV 10.4 (7.2-11.7) fL Neut % (Auto) 90.1 H (50.0-75.0) % Lymph % (Auto) 4.4 L (20.0-40.0) % [place] % (Auto) 5.0 (0.0-10.0) % Eos % (Auto) 0.0 (0.0-4.0) % Baso % (Auto) 0.5 (0.0-2.0) % Neut # 25.5 H (1.8-7.0) K/uL Lymph # 1.2 (1.0-4.3) K/uL [place] # 1.4 H (0.0-0.8) K/uL Eos # 0.0 (0.0-0.7) K/uL Baso # 0.1 (0.0-0.2) K/uL Neutrophils % (Manual) 92 H (50-75) % Lymphocytes % (Manual) 4 L (20-40) % Monocytes % (Manual) 4 (0-10) % Platelet Estimate Normal (NORMAL) RBC Morphology Normal Sodium 136 (132-148) mmol/L Potassium 5.4 H (3.6-5.2) mmol/L Chloride 96 L (98-107) mmol/L Carbon Dioxide 29 (22-30) mmol/L Anion Gap 16 (10-20) BUN 63 H (9-20) mg/dL Creatinine 1.6 H (0.8-1.5) MG/DL Est GFR ( Amer) 56 Est GFR (Non-Af Amer) 47 POC Glucose (mg/dL) 355 H (65-110) mg/dL Random Glucose 280 H (75-110) mg/dL Calcium 8.7 (8.6-10.4) mg/dl Phosphorus 4.9 H (2.5-4.5) mg/dL Magnesium 2.2 (1.6-2.3) mg/dL Total Bilirubin 0.7 (0.2-1.3) mg/dL AST 48 (17-59) U/L ALT 67 (21-72) U/L Alkaline Phosphatase 167 H (38-126) U/L Total Protein 6.6 (6.3-8.3) g/dL Albumin 3.2 L (3.5-5.0) g/dL Globulin 3.3 (2.2-3.9) gm/dL Albumin/Globulin Ratio 1.0 (1.0-2.1) IgE (<dc=414) kU/L NINI 6 Profile (NEGATIVE) 10/23/16 10/23/16 10/23/16 Range/Units 23:59 21:36 04:00 WBC (4.8-10.8) K/uL RBC (4.40-5.90) Mil/uL Hgb (12.0-18.0) g/dL Hct (35.0-51.0) % MCV (80.0-94.0) fL MCH (27.0-31.0) pg MCHC (33.0-37.0) g/dL RDW (11.5-14.5) % Plt Count (130-400) K/uL MPV (7.2-11.7) fL Neut % (Auto) (50.0-75.0) % Lymph % (Auto) (20.0-40.0) % [place] % (Auto) (0.0-10.0) % Eos % (Auto) (0.0-4.0) % Baso % (Auto) (0.0-2.0) % Neut # (1.8-7.0) K/uL Lymph # (1.0-4.3) K/uL [place] # (0.0-0.8) K/uL Eos # (0.0-0.7) K/uL Baso # (0.0-0.2) K/uL Neutrophils % (Manual) (50-75) % Lymphocytes % (Manual) (20-40) % Monocytes % (Manual) (0-10) % Platelet Estimate (NORMAL) RBC Morphology Sodium (132-148) mmol/L Potassium (3.6-5.2) mmol/L Chloride (98-107) mmol/L Carbon Dioxide (22-30) mmol/L Anion Gap (10-20) BUN (9-20) mg/dL Creatinine (0.8-1.5) MG/DL Est GFR ( Amer) Est GFR (Non-Af Amer) POC Glucose (mg/dL) 395 H 313 H (65-110) mg/dL Random Glucose (75-110) mg/dL Calcium (8.6-10.4) mg/dl Phosphorus (2.5-4.5) mg/dL Magnesium (1.6-2.3) mg/dL Total Bilirubin (0.2-1.3) mg/dL AST (17-59) U/L ALT (21-72) U/L Alkaline Phosphatase (38-126) U/L Total Protein (6.3-8.3) g/dL Albumin (3.5-5.0) g/dL Globulin (2.2-3.9) gm/dL Albumin/Globulin Ratio (1.0-2.1) IgE (<xs=190) kU/L NINI 6 Profile Negative (NEGATIVE) 10/22/16 Range/Units 07:45 WBC (4.8-10.8) K/uL RBC (4.40-5.90) Mil/uL Hgb (12.0-18.0) g/dL Hct (35.0-51.0) % MCV (80.0-94.0) fL MCH (27.0-31.0) pg MCHC (33.0-37.0) g/dL RDW (11.5-14.5) % Plt Count (130-400) K/uL MPV (7.2-11.7) fL Neut % (Auto) (50.0-75.0) % Lymph % (Auto) (20.0-40.0) % [place] % (Auto) (0.0-10.0) % Eos % (Auto) (0.0-4.0) % Baso % (Auto) (0.0-2.0) % Neut # (1.8-7.0) K/uL Lymph # (1.0-4.3) K/uL [place] # (0.0-0.8) K/uL Eos # (0.0-0.7) K/uL Baso # (0.0-0.2) K/uL Neutrophils % (Manual) (50-75) % Lymphocytes % (Manual) (20-40) % Monocytes % (Manual) (0-10) % Platelet Estimate (NORMAL) RBC Morphology Sodium (132-148) mmol/L Potassium (3.6-5.2) mmol/L Chloride (98-107) mmol/L Carbon Dioxide (22-30) mmol/L Anion Gap (10-20) BUN (9-20) mg/dL Creatinine (0.8-1.5) MG/DL Est GFR ( Amer) Est GFR (Non-Af Amer) POC Glucose (mg/dL) (65-110) mg/dL Random Glucose (75-110) mg/dL Calcium (8.6-10.4) mg/dl Phosphorus (2.5-4.5) mg/dL Magnesium (1.6-2.3) mg/dL Total Bilirubin (0.2-1.3) mg/dL AST (17-59) U/L ALT (21-72) U/L Alkaline Phosphatase (38-126) U/L Total Protein (6.3-8.3) g/dL Albumin (3.5-5.0) g/dL Globulin (2.2-3.9) gm/dL Albumin/Globulin Ratio (1.0-2.1) IgE 2051 H (<rv=411) kU/L NINI 6 Profile (NEGATIVE) Laboratory Results - last 24 hr 10/22/16 10/23/16 10/23/16 07:45 04:00 21:36 WBC RBC Hgb Hct MCV MCH MCHC RDW Plt Count MPV Neut % (Auto) Lymph % (Auto) [place] % (Auto) Eos % (Auto) Baso % (Auto) Neut # Lymph # [place] # Eos # Baso # Neutrophils % (Manual) Lymphocytes % (Manual) Monocytes % (Manual) Platelet Estimate RBC Morphology Sodium Potassium Chloride Carbon Dioxide Anion Gap BUN Creatinine Est GFR ( Amer) Est GFR (Non-Af Amer) POC Glucose (mg/dL) 313 H Random Glucose Calcium Phosphorus Magnesium Total Bilirubin AST ALT Alkaline Phosphatase Total Protein Albumin Globulin Albumin/Globulin Ratio IgE 2051 H NINI 6 Profile Negative 10/23/16 10/24/16 10/24/16 23:59 01:55 06:51 WBC 28.3 H RBC 4.96 Hgb 13.8 Hct 43.8 MCV 88.3 MCH 27.9 MCHC 31.6 L RDW 14.0 Plt Count 206 MPV 10.4 Neut % (Auto) 90.1 H Lymph % (Auto) 4.4 L [place] % (Auto) 5.0 Eos % (Auto) 0.0 Baso % (Auto) 0.5 Neut # 25.5 H Lymph # 1.2 [place] # 1.4 H Eos # 0.0 Baso # 0.1 Neutrophils % (Manual) 92 H Lymphocytes % (Manual) 4 L Monocytes % (Manual) 4 Platelet Estimate Normal RBC Morphology Normal Sodium Potassium Chloride Carbon Dioxide Anion Gap BUN Creatinine Est GFR ( Amer) Est GFR (Non-Af Amer) POC Glucose (mg/dL) 395 H 355 H Random Glucose Calcium Phosphorus Magnesium Total Bilirubin AST ALT Alkaline Phosphatase Total Protein Albumin Globulin Albumin/Globulin Ratio IgE NINI 6 Profile 10/24/16 10/24/16 10/24/16 06:51 07:53 11:04 WBC RBC Hgb Hct MCV MCH MCHC RDW Plt Count MPV Neut % (Auto) Lymph % (Auto) [place] % (Auto) Eos % (Auto) Baso % (Auto) Neut # Lymph # [place] # Eos # Baso # Neutrophils % (Manual) Lymphocytes % (Manual) Monocytes % (Manual) Platelet Estimate RBC Morphology Sodium 136 Potassium 5.4 H Chloride 96 L Carbon Dioxide 29 Anion Gap 16 BUN 63 H Creatinine 1.6 H Est GFR ( Amer) 56 Est GFR (Non-Af Amer) 47 POC Glucose (mg/dL) 221 H 269 H Random Glucose 280 H Calcium 8.7 Phosphorus 4.9 H Magnesium 2.2 Total Bilirubin 0.7 AST 48 ALT 67 Alkaline Phosphatase 167 H Total Protein 6.6 Albumin 3.2 L Globulin 3.3 Albumin/Globulin Ratio 1.0 IgE NINI 6 Profile 10/24/16 16:24 WBC RBC Hgb Hct MCV MCH MCHC RDW Plt Count MPV Neut % (Auto) Lymph % (Auto) [place] % (Auto) Eos % (Auto) Baso % (Auto) Neut # Lymph # [place] # Eos # Baso # Neutrophils % (Manual) Lymphocytes % (Manual) Monocytes % (Manual) Platelet Estimate RBC Morphology Sodium Potassium Chloride Carbon Dioxide Anion Gap BUN Creatinine Est GFR ( Amer) Est GFR (Non-Af Amer) POC Glucose (mg/dL) 348 H Random Glucose Calcium Phosphorus Magnesium Total Bilirubin AST ALT Alkaline Phosphatase Total Protein Albumin Globulin Albumin/Globulin Ratio IgE NINI 6 Profile Critical Care Progress Note - Nutrition Nutrition: Nutrition Category Date Time Status Renal Diet [DIET] Diets 10/15/16 Breakfast Active
[2016-10-24] MEDS: Ciprofloxacin 200mg/100ml D5W 100 ML IVPB SCH (17:04)
[2016-10-24] MEDS: Insulin Detemir 100 units/ml Vial (Levemir) SC SCH (22:11)
[2016-10-25] MEDS: Albuterol-Ipratrop 3 mg / 0.5 (3 ml) UD INH SCH ×4 (01:46→20:22)
[2016-10-25] MEDS ORDERED: (Novolog) Insulin Aspart, Recombinant 100 u/ml 10 ml vial SC STA (02:56)
[2016-10-25] MEDS: Ciprofloxacin 200mg/100ml D5W 100 ML IVPB SCH ×2 (05:31→22:59)
[2016-10-25] MEDS: Piperacill/Tazo 2.25gm in Dex 2.25 GM/50 ML BAG IVPB SCH (06:22)
[2016-10-25 06:35] LABS: BASO # 0.1 K/uL (0.0-0.2); BASO % 0.3 % (0.0-2.0); HEMATOCRIT 44.3 % (35.0-51.0); LYMPH # 1.5 K/uL (1.0-4.3); LYMPH % 4.3 % (20.0-40.0); MEAN CELL VOLUME 88.4 fL (80.0-94.0); MEAN CORPUSCULAR HEMOGLOBIN 28.7 pg (27.0-31.0); MEAN CORPUSCULAR HGB CONC 32.5 g/dL (33.0-37.0); MEAN PLATELET VOLUME 11.1 fL (7.2-11.7); MONO # 2.1 K/uL (0.0-0.8); MONO % 6.2 % (0.0-10.0); PLATELET COUNT 245 K/uL (130-400); RED CELL DISTRIBUTION WIDTH 14.5 % (11.5-14.5); WHITE BLOOD COUNT 34.5 K/uL (4.8-10.8)
[2016-10-25 06:59] LABS: BILIRUBIN,TOTAL 0.6 mg/dL (0.2-1.3); CALCIUM 8.9 mg/dl (8.6-10.4); MAGNESIUM 2.5 mg/dL (1.6-2.3); PHOSPHOROUS 3.8 mg/dL (2.5-4.5); POTASSIUM 4.6 mmol/L (3.6-5.2); TOTAL PROTEIN 6.4 g/dL (6.3-8.3)
[2016-10-25 07:01] LABS: ALB/GLOB RATIO 1.1 (1.0-2.1)
[2016-10-25 08:40] LABS: NEUTROPHIL 91 % (50-75); TOTAL CELLS COUNTED 100
[2016-10-25] MEDS: (Novolin 70/30) NPH/Regular 70/30 Units/ml 10 ml vial SC SCH ×2 (09:08→17:54)
[2016-10-25] MEDS: Ofloxacin 0.3% Otic Soln AU SCH ×2 (09:08→19:21)
[2016-10-25] MEDS: (Novolog) Insulin Aspart, Recombinant 100 u/ml 10 ml vial SC SCH ×3 (09:09→21:30)
[2016-10-25] MEDS ORDERED: MethylPREDNISolone 40 mg Vial IVP SCH (10:00)
--- NOTE | 2016-10-25 11:21 | CP.PCM.PN ---
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 Objective - Vital Signs/Intake and Output Vital Signs (last 24 hours): Temp Pulse Resp BP Pulse Ox 98.1 F 84 18 139/72 96 10/25/16 08:30 10/25/16 08:30 10/25/16 08:30 10/25/16 09:06 10/25/16 08:30 Intake and Output: 10/25/16 10/25/16 06:59 18:59 Intake Total 480 0 Output Total 950 100 Balance -470 -100 - Medications Medications: Current Medications Albuterol/Ipratropium (Duoneb 3 Mg/0.5 Mg (3 Ml) Ud) 3 ml INH RQ6 [facility] Last Admin: 10/25/16 07:49 Dose: 3 ml Amlodipine Besylate (Norvasc) 5 mg PO DAILY [facility] Last Admin: 10/25/16 09:05 Dose: 5 mg Apixaban (Eliquis) 5 mg PO BID [facility] Last Admin: 10/25/16 09:10 Dose: 5 mg Aspirin (Aspirin Chewable) 81 mg PO DAILY [facility] Last Admin: 10/25/16 09:05 Dose: 81 mg Famotidine (Pepcid) 20 mg PO DAILY [facility] Last Admin: 10/25/16 09:05 Dose: 20 mg Furosemide (Lasix) 40 mg PO BID [facility] Last Admin: 10/25/16 09:06 Dose: 40 mg Cefepime HCl (Maxipime Iv 2 Gm Premix) 2 gm in 100 mls @ 200 mls/hr IVPB Q12H [facility] Stop: 10/30/16 11:31 Insulin Aspart (Novolog) 0 unit SC ACHS [facility] PRN Reason: Protocol Last Admin: 10/25/16 09:09 Dose: 2 unit Insulin Detemir (Levemir) 50 unit SC HS [facility] Last Admin: 10/24/16 22:11 Dose: 50 unit Insulin Human Isoph/Insulin Regular (Novolin 70/30 (70/30 Units/Ml) 10 Ml) 20 units SC BIDAC [facility] Last Admin: 10/25/16 09:08 Dose: 20 units Linezolid (Zyvox) 600 mg PO BID [facility] Last Admin: 10/25/16 09:05 Dose: 600 mg Methylprednisolone (Solu-Medrol) 20 mg IVP DAILY [facility] Last Admin: 10/25/16 09:04 Dose: 20 mg Ofloxacin (Floxin 0.3% Otic Soln) 0.5 ml AU BID [facility] Last Admin: 10/25/16 09:08 Dose: 1 drop Rosuvastatin Calcium (Crestor) 20 mg PO HS [facility] Last Admin: 10/24/16 22:11 Dose: 20 mg Voriconazole (Vfend 200 Mg Tab) 200 mg PO Q12H [facility] Last Admin: 10/24/16 22:11 Dose: 200 mg - Labs Labs: 10/25/16 06:24 10/25/16 06:24 Assessment and Plan (1) ARDS (adult respiratory distress syndrome) Status: Acute (2) Acute kidney injury Status: Acute (3) Asthma exacerbation Status: Acute (4) CHF (congestive heart failure) Status: Acute (5) CKD (chronic kidney disease) Status: Acute (6) Otitis externa of right ear Status: Acute (7) Renal failure Status: Acute
[2016-10-25] MEDS ORDERED: Cefepime IV 2 gm in Dextrose 2 GM/100 ML BAG IVPB SCH ×2 (12:30→15:00)
--- NOTE | 2016-10-25 14:18 | CP.PCM.PN ---
Subjective - Date & Time of Evaluation Date of Evaluation: 10/25/16 Time of Evaluation: 14:16 - Subjective Subjective: appears comfortable up in bed denies any sob/ chest pain good uop negative 700cc yesterday Objective - Vital Signs/Intake and Output Vital Signs (last 24 hours): Temp Pulse Resp BP Pulse Ox 98.1 F 84 18 139/72 96 10/25/16 08:30 10/25/16 08:30 10/25/16 08:30 10/25/16 09:06 10/25/16 08:30 Intake and Output: 10/25/16 10/25/16 06:59 18:59 Intake Total 480 0 Output Total 950 100 Balance -470 -100 - Medications Medications: Current Medications Albuterol/Ipratropium (Duoneb 3 Mg/0.5 Mg (3 Ml) Ud) 3 ml INH RQ6 [facility] Last Admin: 10/25/16 13:45 Dose: 3 ml Amlodipine Besylate (Norvasc) 5 mg PO DAILY [facility] Last Admin: 10/25/16 09:05 Dose: 5 mg Apixaban (Eliquis) 5 mg PO BID [facility] Last Admin: 10/25/16 09:10 Dose: 5 mg Aspirin (Aspirin Chewable) 81 mg PO DAILY [facility] Last Admin: 10/25/16 09:05 Dose: 81 mg Famotidine (Pepcid) 20 mg PO DAILY [facility] Last Admin: 10/25/16 09:05 Dose: 20 mg Furosemide (Lasix) 40 mg PO DAILY [facility] Cefepime HCl (Maxipime Iv 2 Gm Premix) 2 gm in 100 mls @ 200 mls/hr IVPB Q12H [facility] Stop: 10/30/16 12:31 Last Admin: 10/25/16 13:00 Dose: 200 mls/hr Insulin Aspart (Novolog) 0 unit SC ACHS [facility] PRN Reason: Protocol Last Admin: 10/25/16 09:09 Dose: 2 unit Insulin Detemir (Levemir) 50 unit SC HS [facility] Last Admin: 10/24/16 22:11 Dose: 50 unit Insulin Human Isoph/Insulin Regular (Novolin 70/30 (70/30 Units/Ml) 10 Ml) 20 units SC BIDAC [facility] Last Admin: 10/25/16 09:08 Dose: 20 units Linezolid (Zyvox) 600 mg PO BID [facility] Last Admin: 10/25/16 09:05 Dose: 600 mg Methylprednisolone (Solu-Medrol) 20 mg IVP DAILY [facility] Last Admin: 10/25/16 09:04 Dose: 20 mg Ofloxacin (Floxin 0.3% Otic Soln) 0.5 ml AU BID [facility] Last Admin: 10/25/16 09:08 Dose: 1 drop Rosuvastatin Calcium (Crestor) 20 mg PO HS [facility] Last Admin: 10/24/16 22:11 Dose: 20 mg Voriconazole (Vfend 200 Mg Tab) 200 mg PO Q12H [facility] Last Admin: 10/25/16 11:00 Dose: 200 mg - Labs Labs: 10/25/16 06:24 10/25/16 06:24 - Constitutional Appears: Non-toxic, No Acute Distress (obese) - Head Exam Head Exam: NORMAL INSPECTION - Eye Exam Eye Exam: Normal appearance - ENT Exam ENT Exam: Mucous Membranes Moist, Normal Exam - Neck Exam Neck Exam: Normal Inspection - Respiratory Exam Respiratory Exam: Decreased Breath Sounds, NORMAL BREATHING PATTERN - Cardiovascular Exam Cardiovascular Exam: REGULAR RHYTHM, RRR - GI/Abdominal Exam GI & Abdominal Exam: Distended, Soft, Hypoactive Bowel Sounds - Extremities Exam Extremities Exam: Normal Inspection, Pedal Edema (1+) Assessment and Plan (1) Acute kidney injury Status: Acute (2) CHF (congestive heart failure) Status: Acute (3) CKD stage 3 due to type 2 diabetes mellitus Status: Acute (4) Otitis externa of right ear Status: Acute (5) Type 2 diabetes mellitus with diabetic nephropathy Status: Acute (6) Hyperkalemia Status: Acute - Assessment and Plan (Free Text) Assessment: lower lasix to once daily recommend bipap at night daily chems
--- NOTE | 2016-10-25 15:04 | CP.PCM.PN ---
Subjective - Date & Time of Evaluation Date of Evaluation: 10/25/16 Time of Evaluation: 15:00 - Subjective Subjective: PROGRESS NOTE FOR REQUEST FOR HOME OXYGEN/TRILOGY MACHINE: PT HAD DURING THIS ADMISSION ACUTE RESPIRATORY DISTRESS SYNDROME, RESPIRATORY FAILURE, HYPOCAPNIA SECONDARY TO SEVERE COPD. PT REQUIRES TRILOGY VENTILATION. ANY INTERRUPTION IN VENTILATION WILL CAUSE A LIFE THREATENING EVENT WHICH MAY LEAD TO . PT DID NOT TOLERATE BIPAP DUE TO BREATH STACKING. TRILOGY HAS A BACKUP BATTERY IN CASE OF POWER FAILURE. ALSO, TRILOGY MACHINE HAS AN ALARM SYSTEM THAT WILL WAKE THE PT. ON BIPAP, PT'S pCO2 WAS BETWEEN 49-70 AND IT IS STILL ELEVATED. THIS WILL INCREASE IF NOT ON NON-INVASIVE VENTILATION. IT IS RECOMMENDED THAT PT CONTINUES NON-INVASIVE VENTILATION WITH TRILOGY. IT HAS BEEN DISCUSSED WITH THE PT AND AT BEDSIDE; TREATMENT OF HYPOCAPNIA, RESPIRATORY FAILURE AND SEVERE COPD WITH NON-INVASIVE VENTILATION HAS BEEN EXPLAINED. PT AND BOTH IN AGREEMENT TO THE TREATMENT. END NOTE. Objective - Vital Signs/Intake and Output Vital Signs (last 24 hours): Temp Pulse Resp BP Pulse Ox 98.1 F 84 18 139/72 96 10/25/16 08:30 10/25/16 08:30 10/25/16 08:30 10/25/16 09:06 10/25/16 08:30 Intake and Output: 10/25/16 10/25/16 06:59 18:59 Intake Total 480 0 Output Total 950 100 Balance -470 -100 - Medications Medications: Current Medications Albuterol/Ipratropium (Duoneb 3 Mg/0.5 Mg (3 Ml) Ud) 3 ml INH RQ6 [facility] Amlodipine Besylate (Norvasc) 5 mg PO DAILY [facility] Apixaban (Eliquis) 5 mg PO BID [facility] Aspirin (Aspirin Chewable) 81 mg PO DAILY [facility] Famotidine (Pepcid) 20 mg PO DAILY [facility] Furosemide (Lasix) 40 mg PO DAILY [facility] Cefepime HCl (Maxipime Iv 2 Gm Premix) 2 gm in 100 mls @ 200 mls/hr IVPB Q12H [facility] Stop: 10/31/16 00:31 Insulin Aspart (Novolog) 0 unit SC ACHS [facility] PRN Reason: Protocol Insulin Detemir (Levemir) 50 unit SC HS [facility] Insulin Human Isoph/Insulin Regular (Novolin 70/30 (70/30 Units/Ml) 10 Ml) 20 units SC BIDAC [facility] Linezolid (Zyvox) 600 mg PO BID [facility] Methylprednisolone (Solu-Medrol) 20 mg IVP DAILY [facility] Ofloxacin (Floxin 0.3% Otic Soln) 0.5 ml AU BID [facility] Rosuvastatin Calcium (Crestor) 20 mg PO HS [facility] Voriconazole (Vfend 200 Mg Tab) 200 mg PO Q12H [facility] - Labs Labs: 10/25/16 06:24 10/25/16 06:24
--- NOTE | 2016-10-25 16:09 | CP.PCM.PN ---
Subjective - Date & Time of Evaluation Date of Evaluation: 10/25/16 Time of Evaluation: 10:00 - Subjective Subjective: PT SEEN ON TELE FLOOR; TRANSFERRED OUT OF ICU. HAS BIPAP MACHINE AT BEDSIDE. PT WILL NEED TRILOGY MACHINE AT HOME UPON DISCHARGE (FAILED BIPAP, ELEVATED pCO2 CONSISTENTLY WITH BIPAP) FOR NON-INVASIVE VENTILATION. RECENT ARDS AND ELEVATED pCO2 IN ABGS. PT STILL SOB AT REST BUT MUCH IMPROVED. [employer] DISCUSSED THIS WITH PT AND AT BEDSIDE IN DEPTH. DR. ROBERTS IN AGREEMENT WITH PLAN. CM AND [employer] TO MAKE ARRANGEMENTS FOR HOME VENTILATION. NO FURTHER ORDERS, Objective - Vital Signs/Intake and Output Vital Signs (last 24 hours): Temp Pulse Resp BP Pulse Ox 98.2 F 78 20 153/88 H 98 10/25/16 15:40 10/25/16 15:40 10/25/16 15:40 10/25/16 15:40 10/25/16 15:40 Intake and Output: 10/25/16 10/25/16 06:59 18:59 Intake Total 480 0 Output Total 950 100 Balance -470 -100 - Medications Medications: Current Medications Albuterol/Ipratropium (Duoneb 3 Mg/0.5 Mg (3 Ml) Ud) 3 ml INH RQ6 [facility] Amlodipine Besylate (Norvasc) 5 mg PO DAILY [facility] Apixaban (Eliquis) 5 mg PO BID [facility] Aspirin (Aspirin Chewable) 81 mg PO DAILY [facility] Famotidine (Pepcid) 20 mg PO DAILY [facility] Furosemide (Lasix) 40 mg PO DAILY [facility] Cefepime HCl (Maxipime Iv 2 Gm Premix) 2 gm in 100 mls @ 200 mls/hr IVPB Q12H [facility] Stop: 10/31/16 00:31 Insulin Aspart (Novolog) 0 unit SC ACHS [facility] PRN Reason: Protocol Insulin Detemir (Levemir) 50 unit SC HS [facility] Insulin Human Isoph/Insulin Regular (Novolin 70/30 (70/30 Units/Ml) 10 Ml) 20 units SC BIDAC [facility] Linezolid (Zyvox) 600 mg PO BID [facility] Methylprednisolone (Solu-Medrol) 20 mg IVP DAILY [facility] Ofloxacin (Floxin 0.3% Otic Soln) 0.5 ml AU BID [facility] Rosuvastatin Calcium (Crestor) 20 mg PO HS [facility] Voriconazole (Vfend 200 Mg Tab) 200 mg PO Q12H [facility] - Labs Labs: 10/25/16 06:24 10/25/16 06:24
[2016-10-25] MEDS: Insulin Detemir 100 units/ml Vial (Levemir) SC SCH (22:28)
[2016-10-26] MEDS: Cefepime IV 2 gm in Dextrose 2 GM/100 ML BAG IVPB SCH ×2 (00:23→12:09)
[2016-10-26] MEDS: Albuterol-Ipratrop 3 mg / 0.5 (3 ml) UD INH SCH ×4 (01:02→19:22)
[2016-10-26 07:04] LABS: BILIRUBIN,TOTAL 0.6 mg/dL (0.2-1.3); CALCIUM 8.7 mg/dl (8.6-10.4); POTASSIUM 4.8 mmol/L (3.6-5.2); TOTAL PROTEIN 5.9 g/dL (6.3-8.3)
[2016-10-26 07:33] LABS: BASO # 0.1 K/uL (0.0-0.2); BASO % 0.4 % (0.0-2.0); EOS % 0.1 % (0.0-4.0); HEMATOCRIT 43.4 % (35.0-51.0); LYMPH # 2.2 K/uL (1.0-4.3); LYMPH % 7.4 % (20.0-40.0); MEAN CELL VOLUME 87.2 fL (80.0-94.0); MEAN CORPUSCULAR HEMOGLOBIN 28.5 pg (27.0-31.0); MEAN CORPUSCULAR HGB CONC 32.7 g/dL (33.0-37.0); MEAN PLATELET VOLUME 11.3 fL (7.2-11.7); MONO % 6.6 % (0.0-10.0); PLATELET COUNT 253 K/uL (130-400); RED CELL DISTRIBUTION WIDTH 14.3 % (11.5-14.5)
[2016-10-26] MEDS: (Novolog) Insulin Aspart, Recombinant 100 u/ml 10 ml vial SC SCH ×4 (07:47→22:25)
[2016-10-26] MEDS: (Novolin 70/30) NPH/Regular 70/30 Units/ml 10 ml vial SC SCH ×2 (07:47→18:10)
[2016-10-26 09:18] LABS: NEUTROPHIL 89 % (50-75); TOTAL CELLS COUNTED 100
[2016-10-26] MEDS: Ciprofloxacin 200mg/100ml D5W 100 ML IVPB SCH ×2 (09:30→21:12)
[2016-10-26] MEDS: Ofloxacin 0.3% Otic Soln AU SCH ×2 (09:32→18:23)
[2016-10-26] MEDS ORDERED: MethylPREDNISolone 40 mg Vial IVP SCH (10:00)
--- NOTE | 2016-10-26 13:25 | RAD ---
HISTORY: PNA COMPARISON: Chest x-ray performed 10/23/16 TECHNIQUE: Chest, one view. FINDINGS: Examination limited by habitus. LUNGS: Prominent diffuse interstitial markings may reflect infection or edema. Please note that chest x-ray has limited sensitivity for the detection of pulmonary masses. PLEURA: No significant pleural effusion identified. No definite pneumothorax . CARDIOVASCULAR: Cardiomegaly. OSSEOUS STRUCTURES: No acute osseous abnormality identified. VISUALIZED UPPER ABDOMEN: Unremarkable. OTHER FINDINGS: None. IMPRESSION: Prominent diffuse interstitial markings may reflect infection or edema. Appearance stable to minimally decreased in extent as compared to most recent prior study. Cardiomegaly.
--- NOTE | 2016-10-26 14:08 | CP.PCM.PN ---
Subjective - Date & Time of Evaluation Date of Evaluation: 10/26/16 Time of Evaluation: 14:05 - Subjective Subjective: Remains on trilogy machine Appears more comfortable Creat stable at 1.6 UO not recorded No new complaint Objective - Vital Signs/Intake and Output Vital Signs (last 24 hours): Temp Pulse Resp BP Pulse Ox 97.6 F 88 20 130/84 95 10/26/16 08:32 10/26/16 10:30 10/26/16 12:30 10/26/16 09:32 10/26/16 10:30 Intake and Output: 10/26/16 10/26/16 06:59 18:59 Intake Total 200 Balance 200 - Medications Medications: Current Medications Albuterol/Ipratropium (Duoneb 3 Mg/0.5 Mg (3 Ml) Ud) 3 ml INH RQ6 [facility] Last Admin: 10/26/16 13:40 Dose: 3 ml Amlodipine Besylate (Norvasc) 5 mg PO DAILY [facility] Last Admin: 10/26/16 09:32 Dose: 5 mg Apixaban (Eliquis) 5 mg PO BID [facility] Last Admin: 10/26/16 09:31 Dose: 5 mg Aspirin (Aspirin Chewable) 81 mg PO DAILY [facility] Last Admin: 10/26/16 09:30 Dose: 81 mg Famotidine (Pepcid) 20 mg PO DAILY [facility] Last Admin: 10/26/16 09:33 Dose: 20 mg Furosemide (Lasix) 40 mg PO Q12 [facility] Last Admin: 10/26/16 09:32 Dose: 40 mg Cefepime HCl (Maxipime Iv 2 Gm Premix) 2 gm in 100 mls @ 200 mls/hr IVPB Q12H [facility] Stop: 10/31/16 00:31 Last Admin: 10/26/16 12:09 Dose: 200 mls/hr Ciprofloxacin (Cipro 200mg/100ml D5w) 100 mls @ 100 mls/hr IVPB Q12H [facility] Last Admin: 10/26/16 09:30 Dose: 100 mls/hr Insulin Aspart (Novolog) 0 unit SC ACHS [facility] PRN Reason: Protocol Last Admin: 10/26/16 12:09 Dose: 6 unit Insulin Detemir (Levemir) 50 unit SC HS [facility] Last Admin: 10/25/16 22:28 Dose: 50 unit Insulin Human Isoph/Insulin Regular (Novolin 70/30 (70/30 Units/Ml) 10 Ml) 20 units SC BIDAC [facility] Last Admin: 10/26/16 07:47 Dose: 20 units Linezolid (Zyvox) 600 mg PO BID [facility] Last Admin: 10/26/16 09:33 Dose: 600 mg Ofloxacin (Floxin 0.3% Otic Soln) 0.5 ml AU BID [facility] Last Admin: 10/26/16 09:32 Dose: 2 drop Rosuvastatin Calcium (Crestor) 20 mg PO HS [facility] Last Admin: 10/25/16 22:30 Dose: 20 mg - Labs Labs: 10/26/16 06:10 10/26/16 06:10 - Constitutional Appears: In Acute Distress, Chronically Ill - Head Exam Head Exam: ATRAUMATIC, NORMAL INSPECTION - Eye Exam Eye Exam: EOMI, Normal appearance - Neck Exam Neck Exam: Normal Inspection. absent: Tenderness - Respiratory Exam Respiratory Exam: Rhonchi, Respiratory Distress - Cardiovascular Exam Cardiovascular Exam: REGULAR RHYTHM, +S1 - GI/Abdominal Exam GI & Abdominal Exam: Soft. absent: Tenderness - Extremities Exam Extremities Exam: Pedal Edema. absent: Tenderness - Neurological Exam Neurological Exam: CN II-XII Intact, Oriented x3 - Skin Skin Exam: Dry, Warm Assessment and Plan (1) CKD stage 3 due to type 2 diabetes mellitus Status: Acute (2) Type 2 diabetes mellitus with diabetic nephropathy Status: Acute (3) Asthma exacerbation Status: Acute (4) Proteinuria due to type 2 diabetes mellitus Status: Acute (5) HTN (hypertension) Status: Chronic (6) Fluid overload Status: Acute - Assessment and Plan (Free Text) Plan: Recheck chemistries Continue IV lasix Check protein excretion rate
--- NOTE | 2016-10-26 17:42 | CP.PCM.PN ---
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 but still hypoxic ct shows mastoid air cells fluid filled- no definite osseous destruction has no pain refusing to stay for biopsy of kidney/ lung needs ent eval, cont antifungal rx as well as antipseudomonal rx poor prognosis Objective - Vital Signs/Intake and Output Vital Signs (last 24 hours): Temp Pulse Resp BP Pulse Ox 98.6 F 87 20 139/79 97 10/26/16 17:24 10/26/16 17:24 10/26/16 17:24 10/26/16 17:24 10/26/16 17:24 Intake and Output: 10/26/16 10/26/16 06:59 18:59 Intake Total 200 Balance 200 - Medications Medications: Current Medications Albuterol/Ipratropium (Duoneb 3 Mg/0.5 Mg (3 Ml) Ud) 3 ml INH RQ6 [facility] Last Admin: 10/26/16 13:40 Dose: 3 ml Amlodipine Besylate (Norvasc) 5 mg PO DAILY [facility] Last Admin: 10/26/16 09:32 Dose: 5 mg Apixaban (Eliquis) 5 mg PO BID [facility] Last Admin: 10/26/16 09:31 Dose: 5 mg Aspirin (Aspirin Chewable) 81 mg PO DAILY [facility] Last Admin: 10/26/16 09:30 Dose: 81 mg Famotidine (Pepcid) 20 mg PO DAILY [facility] Last Admin: 10/26/16 09:33 Dose: 20 mg Furosemide (Lasix) 40 mg PO Q12 [facility] Last Admin: 10/26/16 09:32 Dose: 40 mg Cefepime HCl (Maxipime Iv 2 Gm Premix) 2 gm in 100 mls @ 200 mls/hr IVPB Q12H [facility] Stop: 10/31/16 00:31 Last Admin: 10/26/16 12:09 Dose: 200 mls/hr Ciprofloxacin (Cipro 200mg/100ml D5w) 100 mls @ 100 mls/hr IVPB Q12H [facility] Last Admin: 10/26/16 09:30 Dose: 100 mls/hr Insulin Aspart (Novolog) 0 unit SC ACHS [facility] PRN Reason: Protocol Last Admin: 10/26/16 12:09 Dose: 6 unit Insulin Detemir (Levemir) 50 unit SC HS [facility] Last Admin: 10/25/16 22:28 Dose: 50 unit Insulin Human Isoph/Insulin Regular (Novolin 70/30 (70/30 Units/Ml) 10 Ml) 20 units SC BIDAC [facility] Last Admin: 10/26/16 07:47 Dose: 20 units Linezolid (Zyvox) 600 mg PO BID [facility] Last Admin: 10/26/16 09:33 Dose: 600 mg Ofloxacin (Floxin 0.3% Otic Soln) 0.5 ml AU BID [facility] Last Admin: 10/26/16 09:32 Dose: 2 drop Rosuvastatin Calcium (Crestor) 20 mg PO HS [facility] Last Admin: 10/25/16 22:30 Dose: 20 mg - Labs Labs: 10/26/16 06:10 10/26/16 06:10 - Constitutional Appears: Non-toxic, Chronically Ill - Head Exam Head Exam: NORMOCEPHALIC - Eye Exam Eye Exam: PERRL - ENT Exam ENT Exam: Mucous Membranes Dry, Normal External Ear Exam - Neck Exam Neck Exam: absent: Lymphadenopathy - Respiratory Exam Respiratory Exam: Decreased Breath Sounds, Rhonchi - Cardiovascular Exam Cardiovascular Exam: REGULAR RHYTHM - GI/Abdominal Exam GI & Abdominal Exam: Distended, Soft - Rectal Exam Rectal Exam: Deferred - Exam Exam: NORMAL INSPECTION Assessment and Plan (1) ARDS (adult respiratory distress syndrome) Status: Acute (2) Acute kidney injury Status: Acute (3) Asthma exacerbation Status: Acute (4) CHF (congestive heart failure) Status: Acute (5) CKD (chronic kidney disease) Status: Acute (6) Otitis externa of right ear Status: Acute (7) Renal failure Status: Acute
[2016-10-26 20:28] LABS: IGG SUCLASS 4 30.7 mg/dL (4-86)
[2016-10-26] MEDS: Insulin Detemir 100 units/ml Vial (Levemir) SC SCH (22:25)
--- NOTE | 2016-10-26 23:35 | CP.PCM.PN ---
Subjective - Date & Time of Evaluation Date of Evaluation: 10/26/16 Time of Evaluation: 23:34 - Subjective Subjective: Patient's FiO2 is 40%. Saturation is 97. But without oxygen percent saturation is very low. But he is not in any distress. Cough is very less now. Patient is ambulatory to Vital signs reviewed No neck vein distention noted Chest good air entry bilaterally, no wheezing or rales noted CVS regular heart sound, no murmur noted Abdomen soft, nontender. Extremities no pedal edema [employer] alert awake oriented 3, no functional neurological deficit Blood sugar is elevated. Sputum culture showing evidence of Pseudomonas Added ciprofloxacin. Monitor the renal function. Objective - Vital Signs/Intake and Output Vital Signs (last 24 hours): Temp Pulse Resp BP Pulse Ox 98.6 F 87 20 144/82 97 10/26/16 17:24 10/26/16 17:24 10/26/16 22:25 10/26/16 21:14 10/26/16 17:24 - Medications Medications: Current Medications Albuterol/Ipratropium (Duoneb 3 Mg/0.5 Mg (3 Ml) Ud) 3 ml INH RQ6 [facility] Last Admin: 10/26/16 19:22 Dose: 3 ml Amlodipine Besylate (Norvasc) 5 mg PO DAILY [facility] Last Admin: 10/26/16 09:32 Dose: 5 mg Apixaban (Eliquis) 5 mg PO BID [facility] Last Admin: 10/26/16 18:22 Dose: 5 mg Aspirin (Aspirin Chewable) 81 mg PO DAILY [facility] Last Admin: 10/26/16 09:30 Dose: 81 mg Famotidine (Pepcid) 20 mg PO DAILY [facility] Last Admin: 10/26/16 09:33 Dose: 20 mg Furosemide (Lasix) 40 mg PO Q12 [facility] Last Admin: 10/26/16 21:14 Dose: 40 mg Cefepime HCl (Maxipime Iv 2 Gm Premix) 2 gm in 100 mls @ 200 mls/hr IVPB Q12H [facility] Stop: 10/31/16 00:31 Last Admin: 10/26/16 12:09 Dose: 200 mls/hr Ciprofloxacin (Cipro 200mg/100ml D5w) 100 mls @ 100 mls/hr IVPB Q12H [facility] Last Admin: 10/26/16 21:12 Dose: 100 mls/hr Insulin Aspart (Novolog) 0 unit SC ACHS [facility] PRN Reason: Protocol Last Admin: 10/26/16 22:25 Dose: 2 unit Insulin Detemir (Levemir) 50 unit SC [facility] Last Admin: 10/26/16 22:25 Dose: 50 unit Insulin Human Isoph/Insulin Regular (Novolin 70/30 (70/30 Units/Ml) 10 Ml) 20 units SC BIDAC [facility] Last Admin: 10/26/16 18:10 Dose: 20 units Linezolid (Zyvox) 600 mg PO BID [facility] Last Admin: 10/26/16 18:24 Dose: 600 mg Ofloxacin (Floxin 0.3% Otic Soln) 0.5 ml AU BID [facility] Last Admin: 10/26/16 18:23 Dose: 2 drop Rosuvastatin Calcium (Crestor) 20 mg PO HS [facility] Last Admin: 10/26/16 21:13 Dose: 20 mg - Labs Labs: 10/26/16 06:10 10/26/16 06:10
[2016-10-27] MEDS: Cefepime IV 2 gm in Dextrose 2 GM/100 ML BAG IVPB SCH ×2 (00:23→12:15)
[2016-10-27] MEDS: Albuterol-Ipratrop 3 mg / 0.5 (3 ml) UD INH SCH ×4 (01:16→19:14)
[2016-10-27] MEDS: (Novolog) Insulin Aspart, Recombinant 100 u/ml 10 ml vial SC SCH ×4 (07:30→21:53)
[2016-10-27] MEDS: (Novolin 70/30) NPH/Regular 70/30 Units/ml 10 ml vial SC SCH ×2 (07:45→17:28)
[2016-10-27 08:45] LABS: ALB/GLOB RATIO 0.9 (1.0-2.1); BILIRUBIN,TOTAL 0.9 mg/dL (0.2-1.3); CALCIUM 8.5 mg/dl (8.6-10.4); PHOSPHOROUS 3.5 mg/dL (2.5-4.5); POTASSIUM 4.1 mmol/L (3.6-5.2); TOTAL PROTEIN 6.2 g/dL (6.3-8.3)
[2016-10-27] MEDS: Ciprofloxacin 200mg/100ml D5W 100 ML IVPB SCH ×2 (09:00→21:52)
[2016-10-27] MEDS: Ofloxacin 0.3% Otic Soln AU SCH ×2 (09:44→17:29)
--- NOTE | 2016-10-27 10:19 | CP.PCM.PN ---
Subjective - Date & Time of Evaluation Date of Evaluation: 10/27/16 Time of Evaluation: 10:16 - Subjective Subjective: Less dyspneic Good UO with oral lasix Creat stable at 1.6- likely baseline Urine protein excretion rate test in progress No n, v, diarrhea, CPs Objective - Vital Signs/Intake and Output Vital Signs (last 24 hours): Temp Pulse Resp BP Pulse Ox 98.2 F 79 20 129/72 97 10/27/16 08:49 10/27/16 08:49 10/27/16 08:49 10/27/16 09:46 10/27/16 08:49 Intake and Output: 10/27/16 10/27/16 06:59 18:59 Intake Total 200 Output Total 1225 Balance -1025 - Medications Medications: Current Medications Albuterol/Ipratropium (Duoneb 3 Mg/0.5 Mg (3 Ml) Ud) 3 ml INH RQ6 [facility] Last Admin: 10/27/16 07:51 Dose: 3 ml Amlodipine Besylate (Norvasc) 5 mg PO DAILY [facility] Last Admin: 10/27/16 09:45 Dose: 5 mg Apixaban (Eliquis) 5 mg PO BID [facility] Last Admin: 10/27/16 09:46 Dose: 5 mg Aspirin (Aspirin Chewable) 81 mg PO DAILY [facility] Last Admin: 10/27/16 09:43 Dose: 81 mg Famotidine (Pepcid) 20 mg PO DAILY [facility] Last Admin: 10/27/16 09:43 Dose: 20 mg Furosemide (Lasix) 40 mg PO Q12 [facility] Last Admin: 10/27/16 09:46 Dose: 40 mg Cefepime HCl (Maxipime Iv 2 Gm Premix) 2 gm in 100 mls @ 200 mls/hr IVPB Q12H [facility] Stop: 10/31/16 00:31 Last Admin: 10/27/16 00:23 Dose: 200 mls/hr Ciprofloxacin (Cipro 200mg/100ml D5w) 100 mls @ 100 mls/hr IVPB Q12H [facility] Last Admin: 10/27/16 09:00 Dose: 100 mls/hr Insulin Aspart (Novolog) 0 unit SC ACHS [facility] PRN Reason: Protocol Last Admin: 10/27/16 07:30 Dose: Not Given Insulin Detemir (Levemir) 50 unit SC HS [facility] Last Admin: 10/26/16 22:25 Dose: 50 unit Insulin Human Isoph/Insulin Regular (Novolin 70/30 (70/30 Units/Ml) 10 Ml) 20 units SC BIDAC [facility] Last Admin: 10/27/16 07:45 Dose: 20 units Linezolid (Zyvox) 600 mg PO BID [facility] Last Admin: 10/27/16 09:43 Dose: 600 mg Ofloxacin (Floxin 0.3% Otic Soln) 0.5 ml AU BID [facility] Last Admin: 10/27/16 09:44 Dose: 1 drop Prednisone (Prednisone Tab) 20 mg PO DAILY [facility] Last Admin: 10/27/16 09:43 Dose: 20 mg Rosuvastatin Calcium (Crestor) 20 mg PO [facility] Last Admin: 10/26/16 21:13 Dose: 20 mg - Labs Labs: 10/26/16 06:10 10/27/16 07:33 - Constitutional Appears: No Acute Distress, Chronically Ill - Head Exam Head Exam: ATRAUMATIC, NORMAL INSPECTION - Eye Exam Eye Exam: EOMI, Normal appearance - Neck Exam Neck Exam: Normal Inspection. absent: Tenderness - Respiratory Exam Respiratory Exam: Clear to Ausculation Bilateral, NORMAL BREATHING PATTERN - Cardiovascular Exam Cardiovascular Exam: REGULAR RHYTHM, +S1 - GI/Abdominal Exam GI & Abdominal Exam: Soft. absent: Tenderness - Extremities Exam Extremities Exam: Pedal Edema. absent: Tenderness - Neurological Exam Neurological Exam: Alert, CN II-XII Intact - Skin Skin Exam: Dry, Warm Assessment and Plan (1) CKD stage 3 due to type 2 diabetes mellitus Status: Acute (2) Type 2 diabetes mellitus with diabetic nephropathy Status: Acute (3) Asthma exacerbation Status: Acute (4) Proteinuria due to type 2 diabetes mellitus Status: Acute (5) HTN (hypertension) Status: Chronic (6) Fluid overload Status: Acute - Assessment and Plan (Free Text) Plan: Continue oral lasix Pulm treatment Check protein excretion rate
--- NOTE | 2016-10-27 17:44 | CP.PCM.PN ---
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 improving but still hypoxic ct shows mastoid air cells fluid filled- no definite osseous destruction has no pain refusing to stay for biopsy of kidney/ lung needs ent eval, cont antifungal rx as well as antipseudomonal rx Objective - Vital Signs/Intake and Output Vital Signs (last 24 hours): Temp Pulse Resp BP Pulse Ox 98.2 F 79 22 129/72 97 10/27/16 08:49 10/27/16 08:49 10/27/16 16:13 10/27/16 09:46 10/27/16 08:49 Intake and Output: 10/27/16 10/27/16 06:59 18:59 Intake Total 200 Output Total 1225 Balance -1025 - Medications Medications: Current Medications Albuterol/Ipratropium (Duoneb 3 Mg/0.5 Mg (3 Ml) Ud) 3 ml INH RQ6 [facility] Last Admin: 10/27/16 13:33 Dose: 3 ml Amlodipine Besylate (Norvasc) 5 mg PO DAILY [facility] Last Admin: 10/27/16 09:45 Dose: 5 mg Apixaban (Eliquis) 5 mg PO BID [facility] Last Admin: 10/27/16 17:28 Dose: 5 mg Aspirin (Aspirin Chewable) 81 mg PO DAILY [facility] Last Admin: 10/27/16 09:43 Dose: 81 mg Famotidine (Pepcid) 20 mg PO DAILY [facility] Last Admin: 10/27/16 09:43 Dose: 20 mg Furosemide (Lasix) 40 mg PO Q12 [facility] Last Admin: 10/27/16 09:46 Dose: 40 mg Cefepime HCl (Maxipime Iv 2 Gm Premix) 2 gm in 100 mls @ 200 mls/hr IVPB Q12H [facility] Stop: 10/31/16 00:31 Last Admin: 10/27/16 12:15 Dose: 200 mls/hr Ciprofloxacin (Cipro 200mg/100ml D5w) 100 mls @ 100 mls/hr IVPB Q12H [facility] Last Admin: 10/27/16 09:00 Dose: 100 mls/hr Insulin Aspart (Novolog) 0 unit SC ACHS [facility] PRN Reason: Protocol Last Admin: 10/27/16 17:28 Dose: 4 unit Insulin Detemir (Levemir) 50 unit SC HS [facility] Last Admin: 10/26/16 22:25 Dose: 50 unit Insulin Human Isoph/Insulin Regular (Novolin 70/30 (70/30 Units/Ml) 10 Ml) 20 units SC BIDAC [facility] Last Admin: 10/27/16 17:28 Dose: 20 units Linezolid (Zyvox) 600 mg PO BID [facility] Last Admin: 10/27/16 17:28 Dose: 600 mg Ofloxacin (Floxin 0.3% Otic Soln) 0.5 ml AU BID [facility] Last Admin: 10/27/16 17:29 Dose: 2 drop Prednisone (Prednisone Tab) 20 mg PO DAILY [facility] Last Admin: 10/27/16 09:43 Dose: 20 mg Rosuvastatin Calcium (Crestor) 20 mg PO [facility] Last Admin: 10/26/16 21:13 Dose: 20 mg - Labs Labs: 10/26/16 06:10 10/27/16 07:33 - Constitutional Appears: Non-toxic, Chronically Ill - Head Exam Head Exam: NORMOCEPHALIC - Eye Exam Eye Exam: PERRL - ENT Exam ENT Exam: Mucous Membranes Dry - Neck Exam Neck Exam: absent: Lymphadenopathy - Respiratory Exam Respiratory Exam: Decreased Breath Sounds, Rhonchi - Cardiovascular Exam Cardiovascular Exam: REGULAR RHYTHM - GI/Abdominal Exam GI & Abdominal Exam: Distended, Soft - Rectal Exam Rectal Exam: Deferred - Exam Exam: NORMAL INSPECTION Assessment and Plan (1) ARDS (adult respiratory distress syndrome) Status: Acute (2) Acute kidney injury Status: Acute (3) Asthma exacerbation Status: Acute (4) CHF (congestive heart failure) Status: Acute (5) CKD (chronic kidney disease) Status: Acute (6) Otitis externa of right ear Status: Acute (7) Renal failure Status: Acute
[2016-10-27] MEDS: Insulin Detemir 100 units/ml Vial (Levemir) SC SCH (21:52)
[2016-10-28] MEDS: Cefepime IV 2 gm in Dextrose 2 GM/100 ML BAG IVPB SCH ×3 (00:37→23:50)
[2016-10-28] MEDS: Albuterol-Ipratrop 3 mg / 0.5 (3 ml) UD INH SCH ×4 (01:08→19:10)
[2016-10-28] MEDS: (Novolin 70/30) NPH/Regular 70/30 Units/ml 10 ml vial SC SCH ×2 (08:07→18:18)
[2016-10-28] MEDS: (Novolog) Insulin Aspart, Recombinant 100 u/ml 10 ml vial SC SCH ×4 (08:08→21:26)
[2016-10-28] MEDS: Ciprofloxacin 200mg/100ml D5W 100 ML IVPB SCH ×2 (09:00→21:06)
[2016-10-28] MEDS: Ofloxacin 0.3% Otic Soln AU SCH ×2 (09:05→18:18)
[2016-10-28 11:00] LABS: BASO # 0.1 K/uL (0.0-0.2); BASO % 0.3 % (0.0-2.0); EOS # 0.9 K/uL (0.0-0.7); EOS % 3.5 % (0.0-4.0); HEMATOCRIT 43.6 % (35.0-51.0); LYMPH # 4.1 K/uL (1.0-4.3); LYMPH % 15.5 % (20.0-40.0); MEAN CELL VOLUME 86.3 fL (80.0-94.0); MEAN CORPUSCULAR HGB CONC 32.5 g/dL (33.0-37.0); MEAN PLATELET VOLUME 11.3 fL (7.2-11.7); MONO # 2.8 K/uL (0.0-0.8); MONO % 10.8 % (0.0-10.0); RED CELL DISTRIBUTION WIDTH 14.4 % (11.5-14.5); WHITE BLOOD COUNT 26.3 K/uL (4.8-10.8)
[2016-10-28 11:04] LABS: CHLORIDE 96 mmol/L (98-107); SODIUM 133 mmol/L (132-148)
[2016-10-28 11:06] LABS: GFR AFRICAN-AMERICAN > 60
[2016-10-28 11:07] LABS: ALKALINE PHOSPHATASE 161 U/L (38-126); ALT/SGPT 87 U/L (21-72); AST/SGOT 55 U/L (17-59); BLOOD UREA NITROGEN 57 mg/dL (9-20); CARBON DIOXIDE 30 mmol/L (22-30); GLUCOSE,RANDOM 214 mg/dL (75-110)
[2016-10-28 11:08] LABS: CALCIUM 8.3 mg/dl (8.6-10.4)
--- NOTE | 2016-10-28 14:20 | CP.PCM.PN ---
Subjective - Date & Time of Evaluation Date of Evaluation: 10/28/16 Time of Evaluation: 14:18 - Subjective Subjective: Dyspnea much better Urine protein excretion rate confirms nephrotic syndrome creat stable at 1.4 Will restart ARB agent Objective - Vital Signs/Intake and Output Vital Signs (last 24 hours): Temp Pulse Resp BP Pulse Ox 98.2 F 80 16 147/82 95 10/28/16 07:00 10/28/16 07:30 10/28/16 07:16 10/28/16 09:06 10/28/16 07:00 Intake and Output: 10/28/16 10/28/16 06:59 18:59 Intake Total 220 Output Total 300 Balance -80 - Medications Medications: Current Medications Albuterol/Ipratropium (Duoneb 3 Mg/0.5 Mg (3 Ml) Ud) 3 ml INH RQ6 [facility] Last Admin: 10/28/16 13:26 Dose: 3 ml Amlodipine Besylate (Norvasc) 5 mg PO DAILY [facility] Last Admin: 10/28/16 09:05 Dose: 5 mg Apixaban (Eliquis) 5 mg PO BID [facility] Last Admin: 10/28/16 09:05 Dose: 5 mg Aspirin (Aspirin Chewable) 81 mg PO DAILY [facility] Last Admin: 10/28/16 09:05 Dose: 81 mg Famotidine (Pepcid) 20 mg PO DAILY [facility] Last Admin: 10/28/16 09:05 Dose: 20 mg Furosemide (Lasix) 40 mg PO Q12 [facility] Last Admin: 10/28/16 09:06 Dose: 40 mg Cefepime HCl (Maxipime Iv 2 Gm Premix) 2 gm in 100 mls @ 200 mls/hr IVPB Q12H [facility] Stop: 10/31/16 00:31 Last Admin: 10/28/16 12:30 Dose: 200 mls/hr Ciprofloxacin (Cipro 200mg/100ml D5w) 100 mls @ 100 mls/hr IVPB Q12H [facility] Last Admin: 10/28/16 09:00 Dose: 100 mls/hr Insulin Aspart (Novolog) 0 unit SC ACHS [facility] PRN Reason: Protocol Last Admin: 10/28/16 12:00 Dose: 4 unit Insulin Detemir (Levemir) 50 unit SC HS [facility] Last Admin: 10/27/16 21:52 Dose: 50 unit Insulin Human Isoph/Insulin Regular (Novolin 70/30 (70/30 Units/Ml) 10 Ml) 20 units SC BIDAC [facility] Last Admin: 10/28/16 08:07 Dose: 20 units Linezolid (Zyvox) 600 mg PO BID [facility] Last Admin: 10/28/16 09:05 Dose: 600 mg Ofloxacin (Floxin 0.3% Otic Soln) 0.5 ml AU BID [facility] Last Admin: 10/28/16 09:05 Dose: 2 drop Prednisone (Prednisone Tab) 20 mg PO DAILY [facility] Last Admin: 10/28/16 09:06 Dose: 20 mg Rosuvastatin Calcium (Crestor) 20 mg PO HS [facility] Last Admin: 10/27/16 21:53 Dose: 20 mg - Labs Labs: 10/28/16 10:50 10/28/16 10:50 - Constitutional Appears: No Acute Distress, Chronically Ill - Head Exam Head Exam: ATRAUMATIC, NORMAL INSPECTION - Eye Exam Eye Exam: EOMI, Normal appearance - Neck Exam Neck Exam: Normal Inspection. absent: Tenderness - Respiratory Exam Respiratory Exam: Clear to Ausculation Bilateral, NORMAL BREATHING PATTERN - Cardiovascular Exam Cardiovascular Exam: REGULAR RHYTHM, +S1 - GI/Abdominal Exam GI & Abdominal Exam: Soft. absent: Tenderness - Extremities Exam Extremities Exam: Normal Inspection. absent: Tenderness - Neurological Exam Neurological Exam: Alert, CN II-XII Intact - Skin Skin Exam: Dry, Warm Assessment and Plan (1) CKD stage 3 due to type 2 diabetes mellitus Status: Acute (2) Type 2 diabetes mellitus with diabetic nephropathy Status: Acute (3) Asthma exacerbation Status: Acute (4) Proteinuria due to type 2 diabetes mellitus Status: Acute (5) HTN (hypertension) Status: Chronic (6) Fluid overload Status: Acute - Assessment and Plan (Free Text) Plan: Add losartan
--- NOTE | 2016-10-28 17:35 | CP.PCM.PN ---
Subjective - Date & Time of Evaluation Date of Evaluation: 10/28/16 Time of Evaluation: 06:00 - Subjective Subjective: events noted slow progress wbc at 26 K Objective - Vital Signs/Intake and Output Vital Signs (last 24 hours): Temp Pulse Resp BP Pulse Ox 98.1 F 96 H 20 134/81 97 10/28/16 16:00 10/28/16 16:00 10/28/16 16:00 10/28/16 16:00 10/28/16 16:00 Intake and Output: 10/28/16 10/28/16 06:59 18:59 Intake Total 220 Output Total 300 Balance -80 - Medications Medications: Current Medications Albuterol/Ipratropium (Duoneb 3 Mg/0.5 Mg (3 Ml) Ud) 3 ml INH RQ6 [facility] Last Admin: 10/28/16 13:26 Dose: 3 ml Amlodipine Besylate (Norvasc) 5 mg PO DAILY [facility] Last Admin: 10/28/16 09:05 Dose: 5 mg Apixaban (Eliquis) 5 mg PO BID [facility] Last Admin: 10/28/16 09:05 Dose: 5 mg Aspirin (Aspirin Chewable) 81 mg PO DAILY [facility] Last Admin: 10/28/16 09:05 Dose: 81 mg Famotidine (Pepcid) 20 mg PO DAILY [facility] Last Admin: 10/28/16 09:05 Dose: 20 mg Furosemide (Lasix) 40 mg PO Q12 [facility] Last Admin: 10/28/16 09:06 Dose: 40 mg Cefepime HCl (Maxipime Iv 2 Gm Premix) 2 gm in 100 mls @ 200 mls/hr IVPB Q12H [facility] Stop: 10/31/16 00:31 Last Admin: 10/28/16 12:30 Dose: 200 mls/hr Ciprofloxacin (Cipro 200mg/100ml D5w) 100 mls @ 100 mls/hr IVPB Q12H [facility] Last Admin: 10/28/16 09:00 Dose: 100 mls/hr Insulin Aspart (Novolog) 0 unit SC ACHS [facility] PRN Reason: Protocol Last Admin: 10/28/16 12:00 Dose: 4 unit Insulin Detemir (Levemir) 50 unit SC HS [facility] Last Admin: 10/27/16 21:52 Dose: 50 unit Insulin Human Isoph/Insulin Regular (Novolin 70/30 (70/30 Units/Ml) 10 Ml) 20 units SC BIDAC [facility] Last Admin: 10/28/16 08:07 Dose: 20 units Linezolid (Zyvox) 600 mg PO BID [facility] Last Admin: 10/28/16 09:05 Dose: 600 mg Losartan Potassium (Cozaar) 50 mg PO DAILY [facility] Last Admin: 10/28/16 14:50 Dose: 50 mg Ofloxacin (Floxin 0.3% Otic Soln) 0.5 ml AU BID [facility] Last Admin: 10/28/16 09:05 Dose: 2 drop Prednisone (Prednisone Tab) 20 mg PO DAILY [facility] Last Admin: 10/28/16 09:06 Dose: 20 mg Rosuvastatin Calcium (Crestor) 20 mg PO HS [facility] Last Admin: 10/27/16 21:53 Dose: 20 mg - Labs Labs: 10/28/16 10:50 10/28/16 10:50 - Constitutional Appears: Non-toxic, Chronically Ill - Head Exam Head Exam: NORMOCEPHALIC - Eye Exam Eye Exam: PERRL - ENT Exam ENT Exam: Mucous Membranes Dry - Neck Exam Neck Exam: absent: Lymphadenopathy - Respiratory Exam Respiratory Exam: Decreased Breath Sounds, Rhonchi Assessment and Plan (1) ARDS (adult respiratory distress syndrome) Status: Acute (2) Acute kidney injury Status: Acute (3) Asthma exacerbation Status: Acute (4) CHF (congestive heart failure) Status: Acute (5) CKD (chronic kidney disease) Status: Acute (6) Otitis externa of right ear Status: Acute (7) Renal failure Status: Acute
[2016-10-28] MEDS: Insulin Detemir 100 units/ml Vial (Levemir) SC SCH (21:05)
[2016-10-29] MEDS: Albuterol-Ipratrop 3 mg / 0.5 (3 ml) UD INH SCH ×4 (02:09→20:17)
[2016-10-29] MEDS: (Novolog) Insulin Aspart, Recombinant 100 u/ml 10 ml vial SC SCH ×4 (07:30→22:04)
[2016-10-29] MEDS: Ciprofloxacin 200mg/100ml D5W 100 ML IVPB SCH ×2 (09:00→21:01)
[2016-10-29] MEDS: Ofloxacin 0.3% Otic Soln AU SCH ×2 (09:13→17:50)
[2016-10-29] MEDS: (Novolin 70/30) NPH/Regular 70/30 Units/ml 10 ml vial SC SCH ×2 (09:15→17:51)
[2016-10-29] MEDS: Cefepime IV 2 gm in Dextrose 2 GM/100 ML BAG IVPB SCH ×2 (12:32→23:44)
--- NOTE | 2016-10-29 16:44 | PCM.HF ---
Heart Failure Core Measure - Heart Failure Ejection Fraction: 40 % or Greater BREANA Inhibitor Prescribed: No Contraindication/Reason for not providing: ARB Beta-Edenilson Prescribed: None Contraindication/Reason for not providing: COPD Angiotensin II Receptor Edenilosn Prescribed: Yes AnticoagulationTherapy for Atrial Fibrillation/Atrialflutter: Yes Aldosterone Antagonist Prescribed: No Contraindication/Reason for not providing: RENAL DISEASE; NEPHROTIC SYNDROME; EF > 50 Hydralazine Nitrate Prescribed: No Contraindication/Reason for not providing: RENAL DISEASE; NEPHROTIC SYNDROME; EF >50 Implantable Cardioverter Defibrillator Therapy: No Contraindication/Reason for not providing: EF >50 Cardiac Resynchronization Therapy Prescribed: No Contraindication/Reason for not providing: EF > 50 - Follow up Will be discharged to: Home Follow Up Date (must be within 7 days from discharge): 11/04/16 Follow Up Time: 09:00
[2016-10-29] MEDS: Insulin Detemir 100 units/ml Vial (Levemir) SC SCH (21:03)
[2016-10-30] MEDS: Albuterol-Ipratrop 3 mg / 0.5 (3 ml) UD INH SCH ×4 (01:21→19:52)
[2016-10-30] MEDS: (Novolog) Insulin Aspart, Recombinant 100 u/ml 10 ml vial SC SCH ×4 (07:30→22:16)
[2016-10-30] MEDS: Ciprofloxacin 200mg/100ml D5W 100 ML IVPB SCH ×2 (09:00→20:46)
[2016-10-30] MEDS: Ofloxacin 0.3% Otic Soln AU SCH ×2 (09:26→17:59)
[2016-10-30] MEDS: (Novolin 70/30) NPH/Regular 70/30 Units/ml 10 ml vial SC SCH ×2 (09:27→17:57)
[2016-10-30] MEDS: Cefepime IV 2 gm in Dextrose 2 GM/100 ML BAG IVPB SCH (12:20)
--- NOTE | 2016-10-30 13:18 | CP.PCM.PN ---
Subjective - Date & Time of Evaluation Date of Evaluation: 10/30/16 Time of Evaluation: 08:00 - Subjective Subjective: afebrile less sob nad Objective - Vital Signs/Intake and Output Vital Signs (last 24 hours): Temp Pulse Resp BP Pulse Ox 97.6 F 70 20 127/71 99 10/30/16 09:04 10/30/16 09:04 10/30/16 09:04 10/30/16 09:26 10/30/16 09:04 Intake and Output: 10/30/16 10/30/16 06:59 18:59 Intake Total 600 Balance 600 - Medications Medications: Current Medications Albuterol/Ipratropium (Duoneb 3 Mg/0.5 Mg (3 Ml) Ud) 3 ml INH RQ6 [facility] Last Admin: 10/30/16 07:58 Dose: 3 ml Amlodipine Besylate (Norvasc) 5 mg PO DAILY [facility] Last Admin: 10/30/16 09:25 Dose: 5 mg Apixaban (Eliquis) 5 mg PO BID [facility] Last Admin: 10/30/16 09:25 Dose: 5 mg Aspirin (Aspirin Chewable) 81 mg PO DAILY [facility] Last Admin: 10/30/16 09:25 Dose: 81 mg Famotidine (Pepcid) 20 mg PO DAILY [facility] Last Admin: 10/30/16 09:25 Dose: 20 mg Furosemide (Lasix) 40 mg PO Q12 [facility] Last Admin: 10/30/16 09:26 Dose: 40 mg Cefepime HCl (Maxipime Iv 2 Gm Premix) 2 gm in 100 mls @ 200 mls/hr IVPB Q12H [facility] Stop: 10/31/16 00:31 Last Admin: 10/30/16 12:20 Dose: 200 mls/hr Ciprofloxacin (Cipro 200mg/100ml D5w) 100 mls @ 100 mls/hr IVPB Q12H [facility] Last Admin: 10/30/16 09:00 Dose: 100 mls/hr Insulin Aspart (Novolog) 0 unit SC ACHS [facility] PRN Reason: Protocol Last Admin: 10/30/16 07:30 Dose: Not Given Insulin Detemir (Levemir) 50 unit SC HS [facility] Last Admin: 10/29/16 21:03 Dose: 50 unit Insulin Human Isoph/Insulin Regular (Novolin 70/30 (70/30 Units/Ml) 10 Ml) 20 units SC BIDAC [facility] Last Admin: 10/30/16 09:27 Dose: 20 units Linezolid (Zyvox) 600 mg PO BID [facility] Last Admin: 10/30/16 09:25 Dose: 600 mg Losartan Potassium (Cozaar) 50 mg PO DAILY [facility] Last Admin: 10/30/16 09:25 Dose: 50 mg Ofloxacin (Floxin 0.3% Otic Soln) 0.5 ml AU BID [facility] Last Admin: 10/30/16 09:26 Dose: 2 drop Prednisone (Prednisone Tab) 20 mg PO DAILY [facility] Last Admin: 10/30/16 09:25 Dose: 20 mg Rosuvastatin Calcium (Crestor) 20 mg PO HS [facility] Last Admin: 10/29/16 21:02 Dose: 20 mg - Labs Labs: 10/28/16 10:50 10/28/16 10:50 - Constitutional Appears: Non-toxic, Chronically Ill - Head Exam Head Exam: NORMOCEPHALIC - Eye Exam Eye Exam: PERRL - ENT Exam ENT Exam: Mucous Membranes Dry - Neck Exam Neck Exam: absent: Lymphadenopathy - Respiratory Exam Respiratory Exam: Decreased Breath Sounds, Rhonchi - Cardiovascular Exam Cardiovascular Exam: REGULAR RHYTHM - GI/Abdominal Exam GI & Abdominal Exam: Distended, Soft - Rectal Exam Rectal Exam: Deferred - Exam Exam: NORMAL INSPECTION Assessment and Plan (1) ARDS (adult respiratory distress syndrome) Status: Acute (2) Acute kidney injury Status: Acute (3) Asthma exacerbation Status: Acute (4) CHF (congestive heart failure) Status: Acute (5) CKD (chronic kidney disease) Status: Acute (6) Otitis externa of right ear Status: Acute (7) Renal failure Status: Acute
[2016-10-30] MEDS: Insulin Detemir 100 units/ml Vial (Levemir) SC SCH (22:16)
[2016-10-31] MEDS: Cefepime IV 2 gm in Dextrose 2 GM/100 ML BAG IVPB SCH (00:16)
[2016-10-31 08:29] VITALS: PULSE 83; RESP 18; TEMP 98; O2SAT 98
[2016-10-31] MEDS: Ciprofloxacin 200mg/100ml D5W 100 ML IVPB SCH (09:00)
[2016-10-31 09:11] VITALS: BP 126/70
[2016-10-31] MEDS: (Novolin 70/30) NPH/Regular 70/30 Units/ml 10 ml vial SC SCH (09:12)
[2016-10-31] MEDS: (Novolog) Insulin Aspart, Recombinant 100 u/ml 10 ml vial SC SCH (09:12)
--- NOTE | 2016-10-31 12:05 | CP.PCM.PN ---
Subjective - Date & Time of Evaluation Date of Evaluation: 10/31/16 Time of Evaluation: 12:05 - Subjective Subjective: PT CLEARED FOR D/C PER DR. ROBERTS FOR HOME TODAY. [employer] SUPERVISOR DISCUSSED ALL MEDS, OXYGEN USE, AND FOLLOW UP WITH THE PT AT LENGTH. HAS PORTABLE O2 TANK AT BEDSIDE; PROVIDED WITH NASAL CANNULA. ALL MEDS REFILLED. CIPRO TO BE TAKEN X2 WEEKS PER DR. BOUCHER AND PT GIVEN RX FOR CXR FOR NEXT WEEK ALSO PER DR. BOUCHER. RESULTS TO BE SENT TO DR. ROBERTS'S OFFICE. NO FURTHER ORDERS. Objective - Vital Signs/Intake and Output Vital Signs (last 24 hours): Temp Pulse Resp BP Pulse Ox 98.0 F 83 18 126/70 98 10/31/16 07:45 10/31/16 07:45 10/31/16 07:45 10/31/16 09:10 10/31/16 07:45 Intake and Output: 10/31/16 10/31/16 06:59 18:59 Intake Total 340 Balance 340 - Medications Medications: Current Medications Amlodipine Besylate (Norvasc) 5 mg PO DAILY [facility] Last Admin: 10/31/16 09:11 Dose: 5 mg Apixaban (Eliquis) 5 mg PO BID [facility] Last Admin: 10/31/16 09:11 Dose: 5 mg Aspirin (Aspirin Chewable) 81 mg PO DAILY [facility] Last Admin: 10/31/16 09:11 Dose: 81 mg Famotidine (Pepcid) 20 mg PO DAILY [facility] Last Admin: 10/31/16 09:10 Dose: 20 mg Furosemide (Lasix) 40 mg PO Q12 [facility] Last Admin: 10/31/16 09:10 Dose: 40 mg Ciprofloxacin (Cipro 200mg/100ml D5w) 100 mls @ 100 mls/hr IVPB Q12H [facility] Last Admin: 10/31/16 09:00 Dose: 100 mls/hr Insulin Aspart (Novolog) 0 unit SC ACHS [facility] PRN Reason: Protocol Last Admin: 10/31/16 09:12 Dose: Not Given Insulin Detemir (Levemir) 50 unit SC HS [facility] Last Admin: 10/30/16 22:16 Dose: 50 unit Insulin Human Isoph/Insulin Regular (Novolin 70/30 (70/30 Units/Ml) 10 Ml) 20 units SC BIDAC [facility] Last Admin: 10/31/16 09:12 Dose: 20 units Linezolid (Zyvox) 600 mg PO BID [facility] Last Admin: 10/31/16 09:10 Dose: 600 mg Losartan Potassium (Cozaar) 50 mg PO DAILY [facility] Last Admin: 10/31/16 09:11 Dose: 50 mg Ofloxacin (Floxin 0.3% Otic Soln) 0.5 ml AU BID [facility] Last Admin: 10/30/16 17:59 Dose: 2 drop Prednisone (Prednisone Tab) 20 mg PO DAILY [facility] Last Admin: 10/31/16 09:10 Dose: 20 mg Rosuvastatin Calcium (Crestor) 20 mg PO HS [facility] Last Admin: 10/30/16 21:04 Dose: 20 mg - Labs Labs: 10/28/16 10:50 10/28/16 10:50
--- NOTE | 2016-11-02 12:26 | CP.PCM.PN ---
Subjective - Date & Time of Evaluation Date of Evaluation: 10/29/16 Time of Evaluation: 12:26 - Subjective Subjective: Patient's room air oxygen saturation is improving to 82% now. He will need oxygen. With oxygen supplementation. His oxygen saturation goes up to 97. He has no chest pain. Cough minimal. Leg swelling is better. On examination: HEENT PERRLA, neck supple No thyromegaly was noted and no cervical adenopathy noted Chest bilateral good air entry, no wheezing or rales noted CVS regular heart sound, no murmur Abdomen soft and no organomegaly, pedal edema noted. Assessment and recommendation: 46-year-old male with history of hypertension, diabetes, hypercholesterolemia, DVT, pulmonary embolism, history of renal insufficiency, proteinuria, admitted with the severe pneumonia, ARDS, improving. Continue the antibiotic. Possible discharge plan pending at this time. On oxygen supplementation. Objective - Vital Signs/Intake and Output Vital Signs (last 24 hours): Temp Pulse Resp BP Pulse Ox 98.0 F 83 18 126/70 98 10/31/16 07:45 10/31/16 07:45 10/31/16 07:45 10/31/16 09:10 10/31/16 07:45 - Labs Labs: 10/28/16 10:50 10/28/16 10:50
--- NOTE | 2016-11-02 12:26 | CP.PCM.PN ---
Subjective - Date & Time of Evaluation Date of Evaluation: 10/28/16 Time of Evaluation: 12:26 - Subjective Subjective: Patient's condition is overall improving. In spite of the low oxygen saturation. Patient is able to walk, without any difficulty, but still having minimal tachycardia, and a mild exertional weakness. But the patient is doing extremely well than before. He will be needed for itching, needing oxygen at this time. On antibiotic. Awaiting for infectious disease followup and possible clearance Objective - Vital Signs/Intake and Output Vital Signs (last 24 hours): Temp Pulse Resp BP Pulse Ox 98.0 F 83 18 126/70 98 10/31/16 07:45 10/31/16 07:45 10/31/16 07:45 10/31/16 09:10 10/31/16 07:45 - Labs Labs: 10/28/16 10:50 10/28/16 10:50
--- NOTE | 2016-11-02 12:26 | CP.PCM.PN ---
Subjective - Date & Time of Evaluation Date of Evaluation: 10/27/16 Time of Evaluation: 12:25 - Subjective Subjective: Patient's condition is overall improving. In spite of the low oxygen saturation. Patient is able to walk, without any difficulty, but still having minimal tachycardia, and a mild exertional weakness. But the patient is doing extremely well than before. He will be needed for itching, needing oxygen at this time. On antibiotic. Awaiting for infectious disease followup and possible clearance Objective - Vital Signs/Intake and Output Vital Signs (last 24 hours): Temp Pulse Resp BP Pulse Ox 98.0 F 83 18 126/70 98 10/31/16 07:45 10/31/16 07:45 10/31/16 07:45 10/31/16 09:10 10/31/16 07:45 - Labs Labs: 10/28/16 10:50 10/28/16 10:50
--- NOTE | 2016-11-02 12:27 | CP.PCM.DIS ---
Provider - Provider Date of Admission: 10/14/16 10:56 Attending physician: Dae Roberts MD Time Spent in preparation of Discharge (in minutes): 45 Hospital Course - Lab Results Lab Results: Micro Results 10/25/16 06:34 Nose MRSA Culture - Final MRSA NOT DETECTED 10/24/16 10:18 Stool Ova and Parasite Concentrate Exam - Final 10/19/16 05:00 Blood-Venous Blood Culture - Final NO GROWTH AFTER 5 DAYS 10/19/16 05:00 Blood-Venous Gram Stain - Final TEST NOT PERFORMED 10/21/16 Unknown Sputum Gram Stain - Final 10/21/16 Unknown Sputum Sputum Culture - Final Pseudomonas Aeruginosa 10/19/16 21:30 Urine,Clean Catch Urine Culture - Final Enterococcus Faecalis 10/18/16 12:30 Nose MRSA Culture (Admit) - Final MRSA NOT DETECTED Most Recent Lab Values WBC 26.3 K/uL (4.8-10.8) H 10/28/16 10:50 RBC 5.05 Mil/uL (4.40-5.90) 10/28/16 10:50 Hgb 14.1 g/dL (12.0-18.0) 10/28/16 10:50 Hct 43.6 % (35.0-51.0) 10/28/16 10:50 MCV 86.3 fL (80.0-94.0) 10/28/16 10:50 MCH 28.0 pg (27.0-31.0) 10/28/16 10:50 MCHC 32.5 g/dL (33.0-37.0) L 10/28/16 10:50 RDW 14.4 % (11.5-14.5) 10/28/16 10:50 Plt Count 235 K/uL (130-400) 10/28/16 10:50 MPV 11.3 fL (7.2-11.7) 10/28/16 10:50 Neut % (Auto) 69.9 % (50.0-75.0) 10/28/16 10:50 Lymph % (Auto) 15.5 % (20.0-40.0) L 10/28/16 10:50 [place] % (Auto) 10.8 % (0.0-10.0) H 10/28/16 10:50 Eos % (Auto) 3.5 % (0.0-4.0) 10/28/16 10:50 Baso % (Auto) 0.3 % (0.0-2.0) 10/28/16 10:50 Neut # 18.3 K/uL (1.8-7.0) H 10/28/16 10:50 Lymph # 4.1 K/uL (1.0-4.3) 10/28/16 10:50 [place] # 2.8 K/uL (0.0-0.8) H 10/28/16 10:50 Eos # 0.9 K/uL (0.0-0.7) H 10/28/16 10:50 Baso # 0.1 K/uL (0.0-0.2) 10/28/16 10:50 Neutrophils % (Manual) 89 % (50-75) H 10/26/16 06:10 Band Neutrophils % 1 % (0-2) 10/23/16 06:31 Lymphocytes % (Manual) 6 % (20-40) L 10/26/16 06:10 Monocytes % (Manual) 5 % (0-10) 10/26/16 06:10 Eosinophils % (Manual) 4 % (0-4) 10/23/16 06:31 Nucleated RBC % 6 % (0-0) H 10/17/16 07:04 Toxic Granulation Present 10/15/16 06:15 Platelet Estimate Normal (NORMAL) 10/26/16 06:10 Large Platelets Present 10/23/16 06:31 Giant Platelets Present 10/19/16 06:23 RBC Morphology Normal 10/26/16 06:10 Polychromasia Slight 10/23/16 06:31 Hypochromasia (manual) Slight 10/22/16 06:19 Poikilocytosis (manual Slight 10/23/16 06:31 Anisocytosis (manual) Slight 10/23/16 06:31 Microcytosis (manual) Slight 10/18/16 21:48 Target Cells Slight 10/22/16 06:19 Tear Drop Cells Slight 10/23/16 06:31 Ovalocytes Slight 10/23/16 06:31 Josey Cells Slight 10/15/16 06:15 ESR 43 mm/hr (0-15) H 10/23/16 06:31 Puncture Site Rra 10/23/16 11:25 pCO2 65 mm/Hg (35-45) H 10/23/16 11:25 pO2 107 mm/Hg (80-100) H 10/23/16 11:25 HCO3 27.0 mmol/L (21-28) 10/23/16 11:25 ABG pH 7.29 (7.35-7.45) L 10/23/16 11:25 ABG Total CO2 33.3 mmol/L (22-28) H 10/23/16 11:25 ABG O2 Saturation 99.0 % (95-98) H 10/23/16 11:25 ABG Base Excess 2.7 mmol/L (-2.0-3.0) 10/23/16 11:25 ABG Hemoglobin 14.5 g/dL (11.7-17.4) 10/23/16 11:25 ABG Carboxyhemoglobin 1.8 % (0.5-1.5) H 10/23/16 11:25 POC ABG HHb (Measured) 1.0 % (0.0-5.0) 10/23/16 11:25 ABG Methemoglobin 1.1 % (0.0-3.0) 10/23/16 11:25 Philippe Test Po 10/23/16 11:25 VBG pH 7.27 (7.32-7.43) L 10/14/16 09:29 VBG pCO2 53 mmHg (40-60) 10/14/16 09:29 VBG HCO3 21.9 mmol/L 10/14/16 09:29 VBG Total CO2 25.9 mmol/L (22-28) 10/14/16 09:29 VBG O2 Sat (Calc) 89.0 % (40-65) H 10/14/16 09:29 VBG Base Excess -3.3 mmol/L (0.0-2.0) L 10/14/16 09:29 VBG Potassium 4.6 mmol/L (3.6-5.2) 10/14/16 09:29 A-a O2 Difference 311.0 mm/Hg 10/23/16 11:25 Respiratory Index 2.9 10/23/16 11:25 Hgb O2 Saturation 96.1 % (95.0-98.0) 10/23/16 11:25 Sodium 137.0 mmol/l (132-148) 10/14/16 09:29 Chloride 106.0 mmol/L (98-107) 10/14/16 09:29 Glucose 191 mg/dl (75-110) H 10/14/16 09:29 Lactate 1.1 mmol/L (0.7-2.1) 10/14/16 09:29 Vent Mode Bipap 10/22/16 05:20 FiO2 70.0 % 10/23/16 11:25 Inspiratory BiPAP 18 10/22/16 05:20 Expiratory BiPAP 8 10/22/16 05:20 Sodium 133 mmol/L (132-148) 10/28/16 10:50 Potassium 4.0 mmol/L (3.6-5.2) 10/28/16 10:50 Chloride 96 mmol/L (98-107) L 10/28/16 10:50 Carbon Dioxide 30 mmol/L (22-30) 10/28/16 10:50 Anion Gap 10 (10-20) 10/28/16 10:50 BUN 57 mg/dL (9-20) H 10/28/16 10:50 Creatinine 1.4 MG/DL (0.8-1.5) 10/28/16 10:50 Est GFR ( Amer) > 60 10/28/16 10:50 Est GFR (Non-Af Amer) 54 10/28/16 10:50 POC Glucose (mg/dL) 184 mg/dL (65-110) H 10/31/16 11:46 Random Glucose 214 mg/dL (75-110) H 10/28/16 10:50 Calcium 8.3 mg/dl (8.6-10.4) L 10/28/16 10:50 Phosphorus 3.5 mg/dL (2.5-4.5) 10/27/16 07:33 Magnesium 2.0 mg/dL (1.6-2.3) 10/27/16 07:33 Total Bilirubin 1.0 mg/dL (0.2-1.3) 10/28/16 10:50 AST 55 U/L (17-59) 10/28/16 10:50 ALT 87 U/L (21-72) H 10/28/16 10:50 Alkaline Phosphatase 161 U/L (38-126) H 10/28/16 10:50 Total Creatine Kinase 66 U/L (55-170) 10/18/16 21:48 CK-MB (Mass) 3.80 ng/mL (0.0-3.38) H 10/18/16 21:48 Troponin I 0.0250 ng/mL (0.00-0.120) 10/14/16 09:30 Troponin I, Quant 0.0890 ng/mL (0.00-0.120) 10/18/16 21:48 C-React Prot High Sens 9.71 mg/L (1.00-3.00) H 10/23/16 06:31 NT-Pro-B Natriuret Pep 509 pg/mL (0-450) H 10/14/16 09:30 Total Protein 6.0 g/dL (6.3-8.3) L 10/28/16 10:50 Albumin 3.0 g/dL (3.5-5.0) L 10/28/16 10:50 Globulin 3.0 gm/dL (2.2-3.9) 10/28/16 10:50 Albumin/Globulin Ratio 1.0 (1.0-2.1) 10/28/16 10:50 Procalcitonin 0.86 NG/ML (0.19-0.49) H 10/19/16 11:23 Venous Blood Potassium 4.6 mmol/L (3.6-5.2) 10/14/16 09:29 Urine Color Straw (YELLOW) 10/19/16 21:13 Urine Clarity Clear (Clear) 10/19/16 21:13 Urine pH 5.0 (5.0-8.0) 10/19/16 21:13 Ur Specific [place] 1.006 (1.003-1.030) 10/19/16 21:13 Urine Protein 2+ mg/dL (NEGATIVE) H 10/19/16 21:13 Urine Glucose (UA) 3+ mg/dL (Normal) H 10/19/16 21:13 Urine Ketones Negative mg/dL (NEGATIVE) 10/19/16 21:13 Urine Blood Negative (NEGATIVE) 10/19/16 21:13 Urine Nitrate Negative (NEGATIVE) 10/19/16 21:13 Urine Bilirubin Negative (NEGATIVE) 10/19/16 21:13 Urine Urobilinogen Normal mg/dL (0.2-1.0) 10/19/16 21:13 Ur Leukocyte Esterase Neg Mert/uL (Negative) 10/19/16 21:13 Urine WBC (Auto) < 1 /hpf (0-5) 10/19/16 21:13 Urine RBC (Auto) 1 /hpf (0-3) 10/19/16 21:13 Ur Squamous Epith Cells < 1 /hpf (0-5) 10/19/16 21:13 Urine Bacteria Rare (<OCC) 10/19/16 21:13 Hyaline Casts 3-5 /lpf (0-2) H 10/15/16 07:19 Urine Collection Time 24 HRS 10/27/16 12:22 Urine Total Volume 3700 mL 10/27/16 12:22 Ur Protein 24 Hr Calc 67284.0 mg/24hr (42-225) H 10/27/16 12:22 IgG, Serum (MS) 30.7 mg/dL (4-86) 10/22/16 07:45 IgG 1114.0 mg/dL (700.0-1600.0) 10/22/16 06:16 IgA 330.1 mg/dL (70.0-400.0) 10/22/16 06:16 IgM 51.0 mg/dL (40.0-230.0) 10/22/16 06:16 IgE 2051 kU/L (<de=326) H 10/22/16 07:45 Rheumatoid Factor IgG <5 U (<=6) 10/23/16 07:31 Rheumatoid Factor IgA <5 U (<=6) 10/23/16 07:31 Rheumatoid Factor IgM <5 U (<=6) 10/23/16 07:31 NINI 6 Profile Negative (NEGATIVE) 10/23/16 04:00 ANCA Screen Negative (NEGATIVE) 10/23/16 07:31 c-ANCA Titer TNP 10/23/16 07:31 Proteinase 3 (PR3) <1.0 AI (<1.0) 10/23/16 11:23 p-ANCA Titer TNP 10/23/16 07:31 Atypical p-ANCA Titer TNP 10/23/16 07:31 Myeloperoxidase Ab <1.0 AI (<1.0) 10/23/16 11:23 Scl-70 Scleroderma Ab <1.0 AI (<1.0) 10/23/16 07:31 Complement C3 86.0 mg/dL (88.0-165.0) L 10/22/16 06:16 Complement C4 14.2 mg/dL (14.0-44.0) 10/22/16 06:16 Tot Complement (CH50) 29 U/mL (31-60) L 10/22/16 07:45 Absolute Lymphs (Flow) 1339 Cells/mcL (850-3900) 10/22/16 07:45 % CD4 Cells 49 Percent (30-61) 10/22/16 07:45 Absolute CD4 Count 661 Cells/mcL (490-1740) 10/22/16 07:45 T-Help/Suppress Ratio 11.57 Ratio (0.86-5.00) H 10/22/16 07:45 % CD8 Cells 4 Percent (12-42) L 10/22/16 07:45 Absolute CD8 Count 57 Cells/mcL (180-1170) L 10/22/16 07:45 Urine Legionella Ag Not detected (Not Detected) 10/21/16 20:19 Aspergillus flavus Ab Negative (Negative) 10/22/16 07:45 Aspergill fumigatus Ab Negative (Negative) 10/22/16 07:45 Aspergillus niger Ab Negative (Negative) 10/22/16 07:45 - Hospital Course Hospital Course: PT CLEARED FOR D/C PER DR. ROBERTS FOR HOME TODAY. 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 HAS PORTABLE O2 TANK AT BEDSIDE; PROVIDED WITH NASAL CANNULA. ALL MEDS REFILLED. CIPRO TO BE TAKEN X2 WEEKS PER DR. BANUELOS AND PT GIVEN RX FOR CXR FOR NEXT WEEK ALSO PER DR. BANUELOS. RESULTS TO BE SENT TO DR. ROBERTS'S OFFICE. NO FURTHER ORDERS. Patient is a 46-year-old male with history of hypertension, diabetes, hypercholesteremia, osteoarthritis, DVT on anticoagulation, pulmonary embolism, renal insufficiency and proteinuria. Patient admitted to the hospital with the shortness of breath, cough. Significant hypoxia noted. Initially started on antibiotic. Patient condition got worse. He become more hypoxic, shortness of breath. Patient was transferred to the intensive care unit. Patient was started on multiple IV antibiotic. Also started on intravenous Lasix. Patient developed a severe ARDS, complicated with the hypoxia, needing noninvasive ventilation, and also high flow oxygen. Condition slowly improved after controlling the intake and output. Chest x-ray slowly started clearing. Bacterial culture were positive for Pseudomonas pneumonia on antibiotic. Improved markedly. Oxygen saturation is improved. Patient will need oxygen supplementation. Medications prescription was given to the patient. He will needed to fix of antibiotic ciprofloxacin. Followup in one week needed. Will follow the patient. Discussed with the family in details about the condition. Discharge Exam - Head Exam Head Exam: NORMOCEPHALIC Discharge Plan - Discharge Medications Prescriptions: Fluticasone/Salmeterol 250/50 [Advair Diskus 250/50] 2 puff IH Q12 #1 puff Aspirin [Aspirin Chewable] 81 mg PO DAILY 30 Days Ciprofloxacin [Cipro] 500 mg PO Q12 #60 tab Losartan [Cozaar] 50 mg PO DAILY #30 tab Rosuvastatin Calcium [Crestor] 20 mg PO HS #30 tab Albuterol/Ipratropium [Duoneb 3 mg/0.5 mg (3 ml) UD] 3 ml INH RQ6 PRN #120 neb PRN Reason: Shortness Of Breath Apixaban [Eliquis] 5 mg PO BID #60 tab Apixaban [Eliquis] 5 mg PO BID 30 Days Furosemide [Lasix] 40 mg PO Q12 #60 tab Insulin Detemir [Levemir] 25 unit SC Q12 #1 vial amLODIPine [Norvasc] 5 mg PO DAILY 30 Days Insulin Human (NPH)/Regular [Novolin 70/30 (70/30 units/ml) 10 ml] 20 units SC BIDAC #1 vial Insulin Aspart, Recombinant [Novolog] 12 unit SC ACTID #1 vial Montelukast [Singulair] 10 mg PO HS #30 tab Albuterol HFA [Ventolin HFA 90 mcg/actuation (8 g)] 1 puff IH PRN PRN #1 inh PRN Reason: asthma - Follow Up Plan Condition: STABLE Disposition: HOME/ ROUTINE Instructions: Aspirin (By mouth), Amlodipine (By mouth), Apixaban (By mouth), Heart Failure (DC), Asthma (DC), Pulmonary Edema (DC), Acute Kidney Injury (DC) , Otitis Externa (DC), Renal Failure Diet (DC), Heart Healthy Diet (DC) Additional Instructions: FOLLOW UP WITH DR. ROBERTS IN THE OFFICE IN 5-7 DAYS. MAKE SURE YOU HAVE THE CHEST XRAY NEXT WEEK---CALL THE OUTPATIENT RADIOLOGY DEPARTMENT TO MAKE YOUR APPOINTMENT FOR THIS TIME BE DONE. RESULTS ARE TO BE SENT TO DR. ROBERTS'S OFFICE. MAKE SURE YOU TAKE ALL OF YOUR MEDICATIONS EXACTLY PRESCRIBED. PLEASE NOTE THE CHANGES MADE TO YOUR LASIX AND COZAAR. CONTINUE THE ANTIBIOTIC, CIPRO, FOR A TOTAL OF 2 WEEKS. USE YOUR PORTABLE OXYGEN IF NEEDED WHEN YOU GO OUTSIDE. THE TRILOGY MACHINE WILL BE DELIVERED TO YOUR HOUSE TODAY. FOR ANY OTHER CONCERNS OR QUESTIONS, CONTACT DR. ROBERTS. Referrals: Hector Turner MD [Staff Provider] - Campos Rhoades MD [Staff Provider] - Thang Banuelos MD [Staff Provider] - Dae Roberts MD [Staff Provider] -
== END 2016-10-31 13:04 | disposition home or self-care (01) | DRG 584 ==
LOC: C.ER 08:44 → C.9E 10:56 → C.6T 12:22 → C.9I 10-18 09:00 → C.6T 10-25 08:26 → UNDODISIN 10-25 14:06
PROVIDERS: ADMIT Internal Medicine; ATTEND Internal Medicine
PROC: 5A09457 Assistance with Respiratory Ventilation, 24-96 Consecutive Hours, Continuous Positive Airway Pressure (ICD-10-PCS; principal; 2016-10-20)
DX: A41.9 Sepsis, unspecified organism (principal); J96.01 Acute respiratory failure with hypoxia; J15.1 Pneumonia due to Pseudomonas; I13.0 Hypertensive heart and chronic kidney disease with heart failure and stage 1 through stage 4 chronic kidney disease, or unspecified chronic kidney disease; E10.21 Type 1 diabetes mellitus with diabetic nephropathy; N17.9 Acute kidney failure, unspecified; J44.0 Chronic obstructive pulmonary disease with (acute) lower respiratory infection; I50.9 Heart failure, unspecified; N18.3 Chronic kidney disease, stage 3 (moderate); N04.9 Nephrotic syndrome with unspecified morphologic changes; H70.001 Acute mastoiditis without complications, right ear; K74.60 Unspecified cirrhosis of liver; E87.5 Hyperkalemia; E10.22 Type 1 diabetes mellitus with diabetic chronic kidney disease; R65.20 Severe sepsis without septic shock; E10.65 Type 1 diabetes mellitus with hyperglycemia; H60.91 Unspecified otitis externa, right ear; H91.91 Unspecified hearing loss, right ear; E66.01 Morbid (severe) obesity due to excess calories; H66.91 Otitis media, unspecified, right ear; J34.2 Deviated nasal septum; K80.20 Calculus of gallbladder without cholecystitis without obstruction; E78.00 Pure hypercholesterolemia, unspecified; G47.33 Obstructive sleep apnea (adult) (pediatric); Z90.81 Acquired absence of spleen; Z83.3 Family history of diabetes mellitus; Z87.891 Personal history of nicotine dependence; Z87.01 Personal history of pneumonia (recurrent); Z86.718 Personal history of other venous thrombosis and embolism; Z79.01 Long term (current) use of anticoagulants; Z79.4 Long term (current) use of insulin; Z86.711 Personal history of pulmonary embolism

== ENCOUNTER 2016-11-09 08:04 | Inpatient (IN) | payer MEDICAID ==
[2016-11-09 08:34] VITALS: BMI 29.5
--- NOTE | 2016-11-09 08:47 | C.PDOC ---
History Of Present Illness 46 y/o male, PMHx of CHF, COPD, and HTN, presents to ED with complaints of chest pain, described as pressure, associated with shortness of breath since last night. The patient denies fever, dizziness, vomiting, or headaches. Time Seen by Provider: 11/09/16 08:08 Chief Complaint (Nursing): Chest Pain History Per: Patient History/Exam Limitations: no limitations Onset/Duration Of Symptoms: Days, Persistent Current Symptoms Are (Timing): Still Present Quality: Pressure Associated Symptoms: Dyspnea. denies: Nausea Recent travel outside of the [place]: No Past Medical History Reviewed: Historical Data, Nursing Documentation, Vital Signs Vital Signs: Last Vital Signs Temp 98.8 F 11/09/16 11:45 Pulse 108 H 11/09/16 11:45 Resp 22 11/09/16 11:45 BP 119/69 11/09/16 11:45 Pulse Ox 92 L 11/09/16 11:45 - Medical History PMH: Asthma, CHF, COPD, Diabetes, Deep Vein Thrombosis, HTN, Hyperlipidemia, Pneumonia, Chronic Kidney Disease Denies: Anxiety Surgical History: No Surg Hx - [facility] Procedures ASSISTANCE WITH RESPIRATORY VENTILATION, 24-96 HRS, CPAP (10/14/16) DRAINAGE OF SPINAL CANAL, PERCUTANEOUS APPROACH, DIAGNOSTIC (05/03/15) EXTIRPATION OF MATTER FROM R COM ILIAC VEIN, PERC APPROACH (05/25/16) INSERT INFUSION DEV IN R INT JUGULAR VEIN, PERC (05/25/16) INSERTION OF ENDOTRACHEAL AIRWAY INTO TRACHEA, VIA OPENING (05/25/16) INSERTION OF INFUSION DEV INTO R FEMOR VEIN, PERC APPROACH (01/25/16) INSERTION OF INFUSION DEV INTO SUP VENA CAVA, PERC APPROACH (05/25/16) INSERTION OF INTRALUM DEV INTO INF VENA CAVA, PERC APPROACH (05/25/16) PERFORMANCE OF URINARY FILTRATION, MULTIPLE (05/25/16) RESPIRATORY VENTILATION, GREATER THAN 96 CONSECUTIVE HOURS (05/25/16) TETANUS TOXOID ADMINIST (07/19/13) Family History: States: Unknown Family Hx, Diabetes - Social History Hx Tobacco Use: No Hx Alcohol Use: No Hx Substance Use: No - Immunization History Hx Tetanus Toxoid Vaccination: Yes (07/19/13) Hx Influenza Vaccination: No (egg allergy) Hx Pneumococcal Vaccination: No Review Of Systems Except As Marked, All Systems Reviewed And Found Negative. Constitutional: Negative for: Fever, Chills, Weakness Cardiovascular: Positive for: Chest Pain Respiratory: Positive for: Shortness of Breath. Negative for: Cough Gastrointestinal: Negative for: Nausea, Vomiting, Abdominal Pain Skin: Negative for: Rash Neurological: Negative for: Weakness, Numbness, Dizziness Physical Exam - Physical Exam Appears: Non-toxic, No Acute Distress Skin: Normal Color, Warm, Dry Head: Atraumatic, Normacephalic Eye(s): bilateral: Normal Inspection Nose: Normal Oral Mucosa: Moist Tongue: Normal Appearing Lips: Normal Appearing Throat: Normal, No Erythema, No Exudate Chest: Symmetrical, No Tenderness, No Ecchymosis Cardiovascular: Rhythm Regular Respiratory: No Accessory Muscle Use, Rales (at the bases), No Rhonchi, No Wheezing Gastrointestinal/Abdominal: Normal Exam, Soft, No Tenderness, No Guarding, No Rebound Extremity: Pedal Edema, Capillary Refill (<2 sec.) Neurological/Psych: Oriented x3, Normal Speech, Normal Cognition ED Course And Treatment - Laboratory Results Result Diagrams: 11/09/16 09:11 11/09/16 09:11 Lab Interpretation: No Acute Changes ECG: Interpreted By Md ECG Rhythm: Sinus Tachycardia, R BBB ECG Interpretation: No Acute Changes, No Changes From Prior Rate From EC O2 Sat by Pulse Oximetry: 90 Pulse Ox Interpretation: Normal - Radiology CXR: Interpreted by Md CXR Interpretation: Yes: Cardiomegaly, Other (PVC) Progress Note: Cardiac workup ordered. Duonebs and Lasix given. 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 - Scribe Statement The provider has reviewed the documentation as recorded by the Matheus Tena Decision To Admit - Pt Status Changed To: Hospital Disposition Of: Inpatient - Admit Certification Admit to Inpatient:: After my assessment, the patient will require hospitalization for at least two midnights. This is because of the severity of symptoms shown, intensity of services needed, and/or the medical risk in this patient being treated as an outpatient. - InPatient: Physician Admission Certification: I certify that this patient requires 2 or more midnights of care for the following reason:: CHF, Chest Pain. Hypoxia - . Bed Request Type: Telemetry Admitting Physician: Dae Long Patient Diagnosis: Chest pain, Congestive heart failure, Leukocytosis
[2016-11-09 09:01] LABS: RBC URINE 2 /hpf (0-3); URINE BACTERIA RARE (<OCC); URINE BILIRUBIN NEGATIVE (NEGATIVE); URINE BLOOD 1+ (NEGATIVE); URINE COLOR Yellow (YELLOW); URINE GLUCOSE (UA) 3+ mg/dL (Normal); URINE KETONE NEGATIVE (NEGATIVE); URINE LEUKOCYTE ESTERASE NEG Leu/uL (Negative); URINE PROTEIN 3+ mg/dL (NEGATIVE); URINE UROBILINOGEN NORMAL mg/dL (0.2-1.0); WBC URINE 3 /hpf (0-5)
[2016-11-09 09:19] LABS: BASO # 0.2 K/uL (0.0-0.2); BASO % 0.9 % (0.0-2.0); EOS # 1.3 K/uL (0.0-0.7); HEMATOCRIT 37.2 % (35.0-51.0); LYMPH # 1.4 K/uL (1.0-4.3); LYMPH % 6.4 % (20.0-40.0); MEAN CELL VOLUME 86.2 fL (80.0-94.0); MEAN CORPUSCULAR HEMOGLOBIN 27.4 pg (27.0-31.0); MEAN CORPUSCULAR HGB CONC 31.8 g/dL (33.0-37.0); MEAN PLATELET VOLUME 9.4 fL (7.2-11.7); MONO # 2.4 K/uL (0.0-0.8); MONO % 10.7 % (0.0-10.0); NRBC % 0.1 % (0.0-2.0); PLATELET COUNT 155 K/uL (130-400); RED CELL DISTRIBUTION WIDTH 15.7 % (11.5-14.5); WHITE BLOOD COUNT 22.2 K/uL (4.8-10.8)
[2016-11-09 09:34] LABS: POTASSIUM 4.3 mmol/L (3.6-5.2)
[2016-11-09 09:37] LABS: ALB/GLOB RATIO 0.9 (1.0-2.1); CALCIUM 8.2 mg/dl (8.6-10.4); TOTAL PROTEIN 6.2 g/dL (6.3-8.3)
[2016-11-09] MEDS: Albuterol-Ipratrop 3 mg / 0.5 (3 ml) UD IH SCH ×2 (09:40→09:50)
[2016-11-09] MEDS ORDERED: Albuterol-Ipratrop 3 mg / 0.5 (3 ml) UD ONE (09:47)
[2016-11-09] MEDS ORDERED: Ipratropium 0.02% Inhal Soln (0.5 mg/2.5 ml) UD IH ONE (09:47)
[2016-11-09 09:50] LABS: TROPONIN I 0.026 ng/mL (0.00-0.120)
--- NOTE | 2016-11-09 10:15 | RAD ---
HISTORY: Shortness of breath COMPARISON: 10/22/2016. TECHNIQUE: Chest PA and lateral FINDINGS: LUNGS: There is redemonstration of severe pulmonary venous congestion and interstitial pulmonary edema worse since the prior examination. PLEURA: There are small pleural effusions. No pneumothorax apparent. CARDIOVASCULAR: The heart remains enlarged. OSSEOUS STRUCTURES: No significant abnormalities. VISUALIZED UPPER ABDOMEN: Normal. OTHER FINDINGS: None. IMPRESSION: Findings are most compatible with congestive heart failure, slightly worse since the prior examination.
[2016-11-09 10:19] LABS: EOSINOPHIL 2 % (0-4); NEUTROPHIL 86 % (50-75); TOTAL CELLS COUNTED 100
[2016-11-09] MEDS ORDERED: Piperacillin/Tazobact 3.375 gm 100 ML IV STA (10:23)
[2016-11-09] MEDS ORDERED: Ciprofloxacin 400mg/200ml D5W 400 MG/200 ML BAG IV ONE (10:30)
[2016-11-09] MEDS ORDERED: Azithromycin 500mg/250ML NS 0 MG/0 ML BAG IVPB ONE (11:01)
[2016-11-09] MEDS ORDERED: Piperacillin/Tazobact 3.375 gm 100 ML IVPB ONE (11:01)
[2016-11-09] MEDS ORDERED: Ciprofloxacin 400mg/200ml D5W 400 MG/200 ML BAG IVPB ONE (11:04)
[2016-11-09] MEDS: (Novolin R) Insulin Human Regular 100 units/ml vial SC SCH ×2 (18:21→22:18)
--- NOTE | 2016-11-09 21:00 | CP.PCM.HP ---
History of Present Illness - History of Present Illness History of Present Illness: Chief complaint: Chest pain started last night History present illness: 46-year-old male with history of COPD bronchial asthma diabetes hypertension DVT on anticoagulation History of chronic liver disease, renal insufficiency, nephrotic syndrome. Patient also admitted last time with progressively worsening pneumonia, ARDS. Treated initially with the BiPAP, oxygen, broncho-dilators, corticosteroids, and also antibiotic. Patient developed a pseudomonas pneumonia at the time. Currently patient is on home oxygen, and the ciprofloxacin as an outpatient. Patient came to the emergency room with the sudden onset of chest pain, started last night. He was also having some minimal cough. Some shortness of breath also noted. Cough noted, but mostly dry in nature. He is having no leg swelling. He is making urine. But he is concerned that he was drinking more fluid than before Patient did not have any fever. But chills noted last night. Shivering noted. No diarrhea or constipation noted. Past medical history as noted above. Surgical history splenectomy Family history diabetes. Social history: years ago used to be a smoker heavy. No known drug allergy Review of system: Currently having increasing cough. Chills and fever noted. Abdominal pain negative, currently having no diarrhea. Patient is using home oxygen, and also on antibiotic. But the patient's blood sugar is recently not controlled well. Vital signs reviewed No neck vein distention noted Chest good air entry bilaterally, no wheezing or rales noted CVS regular heart sound, no murmur noted Abdomen soft, nontender. 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 Chest x-ray showing evidence of bilateral infiltrative changes. ProBNP is normal at this time. Elevated WBC noted. Assessment and recommendation: 45-year-old male with multiple medical history including COPD asthma diabetes hypertension DVT history of NC in the past With a history of recent pneumonia, Pseudomonas. ARDS. Chronic renal insufficiency. Nephrotic syndrome. History of splenectomy. Now admitted with the chest pain, less likely cardiac in origin, more likely pulmonary in origin. Pneumonia likely. Non-resolving 8. We will continue the antibiotic. Broncho-dilators. corticosteroids may be needed. We'll get the CT scan of the chest. We'll follow the patient Present on Admission - Present on Admission Any Indicators Present on Admission: No History of DVT/PE: Yes History of Uncontrolled Diabetes: No Urinary Catheter: No Decubitus Ulcer Present: No Past Patient History - Infectious Disease Hx of Infectious Diseases: None - Past Medical History & Family History Past Medical History?: Yes - Past Social History Smoking Status: Former Smoker - CARDIAC Hx Congestive Heart Failure: Yes Hx Hypertension: Yes - PULMONARY Hx Asthma: Yes Hx Chronic Obstructive Pulmonary Disease (COPD): Yes Hx Pneumonia: Yes - NEUROLOGICAL Hx Neurological Disorder: Yes - HEENT Hx HEENT Problems: No - RENAL Hx Chronic Kidney Disease: Yes - ENDOCRINE/METABOLIC Hx Diabetes Mellitus Type 2: Yes - HEMATOLOGICAL/ONCOLOGICAL Hx Blood Disorders: No - INTEGUMENTARY Hx Dermatological Problems: Yes Hx Cellulitis: Yes - MUSCULOSKELETAL/RHEUMATOLOGICAL Hx Falls: No - GASTROINTESTINAL Hx Gastrointestinal Disorders: No - GENITOURINARY/GYNECOLOGICAL Hx Genitourinary Disorders: No - PSYCHIATRIC Hx Substance Use: No - SURGICAL HISTORY Hx Surgeries: Yes Hx Splenectomy: Yes (3 years ago) Hx Vascular Access Device: Yes (HX INGUINAL PERMA CATH) - ANESTHESIA Hx Anesthesia: Yes Hx Anesthesia Reactions: No Hx Malignant Hyperthermia: No Meds Allergies/Adverse Reactions: Allergies Allergy/AdvReac Type Severity Reaction Status Date / Time EGG Allergy Intermediate RASH Verified 10/14/16 08:51 Results - Vital Signs Recent Vital Signs: Last Vital Signs Temp 98.3 F 11/09/16 15:57 Pulse 96 H 11/09/16 19:34 Resp 22 11/09/16 15:57 BP 114/78 11/09/16 18:21 Pulse Ox 95 11/09/16 15:57 - Labs Result Diagrams: 11/09/16 09:11 11/09/16 09:11 Labs: Laboratory Results - last 24 hr 11/09/16 16:10 POC Glucose (mg/dL) 260 H
[2016-11-09] MEDS: Piperacill/Tazo 2.25gm in Dex 2.25 GM/50 ML BAG IVPB SCH (21:41)
[2016-11-09] MEDS: (Lantus) Insulin Glargine, Recombinant SC SCH (21:41)
[2016-11-10] MEDS: Albuterol-Ipratrop 3 mg / 0.5 (3 ml) UD INH SCH ×4 (01:20→19:18)
[2016-11-10 01:42] VITALS: RESP 20
[2016-11-10] MEDS: Piperacill/Tazo 2.25gm in Dex 2.25 GM/50 ML BAG IVPB SCH ×3 (05:06→21:21)
[2016-11-10 08:05] LABS: BASO # 0.1 K/uL (0.0-0.2); BASO % 0.3 % (0.0-2.0); EOS # 1.9 K/uL (0.0-0.7); EOS % 10.9 % (0.0-4.0); HEMATOCRIT 38.7 % (35.0-51.0); LYMPH # 0.8 K/uL (1.0-4.3); LYMPH % 4.5 % (20.0-40.0); MEAN CELL VOLUME 86.9 fL (80.0-94.0); MEAN CORPUSCULAR HGB CONC 32.2 g/dL (33.0-37.0); MEAN PLATELET VOLUME 9.4 fL (7.2-11.7); MONO # 1.2 K/uL (0.0-0.8); MONO % 7.1 % (0.0-10.0); NRBC % 0.1 % (0.0-2.0); PLATELET COUNT 149 K/uL (130-400); RED CELL DISTRIBUTION WIDTH 15.7 % (11.5-14.5); WHITE BLOOD COUNT 17.5 K/uL (4.8-10.8)
[2016-11-10 08:17] LABS: ALB/GLOB RATIO 0.8 (1.0-2.1); BILIRUBIN,TOTAL 1.4 mg/dL (0.2-1.3); CALCIUM 8.9 mg/dl (8.6-10.4); TOTAL PROTEIN 6.7 g/dL (6.3-8.3)
[2016-11-10] MEDS: (Novolin R) Insulin Human Regular 100 units/ml vial SC SCH ×4 (08:45→21:15)
[2016-11-10 09:12] LABS: TOTAL CELLS COUNTED 100
[2016-11-10 09:13] LABS: EOSINOPHIL 11 % (0-4); NEUTROPHIL 78 % (50-75)
[2016-11-10] MEDS: Ciprofloxacin 200mg/100ml D5W 100 ML IVPB SCH ×2 (10:26→21:17)
--- NOTE | 2016-11-10 10:39 | CT ---
PROCEDURE: CT Chest without contrast HISTORY: pneumonia COMPARISON: Chest CT without contrast 10/06/2016 TECHNIQUE: Contiguous axial images were obtained through the chest without intravenous contrast enhancement. Sagittal and coronal reconstructions were performed. Radiation dose (DLP): 847 mGy-cm. This CT exam was performed using one or more of the following dose reduction techniques: Automated exposure control, adjustment of the mA and/or kV according to patient size, and/or use of iterative reconstruction technique. FINDINGS: LUNGS: In the interval, ground-glass opacity and reticular interstitial changes persist bilaterally, diffusely and are predominantly noticed at the lower greater than upper lung zones. No definite alveolitis is appreciated. Calcified granuloma and possible pleural thickening are seen at the right lower lobe posteromedially. Mild bronchiectasis is questioned at the bilateral lower lobe medium sized airways. MEDIASTINUM: Unremarkable thoracic aorta. No aneurysm. The main pulmonary artery measures 38 mm raising question of pulmonary arterial hypertension. Upper limits normal sized heart. Stable mild to moderate mediastinal lymphadenopathy is again appreciated. PLEURA: Discussed above. BONES: No fracture. No destructive lesion. UPPER ABDOMEN: Cholelithiasis is again seen and are partially captured gallbladder. . OTHER FINDINGS: None. IMPRESSION: Interval worsening of interstitial pulmonary disease representing a acute component superimposed on chronic pulmonary disease. Further clinical correlation is advised. No definite alveolar infiltrate. Primary feature of interstitial changes appears to be ground-glass opacity. Pulmonary arterial hypertension is questioned as discussed above. Trace right pleural thickening/ effusion has developed at the mid to inferior right lung zone. .
--- NOTE | 2016-11-10 13:01 | CARD ---
APPROVED REPORT EKG Measurement Heart [id number] <Conclusion> Sinus tachycardia Right bundle branch block Abnormal ECG
--- NOTE | 2016-11-10 18:44 | CP.PCM.PN ---
Subjective - Date & Time of Evaluation Date of Evaluation: 11/10/16 Time of Evaluation: 18:43 - Subjective Subjective: Patient clinically stable. He is feeling much better. His oxygen saturation is 96% on 4 L of nasal cannula. No cough noted. No fever. Urinary output is better. Vital signs reviewed No neck vein distention noted Chest good air entry bilaterally, no wheezing or rales noted CVS regular heart sound, no murmur noted Abdomen soft, nontender. 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 Compared to last CAT scan Assessment and recommendation: 46-year-old male with history of chronic liver disease, chronic renal disease, nephrotic syndrome, very poorly controlled diabetes, hypertension, and DVT pulmonary embolism, chronic lung disease. Pseudomonas pneumonia, complicated with interstitial lung disease. Currently on dual antibiotic. And anticoagulation. Overall prognosis is guarded. White count is improving. We'll continue the bronchodilating is. BiPAP oxygen he Will follow the patient Objective - Vital Signs/Intake and Output Vital Signs (last 24 hours): Temp Pulse Resp BP Pulse Ox 98.2 F 95 H 20 122/75 96 11/10/16 15:52 11/10/16 16:00 11/10/16 15:52 11/10/16 15:52 11/10/16 15:52 Intake and Output: 11/10/16 11/10/16 06:59 18:59 Intake Total 510 Balance 510 - Medications Medications: Current Medications Acetaminophen (Tylenol 325mg Tab) 650 mg PO Q6 PRN PRN Reason: Pain, moderate (4-7) Last Admin: 11/10/16 10:24 Dose: 650 mg Albuterol/Ipratropium (Duoneb 3 Mg/0.5 Mg (3 Ml) Ud) 3 ml INH RQ6 [facility] Last Admin: 11/10/16 13:37 Dose: Not Given Apixaban (Eliquis) 2.5 mg PO Q12 [facility] Last Admin: 11/10/16 10:25 Dose: 2.5 mg Famotidine (Pepcid) 20 mg IVP DAILY [facility] Last Admin: 11/10/16 10:26 Dose: 20 mg Furosemide (Lasix) 40 mg IVP BID [facility] Last Admin: 11/10/16 10:25 Dose: 40 mg Ciprofloxacin (Cipro 200mg/100ml D5w) 100 mls @ 67 mls/hr IVPB Q12H [facility] Last Admin: 11/10/16 10:26 Dose: 67 mls/hr Piperacillin Sod/Tazobactam Sod (Zosyn 2.25 Gm Iv Premix) 2.25 gm in 50 mls @ 100 mls/hr IVPB Q8 [facility] Last Admin: 11/10/16 14:58 Dose: 100 mls/hr Insulin Glargine (Lantus) 15 unit SC HS [facility] Last Admin: 11/09/16 21:41 Dose: 15 units Insulin Human Regular (Novolin R) 0 unit SC ACHS [facility] PRN Reason: Protocol Last Admin: 11/10/16 13:11 Dose: 8 unit - Labs Labs: 11/10/16 07:59 11/10/16 07:59
[2016-11-10] MEDS: (Lantus) Insulin Glargine, Recombinant SC SCH (21:17)
[2016-11-11] MEDS: Albuterol-Ipratrop 3 mg / 0.5 (3 ml) UD INH SCH ×3 (02:05→14:21)
[2016-11-11] MEDS: Piperacill/Tazo 2.25gm in Dex 2.25 GM/50 ML BAG IVPB SCH ×2 (05:24→13:25)
[2016-11-11 07:20] LABS: BASO # 0.1 K/uL (0.0-0.2); BASO % 0.8 % (0.0-2.0); EOS # 1.6 K/uL (0.0-0.7); EOS % 18.1 % (0.0-4.0); HEMATOCRIT 38.1 % (35.0-51.0); LYMPH # 0.9 K/uL (1.0-4.3); LYMPH % 10.5 % (20.0-40.0); MEAN CELL VOLUME 86.3 fL (80.0-94.0); MEAN CORPUSCULAR HEMOGLOBIN 28.4 pg (27.0-31.0); MEAN CORPUSCULAR HGB CONC 32.9 g/dL (33.0-37.0); MEAN PLATELET VOLUME 9.8 fL (7.2-11.7); MONO # 1.1 K/uL (0.0-0.8); MONO % 11.9 % (0.0-10.0); NRBC % 0.1 % (0.0-2.0); RED CELL DISTRIBUTION WIDTH 15.6 % (11.5-14.5); WHITE BLOOD COUNT 8.9 K/uL (4.8-10.8)
[2016-11-11 07:50] VITALS: TEMP 98.2; O2SAT 97
[2016-11-11 08:09] LABS: POTASSIUM 4.6 mmol/L (3.6-5.2)
[2016-11-11 08:12] LABS: ALB/GLOB RATIO 0.8 (1.0-2.1); CALCIUM 8.7 mg/dl (8.6-10.4); TOTAL PROTEIN 6.7 g/dL (6.3-8.3)
[2016-11-11] MEDS: (Novolin R) Insulin Human Regular 100 units/ml vial SC SCH ×2 (08:51→13:04)
[2016-11-11 09:40] VITALS: BP 130/81; PULSE 95
[2016-11-11] MEDS: Ciprofloxacin 200mg/100ml D5W 100 ML IVPB SCH (09:40)
--- NOTE | 2016-11-11 10:46 | RAD ---
HISTORY: pneumonia COMPARISON: 11/09/2016 FINDINGS: LUNGS: There is interval mild improved aeration in the lungs with persistent pulmonary venous congestion. PLEURA: No significant pleural effusion identified, no pneumothorax apparent. CARDIOVASCULAR: There is persistent moderate cardiomegaly. OSSEOUS STRUCTURES: No significant abnormalities. VISUALIZED UPPER ABDOMEN: Normal. OTHER FINDINGS: None. IMPRESSION: Interval mild improvement in severe pulmonary venous congestion. No significant interval change in moderate cardiomegaly.
--- NOTE | 2016-11-11 14:03 | PCM.HF ---
Heart Failure Core Measure - Heart Failure Ejection Fraction: 40 % or Greater BREANA Inhibitor Prescribed: No Contraindication/Reason for not providing: ON ARB; RENAL DISEASE Beta-Edenilson Prescribed: None Contraindication/Reason for not providing: COPD Angiotensin II Receptor Edenilson Prescribed: Yes AnticoagulationTherapy for Atrial Fibrillation/Atrialflutter: No Contraindication/Reason for not providing: ANTICOAG BUT NOT FOR AFIB Aldosterone Antagonist Prescribed: No Contraindication/Reason for not providing: RENAL DISEASE Hydralazine Nitrate Prescribed: No Contraindication/Reason for not providing: RENAL DISEASE Implantable Cardioverter Defibrillator Therapy: No Contraindication/Reason for not providing: EF >40 Cardiac Resynchronization Therapy Prescribed: No Contraindication/Reason for not providing: EF >40 - Follow up Will be discharged to: Home Follow Up Date (must be within 7 days from discharge): 11/16/16 Follow Up Time: 09:00
--- NOTE | 2016-11-11 14:26 | CP.PCM.PN ---
Subjective - Date & Time of Evaluation Date of Evaluation: 11/11/16 Time of Evaluation: 14:26 - Subjective Subjective: PT CLEARED FOR D/C PER DR. CURTSI. RX FOR ALL MEDS GIVEN TO PT AND 2 ABX TO BE TAKEN FOR 2 WEEKS. PT ALREADY HAS OXYGEN AND TRILOGY MACHINE AT HOME. WILL F/U WITH DR. BALDERRAMA IN THE OFFICE IN 1 WEEK OR RETURN FOR WORSENING SYMPTOMS. DISCUSSED PLAN WITH PT AND . NO FURTHERS ORDERS. Objective - Vital Signs/Intake and Output Vital Signs (last 24 hours): Temp Pulse Resp BP Pulse Ox 98.2 F 95 H 20 130/81 97 11/11/16 07:49 11/11/16 09:38 11/11/16 07:49 11/11/16 09:41 11/11/16 07:49 - Medications Medications: Current Medications Acetaminophen (Tylenol 325mg Tab) 650 mg PO Q6 PRN PRN Reason: Pain, moderate (4-7) Last Admin: 11/11/16 03:42 Dose: 650 mg Albuterol/Ipratropium (Duoneb 3 Mg/0.5 Mg (3 Ml) Ud) 3 ml INH RQ6 [facility] Last Admin: 11/11/16 14:21 Dose: Not Given Apixaban (Eliquis) 2.5 mg PO Q12 [facility] Last Admin: 11/11/16 09:41 Dose: 2.5 mg Famotidine (Pepcid) 20 mg IVP DAILY [facility] Last Admin: 11/11/16 09:41 Dose: 20 mg Furosemide (Lasix) 40 mg IVP BID [facility] Last Admin: 11/11/16 09:41 Dose: 40 mg Ciprofloxacin (Cipro 200mg/100ml D5w) 100 mls @ 67 mls/hr IVPB Q12H [facility] Last Admin: 11/11/16 09:40 Dose: 67 mls/hr Piperacillin Sod/Tazobactam Sod (Zosyn 2.25 Gm Iv Premix) 2.25 gm in 50 mls @ 100 mls/hr IVPB Q8 [facility] Last Admin: 11/11/16 13:25 Dose: 100 mls/hr Insulin Glargine (Lantus) 15 unit SC HS [facility] Last Admin: 11/10/16 21:17 Dose: 15 units Insulin Human Regular (Novolin R) 0 unit SC ACHS [facility] PRN Reason: Protocol Last Admin: 11/11/16 13:04 Dose: 4 unit - Labs Labs: 11/11/16 07:10 11/11/16 07:10
== END 2016-11-11 15:25 | disposition home or self-care (01) | DRG 79 ==
LOC: C.ER 08:04 → C.9E 10:24 → C.5T 13:18
PROVIDERS: ADMIT Internal Medicine; ATTEND Internal Medicine
PROC: 5A09357 Assistance with Respiratory Ventilation, Less than 24 Consecutive Hours, Continuous Positive Airway Pressure (ICD-10-PCS; principal; 2016-11-09)
DX: J15.1 Pneumonia due to Pseudomonas (principal); N04.9 Nephrotic syndrome with unspecified morphologic changes; J84.9 Interstitial pulmonary disease, unspecified; J80 Acute respiratory distress syndrome; I50.9 Heart failure, unspecified; I13.0 Hypertensive heart and chronic kidney disease with heart failure and stage 1 through stage 4 chronic kidney disease, or unspecified chronic kidney disease; E11.22 Type 2 diabetes mellitus with diabetic chronic kidney disease; N18.9 Chronic kidney disease, unspecified; J44.0 Chronic obstructive pulmonary disease with (acute) lower respiratory infection; Z99.81 Dependence on supplemental oxygen; Z86.711 Personal history of pulmonary embolism; Z87.891 Personal history of nicotine dependence; Z86.718 Personal history of other venous thrombosis and embolism; I25.2 Old myocardial infarction; E78.5 Hyperlipidemia, unspecified

== ENCOUNTER 2017-01-14 15:06 | Inpatient (IN) | payer MEDICAID ==
[2017-01-14 15:06] VITALS: BMI 29.5
--- NOTE | 2017-01-14 16:25 | C.PDOC ---
History Of Present Illness 46 y/o male with h/o HTN, CHF, COPD, DVT (right leg- on Eliquis), IVC filter, DM II , and CKD presents to the ED c/o intermittnet shortness of breath for the last three days and chest pain since today. Chest pain feels like a pressure sensation, and is nonradiating, nonpleuritic, nonreproducible. The patient denies fever, palpitations, abdominal pain, nausea, vomiting, diarrhea, worsening leg edema. Time Seen by Provider: 01/14/17 16:06 Chief Complaint (Nursing): Chest Pain History Per: Patient History/Exam Limitations: no limitations Onset/Duration Of Symptoms: Days Current Symptoms Are (Timing): Still Present Severity: Moderate Quality: "Pain" Past Medical History Reviewed: Historical Data, Nursing Documentation, Vital Signs Vital Signs: Last Vital Signs Temp 99.7 F H 01/17/17 18:00 Pulse 88 01/17/17 19:48 Resp 20 01/17/17 18:00 BP 152/82 H 01/17/17 21:36 Pulse Ox 92 L 01/17/17 18:00 - Medical History PMH: Arthritis, Asthma, CHF, COPD, Diabetes, Deep Vein Thrombosis (Right leg. IVC Filter inserted.), HTN, Hyperlipidemia, Pneumonia, Chronic Kidney Disease - [facility] Procedures ASSISTANCE WITH RESPIRATORY VENTILATION, 24-96 HRS, CPAP (10/14/16) ASSISTANCE WITH RESPIRATORY VENTILATION, <24 HRS, CPAP (11/09/16) DRAINAGE OF SPINAL CANAL, PERCUTANEOUS APPROACH, DIAGNOSTIC (05/03/15) EXTIRPATION OF MATTER FROM R COM ILIAC VEIN, PERC APPROACH (05/25/16) INSERT INFUSION DEV IN R INT JUGULAR VEIN, PERC (05/25/16) INSERTION OF ENDOTRACHEAL AIRWAY INTO TRACHEA, VIA OPENING (05/25/16) INSERTION OF INFUSION DEV INTO R FEMOR VEIN, PERC APPROACH (01/25/16) INSERTION OF INFUSION DEV INTO SUP VENA CAVA, PERC APPROACH (05/25/16) INSERTION OF INTRALUM DEV INTO INF VENA CAVA, PERC APPROACH (05/25/16) PERFORMANCE OF URINARY FILTRATION, MULTIPLE (05/25/16) RESPIRATORY VENTILATION, GREATER THAN 96 CONSECUTIVE HOURS (05/25/16) TETANUS TOXOID ADMINIST (07/19/13) Family History: States: Diabetes - Social History Hx Tobacco Use: No Hx Alcohol Use: (former drinker) Hx Substance Use: No - Immunization History Hx Tetanus Toxoid Vaccination: Yes (07/19/13) Hx Influenza Vaccination: Yes Hx Pneumococcal Vaccination: No Review Of Systems Except As Marked, All Systems Reviewed And Found Negative. Constitutional: Negative for: Fever, Chills Cardiovascular: Positive for: Chest Pain (pressure sensation ). Negative for: Palpitations Respiratory: Positive for: Shortness of Breath. Negative for: Cough Gastrointestinal: Negative for: Nausea, Vomiting, Abdominal Pain, Diarrhea Musculoskeletal: Negative for: Back Pain, Leg Pain Skin: Negative for: Rash Neurological: Negative for: Weakness, Numbness Physical Exam - Physical Exam Appears: Well, Non-toxic, Other (comfortable, speaking in short sentences, morbidly obese) Skin: Normal Color, Warm, Dry, No Rash Head: Normacephalic Oral Mucosa: Moist Neck: Supple Cardiovascular: Rhythm Regular Respiratory: No Accessory Muscle Use, Rales (bilaterally at the bases ), No Rhonchi, No Wheezing Gastrointestinal/Abdominal: Normal Exam, Bowel Sounds, Soft, No Tenderness, Other (obese) Extremity: Pedal Edema (+1 pitting edema B/L LEs), No Calf Tenderness, Capillary Refill (<2sec.) Pulses: Left Dorsalis Pedis: Normal, Right Dorsalis Pedis: Normal Neurological/Psych: Oriented x3 ED Course And Treatment - Laboratory Results Result Diagrams: 01/17/17 08:00 01/17/17 08:00 ECG: Interpreted By Me, Viewed By Me (sinus tachycardia 117 bpm, normal axis, RBBB, ST depressions V2, V3, V4) ECG Interpretation: Abnormal O2 Sat by Pulse Oximetry: 92 (RA) Pulse Ox Interpretation: Normal - Radiology CXR: Interpreted by Me, Viewed By Me (pulmonary vascular congestion) Progress Note: Blood work, CXR, EKG ordered and reviewed. Patient given PO ASA , IV Lasix, SL nitro. 6:00pm- Discussed patient with Dr. Mayes, he would like Eliquis stopped, heparin bolus + drip added and patient to be ICU admission. Dr. Long in agreement with ICU admission. 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 He would like patient to be telemetry admission at this time, requests Dr. Mayes for cardiology (pending call back). Will cover patient with antibiotics for possible pneumonia due to leukocytosis and CXR difficult to determine if infiltrate present due to vascular congestion. Critical Care Time - Critical Care Note Total Time (in mins): 45 Documented critical care: time excludes all time spent performing seperately billable procedures. Disposition - Disposition Disposition: HOSPITALIZED Disposition Time: 17:32 Condition: GUARDED - Clinical Impression Clinical Impression: Dyspnea, NSTEMI (non-ST elevated myocardial infarction), CHF (congestive heart failure), Congestive heart failure - Scribe Statement The provider has reviewed the documentation as recorded by the Scribe Jackie Tena All medical record entries made by the Scribe were at my direction and personally dictated by me. I have reviewed the chart and agree that the record accurately reflects my personal performance of the history, physical exam, medical decision making, and the department course for this patient. I have also personally directed, reviewed, and agree with the discharge instructions and disposition. Decision To Admit - Pt Status Changed To: Hospital Disposition Of: Inpatient - Admit Certification Admit to Inpatient:: After my assessment, the patient will require hospitalization for at least two midnights. This is because of the severity of symptoms shown, intensity of services needed, and/or the medical risk in this patient being treated as an outpatient. - InPatient: Physician Admission Certification: I certify that this patient requires 2 or more midnights of care for the following reason:: see notes - . Bed Request Type: ICU Admitting Physician: Dae Long Patient Diagnosis: NSTEMI (non-ST elevated myocardial infarction), Dyspnea, Chest pain, Congestive heart failure
[2017-01-14 16:35] LABS: BASO # 0.3 K/uL (0.0-0.2); BASO % 1.3 % (0.0-2.0); EOS # 0.8 K/uL (0.0-0.7); HEMATOCRIT 43.7 % (35.0-51.0); LYMPH # 2.5 K/uL (1.0-4.3); LYMPH % 13.4 % (20.0-40.0); MEAN CELL VOLUME 81.7 fL (80.0-94.0); MEAN CORPUSCULAR HEMOGLOBIN 26.2 pg (27.0-31.0); MEAN CORPUSCULAR HGB CONC 32.1 g/dL (33.0-37.0); MEAN PLATELET VOLUME 10.7 fL (7.2-11.7); MONO % 10.9 % (0.0-10.0); NRBC % 1.6 % (0.0-2.0); RED CELL DISTRIBUTION WIDTH 19.4 % (11.5-14.5); WHITE BLOOD COUNT 18.8 K/uL (4.8-10.8)
[2017-01-14 16:42] LABS: CHLORIDE 97 mmol/L (98-107); POTASSIUM 5.6 mmol/L (3.6-5.2); SODIUM 133 mmol/L (132-148)
[2017-01-14 16:44] LABS: ALB/GLOB RATIO 1.1 (1.0-2.1); ALKALINE PHOSPHATASE 253 U/L (38-126); AST/SGOT 62 U/L (17-59); BILIRUBIN,TOTAL 1.5 mg/dL (0.2-1.3); BLOOD UREA NITROGEN 29 mg/dL (9-20); CARBON DIOXIDE 26 mmol/L (22-30); GFR AFRICAN-AMERICAN > 60; TOTAL PROTEIN 7.3 g/dL (6.3-8.3)
[2017-01-14 16:45] LABS: ALT/SGPT 38 U/L (21-72); CALCIUM 8.4 mg/dl (8.6-10.4); GLUCOSE,RANDOM 97 mg/dL (75-110)
[2017-01-14 16:51] LABS: INR 1.4
[2017-01-14] MEDS ORDERED: Albuterol-Ipratrop 3 mg / 0.5 (3 ml) UD INH STA (17:01)
[2017-01-14] MEDS ORDERED: Albuterol-Ipratrop 3 mg / 0.5 (3 ml) UD ONE (17:19)
--- NOTE | 2017-01-14 17:27 | RAD ---
PROCEDURE: CHEST RADIOGRAPH, 1 VIEW HISTORY: Shortness of breath COMPARISON: 11/09/2016 FINDINGS: LUNGS: Prominent diffuse increased markings in both lung capps which may represent prominent edema and or infiltrate. Underlying fibrosis cannot entirely be excluded. PLEURA: As above. CARDIOVASCULAR: Cardiomegaly. OSSEOUS STRUCTURES: No significant abnormalities. VISUALIZED UPPER ABDOMEN: Normal. OTHER FINDINGS: None. IMPRESSION: Prominent diffuse increased markings in both lung capps which may represent prominent edema and or infiltrate. Underlying fibrosis cannot entirely be excluded. Cardiomegaly.
[2017-01-14] MEDS ORDERED: cefTRIAXone IV 1 gm in Dextros 50 ML IVPB STA (17:33)
[2017-01-14] MEDS ORDERED: Azithromycin 500 MG in Sodium Chloride 0.9% 250 ML IVPB STA (17:34)
[2017-01-14] MEDS ORDERED: Heparin25000 units/250ml 1/2NS 25,000 UNITS/250 ML BAG IV STA ×2 (17:58→19:07)
--- NOTE | 2017-01-14 19:03 | CP.PCM.CON ---
History of Present Illness - History of Present Illness History of Present Illness: Chief complaint: Congested lungs, shortness of breath. History present illness: 46-year-old male with history of COPD bronchial asthma diabetes hypertension DVT on anticoagulation History of liver cirrhosis, renal insufficiency. Patient was doing well until 2 days ago, he started noticing some increasing shortness of breath. Cough is noted. He is having no chest pain. He is using the oxygen and BiPAP are to home He denies headache fever. He is feeling comfortable otherwise. No nausea vomiting. His blood sugar is slightly on the high side otherwise Past medical history as noted above. Surgical history splenectomy Family history diabetes. Social history: years ago used to be a smoker heavy. No known drug allergy Review of system: Currently having no headache, Having increasing shortness of breath noted. Cough occasionally noted. Wheezing present occasionally. Patient is in a brace at home, oxygen at,, BiPAP Currently having no chest pain. Minimal discomfort in the right upper shoulder region noted Exertional dyspnea noted. Leg swelling present Vital signs reviewed No neck vein distention noted Chest good air entry bilaterally, no wheezing or rales noted CVS regular heart sound, no murmur noted Abdomen soft, nontender. 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 Mild elevation of the troponin noted, renal functions are stable. Elevated WBC noted discussed with the parliamentary archivist, patient will need intensive care unit monitoring, BiPAP,apparently. Assessment and recommendation: 45-year-old male with multiple medical history including COPD asthma diabetes hypertension DVT history of AR in the past and liver cirrhosis and. Patient possibly has obstructive sleep apnea renal insufficiency, the patient is currently having non-ST elevation AR. Acute pulmonary edema likely. Lasix. Heparin drip. Cardiology evaluation. ICU monitoring. Antibiotic. Past Patient History - Infectious Disease Hx of Infectious Diseases: None - Past Medical History & Family History Past Medical History?: Yes - Past Social History Smoking Status: Former Smoker - CARDIAC Hx Congestive Heart Failure: Yes Hx Hypertension: Yes - PULMONARY Hx Asthma: Yes Hx Chronic Obstructive Pulmonary Disease (COPD): Yes Hx Pneumonia: Yes - NEUROLOGICAL Hx Neurological Disorder: Yes - HEENT Hx HEENT Problems: No - RENAL Hx Chronic Kidney Disease: Yes - ENDOCRINE/METABOLIC Hx Endocrine Disorders: Yes Hx Diabetes Mellitus Type 2: Yes - HEMATOLOGICAL/ONCOLOGICAL Hx Blood Disorders: No - INTEGUMENTARY Hx Dermatological Problems: Yes Hx Cellulitis: Yes - MUSCULOSKELETAL/RHEUMATOLOGICAL Hx Arthritis: Yes - GASTROINTESTINAL Hx Gastrointestinal Disorders: No - GENITOURINARY/GYNECOLOGICAL Hx Genitourinary Disorders: No - PSYCHIATRIC Hx Substance Use: No - SURGICAL HISTORY Hx Surgeries: Yes Hx Splenectomy: Yes Other/Comment: IVC Filter placement - ANESTHESIA Hx Anesthesia: Yes Hx Anesthesia Reactions: No Hx Malignant Hyperthermia: No Meds Allergies/Adverse Reactions: Allergies Allergy/AdvReac Type Severity Reaction Status Date / Time EGG Allergy Intermediate RASH Verified 10/14/16 08:51 - Medications Medications: Current Medications Albuterol/Ipratropium (Duoneb 3 Mg/0.5 Mg (3 Ml) Ud) 3 ml INH RQ6 [facility] Amlodipine Besylate (Norvasc) 5 mg PO DAILY [facility] Aspirin (Aspirin Chewable) 81 mg PO DAILY [facility] Furosemide (Lasix) 40 mg IVP Q12 [facility] Losartan Potassium (Cozaar) 50 mg PO DAILY [facility] Montelukast Sodium (Singulair) 10 mg PO HS [facility] Pantoprazole Sodium (Protonix Ec Tab) 40 mg PO DAILY [facility] Rosuvastatin Calcium (Crestor) 20 mg PO HS [facility] Results - Vital Signs Recent Vital Signs: Last Vital Signs Temp Pulse 108 H 01/14/17 17:20 Resp 22 01/14/17 17:20 BP 120/75 01/14/17 17:20 Pulse Ox 92 L 01/14/17 18:04 - Labs Result Diagrams: 01/14/17 16:26 01/14/17 16:26 Labs: Laboratory Results - last 24 hr 01/14/17 01/14/17 01/14/17 16:26 16:26 16:26 WBC 18.8 H D RBC 5.35 Hgb 14.0 Hct 43.7 MCV 81.7 D MCH 26.2 L MCHC 32.1 L RDW 19.4 H Plt Count 133 MPV 10.7 Neut % (Auto) 70.4 Lymph % (Auto) 13.4 L Larue % (Auto) 10.9 H Eos % (Auto) 4.0 Baso % (Auto) 1.3 Neut # 13.2 H Lymph # 2.5 Larue # 2.0 H Eos # 0.8 H Baso # 0.3 H PT 15.3 H INR 1.4 APTT 78 H Sodium 133 Potassium 5.6 H Chloride 97 L Carbon Dioxide 26 Anion Gap 16 BUN 29 H Creatinine 1.3 Est GFR ( Amer) > 60 Est GFR (Non-Af Amer) 59 Random Glucose 97 Calcium 8.4 L Total Bilirubin 1.5 H AST 62 H ALT 38 Alkaline Phosphatase 253 H Total Creatine Kinase 129 CK-MB (Mass) 5.70 H Troponin I 1.6600 H* NT-Pro-B Natriuret Pep 7100 H Total Protein 7.3 Albumin 3.7 Globulin 3.6 Albumin/Globulin Ratio 1.1
[2017-01-14] MEDS: Albuterol-Ipratrop 3 mg / 0.5 (3 ml) UD INH SCH (21:48)
--- NOTE | 2017-01-14 22:47 | CP.PCM.CON ---
Past Patient History - Infectious Disease Hx of Infectious Diseases: None - Past Medical History & Family History Past Medical History?: Yes - Past Social History Smoking Status: Former Smoker - CARDIAC Hx Angina: Yes Hx Congestive Heart Failure: Yes Hx Hypertension: Yes - PULMONARY Hx Asthma: Yes Hx Chronic Obstructive Pulmonary Disease (COPD): Yes Hx Pneumonia: Yes - NEUROLOGICAL Hx Neurological Disorder: Yes - HEENT Hx HEENT Problems: No - RENAL Hx Chronic Kidney Disease: Yes - ENDOCRINE/METABOLIC Hx Endocrine Disorders: Yes Hx Diabetes Mellitus Type 2: Yes - HEMATOLOGICAL/ONCOLOGICAL Hx Blood Disorders: No - INTEGUMENTARY Hx Dermatological Problems: Yes Hx Cellulitis: Yes - MUSCULOSKELETAL/RHEUMATOLOGICAL Hx Arthritis: Yes - GASTROINTESTINAL Hx Gastrointestinal Disorders: No - GENITOURINARY/GYNECOLOGICAL Hx Genitourinary Disorders: No - PSYCHIATRIC Hx Substance Use: No - SURGICAL HISTORY Hx Surgeries: Yes Hx Splenectomy: Yes Other/Comment: IVC Filter placement - ANESTHESIA Hx Anesthesia: Yes Hx Anesthesia Reactions: No Hx Malignant Hyperthermia: No Meds Allergies/Adverse Reactions: Allergies Allergy/AdvReac Type Severity Reaction Status Date / Time EGG Allergy Intermediate RASH Verified 10/14/16 08:51 - Medications Medications: Current Medications Albuterol/Ipratropium (Duoneb 3 Mg/0.5 Mg (3 Ml) Ud) 3 ml INH RQ6 [facility] Last Admin: 01/14/17 21:48 Dose: 3 ml Amlodipine Besylate (Norvasc) 5 mg PO DAILY [facility] Aspirin (Aspirin Chewable) 81 mg PO DAILY [facility] Furosemide (Lasix) 40 mg IVP Q12 [facility] Last Admin: 01/14/17 21:47 Dose: 40 mg Heparin Sodium/Sodium Chloride (Heparin 70403 Units/250ml 1/2 Normal Saline) 25 ,000 units in 250 mls @ 14.969 mls/hr IV .[id number] STA; 12 UNITS/KG/HR PRN Reason: Protocol Stop: 01/15/17 11:49 Last Admin: 01/14/17 19:20 Dose: 12 units/kg/hr, 14.969 mls/hr Azithromycin 500 mg/ Sodium (Chloride) 250 mls @ 250 mls/hr IVPB DAILY [facility] Ceftriaxone Sodium 1 gm/ (Sodium Chloride) 100 mls @ 100 mls/hr IVPB Q12H [facility] Insulin Human Regular (Novolin R) 0 unit SC ACHS [facility] PRN Reason: Protocol Losartan Potassium (Cozaar) 50 mg PO DAILY [facility] Montelukast Sodium (Singulair) 10 mg PO HS [facility] Last Admin: 01/14/17 21:47 Dose: 10 mg Pantoprazole Sodium (Protonix Ec Tab) 40 mg PO DAILY [facility] Rosuvastatin Calcium (Crestor) 20 mg PO HS [facility] Last Admin: 01/14/17 21:47 Dose: 20 mg Results - Vital Signs Recent Vital Signs: Last Vital Signs Temp Pulse 104 H 01/14/17 22:20 Resp 17 01/14/17 22:20 BP 122/80 01/14/17 22:07 Pulse Ox 95 01/14/17 22:20 - Labs Result Diagrams: 01/14/17 16:26 01/14/17 16:26 Labs: Laboratory Results - last 24 hr 01/14/17 01/14/17 01/14/17 16:26 16:26 16:26 WBC 18.8 H D RBC 5.35 Hgb 14.0 Hct 43.7 MCV 81.7 D MCH 26.2 L MCHC 32.1 L RDW 19.4 H Plt Count 133 MPV 10.7 Neut % (Auto) 70.4 Lymph % (Auto) 13.4 L Summers % (Auto) 10.9 H Eos % (Auto) 4.0 Baso % (Auto) 1.3 Neut # 13.2 H Lymph # 2.5 Summers # 2.0 H Eos # 0.8 H Baso # 0.3 H PT 15.3 H INR 1.4 APTT 78 H Sodium 133 Potassium 5.6 H Chloride 97 L Carbon Dioxide 26 Anion Gap 16 BUN 29 H Creatinine 1.3 Est GFR ( Amer) > 60 Est GFR (Non-Af Amer) 59 POC Glucose (mg/dL) Random Glucose 97 Calcium 8.4 L Total Bilirubin 1.5 H AST 62 H ALT 38 Alkaline Phosphatase 253 H Total Creatine Kinase 129 CK-MB (Mass) 5.70 H Troponin I 1.6600 H* NT-Pro-B Natriuret Pep 7100 H Total Protein 7.3 Albumin 3.7 Globulin 3.6 Albumin/Globulin Ratio 1.1 01/14/17 22:18 WBC RBC Hgb Hct MCV MCH MCHC RDW Plt Count MPV Neut % (Auto) Lymph % (Auto) Summers % (Auto) Eos % (Auto) Baso % (Auto) Neut # Lymph # Summers # Eos # Baso # PT INR APTT Sodium Potassium Chloride Carbon Dioxide Anion Gap BUN Creatinine Est GFR ( Amer) Est GFR (Non-Af Amer) POC Glucose (mg/dL) 141 H Random Glucose Calcium Total Bilirubin AST ALT Alkaline Phosphatase Total Creatine Kinase CK-MB (Mass) Troponin I NT-Pro-B Natriuret Pep Total Protein Albumin Globulin Albumin/Globulin Ratio
[2017-01-15] MEDS: Albuterol-Ipratrop 3 mg / 0.5 (3 ml) UD INH SCH ×4 (02:57→20:45)
[2017-01-15 05:00] LABS: BASO # 0.1 K/uL (0.0-0.2); EOS # 0.9 K/uL (0.0-0.7); HEMATOCRIT 45.1 % (35.0-51.0); MONO # 2.2 K/uL (0.0-0.8)
[2017-01-15 05:20] LABS: POTASSIUM 4.8 mmol/L (3.6-5.2)
[2017-01-15 05:22] LABS: ALB/GLOB RATIO 0.8 (1.0-2.1); BASO % 0.4 % (0.0-2.0); BILIRUBIN,TOTAL 0.5 mg/dL (0.2-1.3); EOS % 5.6 % (0.0-4.0); LYMPH # 2.8 K/uL (1.0-4.3); LYMPH % 17.2 % (20.0-40.0); MEAN CELL VOLUME 82.9 fL (80.0-94.0); MEAN CORPUSCULAR HEMOGLOBIN 26.2 pg (27.0-31.0); MEAN CORPUSCULAR HGB CONC 31.6 g/dL (33.0-37.0); MEAN PLATELET VOLUME 10.5 fL (7.2-11.7); MONO % 13.8 % (0.0-10.0); NRBC % 1.7 % (0.0-2.0); RED CELL DISTRIBUTION WIDTH 19.1 % (11.5-14.5); TOTAL PROTEIN 7.5 g/dL (6.3-8.3); WHITE BLOOD COUNT 16.2 K/uL (4.8-10.8)
[2017-01-15 05:23] LABS: CALCIUM 8.6 mg/dl (8.6-10.4); PHOSPHOROUS 6.6 mg/dL (2.5-4.5)
[2017-01-15 05:58] LABS: TROPONIN I 4.21 ng/mL (0.00-0.120)
[2017-01-15] MEDS: (Novolin R) Insulin Human Regular 100 units/ml vial SC SCH ×4 (07:51→21:39)
[2017-01-15] MEDS: Pantoprazole 40 mg EC Tab PO SCH (10:15)
[2017-01-15] MEDS: Azithromycin 500 MG in Sodium Chloride 0.9% 250 ML IVPB SCH (11:00)
--- NOTE | 2017-01-15 16:21 | CP.PCM.PN ---
Subjective - Date & Time of Evaluation Date of Evaluation: 01/15/17 Time of Evaluation: 09:24 - Subjective Subjective: SOB improved, no cp, no events overnight, remained on bipap, as per patient on CPAP at home and on as needed oxygen some time uses all day. Objective - Vital Signs/Intake and Output Vital Signs (last 24 hours): Temp Pulse Resp BP Pulse Ox 98.2 F 90 15 149/82 95 01/15/17 04:00 01/15/17 08:12 01/15/17 07:07 01/15/17 07:07 01/15/17 07:07 Intake and Output: 01/15/17 01/15/17 06:59 18:59 Intake Total 515 15 Output Total 1300 0 Balance -785 15 - Medications Medications: Current Medications Acetaminophen (Tylenol 325mg Tab) 650 mg PO Q6 PRN PRN Reason: Headache Last Admin: 01/15/17 06:23 Dose: 650 mg Albuterol/Ipratropium (Duoneb 3 Mg/0.5 Mg (3 Ml) Ud) 3 ml INH RQ6 [facility] Last Admin: 01/15/17 08:12 Dose: 3 ml Amlodipine Besylate (Norvasc) 5 mg PO DAILY [facility] Aspirin (Aspirin Chewable) 81 mg PO DAILY [facility] Furosemide (Lasix) 40 mg IVP Q12 [facility] Last Admin: 01/14/17 21:47 Dose: 40 mg Heparin Sodium/Sodium Chloride (Heparin 75848 Units/250ml 1/2 Normal Saline) 25 ,000 units in 250 mls @ 14.969 mls/hr IV .[id number] STA; 12 UNITS/KG/HR PRN Reason: Protocol Stop: 01/15/17 11:49 Last Admin: 01/14/17 19:20 Dose: 12 units/kg/hr, 14.969 mls/hr Azithromycin 500 mg/ Sodium (Chloride) 250 mls @ 250 mls/hr IVPB DAILY [facility] Ceftriaxone Sodium 1 gm/ (Sodium Chloride) 100 mls @ 100 mls/hr IVPB Q12H [facility] Insulin Human Regular (Novolin R) 0 unit SC ACHS [facility] PRN Reason: Protocol Last Admin: 01/15/17 07:51 Dose: Not Given Losartan Potassium (Cozaar) 50 mg PO DAILY [facility] Montelukast Sodium (Singulair) 10 mg PO HS [facility] Last Admin: 01/14/17 21:47 Dose: 10 mg Pantoprazole Sodium (Protonix Ec Tab) 40 mg PO DAILY [facility] Rosuvastatin Calcium (Crestor) 20 mg PO HS [facility] Last Admin: 01/14/17 21:47 Dose: 20 mg - Labs Labs: 01/15/17 04:53 01/15/17 04:53 PT 15.3 SECONDS (9.7-12.2) H 01/14/17 16:26 INR 1.4 01/14/17 16:26 APTT 82 SECONDS (21-34) H D 01/15/17 04:53 - Additional Findings Additional findings: * HEENT IMTIAZ * Neck Short supple * Chest diffuse crackling noise in the lower half lungs * CVS regular, no murmur or gallop * PA soft, nt, bs present * Ext no edema * PERCHER awake oriented x3 * Skin euvolemic Assessment and Plan - Assessment and Plan (Free Text) Assessment: * NSTEMI * Chronic interstitial lung disease more likely then pulm edema on home o2, brochiactatic and fibrotic changes see on prior CT * H/o alcohol and tobacc abuse ex * Cirrhosis * H/o DVT * Obese, suspected sleep apnea * Renal insufficiency, will change lasix to baseline oral bid * DM will restart home dose 70/30 * Plan: * Dual antiplatelate therapy, statin, losartan * Heparin, therapeutic * Add low dose metoprolol, * Target euglycemia * Will send procalcitonin, as pna less likely * Continue pts pulmonary meds *
[2017-01-15] MEDS: (Novolin 70/30) NPH/Regular 70/30 Units/ml 10 ml vial SC SCH (16:30)
[2017-01-15] MEDS: Enoxaparin 120 mg Syringe SC SCH ×2 (16:30→22:31)
--- NOTE | 2017-01-15 19:02 | CP.PCM.PN ---
Subjective - Date & Time of Evaluation Date of Evaluation: 01/15/17 Time of Evaluation: 19:01 - Subjective Subjective: pt is feeling better no cough troponin high no chest pain using bipap renal function stable but elevated creatinine cardiology eval echo lovenox will f/u Objective - Vital Signs/Intake and Output Vital Signs (last 24 hours): Temp Pulse Resp BP Pulse Ox 98.1 F 92 H 14 107/68 90 L 01/15/17 16:00 01/15/17 17:00 01/15/17 17:00 01/15/17 18:00 01/15/17 17:00 Intake and Output: 01/15/17 01/16/17 18:59 06:59 Intake Total 2040 Output Total 1600 Balance 440 - Medications Medications: Current Medications Acetaminophen (Tylenol 325mg Tab) 650 mg PO Q6 PRN PRN Reason: Headache Last Admin: 01/15/17 06:23 Dose: 650 mg Albuterol/Ipratropium (Duoneb 3 Mg/0.5 Mg (3 Ml) Ud) 3 ml INH RQ6 [facility] Last Admin: 01/15/17 13:42 Dose: 3 ml Amlodipine Besylate (Norvasc) 5 mg PO DAILY [facility] Last Admin: 01/15/17 10:16 Dose: 5 mg Aspirin (Aspirin Chewable) 81 mg PO DAILY [facility] Last Admin: 01/15/17 10:15 Dose: 81 mg Enoxaparin Sodium (Lovenox) 110 mg SC Q12 [facility] Last Admin: 01/15/17 16:30 Dose: 110 mg Furosemide (Lasix) 40 mg IVP Q12 [facility] Last Admin: 01/15/17 10:17 Dose: 40 mg Azithromycin 500 mg/ Sodium (Chloride) 250 mls @ 250 mls/hr IVPB DAILY [facility] Last Admin: 01/15/17 11:00 Dose: 250 mls/hr Ceftriaxone Sodium 1 gm/ (Sodium Chloride) 100 mls @ 100 mls/hr IVPB Q12H [facility] Last Admin: 01/15/17 11:19 Dose: 100 mls/hr Insulin Human Isoph/Insulin Regular (Novolin 70/30 (70/30 Units/Ml) 10 Ml) 12 units SC BIDAC [facility] Last Admin: 01/15/17 16:30 Dose: 12 units Insulin Human Regular (Novolin R) 0 unit SC ACHS [facility] PRN Reason: Protocol Last Admin: 01/15/17 17:50 Dose: 2 unit Losartan Potassium (Cozaar) 50 mg PO DAILY [facility] Last Admin: 01/15/17 10:17 Dose: 50 mg Metoprolol Tartrate (Lopressor) 25 mg PO BID [facility] Last Admin: 01/15/17 18:00 Dose: 25 mg Montelukast Sodium (Singulair) 10 mg PO HS [facility] Last Admin: 01/14/17 21:47 Dose: 10 mg Pantoprazole Sodium (Protonix Ec Tab) 40 mg PO DAILY [facility] Last Admin: 01/15/17 10:15 Dose: 40 mg Rosuvastatin Calcium (Crestor) 20 mg PO HS [facility] Last Admin: 01/14/17 21:47 Dose: 20 mg - Labs Labs: 01/15/17 04:53 01/15/17 04:53 PT 15.3 SECONDS (9.7-12.2) H 01/14/17 16:26 INR 1.4 01/14/17 16:26 APTT 106 SECONDS (21-34) H* D 01/15/17 12:09
--- NOTE | 2017-01-15 23:25 | CP.PCM.PN ---
Subjective - Date & Time of Evaluation Date of Evaluation: 01/15/17 Time of Evaluation: 19:00 - Subjective Subjective: Non ST CA For cath tomorrow Objective - Vital Signs/Intake and Output Vital Signs (last 24 hours): Temp Pulse Resp BP Pulse Ox 98.1 F 84 16 125/71 97 01/15/17 20:00 01/15/17 23:07 01/15/17 23:07 01/15/17 23:07 01/15/17 23:07 Intake and Output: 01/15/17 01/16/17 18:59 06:59 Intake Total 2040 340 Output Total 1600 600 Balance 440 -260 - Medications Medications: Current Medications Acetaminophen (Tylenol 325mg Tab) 650 mg PO Q6 PRN PRN Reason: Headache Last Admin: 01/15/17 06:23 Dose: 650 mg Albuterol/Ipratropium (Duoneb 3 Mg/0.5 Mg (3 Ml) Ud) 3 ml INH RQ6 [facility] Last Admin: 01/15/17 20:45 Dose: 3 ml Amlodipine Besylate (Norvasc) 5 mg PO DAILY [facility] Last Admin: 01/15/17 10:16 Dose: 5 mg Aspirin (Aspirin Chewable) 81 mg PO DAILY [facility] Last Admin: 01/15/17 10:15 Dose: 81 mg Enoxaparin Sodium (Lovenox) 110 mg SC Q12 [facility] Last Admin: 01/15/17 22:31 Dose: 110 mg Famotidine (Pepcid) 20 mg PO DAILY [facility] Furosemide (Lasix) 40 mg IVP Q12 [facility] Last Admin: 01/15/17 21:37 Dose: 40 mg Azithromycin 500 mg/ Sodium (Chloride) 250 mls @ 250 mls/hr IVPB DAILY [facility] Last Admin: 01/15/17 11:00 Dose: 250 mls/hr Ceftriaxone Sodium 1 gm/ (Sodium Chloride) 100 mls @ 100 mls/hr IVPB Q12H [facility] Last Admin: 01/15/17 22:32 Dose: 100 mls/hr Insulin Human Isoph/Insulin Regular (Novolin 70/30 (70/30 Units/Ml) 10 Ml) 12 units SC BIDAC [facility] Last Admin: 01/15/17 16:30 Dose: 12 units Insulin Human Regular (Novolin R) 0 unit SC ACHS [facility] PRN Reason: Protocol Last Admin: 01/15/17 21:39 Dose: 2 unit Losartan Potassium (Cozaar) 50 mg PO DAILY [facility] Last Admin: 01/15/17 10:17 Dose: 50 mg Metoprolol Tartrate (Lopressor) 25 mg PO BID [facility] Last Admin: 01/15/17 18:00 Dose: 25 mg Montelukast Sodium (Singulair) 10 mg PO HS [facility] Last Admin: 01/15/17 21:38 Dose: 10 mg Pantoprazole Sodium (Protonix Ec Tab) 40 mg PO DAILY [facility] Last Admin: 01/15/17 10:15 Dose: 40 mg Rosuvastatin Calcium (Crestor) 20 mg PO HS [facility] Last Admin: 01/15/17 21:38 Dose: 20 mg - Labs Labs: 01/15/17 04:53 01/15/17 04:53 PT 15.3 SECONDS (9.7-12.2) H 01/14/17 16:26 INR 1.4 01/14/17 16:26 APTT 106 SECONDS (21-34) H* D 01/15/17 12:09
[2017-01-16] MEDS: Albuterol-Ipratrop 3 mg / 0.5 (3 ml) UD INH SCH ×4 (01:01→19:56)
[2017-01-16 06:17] LABS: HEMATOCRIT 42.8 % (35.0-51.0); MEAN CELL VOLUME 83.4 fL (80.0-94.0); MEAN CORPUSCULAR HEMOGLOBIN 26.2 pg (27.0-31.0); MEAN CORPUSCULAR HGB CONC 31.5 g/dL (33.0-37.0); MEAN PLATELET VOLUME 11.5 fL (7.2-11.7); WHITE BLOOD COUNT 14.4 K/uL (4.8-10.8)
[2017-01-16 06:29] LABS: INR 1.4
[2017-01-16 06:39] LABS: CALCIUM 8.5 mg/dl (8.6-10.4)
[2017-01-16] MEDS ORDERED: Sodium Chloride 0.45% 1,000 ML IV SCH ×2 (08:15→12:57)
--- NOTE | 2017-01-16 08:20 | CP.PCM.PN ---
Subjective - Date & Time of Evaluation Date of Evaluation: 01/16/17 Time of Evaluation: 08:18 - Subjective Subjective: Cath cancelled due to rising Creatinine Lovenox 110mg bid discontinued IVF Losartan d/mckay Renal evaluation requested before cath ECHO pending Thank you Objective - Vital Signs/Intake and Output Vital Signs (last 24 hours): Temp Pulse Resp BP Pulse Ox 98.2 F 81 17 134/87 91 L 01/16/17 04:00 01/16/17 08:05 01/16/17 06:07 01/16/17 06:07 01/16/17 05:07 Intake and Output: 01/16/17 01/16/17 06:59 18:59 Intake Total 580 0 Output Total 1200 0 Balance -620 0 - Medications Medications: Current Medications Acetaminophen (Tylenol 325mg Tab) 650 mg PO Q6 PRN PRN Reason: Headache Last Admin: 01/16/17 02:05 Dose: 650 mg Albuterol/Ipratropium (Duoneb 3 Mg/0.5 Mg (3 Ml) Ud) 3 ml INH RQ6 [facility] Last Admin: 01/16/17 08:04 Dose: 3 ml Amlodipine Besylate (Norvasc) 5 mg PO DAILY [facility] Last Admin: 01/15/17 10:16 Dose: 5 mg Aspirin (Aspirin Chewable) 81 mg PO DAILY [facility] Last Admin: 01/15/17 10:15 Dose: 81 mg Furosemide (Lasix) 20 mg IVP Q12 [facility] Heparin Sodium (Porcine) (Heparin) 5,000 units SC Q8 [facility] Azithromycin 500 mg/ Sodium (Chloride) 250 mls @ 250 mls/hr IVPB DAILY [facility] Last Admin: 01/15/17 11:00 Dose: 250 mls/hr Ceftriaxone Sodium 1 gm/ (Sodium Chloride) 100 mls @ 100 mls/hr IVPB Q12H [facility] Last Admin: 01/15/17 22:32 Dose: 100 mls/hr Sodium Chloride (Sodium Chloride 0.45%) 1,000 mls @ 80 mls/hr IV .[id number] [facility] Stop: 01/17/17 23:59 Insulin Human Isoph/Insulin Regular (Novolin 70/30 (70/30 Units/Ml) 10 Ml) 12 units SC BIDAC [facility] Last Admin: 01/15/17 16:30 Dose: 12 units Insulin Human Regular (Novolin R) 0 unit SC ACHS [facility] PRN Reason: Protocol Last Admin: 01/15/17 21:39 Dose: 2 unit Metoprolol Tartrate (Lopressor) 25 mg PO BID [facility] Last Admin: 01/15/17 18:00 Dose: 25 mg Montelukast Sodium (Singulair) 10 mg PO HS [facility] Last Admin: 01/15/17 21:38 Dose: 10 mg Pantoprazole Sodium (Protonix Ec Tab) 40 mg PO DAILY [facility] Last Admin: 01/15/17 10:15 Dose: 40 mg Rosuvastatin Calcium (Crestor) 20 mg PO HS [facility] Last Admin: 01/15/17 21:38 Dose: 20 mg - Labs Labs: 01/16/17 06:11 01/16/17 06:11 PT 16.1 SECONDS (9.7-12.2) H 01/16/17 06:11 INR 1.4 01/16/17 06:11 APTT 106 SECONDS (21-34) H* D 01/15/17 12:09
--- NOTE | 2017-01-16 08:23 | CP.PCM.PN ---
Subjective - Date & Time of Evaluation Date of Evaluation: 01/16/17 Time of Evaluation: 08:21 - Subjective Subjective: Patient is sitting up now, not in any distress at this time, he has no nausea vomiting. He has no chest pain. Cough minimally noted. Denies any abdominal symptoms. Blood sugar elevated. Creatinine also arising at this time Vital signs stable. Chest good air entry, regular heart sounds, nontender abdomen. Pedal edema 1+ noted. Assessment and recommendation: 46-year-old male with history of nephrotic syndrome, hypertension, diabetes, hypercholesterolemia, history of IA in the past, DVT, history of pulmonary embolism, chronic lung disease. Now admitted with a non-ST elevation, and also respiratory insufficiency. Pulmonary edema. Improving with Lasix. Continue the current treatment Objective - Vital Signs/Intake and Output Vital Signs (last 24 hours): Temp Pulse Resp BP Pulse Ox 98.2 F 81 17 134/87 91 L 01/16/17 04:00 01/16/17 08:05 01/16/17 06:07 01/16/17 06:07 01/16/17 05:07 Intake and Output: 01/16/17 01/16/17 06:59 18:59 Intake Total 580 0 Output Total 1200 0 Balance -620 0 - Medications Medications: Current Medications Acetaminophen (Tylenol 325mg Tab) 650 mg PO Q6 PRN PRN Reason: Headache Last Admin: 01/16/17 02:05 Dose: 650 mg Albuterol/Ipratropium (Duoneb 3 Mg/0.5 Mg (3 Ml) Ud) 3 ml INH RQ6 [facility] Last Admin: 01/16/17 08:04 Dose: 3 ml Amlodipine Besylate (Norvasc) 5 mg PO DAILY [facility] Last Admin: 01/15/17 10:16 Dose: 5 mg Aspirin (Aspirin Chewable) 81 mg PO DAILY [facility] Last Admin: 01/15/17 10:15 Dose: 81 mg Furosemide (Lasix) 20 mg IVP Q12 [facility] Heparin Sodium (Porcine) (Heparin) 5,000 units SC Q8 [facility] Azithromycin 500 mg/ Sodium (Chloride) 250 mls @ 250 mls/hr IVPB DAILY [facility] Last Admin: 01/15/17 11:00 Dose: 250 mls/hr Ceftriaxone Sodium 1 gm/ (Sodium Chloride) 100 mls @ 100 mls/hr IVPB Q12H [facility] Last Admin: 01/15/17 22:32 Dose: 100 mls/hr Sodium Chloride (Sodium Chloride 0.45%) 1,000 mls @ 80 mls/hr IV .[id number] [facility] Stop: 01/17/17 23:59 Insulin Human Isoph/Insulin Regular (Novolin 70/30 (70/30 Units/Ml) 10 Ml) 12 units SC BIDAC [facility] Last Admin: 01/15/17 16:30 Dose: 12 units Insulin Human Regular (Novolin R) 0 unit SC ACHS [facility] PRN Reason: Protocol Last Admin: 01/15/17 21:39 Dose: 2 unit Metoprolol Tartrate (Lopressor) 25 mg PO BID [facility] Last Admin: 01/15/17 18:00 Dose: 25 mg Montelukast Sodium (Singulair) 10 mg PO HS [facility] Last Admin: 01/15/17 21:38 Dose: 10 mg Pantoprazole Sodium (Protonix Ec Tab) 40 mg PO DAILY [facility] Last Admin: 01/15/17 10:15 Dose: 40 mg Rosuvastatin Calcium (Crestor) 20 mg PO HS [facility] Last Admin: 01/15/17 21:38 Dose: 20 mg - Labs Labs: 01/16/17 06:11 01/16/17 06:11 PT 16.1 SECONDS (9.7-12.2) H 01/16/17 06:11 INR 1.4 01/16/17 06:11 APTT 106 SECONDS (21-34) H* D 01/15/17 12:09
[2017-01-16] MEDS: (Novolin R) Insulin Human Regular 100 units/ml vial SC SCH ×4 (08:27→22:17)
[2017-01-16] MEDS: (Novolin 70/30) NPH/Regular 70/30 Units/ml 10 ml vial SC SCH ×2 (08:36→19:46)
--- NOTE | 2017-01-16 09:18 | RAD ---
HISTORY: pneumonia COMPARISON: Portable chest 01/14/2017. FINDINGS: LUNGS: No alveolitis is appreciate bilaterally however the reticular markings remain increased bilaterally restrained motion degrades quality exam further. No signal changes appreciated. PLEURA: No significant pleural effusion identified, no pneumothorax apparent. CARDIOVASCULAR: There is stable cardiomegaly. Pulmonary vascular pattern does not appear simply increased. OSSEOUS STRUCTURES: No significant abnormalities. VISUALIZED UPPER ABDOMEN: Normal. OTHER FINDINGS: None. IMPRESSION: Persistent interstitial pneumonitis versus potential limited pulmonary venous congestion manifest by interstitial markings alone. Clinically correlate further.
[2017-01-16] MEDS: Pantoprazole 40 mg EC Tab PO SCH (09:46)
[2017-01-16] MEDS: Azithromycin 500 MG in Sodium Chloride 0.9% 250 ML IVPB SCH (09:47)
--- NOTE | 2017-01-16 10:42 | CARD ---
APPROVED REPORT EKG Measurement Heart [id number] PA [id number] [id number] <Conclusion> Sinus tachycardia Right bundle branch block, plus right ventricular hypertrophy Abnormal ECG
--- NOTE | 2017-01-16 12:48 | CP.PCM.CON ---
History of Present Illness - History of Present Illness History of Present Illness: Presents wit increasing dyspnea x few days Congested lungs, shortness of breath. Treated with IV lasix for CHF- has had excellent UO Now in IV saline in preparation for cardiac cath in AM History present illness: 46-year-old male with history of COPD, bronchial asthma, diabetes 2,diabetic nephropathy with nephrotic syndrome, hypertension,pulmonary emboli an DVT on anticoagulation History of liver cirrhosis, renal insufficiency. Patient was doing well until 2 days ago, he started noticing some increasing shortness of breath. Cough is noted. He is having no chest pain. He is using the oxygen and BiPAP at home He denies headache fever. He is feeling comfortable otherwise. No nausea vomiting. His blood sugar is slightly on the high side otherwise PSH: splenectomy ivc filter Review of Systems - Constitutional Constitutional: Weight Gain, Weakness - EENT Eyes: absent: As Per HPI, Blind Spots, Blurred Vision, Change in Vision, Decreased Night Vision, Diplopia, Discharge, Dry Eye, Exophthalmos, Floaters, Irritation, Itchy Eyes, Loss of Peripheral Vision, Pain, Photophobia, Requires Corrective Lenses, Sees Flashes, Spots in Vision, Tunnel Vision, Other Visual Disturbances, Loss of Vision, Other Ears: absent: As Per HPI, Decreased Hearing, Ear Discharge, Ear Pain, Tinnitus, Abnormal Hearing, Disequilibrium, Dizziness, Other Nose/Mouth/Throat: absent: As Per HPI, Epistaxis, Nasal Congestion, Nasal Discharge, Nasal Obstruction, Nasal Trauma, Nose Pain, Post Nasal Drip, Sinus Pain, Sinus Pressure, Bleeding Gums, Change in Voice, Dental Pain, Dry Mouth, Dysphagia, Halitosis, Hoarsness, Lip Swelling, Mouth Lesions, Mouth Pain, Odynophagia, Sore Throat, Throat Swelling, Tongue Swelling, Facial Pain, Neck Pain, Neck Mass, Other - Cardiovascular Cardiovascular: Dyspnea on Exertion, Edema - Respiratory Respiratory: Cough, Dyspnea on Exertion - Gastrointestinal Gastrointestinal: Constipation, Nausea - Genitourinary Genitourinary: Urinary Frequency - Musculoskeletal Musculoskeletal: Muscle Cramps, Stiffness - Endocrine Endocrine: As Per HPI Past Patient History - Infectious Disease Hx of Infectious Diseases: None - Past Medical History & Family History Past Medical History?: Yes Past Family History: Reviewed and not pertinent - Past Social History Smoking Status: Former Smoker Chewing Tobacco Use: No Cigar Use: No Drugs: Denies Home Situation {Lives}: With Family - CARDIAC Hx Angina: Yes Hx Congestive Heart Failure: Yes Hx Hypertension: Yes - PULMONARY Hx Asthma: Yes Hx Chronic Obstructive Pulmonary Disease (COPD): Yes Hx Pneumonia: Yes - NEUROLOGICAL Hx Neurological Disorder: Yes - HEENT Hx HEENT Problems: No - RENAL Hx Chronic Kidney Disease: Yes - ENDOCRINE/METABOLIC Hx Endocrine Disorders: Yes Hx Diabetes Mellitus Type 2: Yes - HEMATOLOGICAL/ONCOLOGICAL Hx Blood Disorders: No - INTEGUMENTARY Hx Dermatological Problems: Yes Hx Cellulitis: Yes - MUSCULOSKELETAL/RHEUMATOLOGICAL Hx Arthritis: Yes - GASTROINTESTINAL Hx Gastrointestinal Disorders: No - GENITOURINARY/GYNECOLOGICAL Hx Genitourinary Disorders: No - PSYCHIATRIC Hx Substance Use: No - SURGICAL HISTORY Hx Surgeries: Yes Hx Splenectomy: Yes Other/Comment: IVC Filter placement - ANESTHESIA Hx Anesthesia: Yes Hx Anesthesia Reactions: No Hx Malignant Hyperthermia: No Meds Allergies/Adverse Reactions: Allergies Allergy/AdvReac Type Severity Reaction Status Date / Time EGG Allergy Intermediate RASH Verified 10/14/16 08:51 - Medications Medications: Current Medications Acetaminophen (Tylenol 325mg Tab) 650 mg PO Q6 PRN PRN Reason: Headache Last Admin: 01/16/17 02:05 Dose: 650 mg Albuterol/Ipratropium (Duoneb 3 Mg/0.5 Mg (3 Ml) Ud) 3 ml INH RQ6 [facility] Last Admin: 01/16/17 08:04 Dose: 3 ml Amlodipine Besylate (Norvasc) 5 mg PO DAILY [facility] Last Admin: 01/16/17 09:47 Dose: 5 mg Aspirin (Aspirin Chewable) 81 mg PO DAILY [facility] Last Admin: 01/16/17 09:46 Dose: 81 mg Furosemide (Lasix) 20 mg IVP Q12 [facility] Last Admin: 01/16/17 09:47 Dose: 20 mg Heparin Sodium (Porcine) (Heparin) 5,000 units SC Q8 [facility] Azithromycin 500 mg/ Sodium (Chloride) 250 mls @ 250 mls/hr IVPB DAILY [facility] Last Admin: 01/16/17 09:47 Dose: 250 mls/hr Ceftriaxone Sodium 1 gm/ (Sodium Chloride) 100 mls @ 100 mls/hr IVPB Q12H [facility] Last Admin: 01/16/17 11:47 Dose: 100 mls/hr Sodium Chloride (Sodium Chloride 0.45%) 1,000 mls @ 80 mls/hr IV .[id number] [facility] Stop: 01/17/17 23:59 Last Admin: 01/16/17 08:37 Dose: 80 mls/hr Insulin Human Isoph/Insulin Regular (Novolin 70/30 (70/30 Units/Ml) 10 Ml) 12 units SC BIDAC [facility] Last Admin: 01/16/17 08:36 Dose: 12 units Insulin Human Regular (Novolin R) 0 unit SC ACHS [facility] PRN Reason: Protocol Last Admin: 01/16/17 11:46 Dose: 2 unit Metoprolol Tartrate (Lopressor) 25 mg PO BID [facility] Last Admin: 01/16/17 09:46 Dose: 25 mg Montelukast Sodium (Singulair) 10 mg PO HS [facility] Last Admin: 01/15/17 21:38 Dose: 10 mg Pantoprazole Sodium (Protonix Ec Tab) 40 mg PO DAILY [facility] Last Admin: 01/16/17 09:46 Dose: 40 mg Rosuvastatin Calcium (Crestor) 20 mg PO HS [facility] Last Admin: 01/15/17 21:38 Dose: 20 mg Physical Exam - Constitutional Appears: Non-toxic, Chronically Ill - Head Exam Head Exam: NORMAL INSPECTION - Eye Exam Eye Exam: EOMI, Normal appearance - Neck Exam Neck exam: Positive for: Normal Inspection. Negative for: Tenderness - Respiratory Exam Respiratory Exam: Rhonchi, NORMAL BREATHING PATTERN - Cardiovascular Exam Cardiovascular Exam: REGULAR RHYTHM, +S1 - GI/Abdominal Exam GI & Abdominal Exam: Distended, Soft - Extremities Exam Extremities exam: Positive for: pedal edema. Negative for: tenderness - Neurological Exam Neurological exam: CN II-XII Intact, Oriented x3 - Skin Skin Exam: Dry, Warm Results - Vital Signs Recent Vital Signs: Last Vital Signs Temp 98.4 F 01/16/17 12:00 Pulse 92 H 01/16/17 12:00 Resp 15 01/16/17 12:00 BP 118/66 01/16/17 11:07 Pulse Ox 93 L 01/16/17 12:00 - Labs Result Diagrams: 01/16/17 06:11 01/16/17 06:11 Labs: Laboratory Results - last 24 hr 01/15/17 01/15/17 01/15/17 11:04 12:09 16:26 WBC RBC Hgb Hct MCV MCH MCHC RDW Plt Count MPV PT INR APTT 106 H* D Sodium Potassium Chloride Carbon Dioxide Anion Gap BUN Creatinine Est GFR ( Amer) Est GFR (Non-Af Amer) POC Glucose (mg/dL) 233 H Random Glucose Calcium Procalcitonin 22.11 H 01/15/17 01/16/17 01/16/17 21:28 06:11 06:11 WBC 14.4 H RBC 5.14 Hgb 13.5 Hct 42.8 MCV 83.4 MCH 26.2 L MCHC 31.5 L RDW 19.0 H Plt Count 134 MPV 11.5 PT 16.1 H INR 1.4 APTT Sodium Potassium Chloride Carbon Dioxide Anion Gap BUN Creatinine Est GFR ( Amer) Est GFR (Non-Af Amer) POC Glucose (mg/dL) 219 H Random Glucose Calcium Procalcitonin 01/16/17 01/16/17 01/16/17 06:11 08:04 11:19 WBC RBC Hgb Hct MCV MCH MCHC RDW Plt Count MPV PT INR APTT Sodium 134 Potassium 5.0 Chloride 97 L Carbon Dioxide 25 Anion Gap 17 BUN 48 H Creatinine 2.0 H Est GFR ( Amer) 44 Est GFR (Non-Af Amer) 36 POC Glucose (mg/dL) 132 H 248 H Random Glucose 164 H Calcium 8.5 L Procalcitonin Assessment & Plan (1) CHF (congestive heart failure) Status: Acute (2) CKD stage 3 due to type 2 diabetes mellitus Status: Acute (3) Chronic kidney disease, stage 3 (moderate) Status: Acute (4) Coagulopathy Status: Acute (5) Diabetic nephropathy Status: Acute (6) Nephrotic syndrome Status: Acute (7) COPD (chronic obstructive pulmonary disease) Status: Chronic Priority: Medium - Assessment and Plan (Free Text) Plan: CHF being treated with IV lasix Would decrease IV saline - used for prevention of dye nephropathy but CXR still with CHF pattern mucormyst prophylaxis serial chemistries cardiac cath planned for tomorrow
[2017-01-16] MEDS: Acetylcysteine 20% Inhal Soln (4ml) PO SCH (13:23)
--- NOTE | 2017-01-16 15:02 | CP.CCUPN ---
CCU Subjective - Physician Review Subjective (Free Text): Patient seen and examined at bedside. Patient in no acute distress. Patient denies chest pain, shortness of breath, abdominal pain, nausea, vomiting, constipation, or diarrhea. CCU Objective - Vital Signs / Intake & Output Vital Signs (Last 4 hours): Vital Signs Temp Pulse Resp BP Pulse Ox 01/16/17 14:08 84 24 148/82 01/16/17 14:00 84 23 01/16/17 13:16 83 19 106/54 L 01/16/17 13:00 91 H 17 01/16/17 12:07 83 18 127/73 01/16/17 12:00 98.4 F 92 H 15 93 L 01/16/17 11:07 87 17 118/66 01/16/17 11:00 90 15 Intake and Output (Last 8hrs): Intake & Output 01/15/17 01/16/17 01/16/17 22:59 06:59 14:59 Intake Total 142 425 3285 Output Total 900 1000 750 Balance -340 -660 280 Weight 273 lb Intake: Intake, IV Amount 0 100 590 Left Forearm 0 100 Left Hand 590 Oral 560 240 440 Output: Urine 900 1000 750 Urine, Voided 900 1000 750 Stool 0 Emesis 0 Other: # Voids Urine, Voided 0 # Bowel Movements 0 0 0 - Physical Exam Head: Positive for: Atraumatic, Normocephalic Extroacular Muscles: Positive for: EOMI Mouth: Positive for: Moist Mucous Membranes Respiratory/Chest: Positive for: Clear to Auscultation, Good Air Exchange. Negative for: Respiratory Distress, Accessory Muscle Use Cardiovascular: Positive for: Regular Rate and Rhythm, Normal S1, S2 Abdomen: Positive for: Normal Bowel Sounds. Negative for: Tenderness, Distention Lower Extremity: Negative for: Edema Neurological: Positive for: GCS=15 Skin: Positive for: Warm, Normal Color. Negative for: Rashes Psychiatric: Positive for: Alert, Oriented x 3 - Medications Active Medications: Active Medications Generic Name Dose Route Start Last Admin Trade Name Freq PRN Reason Stop Dose Admin Acetaminophen 650 mg 01/15/17 06:08 01/16/17 02:05 Tylenol 325mg Tab PO 650 mg Q6 PRN Administration Headache Acetylcysteine 3 ml 01/16/17 13:00 01/16/17 13:23 Acetylcysteine 20% PO 01/18/17 22:01 3 ml Q12 ANABELLA Administration Albuterol/Ipratropium 3 ml 01/14/17 20:00 01/16/17 13:44 Duoneb 3 Mg/0.5 Mg (3 Ml) Ud INH 3 ml RQ6 ANABELLA Administration Amlodipine Besylate 5 mg 01/15/17 10:00 01/16/17 09:47 Norvasc PO 5 mg DAILY ANABELLA Administration Aspirin 81 mg 01/15/17 10:00 01/16/17 09:46 Aspirin Chewable PO 81 mg DAILY ANABELLA Administration Furosemide 20 mg 01/16/17 08:09 01/16/17 09:47 Lasix IVP 20 mg Q12 ANABELLA Administration Heparin Sodium (Porcine) 5,000 units 01/16/17 14:00 01/16/17 13:17 Heparin SC 5,000 units Q8 ANABELLA Administration Azithromycin 500 mg/ Sodium 250 mls @ 250 mls/hr 01/15/17 10:00 01/16/17 09: 47 Chloride IVPB 250 mls/hr DAILY ANABELLA Administration Ceftriaxone Sodium 1 gm/ 100 mls @ 100 mls/hr 01/15/17 11:00 01/16/17 11:47 Sodium Chloride IVPB 100 mls/hr Q12H ANABELLA Administration Sodium Chloride 1,000 mls @ 40 mls/hr 01/16/17 12:57 01/16/17 13:16 Sodium Chloride 0.45% IV 01/17/17 23:59 40 mls/hr .Q24H ANABELLA Administration Insulin Human Isoph/Insulin Regular 12 units 01/15/17 16:30 01/16/17 08:36 Novolin 70/30 (70/30 Units/Ml) 10 Ml SC 12 units BIDAC ANABELLA Administration Insulin Human Regular 0 unit 01/15/17 07:30 01/16/17 11:46 Novolin R SC 2 unit ACHS ANABELLA Administration Protocol Metoprolol Tartrate 25 mg 01/15/17 10:00 01/16/17 09:46 Lopressor PO 25 mg BID ANABELLA Administration Montelukast Sodium 10 mg 01/14/17 22:00 01/15/17 21:38 Singulair PO 10 mg HS ANABELLA Administration Pantoprazole Sodium 40 mg 01/15/17 10:00 01/16/17 09:46 Protonix Ec Tab PO 40 mg DAILY ANABELLA Administration Rosuvastatin Calcium 20 mg 01/14/17 22:00 01/15/17 21:38 Crestor PO 20 mg HS ANABELLA Administration - Patient Studies Lab Studies: Microbiology Studies 01/14/17 20:30 Blood Culture - Preliminary Blood NO GROWTH AFTER 24 HOURS 01/14/17 20:30 Blood Culture - Preliminary Blood NO GROWTH AFTER 24 HOURS Lab Studies 01/16/17 01/16/17 01/16/17 Range/Units 11:19 08:04 06:11 WBC (4.8-10.8) K/uL RBC (4.40-5.90) Mil/uL Hgb (12.0-18.0) g/dL Hct (35.0-51.0) % MCV (80.0-94.0) fL MCH (27.0-31.0) pg MCHC (33.0-37.0) g/dL RDW (11.5-14.5) % Plt Count (130-400) K/uL MPV (7.2-11.7) fL PT (9.7-12.2) SECONDS INR Sodium 134 (132-148) mmol/L Potassium 5.0 (3.6-5.2) mmol/L Chloride 97 L (98-107) mmol/L Carbon Dioxide 25 (22-30) mmol/L Anion Gap 17 (10-20) BUN 48 H (9-20) mg/dL Creatinine 2.0 H (0.8-1.5) mg/dL Est GFR ( Amer) 44 Est GFR (Non-Af Amer) 36 POC Glucose (mg/dL) 248 H 132 H (65-110) mg/dL Random Glucose 164 H (75-110) mg/dL Calcium 8.5 L (8.6-10.4) mg/dl Procalcitonin (0.19-0.49) NG/ML 01/16/17 01/16/17 01/15/17 Range/Units 06:11 06:11 21:28 WBC 14.4 H (4.8-10.8) K/uL RBC 5.14 (4.40-5.90) Mil/uL Hgb 13.5 (12.0-18.0) g/dL Hct 42.8 (35.0-51.0) % MCV 83.4 (80.0-94.0) fL MCH 26.2 L (27.0-31.0) pg MCHC 31.5 L (33.0-37.0) g/dL RDW 19.0 H (11.5-14.5) % Plt Count 134 (130-400) K/uL MPV 11.5 (7.2-11.7) fL PT 16.1 H (9.7-12.2) SECONDS INR 1.4 Sodium (132-148) mmol/L Potassium (3.6-5.2) mmol/L Chloride (98-107) mmol/L Carbon Dioxide (22-30) mmol/L Anion Gap (10-20) BUN (9-20) mg/dL Creatinine (0.8-1.5) mg/dL Est GFR ( Amer) Est GFR (Non-Af Amer) POC Glucose (mg/dL) 219 H (65-110) mg/dL Random Glucose (75-110) mg/dL Calcium (8.6-10.4) mg/dl Procalcitonin (0.19-0.49) NG/ML 01/15/17 01/15/17 Range/Units 16:26 11:04 WBC (4.8-10.8) K/uL RBC (4.40-5.90) Mil/uL Hgb (12.0-18.0) g/dL Hct (35.0-51.0) % MCV (80.0-94.0) fL MCH (27.0-31.0) pg MCHC (33.0-37.0) g/dL RDW (11.5-14.5) % Plt Count (130-400) K/uL MPV (7.2-11.7) fL PT (9.7-12.2) SECONDS INR Sodium (132-148) mmol/L Potassium (3.6-5.2) mmol/L Chloride (98-107) mmol/L Carbon Dioxide (22-30) mmol/L Anion Gap (10-20) BUN (9-20) mg/dL Creatinine (0.8-1.5) mg/dL Est GFR ( Amer) Est GFR (Non-Af Amer) POC Glucose (mg/dL) 233 H (65-110) mg/dL Random Glucose (75-110) mg/dL Calcium (8.6-10.4) mg/dl Procalcitonin 22.11 H (0.19-0.49) NG/ML Laboratory Results - last 24 hr 01/15/17 01/15/17 01/15/17 11:04 16:26 21:28 WBC RBC Hgb Hct MCV MCH MCHC RDW Plt Count MPV PT INR Sodium Potassium Chloride Carbon Dioxide Anion Gap BUN Creatinine Est GFR ( Amer) Est GFR (Non-Af Amer) POC Glucose (mg/dL) 233 H 219 H Random Glucose Calcium Procalcitonin 22.11 H 01/16/17 01/16/17 01/16/17 06:11 06:11 06:11 WBC 14.4 H RBC 5.14 Hgb 13.5 Hct 42.8 MCV 83.4 MCH 26.2 L MCHC 31.5 L RDW 19.0 H Plt Count 134 MPV 11.5 PT 16.1 H INR 1.4 Sodium 134 Potassium 5.0 Chloride 97 L Carbon Dioxide 25 Anion Gap 17 BUN 48 H Creatinine 2.0 H Est GFR ( Amer) 44 Est GFR (Non-Af Amer) 36 POC Glucose (mg/dL) Random Glucose 164 H Calcium 8.5 L Procalcitonin 01/16/17 01/16/17 08:04 11:19 WBC RBC Hgb Hct MCV MCH MCHC RDW Plt Count MPV PT INR Sodium Potassium Chloride Carbon Dioxide Anion Gap BUN Creatinine Est GFR ( Amer) Est GFR (Non-Af Amer) POC Glucose (mg/dL) 132 H 248 H Random Glucose Calcium Procalcitonin Fingerstick Blood Sugar Results: 248 Review of Systems - Constitutional Constitutional: absent: Fever, Chills, Sweats - Cardiovascular Cardiovascular: absent: Chest Pain, Dyspnea, Irregular Heart Rhythm, Leg Edema, Palpitations - Respiratory Respiratory: absent: Cough, Dyspnea, Wheezing, Stridor, Chest Congestion - Gastrointestinal Gastrointestinal: absent: Constipation, Diarrhea, Nausea, Vomiting - Genitourinary Genitourinary: absent: Difficulty Urinating - Musculoskeletal Musculoskeletal: absent: Muscle Weakness, Numbness, Tingling - Integumentary Integumentary: absent: Rash - Hematologic/Lymphatic Hematologic: absent: Easy Bleeding, Easy Bruising Critical Care Progress Note - Nutrition Nutrition: Nutrition Category Date Time Status Heart Healthy Diet [DIET] Diets 01/16/17 Breakfast Active Assessment/Plan - Assessment and Plan (Free Text) Assessment: 46 y/o male with history of nephrotic syndrome, hypertension, diabetes, hypercholesterolemia, history of [place] in the past, DVT, history of pulmonary embolism, chronic lung disease admitted with a non-ST elevation, and also respiratory insufficiency. Today's Plan: Patient stable for transfer to telemetry Neuro: intact Montelukast Sodium Duonebs Cardio: Lopressor 25mg po BID Norvasc 5 mg po daily Crestor 20 mg po HS F/u ECHO Cath with Dr. Mayes cancelled today due to increasing BUN/Cr Pulm: pulmonary edema Lasix 20 mg IVP BID Renal: increasing BUN/ Creatinine consulted Dr. Rhoades, help appreciated as per Dr. Rhoades, would decrease IV saline - used for prevention of dye nephropathy but CXR still with CHF pattern ID: Azithromycin Ceftriaxone Endo: hx DM ISS Novolin 70/30 12 u sc BIDAC Prophylaxis: Heparin 5000 u sc q8h Protonix 40 mg po daily 1/2 NS @40 cc /hr as per Dr. Rhoades
[2017-01-17] MEDS: Acetylcysteine 20% Inhal Soln (4ml) PO SCH ×3 (00:57→21:42)
[2017-01-17] MEDS: Albuterol-Ipratrop 3 mg / 0.5 (3 ml) UD INH SCH ×4 (01:20→19:45)
[2017-01-17] MEDS: (Novolin R) Insulin Human Regular 100 units/ml vial SC SCH ×4 (07:30→22:00)
[2017-01-17 08:12] LABS: BASO # 0.1 K/uL (0.0-0.2); BASO % 0.7 % (0.0-2.0); EOS # 1.2 K/uL (0.0-0.7); EOS % 7.1 % (0.0-4.0); HEMATOCRIT 41.7 % (35.0-51.0); LYMPH # 1.6 K/uL (1.0-4.3); LYMPH % 9.8 % (20.0-40.0); MEAN CELL VOLUME 82.8 fL (80.0-94.0); MEAN CORPUSCULAR HEMOGLOBIN 25.9 pg (27.0-31.0); MEAN CORPUSCULAR HGB CONC 31.3 g/dL (33.0-37.0); MEAN PLATELET VOLUME 10.6 fL (7.2-11.7); MONO # 1.9 K/uL (0.0-0.8); MONO % 11.9 % (0.0-10.0); NRBC % 0.5 % (0.0-2.0); PLATELET COUNT 156 K/uL (130-400); RED CELL DISTRIBUTION WIDTH 18.8 % (11.5-14.5); WHITE BLOOD COUNT 16.1 K/uL (4.8-10.8)
[2017-01-17 08:36] LABS: POTASSIUM 4.8 mmol/L (3.6-5.2)
[2017-01-17 08:38] LABS: ALB/GLOB RATIO 0.9 (1.0-2.1); BILIRUBIN,TOTAL 0.5 mg/dL (0.2-1.3); PHOSPHOROUS 3.7 mg/dL (2.5-4.5); TOTAL PROTEIN 7.5 g/dL (6.3-8.3)
[2017-01-17 08:39] LABS: CALCIUM 8.4 mg/dl (8.6-10.4)
[2017-01-17] MEDS: (Novolin 70/30) NPH/Regular 70/30 Units/ml 10 ml vial SC SCH ×2 (10:16→18:47)
[2017-01-17] MEDS: Pantoprazole 40 mg EC Tab PO SCH (10:26)
[2017-01-17 10:41] LABS: EOSINOPHIL 1 % (0-4); MYELOCYTE 2 % (0-0); NEUTROPHIL 38 % (50-75); REACTIVE LYMPHOCYTES 1 % (0-0); TOTAL CELLS COUNTED 100
[2017-01-17] MEDS: Azithromycin 500 MG in Sodium Chloride 0.9% 250 ML IVPB SCH (11:00)
--- NOTE | 2017-01-17 11:05 | CP.PCM.PN ---
<Thelma Santiago DO - Last Filed: 01/17/17 15:32> Subjective - Date & Time of Evaluation Date of Evaluation: 01/17/17 Time of Evaluation: 09:40 - Subjective Subjective: Cardiology progress note for Dr. Mayes Patient seen and examined. Patient reports poor sleep last night due to discomfort with BiPAP mask. Patient states his dyspnea is improved. Patient currently being mucomyst in preparation for cardiac cath. Objective - Vital Signs/Intake and Output Vital Signs (last 24 hours): Temp Pulse Resp BP Pulse Ox 98.5 F 89 20 120/71 94 L 01/17/17 07:00 01/17/17 07:40 01/17/17 07:00 01/17/17 10:12 01/17/17 07:00 Intake and Output: 01/17/17 01/17/17 06:59 18:59 Intake Total 560 Output Total 1675 Balance -1115 - Medications Medications: Current Medications Acetaminophen (Tylenol 325mg Tab) 650 mg PO Q6 PRN PRN Reason: Headache Last Admin: 01/17/17 10:25 Dose: 650 mg Acetylcysteine (Acetylcysteine 20%) 3 ml PO Q12 ANABELLA Stop: 01/18/17 22:01 Last Admin: 01/17/17 10:23 Dose: 3 ml Albuterol/Ipratropium (Duoneb 3 Mg/0.5 Mg (3 Ml) Ud) 3 ml INH RQ6 ANABELLA Last Admin: 01/17/17 08:16 Dose: Not Given Amlodipine Besylate (Norvasc) 5 mg PO DAILY AANBELLA Last Admin: 01/17/17 10:17 Dose: 5 mg Aspirin (Aspirin Chewable) 81 mg PO DAILY ANABELLA Last Admin: 01/17/17 10:12 Dose: 81 mg Furosemide (Lasix) 20 mg IVP Q12 ANABELLA Last Admin: 01/17/17 10:12 Dose: 20 mg Heparin Sodium (Porcine) (Heparin) 5,000 units SC Q8 ANABELLA Last Admin: 01/17/17 06:38 Dose: 5,000 units Azithromycin 500 mg/ Sodium (Chloride) 250 mls @ 250 mls/hr IVPB DAILY A[facility]BELLA Last Admin: 01/16/17 09:47 Dose: 250 mls/hr Ceftriaxone Sodium 1 gm/ (Dextrose) 100 mls @ 100 mls/hr IVPB Q12H [facility]NA[facility]LLA Last Admin: 01/16/17 22:16 Dose: 100 mls/hr Insulin Human Isoph/Insulin Regular (Novolin 70/30 (70/30 Units/Ml) 10 Ml) 12 units SC BIDAC [facility] Last Admin: 01/17/17 10:16 Dose: 12 units Insulin Human Regular (Novolin R) 0 unit SC ACHS [facility] PRN Reason: Protocol Last Admin: 01/17/17 07:30 Dose: Not Given Metoprolol Tartrate (Lopressor) 25 mg PO BID [facility] Last Admin: 01/16/17 19:03 Dose: 25 mg Montelukast Sodium (Singulair) 10 mg PO HS [facility] Last Admin: 01/16/17 22:17 Dose: 10 mg Pantoprazole Sodium (Protonix Ec Tab) 40 mg PO DAILY [facility] Last Admin: 01/17/17 10:26 Dose: 40 mg Rosuvastatin Calcium (Crestor) 20 mg PO HS [facility] Last Admin: 01/16/17 22:15 Dose: 20 mg - Labs Labs: 01/17/17 08:00 01/17/17 08:00 PT 16.1 SECONDS (9.7-12.2) H 01/16/17 06:11 INR 1.4 01/16/17 06:11 APTT 106 SECONDS (21-34) H* D 01/15/17 12:09 - Constitutional Appears: No Acute Distress - Head Exam Head Exam: ATRAUMATIC, NORMOCEPHALIC - Eye Exam Eye Exam: EOMI - ENT Exam ENT Exam: Mucous Membranes Moist - Respiratory Exam Respiratory Exam: Decreased Breath Sounds, Clear to Ausculation Bilateral, NORMAL BREATHING PATTERN - Cardiovascular Exam Cardiovascular Exam: +S1, +S2 - GI/Abdominal Exam GI & Abdominal Exam: Soft, Normal Bowel Sounds. absent: Tenderness - Extremities Exam Extremities Exam: absent: Calf Tenderness, Pedal Edema - Neurological Exam Neurological Exam: Alert, Awake - Psychiatric Exam Psychiatric exam: Normal Affect - Skin Skin Exam: Warm Assessment and Plan - Assessment and Plan (Free Text) Assessment: 46 year old male with PMHx CHF, DVT RLE on eliquis outpatient s/p IVC filter, HTN, diabetic nephropathy with nephrotic syndrome, COPD- currently hospitalized for worsening dyspnea, chest pain, NSTEMI NSTEMI cath canceled yesterday due to rising creatinine patient has baseline CKD. creatinine on admission 1.3, increased to 1.7, 2.0 yesterday creatinine today 1.7 IVF discontinued, patient currently receiving mucomyst in preparation for cardiac cath last Echo 10/18/16: trace-mild tricuspid regurg. normal bi-ventricular function. no pericardial effusion. LVEF within normal range. Echo 05/2016 comments on mild pulmonary HTN with pulmonary artery pressure 35- 45mmHg patient s/p cath with normal coronaries continue medical management, tylenol prn for cath site pain Plan as per Dr. Mayes <Hugo Mayes - Last Filed: 01/17/17 17:11> Objective - Vital Signs/Intake and Output Vital Signs (last 24 hours): Temp Pulse Resp BP Pulse Ox 98.5 F 89 20 120/71 94 L 01/17/17 07:00 01/17/17 07:40 01/17/17 07:00 01/17/17 10:12 01/17/17 07:00 Intake and Output: 01/17/17 01/17/17 06:59 18:59 Intake Total 560 Output Total 1675 Balance -1115 - Medications Medications: Current Medications Acetaminophen (Tylenol 325mg Tab) 650 mg PO Q6 PRN PRN Reason: Headache Last Admin: 01/17/17 10:25 Dose: 650 mg Acetylcysteine (Acetylcysteine 20%) 3 ml PO Q12 [facility] Stop: 01/18/17 22:01 Last Admin: 01/17/17 10:23 Dose: 3 ml Albuterol/Ipratropium (Duoneb 3 Mg/0.5 Mg (3 Ml) Ud) 3 ml INH RQ6 [facility] Last Admin: 01/17/17 13:04 Dose: Not Given Amlodipine Besylate (Norvasc) 5 mg PO DAILY [facility] Last Admin: 01/17/17 10:17 Dose: 5 mg Aspirin (Aspirin Chewable) 81 mg PO DAILY [facility] Last Admin: 01/17/17 10:12 Dose: 81 mg Furosemide (Lasix) 20 mg IVP Q12 [facility] Last Admin: 01/17/17 10:12 Dose: 20 mg Heparin Sodium (Porcine) (Heparin) 5,000 units SC Q8 [facility] Last Admin: 01/17/17 14:00 Dose: Not Given Azithromycin 500 mg/ Sodium (Chloride) 250 mls @ 250 mls/hr IVPB DAILY [facility] Last Admin: 01/17/17 11:00 Dose: 250 mls/hr Ceftriaxone Sodium 1 gm/ (Dextrose) 100 mls @ 100 mls/hr IVPB Q12H [facility] Last Admin: 01/17/17 10:00 Dose: 100 mls/hr Insulin Human Isoph/Insulin Regular (Novolin 70/30 (70/30 Units/Ml) 10 Ml) 12 units SC BIDAC [facility] Last Admin: 01/17/17 10:16 Dose: 12 units Insulin Human Regular (Novolin R) 0 unit SC ACHS [facility] PRN Reason: Protocol Last Admin: 01/17/17 11:30 Dose: Not Given Metoprolol Tartrate (Lopressor) 25 mg PO BID [facility] Last Admin: 01/17/17 11:30 Dose: Not Given Montelukast Sodium (Singulair) 10 mg PO HS [facility] Last Admin: 01/16/17 22:17 Dose: 10 mg Pantoprazole Sodium (Protonix Ec Tab) 40 mg PO DAILY [facility] Last Admin: 01/17/17 10:26 Dose: 40 mg Rosuvastatin Calcium (Crestor) 20 mg PO HS [facility] Last Admin: 01/16/17 22:15 Dose: 20 mg - Labs Labs: 01/17/17 08:00 01/17/17 08:00 PT 16.1 SECONDS (9.7-12.2) H 01/16/17 06:11 INR 1.4 01/16/17 06:11 APTT 106 SECONDS (21-34) H* D 01/15/17 12:09 Assessment and Plan - Assessment and Plan (Free Text) Assessment: Normal Coronaries and normal EF No further cardiac work up needed F/U PMD
[2017-01-17] MEDS ORDERED: Midazolam 2 MG/2 ML VIAL ONE (14:43)
[2017-01-17] MEDS ORDERED: Nitroglycerin 50mg in D5W 50 MG/250 ML BOTTLE IV ONE (14:50)
--- NOTE | 2017-01-17 20:35 | CP.PCM.PN ---
Subjective - Date & Time of Evaluation Date of Evaluation: 01/17/17 Time of Evaluation: 20:33 - Subjective Subjective: echo done and normal coronaries normal ef pt is doing well mild cough no fever and he has no sob but labs showing high WBC and bands will continue antibiotic repeat labs in am stool check Objective - Vital Signs/Intake and Output Vital Signs (last 24 hours): Temp Pulse Resp BP Pulse Ox 99.7 F H 88 20 132/79 92 L 01/17/17 18:00 01/17/17 19:48 01/17/17 18:00 01/17/17 18:46 01/17/17 18:00 - Medications Medications: Current Medications Acetaminophen (Tylenol 325mg Tab) 650 mg PO Q6 PRN PRN Reason: Headache Last Admin: 01/17/17 10:25 Dose: 650 mg Acetylcysteine (Acetylcysteine 20%) 3 ml PO Q12 [facility] Stop: 01/18/17 22:01 Last Admin: 01/17/17 10:23 Dose: 3 ml Albuterol/Ipratropium (Duoneb 3 Mg/0.5 Mg (3 Ml) Ud) 3 ml INH RQ6 [facility] Last Admin: 01/17/17 19:45 Dose: 3 ml Amlodipine Besylate (Norvasc) 5 mg PO DAILY [facility] Last Admin: 01/17/17 10:17 Dose: 5 mg Aspirin (Aspirin Chewable) 81 mg PO DAILY [facility] Last Admin: 01/17/17 10:12 Dose: 81 mg Furosemide (Lasix) 20 mg IVP Q12 [facility] Last Admin: 01/17/17 10:12 Dose: 20 mg Heparin Sodium (Porcine) (Heparin) 5,000 units SC Q8 [facility] Last Admin: 01/17/17 14:00 Dose: Not Given Azithromycin 500 mg/ Sodium (Chloride) 250 mls @ 250 mls/hr IVPB DAILY [facility] Last Admin: 01/17/17 11:00 Dose: 250 mls/hr Ceftriaxone Sodium 1 gm/ (Dextrose) 100 mls @ 100 mls/hr IVPB Q12H [facility] Last Admin: 01/17/17 10:00 Dose: 100 mls/hr Insulin Human Isoph/Insulin Regular (Novolin 70/30 (70/30 Units/Ml) 10 Ml) 12 units SC BIDAC [facility] Last Admin: 01/17/17 18:47 Dose: 12 units Insulin Human Regular (Novolin R) 0 unit SC ACHS [facility] PRN Reason: Protocol Last Admin: 01/17/17 18:47 Dose: 1 unit Metoprolol Tartrate (Lopressor) 25 mg PO BID [facility] Last Admin: 01/17/17 18:46 Dose: 25 mg Montelukast Sodium (Singulair) 10 mg PO HS [facility] Last Admin: 01/16/17 22:17 Dose: 10 mg Pantoprazole Sodium (Protonix Ec Tab) 40 mg PO DAILY [facility] Last Admin: 01/17/17 10:26 Dose: 40 mg Rosuvastatin Calcium (Crestor) 20 mg PO HS [facility] Last Admin: 01/16/17 22:15 Dose: 20 mg - Labs Labs: 01/17/17 08:00 01/17/17 08:00 PT 16.1 SECONDS (9.7-12.2) H 01/16/17 06:11 INR 1.4 01/16/17 06:11 APTT 106 SECONDS (21-34) H* D 01/15/17 12:09
[2017-01-18] MEDS: Albuterol-Ipratrop 3 mg / 0.5 (3 ml) UD INH SCH ×4 (01:55→19:43)
[2017-01-18 07:12] LABS: RBC URINE 13 /hpf (0-3); URINE BILIRUBIN NEGATIVE (NEGATIVE); URINE BLOOD 1+ (NEGATIVE); URINE COLOR Yellow (YELLOW); URINE GLUCOSE (UA) 2+ mg/dL (Normal); URINE HYALINE CAST >20 /lpf (0-2); URINE KETONE NEGATIVE (NEGATIVE); URINE LEUKOCYTE ESTERASE NEG Leu/uL (Negative); URINE PROTEIN 3+ mg/dL (NEGATIVE); URINE UROBILINOGEN NORMAL mg/dL (0.2-1.0); WBC URINE 2 /hpf (0-5)
[2017-01-18 07:49] LABS: BASO # 0.1 K/uL (0.0-0.2); BASO % 0.6 % (0.0-2.0); EOS # 0.7 K/uL (0.0-0.7); EOS % 4.8 % (0.0-4.0); HEMATOCRIT 42.2 % (35.0-51.0); LYMPH # 1.6 K/uL (1.0-4.3); LYMPH % 10.7 % (20.0-40.0); MEAN CELL VOLUME 82.2 fL (80.0-94.0); MEAN CORPUSCULAR HEMOGLOBIN 25.7 pg (27.0-31.0); MEAN CORPUSCULAR HGB CONC 31.3 g/dL (33.0-37.0); MEAN PLATELET VOLUME 10.7 fL (7.2-11.7); MONO # 1.8 K/uL (0.0-0.8); MONO % 12.3 % (0.0-10.0); NRBC % 0.3 % (0.0-2.0); RED CELL DISTRIBUTION WIDTH 19.2 % (11.5-14.5); WHITE BLOOD COUNT 14.8 K/uL (4.8-10.8)
[2017-01-18] MEDS: (Novolin R) Insulin Human Regular 100 units/ml vial SC SCH ×4 (08:18→21:39)
[2017-01-18] MEDS: (Novolin 70/30) NPH/Regular 70/30 Units/ml 10 ml vial SC SCH ×2 (08:18→18:14)
[2017-01-18 08:57] LABS: CHLORIDE 99 mmol/L (98-107); POTASSIUM 4.7 mmol/L (3.6-5.2); SODIUM 135 mmol/L (132-148)
[2017-01-18 08:59] LABS: BILIRUBIN,TOTAL 0.9 mg/dL (0.2-1.3); GFR AFRICAN-AMERICAN > 60
[2017-01-18 09:00] LABS: ALB/GLOB RATIO 1.1 (1.0-2.1); ALKALINE PHOSPHATASE 205 U/L (38-126); ALT/SGPT 35 U/L (21-72); AST/SGOT 24 U/L (17-59); BLOOD UREA NITROGEN 42 mg/dL (9-20); CALCIUM 8.7 mg/dl (8.6-10.4); CARBON DIOXIDE 27 mmol/L (22-30); GLUCOSE,RANDOM 170 mg/dL (75-110); TOTAL PROTEIN 6.7 g/dL (6.3-8.3)
[2017-01-18] MEDS: Azithromycin 500 MG in Sodium Chloride 0.9% 250 ML IVPB SCH (09:34)
[2017-01-18] MEDS: Pantoprazole 40 mg EC Tab PO SCH (09:34)
[2017-01-18] MEDS: Acetylcysteine 20% Inhal Soln (4ml) PO SCH ×2 (10:19→21:36)
--- NOTE | 2017-01-18 14:08 | CP.PCM.PN ---
Subjective - Date & Time of Evaluation Date of Evaluation: 01/18/17 Time of Evaluation: 14:06 - Subjective Subjective: s/p cardiac cath- normal coronaries creat decreased to 1.4- stable now still moderately dyspneic good UO- on IV lasix no other complaints Objective - Vital Signs/Intake and Output Vital Signs (last 24 hours): Temp Pulse Resp BP Pulse Ox 97.9 F 104 H 20 119/66 97 01/18/17 08:31 01/18/17 08:31 01/18/17 08:31 01/18/17 09:35 01/18/17 08:31 Intake and Output: 01/18/17 01/18/17 06:59 18:59 Intake Total 360 Output Total 275 400 Balance 85 -400 - Medications Medications: Current Medications Acetaminophen (Tylenol 325mg Tab) 650 mg PO Q6 PRN PRN Reason: Headache Last Admin: 01/17/17 10:25 Dose: 650 mg Acetylcysteine (Acetylcysteine 20%) 3 ml PO Q12 [facility] Stop: 01/18/17 22:01 Last Admin: 01/18/17 10:19 Dose: 3 ml Albuterol/Ipratropium (Duoneb 3 Mg/0.5 Mg (3 Ml) Ud) 3 ml INH RQ6 [facility] Last Admin: 01/18/17 13:59 Dose: 3 ml Amlodipine Besylate (Norvasc) 5 mg PO DAILY [facility] Last Admin: 01/18/17 09:34 Dose: 5 mg Aspirin (Aspirin Chewable) 81 mg PO DAILY [facility] Last Admin: 01/18/17 09:34 Dose: 81 mg Furosemide (Lasix) 20 mg IVP Q12 [facility] Last Admin: 01/18/17 09:35 Dose: 20 mg Heparin Sodium (Porcine) (Heparin) 5,000 units SC Q8 [facility] Last Admin: 01/18/17 13:29 Dose: 5,000 units Azithromycin 500 mg/ Sodium (Chloride) 250 mls @ 250 mls/hr IVPB DAILY [facility] Last Admin: 01/18/17 09:34 Dose: 250 mls/hr Ceftriaxone Sodium 1 gm/ (Dextrose) 100 mls @ 100 mls/hr IVPB Q12H [facility] Last Admin: 01/18/17 11:07 Dose: 100 mls/hr Insulin Human Isoph/Insulin Regular (Novolin 70/30 (70/30 Units/Ml) 10 Ml) 12 units SC BIDAC [facility] Last Admin: 01/18/17 08:18 Dose: 12 units Insulin Human Regular (Novolin R) 0 unit SC ACHS [facility] PRN Reason: Protocol Last Admin: 01/18/17 12:08 Dose: 3 unit Metoprolol Tartrate (Lopressor) 25 mg PO BID [facility] Last Admin: 01/18/17 09:35 Dose: 25 mg Montelukast Sodium (Singulair) 10 mg PO HS [facility] Last Admin: 01/17/17 21:37 Dose: 10 mg Pantoprazole Sodium (Protonix Ec Tab) 40 mg PO DAILY [facility] Last Admin: 01/18/17 09:34 Dose: 40 mg Rosuvastatin Calcium (Crestor) 20 mg PO HS [facility] Last Admin: 01/17/17 21:35 Dose: 20 mg - Labs Labs: 01/18/17 07:36 01/18/17 07:36 PT 16.1 SECONDS (9.7-12.2) H 01/16/17 06:11 INR 1.4 01/16/17 06:11 APTT 106 SECONDS (21-34) H* D 01/15/17 12:09 - Constitutional Appears: No Acute Distress, Chronically Ill - Head Exam Head Exam: ATRAUMATIC, NORMAL INSPECTION - Eye Exam Eye Exam: EOMI, Normal appearance - Neck Exam Neck Exam: Normal Inspection. absent: Tenderness - Respiratory Exam Respiratory Exam: Clear to Ausculation Bilateral, NORMAL BREATHING PATTERN - Cardiovascular Exam Cardiovascular Exam: REGULAR RHYTHM, +S1 - GI/Abdominal Exam GI & Abdominal Exam: Soft. absent: Tenderness - Extremities Exam Extremities Exam: Normal Inspection. absent: Tenderness - Neurological Exam Neurological Exam: Alert, CN II-XII Intact - Skin Skin Exam: Dry, Warm Assessment and Plan (1) CHF (congestive heart failure) Status: Acute (2) CKD stage 3 due to type 2 diabetes mellitus Status: Acute (3) Chronic kidney disease, stage 3 (moderate) Status: Acute (4) Coagulopathy Status: Acute (5) Diabetic nephropathy Status: Acute (6) Nephrotic syndrome Status: Acute (7) COPD (chronic obstructive pulmonary disease) Status: Chronic - Assessment and Plan (Free Text) Plan: Would continue IV lasix Serial chemistries
--- NOTE | 2017-01-18 23:16 | CP.PCM.PN ---
Subjective - Date & Time of Evaluation Date of Evaluation: 01/18/17 Time of Evaluation: 09:45 - Subjective Subjective: Patient seen and evaluated Feels better Objective - Vital Signs/Intake and Output Vital Signs (last 24 hours): Temp Pulse Resp BP Pulse Ox 98.6 F 105 H 20 123/76 94 L 01/18/17 15:33 01/18/17 17:30 01/18/17 15:33 01/18/17 21:38 01/18/17 15:33 Intake and Output: 01/18/17 01/19/17 18:59 06:59 Output Total 400 Balance -400 - Medications Medications: Current Medications Acetaminophen (Tylenol 325mg Tab) 650 mg PO Q6 PRN PRN Reason: Headache Last Admin: 01/18/17 22:27 Dose: 650 mg Albuterol/Ipratropium (Duoneb 3 Mg/0.5 Mg (3 Ml) Ud) 3 ml INH RQ6 [facility] Last Admin: 01/18/17 19:43 Dose: 3 ml Amlodipine Besylate (Norvasc) 5 mg PO DAILY [facility] Last Admin: 01/18/17 09:34 Dose: 5 mg Aspirin (Aspirin Chewable) 81 mg PO DAILY [facility] Last Admin: 01/18/17 09:34 Dose: 81 mg Furosemide (Lasix) 20 mg IVP Q12 [facility] Last Admin: 01/18/17 21:38 Dose: 20 mg Heparin Sodium (Porcine) (Heparin) 5,000 units SC Q8 [facility] Last Admin: 01/18/17 21:38 Dose: 5,000 units Azithromycin 500 mg/ Sodium (Chloride) 250 mls @ 250 mls/hr IVPB DAILY [facility] Last Admin: 01/18/17 09:34 Dose: 250 mls/hr Ceftriaxone Sodium 1 gm/ (Dextrose) 100 mls @ 100 mls/hr IVPB Q12H [facility] Last Admin: 01/18/17 22:21 Dose: 100 mls/hr Insulin Human Isoph/Insulin Regular (Novolin 70/30 (70/30 Units/Ml) 10 Ml) 12 units SC BIDAC [facility] Last Admin: 01/18/17 18:14 Dose: 12 units Insulin Human Regular (Novolin R) 0 unit SC ACHS [facility] PRN Reason: Protocol Last Admin: 01/18/17 21:39 Dose: Not Given Metoprolol Tartrate (Lopressor) 25 mg PO BID [facility] Last Admin: 01/18/17 18:13 Dose: 25 mg Montelukast Sodium (Singulair) 10 mg PO HS [facility] Last Admin: 01/18/17 21:37 Dose: 10 mg Pantoprazole Sodium (Protonix Ec Tab) 40 mg PO DAILY [facility] Last Admin: 01/18/17 09:34 Dose: 40 mg Rosuvastatin Calcium (Crestor) 20 mg PO HS [facility] Last Admin: 01/18/17 21:37 Dose: 20 mg - Labs Labs: 01/18/17 07:36 01/18/17 07:36 PT 16.1 SECONDS (9.7-12.2) H 01/16/17 06:11 INR 1.4 01/16/17 06:11 APTT 106 SECONDS (21-34) H* D 01/15/17 12:09
--- NOTE | 2017-01-19 01:13 | CP.PCM.PN ---
Subjective - Date & Time of Evaluation Date of Evaluation: 01/18/17 Time of Evaluation: 22:00 - Subjective Subjective: The patient has minimal cough, but are doing well. No chest pain. Cough minimally noted, denies any nausea vomiting. Shortness of breath on exertion noted Vital signs reviewed No neck vein distention noted Chest good air entry bilaterally, no wheezing or rales noted CVS regular heart sound, no murmur noted Abdomen soft, nontender. 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 Currently having chronic lung diseases, bronchial asthma. Patient is currently on no home oxygen, BiPAP. Continue the current treatment. Possible discharge plan tomorrow Objective - Vital Signs/Intake and Output Vital Signs (last 24 hours): Temp Pulse Resp BP Pulse Ox 98 F 96 H 20 126/76 90 L 01/18/17 23:50 01/18/17 23:50 01/18/17 23:50 01/18/17 23:50 01/18/17 23:50 Intake and Output: 01/18/17 01/19/17 18:59 06:59 Output Total 400 Balance -400 - Medications Medications: Current Medications Acetaminophen (Tylenol 325mg Tab) 650 mg PO Q6 PRN PRN Reason: Headache Last Admin: 01/18/17 22:27 Dose: 650 mg Albuterol/Ipratropium (Duoneb 3 Mg/0.5 Mg (3 Ml) Ud) 3 ml INH RQ6 [facility] Last Admin: 01/18/17 19:43 Dose: 3 ml Amlodipine Besylate (Norvasc) 5 mg PO DAILY [facility] Last Admin: 01/18/17 09:34 Dose: 5 mg Aspirin (Aspirin Chewable) 81 mg PO DAILY [facility] Last Admin: 01/18/17 09:34 Dose: 81 mg Furosemide (Lasix) 20 mg IVP Q12 [facility] Last Admin: 01/18/17 21:38 Dose: 20 mg Heparin Sodium (Porcine) (Heparin) 5,000 units SC Q8 [facility] Last Admin: 01/18/17 21:38 Dose: 5,000 units Azithromycin 500 mg/ Sodium (Chloride) 250 mls @ 250 mls/hr IVPB DAILY [facility] Last Admin: 01/18/17 09:34 Dose: 250 mls/hr Ceftriaxone Sodium 1 gm/ (Dextrose) 100 mls @ 100 mls/hr IVPB Q12H [facility] Last Admin: 01/18/17 22:21 Dose: 100 mls/hr Insulin Human Isoph/Insulin Regular (Novolin 70/30 (70/30 Units/Ml) 10 Ml) 12 units SC BIDAC [facility] Last Admin: 01/18/17 18:14 Dose: 12 units Insulin Human Regular (Novolin R) 0 unit SC ACHS [facility] PRN Reason: Protocol Last Admin: 01/18/17 21:39 Dose: Not Given Metoprolol Tartrate (Lopressor) 25 mg PO BID [facility] Last Admin: 01/18/17 18:13 Dose: 25 mg Montelukast Sodium (Singulair) 10 mg PO HS [facility] Last Admin: 01/18/17 21:37 Dose: 10 mg Pantoprazole Sodium (Protonix Ec Tab) 40 mg PO DAILY [facility] Last Admin: 01/18/17 09:34 Dose: 40 mg Rosuvastatin Calcium (Crestor) 20 mg PO HS [facility] Last Admin: 01/18/17 21:37 Dose: 20 mg - Labs Labs: 01/18/17 07:36 01/18/17 07:36 PT 16.1 SECONDS (9.7-12.2) H 01/16/17 06:11 INR 1.4 01/16/17 06:11 APTT 106 SECONDS (21-34) H* D 01/15/17 12:09
[2017-01-19] MEDS: Albuterol-Ipratrop 3 mg / 0.5 (3 ml) UD INH SCH ×3 (01:16→13:46)
[2017-01-19 07:01] LABS: HEMATOCRIT 43.9 % (35.0-51.0); MEAN CELL VOLUME 82.4 fL (80.0-94.0); MEAN CORPUSCULAR HEMOGLOBIN 26.4 pg (27.0-31.0); MEAN PLATELET VOLUME 10.9 fL (7.2-11.7); RED CELL DISTRIBUTION WIDTH 19.3 % (11.5-14.5); WHITE BLOOD COUNT 16.9 K/uL (4.8-10.8)
[2017-01-19 08:04] LABS: CHLORIDE 96 mmol/L (98-107); POTASSIUM 5.3 mmol/L (3.6-5.2); SODIUM 135 mmol/L (132-148)
[2017-01-19 08:06] LABS: AST/SGOT 27 U/L (17-59); BILIRUBIN,TOTAL 0.9 mg/dL (0.2-1.3); CARBON DIOXIDE 31 mmol/L (22-30); GFR AFRICAN-AMERICAN > 60
[2017-01-19 08:07] LABS: ALKALINE PHOSPHATASE 221 U/L (38-126); ALT/SGPT 22 U/L (21-72); BLOOD UREA NITROGEN 42 mg/dL (9-20); CALCIUM 8.9 mg/dl (8.6-10.4); GLUCOSE,RANDOM 176 mg/dL (75-110); PHOSPHOROUS 4.2 mg/dL (2.5-4.5); TOTAL PROTEIN 7.2 g/dL (6.3-8.3)
[2017-01-19] MEDS: (Novolin R) Insulin Human Regular 100 units/ml vial SC SCH ×2 (08:36→12:06)
[2017-01-19] MEDS: (Novolin 70/30) NPH/Regular 70/30 Units/ml 10 ml vial SC SCH (08:36)
[2017-01-19] MEDS: Pantoprazole 40 mg EC Tab PO SCH (09:28)
[2017-01-19] MEDS: Azithromycin 500 MG in Sodium Chloride 0.9% 250 ML IVPB SCH (10:00)
--- NOTE | 2017-01-19 10:39 | CP.PCM.PN ---
Subjective - Date & Time of Evaluation Date of Evaluation: 01/19/17 Time of Evaluation: 10:36 - Subjective Subjective: Less dyspneic Creat decreased to 1.2 Remains on IV lasix feeling better overall K sl increased to 5.3- advised pt on diet Objective - Vital Signs/Intake and Output Vital Signs (last 24 hours): Temp Pulse Resp BP Pulse Ox 98.2 F 97 H 18 128/76 97 01/19/17 07:55 01/19/17 07:55 01/19/17 07:55 01/19/17 09:29 01/19/17 07:55 Intake and Output: 01/19/17 01/19/17 06:59 18:59 Intake Total 340 Output Total 1000 Balance -660 - Medications Medications: Current Medications Acetaminophen (Tylenol 325mg Tab) 650 mg PO Q6 PRN PRN Reason: Headache Last Admin: 01/19/17 05:36 Dose: 650 mg Albuterol/Ipratropium (Duoneb 3 Mg/0.5 Mg (3 Ml) Ud) 3 ml INH RQ6 [facility] Last Admin: 01/19/17 07:28 Dose: 3 ml Amlodipine Besylate (Norvasc) 5 mg PO DAILY [facility] Last Admin: 01/19/17 09:28 Dose: 5 mg Aspirin (Aspirin Chewable) 81 mg PO DAILY [facility] Last Admin: 01/19/17 09:28 Dose: 81 mg Furosemide (Lasix) 20 mg IVP Q12 [facility] Last Admin: 01/19/17 09:29 Dose: 20 mg Heparin Sodium (Porcine) (Heparin) 5,000 units SC Q8 [facility] Last Admin: 01/19/17 05:37 Dose: 5,000 units Azithromycin 500 mg/ Sodium (Chloride) 250 mls @ 250 mls/hr IVPB DAILY [facility] Last Admin: 01/19/17 10:00 Dose: 250 mls/hr Ceftriaxone Sodium 1 gm/ (Dextrose) 100 mls @ 100 mls/hr IVPB Q12H [facility] Last Admin: 01/18/17 22:21 Dose: 100 mls/hr Insulin Human Isoph/Insulin Regular (Novolin 70/30 (70/30 Units/Ml) 10 Ml) 12 units SC BIDAC [facility] Last Admin: 01/19/17 08:36 Dose: 12 units Insulin Human Regular (Novolin R) 0 unit SC ACHS [facility] PRN Reason: Protocol Last Admin: 01/19/17 08:36 Dose: 1 unit Metoprolol Tartrate (Lopressor) 25 mg PO BID [facility] Last Admin: 01/19/17 09:28 Dose: 25 mg Montelukast Sodium (Singulair) 10 mg PO HS [facility] Last Admin: 01/18/17 21:37 Dose: 10 mg Pantoprazole Sodium (Protonix Ec Tab) 40 mg PO DAILY [facility] Last Admin: 01/19/17 09:28 Dose: 40 mg Rosuvastatin Calcium (Crestor) 20 mg PO HS [facility] Last Admin: 01/18/17 21:37 Dose: 20 mg - Labs Labs: 01/19/17 06:11 01/19/17 06:11 PT 16.1 SECONDS (9.7-12.2) H 01/16/17 06:11 INR 1.4 01/16/17 06:11 APTT 106 SECONDS (21-34) H* D 01/15/17 12:09 - Constitutional Appears: No Acute Distress, Chronically Ill - Head Exam Head Exam: ATRAUMATIC, NORMAL INSPECTION - Eye Exam Eye Exam: EOMI, Normal appearance - Neck Exam Neck Exam: Normal Inspection. absent: Tenderness - Respiratory Exam Respiratory Exam: Clear to Ausculation Bilateral, NORMAL BREATHING PATTERN - Cardiovascular Exam Cardiovascular Exam: REGULAR RHYTHM, +S1 - GI/Abdominal Exam GI & Abdominal Exam: Soft. absent: Tenderness - Extremities Exam Extremities Exam: Normal Inspection. absent: Tenderness - Neurological Exam Neurological Exam: Alert, CN II-XII Intact - Skin Skin Exam: Dry, Warm Assessment and Plan (1) CHF (congestive heart failure) Status: Acute (2) CKD stage 3 due to type 2 diabetes mellitus Status: Acute (3) Chronic kidney disease, stage 3 (moderate) Status: Acute (4) Coagulopathy Status: Acute (5) Diabetic nephropathy Status: Acute (6) Nephrotic syndrome Status: Acute (7) COPD (chronic obstructive pulmonary disease) Status: Chronic - Assessment and Plan (Free Text) Plan: lo K diet continue IV lasix- eventual switch to oral ose renal status stable
--- NOTE | 2017-01-19 10:53 | PCM.HF ---
Heart Failure Core Measure - Heart Failure Ejection Fraction: 40 % or Greater BREANA Inhibitor Prescribed: No Contraindication/Reason for not providing: RENAL DISEASE Beta-Edenilson Prescribed: None Contraindication/Reason for not providing: LOPRESSOR 25 MG PO BID Angiotensin II Receptor Edenilson Prescribed: No Contraindication/Reason for not providing: LOSARTAN D/C'D 2/2 RENAL DISEASE AnticoagulationTherapy for Atrial Fibrillation/Atrialflutter: No Contraindication/Reason for not providing: ON ELIQUIS FOR DVT Aldosterone Antagonist Prescribed: No Contraindication/Reason for not providing: RENAL DISEASE; EF NORMAL Hydralazine Nitrate Prescribed: No Contraindication/Reason for not providing: RENAL DISEASE; EF NORMAL Implantable Cardioverter Defibrillator Therapy: No Contraindication/Reason for not providing: EF NORMAL Cardiac Resynchronization Therapy Prescribed: No Contraindication/Reason for not providing: EF NORMAL - Follow up Will be discharged to: Home Follow Up Date (must be within 7 days from discharge): 01/26/17 Follow Up Time: 09:00
--- NOTE | 2017-01-19 10:58 | CP.PCM.PN ---
Subjective - Date & Time of Evaluation Date of Evaluation: 01/19/17 Time of Evaluation: 10:54 - Subjective Subjective: PT SEEN THIS MORNING BY DR. BALDERRAMA AND CLEARED FOR D/C HOME TODAY. PT OFFERS NO COMPLAINTS AND STATES HE IS FEELING BETTER. PT HAS HOME O2 AND TRILOGY MACHINE AT HOME ALREADY---ADMITS TO NONCOMPLIANCE WITH TRILOGY BECAUSE ELECTRIC BILL HAS BEEN "TOO EXPENSIVE" SO HE USES IT OCCASSIONALLY; USES O2 DAILY. WILL F/U WITH DR. ROBERTS IN THE OFFICE WITHIN [address] BIRCH AND PT TO F /U WITH DR. STEVENS (INSURANCE PURPOSES). RX FOR MEDROL AND ABX SENT TO PT'S PHARMACY. WILL CONTINUE METOPROLOL BEING GIVEN HERE AND D/C LOSARTAN. DR MAXWELL AWARE OF D/C AND PT TO F/U WITH HIM IN THE OFFICE. NO FURTHER ORDERS. Objective - Vital Signs/Intake and Output Vital Signs (last 24 hours): Temp Pulse Resp BP Pulse Ox 98.2 F 97 H 18 128/76 97 01/19/17 07:55 01/19/17 07:55 01/19/17 07:55 01/19/17 09:29 01/19/17 07:55 Intake and Output: 01/19/17 01/19/17 06:59 18:59 Intake Total 340 Output Total 1000 Balance -660 - Medications Medications: Current Medications Acetaminophen (Tylenol 325mg Tab) 650 mg PO Q6 PRN PRN Reason: Headache Last Admin: 01/19/17 05:36 Dose: 650 mg Albuterol/Ipratropium (Duoneb 3 Mg/0.5 Mg (3 Ml) Ud) 3 ml INH RQ6 [facility] Last Admin: 01/19/17 07:28 Dose: 3 ml Amlodipine Besylate (Norvasc) 5 mg PO DAILY [facility] Last Admin: 01/19/17 09:28 Dose: 5 mg Aspirin (Aspirin Chewable) 81 mg PO DAILY [facility] Last Admin: 01/19/17 09:28 Dose: 81 mg Furosemide (Lasix) 20 mg IVP Q12 [facility] Last Admin: 01/19/17 09:29 Dose: 20 mg Heparin Sodium (Porcine) (Heparin) 5,000 units SC Q8 [facility] Last Admin: 01/19/17 05:37 Dose: 5,000 units Azithromycin 500 mg/ Sodium (Chloride) 250 mls @ 250 mls/hr IVPB DAILY [facility] Last Admin: 01/19/17 10:00 Dose: 250 mls/hr Ceftriaxone Sodium 1 gm/ (Dextrose) 100 mls @ 100 mls/hr IVPB Q12H [facility] Last Admin: 01/18/17 22:21 Dose: 100 mls/hr Insulin Human Isoph/Insulin Regular (Novolin 70/30 (70/30 Units/Ml) 10 Ml) 12 units SC BIDAC [facility] Last Admin: 01/19/17 08:36 Dose: 12 units Insulin Human Regular (Novolin R) 0 unit SC ACHS [facility] PRN Reason: Protocol Last Admin: 01/19/17 08:36 Dose: 1 unit Metoprolol Tartrate (Lopressor) 25 mg PO BID [facility] Last Admin: 01/19/17 09:28 Dose: 25 mg Montelukast Sodium (Singulair) 10 mg PO HS [facility] Last Admin: 01/18/17 21:37 Dose: 10 mg Pantoprazole Sodium (Protonix Ec Tab) 40 mg PO DAILY [facility] Last Admin: 01/19/17 09:28 Dose: 40 mg Rosuvastatin Calcium (Crestor) 20 mg PO HS [facility] Last Admin: 01/18/17 21:37 Dose: 20 mg - Labs Labs: 01/19/17 06:11 01/19/17 06:11 PT 16.1 SECONDS (9.7-12.2) H 01/16/17 06:11 INR 1.4 01/16/17 06:11 APTT 106 SECONDS (21-34) H* D 01/15/17 12:09
[2017-01-19 16:14] VITALS: BP 145/79; PULSE 95; RESP 22; TEMP 98; O2SAT 94
--- NOTE | 2017-01-28 19:11 | CARDCATH ---
PROCEDURE DATE: 01/17/2017 PROCEDURES: 1. Left heart catheterization and coronary angiogram. 2. Radiological supervision and radiological interpretation of the coronary angiogram and LV angiogram. REFERRING PHYSICIAN: Dae Long MD PERFORMING PHYSICIAN: Hugo Mayes MD CLINICAL INDICATIONS: 1. Chest pain. 2. Elevated troponin. 3. Chronic kidney disease, stage III. 4. Hyperlipidemia. 5. Obesity. PROCEDURE: After informed consent, the patient was prepped and draped in the usual sterile fashion. A 2% lidocaine was given in the right wrist per local anesthesia. Using micropuncture technique, [place] Terumo radial sheath introduced into right radial artery. A [place] JR4 diagnostic catheter was engaged into right coronary artery. Contrast injected and right coronary angiogram was performed. Then, the catheter was pulled back and inserted into left ventricle across the aortic valve using the J-wire support. J-wire was removed. LV end-diastolic pressure was performed. LV angiogram was performed using hand injection. While pulling back the catheter across the aortic valve, gradient was measured. JR4 catheter was exchanged to [place] catheter. [place] catheter engaged into a left main coronary artery. Contrast injected and left coronary angiogram was performed. The patient tolerated the procedure well. Postprocedure Terumo radial band applied to right wrist with excellent hemostasis. FINDINGS: 1. Left main coronary artery is patent. 2. LAD and diagonal branches are patent. 3. Left circumflex in the obtuse marginal branches are patent. 4. Right coronary artery is dominant and patent. 5. LV ejection fraction approximately 70%. No wall motion abnormalities are noted. EDP is 18. No gradient across the aortic valve. IMPRESSION: 1. Normal coronaries. 2. Normal left ventricular systolic function. Recommend medical management. Hugo Mayes MD
--- NOTE | 2017-02-12 16:54 | CP.PCM.DIS ---
Provider - Provider Date of Admission: 01/14/17 17:32 Attending physician: Dae Roberts MD Time Spent in preparation of Discharge (in minutes): 45 Hospital Course - Lab Results Lab Results: Micro Results 01/14/17 20:30 Blood Blood Culture - Final NO GROWTH AFTER 5 DAYS 01/14/17 20:30 Blood Gram Stain - Final TEST NOT PERFORMED 01/14/17 20:30 Blood Blood Culture - Final NO GROWTH AFTER 5 DAYS 01/14/17 20:30 Blood Gram Stain - Final TEST NOT PERFORMED 01/16/17 Unknown Nose MRSA Culture - Final MRSA NOT DETECTED 01/14/17 Unknown Nose MRSA Culture (Admit) - Final MRSA NOT DETECTED Most Recent Lab Values WBC 16.9 K/uL (4.8-10.8) H 01/19/17 06:11 RBC 5.33 Mil/uL (4.40-5.90) 01/19/17 06:11 Hgb 14.0 g/dL (12.0-18.0) 01/19/17 06:11 Hct 43.9 % (35.0-51.0) 01/19/17 06:11 MCV 82.4 fL (80.0-94.0) 01/19/17 06:11 MCH 26.4 pg (27.0-31.0) L 01/19/17 06:11 MCHC 32.0 g/dL (33.0-37.0) L 01/19/17 06:11 RDW 19.3 % (11.5-14.5) H 01/19/17 06:11 Plt Count 162 K/uL (130-400) 01/19/17 06:11 MPV 10.9 fL (7.2-11.7) 01/19/17 06:11 Neut % (Auto) 71.6 % (50.0-75.0) 01/18/17 07:36 Lymph % (Auto) 10.7 % (20.0-40.0) L 01/18/17 07:36 [place] % (Auto) 12.3 % (0.0-10.0) H 01/18/17 07:36 Eos % (Auto) 4.8 % (0.0-4.0) H 01/18/17 07:36 Baso % (Auto) 0.6 % (0.0-2.0) 01/18/17 07:36 Neut # 10.6 K/uL (1.8-7.0) H 01/18/17 07:36 Lymph # 1.6 K/uL (1.0-4.3) 01/18/17 07:36 [place] # 1.8 K/uL (0.0-0.8) H 01/18/17 07:36 Eos # 0.7 K/uL (0.0-0.7) 01/18/17 07:36 Baso # 0.1 K/uL (0.0-0.2) 01/18/17 07:36 Neutrophils % (Manual) 38 % (50-75) L 01/17/17 08:00 Band Neutrophils % 40 % (0-2) H* 01/17/17 08:00 Lymphocytes % (Manual) 12 % (20-40) L 01/17/17 08:00 Reactive Lymphs % 1 % (0-0) H 01/17/17 08:00 Monocytes % (Manual) 6 % (0-10) 01/17/17 08:00 Eosinophils % (Manual) 1 % (0-4) 01/17/17 08:00 Myelocytes % 2 % (0-0) H 01/17/17 08:00 Toxic Granulation Present 01/17/17 08:00 Dohle Bodies Present 01/17/17 08:00 Platelet Estimate Normal (NORMAL) 01/17/17 08:00 Anisocytosis (manual) Moderate 01/17/17 08:00 PT 16.1 SECONDS (9.7-12.2) H 01/16/17 06:11 INR 1.4 01/16/17 06:11 APTT 106 SECONDS (21-34) H* D 01/15/17 12:09 Sodium 135 mmol/L (132-148) 01/19/17 06:11 Potassium 5.3 mmol/L (3.6-5.2) H 01/19/17 06:11 Chloride 96 mmol/L (98-107) L 01/19/17 06:11 Carbon Dioxide 31 mmol/L (22-30) H 01/19/17 06:11 Anion Gap 13 (10-20) 01/19/17 06:11 BUN 42 mg/dL (9-20) H 01/19/17 06:11 Creatinine 1.2 mg/dL (0.8-1.5) 01/19/17 06:11 Est GFR ( Amer) > 60 01/19/17 06:11 Est GFR (Non-Af Amer) > 60 01/19/17 06:11 POC Glucose (mg/dL) 311 mg/dL (65-110) H 01/19/17 11:39 Random Glucose 176 mg/dL (75-110) H 01/19/17 06:11 Calcium 8.9 mg/dl (8.6-10.4) 01/19/17 06:11 Phosphorus 4.2 mg/dL (2.5-4.5) 01/19/17 06:11 Magnesium 2.0 mg/dL (1.6-2.3) 01/19/17 06:11 Total Bilirubin 0.9 mg/dL (0.2-1.3) 01/19/17 06:11 AST 27 U/L (17-59) 01/19/17 06:11 ALT 22 U/L (21-72) 01/19/17 06:11 Alkaline Phosphatase 221 U/L (38-126) H 01/19/17 06:11 Lactate Dehydrogenase 776 U/L (313-618) H 01/18/17 07:36 Total Creatine Kinase 108 U/L (55-170) 01/15/17 04:53 CK-MB (Mass) 9.55 ng/mL (0.0-3.38) H 01/15/17 04:53 Troponin I 4.2100 ng/mL (0.00-0.120) H* 01/15/17 04:53 Troponin I, Quant 4.1000 ng/mL (0.00-0.120) H* 01/15/17 04:53 NT-Pro-B Natriuret Pep 7100 pg/mL (0-450) H 01/14/17 16:26 Total Protein 7.2 g/dL (6.3-8.3) 01/19/17 06:11 Albumin 3.7 g/dL (3.5-5.0) 01/19/17 06:11 Globulin 3.5 gm/dL (2.2-3.9) 01/19/17 06:11 Albumin/Globulin Ratio 1.0 (1.0-2.1) 01/19/17 06:11 Procalcitonin 22.11 NG/ML (0.19-0.49) H 01/15/17 11:04 Urine Color Yellow (YELLOW) 01/18/17 07:01 Urine Clarity Clear (Clear) 01/18/17 07:01 Urine pH 6.0 (5.0-8.0) 01/18/17 07:01 Ur Specific [place] 1.015 (1.003-1.030) 01/18/17 07:01 Urine Protein 3+ mg/dL (NEGATIVE) H 01/18/17 07:01 Urine Glucose (UA) 2+ mg/dL (Normal) H 01/18/17 07:01 Urine Ketones Negative mg/dL (NEGATIVE) 01/18/17 07:01 Urine Blood 1+ (NEGATIVE) H 01/18/17 07:01 Urine Nitrate Negative (NEGATIVE) 01/18/17 07:01 Urine Bilirubin Negative (NEGATIVE) 01/18/17 07:01 Urine Urobilinogen Normal mg/dL (0.2-1.0) 01/18/17 07:01 Ur Leukocyte Esterase Neg Mert/uL (Negative) 01/18/17 07:01 Urine WBC (Auto) 2 /hpf (0-5) 01/18/17 07:01 Urine RBC (Auto) 13 /hpf (0-3) H 01/18/17 07:01 Hyaline Casts >20 /lpf (0-2) H 01/18/17 07:01 Broad Casts 3 /lpf (0-1) 01/18/17 07:01 - Hospital Course Hospital Course: Chief complaint: Congested lungs, shortness of breath. History present illness: 46-year-old male with history of COPD bronchial asthma diabetes hypertension DVT on anticoagulation History of liver cirrhosis, renal insufficiency. Patient was doing well until 2 days ago, he started noticing some increasing shortness of breath. Cough is noted. He is having no chest pain. He is using the oxygen and BiPAP are to home He denies headache fever. He is feeling comfortable otherwise. No nausea vomiting. His blood sugar is slightly on the high side otherwise Past medical history as noted above. Surgical history splenectomy Family history diabetes. Social history: years ago used to be a smoker heavy. No known drug allergy Review of system: Currently having no headache, Having increasing shortness of breath noted. Cough occasionally noted. Wheezing present occasionally. Patient is in a brace at home, oxygen at,, BiPAP Currently having no chest pain. Minimal discomfort in the right upper shoulder region noted Exertional dyspnea noted. Leg swelling present Vital signs reviewed No neck vein distention noted Chest good air entry bilaterally, no wheezing or rales noted CVS regular heart sound, no murmur noted Abdomen soft, nontender. 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 Mild elevation of the troponin noted, renal functions are stable. 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 Assessment and recommendation: 45-year-old male with multiple medical history including COPD asthma diabetes hypertension DVT history of TN in the past and liver cirrhosis and. Patient possibly has obstructive sleep apnea renal insufficiency, the patient is currently having non-ST elevation TN. Acute pulmonary edema likely. Lasix. Heparin drip. Cardiology evaluation. ICU monitoring. Antibiotic. Course in the hospital: Patient initially hospitalized to the intensive care unit. Initial acute pulmonary edema was treated with IV Lasix and cardiology follow- up. He was closely monitored. He was also having evidence of bronchitis, and pneumonia, started on IV antibiotic. Patient clinically improved markedly. Patient has a home oxygen, BiPAP at home. He will be discharged home, he will continue the by mouth antibiotic. Oxygen and BiPAP should be continued. Other medications reviewed and information was given to the patient. We'll follow the patient Final diagnosis, acute exacerbation of COPD. Decompensated diastolic heart failure. Hypertensive heart disease, renal insufficiency with a proteinuria. Diabetes and complication. Obesity, obstructive sleep apnea. Discharge Exam - Head Exam Head Exam: ATRAUMATIC, NORMAL INSPECTION Discharge Plan - Discharge Medications Prescriptions: Furosemide [Lasix] 40 mg PO BID #60 tab Metoprolol Tartrate [Lopressor] 25 mg PO BID #60 tab Methylprednisolone [Medrol Dose Pack (21 tabs)] 4 mg PO DAILY #21 mg - Follow Up Plan Condition: GUARDED Disposition: HOME/ ROUTINE Instructions: Metoprolol (By mouth), Furosemide (By mouth), Azithromycin (By mouth), Methylprednisolone (By mouth), Myocardial Infarction (DC), Heart Failure (DC), Chest Pain (DC), Heart Healthy Diet (DC), Heart Catheterization ( DC) Additional Instructions: FOLLOW UP WITH DR. ROBERTS IN THE OFFICE WITHIN 1 WEEK---CALL FOR APPT TIME. PER DR. MAYES, FOLLOW UP WITH DR. LEE (REMOTELY OPERATED VEHICLE) IN THE OFFICE WITHIN 1-2 WEEKS---CALL FOR APPT TIME. FOLLOW UP WITH DR. MAXWELL IN THE OFFICE USUAL---CALL FOR APPT TIME. CONTINUE YOUR HOME MEDICATIONS USUAL. DO NOT TAKE [place] (BLOOD PRESSURE MEDICINE). TAKE METOPROLOL TWICE A DAY FOR YOUR BLOOD PRESSURE. CONTINUE ANTIBIOTIC AND STEROIDS UNTIL COMPLETED. TAKE EXACTLY PRESCRIBED. YOUR PRESCRIPTIONS HAVE BEEN SENT TO YOUR PHARMACY. FOR FURTHER QUESTIONS, CONTACT DR. ROBERTS'S OFFICE. Referrals: Jaja Lee MD [Staff Provider] - Hugo Mayes MD [Staff Provider] - Campos Maxwell MD [Staff Provider] - Dae Roberts MD [Staff Provider] -
== END 2017-01-19 16:44 | disposition home or self-care (01) | DRG 121 ==
LOC: C.ER 15:06 → C.9E 17:32 → C.9I 19:20 → C.6T 01-16 15:15
PROVIDERS: ADMIT Internal Medicine; ATTEND Internal Medicine
PROC: 4A023N7 Measurement of Cardiac Sampling and Pressure, Left Heart, Percutaneous Approach (ICD-10-PCS; principal; 2017-01-17)
PROC: B2151ZZ Fluoroscopy of Left Heart using Low Osmolar Contrast (ICD-10-PCS; 2017-01-17)
PROC: B2111ZZ Fluoroscopy of Multiple Coronary Arteries using Low Osmolar Contrast (ICD-10-PCS; 2017-01-17)
DX: I21.4 Non-ST elevation (NSTEMI) myocardial infarction (principal); I50.33 Acute on chronic diastolic (congestive) heart failure; J44.1 Chronic obstructive pulmonary disease with (acute) exacerbation; J84.9 Interstitial pulmonary disease, unspecified; E11.21 Type 2 diabetes mellitus with diabetic nephropathy; D68.9 Coagulation defect, unspecified; E11.22 Type 2 diabetes mellitus with diabetic chronic kidney disease; N18.3 Chronic kidney disease, stage 3 (moderate); E11.65 Type 2 diabetes mellitus with hyperglycemia; I13.0 Hypertensive heart and chronic kidney disease with heart failure and stage 1 through stage 4 chronic kidney disease, or unspecified chronic kidney disease; K74.60 Unspecified cirrhosis of liver; N04.9 Nephrotic syndrome with unspecified morphologic changes; I27.20 Pulmonary hypertension, unspecified; E78.5 Hyperlipidemia, unspecified; E78.00 Pure hypercholesterolemia, unspecified; E66.9 Obesity, unspecified; Z79.899 Other long term (current) drug therapy; Z86.711 Personal history of pulmonary embolism; Z87.01 Personal history of pneumonia (recurrent); Z87.891 Personal history of nicotine dependence; Z91.19 Patient's noncompliance with other medical treatment and regimen; Z99.81 Dependence on supplemental oxygen; I25.2 Old myocardial infarction; Z86.718 Personal history of other venous thrombosis and embolism; Z90.81 Acquired absence of spleen

== ENCOUNTER 2017-05-05 14:03 | Inpatient (IN) | payer MEDICAID ==
[2017-05-05 14:28] VITALS: BMI 47.0
--- NOTE | 2017-05-05 15:27 | C.PDOC ---
History Of Present Illness 46 year old male, with PMHx of COPD on home oxygen, presents to ED for evaluation of shortness of breath on exertion for the past week. Pt also reports cough, chest tightness, and leg swelling for the last 3 days. Notes taking Lasix without improvement. Otherwise, denies abdominal pain, n/v/d, or fever. Time Seen by Provider: 05/05/17 15:12 Chief Complaint (Nursing): Shortness Of Breath History Per: Patient History/Exam Limitations: no limitations Onset/Duration Of Symptoms: Days Current Symptoms Are (Timing): Still Present Exacerbating Factor(s): Exertion Current Respiratory Medications: See Home Med List Associated Symptoms: Ankle/Leg Swelling. denies: Fever, Chills, Sweating, Bloody Cough, Heart Racing, Dizziness, Light-headedness Additional History Per: Patient Past Medical History Reviewed: Historical Data, Nursing Documentation, Vital Signs Vital Signs: Last Vital Signs Temp 98.6 F 05/05/17 14:28 Pulse 98 H 05/05/17 14:28 Resp 22 05/05/17 14:28 BP 132/83 05/05/17 14:28 Pulse Ox 94 L 05/05/17 15:33 - Medical History PMH: Arthritis, Asthma, CHF, COPD, Diabetes, Deep Vein Thrombosis (Right leg. IVC Filter inserted.), HTN, Hyperlipidemia, Pneumonia, Chronic Kidney Disease Denies: Anxiety - [facility] ASSISTANCE WITH RESPIRATORY VENTILATION, 24-96 HRS, CPAP (10/14/16) ASSISTANCE WITH RESPIRATORY VENTILATION, <24 HRS, CPAP (11/09/16) DRAINAGE OF SPINAL CANAL, PERCUTANEOUS APPROACH, DIAGNOSTIC (05/03/15) EXTIRPATION OF MATTER FROM R COM ILIAC VEIN, PERC APPROACH (05/25/16) FLUOROSCOPY OF LEFT HEART USING LOW OSMOLAR CONTRAST (01/14/17) FLUOROSCOPY OF MULT COR ART USING L OSM CONTRAST (01/14/17) INSERT INFUSION DEV IN R INT JUGULAR VEIN, PERC (05/25/16) INSERTION OF ENDOTRACHEAL AIRWAY INTO TRACHEA, VIA OPENING (05/25/16) INSERTION OF INFUSION DEV INTO R FEMOR VEIN, PERC APPROACH (01/25/16) INSERTION OF INFUSION DEV INTO SUP VENA CAVA, PERC APPROACH (05/25/16) INSERTION OF INTRALUM DEV INTO INF VENA CAVA, PERC APPROACH (05/25/16) MEASURE OF CARDIAC SAMPL & PRESSURE, L HEART, PERC APPROACH (01/14/17) PERFORMANCE OF URINARY FILTRATION, MULTIPLE (05/25/16) RESPIRATORY VENTILATION, GREATER THAN 96 CONSECUTIVE HOURS (05/25/16) 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 Constitutional: Negative for: Fever, Chills Cardiovascular: Positive for: Chest Pain (tightness), Edema (leg swelling). Negative for: Palpitations, Light Headedness Respiratory: Positive for: Cough, Shortness of Breath, SOB with Excertion. Negative for: Hemoptysis Gastrointestinal: Negative for: Nausea, Vomiting, Abdominal Pain, Diarrhea Physical Exam - Physical Exam Appears: Non-toxic, No Acute Distress Skin: Normal Color, Warm, Dry Head: Normacephalic Eye(s): bilateral: Normal Inspection Oral Mucosa: Moist Cardiovascular: Rhythm Regular Respiratory: No Accessory Muscle Use, Rales (at bases), No Rhonchi, No Wheezing Gastrointestinal/Abdominal: Soft, No Tenderness Extremity: Normal ROM, Pedal Edema (+2 pitting edema) Neurological/Psych: Oriented x3, Normal Speech ED Course And Treatment O2 Sat by Pulse Oximetry: 94 Progress Note: Blood work, EKG, CXR ordered and reviewed. Pt was given Lasix. Disposition - Disposition Forms: [facility] (Amharic) - Scribe Statement The provider has reviewed the documentation as recorded by the Scriberic Jalloh All medical record entries made by the Renaeiberic were at my direction and personally dictated by me. I have reviewed the chart and agree that the record accurately reflects my personal performance of the history, physical exam, medical decision making, and the department course for this patient. I have also personally directed, reviewed, and agree with the discharge instructions and disposition.
[2017-05-05 16:38] LABS: BASO # 0.2 K/uL (0.0-0.2); BASO % 1.6 % (0.0-2.0); EOS # 0.7 K/uL (0.0-0.7); EOS % 5.9 % (0.0-4.0); HEMOGLOBIN 12.6 g/dL (12.0-18.0); LYMPH # 2.5 K/uL (1.0-4.3); MEAN CELL VOLUME 80.1 fL (80.0-94.0); MEAN CORPUSCULAR HEMOGLOBIN 25.1 pg (27.0-31.0); MEAN CORPUSCULAR HGB CONC 31.3 g/dL (33.0-37.0); MEAN PLATELET VOLUME 10.9 fL (7.2-11.7); MONO # 1.3 K/uL (0.0-0.8); MONO % 10.5 % (0.0-10.0); NEUT # 7.9 K/uL (1.8-7.0); NRBC % 0.3 % (0.0-2.0); RBC 5.02 Mil/uL (4.40-5.90); RED CELL DISTRIBUTION WIDTH 20.9 % (11.5-14.5); WHITE BLOOD COUNT 12.7 K/uL (4.8-10.8)
[2017-05-05 16:50] LABS: ALB/GLOB RATIO 0.9 (1.0-2.1); ALBUMIN 3.1 g/dL (3.5-5.0); CALCIUM 8.2 mg/dl (8.6-10.4)
--- NOTE | 2017-05-05 16:52 | RAD ---
PROCEDURE: CHEST RADIOGRAPH, 1 VIEW HISTORY: SOB COMPARISON: 01/23/2017 FINDINGS: LUNGS: Clear. PLEURA: No pneumothorax or pleural fluid seen. CARDIOVASCULAR: Normal. OSSEOUS STRUCTURES: No significant abnormalities. VISUALIZED UPPER ABDOMEN: Normal. OTHER FINDINGS: None. IMPRESSION: No active disease.
[2017-05-05 17:02] LABS: CK-MB 5.86 ng/mL (0.0-3.38); TROPONIN I 0.026 ng/mL (0.00-0.120)
[2017-05-05 17:24] LABS: INR 1.3; PROTHROMBIN TIME 15.1 SECONDS (9.7-12.2)
[2017-05-05] MEDS ORDERED: Albuterol 0.083% Inhal Sol (2.5 mg/3 mL) UD IH PRN (17:51)
[2017-05-05] MEDS ORDERED: Albuterol-Ipratrop 3 mg / 0.5 (3 ml) UD INH STA (17:55)
[2017-05-05] MEDS ORDERED: Albuterol-Ipratrop 3 mg / 0.5 (3 ml) UD ONE (18:07)
[2017-05-05] MEDS: Albuterol-Ipratrop 3 mg / 0.5 (3 ml) UD INH SCH (20:26)
[2017-05-05] MEDS: (Novolin R) Insulin Human Regular 100 units/ml vial SC SCH (21:13)
[2017-05-05] MEDS ORDERED: Fluticasone-Salmeterol 250-50mcg Diskus IH SCH (22:00)
--- NOTE | 2017-05-05 22:07 | CP.PCM.HP ---
History of Present Illness - History of Present Illness History of Present Illness: CC: Leg swelling, abdominal swelling History of present illness: 46-year-old male with a history of COPD, bronchial asthma, diabetes, hypertension, DVT on anticoagulation, history of chronic liver disease, renal insufficiency, nephrotic syndrome, severe hypoxia, interstitial lung changes and disease, on oxygen and BiPAP. Patient was compensating so far, recently he started gaining weight, associated increasing leg swelling and abdominal swelling. There is also having some shortness of breath associated with cough. He did not have any fever. Denies any chest pain. Patient is currently taking his medication, but in spite of that he started having increasing leg swelling. He does not have any problem in making urine, but some reduction of the urine output recently noted. blood sugar uncontrolled Past medical history: COPD, bronchial asthma, interstitial lung disease. Hypertension, DVT. Currently on anti-coagulation. Renal insufficiency, secondary to nephrotic syndrome. Hypoxia, interstitial lung disease, obstructive sleep apnea on BiPAP. Surgical history: Splenectomy. Family history diabetes noted. Social history: Ex-smoker, no drug abuse Review of systems: Denies any headache. Complaining of minimal cough. Shortness of breath noted. Increasing abdominal swelling noted. Leg edema present. Vital signs reviewed No neck vein distention noted Patient has a bilateral wheezing in the lower lung capps. CVS regular heart sound, no murmur noted Abdomen soft, nontender. 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 Elevated blood bleed noted. Elevated creatinine level noted. Chest x-ray showing bilateral diffuse infiltrative changes, CHF pattern noted. Assessment and recommendation: 46-year-old male with a history of COPD, bronchial asthma, interstitial lung disease, hypertension, DVT, on anticoagulation. The renal insufficiency, nephrotic syndrome. Status post splenectomy. Objective sleep apnea. Patient admitted now with the possibility of fluid overload, and CHF exacerbation. Renal insufficiency stable. We'll start the patient on intravenous Lasix. BiPAP. Oxygen supplementation. Bronchodilators. We'll follow the patient nephro consult Present on Admission - Present on Admission Any Indicators Present on Admission: No History of DVT/PE: No History of Uncontrolled Diabetes: No Urinary Catheter: No Decubitus Ulcer Present: No Past Patient History - Infectious Disease Hx of Infectious Diseases: None - Past Medical History & Family History Past Medical History?: Yes - Past Social History Smoking Status: Former Smoker - CARDIAC Hx Cardiac Disorders: Yes Hx Congestive Heart Failure: Yes Hx Hypertension: Yes - PULMONARY Hx Respiratory Disorders: Yes Hx Asthma: Yes Hx Chronic Obstructive Pulmonary Disease (COPD): Yes Hx Pneumonia: Yes - NEUROLOGICAL Hx Neurological Disorder: Yes - HEENT Hx HEENT Problems: No - RENAL Hx Chronic Kidney Disease: No - ENDOCRINE/METABOLIC Hx Endocrine Disorders: Yes Hx Diabetes Mellitus Type 2: Yes - HEMATOLOGICAL/ONCOLOGICAL Hx Blood Disorders: Yes Other/Comment: Right LE DVT - INTEGUMENTARY Hx Dermatological Problems: Yes Hx Cellulitis: Yes - MUSCULOSKELETAL/RHEUMATOLOGICAL Hx Musculoskeletal Disorders: Yes Hx Arthritis: Yes Hx Falls: No - GASTROINTESTINAL Hx Gastrointestinal Disorders: No - GENITOURINARY/GYNECOLOGICAL Hx Genitourinary Disorders: No - PSYCHIATRIC Hx Anxiety: No Hx Substance Use: No - SURGICAL HISTORY Hx Surgeries: Yes Hx Splenectomy: Yes Other/Comment: IVC Filter placement - ANESTHESIA Hx Anesthesia: Yes Hx Anesthesia Reactions: No Hx Malignant Hyperthermia: No Meds Allergies/Adverse Reactions: Allergies Allergy/AdvReac Type Severity Reaction Status Date / Time EGG Allergy Intermediate RASH Verified 05/05/17 14:28 Results - Vital Signs Recent Vital Signs: Last Vital Signs Temp 97.8 F 05/05/17 19:52 Pulse 81 05/05/17 19:52 Resp 18 05/05/17 19:52 BP 125/81 05/05/17 19:52 Pulse Ox 96 05/05/17 19:52 - Labs Result Diagrams: 05/05/17 16:35 05/05/17 16:35 Labs: Laboratory Results - last 24 hr 05/05/17 05/05/17 05/05/17 16:35 16:35 17:08 WBC 12.7 H RBC 5.02 Hgb 12.6 D Hct 40.2 MCV 80.1 MCH 25.1 L MCHC 31.3 L RDW 20.9 H Plt Count 170 MPV 10.9 Neut % (Auto) 62.0 Lymph % (Auto) 20.0 Snyder % (Auto) 10.5 H Eos % (Auto) 5.9 H Baso % (Auto) 1.6 Neut # (Auto) 7.9 H Lymph # (Auto) 2.5 Snyder # (Auto) 1.3 H Eos # (Auto) 0.7 Baso # (Auto) 0.2 PT 15.1 H INR 1.3 APTT 80 H Sodium 136 Potassium 4.7 Chloride 99 Carbon Dioxide 31 H Anion Gap 11 BUN 58 H Creatinine 2.0 H Est GFR ( Amer) 44 Est GFR (Non-Af Amer) 36 POC Glucose (mg/dL) Random Glucose 94 Calcium 8.2 L Total Bilirubin 0.9 AST 30 ALT 22 Alkaline Phosphatase 147 H Total Creatine Kinase 239 H CK-MB (Mass) 5.86 H Troponin I 0.0260 NT-Pro-B Natriuret Pep 1880 H Total Protein 6.5 Albumin 3.1 L Globulin 3.4 Albumin/Globulin Ratio 0.9 L 05/05/17 20:41 WBC RBC Hgb Hct MCV MCH MCHC RDW Plt Count MPV Neut % (Auto) Lymph % (Auto) Snyder % (Auto) Eos % (Auto) Baso % (Auto) Neut # (Auto) Lymph # (Auto) Snyder # (Auto) Eos # (Auto) Baso # (Auto) PT INR APTT Sodium Potassium Chloride Carbon Dioxide Anion Gap BUN Creatinine Est GFR ( Amer) Est GFR (Non-Af Amer) POC Glucose (mg/dL) 68 Random Glucose Calcium Total Bilirubin AST ALT Alkaline Phosphatase Total Creatine Kinase CK-MB (Mass) Troponin I NT-Pro-B Natriuret Pep Total Protein Albumin Globulin Albumin/Globulin Ratio
[2017-05-06] MEDS: Albuterol-Ipratrop 3 mg / 0.5 (3 ml) UD INH SCH ×4 (01:08→20:28)
[2017-05-06 07:19] LABS: BASO # 0.1 K/uL (0.0-0.2); BASO % 0.6 % (0.0-2.0); EOS # 0.8 K/uL (0.0-0.7); EOS % 6.2 % (0.0-4.0); HEMOGLOBIN 12.8 g/dL (12.0-18.0); LYMPH # 2.6 K/uL (1.0-4.3); LYMPH % 20.1 % (20.0-40.0); MEAN CELL VOLUME 81.5 fL (80.0-94.0); MEAN CORPUSCULAR HEMOGLOBIN 25.8 pg (27.0-31.0); MEAN CORPUSCULAR HGB CONC 31.6 g/dL (33.0-37.0); MEAN PLATELET VOLUME 10.4 fL (7.2-11.7); MONO # 1.5 K/uL (0.0-0.8); MONO % 11.5 % (0.0-10.0); NEUT % 61.6 % (50.0-75.0); NRBC % 0.2 % (0.0-2.0); RBC 4.95 Mil/uL (4.40-5.90); RED CELL DISTRIBUTION WIDTH 20.8 % (11.5-14.5)
[2017-05-06 07:44] LABS: ALB/GLOB RATIO 0.9 (1.0-2.1); ALBUMIN 3.2 g/dL (3.5-5.0); CALCIUM 8.6 mg/dl (8.6-10.4)
[2017-05-06] MEDS: (Novolin R) Insulin Human Regular 100 units/ml vial SC SCH ×4 (08:10→21:49)
[2017-05-06] MEDS: (Novolin 70/30) NPH/Regular 70/30 Units/ml 10 ml vial SC SCH ×2 (08:10→17:15)
[2017-05-06 09:56] LABS: HEPATITIS B SURFACE AG Negative (NEGATIVE)
[2017-05-06] MEDS ORDERED: Pneumococcal 23-Valent Vaccine IM ONE (10:00)
[2017-05-06 10:02] LABS: HEPATITIS A IGM NEGATIVE (NEGATIVE); HEPATITIS B CORE AB NEGATIVE (NEGATIVE)
[2017-05-06 10:14] LABS: HEPATITIS C ANTIBODY NEGATIVE (NEGATIVE)
--- NOTE | 2017-05-06 10:51 | CT ---
PROCEDURE: CT Chest without contrast HISTORY: pneumonia COMPARISON: Comparison is made with the previous study dated 11/10/2016 TECHNIQUE: Contiguous axial images were obtained through the chest without intravenous contrast enhancement. Sagittal and coronal reconstructions were performed. Radiation dose (DLP): 961.82 mGy-cm. This CT exam was performed using one or more of the following dose reduction techniques: Automated exposure control, adjustment of the mA and/or kV according to patient size, and/or use of iterative reconstruction technique. FINDINGS: LUNGS: Again seen are patchy foci of ground-glass opacities associated with interstitial septal thickening. Again seen is bilateral central and lower lobe mild bronchiectasis these findings are similar to the previous study findings. The differential consideration includes pneumonitis such as desquamative interstitial pneumonitis (DIP) and NSIP. The differential would diagnosis also includes less likely chronic hypersensitivity pneumonitis. No evidence of airspace consolidation. No evidence of suspicious mass. Reticular opacities are again seen at the right lung base likely scar tissue. MEDIASTINUM: Unremarkable thoracic aorta. No aneurysm. The heart is mildly enlarged. Main pulmonary artery is mildly enlarged. Interval worsening of mediastinal lymphadenopathy more prominent at the AP window and precarinal regions. There is also suspicious for hilar lymphadenopathy more prominent on the right. PLEURA: Foci of pleural thickening on the right mid and lower chest are again seen. No evidence of significant pleural effusion or pneumothorax. BONES: No fracture. No destructive lesion. UPPER ABDOMEN: Probable cirrhotic manifestation of the liver. Gallstones are noted without evidence of acute cholecystitis. OTHER FINDINGS: None. IMPRESSION: Patchy ground-glass opacities associated with interstitial thickening and bronchiectasis similar but less severe comparing to the previous study. Findings again nonspecific and the differential consideration includes DIP or NSIP versus chronic hypersensitivity pneumonitis. No CT evidence of pneumonia/ airspace consolidation. Interval mild worsening of mediastinal and right axillary lymphadenopathy since the previous exam.
--- NOTE | 2017-05-06 12:18 | CP.PCM.CON ---
History of Present Illness - History of Present Illness History of Present Illness: 46-year-old male with a history of COPD, bronchial asthma, diabetes, hypertension, DVT on anticoagulation, history of chronic liver disease, renal insufficiency, nephrotic syndrome, severe hypoxia, interstitial lung changes and disease, on oxygen and BiPAP. Patient was compensating so far, recently he started gaining weight, associated increasing leg swelling and abdominal swelling. There is also having some shortness of breath associated with cough. He did not have any fever. Denies any chest pain. Notes that he does not salt or fluid restrict. Uncertain of his home diuretic dose. Family history of diabetes Review of Systems - Constitutional Constitutional: Fatigue, Weight Gain - EENT Eyes: absent: Diplopia, Itchy Eyes Nose/Mouth/Throat: absent: Epistaxis, Nasal Congestion - Cardiovascular Cardiovascular: Dyspnea. absent: Chest Pain - Respiratory Respiratory: absent: Cough, Stridor - Gastrointestinal Gastrointestinal: absent: Abdominal Pain, Bloating - Genitourinary Genitourinary: absent: Change in Urinary Stream, Difficulty Urinating - Musculoskeletal Musculoskeletal: absent: Abnormal Gait, Muscle Cramps - Neurological Neurological: absent: Abnormal Gait, Abnormal Speech - Psychiatric Psychiatric: absent: Abnormal Sleep Pattern, Anhedonia - Hematologic/Lymphatic Hematologic: absent: Easy Bleeding, Easy Bruising Past Patient History - Infectious Disease Hx of Infectious Diseases: None - Past Medical History & Family History Past Medical History?: Yes - Past Social History Smoking Status: Former Smoker - CARDIAC Hx Cardiac Disorders: Yes Hx Congestive Heart Failure: Yes Hx Hypertension: Yes - PULMONARY Hx Respiratory Disorders: Yes Hx Asthma: Yes Hx Chronic Obstructive Pulmonary Disease (COPD): Yes Hx Pneumonia: Yes - NEUROLOGICAL Hx Neurological Disorder: Yes - HEENT Hx HEENT Problems: No - RENAL Hx Chronic Kidney Disease: No - ENDOCRINE/METABOLIC Hx Endocrine Disorders: Yes Hx Diabetes Mellitus Type 2: Yes - HEMATOLOGICAL/ONCOLOGICAL Hx Blood Disorders: Yes Other/Comment: Right LE DVT - INTEGUMENTARY Hx Dermatological Problems: Yes Hx Cellulitis: Yes - MUSCULOSKELETAL/RHEUMATOLOGICAL Hx Musculoskeletal Disorders: Yes Hx Arthritis: Yes Hx Falls: No - GASTROINTESTINAL Hx Gastrointestinal Disorders: No - GENITOURINARY/GYNECOLOGICAL Hx Genitourinary Disorders: No - PSYCHIATRIC Hx Anxiety: No Hx Substance Use: No - SURGICAL HISTORY Hx Surgeries: Yes Hx Splenectomy: Yes Other/Comment: IVC Filter placement - ANESTHESIA Hx Anesthesia: Yes Hx Anesthesia Reactions: No Hx Malignant Hyperthermia: No Meds Allergies/Adverse Reactions: Allergies Allergy/AdvReac Type Severity Reaction Status Date / Time EGG Allergy Intermediate RASH Verified 05/05/17 14:28 - Medications Medications: Current Medications Albuterol Sulfate (Albuterol 0.083% Inhal Carly (2.5 Mg/3 Ml) Ud) 2.5 mg IH Q2 PRN PRN Reason: Wheezing Albuterol/Ipratropium (Duoneb 3 Mg/0.5 Mg (3 Ml) Ud) 3 ml INH RQ6 [facility] Last Admin: 05/06/17 08:14 Dose: 3 ml Apixaban (Eliquis) 2.5 mg PO Q12 [facility] Last Admin: 05/06/17 10:25 Dose: 2.5 mg Aspirin (Aspirin Chewable) 81 mg PO DAILY [facility] Last Admin: 05/06/17 10:25 Dose: 81 mg Furosemide (Lasix) 40 mg IVP BID [facility] Last Admin: 05/06/17 10:24 Dose: 40 mg Insulin Human Isoph/Insulin Regular (Novolin 70/30 (70/30 Units/Ml) 10 Ml) 20 units SC BIDAC [facility] Last Admin: 05/06/17 08:10 Dose: Not Given Insulin Human Regular (Novolin R) 0 unit SC ACHS ANABELLA PRN Reason: Protocol Last Admin: 05/06/17 08:10 Dose: Not Given Losartan Potassium (Cozaar) 25 mg PO DAILY [facility] Metoprolol Tartrate (Lopressor) 12.5 mg PO BID [facility] Montelukast Sodium (Singulair) 10 mg PO HS [facility] Last Admin: 05/05/17 21:13 Dose: 10 mg Rosuvastatin Calcium (Crestor) 20 mg PO HS [facility] Last Admin: 05/05/17 21:12 Dose: 20 mg Fluticasone/Salmeterol (Advair Diskus 250/50) 1 puff IH RQ12 [facility] Last Admin: 05/06/17 08:14 Dose: 1 puff Physical Exam - Constitutional Appears: Non-toxic, Younger Than Stated Age - Head Exam Head Exam: ATRAUMATIC, NORMAL INSPECTION - Eye Exam Eye Exam: EOMI, Normal appearance - ENT Exam ENT Exam: Mucous Membranes Moist - Neck Exam Neck exam: Positive for: Full Rom. Negative for: Lymphadenopathy - Respiratory Exam Respiratory Exam: Decreased Breath Sounds, NORMAL BREATHING PATTERN. absent: Accessory Muscle Use - Cardiovascular Exam Cardiovascular Exam: REGULAR RHYTHM. absent: Rubs - GI/Abdominal Exam GI & Abdominal Exam: Distended, Normal Bowel Sounds - Extremities Exam Extremities exam: Positive for: pedal edema - Neurological Exam Neurological exam: Alert, Oriented x3 Results - Vital Signs Recent Vital Signs: Last Vital Signs Temp 97.5 F L 05/06/17 08:19 Pulse 83 05/06/17 08:19 Resp 18 05/06/17 08:19 BP 110/63 05/06/17 10:24 Pulse Ox 95 05/06/17 08:19 - Labs Result Diagrams: 05/06/17 07:02 05/06/17 07:02 Labs: Laboratory Results - last 24 hr 05/05/17 05/05/17 05/05/17 16:35 16:35 17:08 WBC 12.7 H RBC 5.02 Hgb 12.6 D Hct 40.2 MCV 80.1 MCH 25.1 L MCHC 31.3 L RDW 20.9 H Plt Count 170 MPV 10.9 Neut % (Auto) 62.0 Lymph % (Auto) 20.0 Avery % (Auto) 10.5 H Eos % (Auto) 5.9 H Baso % (Auto) 1.6 Neut # (Auto) 7.9 H Lymph # (Auto) 2.5 Avery # (Auto) 1.3 H Eos # (Auto) 0.7 Baso # (Auto) 0.2 PT 15.1 H INR 1.3 APTT 80 H Sodium 136 Potassium 4.7 Chloride 99 Carbon Dioxide 31 H Anion Gap 11 BUN 58 H Creatinine 2.0 H Est GFR ( Amer) 44 Est GFR (Non-Af Amer) 36 POC Glucose (mg/dL) Random Glucose 94 Calcium 8.2 L Total Bilirubin 0.9 AST 30 ALT 22 Alkaline Phosphatase 147 H Total Creatine Kinase 239 H CK-MB (Mass) 5.86 H Troponin I 0.0260 NT-Pro-B Natriuret Pep 1880 H Total Protein 6.5 Albumin 3.1 L Globulin 3.4 Albumin/Globulin Ratio 0.9 L Triglycerides Cholesterol LDL Cholesterol Direct HDL Cholesterol Hepatitis A IgM Ab Hep Bs Antigen Hep B Core IgM Ab Hepatitis C Antibody 05/05/17 05/05/17 05/06/17 20:41 21:27 01:52 WBC RBC Hgb Hct MCV MCH MCHC RDW Plt Count MPV Neut % (Auto) Lymph % (Auto) Avery % (Auto) Eos % (Auto) Baso % (Auto) Neut # (Auto) Lymph # (Auto) Avery # (Auto) Eos # (Auto) Baso # (Auto) PT INR APTT Sodium Potassium Chloride Carbon Dioxide Anion Gap BUN Creatinine Est GFR ( Amer) Est GFR (Non-Af Amer) POC Glucose (mg/dL) 68 111 H 114 H Random Glucose Calcium Total Bilirubin AST ALT Alkaline Phosphatase Total Creatine Kinase CK-MB (Mass) Troponin I NT-Pro-B Natriuret Pep Total Protein Albumin Globulin Albumin/Globulin Ratio Triglycerides Cholesterol LDL Cholesterol Direct HDL Cholesterol Hepatitis A IgM Ab Hep Bs Antigen Hep B Core IgM Ab Hepatitis C Antibody 05/06/17 05/06/17 05/06/17 07:02 07:02 07:02 WBC 13.0 H RBC 4.95 Hgb 12.8 Hct 40.3 MCV 81.5 MCH 25.8 L MCHC 31.6 L RDW 20.8 H Plt Count 171 MPV 10.4 Neut % (Auto) 61.6 Lymph % (Auto) 20.1 Avery % (Auto) 11.5 H Eos % (Auto) 6.2 H Baso % (Auto) 0.6 Neut # (Auto) 8.0 H Lymph # (Auto) 2.6 Avery # (Auto) 1.5 H Eos # (Auto) 0.8 H Baso # (Auto) 0.1 PT INR APTT Sodium 136 Potassium 5.3 H Chloride 99 Carbon Dioxide 31 H Anion Gap 11 BUN 56 H Creatinine 2.3 H Est GFR ( Amer) 37 Est GFR (Non-Af Amer) 31 POC Glucose (mg/dL) Random Glucose 102 Calcium 8.6 Total Bilirubin 0.7 AST 28 ALT 27 Alkaline Phosphatase 157 H Total Creatine Kinase CK-MB (Mass) Troponin I NT-Pro-B Natriuret Pep Total Protein 6.6 Albumin 3.2 L Globulin 3.5 Albumin/Globulin Ratio 0.9 L Triglycerides 119 Cholesterol 134 LDL Cholesterol Direct 48 HDL Cholesterol 49 Hepatitis A IgM Ab Negative Hep Bs Antigen Negative Hep B Core IgM Ab Negative Hepatitis C Antibody Negative 05/06/17 05/06/17 07:32 11:33 WBC RBC Hgb Hct MCV MCH MCHC RDW Plt Count MPV Neut % (Auto) Lymph % (Auto) Avery % (Auto) Eos % (Auto) Baso % (Auto) Neut # (Auto) Lymph # (Auto) Avery # (Auto) Eos # (Auto) Baso # (Auto) PT INR APTT Sodium Potassium Chloride Carbon Dioxide Anion Gap BUN Creatinine Est GFR ( Amer) Est GFR (Non-Af Amer) POC Glucose (mg/dL) 87 144 H Random Glucose Calcium Total Bilirubin AST ALT Alkaline Phosphatase Total Creatine Kinase CK-MB (Mass) Troponin I NT-Pro-B Natriuret Pep Total Protein Albumin Globulin Albumin/Globulin Ratio Triglycerides Cholesterol LDL Cholesterol Direct HDL Cholesterol Hepatitis A IgM Ab Hep Bs Antigen Hep B Core IgM Ab Hepatitis C Antibody Assessment & Plan - Assessment and Plan (Free Text) Assessment: nephrotic syndrome diabetes hypertension dvt history fluid overload continue diuresis if K continues to stay elevated, d/c cozaar salt and fluid restrict protein quantification
--- NOTE | 2017-05-06 12:46 | US ---
HISTORY: ascitis COMPARISON: Comparison is made with the previous CT of the abdomen and pelvis dated 05/27/2016 previous ultrasound of the kidneys dated 10/15/2016 TECHNIQUE: Sonographic evaluation of the abdomen. FINDINGS: LIVER: Measures 21.4 cm. Heterogeneous increased echogenicity of the liver parenchyma. No mass. No intrahepatic bile duct dilatation. GALLBLADDER: There are small gallstones seen without evidence of acute cholecystitis. COMMON BILE DUCT: Measures 4 mm. No stones. No dilatation. PANCREAS: Unremarkable as visualized. No mass. No ductal dilatation. RIGHT KIDNEY: Measures 12.1 x 5.6 x 53. m. Normal echogenicity. No calculus, mass, or hydronephrosis. LEFT KIDNEY: Measures 12.9 x 6.2 x 5.3cm. Normal echogenicity. No calculus, mass, or hydronephrosis. SPLEEN: The spleen was not visualized AORTA: No aneurysmal dilatation. IVC: Unremarkable. OTHER FINDINGS: None. IMPRESSION: [id number] enlarged heterogeneous echogenic liver likely due to hepatic steatosis. Small gallstones without ultrasound evidence of acute cholecystitis. Nonvisualization of the spleen.
--- NOTE | 2017-05-06 12:52 | CP.PCM.PN ---
Subjective - Date & Time of Evaluation Date of Evaluation: 05/06/17 Time of Evaluation: 12:52 - Subjective Subjective: The patient still having some cough. Shortness of breath noted. Leg swelling still noted, but no swelling noted. Slightly better. This morning patient went for sonogram. I also advised the patient to have a CAT scan of the chest in Patient's vital signs reviewed Saturation 94% nasal cannula. Blood pressure 110/63 Chest bilateral diffuse wheezing and off noted. Edema noted in the legs CAT scan of the chest and showing evidence of diffuse interstitial lung changes. According to the reading slightly better than in the past, but underlaying fibrotic changes possible. Along with a possible fluid overload status Assessment and recommendation: 46-year-old male with history of diabetes hypertension. Obstructive sleep apnea. Patient also has a nephrotic syndrome due to his renal insufficiency. Diabetic-related changes. Underlaying lung disease the cause is unclear, patient in the past had a repeated respirator failure and intubated. Now possibly has interstitial lung disease. May need lung biopsy, we'll discuss with the patient. Will continue the diuretics. BiPAP Will follow the patient. Objective - Vital Signs/Intake and Output Vital Signs (last 24 hours): Temp Pulse Resp BP Pulse Ox 97.5 F L 83 18 110/63 95 05/06/17 08:19 05/06/17 08:19 05/06/17 08:19 05/06/17 10:24 05/06/17 08:19 - Medications Medications: Current Medications Albuterol Sulfate (Albuterol 0.083% Inhal Carly (2.5 Mg/3 Ml) Ud) 2.5 mg IH Q2 PRN PRN Reason: Wheezing Albuterol/Ipratropium (Duoneb 3 Mg/0.5 Mg (3 Ml) Ud) 3 ml INH RQ6 [facility] Last Admin: 05/06/17 08:14 Dose: 3 ml Apixaban (Eliquis) 2.5 mg PO Q12 [facility] Last Admin: 05/06/17 10:25 Dose: 2.5 mg Aspirin (Aspirin Chewable) 81 mg PO DAILY [facility] Last Admin: 05/06/17 10:25 Dose: 81 mg Furosemide (Lasix) 40 mg IVP BID [facility] Last Admin: 05/06/17 10:24 Dose: 40 mg Insulin Human Isoph/Insulin Regular (Novolin 70/30 (70/30 Units/Ml) 10 Ml) 20 units SC BIDAC [facility] Last Admin: 05/06/17 08:10 Dose: Not Given Insulin Human Regular (Novolin R) 0 unit SC ACHS [facility] PRN Reason: Protocol Last Admin: 05/06/17 08:10 Dose: Not Given Losartan Potassium (Cozaar) 25 mg PO DAILY [facility] Metoprolol Tartrate (Lopressor) 12.5 mg PO BID [facility] Montelukast Sodium (Singulair) 10 mg PO HS [facility] Last Admin: 05/05/17 21:13 Dose: 10 mg Rosuvastatin Calcium (Crestor) 20 mg PO HS [facility] Last Admin: 05/05/17 21:12 Dose: 20 mg Fluticasone/Salmeterol (Advair Diskus 250/50) 1 puff IH RQ12 [facility] Last Admin: 05/06/17 08:14 Dose: 1 puff - Labs Labs: 05/06/17 07:02 05/06/17 07:02 PT 15.1 SECONDS (9.7-12.2) H 05/05/17 17:08 INR 1.3 05/05/17 17:08 APTT 80 SECONDS (21-34) H 05/05/17 17:08
[2017-05-06] MEDS ORDERED: Albuterol 0.083% Inhal Sol (2.5 mg/3 mL) UD IH PRN (16:00)
[2017-05-07] MEDS: Albuterol-Ipratrop 3 mg / 0.5 (3 ml) UD INH SCH ×4 (02:10→19:58)
[2017-05-07] MEDS: Fluticasone-Salmeterol 500-50mcg Diskus INH SCH ×2 (07:20→19:58)
[2017-05-07] MEDS: (Novolin R) Insulin Human Regular 100 units/ml vial SC SCH ×4 (08:32→22:29)
[2017-05-07] MEDS: (Novolin 70/30) NPH/Regular 70/30 Units/ml 10 ml vial SC SCH ×2 (08:32→17:15)
[2017-05-07] MEDS ORDERED: Tramadol 25 mg PO ONE (15:02)
--- NOTE | 2017-05-07 19:11 | CP.PCM.PN ---
Subjective - Date & Time of Evaluation Date of Evaluation: 05/07/17 Time of Evaluation: 19:11 - Subjective Subjective: Patient complaining of headache. Patient disappeared influenza vaccination yesterday, and he is concerned that that is causing the headache. No cough noted. Denies any nausea. No vomiting noted. Patient is eating well. Vital signs reviewed No neck vein distention noted Chest bilateral wheezing noted CVS regular heart sound, no murmur noted Abdomen soft, nontender. 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 Admitted with fluid overload state. DVT, on anti-coagulation. We'll continue to monitor BiPAP and will follow the patient Objective - Vital Signs/Intake and Output Vital Signs (last 24 hours): Temp Pulse Resp BP Pulse Ox 98.2 F 90 20 143/79 96 05/07/17 15:50 05/07/17 15:50 05/07/17 15:50 05/07/17 18:05 05/07/17 15:50 - Medications Medications: Current Medications Acetaminophen (Tylenol 325mg Tab) 975 mg PO Q6 PRN PRN Reason: Pain, Mild (1-3) Last Admin: 05/07/17 10:29 Dose: 975 mg Albuterol Sulfate (Albuterol 0.083% Inhal Carly (2.5 Mg/3 Ml) Ud) 2.5 mg IH RQ2 PRN PRN Reason: Wheezing Albuterol/Ipratropium (Duoneb 3 Mg/0.5 Mg (3 Ml) Ud) 3 ml INH RQ6 [facility] Last Admin: 05/07/17 13:31 Dose: Not Given Apixaban (Eliquis) 2.5 mg PO Q12 [facility] Last Admin: 05/07/17 10:28 Dose: 2.5 mg Aspirin (Aspirin Chewable) 81 mg PO DAILY [facility] Last Admin: 05/07/17 10:28 Dose: 81 mg Furosemide (Lasix) 40 mg IVP BID [facility] Last Admin: 05/07/17 18:05 Dose: 40 mg Insulin Human Isoph/Insulin Regular (Novolin 70/30 (70/30 Units/Ml) 10 Ml) 20 units SC BIDAC [facility] Last Admin: 05/07/17 17:15 Dose: 20 units Insulin Human Regular (Novolin R) 0 unit SC ACHS [facility] PRN Reason: Protocol Last Admin: 05/07/17 17:15 Dose: Not Given Losartan Potassium (Cozaar) 50 mg PO DAILY [facility] Metoprolol Tartrate (Lopressor) 12.5 mg PO BID [facility] Last Admin: 05/07/17 18:05 Dose: 12.5 mg Montelukast Sodium (Singulair) 10 mg PO HS [facility] Last Admin: 05/06/17 21:26 Dose: 10 mg Rosuvastatin Calcium (Crestor) 20 mg PO HS [facility] Last Admin: 05/06/17 21:26 Dose: 20 mg Fluticasone/Salmeterol (Advair Diskus 500/50) 1 puff INH RQ12 [facility] Last Admin: 05/07/17 07:20 Dose: Not Given - Labs Labs: 05/06/17 07:02 05/06/17 07:02 PT 15.1 SECONDS (9.7-12.2) H 05/05/17 17:08 INR 1.3 05/05/17 17:08 APTT 80 SECONDS (21-34) H 05/05/17 17:08
[2017-05-08] MEDS: Albuterol-Ipratrop 3 mg / 0.5 (3 ml) UD INH SCH ×4 (02:22→20:03)
[2017-05-08] MEDS: Fluticasone-Salmeterol 500-50mcg Diskus INH SCH ×2 (07:23→20:03)
[2017-05-08 07:48] LABS: ALB/GLOB RATIO 0.9 (1.0-2.1); ALBUMIN 2.9 g/dL (3.5-5.0); CALCIUM 8.3 mg/dl (8.6-10.4)
[2017-05-08 08:06] LABS: BASO # 0.1 K/uL (0.0-0.2); BASO % 1.1 % (0.0-2.0); EOS # 0.7 K/uL (0.0-0.7); EOS % 6.4 % (0.0-4.0); HEMOGLOBIN 12.4 g/dL (12.0-18.0); LYMPH # 2.2 K/uL (1.0-4.3); LYMPH % 19.4 % (20.0-40.0); MEAN CELL VOLUME 79.9 fL (80.0-94.0); MEAN CORPUSCULAR HEMOGLOBIN 25.6 pg (27.0-31.0); MEAN CORPUSCULAR HGB CONC 32.1 g/dL (33.0-37.0); MEAN PLATELET VOLUME 10.2 fL (7.2-11.7); MONO # 1.4 K/uL (0.0-0.8); NEUT % 61.1 % (50.0-75.0); NRBC % 0.2 % (0.0-2.0); RBC 4.83 Mil/uL (4.40-5.90); RED CELL DISTRIBUTION WIDTH 20.3 % (11.5-14.5); WHITE BLOOD COUNT 11.5 K/uL (4.8-10.8)
--- NOTE | 2017-05-08 08:41 | CP.PCM.PN ---
Subjective - Date & Time of Evaluation Date of Evaluation: 05/08/17 Time of Evaluation: 08:39 - Subjective Subjective: Patient is currently feeling well. Complaining of no chest pain But the leg swelling noted. Room air oxygen saturation is 86% Vital signs reviewed No neck vein distention noted Bilateral diffuse lower lung wheezing noted CVS regular heart sound, no murmur noted Abdomen soft, nontender. 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 24-hour urine analysis showing proteinuria 21 g. Assessment and recommendation: Patient is a 46-year-old male with history of diabetes, hypertension, history of DVT. Patient has a history of traumatic splenectomy. Currently patient is having interstitial lung disease, associated proteinuria and nephrotic syndrome, underlying connective tissue disease likely. The workup is pending right now. We'll continue the intravenous Lasix. Nephrology evaluation and follow-up We'll get a CT of the head for headache and will follow the patient Objective - Vital Signs/Intake and Output Vital Signs (last 24 hours): Temp Pulse Resp BP Pulse Ox 98.2 F 100 H 20 143/79 96 05/07/17 15:50 05/08/17 04:00 05/07/17 15:50 05/07/17 18:05 05/07/17 15:50 Intake and Output: 05/08/17 05/08/17 06:59 18:59 Intake Total 550 Balance 550 - Medications Medications: Current Medications Acetaminophen (Tylenol 325mg Tab) 975 mg PO Q6 PRN PRN Reason: Pain, Mild (1-3) Last Admin: 05/08/17 06:18 Dose: 975 mg Albuterol Sulfate (Albuterol 0.083% Inhal Carly (2.5 Mg/3 Ml) Ud) 2.5 mg IH RQ2 PRN PRN Reason: Wheezing Albuterol/Ipratropium (Duoneb 3 Mg/0.5 Mg (3 Ml) Ud) 3 ml INH RQ6 [facility] Last Admin: 05/08/17 07:22 Dose: 3 ml Apixaban (Eliquis) 2.5 mg PO Q12 [facility] Last Admin: 05/07/17 21:28 Dose: 2.5 mg Aspirin (Aspirin Chewable) 81 mg PO DAILY [facility] Last Admin: 05/07/17 10:28 Dose: 81 mg Furosemide (Lasix) [address] [facility] Last Admin: 05/07/17 18:05 Dose: 40 mg Insulin Human Isoph/Insulin Regular (Novolin 70/30 (70/30 Units/Ml) 10 Ml) [address] [facility] Last Admin: 05/07/17 17:15 Dose: 20 units Insulin Human Regular (Novolin R) 0 unit SC ACHS [facility] PRN Reason: Protocol Last Admin: 05/07/17 22:29 Dose: Not Given Losartan Potassium (Cozaar) [address] [facility] Metoprolol Tartrate (Lopressor) 12.[address] [facility] Last Admin: 05/07/17 18:05 Dose: 12.5 mg Montelukast Sodium (Singulair) [address] [facility] Last Admin: 05/07/17 21:28 Dose: 10 mg Rosuvastatin Calcium (Crestor) [address] [facility] Last Admin: 05/07/17 21:28 Dose: 20 mg Fluticasone/Salmeterol (Advair Diskus 500/50) [address] [facility] Last Admin: 05/08/17 07:23 Dose: Not Given - Labs Labs: 05/08/17 07:11 05/08/17 07:11 PT 15.1 SECONDS (9.7-12.2) H 05/05/17 17:08 INR 1.3 05/05/17 17:08 APTT 80 SECONDS (21-34) H 05/05/17 17:08
--- NOTE | 2017-05-08 10:09 | CT ---
PROCEDURE: CT brain dated 05/08/17 HISTORY: Headache COMPARISON: Comparison made with CTA of the brain dated 05/01/2015 and MRI of the brain dated 05/02/2015. TECHNIQUE: Contiguous helical/transaxial computed tomography images were obtained through the head/brain without intravenous contrast. Radiation dose: Total exam DLP = 1142.28 9 mGy-cm. This CT exam was performed using one or more of the following dose reduction techniques: Automated exposure control, adjustment of the mA and/or kV according to patient size, and/or use of iterative reconstruction technique. FINDINGS: HEMORRHAGE: No parenchymal, subarachnoid or extra-axial hemorrhage. BRAIN: Previous noted minimal slightly confluent prolonged T2 signal changes in the periventricular white matter as well as a few tiny foci of increased T2 signal scattered about the subcortical white matter near the convexity poorly seen compared to high-resolution MRI. Ventricular and sulcal size are normal. VENTRICLES: No obstructive hydrocephalus. CALVARIUM: Unremarkable. PARANASAL SINUSES: There is a moderately large rounded focus of polypoid like focus of presumed mucous retention formation left maxillary antrum. MASTOID AIR CELLS: Unremarkable as visualized. No inflammatory changes. OTHER FINDINGS: None. IMPRESSION: No acute intracranial hemorrhage. . Minimal chronic periventricular white matter ischemic changes less well seen on this study as compared to prior high-resolution MRI. Moderately large mucous retention cyst left maxillary sinus.
[2017-05-08 11:33] LABS: ANA PATTERN HOMOGENOUS
--- NOTE | 2017-05-08 12:03 | CP.PCM.PN ---
Subjective - Date & Time of Evaluation Date of Evaluation: 05/08/17 Time of Evaluation: 12:00 - Subjective Subjective: less dyspneic now known to me- h/o severe nephrotic syndrome due to DM h/o hypercoagulable state due to nephrotic syndrome often presents with fluid overload and CHF pattern on CXR Also with COPD creat has increased modestly in last year on lower dose ARB as pt with mild hyperkalemia expect CKD to gradually worsen given degree of proteinuria Objective - Vital Signs/Intake and Output Vital Signs (last 24 hours): Temp Pulse Resp BP Pulse Ox 98.0 F 94 H 20 156/79 H 94 L 05/08/17 08:59 05/08/17 08:59 05/08/17 08:59 05/08/17 10:31 05/08/17 08:59 Intake and Output: 05/08/17 05/08/17 06:59 18:59 Intake Total 550 Balance 550 - Medications Medications: Current Medications Acetaminophen (Tylenol 325mg Tab) 975 mg PO Q6 PRN PRN Reason: Pain, Mild (1-3) Last Admin: 05/08/17 06:18 Dose: 975 mg Albuterol Sulfate (Albuterol 0.083% Inhal Carly (2.5 Mg/3 Ml) Ud) 2.5 mg IH RQ2 PRN PRN Reason: Wheezing Albuterol/Ipratropium (Duoneb 3 Mg/0.5 Mg (3 Ml) Ud) 3 ml INH RQ6 [facility] Last Admin: 05/08/17 07:22 Dose: 3 ml Apixaban (Eliquis) 2.5 mg PO Q12 [facility] Last Admin: 05/08/17 10:31 Dose: 2.5 mg Aspirin (Aspirin Chewable) 81 mg PO DAILY [facility] Last Admin: 05/08/17 10:31 Dose: 81 mg Furosemide (Lasix) 40 mg IVP BID [facility] Last Admin: 05/08/17 10:31 Dose: 40 mg Insulin Human Isoph/Insulin Regular (Novolin 70/30 (70/30 Units/Ml) 10 Ml) 20 units SC BIDAC [facility] Last Admin: 05/07/17 17:15 Dose: 20 units Insulin Human Regular (Novolin R) 0 unit SC ACHS [facility] PRN Reason: Protocol Last Admin: 05/07/17 22:29 Dose: Not Given Losartan Potassium (Cozaar) 50 mg PO DAILY [facility] Last Admin: 05/08/17 10:31 Dose: 50 mg Metoprolol Tartrate (Lopressor) 12.5 mg PO BID [facility] Last Admin: 05/08/17 10:31 Dose: 12.5 mg Montelukast Sodium (Singulair) 10 mg PO HS [facility] Last Admin: 05/07/17 21:28 Dose: 10 mg Rosuvastatin Calcium (Crestor) 20 mg PO HS [facility] Last Admin: 05/07/17 21:28 Dose: 20 mg Fluticasone/Salmeterol (Advair Diskus 500/50) 1 puff INH RQ12 [facility] Last Admin: 05/08/17 07:23 Dose: Not Given - Labs Labs: 05/08/17 07:11 05/08/17 07:11 PT 15.1 SECONDS (9.7-12.2) H 05/05/17 17:08 INR 1.3 05/05/17 17:08 APTT 80 SECONDS (21-34) H 05/05/17 17:08 - Constitutional Appears: No Acute Distress, Chronically Ill - Head Exam Head Exam: ATRAUMATIC, NORMAL INSPECTION - Eye Exam Eye Exam: EOMI, Normal appearance - Neck Exam Neck Exam: Normal Inspection. absent: Tenderness - Respiratory Exam Respiratory Exam: Clear to Ausculation Bilateral, NORMAL BREATHING PATTERN - Cardiovascular Exam Cardiovascular Exam: REGULAR RHYTHM, +S1 - GI/Abdominal Exam GI & Abdominal Exam: Soft. absent: Tenderness - Extremities Exam Extremities Exam: Pedal Edema. absent: Tenderness - Neurological Exam Neurological Exam: Awake, CN II-XII Intact - Skin Skin Exam: Dry, Warm Assessment and Plan (1) Asthma Status: Acute (2) CHF (congestive heart failure) Status: Acute (3) CKD stage 3 due to type 2 diabetes mellitus Status: Acute (4) Coagulopathy Status: Acute (5) Nephrotic syndrome Status: Acute - Assessment and Plan (Free Text) Plan: Agree with present diuretics - pt doing better keep diuretics at relative high doses due to CHF recurrences ARBs as tolerated renal function will likely worsen but does not need dialysis now
--- NOTE | 2017-05-08 12:47 | CARD ---
APPROVED REPORT EKG Measurement Heart [id number] 158P4 [id number] <Conclusion> Normal sinus rhythm Right bundle branch block Abnormal ECG
[2017-05-08] MEDS: (Novolin R) Insulin Human Regular 100 units/ml vial SC SCH ×4 (13:26→22:46)
[2017-05-08] MEDS: (Novolin 70/30) NPH/Regular 70/30 Units/ml 10 ml vial SC SCH ×2 (13:26→16:51)
[2017-05-09] MEDS: Albuterol-Ipratrop 3 mg / 0.5 (3 ml) UD INH SCH ×4 (01:45→20:34)
[2017-05-09] MEDS: Tramadol 25 mg PO PRN (06:57)
[2017-05-09] MEDS: Fluticasone-Salmeterol 500-50mcg Diskus INH SCH ×2 (07:57→20:36)
[2017-05-09] MEDS: (Novolin 70/30) NPH/Regular 70/30 Units/ml 10 ml vial SC SCH ×2 (08:12→17:41)
[2017-05-09] MEDS: (Novolin R) Insulin Human Regular 100 units/ml vial SC SCH ×4 (08:12→21:22)
--- NOTE | 2017-05-09 11:14 | CP.PCM.PN ---
Subjective - Date & Time of Evaluation Date of Evaluation: 05/09/17 Time of Evaluation: 11:13 - Subjective Subjective: seen and examined improved bretahing, still w/ significant swelling no n/v/d/cp/dizziness/palpitations/f/c/cough Objective - Vital Signs/Intake and Output Vital Signs (last 24 hours): Temp Pulse Resp BP Pulse Ox 98.1 F 111 H 18 172/77 H 96 05/09/17 07:00 05/09/17 10:30 05/09/17 07:00 05/09/17 10:31 05/09/17 07:00 - Medications Medications: Current Medications Acetaminophen (Tylenol 325mg Tab) 975 mg PO Q6 PRN PRN Reason: Pain, Mild (1-3) Last Admin: 05/09/17 01:53 Dose: 975 mg Albuterol Sulfate (Albuterol 0.083% Inhal Carly (2.5 Mg/3 Ml) Ud) 2.5 mg IH RQ2 PRN PRN Reason: Wheezing Albuterol/Ipratropium (Duoneb 3 Mg/0.5 Mg (3 Ml) Ud) 3 ml INH RQ6 [facility] Last Admin: 05/09/17 07:46 Dose: 3 ml Apixaban (Eliquis) 2.5 mg PO Q12 [facility] Last Admin: 05/09/17 10:31 Dose: 2.5 mg Aspirin (Aspirin Chewable) 81 mg PO DAILY [facility] Last Admin: 05/09/17 10:31 Dose: 81 mg Furosemide (Lasix) 40 mg IVP BID [facility] Last Admin: 05/09/17 10:31 Dose: 40 mg Insulin Human Isoph/Insulin Regular (Novolin 70/30 (70/30 Units/Ml) 10 Ml) 20 units SC BIDAC [facility] Last Admin: 05/09/17 08:12 Dose: 20 units Insulin Human Regular (Novolin R) 0 unit SC ACHS [facility] PRN Reason: Protocol Last Admin: 05/09/17 08:12 Dose: 3 unit Losartan Potassium (Cozaar) 50 mg PO DAILY [facility] Last Admin: 05/09/17 10:31 Dose: 50 mg Metoprolol Tartrate (Lopressor) 12.5 mg PO BID [facility] Last Admin: 05/09/17 10:31 Dose: 12.5 mg Montelukast Sodium (Singulair) 10 mg PO HS [facility] Last Admin: 05/08/17 21:37 Dose: 10 mg Rosuvastatin Calcium (Crestor) 20 mg PO HS [facility] Last Admin: 05/08/17 21:37 Dose: 20 mg Fluticasone/Salmeterol (Advair Diskus 500/50) 1 puff INH RQ12 [facility] Last Admin: 05/09/17 07:57 Dose: 1 inhaler Tramadol HCl (Ultram) 25 mg PO TID PRN PRN Reason: Pain, moderate (4-7) Last Admin: 05/09/17 06:57 Dose: 25 mg - Labs Labs: 05/08/17 07:11 05/08/17 07:11 PT 15.1 SECONDS (9.7-12.2) H 05/05/17 17:08 INR 1.3 05/05/17 17:08 APTT 80 SECONDS (21-34) H 05/05/17 17:08 - Constitutional Appears: No Acute Distress, Chronically Ill (obese) - Head Exam Head Exam: NORMAL INSPECTION, NORMOCEPHALIC - Eye Exam Eye Exam: Normal appearance, PERRL - ENT Exam ENT Exam: Mucous Membranes Moist, Normal Exam - Neck Exam Neck Exam: Full ROM, Normal Inspection - Respiratory Exam Respiratory Exam: Decreased Breath Sounds, NORMAL BREATHING PATTERN - Cardiovascular Exam Cardiovascular Exam: REGULAR RHYTHM, RRR - GI/Abdominal Exam GI & Abdominal Exam: Distended, Soft, Diminished Bowel Sounds - Extremities Exam Extremities Exam: Full ROM, Normal Inspection, Pedal Edema (3+) - Neurological Exam Neurological Exam: Alert, Awake, Oriented x3 - Psychiatric Exam Psychiatric exam: Normal Affect, Normal Mood - Skin Skin Exam: Dry, Intact Assessment and Plan (1) CKD stage 4 due to type 2 diabetes mellitus Status: Acute (2) Acute respiratory failure Status: Acute (3) CHF (congestive heart failure) Status: Acute (4) Diabetic nephropathy Status: Acute (5) Nephrotic syndrome Status: Acute (6) HTN (hypertension) Status: Chronic - Assessment and Plan (Free Text) Assessment: maintain diuretics, fluid restriction 21 g proteinuria, on low dose ARB will likely need HD in near future.
[2017-05-09 16:14] VITALS: RESP 20
--- NOTE | 2017-05-09 21:32 | CP.PCM.PN ---
Subjective - Date & Time of Evaluation Date of Evaluation: 05/09/17 Time of Evaluation: 21:31 - Subjective Subjective: Patient is morning having significant hypoxia. Room air oxygen saturation is only 70%. With walking patient is having tachycardia, and a mild dyspnea, but the patient is able to walk even without oxygen. He denies any chest pain. Last night patient had an episode of nonsustained V. tach. On examination: Vital signs are stable. Chest good air entry regular hospital, minimal expiratory wheezing and rales noted Bilateral pedal edema noted, leg edema noted. Patient's labs included Nonspecific. This repeat the labs tomorrow again. Assessment and recommendation: 46-year-old male admitted with uncontrolled diabetes. Nephrotic syndrome with a severe proteinuria Associated with the pedal edema, worsening fluid overload. Hypertension. Chronic lung disease, and associated with the hypoxia, using BiPAP and oxygen at home. Continue the current treatment. And will follow the patient. We'll continue the IV Lasix. Another 24 hours if the patient is improving can be discharged home. Objective - Vital Signs/Intake and Output Vital Signs (last 24 hours): Temp Pulse Resp BP Pulse Ox 97.9 F 93 H 20 132/72 95 05/09/17 15:25 05/09/17 15:25 05/09/17 15:25 05/09/17 17:41 05/09/17 15:25 Intake and Output: 05/09/17 05/10/17 18:59 06:59 Intake Total 300 Output Total 350 Balance 300 -350 - Medications Medications: Current Medications Acetaminophen (Tylenol 325mg Tab) 975 mg PO Q6 PRN PRN Reason: Pain, Mild (1-3) Last Admin: 05/09/17 20:39 Dose: 975 mg Albuterol Sulfate (Albuterol 0.083% Inhal Carly (2.5 Mg/3 Ml) Ud) 2.5 mg IH RQ2 PRN PRN Reason: Wheezing Albuterol/Ipratropium (Duoneb 3 Mg/0.5 Mg (3 Ml) Ud) 3 ml INH RQ6 [facility] Last Admin: 05/09/17 20:34 Dose: 3 ml Apixaban (Eliquis) 2.5 mg PO Q12 [facility] Last Admin: 05/09/17 10:31 Dose: 2.5 mg Aspirin (Aspirin Chewable) 81 mg PO DAILY [facility] Last Admin: 05/09/17 10:31 Dose: 81 mg Furosemide (Lasix) 40 mg IVP BID [facility] Last Admin: 05/09/17 17:41 Dose: 40 mg Insulin Human Isoph/Insulin Regular (Novolin 70/30 (70/30 Units/Ml) 10 Ml) 20 units SC BIDAC [facility] Last Admin: 05/09/17 17:41 Dose: 20 units Insulin Human Regular (Novolin R) 0 unit SC ACHS [facility] PRN Reason: Protocol Last Admin: 05/09/17 21:22 Dose: Not Given Losartan Potassium (Cozaar) 50 mg PO DAILY [facility] Last Admin: 05/09/17 10:31 Dose: 50 mg Metoprolol Tartrate (Lopressor) 12.5 mg PO BID [facility] Last Admin: 05/09/17 17:41 Dose: 12.5 mg Montelukast Sodium (Singulair) 10 mg PO HS [facility] Last Admin: 05/08/17 21:37 Dose: 10 mg Rosuvastatin Calcium (Crestor) 20 mg PO HS [facility] Last Admin: 05/08/17 21:37 Dose: 20 mg Fluticasone/Salmeterol (Advair Diskus 500/50) 1 puff INH RQ12 [facility] Last Admin: 05/09/17 20:36 Dose: 1 inhaler Tramadol HCl (Ultram) 25 mg PO TID PRN PRN Reason: Pain, moderate (4-7) Last Admin: 05/09/17 06:57 Dose: 25 mg - Labs Labs: 05/08/17 07:11 05/08/17 07:11 PT 15.1 SECONDS (9.7-12.2) H 05/05/17 17:08 INR 1.3 05/05/17 17:08 APTT 80 SECONDS (21-34) H 05/05/17 17:08
[2017-05-10] MEDS: Tramadol 25 mg PO PRN ×3 (02:06→17:09)
[2017-05-10] MEDS: Albuterol-Ipratrop 3 mg / 0.5 (3 ml) UD INH SCH ×4 (02:25→19:59)
--- NOTE | 2017-05-10 07:22 | CARD ---
APPROVED REPORT EXAM: Two-dimensional and M-mode echocardiogram with Doppler and color Doppler. Other Information Quality : GoodRhythm : INDICATION Dyspnea Congestive Heart Failure VERTIGO RISK FACTORS Hypertension Obesity Diabetes 2D DIMENSIONS IVSd1.1 (0.7-1.1cm)LVDd5.3 (3.9-5.9cm) PWd1.1 (0.7-1.1cm)LVDs3.6 (2.5-4.0cm) FS (%) 33.1 %LVEF (%)61.1 (>50%) M-Mode DIMENSIONS Left Atrium (MM)4.19 (2.5-4.0cm)IVSd1.26 (0.7-1.1cm) Aortic Root2.95 (2.2-3.7cm)LVDd5.35 (4.0-5.6cm) Aortic Cusp Exc.2.14 (1.5-2.0cm)PWd1.17 (0.7-1.1cm) FS (%) 33 %LVDs3.58 (2.0-3.8cm) LVEF (%)61 (>50%) Mitral Valve MV E Yakbksmg916.6cm/sMV A Mcghihdo32.1cm/sE/A ratio1.5 TDI E/Lateral E'0.0E/Medial E'0.0 Tricuspid Valve TR Peak [id number]/sTR Peak Gr.[id number] LEFT VENTRICLE The left ventricle is normal size. There is borderline concentric left ventricular hypertrophy. Left ventricle systolic function is normal. The Ejection Fraction is 60-65%. Poor quality. There is normal LV segmental wall motion. The left ventricular diastolic function is normal. There is no ventricular septal defect visualized. RIGHT VENTRICLE The right ventricle is normal size. The right ventricular systolic function is normal. ATRIA The left atrium is mildly dilated. The right atrium size is normal. AORTIC VALVE The aortic valve is not well visualized. The aortic valve is mildly sclerotic. The aortic valve is tri-cuspid. No aortic regurgitation is present. There is no aortic valvular stenosis. MITRAL VALVE The mitral valve is normal in structure. There is no evidence of mitral valve prolapse. There is no mitral valve regurgitation noted. TRICUSPID VALVE The tricuspid valve is normal in structure. There is mild tricuspid regurgitation. Right ventricular systolic pressure is estimated at 40-50 mmHg. There is moderate pulmonary hypertension. PULMONIC VALVE The pulmonic valve is not well visualized. There is no pulmonic valvular regurgitation. GREAT VESSELS The aortic root is normal in size. The ascending aorta is normal in size. The IVC is normal in size and collapses >50% with inspiration. PERICARDIAL EFFUSION There is no pericardial effusion. <Conclusion> Left ventricle systolic function is normal. The Ejection Fraction is 60-65%. The left ventricular diastolic function is normal. There is moderate pulmonary hypertension.
[2017-05-10] MEDS: (Novolin R) Insulin Human Regular 100 units/ml vial SC SCH ×4 (07:23→22:22)
[2017-05-10] MEDS: Fluticasone-Salmeterol 500-50mcg Diskus INH SCH ×2 (07:24→20:00)
[2017-05-10] MEDS: (Novolin 70/30) NPH/Regular 70/30 Units/ml 10 ml vial SC SCH ×2 (08:17→17:07)
--- NOTE | 2017-05-10 11:56 | CARD ---
APPROVED REPORT EKG Measurement Heart [id number] <Conclusion> Normal sinus rhythm Right bundle branch block Abnormal ECG
--- NOTE | 2017-05-10 13:44 | CP.PCM.PN ---
Subjective - Date & Time of Evaluation Date of Evaluation: 05/10/17 Time of Evaluation: 13:42 - Subjective Subjective: Remains on hi flow O2, feels better creat stable at 2.0 remains on IV lasix agree with plans outlined by PMD- pt needs adequate fluid removal due to severe proteinuria and recurrent CHF Objective - Vital Signs/Intake and Output Vital Signs (last 24 hours): Temp Pulse Resp BP Pulse Ox 97.9 F 96 H 20 134/75 96 05/10/17 07:05 05/10/17 12:00 05/10/17 07:05 05/10/17 09:25 05/10/17 07:05 Intake and Output: 05/10/17 05/10/17 06:59 18:59 Intake Total 240 Output Total 850 Balance -610 - Medications Medications: Current Medications Acetaminophen (Tylenol 325mg Tab) 975 mg PO Q6 PRN PRN Reason: Pain, Mild (1-3) Last Admin: 05/09/17 20:39 Dose: 975 mg Albuterol Sulfate (Albuterol 0.083% Inhal Carly (2.5 Mg/3 Ml) Ud) 2.5 mg IH RQ2 PRN PRN Reason: Wheezing Albuterol/Ipratropium (Duoneb 3 Mg/0.5 Mg (3 Ml) Ud) 3 ml INH RQ6 [facility] Last Admin: 05/10/17 13:34 Dose: 3 ml Apixaban (Eliquis) 2.5 mg PO Q12 [facility] Last Admin: 05/10/17 09:25 Dose: 2.5 mg Aspirin (Aspirin Chewable) 81 mg PO DAILY [facility] Last Admin: 05/10/17 09:24 Dose: 81 mg Furosemide (Lasix) 40 mg IVP BID [facility] Last Admin: 05/10/17 09:25 Dose: 40 mg Insulin Human Isoph/Insulin Regular (Novolin 70/30 (70/30 Units/Ml) 10 Ml) 20 units SC BIDAC [facility] Last Admin: 05/10/17 08:17 Dose: 20 units Insulin Human Regular (Novolin R) 0 unit SC ACHS [facility] PRN Reason: Protocol Last Admin: 05/10/17 12:13 Dose: 3 unit Losartan Potassium (Cozaar) 50 mg PO DAILY [facility] Last Admin: 05/10/17 09:25 Dose: 50 mg Metoprolol Tartrate (Lopressor) 12.5 mg PO BID [facility] Last Admin: 05/10/17 09:24 Dose: 12.5 mg Montelukast Sodium (Singulair) 10 mg PO [facility] Last Admin: 05/09/17 21:47 Dose: 10 mg Rosuvastatin Calcium (Crestor) 20 mg PO HS [facility] Last Admin: 05/09/17 21:47 Dose: 20 mg Fluticasone/Salmeterol (Advair Diskus 500/50) 1 puff INH RQ12 [facility] Last Admin: 05/10/17 07:24 Dose: 1 inhaler Tramadol HCl (Ultram) 25 mg PO TID PRN PRN Reason: Pain, moderate (4-7) Last Admin: 05/10/17 09:26 Dose: 25 mg - Labs Labs: 05/08/17 07:11 05/08/17 07:11 PT 15.1 SECONDS (9.7-12.2) H 05/05/17 17:08 INR 1.3 05/05/17 17:08 APTT 80 SECONDS (21-34) H 05/05/17 17:08 - Constitutional Appears: No Acute Distress, Chronically Ill - Head Exam Head Exam: ATRAUMATIC, NORMAL INSPECTION - Eye Exam Eye Exam: EOMI, Normal appearance - Neck Exam Neck Exam: Normal Inspection. absent: Tenderness - Respiratory Exam Respiratory Exam: Decreased Breath Sounds, Respiratory Distress - Cardiovascular Exam Cardiovascular Exam: REGULAR RHYTHM, +S1 - GI/Abdominal Exam GI & Abdominal Exam: Soft. absent: Tenderness - Extremities Exam Extremities Exam: Pedal Edema. absent: Tenderness - Neurological Exam Neurological Exam: Alert, CN II-XII Intact - Skin Skin Exam: Dry, Warm Assessment and Plan (1) Asthma Status: Acute (2) CHF (congestive heart failure) Status: Acute (3) CKD stage 3 due to type 2 diabetes mellitus Status: Acute (4) Coagulopathy Status: Acute (5) Nephrotic syndrome Status: Acute - Assessment and Plan (Free Text) Plan: continue lasix IV- eventually switch to oral as planned will follow CKD as outpt
--- NOTE | 2017-05-10 23:57 | CP.PCM.PN ---
Subjective - Date & Time of Evaluation Date of Evaluation: 05/10/17 Time of Evaluation: 23:56 - Subjective Subjective: Patient is comfortable now. Leg swelling still noted, but slightly better. Some weight loss noted. No chest pain. No palpitation noted. Vital signs reviewed No neck vein distention noted Bilateral rales noted CVS regular heart sound, no murmur noted Abdomen soft, nontender. Bilateral edema noted [employer]CR[employer]ER alert awake oriented -3, no functional neurological deficit Hypoxia still present. But able to tolerate On oxygen supplementation. Assessment and recommendation: 46-year-old male with history of diabetes, hypertension, hypercholesterolemia. Significant proteinuria. Nephrotic syndrome. Interstitial lung disease. Status post splenectomy. DVT, on anticoagulation. Continue the IV Lasix. Possible discharge plan in the morning, if clinically stable. Will follow-up the patient Objective - Vital Signs/Intake and Output Vital Signs (last 24 hours): Temp Pulse Resp BP Pulse Ox 98 F 108 H 20 144/83 94 L 05/10/17 15:45 05/10/17 23:41 05/10/17 15:45 05/10/17 17:06 05/10/17 15:45 Intake and Output: 05/10/17 05/11/17 18:59 06:59 Intake Total 400 Output Total 1100 1000 Balance -700 -1000 - Medications Medications: Current Medications Acetaminophen (Tylenol 325mg Tab) 975 mg PO Q6 PRN PRN Reason: Pain, Mild (1-3) Last Admin: 05/09/17 20:39 Dose: 975 mg Albuterol Sulfate (Albuterol 0.083% Inhal Carly (2.5 Mg/3 Ml) Ud) 2.5 mg IH RQ2 PRN PRN Reason: Wheezing Albuterol/Ipratropium (Duoneb 3 Mg/0.5 Mg (3 Ml) Ud) 3 ml INH RQ6 [facility] Last Admin: 05/10/17 19:59 Dose: 3 ml Apixaban (Eliquis) 2.5 mg PO Q12 [facility] Last Admin: 05/10/17 21:02 Dose: 2.5 mg Aspirin (Aspirin Chewable) 81 mg PO DAILY [facility] Last Admin: 05/10/17 09:24 Dose: 81 mg Furosemide (Lasix) 40 mg IVP BID [facility] Last Admin: 05/10/17 17:06 Dose: 40 mg Insulin Human Isoph/Insulin Regular (Novolin 70/30 (70/30 Units/Ml) 10 Ml) 20 units SC BIDAC [facility] Last Admin: 05/10/17 17:07 Dose: 20 units Insulin Human Regular (Novolin R) 0 unit SC ACHS [facility] PRN Reason: Protocol Last Admin: 05/10/17 22:22 Dose: Not Given Losartan Potassium (Cozaar) 50 mg PO DAILY [facility] Last Admin: 05/10/17 09:25 Dose: 50 mg Metoprolol Tartrate (Lopressor) 12.5 mg PO BID [facility] Last Admin: 05/10/17 17:06 Dose: 12.5 mg Montelukast Sodium (Singulair) 10 mg PO HS [facility] Last Admin: 05/10/17 21:02 Dose: 10 mg Rosuvastatin Calcium (Crestor) 20 mg PO HS [facility] Last Admin: 05/10/17 21:02 Dose: 20 mg Fluticasone/Salmeterol (Advair Diskus 500/50) 1 puff INH RQ12 [facility] Last Admin: 05/10/17 20:00 Dose: 1 inhaler Tramadol HCl (Ultram) 25 mg PO TID PRN PRN Reason: Pain, moderate (4-7) Last Admin: 05/10/17 17:09 Dose: 25 mg - Labs Labs: 05/08/17 07:11 05/08/17 07:11 PT 15.1 SECONDS (9.7-12.2) H 05/05/17 17:08 INR 1.3 05/05/17 17:08 APTT 80 SECONDS (21-34) H 05/05/17 17:08
[2017-05-11] MEDS: Albuterol-Ipratrop 3 mg / 0.5 (3 ml) UD INH SCH ×3 (01:11→13:21)
[2017-05-11] MEDS: Tramadol 25 mg PO PRN (05:28)
[2017-05-11] MEDS: (Novolin R) Insulin Human Regular 100 units/ml vial SC SCH ×2 (07:23→13:16)
[2017-05-11] MEDS: Fluticasone-Salmeterol 500-50mcg Diskus INH SCH (07:29)
[2017-05-11] MEDS: (Novolin 70/30) NPH/Regular 70/30 Units/ml 10 ml vial SC SCH (08:25)
[2017-05-11 09:26] VITALS: BP 149/83
[2017-05-11 09:27] VITALS: PULSE 98; TEMP 98.2; O2SAT 98
--- NOTE | 2017-05-11 10:28 | CP.PCM.PN ---
Subjective - Date & Time of Evaluation Date of Evaluation: 05/11/17 Time of Evaluation: 10:26 - Subjective Subjective: comfortable no new dyspnea no CPs, n, v, f, chills same edema Objective - Vital Signs/Intake and Output Vital Signs (last 24 hours): Temp Pulse Resp BP Pulse Ox 98.2 F 98 H 20 149/83 98 05/11/17 08:00 05/11/17 08:00 05/11/17 08:00 05/11/17 09:25 05/11/17 08:00 Intake and Output: 05/11/17 05/11/17 06:59 18:59 Intake Total 1000 Output Total 1600 Balance -600 - Medications Medications: Current Medications Acetaminophen (Tylenol 325mg Tab) 975 mg PO Q6 PRN PRN Reason: Pain, Mild (1-3) Last Admin: 05/09/17 20:39 Dose: 975 mg Albuterol Sulfate (Albuterol 0.083% Inhal Carly (2.5 Mg/3 Ml) Ud) 2.5 mg IH RQ2 PRN PRN Reason: Wheezing Albuterol/Ipratropium (Duoneb 3 Mg/0.5 Mg (3 Ml) Ud) 3 ml INH RQ6 [facility] Last Admin: 05/11/17 07:27 Dose: 3 ml Apixaban (Eliquis) 2.5 mg PO Q12 [facility] Last Admin: 05/11/17 09:25 Dose: 2.5 mg Aspirin (Aspirin Chewable) 81 mg PO DAILY [facility] Last Admin: 05/11/17 09:25 Dose: 81 mg Furosemide (Lasix) 40 mg IVP BID [facility] Last Admin: 05/11/17 09:25 Dose: 40 mg Insulin Human Isoph/Insulin Regular (Novolin 70/30 (70/30 Units/Ml) 10 Ml) 20 units SC BIDAC [facility] Last Admin: 05/11/17 08:25 Dose: 20 units Insulin Human Regular (Novolin R) 0 unit SC ACHS [facility] PRN Reason: Protocol Last Admin: 05/11/17 07:23 Dose: Not Given Losartan Potassium (Cozaar) 50 mg PO DAILY [facility] Last Admin: 05/11/17 09:25 Dose: 50 mg Metoprolol Tartrate (Lopressor) 12.5 mg PO BID [facility] Last Admin: 05/11/17 09:25 Dose: 12.5 mg Montelukast Sodium (Singulair) 10 mg PO HS [facility] Last Admin: 05/10/17 21:02 Dose: 10 mg Rosuvastatin Calcium (Crestor) 20 mg PO HS [facility] Last Admin: 05/10/17 21:02 Dose: 20 mg Fluticasone/Salmeterol (Advair Diskus 500/50) 1 puff INH RQ12 [facility] Last Admin: 05/11/17 07:29 Dose: 1 inhaler Tramadol HCl (Ultram) 25 mg PO TID PRN PRN Reason: Pain, moderate (4-7) Last Admin: 05/11/17 05:28 Dose: 25 mg - Labs Labs: 05/08/17 07:11 05/08/17 07:11 PT 15.1 SECONDS (9.7-12.2) H 05/05/17 17:08 INR 1.3 05/05/17 17:08 APTT 80 SECONDS (21-34) H 05/05/17 17:08 - Constitutional Appears: No Acute Distress, Chronically Ill - Head Exam Head Exam: ATRAUMATIC, NORMAL INSPECTION - Eye Exam Eye Exam: EOMI, Normal appearance - Neck Exam Neck Exam: Normal Inspection. absent: Tenderness - Respiratory Exam Respiratory Exam: Decreased Breath Sounds, NORMAL BREATHING PATTERN - Cardiovascular Exam Cardiovascular Exam: REGULAR RHYTHM, +S1 - GI/Abdominal Exam GI & Abdominal Exam: Soft. absent: Tenderness - Extremities Exam Extremities Exam: Pedal Edema. absent: Tenderness - Neurological Exam Neurological Exam: Awake, CN II-XII Intact - Skin Skin Exam: Dry, Warm Assessment and Plan (1) Asthma Status: Acute (2) CHF (congestive heart failure) Status: Acute (3) CKD stage 3 due to type 2 diabetes mellitus Status: Acute (4) Coagulopathy Status: Acute (5) Nephrotic syndrome Status: Acute - Assessment and Plan (Free Text) Plan: Would soon switch lasix to 80 mg bid
--- NOTE | 2017-05-11 13:02 | PCM.HF ---
Heart Failure Core Measure - Heart Failure Ejection Fraction: 40 % or Greater BREANA Inhibitor Prescribed: No Contraindication/Reason for not providing: on ARB Beta-Edenilson Prescribed: Metoprolol Succinate Angiotensin II Receptor Edenilson Prescribed: Yes AnticoagulationTherapy for Atrial Fibrillation/Atrialflutter: Yes Aldosterone Antagonist Prescribed: No Contraindication/Reason for not providing: ef>45 Hydralazine Nitrate Prescribed: Yes Implantable Cardioverter Defibrillator Therapy: No Contraindication/Reason for not providing: ef>45 Cardiac Resynchronization Therapy Prescribed: No Contraindication/Reason for not providing: ef>45 - Follow up Will be discharged to: Home Follow Up Date (must be within 7 days from discharge): 05/16/17 Follow Up Time: 09:00
--- NOTE | 2017-05-11 13:02 | CP.PCM.PN ---
Subjective - Date & Time of Evaluation Date of Evaluation: 05/11/17 Time of Evaluation: 11:30 - Subjective Subjective: Patient seen today , states sob improved , edema still present , denies any chest pain, head ache, dizziness, palpitations wants to go home No overnight events reported on monitor Objective - Vital Signs/Intake and Output Vital Signs (last 24 hours): Temp Pulse Resp BP Pulse Ox 98.2 F 98 H 20 149/83 98 05/11/17 08:00 05/11/17 08:00 05/11/17 08:00 05/11/17 09:25 05/11/17 08:00 Intake and Output: 05/11/17 05/11/17 06:59 18:59 Intake Total 1000 Output Total 1600 Balance -600 - Medications Medications: Current Medications Acetaminophen (Tylenol 325mg Tab) 975 mg PO Q6 PRN PRN Reason: Pain, Mild (1-3) Last Admin: 05/09/17 20:39 Dose: 975 mg Albuterol Sulfate (Albuterol 0.083% Inhal Carly (2.5 Mg/3 Ml) Ud) 2.5 mg IH RQ2 PRN PRN Reason: Wheezing Albuterol/Ipratropium (Duoneb 3 Mg/0.5 Mg (3 Ml) Ud) 3 ml INH RQ6 [facility] Last Admin: 05/11/17 07:27 Dose: 3 ml Apixaban (Eliquis) 2.5 mg PO Q12 [facility] Last Admin: 05/11/17 09:25 Dose: 2.5 mg Aspirin (Aspirin Chewable) 81 mg PO DAILY [facility] Last Admin: 05/11/17 09:25 Dose: 81 mg Furosemide (Lasix) 40 mg IVP BID [facility] Last Admin: 05/11/17 09:25 Dose: 40 mg Insulin Human Isoph/Insulin Regular (Novolin 70/30 (70/30 Units/Ml) 10 Ml) 20 units SC BIDAC [facility] Last Admin: 05/11/17 08:25 Dose: 20 units Insulin Human Regular (Novolin R) 0 unit SC ACHS [facility] PRN Reason: Protocol Last Admin: 05/11/17 07:23 Dose: Not Given Losartan Potassium (Cozaar) 50 mg PO DAILY [facility] Last Admin: 05/11/17 09:25 Dose: 50 mg Metoprolol Tartrate (Lopressor) 12.5 mg PO BID [facility] Last Admin: 05/11/17 09:25 Dose: 12.5 mg Montelukast Sodium (Singulair) 10 mg PO HS [facility] Last Admin: 05/10/17 21:02 Dose: 10 mg Rosuvastatin Calcium (Crestor) 20 mg PO HS [facility] Last Admin: 05/10/17 21:02 Dose: 20 mg Fluticasone/Salmeterol (Advair Diskus 500/50) 1 puff INH RQ12 [facility] Last Admin: 05/11/17 07:29 Dose: 1 inhaler Tramadol HCl (Ultram) 25 mg PO TID PRN PRN Reason: Pain, moderate (4-7) Last Admin: 05/11/17 05:28 Dose: 25 mg - Labs Labs: 05/08/17 07:11 05/08/17 07:11 PT 15.1 SECONDS (9.7-12.2) H 05/05/17 17:08 INR 1.3 05/05/17 17:08 APTT 80 SECONDS (21-34) H 05/05/17 17:08 Assessment and Plan - Assessment and Plan (Free Text) Assessment: A/P CHF, COPD, ( on home o2) Diabetes, Deep Vein Thrombosis HTN, Hyperlipidemia, ckd , admitted with incr. sob and leg edema patient clinically improved with IV lasix D/w Dr. Long , stable for discharge home today and f/u with Dr. Long office next week Discharge plan discussed with patient, who understands and agrees with plan
[2017-05-11 13:05] LABS: BASO # 0.1 K/uL (0.0-0.2); EOS # 0.7 K/uL (0.0-0.7); EOS % 6.8 % (0.0-4.0); HEMOGLOBIN 13.7 g/dL (12.0-18.0); LYMPH # 1.9 K/uL (1.0-4.3); MEAN CELL VOLUME 79.6 fL (80.0-94.0); MEAN CORPUSCULAR HEMOGLOBIN 25.4 pg (27.0-31.0); MEAN CORPUSCULAR HGB CONC 31.9 g/dL (33.0-37.0); MEAN PLATELET VOLUME 10.4 fL (7.2-11.7); MONO # 1.1 K/uL (0.0-0.8); MONO % 10.2 % (0.0-10.0); NEUT # 7.1 K/uL (1.8-7.0); NRBC % 0.1 % (0.0-2.0); RBC 5.4 Mil/uL (4.40-5.90); RED CELL DISTRIBUTION WIDTH 19.9 % (11.5-14.5); WHITE BLOOD COUNT 10.9 K/uL (4.8-10.8)
[2017-05-11 13:22] LABS: CALCIUM 8.3 mg/dl (8.6-10.4)
[2017-05-11 14:52] LABS: ANCA SCREEN NEGATIVE (NEGATIVE)
--- NOTE | 2017-05-11 21:40 | CP.PCM.DIS ---
Provider - Provider Date of Admission: 05/05/17 17:50 Attending physician: Dae Long MD Time Spent in preparation of Discharge (in minutes): 45 Hospital Course - Lab Results Lab Results: Most Recent Lab Values WBC 10.9 K/uL (4.8-10.8) H 05/11/17 13:01 RBC 5.40 Mil/uL (4.40-5.90) 05/11/17 13:01 Hgb 13.7 g/dL (12.0-18.0) 05/11/17 13:01 Hct 42.9 % (35.0-51.0) 05/11/17 13:01 MCV 79.6 fL (80.0-94.0) L 05/11/17 13:01 MCH 25.4 pg (27.0-31.0) L 05/11/17 13:01 MCHC 31.9 g/dL (33.0-37.0) L 05/11/17 13:01 RDW 19.9 % (11.5-14.5) H 05/11/17 13:01 Plt Count 226 K/uL (130-400) 05/11/17 13:01 MPV 10.4 fL (7.2-11.7) 05/11/17 13:01 Neut % (Auto) 65.0 % (50.0-75.0) 05/11/17 13:01 Lymph % (Auto) 17.0 % (20.0-40.0) L 05/11/17 13:01 Esmeralda % (Auto) 10.2 % (0.0-10.0) H 05/11/17 13:01 Eos % (Auto) 6.8 % (0.0-4.0) H 05/11/17 13:01 Baso % (Auto) 1.0 % (0.0-2.0) 05/11/17 13:01 Neut # (Auto) 7.1 K/uL (1.8-7.0) H 05/11/17 13:01 Lymph # (Auto) 1.9 K/uL (1.0-4.3) 05/11/17 13:01 Esmeralda # (Auto) 1.1 K/uL (0.0-0.8) H 05/11/17 13:01 Eos # (Auto) 0.7 K/uL (0.0-0.7) 05/11/17 13:01 Baso # (Auto) 0.1 K/uL (0.0-0.2) 05/11/17 13:01 ESR 56 mm/hr (0-15) H 05/08/17 07:11 PT 15.1 SECONDS (9.7-12.2) H 05/05/17 17:08 INR 1.3 05/05/17 17:08 APTT 80 SECONDS (21-34) H 05/05/17 17:08 Sodium 133 mmol/L (132-148) 05/11/17 13:01 Potassium 4.3 mmol/L (3.6-5.2) 05/11/17 13:01 Chloride 91 mmol/L (98-107) L 05/11/17 13:01 Carbon Dioxide 37 mmol/L (22-30) H 05/11/17 13:01 Anion Gap 9 (10-20) L 05/11/17 13:01 BUN 38 mg/dL (9-20) H 05/11/17 13:01 Creatinine 1.8 mg/dL (0.8-1.5) H 05/11/17 13:01 Est GFR ( Amer) 49 05/11/17 13:01 Est GFR (Non-Af Amer) 41 05/11/17 13:01 POC Glucose (mg/dL) 193 mg/dL (65-110) H 05/11/17 12:27 Random Glucose 198 mg/dL (75-110) H 05/11/17 13:01 Calcium 8.3 mg/dl (8.6-10.4) L 05/11/17 13:01 Total Bilirubin 0.7 mg/dL (0.2-1.3) 05/08/17 07:11 AST 26 U/L (17-59) 05/08/17 07:11 ALT 22 U/L (21-72) 05/08/17 07:11 Alkaline Phosphatase 163 U/L (38-126) H 05/08/17 07:11 Total Creatine Kinase 239 U/L (55-170) H 05/05/17 16:35 CK-MB (Mass) 5.86 ng/mL (0.0-3.38) H 05/05/17 16:35 Troponin I 0.0260 ng/mL (0.00-0.120) 05/05/17 16:35 NT-Pro-B Natriuret Pep 1880 pg/mL (0-450) H 05/05/17 16:35 Total Protein 6.1 g/dL (6.3-8.3) L 05/08/17 07:11 Albumin 2.9 g/dL (3.5-5.0) L 05/08/17 07:11 Globulin 3.3 gm/dL (2.2-3.9) 05/08/17 07:11 Albumin/Globulin Ratio 0.9 (1.0-2.1) L 05/08/17 07:11 Triglycerides 119 mg/dL (0-149) 05/06/17 07:02 Cholesterol 134 mg/dL (0-199) 05/06/17 07:02 LDL Cholesterol Direct 48 mg/dL (0-129) 05/06/17 07:02 HDL Cholesterol 49 mg/dL (30-70) 05/06/17 07:02 Procalcitonin 0.12 NG/ML (0.19-0.49) L 05/08/17 07:11 Urine Collection Time 24 HRS 05/07/17 13:00 Urine Total Volume 3900 mL 05/07/17 13:00 Ur Protein 24 Hr Calc 12841.0 mg/24hr (42-225) H 05/07/17 13:00 Rheumatoid Factor IgG <5 U (<=6) 05/06/17 07:02 Rheumatoid Factor IgA <5 U (<=6) 05/06/17 07:02 Rheumatoid Factor IgM <5 U (<=6) 05/06/17 07:02 NINI 6 Profile Positive (NEGATIVE) H 05/06/17 07:02 NINI Titer 1:40 H 05/06/17 07:02 NINI Pattern Homogenous H 05/06/17 07:02 ANCA Screen Negative (NEGATIVE) 05/08/17 07:11 c-ANCA Titer TNP 05/08/17 07:11 Proteinase 3 (PR3) <1.0 AI (<1.0) 05/08/17 07:11 p-ANCA Titer TNP 05/08/17 07:11 Atypical p-ANCA Titer TNP 05/08/17 07:11 Myeloperoxidase Ab <1.0 AI (<1.0) 05/08/17 07:11 Hepatitis A IgM Ab Negative (NEGATIVE) 05/06/17 07:02 Hep Bs Antigen Negative (NEGATIVE) 05/06/17 07:02 Hep B Core IgM Ab Negative (NEGATIVE) 05/06/17 07:02 Hepatitis C Antibody Negative (NEGATIVE) 05/06/17 07:02 - Hospital Course Hospital Course: CC: Leg swelling, abdominal swelling History of present illness: 46-year-old male with a history of COPD, bronchial asthma, diabetes, hypertension, DVT on anticoagulation, history of chronic liver disease, renal insufficiency, nephrotic syndrome, severe hypoxia, interstitial lung changes and disease, on oxygen and BiPAP. Patient was compensating so far, recently he started gaining weight, associated increasing leg swelling and abdominal swelling. There is also having some shortness of breath associated with cough. He did not have any fever. Denies any chest pain. Patient is currently taking his medication, but in spite of that he started having increasing leg swelling. He does not have any problem in making urine, but some reduction of the urine output recently noted. blood sugar uncontrolled Past medical history: COPD, bronchial asthma, interstitial lung disease. Hypertension, DVT. Currently on anti-coagulation. Renal insufficiency, secondary to nephrotic syndrome. Hypoxia, interstitial lung disease, obstructive sleep apnea on BiPAP. Surgical history: Splenectomy. Family history diabetes noted. Social history: Ex-smoker, no drug abuse Review of systems: Denies any headache. Complaining of minimal cough. Shortness of breath noted. Increasing abdominal swelling noted. Leg edema present. Vital signs reviewed No neck vein distention noted Patient has a bilateral wheezing in the lower lung capps. CVS regular heart sound, no murmur noted Abdomen soft, nontender. Patient is a bilateral significant pedal edema [employer] LINGUIST alert awake oriented -3, no functional neurological deficit Patient's labs are noted. Elevated blood bleed noted. Elevated creatinine level noted. Chest x-ray showing bilateral diffuse infiltrative changes, CHF pattern noted. Assessment and recommendation: 46-year-old male with a history of COPD, bronchial asthma, interstitial lung disease, hypertension, DVT, on anticoagulation. The renal insufficiency, nephrotic syndrome. Status post splenectomy. Objective sleep apnea. Patient admitted now with the possibility of fluid overload, and CHF exacerbation. Renal insufficiency stable. We'll start the patient on intravenous Lasix. BiPAP. Oxygen supplementation. Bronchodilators. We'll follow the patient nephro consult Course in the hospital: The patient was admitted with the BiPAP. Patient is having increasing shortness of breath. After BiPAP patient was feeling somewhat better. Intravenous Lasix started. Patient underwent extensive workup. CAT scan of the chest showing evidence of diffuse interstitial lung disease, slight improvement compared to the old CAT scan. Sonogram of the abdomen showing evidence of fatty liver, gallstones, but no acute problems. Echocardiogram showing normal left ventricular function. Ejection fraction 65%. Moderate pulmonary hypertension, and associated cor pulmonale likely. Patient also has a significant proteinuria. Nephrotic syndrome, likely secondary to diabetes. Renal insufficiency. Patient is at high risk for hemodialysis. Nephrology evaluation was called. Intravenous Lasix, patient slowly improved. Patient will need continuous oxygen, and BiPAP. Educated about that. Glucose control. Patient will be discharged home. He will follow-up as an outpatient. Final diagnosis fluid overload, secondary to possible acute worsening renal insufficiency. Nephrotic syndrome. Lung fibrosis. Chronic lung disease, and associated with this hypoxia on oxygen. Patient has a history of DVT, on anticoagulation, status post a splenectomy in the past. Discharge Exam - Head Exam Head Exam: ATRAUMATIC, NORMAL INSPECTION Discharge Plan - Follow Up Plan Condition: GOOD Disposition: HOME/ ROUTINE Instructions: Type 2 Diabetes, Hyperglycemia, Adult, Heart Healthy Diet, Heart Failure, Adult (DC), Carbohydrate Counting Diet, Shortness of Breath (Dyspnea) ( DC), Hyperglycemia, Adult (DC), Acute Kidney Failure (DC), Foot Care for Diabetics Additional Instructions: Please f/u with Dr. Long office next week Resume all home medications Referrals: Dae Long MD [Staff Provider] -
== END 2017-05-11 14:04 | disposition home or self-care (01) | DRG 544 ==
LOC: C.ER 14:03 → C.9E 17:50 → C.6T 18:54
PROVIDERS: ADMIT Internal Medicine; ATTEND Internal Medicine
PROC: 5A09557 Assistance with Respiratory Ventilation, Greater than 96 Consecutive Hours, Continuous Positive Airway Pressure (ICD-10-PCS; principal; 2017-05-05)
DX: I13.0 Hypertensive heart and chronic kidney disease with heart failure and stage 1 through stage 4 chronic kidney disease, or unspecified chronic kidney disease (principal); J96.00 Acute respiratory failure, unspecified whether with hypoxia or hypercapnia; E87.5 Hyperkalemia; N18.4 Chronic kidney disease, stage 4 (severe); I50.9 Heart failure, unspecified; J44.9 Chronic obstructive pulmonary disease, unspecified; E11.22 Type 2 diabetes mellitus with diabetic chronic kidney disease; E11.21 Type 2 diabetes mellitus with diabetic nephropathy; J84.10 Pulmonary fibrosis, unspecified; E78.5 Hyperlipidemia, unspecified; Z23 Encounter for immunization; Z86.718 Personal history of other venous thrombosis and embolism; Z87.891 Personal history of nicotine dependence; G47.33 Obstructive sleep apnea (adult) (pediatric); Z68.42 Body mass index [BMI] 45.0-49.9, adult; E66.9 Obesity, unspecified

== ENCOUNTER 2017-06-24 13:12 | Inpatient (IN) | payer MEDICAID ==
[2017-06-24 13:12] VITALS: BMI 47.0
[2017-06-24] MEDS ORDERED: Albuterol-Ipratrop 3 mg / 0.5 (3 ml) UD ONE ×2 (13:28→13:46)
[2017-06-24] MEDS: Albuterol-Ipratrop 3 mg / 0.5 (3 ml) UD IH SCH ×3 (13:45→14:20)
[2017-06-24 13:48] LABS: VENOUS BLOOD GAS BASE EXCESS 4.3 mmol/L (0.0-2.0); VENOUS BLOOD GAS PCO2 78 mmHg (40-60); VENOUS BLOOD GAS PO2 43 mm/Hg (30-55); VENOUS BLOOD PH 7.25 (7.32-7.43)
[2017-06-24 13:56] LABS: BASO # 0.2 K/uL (0.0-0.2); BASO % 0.8 % (0.0-2.0); EOS % 5.4 % (0.0-4.0); HEMOGLOBIN 12.8 g/dL (12.0-18.0); LYMPH # 2.2 K/uL (1.0-4.3); LYMPH % 11.8 % (20.0-40.0); MEAN CORPUSCULAR HEMOGLOBIN 25.8 pg (27.0-31.0); MEAN CORPUSCULAR HGB CONC 31.6 g/dL (33.0-37.0); MEAN PLATELET VOLUME 11.1 fL (7.2-11.7); MONO # 1.7 K/uL (0.0-0.8); MONO % 8.8 % (0.0-10.0); NEUT # 13.9 K/uL (1.8-7.0); NEUT % 73.2 % (50.0-75.0); NRBC % 0.1 % (0.0-2.0); RBC 4.97 Mil/uL (4.40-5.90); RED CELL DISTRIBUTION WIDTH 21.4 % (11.5-14.5)
[2017-06-24 13:57] LABS: MEAN CELL VOLUME 81.7 fL (80.0-94.0)
[2017-06-24 14:03] LABS: ALB/GLOB RATIO 0.8 (1.0-2.1); ALBUMIN 3.2 g/dL (3.5-5.0); CALCIUM 8.2 mg/dl (8.6-10.4)
[2017-06-24 14:06] LABS: INR 1.3; PROTHROMBIN TIME 14.5 SECONDS (9.7-12.2)
[2017-06-24 14:15] LABS: TROPONIN I 0.014 ng/mL (0.00-0.120)
[2017-06-24 14:56] LABS: ARTERIAL BLOOD GAS HCO3 26.6 mmol/L (21-28); ARTERIAL BLOOD GAS HEMOGLOBIN 12.7 g/dL (11.7-17.4); ARTERIAL BLOOD GAS O2 SAT 97.8 % (95-98); ARTERIAL BLOOD GAS PCO2 74 mm/Hg (35-45); ARTERIAL BLOOD GAS PH 7.24 (7.35-7.45); ARTERIAL BLOOD GAS PO2 92 mm/Hg (80-100)
[2017-06-24] MEDS ORDERED: cefTRIAXone IV 1 gm in Dextros 50 ML IVPB STA (15:29)
[2017-06-24] MEDS ORDERED: Azithromycin 500 MG in Sodium Chloride 0.9% 250 ML IVPB STA (15:30)
--- NOTE | 2017-06-24 15:36 | RAD ---
Chest x-ray single frontal view History: Shortness of breath. Comparison: 05/05/2017 Findings: Moderate to severe venous congestion with diffuse increased interstitial lung markings bilaterally. Prominent patchy bibasilar airspace opacities. Cardiomegaly with enlarged ectatic aorta. Degenerative changes in the spine and shoulders. Impression: Moderate to severe venous congestion with diffuse increased interstitial lung markings bilaterally. Prominent patchy bibasilar airspace opacities. Cardiomegaly with enlarged ectatic aorta.
--- NOTE | 2017-06-24 15:41 | C.PDOC ---
Time Seen by Provider: 06/24/17 13:23 Chief Complaint (Nursing): Shortness Of Breath History Per: Patient, Family Onset/Duration Of Symptoms: Days (1) Current Symptoms Are (Timing): Worse Initiating Event: Upper Respiratory Illness Quality: Tightness Exacerbating Factor(s): Coughing Current Respiratory Medications: See Home Med List Severity: Severe Associated Symptoms: Productive Cough Additional History Per: Prior Records Past Medical History Reviewed: Historical Data, Nursing Documentation, Vital Signs Vital Signs: Last Vital Signs Temp 98.2 F 06/24/17 13:23 Pulse 105 H 06/24/17 15:07 Resp 16 06/24/17 15:07 BP 128/71 06/24/17 15:07 Pulse Ox 93 L 06/24/17 15:07 - Medical History PMH: Arthritis, Asthma, CHF, COPD, Diabetes, Deep Vein Thrombosis (Right leg. IVC Filter inserted.), HTN, Hyperlipidemia, Pneumonia, Chronic Kidney Disease - [facility] Procedures ASSISTANCE WITH RESPIRATORY VENTILATION, 24-96 HRS, CPAP (10/14/16) ASSISTANCE WITH RESPIRATORY VENTILATION, <24 HRS, CPAP (11/09/16) ASSISTANCE WITH RESPIRATORY VENTILATION, >96 HRS, CPAP (05/05/17) DRAINAGE OF SPINAL CANAL, PERCUTANEOUS APPROACH, DIAGNOSTIC (05/03/15) EXTIRPATION OF MATTER FROM R COM ILIAC VEIN, PERC APPROACH (05/25/16) FLUOROSCOPY OF LEFT HEART USING LOW OSMOLAR CONTRAST (01/14/17) FLUOROSCOPY OF MULT COR ART USING L OSM CONTRAST (01/14/17) INSERT INFUSION DEV IN R INT JUGULAR VEIN, PERC (05/25/16) INSERTION OF ENDOTRACHEAL AIRWAY INTO TRACHEA, VIA OPENING (05/25/16) INSERTION OF INFUSION DEV INTO R FEMOR VEIN, PERC APPROACH (01/25/16) INSERTION OF INFUSION DEV INTO SUP VENA CAVA, PERC APPROACH (05/25/16) INSERTION OF INTRALUM DEV INTO INF VENA CAVA, PERC APPROACH (05/25/16) MEASURE OF CARDIAC SAMPL & PRESSURE, L HEART, PERC APPROACH (01/14/17) PERFORMANCE OF URINARY FILTRATION, MULTIPLE (05/25/16) RESPIRATORY VENTILATION, GREATER THAN 96 CONSECUTIVE HOURS (05/25/16) 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 Constitutional: Negative for: Weakness ENT: Positive for: Nose Congestion, Throat Pain Cardiovascular: Positive for: Chest Pain (tightness) Respiratory: Positive for: Cough, Shortness of Breath. Negative for: Hemoptysis Gastrointestinal: Negative for: Vomiting, Abdominal Pain Musculoskeletal: Negative for: Neck Pain Skin: Negative for: Rash Neurological: Negative for: Weakness, Numbness Physical Exam - Physical Exam Appears: In Acute Distress, Chronically Ill Skin: Normal Color, Warm, Dry, No Rash Head: Atraumatic, Normacephalic Eye(s): bilateral: PERRL, EOMI Neck: Normal ROM, Supple Cardiovascular: Rhythm Regular Respiratory: Wheezing Gastrointestinal/Abdominal: Soft, No Tenderness Extremity: Normal ROM, Pedal Edema Neurological/Psych: Oriented x3, Normal Motor, Normal Sensation ED Course And Treatment - Laboratory Results Result Diagrams: 06/24/17 13:30 06/24/17 13:30 Lab Interpretation: Abnormal Interpretation Of Abnormal: Leukocytosis. Elevated BUN/Cr. Elevated BNP. Elevated pCO2. ECG: Interpreted By Me, Viewed By Me ECG Rhythm: Sinus Tachycardia, R BBB, PVC, Nonspecific Changes ECG Interpretation: Abnormal Rate From EC O2 Sat by Pulse Oximetry: 84 (On NC O2) Pulse Ox Interpretation: Abnormal Interpretation Of Abnormal: Hypoxia - Radiology CXR: Viewed By Me, Read By Radiologist CXR Interpretation: Yes: Infiltrates (interstitial), Cardiomegaly Progress Note: Pt was placed on BiPAP with some improvement. Progress - Interventions Interventions:: Observation, Oxygen - Medications Administered Inhaled nebulized: Anticholinergic, Beta-2 agonist Intravenous: Corticosteroid - Data Reviewed Data Reviewed: Lab, Diagnostic imaging, EKG, Old records - Patient Status Patient status: Partially improved - Critical Care Citical Care: Excluding Proc Time Critical Care Time: 60 minutes - Continuity of Care Discussed patient case with:: Patient, Family-HIPPA compliant, ED Nurse, PMD - Patient Plan Patient Plan: Admission, Telemetry Disposition Discussed With : Dae Long Comment: He accepted pt on his service. He requested pt receive Lasix, Rocephin and Zithromax. Doctor Will See Patient In The: Hospital Counseled Patient/Family Regarding: Studies Performed, Diagnosis - Disposition Disposition: HOSPITALIZED Disposition Time: 15:44 Condition: SERIOUS - Clinical Impression Clinical Impression: Interstitial lung disease, Respiratory tract infection, COPD exacerbation, CO2 retention, Hypoxia, Renal insufficiency
[2017-06-24] MEDS ORDERED: cefTRIAXone IV 1 gm in Dextros 50 ML IVPB ONE (15:47)
[2017-06-24] MEDS ORDERED: Azithromycin 500mg/250ML NS 500 MG/250 ML BAG IVPB ONE (16:17)
--- NOTE | 2017-06-24 16:53 | CP.PCM.HP ---
History of Present Illness - History of Present Illness History of Present Illness: Chief complaint: Shortness of breath History present illness: 46-year-old male with history of COPD, bronchial asthma, diabetes, hypertension , DVT on anticoagulation History of liver cirrhosis, renal insufficiency, nephrotic range of proteinuria , history of a splenectomy. Patient at home using BiPAP, oxygen, nebulizers. Patient is having some symptoms of soreness of throat, cough for 10 days' duration. Recently getting worse. He started having increasing cough, shortness of breath, not able to walk and increasing leg swelling since it 2 days. He is also having cough mostly dry, some mucus noted. He did not have any fever, no chills noted, no recent sick exposure. Headache on and off noted. Patient is compliant with his medications, he is also taking Eliquis on a daily basis as patient climbs. He has significant weight gain recently. In the emergency room patient was placed on oxygen, but he was found hypoxic, placed on BiPAP and he was given nebulizer, Solu-Medrol now he is feeling slightly better. Past medical history: History of COPD, bronchial asthma in the past, hypertension, diabetes, deep venous thrombosis, history of chronic liver disease, renal insufficiency, nephrotic range of proteinuria, history of splenectomy. Interstitial lung disease, history of hematuria. Also patient received hemodialysis in the past. Surgical history splenectomy Family history diabetes. Social history: 3 years ago used to be a smoker heavy. No known drug allergy Review of system: Currently having no headache, Having increasing shortness of breath noted. Cough occasionally noted. Wheezing present occasionally. Patient is in a brace at home, oxygen at,, BiPAP Currently having no chest pain. Minimal discomfort in the right upper shoulder region noted Exertional dyspnea noted. Leg swelling present Vital signs reviewed, hypoxia noted Minimal neck venous distention noted Chest good air entry bilaterally, bilateral diffuse wheezing noted crackles present especially in the lower lung capps. CVS regular heart sound, no murmur noted Abdomen soft, nontender. 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 Elevated WBC noted Patient is having increasing proBNP level, creatinine level is stable. Currently on BiPAP, oxygen saturation is 92%. 40% FiO2 Assessment : 45-year-old male with multiple medical history including COPD, asthma, diabetes , hypertension, DVT history of AR in the past and liver cirrhosis and. Patient possibly has obstructive sleep apnea renal insufficiency, History of splenectomy, history of dialysis in the past. On anticoagulations Interstitial lung disease. Patient now admitted to the emergency room with worsening pulmonary edema underlying pneumonia cannot be ruled out, worsening proteinuria with fluid overload status. Chronic respiratory failure with CO2 retention possibly type II. Plan: We will continue the BiPAP, maintaining the oxygen saturation more than 92%. Bronchodilators. Intravenous corticosteroid, will monitor the blood glucose Will continue the anticoagulation. Procalcitonin level, for possible evaluation of pneumonia, empirical antibiotic including Zosyn and Zithromax. Cardiac monitoring. Nephrology evaluation. Repeat blood gas analysis. GI prophylaxis. Discussed with the patient's , patient's mother in the emergency room. We will follow the patient Present on Admission - Present on Admission Any Indicators Present on Admission: No History of DVT/PE: No History of Uncontrolled Diabetes: No Urinary Catheter: No Decubitus Ulcer Present: No Past Patient History - Infectious Disease Hx of Infectious Diseases: None - Past Medical History & Family History Past Medical History?: Yes - Past Social History Smoking Status: Former Smoker - CARDIAC Hx Congestive Heart Failure: Yes Hx Hypertension: Yes - PULMONARY Hx Asthma: Yes Hx Chronic Obstructive Pulmonary Disease (COPD): Yes Hx Pneumonia: Yes - NEUROLOGICAL Hx Neurological Disorder: Yes - HEENT Hx HEENT Problems: No - RENAL Hx Chronic Kidney Disease: Yes - ENDOCRINE/METABOLIC Hx Diabetes Mellitus Type 2: Yes - HEMATOLOGICAL/ONCOLOGICAL Hx Blood Disorders: Yes Other/Comment: Right LE DVT - INTEGUMENTARY Hx Dermatological Problems: Yes Hx Cellulitis: Yes - MUSCULOSKELETAL/RHEUMATOLOGICAL Hx Arthritis: Yes - GASTROINTESTINAL Hx Gastrointestinal Disorders: No - GENITOURINARY/GYNECOLOGICAL Hx Genitourinary Disorders: No - PSYCHIATRIC Hx Substance Use: No - SURGICAL HISTORY Hx Surgeries: Yes Hx Splenectomy: Yes Other/Comment: IVC Filter placement - ANESTHESIA Hx Anesthesia: Yes Hx Anesthesia Reactions: No Hx Malignant Hyperthermia: No Meds Allergies/Adverse Reactions: Allergies Allergy/AdvReac Type Severity Reaction Status Date / Time EGG Allergy Intermediate RASH Verified 05/05/17 14:28 Results - Vital Signs Recent Vital Signs: Last Vital Signs Temp 98.2 F 06/24/17 13:23 Pulse 104 H 06/24/17 16:18 Resp 22 06/24/17 16:18 BP 141/75 04/07/18 16:18 Pulse Ox 96 06/24/17 16:18 - Labs Result Diagrams: 06/24/17 13:30 06/24/17 13:30 Labs: Laboratory Results - last 24 hr 06/24/17 06/24/17 06/24/17 13:30 13:30 13:30 WBC 19.0 H D RBC 4.97 Hgb 12.8 Hct 40.6 MCV 81.7 D MCH 25.8 L MCHC 31.6 L RDW 21.4 H Plt Count 189 MPV 11.1 Neut % (Auto) 73.2 Lymph % (Auto) 11.8 L [place] % (Auto) 8.8 Eos % (Auto) 5.4 H Baso % (Auto) 0.8 Neut # (Auto) 13.9 H Lymph # (Auto) 2.2 [place] # (Auto) 1.7 H Eos # (Auto) 1.0 H Baso # (Auto) 0.2 PT 14.5 H INR 1.3 APTT 67 H Puncture Site pCO2 pO2 HCO3 ABG pH ABG Total CO2 ABG O2 Saturation ABG Base Excess ABG Hemoglobin ABG Carboxyhemoglobin POC ABG HHb (Measured) ABG Methemoglobin Philippe Test VBG pH VBG pCO2 VBG HCO3 VBG Total CO2 VBG O2 Sat (Calc) VBG Base Excess VBG Potassium A-a O2 Difference Respiratory Index Hgb O2 Saturation Glucose Lactate Vent Mode FiO2 Inspiratory BiPAP Expiratory BiPAP Crit Value Called To Crit Value Called By Crit Value Read Back Blood Gas Notified Time Sodium 141 Potassium 5.2 Chloride 100 Carbon Dioxide 34 H Anion Gap 12 BUN 42 H Creatinine 1.8 H Est GFR ( Amer) 49 Est GFR (Non-Af Amer) 41 Random Glucose 177 H Calcium 8.2 L Magnesium 1.8 Total Bilirubin 0.9 AST 35 ALT 32 Alkaline Phosphatase 189 H Troponin I 0.0140 NT-Pro-B Natriuret Pep 1010 H Total Protein 7.3 Albumin 3.2 L Globulin 4.1 H Albumin/Globulin Ratio 0.8 L Venous Blood Potassium Influenza Typ A,B (EIA) 06/24/17 06/24/17 06/24/17 13:31 13:43 14:51 WBC RBC Hgb Hct MCV MCH MCHC RDW Plt Count MPV Neut % (Auto) Lymph % (Auto) [place] % (Auto) Eos % (Auto) Baso % (Auto) Neut # (Auto) Lymph # (Auto) [place] # (Auto) Eos # (Auto) Baso # (Auto) PT INR APTT Puncture Site Rb pCO2 74 H* pO2 43 92 HCO3 26.6 ABG pH 7.24 L ABG Total CO2 34.0 H ABG O2 Saturation 97.8 ABG Base Excess 2.3 ABG Hemoglobin 12.7 ABG Carboxyhemoglobin 2.8 H POC ABG HHb (Measured) 2.1 ABG Methemoglobin 1.3 Philippe Test Na VBG pH 7.25 L VBG pCO2 78 H* VBG HCO3 27.5 VBG Total CO2 36.6 H VBG O2 Sat (Calc) 81.9 H VBG Base Excess 4.3 H VBG Potassium 5.0 A-a O2 Difference 101.0 Respiratory Index 1.1 Hgb O2 Saturation 93.8 L Glucose 187 H Lactate 1.2 Vent Mode Bipap FiO2 40.0 Inspiratory BiPAP 12 Expiratory BiPAP 6 Crit Value Called To Dr denita saavedra Crit Value Called By Piedad gautam prepress technician Piedad gautam prepress technician Crit Value Read Back Y Y Blood Gas Notified Time 1350 1457 Sodium 140.0 Potassium Chloride 104.0 Carbon Dioxide Anion Gap BUN Creatinine Est GFR ( Amer) Est GFR (Non-Af Amer) Random Glucose Calcium Magnesium Total Bilirubin AST ALT Alkaline Phosphatase Troponin I NT-Pro-B Natriuret Pep Total Protein Albumin Globulin Albumin/Globulin Ratio Venous Blood Potassium 5.0 Influenza Typ A,B (EIA) Negative for flu a/b
[2017-06-24] MEDS: Albuterol-Ipratrop 3 mg / 0.5 (3 ml) UD INH PRN (19:35)
[2017-06-24] MEDS: MethylPREDNISolone 40 mg Vial IVP SCH (21:53)
[2017-06-24] MEDS: Piperacill/Tazo 3.375gm in Dex 3.375 GM/50 ML BAG IVPB SCH (22:17)
[2017-06-25] MEDS ORDERED: guaiFENesin DM 200 mg-20 mg/10 ml UD PO STA (00:53)
[2017-06-25] MEDS: (Novolin 70/30) NPH/Regular 70/30 Units/ml 10 ml vial SC SCH ×2 (07:50→17:26)
[2017-06-25] MEDS: (Novolog) Insulin Aspart, Recombinant 100 u/ml 10 ml vial SC SCH ×3 (07:50→17:26)
[2017-06-25 08:07] LABS: BASO % 0.2 % (0.0-2.0); HEMOGLOBIN 13.1 g/dL (12.0-18.0); LYMPH # 1.1 K/uL (1.0-4.3); LYMPH % 4.6 % (20.0-40.0); MEAN CORPUSCULAR HEMOGLOBIN 25.9 pg (27.0-31.0); MEAN CORPUSCULAR HGB CONC 31.5 g/dL (33.0-37.0); MEAN PLATELET VOLUME 11.2 fL (7.2-11.7); MONO # 0.7 K/uL (0.0-0.8); MONO % 2.9 % (0.0-10.0); NEUT # 21.2 K/uL (1.8-7.0); NEUT % 92.3 % (50.0-75.0); NRBC % 0.1 % (0.0-2.0); PLATELET COUNT 188 K/uL (130-400); RBC 5.06 Mil/uL (4.40-5.90); RED CELL DISTRIBUTION WIDTH 21.5 % (11.5-14.5)
[2017-06-25 08:25] LABS: ALB/GLOB RATIO 0.8 (1.0-2.1); ALBUMIN 3.4 g/dL (3.5-5.0); CALCIUM 8.6 mg/dl (8.6-10.4)
[2017-06-25] MEDS ORDERED: Sod Polystyrene Sulf 15 gm/60 ml Susp PO STA (08:41)
[2017-06-25] MEDS ORDERED: Albuterol-Ipratrop 3 mg / 0.5 (3 ml) UD INH STA (08:42)
[2017-06-25] MEDS: MethylPREDNISolone 40 mg Vial IVP SCH ×2 (09:20→21:38)
[2017-06-25] MEDS: Pantoprazole 40 mg EC Tab PO SCH (09:20)
[2017-06-25 09:31] LABS: ARTERIAL BLOOD GAS HCO3 25.9 mmol/L (21-28); ARTERIAL BLOOD GAS HEMOGLOBIN 12.9 g/dL (11.7-17.4); ARTERIAL BLOOD GAS O2 SAT 90.1 % (95-98); ARTERIAL BLOOD GAS PCO2 77 mm/Hg (35-45); ARTERIAL BLOOD GAS PH 7.22 (7.35-7.45); ARTERIAL BLOOD GAS PO2 54 mm/Hg (80-100); ARTERIAL BLOOD GAS TCO2 33.9 mmol/L (22-28)
[2017-06-25 09:34] LABS: BANDS 7 % (0-2); LYMPHOCYTE 3 % (20-40); MONOCYTE 2 % (0-10); NEUTROPHIL 88 % (50-75); PLATELET ESTIMATE NORMAL (NORMAL); TOTAL CELLS COUNTED 100
[2017-06-25] MEDS: Piperacill/Tazo 3.375gm in Dex 3.375 GM/50 ML BAG IVPB SCH ×2 (09:34→21:38)
[2017-06-25 09:35] LABS: ANISOCYTOSIS MODERATE; HYPOCHROMIC SLIGHT; LARGE PLATELETS PRESENT; OVALOCYTES SLIGHT; POIKILOCYTOSIS SLIGHT; POLYCHROMIC SLIGHT; TOXIC GRANULATION PRESENT
[2017-06-25 09:36] LABS: BURR CELLS SLIGHT; GIANT PLATELETS PRESENT; TARGET CELLS SLIGHT
[2017-06-25] MEDS: Azithromycin 500 MG in Sodium Chloride 0.9% 250 ML IVPB SCH (09:36)
[2017-06-25 09:37] LABS: SCHISTOCYTES SLIGHT
--- NOTE | 2017-06-25 14:45 | CP.PCM.CON ---
History of Present Illness - History of Present Illness History of Present Illness: 46 yo male, being seen for HENRIQUE on CKD. History of CKD 3 due to diabetic nephropathy. Pt has history of DVT, PE, COPD, CHF, cirrhosis, now presents with cough and fluid retention. Labs notable for respiratory acidosis and high pco2. Cxray with pulmonary vascular congestion. Pt receiving steroids and diuretics, noted to have worsening creatinine and hyperkalemia. Notes normal u/o. Moved bowels with kayexelate. No chest pain or palpitations. Notes compliance with diuretics at home. Review of Systems - Constitutional Constitutional: absent: Chills, Fever - EENT Eyes: Other Visual Disturbances. absent: Itchy Eyes Nose/Mouth/Throat: Nasal Congestion. absent: Nasal Discharge - Cardiovascular Cardiovascular: Dyspnea. absent: Chest Pain at Rest - Respiratory Respiratory: Cough. absent: Hemoptysis - Gastrointestinal Gastrointestinal: Bloating. absent: Loose Stools - Genitourinary Genitourinary: absent: Change in Urinary Stream, Difficulty Urinating - Musculoskeletal Musculoskeletal: absent: Arthralgias, Joint Swelling - Neurological Neurological: absent: Convulsions, Memory Loss - Hematologic/Lymphatic Hematologic: absent: Easy Bleeding, Easy Bruising Past Patient History - Infectious Disease Hx of Infectious Diseases: None - Past Medical History & Family History Past Medical History?: Yes - Past Social History Smoking Status: Former Smoker - CARDIAC Hx Cardiac Disorders: Yes Hx Congestive Heart Failure: Yes Hx Hypertension: Yes - PULMONARY Hx Respiratory Disorders: Yes Hx Asthma: Yes Hx Chronic Obstructive Pulmonary Disease (COPD): Yes Hx Pneumonia: Yes - NEUROLOGICAL Hx Neurological Disorder: Yes - HEENT Hx HEENT Problems: No - RENAL Hx Chronic Kidney Disease: Yes - ENDOCRINE/METABOLIC Hx Endocrine Disorders: Yes Hx Diabetes Mellitus Type 2: Yes - HEMATOLOGICAL/ONCOLOGICAL Hx Blood Disorders: Yes Other/Comment: Right LE DVT - INTEGUMENTARY Hx Dermatological Problems: Yes Hx Cellulitis: Yes - MUSCULOSKELETAL/RHEUMATOLOGICAL Hx Musculoskeletal Disorders: No Hx Falls: No - GASTROINTESTINAL Hx Gastrointestinal Disorders: No - GENITOURINARY/GYNECOLOGICAL Hx Genitourinary Disorders: No - PSYCHIATRIC Hx Psychophysiologic Disorder: No Hx Substance Use: No - SURGICAL HISTORY Hx Surgeries: Yes Hx Splenectomy: Yes Other/Comment: IVC Filter placement - ANESTHESIA Hx Anesthesia: Yes Hx Anesthesia Reactions: No Hx Malignant Hyperthermia: No Has any member of the family had a problem w/ anesthesia?: No Meds Allergies/Adverse Reactions: Allergies Allergy/AdvReac Type Severity Reaction Status Date / Time EGG Allergy Intermediate RASH Verified 05/05/17 14:28 - Medications Medications: Current Medications Albuterol/Ipratropium (Duoneb 3 Mg/0.5 Mg (3 Ml) Ud) 3 ml INH RQ6 PRN PRN Reason: Shortness of Breath Last Admin: 06/24/17 19:35 Dose: 3 ml Apixaban (Eliquis) 2.5 mg PO Q12 [facility] Last Admin: 06/25/17 09:21 Dose: 2.5 mg Aspirin (Aspirin Chewable) 81 mg PO DAILY [facility] Last Admin: 06/25/17 09:20 Dose: 81 mg Furosemide (Lasix) 40 mg IVP Q12 [facility] Last Admin: 06/25/17 09:22 Dose: 40 mg Azithromycin 500 mg/ Sodium (Chloride) 250 mls @ 250 mls/hr IVPB DAILY [facility] PRN Reason: Protocol Last Admin: 06/25/17 09:36 Dose: 250 mls/hr Piperacillin Sod/Tazobactam Sod (Zosyn 3.375 Gm Iv Premix) 3.375 gm in 50 mls @ 200 mls/hr IVPB Q12 [facility] PRN Reason: Protocol Last Admin: 06/25/17 09:34 Dose: 200 mls/hr Insulin Aspart (Novolog) 12 unit SC ACTID [facility] Last Admin: 06/25/17 12:16 Dose: 12 unit Insulin Human Isoph/Insulin Regular (Novolin 70/30 (70/30 Units/Ml) 10 Ml) 20 units SC BIDAC [facility] Last Admin: 06/25/17 07:50 Dose: 20 units Methylprednisolone (Solu-Medrol) 40 mg IVP Q12 [facility] Last Admin: 06/25/17 09:20 Dose: 40 mg Metoprolol Tartrate (Lopressor) 25 mg PO BID [facility] Last Admin: 06/25/17 09:21 Dose: 25 mg Montelukast Sodium (Singulair) 10 mg PO HS [facility] Last Admin: 06/24/17 21:53 Dose: 10 mg Pantoprazole Sodium (Protonix Ec Tab) 40 mg PO DAILY [facility] Last Admin: 06/25/17 09:20 Dose: 40 mg Rosuvastatin Calcium (Crestor) 20 mg PO HS [facility] Last Admin: 06/24/17 21:53 Dose: 20 mg Sitagliptin Phosphate (Januvia) 50 mg PO DAILY [facility] Last Admin: 06/25/17 09:21 Dose: 50 mg Sodium Bicarbonate (Sodium Bicarbonate Tab) 650 mg PO Q6 [facility] Stop: 06/27/17 12:01 Last Admin: 06/25/17 12:20 Dose: 650 mg Physical Exam - Constitutional Appears: Non-toxic, Chronically Ill - Head Exam Head Exam: ATRAUMATIC, NORMAL INSPECTION Additional comments: wearing bipap - Eye Exam Eye Exam: EOMI, Normal appearance - ENT Exam ENT Exam: Mucous Membranes Moist - Neck Exam Neck exam: Positive for: Full Rom. Negative for: Lymphadenopathy - Respiratory Exam Respiratory Exam: Rhonchi. absent: Accessory Muscle Use - Cardiovascular Exam Cardiovascular Exam: Clicks. absent: Rubs - GI/Abdominal Exam GI & Abdominal Exam: Distended. absent: Guarding - Extremities Exam Extremities exam: Positive for: pedal edema - Neurological Exam Neurological exam: Alert, Oriented x3 Results - Vital Signs Recent Vital Signs: Last Vital Signs Temp 98.1 F 06/25/17 07:00 Pulse 106 H 06/25/17 07:05 Resp 20 06/25/17 07:00 BP 140/72 06/25/17 09:22 Pulse Ox 94 L 06/25/17 07:00 - Labs Result Diagrams: 06/25/17 07:47 06/25/17 07:47 Labs: Laboratory Results - last 24 hr 06/24/17 06/24/17 06/24/17 14:51 17:41 20:47 WBC RBC Hgb Hct MCV MCH MCHC RDW Plt Count MPV Neut % (Auto) Lymph % (Auto) [place] % (Auto) Eos % (Auto) Baso % (Auto) Neut # (Auto) Lymph # (Auto) [place] # (Auto) Eos # (Auto) Baso # (Auto) Neutrophils % (Manual) Band Neutrophils % Lymphocytes % (Manual) Monocytes % (Manual) Toxic Granulation Platelet Estimate Large Platelets Giant Platelets Polychromasia Hypochromasia (manual) Poikilocytosis (manual Anisocytosis (manual) Target Cells Ovalocytes Josey Cells Schistocytes Puncture Site Rb pCO2 74 H* pO2 92 HCO3 26.6 ABG pH 7.24 L ABG Total CO2 34.0 H ABG O2 Saturation 97.8 ABG Base Excess 2.3 ABG Hemoglobin 12.7 ABG Carboxyhemoglobin 2.8 H POC ABG HHb (Measured) 2.1 ABG Methemoglobin 1.3 Philippe Test Na A-a O2 Difference 101.0 Respiratory Index 1.1 Hgb O2 Saturation 93.8 L Liter Flow Vent Mode Bipap FiO2 40.0 Inspiratory BiPAP 12 Expiratory BiPAP 6 Crit Value Called To Dr saavedra Crit Value Called By Piedad gautam investment trader Crit Value Read Back Y Blood Gas Notified Time 1457 Sodium Potassium Chloride Carbon Dioxide Anion Gap BUN Creatinine Est GFR ( Amer) Est GFR (Non-Af Amer) POC Glucose (mg/dL) 183 H 293 H Random Glucose Calcium Total Bilirubin AST ALT Alkaline Phosphatase Total Protein Albumin Globulin Albumin/Globulin Ratio 06/25/17 06/25/17 06/25/17 06:01 07:47 07:47 WBC 23.0 H RBC 5.06 Hgb 13.1 Hct 41.5 MCV 82.0 MCH 25.9 L MCHC 31.5 L RDW 21.5 H Plt Count 188 MPV 11.2 Neut % (Auto) 92.3 H Lymph % (Auto) 4.6 L [place] % (Auto) 2.9 Eos % (Auto) 0.0 Baso % (Auto) 0.2 Neut # (Auto) 21.2 H Lymph # (Auto) 1.1 [place] # (Auto) 0.7 Eos # (Auto) 0.0 Baso # (Auto) 0.0 Neutrophils % (Manual) 88 H Band Neutrophils % 7 H Lymphocytes % (Manual) 3 L Monocytes % (Manual) 2 Toxic Granulation Present Platelet Estimate Normal Large Platelets Present Giant Platelets Present Polychromasia Slight Hypochromasia (manual) Slight Poikilocytosis (manual Slight Anisocytosis (manual) Moderate Target Cells Slight Ovalocytes Slight [place] Cells Slight Schistocytes Slight Puncture Site pCO2 pO2 HCO3 ABG pH ABG Total CO2 ABG O2 Saturation ABG Base Excess ABG Hemoglobin ABG Carboxyhemoglobin POC ABG HHb (Measured) ABG Methemoglobin Philippe Test A-a O2 Difference Respiratory Index Hgb O2 Saturation Liter Flow Vent Mode FiO2 Inspiratory BiPAP Expiratory BiPAP Crit Value Called To Crit Value Called By Crit Value Read Back Blood Gas Notified Time Sodium 139 Potassium 6.3 H* D Chloride 96 L Carbon Dioxide 30 Anion Gap 18 BUN 54 H Creatinine 2.6 H Est GFR ( Amer) 32 Est GFR (Non-Af Amer) 27 POC Glucose (mg/dL) 302 H Random Glucose 326 H Calcium 8.6 Total Bilirubin 0.5 AST 30 ALT 22 Alkaline Phosphatase 183 H Total Protein 7.4 Albumin 3.4 L Globulin 4.0 H Albumin/Globulin Ratio 0.8 L 06/25/17 06/25/17 09:26 11:20 WBC RBC Hgb Hct MCV MCH MCHC RDW Plt Count MPV Neut % (Auto) Lymph % (Auto) [place] % (Auto) Eos % (Auto) Baso % (Auto) Neut # (Auto) Lymph # (Auto) [place] # (Auto) Eos # (Auto) Baso # (Auto) Neutrophils % (Manual) Band Neutrophils % Lymphocytes % (Manual) Monocytes % (Manual) Toxic Granulation Platelet Estimate Large Platelets Giant Platelets Polychromasia Hypochromasia (manual) Poikilocytosis (manual Anisocytosis (manual) Target Cells Ovalocytes Josey Cells Schistocytes Puncture Site Rb pCO2 77 H* pO2 54 L HCO3 25.9 ABG pH 7.22 L ABG Total CO2 33.9 H ABG O2 Saturation 90.1 L ABG Base Excess 1.6 ABG Hemoglobin 12.9 ABG Carboxyhemoglobin 2.8 H POC ABG HHb (Measured) 9.5 H ABG Methemoglobin 1.7 Philippe Test Na A-a O2 Difference 42.0 Respiratory Index 0.8 Hgb O2 Saturation 86.0 L Liter Flow 2.0 Vent Mode FiO2 27.0 Inspiratory BiPAP Expiratory BiPAP Crit Value Called To 6t bo bee Crit Value Called By Piedad gautam investment trader Crit Value Read Back Y Blood Gas Notified Time 935 Sodium Potassium Chloride Carbon Dioxide Anion Gap BUN Creatinine Est GFR ( Amer) Est GFR (Non-Af Amer) POC Glucose (mg/dL) 267 H Random Glucose Calcium Total Bilirubin AST ALT Alkaline Phosphatase Total Protein Albumin Globulin Albumin/Globulin Ratio Assessment & Plan - Assessment and Plan (Free Text) Assessment: chf exacerbation copd exacerbation co2 retention/respiratory acidosis hypertension ckd 3 with acute worsening and hyperkalemia diabetes dvt/pulmonary embolus history obesity diuresis medical management of hyperkalemia, repeat labs, K restrict in diet bipap/nebulizer/steroids will follow
[2017-06-25 17:00] LABS: ALB/GLOB RATIO 0.8 (1.0-2.1); ALBUMIN 3.2 g/dL (3.5-5.0); CALCIUM 8.5 mg/dl (8.6-10.4)
[2017-06-25] MEDS: guaiFENesin DM 200 mg-20 mg/10 ml UD PO PRN (18:52)
--- NOTE | 2017-06-25 19:07 | CP.PCM.PN ---
Subjective - Date & Time of Evaluation Date of Evaluation: 06/25/17 Time of Evaluation: 19:03 - Subjective Subjective: pt still having sob ABG showing acidosis hypoxic spo2 in Room air 67% placed on 4L/nc and spo2 88-92% adequate no chest pain less swelling noted His K was high today and placed on kayoxalte and better now Temp Pulse Resp BP Pulse Ox 98.5 F 101 H 22 146/81 95 06/25/17 15:15 06/25/17 15:30 06/25/17 15:15 06/25/17 17:28 06/25/17 15:15 chest good air entry regular hs abd soft edema noted labs noted abg noted CXR noted some improvement in chf noted on lasix and emperical antibiotic for acute CAP likely a/p: 45-year-old male with multiple medical history including COPD, asthma, diabetes , hypertension, DVT history of [place] in the past and chronic liver disease. Patient possibly severe obstructive sleep apnea renal insufficiency, History of splenectomy, history of dialysis in the past. 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 worsening proteinuria with fluid overload status. acute on Chronic respiratory failure with CO2 retention possibly type II. hyperkalemia hold cozaar. renal consult appreciated ABg in am I insisted the pt to use CPAP at night Objective - Vital Signs/Intake and Output Vital Signs (last 24 hours): Temp Pulse Resp BP Pulse Ox 98.5 F 101 H 22 146/81 95 06/25/17 15:15 06/25/17 15:30 06/25/17 15:15 06/25/17 17:28 06/25/17 15:15 Intake and Output: 06/25/17 06/26/17 18:59 06:59 Intake Total 700 Balance 700 - Medications Medications: Current Medications Albuterol/Ipratropium (Duoneb 3 Mg/0.5 Mg (3 Ml) Ud) 3 ml INH RQ6 PRN PRN Reason: Shortness of Breath Last Admin: 06/24/17 19:35 Dose: 3 ml Apixaban (Eliquis) 2.5 mg PO Q12 [facility] Last Admin: 06/25/17 09:21 Dose: 2.5 mg Aspirin (Aspirin Chewable) 81 mg PO DAILY [facility] Last Admin: 04/08/18 09:20 Dose: 81 mg Furosemide (Lasix) 40 mg IVP Q12 [facility] Last Admin: 06/25/17 09:22 Dose: 40 mg Guaifenesin/Dextromethorphan (Robitussin Dm) 10 ml PO Q6 PRN PRN Reason: Cough and congestion Last Admin: 06/25/17 18:52 Dose: 10 ml Azithromycin 500 mg/ Sodium (Chloride) 250 mls @ 250 mls/hr IVPB DAILY [facility] PRN Reason: Protocol Last Admin: 06/25/17 09:36 Dose: 250 mls/hr Piperacillin Sod/Tazobactam Sod (Zosyn 3.375 Gm Iv Premix) 3.375 gm in 50 mls @ 200 mls/hr IVPB Q12 [facility] PRN Reason: Protocol Last Admin: 06/25/17 09:34 Dose: 200 mls/hr Insulin Aspart (Novolog) 12 unit SC ACTID [facility] Last Admin: 06/25/17 17:26 Dose: 12 unit Insulin Human Isoph/Insulin Regular (Novolin 70/30 (70/30 Units/Ml) 10 Ml) 20 units SC BIDAC [facility] Last Admin: 06/25/17 17:26 Dose: 20 units Methylprednisolone (Solu-Medrol) 40 mg IVP Q12 [facility] Last Admin: 06/25/17 09:20 Dose: 40 mg Metoprolol Tartrate (Lopressor) 25 mg PO BID [facility] Last Admin: 06/25/17 17:28 Dose: 25 mg Montelukast Sodium (Singulair) 10 mg PO HS [facility] Last Admin: 06/24/17 21:53 Dose: 10 mg Pantoprazole Sodium (Protonix Ec Tab) 40 mg PO DAILY [facility] Last Admin: 06/25/17 09:20 Dose: 40 mg Rosuvastatin Calcium (Crestor) 20 mg PO HS [facility] Last Admin: 06/24/17 21:53 Dose: 20 mg Sitagliptin Phosphate (Januvia) 50 mg PO DAILY [facility] Last Admin: 06/25/17 09:21 Dose: 50 mg Sodium Bicarbonate (Sodium Bicarbonate Tab) 650 mg PO Q6 [facility] Stop: 06/27/17 12:01 Last Admin: 06/25/17 17:26 Dose: 650 mg - Labs Labs: 06/25/17 07:47 06/25/17 16:36 PT 14.5 SECONDS (9.7-12.2) H 06/24/17 13:30 INR 1.3 06/24/17 13:30 APTT 67 SECONDS (21-34) H 06/24/17 13:30
[2017-06-25] MEDS: Albuterol-Ipratrop 3 mg / 0.5 (3 ml) UD INH PRN (20:05)
[2017-06-26] MEDS: guaiFENesin DM 200 mg-20 mg/10 ml UD PO PRN ×3 (06:50→22:44)
[2017-06-26 07:18] LABS: BASO # 0.1 K/uL (0.0-0.2); BASO % 0.3 % (0.0-2.0); HEMOGLOBIN 12.8 g/dL (12.0-18.0); LYMPH # 1.7 K/uL (1.0-4.3); LYMPH % 6.7 % (20.0-40.0); MEAN CELL VOLUME 82.1 fL (80.0-94.0); MEAN CORPUSCULAR HEMOGLOBIN 25.7 pg (27.0-31.0); MEAN CORPUSCULAR HGB CONC 31.3 g/dL (33.0-37.0); MEAN PLATELET VOLUME 10.9 fL (7.2-11.7); MONO # 0.9 K/uL (0.0-0.8); MONO % 3.4 % (0.0-10.0); NEUT % 89.6 % (50.0-75.0); NRBC % 0.1 % (0.0-2.0); PLATELET COUNT 194 K/uL (130-400); RBC 4.96 Mil/uL (4.40-5.90); RED CELL DISTRIBUTION WIDTH 21.9 % (11.5-14.5); WHITE BLOOD COUNT 25.7 K/uL (4.8-10.8)
[2017-06-26 08:11] LABS: ALB/GLOB RATIO 0.9 (1.0-2.1); ALBUMIN 3.4 g/dL (3.5-5.0); CALCIUM 8.6 mg/dl (8.6-10.4)
[2017-06-26] MEDS: (Novolin 70/30) NPH/Regular 70/30 Units/ml 10 ml vial SC SCH ×2 (08:19→16:46)
[2017-06-26] MEDS: (Novolog) Insulin Aspart, Recombinant 100 u/ml 10 ml vial SC SCH ×3 (08:20→16:46)
--- NOTE | 2017-06-26 08:23 | RAD ---
HISTORY: pneumonia COMPARISON: Portable chest 06/24/2017. FINDINGS: LUNGS: Improved pulmonary vascular derangement seen the bilateral hilar regions with cardiomegaly stable. No acute infiltrate, pleural effusion or pneumothorax identified bilaterally with the trachea midline. PLEURA: As above. CARDIOVASCULAR: As above. OSSEOUS STRUCTURES: No significant abnormalities. VISUALIZED UPPER ABDOMEN: Normal. OTHER FINDINGS: None. IMPRESSION: Improved CHF. No definite acute alveolitis or pleural effusion bilaterally.
[2017-06-26] MEDS ORDERED: Sod Polystyrene Sulf 15 gm/60 ml Susp PO STA (08:24)
[2017-06-26 08:30] LABS: BANDS 8 % (0-2); LYMPHOCYTE 1 % (20-40); METAMYELOCYTE 1 % (0-0); MONOCYTE 5 % (0-10); NEUTROPHIL 85 % (50-75); TOTAL CELLS COUNTED 100
[2017-06-26 08:31] LABS: ANISOCYTOSIS MODERATE; PLATELET ESTIMATE NORMAL (NORMAL); TOXIC GRANULATION PRESENT
[2017-06-26 08:32] LABS: GIANT PLATELETS PRESENT; HYPOCHROMIC SLIGHT; LARGE PLATELETS PRESENT; OVALOCYTES SLIGHT; POIKILOCYTOSIS SLIGHT; POLYCHROMIC SLIGHT; TARGET CELLS SLIGHT
[2017-06-26 08:33] LABS: SCHISTOCYTES SLIGHT
[2017-06-26 09:16] LABS: ABG ALLEN TEST POS; ARTERIAL BLOOD GAS HEMOGLOBIN 12.5 g/dL (11.7-17.4); ARTERIAL BLOOD GAS O2 SAT 98.1 % (95-98); ARTERIAL BLOOD GAS PCO2 77 mm/Hg (35-45); ARTERIAL BLOOD GAS PO2 100 mm/Hg (80-100); ARTERIAL BLOOD GAS TCO2 32.5 mmol/L (22-28)
[2017-06-26] MEDS: Piperacill/Tazo 3.375gm in Dex 3.375 GM/50 ML BAG IVPB SCH (09:55)
[2017-06-26] MEDS: Pantoprazole 40 mg EC Tab PO SCH (09:55)
[2017-06-26] MEDS: MethylPREDNISolone 40 mg Vial IVP SCH ×2 (10:29→21:50)
[2017-06-26] MEDS: Azithromycin 500 MG in Sodium Chloride 0.9% 250 ML IVPB SCH (10:29)
--- NOTE | 2017-06-26 12:04 | CP.PCM.PN ---
Subjective - Date & Time of Evaluation Date of Evaluation: 06/26/17 Time of Evaluation: 12:02 - Subjective Subjective: Events noted Remains on biPAP; still dyspneic CXR still with CHF creat increased ; K elevated UO- 500ml this AM discussed worsening nature of renal disease with pt Objective - Vital Signs/Intake and Output Vital Signs (last 24 hours): Temp Pulse Resp BP Pulse Ox 98.5 F 83 18 141/73 96 06/26/17 07:00 06/26/17 07:34 06/26/17 07:00 06/26/17 09:55 06/26/17 07:00 Intake and Output: 06/26/17 06/26/17 06:59 18:59 Intake Total 440 Output Total 500 Balance -60 - Medications Medications: Current Medications Albuterol/Ipratropium (Duoneb 3 Mg/0.5 Mg (3 Ml) Ud) 3 ml INH RQ6 PRN PRN Reason: Shortness of Breath Last Admin: 06/25/17 20:05 Dose: 3 ml Apixaban (Eliquis) 2.5 mg PO Q12 [facility] Last Admin: 06/26/17 09:55 Dose: 2.5 mg Aspirin (Aspirin Chewable) 81 mg PO DAILY [facility] Last Admin: 06/26/17 09:55 Dose: 81 mg Furosemide (Lasix) 40 mg IVP Q12 [facility] Last Admin: 06/26/17 09:55 Dose: 40 mg Guaifenesin/Dextromethorphan (Robitussin Dm) 10 ml PO Q6 PRN PRN Reason: Cough and congestion Last Admin: 06/26/17 06:50 Dose: 10 ml Azithromycin 500 mg/ Sodium (Chloride) 250 mls @ 250 mls/hr IVPB DAILY [facility] PRN Reason: Protocol Last Admin: 06/26/17 10:29 Dose: 250 mls/hr Piperacillin Sod/Tazobactam Sod (Zosyn 3.375 Gm Iv Premix) 3.375 gm in 50 mls @ 200 mls/hr IVPB Q12 [facility] PRN Reason: Protocol Last Admin: 06/26/17 09:55 Dose: 200 mls/hr Insulin Aspart (Novolog) 12 unit SC ACTID [facility] Last Admin: 06/26/17 08:20 Dose: 12 unit Insulin Human Isoph/Insulin Regular (Novolin 70/30 (70/30 Units/Ml) 10 Ml) 20 units SC BIDAC [facility] Last Admin: 06/26/17 08:19 Dose: 20 units Methylprednisolone (Solu-Medrol) 20 mg IVP Q12 [facility] Last Admin: 06/26/17 10:29 Dose: 20 mg Metoprolol Tartrate (Lopressor) 25 mg PO BID [facility] Last Admin: 06/26/17 09:55 Dose: 25 mg Montelukast Sodium (Singulair) 10 mg PO HS [facility] Last Admin: 06/25/17 21:37 Dose: 10 mg Pantoprazole Sodium (Protonix Ec Tab) 40 mg PO DAILY [facility] Last Admin: 06/26/17 09:55 Dose: 40 mg Rosuvastatin Calcium (Crestor) 20 mg PO HS [facility] Last Admin: 06/25/17 21:38 Dose: 20 mg Sitagliptin Phosphate (Januvia) 50 mg PO DAILY [facility] Last Admin: 06/26/17 09:55 Dose: 50 mg Sodium Bicarbonate (Sodium Bicarbonate Tab) 650 mg PO Q6 [facility] Stop: 06/27/17 12:01 Last Admin: 06/26/17 05:45 Dose: 650 mg - Labs Labs: 06/26/17 07:08 06/26/17 07:08 PT 14.5 SECONDS (9.7-12.2) H 06/24/17 13:30 INR 1.3 06/24/17 13:30 APTT 67 SECONDS (21-34) H 06/24/17 13:30 - Constitutional Appears: In Acute Distress, Chronically Ill - Head Exam Head Exam: ATRAUMATIC, NORMAL INSPECTION - Eye Exam Eye Exam: EOMI, Normal appearance - Neck Exam Neck Exam: Normal Inspection. absent: Tenderness - Respiratory Exam Respiratory Exam: Decreased Breath Sounds, Respiratory Distress - Cardiovascular Exam Cardiovascular Exam: REGULAR RHYTHM, +S1 - GI/Abdominal Exam GI & Abdominal Exam: Distended, Soft - Extremities Exam Extremities Exam: Pedal Edema. 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
[2017-06-26] MEDS ORDERED: metOLazone 5 MG TAB PO ONE (12:15)
[2017-06-26] MEDS: Cefepime IV 1 gm in Dextrose 1 GM/50 ML BAG IVPB SCH (18:48)
[2017-06-27 06:34] LABS: BASO % 0.1 % (0.0-2.0); HEMOGLOBIN 12.8 g/dL (12.0-18.0); LYMPH % 4.5 % (20.0-40.0); MEAN CELL VOLUME 81.3 fL (80.0-94.0); MEAN CORPUSCULAR HEMOGLOBIN 25.9 pg (27.0-31.0); MEAN CORPUSCULAR HGB CONC 31.9 g/dL (33.0-37.0); MEAN PLATELET VOLUME 11.3 fL (7.2-11.7); MONO # 1.1 K/uL (0.0-0.8); MONO % 5.4 % (0.0-10.0); NRBC % 0.2 % (0.0-2.0); PLATELET COUNT 179 K/uL (130-400); RBC 4.95 Mil/uL (4.40-5.90); RED CELL DISTRIBUTION WIDTH 22.1 % (11.5-14.5); WHITE BLOOD COUNT 21.1 K/uL (4.8-10.8)
[2017-06-27 06:50] LABS: ALB/GLOB RATIO 0.8 (1.0-2.1); ALBUMIN 3.3 g/dL (3.5-5.0); CALCIUM 8.2 mg/dl (8.6-10.4)
[2017-06-27] MEDS ORDERED: Sod Polystyrene Sulf 15 gm/60 ml Susp PO ONE (07:49)
[2017-06-27] MEDS: (Novolog) Insulin Aspart, Recombinant 100 u/ml 10 ml vial SC SCH ×3 (08:32→17:11)
[2017-06-27] MEDS: (Novolin 70/30) NPH/Regular 70/30 Units/ml 10 ml vial SC SCH ×2 (08:33→17:11)
[2017-06-27 08:40] LABS: ANISOCYTOSIS SLIGHT; LYMPHOCYTE 2 % (20-40); MICROCYTOSIS SLIGHT; MONOCYTE 5 % (0-10); NEUTROPHIL 93 % (50-75); PLATELET ESTIMATE NORMAL (NORMAL); POIKILOCYTOSIS SLIGHT; TOTAL CELLS COUNTED 100
[2017-06-27 08:41] LABS: HYPOCHROMIC SLIGHT; TARGET CELLS SLIGHT; TEARDROP CELLS SLIGHT
[2017-06-27] MEDS: MethylPREDNISolone 40 mg Vial IVP SCH ×2 (10:33→22:58)
[2017-06-27] MEDS: Pantoprazole 40 mg EC Tab PO SCH (10:33)
--- NOTE | 2017-06-27 12:56 | CP.PCM.PN ---
Subjective - Date & Time of Evaluation Date of Evaluation: 06/27/17 Time of Evaluation: 12:50 - Subjective Subjective: seen and examined reports improved breathing. was on cpap at night denies any nausea vomiting diarrhea cp fevers chills rash dizziness headache weakness numbness leg swelling unchanged 24 hour urine collection in progress, pt reports good uop Objective - Vital Signs/Intake and Output Vital Signs (last 24 hours): Temp Pulse Resp BP Pulse Ox 98.4 F 74 18 133/73 98 06/27/17 07:00 06/27/17 07:28 06/27/17 07:00 06/27/17 10:35 06/27/17 07:00 Intake and Output: 06/27/17 06/27/17 06:59 18:59 Intake Total 850 Output Total 1750 Balance -900 - Medications Medications: Current Medications Albuterol/Ipratropium (Duoneb 3 Mg/0.5 Mg (3 Ml) Ud) 3 ml INH RQ6 PRN PRN Reason: Shortness of Breath Last Admin: 06/25/17 20:05 Dose: 3 ml Apixaban (Eliquis) 2.5 mg PO Q12 [facility] Last Admin: 06/27/17 10:33 Dose: 2.5 mg Aspirin (Aspirin Chewable) 81 mg PO DAILY [facility] Last Admin: 06/27/17 10:33 Dose: 81 mg Furosemide (Lasix) 40 mg IVP Q12 [facility] Last Admin: 06/27/17 10:35 Dose: 40 mg Guaifenesin/Dextromethorphan (Robitussin Dm) 10 ml PO Q6 PRN PRN Reason: Cough and congestion Last Admin: 06/26/17 22:44 Dose: 10 ml Cefepime HCl (Maxipime Iv 1 Gm Premix) 1 gm in 50 mls @ 100 mls/hr IVPB Q24H [facility] PRN Reason: Protocol Last Admin: 06/26/17 18:48 Dose: 100 mls/hr Insulin Aspart (Novolog) 12 unit SC ACTID [facility] Last Admin: 06/27/17 12:12 Dose: 12 unit Insulin Human Isoph/Insulin Regular (Novolin 70/30 (70/30 Units/Ml) 10 Ml) 20 units SC BIDAC [facility] Last Admin: 06/27/17 08:33 Dose: 20 units Methylprednisolone (Solu-Medrol) 20 mg IVP Q12 [facility] Last Admin: 06/27/17 10:33 Dose: 20 mg Metoprolol Tartrate (Lopressor) 25 mg PO BID [facility] Last Admin: 06/27/17 10:33 Dose: 25 mg Montelukast Sodium (Singulair) 10 mg PO HS [facility] Last Admin: 06/26/17 21:50 Dose: 10 mg Pantoprazole Sodium (Protonix Ec Tab) 40 mg PO DAILY [facility] Last Admin: 06/27/17 10:33 Dose: 40 mg Rosuvastatin Calcium (Crestor) 20 mg PO HS [facility] Last Admin: 06/26/17 21:50 Dose: 20 mg Sitagliptin Phosphate (Januvia) 50 mg PO DAILY [facility] Last Admin: 06/27/17 10:33 Dose: 50 mg - Labs Labs: 06/27/17 06:26 06/27/17 06:26 PT 14.5 SECONDS (9.7-12.2) H 06/24/17 13:30 INR 1.3 06/24/17 13:30 APTT 67 SECONDS (21-34) H 06/24/17 13:30 - Constitutional Appears: No Acute Distress, Chronically Ill (obese) - Head Exam Head Exam: NORMAL INSPECTION, NORMOCEPHALIC - Eye Exam Eye Exam: Normal appearance Pupil Exam: PERRL - ENT Exam ENT Exam: Mucous Membranes Moist, Normal Exam - Neck Exam Neck Exam: Normal Inspection - Respiratory Exam Respiratory Exam: Rhonchi, Wheezes, NORMAL BREATHING PATTERN - Cardiovascular Exam Cardiovascular Exam: REGULAR RHYTHM - GI/Abdominal Exam GI & Abdominal Exam: Distended, Soft, Diminished Bowel Sounds - Extremities Exam Extremities Exam: Pedal Edema (3+) - Back Exam Back Exam: NORMAL INSPECTION - Neurological Exam Neurological Exam: Alert, Awake, Oriented x3 - Psychiatric Exam Psychiatric exam: Normal Affect, Normal Mood - Skin Skin Exam: Intact, Normal Color Assessment and Plan (1) CKD stage 4 due to type 2 diabetes mellitus Status: Acute (2) CO2 retention Status: Acute (3) COPD exacerbation Status: Acute (4) Nephrotic syndrome Status: Acute - Assessment and Plan (Free Text) Assessment: maintain lasix PAN PULLER was discussed w/ pt, if no improvement in renal function- will need HD follow creat clearance
--- NOTE | 2017-06-27 13:02 | VASCLAB ---
PROCEDURE: Lower Extremity Venous Duplex Exam. HISTORY: edema PRIORS: None. TECHNIQUE: Bilateral common femoral, femoral, popliteal and posterior tibial, peroneal and great saphenous veins were evaluated. Flow was assessed with color Doppler, compressibility, assessment of phasic flow and augmentation response. Report prepared by ZOË Escobedo, RVT FINDINGS: RIGHT: 1. Common Femoral Vein: 1.1. Compressibility - Fully compressible: Thrombus - None : Flow - Phasic: Augmentation -Normal: Reflux - None. 2. Femoral Vein: 2.1. Compressibility - Fully compressible: Thrombus - None : Flow - Phasic: Augmentation -Normal: Reflux - None. 3. Popliteal Vein: 3.1. Compressibility - Fully compressible: Thrombus - None : Flow - Phasic: Augmentation -Normal: Reflux - None. 4. Posterior Tibial Vein: 4.1. Compressibility - Fully compressible: Thrombus - None: Flow - Phasic: Augmentation -Normal: Reflux - None. 5. Peroneal Vein: 5.1. Compressibility - : Thrombus - : Flow - : Augmentation -: Reflux - . 6. Great Saphenous Vein: 6.1. Compressibility - Fully compressible: Thrombus - None: Flow - Phasic: Augmentation - Normal: Reflux - None. LEFT: 1. Common Femoral Vein: 1.1. Compressibility - Fully compressible: Thrombus - None: Flow - Phasic: Augmentation -Normal: Reflux - None. 2. Femoral Vein: 2.1. Compressibility - Fully compressible: Thrombus - None: Flow - Phasic: Augmentation -Normal: Reflux - None. 3. Popliteal Vein: 3.1. Compressibility - Fully compressible: Thrombus - None : Flow - Phasic: Augmentation -Normal: Reflux - None. 4. Posterior Tibial Vein: 4.1. Compressibility - Fully compressible: Thrombus - None: Flow - Phasic: Augmentation -Normal: Reflux - None. 5. Peroneal Vein: 5.1. Compressibility - : Thrombus - : Flow - : Augmentation -: Reflux - . 6. Great Saphenous Vein: 6.1. Compressibility - Fully compressible: Thrombus - None: Flow - Phasic: Augmentation - Normal: Reflux - None. OTHER FINDINGS: Due to swelling in the calves, bilateral peroneal vein were not visualized. IMPRESSION: Right: No evidence of deep or superficial vein thrombosis of the right lower extremity. Normal valve function noted of the right side. Left: No evidence of deep or superficial vein thrombosis of the left lower extremity. Normal valve function noted of the left side.
[2017-06-27] MEDS: Cefepime IV 1 gm in Dextrose 1 GM/50 ML BAG IVPB SCH (17:13)
[2017-06-27] MEDS: guaiFENesin DM 200 mg-20 mg/10 ml UD PO PRN (17:13)
--- NOTE | 2017-06-27 18:56 | CP.PCM.PN ---
Subjective - Date & Time of Evaluation Date of Evaluation: 06/26/17 Time of Evaluation: 18:57 - Subjective Subjective: Patient still having increasing coughing noted. Mostly dry. Very scanty mucus noted. Denies any chest pain. Last night was using CPAP. But in spite of that his blood gas is not improving. Elevated potassium level noted. Revolving Field Assembler on the case. Chest bilateral diffuse rhonchi and wheezing noted. There are heart sound. Extremities edema noted bilaterally, more on the left side. Labs reviewed. Assessment and recommendation: 46-year-old male with a significant nephrotic syndrome with the very high proteinuria. Hypertension. Hyperlipidemia. Patient is also had a history of DVT, pulmonary embolism. On anticoagulation. Acute respiratory failure, with the chronic lung disease, likely interstitial the lung disease, and also COPD. Patient is on BiPAP. Will continue the IV antibiotic, closely monitor the renal function. May need a dialysis Objective - Vital Signs/Intake and Output Vital Signs (last 24 hours): Temp Pulse Resp BP Pulse Ox 97.8 F 87 20 137/93 H 98 06/27/17 15:00 06/27/17 16:00 06/27/17 15:00 06/27/17 17:13 06/27/17 15:00 Intake and Output: 06/27/17 06/27/17 06:59 18:59 Intake Total 850 Output Total 1750 1350 Balance -900 -1350 - Medications Medications: Current Medications Albuterol/Ipratropium (Duoneb 3 Mg/0.5 Mg (3 Ml) Ud) 3 ml INH RQ6 PRN PRN Reason: Shortness of Breath Last Admin: 06/25/17 20:05 Dose: 3 ml Apixaban (Eliquis) 2.5 mg PO Q12 [facility] Last Admin: 06/27/17 10:33 Dose: 2.5 mg Aspirin (Aspirin Chewable) 81 mg PO DAILY [facility] Last Admin: 06/27/17 10:33 Dose: 81 mg Furosemide (Lasix) 40 mg IVP Q12 [facility] Last Admin: 06/27/17 10:35 Dose: 40 mg Guaifenesin/Dextromethorphan (Robitussin Dm) 10 ml PO Q6 PRN PRN Reason: Cough and congestion Last Admin: 06/27/17 17:13 Dose: 10 ml Cefepime HCl (Maxipime Iv 1 Gm Premix) 1 gm in 50 mls @ 100 mls/hr IVPB Q24H [facility] PRN Reason: Protocol Last Admin: 06/27/17 17:13 Dose: 100 mls/hr Insulin Aspart (Novolog) 12 unit SC ACTID [facility] Last Admin: 06/27/17 17:11 Dose: 12 unit Insulin Human Isoph/Insulin Regular (Novolin 70/30 (70/30 Units/Ml) 10 Ml) 20 units SC BIDAC [facility] Last Admin: 06/27/17 17:11 Dose: 20 units Methylprednisolone (Solu-Medrol) 20 mg IVP Q12 [facility] Last Admin: 06/27/17 10:33 Dose: 20 mg Metoprolol Tartrate (Lopressor) 25 mg PO BID [facility] Last Admin: 06/27/17 17:13 Dose: 25 mg Montelukast Sodium (Singulair) 10 mg PO HS [facility] Last Admin: 06/26/17 21:50 Dose: 10 mg Pantoprazole Sodium (Protonix Ec Tab) 40 mg PO DAILY [facility] Last Admin: 06/27/17 10:33 Dose: 40 mg Rosuvastatin Calcium (Crestor) 20 mg PO HS [facility] Last Admin: 06/26/17 21:50 Dose: 20 mg Sitagliptin Phosphate (Januvia) 50 mg PO DAILY [facility] Last Admin: 06/27/17 10:33 Dose: 50 mg - Labs Labs: 06/27/17 06:26 06/27/17 06:26 PT 14.5 SECONDS (9.7-12.2) H 06/24/17 13:30 INR 1.3 06/24/17 13:30 APTT 67 SECONDS (21-34) H 06/24/17 13:30
--- NOTE | 2017-06-27 18:57 | CP.PCM.PN ---
Subjective - Date & Time of Evaluation Date of Evaluation: 06/27/17 Time of Evaluation: 18:56 - Subjective Subjective: Patient still having increasing coughing noted. Mostly dry. Very scanty mucus noted. Denies any chest pain. Last night was using CPAP. But in spite of that his blood gas is not improving. Elevated potassium level noted. Reconciling Clerk on the case. Chest bilateral diffuse rhonchi and wheezing noted. There are heart sound. Extremities edema noted bilaterally, more on the left side. Labs reviewed. Bilateral venous Doppler negative for DVT Assessment and recommendation: 46-year-old male with a significant nephrotic syndrome with the very high proteinuria. Hypertension. Hyperlipidemia. Patient is also had a history of DVT, pulmonary embolism. On anticoagulation. Acute respiratory failure, with the chronic lung disease, likely interstitial the lung disease, and also COPD. Patient is on BiPAP. Will continue the IV antibiotic, closely monitor the renal function. May need a dialysis Objective - Vital Signs/Intake and Output Vital Signs (last 24 hours): Temp Pulse Resp BP Pulse Ox 97.8 F 87 20 137/93 H 98 06/27/17 15:00 06/27/17 16:00 06/27/17 15:00 06/27/17 17:13 06/27/17 15:00 Intake and Output: 06/27/17 06/27/17 06:59 18:59 Intake Total 850 Output Total 1750 1350 Balance -900 -1350 - Medications Medications: Current Medications Albuterol/Ipratropium (Duoneb 3 Mg/0.5 Mg (3 Ml) Ud) 3 ml INH RQ6 PRN PRN Reason: Shortness of Breath Last Admin: 06/25/17 20:05 Dose: 3 ml Apixaban (Eliquis) 2.5 mg PO Q12 [facility] Last Admin: 06/27/17 10:33 Dose: 2.5 mg Aspirin (Aspirin Chewable) 81 mg PO DAILY [facility] Last Admin: 06/27/17 10:33 Dose: 81 mg Furosemide (Lasix) 40 mg IVP Q12 [facility] Last Admin: 06/27/17 10:35 Dose: 40 mg Guaifenesin/Dextromethorphan (Robitussin Dm) 10 ml PO Q6 PRN PRN Reason: Cough and congestion Last Admin: 06/27/17 17:13 Dose: 10 ml Cefepime HCl (Maxipime Iv 1 Gm Premix) 1 gm in 50 mls @ 100 mls/hr IVPB Q24H [facility] PRN Reason: Protocol Last Admin: 06/27/17 17:13 Dose: 100 mls/hr Insulin Aspart (Novolog) 12 unit SC ACTID [facility] Last Admin: 06/27/17 17:11 Dose: 12 unit Insulin Human Isoph/Insulin Regular (Novolin 70/30 (70/30 Units/Ml) 10 Ml) 20 units SC BIDAC [facility] Last Admin: 06/27/17 17:11 Dose: 20 units Methylprednisolone (Solu-Medrol) 20 mg IVP Q12 [facility] Last Admin: 06/27/17 10:33 Dose: 20 mg Metoprolol Tartrate (Lopressor) 25 mg PO BID [facility] Last Admin: 06/27/17 17:13 Dose: 25 mg Montelukast Sodium (Singulair) 10 mg PO HS [facility] Last Admin: 06/26/17 21:50 Dose: 10 mg Pantoprazole Sodium (Protonix Ec Tab) 40 mg PO DAILY [facility] Last Admin: 06/27/17 10:33 Dose: 40 mg Rosuvastatin Calcium (Crestor) 20 mg PO HS [facility] Last Admin: 06/26/17 21:50 Dose: 20 mg Sitagliptin Phosphate (Januvia) 50 mg PO DAILY [facility] Last Admin: 06/27/17 10:33 Dose: 50 mg - Labs Labs: 06/27/17 06:26 06/27/17 06:26 PT 14.5 SECONDS (9.7-12.2) H 06/24/17 13:30 INR 1.3 06/24/17 13:30 APTT 67 SECONDS (21-34) H 06/24/17 13:30
[2017-06-28] MEDS: guaiFENesin DM 200 mg-20 mg/10 ml UD PO PRN ×3 (03:32→21:18)
[2017-06-28] MEDS: (Novolin 70/30) NPH/Regular 70/30 Units/ml 10 ml vial SC SCH ×2 (08:20→16:36)
[2017-06-28] MEDS: (Novolog) Insulin Aspart, Recombinant 100 u/ml 10 ml vial SC SCH ×3 (08:20→16:35)
[2017-06-28] MEDS: Pantoprazole 40 mg EC Tab PO SCH (09:59)
[2017-06-28] MEDS: MethylPREDNISolone 40 mg Vial IVP SCH ×2 (10:00→21:16)
[2017-06-28 10:44] LABS: URINE CREATININE 62.8 mg/dL
--- NOTE | 2017-06-28 14:33 | CP.PCM.PN ---
Subjective - Date & Time of Evaluation Date of Evaluation: 06/28/17 Time of Evaluation: 14:30 - Subjective Subjective: Sleepy now; difficult to arouse on CPAP, still with severe WILDER last GFR=19 IC=[id number]/24 hrs cannot obtain further ROS Objective - Vital Signs/Intake and Output Vital Signs (last 24 hours): Temp Pulse Resp BP Pulse Ox 98.3 F 88 20 158/90 H 98 06/28/17 07:30 06/28/17 08:26 06/28/17 07:30 06/28/17 09:57 06/28/17 07:30 Intake and Output: 06/28/17 06/28/17 06:59 18:59 Output Total 1200 Balance -1200 - Medications Medications: Current Medications Albuterol/Ipratropium (Duoneb 3 Mg/0.5 Mg (3 Ml) Ud) 3 ml INH RQ6 PRN PRN Reason: Shortness of Breath Last Admin: 06/25/17 20:05 Dose: 3 ml Apixaban (Eliquis) 2.5 mg PO Q12 [facility] Last Admin: 06/28/17 09:56 Dose: 2.5 mg Aspirin (Aspirin Chewable) 81 mg PO DAILY [facility] Last Admin: 06/28/17 09:56 Dose: 81 mg Furosemide (Lasix) 40 mg IVP Q12 [facility] Last Admin: 06/28/17 09:57 Dose: 40 mg Guaifenesin/Dextromethorphan (Robitussin Dm) 10 ml PO Q6 PRN PRN Reason: Cough and congestion Last Admin: 06/28/17 10:00 Dose: 10 ml Cefepime HCl (Maxipime Iv 1 Gm Premix) 1 gm in 50 mls @ 100 mls/hr IVPB Q24H [facility] PRN Reason: Protocol Last Admin: 06/27/17 17:13 Dose: 100 mls/hr Insulin Aspart (Novolog) 12 unit SC ACTID [facility] Last Admin: 06/28/17 11:37 Dose: 12 unit Insulin Human Isoph/Insulin Regular (Novolin 70/30 (70/30 Units/Ml) 10 Ml) 20 units SC BIDAC [facility] Last Admin: 06/28/17 08:20 Dose: 20 units Methylprednisolone (Solu-Medrol) 20 mg IVP Q12 [facility] Last Admin: 06/28/17 10:00 Dose: 20 mg Metoprolol Tartrate (Lopressor) 25 mg PO BID [facility] Last Admin: 06/28/17 09:57 Dose: 25 mg Montelukast Sodium (Singulair) 10 mg PO HS [facility] Last Admin: 06/27/17 22:58 Dose: 10 mg Pantoprazole Sodium (Protonix Ec Tab) 40 mg PO DAILY [facility] Last Admin: 06/28/17 09:59 Dose: 40 mg Rosuvastatin Calcium (Crestor) 20 mg PO HS [facility] Last Admin: 06/27/17 22:57 Dose: 20 mg Sitagliptin Phosphate (Januvia) 25 mg PO DAILY [facility] - Labs Labs: 06/27/17 06:26 06/27/17 06:26 PT 14.5 SECONDS (9.7-12.2) H 06/24/17 13:30 INR 1.3 06/24/17 13:30 APTT 67 SECONDS (21-34) H 06/24/17 13:30 - Constitutional Appears: In Acute Distress, Chronically Ill - Head Exam Head Exam: ATRAUMATIC, NORMAL INSPECTION - Eye Exam Eye Exam: EOMI, Normal appearance - Neck Exam Neck Exam: Normal Inspection. absent: Tenderness - Respiratory Exam Respiratory Exam: Rhonchi, Respiratory Distress - Cardiovascular Exam Cardiovascular Exam: REGULAR RHYTHM, +S1 - GI/Abdominal Exam GI & Abdominal Exam: Soft. absent: Tenderness - Extremities Exam Extremities Exam: Pedal Edema, Tenderness - Neurological Exam Neurological Exam: Altered, CN II-XII Intact - Skin Skin Exam: Dry, Warm Assessment and Plan (1) CKD stage 4 due to type 2 diabetes mellitus Status: Acute (2) Nephrotic syndrome Status: Acute (3) CO2 retention Status: Acute (4) COPD exacerbation Status: Acute (5) Hypoxia Status: Acute (6) CHF (congestive heart failure) Status: Acute - Assessment and Plan (Free Text) Plan: repeat chemistries IV lasix pulmonary rx if no improvement can consider KAITARA TARAKA
[2017-06-28] MEDS: Cefepime IV 1 gm in Dextrose 1 GM/50 ML BAG IVPB SCH (17:34)
[2017-06-29] MEDS: Albuterol-Ipratrop 3 mg / 0.5 (3 ml) UD INH PRN ×2 (05:17→19:59)
[2017-06-29 07:31] LABS: HEMOGLOBIN 13.5 g/dL (12.0-18.0); MEAN CELL VOLUME 81.2 fL (80.0-94.0); MEAN CORPUSCULAR HEMOGLOBIN 26.3 pg (27.0-31.0); MEAN CORPUSCULAR HGB CONC 32.3 g/dL (33.0-37.0); MEAN PLATELET VOLUME 11.8 fL (7.2-11.7); RBC 5.15 Mil/uL (4.40-5.90); RED CELL DISTRIBUTION WIDTH 21.2 % (11.5-14.5); WHITE BLOOD COUNT 19.8 K/uL (4.8-10.8)
[2017-06-29 08:16] LABS: ALBUMIN 3.6 g/dL (3.5-5.0); CALCIUM 8.2 mg/dl (8.6-10.4)
[2017-06-29] MEDS: (Novolin 70/30) NPH/Regular 70/30 Units/ml 10 ml vial SC SCH ×2 (08:35→17:16)
[2017-06-29] MEDS: (Novolog) Insulin Aspart, Recombinant 100 u/ml 10 ml vial SC SCH ×3 (08:35→17:16)
[2017-06-29] MEDS: Pantoprazole 40 mg EC Tab PO SCH (09:28)
[2017-06-29] MEDS: MethylPREDNISolone 40 mg Vial IVP SCH (09:28)
[2017-06-29] MEDS: guaiFENesin DM 200 mg-20 mg/10 ml UD PO PRN ×3 (09:28→21:53)
--- NOTE | 2017-06-29 10:06 | CP.PCM.PN ---
Subjective - Date & Time of Evaluation Date of Evaluation: 06/29/17 Time of Evaluation: 10:04 - Subjective Subjective: Feels much better Less dyspneic No CPs, n, v, fevers, chills UO>2000ml/ 24 hrs creat better at 3.2 BUN elevated from steroids and lasix Hold off from HD consideration now as pt better Objective - Vital Signs/Intake and Output Vital Signs (last 24 hours): Temp Pulse Resp BP Pulse Ox 98.1 F 79 18 156/86 H 97 06/29/17 08:40 06/29/17 08:40 06/29/17 08:40 06/29/17 09:28 06/29/17 08:40 Intake and Output: 06/29/17 06/29/17 06:59 18:59 Intake Total 450 Output Total 1350 Balance -900 - Medications Medications: Current Medications Albuterol/Ipratropium (Duoneb 3 Mg/0.5 Mg (3 Ml) Ud) 3 ml INH RQ6 PRN PRN Reason: Shortness of Breath Last Admin: 06/29/17 05:17 Dose: 3 ml Apixaban (Eliquis) 2.5 mg PO Q12 [facility] Last Admin: 06/29/17 09:28 Dose: 2.5 mg Aspirin (Aspirin Chewable) 81 mg PO DAILY [facility] Last Admin: 06/29/17 09:28 Dose: 81 mg Furosemide (Lasix) 40 mg IVP Q12 [facility] Last Admin: 06/29/17 09:27 Dose: 40 mg Guaifenesin/Dextromethorphan (Robitussin Dm) 10 ml PO Q6 PRN PRN Reason: Cough and congestion Last Admin: 06/29/17 09:28 Dose: 10 ml Cefepime HCl (Maxipime Iv 1 Gm Premix) 1 gm in 50 mls @ 100 mls/hr IVPB Q24H [facility] PRN Reason: Protocol Last Admin: 06/28/17 17:34 Dose: 100 mls/hr Insulin Aspart (Novolog) 12 unit SC ACTID [facility] Last Admin: 06/29/17 08:35 Dose: 12 unit Insulin Human Isoph/Insulin Regular (Novolin 70/30 (70/30 Units/Ml) 10 Ml) 20 units SC BIDAC [facility] Last Admin: 06/29/17 08:35 Dose: 20 units Methylprednisolone (Solu-Medrol) 20 mg IVP Q12 [facility] Last Admin: 06/29/17 09:28 Dose: 20 mg Metoprolol Tartrate (Lopressor) 25 mg PO BID [facility] Last Admin: 06/29/17 09:28 Dose: 25 mg Montelukast Sodium (Singulair) 10 mg PO HS [facility] Last Admin: 06/28/17 21:17 Dose: 10 mg Pantoprazole Sodium (Protonix Ec Tab) 40 mg PO DAILY [facility] Last Admin: 06/29/17 09:28 Dose: 40 mg Rosuvastatin Calcium (Crestor) 5 mg PO [facility] Sitagliptin Phosphate (Januvia) 25 mg PO DAILY [facility] Last Admin: 06/29/17 09:28 Dose: 25 mg - Labs Labs: 06/29/17 07:15 06/29/17 07:15 PT 14.5 SECONDS (9.7-12.2) H 06/24/17 13:30 INR 1.3 06/24/17 13:30 APTT 67 SECONDS (21-34) H 06/24/17 13:30 - Constitutional Appears: No Acute Distress, Chronically Ill - Head Exam Head Exam: ATRAUMATIC, NORMAL INSPECTION - Eye Exam Eye Exam: EOMI, Normal appearance - Neck Exam Neck Exam: Normal Inspection. absent: Tenderness - Respiratory Exam Respiratory Exam: Rhonchi, NORMAL BREATHING PATTERN - Cardiovascular Exam Cardiovascular Exam: REGULAR RHYTHM, +S1 - GI/Abdominal Exam GI & Abdominal Exam: Soft. absent: Tenderness - Extremities Exam Extremities Exam: Pedal Edema. 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
[2017-06-29] MEDS: Cefepime IV 1 gm in Dextrose 1 GM/50 ML BAG IVPB SCH (17:17)
[2017-06-30] MEDS: (Novolin 70/30) NPH/Regular 70/30 Units/ml 10 ml vial SC SCH ×2 (08:29→17:08)
[2017-06-30] MEDS: (Novolog) Insulin Aspart, Recombinant 100 u/ml 10 ml vial SC SCH ×3 (08:30→17:08)
[2017-06-30] MEDS: Pantoprazole 40 mg EC Tab PO SCH (09:55)
[2017-06-30] MEDS: MethylPREDNISolone 40 mg Vial IVP SCH (09:56)
[2017-06-30] MEDS: guaiFENesin DM 200 mg-20 mg/10 ml UD PO PRN ×2 (09:56→17:10)
--- NOTE | 2017-06-30 12:42 | CP.PCM.PN ---
Subjective - Date & Time of Evaluation Date of Evaluation: 06/30/17 Time of Evaluation: 12:39 - Subjective Subjective: Feels better Less edematous no new labs phos elevated no CPs, n, v, f, chills Objective - Vital Signs/Intake and Output Vital Signs (last 24 hours): Temp Pulse Resp BP Pulse Ox 98.0 F 71 18 152/88 H 95 06/30/17 07:05 06/30/17 11:57 06/30/17 07:05 06/30/17 09:57 06/30/17 07:05 Intake and Output: 06/30/17 06/30/17 06:59 18:59 Intake Total 50 Output Total 300 Balance -250 - Medications Medications: Current Medications Albuterol/Ipratropium (Duoneb 3 Mg/0.5 Mg (3 Ml) Ud) 3 ml INH RQ6 PRN PRN Reason: Shortness of Breath Last Admin: 06/29/17 19:59 Dose: 3 ml Apixaban (Eliquis) 2.5 mg PO Q12 [facility] Last Admin: 06/30/17 09:56 Dose: 2.5 mg Aspirin (Aspirin Chewable) 81 mg PO DAILY [facility] Last Admin: 06/30/17 09:54 Dose: 81 mg Furosemide (Lasix) 40 mg IVP DAILY [facility] Last Admin: 06/30/17 09:57 Dose: 40 mg Guaifenesin/Dextromethorphan (Robitussin Dm) 10 ml PO Q6 PRN PRN Reason: Cough and congestion Last Admin: 06/30/17 09:56 Dose: 10 ml Cefepime HCl (Maxipime Iv 1 Gm Premix) 1 gm in 50 mls @ 100 mls/hr IVPB Q24H [facility] PRN Reason: Protocol Last Admin: 06/29/17 17:17 Dose: 100 mls/hr Insulin Aspart (Novolog) 12 unit SC ACTID [facility] Last Admin: 06/30/17 08:30 Dose: 12 unit Insulin Human Isoph/Insulin Regular (Novolin 70/30 (70/30 Units/Ml) 10 Ml) 20 units SC BIDAC [facility] Last Admin: 06/30/17 08:29 Dose: 20 units Methylprednisolone (Solu-Medrol) 20 mg IVP DAILY [facility] Stop: 07/02/17 10:01 Last Admin: 06/30/17 09:56 Dose: 20 mg Metoprolol Tartrate (Lopressor) 25 mg PO BID [facility] Last Admin: 06/30/17 09:57 Dose: 25 mg Montelukast Sodium (Singulair) 10 mg PO HS [facility] Last Admin: 06/29/17 21:53 Dose: 10 mg Pantoprazole Sodium (Protonix Ec Tab) 40 mg PO DAILY [facility] Last Admin: 06/30/17 09:55 Dose: 40 mg Rosuvastatin Calcium (Crestor) 5 mg PO HS [facility] Last Admin: 06/29/17 21:53 Dose: 5 mg Sitagliptin Phosphate (Januvia) 25 mg PO DAILY [facility] Last Admin: 06/30/17 09:54 Dose: 25 mg - Labs Labs: 06/29/17 07:15 06/29/17 07:15 PT 14.5 SECONDS (9.7-12.2) H 06/24/17 13:30 INR 1.3 06/24/17 13:30 APTT 67 SECONDS (21-34) H 06/24/17 13:30 - Constitutional Appears: Non-toxic, Chronically Ill - Head Exam Head Exam: ATRAUMATIC, NORMAL INSPECTION - Eye Exam Eye Exam: EOMI, Normal appearance - Respiratory Exam Respiratory Exam: Clear to Ausculation Bilateral, NORMAL BREATHING PATTERN - Cardiovascular Exam Cardiovascular Exam: REGULAR RHYTHM, +S1 - GI/Abdominal Exam GI & Abdominal Exam: Soft. absent: Tenderness - Extremities Exam Extremities Exam: Normal Inspection, Pedal Edema - Neurological Exam Neurological Exam: Awake, CN II-XII Intact - Skin Skin Exam: Dry, Warm Assessment and Plan (1) CKD stage 4 due to type 2 diabetes mellitus Status: Acute (2) Nephrotic syndrome Status: Acute (3) CO2 retention Status: Acute (4) COPD exacerbation Status: Acute (5) Hypoxia Status: Acute (6) CHF (congestive heart failure) Status: Acute - Assessment and Plan (Free Text) Plan: repeat labs lasix dose reduced add ca acetate
[2017-06-30] MEDS: Cefepime IV 1 gm in Dextrose 1 GM/50 ML BAG IVPB SCH (18:00)
[2017-06-30] MEDS: Albuterol-Ipratrop 3 mg / 0.5 (3 ml) UD INH PRN (19:32)
[2017-07-01 06:30] LABS: HEMOGLOBIN 13.6 g/dL (12.0-18.0); MEAN CELL VOLUME 80.4 fL (80.0-94.0); MEAN CORPUSCULAR HEMOGLOBIN 25.7 pg (27.0-31.0); MEAN PLATELET VOLUME 11.5 fL (7.2-11.7); RBC 5.27 Mil/uL (4.40-5.90); RED CELL DISTRIBUTION WIDTH 20.9 % (11.5-14.5); WHITE BLOOD COUNT 23.7 K/uL (4.8-10.8)
[2017-07-01 06:46] LABS: ALB/GLOB RATIO 0.8 (1.0-2.1); CALCIUM 8.4 mg/dl (8.6-10.4)
[2017-07-01] MEDS: (Novolin 70/30) NPH/Regular 70/30 Units/ml 10 ml vial SC SCH ×2 (08:30→17:46)
[2017-07-01] MEDS: (Novolog) Insulin Aspart, Recombinant 100 u/ml 10 ml vial SC SCH ×3 (08:30→17:46)
--- NOTE | 2017-07-01 09:58 | CP.PCM.PN ---
Subjective - Date & Time of Evaluation Date of Evaluation: 07/01/17 Time of Evaluation: 09:55 - Subjective Subjective: feels better edema much improved able to move around without SOB no fever/ chills/ chest pain ROS- as per HPI, other than that 10 point ROS negative Objective - Vital Signs/Intake and Output Vital Signs (last 24 hours): Temp Pulse Resp BP Pulse Ox 97.7 F 75 18 155/97 H 96 07/01/17 08:51 07/01/17 08:51 07/01/17 08:51 07/01/17 08:51 06/30/17 23:05 Intake and Output: 07/01/17 07/01/17 06:59 18:59 Intake Total 520 Balance 520 - Medications Medications: Current Medications Albuterol/Ipratropium (Duoneb 3 Mg/0.5 Mg (3 Ml) Ud) 3 ml INH RQ6 PRN PRN Reason: Shortness of Breath Last Admin: 06/30/17 19:32 Dose: 3 ml Apixaban (Eliquis) 2.5 mg PO Q12 [facility] Last Admin: 06/30/17 21:54 Dose: 2.5 mg Aspirin (Aspirin Chewable) 81 mg PO DAILY [facility] Last Admin: 06/30/17 09:54 Dose: 81 mg Calcium Acetate (Phoslo) 667 mg PO TIDCC [facility] Last Admin: 07/01/17 08:33 Dose: Not Given Furosemide (Lasix) 40 mg IVP DAILY [facility] Last Admin: 06/30/17 09:57 Dose: 40 mg Guaifenesin/Dextromethorphan (Robitussin Dm) 10 ml PO Q6 PRN PRN Reason: Cough and congestion Last Admin: 06/30/17 17:10 Dose: 10 ml Cefepime HCl (Maxipime Iv 1 Gm Premix) 1 gm in 50 mls @ 100 mls/hr IVPB Q24H [facility] PRN Reason: Protocol Last Admin: 06/30/17 18:00 Dose: 100 mls/hr Insulin Aspart (Novolog) 12 unit SC ACTID [facility] Last Admin: 07/01/17 08:30 Dose: 12 unit Insulin Human Isoph/Insulin Regular (Novolin 70/30 (70/30 Units/Ml) 10 Ml) 20 units SC BIDAC [facility] Last Admin: 04/14/18 08:30 Dose: 20 units Methylprednisolone (Solu-Medrol) 20 mg IVP DAILY [facility] Stop: 07/02/17 10:01 Last Admin: 06/30/17 09:56 Dose: 20 mg Metoprolol Tartrate (Lopressor) 25 mg PO BID [facility] Last Admin: 06/30/17 17:07 Dose: 25 mg Montelukast Sodium (Singulair) 10 mg PO HS [facility] Last Admin: 06/30/17 21:54 Dose: 10 mg Pantoprazole Sodium (Protonix Ec Tab) 40 mg PO DAILY [facility] Last Admin: 06/30/17 09:55 Dose: 40 mg Rosuvastatin Calcium (Crestor) 5 mg PO HS [facility] Last Admin: 06/30/17 21:54 Dose: 5 mg Sitagliptin Phosphate (Januvia) 25 mg PO DAILY [facility] Last Admin: 06/30/17 09:54 Dose: 25 mg - Labs Labs: 07/01/17 06:15 07/01/17 06:15 PT 14.5 SECONDS (9.7-12.2) H 06/24/17 13:30 INR 1.3 06/24/17 13:30 APTT 67 SECONDS (21-34) H 06/24/17 13:30 - Constitutional Appears: Well, Non-toxic - Head Exam Head Exam: ATRAUMATIC, NORMOCEPHALIC - Eye Exam Eye Exam: EOMI, PERRL - ENT Exam ENT Exam: Mucous Membranes Moist - Neck Exam Neck Exam: absent: Lymphadenopathy - Respiratory Exam Respiratory Exam: Clear to Ausculation Bilateral. absent: Rhonchi, Wheezes - Cardiovascular Exam Cardiovascular Exam: REGULAR RHYTHM, +S1, +S2 - GI/Abdominal Exam GI & Abdominal Exam: Soft. absent: Tenderness - Extremities Exam Extremities Exam: Pedal Edema. absent: Joint Swelling - Neurological Exam Neurological Exam: Alert, Awake, Oriented x3 - Psychiatric Exam Psychiatric exam: Normal Affect, Normal Mood - Skin Skin Exam: Normal Color, Warm Assessment and Plan (1) CKD stage 4 due to type 2 diabetes mellitus Status: Acute (2) Interstitial lung disease Status: Acute (3) Nephrotic syndrome Status: Acute (4) CHF (congestive heart failure) Status: Acute - Assessment and Plan (Free Text) Plan: volume status much improved cr slightly better today continue lasix fluid restriction
[2017-07-01] MEDS: Pantoprazole 40 mg EC Tab PO SCH (10:02)
[2017-07-01] MEDS: guaiFENesin DM 200 mg-20 mg/10 ml UD PO PRN ×2 (10:03→21:32)
[2017-07-01] MEDS: MethylPREDNISolone 40 mg Vial IVP SCH (10:03)
[2017-07-02] MEDS: (Novolin 70/30) NPH/Regular 70/30 Units/ml 10 ml vial SC SCH ×2 (08:30→17:36)
[2017-07-02] MEDS: (Novolog) Insulin Aspart, Recombinant 100 u/ml 10 ml vial SC SCH ×3 (08:31→17:37)
[2017-07-02] MEDS: Pantoprazole 40 mg EC Tab PO SCH (10:43)
[2017-07-02] MEDS: MethylPREDNISolone 40 mg Vial IVP SCH (10:43)
[2017-07-02] MEDS: guaiFENesin DM 200 mg-20 mg/10 ml UD PO PRN ×2 (10:47→16:42)
--- NOTE | 2017-07-02 17:25 | CP.PCM.PN ---
Subjective - Date & Time of Evaluation Date of Evaluation: 06/28/17 Time of Evaluation: 17:24 - Subjective Subjective: Patient is still having some headache, and cough noted. Using BiPAP. The left leg swelling stable. DVT study negative. Patient is on anticoagulation Vital signs stable. Chest good air entry, bilateral rales and wheezing noted The left heart sound Abdomen soft nontender Edema bilaterally noted Labs reviewed in Assessment/recommendation: 46 male with a history of multiple medical problems admitted with acute fluid overload, acute worsening pneumonia, with exacerbation of bronchitis Patient was on antibiotic, one more day. Discontinue Glucose control. Renal insufficiency worsening, nephrology follow-up and will follow-up the patient Objective - Vital Signs/Intake and Output Vital Signs (last 24 hours): Temp Pulse Resp BP Pulse Ox 98.8 F 83 20 130/76 95 07/02/17 16:14 07/02/17 16:14 07/02/17 16:14 07/02/17 17:22 07/02/17 16:14 Intake and Output: 07/02/17 07/02/17 06:59 18:59 Intake Total 150 600 Output Total 950 600 Balance -800 0 - Medications Medications: Current Medications Albuterol/Ipratropium (Duoneb 3 Mg/0.5 Mg (3 Ml) Ud) 3 ml INH RQ6 PRN PRN Reason: Shortness of Breath Last Admin: 06/30/17 19:32 Dose: 3 ml Apixaban (Eliquis) 2.5 mg PO Q12 [facility] Last Admin: 07/02/17 10:47 Dose: 2.5 mg Aspirin (Aspirin Chewable) 81 mg PO DAILY [facility] Last Admin: 07/02/17 10:43 Dose: 81 mg Calcium Acetate (Phoslo) 667 mg PO TIDCC [facility] Last Admin: 07/02/17 12:20 Dose: Not Given Furosemide (Lasix) 40 mg IVP DAILY [facility] Last Admin: 07/02/17 10:44 Dose: 40 mg Guaifenesin/Dextromethorphan (Robitussin Dm) 10 ml PO Q6 PRN PRN Reason: Cough and congestion Last Admin: 07/02/17 16:42 Dose: 10 ml Insulin Aspart (Novolog) 12 unit SC ACTID [facility] Last Admin: 07/02/17 12:20 Dose: 12 unit Insulin Human Isoph/Insulin Regular (Novolin 70/30 (70/30 Units/Ml) 10 Ml) 20 units SC BIDAC [facility] Last Admin: 07/02/17 08:30 Dose: 20 units Metoprolol Tartrate (Lopressor) 25 mg PO BID [facility] Last Admin: 07/02/17 17:22 Dose: 25 mg Montelukast Sodium (Singulair) 10 mg PO HS [facility] Last Admin: 07/01/17 21:24 Dose: 10 mg Pantoprazole Sodium (Protonix Ec Tab) 40 mg PO DAILY [facility] Last Admin: 07/02/17 10:43 Dose: 40 mg Rosuvastatin Calcium (Crestor) 5 mg PO HS [facility] Last Admin: 07/01/17 21:25 Dose: 5 mg Sitagliptin Phosphate (Januvia) 25 mg PO DAILY [facility] Last Admin: 07/02/17 10:46 Dose: 25 mg - Labs Labs: 07/01/17 06:15 07/01/17 06:15 PT 14.5 SECONDS (9.7-12.2) H 06/24/17 13:30 INR 1.3 06/24/17 13:30 APTT 67 SECONDS (21-34) H 06/24/17 13:30
--- NOTE | 2017-07-02 17:26 | CP.PCM.PN ---
Subjective - Date & Time of Evaluation Date of Evaluation: 06/30/17 Time of Evaluation: 17:26 - Subjective Subjective: Patient is still having some headache, and cough noted. Using BiPAP. The left leg swelling stable. DVT study negative. Patient is on anticoagulation Vital signs stable. Chest good air entry, bilateral rales and wheezing noted The left heart sound Abdomen soft nontender Edema bilaterally noted Labs reviewed Assessment/recommendation: 46 male with a history of multiple medical problems admitted with acute fluid overload, acute worsening pneumonia, with exacerbation of bronchitis Patient was on antibiotic Discontinue Glucose control. Renal insufficiency worsening, nephrology follow-up and will follow-up the patient Objective - Vital Signs/Intake and Output Vital Signs (last 24 hours): Temp Pulse Resp BP Pulse Ox 98.8 F 83 20 130/76 95 07/02/17 16:14 07/02/17 16:14 07/02/17 16:14 07/02/17 17:22 07/02/17 16:14 Intake and Output: 07/02/17 07/02/17 06:59 18:59 Intake Total 150 600 Output Total 950 600 Balance -800 0 - Medications Medications: Current Medications Albuterol/Ipratropium (Duoneb 3 Mg/0.5 Mg (3 Ml) Ud) 3 ml INH RQ6 PRN PRN Reason: Shortness of Breath Last Admin: 06/30/17 19:32 Dose: 3 ml Apixaban (Eliquis) 2.5 mg PO Q12 [facility] Last Admin: 07/02/17 10:47 Dose: 2.5 mg Aspirin (Aspirin Chewable) 81 mg PO DAILY [facility] Last Admin: 07/02/17 10:43 Dose: 81 mg Calcium Acetate (Phoslo) 667 mg PO TIDCC [facility] Last Admin: 07/02/17 12:20 Dose: Not Given Furosemide (Lasix) 40 mg IVP DAILY [facility] Last Admin: 07/02/17 10:44 Dose: 40 mg Guaifenesin/Dextromethorphan (Robitussin Dm) 10 ml PO Q6 PRN PRN Reason: Cough and congestion Last Admin: 07/02/17 16:42 Dose: 10 ml Insulin Aspart (Novolog) 12 unit SC ACTID [facility] Last Admin: 07/02/17 12:20 Dose: 12 unit Insulin Human Isoph/Insulin Regular (Novolin 70/30 (70/30 Units/Ml) 10 Ml) 20 units SC BIDAC [facility] Last Admin: 07/02/17 08:30 Dose: 20 units Metoprolol Tartrate (Lopressor) 25 mg PO BID [facility] Last Admin: 07/02/17 17:22 Dose: 25 mg Montelukast Sodium (Singulair) 10 mg PO HS [facility] Last Admin: 07/01/17 21:24 Dose: 10 mg Pantoprazole Sodium (Protonix Ec Tab) 40 mg PO DAILY [facility] Last Admin: 07/02/17 10:43 Dose: 40 mg Rosuvastatin Calcium (Crestor) 5 mg PO HS [facility] Last Admin: 07/01/17 21:25 Dose: 5 mg Sitagliptin Phosphate (Januvia) 25 mg PO DAILY [facility] Last Admin: 07/02/17 10:46 Dose: 25 mg - Labs Labs: 07/01/17 06:15 07/01/17 06:15 PT 14.5 SECONDS (9.7-12.2) H 06/24/17 13:30 INR 1.3 06/24/17 13:30 APTT 67 SECONDS (21-34) H 06/24/17 13:30
--- NOTE | 2017-07-02 17:26 | CP.PCM.PN ---
Subjective - Date & Time of Evaluation Date of Evaluation: 06/29/17 Time of Evaluation: 17:25 - Subjective Subjective: Patient is still having some headache, and cough noted. Using BiPAP. The left leg swelling stable. DVT study negative. Patient is on anticoagulation Vital signs stable. Chest good air entry, bilateral rales and wheezing noted The left heart sound Abdomen soft nontender Edema bilaterally noted Labs reviewed in Assessment/recommendation: 46 male with a history of multiple medical problems admitted with acute fluid overload, acute worsening pneumonia, with exacerbation of bronchitis Patient was on antibiotic, one more day. Discontinue Glucose control. Renal insufficiency worsening, nephrology follow-up and will follow-up the patient Objective - Vital Signs/Intake and Output Vital Signs (last 24 hours): Temp Pulse Resp BP Pulse Ox 98.8 F 83 20 130/76 95 07/02/17 16:14 07/02/17 16:14 07/02/17 16:14 07/02/17 17:22 07/02/17 16:14 Intake and Output: 07/02/17 07/02/17 06:59 18:59 Intake Total 150 600 Output Total 950 600 Balance -800 0 - Medications Medications: Current Medications Albuterol/Ipratropium (Duoneb 3 Mg/0.5 Mg (3 Ml) Ud) 3 ml INH RQ6 PRN PRN Reason: Shortness of Breath Last Admin: 06/30/17 19:32 Dose: 3 ml Apixaban (Eliquis) 2.5 mg PO Q12 [facility] Last Admin: 07/02/17 10:47 Dose: 2.5 mg Aspirin (Aspirin Chewable) 81 mg PO DAILY [facility] Last Admin: 07/02/17 10:43 Dose: 81 mg Calcium Acetate (Phoslo) 667 mg PO TIDCC [facility] Last Admin: 07/02/17 12:20 Dose: Not Given Furosemide (Lasix) 40 mg IVP DAILY [facility] Last Admin: 07/02/17 10:44 Dose: 40 mg Guaifenesin/Dextromethorphan (Robitussin Dm) 10 ml PO Q6 PRN PRN Reason: Cough and congestion Last Admin: 07/02/17 16:42 Dose: 10 ml Insulin Aspart (Novolog) 12 unit SC ACTID [facility] Last Admin: 07/02/17 12:20 Dose: 12 unit Insulin Human Isoph/Insulin Regular (Novolin 70/30 (70/30 Units/Ml) 10 Ml) 20 units SC BIDAC [facility] Last Admin: 07/02/17 08:30 Dose: 20 units Metoprolol Tartrate (Lopressor) 25 mg PO BID [facility] Last Admin: 07/02/17 17:22 Dose: 25 mg Montelukast Sodium (Singulair) 10 mg PO HS [facility] Last Admin: 07/01/17 21:24 Dose: 10 mg Pantoprazole Sodium (Protonix Ec Tab) 40 mg PO DAILY [facility] Last Admin: 07/02/17 10:43 Dose: 40 mg Rosuvastatin Calcium (Crestor) 5 mg PO HS [facility] Last Admin: 07/01/17 21:25 Dose: 5 mg Sitagliptin Phosphate (Januvia) 25 mg PO DAILY [facility] Last Admin: 07/02/17 10:46 Dose: 25 mg - Labs Labs: 07/01/17 06:15 07/01/17 06:15 PT 14.5 SECONDS (9.7-12.2) H 06/24/17 13:30 INR 1.3 06/24/17 13:30 APTT 67 SECONDS (21-34) H 06/24/17 13:30
--- NOTE | 2017-07-02 17:27 | CP.PCM.PN ---
Subjective - Date & Time of Evaluation Date of Evaluation: 07/01/17 Time of Evaluation: 17:26 - Subjective Subjective: Patient is still having some headache, and cough noted. Using BiPAP. The left leg swelling stable. DVT study negative. Patient is on anticoagulation Vital signs stable. Chest good air entry, bilateral rales and wheezing noted The left heart sound Abdomen soft nontender Edema bilaterally noted Labs reviewed in Assessment/recommendation: 46 male with a history of multiple medical problems admitted with acute fluid overload, acute worsening pneumonia, with exacerbation of bronchitis off antibiotic Glucose control. Renal insufficiency worsening, nephrology follow-up and will follow-up the patient Objective - Vital Signs/Intake and Output Vital Signs (last 24 hours): Temp Pulse Resp BP Pulse Ox 98.8 F 83 20 130/76 95 07/02/17 16:14 07/02/17 16:14 07/02/17 16:14 07/02/17 17:22 07/02/17 16:14 Intake and Output: 07/02/17 07/02/17 06:59 18:59 Intake Total 150 600 Output Total 950 600 Balance -800 0 - Medications Medications: Current Medications Albuterol/Ipratropium (Duoneb 3 Mg/0.5 Mg (3 Ml) Ud) 3 ml INH RQ6 PRN PRN Reason: Shortness of Breath Last Admin: 06/30/17 19:32 Dose: 3 ml Apixaban (Eliquis) 2.5 mg PO Q12 REPLACED BY [facility] Last Admin: 07/02/17 10:47 Dose: 2.5 mg Aspirin (Aspirin Chewable) 81 mg PO DAILY REPLACED BY [facility] Last Admin: 07/02/17 10:43 Dose: 81 mg Calcium Acetate (Phoslo) 667 mg PO TIDCC REPLACED BY [facility] Last Admin: 07/02/17 12:20 Dose: Not Given Furosemide (Lasix) 40 mg IVP DAILY REPL[facility]ED BY [facility] Last Admin: 07/02/17 10:44 Dose: 40 mg Guaifenesin/Dextromethorphan (Robitussin Dm) 10 ml PO Q6 PRN PRN Reason: Cough and congestion Last Admin: 07/02/17 16:42 Dose: 10 ml Insulin Aspart (Novolog) 12 unit SC ACTID REPLACED BY [facility] Last Admin: 07/02/17 12:20 Dose: 12 unit Insulin Human Isoph/Insulin Regular (Novolin 70/30 (70/30 Units/Ml) 10 Ml) 20 units SC BIDAC REPLACED BY [facility] Last Admin: 07/02/17 08:30 Dose: 20 units Metoprolol Tartrate (Lopressor) 25 mg PO BID REPL[facility]ED BY [facility] Last Admin: 07/02/17 17:22 Dose: 25 mg Montelukast Sodium (Singulair) 10 mg PO HS REPLACED BY [facility] Last Admin: 07/01/17 21:24 Dose: 10 mg Pantoprazole Sodium (Protonix Ec Tab) 40 mg PO DAILY [facility]PL[facility]ED BY [facility] Last Admin: 07/02/17 10:43 Dose: 40 mg Rosuvastatin Calcium (Crestor) 5 mg PO HS REPLACED BY [facility] Last Admin: 07/01/17 21:25 Dose: 5 mg Sitagliptin Phosphate (Januvia) 25 mg PO DAILY REPL[facility]ED BY [facility] Last Admin: 07/02/17 10:46 Dose: 25 mg - Labs Labs: 07/01/17 06:15 07/01/17 06:15 PT 14.5 SECONDS (9.7-12.2) H 06/24/17 13:30 INR 1.3 06/24/17 13:30 APTT 67 SECONDS (21-34) H 06/24/17 13:30
--- NOTE | 2017-07-02 17:28 | CP.PCM.PN ---
Subjective - Date & Time of Evaluation Date of Evaluation: 07/02/17 Time of Evaluation: 17:27 - Subjective Subjective: Complaining ofof minimal cough Headache noted patient is eating well Leg swelling noted No nausea, no vomiting Vital signs stable. Chest good air entry, bilateral rales and wheezing noted The left heart sound Abdomen soft nontender Edema bilaterally noted No recent labs Assessment/recommendation: 46 male with a history of multiple medical problems admitted with acute fluid overload, acute worsening pneumonia, with exacerbation of bronchitis Patient was on antibiotic, one more day. Discontinue Glucose control. Renal insufficiency worsening, nephrology follow-up and will follow-up the patient Will repeat the labs tomorrow. Continue the bronchodilators Physical therapy Possible discharge plan tomorrow if white count is normal Objective - Vital Signs/Intake and Output Vital Signs (last 24 hours): Temp Pulse Resp BP Pulse Ox 98.8 F 83 20 130/76 95 07/02/17 16:14 07/02/17 16:14 07/02/17 16:14 07/02/17 17:22 07/02/17 16:14 Intake and Output: 07/02/17 07/02/17 06:59 18:59 Intake Total 150 600 Output Total 950 600 Balance -800 0 - Medications Medications: Current Medications Albuterol/Ipratropium (Duoneb 3 Mg/0.5 Mg (3 Ml) Ud) 3 ml INH RQ6 PRN PRN Reason: Shortness of Breath Last Admin: 06/30/17 19:32 Dose: 3 ml Apixaban (Eliquis) 2.5 mg PO Q12 [facility] Last Admin: 07/02/17 10:47 Dose: 2.5 mg Aspirin (Aspirin Chewable) 81 mg PO DAILY [facility] Last Admin: 07/02/17 10:43 Dose: 81 mg Calcium Acetate (Phoslo) 667 mg PO TIDCC [facility] Last Admin: 07/02/17 12:20 Dose: Not Given Furosemide (Lasix) 40 mg IVP DAILY [facility] Last Admin: 07/02/17 10:44 Dose: 40 mg Guaifenesin/Dextromethorphan (Robitussin Dm) 10 ml PO Q6 PRN PRN Reason: Cough and congestion Last Admin: 07/02/17 16:42 Dose: 10 ml Insulin Aspart (Novolog) 12 unit SC ACTID [facility] Last Admin: 07/02/17 12:20 Dose: 12 unit Insulin Human Isoph/Insulin Regular (Novolin 70/30 (70/30 Units/Ml) 10 Ml) 20 units SC BIDAC [facility] Last Admin: 07/02/17 08:30 Dose: 20 units Metoprolol Tartrate (Lopressor) 25 mg PO BID [facility] Last Admin: 07/02/17 17:22 Dose: 25 mg Montelukast Sodium (Singulair) 10 mg PO HS [facility] Last Admin: 07/01/17 21:24 Dose: 10 mg Pantoprazole Sodium (Protonix Ec Tab) 40 mg PO DAILY [facility] Last Admin: 07/02/17 10:43 Dose: 40 mg Rosuvastatin Calcium (Crestor) 5 mg PO HS [facility] Last Admin: 07/01/17 21:25 Dose: 5 mg Sitagliptin Phosphate (Januvia) 25 mg PO DAILY [facility] Last Admin: 07/02/17 10:46 Dose: 25 mg - Labs Labs: 07/01/17 06:15 07/01/17 06:15 PT 14.5 SECONDS (9.7-12.2) H 06/24/17 13:30 INR 1.3 06/24/17 13:30 APTT 67 SECONDS (21-34) H 06/24/17 13:30
--- NOTE | 2017-07-02 22:13 | CARD ---
APPROVED REPORT EKG Measurement Heart [id number] <Conclusion> Sinus tachycardia with occasional premature ventricular complexes Right bundle branch block T wave abnormality, consider lateral ischemia Abnormal ECG
[2017-07-03 06:49] LABS: BASO # 0.3 K/uL (0.0-0.2); EOS # 0.5 K/uL (0.0-0.7); EOS % 2.1 % (0.0-4.0); HEMOGLOBIN 13.6 g/dL (12.0-18.0); LYMPH # 4.9 K/uL (1.0-4.3); LYMPH % 19.4 % (20.0-40.0); MEAN CELL VOLUME 80.4 fL (80.0-94.0); MEAN CORPUSCULAR HEMOGLOBIN 25.7 pg (27.0-31.0); MEAN PLATELET VOLUME 11.5 fL (7.2-11.7); MONO % 7.7 % (0.0-10.0); NEUT # 17.7 K/uL (1.8-7.0); NEUT % 69.8 % (50.0-75.0); NRBC % 0.2 % (0.0-2.0); RBC 5.3 Mil/uL (4.40-5.90); RED CELL DISTRIBUTION WIDTH 21.3 % (11.5-14.5); WHITE BLOOD COUNT 25.4 K/uL (4.8-10.8)
[2017-07-03] MEDS: (Novolog) Insulin Aspart, Recombinant 100 u/ml 10 ml vial SC SCH ×3 (07:56→17:11)
[2017-07-03] MEDS: (Novolin 70/30) NPH/Regular 70/30 Units/ml 10 ml vial SC SCH ×2 (07:57→17:12)
[2017-07-03 08:16] LABS: ALB/GLOB RATIO 0.8 (1.0-2.1); ALBUMIN 2.7 g/dL (3.5-5.0); CALCIUM 8.2 mg/dl (8.6-10.4)
[2017-07-03] MEDS: Pantoprazole 40 mg EC Tab PO SCH (09:54)
--- NOTE | 2017-07-03 13:03 | CP.PCM.PN ---
Subjective - Date & Time of Evaluation Date of Evaluation: 07/03/17 Time of Evaluation: 12:59 - Subjective Subjective: feels much better HENRIQUE resolving still with LE edema- on IV lasix still phos better- can stop phoslo BP controlled less SOB, no n,v, diarrhea,f, chills Objective - Vital Signs/Intake and Output Vital Signs (last 24 hours): Temp Pulse Resp BP Pulse Ox 97.6 F 68 20 146/86 97 07/03/17 02:05 07/03/17 07:02 07/03/17 02:05 07/03/17 09:54 07/03/17 02:05 - Medications Medications: Current Medications Albuterol/Ipratropium (Duoneb 3 Mg/0.5 Mg (3 Ml) Ud) 3 ml INH RQ6 PRN PRN Reason: Shortness of Breath Last Admin: 06/30/17 19:32 Dose: 3 ml Apixaban (Eliquis) 2.5 mg PO Q12 [facility] Last Admin: 07/03/17 09:54 Dose: 2.5 mg Aspirin (Aspirin Chewable) 81 mg PO DAILY [facility] Last Admin: 07/03/17 09:54 Dose: 81 mg Calcium Acetate (Phoslo) 667 mg PO TIDCC [facility] Last Admin: 07/03/17 12:57 Dose: Not Given Furosemide (Lasix) 40 mg IVP DAILY [facility] Last Admin: 07/03/17 09:54 Dose: 40 mg Guaifenesin/Dextromethorphan (Robitussin Dm) 10 ml PO Q6 PRN PRN Reason: Cough and congestion Last Admin: 07/02/17 16:42 Dose: 10 ml Insulin Aspart (Novolog) 12 unit SC ACTID [facility] Last Admin: 07/03/17 07:56 Dose: 12 unit Insulin Human Isoph/Insulin Regular (Novolin 70/30 (70/30 Units/Ml) 10 Ml) 20 units SC BIDAC [facility] Last Admin: 07/03/17 07:57 Dose: 20 units Metoprolol Tartrate (Lopressor) 25 mg PO BID [facility] Last Admin: 07/03/17 09:54 Dose: 25 mg Montelukast Sodium (Singulair) 10 mg PO HS [facility] Last Admin: 07/02/17 21:38 Dose: 10 mg Pantoprazole Sodium (Protonix Ec Tab) 40 mg PO DAILY [facility] Last Admin: 07/03/17 09:54 Dose: 40 mg Rosuvastatin Calcium (Crestor) 5 mg PO HS [facility] Last Admin: 07/02/17 21:38 Dose: 5 mg Sitagliptin Phosphate (Januvia) 25 mg PO DAILY [facility] Last Admin: 07/03/17 09:54 Dose: 25 mg - Labs Labs: 07/03/17 06:39 07/03/17 06:39 PT 14.5 SECONDS (9.7-12.2) H 06/24/17 13:30 INR 1.3 06/24/17 13:30 APTT 67 SECONDS (21-34) H 06/24/17 13:30 - Constitutional Appears: No Acute Distress, Chronically Ill - Head Exam Head Exam: ATRAUMATIC, NORMAL INSPECTION - Eye Exam Eye Exam: EOMI, Normal appearance - Neck Exam Neck Exam: Normal Inspection. absent: Tenderness - Respiratory Exam Respiratory Exam: Rhonchi, NORMAL BREATHING PATTERN - Cardiovascular Exam Cardiovascular Exam: REGULAR RHYTHM, +S1 - Extremities Exam Extremities Exam: Pedal Edema. absent: Tenderness - Neurological Exam Neurological Exam: Awake, CN II-XII Intact - Skin Skin Exam: Dry, Warm Assessment and Plan (1) CKD stage 4 due to type 2 diabetes mellitus Status: Acute (2) Nephrotic syndrome Status: Acute (3) CO2 retention Status: Acute (4) COPD exacerbation Status: Acute (5) Hypoxia Status: Acute (6) CHF (congestive heart failure) Status: Acute - Assessment and Plan (Free Text) Plan: stop phoslo when ready for discharge would make lasix 80 mg po daily
--- NOTE | 2017-07-03 13:34 | RAD ---
HISTORY: pneumonia COMPARISON: 06/25/2017 FINDINGS: LUNGS: Examination limited due to patient body habitus. No focal consolidation. PLEURA: No significant pleural effusion identified, no pneumothorax apparent. CARDIOVASCULAR: Mild cardiomegaly. This may be artifactual given portable technique. OSSEOUS STRUCTURES: No significant abnormalities. VISUALIZED UPPER ABDOMEN: Normal. OTHER FINDINGS: None. IMPRESSION: No active disease.
[2017-07-04] MEDS: (Novolin 70/30) NPH/Regular 70/30 Units/ml 10 ml vial SC SCH ×2 (07:54→17:26)
[2017-07-04] MEDS: (Novolog) Insulin Aspart, Recombinant 100 u/ml 10 ml vial SC SCH ×3 (07:54→17:26)
--- NOTE | 2017-07-04 07:59 | CP.PCM.PN ---
Subjective - Date & Time of Evaluation Date of Evaluation: 07/03/17 Objective - Vital Signs/Intake and Output Vital Signs (last 24 hours): Temp Pulse Resp BP Pulse Ox 97.9 F 83 18 147/87 96 07/04/17 07:00 07/04/17 07:00 07/04/17 07:00 07/04/17 07:00 07/04/17 07:00 Intake and Output: 07/04/17 07/04/17 06:59 18:59 Output Total 700 Balance -700 - Medications Medications: Current Medications Albuterol/Ipratropium (Duoneb 3 Mg/0.5 Mg (3 Ml) Ud) 3 ml INH RQ6 PRN PRN Reason: Shortness of Breath Last Admin: 06/30/17 19:32 Dose: 3 ml Apixaban (Eliquis) 2.5 mg PO Q12 [facility] Last Admin: 07/03/17 21:12 Dose: 2.5 mg Aspirin (Aspirin Chewable) 81 mg PO DAILY [facility] Last Admin: 07/03/17 09:54 Dose: 81 mg Furosemide (Lasix) 40 mg IVP DAILY [facility] Last Admin: 07/03/17 09:54 Dose: 40 mg Guaifenesin/Dextromethorphan (Robitussin Dm) 10 ml PO Q6 PRN PRN Reason: Cough and congestion Last Admin: 07/02/17 16:42 Dose: 10 ml Insulin Aspart (Novolog) 12 unit SC ACTID [facility] Last Admin: 07/04/17 07:54 Dose: 12 unit Insulin Human Isoph/Insulin Regular (Novolin 70/30 (70/30 Units/Ml) 10 Ml) 20 units SC BIDAC [facility] Last Admin: 07/04/17 07:54 Dose: 20 units Metoprolol Tartrate (Lopressor) 25 mg PO BID [facility] Last Admin: 07/03/17 17:11 Dose: 25 mg Montelukast Sodium (Singulair) 10 mg PO HS [facility] Last Admin: 07/03/17 21:12 Dose: 10 mg Pantoprazole Sodium (Protonix Ec Tab) 40 mg PO DAILY [facility] Last Admin: 07/03/17 09:54 Dose: 40 mg Rosuvastatin Calcium (Crestor) 5 mg PO HS [facility] Last Admin: 07/03/17 21:12 Dose: 5 mg Sitagliptin Phosphate (Januvia) 25 mg PO DAILY [facility] Last Admin: 07/03/17 09:54 Dose: 25 mg - Labs Labs: 07/03/17 06:39 07/03/17 06:39 PT 14.5 SECONDS (9.7-12.2) H 06/24/17 13:30 INR 1.3 06/24/17 13:30 APTT 67 SECONDS (21-34) H 06/24/17 13:30
--- NOTE | 2017-07-04 08:02 | CP.PCM.PN ---
Subjective - Date & Time of Evaluation Date of Evaluation: 07/04/17 Objective - Vital Signs/Intake and Output Vital Signs (last 24 hours): Temp Pulse Resp BP Pulse Ox 97.9 F 83 18 147/87 96 07/04/17 07:00 07/04/17 07:00 07/04/17 07:00 07/04/17 07:00 07/04/17 07:00 Intake and Output: 07/04/17 07/04/17 06:59 18:59 Output Total 700 Balance -700 - Medications Medications: Current Medications Albuterol/Ipratropium (Duoneb 3 Mg/0.5 Mg (3 Ml) Ud) 3 ml INH RQ6 PRN PRN Reason: Shortness of Breath Last Admin: 06/30/17 19:32 Dose: 3 ml Apixaban (Eliquis) 2.5 mg PO Q12 [facility] Last Admin: 07/03/17 21:12 Dose: 2.5 mg Aspirin (Aspirin Chewable) 81 mg PO DAILY [facility] Last Admin: 07/03/17 09:54 Dose: 81 mg Furosemide (Lasix) 40 mg IVP DAILY [facility] Last Admin: 07/03/17 09:54 Dose: 40 mg Guaifenesin/Dextromethorphan (Robitussin Dm) 10 ml PO Q6 PRN PRN Reason: Cough and congestion Last Admin: 07/02/17 16:42 Dose: 10 ml Insulin Aspart (Novolog) 12 unit SC ACTID [facility] Last Admin: 07/04/17 07:54 Dose: 12 unit Insulin Human Isoph/Insulin Regular (Novolin 70/30 (70/30 Units/Ml) 10 Ml) 20 units SC BIDAC [facility] Last Admin: 07/04/17 07:54 Dose: 20 units Metoprolol Tartrate (Lopressor) 25 mg PO BID [facility] Last Admin: 07/03/17 17:11 Dose: 25 mg Montelukast Sodium (Singulair) 10 mg PO HS [facility] Last Admin: 07/03/17 21:12 Dose: 10 mg Pantoprazole Sodium (Protonix Ec Tab) 40 mg PO DAILY [facility] Last Admin: 07/03/17 09:54 Dose: 40 mg Rosuvastatin Calcium (Crestor) 5 mg PO HS [facility] Last Admin: 07/03/17 21:12 Dose: 5 mg Sitagliptin Phosphate (Januvia) 25 mg PO DAILY [facility] Last Admin: 07/03/17 09:54 Dose: 25 mg - Labs Labs: 07/03/17 06:39 07/03/17 06:39 PT 14.5 SECONDS (9.7-12.2) H 06/24/17 13:30 INR 1.3 06/24/17 13:30 APTT 67 SECONDS (21-34) H 06/24/17 13:30
[2017-07-04 08:16] LABS: BASO # 0.3 K/uL (0.0-0.2); BASO % 1.3 % (0.0-2.0); EOS # 1.4 K/uL (0.0-0.7); EOS % 6.5 % (0.0-4.0); HEMOGLOBIN 13.3 g/dL (12.0-18.0); LYMPH # 3.9 K/uL (1.0-4.3); LYMPH % 18.4 % (20.0-40.0); MEAN CELL VOLUME 80.5 fL (80.0-94.0); MEAN CORPUSCULAR HGB CONC 32.4 g/dL (33.0-37.0); MEAN PLATELET VOLUME 10.6 fL (7.2-11.7); MONO # 1.5 K/uL (0.0-0.8); MONO % 7.2 % (0.0-10.0); NEUT # 14.1 K/uL (1.8-7.0); NEUT % 66.6 % (50.0-75.0); NRBC % 0.2 % (0.0-2.0); RBC 5.12 Mil/uL (4.40-5.90); RED CELL DISTRIBUTION WIDTH 21.3 % (11.5-14.5); WHITE BLOOD COUNT 21.1 K/uL (4.8-10.8)
[2017-07-04] MEDS: Pantoprazole 40 mg EC Tab PO SCH (09:21)
--- NOTE | 2017-07-04 13:28 | CP.PCM.PN ---
Subjective - Date & Time of Evaluation Date of Evaluation: 07/04/17 Time of Evaluation: 13:28 - Subjective Subjective: seen and examined no labs today sleeping comfortably in bed, off cpap no cp/dizziness/n/v/d/fevers/chills/rash Objective - Vital Signs/Intake and Output Vital Signs (last 24 hours): Temp Pulse Resp BP Pulse Ox 97.9 F 80 18 155/83 H 96 07/04/17 07:00 07/04/17 12:17 07/04/17 07:00 07/04/17 09:21 07/04/17 07:00 Intake and Output: 07/04/17 07/04/17 06:59 18:59 Output Total 700 Balance -700 - Medications Medications: Current Medications Albuterol/Ipratropium (Duoneb 3 Mg/0.5 Mg (3 Ml) Ud) 3 ml INH RQ6 PRN PRN Reason: Shortness of Breath Last Admin: 06/30/17 19:32 Dose: 3 ml Apixaban (Eliquis) 2.5 mg PO Q12 [facility] Last Admin: 07/04/17 09:21 Dose: 2.5 mg Aspirin (Aspirin Chewable) 81 mg PO DAILY [facility] Last Admin: 07/04/17 09:33 Dose: 81 mg Furosemide (Lasix) 40 mg IVP DAILY [facility] Last Admin: 07/04/17 09:21 Dose: 40 mg Guaifenesin/Dextromethorphan (Robitussin Dm) 10 ml PO Q6 PRN PRN Reason: Cough and congestion Last Admin: 07/02/17 16:42 Dose: 10 ml Insulin Aspart (Novolog) 12 unit SC ACTID [facility] Last Admin: 07/04/17 11:36 Dose: 12 unit Insulin Human Isoph/Insulin Regular (Novolin 70/30 (70/30 Units/Ml) 10 Ml) 20 units SC BIDAC [facility] Last Admin: 07/04/17 07:54 Dose: 20 units Metoprolol Tartrate (Lopressor) 25 mg PO BID [facility] Last Admin: 07/04/17 09:21 Dose: 25 mg Montelukast Sodium (Singulair) 10 mg PO HS [facility] Last Admin: 07/03/17 21:12 Dose: 10 mg Pantoprazole Sodium (Protonix Ec Tab) 40 mg PO DAILY [facility] Last Admin: 07/04/17 09:21 Dose: 40 mg Rosuvastatin Calcium (Crestor) 5 mg PO HS [facility] Last Admin: 07/03/17 21:12 Dose: 5 mg Sitagliptin Phosphate (Januvia) 25 mg PO DAILY [facility] Last Admin: 07/04/17 09:20 Dose: 25 mg - Labs Labs: 07/04/17 08:12 07/03/17 06:39 PT 14.5 SECONDS (9.7-12.2) H 06/24/17 13:30 INR 1.3 06/24/17 13:30 APTT 67 SECONDS (21-34) H 06/24/17 13:30 - Constitutional Appears: No Acute Distress, Chronically Ill (obese) - Head Exam Head Exam: NORMAL INSPECTION, NORMOCEPHALIC - Eye Exam Eye Exam: Normal appearance, PERRL - ENT Exam ENT Exam: Mucous Membranes Moist, Normal Exam - Neck Exam Neck Exam: Normal Inspection - Respiratory Exam Respiratory Exam: Decreased Breath Sounds, NORMAL BREATHING PATTERN - Cardiovascular Exam Cardiovascular Exam: REGULAR RHYTHM, RRR - GI/Abdominal Exam GI & Abdominal Exam: Distended, Soft, Diminished Bowel Sounds - Extremities Exam Extremities Exam: Normal Inspection, Pedal Edema (4+) - Neurological Exam Neurological Exam: Alert, Awake, Oriented x3 - Psychiatric Exam Psychiatric exam: Normal Affect, Normal Mood - Skin Skin Exam: Intact, Warm Assessment and Plan (1) CKD stage 4 due to type 2 diabetes mellitus Status: Acute (2) CO2 retention Status: Acute (3) COPD exacerbation Status: Acute (4) Nephrotic syndrome Status: Acute - Assessment and Plan (Free Text) Assessment: resolving jeff maintain iv lasix check urine culture
[2017-07-05] MEDS: (Novolog) Insulin Aspart, Recombinant 100 u/ml 10 ml vial SC SCH ×3 (07:17→16:35)
[2017-07-05] MEDS: (Novolin 70/30) NPH/Regular 70/30 Units/ml 10 ml vial SC SCH ×2 (08:05→16:36)
[2017-07-05 08:10] LABS: CALCIUM 7.8 mg/dl (8.6-10.4)
[2017-07-05] MEDS: guaiFENesin DM 200 mg-20 mg/10 ml UD PO PRN (09:52)
[2017-07-05] MEDS: Pantoprazole 40 mg EC Tab PO SCH (09:52)
[2017-07-05 11:04] LABS: HEMOGLOBIN 12.3 g/dL (12.0-18.0); MEAN CELL VOLUME 80.4 fL (80.0-94.0); MEAN CORPUSCULAR HEMOGLOBIN 25.6 pg (27.0-31.0); MEAN CORPUSCULAR HGB CONC 31.8 g/dL (33.0-37.0); MEAN PLATELET VOLUME 11.8 fL (7.2-11.7); RBC 4.83 Mil/uL (4.40-5.90); RED CELL DISTRIBUTION WIDTH 21.3 % (11.5-14.5); WHITE BLOOD COUNT 16.9 K/uL (4.8-10.8)
--- NOTE | 2017-07-05 16:07 | CP.PCM.PN ---
Subjective - Date & Time of Evaluation Date of Evaluation: 07/05/17 Time of Evaluation: 16:05 - Subjective Subjective: using bipap lying flat no acute complaints no acute events labs reviewed chronic sob no fever or chills no n/v/diarrha good u/o no abdominal pain no palpitations no increased thirst no headache no sinus tenderness Objective - Vital Signs/Intake and Output Vital Signs (last 24 hours): Temp Pulse Resp BP Pulse Ox 98.4 F 82 20 130/66 99 07/05/17 15:40 07/05/17 15:40 07/05/17 15:40 07/05/17 15:40 07/05/17 15:40 Intake and Output: 07/05/17 07/05/17 06:59 18:59 Output Total 550 Balance -550 - Medications Medications: Current Medications Albuterol/Ipratropium (Duoneb 3 Mg/0.5 Mg (3 Ml) Ud) 3 ml INH RQ6 PRN PRN Reason: Shortness of Breath Last Admin: 06/30/17 19:32 Dose: 3 ml Apixaban (Eliquis) 2.5 mg PO Q12 [facility] Last Admin: 07/05/17 09:52 Dose: 2.5 mg Aspirin (Aspirin Chewable) 81 mg PO DAILY [facility] Last Admin: 07/05/17 09:52 Dose: 81 mg Furosemide (Lasix) 40 mg IVP DAILY [facility] Last Admin: 07/05/17 09:52 Dose: 40 mg Guaifenesin/Dextromethorphan (Robitussin Dm) 10 ml PO Q6 PRN PRN Reason: Cough and congestion Last Admin: 07/05/17 09:52 Dose: 10 ml Insulin Aspart (Novolog) 12 unit SC ACTID [facility] Last Admin: 07/05/17 12:50 Dose: 12 unit Insulin Human Isoph/Insulin Regular (Novolin 70/30 (70/30 Units/Ml) 10 Ml) 20 units SC BIDAC [facility] Last Admin: 07/05/17 08:05 Dose: 20 units Metoprolol Tartrate (Lopressor) 25 mg PO BID [facility] Last Admin: 07/05/17 09:52 Dose: 25 mg Montelukast Sodium (Singulair) 10 mg PO HS [facility] Last Admin: 07/04/17 21:27 Dose: 10 mg Pantoprazole Sodium (Protonix Ec Tab) 40 mg PO DAILY [facility] Last Admin: 07/05/17 09:52 Dose: 40 mg Rosuvastatin Calcium (Crestor) 5 mg PO HS [facility] Last Admin: 07/04/17 21:27 Dose: 5 mg Sitagliptin Phosphate (Januvia) 25 mg PO DAILY [facility] Last Admin: 07/05/17 09:52 Dose: 25 mg - Labs Labs: 07/05/17 10:55 07/05/17 07:16 PT 14.5 SECONDS (9.7-12.2) H 06/24/17 13:30 INR 1.3 06/24/17 13:30 APTT 67 SECONDS (21-34) H 06/24/17 13:30 - Constitutional Appears: Non-toxic, Chronically Ill - Head Exam Head Exam: ATRAUMATIC, NORMOCEPHALIC - Eye Exam Eye Exam: EOMI, Normal appearance - ENT Exam ENT Exam: Mucous Membranes Moist - Neck Exam Neck Exam: Full ROM. absent: Lymphadenopathy - Respiratory Exam Respiratory Exam: Decreased Breath Sounds. absent: Accessory Muscle Use - Cardiovascular Exam Cardiovascular Exam: REGULAR RHYTHM. absent: Rubs - GI/Abdominal Exam GI & Abdominal Exam: Soft, Normal Bowel Sounds. absent: Tenderness - Extremities Exam Extremities Exam: Pedal Edema - Neurological Exam Neurological Exam: Alert, Awake, Oriented x3 Assessment and Plan - Assessment and Plan (Free Text) Assessment: ckd 3 nephrotic syndrome fluid overload co2 retention stable from renal if co2 increases, may give dose of diamox office f/u upon discharge
[2017-07-06 01:06] VITALS: O2SAT 98
[2017-07-06 08:02] VITALS: RESP 18; TEMP 98.4
[2017-07-06] MEDS: (Novolin 70/30) NPH/Regular 70/30 Units/ml 10 ml vial SC SCH (08:08)
[2017-07-06] MEDS: (Novolog) Insulin Aspart, Recombinant 100 u/ml 10 ml vial SC SCH ×2 (08:10→12:33)
[2017-07-06] MEDS: Pantoprazole 40 mg EC Tab PO SCH (10:17)
[2017-07-06 10:26] VITALS: BP 149/83
--- NOTE | 2017-07-06 11:11 | CP.PCM.PN ---
Subjective - Date & Time of Evaluation Date of Evaluation: 07/06/17 Time of Evaluation: 11:09 - Subjective Subjective: seen and examined wants to go home improved breathing, at baseline improved leg swelling Objective - Vital Signs/Intake and Output Vital Signs (last 24 hours): Temp Pulse Resp BP Pulse Ox 98.4 F 81 18 149/83 98 07/06/17 07:01 07/06/17 10:00 07/06/17 07:01 07/06/17 10:18 07/06/17 07:01 Intake and Output: 07/06/17 07/06/17 06:59 18:59 Intake Total 240 Output Total 1150 Balance -910 - Medications Medications: Current Medications Albuterol/Ipratropium (Duoneb 3 Mg/0.5 Mg (3 Ml) Ud) 3 ml INH RQ6 PRN PRN Reason: Shortness of Breath Last Admin: 06/30/17 19:32 Dose: 3 ml Apixaban (Eliquis) 2.5 mg PO Q12 [facility] Last Admin: 07/06/17 10:18 Dose: 2.5 mg Aspirin (Aspirin Chewable) 81 mg PO DAILY [facility] Last Admin: 07/06/17 10:18 Dose: 81 mg Furosemide (Lasix) 40 mg IVP DAILY [facility] Last Admin: 07/06/17 10:18 Dose: 40 mg Guaifenesin/Dextromethorphan (Robitussin Dm) 10 ml PO Q6 PRN PRN Reason: Cough and congestion Last Admin: 07/05/17 09:52 Dose: 10 ml Insulin Aspart (Novolog) 12 unit SC ACTID [facility] Last Admin: 07/06/17 08:10 Dose: Not Given Insulin Human Isoph/Insulin Regular (Novolin 70/30 (70/30 Units/Ml) 10 Ml) 20 units SC BIDAC [facility] Last Admin: 07/06/17 08:08 Dose: 20 units Metoprolol Tartrate (Lopressor) 25 mg PO BID [facility] Last Admin: 07/06/17 10:18 Dose: 25 mg Montelukast Sodium (Singulair) 10 mg PO HS [facility] Last Admin: 07/05/17 21:42 Dose: 10 mg Pantoprazole Sodium (Protonix Ec Tab) 40 mg PO DAILY [facility] Last Admin: 07/06/17 10:17 Dose: 40 mg Rosuvastatin Calcium (Crestor) 5 mg PO HS [facility] Last Admin: 07/05/17 21:42 Dose: 5 mg Sitagliptin Phosphate (Januvia) 25 mg PO DAILY [facility] Last Admin: 07/06/17 10:17 Dose: 25 mg - Labs Labs: 07/05/17 10:55 07/05/17 07:16 PT 14.5 SECONDS (9.7-12.2) H 06/24/17 13:30 INR 1.3 06/24/17 13:30 APTT 67 SECONDS (21-34) H 06/24/17 13:30 - Constitutional Appears: No Acute Distress, Chronically Ill (obese) - Head Exam Head Exam: NORMAL INSPECTION - Eye Exam Eye Exam: Normal appearance, PERRL - ENT Exam ENT Exam: Mucous Membranes Moist, Normal Exam - Neck Exam Neck Exam: Full ROM, Normal Inspection - Respiratory Exam Respiratory Exam: Decreased Breath Sounds, NORMAL BREATHING PATTERN - Cardiovascular Exam Cardiovascular Exam: REGULAR RHYTHM, RRR - GI/Abdominal Exam GI & Abdominal Exam: Distended, Soft, Diminished Bowel Sounds - Extremities Exam Extremities Exam: Pedal Edema - Neurological Exam Neurological Exam: Alert, Awake, Oriented x3 - Psychiatric Exam Psychiatric exam: Normal Affect, Normal Mood - Skin Skin Exam: Intact, Warm Assessment and Plan (1) CKD stage 4 due to type 2 diabetes mellitus Status: Acute (2) CO2 retention Status: Acute (3) COPD exacerbation Status: Acute (4) Nephrotic syndrome Status: Acute - Assessment and Plan (Free Text) Assessment: may switch to lasix 40mg po bid diamox for alkalosis stable for dc , outpt follow up w/ labs in 1-2 weeks
--- NOTE | 2017-07-06 14:12 | CP.PCM.PN ---
Subjective - Date & Time of Evaluation Date of Evaluation: 07/06/17 Time of Evaluation: 10:40 - Subjective Subjective: Patient seen today , sob improved, denies any chest pain, dizziness, N/V/D, leg swelling improved a febrile BUN/CR- improved - 64/1.8 Objective - Vital Signs/Intake and Output Vital Signs (last 24 hours): Temp Pulse Resp BP Pulse Ox 98.4 F 81 18 149/83 98 07/06/17 07:01 07/06/17 10:00 07/06/17 07:01 07/06/17 10:18 07/06/17 07:01 Intake and Output: 07/06/17 07/06/17 06:59 18:59 Intake Total 240 Output Total 1150 Balance -910 - Medications Medications: Current Medications Acetazolamide (Diamox 250 Mg Tab) 250 mg PO BID [facility] Albuterol/Ipratropium (Duoneb 3 Mg/0.5 Mg (3 Ml) Ud) 3 ml INH RQ6 PRN PRN Reason: Shortness of Breath Last Admin: 06/30/17 19:32 Dose: 3 ml Apixaban (Eliquis) 2.5 mg PO Q12 [facility] Last Admin: 07/06/17 10:18 Dose: 2.5 mg Aspirin (Aspirin Chewable) 81 mg PO DAILY [facility] Last Admin: 07/06/17 10:18 Dose: 81 mg Furosemide (Lasix) 40 mg PO BID [facility] Guaifenesin/Dextromethorphan (Robitussin Dm) 10 ml PO Q6 PRN PRN Reason: Cough and congestion Last Admin: 07/05/17 09:52 Dose: 10 ml Insulin Aspart (Novolog) 12 unit SC ACTID [facility] Last Admin: 07/06/17 12:33 Dose: 12 unit Insulin Human Isoph/Insulin Regular (Novolin 70/30 (70/30 Units/Ml) 10 Ml) 20 units SC BIDAC [facility] Last Admin: 07/06/17 08:08 Dose: 20 units Metoprolol Tartrate (Lopressor) 25 mg PO BID [facility] Last Admin: 07/06/17 10:18 Dose: 25 mg Montelukast Sodium (Singulair) 10 mg PO HS [facility] Last Admin: 07/05/17 21:42 Dose: 10 mg Pantoprazole Sodium (Protonix Ec Tab) 40 mg PO DAILY [facility] Last Admin: 07/06/17 10:17 Dose: 40 mg Rosuvastatin Calcium (Crestor) 5 mg PO HS [facility] Last Admin: 07/05/17 21:42 Dose: 5 mg Sitagliptin Phosphate (Januvia) 25 mg PO DAILY [facility] Last Admin: 07/06/17 10:17 Dose: 25 mg - Labs Labs: 07/05/17 10:55 07/05/17 07:16 PT 14.5 SECONDS (9.7-12.2) H 06/24/17 13:30 INR 1.3 06/24/17 13:30 APTT 67 SECONDS (21-34) H 06/24/17 13:30 - Constitutional Appears: Well, No Acute Distress - Respiratory Exam Respiratory Exam: Decreased Breath Sounds, Rhonchi, NORMAL BREATHING PATTERN - Cardiovascular Exam Cardiovascular Exam: REGULAR RHYTHM, +S1, +S2 - Neurological Exam Neurological Exam: Alert, Awake, Oriented x3 Assessment and Plan - Assessment and Plan (Free Text) Assessment: A/P 46 yr old male admitted with COPD exacerbation, CO2 retention, Hypoxia, Renal insufficiency/pneumonia Patient clinically improved renal function - improved and back to base jacobo e D/W Dr. Long , stable for discharge home today and f/u [facility] office in 1 week discharge plan discussed with patient , who understands an dagrees with plan Pateint instructed to return sED if symptoms returns or any othe r concerning symptoms Pateitn denies jacob needs for any prescription Patient has home 02 and c- pap at home for use
--- NOTE | 2017-07-06 14:34 | PCM.HF ---
Heart Failure Core Measure - Heart Failure Ejection Fraction: 40 % or Greater BREANA Inhibitor Prescribed: No Contraindication/Reason for not providing: breana Beta-Edenilson Prescribed: Metoprolol Succinate Angiotensin II Receptor Edenilson Prescribed: Yes AnticoagulationTherapy for Atrial Fibrillation/Atrialflutter: Yes Aldosterone Antagonist Prescribed: No Contraindication/Reason for not providing: ARF/EF>45 Hydralazine Nitrate Prescribed: No Contraindication/Reason for not providing: EF>45 Implantable Cardioverter Defibrillator Therapy: No Contraindication/Reason for not providing: EF>.45 Cardiac Resynchronization Therapy Prescribed: No Contraindication/Reason for not providing: EF>45 - Follow up Will be discharged to: Home Follow Up Date (must be within 7 days from discharge): 07/10/17 Follow Up Time: 09:00
[2017-07-06 14:55] VITALS: PULSE 86
== END 2017-07-06 14:49 | disposition home or self-care (01) | DRG 541 ==
LOC: C.ER 13:12 → C.9E 15:46 → C.6T 16:33
PROVIDERS: ADMIT Internal Medicine; ATTEND Internal Medicine
PROC: 5A09557 Assistance with Respiratory Ventilation, Greater than 96 Consecutive Hours, Continuous Positive Airway Pressure (ICD-10-PCS; principal; 2017-06-24)
DX: J18.9 Pneumonia, unspecified organism (principal); J96.91 Respiratory failure, unspecified with hypoxia; N17.9 Acute kidney failure, unspecified; E11.21 Type 2 diabetes mellitus with diabetic nephropathy; E87.5 Hyperkalemia; I13.0 Hypertensive heart and chronic kidney disease with heart failure and stage 1 through stage 4 chronic kidney disease, or unspecified chronic kidney disease; K74.60 Unspecified cirrhosis of liver; I50.9 Heart failure, unspecified; E87.4 Mixed disorder of acid-base balance; E11.22 Type 2 diabetes mellitus with diabetic chronic kidney disease; N18.4 Chronic kidney disease, stage 4 (severe); E78.5 Hyperlipidemia, unspecified; G47.33 Obstructive sleep apnea (adult) (pediatric); I25.2 Old myocardial infarction; Z79.01 Long term (current) use of anticoagulants; Z86.711 Personal history of pulmonary embolism; Z86.718 Personal history of other venous thrombosis and embolism; Z87.891 Personal history of nicotine dependence; Z90.81 Acquired absence of spleen

== ENCOUNTER 2017-10-13 07:56 | Inpatient (IN) | payer MEDICAID ==
[2017-10-13 07:57] VITALS: BMI 47.0
--- NOTE | 2017-10-13 08:27 | C.PDOC ---
History Of Present Illness POOR HISTORIAN RECUR SOB X 2 DAYS "JUST LIKE USUAL". hypertension, diabetes, hypercholesterolemia, nephrotic syndrome, lung fibrosis, chronic respirated insufficiency on home oxygen and BiPAP at home. PS COMPLIANT W MEDS BUT NONCOMPLIANT W HOME CPAP @ NIGHT. SUBJ FEVER. DENIES INCR SWELLING. PS DOESNT KNOW HIS MEDS "I JUST TAKE A COCKTAIL" EXAM MILD DIST NONTOXIC HEENT NEG LUNGS RETRACTIONS SPEAKING FULL SENTENCES B/L RALES OCC EXP WHEEZE CV RRR SINUS TACH MIN EDEMA WARM DRY REMAINDER NEG Time Seen by Provider: 10/13/17 08:15 Chief Complaint (Nursing): Chest Pain History Per: Patient History/Exam Limitations: no limitations Onset/Duration Of Symptoms: Days Current Symptoms Are (Timing): Still Present Severity: Moderate Past Medical History Reviewed: Historical Data, Nursing Documentation, Vital Signs Vital Signs: Last Vital Signs Temp 99.0 F 10/13/17 10:32 Pulse 89 10/13/17 11:07 Resp 16 10/13/17 10:32 BP 128/74 10/13/17 10:32 Pulse Ox 98 10/13/17 10:32 - Medical History PMH: Arthritis, Asthma, CHF, COPD, Diabetes, Deep Vein Thrombosis (Right leg. IVC Filter inserted.), HTN, Hyperlipidemia, Pneumonia, Chronic Kidney Disease Denies: Anxiety Other Surgeries: Hx of surgeries - [facility] Procedures ASSISTANCE WITH RESPIRATORY VENTILATION, 24-96 HRS, CPAP (10/14/16) ASSISTANCE WITH RESPIRATORY VENTILATION, <24 HRS, CPAP (11/09/16) ASSISTANCE WITH RESPIRATORY VENTILATION, >96 HRS, CPAP (06/24/17) DRAINAGE OF SPINAL CANAL, PERCUTANEOUS APPROACH, DIAGNOSTIC (05/03/15) EXTIRPATION OF MATTER FROM R COM ILIAC VEIN, PERC APPROACH (05/25/16) FLUOROSCOPY OF LEFT HEART USING LOW OSMOLAR CONTRAST (01/14/17) FLUOROSCOPY OF MULT COR ART USING L OSM CONTRAST (01/14/17) INSERT INFUSION DEV IN R INT JUGULAR VEIN, PERC (05/25/16) INSERTION OF ENDOTRACHEAL AIRWAY INTO TRACHEA, VIA OPENING (05/25/16) INSERTION OF INFUSION DEV INTO R FEMOR VEIN, PERC APPROACH (01/25/16) INSERTION OF INFUSION DEV INTO SUP VENA CAVA, PERC APPROACH (05/25/16) INSERTION OF INTRALUM DEV INTO INF VENA CAVA, PERC APPROACH (05/25/16) MEASURE OF CARDIAC SAMPL & PRESSURE, L HEART, PERC APPROACH (01/14/17) PERFORMANCE OF URINARY FILTRATION, MULTIPLE (05/25/16) RESPIRATORY VENTILATION, GREATER THAN 96 CONSECUTIVE HOURS (05/25/16) TETANUS TOXOID ADMINIST (07/19/13) Family History: States: Diabetes - Social History Hx Tobacco Use: No Hx Alcohol Use: No Hx Substance Use: No - Immunization History Hx Tetanus Toxoid Vaccination: Yes (07/19/13) Hx Influenza Vaccination: No Hx Pneumococcal Vaccination: No Review Of Systems Except As Marked, All Systems Reviewed And Found Negative. Constitutional: Positive for: Fever (subjective fever) Cardiovascular: Negative for: Chest Pain Respiratory: Positive for: Shortness of Breath. Negative for: Cough Physical Exam - Physical Exam Appears: Non-toxic, Other (mild distress) Skin: Warm, Dry Head: Atraumatic, Normacephalic Eye(s): bilateral: Normal Inspection Nose: Normal Oral Mucosa: Moist Cardiovascular: Edema (minimal edema), Other (RRR, sinus tachycardia) Respiratory: Rales (bilateral rales), Wheezing (ocassional expiratory wheezing) , Other (retractions, speaking in full sentences) Neurological/Psych: Oriented x3, Normal Speech ED Course And Treatment - Laboratory Results Result Diagrams: 10/13/17 08:33 10/13/17 08:33 ECG: Interpreted By Me ECG Rhythm: Sinus Tachycardia, R BBB Rate From EC O2 Sat by Pulse Oximetry: 94 Pulse Ox Interpretation: Other (5L) - Radiology CXR: Interpreted by Me, Viewed By Me CXR Interpretation: Yes: Other (CHF) Progress - Re-Evaluation Re-evaluation Note: 10/13/17 09:14 IMPROVED ON VAPOTHERM. VSS D/W DR ROBERTS: STATES PT SCREENED FOR POSSIBLE LUNG TRANSPLANT. HO CHRONIC RENAL INSUFF. PT NOT ON MAINTENANCE PREDNISONE. WILL ADMIT 10/13/17 10:15 CO EPIG DISCOMFORT. PS HAS HAD SIM PRIOR EPISODES "ALL THE TIME". "I DONT KNOW IF I HAVE STOMACH PROBLEMS". DENIES CP, SOB, DIZZY, NV. VSS. REPEAT EKG NSR @ 95, RBB NO ACUTE CHANGES COMPARED TO PRIOR. MAALOX, REASSESS - Data Reviewed Data Reviewed: Lab, Diagnostic imaging, EKG, Old records - Critical Care Citical Care: Excluding Proc Time Critical Care Time: 90 minutes Medical Decision Making Medical Decision Making: Plan: --Labs --ECG --Lasix IV --Prednisone IV --Nebulizer Treatment Disposition Counseled Patient/Family Regarding: Studies Performed, Diagnosis - Disposition Disposition: HOSPITALIZED Disposition Time: 09:15 Condition: STABLE - POA Present On Arrival: Poor Glycemic Control - Clinical Impression Clinical Impression: CHF exacerbation, COPD exacerbation, Acute on chronic renal failure - Scribe Statement The provider has reviewed the documentation as recorded by the Matheus Rabago Provider Attestation: All medical record entries made by the Matheus were at my direction and personally dictated by me. I have reviewed the chart and agree that the record accurately reflects my personal performance of the history, physical exam, medical decision making, and the department course for this patient. I have also personally directed, reviewed, and agree with the discharge instructions and disposition.
[2017-10-13] MEDS ORDERED: Albuterol-Ipratrop 3 mg / 0.5 (3 ml) UD IH STA (08:29)
[2017-10-13] MEDS ORDERED: Albuterol-Ipratrop 3 mg / 0.5 (3 ml) UD ONE (08:37)
[2017-10-13 08:38] LABS: BASO # 0.2 K/uL (0.0-0.2); EOS # 0.7 K/uL (0.0-0.7); EOS % 4.5 % (0.0-4.0); HEMOGLOBIN 11.9 g/dL (12.0-18.0); LYMPH # 1.7 K/uL (1.0-4.3); LYMPH % 10.3 % (20.0-40.0); MEAN CORPUSCULAR HEMOGLOBIN 28.3 pg (27.0-31.0); MEAN CORPUSCULAR HGB CONC 31.8 g/dL (33.0-37.0); MEAN PLATELET VOLUME 10.1 fL (7.2-11.7); MONO # 1.6 K/uL (0.0-0.8); MONO % 9.5 % (0.0-10.0); NEUT # 12.3 K/uL (1.8-7.0); NEUT % 74.7 % (50.0-75.0); NRBC % 0.9 % (0.0-2.0); RBC 4.21 Mil/uL (4.40-5.90); RED CELL DISTRIBUTION WIDTH 18.6 % (11.5-14.5); WHITE BLOOD COUNT 16.5 K/uL (4.8-10.8)
[2017-10-13 08:43] LABS: MEAN CELL VOLUME 88.9 fL (80.0-94.0)
[2017-10-13] MEDS ORDERED: MethylPREDNISolone 40 mg Vial ONE (08:46)
[2017-10-13 08:48] LABS: VENOUS BLOOD GAS BASE EXCESS 8.8 mmol/L (0.0-2.0); VENOUS BLOOD GAS PCO2 88 mmHg (40-60); VENOUS BLOOD GAS PO2 17 mm/Hg (30-55); VENOUS BLOOD PH 7.26 (7.32-7.43)
[2017-10-13 08:49] LABS: ALBUMIN 3.8 g/dL (3.5-5.0); CALCIUM 8.9 mg/dl (8.6-10.4)
[2017-10-13 09:02] LABS: TROPONIN I 0.03 ng/mL (0.00-0.120)
--- NOTE | 2017-10-13 09:04 | RAD ---
Date of service: 10/13/2017 PROCEDURE: CHEST RADIOGRAPH, 1 VIEW HISTORY: SOB COMPARISON: 09/11/2017. FINDINGS: LUNGS: The lungs are well inflated. There is improving pulmonary venous congestion. PLEURA: No pneumothorax. Question of small right pleural effusion. CARDIOVASCULAR: Moderate cardiomegaly. OSSEOUS STRUCTURES: No significant abnormalities. VISUALIZED UPPER ABDOMEN: Normal. OTHER FINDINGS: None. IMPRESSION: Moderate cardiomegaly, suspect small right pleural effusion and improving pulmonary venous congestion.
[2017-10-13] MEDS ORDERED: Glucagon Recombinant 1 mg Inj IM PRN (10:07)
[2017-10-13] MEDS ORDERED: Dextrose 50% SYRINGE Inj (50 ml) IV PRN (10:07)
[2017-10-13] MEDS ORDERED: Aluminum Hydroxide/Magnesium Hydroxide Susp (30 mL) PO STA (10:11)
[2017-10-13] MEDS ORDERED: MethylPREDNISolone 40 mg Vial IVP STA (10:28)
[2017-10-13] MEDS ORDERED: Aluminum Hydroxide/Magnesium Hydroxide Susp (30 mL) ONE (10:30)
[2017-10-13] MEDS: (Novolin R) Insulin Human Regular 100 units/ml vial SC SCH ×3 (12:22→21:50)
--- NOTE | 2017-10-13 14:09 | CP.PCM.CON ---
History of Present Illness - History of Present Illness History of Present Illness: RECURRENT SOB X 2 DAYS , dry cough which has recurred multiple times.H/O CHF, severe COPD, hypertension, diabetes2, hypercholesterolemia, nephrotic syndrome with severe proteinuria,CKD 4, lung fibrosis, chronic respiratory insufficiency on home oxygen and BiPAP at home. PS COMPLIANT W MEDS BUT NONCOMPLIANT W HOME CPAP @ NIGHT. DENIES INCR SWELLING. PMH: DM 2 HTN NEPHROTIC SYNDROME COPD S/P DVT RIGHT LE S/P IVC FILTER H/O SPLENECTOMY FH- UNCLE WAS ON DIALYSIS Review of Systems - Constitutional Constitutional: Lethargy, Weakness - EENT Eyes: absent: As Per HPI, Blind Spots, Blurred Vision, Change in Vision, Decreased Night Vision, Diplopia, Discharge, Dry Eye, Exophthalmos, Floaters, Irritation, Itchy Eyes, Loss of Peripheral Vision, Pain, Photophobia, Requires Corrective Lenses, Sees Flashes, Spots in Vision, Tunnel Vision, Other Visual Disturbances, Loss of Vision, Other Ears: absent: As Per HPI, Decreased Hearing, Ear Discharge, Ear Pain, Tinnitus, Abnormal Hearing, Disequilibrium, Dizziness, Other Nose/Mouth/Throat: absent: As Per HPI, Epistaxis, Nasal Congestion, Nasal Discharge, Nasal Obstruction, Nasal Trauma, Nose Pain, Post Nasal Drip, Sinus Pain, Sinus Pressure, Bleeding Gums, Change in Voice, Dental Pain, Dry Mouth, Dysphagia, Halitosis, Hoarsness, Lip Swelling, Mouth Lesions, Mouth Pain, Odynophagia, Sore Throat, Throat Swelling, Tongue Swelling, Facial Pain, Neck Pain, Neck Mass, Other - Cardiovascular Cardiovascular: Dyspnea on Exertion, Leg Edema, Orthopnea - Respiratory Respiratory: Cough, Dyspnea on Exertion - Gastrointestinal Gastrointestinal: absent: As Per HPI, Abdominal Pain, Belching, Bloating, Change in Bowel Habits, Change in Stool Character, Coffee Ground Emesis, Constipation, Cramping, Diarrhea, Dyspepsia, Dysphagia, Early Satiety, Excessive Flatus, Fecal Incontinence, Heartburn, Hematemesis, Hematochezia, Loose Stools, Melena, Nausea, Odynophagia, Temesmus, Vomiting, Other - Genitourinary Genitourinary: Urinary Frequency, Voiding Freq/Small Amts - Musculoskeletal Musculoskeletal: Muscle Cramps, Muscle Weakness, Myalgias - Neurological Neurological: Weakness Past Patient History - Infectious Disease Hx of Infectious Diseases: None - Past Medical History & Family History Past Medical History?: Yes Past Family History: Reviewed and not pertinent - Past Social History Smoking Status: Former Smoker Chewing Tobacco Use: No Cigar Use: No Alcohol: None Drugs: Denies Home Situation {Lives}: With Family - CARDIAC Hx Congestive Heart Failure: Yes Hx Hypertension: Yes - PULMONARY Hx Asthma: Yes Hx Chronic Obstructive Pulmonary Disease (COPD): Yes Hx Pneumonia: Yes - NEUROLOGICAL Hx Neurological Disorder: Yes - HEENT Hx HEENT Problems: No - RENAL Hx Chronic Kidney Disease: Yes - ENDOCRINE/METABOLIC Hx Endocrine Disorders: Yes Hx Diabetes Mellitus Type 2: Yes - HEMATOLOGICAL/ONCOLOGICAL Hx Blood Disorders: Yes Other/Comment: Right LE DVT - INTEGUMENTARY Hx Dermatological Problems: Yes Hx Cellulitis: Yes - MUSCULOSKELETAL/RHEUMATOLOGICAL Hx Arthritis: Yes - GASTROINTESTINAL Hx Gastrointestinal Disorders: No - GENITOURINARY/GYNECOLOGICAL Hx Genitourinary Disorders: No - PSYCHIATRIC Hx Anxiety: No Hx Substance Use: No - SURGICAL HISTORY Hx Surgeries: Yes Hx Splenectomy: Yes Other/Comment: IVC Filter placement - ANESTHESIA Hx Anesthesia: Yes Hx Anesthesia Reactions: No Hx Malignant Hyperthermia: No Meds Allergies/Adverse Reactions: Allergies Allergy/AdvReac Type Severity Reaction Status Date / Time EGG Allergy Intermediate RASH Verified 10/13/17 08:14 - Medications Medications: Current Medications Albuterol/Ipratropium (Duoneb 3 Mg/0.5 Mg (3 Ml) Ud) 3 ml INH RQ6 PRN PRN Reason: Shortness of Breath Apixaban (Eliquis) 2.5 mg PO Q12 [facility] Aspirin (Aspirin Chewable) 81 mg PO DAILY [facility] Dextrose (Dextrose 50% Inj) 0 ml IV STAT PRN; Protocol PRN Reason: Hypoglycemia Protocol Dextrose (Glutose 15) 0 gm PO ONCE PRN; Protocol PRN Reason: Hypoglycemia Protocol Furosemide (Lasix) 40 mg IVP Q12 [facility] Glucagon (Glucagen Diagnostic Kit) 0 mg IM STAT PRN; Protocol PRN Reason: Hypoglycemia Protocol Dextrose (Dextrose 5% In Water 1000 Ml) 1,000 mls @ 0 mls/hr IV .Q0M PRN; Protocol; Per Protocol PRN Reason: Hypoglycemia Protocol Insulin Glargine (Lantus) 25 unit SC HS [facility] Insulin Human Regular (Novolin R) 0 unit SC ACHS [facility] PRN Reason: Protocol Last Admin: 10/13/17 12:22 Dose: 2 units Metoprolol Succinate (Toprol Xl) 50 mg PO DAILY [facility] Montelukast Sodium (Singulair) 10 mg PO HS [facility] Pantoprazole Sodium (Protonix Ec Tab) 40 mg PO DAILY [facility] Rosuvastatin Calcium (Crestor) 20 mg PO HS [facility] Fluticasone/Salmeterol (Advair Diskus 250/50) 1 puff IH Q12 [facility] Physical Exam - Constitutional Appears: In Acute Distress, Chronically Ill - Head Exam Head Exam: ATRAUMATIC, NORMAL INSPECTION - Eye Exam Eye Exam: EOMI, Normal appearance - Neck Exam Neck exam: Positive for: Normal Inspection. Negative for: Tenderness - Respiratory Exam Respiratory Exam: Rhonchi, Respiratory Distress - Cardiovascular Exam Cardiovascular Exam: Tachycardia, +S1 - GI/Abdominal Exam GI & Abdominal Exam: Distended, Soft - Extremities Exam Extremities exam: Positive for: normal inspection, tenderness - Neurological Exam Neurological exam: Alert, CN II-XII Intact - Skin Skin Exam: Dry, Warm Results - Vital Signs Recent Vital Signs: Last Vital Signs Temp 98.7 F 10/13/17 12:15 Pulse 80 10/13/17 12:20 Resp 20 10/13/17 12:15 BP 131/84 10/13/17 12:15 Pulse Ox 92 L 10/13/17 12:20 - Labs Result Diagrams: 10/13/17 08:33 10/13/17 08:33 Labs: Laboratory Results - last 24 hr 10/13/17 10/13/17 10/13/17 08:33 08:33 08:44 WBC 16.5 H RBC 4.21 L Hgb 11.9 L Hct 37.5 MCV 88.9 D MCH 28.3 MCHC 31.8 L RDW 18.6 H Plt Count 132 MPV 10.1 Neut % (Auto) 74.7 Lymph % (Auto) 10.3 L [place] % (Auto) 9.5 Eos % (Auto) 4.5 H Baso % (Auto) 1.0 Neut # (Auto) 12.3 H Lymph # (Auto) 1.7 [place] # (Auto) 1.6 H Eos # (Auto) 0.7 Baso # (Auto) 0.2 pO2 17 L VBG pH 7.26 L VBG pCO2 88 H* VBG HCO3 29.6 VBG Total CO2 42.2 H VBG O2 Sat (Calc) 22.6 L VBG Base Excess 8.8 H VBG Potassium 5.4 H Glucose 150 H Lactate 1.9 Crit Value Called To Dr perrin Crit Value Called By Turner davis fire watchman Crit Value Read Back Y Blood Gas Notified Time 847 Sodium 145 144.0 Potassium 5.3 H Chloride 101 107.0 Carbon Dioxide 37 H Anion Gap 13 BUN 60 H Creatinine 2.4 H Est GFR ( Amer) 35 Est GFR (Non-Af Amer) 29 Random Glucose 161 H Calcium 8.9 Total Bilirubin 1.4 H AST 26 ALT 25 Alkaline Phosphatase 167 H D Troponin I 0.0300 NT-Pro-B Natriuret Pep 4820 H Total Protein 7.5 Albumin 3.8 Globulin 3.7 Albumin/Globulin Ratio 1.0 Venous Blood Potassium 5.4 H Assessment & Plan (1) COPD exacerbation Status: Acute (2) Type 2 diabetes mellitus with diabetic nephropathy Status: Acute (3) CHF (congestive heart failure) Status: Acute (4) Nephrotic syndrome Status: Acute (5) CO2 retention Status: Acute (6) HTN (hypertension) Status: Chronic - Assessment and Plan (Free Text) Plan: IV lasix Add metolazone check serial chemistries check proteinuria if not better might need ASSURANCE ENGINEER
[2017-10-13] MEDS: metOLazone 5 MG TAB PO SCH (17:50)
--- NOTE | 2017-10-13 18:53 | CARD ---
APPROVED REPORT Date of service: 10/13/2017 EXAM: Two-dimensional and M-mode echocardiogram with Doppler and color Doppler. Other Information Quality : TDSRhythm : INDICATION Congestive Heart Failure COPD 2D DIMENSIONS IVSd1.2 (0.7-1.1cm)LVDd4.8 (3.9-5.9cm) LVOT Diameter2.1 (1.8-2.4cm)PWd1.2 (0.7-1.1cm) LVDs3.1 (2.5-4.0cm)FS (%) 35.9 % LVEF (%)65.4 (>50%) M-Mode DIMENSIONS Left Atrium (MM)4.16 (2.5-4.0cm)IVSd1.28 (0.7-1.1cm) Aortic Root3.60 (2.2-3.7cm)LVDd4.77 (4.0-5.6cm) Aortic Cusp Exc.2.59 (1.5-2.0cm)PWd1.04 (0.7-1.1cm) FS (%) 36 %LVDs3.05 (2.0-3.8cm) LVEF (%)66 (>50%) Aortic Valve AoV Peak Jnmasxtg980.9cm/sAoV VTI49.5cmAO Peak GR.32mmHg LVOT Peak Wugkwnwc045.3cm/sLVOT VTI33.25cmAO Mean GR.19mmHg JUAN M (VMAX)2.36hu1BZV (VTI)2.34cm2 Mitral Valve MV E Ygmvkowf66.4cm/sMV A Uawtvwsu57.8cm/sE/A ratio1.1 TDI E/Lateral E'0.0E/Medial E'0.0 Tricuspid Valve TR Peak [place]048mx/sTR Peak Gr.42uhMuZICN15wsSf <Conclusion> tds. poor window. la is mildly dilated. mild concnetric lvh with normal lv systolic & diastolic funciton with lvef of 65-70%. abnormal septal motion from rv pressure overload. sclerotic probably bicuspid aortic valve with peak avg of 32 mm of hg.calculated juan m of 2.4cmsq. trace ai. normal mitral,tv & pv. mild mr,tr with calculated pulmonary systolic pressures of 70 mm of hg,severe pulmonary hypertension. normal size sclerotic aortic root. no pericardial effusion seen.
[2017-10-13 21:06] LABS: SQUAMOUS EPITHIAL 1 /hpf (0-5); URINE BACTERIA RARE (<OCC)
[2017-10-13 21:07] LABS: URINE BILIRUBIN NEGATIVE (NEGATIVE); URINE BLOOD 1+ (NEGATIVE); URINE CLARITY Hazy (Clear); URINE COLOR Yellow (YELLOW); URINE GLUCOSE (UA) 3+ mg/dL (Normal); URINE LEUKOCYTE ESTERASE NEG Leu/uL (Negative); URINE PROTEIN 3+ mg/dL (NEGATIVE); URINE UROBILINOGEN NORMAL mg/dL (0.2-1.0)
[2017-10-13] MEDS: (Lantus) Insulin Glargine, Recombinant SC SCH (22:38)
[2017-10-14] MEDS: Albuterol-Ipratrop 3 mg / 0.5 (3 ml) UD INH PRN (07:44)
[2017-10-14] MEDS: (Novolin R) Insulin Human Regular 100 units/ml vial SC SCH ×4 (07:48→22:12)
[2017-10-14 08:33] LABS: ALBUMIN 3.8 g/dL (3.5-5.0); CALCIUM 8.5 mg/dl (8.6-10.4)
[2017-10-14] MEDS ORDERED: Sod Polystyrene Sulf 15 gm/60 ml Susp PO ONE ×3 (09:15→13:45)
[2017-10-14] MEDS: metOLazone 5 MG TAB PO SCH ×2 (09:24→10:49)
[2017-10-14] MEDS: Pantoprazole 40 mg EC Tab PO SCH (09:30)
[2017-10-14] MEDS ORDERED: Albuterol 0.083% Inhal Sol (2.5 mg/3 mL) UD INH STA ×2 (09:45→13:34)
--- NOTE | 2017-10-14 09:56 | CP.PCM.PN ---
Subjective - Date & Time of Evaluation Date of Evaluation: 10/14/17 Time of Evaluation: 09:52 - Subjective Subjective: feels better SOB improved 24 hr urine collection in progress K 7.8 today - non hemolysed cr up to 3.5 ROS- as per HPI, other than that 10 point ROS negative Objective - Vital Signs/Intake and Output Vital Signs (last 24 hours): Temp Pulse Resp BP Pulse Ox 97.8 F 79 20 110/70 97 10/14/17 08:15 10/14/17 08:15 10/14/17 08:15 10/14/17 09:24 10/14/17 08:15 Intake and Output: 10/14/17 10/14/17 06:59 18:59 Intake Total 500 Output Total 500 Balance 0 - Medications Medications: Current Medications Albuterol/Ipratropium (Duoneb 3 Mg/0.5 Mg (3 Ml) Ud) 3 ml INH RQ6 PRN PRN Reason: Shortness of Breath Last Admin: 10/14/17 07:44 Dose: 3 ml Apixaban (Eliquis) 2.5 mg PO Q12 [facility] Last Admin: 10/14/17 09:24 Dose: 2.5 mg Aspirin (Aspirin Chewable) 81 mg PO DAILY [facility] Last Admin: 10/14/17 09:30 Dose: 81 mg Dextrose (Dextrose 50% Inj) 0 ml IV STAT PRN; Protocol PRN Reason: Hypoglycemia Protocol Dextrose (Glutose 15) 0 gm PO ONCE PRN; Protocol PRN Reason: Hypoglycemia Protocol Furosemide (Lasix) 40 mg IVP Q12 [facility] Last Admin: 10/14/17 09:24 Dose: 40 mg Glucagon (Glucagen Diagnostic Kit) 0 mg IM STAT PRN; Protocol PRN Reason: Hypoglycemia Protocol Dextrose (Dextrose 5% In Water 1000 Ml) 1,000 mls @ 0 mls/hr IV .Q0M PRN; Protocol; Per Protocol PRN Reason: Hypoglycemia Protocol Insulin Glargine (Lantus) 25 unit SC HS [facility] Last Admin: 10/13/17 22:38 Dose: 25 units Insulin Human Regular (Novolin R) 0 unit SC ACHS [facility] PRN Reason: Protocol Last Admin: 10/14/17 07:48 Dose: 3 units Metolazone (Zaroxolyn) 5 mg PO DAILY [facility] Metoprolol Succinate (Toprol Xl) 50 mg PO DAILY [facility] Montelukast Sodium (Singulair) 10 mg PO HS [facility] Last Admin: 10/13/17 22:35 Dose: 10 mg Pantoprazole Sodium (Protonix Ec Tab) 40 mg PO DAILY [facility] Last Admin: 10/14/17 09:30 Dose: 40 mg Rosuvastatin Calcium (Crestor) 20 mg PO HS [facility] Last Admin: 10/13/17 22:35 Dose: 20 mg Fluticasone/Salmeterol (Advair Diskus 250/50) 1 puff IH Q12 [facility] - Labs Labs: 10/13/17 08:33 10/14/17 06:55 - Constitutional Appears: Well, Non-toxic - Head Exam Head Exam: ATRAUMATIC, NORMOCEPHALIC - Eye Exam Eye Exam: EOMI, PERRL - ENT Exam ENT Exam: Mucous Membranes Moist, Normal Exam - Neck Exam Neck Exam: Full ROM. absent: Lymphadenopathy - Respiratory Exam Respiratory Exam: Clear to Ausculation Bilateral. absent: Rhonchi, Wheezes - Cardiovascular Exam Cardiovascular Exam: REGULAR RHYTHM, +S1, +S2 - GI/Abdominal Exam GI & Abdominal Exam: Soft. absent: Tenderness - Extremities Exam Extremities Exam: Pedal Edema. absent: Joint Swelling - Neurological Exam Neurological Exam: Alert, Awake, Oriented x3 - Psychiatric Exam Psychiatric exam: Normal Affect, Normal Mood - Skin Skin Exam: Normal Color, Warm Assessment and Plan (1) Hyperkalemia Status: Acute (2) Acute on chronic renal failure Status: Acute (3) CHF (congestive heart failure) Status: Acute (4) CO2 retention Status: Acute (5) COPD exacerbation Status: Acute (6) Nephrotic syndrome Status: Acute (7) Type 2 diabetes mellitus with diabetic nephropathy Status: Acute - Assessment and Plan (Free Text) Plan: will give kayexalate 30 gm now and at noon recheck potassium level at 4 pm cut back on metolazone dose to 5 mg daily await results of 24 hr urine collection might need ANIME ARTIST
[2017-10-14] MEDS: Fluticasone-Salmeterol 250-50mcg Diskus IH SCH ×2 (10:20→23:03)
[2017-10-14] MEDS: Metoprolol Succinate 50 mg XL Tab PO SCH (10:49)
[2017-10-14] MEDS ORDERED: Sodium Bicarbonate (8.4%) 50 Meq Syringe IVP ONE (13:36)
[2017-10-14] MEDS ORDERED: Dextrose 50% SYRINGE Inj (50 ml) IV STA (13:36)
[2017-10-14] MEDS ORDERED: (Novolin R) Insulin Human Regular 100 units/ml vial IV ONE (13:55)
[2017-10-14] MEDS ORDERED: (Novolin 70/30) NPH/Regular 70/30 Units/ml 10 ml vial SC ONE (14:00)
[2017-10-14 16:45] LABS: ALBUMIN 3.6 g/dL (3.5-5.0); CALCIUM 8.3 mg/dl (8.6-10.4)
--- NOTE | 2017-10-14 19:14 | CP.PCM.CON ---
History of Present Illness - History of Present Illness History of Present Illness: Patient seen and examined. C/O weakness and dyspnea denies chest pain and fever Physical Examination - Constitutional Appears: No Acute Distress - Head Exam Head Exam: ATRAUMATIC, NORMOCEPHALIC - Eye Exam Eye Exam: EOMI - ENT Exam ENT Exam: Mucous Membranes Moist - Respiratory Exam Respiratory Exam: Decreased Breath Sounds, Clear to Ausculation Bilateral, NORMAL BREATHING PATTERN - Cardiovascular Exam Cardiovascular Exam: +S1, +S2 - GI/Abdominal Exam GI & Abdominal Exam: Soft, Normal Bowel Sounds. absent: Tenderness - Extremities Exam Extremities Exam: absent: Calf Tenderness, Pedal Edema - Neurological Exam Neurological Exam: Alert, Awake - Psychiatric Exam Psychiatric exam: Normal Affect - Skin Skin Exam: Warm Past Patient History - Infectious Disease Hx of Infectious Diseases: None - Past Medical History & Family History Past Medical History?: Yes Past Family History: Reviewed and not pertinent - Past Social History Smoking Status: Former Smoker Chewing Tobacco Use: No Cigar Use: No Alcohol: None Drugs: Denies Home Situation {Lives}: With Family - CARDIAC Hx Congestive Heart Failure: Yes Hx Hypertension: Yes - PULMONARY Hx Asthma: Yes Hx Chronic Obstructive Pulmonary Disease (COPD): Yes Hx Pneumonia: Yes - NEUROLOGICAL Hx Neurological Disorder: Yes - HEENT Hx HEENT Problems: No - RENAL Hx Chronic Kidney Disease: Yes - ENDOCRINE/METABOLIC Hx Endocrine Disorders: Yes Hx Diabetes Mellitus Type 2: Yes - HEMATOLOGICAL/ONCOLOGICAL Hx Blood Disorders: Yes Other/Comment: Right LE DVT - INTEGUMENTARY Hx Dermatological Problems: Yes Hx Cellulitis: Yes - MUSCULOSKELETAL/RHEUMATOLOGICAL Hx Arthritis: Yes - GASTROINTESTINAL Hx Gastrointestinal Disorders: No - GENITOURINARY/GYNECOLOGICAL Hx Genitourinary Disorders: No - PSYCHIATRIC Hx Anxiety: No Hx Substance Use: No - SURGICAL HISTORY Hx Surgeries: Yes Hx Splenectomy: Yes Other/Comment: IVC Filter placement - ANESTHESIA Hx Anesthesia: Yes Hx Anesthesia Reactions: No Hx Malignant Hyperthermia: No Meds Allergies/Adverse Reactions: Allergies Allergy/AdvReac Type Severity Reaction Status Date / Time EGG Allergy Intermediate RASH Verified 10/13/17 08:14 - Medications Medications: Current Medications Albuterol/Ipratropium (Duoneb 3 Mg/0.5 Mg (3 Ml) Ud) 3 ml INH RQ6 PRN PRN Reason: Shortness of Breath Last Admin: 10/14/17 07:44 Dose: 3 ml Apixaban (Eliquis) 2.5 mg PO Q12 [facility] Last Admin: 10/14/17 09:24 Dose: 2.5 mg Aspirin (Aspirin Chewable) 81 mg PO DAILY [facility] Last Admin: 10/14/17 09:30 Dose: 81 mg Dextrose (Dextrose 50% Inj) 0 ml IV STAT PRN; Protocol PRN Reason: Hypoglycemia Protocol Dextrose (Glutose 15) 0 gm PO ONCE PRN; Protocol PRN Reason: Hypoglycemia Protocol Furosemide (Lasix) 40 mg IVP Q12 [facility] Last Admin: 10/14/17 09:24 Dose: 40 mg Glucagon (Glucagen Diagnostic Kit) 0 mg IM STAT PRN; Protocol PRN Reason: Hypoglycemia Protocol Dextrose (Dextrose 5% In Water 1000 Ml) 1,000 mls @ 0 mls/hr IV .Q0M PRN; Protocol; Per Protocol PRN Reason: Hypoglycemia Protocol Insulin Glargine (Lantus) 25 unit SC [facility] Last Admin: 10/13/17 22:38 Dose: 25 units Insulin Human Regular (Novolin R) 0 unit SC [facility] PRN Reason: Protocol Last Admin: 10/14/17 17:06 Dose: Not Given Metolazone (Zaroxolyn) 5 mg PO DAILY [facility] Last Admin: 10/14/17 10:49 Dose: 5 mg Metoprolol Succinate (Toprol Xl) 50 mg PO DAILY [facility] Last Admin: 10/14/17 10:49 Dose: 50 mg Montelukast Sodium (Singulair) 10 mg PO [facility] Last Admin: 10/13/17 22:35 Dose: 10 mg Pantoprazole Sodium (Protonix Ec Tab) 40 mg PO DAILY [facility] Last Admin: 10/14/17 09:30 Dose: 40 mg Rosuvastatin Calcium (Crestor) 20 mg PO [facility] Last Admin: 10/13/17 22:35 Dose: 20 mg Fluticasone/Salmeterol (Advair Diskus 250/50) 1 puff IH Q12 [facility] Last Admin: 10/14/17 10:20 Dose: Not Given Results - Vital Signs Recent Vital Signs: Last Vital Signs Temp 97.7 F 10/14/17 15:00 Pulse 92 H 10/14/17 16:26 Resp 20 10/14/17 15:00 BP 111/67 10/14/17 15:00 Pulse Ox 94 L 10/14/17 15:00 - Labs Result Diagrams: 10/13/17 08:33 10/14/17 16:26 Labs: Laboratory Results - last 24 hr 10/13/17 10/13/17 10/14/17 20:52 21:42 06:21 Sodium Potassium Chloride Carbon Dioxide Anion Gap BUN Creatinine Est GFR ( Amer) Est GFR (Non-Af Amer) POC Glucose (mg/dL) 245 H 248 H Random Glucose Calcium Phosphorus Magnesium Total Bilirubin AST ALT Alkaline Phosphatase Total Protein Albumin Globulin Albumin/Globulin Ratio Urine Color Yellow Urine Clarity Hazy Urine pH 5.0 Ur Specific [place] 1.015 Urine Protein 3+ H Urine Glucose (UA) 3+ H Urine Ketones Negative Urine Blood 1+ H Urine Nitrate Negative Urine Bilirubin Negative Urine Urobilinogen Normal Ur Leukocyte Esterase Neg Urine WBC (Auto) 4 Urine RBC (Auto) 4 H Ur Squamous Epith Cells 1 Urine Bacteria Rare Hyaline Casts 3-5 H 10/14/17 10/14/17 10/14/17 06:55 11:36 12:45 Sodium 138 Potassium 7.9 H* D 7.5 H* Chloride 97 L Carbon Dioxide 30 Anion Gap 19 BUN 70 H Creatinine 3.5 H Est GFR ( Amer) 23 Est GFR (Non-Af Amer) 19 POC Glucose (mg/dL) 223 H Random Glucose 242 H Calcium 8.5 L Phosphorus 7.6 H Magnesium 2.3 Total Bilirubin 0.7 AST 27 ALT 26 Alkaline Phosphatase 162 H Total Protein 7.5 Albumin 3.8 Globulin 3.7 Albumin/Globulin Ratio 1.0 Urine Color Urine Clarity Urine pH Ur Specific [place] Urine Protein Urine Glucose (UA) Urine Ketones Urine Blood Urine Nitrate Urine Bilirubin Urine Urobilinogen Ur Leukocyte Esterase Urine WBC (Auto) Urine RBC (Auto) Ur Squamous Epith Cells Urine Bacteria Hyaline Casts 10/14/17 10/14/17 10/14/17 13:48 14:53 16:26 Sodium 141 Potassium 6.1 H Chloride 97 L Carbon Dioxide 36 H Anion Gap 14 BUN 76 H Creatinine 3.7 H Est GFR ( Amer) 21 Est GFR (Non-Af Amer) 18 POC Glucose (mg/dL) 218 H 179 H Random Glucose 153 H Calcium 8.3 L Phosphorus Magnesium Total Bilirubin 0.8 AST 19 ALT 25 Alkaline Phosphatase 149 H Total Protein 7.2 Albumin 3.6 Globulin 3.6 Albumin/Globulin Ratio 1.0 Urine Color Urine Clarity Urine pH Ur Specific [place] Urine Protein Urine Glucose (UA) Urine Ketones Urine Blood Urine Nitrate Urine Bilirubin Urine Urobilinogen Ur Leukocyte Esterase Urine WBC (Auto) Urine RBC (Auto) Ur Squamous Epith Cells Urine Bacteria Hyaline Casts 10/14/17 16:49 Sodium Potassium Chloride Carbon Dioxide Anion Gap BUN Creatinine Est GFR ( Amer) Est GFR (Non-Af Amer) POC Glucose (mg/dL) 149 H Random Glucose Calcium Phosphorus Magnesium Total Bilirubin AST ALT Alkaline Phosphatase Total Protein Albumin Globulin Albumin/Globulin Ratio Urine Color Urine Clarity Urine pH Ur Specific [place] Urine Protein Urine Glucose (UA) Urine Ketones Urine Blood Urine Nitrate Urine Bilirubin Urine Urobilinogen Ur Leukocyte Esterase Urine WBC (Auto) Urine RBC (Auto) Ur Squamous Epith Cells Urine Bacteria Hyaline Casts Assessment & Plan - Assessment and Plan (Free Text) Assessment: (1) Hyperkalemia Status: Acute Mgt as per PMD (2) Acute on chronic renal failure Status: Acute (3) CHF (congestive heart failure) Status: Acute Chronic diastolic CHF (4) CO2 retention Status: Acute (5) COPD exacerbation Status: Acute (6) Nephrotic syndrome Status: Acute (7) Type 2 diabetes mellitus with diabetic nephropathy Status: Acute
--- NOTE | 2017-10-14 19:16 | CP.PCM.PN ---
Subjective - Date & Time of Evaluation Date of Evaluation: 10/14/17 Time of Evaluation: 11:30 - Subjective Subjective: Patient seen and examined. C/O weakness and dyspnea denies chest pain and fever Lethargic Physical Examination - Constitutional Appears: No Acute Distress - Head Exam Head Exam: ATRAUMATIC, NORMOCEPHALIC - Eye Exam Eye Exam: EOMI - ENT Exam ENT Exam: Mucous Membranes Moist - Respiratory Exam Respiratory Exam: Decreased Breath Sounds, Clear to Ausculation Bilateral, NORMAL BREATHING PATTERN - Cardiovascular Exam Cardiovascular Exam: +S1, +S2 - GI/Abdominal Exam GI & Abdominal Exam: Soft, Normal Bowel Sounds. absent: Tenderness - Extremities Exam Extremities Exam: absent: Calf Tenderness, Pedal Edema - Neurological Exam Neurological Exam: Alert, Awake - Psychiatric Exam Psychiatric exam: Normal Affect - Skin Skin Exam: Warm Objective - Vital Signs/Intake and Output Vital Signs (last 24 hours): Temp Pulse Resp BP Pulse Ox 97.7 F 92 H 20 111/67 94 L 10/14/17 15:00 10/14/17 16:26 10/14/17 15:00 10/14/17 15:00 10/14/17 15:00 Intake and Output: 10/14/17 10/15/17 18:59 06:59 Intake Total 550 Balance 550 - Medications Medications: Current Medications Albuterol/Ipratropium (Duoneb 3 Mg/0.5 Mg (3 Ml) Ud) 3 ml INH RQ6 PRN PRN Reason: Shortness of Breath Last Admin: 10/14/17 07:44 Dose: 3 ml Apixaban (Eliquis) 2.5 mg PO Q12 [facility] Last Admin: 10/14/17 09:24 Dose: 2.5 mg Aspirin (Aspirin Chewable) 81 mg PO DAILY [facility] Last Admin: 10/14/17 09:30 Dose: 81 mg Dextrose (Dextrose 50% Inj) 0 ml IV STAT PRN; Protocol PRN Reason: Hypoglycemia Protocol Dextrose (Glutose 15) 0 gm PO ONCE PRN; Protocol PRN Reason: Hypoglycemia Protocol Furosemide (Lasix) 40 mg IVP Q12 [facility] Last Admin: 10/14/17 09:24 Dose: 40 mg Glucagon (Glucagen Diagnostic Kit) 0 mg IM STAT PRN; Protocol PRN Reason: Hypoglycemia Protocol Dextrose (Dextrose 5% In Water 1000 Ml) 1,000 mls @ 0 mls/hr IV .Q0M PRN; Protocol; Per Protocol PRN Reason: Hypoglycemia Protocol Insulin Glargine (Lantus) 25 unit SC HS [facility] Last Admin: 10/13/17 22:38 Dose: 25 units Insulin Human Regular (Novolin R) 0 unit SC ACHS [facility] PRN Reason: Protocol Last Admin: 10/14/17 17:06 Dose: Not Given Metolazone (Zaroxolyn) 5 mg PO DAILY [facility] Last Admin: 10/14/17 10:49 Dose: 5 mg Metoprolol Succinate (Toprol Xl) 50 mg PO DAILY [facility] Last Admin: 10/14/17 10:49 Dose: 50 mg Montelukast Sodium (Singulair) 10 mg PO HS [facility] Last Admin: 10/13/17 22:35 Dose: 10 mg Pantoprazole Sodium (Protonix Ec Tab) 40 mg PO DAILY [facility] Last Admin: 10/14/17 09:30 Dose: 40 mg Rosuvastatin Calcium (Crestor) 20 mg PO HS [facility] Last Admin: 10/13/17 22:35 Dose: 20 mg Fluticasone/Salmeterol (Advair Diskus 250/50) 1 puff IH Q12 [facility] Last Admin: 10/14/17 10:20 Dose: Not Given - Labs Labs: 10/13/17 08:33 10/14/17 16:26 Assessment and Plan - Assessment and Plan (Free Text) Assessment: (1) Hyperkalemia Status: Acute Mgt as per PMD (2) Acute on chronic renal failure Status: Acute (3) CHF (congestive heart failure) Status: Acute Chronic diastolic CHF Prior Cath: Normal Coronaries (4) CO2 retention Status: Acute (5) COPD exacerbation Status: Acute (6) Nephrotic syndrome Status: Acute (7) Type 2 diabetes mellitus with diabetic nephropathy Status: Acute
--- NOTE | 2017-10-14 19:36 | CP.PCM.HP ---
History of Present Illness - History of Present Illness History of Present Illness: Chief complaint: Shortness of breath History present illness: 46-year-old male with history of COPD, bronchial asthma, diabetes, hypertension , DVT on anticoagulation History of liver disease, renal insufficiency, nephrotic range of proteinuria, history of a splenectomy. Patient at home using BiPAP, oxygen, nebulizers.Also recently seen by lung transplant team in [facility] for transplant eval and his o2 requirement is increasing with 4-6L/minute and using portable vent at home. Recently getting worse with leg swelling and edema. He started having increasing cough, shortness of breath, not able to walk and increasing leg swelling since it 2 days. He is also having cough mostly dry, some mucus noted. He did not have any fever, no chills noted, no recent sick exposure. Headache on and off noted. Patient is compliant with his medications, he is also taking Eliquis on a daily basis as patient climbs. He has significant weight gain recently. In the emergency room patient was placed on oxygen, but he was found hypoxic, placed on BiPAP and he was given nebulizer, Solu-Medrol now he is feeling slightly better. with nasal canula of 5l spo2 92% and he is comfortable now in the floor after being moved to floor from ED. Past medical history: History of COPD, bronchial asthma in the past, hypertension, diabetes, deep venous thrombosis, history of chronic liver disease, renal insufficiency, nephrotic range of proteinuria, history of splenectomy. Interstitial lung disease, history of hematuria. Also patient received hemodialysis in the past. he had respiratory failure and ventilatory support in the past and also episode of cardic event in the past Surgical history splenectomy Family history diabetes. Social history: 3 years ago used to be a smoker heavy. No known drug allergy Review of system: Currently having no headache, Having increasing shortness of breath noted. Cough occasionally noted. Wheezing present occasionally. Patient is in a brace at home, oxygen at,, BiPAP Currently having no chest pain. Minimal discomfort in the right upper shoulder region noted Exertional dyspnea noted. Leg swelling present Vital signs reviewed, hypoxia noted Minimal neck venous distention noted Chest good air entry bilaterally, bilateral diffuse wheezing noted crackles present especially in the lower lung capps. CVS regular heart sound, no murmur noted Abdomen soft, nontender. Extremities pedal edema 2+ [employer] alert awake oriented 3, no functional neurological deficit Labs reviewed Chest x-ray showing evidence of bilateral infiltrative changes, versus congestion. Elevated WBC noted Patient is having increasing proBNP level, creatinine level is stable. Currently on BiPAP, oxygen saturation is 92%. 40% FiO2 Assessment : 47-year-old male with multiple medical history including COPD, asthma, diabetes , hypertension, DVT history of IN in the past and liver disease. Patient possibly has obstructive sleep apnea renal insufficiency, History of splenectomy, history of dialysis in the past. On anticoagulations Interstitial lung disease. Patient now admitted to the emergency room with worsening pulmonary edema underlying pneumonia cannot be ruled out, worsening proteinuria with fluid overload status. Chronic respiratory failure with CO2 retention possibly type II. Plan: We will continue the BiPAP, maintaining the oxygen saturation more than 92%. Bronchodilators. Intravenous corticosteroid, will monitor the blood glucose Will continue the anticoagulation. acute on chronic renal failure Cardiac monitoring. Nephrology evaluation. Repeat blood gas analysis. GI prophylaxis. Discussed with the patient's , patient's mother in the emergency room. We will follow the patient Past Patient History - Infectious Disease Hx of Infectious Diseases: None - Past Medical History & Family History Past Medical History?: Yes Past Family History: Reviewed and not pertinent - Past Social History Smoking Status: Former Smoker Chewing Tobacco Use: No Cigar Use: No Alcohol: None Drugs: Denies Home Situation {Lives}: With Family - CARDIAC Hx Congestive Heart Failure: Yes Hx Hypertension: Yes - PULMONARY Hx Asthma: Yes Hx Chronic Obstructive Pulmonary Disease (COPD): Yes Hx Pneumonia: Yes - NEUROLOGICAL Hx Neurological Disorder: Yes - HEENT Hx HEENT Problems: No - RENAL Hx Chronic Kidney Disease: Yes - ENDOCRINE/METABOLIC Hx Endocrine Disorders: Yes Hx Diabetes Mellitus Type 2: Yes - HEMATOLOGICAL/ONCOLOGICAL Hx Blood Disorders: Yes Other/Comment: Right LE DVT - INTEGUMENTARY Hx Dermatological Problems: Yes Hx Cellulitis: Yes - MUSCULOSKELETAL/RHEUMATOLOGICAL Hx Arthritis: Yes - GASTROINTESTINAL Hx Gastrointestinal Disorders: No - GENITOURINARY/GYNECOLOGICAL Hx Genitourinary Disorders: No - PSYCHIATRIC Hx Anxiety: No Hx Substance Use: No - SURGICAL HISTORY Hx Surgeries: Yes Hx Splenectomy: Yes Other/Comment: IVC Filter placement - ANESTHESIA Hx Anesthesia: Yes Hx Anesthesia Reactions: No Hx Malignant Hyperthermia: No Meds Allergies/Adverse Reactions: Allergies Allergy/AdvReac Type Severity Reaction Status Date / Time EGG Allergy Intermediate RASH Verified 10/13/17 08:14 Results - Vital Signs Recent Vital Signs: Last Vital Signs Temp 97.7 F 10/14/17 15:00 Pulse 90 10/14/17 19:21 Resp 20 10/14/17 15:00 BP 111/67 10/14/17 15:00 Pulse Ox 94 L 10/14/17 15:00 - Labs Result Diagrams: 10/15/17 17:56 10/15/17 17:56 Labs: Laboratory Results - last 24 hr 10/13/17 10/13/17 10/14/17 20:52 21:42 06:21 Sodium Potassium Chloride Carbon Dioxide Anion Gap BUN Creatinine Est GFR ( Amer) Est GFR (Non-Af Amer) POC Glucose (mg/dL) 245 H 248 H Random Glucose Calcium Phosphorus Magnesium Total Bilirubin AST ALT Alkaline Phosphatase Total Protein Albumin Globulin Albumin/Globulin Ratio Urine Color Yellow Urine Clarity Hazy Urine pH 5.0 Ur Specific [place] 1.015 Urine Protein 3+ H Urine Glucose (UA) 3+ H Urine Ketones Negative Urine Blood 1+ H Urine Nitrate Negative Urine Bilirubin Negative Urine Urobilinogen Normal Ur Leukocyte Esterase Neg Urine WBC (Auto) 4 Urine RBC (Auto) 4 H Ur Squamous Epith Cells 1 Urine Bacteria Rare Hyaline Casts 3-5 H 10/14/17 10/14/17 10/14/17 06:55 11:36 12:45 Sodium 138 Potassium 7.9 H* D 7.5 H* Chloride 97 L Carbon Dioxide 30 Anion Gap 19 BUN 70 H Creatinine 3.5 H Est GFR ( Amer) 23 Est GFR (Non-Af Amer) 19 POC Glucose (mg/dL) 223 H Random Glucose 242 H Calcium 8.5 L Phosphorus 7.6 H Magnesium 2.3 Total Bilirubin 0.7 AST 27 ALT 26 Alkaline Phosphatase 162 H Total Protein 7.5 Albumin 3.8 Globulin 3.7 Albumin/Globulin Ratio 1.0 Urine Color Urine Clarity Urine pH Ur Specific [place] Urine Protein Urine Glucose (UA) Urine Ketones Urine Blood Urine Nitrate Urine Bilirubin Urine Urobilinogen Ur Leukocyte Esterase Urine WBC (Auto) Urine RBC (Auto) Ur Squamous Epith Cells Urine Bacteria Hyaline Casts 10/14/17 10/14/17 10/14/17 13:48 14:53 16:26 Sodium 141 Potassium 6.1 H Chloride 97 L Carbon Dioxide 36 H Anion Gap 14 BUN 76 H Creatinine 3.7 H Est GFR ( Amer) 21 Est GFR (Non-Af Amer) 18 POC Glucose (mg/dL) 218 H 179 H Random Glucose 153 H Calcium 8.3 L Phosphorus Magnesium Total Bilirubin 0.8 AST 19 ALT 25 Alkaline Phosphatase 149 H Total Protein 7.2 Albumin 3.6 Globulin 3.6 Albumin/Globulin Ratio 1.0 Urine Color Urine Clarity Urine pH Ur Specific [place] Urine Protein Urine Glucose (UA) Urine Ketones Urine Blood Urine Nitrate Urine Bilirubin Urine Urobilinogen Ur Leukocyte Esterase Urine WBC (Auto) Urine RBC (Auto) Ur Squamous Epith Cells Urine Bacteria Hyaline Casts 10/14/17 16:49 Sodium Potassium Chloride Carbon Dioxide Anion Gap BUN Creatinine Est GFR ( Amer) Est GFR (Non-Af Amer) POC Glucose (mg/dL) 149 H Random Glucose Calcium Phosphorus Magnesium Total Bilirubin AST ALT Alkaline Phosphatase Total Protein Albumin Globulin Albumin/Globulin Ratio Urine Color Urine Clarity Urine pH Ur Specific [place] Urine Protein Urine Glucose (UA) Urine Ketones Urine Blood Urine Nitrate Urine Bilirubin Urine Urobilinogen Ur Leukocyte Esterase Urine WBC (Auto) Urine RBC (Auto) Ur Squamous Epith Cells Urine Bacteria Hyaline Casts
[2017-10-14] MEDS: (Lantus) Insulin Glargine, Recombinant SC SCH (22:03)
[2017-10-15] MEDS: Albuterol-Ipratrop 3 mg / 0.5 (3 ml) UD INH PRN (07:10)
[2017-10-15] MEDS: (Novolin R) Insulin Human Regular 100 units/ml vial SC SCH ×3 (07:50→18:00)
[2017-10-15 08:17] LABS: ALBUMIN 3.7 g/dL (3.5-5.0); CALCIUM 7.8 mg/dl (8.6-10.4)
--- NOTE | 2017-10-15 09:11 | CP.PCM.PN ---
Subjective - Date & Time of Evaluation Date of Evaluation: 10/15/17 Time of Evaluation: 09:11 - Subjective Subjective: this am pt sitting up comfortable eating awaiting k level Objective - Vital Signs/Intake and Output Vital Signs (last 24 hours): Temp Pulse Resp BP Pulse Ox 97.4 F L 92 H 20 124/81 100 10/15/17 07:45 10/15/17 07:45 10/15/17 07:45 10/15/17 07:45 10/15/17 07:45 - Medications Medications: Current Medications Albuterol/Ipratropium (Duoneb 3 Mg/0.5 Mg (3 Ml) Ud) 3 ml INH RQ6 PRN PRN Reason: Shortness of Breath Last Admin: 10/15/17 07:10 Dose: 3 ml Apixaban (Eliquis) 2.5 mg PO Q12 [facility] Last Admin: 10/14/17 22:03 Dose: 2.5 mg Aspirin (Aspirin Chewable) 81 mg PO DAILY [facility] Last Admin: 10/14/17 09:30 Dose: 81 mg Dextrose (Dextrose 50% Inj) 0 ml IV STAT PRN; Protocol PRN Reason: Hypoglycemia Protocol Dextrose (Glutose 15) 0 gm PO ONCE PRN; Protocol PRN Reason: Hypoglycemia Protocol Furosemide (Lasix) 40 mg IVP Q12 [facility] Last Admin: 10/14/17 22:02 Dose: 40 mg Glucagon (Glucagen Diagnostic Kit) 0 mg IM STAT PRN; Protocol PRN Reason: Hypoglycemia Protocol Dextrose (Dextrose 5% In Water 1000 Ml) 1,000 mls @ 0 mls/hr IV .Q0M PRN; Protocol; Per Protocol PRN Reason: Hypoglycemia Protocol Insulin Glargine (Lantus) 25 unit SC [facility] Last Admin: 10/14/17 22:03 Dose: 25 units Insulin Human Regular (Novolin R) 0 unit SC ACHS [facility] PRN Reason: Protocol Last Admin: 10/15/17 07:50 Dose: 2 units Metolazone (Zaroxolyn) 5 mg PO DAILY [facility] Last Admin: 10/14/17 10:49 Dose: 5 mg Metoprolol Succinate (Toprol Xl) 50 mg PO DAILY [facility] Last Admin: 10/14/17 10:49 Dose: 50 mg Montelukast Sodium (Singulair) 10 mg PO [facility] Last Admin: 10/14/17 22:03 Dose: 10 mg Pantoprazole Sodium (Protonix Ec Tab) 40 mg PO DAILY [facility] Last Admin: 10/14/17 09:30 Dose: 40 mg Rosuvastatin Calcium (Crestor) 20 mg PO HS [facility] Last Admin: 10/14/17 22:03 Dose: 20 mg Fluticasone/Salmeterol (Advair Diskus 250/50) 1 puff IH Q12 [facility] Last Admin: 10/14/17 23:03 Dose: Not Given Sodium Bicarbonate (Sodium Bicarbonate Tab) 650 mg PO TID [facility] Sodium Polystyrene Sulfonate (Kayexalate Susp) 30 gm PO BID [facility] - Labs Labs: 10/13/17 08:33 10/15/17 07:04
--- NOTE | 2017-10-15 09:11 | CP.PCM.PN ---
Subjective - Date & Time of Evaluation Date of Evaluation: 10/14/17 Time of Evaluation: 20:28 - Subjective Subjective: high k noted treatment given improved to 6.2 but still high continue kayoxalate will repeat again in the morning cardiac rhythm analysis normal sinus with no evidence of fito. pt comfortable and sitting no distress will repeat the K one more kayoxalate given if not improves he will need HD will plan if no improvement Objective - Vital Signs/Intake and Output Vital Signs (last 24 hours): Temp Pulse Resp BP Pulse Ox 97.4 F L 92 H 20 124/81 100 10/15/17 07:45 10/15/17 07:45 10/15/17 07:45 10/15/17 07:45 10/15/17 07:45 - Medications Medications: Current Medications Albuterol/Ipratropium (Duoneb 3 Mg/0.5 Mg (3 Ml) Ud) 3 ml INH RQ6 PRN PRN Reason: Shortness of Breath Last Admin: 10/15/17 07:10 Dose: 3 ml Apixaban (Eliquis) 2.5 mg PO Q12 [facility] Last Admin: 10/14/17 22:03 Dose: 2.5 mg Aspirin (Aspirin Chewable) 81 mg PO DAILY [facility] Last Admin: 10/14/17 09:30 Dose: 81 mg Dextrose (Dextrose 50% Inj) 0 ml IV STAT PRN; Protocol PRN Reason: Hypoglycemia Protocol Dextrose (Glutose 15) 0 gm PO ONCE PRN; Protocol PRN Reason: Hypoglycemia Protocol Furosemide (Lasix) 40 mg IVP Q12 [facility] Last Admin: 10/14/17 22:02 Dose: 40 mg Glucagon (Glucagen Diagnostic Kit) 0 mg IM STAT PRN; Protocol PRN Reason: Hypoglycemia Protocol Dextrose (Dextrose 5% In Water 1000 Ml) 1,000 mls @ 0 mls/hr IV .Q0M PRN; Protocol; Per Protocol PRN Reason: Hypoglycemia Protocol Insulin Glargine (Lantus) 25 unit SC HS [facility] Last Admin: 10/14/17 22:03 Dose: 25 units Insulin Human Regular (Novolin R) 0 unit SC ACHS [facility] PRN Reason: Protocol Last Admin: 10/15/17 07:50 Dose: 2 units Metolazone (Zaroxolyn) 5 mg PO DAILY [facility] Last Admin: 10/14/17 10:49 Dose: 5 mg Metoprolol Succinate (Toprol Xl) 50 mg PO DAILY [facility] Last Admin: 10/14/17 10:49 Dose: 50 mg Montelukast Sodium (Singulair) 10 mg PO HS [facility] Last Admin: 10/14/17 22:03 Dose: 10 mg Pantoprazole Sodium (Protonix Ec Tab) 40 mg PO DAILY [facility] Last Admin: 10/14/17 09:30 Dose: 40 mg Rosuvastatin Calcium (Crestor) 20 mg PO HS [facility] Last Admin: 10/14/17 22:03 Dose: 20 mg Fluticasone/Salmeterol (Advair Diskus 250/50) 1 puff IH Q12 [facility] Last Admin: 10/14/17 23:03 Dose: Not Given Sodium Bicarbonate (Sodium Bicarbonate Tab) 650 mg PO TID [facility] Sodium Polystyrene Sulfonate (Kayexalate Susp) 30 gm PO BID [facility] - Labs Labs: 10/13/17 08:33 10/15/17 07:04
[2017-10-15] MEDS ORDERED: Metoprolol Succinate 25 mg XL Tab PO SCH (09:12)
[2017-10-15] MEDS: Pantoprazole 40 mg EC Tab PO SCH (09:12)
[2017-10-15] MEDS: Metoprolol Succinate 50 mg XL Tab PO SCH (09:12)
[2017-10-15] MEDS: metOLazone 5 MG TAB PO SCH (09:12)
[2017-10-15] MEDS: Sod Polystyrene Sulf 15 gm/60 ml Susp PO SCH ×2 (09:14→18:53)
[2017-10-15] MEDS ORDERED: Furosemide 10 mg/mL LIQ (60mL) PO STA (11:00)
[2017-10-15 11:03] LABS: BASO # 0.1 K/uL (0.0-0.2); BASO % 0.9 % (0.0-2.0); EOS # 0.3 K/uL (0.0-0.7); EOS % 1.9 % (0.0-4.0); HEMOGLOBIN 11.3 g/dL (12.0-18.0); LYMPH # 2.1 K/uL (1.0-4.3); MEAN CORPUSCULAR HEMOGLOBIN 28.1 pg (27.0-31.0); MEAN CORPUSCULAR HGB CONC 30.7 g/dL (33.0-37.0); MEAN PLATELET VOLUME 10.5 fL (7.2-11.7); MONO # 1.9 K/uL (0.0-0.8); MONO % 11.7 % (0.0-10.0); NEUT # 11.9 K/uL (1.8-7.0); NEUT % 72.5 % (50.0-75.0); NRBC % 1.7 % (0.0-2.0); RBC 4.02 Mil/uL (4.40-5.90); RED CELL DISTRIBUTION WIDTH 18.5 % (11.5-14.5); WHITE BLOOD COUNT 16.4 K/uL (4.8-10.8)
[2017-10-15 11:07] LABS: MEAN CELL VOLUME 91.5 fL (80.0-94.0)
--- NOTE | 2017-10-15 11:49 | CP.PCM.PN ---
Subjective - Date & Time of Evaluation Date of Evaluation: 10/15/17 Time of Evaluation: 11:48 - Subjective Subjective: spoke to renal will need HD I spoke to nurse for possible cath placement and transfer to ICU for first HD as the nurse planning for transfer pt sustained fall and become cardiac arrest pt resuscitated and transferred to ICU on vent vitals showing improvement but mental status is unclear possible hypoxic and anoxic cant be rulled out pt with history of COPD, bronchial asthma in the past, hypertension, diabetes, deep venous thrombosis, history of chronic liver disease, renal insufficiency, nephrotic range of proteinuria, history of splenectomy. Interstitial lung disease, history of hematuria. chronic respiratory failure being evaluated for lung transplant but he had multiple contraindications. now with cardiac arrest I spoke to family and mother and other family members condition critical prognosis poor Objective - Vital Signs/Intake and Output Vital Signs (last 24 hours): Temp Pulse Resp BP Pulse Ox 97.4 F L 92 H 20 120/78 100 10/15/17 07:45 10/15/17 07:45 10/15/17 07:45 10/15/17 09:11 10/15/17 07:45 - Medications Medications: Current Medications Albuterol/Ipratropium (Duoneb 3 Mg/0.5 Mg (3 Ml) Ud) 3 ml INH RQ6 PRN PRN Reason: Shortness of Breath Last Admin: 10/15/17 07:10 Dose: 3 ml Apixaban (Eliquis) 2.5 mg PO Q12 [facility] Last Admin: 10/15/17 09:12 Dose: 2.5 mg Aspirin (Aspirin Chewable) 81 mg PO DAILY [facility] Last Admin: 10/15/17 09:12 Dose: 81 mg Dextrose (Dextrose 50% Inj) 0 ml IV STAT PRN; Protocol PRN Reason: Hypoglycemia Protocol Dextrose (Glutose 15) 0 gm PO ONCE PRN; Protocol PRN Reason: Hypoglycemia Protocol Furosemide (Lasix) 40 mg IVP Q12 [facility] Last Admin: 10/15/17 09:11 Dose: 40 mg Glucagon (Glucagen Diagnostic Kit) 0 mg IM STAT PRN; Protocol PRN Reason: Hypoglycemia Protocol Dextrose (Dextrose 5% In Water 1000 Ml) 1,000 mls @ 0 mls/hr IV .Q0M PRN; Protocol; Per Protocol PRN Reason: Hypoglycemia Protocol Insulin Glargine (Lantus) 25 unit SC HS [facility] Last Admin: 10/14/17 22:03 Dose: 25 units Insulin Human Regular (Novolin R) 0 unit SC [facility] PRN Reason: Protocol Last Admin: 10/15/17 07:50 Dose: 2 units Metolazone (Zaroxolyn) 5 mg PO DAILY [facility] Last Admin: 10/15/17 09:12 Dose: 5 mg Metoprolol Succinate (Toprol Xl) 25 mg PO DAILY [facility] Montelukast Sodium (Singulair) 10 mg PO [facility] Last Admin: 10/14/17 22:03 Dose: 10 mg Pantoprazole Sodium (Protonix Ec Tab) 40 mg PO DAILY [facility] Last Admin: 10/15/17 09:12 Dose: 40 mg Rosuvastatin Calcium (Crestor) 20 mg PO [facility] Last Admin: 10/14/17 22:03 Dose: 20 mg Fluticasone/Salmeterol (Advair Diskus 250/50) 1 puff IH Q12 [facility] Last Admin: 10/14/17 23:03 Dose: Not Given Sodium Bicarbonate (Sodium Bicarbonate Tab) 650 mg PO TID [facility] Last Admin: 10/15/17 09:14 Dose: 650 mg Sodium Polystyrene Sulfonate (Kayexalate Susp) 30 gm PO BID [facility] Last Admin: 10/15/17 09:14 Dose: 30 gm - Labs Labs: 10/15/17 10:40 10/15/17 07:04
[2017-10-15 12:01] LABS: ARTERIAL BLOOD GAS HCO3 19.6 mmol/L (21-28); ARTERIAL BLOOD GAS O2 SAT 74.4 % (95-98); ARTERIAL BLOOD GAS PCO2 130 mm/Hg (35-45); ARTERIAL BLOOD GAS PH 6.97 (7.35-7.45); ARTERIAL BLOOD GAS PO2 45 mm/Hg (80-100); ARTERIAL BLOOD GAS TCO2 33.9 mmol/L (22-28)
[2017-10-15] MEDS ORDERED: DOPamine 400mg/250ml D5W 400 MG/250 ML BAG IV PRN (12:30)
[2017-10-15] MEDS ORDERED: Pantoprazole 80 MG in Sodium Chloride 0.9% 100 ML IVPB ONE (13:00)
[2017-10-15] MEDS ORDERED: Pantoprazole 80 MG in Sodium Chloride 0.9% 100 ML IVP ONE (13:00)
[2017-10-15 13:39] LABS: ARTERIAL BLOOD GAS HCO3 25.8 mmol/L (21-28); ARTERIAL BLOOD GAS O2 SAT 95.3 % (95-98); ARTERIAL BLOOD GAS PCO2 87 mm/Hg (35-45); ARTERIAL BLOOD GAS PH 7.18 (7.35-7.45); ARTERIAL BLOOD GAS PO2 69 mm/Hg (80-100); ARTERIAL BLOOD GAS TCO2 35.2 mmol/L (22-28)
--- NOTE | 2017-10-15 13:41 | PCM.ANES ---
Anesthesia Emergent Intubation - Diagnosis Working Diagnosis:: cardiac arrest, code blue - Pre-Intubation Vital Signs Oxygen Delivery Method: Ambu-Bag Level Of Consciousness: Comatose/Unresponsive - Method of Intubation Intubation Method: Oral ETT ETT Size: 8.0 Lipline@: 23 Easy: Yes Atramatic: Yes - Intubation Devices Alessandro Blade Size Used: 3 - Placement Confirmation Breath Sounds Present & Equal Bilaterally: Yes Gurgling Sounds Not Audible at Epigastrum: Yes Positive EtCO2: Yes Recommendations: Ventilator, Chest X Ray, ABG
[2017-10-15] MEDS ORDERED: Sodium Bicarbonate (8.4%) 50 Meq Syringe IVP ONE ×2 (13:42→14:15)
--- NOTE | 2017-10-15 13:47 | PCM.RRT ---
Addendum entered and electronically signed by Curly Robertson 10/16/17 09:01: The following medications were administered during Code blue: Epinephrine IV at 11:34, 11:40 (2 amps via ET), 11:44 and 11:46am Dopamine at 11:42am Calcium chloride at 11:35 and 11:45 Sodium bicarbonate at 11:43 and 11:50 Original Note: <Curly Robertson - Last Filed: 10/15/17 19:59> BRIDGE CONTRACTOR Nurses Assessment - Situation Date: 10/15/17 Time BRIDGE CONTRACTOR was called: 11:30 BRIDGE CONTRACTOR Responder Arrival Time:: 11:31 BRIDGE CONTRACTOR Location:: Med/Surg BRIDGE CONTRACTOR Called By: RN - IV IV Inserted during BRIDGE CONTRACTOR?: No - Ventilator Settings FIO2 (% Oxygen): 80 - Neurological Status (Select all that apply): Weakness. absent: Alert, Responsive, Oriented, Verbal , Follows Commands - Respiratory Oxygen Delivery Method: Face Mask @% - Constitutional Appears: Toxic - Head Head Exam: ATRAUMATIC, NORMOCEPHALIC - Eyes Eye Exam: Periorbital swelling - Cardiovascular Exam Cardiovascular Exam: absent: +S1, +S2 Additional comments: not responding to sternal rub - GI/Abdominal Exam GI & Abdominal Exam: Soft - Neurological Exam Neurological Exam: Altered. absent: Alert, Awake Plan - Assessment of Findings&Treatment Plan BRIDGE CONTRACTOR that turned into Code blue Patient is a 47 year old male with pmhx of COPD, bronchial asthma, diabetes, hypertension, DVT on anticoagulation, s/p IVC filter right leg. Nurse found patient coming from Bathroom at 11:29, leaning in the wall, felt weak and assisted to the floor. BRIDGE CONTRACTOR was called team @ 11:30 and team came right away . Code blue was called at 11:32 after patient was found to not have a pulse. CPR was initiated and ventilation via face mask was applied. Patient was intubated. I.O was done by Dr Quiana Jalloh to left leg. Dr Long was made aware at 11:30. Accu check :228 ABG was drawn. 1205 Patient was transfer to ICU bed # 1 -IV D50w -IV insulin 10 units Will verify remainder medication given during Code blue in the am, unable to obtain complete list of medication from nursing at this time <Ryann Ruth - Last Filed: 10/16/17 12:38> <Rick Vargas - Last Filed: 10/19/17 14:51> Attending/Attestation - Attestation I have personally seen and examined this patient.: Yes I have fully participated in the care of the patient.: Yes I have reviewed all pertinent clinical information, including history, physical exam and plan: Yes Notes (Text): 10/19/17 14:47 BRIDGE CONTRACTOR was called and when I arrived he was not breathing and no hear rate and we called a CODE BLUE. This is a patient known to me from a long time ago. He has been on the hospitalist service every once a while usually secondary to complications from his heart disease or lung disease. He was found on the floor when I came and CPR was immediately started. Per review of the charts, there is concerned for high K likley secondary from worsening kidney disease and so we administered calcium gluconate quickly and then attempted to give low dose IV insulin. Anesthesia came and he was successfully intubated. ICU was able to start a I/O access. He was on the floor during the duration of the CODE and was moved to a [facility] (formerly [facility]3] and brought to the ICU This note is being signed at a later date when I returned to the hospital, however I was present during the CODE thank you Rick Vargas
--- NOTE | 2017-10-15 13:47 | PCM.PROC ---
Procedures Attestation:: I certify that I have explained the specified Operation(s) or Procedure(s), risks, benefits and reasonable alternatives to the Patient and/or other person responsible. The opportunity was given to ask questions and all questions answered - Arterial Line Left Radial Aseptic technique was employed throughout the procedure: Full sterile barriers ( mask, hair cover, sterile gown, sterile gloves), Chloraprep Antiseptic: 30 second prep for IJ or SC sites Time Out Performed: Yes Pt. placed on Pulse Ox Monitor: Yes Central Line Prep: Chlorhexidine-Alcohol Combination Local Anesthesia Used: Lidocaine 1% Amount of Anesthesia Used (mls): 5 Ultrasound Used for Placement: No Gauge (Size): 20 gauge Technique Used: Guide Wire Technique Secured by: Suture Post procedure dressing: Gauze, Clear vapor permeable, Chlorhexidine disc ( Biopatch) Patient Tolerated Procedure: well Immediate Complications: none - Central Line Placement Left Internal Jugular Hemodialysis Access Aseptic technique was employed throughout the procedure: Full sterile barriers ( mask, hair cover, sterile gown, sterile gloves), Full body sterile drape, Chloraprep Antiseptic: 30 second prep for IJ or SC sites CVP Time Out Performed: Yes Pt. Placed on Pulse Ox Monitor: Yes Central Line Prep: Chlorhexidine-Alcohol Combination Local Anesthesia Used: Lidocaine 1% Amount of Anesthesia Used (mls): 5 Ultrasound Used for Placement: Yes Central Line Lumen Inserted: double Central Line Length: 20 cm Post Procedure: Sutured in Place, Good Blood Return, All Ports Aspirated, Flushed, Capped, Sterile Dressing Applied Secured by: Suture Post procedure dressing: Gauze, Clear vapor permeable, Chlorhexidine disc ( Biopatch) Post Procedure X-Ray: Yes Patient Tolerated Procedure: Well Immediate Complications: None
[2017-10-15] MEDS: Albuterol-Ipratrop 3 mg / 0.5 (3 ml) UD INH SCH ×2 (14:15→19:22)
--- NOTE | 2017-10-15 14:49 | RAD ---
Date of service: 10/15/2017 HISTORY: ch COMPARISON: Comparison is made with 10/13/2017 FINDINGS: LUNGS: Interval significant worsening of diffuse hazy opacities in the lungs likely represent pulmonary congestion. PLEURA: Possible right pleural effusion. CARDIOVASCULAR: The cardiac silhouette is enlarged. OSSEOUS STRUCTURES: No significant abnormalities. VISUALIZED UPPER ABDOMEN: Normal. OTHER FINDINGS: None. IMPRESSION: Interval worsening of pulmonary congestion since the previous exam.
--- NOTE | 2017-10-15 15:08 | CP.PCM.CON ---
History of Present Illness - History of Present Illness History of Present Illness: PAtient seen and examined at bedside at 11:33AM: 47 y/o male with PMH of COPD, DM, HTN, CKD, Liver disease and DVT s/p IVC filter on eliquis. Consulted at 11:24 AM for HD. Patient had a cardiac arrest at 11:33AM. POtassium elevated on 10/14, which decreased, but then rised again. ICU consulted for HD. I saw and examined patient during cardiac arrest. Patient had asystole and was resusitated. Please see Code sheet for more details. Left tibial IO line palce, left radial arterial line placed, left IJ HD line placed. Patient HD post code. Past Medical History: COPD, DM, HTN, CKD, Liver disease and DVT s/p IVC filter on eliquis Past Surgical history: Splenectomy, IVC filter Allergies: Egg Social : Quit smoking 3 years ago Review of Systems: limited as patient was post cardiac arrest. Review of Systems - Review of Systems Review of Systems: limited as patient was intubated Past Patient History - Infectious Disease Hx of Infectious Diseases: None - Past Medical History & Family History Past Medical History?: Yes Past Family History: Reviewed and not pertinent - Past Social History Smoking Status: Former Smoker Chewing Tobacco Use: No Cigar Use: No Alcohol: None Drugs: Denies Home Situation {Lives}: With Family - CARDIAC Hx Congestive Heart Failure: Yes Hx Hypertension: Yes - PULMONARY Hx Asthma: Yes Hx Chronic Obstructive Pulmonary Disease (COPD): Yes Hx Pneumonia: Yes - NEUROLOGICAL Hx Neurological Disorder: Yes - HEENT Hx HEENT Problems: No - RENAL Hx Chronic Kidney Disease: Yes - ENDOCRINE/METABOLIC Hx Endocrine Disorders: Yes Hx Diabetes Mellitus Type 2: Yes - HEMATOLOGICAL/ONCOLOGICAL Hx Blood Disorders: Yes Other/Comment: Right LE DVT - INTEGUMENTARY Hx Dermatological Problems: Yes Hx Cellulitis: Yes - MUSCULOSKELETAL/RHEUMATOLOGICAL Hx Arthritis: Yes - GASTROINTESTINAL Hx Gastrointestinal Disorders: No - GENITOURINARY/GYNECOLOGICAL Hx Genitourinary Disorders: No - PSYCHIATRIC Hx Anxiety: No Hx Substance Use: No - SURGICAL HISTORY Hx Surgeries: Yes Hx Splenectomy: Yes Other/Comment: IVC Filter placement - ANESTHESIA Hx Anesthesia: Yes Hx Anesthesia Reactions: No Hx Malignant Hyperthermia: No Meds Allergies/Adverse Reactions: Allergies Allergy/AdvReac Type Severity Reaction Status Date / Time EGG Allergy Intermediate RASH Verified 10/13/17 08:14 - Medications Medications: Current Medications Albuterol/Ipratropium (Duoneb 3 Mg/0.5 Mg (3 Ml) Ud) 3 ml INH RQ6 [facility] Last Admin: 10/15/17 14:15 Dose: Not Given Aspirin (Aspirin Chewable) 81 mg PO DAILY [facility] Last Admin: 10/15/17 09:12 Dose: 81 mg Dextrose (Dextrose 50% Inj) 0 ml IV STAT PRN; Protocol PRN Reason: Hypoglycemia Protocol Dextrose (Glutose 15) 0 gm PO ONCE PRN; Protocol PRN Reason: Hypoglycemia Protocol Glucagon (Glucagen Diagnostic Kit) 0 mg IM STAT PRN; Protocol PRN Reason: Hypoglycemia Protocol Dextrose (Dextrose 5% In Water 1000 Ml) 1,000 mls @ 0 mls/hr IV .Q0M PRN; Protocol; Per Protocol PRN Reason: Hypoglycemia Protocol Insulin Glargine (Lantus) 25 unit SC [facility] Last Admin: 10/14/17 22:03 Dose: 25 units Insulin Human Regular (Novolin R) 0 unit SC ACHS [facility] PRN Reason: Protocol Last Admin: 10/15/17 13:59 Dose: Not Given Metolazone (Zaroxolyn) 5 mg PO DAILY [facility] Last Admin: 10/15/17 09:12 Dose: 5 mg Pantoprazole Sodium (Protonix Inj) 40 mg IVP Q12H [facility] Rosuvastatin Calcium (Crestor) 20 mg PO [facility] Last Admin: 10/14/17 22:03 Dose: 20 mg Sodium Bicarbonate (Sodium Bicarbonate Tab) 650 mg PO TID [facility] Last Admin: 10/15/17 09:14 Dose: 650 mg Sodium Polystyrene Sulfonate (Kayexalate Susp) 30 gm PO BID [facility] Last Admin: 10/15/17 09:14 Dose: 30 gm Physical Exam - Head Exam Additional comments: intubated - Eye Exam Pupil Exam: Fixed - Neck Exam Neck exam: Positive for: Normal Inspection - Respiratory Exam Respiratory Exam: Decreased Breath Sounds, Rales, Rhonchi, Wheezes, Respiratory Distress - Cardiovascular Exam Cardiovascular Exam: REGULAR RHYTHM, +S1, +S2, Systolic Murmur - GI/Abdominal Exam GI & Abdominal Exam: Distended, Soft. absent: Guarding, Rebound, Rigid, Tenderness - Neurological Exam Neurological exam: Altered - Skin Skin Exam: Normal Color Results - Vital Signs Recent Vital Signs: Last Vital Signs Temp 97.4 F L 07/29/18 07:45 Pulse 92 H 10/15/17 07:45 Resp 20 10/15/17 07:45 BP 120/78 10/15/17 09:11 Pulse Ox 100 10/15/17 07:45 - Labs Result Diagrams: 10/15/17 17:56 10/15/17 17:56 Labs: Laboratory Results - last 24 hr 10/14/17 10/14/17 10/14/17 13:48 14:53 16:26 WBC RBC Hgb Hct MCV MCH MCHC RDW Plt Count MPV Neut % (Auto) Lymph % (Auto) Quay % (Auto) Eos % (Auto) Baso % (Auto) Neut # (Auto) Lymph # (Auto) Quay # (Auto) Eos # (Auto) Baso # (Auto) Puncture Site pCO2 pO2 HCO3 ABG pH ABG Total CO2 ABG O2 Saturation ABG Base Excess Philippe Test ABG Potassium A-a O2 Difference Respiratory Index Glucose Lactate Mechanical Rate FiO2 Tidal Volume PEEP Blood Gas Comments Crit Value Called To Crit Value Called By Crit Value Read Back Blood Gas Notified Time Sodium 141 Potassium 6.1 H Chloride 97 L Carbon Dioxide 36 H Anion Gap 14 BUN 76 H Creatinine 3.7 H Est GFR ( Amer) 21 Est GFR (Non-Af Amer) 18 POC Glucose (mg/dL) 218 H 179 H Random Glucose 153 H Calcium 8.3 L Phosphorus Magnesium Total Bilirubin 0.8 AST 19 ALT 25 Alkaline Phosphatase 149 H Total Protein 7.2 Albumin 3.6 Globulin 3.6 Albumin/Globulin Ratio 1.0 Arterial Blood Potassium Urine Collection Time Urine Total Volume Ur Protein 24 Hr Calc 10/14/17 10/14/17 10/14/17 16:49 21:19 21:40 WBC RBC Hgb Hct MCV MCH MCHC RDW Plt Count MPV Neut % (Auto) Lymph % (Auto) Quay % (Auto) Eos % (Auto) Baso % (Auto) Neut # (Auto) Lymph # (Auto) Quay # (Auto) Eos # (Auto) Baso # (Auto) Puncture Site pCO2 pO2 HCO3 ABG pH ABG Total CO2 ABG O2 Saturation ABG Base Excess Philippe Test ABG Potassium A-a O2 Difference Respiratory Index Glucose Lactate Mechanical Rate FiO2 Tidal Volume PEEP Blood Gas Comments Crit Value Called To Crit Value Called By Crit Value Read Back Blood Gas Notified Time Sodium Potassium Chloride Carbon Dioxide Anion Gap BUN Creatinine Est GFR ( Amer) Est GFR (Non-Af Amer) POC Glucose (mg/dL) 149 H 168 H Random Glucose Calcium Phosphorus Magnesium Total Bilirubin AST ALT Alkaline Phosphatase Total Protein Albumin Globulin Albumin/Globulin Ratio Arterial Blood Potassium Urine Collection Time 24 Urine Total Volume 650 Ur Protein 24 Hr Calc 9958.0 H 10/15/17 10/15/17 10/15/17 06:23 07:04 10:40 WBC 16.4 H RBC 4.02 L Hgb 11.3 L Hct 36.8 MCV 91.5 D MCH 28.1 MCHC 30.7 L RDW 18.5 H Plt Count 115 L MPV 10.5 Neut % (Auto) 72.5 Lymph % (Auto) 13.0 L Quay % (Auto) 11.7 H Eos % (Auto) 1.9 Baso % (Auto) 0.9 Neut # (Auto) 11.9 H Lymph # (Auto) 2.1 Quay # (Auto) 1.9 H Eos # (Auto) 0.3 Baso # (Auto) 0.1 Puncture Site pCO2 pO2 HCO3 ABG pH ABG Total CO2 ABG O2 Saturation ABG Base Excess Philippe Test ABG Potassium A-a O2 Difference Respiratory Index Glucose Lactate Mechanical Rate FiO2 Tidal Volume PEEP Blood Gas Comments Crit Value Called To Crit Value Called By Crit Value Read Back Blood Gas Notified Time Sodium 139 Potassium 6.7 H* Chloride 96 L Carbon Dioxide 30 Anion Gap 18 BUN 86 H Creatinine 4.4 H Est GFR ( Amer) 17 Est GFR (Non-Af Amer) 14 POC Glucose (mg/dL) 181 H Random Glucose 162 H Calcium 7.8 L Phosphorus 9.7 H Magnesium 2.4 H Total Bilirubin 0.9 AST 30 ALT 26 Alkaline Phosphatase 158 H Total Protein 7.4 Albumin 3.7 Globulin 3.7 Albumin/Globulin Ratio 1.0 Arterial Blood Potassium Urine Collection Time Urine Total Volume Ur Protein 24 Hr Calc 10/15/17 10/15/17 10/15/17 11:19 11:41 11:57 WBC RBC Hgb Hct MCV MCH MCHC RDW Plt Count MPV Neut % (Auto) Lymph % (Auto) Quay % (Auto) Eos % (Auto) Baso % (Auto) Neut # (Auto) Lymph # (Auto) Quay # (Auto) Eos # (Auto) Baso # (Auto) Puncture Site Rf pCO2 130 H* pO2 45 L HCO3 19.6 L ABG pH 6.97 L* ABG Total CO2 33.9 H ABG O2 Saturation 74.4 L ABG Base Excess -5.3 L Philippe Test Na ABG Potassium 4.0 A-a O2 Difference 506.0 Respiratory Index 11.2 Glucose 402 H* D Lactate 8.8 H* Mechanical Rate FiO2 100.0 Tidal Volume PEEP Blood Gas Comments During code Crit Value Called To Dr franco Crit Value Called By Son galeano Crit Value Read Back Y Blood Gas Notified Time 1205 Sodium 139.0 Potassium Chloride 96.0 L Carbon Dioxide Anion Gap BUN Creatinine Est GFR ( Amer) Est GFR (Non-Af Amer) POC Glucose (mg/dL) 254 H 228 H Random Glucose Calcium Phosphorus Magnesium Total Bilirubin AST ALT Alkaline Phosphatase Total Protein Albumin Globulin Albumin/Globulin Ratio Arterial Blood Potassium 4.0 Urine Collection Time Urine Total Volume Ur Protein 24 Hr Calc 10/15/17 13:35 WBC RBC Hgb Hct MCV MCH MCHC RDW Plt Count MPV Neut % (Auto) Lymph % (Auto) Quay % (Auto) Eos % (Auto) Baso % (Auto) Neut # (Auto) Lymph # (Auto) Quay # (Auto) Eos # (Auto) Baso # (Auto) Puncture Site Lf pCO2 87 H* pO2 69 L HCO3 25.8 ABG pH 7.18 L* ABG Total CO2 35.2 H ABG O2 Saturation 95.3 ABG Base Excess 1.4 Philippe Test Na ABG Potassium 4.2 A-a O2 Difference 535.0 Respiratory Index 7.8 Glucose 351 H Lactate 3.2 H Mechanical Rate 24 FiO2 100.0 Tidal Volume 500 PEEP 5 Blood Gas Comments Crit Value Called To Dr jay franco Crit Value Called By Son galeano 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 Crit Value Read Back Y Blood Gas Notified Time 1340 Sodium 139.0 Potassium Chloride 99.0 Carbon Dioxide Anion Gap BUN Creatinine Est GFR ( Amer) Est GFR (Non-Af Amer) POC Glucose (mg/dL) Random Glucose Calcium Phosphorus Magnesium Total Bilirubin AST ALT Alkaline Phosphatase Total Protein Albumin Globulin Albumin/Globulin Ratio Arterial Blood Potassium 4.2 Urine Collection Time Urine Total Volume Ur Protein 24 Hr Calc Assessment & Plan - Assessment and Plan (Free Text) Assessment: -Cardiac arrest: Asystole: ROSC obtained, intubated, and HD catheter placed, continue dopamine to keep MAP >65 -Shock: taper off dopamine to keep MAP >65 -Hyperpotassemia: HD today, f/u post HD labs -Sepsis: suspect aspiration, will emmanuel culture, start IV zosyn and doxy with linezolid (Kidney failure), MRSA screen -anoxic brain injury: down time significant: obtain CT head when stable, obtain neurology regarding prognostication -NG tube to suction -DVT ppx on eliquis -BGM q6hrs, ISS aspart -PUD ppx protonix q12 -check FOB -critical care time spent 65 minutes Patient likely has significant anoxic july injury. Prognosis guarded intubation/arterial line and HD catheter placed emergently. Family (, sister and mother) informed of above events. emotional support provided. Dr. Long present post code and aware of above events. left femoral central line placed as IO line is only temporary for acute resusitation purposes. - Date & Time Date: 10/15/17 Time: 11:35
--- NOTE | 2017-10-15 15:14 | RAD ---
Date of service: 10/15/2017 PROCEDURE: CHEST RADIOGRAPH, 1 VIEW HISTORY: catheter insertion and intubation COMPARISON: Comparison is made with 10/15/2017 at 9:21 FINDINGS: LUNGS: Status post intubation. The ET tube is seen at appropriate position. Diffuse heterogeneous opacities in the lungs are again noted. PLEURA: Moderate right pleural effusion. CARDIOVASCULAR: Cardiomegaly. OSSEOUS STRUCTURES: No significant abnormalities. VISUALIZED UPPER ABDOMEN: Normal. OTHER FINDINGS: There is catheter extending from the left neck to the upper abdomen may represent left jugular approach venous catheter extending to the SVC right atrium junction. Please correlate clinically. None. IMPRESSION: Status post intubation. Pulmonary edema. Possible left jugular central line extending to the proximal SVC. Please correlate clinically and if indicated adjustment of this central line position is suggested.
--- NOTE | 2017-10-15 15:15 | CP.PCM.CON ---
History of Present Illness - History of Present Illness History of Present Illness: Vascular Surgery Progress Note for Dr. Ortega 47M, PMH of COPD, DM, HTN, CKD, Liver disease and DVT s/p IVC filter, consulted today for permacatheter placement secondary to elevated potassium levels since . Patient was walking to the restroom with 's help when he collapsed. Code blue was called. Floor was setting up transfer to ICU when this all occurred. Siebel Crm Developer was able to successfully place a left IJ dialysis catether for emergent hemodialysis in the ICU. Currently patient is intubated and tachycardic in the 130s. PMH: see above PSH: Splenectomy, IVC filter ALL: Egg Soc: Quit smoking 3 years ago Review of Systems - Review of Systems Systems not reviewed;Unavailable: Unstable Vital Signs, Intubated Review of Systems: Unable to complete 12 point ROS 2/2 intubation Past Patient History - Infectious Disease Hx of Infectious Diseases: None - Past Medical History & Family History Past Medical History?: Yes Past Family History: Reviewed and not pertinent - Past Social History Smoking Status: Former Smoker Chewing Tobacco Use: No Cigar Use: No Alcohol: None Drugs: Denies Home Situation {Lives}: With Family - CARDIAC Hx Congestive Heart Failure: Yes Hx Hypertension: Yes - PULMONARY Hx Asthma: Yes Hx Chronic Obstructive Pulmonary Disease (COPD): Yes Hx Pneumonia: Yes - NEUROLOGICAL Hx Neurological Disorder: Yes - HEENT Hx HEENT Problems: No - RENAL Hx Chronic Kidney Disease: Yes - ENDOCRINE/METABOLIC Hx Endocrine Disorders: Yes Hx Diabetes Mellitus Type 2: Yes - HEMATOLOGICAL/ONCOLOGICAL Hx Blood Disorders: Yes Other/Comment: Right LE DVT - INTEGUMENTARY Hx Dermatological Problems: Yes Hx Cellulitis: Yes - MUSCULOSKELETAL/RHEUMATOLOGICAL Hx Arthritis: Yes - GASTROINTESTINAL Hx Gastrointestinal Disorders: No - GENITOURINARY/GYNECOLOGICAL Hx Genitourinary Disorders: No - PSYCHIATRIC Hx Anxiety: No Hx Substance Use: No - SURGICAL HISTORY Hx Surgeries: Yes Hx Splenectomy: Yes Other/Comment: IVC Filter placement - ANESTHESIA Hx Anesthesia: Yes Hx Anesthesia Reactions: No Hx Malignant Hyperthermia: No Meds Allergies/Adverse Reactions: Allergies Allergy/AdvReac Type Severity Reaction Status Date / Time EGG Allergy Intermediate RASH Verified 10/13/17 08:14 - Medications Medications: Current Medications Albuterol/Ipratropium (Duoneb 3 Mg/0.5 Mg (3 Ml) Ud) 3 ml INH RQ6 [facility] Last Admin: 10/15/17 14:15 Dose: Not Given Aspirin (Aspirin Chewable) 81 mg PO DAILY [facility] Last Admin: 10/15/17 09:12 Dose: 81 mg Dextrose (Dextrose 50% Inj) 0 ml IV STAT PRN; Protocol PRN Reason: Hypoglycemia Protocol Dextrose (Glutose 15) 0 gm PO ONCE PRN; Protocol PRN Reason: Hypoglycemia Protocol Glucagon (Glucagen Diagnostic Kit) 0 mg IM STAT PRN; Protocol PRN Reason: Hypoglycemia Protocol Dextrose (Dextrose 5% In Water 1000 Ml) 1,000 mls @ 0 mls/hr IV .Q0M PRN; Protocol; Per Protocol PRN Reason: Hypoglycemia Protocol Insulin Glargine (Lantus) 25 unit SC HS [facility] Last Admin: 10/14/17 22:03 Dose: 25 units Insulin Human Regular (Novolin R) 0 unit SC ACHS [facility] PRN Reason: Protocol Last Admin: 10/15/17 13:59 Dose: Not Given Metolazone (Zaroxolyn) 5 mg PO DAILY [facility] Last Admin: 10/15/17 09:12 Dose: 5 mg Pantoprazole Sodium (Protonix Inj) 40 mg IVP Q12H [facility] Rosuvastatin Calcium (Crestor) 20 mg PO HS [facility] Last Admin: 10/14/17 22:03 Dose: 20 mg Sodium Bicarbonate (Sodium Bicarbonate Tab) 650 mg PO TID [facility] Last Admin: 10/15/17 09:14 Dose: 650 mg Sodium Polystyrene Sulfonate (Kayexalate Susp) 30 gm PO BID [facility] Last Admin: 10/15/17 09:14 Dose: 30 gm Physical Exam - Constitutional Additional comments: Intubated - Head Exam Head Exam: ATRAUMATIC, NORMAL INSPECTION, NORMOCEPHALIC Results - Vital Signs Recent Vital Signs: Last Vital Signs Temp 98.4 F 10/15/17 14:20 Pulse 134 H 10/15/17 14:33 Resp 22 10/15/17 14:33 BP 137/60 10/15/17 14:50 Pulse Ox 93 L 10/15/17 14:33 - Labs Result Diagrams: 10/15/17 10:40 10/15/17 07:04 Labs: Laboratory Results - last 24 hr 10/14/17 10/14/17 10/14/17 13:48 14:53 16:26 WBC RBC Hgb Hct MCV MCH MCHC RDW Plt Count MPV Neut % (Auto) Lymph % (Auto) Lassen % (Auto) Eos % (Auto) Baso % (Auto) Neut # (Auto) Lymph # (Auto) Lassen # (Auto) Eos # (Auto) Baso # (Auto) Puncture Site pCO2 pO2 HCO3 ABG pH ABG Total CO2 ABG O2 Saturation ABG Base Excess Philippe Test ABG Potassium A-a O2 Difference Respiratory Index Glucose Lactate Mechanical Rate FiO2 Tidal Volume PEEP Blood Gas Comments Crit Value Called To Crit Value Called By Crit Value Read Back Blood Gas Notified Time Sodium 141 Potassium 6.1 H Chloride 97 L Carbon Dioxide 36 H Anion Gap 14 BUN 76 H Creatinine 3.7 H Est GFR ( Amer) 21 Est GFR (Non-Af Amer) 18 POC Glucose (mg/dL) 218 H 179 H Random Glucose 153 H Calcium 8.3 L Phosphorus Magnesium Total Bilirubin 0.8 AST 19 ALT 25 Alkaline Phosphatase 149 H Total Protein 7.2 Albumin 3.6 Globulin 3.6 Albumin/Globulin Ratio 1.0 Arterial Blood Potassium Urine Collection Time Urine Total Volume Ur Protein 24 Hr Calc 10/14/17 10/14/17 10/14/17 16:49 21:19 21:40 WBC RBC Hgb Hct MCV MCH MCHC RDW Plt Count MPV Neut % (Auto) Lymph % (Auto) Lassen % (Auto) Eos % (Auto) Baso % (Auto) Neut # (Auto) Lymph # (Auto) Lassen # (Auto) Eos # (Auto) Baso # (Auto) Puncture Site pCO2 pO2 HCO3 ABG pH ABG Total CO2 ABG O2 Saturation ABG Base Excess Philippe Test ABG Potassium A-a O2 Difference Respiratory Index Glucose Lactate Mechanical Rate FiO2 Tidal Volume PEEP Blood Gas Comments Crit Value Called To Crit Value Called By Crit Value Read Back Blood Gas Notified Time Sodium Potassium Chloride Carbon Dioxide Anion Gap BUN Creatinine Est GFR ( Amer) Est GFR (Non-Af Amer) POC Glucose (mg/dL) 149 H 168 H Random Glucose Calcium Phosphorus Magnesium Total Bilirubin AST ALT Alkaline Phosphatase Total Protein Albumin Globulin Albumin/Globulin Ratio Arterial Blood Potassium Urine Collection Time 24 Urine Total Volume 650 Ur Protein 24 Hr Calc 9958.0 H 10/15/17 10/15/17 10/15/17 06:23 07:04 10:40 WBC 16.4 H RBC 4.02 L Hgb 11.3 L Hct 36.8 MCV 91.5 D MCH 28.1 MCHC 30.7 L RDW 18.5 H Plt Count 115 L MPV 10.5 Neut % (Auto) 72.5 Lymph % (Auto) 13.0 L Lassen % (Auto) 11.7 H Eos % (Auto) 1.9 Baso % (Auto) 0.9 Neut # (Auto) 11.9 H Lymph # (Auto) 2.1 Lassen # (Auto) 1.9 H Eos # (Auto) 0.3 Baso # (Auto) 0.1 Puncture Site pCO2 pO2 HCO3 ABG pH ABG Total CO2 ABG O2 Saturation ABG Base Excess Philippe Test ABG Potassium A-a O2 Difference Respiratory Index Glucose Lactate Mechanical Rate FiO2 Tidal Volume PEEP Blood Gas Comments Crit Value Called To Crit Value Called By Crit Value Read Back Blood Gas Notified Time Sodium 139 Potassium 6.7 H* Chloride 96 L Carbon Dioxide 30 Anion Gap 18 BUN 86 H Creatinine 4.4 H Est GFR ( Amer) 17 Est GFR (Non-Af Amer) 14 POC Glucose (mg/dL) 181 H Random Glucose 162 H Calcium 7.8 L Phosphorus 9.7 H Magnesium 2.4 H Total Bilirubin 0.9 AST 30 ALT 26 Alkaline Phosphatase 158 H Total Protein 7.4 Albumin 3.7 Globulin 3.7 Albumin/Globulin Ratio 1.0 Arterial Blood Potassium Urine Collection Time Urine Total Volume Ur Protein 24 Hr Calc 10/15/17 10/15/17 10/15/17 11:19 11:41 11:57 WBC RBC Hgb Hct MCV MCH MCHC RDW Plt Count MPV Neut % (Auto) Lymph % (Auto) Lassen % (Auto) Eos % (Auto) Baso % (Auto) Neut # (Auto) Lymph # (Auto) Lassen # (Auto) Eos # (Auto) Baso # (Auto) Puncture Site Rf pCO2 130 H* pO2 45 L HCO3 19.6 L ABG pH 6.97 L* ABG Total CO2 33.9 H ABG O2 Saturation 74.4 L ABG Base Excess -5.3 L Philippe Test Na ABG Potassium 4.0 A-a O2 Difference 506.0 Respiratory Index 11.2 Glucose 402 H* D Lactate 8.8 H* Mechanical Rate FiO2 100.0 Tidal Volume PEEP Blood Gas Comments During code Crit Value Called To Dr franco Crit Value Called By Son galeano Crit Value Read Back Y Blood Gas Notified Time 1205 Sodium 139.0 Potassium Chloride 96.0 L Carbon Dioxide Anion Gap BUN Creatinine Est GFR ( Amer) Est GFR (Non-Af Amer) POC Glucose (mg/dL) 254 H 228 H Random Glucose Calcium Phosphorus Magnesium Total Bilirubin AST ALT Alkaline Phosphatase Total Protein Albumin Globulin Albumin/Globulin Ratio Arterial Blood Potassium 4.0 Urine Collection Time Urine Total Volume Ur Protein 24 Hr Calc 10/15/17 13:35 WBC RBC Hgb Hct MCV MCH MCHC RDW Plt Count MPV Neut % (Auto) Lymph % (Auto) Lassen % (Auto) Eos % (Auto) Baso % (Auto) Neut # (Auto) Lymph # (Auto) Lassen # (Auto) Eos # (Auto) Baso # (Auto) Puncture Site Lf pCO2 87 H* pO2 69 L HCO3 25.8 ABG pH 7.18 L* ABG Total CO2 35.2 H ABG O2 Saturation 95.3 ABG Base Excess 1.4 Philippe Test Na ABG Potassium 4.2 A-a O2 Difference 535.0 Respiratory Index 7.8 Glucose 351 H Lactate 3.2 H Mechanical Rate 24 FiO2 100.0 Tidal Volume 500 PEEP 5 Blood Gas Comments Crit Value Called To Dr jay franco Crit Value Called By Son galeano special education classroom aide Crit Value Read Back Y Blood Gas Notified Time 1340 Sodium 139.0 Potassium Chloride 99.0 Carbon Dioxide Anion Gap BUN Creatinine Est GFR ( Amer) Est GFR (Non-Af Amer) POC Glucose (mg/dL) Random Glucose Calcium Phosphorus Magnesium Total Bilirubin AST ALT Alkaline Phosphatase Total Protein Albumin Globulin Albumin/Globulin Ratio Arterial Blood Potassium 4.2 Urine Collection Time Urine Total Volume Ur Protein 24 Hr Calc Assessment & Plan - Assessment and Plan (Free Text) Assessment: 47M w/ chronic renal insufficiency and hyperkalemia Plan: Dialysis catheter in the left IJ placed and functioning Will consider freight dispatcher catheter when more stable and medically optimized Further recs per Dr. Jordan Seth PGY1
[2017-10-15 15:23] LABS: HEPATITIS B SURFACE AG Negative (NEGATIVE)
--- NOTE | 2017-10-15 15:29 | RAD ---
Date of service: 10/15/2017 HISTORY: NGT COMPARISON: Comparison is made with 10/15/2017 at 12:54 FINDINGS: LUNGS: Interval improvement in the lungs since the previous exam. The ET tube is again seen at appropriate position. PLEURA: Right pleural effusion is again noted. CARDIOVASCULAR: Cardiomegaly is again noted. OSSEOUS STRUCTURES: No significant abnormalities. VISUALIZED UPPER ABDOMEN: The distal portion of the NG tube is not clearly seen. Possible looping in the NG tube at the mid esophagus. OTHER FINDINGS: None. IMPRESSION: Interval improvement in the lungs since the previous exam. The distal portion of the NG tube is not clearly visualized.
[2017-10-15 15:41] LABS: HEPATITIS C ANTIBODY NEGATIVE (NEGATIVE)
[2017-10-15] MEDS ORDERED: Propofol 10 mg/ml 1,000 MG/100 ML VIAL IV PRN (15:50)
[2017-10-15] MEDS ORDERED: Vancomycin 1 gm/NS 200 ml 1 GM/200 ML BAG IVPB STA (15:51)
--- NOTE | 2017-10-15 16:52 | CP.PCM.PN ---
Subjective - Date & Time of Evaluation Date of Evaluation: 10/15/17 Time of Evaluation: 04:50 - Subjective Subjective: Called earlier this AM with creatinine up to 4.4 and K over 6 Spoke to aircraft servicer and made arrangements to transfer to ICU for start of hemodialysis subsequently suffered a cardio pulm arrest requiring intubation Dialysis catheter and dialysis srted k down to 4.4 after 30 minutes Blood gases show marked respiratory acidosis Patient presently on dialysis intubated Objective - Vital Signs/Intake and Output Vital Signs (last 24 hours): Temp Pulse Resp BP Pulse Ox 98.7 F 136 H 25 H 114/66 94 L 10/15/17 16:00 10/15/17 16:20 10/15/17 16:20 10/15/17 16:20 10/15/17 16:20 Intake and Output: 10/15/17 10/15/17 06:59 18:59 Intake Total 113.0 Output Total 0 Balance 113.0 - Medications Medications: Current Medications Albuterol/Ipratropium (Duoneb 3 Mg/0.5 Mg (3 Ml) Ud) 3 ml INH RQ6 [facility] Last Admin: 10/15/17 14:15 Dose: Not Given Aspirin (Aspirin Chewable) 81 mg PO DAILY [facility] Last Admin: 10/15/17 09:12 Dose: 81 mg Dextrose (Dextrose 50% Inj) 0 ml IV STAT PRN; Protocol PRN Reason: Hypoglycemia Protocol Dextrose (Glutose 15) 0 gm PO ONCE PRN; Protocol PRN Reason: Hypoglycemia Protocol Glucagon (Glucagen Diagnostic Kit) 0 mg IM STAT PRN; Protocol PRN Reason: Hypoglycemia Protocol Dextrose (Dextrose 5% In Water 1000 Ml) 1,000 mls @ 0 mls/hr IV .Q0M PRN; Protocol; Per Protocol PRN Reason: Hypoglycemia Protocol Dopamine HCl/Dextrose (Dopamine 400mg/250ml D5w) 400 mg in 250 mls @ 10.767 mls /hr IV .[id number] PRN; Protocol; 2 MCG/KG/MIN PRN Reason: TITRATE PER MD ORDER Last Titration: 10/15/17 16:24 Dose: 0 mcg/kg/min, 0 mls/hr Doxycycline Hyclate 100 mg/ (Sodium Chloride) 100 mls @ 100 mls/hr IVPB Q12H [facility] PRN Reason: Protocol Piperacillin Sod/Tazobactam Sod (Zosyn 2.25 Gm Iv Premix) 2.25 gm in 50 mls @ 100 mls/hr IVPB Q6H [facility] PRN Reason: Protocol Vancomycin/Sodium Chloride (Vancomycin 1 Gm/Ns 200 Ml) 1 gm in 200 mls @ 167 mls/hr IVPB STAT STA PRN Reason: Protocol Stop: 10/15/17 17:02 Propofol (Diprivan) 1,000 mg in 100 mls @ 1.925 mls/hr IV .Q24H PRN; Protocol; 5 MCG/KG/MIN PRN Reason: TITRATE PER MD ORDER Insulin Human Regular (Novolin R) 0 unit SC Q6H [facility] PRN Reason: Protocol Pantoprazole Sodium (Protonix Inj) 40 mg IVP Q12H [facility] Rosuvastatin Calcium (Crestor) 20 mg PO HS [facility] Last Admin: 10/14/17 22:03 Dose: 20 mg Sodium Bicarbonate (Sodium Bicarbonate Tab) 650 mg PO TID [facility] Last Admin: 10/15/17 15:30 Dose: 650 mg Sodium Polystyrene Sulfonate (Kayexalate Susp) 30 gm PO BID [facility] Last Admin: 10/15/17 09:14 Dose: 30 gm - Labs Labs: 10/15/17 10:40 10/15/17 14:54 APTT 60 SECONDS (21-34) H 10/15/17 16:21 - Constitutional Appears: No Acute Distress - Head Exam Additional comments: intubated unresponsive on dialysis - Respiratory Exam Respiratory Exam: Clear to Ausculation Bilateral - Cardiovascular Exam Cardiovascular Exam: REGULAR RHYTHM - GI/Abdominal Exam GI & Abdominal Exam: absent: Distended Additional comments: obese - Extremities Exam Additional comments: 2-3 + leg edema Assessment and Plan (1) Cardiac arrest Status: Acute (2) Acute on chronic renal failure Status: Acute (3) CHF (congestive heart failure) Status: Acute (4) CHF exacerbation Status: Acute (5) CO2 retention Status: Acute (6) COPD exacerbation Status: Acute (7) Hyperkalemia Status: Acute (8) Type 2 diabetes mellitus with diabetic nephropathy Status: Acute (9) Respiratory acidosis Status: Acute - Assessment and Plan (Free Text) Plan: case discussed in detail via interpretor with will try to remove 1 kg schedule dialysis again 10/16 with increased blood flow and ultrafiltration orders written
[2017-10-15] MEDS: Propofol 10 mg/ml 1,000 MG/100 ML VIAL IV PRN (17:00)
[2017-10-15] MEDS ORDERED: Propofol 10 mg/ml Inj (100 ml) IV PRN (17:13)
[2017-10-15 17:15] LABS: ARTERIAL BLOOD GAS HCO3 27.2 mmol/L (21-28); ARTERIAL BLOOD GAS O2 SAT 98.9 % (95-98); ARTERIAL BLOOD GAS PCO2 74 mm/Hg (35-45); ARTERIAL BLOOD GAS PH 7.25 (7.35-7.45); ARTERIAL BLOOD GAS PO2 101 mm/Hg (80-100); ARTERIAL BLOOD GAS TCO2 34.8 mmol/L (22-28)
[2017-10-15] MEDS: Piperacill/Tazo 2.25gm in Dex 2.25 GM/50 ML BAG IVPB SCH (17:41)
[2017-10-15 17:54] LABS: SQUAMOUS EPITHIAL 1 /hpf (0-5); URINE AMORPHOUS SEDIMENT RARE /ul (<OCC); URINE BACTERIA RARE (<OCC); URINE BILIRUBIN NEGATIVE (NEGATIVE); URINE BLOOD 2+ (NEGATIVE); URINE CLARITY Hazy (Clear); URINE COLOR Yellow (YELLOW); URINE GLUCOSE (UA) 2+ mg/dL (Normal); URINE LEUKOCYTE ESTERASE NEG Leu/uL (Negative); URINE PROTEIN 3+ mg/dL (NEGATIVE); URINE UROBILINOGEN NORMAL mg/dL (0.2-1.0)
[2017-10-15 17:59] LABS: BASO % 0.1 % (0.0-2.0); EOS % 0.1 % (0.0-4.0); HEMOGLOBIN 10.2 g/dL (12.0-18.0); LYMPH # 0.4 K/uL (1.0-4.3); LYMPH % 1.6 % (20.0-40.0); MEAN CORPUSCULAR HEMOGLOBIN 27.4 pg (27.0-31.0); MEAN PLATELET VOLUME 9.1 fL (7.2-11.7); MONO # 3.9 K/uL (0.0-0.8); MONO % 15.4 % (0.0-10.0); NEUT % 82.8 % (50.0-75.0); NRBC % 1.5 % (0.0-2.0); RBC 3.71 Mil/uL (4.40-5.90); RED CELL DISTRIBUTION WIDTH 18.1 % (11.5-14.5)
[2017-10-15 18:07] LABS: MEAN CELL VOLUME 88.6 fL (80.0-94.0); PLATELET COUNT 59 K/uL (130-400); WHITE BLOOD COUNT 25.4 K/uL (4.8-10.8)
[2017-10-15 18:16] LABS: CALCIUM 7.7 mg/dl (8.6-10.4)
[2017-10-15 18:21] LABS: ANISOCYTOSIS SLIGHT; BANDS 9 % (0-2); HYPOCHROMIC SLIGHT; LYMPHOCYTE 2 % (20-40); MONOCYTE 6 % (0-10); NEUTROPHIL 83 % (50-75); NUCLEATED RED BLOOD CELL 1 % (0-0); PLATELET ESTIMATE DECREASED (NORMAL); POLYCHROMIC SLIGHT; TOTAL CELLS COUNTED 100
[2017-10-15 18:31] LABS: TROPONIN I 0.397 ng/mL (0.00-0.120)
[2017-10-15] MEDS ORDERED: Iohexol 240 (50 ml) PO ONE (20:13)
--- NOTE | 2017-10-15 20:58 | PCM.PROC ---
Procedures Attestation:: I certify that I have explained the specified Operation(s) or Procedure(s), risks, benefits and reasonable alternatives to the Patient and/or other person responsible. The opportunity was given to ask questions and all questions answered - Central Line Placement Left Femoral Triple Lumen Catheter Aseptic technique was employed throughout the procedure: Hand Hygiene done prior to procedure, Full sterile barriers (mask, hair cover, sterile gown, sterile gloves), Full body sterile drape, Chloraprep Antiseptic: 2 minute prep for Femoral CVP Time Out Performed: Yes Pt. Placed on Pulse Ox Monitor: Yes Central Line Prep: Chlorhexidine-Alcohol Combination Local Anesthesia Used: Lidocaine 1% Ultrasound Used for Placement: Yes Central Line Lumen Inserted: triple Central Line Length: 20 cm Post Procedure: Sutured in Place, Good Blood Return, All Ports Aspirated, Flushed, Capped, Sterile Dressing Applied Secured by: Suture Post procedure dressing: Gauze, Clear vapor permeable, Chlorhexidine disc ( Biopatch) Post Procedure X-Ray: No Patient Tolerated Procedure: Well Immediate Complications: None
[2017-10-15 21:09] LABS: ARTERIAL BLOOD GAS HCO3 26.3 mmol/L (21-28); ARTERIAL BLOOD GAS PCO2 71 mm/Hg (35-45); ARTERIAL BLOOD GAS PH 7.25 (7.35-7.45); ARTERIAL BLOOD GAS PO2 103 mm/Hg (80-100); ARTERIAL BLOOD GAS TCO2 33.3 mmol/L (22-28)
[2017-10-15] MEDS: Fluticasone-Salmeterol 250-50mcg Diskus IH SCH (21:52)
--- NOTE | 2017-10-15 22:23 | CP.PCM.PN ---
Subjective - Date & Time of Evaluation Date of Evaluation: 10/15/17 Time of Evaluation: 18:35 - Subjective Subjective: Patient transferred to ICU Respiratory failure Objective - Vital Signs/Intake and Output Vital Signs (last 24 hours): Temp Pulse Resp BP Pulse Ox 98.3 F 112 H 24 141/68 96 10/15/17 16:50 10/15/17 21:30 10/15/17 21:30 10/15/17 20:05 10/15/17 21:30 Intake and Output: 10/15/17 10/16/17 18:59 06:59 Intake Total 621.6 112.9 Output Total 1030 660 Balance -408.4 -547.1 - Medications Medications: Current Medications Albuterol/Ipratropium (Duoneb 3 Mg/0.5 Mg (3 Ml) Ud) 3 ml INH RQ6 [facility] Last Admin: 10/15/17 19:22 Dose: 3 ml Aspirin (Aspirin Chewable) 81 mg PO DAILY [facility] Last Admin: 10/15/17 09:12 Dose: 81 mg Dextrose (Dextrose 50% Inj) 0 ml IV STAT PRN; Protocol PRN Reason: Hypoglycemia Protocol Dextrose (Glutose 15) 0 gm PO ONCE PRN; Protocol PRN Reason: Hypoglycemia Protocol Glucagon (Glucagen Diagnostic Kit) 0 mg IM STAT PRN; Protocol PRN Reason: Hypoglycemia Protocol Dextrose (Dextrose 5% In Water 1000 Ml) 1,000 mls @ 0 mls/hr IV .Q0M PRN; Protocol; Per Protocol PRN Reason: Hypoglycemia Protocol Dopamine HCl/Dextrose (Dopamine 400mg/250ml D5w) 400 mg in 250 mls @ 10.767 mls /hr IV .[id number] PRN; Protocol; 2 MCG/KG/MIN PRN Reason: TITRATE PER MD ORDER Last Titration: 10/15/17 16:24 Dose: 0 mcg/kg/min, 0 mls/hr Doxycycline Hyclate 100 mg/ (Sodium Chloride) 100 mls @ 100 mls/hr IVPB Q12H [facility] PRN Reason: Protocol Last Admin: 10/15/17 18:49 Dose: 100 mls/hr Piperacillin Sod/Tazobactam Sod (Zosyn 2.25 Gm Iv Premix) 2.25 gm in 50 mls @ 100 mls/hr IVPB Q6H [facility] PRN Reason: Protocol Last Admin: 10/15/17 17:41 Dose: 100 mls/hr Propofol (Diprivan) 1,000 mg in 100 mls @ 4.307 mls/hr IV .[id number] PRN; Protocol; 5 MCG/KG/MIN PRN Reason: TITRATE PER MD ORDER Last Admin: 10/15/17 17:00 Dose: 5 mcg/kg/min, 4.307 mls/hr Norepinephrine Bitartrate 8 mg (/ Dextrose) 258 mls @ 7.74 mls/hr IV .Q24H PRN ; Protocol; 4 MCG/MIN PRN Reason: TITRATE PER MD ORDER Insulin Human Regular (Novolin R) 0 unit SC Q6H [facility] PRN Reason: Protocol Last Admin: 10/15/17 18:00 Dose: 4 units Pantoprazole Sodium (Protonix Inj) 40 mg IVP Q12H [facility] Rosuvastatin Calcium (Crestor) 20 mg PO HS [facility] Last Admin: 10/14/17 22:03 Dose: 20 mg Sodium Bicarbonate (Sodium Bicarbonate Tab) 650 mg PO TID [facility] Last Admin: 10/15/17 18:01 Dose: 650 mg Sodium Polystyrene Sulfonate (Kayexalate Susp) 30 gm PO BID [facility] Last Admin: 10/15/17 18:53 Dose: 30 gm - Labs Labs: 10/15/17 17:56 10/15/17 17:56 APTT 60 SECONDS (21-34) H 10/15/17 16:21
[2017-10-15] MEDS ORDERED: Glucagon Recombinant 1 mg Inj IM PRN (23:36)
[2017-10-15] MEDS ORDERED: Dextrose 50% SYRINGE Inj (50 ml) IV PRN (23:36)
[2017-10-16 00:19] LABS: BASO % 0.2 % (0.0-2.0); HEMOGLOBIN 9.7 g/dL (12.0-18.0); LYMPH # 0.9 K/uL (1.0-4.3); LYMPH % 4.7 % (20.0-40.0); MEAN CELL VOLUME 88.3 fL (80.0-94.0); MEAN CORPUSCULAR HEMOGLOBIN 27.7 pg (27.0-31.0); MEAN CORPUSCULAR HGB CONC 31.4 g/dL (33.0-37.0); MEAN PLATELET VOLUME 9.5 fL (7.2-11.7); MONO # 1.9 K/uL (0.0-0.8); MONO % 9.5 % (0.0-10.0); NEUT % 85.6 % (50.0-75.0); NRBC % 1.4 % (0.0-2.0); PLATELET COUNT 57 K/uL (130-400); RBC 3.49 Mil/uL (4.40-5.90); WHITE BLOOD COUNT 19.9 K/uL (4.8-10.8)
[2017-10-16] MEDS: (Novolin R) Insulin Human Regular 100 units/ml vial SC SCH ×4 (00:21→18:00)
[2017-10-16] MEDS: Propofol 10 mg/ml 1,000 MG/100 ML VIAL IV PRN ×4 (00:23→19:00)
[2017-10-16 00:25] LABS: INR 1.5; PROTHROMBIN TIME 16.2 SECONDS (9.7-12.2)
[2017-10-16] MEDS: Piperacill/Tazo 2.25gm in Dex 2.25 GM/50 ML BAG IVPB SCH ×5 (00:33→23:48)
[2017-10-16 00:43] LABS: ALBUMIN 3.1 g/dL (3.5-5.0); CALCIUM 7.7 mg/dl (8.6-10.4)
[2017-10-16 00:58] LABS: BANDS 3 % (0-2); LYMPHOCYTE 3 % (20-40); MONOCYTE 5 % (0-10); NEUTROPHIL 89 % (50-75); NUCLEATED RED BLOOD CELL 1 % (0-0); PLATELET ESTIMATE DECREASED (NORMAL); TOTAL CELLS COUNTED 100
[2017-10-16 00:59] LABS: ANISOCYTOSIS SLIGHT; POLYCHROMIC SLIGHT
[2017-10-16 01:01] LABS: ARTERIAL BLOOD GAS HCO3 25.6 mmol/L (21-28); ARTERIAL BLOOD GAS O2 SAT 98.5 % (95-98); ARTERIAL BLOOD GAS PCO2 64 mm/Hg (35-45); ARTERIAL BLOOD GAS PH 7.27 (7.35-7.45); ARTERIAL BLOOD GAS PO2 98 mm/Hg (80-100); ARTERIAL BLOOD GAS TCO2 31.4 mmol/L (22-28)
[2017-10-16] MEDS: Albuterol-Ipratrop 3 mg / 0.5 (3 ml) UD INH SCH ×4 (01:17→19:12)
[2017-10-16 03:51] LABS: BASO # 0.1 K/uL (0.0-0.2); BASO % 0.6 % (0.0-2.0); EOS % 0.1 % (0.0-4.0); HEMOGLOBIN 9.8 g/dL (12.0-18.0); LYMPH # 1.1 K/uL (1.0-4.3); MEAN CELL VOLUME 88.1 fL (80.0-94.0); MEAN CORPUSCULAR HEMOGLOBIN 27.7 pg (27.0-31.0); MEAN CORPUSCULAR HGB CONC 31.4 g/dL (33.0-37.0); MEAN PLATELET VOLUME 10.4 fL (7.2-11.7); MONO # 1.8 K/uL (0.0-0.8); MONO % 10.2 % (0.0-10.0); NEUT # 15.1 K/uL (1.8-7.0); NEUT % 83.1 % (50.0-75.0); NRBC % 1.5 % (0.0-2.0); RBC 3.53 Mil/uL (4.40-5.90); RED CELL DISTRIBUTION WIDTH 18.2 % (11.5-14.5); WHITE BLOOD COUNT 18.1 K/uL (4.8-10.8)
[2017-10-16 04:07] LABS: CALCIUM 7.8 mg/dl (8.6-10.4)
[2017-10-16 04:29] LABS: ARTERIAL BLOOD GAS HCO3 26.1 mmol/L (21-28); ARTERIAL BLOOD GAS PCO2 73 mm/Hg (35-45); ARTERIAL BLOOD GAS PH 7.24 (7.35-7.45); ARTERIAL BLOOD GAS PO2 79 mm/Hg (80-100); ARTERIAL BLOOD GAS TCO2 33.5 mmol/L (22-28)
[2017-10-16 04:31] LABS: TROPONIN I 1.27 ng/mL (0.00-0.120)
[2017-10-16] MEDS: Cisatracurium Besylate 100 MG in Dextrose 5% In Water 250 ML IV PRN ×3 (04:52→23:51)
[2017-10-16 06:23] LABS: ARTERIAL BLOOD GAS HCO3 28.8 mmol/L (21-28); ARTERIAL BLOOD GAS O2 SAT 98.5 % (95-98); ARTERIAL BLOOD GAS PCO2 55 mm/Hg (35-45); ARTERIAL BLOOD GAS PH 7.37 (7.35-7.45); ARTERIAL BLOOD GAS PO2 100 mm/Hg (80-100); ARTERIAL BLOOD GAS TCO2 33.5 mmol/L (22-28)
[2017-10-16 06:39] LABS: BASO # 0.1 K/uL (0.0-0.2); BASO % 0.6 % (0.0-2.0); EOS # 0.2 K/uL (0.0-0.7); EOS % 0.9 % (0.0-4.0); HEMOGLOBIN 9.5 g/dL (12.0-18.0); LYMPH # 1.2 K/uL (1.0-4.3); LYMPH % 7.3 % (20.0-40.0); MEAN CELL VOLUME 87.5 fL (80.0-94.0); MEAN CORPUSCULAR HEMOGLOBIN 27.9 pg (27.0-31.0); MEAN CORPUSCULAR HGB CONC 31.9 g/dL (33.0-37.0); MEAN PLATELET VOLUME 10.3 fL (7.2-11.7); MONO # 1.5 K/uL (0.0-0.8); MONO % 9.3 % (0.0-10.0); NEUT # 13.5 K/uL (1.8-7.0); NEUT % 81.9 % (50.0-75.0); NRBC % 1.5 % (0.0-2.0); PLATELET COUNT 58 K/uL (130-400); RBC 3.39 Mil/uL (4.40-5.90); RED CELL DISTRIBUTION WIDTH 18.1 % (11.5-14.5); WHITE BLOOD COUNT 16.5 K/uL (4.8-10.8)
[2017-10-16 07:03] LABS: ALB/GLOB RATIO 0.9 (1.0-2.1); ALBUMIN 2.7 g/dL (3.5-5.0); CALCIUM 7.6 mg/dl (8.6-10.4)
--- NOTE | 2017-10-16 07:10 | CP.PCM.CON ---
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 NON CONVULSIVE STATUS EEG CT HEAD - NEG PATH ON HYPOTHERMIA PROTOCOL Past Patient History - Infectious Disease Hx of Infectious Diseases: None - Past Medical History & Family History Past Medical History?: Yes Past Family History: Reviewed and not pertinent - Past Social History Smoking Status: Former Smoker Chewing Tobacco Use: No Cigar Use: No Alcohol: None Drugs: Denies Home Situation {Lives}: With Family - CARDIAC Hx Congestive Heart Failure: Yes Hx Hypertension: Yes - PULMONARY Hx Asthma: Yes Hx Chronic Obstructive Pulmonary Disease (COPD): Yes Hx Pneumonia: Yes - NEUROLOGICAL Hx Neurological Disorder: Yes - HEENT Hx HEENT Problems: No - RENAL Hx Chronic Kidney Disease: Yes - ENDOCRINE/METABOLIC Hx Endocrine Disorders: Yes Hx Diabetes Mellitus Type 2: Yes - HEMATOLOGICAL/ONCOLOGICAL Hx Blood Disorders: Yes Other/Comment: Right LE DVT - INTEGUMENTARY Hx Dermatological Problems: Yes Hx Cellulitis: Yes - MUSCULOSKELETAL/RHEUMATOLOGICAL Hx Arthritis: Yes - GASTROINTESTINAL Hx Gastrointestinal Disorders: No - GENITOURINARY/GYNECOLOGICAL Hx Genitourinary Disorders: No - PSYCHIATRIC Hx Anxiety: No Hx Substance Use: No - SURGICAL HISTORY Hx Surgeries: Yes Hx Splenectomy: Yes Other/Comment: IVC Filter placement - ANESTHESIA Hx Anesthesia: Yes Hx Anesthesia Reactions: No Hx Malignant Hyperthermia: No Meds Allergies/Adverse Reactions: Allergies Allergy/AdvReac Type Severity Reaction Status Date / Time EGG Allergy Intermediate RASH Verified 10/13/17 08:14 - Medications Medications: Current Medications Albuterol/Ipratropium (Duoneb 3 Mg/0.5 Mg (3 Ml) Ud) 3 ml INH RQ6 [facility] Last Admin: 10/16/17 01:17 Dose: 3 ml Aspirin (Aspirin Chewable) 81 mg PO DAILY [facility] Last Admin: 10/15/17 09:12 Dose: 81 mg Dextrose (Dextrose 50% Inj) 0 ml IV STAT PRN; Protocol PRN Reason: Hypoglycemia Protocol Dextrose (Glutose 15) 0 gm PO ONCE PRN; Protocol PRN Reason: Hypoglycemia Protocol Dextrose (Dextrose 50% Inj) 0 ml IV STAT PRN; Protocol PRN Reason: Hypoglycemia Protocol Dextrose (Glutose 15) 0 gm PO ONCE PRN; Protocol PRN Reason: Hypoglycemia Protocol Glucagon (Glucagen Diagnostic Kit) 0 mg IM STAT PRN; Protocol PRN Reason: Hypoglycemia Protocol Glucagon (Glucagen Diagnostic Kit) 0 mg IM STAT PRN; Protocol PRN Reason: Hypoglycemia Protocol Dextrose (Dextrose 5% In Water 1000 Ml) 1,000 mls @ 0 mls/hr IV .Q0M PRN; Protocol; Per Protocol PRN Reason: Hypoglycemia Protocol Doxycycline Hyclate 100 mg/ (Sodium Chloride) 100 mls @ 100 mls/hr IVPB Q12H ANABELLA PRN Reason: Protocol Last Admin: 10/16/17 05:08 Dose: 100 mls/hr Piperacillin Sod/Tazobactam Sod (Zosyn 2.25 Gm Iv Premix) 2.25 gm in 50 mls @ 100 mls/hr IVPB Q6H ANABELLA PRN Reason: Protocol Last Admin: 10/16/17 05:00 Dose: 100 mls/hr Propofol (Diprivan) 1,000 mg in 100 mls @ 4.307 mls/hr IV .[id number] PRN; Protocol; 5 MCG/KG/MIN PRN Reason: TITRATE PER MD ORDER Last Admin: 10/16/17 04:51 Dose: 23 mcg/kg/min, 19.812 mls/hr Norepinephrine Bitartrate 8 mg (/ Dextrose) 258 mls @ 7.74 mls/hr IV .Q24H PRN ; Protocol; 4 MCG/MIN PRN Reason: TITRATE PER MD ORDER Last Titration: 10/16/17 00:00 Dose: 0 mcg/min, 0 mls/hr Dextrose (Dextrose 5% In Water 1000 Ml) 1,000 mls @ 0 mls/hr IV .Q0M PRN; Protocol; Per Protocol PRN Reason: Hypoglycemia Protocol Cisatracurium Besylate 100 mg/ (Dextrose) 260 mls @ 67.18 mls/hr IV .Q3H53M PRN ; 3 MCG/KG/MIN PRN Reason: Protocol Last Admin: 10/16/17 04:52 Dose: 3 mcg/kg/min, 67.18 mls/hr Fentanyl Citrate 2,500 mcg/ (Sodium Chloride) 250 mls @ 28.71 mls/hr IV .Q8H43M PRN; 2 MCG/KG/HR PRN Reason: Protocol Last Admin: 10/16/17 04:53 Dose: 2 mcg/kg/hr, 28.71 mls/hr Insulin Human Regular (Novolin R) 0 unit SC Q6H ANABELLA PRN Reason: Protocol Last Admin: 10/16/17 04:59 Dose: 6 units Pantoprazole Sodium (Protonix Inj) 40 mg IVP Q12H [facility] Last Admin: 10/16/17 01:30 Dose: 40 mg Rosuvastatin Calcium (Crestor) 20 mg PO HS [facility] Last Admin: 10/15/17 23:09 Dose: Not Given Sodium Bicarbonate (Sodium Bicarbonate Tab) 650 mg PO TID [facility] Last Admin: 10/15/17 18:01 Dose: 650 mg Sodium Polystyrene Sulfonate (Kayexalate Susp) 30 gm PO BID [facility] Last Admin: 10/15/17 18:53 Dose: 30 gm Results - Vital Signs Recent Vital Signs: Last Vital Signs Temp 97.0 F L 10/16/17 04:15 Pulse 76 10/16/17 06:00 Resp 24 10/16/17 06:00 BP 136/74 10/16/17 04:20 Pulse Ox 100 10/16/17 06:00 - Labs Result Diagrams: 10/16/17 06:33 10/16/17 06:33 Labs: Laboratory Results - last 24 hr 10/15/17 10/15/17 10/15/17 07:04 10:40 11:19 WBC 16.4 H RBC 4.02 L Hgb 11.3 L Hct 36.8 MCV 91.5 D MCH 28.1 MCHC 30.7 L RDW 18.5 H Plt Count 115 L MPV 10.5 Neut % (Auto) 72.5 Lymph % (Auto) 13.0 L [place] % (Auto) 11.7 H Eos % (Auto) 1.9 Baso % (Auto) 0.9 Neut # (Auto) 11.9 H Lymph # (Auto) 2.1 [place] # (Auto) 1.9 H Eos # (Auto) 0.3 Baso # (Auto) 0.1 Neutrophils % (Manual) Band Neutrophils % Lymphocytes % (Manual) Monocytes % (Manual) Nucleated RBC % Platelet Estimate Polychromasia Hypochromasia (manual) Anisocytosis (manual) PT INR APTT Puncture Site pCO2 pO2 HCO3 ABG pH ABG Total CO2 ABG O2 Saturation ABG Base Excess Philippe Test ABG Potassium A-a O2 Difference Respiratory Index Glucose Lactate Vent Mode Mechanical Rate FiO2 Tidal Volume PEEP Blood Gas Comments Crit Value Called To Crit Value Called By Crit Value Read Back Blood Gas Notified Time Sodium 139 Potassium 6.7 H* Chloride 96 L Carbon Dioxide 30 Anion Gap 18 BUN 86 H Creatinine 4.4 H Est GFR ( Amer) 17 Est GFR (Non-Af Amer) 14 POC Glucose (mg/dL) 254 H Random Glucose 162 H Lactic Acid Calcium 7.8 L Phosphorus 9.7 H Magnesium 2.4 H Total Bilirubin 0.9 AST 30 ALT 26 Alkaline Phosphatase 158 H Ammonia Troponin I Total Protein 7.4 Albumin 3.7 Globulin 3.7 Albumin/Globulin Ratio 1.0 Arterial Blood Potassium Urine Color Urine Clarity Urine pH Ur Specific [place] Urine Protein Urine Glucose (UA) Urine Ketones Urine Blood Urine Nitrate Urine Bilirubin Urine Urobilinogen Ur Leukocyte Esterase Urine WBC (Auto) Urine RBC (Auto) Ur Squamous Epith Cells Amorphous Sediment Urine Bacteria Hep Bs Antigen Hepatitis C Antibody Blood Type Antibody Screen 10/15/17 10/15/17 10/15/17 11:41 11:57 13:35 WBC RBC Hgb Hct MCV MCH MCHC RDW Plt Count MPV Neut % (Auto) Lymph % (Auto) [place] % (Auto) Eos % (Auto) Baso % (Auto) Neut # (Auto) Lymph # (Auto) [place] # (Auto) Eos # (Auto) Baso # (Auto) Neutrophils % (Manual) Band Neutrophils % Lymphocytes % (Manual) Monocytes % (Manual) Nucleated RBC % Platelet Estimate Polychromasia Hypochromasia (manual) Anisocytosis (manual) PT INR APTT Puncture Site Rf Lf pCO2 130 H* 87 H* pO2 45 L 69 L HCO3 19.6 L 25.8 ABG pH 6.97 L* 7.18 L* ABG Total CO2 33.9 H 35.2 H ABG O2 Saturation 74.4 L 95.3 ABG Base Excess -5.3 L 1.4 Philippe Test Na Na ABG Potassium 4.0 4.2 A-a O2 Difference 506.0 535.0 Respiratory Index 11.2 7.8 Glucose 402 H* D 351 H Lactate 8.8 H* 3.2 H Vent Mode Mechanical Rate 24 FiO2 100.0 100.0 Tidal Volume 500 PEEP 5 Blood Gas Comments During code Crit Value Called To Dr joan franco Crit Value Called By Son galeano hearing aid assistant Crit Value Read Back Y Y Blood Gas Notified Time 1205 1340 Sodium 139.0 139.0 Potassium Chloride 96.0 L 99.0 Carbon Dioxide Anion Gap BUN Creatinine Est GFR ( Amer) Est GFR (Non-Af Amer) POC Glucose (mg/dL) 228 H Random Glucose Lactic Acid Calcium Phosphorus Magnesium Total Bilirubin AST ALT Alkaline Phosphatase Ammonia Troponin I Total Protein Albumin Globulin Albumin/Globulin Ratio Arterial Blood Potassium 4.0 4.2 Urine Color Urine Clarity Urine pH Ur Specific [place] Urine Protein Urine Glucose (UA) Urine Ketones Urine Blood Urine Nitrate Urine Bilirubin Urine Urobilinogen Ur Leukocyte Esterase Urine WBC (Auto) Urine RBC (Auto) Ur Squamous Epith Cells Amorphous Sediment Urine Bacteria Hep Bs Antigen Hepatitis C Antibody Blood Type Antibody Screen 10/15/17 10/15/17 10/15/17 14:36 14:54 16:21 WBC RBC Hgb Hct MCV MCH MCHC RDW Plt Count MPV Neut % (Auto) Lymph % (Auto) [place] % (Auto) Eos % (Auto) Baso % (Auto) Neut # (Auto) Lymph # (Auto) [place] # (Auto) Eos # (Auto) Baso # (Auto) Neutrophils % (Manual) Band Neutrophils % Lymphocytes % (Manual) Monocytes % (Manual) Nucleated RBC % Platelet Estimate Polychromasia Hypochromasia (manual) Anisocytosis (manual) PT INR APTT 60 H Puncture Site pCO2 pO2 HCO3 ABG pH ABG Total CO2 ABG O2 Saturation ABG Base Excess Philippe Test ABG Potassium A-a O2 Difference Respiratory Index Glucose Lactate Vent Mode Mechanical Rate FiO2 Tidal Volume PEEP Blood Gas Comments Crit Value Called To Crit Value Called By Crit Value Read Back Blood Gas Notified Time Sodium Potassium 4.4 Chloride Carbon Dioxide Anion Gap BUN Creatinine Est GFR ( Amer) Est GFR (Non-Af Amer) POC Glucose (mg/dL) Random Glucose Lactic Acid Calcium Phosphorus Magnesium Total Bilirubin AST ALT Alkaline Phosphatase Ammonia Troponin I Total Protein Albumin Globulin Albumin/Globulin Ratio Arterial Blood Potassium Urine Color Urine Clarity Urine pH Ur Specific [place] Urine Protein Urine Glucose (UA) Urine Ketones Urine Blood Urine Nitrate Urine Bilirubin Urine Urobilinogen Ur Leukocyte Esterase Urine WBC (Auto) Urine RBC (Auto) Ur Squamous Epith Cells Amorphous Sediment Urine Bacteria Hep Bs Antigen Negative Hepatitis C Antibody Negative Blood Type Antibody Screen 10/15/17 10/15/17 10/15/17 16:21 17:13 17:35 WBC RBC Hgb Hct MCV MCH MCHC RDW Plt Count MPV Neut % (Auto) Lymph % (Auto) [place] % (Auto) Eos % (Auto) Baso % (Auto) Neut # (Auto) Lymph # (Auto) [place] # (Auto) Eos # (Auto) Baso # (Auto) Neutrophils % (Manual) Band Neutrophils % Lymphocytes % (Manual) Monocytes % (Manual) Nucleated RBC % Platelet Estimate Polychromasia Hypochromasia (manual) Anisocytosis (manual) PT INR APTT Puncture Site Mikado pCO2 74 H* pO2 101 H HCO3 27.2 ABG pH 7.25 L ABG Total CO2 34.8 H ABG O2 Saturation 98.9 H ABG Base Excess 2.9 Philippe Test Na ABG Potassium 3.6 A-a O2 Difference 520.0 Respiratory Index 5.1 Glucose 248 H Lactate 2.7 H Vent Mode Prvc Mechanical Rate 24 FiO2 100.0 Tidal Volume 500 PEEP 5 Blood Gas Comments Crit Value Called To Dr franco Crit Value Called By Carlos A perez Crit Value Read Back Y Blood Gas Notified Time 1715 Sodium 141.0 Potassium Chloride 104.0 Carbon Dioxide Anion Gap BUN Creatinine Est GFR ( Amer) Est GFR (Non-Af Amer) POC Glucose (mg/dL) Random Glucose Lactic Acid 2.5 H Calcium Phosphorus Magnesium Total Bilirubin AST ALT Alkaline Phosphatase Ammonia Troponin I Total Protein Albumin Globulin Albumin/Globulin Ratio Arterial Blood Potassium 3.6 Urine Color Yellow Urine Clarity Hazy Urine pH 5.0 Ur Specific [place] 1.014 Urine Protein 3+ H Urine Glucose (UA) 2+ H Urine Ketones Negative Urine Blood 2+ H Urine Nitrate Negative Urine Bilirubin Negative Urine Urobilinogen Normal Ur Leukocyte Esterase Neg Urine WBC (Auto) 13 H Urine RBC (Auto) 17 H Ur Squamous Epith Cells 1 Amorphous Sediment Rare H Urine Bacteria Rare Hep Bs Antigen Hepatitis C Antibody Blood Type Antibody Screen 10/15/17 10/15/17 10/15/17 17:49 17:56 17:56 WBC 25.4 H D RBC 3.71 L Hgb 10.2 L Hct 32.8 L MCV 88.6 D MCH 27.4 MCHC 31.0 L RDW 18.1 H Plt Count 59 L D MPV 9.1 Neut % (Auto) 82.8 H Lymph % (Auto) 1.6 L [place] % (Auto) 15.4 H Eos % (Auto) 0.1 Baso % (Auto) 0.1 Neut # (Auto) 21.0 H Lymph # (Auto) 0.4 L [place] # (Auto) 3.9 H Eos # (Auto) 0.0 Baso # (Auto) 0.0 Neutrophils % (Manual) 83 H Band Neutrophils % 9 H Lymphocytes % (Manual) 2 L Monocytes % (Manual) 6 Nucleated RBC % 1 H Platelet Estimate Decreased L Polychromasia Slight Hypochromasia (manual) Slight Anisocytosis (manual) Slight PT INR APTT Puncture Site pCO2 pO2 HCO3 ABG pH ABG Total CO2 ABG O2 Saturation ABG Base Excess Philippe Test ABG Potassium A-a O2 Difference Respiratory Index Glucose Lactate Vent Mode Mechanical Rate FiO2 Tidal Volume PEEP Blood Gas Comments Crit Value Called To Crit Value Called By Crit Value Read Back Blood Gas Notified Time Sodium 141 Potassium 4.2 Chloride 97 L Carbon Dioxide 34 H Anion Gap 14 BUN 59 H Creatinine 3.4 H Est GFR ( Amer) 24 Est GFR (Non-Af Amer) 19 POC Glucose (mg/dL) 257 H Random Glucose 265 H Lactic Acid Calcium 7.7 L Phosphorus 5.1 H Magnesium 1.8 Total Bilirubin 1.5 H AST 29 ALT 39 Alkaline Phosphatase 158 H Ammonia Troponin I 0.3970 H* Total Protein 6.2 L Albumin 3.0 L Globulin 3.2 Albumin/Globulin Ratio 1.0 Arterial Blood Potassium Urine Color Urine Clarity Urine pH Ur Specific [place] Urine Protein Urine Glucose (UA) Urine Ketones Urine Blood Urine Nitrate Urine Bilirubin Urine Urobilinogen Ur Leukocyte Esterase Urine WBC (Auto) Urine RBC (Auto) Ur Squamous Epith Cells Amorphous Sediment Urine Bacteria Hep Bs Antigen Hepatitis C Antibody Blood Type Antibody Screen 10/15/17 10/16/17 10/16/17 21:06 00:01 00:08 WBC 19.9 H RBC 3.49 L Hgb 9.7 L Hct 30.8 L MCV 88.3 MCH 27.7 MCHC 31.4 L RDW 18.0 H Plt Count 57 L MPV 9.5 Neut % (Auto) 85.6 H Lymph % (Auto) 4.7 L [place] % (Auto) 9.5 Eos % (Auto) 0.0 Baso % (Auto) 0.2 Neut # (Auto) 17.0 H Lymph # (Auto) 0.9 L [place] # (Auto) 1.9 H Eos # (Auto) 0.0 Baso # (Auto) 0.0 Neutrophils % (Manual) 89 H Band Neutrophils % 3 H Lymphocytes % (Manual) 3 L Monocytes % (Manual) 5 Nucleated RBC % 1 H Platelet Estimate Decreased L Polychromasia Slight Hypochromasia (manual) Anisocytosis (manual) Slight PT INR APTT Puncture Site Mikado pCO2 71 H* pO2 103 H HCO3 26.3 ABG pH 7.25 L ABG Total CO2 33.3 H ABG O2 Saturation 99.0 H ABG Base Excess 1.8 Philippe Test Na ABG Potassium 4.2 A-a O2 Difference 521.0 Respiratory Index 5.1 Glucose 313 H Lactate 4.8 H* Vent Mode Prvc Mechanical Rate 24 FiO2 100.0 Tidal Volume 500 PEEP 5 Blood Gas Comments Crit Value Called To Dr franco Crit Value Called By Carlos A eprez Crit Value Read Back Y Blood Gas Notified Time 2108 Sodium 140.0 Potassium Chloride 103.0 Carbon Dioxide Anion Gap BUN Creatinine Est GFR ( Amer) Est GFR (Non-Af Amer) POC Glucose (mg/dL) 360 H Random Glucose Lactic Acid Calcium Phosphorus Magnesium Total Bilirubin AST ALT Alkaline Phosphatase Ammonia Troponin I Total Protein Albumin Globulin Albumin/Globulin Ratio Arterial Blood Potassium 4.2 Urine Color Urine Clarity Urine pH Ur Specific [place] Urine Protein Urine Glucose (UA) Urine Ketones Urine Blood Urine Nitrate Urine Bilirubin Urine Urobilinogen Ur Leukocyte Esterase Urine WBC (Auto) Urine RBC (Auto) Ur Squamous Epith Cells Amorphous Sediment Urine Bacteria Hep Bs Antigen Hepatitis C Antibody Blood Type Antibody Screen 10/16/17 10/16/17 10/16/17 00:08 00:08 00:53 WBC RBC Hgb Hct MCV MCH MCHC RDW Plt Count MPV Neut % (Auto) Lymph % (Auto) [place] % (Auto) Eos % (Auto) Baso % (Auto) Neut # (Auto) Lymph # (Auto) [place] # (Auto) Eos # (Auto) Baso # (Auto) Neutrophils % (Manual) Band Neutrophils % Lymphocytes % (Manual) Monocytes % (Manual) Nucleated RBC % Platelet Estimate Polychromasia Hypochromasia (manual) Anisocytosis (manual) PT 16.2 H INR 1.5 APTT 61 H Puncture Site pCO2 pO2 HCO3 ABG pH ABG Total CO2 ABG O2 Saturation ABG Base Excess Philippe Test ABG Potassium A-a O2 Difference Respiratory Index Glucose Lactate Vent Mode Mechanical Rate FiO2 Tidal Volume PEEP Blood Gas Comments Crit Value Called To Crit Value Called By Crit Value Read Back Blood Gas Notified Time Sodium 140 Potassium 4.7 Chloride 96 L Carbon Dioxide 32 H Anion Gap 16 BUN 63 H Creatinine 3.6 H Est GFR ( Amer) 22 Est GFR (Non-Af Amer) 18 POC Glucose (mg/dL) 128 H Random Glucose 311 H Lactic Acid Calcium 7.7 L Phosphorus 6.4 H Magnesium 1.8 Total Bilirubin 1.5 H AST 28 ALT 31 Alkaline Phosphatase 132 H Ammonia Troponin I Total Protein 6.0 L Albumin 3.1 L Globulin 3.0 Albumin/Globulin Ratio 1.0 Arterial Blood Potassium Urine Color Urine Clarity Urine pH Ur Specific [place] Urine Protein Urine Glucose (UA) Urine Ketones Urine Blood Urine Nitrate Urine Bilirubin Urine Urobilinogen Ur Leukocyte Esterase Urine WBC (Auto) Urine RBC (Auto) Ur Squamous Epith Cells Amorphous Sediment Urine Bacteria Hep Bs Antigen Hepatitis C Antibody Blood Type Antibody Screen 10/16/17 10/16/17 10/16/17 00:55 01:57 03:37 WBC RBC Hgb Hct MCV MCH MCHC RDW Plt Count MPV Neut % (Auto) Lymph % (Auto) [place] % (Auto) Eos % (Auto) Baso % (Auto) Neut # (Auto) Lymph # (Auto) [place] # (Auto) Eos # (Auto) Baso # (Auto) Neutrophils % (Manual) Band Neutrophils % Lymphocytes % (Manual) Monocytes % (Manual) Nucleated RBC % Platelet Estimate Polychromasia Hypochromasia (manual) Anisocytosis (manual) PT INR APTT Puncture Site Mikado pCO2 64 H pO2 98 HCO3 25.6 ABG pH 7.27 L ABG Total CO2 31.4 H ABG O2 Saturation 98.5 H ABG Base Excess 0.9 Philippe Test Na ABG Potassium 4.0 A-a O2 Difference 535.0 Respiratory Index 5.5 Glucose 298 H Lactate 3.4 H Vent Mode Prvc Mechanical Rate 24 FiO2 100.0 Tidal Volume 500 PEEP 5 Blood Gas Comments Crit Value Called To Crit Value Called By Crit Value Read Back Blood Gas Notified Time Sodium 139.0 Potassium Chloride 102.0 Carbon Dioxide Anion Gap BUN Creatinine Est GFR ( Amer) Est GFR (Non-Af Amer) POC Glucose (mg/dL) 297 H 279 H Random Glucose Lactic Acid Calcium Phosphorus Magnesium Total Bilirubin AST ALT Alkaline Phosphatase Ammonia Troponin I Total Protein Albumin Globulin Albumin/Globulin Ratio Arterial Blood Potassium 4.0 Urine Color Urine Clarity Urine pH Ur Specific [place] Urine Protein Urine Glucose (UA) Urine Ketones Urine Blood Urine Nitrate Urine Bilirubin Urine Urobilinogen Ur Leukocyte Esterase Urine WBC (Auto) Urine RBC (Auto) Ur Squamous Epith Cells Amorphous Sediment Urine Bacteria Hep Bs Antigen Hepatitis C Antibody Blood Type Antibody Screen 10/16/17 10/16/17 10/16/17 03:46 03:46 03:46 WBC 18.1 H RBC 3.53 L Hgb 9.8 L Hct 31.1 L MCV 88.1 MCH 27.7 MCHC 31.4 L RDW 18.2 H Plt Count 61 L MPV 10.4 Neut % (Auto) 83.1 H Lymph % (Auto) 6.0 L [place] % (Auto) 10.2 H Eos % (Auto) 0.1 Baso % (Auto) 0.6 Neut # (Auto) 15.1 H Lymph # (Auto) 1.1 [place] # (Auto) 1.8 H Eos # (Auto) 0.0 Baso # (Auto) 0.1 Neutrophils % (Manual) Band Neutrophils % Lymphocytes % (Manual) Monocytes % (Manual) Nucleated RBC % Platelet Estimate Polychromasia Hypochromasia (manual) Anisocytosis (manual) PT INR APTT Puncture Site pCO2 pO2 HCO3 ABG pH ABG Total CO2 ABG O2 Saturation ABG Base Excess Philippe Test ABG Potassium A-a O2 Difference Respiratory Index Glucose Lactate Vent Mode Mechanical Rate FiO2 Tidal Volume PEEP Blood Gas Comments Crit Value Called To Crit Value Called By Crit Value Read Back Blood Gas Notified Time Sodium 140 Potassium 4.7 Chloride 95 L Carbon Dioxide 33 H Anion Gap 16 BUN 66 H Creatinine 3.8 H Est GFR ( Amer) 21 Est GFR (Non-Af Amer) 17 POC Glucose (mg/dL) Random Glucose 278 H Lactic Acid Calcium 7.8 L Phosphorus 7.1 H Magnesium 1.9 Total Bilirubin 1.6 H AST 29 ALT 37 Alkaline Phosphatase 127 H Ammonia Troponin I 1.2700 H* Total Protein 6.0 L Albumin 3.0 L Globulin 3.0 Albumin/Globulin Ratio 1.0 Arterial Blood Potassium Urine Color Urine Clarity Urine pH Ur Specific [place] Urine Protein Urine Glucose (UA) Urine Ketones Urine Blood Urine Nitrate Urine Bilirubin Urine Urobilinogen Ur Leukocyte Esterase Urine WBC (Auto) Urine RBC (Auto) Ur Squamous Epith Cells Amorphous Sediment Urine Bacteria Hep Bs Antigen Hepatitis C Antibody Blood Type Antibody Screen 10/16/17 10/16/17 10/16/17 03:46 03:46 04:20 WBC RBC Hgb Hct MCV MCH MCHC RDW Plt Count MPV Neut % (Auto) Lymph % (Auto) [place] % (Auto) Eos % (Auto) Baso % (Auto) Neut # (Auto) Lymph # (Auto) [place] # (Auto) Eos # (Auto) Baso # (Auto) Neutrophils % (Manual) Band Neutrophils % Lymphocytes % (Manual) Monocytes % (Manual) Nucleated RBC % Platelet Estimate Polychromasia Hypochromasia (manual) Anisocytosis (manual) PT INR APTT Puncture Site Gertrude pCO2 73 H* pO2 79 L HCO3 26.1 ABG pH 7.24 L ABG Total CO2 33.5 H ABG O2 Saturation 96.0 ABG Base Excess 1.7 Philippe Test Na ABG Potassium 4.1 A-a O2 Difference 543.0 Respiratory Index 6.9 Glucose 256 H Lactate 2.1 Vent Mode Prvc Mechanical Rate 24 FiO2 100.0 Tidal Volume 500 PEEP 5 Blood Gas Comments Crit Value Called To Elan lindquist/rn Crit Value Called By Jeff oliver/rt Crit Value Read Back Y Blood Gas Notified Time 430 Sodium 138.0 Potassium Chloride 100.0 Carbon Dioxide Anion Gap BUN Creatinine Est GFR ( Amer) Est GFR (Non-Af Amer) POC Glucose (mg/dL) Random Glucose Lactic Acid 3.3 H Calcium Phosphorus Magnesium Total Bilirubin AST ALT Alkaline Phosphatase Ammonia Troponin I Total Protein Albumin Globulin Albumin/Globulin Ratio Arterial Blood Potassium 4.1 Urine Color Urine Clarity Urine pH Ur Specific [place] Urine Protein Urine Glucose (UA) Urine Ketones Urine Blood Urine Nitrate Urine Bilirubin Urine Urobilinogen Ur Leukocyte Esterase Urine WBC (Auto) Urine RBC (Auto) Ur Squamous Epith Cells Amorphous Sediment Urine Bacteria Hep Bs Antigen Hepatitis C Antibody Blood Type A POSITIVE Antibody Screen Negative 10/16/17 10/16/17 10/16/17 04:56 06:15 06:17 WBC RBC Hgb Hct MCV MCH MCHC RDW Plt Count MPV Neut % (Auto) Lymph % (Auto) [place] % (Auto) Eos % (Auto) Baso % (Auto) Neut # (Auto) Lymph # (Auto) [place] # (Auto) Eos # (Auto) Baso # (Auto) Neutrophils % (Manual) Band Neutrophils % Lymphocytes % (Manual) Monocytes % (Manual) Nucleated RBC % Platelet Estimate Polychromasia Hypochromasia (manual) Anisocytosis (manual) PT INR APTT Puncture Site Gertrude pCO2 55 H pO2 100 HCO3 28.8 H ABG pH 7.37 ABG Total CO2 33.5 H ABG O2 Saturation 98.5 H ABG Base Excess 5.0 H Philippe Test Na ABG Potassium 3.9 A-a O2 Difference 544.0 Respiratory Index 5.4 Glucose 240 H Lactate 1.9 Vent Mode Prvc Mechanical Rate 24 FiO2 100.0 Tidal Volume 500 PEEP 5 Blood Gas Comments Crit Value Called To Crit Value Called By Crit Value Read Back Blood Gas Notified Time Sodium 138.0 Potassium Chloride 102.0 Carbon Dioxide Anion Gap BUN Creatinine Est GFR ( Amer) Est GFR (Non-Af Amer) POC Glucose (mg/dL) 310 H 182 H Random Glucose Lactic Acid Calcium Phosphorus Magnesium Total Bilirubin AST ALT Alkaline Phosphatase Ammonia Troponin I Total Protein Albumin Globulin Albumin/Globulin Ratio Arterial Blood Potassium 3.9 Urine Color Urine Clarity Urine pH Ur Specific [place] Urine Protein Urine Glucose (UA) Urine Ketones Urine Blood Urine Nitrate Urine Bilirubin Urine Urobilinogen Ur Leukocyte Esterase Urine WBC (Auto) Urine RBC (Auto) Ur Squamous Epith Cells Amorphous Sediment Urine Bacteria Hep Bs Antigen Hepatitis C Antibody Blood Type Antibody Screen 10/16/17 10/16/17 10/16/17 06:33 06:33 06:51 WBC 16.5 H RBC 3.39 L Hgb 9.5 L Hct 29.7 L MCV 87.5 MCH 27.9 MCHC 31.9 L RDW 18.1 H Plt Count 58 L MPV 10.3 Neut % (Auto) 81.9 H Lymph % (Auto) 7.3 L [place] % (Auto) 9.3 Eos % (Auto) 0.9 Baso % (Auto) 0.6 Neut # (Auto) 13.5 H Lymph # (Auto) 1.2 [place] # (Auto) 1.5 H Eos # (Auto) 0.2 Baso # (Auto) 0.1 Neutrophils % (Manual) Band Neutrophils % Lymphocytes % (Manual) Monocytes % (Manual) Nucleated RBC % Platelet Estimate Polychromasia Hypochromasia (manual) Anisocytosis (manual) PT INR APTT Puncture Site pCO2 pO2 HCO3 ABG pH ABG Total CO2 ABG O2 Saturation ABG Base Excess Philippe Test ABG Potassium A-a O2 Difference Respiratory Index Glucose Lactate Vent Mode Mechanical Rate FiO2 Tidal Volume PEEP Blood Gas Comments Crit Value Called To Crit Value Called By Crit Value Read Back Blood Gas Notified Time Sodium 139 Potassium 4.3 Chloride 95 L Carbon Dioxide 33 H Anion Gap 15 BUN 66 H Creatinine 3.8 H Est GFR ( Amer) 21 Est GFR (Non-Af Amer) 17 POC Glucose (mg/dL) Random Glucose 234 H Lactic Acid Calcium 7.6 L Phosphorus 6.8 H Magnesium 1.8 Total Bilirubin 1.5 H AST 23 ALT 33 Alkaline Phosphatase 114 Ammonia < 9 L Troponin I Total Protein 5.7 L Albumin 2.7 L Globulin 3.0 Albumin/Globulin Ratio 0.9 L Arterial Blood Potassium Urine Color Urine Clarity Urine pH Ur Specific [place] Urine Protein Urine Glucose (UA) Urine Ketones Urine Blood Urine Nitrate Urine Bilirubin Urine Urobilinogen Ur Leukocyte Esterase Urine WBC (Auto) Urine RBC (Auto) Ur Squamous Epith Cells Amorphous Sediment Urine Bacteria Hep Bs Antigen Hepatitis C Antibody Blood Type Antibody Screen
[2017-10-16 07:19] LABS: PROLACTIN 27.5 ng/mL (3.7-17.9)
[2017-10-16 08:18] LABS: EOSINOPHIL 1 % (0-4); LYMPHOCYTE 5 % (20-40); MONOCYTE 7 % (0-10); NEUTROPHIL 87 % (50-75); NUCLEATED RED BLOOD CELL 3 % (0-0); PLATELET ESTIMATE DECREASED (NORMAL); TOTAL CELLS COUNTED 100
[2017-10-16 08:19] LABS: ANISOCYTOSIS SLIGHT; HYPOCHROMIC SLIGHT; MICROCYTOSIS SLIGHT; POIKILOCYTOSIS SLIGHT; TARGET CELLS SLIGHT
[2017-10-16 08:20] LABS: LARGE PLATELETS PRESENT
[2017-10-16 08:21] LABS: OVALOCYTES SLIGHT
--- NOTE | 2017-10-16 08:37 | CT ---
Date of service: 10/15/2017 PROCEDURE: CT HEAD WITHOUT CONTRAST. HISTORY: post cpr COMPARISON: None available. TECHNIQUE: Axial computed tomography images were obtained through the head/brain without intravenous contrast. Radiation dose: Total exam DLP = 1237.36 mGy-cm. This CT exam was performed using one or more of the following dose reduction techniques: Automated exposure control, adjustment of the mA and/or kV according to patient size, and/or use of iterative reconstruction technique. FINDINGS: HEMORRHAGE: No intracranial hemorrhage. BRAIN: No mass effect or edema. No atrophy or chronic microvascular ischemic changes. VENTRICLES: Unremarkable. No hydrocephalus. CALVARIUM: Unremarkable. PARANASAL SINUSES: Left frontal sinus osteoma. Chronic pansinusitis with air-fluid levels in the maxillary antra common nonspecific. MASTOID AIR CELLS: Bilateral mastoid effusion common nonspecific. This represents interval change from the prior examination. OTHER FINDINGS: None. IMPRESSION: No intracranial hemorrhage. No intracranial mass or evidence of acute infarct. Chronic pansinusitis. Air-fluid levels in maxillary antra bilaterally, nonspecific. Left frontal osteoma. Bilateral mastoid effusion. The preliminary findings for this examination were reported by [facility] at 11:48 p.m. on 10/15/2017. There is concurrence of this report with the preliminary findings.
--- NOTE | 2017-10-16 08:43 | RAD ---
Date of service: 10/16/2017 HISTORY: eval lungs COMPARISON: 10/15/2017 FINDINGS: The endotracheal tube terminates 2 cm proximal to the fish the LUNGS: There is interval improved aeration in the right lung. There is worsening airspace disease in the left lung. Persistent severe pulmonary venous congestion. PLEURA: Suspect pleural effusions, no pneumothorax apparent. CARDIOVASCULAR: Persistent severe cardiomegaly. . OSSEOUS STRUCTURES: No significant abnormalities. VISUALIZED UPPER ABDOMEN: Normal. OTHER FINDINGS: None. IMPRESSION: Worsening left lung go pulmonary edema. Interval mild improved aeration in the right lung. Persistent presumable congestive heart failure.
[2017-10-16] MEDS: Sod Polystyrene Sulf 15 gm/60 ml Susp PO SCH ×2 (10:00→18:00)
--- NOTE | 2017-10-16 10:16 | CP.PCM.PN ---
Subjective - Date & Time of Evaluation Date of Evaluation: 10/16/17 Time of Evaluation: 10:14 - Subjective Subjective: events noted, s/p dialysis 10/15 now on vent, not responsive, on hypothermia blanket off pressors, BP elevated tolerated dialysis ok; concern now for anoxic encephalopathy Objective - Vital Signs/Intake and Output Vital Signs (last 24 hours): Temp Pulse Resp BP Pulse Ox 95.0 F L 70 24 214/94 H 100 10/16/17 10:00 10/16/17 10:00 10/16/17 10:00 10/16/17 10:00 10/16/17 09:05 Intake and Output: 10/16/17 10/16/17 06:59 18:59 Intake Total 742.2 414.3 Output Total 1040 20 Balance -297.8 394.3 - Medications Medications: Current Medications Albuterol/Ipratropium (Duoneb 3 Mg/0.5 Mg (3 Ml) Ud) 3 ml INH RQ6 ANABELLA Last Admin: 10/16/17 07:50 Dose: 3 ml Aspirin (Aspirin Chewable) 81 mg PO DAILY ANABELLA Last Admin: 10/15/17 09:12 Dose: 81 mg Dextrose (Dextrose 50% Inj) 0 ml IV STAT PRN; Protocol PRN Reason: Hypoglycemia Protocol Dextrose (Glutose 15) 0 gm PO ONCE PRN; Protocol PRN Reason: Hypoglycemia Protocol Dextrose (Dextrose 50% Inj) 0 ml IV STAT PRN; Protocol PRN Reason: Hypoglycemia Protocol Dextrose (Glutose 15) 0 gm PO ONCE PRN; Protocol PRN Reason: Hypoglycemia Protocol Glucagon (Glucagen Diagnostic Kit) 0 mg IM STAT PRN; Protocol PRN Reason: Hypoglycemia Protocol Glucagon (Glucagen Diagnostic Kit) 0 mg IM STAT PRN; Protocol PRN Reason: Hypoglycemia Protocol Dextrose (Dextrose 5% In Water 1000 Ml) 1,000 mls @ 0 mls/hr IV .Q0M PRN; Protocol; Per Protocol PRN Reason: Hypoglycemia Protocol Doxycycline Hyclate 100 mg/ (Sodium Chloride) 100 mls @ 100 mls/hr IVPB Q12H ANABELLA PRN Reason: Protocol Last Admin: 10/16/17 05:08 Dose: 100 mls/hr Piperacillin Sod/Tazobactam Sod (Zosyn 2.25 Gm Iv Premix) 2.25 gm in 50 mls @ 100 mls/hr IVPB Q6H ANABELLA PRN Reason: Protocol Last Admin: 10/16/17 05:00 Dose: 100 mls/hr Propofol (Diprivan) 1,000 mg in 100 mls @ 4.307 mls/hr IV .[id number] PRN; Protocol; 5 MCG/KG/MIN PRN Reason: TITRATE PER MD ORDER Last Titration: 10/16/17 09:00 Dose: 0 mcg/kg/min, 0 mls/hr Norepinephrine Bitartrate 8 mg (/ Dextrose) 258 mls @ 7.74 mls/hr IV .Q24H PRN ; Protocol; 4 MCG/MIN PRN Reason: TITRATE PER MD ORDER Last Titration: 10/16/17 00:00 Dose: 0 mcg/min, 0 mls/hr Dextrose (Dextrose 5% In Water 1000 Ml) 1,000 mls @ 0 mls/hr IV .Q0M PRN; Protocol; Per Protocol PRN Reason: Hypoglycemia Protocol Cisatracurium Besylate 100 mg/ (Dextrose) 260 mls @ 67.18 mls/hr IV .Q3H53M PRN ; 3 MCG/KG/MIN PRN Reason: Protocol Last Titration: 10/16/17 09:30 Dose: 2 mcg/kg/min, 44.79 mls/hr Fentanyl Citrate 2,500 mcg/ (Sodium Chloride) 250 mls @ 28.71 mls/hr IV .Q8H43M PRN; 2 MCG/KG/HR PRN Reason: Protocol Last Titration: 10/16/17 09:00 Dose: 0 mcg/kg/hr, 0 mls/hr Insulin Human Regular (Novolin R) 0 unit SC Q6H ANABELLA PRN Reason: Protocol Last Admin: 10/16/17 04:59 Dose: 6 units Pantoprazole Sodium (Protonix Inj) 40 mg IVP Q12H [facility] Last Admin: 10/16/17 01:30 Dose: 40 mg Rosuvastatin Calcium (Crestor) 20 mg PO HS [facility] Last Admin: 10/15/17 23:09 Dose: Not Given Sodium Bicarbonate (Sodium Bicarbonate Tab) 650 mg PO TID [facility] Last Admin: 10/15/17 18:01 Dose: 650 mg Sodium Polystyrene Sulfonate (Kayexalate Susp) 30 gm PO BID [facility] Last Admin: 07/29/18 18:53 Dose: 30 gm - Labs Labs: 10/16/17 06:33 10/16/17 06:33 PT 16.2 SECONDS (9.7-12.2) H 10/16/17 00:08 INR 1.5 10/16/17 00:08 APTT 57 SECONDS (21-34) H 10/16/17 06:33 - Constitutional Appears: In Acute Distress, Chronically Ill - Head Exam Head Exam: ATRAUMATIC, NORMAL INSPECTION - Neck Exam Neck Exam: Normal Inspection. absent: Tenderness - Respiratory Exam Respiratory Exam: Wheezes, Respiratory Distress - Cardiovascular Exam Cardiovascular Exam: REGULAR RHYTHM, +S1 - GI/Abdominal Exam GI & Abdominal Exam: Soft. absent: Tenderness - Extremities Exam Extremities Exam: Normal Inspection. absent: Tenderness - Neurological Exam Neurological Exam: Altered - Skin Skin Exam: Dry, Warm Assessment and Plan (1) COPD exacerbation Status: Acute (2) Type 2 diabetes mellitus with diabetic nephropathy Status: Acute (3) CHF (congestive heart failure) Status: Acute (4) Nephrotic syndrome Status: Acute (5) CO2 retention Status: Acute (6) HTN (hypertension) Status: Chronic (7) HENRIQUE (acute kidney injury) Status: Acute (8) Anoxic encephalopathy Status: Acute - Assessment and Plan (Free Text) Plan: repeat dialysis today, daily as needed monitor K- appears controlled now vent care monitor mental status- not responsive at present
--- NOTE | 2017-10-16 11:09 | CP.CCUPN ---
<Gwyn Leslie - Last Filed: 10/16/17 15:34> CCU Subjective - Physician Review Subjective (Free Text): Gwyn Leslie DO PGY-1, ICU progress note for Dr. Long Pt seen and examined at bedside. ROS was unobtainable due to pt being intubated and sedated. Pt produced 1000 mL of clear urine over the past 12 hours. Pt was afebrile overnight. Prior to examination, pt's BP was noted to be 170/91 mmHg and pt was given Hydralazine 10 mg IVP. Currently, pt is receiving Nimbex 3 mcg/ kg/hr, Propofol 20 mcg/hr, Fentanyl 2 mcg/kg/hr. Pt is on PRVC: 490/24RR/100%/5 A 12-point ROS was unobtainable due to intubation and sedation. CCU Objective - Vital Signs / Intake & Output Vital Signs (Last 4 hours): Vital Signs Temp Pulse Resp BP Pulse Ox 10/16/17 10:05 78 24 227/109 H 100 10/16/17 10:00 95.0 F L 68 18 214/94 H 100 10/16/17 09:50 79 21 208/102 H 100 10/16/17 09:36 57 L 24 186/97 H 100 10/16/17 09:05 58 L 24 152/93 H 100 10/16/17 09:00 95.8 F L 55 L 24 170/91 H 100 10/16/17 08:00 96.6 F L 65 24 138/90 100 Intake and Output (Last 8hrs): Intake & Output 10/15/17 10/16/17 10/16/17 22:59 06:59 14:59 Intake Total 893.0 470.8 434.3 Output Total 1710 360 190 Balance -817.0 110.8 244.3 Weight 143.562 kg 143.562 kg Intake: IV 110.0 138 360 Intake, IV Amount 473.0 332.8 74.3 Left 95.5 Left Distal Port Femoral 57.4 28.7 Left Medial Port Femoral 7.7 67.0 25.8 Left Proximal Port 19.8 158.4 19.8 Femoral Right Upper arm 350 50 Oral 0 Other 310 Output: Gastric Amount 600 200 Stomach 600 200 Urine 110 160 190 Urethral ([place]) 110 160 190 Emesis 0 Other 1000 Other: Voiding Method Indwelling Catheter # Bowel Movements 0 0 0 - Physical Exam Head: Positive for: Atraumatic, Normocephalic Pupils: Positive for: Sluggish Extroacular Muscles: Positive for: Other ((+) blinking during pupil examination) Conjunctiva: Positive for: Normal Mouth: Positive for: Moist Mucous Membranes, Other ((+) ETT) Respiratory/Chest: Positive for: Clear to Auscultation, Other (PRVC 490/24/100/5 ) Cardiovascular: Positive for: Regular Rate and Rhythm, Normal S1, S2 Abdomen: Positive for: Distention, Normal Bowel Sounds (in all 4 quadrants), Other (morbid obesity). Negative for: Tenderness (no physical response to deep palpation), Peritoneal Signs Upper Extremity: Positive for: Normal Inspection, NORMAL PULSES, Other ((+) left radial a-line; c/d/i) Lower Extremity: Positive for: Normal Inspection, Edema (3+ pitting edema bilateral lower extremities), NORMAL PULSES, Other ((+) left femoral TLC; c/d/i) Skin: Positive for: Dry, Cold ((+) hypothermia blanket) Psychiatric: Positive for: Other (GCS 3t; sedated) - Medications Active Medications: Active Medications Generic Name Dose Route Start Last Admin Trade Name Freq PRN Reason Stop Dose Admin Albuterol/Ipratropium 3 ml 10/15/17 14:00 10/16/17 07:50 Duoneb 3 Mg/0.5 Mg (3 Ml) Ud INH 3 ml RQ6 ANABELLA Administration Aspirin 81 mg 10/14/17 10:00 10/15/17 09:12 Aspirin Chewable PO 81 mg DAILY ANABELLA Administration Dextrose 0 ml 10/13/17 10:07 Dextrose 50% Inj IV STAT PRN Hypoglycemia Protocol Protocol Dextrose 0 gm 10/13/17 10:07 Glutose 15 PO ONCE PRN Hypoglycemia Protocol Protocol Dextrose 0 ml 10/15/17 23:36 Dextrose 50% Inj IV STAT PRN Hypoglycemia Protocol Protocol Dextrose 0 gm 10/15/17 23:36 Glutose 15 PO ONCE PRN Hypoglycemia Protocol Protocol Glucagon 0 mg 10/13/17 10:07 Glucagen Diagnostic Kit IM STAT PRN Hypoglycemia Protocol Protocol Glucagon 0 mg 10/15/17 23:36 Glucagen Diagnostic Kit IM STAT PRN Hypoglycemia Protocol Protocol Dextrose 1,000 mls @ 0 mls/hr 10/13/17 10:07 Dextrose 5% In Water 1000 Ml IV .Q0M PRN Hypoglycemia Protocol Protocol Per Protocol Doxycycline Hyclate 100 mg/ 100 mls @ 100 mls/hr 10/15/17 18:00 10/16/17 05: 08 Sodium Chloride IVPB 100 mls/hr Q12H ANABELLA Administration Protocol Piperacillin Sod/Tazobactam Sod 2.25 gm in 50 mls @ 100 mls/hr 10/15/17 17:30 10/16/17 05:00 Zosyn 2.25 Gm Iv Premix IVPB 100 mls/hr Q6H ANABELLA Administration Protocol Propofol 1,000 mg in 100 mls @ 4.307 mls/hr 10/15/17 17:17 10/16/17 11:03 Diprivan IV 10 mcg/kg/min .[id number] PRN 8.614 mls/hr TITRATE PER MD ORDER Administration Protocol 5 MCG/KG/MIN Norepinephrine Bitartrate 8 mg 258 mls @ 7.74 mls/hr 10/15/17 21:08 10/16/17 00:00 / Dextrose IV 0 mcg/min .Q24H PRN 0 mls/hr TITRATE PER MD ORDER Titration Protocol 4 MCG/MIN Dextrose 1,000 mls @ 0 mls/hr 10/15/17 23:36 Dextrose 5% In Water 1000 Ml IV .Q0M PRN Hypoglycemia Protocol Protocol Per Protocol Cisatracurium Besylate 100 mg/ 260 mls @ 67.18 mls/hr 10/16/17 03:30 10:00 Dextrose IV 1 mcg/kg/min .Q3H53M PRN 22.39 mls/hr Protocol Titration 3 MCG/KG/MIN Fentanyl Citrate 2,500 mcg/ 250 mls @ 28.71 mls/hr 10/16/17 03:30 10/16/17 09 :00 Sodium Chloride IV 0 mcg/kg/hr .Q8H43M PRN 0 mls/hr Protocol Titration 2 MCG/KG/HR Insulin Human Regular 0 unit 10/15/17 18:00 10/16/17 04:59 Novolin R SC 6 units Q6H ANABELLA Administration Protocol Pantoprazole Sodium 40 mg 10/16/17 01:00 10/16/17 01:30 Protonix Inj IVP 40 mg Q12H ANABELLA Administration Rosuvastatin Calcium 20 mg 10/13/17 22:00 10/15/17 23:09 Crestor PO Not Given HS ANABELLA Sodium Bicarbonate 650 mg 10/15/17 10:00 10/15/17 18:01 Sodium Bicarbonate Tab PO 650 mg TID ANABELLA Administration Sodium Polystyrene Sulfonate 30 gm 10/15/17 10:00 10/15/17 18:53 Kayexalate Susp PO 30 gm BID ANABELLA Administration - Patient Studies Lab Studies: Microbiology Studies 10/15/17 17:35 Gram Stain - Final Sputum Lab Studies 10/16/17 10/16/17 10/16/17 Range/Units 06:51 06:51 06:33 WBC (4.8-10.8) K/uL RBC (4.40-5.90) Mil/uL Hgb (12.0-18.0) g/dL Hct (35.0-51.0) % MCV (80.0-94.0) fL MCH (27.0-31.0) pg MCHC (33.0-37.0) g/dL RDW (11.5-14.5) % Plt Count (130-400) K/uL MPV (7.2-11.7) fL Neut % (Auto) (50.0-75.0) % Lymph % (Auto) (20.0-40.0) % [place] % (Auto) (0.0-10.0) % Eos % (Auto) (0.0-4.0) % Baso % (Auto) (0.0-2.0) % Neut # (Auto) (1.8-7.0) K/uL Lymph # (Auto) (1.0-4.3) K/uL [place] # (Auto) (0.0-0.8) K/uL Eos # (Auto) (0.0-0.7) K/uL Baso # (Auto) (0.0-0.2) K/uL Neutrophils % (Manual) (50-75) % Band Neutrophils % (0-2) % Lymphocytes % (Manual) (20-40) % Monocytes % (Manual) (0-10) % Eosinophils % (Manual) (0-4) % Nucleated RBC % (0-0) % Platelet Estimate (NORMAL) Large Platelets Polychromasia Hypochromasia (manual) Poikilocytosis (manual Basophilic Stippling Anisocytosis (manual) Microcytosis (manual) Target Cells Ovalocytes PT (9.7-12.2) SECONDS INR APTT (21-34) SECONDS Puncture Site pCO2 (35-45) mm/Hg pO2 (80-100) mm/Hg HCO3 (21-28) mmol/L ABG pH (7.35-7.45) ABG Total CO2 (22-28) mmol/L ABG O2 Saturation (95-98) % ABG Base Excess (-2.0-3.0) mmol/L Philippe Test ABG Potassium (3.6-5.2) mmol/L A-a O2 Difference mm/Hg Respiratory Index Sodium 139 (132-148) mmol/l Chloride 95 L (98-107) mmol/L Glucose (75-110) mg/dl Lactate (0.7-2.1) mmol/L Vent Mode Mechanical Rate FiO2 % Tidal Volume PEEP Blood Gas Comments Crit Value Called To Crit Value Called By Crit Value Read Back Blood Gas Notified Time Potassium 4.3 (3.6-5.2) mmol/L Carbon Dioxide 33 H (22-30) mmol/L Anion Gap 15 (10-20) BUN 66 H (9-20) mg/dL Creatinine 3.8 H (0.8-1.5) mg/dL Est GFR ( Amer) 21 Est GFR (Non-Af Amer) 17 POC Glucose (mg/dL) (65-110) mg/dL Random Glucose 234 H (75-110) mg/dL Hemoglobin A1c 9.1 H D (4.2-6.5) % Lactic Acid (0.7-2.1) mmol/L Calcium 7.6 L (8.6-10.4) mg/dl Phosphorus 6.8 H (2.5-4.5) mg/dL Magnesium 1.8 (1.6-2.3) mg/dL Total Bilirubin 1.5 H (0.2-1.3) mg/dL AST 23 (17-59) U/L ALT 33 (21-72) U/L Alkaline Phosphatase 114 (38-126) U/L Ammonia < 9 L (9-33) umol/L Troponin I (0.00-0.120) ng/mL Total Protein 5.7 L (6.3-8.3) g/dL Albumin 2.7 L (3.5-5.0) g/dL Globulin 3.0 (2.2-3.9) gm/dL Albumin/Globulin Ratio 0.9 L (1.0-2.1) Prolactin 27.5 H (3.7-17.9) ng/mL Arterial Blood Potassium (3.6-5.2) mmol/L Urine Color (YELLOW) Urine Clarity (Clear) Urine pH (5.0-8.0) Ur Specific [place] (1.003-1.030) Urine Protein (NEGATIVE) mg/dL Urine Glucose (UA) (Normal) mg/dL Urine Ketones (NEGATIVE) mg/dL Urine Blood (NEGATIVE) Urine Nitrate (NEGATIVE) Urine Bilirubin (NEGATIVE) Urine Urobilinogen (0.2-1.0) mg/dL Ur Leukocyte Esterase (Negative) Mert/uL Urine WBC (Auto) (0-5) /hpf Urine RBC (Auto) (0-3) /hpf Ur Squamous Epith Cells (0-5) /hpf Amorphous Sediment (<OCC) /ul Urine Bacteria (<OCC) Hep Bs Antigen (NEGATIVE) Hep Bs Antibody (NEGATIVE) Hepatitis C Antibody (NEGATIVE) Blood Type Antibody Screen 10/16/17 10/16/17 10/16/17 Range/Units 06:33 06:33 06:17 WBC 16.5 H (4.8-10.8) K/uL RBC 3.39 L (4.40-5.90) Mil/uL Hgb 9.5 L (12.0-18.0) g/dL Hct 29.7 L (35.0-51.0) % MCV 87.5 (80.0-94.0) fL MCH 27.9 (27.0-31.0) pg MCHC 31.9 L (33.0-37.0) g/dL RDW 18.1 H (11.5-14.5) % Plt Count 58 L (130-400) K/uL MPV 10.3 (7.2-11.7) fL Neut % (Auto) 81.9 H (50.0-75.0) % Lymph % (Auto) 7.3 L (20.0-40.0) % [place] % (Auto) 9.3 (0.0-10.0) % Eos % (Auto) 0.9 (0.0-4.0) % Baso % (Auto) 0.6 (0.0-2.0) % Neut # (Auto) 13.5 H (1.8-7.0) K/uL Lymph # (Auto) 1.2 (1.0-4.3) K/uL [place] # (Auto) 1.5 H (0.0-0.8) K/uL Eos # (Auto) 0.2 (0.0-0.7) K/uL Baso # (Auto) 0.1 (0.0-0.2) K/uL Neutrophils % (Manual) 87 H (50-75) % Band Neutrophils % (0-2) % Lymphocytes % (Manual) 5 L (20-40) % Monocytes % (Manual) 7 (0-10) % Eosinophils % (Manual) 1 (0-4) % Nucleated RBC % 3 H (0-0) % Platelet Estimate Decreased L (NORMAL) Large Platelets Present Polychromasia Hypochromasia (manual) Slight Poikilocytosis (manual Slight Basophilic Stippling Slight Anisocytosis (manual) Slight Microcytosis (manual) Slight Target Cells Slight Ovalocytes Slight PT (9.7-12.2) SECONDS INR APTT 57 H (21-34) SECONDS Puncture Site pCO2 (35-45) mm/Hg pO2 (80-100) mm/Hg HCO3 (21-28) mmol/L ABG pH (7.35-7.45) ABG Total CO2 (22-28) mmol/L ABG O2 Saturation (95-98) % ABG Base Excess (-2.0-3.0) mmol/L Philippe Test ABG Potassium (3.6-5.2) mmol/L A-a O2 Difference mm/Hg Respiratory Index Sodium (132-148) mmol/l Chloride (98-107) mmol/L Glucose (75-110) mg/dl Lactate (0.7-2.1) mmol/L Vent Mode Mechanical Rate FiO2 % Tidal Volume PEEP Blood Gas Comments Crit Value Called To Crit Value Called By Crit Value Read Back Blood Gas Notified Time Potassium (3.6-5.2) mmol/L Carbon Dioxide (22-30) mmol/L Anion Gap (10-20) BUN (9-20) mg/dL Creatinine (0.8-1.5) mg/dL Est GFR ( Amer) Est GFR (Non-Af Amer) POC Glucose (mg/dL) 182 H (65-110) mg/dL Random Glucose (75-110) mg/dL Hemoglobin A1c (4.2-6.5) % Lactic Acid (0.7-2.1) mmol/L Calcium (8.6-10.4) mg/dl Phosphorus (2.5-4.5) mg/dL Magnesium (1.6-2.3) mg/dL Total Bilirubin (0.2-1.3) mg/dL AST (17-59) U/L ALT (21-72) U/L Alkaline Phosphatase (38-126) U/L Ammonia (9-33) umol/L Troponin I (0.00-0.120) ng/mL Total Protein (6.3-8.3) g/dL Albumin (3.5-5.0) g/dL Globulin (2.2-3.9) gm/dL Albumin/Globulin Ratio (1.0-2.1) Prolactin (3.7-17.9) ng/mL Arterial Blood Potassium (3.6-5.2) mmol/L Urine Color (YELLOW) Urine Clarity (Clear) Urine pH (5.0-8.0) Ur Specific [place] (1.003-1.030) Urine Protein (NEGATIVE) mg/dL Urine Glucose (UA) (Normal) mg/dL Urine Ketones (NEGATIVE) mg/dL Urine Blood (NEGATIVE) Urine Nitrate (NEGATIVE) Urine Bilirubin (NEGATIVE) Urine Urobilinogen (0.2-1.0) mg/dL Ur Leukocyte Esterase (Negative) Mert/uL Urine WBC (Auto) (0-5) /hpf Urine RBC (Auto) (0-3) /hpf Ur Squamous Epith Cells (0-5) /hpf Amorphous Sediment (<OCC) /ul Urine Bacteria (<OCC) Hep Bs Antigen (NEGATIVE) Hep Bs Antibody (NEGATIVE) Hepatitis C Antibody (NEGATIVE) Blood Type Antibody Screen 10/16/17 10/16/17 10/16/17 Range/Units 06:15 04:56 04:20 WBC (4.8-10.8) K/uL RBC (4.40-5.90) Mil/uL Hgb (12.0-18.0) g/dL Hct (35.0-51.0) % MCV (80.0-94.0) fL MCH (27.0-31.0) pg MCHC (33.0-37.0) g/dL RDW (11.5-14.5) % Plt Count (130-400) K/uL MPV (7.2-11.7) fL Neut % (Auto) (50.0-75.0) % Lymph % (Auto) (20.0-40.0) % [place] % (Auto) (0.0-10.0) % Eos % (Auto) (0.0-4.0) % Baso % (Auto) (0.0-2.0) % Neut # (Auto) (1.8-7.0) K/uL Lymph # (Auto) (1.0-4.3) K/uL [place] # (Auto) (0.0-0.8) K/uL Eos # (Auto) (0.0-0.7) K/uL Baso # (Auto) (0.0-0.2) K/uL Neutrophils % (Manual) (50-75) % Band Neutrophils % (0-2) % Lymphocytes % (Manual) (20-40) % Monocytes % (Manual) (0-10) % Eosinophils % (Manual) (0-4) % Nucleated RBC % (0-0) % Platelet Estimate (NORMAL) Large Platelets Polychromasia Hypochromasia (manual) Poikilocytosis (manual Basophilic Stippling Anisocytosis (manual) Microcytosis (manual) Target Cells Ovalocytes PT (9.7-12.2) SECONDS INR APTT (21-34) SECONDS Puncture Site [place] pCO2 55 H 73 H* (35-45) mm/Hg pO2 100 79 L (80-100) mm/Hg HCO3 28.8 H 26.1 (21-28) mmol/L ABG pH 7.37 7.24 L (7.35-7.45) ABG Total CO2 33.5 H 33.5 H (22-28) mmol/L ABG O2 Saturation 98.5 H 96.0 (95-98) % ABG Base Excess 5.0 H 1.7 (-2.0-3.0) mmol/L Philippe Test Na Na ABG Potassium 3.9 4.1 (3.6-5.2) mmol/L A-a O2 Difference 544.0 543.0 mm/Hg Respiratory Index 5.4 6.9 Sodium 138.0 138.0 (132-148) mmol/l Chloride 102.0 100.0 (98-107) mmol/L Glucose 240 H 256 H (75-110) mg/dl Lactate 1.9 2.1 (0.7-2.1) mmol/L Vent Mode Prvc Prvc Mechanical Rate 24 24 FiO2 100.0 100.0 % Tidal Volume 500 500 PEEP 5 5 Blood Gas Comments Crit Value Called To Elan lindquist/rn Crit Value Called By Jeff oliver/rt Crit Value Read Back Y Blood Gas Notified Time 430 Potassium (3.6-5.2) mmol/L Carbon Dioxide (22-30) mmol/L Anion Gap (10-20) BUN (9-20) mg/dL Creatinine (0.8-1.5) mg/dL Est GFR ( Amer) Est GFR (Non-Af Amer) POC Glucose (mg/dL) 310 H (65-110) mg/dL Random Glucose (75-110) mg/dL Hemoglobin A1c (4.2-6.5) % Lactic Acid (0.7-2.1) mmol/L Calcium (8.6-10.4) mg/dl Phosphorus (2.5-4.5) mg/dL Magnesium (1.6-2.3) mg/dL Total Bilirubin (0.2-1.3) mg/dL AST (17-59) U/L ALT (21-72) U/L Alkaline Phosphatase (38-126) U/L Ammonia (9-33) umol/L Troponin I (0.00-0.120) ng/mL Total Protein (6.3-8.3) g/dL Albumin (3.5-5.0) g/dL Globulin (2.2-3.9) gm/dL Albumin/Globulin Ratio (1.0-2.1) Prolactin (3.7-17.9) ng/mL Arterial Blood Potassium 3.9 4.1 (3.6-5.2) mmol/L Urine Color (YELLOW) Urine Clarity (Clear) Urine pH (5.0-8.0) Ur Specific [place] (1.003-1.030) Urine Protein (NEGATIVE) mg/dL Urine Glucose (UA) (Normal) mg/dL Urine Ketones (NEGATIVE) mg/dL Urine Blood (NEGATIVE) Urine Nitrate (NEGATIVE) Urine Bilirubin (NEGATIVE) Urine Urobilinogen (0.2-1.0) mg/dL Ur Leukocyte Esterase (Negative) Mert/uL Urine WBC (Auto) (0-5) /hpf Urine RBC (Auto) (0-3) /hpf Ur Squamous Epith Cells (0-5) /hpf Amorphous Sediment (<OCC) /ul Urine Bacteria (<OCC) Hep Bs Antigen (NEGATIVE) Hep Bs Antibody (NEGATIVE) Hepatitis C Antibody (NEGATIVE) Blood Type Antibody Screen 10/16/17 10/16/17 10/16/17 Range/Units 03:46 03:46 03:46 WBC (4.8-10.8) K/uL RBC (4.40-5.90) Mil/uL Hgb (12.0-18.0) g/dL Hct (35.0-51.0) % MCV (80.0-94.0) fL MCH (27.0-31.0) pg MCHC (33.0-37.0) g/dL RDW (11.5-14.5) % Plt Count (130-400) K/uL MPV (7.2-11.7) fL Neut % (Auto) (50.0-75.0) % Lymph % (Auto) (20.0-40.0) % [place] % (Auto) (0.0-10.0) % Eos % (Auto) (0.0-4.0) % Baso % (Auto) (0.0-2.0) % Neut # (Auto) (1.8-7.0) K/uL Lymph # (Auto) (1.0-4.3) K/uL [place] # (Auto) (0.0-0.8) K/uL Eos # (Auto) (0.0-0.7) K/uL Baso # (Auto) (0.0-0.2) K/uL Neutrophils % (Manual) (50-75) % Band Neutrophils % (0-2) % Lymphocytes % (Manual) (20-40) % Monocytes % (Manual) (0-10) % Eosinophils % (Manual) (0-4) % Nucleated RBC % (0-0) % Platelet Estimate (NORMAL) Large Platelets Polychromasia Hypochromasia (manual) Poikilocytosis (manual Basophilic Stippling Anisocytosis (manual) Microcytosis (manual) Target Cells Ovalocytes PT (9.7-12.2) SECONDS INR APTT (21-34) SECONDS Puncture Site pCO2 (35-45) mm/Hg pO2 (80-100) mm/Hg HCO3 (21-28) mmol/L ABG pH (7.35-7.45) ABG Total CO2 (22-28) mmol/L ABG O2 Saturation (95-98) % ABG Base Excess (-2.0-3.0) mmol/L Philippe Test ABG Potassium (3.6-5.2) mmol/L A-a O2 Difference mm/Hg Respiratory Index Sodium (132-148) mmol/l Chloride (98-107) mmol/L Glucose (75-110) mg/dl Lactate (0.7-2.1) mmol/L Vent Mode Mechanical Rate FiO2 % Tidal Volume PEEP Blood Gas Comments Crit Value Called To Crit Value Called By Crit Value Read Back Blood Gas Notified Time Potassium (3.6-5.2) mmol/L Carbon Dioxide (22-30) mmol/L Anion Gap (10-20) BUN (9-20) mg/dL Creatinine (0.8-1.5) mg/dL Est GFR ( Amer) Est GFR (Non-Af Amer) POC Glucose (mg/dL) (65-110) mg/dL Random Glucose (75-110) mg/dL Hemoglobin A1c (4.2-6.5) % Lactic Acid 3.3 H (0.7-2.1) mmol/L Calcium (8.6-10.4) mg/dl Phosphorus 7.1 H (2.5-4.5) mg/dL Magnesium 1.9 (1.6-2.3) mg/dL Total Bilirubin (0.2-1.3) mg/dL AST (17-59) U/L ALT (21-72) U/L Alkaline Phosphatase (38-126) U/L Ammonia (9-33) umol/L Troponin I 1.2700 H* (0.00-0.120) ng/mL Total Protein (6.3-8.3) g/dL Albumin (3.5-5.0) g/dL Globulin (2.2-3.9) gm/dL Albumin/Globulin Ratio (1.0-2.1) Prolactin (3.7-17.9) ng/mL Arterial Blood Potassium (3.6-5.2) mmol/L Urine Color (YELLOW) Urine Clarity (Clear) Urine pH (5.0-8.0) Ur Specific [place] (1.003-1.030) Urine Protein (NEGATIVE) mg/dL Urine Glucose (UA) (Normal) mg/dL Urine Ketones (NEGATIVE) mg/dL Urine Blood (NEGATIVE) Urine Nitrate (NEGATIVE) Urine Bilirubin (NEGATIVE) Urine Urobilinogen (0.2-1.0) mg/dL Ur Leukocyte Esterase (Negative) Mert/uL Urine WBC (Auto) (0-5) /hpf Urine RBC (Auto) (0-3) /hpf Ur Squamous Epith Cells (0-5) /hpf Amorphous Sediment (<OCC) /ul Urine Bacteria (<OCC) Hep Bs Antigen (NEGATIVE) Hep Bs Antibody (NEGATIVE) Hepatitis C Antibody (NEGATIVE) Blood Type A POSITIVE Antibody Screen Negative 10/16/17 10/16/17 10/16/17 Range/Units 03:46 03:46 03:37 WBC 18.1 H (4.8-10.8) K/uL RBC 3.53 L (4.40-5.90) Mil/uL Hgb 9.8 L (12.0-18.0) g/dL Hct 31.1 L (35.0-51.0) % MCV 88.1 (80.0-94.0) fL MCH 27.7 (27.0-31.0) pg MCHC 31.4 L (33.0-37.0) g/dL RDW 18.2 H (11.5-14.5) % Plt Count 61 L (130-400) K/uL MPV 10.4 (7.2-11.7) fL Neut % (Auto) 83.1 H (50.0-75.0) % Lymph % (Auto) 6.0 L (20.0-40.0) % [place] % (Auto) 10.2 H (0.0-10.0) % Eos % (Auto) 0.1 (0.0-4.0) % Baso % (Auto) 0.6 (0.0-2.0) % Neut # (Auto) 15.1 H (1.8-7.0) K/uL Lymph # (Auto) 1.1 (1.0-4.3) K/uL [place] # (Auto) 1.8 H (0.0-0.8) K/uL Eos # (Auto) 0.0 (0.0-0.7) K/uL Baso # (Auto) 0.1 (0.0-0.2) K/uL Neutrophils % (Manual) (50-75) % Band Neutrophils % (0-2) % Lymphocytes % (Manual) (20-40) % Monocytes % (Manual) (0-10) % Eosinophils % (Manual) (0-4) % Nucleated RBC % (0-0) % Platelet Estimate (NORMAL) Large Platelets Polychromasia Hypochromasia (manual) Poikilocytosis (manual Basophilic Stippling Anisocytosis (manual) Microcytosis (manual) Target Cells Ovalocytes PT (9.7-12.2) SECONDS INR APTT (21-34) SECONDS Puncture Site pCO2 (35-45) mm/Hg pO2 (80-100) mm/Hg HCO3 (21-28) mmol/L ABG pH (7.35-7.45) ABG Total CO2 (22-28) mmol/L ABG O2 Saturation (95-98) % ABG Base Excess (-2.0-3.0) mmol/L Philippe Test ABG Potassium (3.6-5.2) mmol/L A-a O2 Difference mm/Hg Respiratory Index Sodium 140 (132-148) mmol/l Chloride 95 L (98-107) mmol/L Glucose (75-110) mg/dl Lactate (0.7-2.1) mmol/L Vent Mode Mechanical Rate FiO2 % Tidal Volume PEEP Blood Gas Comments Crit Value Called To Crit Value Called By Crit Value Read Back Blood Gas Notified Time Potassium 4.7 (3.6-5.2) mmol/L Carbon Dioxide 33 H (22-30) mmol/L Anion Gap 16 (10-20) BUN 66 H (9-20) mg/dL Creatinine 3.8 H (0.8-1.5) mg/dL Est GFR ( Amer) 21 Est GFR (Non-Af Amer) 17 POC Glucose (mg/dL) 279 H (65-110) mg/dL Random Glucose 278 H (75-110) mg/dL Hemoglobin A1c (4.2-6.5) % Lactic Acid (0.7-2.1) mmol/L Calcium 7.8 L (8.6-10.4) mg/dl Phosphorus (2.5-4.5) mg/dL Magnesium (1.6-2.3) mg/dL Total Bilirubin 1.6 H (0.2-1.3) mg/dL AST 29 (17-59) U/L ALT 37 (21-72) U/L Alkaline Phosphatase 127 H (38-126) U/L Ammonia (9-33) umol/L Troponin I (0.00-0.120) ng/mL Total Protein 6.0 L (6.3-8.3) g/dL Albumin 3.0 L (3.5-5.0) g/dL Globulin 3.0 (2.2-3.9) gm/dL Albumin/Globulin Ratio 1.0 (1.0-2.1) Prolactin (3.7-17.9) ng/mL Arterial Blood Potassium (3.6-5.2) mmol/L Urine Color (YELLOW) Urine Clarity (Clear) Urine pH (5.0-8.0) Ur Specific [place] (1.003-1.030) Urine Protein (NEGATIVE) mg/dL Urine Glucose (UA) (Normal) mg/dL Urine Ketones (NEGATIVE) mg/dL Urine Blood (NEGATIVE) Urine Nitrate (NEGATIVE) Urine Bilirubin (NEGATIVE) Urine Urobilinogen (0.2-1.0) mg/dL Ur Leukocyte Esterase (Negative) Mert/uL Urine WBC (Auto) (0-5) /hpf Urine RBC (Auto) (0-3) /hpf Ur Squamous Epith Cells (0-5) /hpf Amorphous Sediment (<OCC) /ul Urine Bacteria (<OCC) Hep Bs Antigen (NEGATIVE) Hep Bs Antibody (NEGATIVE) Hepatitis C Antibody (NEGATIVE) Blood Type Antibody Screen 10/16/17 10/16/17 10/16/17 Range/Units 01:57 00:55 00:53 WBC (4.8-10.8) K/uL RBC (4.40-5.90) Mil/uL Hgb (12.0-18.0) g/dL Hct (35.0-51.0) % MCV (80.0-94.0) fL MCH (27.0-31.0) pg MCHC (33.0-37.0) g/dL RDW (11.5-14.5) % Plt Count (130-400) K/uL MPV (7.2-11.7) fL Neut % (Auto) (50.0-75.0) % Lymph % (Auto) (20.0-40.0) % [place] % (Auto) (0.0-10.0) % Eos % (Auto) (0.0-4.0) % Baso % (Auto) (0.0-2.0) % Neut # (Auto) (1.8-7.0) K/uL Lymph # (Auto) (1.0-4.3) K/uL [place] # (Auto) (0.0-0.8) K/uL Eos # (Auto) (0.0-0.7) K/uL Baso # (Auto) (0.0-0.2) K/uL Neutrophils % (Manual) (50-75) % Band Neutrophils % (0-2) % Lymphocytes % (Manual) (20-40) % Monocytes % (Manual) (0-10) % Eosinophils % (Manual) (0-4) % Nucleated RBC % (0-0) % Platelet Estimate (NORMAL) Large Platelets Polychromasia Hypochromasia (manual) Poikilocytosis (manual Basophilic Stippling Anisocytosis (manual) Microcytosis (manual) Target Cells Ovalocytes PT (9.7-12.2) SECONDS INR APTT (21-34) SECONDS Puncture Site [place] pCO2 64 H (35-45) mm/Hg pO2 98 (80-100) mm/Hg HCO3 25.6 (21-28) mmol/L ABG pH 7.27 L (7.35-7.45) ABG Total CO2 31.4 H (22-28) mmol/L ABG O2 Saturation 98.5 H (95-98) % ABG Base Excess 0.9 (-2.0-3.0) mmol/L Philippe Test Na ABG Potassium 4.0 (3.6-5.2) mmol/L A-a O2 Difference 535.0 mm/Hg Respiratory Index 5.5 Sodium 139.0 (132-148) mmol/l Chloride 102.0 (98-107) mmol/L Glucose 298 H (75-110) mg/dl Lactate 3.4 H (0.7-2.1) mmol/L Vent Mode Prvc Mechanical Rate 24 FiO2 100.0 % Tidal Volume 500 PEEP 5 Blood Gas Comments Crit Value Called To Crit Value Called By Crit Value Read Back Blood Gas Notified Time Potassium (3.6-5.2) mmol/L Carbon Dioxide (22-30) mmol/L Anion Gap (10-20) BUN (9-20) mg/dL Creatinine (0.8-1.5) mg/dL Est GFR ( Amer) Est GFR (Non-Af Amer) POC Glucose (mg/dL) 297 H 128 H (65-110) mg/dL Random Glucose (75-110) mg/dL Hemoglobin A1c (4.2-6.5) % Lactic Acid (0.7-2.1) mmol/L Calcium (8.6-10.4) mg/dl Phosphorus (2.5-4.5) mg/dL Magnesium (1.6-2.3) mg/dL Total Bilirubin (0.2-1.3) mg/dL AST (17-59) U/L ALT (21-72) U/L Alkaline Phosphatase (38-126) U/L Ammonia (9-33) umol/L Troponin I (0.00-0.120) ng/mL Total Protein (6.3-8.3) g/dL Albumin (3.5-5.0) g/dL Globulin (2.2-3.9) gm/dL Albumin/Globulin Ratio (1.0-2.1) Prolactin (3.7-17.9) ng/mL Arterial Blood Potassium 4.0 (3.6-5.2) mmol/L Urine Color (YELLOW) Urine Clarity (Clear) Urine pH (5.0-8.0) Ur Specific [place] (1.003-1.030) Urine Protein (NEGATIVE) mg/dL Urine Glucose (UA) (Normal) mg/dL Urine Ketones (NEGATIVE) mg/dL Urine Blood (NEGATIVE) Urine Nitrate (NEGATIVE) Urine Bilirubin (NEGATIVE) Urine Urobilinogen (0.2-1.0) mg/dL Ur Leukocyte Esterase (Negative) Mert/uL Urine WBC (Auto) (0-5) /hpf Urine RBC (Auto) (0-3) /hpf Ur Squamous Epith Cells (0-5) /hpf Amorphous Sediment (<OCC) /ul Urine Bacteria (<OCC) Hep Bs Antigen (NEGATIVE) Hep Bs Antibody (NEGATIVE) Hepatitis C Antibody (NEGATIVE) Blood Type Antibody Screen 10/16/17 10/16/17 10/16/17 Range/Units 00:08 00:08 00:08 WBC 19.9 H (4.8-10.8) K/uL RBC 3.49 L (4.40-5.90) Mil/uL Hgb 9.7 L (12.0-18.0) g/dL Hct 30.8 L (35.0-51.0) % MCV 88.3 (80.0-94.0) fL MCH 27.7 (27.0-31.0) pg MCHC 31.4 L (33.0-37.0) g/dL RDW 18.0 H (11.5-14.5) % Plt Count 57 L (130-400) K/uL MPV 9.5 (7.2-11.7) fL Neut % (Auto) 85.6 H (50.0-75.0) % Lymph % (Auto) 4.7 L (20.0-40.0) % [place] % (Auto) 9.5 (0.0-10.0) % Eos % (Auto) 0.0 (0.0-4.0) % Baso % (Auto) 0.2 (0.0-2.0) % Neut # (Auto) 17.0 H (1.8-7.0) K/uL Lymph # (Auto) 0.9 L (1.0-4.3) K/uL [place] # (Auto) 1.9 H (0.0-0.8) K/uL Eos # (Auto) 0.0 (0.0-0.7) K/uL Baso # (Auto) 0.0 (0.0-0.2) K/uL Neutrophils % (Manual) 89 H (50-75) % Band Neutrophils % 3 H (0-2) % Lymphocytes % (Manual) 3 L (20-40) % Monocytes % (Manual) 5 (0-10) % Eosinophils % (Manual) (0-4) % Nucleated RBC % 1 H (0-0) % Platelet Estimate Decreased L (NORMAL) Large Platelets Polychromasia Slight Hypochromasia (manual) Poikilocytosis (manual Basophilic Stippling Anisocytosis (manual) Slight Microcytosis (manual) Target Cells Ovalocytes PT 16.2 H (9.7-12.2) SECONDS INR 1.5 APTT 61 H (21-34) SECONDS Puncture Site pCO2 (35-45) mm/Hg pO2 (80-100) mm/Hg HCO3 (21-28) mmol/L ABG pH (7.35-7.45) ABG Total CO2 (22-28) mmol/L ABG O2 Saturation (95-98) % ABG Base Excess (-2.0-3.0) mmol/L Philippe Test ABG Potassium (3.6-5.2) mmol/L A-a O2 Difference mm/Hg Respiratory Index Sodium 140 (132-148) mmol/l Chloride 96 L (98-107) mmol/L Glucose (75-110) mg/dl Lactate (0.7-2.1) mmol/L Vent Mode Mechanical Rate FiO2 % Tidal Volume PEEP Blood Gas Comments Crit Value Called To Crit Value Called By Crit Value Read Back Blood Gas Notified Time Potassium 4.7 (3.6-5.2) mmol/L Carbon Dioxide 32 H (22-30) mmol/L Anion Gap 16 (10-20) BUN 63 H (9-20) mg/dL Creatinine 3.6 H (0.8-1.5) mg/dL Est GFR ( Amer) 22 Est GFR (Non-Af Amer) 18 POC Glucose (mg/dL) (65-110) mg/dL Random Glucose 311 H (75-110) mg/dL Hemoglobin A1c (4.2-6.5) % Lactic Acid (0.7-2.1) mmol/L Calcium 7.7 L (8.6-10.4) mg/dl Phosphorus 6.4 H (2.5-4.5) mg/dL Magnesium 1.8 (1.6-2.3) mg/dL Total Bilirubin 1.5 H (0.2-1.3) mg/dL AST 28 (17-59) U/L ALT 31 (21-72) U/L Alkaline Phosphatase 132 H (38-126) U/L Ammonia (9-33) umol/L Troponin I (0.00-0.120) ng/mL Total Protein 6.0 L (6.3-8.3) g/dL Albumin 3.1 L (3.5-5.0) g/dL Globulin 3.0 (2.2-3.9) gm/dL Albumin/Globulin Ratio 1.0 (1.0-2.1) Prolactin (3.7-17.9) ng/mL Arterial Blood Potassium (3.6-5.2) mmol/L Urine Color (YELLOW) Urine Clarity (Clear) Urine pH (5.0-8.0) Ur Specific [place] (1.003-1.030) Urine Protein (NEGATIVE) mg/dL Urine Glucose (UA) (Normal) mg/dL Urine Ketones (NEGATIVE) mg/dL Urine Blood (NEGATIVE) Urine Nitrate (NEGATIVE) Urine Bilirubin (NEGATIVE) Urine Urobilinogen (0.2-1.0) mg/dL Ur Leukocyte Esterase (Negative) Mert/uL Urine WBC (Auto) (0-5) /hpf Urine RBC (Auto) (0-3) /hpf Ur Squamous Epith Cells (0-5) /hpf Amorphous Sediment (<OCC) /ul Urine Bacteria (<OCC) Hep Bs Antigen (NEGATIVE) Hep Bs Antibody (NEGATIVE) Hepatitis C Antibody (NEGATIVE) Blood Type Antibody Screen 10/16/17 10/15/17 10/15/17 Range/Units 00:01 21:06 17:56 WBC (4.8-10.8) K/uL RBC (4.40-5.90) Mil/uL Hgb (12.0-18.0) g/dL Hct (35.0-51.0) % MCV (80.0-94.0) fL MCH (27.0-31.0) pg MCHC (33.0-37.0) g/dL RDW (11.5-14.5) % Plt Count (130-400) K/uL MPV (7.2-11.7) fL Neut % (Auto) (50.0-75.0) % Lymph % (Auto) (20.0-40.0) % [place] % (Auto) (0.0-10.0) % Eos % (Auto) (0.0-4.0) % Baso % (Auto) (0.0-2.0) % Neut # (Auto) (1.8-7.0) K/uL Lymph # (Auto) (1.0-4.3) K/uL [place] # (Auto) (0.0-0.8) K/uL Eos # (Auto) (0.0-0.7) K/uL Baso # (Auto) (0.0-0.2) K/uL Neutrophils % (Manual) (50-75) % Band Neutrophils % (0-2) % Lymphocytes % (Manual) (20-40) % Monocytes % (Manual) (0-10) % Eosinophils % (Manual) (0-4) % Nucleated RBC % (0-0) % Platelet Estimate (NORMAL) Large Platelets Polychromasia Hypochromasia (manual) Poikilocytosis (manual Basophilic Stippling Anisocytosis (manual) Microcytosis (manual) Target Cells Ovalocytes PT (9.7-12.2) SECONDS INR APTT (21-34) SECONDS Puncture Site [place] pCO2 71 H* (35-45) mm/Hg pO2 103 H (80-100) mm/Hg HCO3 26.3 (21-28) mmol/L ABG pH 7.25 L (7.35-7.45) ABG Total CO2 33.3 H (22-28) mmol/L ABG O2 Saturation 99.0 H (95-98) % ABG Base Excess 1.8 (-2.0-3.0) mmol/L Philippe Test Na ABG Potassium 4.2 (3.6-5.2) mmol/L A-a O2 Difference 521.0 mm/Hg Respiratory Index 5.1 Sodium 140.0 141 (132-148) mmol/l Chloride 103.0 97 L (98-107) mmol/L Glucose 313 H (75-110) mg/dl Lactate 4.8 H* (0.7-2.1) mmol/L Vent Mode Prvc Mechanical Rate 24 FiO2 100.0 % Tidal Volume 500 PEEP 5 Blood Gas Comments Crit Value Called To Dr franco Crit Value Called By Carlos A perez Crit Value Read Back Y Blood Gas Notified Time 2108 Potassium 4.2 (3.6-5.2) mmol/L Carbon Dioxide 34 H (22-30) mmol/L Anion Gap 14 (10-20) BUN 59 H (9-20) mg/dL Creatinine 3.4 H (0.8-1.5) mg/dL Est GFR ( Amer) 24 Est GFR (Non-Af Amer) 19 POC Glucose (mg/dL) 360 H (65-110) mg/dL Random Glucose 265 H (75-110) mg/dL Hemoglobin A1c (4.2-6.5) % Lactic Acid (0.7-2.1) mmol/L Calcium 7.7 L (8.6-10.4) mg/dl Phosphorus 5.1 H (2.5-4.5) mg/dL Magnesium 1.8 (1.6-2.3) mg/dL Total Bilirubin 1.5 H (0.2-1.3) mg/dL AST 29 (17-59) U/L ALT 39 (21-72) U/L Alkaline Phosphatase 158 H (38-126) U/L Ammonia (9-33) umol/L Troponin I 0.3970 H* (0.00-0.120) ng/mL Total Protein 6.2 L (6.3-8.3) g/dL Albumin 3.0 L (3.5-5.0) g/dL Globulin 3.2 (2.2-3.9) gm/dL Albumin/Globulin Ratio 1.0 (1.0-2.1) Prolactin (3.7-17.9) ng/mL Arterial Blood Potassium 4.2 (3.6-5.2) mmol/L Urine Color (YELLOW) Urine Clarity (Clear) Urine pH (5.0-8.0) Ur Specific [place] (1.003-1.030) Urine Protein (NEGATIVE) mg/dL Urine Glucose (UA) (Normal) mg/dL Urine Ketones (NEGATIVE) mg/dL Urine Blood (NEGATIVE) Urine Nitrate (NEGATIVE) Urine Bilirubin (NEGATIVE) Urine Urobilinogen (0.2-1.0) mg/dL Ur Leukocyte Esterase (Negative) Mert/uL Urine WBC (Auto) (0-5) /hpf Urine RBC (Auto) (0-3) /hpf Ur Squamous Epith Cells (0-5) /hpf Amorphous Sediment (<OCC) /ul Urine Bacteria (<OCC) Hep Bs Antigen (NEGATIVE) Hep Bs Antibody (NEGATIVE) Hepatitis C Antibody (NEGATIVE) Blood Type Antibody Screen 10/15/17 10/15/17 10/15/17 Range/Units 17:56 17:49 17:35 WBC 25.4 H D (4.8-10.8) K/uL RBC 3.71 L (4.40-5.90) Mil/uL Hgb 10.2 L (12.0-18.0) g/dL Hct 32.8 L (35.0-51.0) % MCV 88.6 D (80.0-94.0) fL MCH 27.4 (27.0-31.0) pg MCHC 31.0 L (33.0-37.0) g/dL RDW 18.1 H (11.5-14.5) % Plt Count 59 L D (130-400) K/uL MPV 9.1 (7.2-11.7) fL Neut % (Auto) 82.8 H (50.0-75.0) % Lymph % (Auto) 1.6 L (20.0-40.0) % [place] % (Auto) 15.4 H (0.0-10.0) % Eos % (Auto) 0.1 (0.0-4.0) % Baso % (Auto) 0.1 (0.0-2.0) % Neut # (Auto) 21.0 H (1.8-7.0) K/uL Lymph # (Auto) 0.4 L (1.0-4.3) K/uL [place] # (Auto) 3.9 H (0.0-0.8) K/uL Eos # (Auto) 0.0 (0.0-0.7) K/uL Baso # (Auto) 0.0 (0.0-0.2) K/uL Neutrophils % (Manual) 83 H (50-75) % Band Neutrophils % 9 H (0-2) % Lymphocytes % (Manual) 2 L (20-40) % Monocytes % (Manual) 6 (0-10) % Eosinophils % (Manual) (0-4) % Nucleated RBC % 1 H (0-0) % Platelet Estimate Decreased L (NORMAL) Large Platelets Polychromasia Slight Hypochromasia (manual) Slight Poikilocytosis (manual Basophilic Stippling Anisocytosis (manual) Slight Microcytosis (manual) Target Cells Ovalocytes PT (9.7-12.2) SECONDS INR APTT (21-34) SECONDS Puncture Site pCO2 (35-45) mm/Hg pO2 (80-100) mm/Hg HCO3 (21-28) mmol/L ABG pH (7.35-7.45) ABG Total CO2 (22-28) mmol/L ABG O2 Saturation (95-98) % ABG Base Excess (-2.0-3.0) mmol/L Philippe Test ABG Potassium (3.6-5.2) mmol/L A-a O2 Difference mm/Hg Respiratory Index Sodium (132-148) mmol/l Chloride (98-107) mmol/L Glucose (75-110) mg/dl Lactate (0.7-2.1) mmol/L Vent Mode Mechanical Rate FiO2 % Tidal Volume PEEP Blood Gas Comments Crit Value Called To Crit Value Called By Crit Value Read Back Blood Gas Notified Time Potassium (3.6-5.2) mmol/L Carbon Dioxide (22-30) mmol/L Anion Gap (10-20) BUN (9-20) mg/dL Creatinine (0.8-1.5) mg/dL Est GFR ( Amer) Est GFR (Non-Af Amer) POC Glucose (mg/dL) 257 H (65-110) mg/dL Random Glucose (75-110) mg/dL Hemoglobin A1c (4.2-6.5) % Lactic Acid (0.7-2.1) mmol/L Calcium (8.6-10.4) mg/dl Phosphorus (2.5-4.5) mg/dL Magnesium (1.6-2.3) mg/dL Total Bilirubin (0.2-1.3) mg/dL AST (17-59) U/L ALT (21-72) U/L Alkaline Phosphatase (38-126) U/L Ammonia (9-33) umol/L Troponin I (0.00-0.120) ng/mL Total Protein (6.3-8.3) g/dL Albumin (3.5-5.0) g/dL Globulin (2.2-3.9) gm/dL Albumin/Globulin Ratio (1.0-2.1) Prolactin (3.7-17.9) ng/mL Arterial Blood Potassium (3.6-5.2) mmol/L Urine Color Yellow (YELLOW) Urine Clarity Hazy (Clear) Urine pH 5.0 (5.0-8.0) Ur Specific [place] 1.014 (1.003-1.030) Urine Protein 3+ H (NEGATIVE) mg/dL Urine Glucose (UA) 2+ H (Normal) mg/dL Urine Ketones Negative (NEGATIVE) mg/dL Urine Blood 2+ H (NEGATIVE) Urine Nitrate Negative (NEGATIVE) Urine Bilirubin Negative (NEGATIVE) Urine Urobilinogen Normal (0.2-1.0) mg/dL Ur Leukocyte Esterase Neg (Negative) Mert/uL Urine WBC (Auto) 13 H (0-5) /hpf Urine RBC (Auto) 17 H (0-3) /hpf Ur Squamous Epith Cells 1 (0-5) /hpf Amorphous Sediment Rare H (<OCC) /ul Urine Bacteria Rare (<OCC) Hep Bs Antigen (NEGATIVE) Hep Bs Antibody (NEGATIVE) Hepatitis C Antibody (NEGATIVE) Blood Type Antibody Screen 10/15/17 10/15/17 10/15/17 Range/Units 17:13 16:21 16:21 WBC (4.8-10.8) K/uL RBC (4.40-5.90) Mil/uL Hgb (12.0-18.0) g/dL Hct (35.0-51.0) % MCV (80.0-94.0) fL MCH (27.0-31.0) pg MCHC (33.0-37.0) g/dL RDW (11.5-14.5) % Plt Count (130-400) K/uL MPV (7.2-11.7) fL Neut % (Auto) (50.0-75.0) % Lymph % (Auto) (20.0-40.0) % [place] % (Auto) (0.0-10.0) % Eos % (Auto) (0.0-4.0) % Baso % (Auto) (0.0-2.0) % Neut # (Auto) (1.8-7.0) K/uL Lymph # (Auto) (1.0-4.3) K/uL [place] # (Auto) (0.0-0.8) K/uL Eos # (Auto) (0.0-0.7) K/uL Baso # (Auto) (0.0-0.2) K/uL Neutrophils % (Manual) (50-75) % Band Neutrophils % (0-2) % Lymphocytes % (Manual) (20-40) % Monocytes % (Manual) (0-10) % Eosinophils % (Manual) (0-4) % Nucleated RBC % (0-0) % Platelet Estimate (NORMAL) Large Platelets Polychromasia Hypochromasia (manual) Poikilocytosis (manual Basophilic Stippling Anisocytosis (manual) Microcytosis (manual) Target Cells Ovalocytes PT (9.7-12.2) SECONDS INR APTT 60 H (21-34) SECONDS Puncture Site [place] pCO2 74 H* (35-45) mm/Hg pO2 101 H (80-100) mm/Hg HCO3 27.2 (21-28) mmol/L ABG pH 7.25 L (7.35-7.45) ABG Total CO2 34.8 H (22-28) mmol/L ABG O2 Saturation 98.9 H (95-98) % ABG Base Excess 2.9 (-2.0-3.0) mmol/L Philippe Test Na ABG Potassium 3.6 (3.6-5.2) mmol/L A-a O2 Difference 520.0 mm/Hg Respiratory Index 5.1 Sodium 141.0 (132-148) mmol/l Chloride 104.0 (98-107) mmol/L Glucose 248 H (75-110) mg/dl Lactate 2.7 H (0.7-2.1) mmol/L Vent Mode Prvc Mechanical Rate 24 FiO2 100.0 % Tidal Volume 500 PEEP 5 Blood Gas Comments Crit Value Called To Dr franco Crit Value Called By Carlos A perez Crit Value Read Back Y Blood Gas Notified Time 1715 Potassium (3.6-5.2) mmol/L Carbon Dioxide (22-30) mmol/L Anion Gap (10-20) BUN (9-20) mg/dL Creatinine (0.8-1.5) mg/dL Est GFR ( Amer) Est GFR (Non-Af Amer) POC Glucose (mg/dL) (65-110) mg/dL Random Glucose (75-110) mg/dL Hemoglobin A1c (4.2-6.5) % Lactic Acid 2.5 H (0.7-2.1) mmol/L Calcium (8.6-10.4) mg/dl Phosphorus (2.5-4.5) mg/dL Magnesium (1.6-2.3) mg/dL Total Bilirubin (0.2-1.3) mg/dL AST (17-59) U/L ALT (21-72) U/L Alkaline Phosphatase (38-126) U/L Ammonia (9-33) umol/L Troponin I (0.00-0.120) ng/mL Total Protein (6.3-8.3) g/dL Albumin (3.5-5.0) g/dL Globulin (2.2-3.9) gm/dL Albumin/Globulin Ratio (1.0-2.1) Prolactin (3.7-17.9) ng/mL Arterial Blood Potassium 3.6 (3.6-5.2) mmol/L Urine Color (YELLOW) Urine Clarity (Clear) Urine pH (5.0-8.0) Ur Specific [place] (1.003-1.030) Urine Protein (NEGATIVE) mg/dL Urine Glucose (UA) (Normal) mg/dL Urine Ketones (NEGATIVE) mg/dL Urine Blood (NEGATIVE) Urine Nitrate (NEGATIVE) Urine Bilirubin (NEGATIVE) Urine Urobilinogen (0.2-1.0) mg/dL Ur Leukocyte Esterase (Negative) Mert/uL Urine WBC (Auto) (0-5) /hpf Urine RBC (Auto) (0-3) /hpf Ur Squamous Epith Cells (0-5) /hpf Amorphous Sediment (<OCC) /ul Urine Bacteria (<OCC) Hep Bs Antigen (NEGATIVE) Hep Bs Antibody (NEGATIVE) Hepatitis C Antibody (NEGATIVE) Blood Type Antibody Screen 10/15/17 10/15/17 10/15/17 Range/Units 14:54 14:36 14:36 WBC (4.8-10.8) K/uL RBC (4.40-5.90) Mil/uL Hgb (12.0-18.0) g/dL Hct (35.0-51.0) % MCV (80.0-94.0) fL MCH (27.0-31.0) pg MCHC (33.0-37.0) g/dL RDW (11.5-14.5) % Plt Count (130-400) K/uL MPV (7.2-11.7) fL Neut % (Auto) (50.0-75.0) % Lymph % (Auto) (20.0-40.0) % [place] % (Auto) (0.0-10.0) % Eos % (Auto) (0.0-4.0) % Baso % (Auto) (0.0-2.0) % Neut # (Auto) (1.8-7.0) K/uL Lymph # (Auto) (1.0-4.3) K/uL [place] # (Auto) (0.0-0.8) K/uL Eos # (Auto) (0.0-0.7) K/uL Baso # (Auto) (0.0-0.2) K/uL Neutrophils % (Manual) (50-75) % Band Neutrophils % (0-2) % Lymphocytes % (Manual) (20-40) % Monocytes % (Manual) (0-10) % Eosinophils % (Manual) (0-4) % Nucleated RBC % (0-0) % Platelet Estimate (NORMAL) Large Platelets Polychromasia Hypochromasia (manual) Poikilocytosis (manual Basophilic Stippling Anisocytosis (manual) Microcytosis (manual) Target Cells Ovalocytes PT (9.7-12.2) SECONDS INR APTT (21-34) SECONDS Puncture Site pCO2 (35-45) mm/Hg pO2 (80-100) mm/Hg HCO3 (21-28) mmol/L ABG pH (7.35-7.45) ABG Total CO2 (22-28) mmol/L ABG O2 Saturation (95-98) % ABG Base Excess (-2.0-3.0) mmol/L Philippe Test ABG Potassium (3.6-5.2) mmol/L A-a O2 Difference mm/Hg Respiratory Index Sodium (132-148) mmol/l Chloride (98-107) mmol/L Glucose (75-110) mg/dl Lactate (0.7-2.1) mmol/L Vent Mode Mechanical Rate FiO2 % Tidal Volume PEEP Blood Gas Comments Crit Value Called To Crit Value Called By Crit Value Read Back Blood Gas Notified Time Potassium 4.4 (3.6-5.2) mmol/L Carbon Dioxide (22-30) mmol/L Anion Gap (10-20) BUN (9-20) mg/dL Creatinine (0.8-1.5) mg/dL Est GFR ( Amer) Est GFR (Non-Af Amer) POC Glucose (mg/dL) (65-110) mg/dL Random Glucose (75-110) mg/dL Hemoglobin A1c (4.2-6.5) % Lactic Acid (0.7-2.1) mmol/L Calcium (8.6-10.4) mg/dl Phosphorus (2.5-4.5) mg/dL Magnesium (1.6-2.3) mg/dL Total Bilirubin (0.2-1.3) mg/dL AST (17-59) U/L ALT (21-72) U/L Alkaline Phosphatase (38-126) U/L Ammonia (9-33) umol/L Troponin I (0.00-0.120) ng/mL Total Protein (6.3-8.3) g/dL Albumin (3.5-5.0) g/dL Globulin (2.2-3.9) gm/dL Albumin/Globulin Ratio (1.0-2.1) Prolactin (3.7-17.9) ng/mL Arterial Blood Potassium (3.6-5.2) mmol/L Urine Color (YELLOW) Urine Clarity (Clear) Urine pH (5.0-8.0) Ur Specific [place] (1.003-1.030) Urine Protein (NEGATIVE) mg/dL Urine Glucose (UA) (Normal) mg/dL Urine Ketones (NEGATIVE) mg/dL Urine Blood (NEGATIVE) Urine Nitrate (NEGATIVE) Urine Bilirubin (NEGATIVE) Urine Urobilinogen (0.2-1.0) mg/dL Ur Leukocyte Esterase (Negative) Mert/uL Urine WBC (Auto) (0-5) /hpf Urine RBC (Auto) (0-3) /hpf Ur Squamous Epith Cells (0-5) /hpf Amorphous Sediment (<OCC) /ul Urine Bacteria (<OCC) Hep Bs Antigen Negative (NEGATIVE) Hep Bs Antibody Positive (NEGATIVE) Hepatitis C Antibody Negative (NEGATIVE) Blood Type Antibody Screen 10/15/17 10/15/17 10/15/17 Range/Units 13:35 11:57 11:41 WBC (4.8-10.8) K/uL RBC (4.40-5.90) Mil/uL Hgb (12.0-18.0) g/dL Hct (35.0-51.0) % MCV (80.0-94.0) fL MCH (27.0-31.0) pg MCHC (33.0-37.0) g/dL RDW (11.5-14.5) % Plt Count (130-400) K/uL MPV (7.2-11.7) fL Neut % (Auto) (50.0-75.0) % Lymph % (Auto) (20.0-40.0) % [place] % (Auto) (0.0-10.0) % Eos % (Auto) (0.0-4.0) % Baso % (Auto) (0.0-2.0) % Neut # (Auto) (1.8-7.0) K/uL Lymph # (Auto) (1.0-4.3) K/uL [place] # (Auto) (0.0-0.8) K/uL Eos # (Auto) (0.0-0.7) K/uL Baso # (Auto) (0.0-0.2) K/uL Neutrophils % (Manual) (50-75) % Band Neutrophils % (0-2) % Lymphocytes % (Manual) (20-40) % Monocytes % (Manual) (0-10) % Eosinophils % (Manual) (0-4) % Nucleated RBC % (0-0) % Platelet Estimate (NORMAL) Large Platelets Polychromasia Hypochromasia (manual) Poikilocytosis (manual Basophilic Stippling Anisocytosis (manual) Microcytosis (manual) Target Cells Ovalocytes PT (9.7-12.2) SECONDS INR APTT (21-34) SECONDS Puncture Site [place] pCO2 87 H* 130 H* (35-45) mm/Hg pO2 69 L 45 L (80-100) mm/Hg HCO3 25.8 19.6 L (21-28) mmol/L ABG pH 7.18 L* 6.97 L* (7.35-7.45) ABG Total CO2 35.2 H 33.9 H (22-28) mmol/L ABG O2 Saturation 95.3 74.4 L (95-98) % ABG Base Excess 1.4 -5.3 L (-2.0-3.0) mmol/L Philippe Test Na Na ABG Potassium 4.2 4.0 (3.6-5.2) mmol/L A-a O2 Difference 535.0 506.0 mm/Hg Respiratory Index 7.8 11.2 Sodium 139.0 139.0 (132-148) mmol/l Chloride 99.0 96.0 L (98-107) mmol/L Glucose 351 H 402 H* D (75-110) mg/dl Lactate 3.2 H 8.8 H* (0.7-2.1) mmol/L Vent Mode Mechanical Rate 24 FiO2 100.0 100.0 % Tidal Volume 500 PEEP 5 Blood Gas Comments During code Crit Value Called To Dr jay franco Crit Value Called By Son galeano electrotherapist Son galeano Crit Value Read Back Y Y Blood Gas Notified Time 1340 1205 Potassium (3.6-5.2) mmol/L Carbon Dioxide (22-30) mmol/L Anion Gap (10-20) BUN (9-20) mg/dL Creatinine (0.8-1.5) mg/dL Est GFR ( Amer) Est GFR (Non-Af Amer) POC Glucose (mg/dL) 228 H (65-110) mg/dL Random Glucose (75-110) mg/dL Hemoglobin A1c (4.2-6.5) % Lactic Acid (0.7-2.1) mmol/L Calcium (8.6-10.4) mg/dl Phosphorus (2.5-4.5) mg/dL Magnesium (1.6-2.3) mg/dL Total Bilirubin (0.2-1.3) mg/dL AST (17-59) U/L ALT (21-72) U/L Alkaline Phosphatase (38-126) U/L Ammonia (9-33) umol/L Troponin I (0.00-0.120) ng/mL Total Protein (6.3-8.3) g/dL Albumin (3.5-5.0) g/dL Globulin (2.2-3.9) gm/dL Albumin/Globulin Ratio (1.0-2.1) Prolactin (3.7-17.9) ng/mL Arterial Blood Potassium 4.2 4.0 (3.6-5.2) mmol/L Urine Color (YELLOW) Urine Clarity (Clear) Urine pH (5.0-8.0) Ur Specific [place] (1.003-1.030) Urine Protein (NEGATIVE) mg/dL Urine Glucose (UA) (Normal) mg/dL Urine Ketones (NEGATIVE) mg/dL Urine Blood (NEGATIVE) Urine Nitrate (NEGATIVE) Urine Bilirubin (NEGATIVE) Urine Urobilinogen (0.2-1.0) mg/dL Ur Leukocyte Esterase (Negative) Mert/uL Urine WBC (Auto) (0-5) /hpf Urine RBC (Auto) (0-3) /hpf Ur Squamous Epith Cells (0-5) /hpf Amorphous Sediment (<OCC) /ul Urine Bacteria (<OCC) Hep Bs Antigen (NEGATIVE) Hep Bs Antibody (NEGATIVE) Hepatitis C Antibody (NEGATIVE) Blood Type Antibody Screen 10/15/17 Range/Units 11:19 WBC (4.8-10.8) K/uL RBC (4.40-5.90) Mil/uL Hgb (12.0-18.0) g/dL Hct (35.0-51.0) % MCV (80.0-94.0) fL MCH (27.0-31.0) pg MCHC (33.0-37.0) g/dL RDW (11.5-14.5) % Plt Count (130-400) K/uL MPV (7.2-11.7) fL Neut % (Auto) (50.0-75.0) % Lymph % (Auto) (20.0-40.0) % [place] % (Auto) (0.0-10.0) % Eos % (Auto) (0.0-4.0) % Baso % (Auto) (0.0-2.0) % Neut # (Auto) (1.8-7.0) K/uL Lymph # (Auto) (1.0-4.3) K/uL [place] # (Auto) (0.0-0.8) K/uL Eos # (Auto) (0.0-0.7) K/uL Baso # (Auto) (0.0-0.2) K/uL Neutrophils % (Manual) (50-75) % Band Neutrophils % (0-2) % Lymphocytes % (Manual) (20-40) % Monocytes % (Manual) (0-10) % Eosinophils % (Manual) (0-4) % Nucleated RBC % (0-0) % Platelet Estimate (NORMAL) Large Platelets Polychromasia Hypochromasia (manual) Poikilocytosis (manual Basophilic Stippling Anisocytosis (manual) Microcytosis (manual) Target Cells Ovalocytes PT (9.7-12.2) SECONDS INR APTT (21-34) SECONDS Puncture Site pCO2 (35-45) mm/Hg pO2 (80-100) mm/Hg HCO3 (21-28) mmol/L ABG pH (7.35-7.45) ABG Total CO2 (22-28) mmol/L ABG O2 Saturation (95-98) % ABG Base Excess (-2.0-3.0) mmol/L Philippe Test ABG Potassium (3.6-5.2) mmol/L A-a O2 Difference mm/Hg Respiratory Index Sodium (132-148) mmol/l Chloride (98-107) mmol/L Glucose (75-110) mg/dl Lactate (0.7-2.1) mmol/L Vent Mode Mechanical Rate FiO2 % Tidal Volume PEEP Blood Gas Comments Crit Value Called To Crit Value Called By Crit Value Read Back Blood Gas Notified Time Potassium (3.6-5.2) mmol/L Carbon Dioxide (22-30) mmol/L Anion Gap (10-20) BUN (9-20) mg/dL Creatinine (0.8-1.5) mg/dL Est GFR ( Amer) Est GFR (Non-Af Amer) POC Glucose (mg/dL) 254 H (65-110) mg/dL Random Glucose (75-110) mg/dL Hemoglobin A1c (4.2-6.5) % Lactic Acid (0.7-2.1) mmol/L Calcium (8.6-10.4) mg/dl Phosphorus (2.5-4.5) mg/dL Magnesium (1.6-2.3) mg/dL Total Bilirubin (0.2-1.3) mg/dL AST (17-59) U/L ALT (21-72) U/L Alkaline Phosphatase (38-126) U/L Ammonia (9-33) umol/L Troponin I (0.00-0.120) ng/mL Total Protein (6.3-8.3) g/dL Albumin (3.5-5.0) g/dL Globulin (2.2-3.9) gm/dL Albumin/Globulin Ratio (1.0-2.1) Prolactin (3.7-17.9) ng/mL Arterial Blood Potassium (3.6-5.2) mmol/L Urine Color (YELLOW) Urine Clarity (Clear) Urine pH (5.0-8.0) Ur Specific [place] (1.003-1.030) Urine Protein (NEGATIVE) mg/dL Urine Glucose (UA) (Normal) mg/dL Urine Ketones (NEGATIVE) mg/dL Urine Blood (NEGATIVE) Urine Nitrate (NEGATIVE) Urine Bilirubin (NEGATIVE) Urine Urobilinogen (0.2-1.0) mg/dL Ur Leukocyte Esterase (Negative) Mert/uL Urine WBC (Auto) (0-5) /hpf Urine RBC (Auto) (0-3) /hpf Ur Squamous Epith Cells (0-5) /hpf Amorphous Sediment (<OCC) /ul Urine Bacteria (<OCC) Hep Bs Antigen (NEGATIVE) Hep Bs Antibody (NEGATIVE) Hepatitis C Antibody (NEGATIVE) Blood Type Antibody Screen Laboratory Results - last 24 hr 10/15/17 10/15/17 10/15/17 11:19 11:41 11:57 WBC RBC Hgb Hct MCV MCH MCHC RDW Plt Count MPV Neut % (Auto) Lymph % (Auto) [place] % (Auto) Eos % (Auto) Baso % (Auto) Neut # (Auto) Lymph # (Auto) [place] # (Auto) Eos # (Auto) Baso # (Auto) Neutrophils % (Manual) Band Neutrophils % Lymphocytes % (Manual) Monocytes % (Manual) Eosinophils % (Manual) Nucleated RBC % Platelet Estimate Large Platelets Polychromasia Hypochromasia (manual) Poikilocytosis (manual Basophilic Stippling Anisocytosis (manual) Microcytosis (manual) Target Cells Ovalocytes PT INR APTT Puncture Site Rf pCO2 130 H* pO2 45 L HCO3 19.6 L ABG pH 6.97 L* ABG Total CO2 33.9 H ABG O2 Saturation 74.4 L ABG Base Excess -5.3 L Philippe Test Na ABG Potassium 4.0 A-a O2 Difference 506.0 Respiratory Index 11.2 Sodium 139.0 Chloride 96.0 L Glucose 402 H* D Lactate 8.8 H* Vent Mode Mechanical Rate FiO2 100.0 Tidal Volume PEEP Blood Gas Comments During code Crit Value Called To Dr franco Crit Value Called By Son galeano Crit Value Read Back Y Blood Gas Notified Time 1205 Potassium Carbon Dioxide Anion Gap BUN Creatinine Est GFR ( Amer) Est GFR (Non-Af Amer) POC Glucose (mg/dL) 254 H 228 H Random Glucose Hemoglobin A1c Lactic Acid Calcium Phosphorus Magnesium Total Bilirubin AST ALT Alkaline Phosphatase Ammonia Troponin I Total Protein Albumin Globulin Albumin/Globulin Ratio Prolactin Arterial Blood Potassium 4.0 Urine Color Urine Clarity Urine pH Ur Specific [place] Urine Protein Urine Glucose (UA) Urine Ketones Urine Blood Urine Nitrate Urine Bilirubin Urine Urobilinogen Ur Leukocyte Esterase Urine WBC (Auto) Urine RBC (Auto) Ur Squamous Epith Cells Amorphous Sediment Urine Bacteria Hep Bs Antigen Hep Bs Antibody Hepatitis C Antibody Blood Type Antibody Screen 10/15/17 10/15/17 10/15/17 13:35 14:36 14:36 WBC RBC Hgb Hct MCV MCH MCHC RDW Plt Count MPV Neut % (Auto) Lymph % (Auto) [place] % (Auto) Eos % (Auto) Baso % (Auto) Neut # (Auto) Lymph # (Auto) [place] # (Auto) Eos # (Auto) Baso # (Auto) Neutrophils % (Manual) Band Neutrophils % Lymphocytes % (Manual) Monocytes % (Manual) Eosinophils % (Manual) Nucleated RBC % Platelet Estimate Large Platelets Polychromasia Hypochromasia (manual) Poikilocytosis (manual Basophilic Stippling Anisocytosis (manual) Microcytosis (manual) Target Cells Ovalocytes PT INR APTT Puncture Site Lf pCO2 87 H* pO2 69 L HCO3 25.8 ABG pH 7.18 L* ABG Total CO2 35.2 H ABG O2 Saturation 95.3 ABG Base Excess 1.4 Philippe Test Na ABG Potassium 4.2 A-a O2 Difference 535.0 Respiratory Index 7.8 Sodium 139.0 Chloride 99.0 Glucose 351 H Lactate 3.2 H Vent Mode Mechanical Rate 24 FiO2 100.0 Tidal Volume 500 PEEP 5 Blood Gas Comments Crit Value Called To Dr jay franco Crit Value Called By Son galeano crt Crit Value Read Back Y Blood Gas Notified Time 1340 Potassium Carbon Dioxide Anion Gap BUN Creatinine Est GFR ( Amer) Est GFR (Non-Af Amer) POC Glucose (mg/dL) Random Glucose Hemoglobin A1c Lactic Acid Calcium Phosphorus Magnesium Total Bilirubin AST ALT Alkaline Phosphatase Ammonia Troponin I Total Protein Albumin Globulin Albumin/Globulin Ratio Prolactin Arterial Blood Potassium 4.2 Urine Color Urine Clarity Urine pH Ur Specific [place] Urine Protein Urine Glucose (UA) Urine Ketones Urine Blood Urine Nitrate Urine Bilirubin Urine Urobilinogen Ur Leukocyte Esterase Urine WBC (Auto) Urine RBC (Auto) Ur Squamous Epith Cells Amorphous Sediment Urine Bacteria Hep Bs Antigen Negative Hep Bs Antibody Positive Hepatitis C Antibody Negative Blood Type Antibody Screen 10/15/17 10/15/17 10/15/17 14:54 16:21 16:21 WBC RBC Hgb Hct MCV MCH MCHC RDW Plt Count MPV Neut % (Auto) Lymph % (Auto) [place] % (Auto) Eos % (Auto) Baso % (Auto) Neut # (Auto) Lymph # (Auto) [place] # (Auto) Eos # (Auto) Baso # (Auto) Neutrophils % (Manual) Band Neutrophils % Lymphocytes % (Manual) Monocytes % (Manual) Eosinophils % (Manual) Nucleated RBC % Platelet Estimate Large Platelets Polychromasia Hypochromasia (manual) Poikilocytosis (manual Basophilic Stippling Anisocytosis (manual) Microcytosis (manual) Target Cells Ovalocytes PT INR APTT 60 H Puncture Site pCO2 pO2 HCO3 ABG pH ABG Total CO2 ABG O2 Saturation ABG Base Excess Philippe Test ABG Potassium A-a O2 Difference Respiratory Index Sodium Chloride Glucose Lactate Vent Mode Mechanical Rate FiO2 Tidal Volume PEEP Blood Gas Comments Crit Value Called To Crit Value Called By Crit Value Read Back Blood Gas Notified Time Potassium 4.4 Carbon Dioxide Anion Gap BUN Creatinine Est GFR ( Amer) Est GFR (Non-Af Amer) POC Glucose (mg/dL) Random Glucose Hemoglobin A1c Lactic Acid 2.5 H Calcium Phosphorus Magnesium Total Bilirubin AST ALT Alkaline Phosphatase Ammonia Troponin I Total Protein Albumin Globulin Albumin/Globulin Ratio Prolactin Arterial Blood Potassium Urine Color Urine Clarity Urine pH Ur Specific [place] Urine Protein Urine Glucose (UA) Urine Ketones Urine Blood Urine Nitrate Urine Bilirubin Urine Urobilinogen Ur Leukocyte Esterase Urine WBC (Auto) Urine RBC (Auto) Ur Squamous Epith Cells Amorphous Sediment Urine Bacteria Hep Bs Antigen Hep Bs Antibody Hepatitis C Antibody Blood Type Antibody Screen 10/15/17 10/15/17 10/15/17 17:13 17:35 17:49 WBC RBC Hgb Hct MCV MCH MCHC RDW Plt Count MPV Neut % (Auto) Lymph % (Auto) [place] % (Auto) Eos % (Auto) Baso % (Auto) Neut # (Auto) Lymph # (Auto) [place] # (Auto) Eos # (Auto) Baso # (Auto) Neutrophils % (Manual) Band Neutrophils % Lymphocytes % (Manual) Monocytes % (Manual) Eosinophils % (Manual) Nucleated RBC % Platelet Estimate Large Platelets Polychromasia Hypochromasia (manual) Poikilocytosis (manual Basophilic Stippling Anisocytosis (manual) Microcytosis (manual) Target Cells Ovalocytes PT INR APTT Puncture Site [place] pCO2 74 H* pO2 101 H HCO3 27.2 ABG pH 7.25 L ABG Total CO2 34.8 H ABG O2 Saturation 98.9 H ABG Base Excess 2.9 Philippe Test Na ABG Potassium 3.6 A-a O2 Difference 520.0 Respiratory Index 5.1 Sodium 141.0 Chloride 104.0 Glucose 248 H Lactate 2.7 H Vent Mode Prvc Mechanical Rate 24 FiO2 100.0 Tidal Volume 500 PEEP 5 Blood Gas Comments Crit Value Called To Dr franco Crit Value Called By Carlos A perez Crit Value Read Back Y Blood Gas Notified Time 1715 Potassium Carbon Dioxide Anion Gap BUN Creatinine Est GFR ( Amer) Est GFR (Non-Af Amer) POC Glucose (mg/dL) 257 H Random Glucose Hemoglobin A1c Lactic Acid Calcium Phosphorus Magnesium Total Bilirubin AST ALT Alkaline Phosphatase Ammonia Troponin I Total Protein Albumin Globulin Albumin/Globulin Ratio Prolactin Arterial Blood Potassium 3.6 Urine Color Yellow Urine Clarity Hazy Urine pH 5.0 Ur Specific [place] 1.014 Urine Protein 3+ H Urine Glucose (UA) 2+ H Urine Ketones Negative Urine Blood 2+ H Urine Nitrate Negative Urine Bilirubin Negative Urine Urobilinogen Normal Ur Leukocyte Esterase Neg Urine WBC (Auto) 13 H Urine RBC (Auto) 17 H Ur Squamous Epith Cells 1 Amorphous Sediment Rare H Urine Bacteria Rare Hep Bs Antigen Hep Bs Antibody Hepatitis C Antibody Blood Type Antibody Screen 10/15/17 10/15/17 10/15/17 17:56 17:56 21:06 WBC 25.4 H D RBC 3.71 L Hgb 10.2 L Hct 32.8 L MCV 88.6 D MCH 27.4 MCHC 31.0 L RDW 18.1 H Plt Count 59 L D MPV 9.1 Neut % (Auto) 82.8 H Lymph % (Auto) 1.6 L [place] % (Auto) 15.4 H Eos % (Auto) 0.1 Baso % (Auto) 0.1 Neut # (Auto) 21.0 H Lymph # (Auto) 0.4 L [place] # (Auto) 3.9 H Eos # (Auto) 0.0 Baso # (Auto) 0.0 Neutrophils % (Manual) 83 H Band Neutrophils % 9 H Lymphocytes % (Manual) 2 L Monocytes % (Manual) 6 Eosinophils % (Manual) Nucleated RBC % 1 H Platelet Estimate Decreased L Large Platelets Polychromasia Slight Hypochromasia (manual) Slight Poikilocytosis (manual Basophilic Stippling Anisocytosis (manual) Slight Microcytosis (manual) Target Cells Ovalocytes PT INR APTT Puncture Site [place] pCO2 71 H* pO2 103 H HCO3 26.3 ABG pH 7.25 L ABG Total CO2 33.3 H ABG O2 Saturation 99.0 H ABG Base Excess 1.8 Philippe Test Na ABG Potassium 4.2 A-a O2 Difference 521.0 Respiratory Index 5.1 Sodium 141 140.0 Chloride 97 L 103.0 Glucose 313 H Lactate 4.8 H* Vent Mode Prvc Mechanical Rate 24 FiO2 100.0 Tidal Volume 500 PEEP 5 Blood Gas Comments Crit Value Called To Dr franco Crit Value Called By Carlos A perez Crit Value Read Back Y Blood Gas Notified Time 2108 Potassium 4.2 Carbon Dioxide 34 H Anion Gap 14 BUN 59 H Creatinine 3.4 H Est GFR ( Amer) 24 Est GFR (Non-Af Amer) 19 POC Glucose (mg/dL) Random Glucose 265 H Hemoglobin A1c Lactic Acid Calcium 7.7 L Phosphorus 5.1 H Magnesium 1.8 Total Bilirubin 1.5 H AST 29 ALT 39 Alkaline Phosphatase 158 H Ammonia Troponin I 0.3970 H* Total Protein 6.2 L Albumin 3.0 L Globulin 3.2 Albumin/Globulin Ratio 1.0 Prolactin Arterial Blood Potassium 4.2 Urine Color Urine Clarity Urine pH Ur Specific [place] Urine Protein Urine Glucose (UA) Urine Ketones Urine Blood Urine Nitrate Urine Bilirubin Urine Urobilinogen Ur Leukocyte Esterase Urine WBC (Auto) Urine RBC (Auto) Ur Squamous Epith Cells Amorphous Sediment Urine Bacteria Hep Bs Antigen Hep Bs Antibody Hepatitis C Antibody Blood Type Antibody Screen 10/16/17 10/16/17 10/16/17 00:01 00:08 00:08 WBC 19.9 H RBC 3.49 L Hgb 9.7 L Hct 30.8 L MCV 88.3 MCH 27.7 MCHC 31.4 L RDW 18.0 H Plt Count 57 L MPV 9.5 Neut % (Auto) 85.6 H Lymph % (Auto) 4.7 L [place] % (Auto) 9.5 Eos % (Auto) 0.0 Baso % (Auto) 0.2 Neut # (Auto) 17.0 H Lymph # (Auto) 0.9 L [place] # (Auto) 1.9 H Eos # (Auto) 0.0 Baso # (Auto) 0.0 Neutrophils % (Manual) 89 H Band Neutrophils % 3 H Lymphocytes % (Manual) 3 L Monocytes % (Manual) 5 Eosinophils % (Manual) Nucleated RBC % 1 H Platelet Estimate Decreased L Large Platelets Polychromasia Slight Hypochromasia (manual) Poikilocytosis (manual Basophilic Stippling Anisocytosis (manual) Slight Microcytosis (manual) Target Cells Ovalocytes PT INR APTT Puncture Site pCO2 pO2 HCO3 ABG pH ABG Total CO2 ABG O2 Saturation ABG Base Excess Philippe Test ABG Potassium A-a O2 Difference Respiratory Index Sodium 140 Chloride 96 L Glucose Lactate Vent Mode Mechanical Rate FiO2 Tidal Volume PEEP Blood Gas Comments Crit Value Called To Crit Value Called By Crit Value Read Back Blood Gas Notified Time Potassium 4.7 Carbon Dioxide 32 H Anion Gap 16 BUN 63 H Creatinine 3.6 H Est GFR ( Amer) 22 Est GFR (Non-Af Amer) 18 POC Glucose (mg/dL) 360 H Random Glucose 311 H Hemoglobin A1c Lactic Acid Calcium 7.7 L Phosphorus 6.4 H Magnesium 1.8 Total Bilirubin 1.5 H AST 28 ALT 31 Alkaline Phosphatase 132 H Ammonia Troponin I Total Protein 6.0 L Albumin 3.1 L Globulin 3.0 Albumin/Globulin Ratio 1.0 Prolactin Arterial Blood Potassium Urine Color Urine Clarity Urine pH Ur Specific [place] Urine Protein Urine Glucose (UA) Urine Ketones Urine Blood Urine Nitrate Urine Bilirubin Urine Urobilinogen Ur Leukocyte Esterase Urine WBC (Auto) Urine RBC (Auto) Ur Squamous Epith Cells Amorphous Sediment Urine Bacteria Hep Bs Antigen Hep Bs Antibody Hepatitis C Antibody Blood Type Antibody Screen 10/16/17 10/16/17 10/16/17 00:08 00:53 00:55 WBC RBC Hgb Hct MCV MCH MCHC RDW Plt Count MPV Neut % (Auto) Lymph % (Auto) [place] % (Auto) Eos % (Auto) Baso % (Auto) Neut # (Auto) Lymph # (Auto) [place] # (Auto) Eos # (Auto) Baso # (Auto) Neutrophils % (Manual) Band Neutrophils % Lymphocytes % (Manual) Monocytes % (Manual) Eosinophils % (Manual) Nucleated RBC % Platelet Estimate Large Platelets Polychromasia Hypochromasia (manual) Poikilocytosis (manual Basophilic Stippling Anisocytosis (manual) Microcytosis (manual) Target Cells Ovalocytes PT 16.2 H INR 1.5 APTT 61 H Puncture Site [place] pCO2 64 H pO2 98 HCO3 25.6 ABG pH 7.27 L ABG Total CO2 31.4 H ABG O2 Saturation 98.5 H ABG Base Excess 0.9 Philippe Test Na ABG Potassium 4.0 A-a O2 Difference 535.0 Respiratory Index 5.5 Sodium 139.0 Chloride 102.0 Glucose 298 H Lactate 3.4 H Vent Mode Prvc Mechanical Rate 24 FiO2 100.0 Tidal Volume 500 PEEP 5 Blood Gas Comments Crit Value Called To Crit Value Called By Crit Value Read Back Blood Gas Notified Time Potassium Carbon Dioxide Anion Gap BUN Creatinine Est GFR ( Amer) Est GFR (Non-Af Amer) POC Glucose (mg/dL) 128 H Random Glucose Hemoglobin A1c Lactic Acid Calcium Phosphorus Magnesium Total Bilirubin AST ALT Alkaline Phosphatase Ammonia Troponin I Total Protein Albumin Globulin Albumin/Globulin Ratio Prolactin Arterial Blood Potassium 4.0 Urine Color Urine Clarity Urine pH Ur Specific [place] Urine Protein Urine Glucose (UA) Urine Ketones Urine Blood Urine Nitrate Urine Bilirubin Urine Urobilinogen Ur Leukocyte Esterase Urine WBC (Auto) Urine RBC (Auto) Ur Squamous Epith Cells Amorphous Sediment Urine Bacteria Hep Bs Antigen Hep Bs Antibody Hepatitis C Antibody Blood Type Antibody Screen 10/16/17 10/16/17 10/16/17 01:57 03:37 03:46 WBC RBC Hgb Hct MCV MCH MCHC RDW Plt Count MPV Neut % (Auto) Lymph % (Auto) [place] % (Auto) Eos % (Auto) Baso % (Auto) Neut # (Auto) Lymph # (Auto) [place] # (Auto) Eos # (Auto) Baso # (Auto) Neutrophils % (Manual) Band Neutrophils % Lymphocytes % (Manual) Monocytes % (Manual) Eosinophils % (Manual) Nucleated RBC % Platelet Estimate Large Platelets Polychromasia Hypochromasia (manual) Poikilocytosis (manual Basophilic Stippling Anisocytosis (manual) Microcytosis (manual) Target Cells Ovalocytes PT INR APTT Puncture Site pCO2 pO2 HCO3 ABG pH ABG Total CO2 ABG O2 Saturation ABG Base Excess Philippe Test ABG Potassium A-a O2 Difference Respiratory Index Sodium 140 Chloride 95 L Glucose Lactate Vent Mode Mechanical Rate FiO2 Tidal Volume PEEP Blood Gas Comments Crit Value Called To Crit Value Called By Crit Value Read Back Blood Gas Notified Time Potassium 4.7 Carbon Dioxide 33 H Anion Gap 16 BUN 66 H Creatinine 3.8 H Est GFR ( Amer) 21 Est GFR (Non-Af Amer) 17 POC Glucose (mg/dL) 297 H 279 H Random Glucose 278 H Hemoglobin A1c Lactic Acid Calcium 7.8 L Phosphorus Magnesium Total Bilirubin 1.6 H AST 29 ALT 37 Alkaline Phosphatase 127 H Ammonia Troponin I Total Protein 6.0 L Albumin 3.0 L Globulin 3.0 Albumin/Globulin Ratio 1.0 Prolactin Arterial Blood Potassium Urine Color Urine Clarity Urine pH Ur Specific [place] Urine Protein Urine Glucose (UA) Urine Ketones Urine Blood Urine Nitrate Urine Bilirubin Urine Urobilinogen Ur Leukocyte Esterase Urine WBC (Auto) Urine RBC (Auto) Ur Squamous Epith Cells Amorphous Sediment Urine Bacteria Hep Bs Antigen Hep Bs Antibody Hepatitis C Antibody Blood Type Antibody Screen 10/16/17 10/16/17 10/16/17 03:46 03:46 03:46 WBC 18.1 H RBC 3.53 L Hgb 9.8 L Hct 31.1 L MCV 88.1 MCH 27.7 MCHC 31.4 L RDW 18.2 H Plt Count 61 L MPV 10.4 Neut % (Auto) 83.1 H Lymph % (Auto) 6.0 L [place] % (Auto) 10.2 H Eos % (Auto) 0.1 Baso % (Auto) 0.6 Neut # (Auto) 15.1 H Lymph # (Auto) 1.1 [place] # (Auto) 1.8 H Eos # (Auto) 0.0 Baso # (Auto) 0.1 Neutrophils % (Manual) Band Neutrophils % Lymphocytes % (Manual) Monocytes % (Manual) Eosinophils % (Manual) Nucleated RBC % Platelet Estimate Large Platelets Polychromasia Hypochromasia (manual) Poikilocytosis (manual Basophilic Stippling Anisocytosis (manual) Microcytosis (manual) Target Cells Ovalocytes PT INR APTT Puncture Site pCO2 pO2 HCO3 ABG pH ABG Total CO2 ABG O2 Saturation ABG Base Excess Philippe Test ABG Potassium A-a O2 Difference Respiratory Index Sodium Chloride Glucose Lactate Vent Mode Mechanical Rate FiO2 Tidal Volume PEEP Blood Gas Comments Crit Value Called To Crit Value Called By Crit Value Read Back Blood Gas Notified Time Potassium Carbon Dioxide Anion Gap BUN Creatinine Est GFR ( Amer) Est GFR (Non-Af Amer) POC Glucose (mg/dL) Random Glucose Hemoglobin A1c Lactic Acid 3.3 H Calcium Phosphorus 7.1 H Magnesium 1.9 Total Bilirubin AST ALT Alkaline Phosphatase Ammonia Troponin I 1.2700 H* Total Protein Albumin Globulin Albumin/Globulin Ratio Prolactin Arterial Blood Potassium Urine Color Urine Clarity Urine pH Ur Specific [place] Urine Protein Urine Glucose (UA) Urine Ketones Urine Blood Urine Nitrate Urine Bilirubin Urine Urobilinogen Ur Leukocyte Esterase Urine WBC (Auto) Urine RBC (Auto) Ur Squamous Epith Cells Amorphous Sediment Urine Bacteria Hep Bs Antigen Hep Bs Antibody Hepatitis C Antibody Blood Type Antibody Screen 10/16/17 10/16/17 10/16/17 03:46 04:20 04:56 WBC RBC Hgb Hct MCV MCH MCHC RDW Plt Count MPV Neut % (Auto) Lymph % (Auto) [place] % (Auto) Eos % (Auto) Baso % (Auto) Neut # (Auto) Lymph # (Auto) [place] # (Auto) Eos # (Auto) Baso # (Auto) Neutrophils % (Manual) Band Neutrophils % Lymphocytes % (Manual) Monocytes % (Manual) Eosinophils % (Manual) Nucleated RBC % Platelet Estimate Large Platelets Polychromasia Hypochromasia (manual) Poikilocytosis (manual Basophilic Stippling Anisocytosis (manual) Microcytosis (manual) Target Cells Ovalocytes PT INR APTT Puncture Site [place] pCO2 73 H* pO2 79 L HCO3 26.1 ABG pH 7.24 L ABG Total CO2 33.5 H ABG O2 Saturation 96.0 ABG Base Excess 1.7 Philippe Test Na ABG Potassium 4.1 A-a O2 Difference 543.0 Respiratory Index 6.9 Sodium 138.0 Chloride 100.0 Glucose 256 H Lactate 2.1 Vent Mode Prvc Mechanical Rate 24 FiO2 100.0 Tidal Volume 500 PEEP 5 Blood Gas Comments Crit Value Called To Elan lindquist/rn Crit Value Called By Jeff oliver/rt Crit Value Read Back Y Blood Gas Notified Time 430 Potassium Carbon Dioxide Anion Gap BUN Creatinine Est GFR ( Amer) Est GFR (Non-Af Amer) POC Glucose (mg/dL) 310 H Random Glucose Hemoglobin A1c Lactic Acid Calcium Phosphorus Magnesium Total Bilirubin AST ALT Alkaline Phosphatase Ammonia Troponin I Total Protein Albumin Globulin Albumin/Globulin Ratio Prolactin Arterial Blood Potassium 4.1 Urine Color Urine Clarity Urine pH Ur Specific [place] Urine Protein Urine Glucose (UA) Urine Ketones Urine Blood Urine Nitrate Urine Bilirubin Urine Urobilinogen Ur Leukocyte Esterase Urine WBC (Auto) Urine RBC (Auto) Ur Squamous Epith Cells Amorphous Sediment Urine Bacteria Hep Bs Antigen Hep Bs Antibody Hepatitis C Antibody Blood Type A POSITIVE Antibody Screen Negative 10/16/17 10/16/17 10/16/17 06:15 06:17 06:33 WBC RBC Hgb Hct MCV MCH MCHC RDW Plt Count MPV Neut % (Auto) Lymph % (Auto) [place] % (Auto) Eos % (Auto) Baso % (Auto) Neut # (Auto) Lymph # (Auto) [place] # (Auto) Eos # (Auto) Baso # (Auto) Neutrophils % (Manual) Band Neutrophils % Lymphocytes % (Manual) Monocytes % (Manual) Eosinophils % (Manual) Nucleated RBC % Platelet Estimate Large Platelets Polychromasia Hypochromasia (manual) Poikilocytosis (manual Basophilic Stippling Anisocytosis (manual) Microcytosis (manual) Target Cells Ovalocytes PT INR APTT 57 H Puncture Site [place] pCO2 55 H pO2 100 HCO3 28.8 H ABG pH 7.37 ABG Total CO2 33.5 H ABG O2 Saturation 98.5 H ABG Base Excess 5.0 H Philippe Test Na ABG Potassium 3.9 A-a O2 Difference 544.0 Respiratory Index 5.4 Sodium 138.0 Chloride 102.0 Glucose 240 H Lactate 1.9 Vent Mode Prvc Mechanical Rate 24 FiO2 100.0 Tidal Volume 500 PEEP 5 Blood Gas Comments Crit Value Called To Crit Value Called By Crit Value Read Back Blood Gas Notified Time Potassium Carbon Dioxide Anion Gap BUN Creatinine Est GFR ( Amer) Est GFR (Non-Af Amer) POC Glucose (mg/dL) 182 H Random Glucose Hemoglobin A1c Lactic Acid Calcium Phosphorus Magnesium Total Bilirubin AST ALT Alkaline Phosphatase Ammonia Troponin I Total Protein Albumin Globulin Albumin/Globulin Ratio Prolactin Arterial Blood Potassium 3.9 Urine Color Urine Clarity Urine pH Ur Specific [place] Urine Protein Urine Glucose (UA) Urine Ketones Urine Blood Urine Nitrate Urine Bilirubin Urine Urobilinogen Ur Leukocyte Esterase Urine WBC (Auto) Urine RBC (Auto) Ur Squamous Epith Cells Amorphous Sediment Urine Bacteria Hep Bs Antigen Hep Bs Antibody Hepatitis C Antibody Blood Type Antibody Screen 10/16/17 10/16/17 10/16/17 06:33 06:33 06:51 WBC 16.5 H RBC 3.39 L Hgb 9.5 L Hct 29.7 L MCV 87.5 MCH 27.9 MCHC 31.9 L RDW 18.1 H Plt Count 58 L MPV 10.3 Neut % (Auto) 81.9 H Lymph % (Auto) 7.3 L [place] % (Auto) 9.3 Eos % (Auto) 0.9 Baso % (Auto) 0.6 Neut # (Auto) 13.5 H Lymph # (Auto) 1.2 [place] # (Auto) 1.5 H Eos # (Auto) 0.2 Baso # (Auto) 0.1 Neutrophils % (Manual) 87 H Band Neutrophils % Lymphocytes % (Manual) 5 L Monocytes % (Manual) 7 Eosinophils % (Manual) 1 Nucleated RBC % 3 H Platelet Estimate Decreased L Large Platelets Present Polychromasia Hypochromasia (manual) Slight Poikilocytosis (manual Slight Basophilic Stippling Slight Anisocytosis (manual) Slight Microcytosis (manual) Slight Target Cells Slight Ovalocytes Slight PT INR APTT Puncture Site pCO2 pO2 HCO3 ABG pH ABG Total CO2 ABG O2 Saturation ABG Base Excess Philippe Test ABG Potassium A-a O2 Difference Respiratory Index Sodium 139 Chloride 95 L Glucose Lactate Vent Mode Mechanical Rate FiO2 Tidal Volume PEEP Blood Gas Comments Crit Value Called To Crit Value Called By Crit Value Read Back Blood Gas Notified Time Potassium 4.3 Carbon Dioxide 33 H Anion Gap 15 BUN 66 H Creatinine 3.8 H Est GFR ( Amer) 21 Est GFR (Non-Af Amer) 17 POC Glucose (mg/dL) Random Glucose 234 H Hemoglobin A1c Lactic Acid Calcium 7.6 L Phosphorus 6.8 H Magnesium 1.8 Total Bilirubin 1.5 H AST 23 ALT 33 Alkaline Phosphatase 114 Ammonia < 9 L Troponin I Total Protein 5.7 L Albumin 2.7 L Globulin 3.0 Albumin/Globulin Ratio 0.9 L Prolactin 27.5 H Arterial Blood Potassium Urine Color Urine Clarity Urine pH Ur Specific [place] Urine Protein Urine Glucose (UA) Urine Ketones Urine Blood Urine Nitrate Urine Bilirubin Urine Urobilinogen Ur Leukocyte Esterase Urine WBC (Auto) Urine RBC (Auto) Ur Squamous Epith Cells Amorphous Sediment Urine Bacteria Hep Bs Antigen Hep Bs Antibody Hepatitis C Antibody Blood Type Antibody Screen 10/16/17 06:51 WBC RBC Hgb Hct MCV MCH MCHC RDW Plt Count MPV Neut % (Auto) Lymph % (Auto) [place] % (Auto) Eos % (Auto) Baso % (Auto) Neut # (Auto) Lymph # (Auto) [place] # (Auto) Eos # (Auto) Baso # (Auto) Neutrophils % (Manual) Band Neutrophils % Lymphocytes % (Manual) Monocytes % (Manual) Eosinophils % (Manual) Nucleated RBC % Platelet Estimate Large Platelets Polychromasia Hypochromasia (manual) Poikilocytosis (manual Basophilic Stippling Anisocytosis (manual) Microcytosis (manual) Target Cells Ovalocytes PT INR APTT Puncture Site pCO2 pO2 HCO3 ABG pH ABG Total CO2 ABG O2 Saturation ABG Base Excess Philippe Test ABG Potassium A-a O2 Difference Respiratory Index Sodium Chloride Glucose Lactate Vent Mode Mechanical Rate FiO2 Tidal Volume PEEP Blood Gas Comments Crit Value Called To Crit Value Called By Crit Value Read Back Blood Gas Notified Time Potassium Carbon Dioxide Anion Gap BUN Creatinine Est GFR ( Amer) Est GFR (Non-Af Amer) POC Glucose (mg/dL) Random Glucose Hemoglobin A1c 9.1 H D Lactic Acid Calcium Phosphorus Magnesium Total Bilirubin AST ALT Alkaline Phosphatase Ammonia Troponin I Total Protein Albumin Globulin Albumin/Globulin Ratio Prolactin Arterial Blood Potassium Urine Color Urine Clarity Urine pH Ur Specific [place] Urine Protein Urine Glucose (UA) Urine Ketones Urine Blood Urine Nitrate Urine Bilirubin Urine Urobilinogen Ur Leukocyte Esterase Urine WBC (Auto) Urine RBC (Auto) Ur Squamous Epith Cells Amorphous Sediment Urine Bacteria Hep Bs Antigen Hep Bs Antibody Hepatitis C Antibody Blood Type Antibody Screen EKG/Cardiology Studies: Cardiology / EKG Studies 10/15/17 15:45 EKG [ELECTROCARDIOGRAM] Stat Comment: Mode Of Transportation: Reason For Exam: post cardiac arrest Fingerstick Blood Sugar Results: 257 Review of Systems - Review of Systems Systems not reviewed;Unavailable: Intubated All systems: reviewed and no additional remarkable complaints except (as per HPI ) Critical Care Progress Note - Ventilator Checklist Head of Bed 30 Degrees: Yes Daily Sedation Vacation: Yes Daily Assessment of Readiness to Wean: Yes Daily Spontaneous Breathing Trial: Yes PUD Prophalyxis: Yes DVT Prophylaxis: Yes Oral Care with Chlorhexidine Gluconate {CHG}: Yes - Vent Settings MODE:: PRVC TIDAL VOLUME:: 490 RESP RATE:: 24 FIO2:: 100 PEEP:: 5 - Extremities/Vascular Does the Patient have a Central Venous Catheter?: Yes Insertion Site: Femoral Vein Does the Patient need a Central Venous Catheter?: Yes Does the Patient have a [place] Catheter?: Yes Does the Patient need a [place] Catheter?: Yes Catheter Insertion Criteria: Need for accurate measurement of output in critically ill patient - Prophylaxis GI Prophylaxis GI: PPI - Prophylaxis DVT Prophylaxis DVT: Not Indicated (eliquis was discontinued yesterday) Assessment/Plan - Assessment and Plan (Free Text) Assessment: This is a 47 year old male with PMH of COPD, DM, HTN, CKD, chronic liver disease and DVT s/p IVC filter, splenectomy who presented to the ED c/o SOB, "just like usual," and was admitted for mild respiratory distress with wheezes, retractions and hyperkalemia. Pt was in [facility] and received first time hemodialysis. Pt was managed on the medical floor until NEUROSURGICAL PHYSICIAN ASSISTANT was called on 10/15 due to no pulse. Pt was noted to be in asystole and was subsequently given CPR for 15-20 min. Pt was intubated at that time for airway control. Pt was transferred to the ICU for management after ROSC was achieved. ABG showed pH 6.97, PCO2 130. Pt remains intubated and sedated, with improvement of ABG to baseline chronic respiratory acidosis, compensated. Neuro: - Monitor for mental status changes - Continue Fentanyl, Propofol for sedation and Nimbex as paralyzing agent - daily sedation vacation - Head CT (10/16) shows no intracranial hemorrhage. Chornic pansinusitis. Air- fluid levels in maxillary antra bilaterally, nonspecific. Left frontal osteoma. Bilateral mastoid effusion. - f/u neuro recs Cardio: - Echocardiogram (10/13) shows LVEF of 66%. Mildly dilated LA. Mild concentric LVH. Abnormal septal motion from RV pressure overload. Sclerotic probably bicuspid aortic valve. Trace AI. Mild MR, TR. Severe pulmonary hypertension. No pericardial effusion seen. - Maintain SBP between 140 mmHg and 160 mmHg - Maintain MAP>65mmHg - Hydralazine IVP Q6 PRN - f/u cardiology recs Pulm: - CXR (10/16) shows worsening left lung pulmonary edema. Interval mild improved aeration in the right lung. Persistent presumable congestive heart failure. - continue doxyxycline, zosyn - continue PRVC (490/24/100%/5) - ABG shows chronic respiratory acidosis; compensated - paO2 is 100 - HoB >30 degrees - oral care - maintain spo2>90% GI: - Abd/Chest/pelv Ct (10/15) shows scattered foci of airspace consolidation more prominent at the mid and lower portion of the lungs. Findings are nonspecific. Cardiomegaly. Re-demonstration of mediastinal lymphadenopathy. Acute fracture at the anterior aspect of the left 5th rib. No significant interval change in the abdomen and plevis is noted since the previous exam. No evidence of acute pathology in the abdomen and pelvis. - Protonix for GI ppx Renal: - maintain euvolemia - replete electrolytes as needed - Pt was last dialyzed yesterday, with plan to repeat dialysis today as per nephrology - f/u nephro recs Endo: - maintain euglycemia - ISS medium Heme: - H/H stable - Pt last received Eliquis yesterday, PTT is currently therapeutic. Anticoagulation is not needed at this time. ID: - continue doxycycline, zosyn - pneumonia; leukocytosis is downtrending - Urine culture final shows no growth - Sputum gram strain final shows rare gram positive bacilli and moderate PMN WBCs - sputum cx prelim shows normal oral kwadwo PPX: Protonix for GI; eliquis was last given yesterday PTT is therapeutic at this time, SCDs Dispo: Continue ICU care Case was reviewed and discussed with attending physician, Dr. Long <Dae Long - Last Filed: 10/17/17 11:40> CCU Objective - Vital Signs / Intake & Output Vital Signs (Last 4 hours): Vital Signs Temp Pulse Resp BP BP Pulse Ox 10/17/17 11:15 93.9 F L 109 H 29 H 89/53 L 10/17/17 11:00 99 H 95 10/17/17 10:54 100 H 110/52 L 95 10/17/17 10:39 109 H 110/80 95 10/17/17 10:30 92.8 F L 99 H 24 86/58 L 10/17/17 10:03 92.5 F L 100 H 24 143/67 10/17/17 10:00 91.9 F L 112 H 24 149/67 143/65 91 L 10/17/17 09:00 91.4 F L 92 H 24 141/65 94 L 10/17/17 08:00 91.0 F L 91 H 24 151/67 H 167/67 H 98 Intake and Output (Last 8hrs): Intake & Output 10/16/17 10/17/17 10/17/17 22:59 06:59 14:59 Intake Total 1273.7 679.2 537.9 Output Total 4150 75 Balance -2876.3 679.2 462.9 Weight 327 lb 6.183 oz Intake: IV 560 100 415 Intake, IV Amount 713.7 579.2 122.9 Left Distal Port Femoral 155.3 114.4 57.5 Left Medial Port Femoral 469.7 179.2 44.0 Left Proximal Port 88.7 85.6 21.4 Femoral Right Upper arm 200 Output: Urine 950 75 Urethral (Campbell) 950 75 Other 3200 Other: # Voids Urethral (Campbell) 150 # Bowel Movements 0 - Medications Active Medications: Active Medications Generic Name Dose Route Start Last Admin Trade Name Freq PRN Reason Stop Dose Admin Albuterol/Ipratropium 3 ml 10/15/17 14:00 10/17/17 07:38 Duoneb 3 Mg/0.5 Mg (3 Ml) Ud INH 3 ml RQ6 ANABELLA Administration Artificial Tears 1 gm 10/17/17 08:39 Lacri-Lube OU Q4 ANABELLA Aspirin 81 mg 10/14/17 10:00 10/16/17 10:00 Aspirin Chewable PO Not Given DAILY ANABELLA Dextrose 0 ml 10/13/17 10:07 Dextrose 50% Inj IV STAT PRN Hypoglycemia Protocol Protocol Dextrose 0 gm 10/13/17 10:07 Glutose 15 PO ONCE PRN Hypoglycemia Protocol Protocol Dextrose 0 ml 10/15/17 23:36 Dextrose 50% Inj IV STAT PRN Hypoglycemia Protocol Protocol Dextrose 0 gm 10/15/17 23:36 Glutose 15 PO ONCE PRN Hypoglycemia Protocol Protocol Glucagon 0 mg 10/13/17 10:07 Glucagen Diagnostic Kit IM STAT PRN Hypoglycemia Protocol Protocol Glucagon 0 mg 10/15/17 23:36 Glucagen Diagnostic Kit IM STAT PRN Hypoglycemia Protocol Protocol Hydralazine HCl 10 mg 10/16/17 11:21 10/17/17 02:45 Apresoline IVP 10 mg Q6 PRN Administration keep BP between 160 and 140 Dextrose 1,000 mls @ 0 mls/hr 10/13/17 10:07 Dextrose 5% In Water 1000 Ml IV .Q0M PRN Hypoglycemia Protocol Protocol Per Protocol Doxycycline Hyclate 100 mg/ 100 mls @ 100 mls/hr 10/15/17 18:00 10/17/17 05: 06 Sodium Chloride IVPB 100 mls/hr Q12H ANABELLA Administration Protocol Piperacillin Sod/Tazobactam Sod 2.25 gm in 50 mls @ 100 mls/hr 10/15/17 17:30 10/17/17 05:06 Zosyn 2.25 Gm Iv Premix IVPB 100 mls/hr Q6H ANABELLA Administration Protocol Propofol 1,000 mg in 100 mls @ 4.307 mls/hr 10/15/17 17:17 10/17/17 10:40 Diprivan IV 10 mcg/kg/min .[id number] PRN 8.614 mls/hr TITRATE PER MD ORDER Titration Protocol 5 MCG/KG/MIN Dextrose 1,000 mls @ 0 mls/hr 10/15/17 23:36 Dextrose 5% In Water 1000 Ml IV .Q0M PRN Hypoglycemia Protocol Protocol Per Protocol Cisatracurium Besylate 100 mg/ 260 mls @ 67.18 mls/hr 10/16/17 03:30 09:30 Dextrose IV 0 mcg/kg/min .Q3H53M PRN 0 mls/hr Protocol Titration 3 MCG/KG/MIN Fentanyl Citrate 2,500 mcg/ 250 mls @ 28.71 mls/hr 10/16/17 03:30 10/17/17 11 :08 Sodium Chloride IV 1 mcg/kg/hr .Q8H43M PRN 14.35 mls/hr Protocol Titration 2 MCG/KG/HR Norepinephrine Bitartrate 4 mg 254 mls @ 15.24 mls/hr 10/17/17 11:34 / Sodium Chloride IV .[id number] PRN TITRATE PER MD ORDER Protocol 4 MCG/MIN Insulin Human Regular 0 unit 10/15/17 18:00 10/17/17 05:05 Novolin R SC 4 units Q6H ANABELLA Administration Protocol Pantoprazole Sodium 40 mg 10/16/17 01:00 10/17/17 01:43 Protonix Inj IVP 40 mg Q12H ANABELLA Administration Rosuvastatin Calcium 20 mg 10/13/17 22:00 10/16/17 23:48 Crestor PO Not Given HS ANABELLA Sodium Bicarbonate 650 mg 10/15/17 10:00 10/16/17 18:00 Sodium Bicarbonate Tab PO Not Given TID ANABELLA - Patient Studies Lab Studies: Microbiology Studies 10/15/17 17:35 Gram Stain - Final Sputum Sputum Culture - Final NORMAL ORAL KWADWO 10/15/17 14:36 MRSA Culture (Admit) - Final Naris MRSA NOT DETECTED 10/15/17 16:40 Blood Culture - Preliminary Blood-Venous NO GROWTH AFTER 24 HOURS 10/15/17 16:00 Blood Culture - Preliminary Blood-Venous NO GROWTH AFTER 24 HOURS 10/15/17 17:35 Urine Culture - Final Urine,Catheterized No Growth (<1,000 CFU/ML) Lab Studies 10/17/17 10/17/17 10/17/17 Range/Units 11:04 09:15 08:21 WBC (4.8-10.8) K/uL RBC (4.40-5.90) Mil/uL Hgb (12.0-18.0) g/dL Hct (35.0-51.0) % MCV (80.0-94.0) fL MCH (27.0-31.0) pg MCHC (33.0-37.0) g/dL RDW (11.5-14.5) % Plt Count (130-400) K/uL MPV (7.2-11.7) fL Neut % (Auto) (50.0-75.0) % Lymph % (Auto) (20.0-40.0) % [place] % (Auto) (0.0-10.0) % Eos % (Auto) (0.0-4.0) % Baso % (Auto) (0.0-2.0) % Neut # (Auto) (1.8-7.0) K/uL Lymph # (Auto) (1.0-4.3) K/uL [place] # (Auto) (0.0-0.8) K/uL Eos # (Auto) (0.0-0.7) K/uL Baso # (Auto) (0.0-0.2) K/uL Neutrophils % (Manual) (50-75) % Band Neutrophils % (0-2) % Lymphocytes % (Manual) (20-40) % Monocytes % (Manual) (0-10) % Eosinophils % (Manual) (0-4) % Nucleated RBC % (0-0) % Platelet Estimate (NORMAL) Polychromasia Poikilocytosis (manual Anisocytosis (manual) PT (9.7-12.2) SECONDS INR APTT (21-34) SECONDS Puncture Site pCO2 (35-45) mm/Hg pO2 (80-100) mm/Hg HCO3 (21-28) mmol/L ABG pH (7.35-7.45) ABG Total CO2 (22-28) mmol/L ABG O2 Saturation (95-98) % ABG Base Excess (-2.0-3.0) mmol/L Philippe Test ABG Potassium (3.6-5.2) mmol/L A-a O2 Difference mm/Hg Respiratory Index Glucose (75-110) mg/dl Lactate (0.7-2.1) mmol/L Vent Mode Mechanical Rate FiO2 % Tidal Volume PEEP Sodium (132-148) mmol/L Potassium (3.6-5.2) mmol/L Chloride (98-107) mmol/L Carbon Dioxide (22-30) mmol/L Anion Gap (10-20) BUN (9-20) mg/dL Creatinine (0.8-1.5) mg/dL Est GFR ( Amer) Est GFR (Non-Af Amer) POC Glucose (mg/dL) 237 H 272 H 267 H (65-110) mg/dL Random Glucose (75-110) mg/dL Calcium (8.6-10.4) mg/dl Phosphorus (2.5-4.5) mg/dL Magnesium (1.6-2.3) mg/dL Total Bilirubin (0.2-1.3) mg/dL AST (17-59) U/L ALT (21-72) U/L Alkaline Phosphatase (38-126) U/L Total Protein (6.3-8.3) g/dL Albumin (3.5-5.0) g/dL Globulin (2.2-3.9) gm/dL Albumin/Globulin Ratio (1.0-2.1) Free T4 (0.78-2.19) ng/dL TSH 3rd Generation (0.46-4.68) mIU/L Arterial Blood Potassium (3.6-5.2) mmol/L 10/17/17 10/17/17 10/17/17 Range/Units 07:44 06:31 06:31 WBC 21.1 H (4.8-10.8) K/uL RBC 4.14 L (4.40-5.90) Mil/uL Hgb 11.5 L (12.0-18.0) g/dL Hct 35.9 (35.0-51.0) % MCV 86.8 (80.0-94.0) fL MCH 27.8 (27.0-31.0) pg MCHC 32.0 L (33.0-37.0) g/dL RDW 18.2 H (11.5-14.5) % Plt Count 53 L (130-400) K/uL MPV 10.3 (7.2-11.7) fL Neut % (Auto) 86.3 H (50.0-75.0) % Lymph % (Auto) 6.3 L (20.0-40.0) % [place] % (Auto) 5.1 (0.0-10.0) % Eos % (Auto) 2.0 (0.0-4.0) % Baso % (Auto) 0.3 (0.0-2.0) % Neut # (Auto) 18.2 H (1.8-7.0) K/uL Lymph # (Auto) 1.3 (1.0-4.3) K/uL [place] # (Auto) 1.1 H (0.0-0.8) K/uL Eos # (Auto) 0.4 (0.0-0.7) K/uL Baso # (Auto) 0.1 (0.0-0.2) K/uL Neutrophils % (Manual) (50-75) % Band Neutrophils % (0-2) % Lymphocytes % (Manual) (20-40) % Monocytes % (Manual) (0-10) % Eosinophils % (Manual) (0-4) % Nucleated RBC % (0-0) % Platelet Estimate (NORMAL) Polychromasia Poikilocytosis (manual Anisocytosis (manual) PT (9.7-12.2) SECONDS INR APTT (21-34) SECONDS Puncture Site pCO2 (35-45) mm/Hg pO2 (80-100) mm/Hg HCO3 (21-28) mmol/L ABG pH (7.35-7.45) ABG Total CO2 (22-28) mmol/L ABG O2 Saturation (95-98) % ABG Base Excess (-2.0-3.0) mmol/L Philippe Test ABG Potassium (3.6-5.2) mmol/L A-a O2 Difference mm/Hg Respiratory Index Glucose (75-110) mg/dl Lactate (0.7-2.1) mmol/L Vent Mode Mechanical Rate FiO2 % Tidal Volume PEEP Sodium 136 (132-148) mmol/L Potassium 3.2 L (3.6-5.2) mmol/L Chloride 95 L (98-107) mmol/L Carbon Dioxide 30 (22-30) mmol/L Anion Gap 14 (10-20) BUN 44 H (9-20) mg/dL Creatinine 2.6 H (0.8-1.5) mg/dL Est GFR ( Amer) 32 Est GFR (Non-Af Amer) 26 POC Glucose (mg/dL) 328 H (65-110) mg/dL Random Glucose 272 H (75-110) mg/dL Calcium 8.3 L (8.6-10.4) mg/dl Phosphorus 4.2 (2.5-4.5) mg/dL Magnesium 1.8 (1.6-2.3) mg/dL Total Bilirubin 2.1 H (0.2-1.3) mg/dL AST 28 (17-59) U/L ALT 33 (21-72) U/L Alkaline Phosphatase 141 H (38-126) U/L Total Protein 6.5 (6.3-8.3) g/dL Albumin 3.2 L (3.5-5.0) g/dL Globulin 3.3 (2.2-3.9) gm/dL Albumin/Globulin Ratio 1.0 (1.0-2.1) Free T4 (0.78-2.19) ng/dL TSH 3rd Generation (0.46-4.68) mIU/L Arterial Blood Potassium (3.6-5.2) mmol/L 10/17/17 10/17/17 10/17/17 Range/Units 05:48 05:12 04:46 WBC (4.8-10.8) K/uL RBC (4.40-5.90) Mil/uL Hgb (12.0-18.0) g/dL Hct (35.0-51.0) % MCV (80.0-94.0) fL MCH (27.0-31.0) pg MCHC (33.0-37.0) g/dL RDW (11.5-14.5) % Plt Count (130-400) K/uL MPV (7.2-11.7) fL Neut % (Auto) (50.0-75.0) % Lymph % (Auto) (20.0-40.0) % [place] % (Auto) (0.0-10.0) % Eos % (Auto) (0.0-4.0) % Baso % (Auto) (0.0-2.0) % Neut # (Auto) (1.8-7.0) K/uL Lymph # (Auto) (1.0-4.3) K/uL [place] # (Auto) (0.0-0.8) K/uL Eos # (Auto) (0.0-0.7) K/uL Baso # (Auto) (0.0-0.2) K/uL Neutrophils % (Manual) (50-75) % Band Neutrophils % (0-2) % Lymphocytes % (Manual) (20-40) % Monocytes % (Manual) (0-10) % Eosinophils % (Manual) (0-4) % Nucleated RBC % (0-0) % Platelet Estimate (NORMAL) Polychromasia Poikilocytosis (manual Anisocytosis (manual) PT (9.7-12.2) SECONDS INR APTT (21-34) SECONDS Puncture Site [place] pCO2 55 H (35-45) mm/Hg pO2 72 L (80-100) mm/Hg HCO3 26.3 (21-28) mmol/L ABG pH 7.33 L (7.35-7.45) ABG Total CO2 30.7 H (22-28) mmol/L ABG O2 Saturation 95.6 (95-98) % ABG Base Excess 1.9 (-2.0-3.0) mmol/L Philippe Test Na ABG Potassium 2.8 L (3.6-5.2) mmol/L A-a O2 Difference 572.0 mm/Hg Respiratory Index 7.9 Glucose 279 H (75-110) mg/dl Lactate 1.2 (0.7-2.1) mmol/L Vent Mode Prvc Mechanical Rate 24 FiO2 100.0 % Tidal Volume 500 PEEP 5 Sodium 136.0 (132-148) mmol/L Potassium (3.6-5.2) mmol/L Chloride 99.0 (98-107) mmol/L Carbon Dioxide (22-30) mmol/L Anion Gap (10-20) BUN (9-20) mg/dL Creatinine (0.8-1.5) mg/dL Est GFR ( Amer) Est GFR (Non-Af Amer) POC Glucose (mg/dL) 261 H 261 H (65-110) mg/dL Random Glucose (75-110) mg/dL Calcium (8.6-10.4) mg/dl Phosphorus (2.5-4.5) mg/dL Magnesium (1.6-2.3) mg/dL Total Bilirubin (0.2-1.3) mg/dL AST (17-59) U/L ALT (21-72) U/L Alkaline Phosphatase (38-126) U/L Total Protein (6.3-8.3) g/dL Albumin (3.5-5.0) g/dL Globulin (2.2-3.9) gm/dL Albumin/Globulin Ratio (1.0-2.1) Free T4 (0.78-2.19) ng/dL TSH 3rd Generation (0.46-4.68) mIU/L Arterial Blood Potassium 2.8 L (3.6-5.2) mmol/L 10/17/17 10/17/17 10/17/17 Range/Units 03:52 03:25 03:04 WBC (4.8-10.8) K/uL RBC (4.40-5.90) Mil/uL Hgb (12.0-18.0) g/dL Hct (35.0-51.0) % MCV (80.0-94.0) fL MCH (27.0-31.0) pg MCHC (33.0-37.0) g/dL RDW (11.5-14.5) % Plt Count (130-400) K/uL MPV (7.2-11.7) fL Neut % (Auto) (50.0-75.0) % Lymph % (Auto) (20.0-40.0) % [place] % (Auto) (0.0-10.0) % Eos % (Auto) (0.0-4.0) % Baso % (Auto) (0.0-2.0) % Neut # (Auto) (1.8-7.0) K/uL Lymph # (Auto) (1.0-4.3) K/uL [place] # (Auto) (0.0-0.8) K/uL Eos # (Auto) (0.0-0.7) K/uL Baso # (Auto) (0.0-0.2) K/uL Neutrophils % (Manual) (50-75) % Band Neutrophils % (0-2) % Lymphocytes % (Manual) (20-40) % Monocytes % (Manual) (0-10) % Eosinophils % (Manual) (0-4) % Nucleated RBC % (0-0) % Platelet Estimate (NORMAL) Polychromasia Poikilocytosis (manual Anisocytosis (manual) PT 16.6 H (9.7-12.2) SECONDS INR 1.5 APTT 67 H D (21-34) SECONDS Puncture Site pCO2 (35-45) mm/Hg pO2 (80-100) mm/Hg HCO3 (21-28) mmol/L ABG pH (7.35-7.45) ABG Total CO2 (22-28) mmol/L ABG O2 Saturation (95-98) % ABG Base Excess (-2.0-3.0) mmol/L Philippe Test ABG Potassium (3.6-5.2) mmol/L A-a O2 Difference mm/Hg Respiratory Index Glucose (75-110) mg/dl Lactate (0.7-2.1) mmol/L Vent Mode Mechanical Rate FiO2 % Tidal Volume PEEP Sodium 138 (132-148) mmol/L Potassium 3.1 L (3.6-5.2) mmol/L Chloride 96 L (98-107) mmol/L Carbon Dioxide 30 (22-30) mmol/L Anion Gap 15 (10-20) BUN 42 H (9-20) mg/dL Creatinine 2.5 H (0.8-1.5) mg/dL Est GFR ( Amer) 34 Est GFR (Non-Af Amer) 28 POC Glucose (mg/dL) 255 H (65-110) mg/dL Random Glucose 248 H (75-110) mg/dL Calcium 8.5 L (8.6-10.4) mg/dl Phosphorus (2.5-4.5) mg/dL Magnesium (1.6-2.3) mg/dL Total Bilirubin 2.4 H (0.2-1.3) mg/dL AST 30 (17-59) U/L ALT 29 (21-72) U/L Alkaline Phosphatase 152 H D (38-126) U/L Total Protein 6.7 (6.3-8.3) g/dL Albumin 3.3 L D (3.5-5.0) g/dL Globulin 3.4 (2.2-3.9) gm/dL Albumin/Globulin Ratio 1.0 (1.0-2.1) Free T4 (0.78-2.19) ng/dL TSH 3rd Generation (0.46-4.68) mIU/L Arterial Blood Potassium (3.6-5.2) mmol/L 10/17/17 10/17/17 10/17/17 Range/Units 03:04 03:04 02:48 WBC 22.9 H (4.8-10.8) K/uL RBC 4.19 L (4.40-5.90) Mil/uL Hgb 11.7 L D (12.0-18.0) g/dL Hct 36.4 (35.0-51.0) % MCV 86.7 (80.0-94.0) fL MCH 27.9 (27.0-31.0) pg MCHC 32.2 L (33.0-37.0) g/dL RDW 18.0 H (11.5-14.5) % Plt Count 50 L (130-400) K/uL MPV 9.7 (7.2-11.7) fL Neut % (Auto) 86.1 H (50.0-75.0) % Lymph % (Auto) 5.3 L (20.0-40.0) % [place] % (Auto) 5.3 (0.0-10.0) % Eos % (Auto) 3.1 (0.0-4.0) % Baso % (Auto) 0.2 (0.0-2.0) % Neut # (Auto) 19.7 H (1.8-7.0) K/uL Lymph # (Auto) 1.2 (1.0-4.3) K/uL [place] # (Auto) 1.2 H (0.0-0.8) K/uL Eos # (Auto) 0.7 (0.0-0.7) K/uL Baso # (Auto) 0.1 (0.0-0.2) K/uL Neutrophils % (Manual) 81 H (50-75) % Band Neutrophils % 4 H (0-2) % Lymphocytes % (Manual) 6 L (20-40) % Monocytes % (Manual) 6 (0-10) % Eosinophils % (Manual) 3 (0-4) % Nucleated RBC % 1 H (0-0) % Platelet Estimate Normal (NORMAL) Polychromasia Slight Poikilocytosis (manual Slight Anisocytosis (manual) Slight PT (9.7-12.2) SECONDS INR APTT (21-34) SECONDS Puncture Site pCO2 (35-45) mm/Hg pO2 (80-100) mm/Hg HCO3 (21-28) mmol/L ABG pH (7.35-7.45) ABG Total CO2 (22-28) mmol/L ABG O2 Saturation (95-98) % ABG Base Excess (-2.0-3.0) mmol/L Philippe Test ABG Potassium (3.6-5.2) mmol/L A-a O2 Difference mm/Hg Respiratory Index Glucose (75-110) mg/dl Lactate (0.7-2.1) mmol/L Vent Mode Mechanical Rate FiO2 % Tidal Volume PEEP Sodium (132-148) mmol/L Potassium (3.6-5.2) mmol/L Chloride (98-107) mmol/L Carbon Dioxide (22-30) mmol/L Anion Gap (10-20) BUN (9-20) mg/dL Creatinine (0.8-1.5) mg/dL Est GFR ( Amer) Est GFR (Non-Af Amer) POC Glucose (mg/dL) 237 H (65-110) mg/dL Random Glucose (75-110) mg/dL Calcium (8.6-10.4) mg/dl Phosphorus 3.3 (2.5-4.5) mg/dL Magnesium 1.8 (1.6-2.3) mg/dL Total Bilirubin (0.2-1.3) mg/dL AST (17-59) U/L ALT (21-72) U/L Alkaline Phosphatase (38-126) U/L Total Protein (6.3-8.3) g/dL Albumin (3.5-5.0) g/dL Globulin (2.2-3.9) gm/dL Albumin/Globulin Ratio (1.0-2.1) Free T4 (0.78-2.19) ng/dL TSH 3rd Generation (0.46-4.68) mIU/L Arterial Blood Potassium (3.6-5.2) mmol/L 10/17/17 10/16/17 10/16/17 Range/Units 01:41 23:50 22:50 WBC (4.8-10.8) K/uL RBC (4.40-5.90) Mil/uL Hgb (12.0-18.0) g/dL Hct (35.0-51.0) % MCV (80.0-94.0) fL MCH (27.0-31.0) pg MCHC (33.0-37.0) g/dL RDW (11.5-14.5) % Plt Count (130-400) K/uL MPV (7.2-11.7) fL Neut % (Auto) (50.0-75.0) % Lymph % (Auto) (20.0-40.0) % [place] % (Auto) (0.0-10.0) % Eos % (Auto) (0.0-4.0) % Baso % (Auto) (0.0-2.0) % Neut # (Auto) (1.8-7.0) K/uL Lymph # (Auto) (1.0-4.3) K/uL [place] # (Auto) (0.0-0.8) K/uL Eos # (Auto) (0.0-0.7) K/uL Baso # (Auto) (0.0-0.2) K/uL Neutrophils % (Manual) (50-75) % Band Neutrophils % (0-2) % Lymphocytes % (Manual) (20-40) % Monocytes % (Manual) (0-10) % Eosinophils % (Manual) (0-4) % Nucleated RBC % (0-0) % Platelet Estimate (NORMAL) Polychromasia Poikilocytosis (manual Anisocytosis (manual) PT (9.7-12.2) SECONDS INR APTT (21-34) SECONDS Puncture Site pCO2 (35-45) mm/Hg pO2 (80-100) mm/Hg HCO3 (21-28) mmol/L ABG pH (7.35-7.45) ABG Total CO2 (22-28) mmol/L ABG O2 Saturation (95-98) % ABG Base Excess (-2.0-3.0) mmol/L Philippe Test ABG Potassium (3.6-5.2) mmol/L A-a O2 Difference mm/Hg Respiratory Index Glucose (75-110) mg/dl Lactate (0.7-2.1) mmol/L Vent Mode Mechanical Rate FiO2 % Tidal Volume PEEP Sodium (132-148) mmol/L Potassium (3.6-5.2) mmol/L Chloride (98-107) mmol/L Carbon Dioxide (22-30) mmol/L Anion Gap (10-20) BUN (9-20) mg/dL Creatinine (0.8-1.5) mg/dL Est GFR ( Amer) Est GFR (Non-Af Amer) POC Glucose (mg/dL) 233 H 204 H 191 H (65-110) mg/dL Random Glucose (75-110) mg/dL Calcium (8.6-10.4) mg/dl Phosphorus (2.5-4.5) mg/dL Magnesium (1.6-2.3) mg/dL Total Bilirubin (0.2-1.3) mg/dL AST (17-59) U/L ALT (21-72) U/L Alkaline Phosphatase (38-126) U/L Total Protein (6.3-8.3) g/dL Albumin (3.5-5.0) g/dL Globulin (2.2-3.9) gm/dL Albumin/Globulin Ratio (1.0-2.1) Free T4 (0.78-2.19) ng/dL TSH 3rd Generation (0.46-4.68) mIU/L Arterial Blood Potassium (3.6-5.2) mmol/L 10/16/17 10/16/17 10/16/17 Range/Units 21:34 19:10 17:52 WBC (4.8-10.8) K/uL RBC (4.40-5.90) Mil/uL Hgb (12.0-18.0) g/dL Hct (35.0-51.0) % MCV (80.0-94.0) fL MCH (27.0-31.0) pg MCHC (33.0-37.0) g/dL RDW (11.5-14.5) % Plt Count (130-400) K/uL MPV (7.2-11.7) fL Neut % (Auto) (50.0-75.0) % Lymph % (Auto) (20.0-40.0) % [place] % (Auto) (0.0-10.0) % Eos % (Auto) (0.0-4.0) % Baso % (Auto) (0.0-2.0) % Neut # (Auto) (1.8-7.0) K/uL Lymph # (Auto) (1.0-4.3) K/uL [place] # (Auto) (0.0-0.8) K/uL Eos # (Auto) (0.0-0.7) K/uL Baso # (Auto) (0.0-0.2) K/uL Neutrophils % (Manual) (50-75) % Band Neutrophils % (0-2) % Lymphocytes % (Manual) (20-40) % Monocytes % (Manual) (0-10) % Eosinophils % (Manual) (0-4) % Nucleated RBC % (0-0) % Platelet Estimate (NORMAL) Polychromasia Poikilocytosis (manual Anisocytosis (manual) PT (9.7-12.2) SECONDS INR APTT (21-34) SECONDS Puncture Site pCO2 (35-45) mm/Hg pO2 (80-100) mm/Hg HCO3 (21-28) mmol/L ABG pH (7.35-7.45) ABG Total CO2 (22-28) mmol/L ABG O2 Saturation (95-98) % ABG Base Excess (-2.0-3.0) mmol/L Philippe Test ABG Potassium (3.6-5.2) mmol/L A-a O2 Difference mm/Hg Respiratory Index Glucose (75-110) mg/dl Lactate (0.7-2.1) mmol/L Vent Mode Mechanical Rate FiO2 % Tidal Volume PEEP Sodium (132-148) mmol/L Potassium (3.6-5.2) mmol/L Chloride (98-107) mmol/L Carbon Dioxide (22-30) mmol/L Anion Gap (10-20) BUN (9-20) mg/dL Creatinine (0.8-1.5) mg/dL Est GFR ( Amer) Est GFR (Non-Af Amer) POC Glucose (mg/dL) 170 H 177 H 188 H (65-110) mg/dL Random Glucose (75-110) mg/dL Calcium (8.6-10.4) mg/dl Phosphorus (2.5-4.5) mg/dL Magnesium (1.6-2.3) mg/dL Total Bilirubin (0.2-1.3) mg/dL AST (17-59) U/L ALT (21-72) U/L Alkaline Phosphatase (38-126) U/L Total Protein (6.3-8.3) g/dL Albumin (3.5-5.0) g/dL Globulin (2.2-3.9) gm/dL Albumin/Globulin Ratio (1.0-2.1) Free T4 (0.78-2.19) ng/dL TSH 3rd Generation (0.46-4.68) mIU/L Arterial Blood Potassium (3.6-5.2) mmol/L 10/16/17 10/16/17 10/16/17 Range/Units 16:33 16:04 15:15 WBC (4.8-10.8) K/uL RBC (4.40-5.90) Mil/uL Hgb (12.0-18.0) g/dL Hct (35.0-51.0) % MCV (80.0-94.0) fL MCH (27.0-31.0) pg MCHC (33.0-37.0) g/dL RDW (11.5-14.5) % Plt Count (130-400) K/uL MPV (7.2-11.7) fL Neut % (Auto) (50.0-75.0) % Lymph % (Auto) (20.0-40.0) % [place] % (Auto) (0.0-10.0) % Eos % (Auto) (0.0-4.0) % Baso % (Auto) (0.0-2.0) % Neut # (Auto) (1.8-7.0) K/uL Lymph # (Auto) (1.0-4.3) K/uL [place] # (Auto) (0.0-0.8) K/uL Eos # (Auto) (0.0-0.7) K/uL Baso # (Auto) (0.0-0.2) K/uL Neutrophils % (Manual) (50-75) % Band Neutrophils % (0-2) % Lymphocytes % (Manual) (20-40) % Monocytes % (Manual) (0-10) % Eosinophils % (Manual) (0-4) % Nucleated RBC % (0-0) % Platelet Estimate (NORMAL) Polychromasia Poikilocytosis (manual Anisocytosis (manual) PT (9.7-12.2) SECONDS INR APTT (21-34) SECONDS Puncture Site pCO2 (35-45) mm/Hg pO2 (80-100) mm/Hg HCO3 (21-28) mmol/L ABG pH (7.35-7.45) ABG Total CO2 (22-28) mmol/L ABG O2 Saturation (95-98) % ABG Base Excess (-2.0-3.0) mmol/L Philippe Test ABG Potassium (3.6-5.2) mmol/L A-a O2 Difference mm/Hg Respiratory Index Glucose (75-110) mg/dl Lactate (0.7-2.1) mmol/L Vent Mode Mechanical Rate FiO2 % Tidal Volume PEEP Sodium (132-148) mmol/L Potassium (3.6-5.2) mmol/L Chloride (98-107) mmol/L Carbon Dioxide (22-30) mmol/L Anion Gap (10-20) BUN (9-20) mg/dL Creatinine (0.8-1.5) mg/dL Est GFR ( Amer) Est GFR (Non-Af Amer) POC Glucose (mg/dL) 242 H 231 H (65-110) mg/dL Random Glucose (75-110) mg/dL Calcium (8.6-10.4) mg/dl Phosphorus (2.5-4.5) mg/dL Magnesium (1.6-2.3) mg/dL Total Bilirubin (0.2-1.3) mg/dL AST (17-59) U/L ALT (21-72) U/L Alkaline Phosphatase (38-126) U/L Total Protein (6.3-8.3) g/dL Albumin (3.5-5.0) g/dL Globulin (2.2-3.9) gm/dL Albumin/Globulin Ratio (1.0-2.1) Free T4 1.63 (0.78-2.19) ng/dL TSH 3rd Generation 0.94 (0.46-4.68) mIU/L Arterial Blood Potassium (3.6-5.2) mmol/L 10/16/17 10/16/17 10/16/17 Range/Units 14:23 13:48 12:20 WBC (4.8-10.8) K/uL RBC (4.40-5.90) Mil/uL Hgb (12.0-18.0) g/dL Hct (35.0-51.0) % MCV (80.0-94.0) fL MCH (27.0-31.0) pg MCHC (33.0-37.0) g/dL RDW (11.5-14.5) % Plt Count (130-400) K/uL MPV (7.2-11.7) fL Neut % (Auto) (50.0-75.0) % Lymph % (Auto) (20.0-40.0) % [place] % (Auto) (0.0-10.0) % Eos % (Auto) (0.0-4.0) % Baso % (Auto) (0.0-2.0) % Neut # (Auto) (1.8-7.0) K/uL Lymph # (Auto) (1.0-4.3) K/uL [place] # (Auto) (0.0-0.8) K/uL Eos # (Auto) (0.0-0.7) K/uL Baso # (Auto) (0.0-0.2) K/uL Neutrophils % (Manual) (50-75) % Band Neutrophils % (0-2) % Lymphocytes % (Manual) (20-40) % Monocytes % (Manual) (0-10) % Eosinophils % (Manual) (0-4) % Nucleated RBC % (0-0) % Platelet Estimate (NORMAL) Polychromasia Poikilocytosis (manual Anisocytosis (manual) PT (9.7-12.2) SECONDS INR APTT (21-34) SECONDS Puncture Site pCO2 (35-45) mm/Hg pO2 (80-100) mm/Hg HCO3 (21-28) mmol/L ABG pH (7.35-7.45) ABG Total CO2 (22-28) mmol/L ABG O2 Saturation (95-98) % ABG Base Excess (-2.0-3.0) mmol/L Philippe Test ABG Potassium (3.6-5.2) mmol/L A-a O2 Difference mm/Hg Respiratory Index Glucose (75-110) mg/dl Lactate (0.7-2.1) mmol/L Vent Mode Mechanical Rate FiO2 % Tidal Volume PEEP Sodium (132-148) mmol/L Potassium (3.6-5.2) mmol/L Chloride (98-107) mmol/L Carbon Dioxide (22-30) mmol/L Anion Gap (10-20) BUN (9-20) mg/dL Creatinine (0.8-1.5) mg/dL Est GFR ( Amer) Est GFR (Non-Af Amer) POC Glucose (mg/dL) 249 H 254 H 235 H (65-110) mg/dL Random Glucose (75-110) mg/dL Calcium (8.6-10.4) mg/dl Phosphorus (2.5-4.5) mg/dL Magnesium (1.6-2.3) mg/dL Total Bilirubin (0.2-1.3) mg/dL AST (17-59) U/L ALT (21-72) U/L Alkaline Phosphatase (38-126) U/L Total Protein (6.3-8.3) g/dL Albumin (3.5-5.0) g/dL Globulin (2.2-3.9) gm/dL Albumin/Globulin Ratio (1.0-2.1) Free T4 (0.78-2.19) ng/dL TSH 3rd Generation (0.46-4.68) mIU/L Arterial Blood Potassium (3.6-5.2) mmol/L 10/16/17 Range/Units 11:38 WBC (4.8-10.8) K/uL RBC (4.40-5.90) Mil/uL Hgb (12.0-18.0) g/dL Hct (35.0-51.0) % MCV (80.0-94.0) fL MCH (27.0-31.0) pg MCHC (33.0-37.0) g/dL RDW (11.5-14.5) % Plt Count (130-400) K/uL MPV (7.2-11.7) fL Neut % (Auto) (50.0-75.0) % Lymph % (Auto) (20.0-40.0) % [place] % (Auto) (0.0-10.0) % Eos % (Auto) (0.0-4.0) % Baso % (Auto) (0.0-2.0) % Neut # (Auto) (1.8-7.0) K/uL Lymph # (Auto) (1.0-4.3) K/uL [place] # (Auto) (0.0-0.8) K/uL Eos # (Auto) (0.0-0.7) K/uL Baso # (Auto) (0.0-0.2) K/uL Neutrophils % (Manual) (50-75) % Band Neutrophils % (0-2) % Lymphocytes % (Manual) (20-40) % Monocytes % (Manual) (0-10) % Eosinophils % (Manual) (0-4) % Nucleated RBC % (0-0) % Platelet Estimate (NORMAL) Polychromasia Poikilocytosis (manual Anisocytosis (manual) PT (9.7-12.2) SECONDS INR APTT (21-34) SECONDS Puncture Site pCO2 (35-45) mm/Hg pO2 (80-100) mm/Hg HCO3 (21-28) mmol/L ABG pH (7.35-7.45) ABG Total CO2 (22-28) mmol/L ABG O2 Saturation (95-98) % ABG Base Excess (-2.0-3.0) mmol/L Philippe Test ABG Potassium (3.6-5.2) mmol/L A-a O2 Difference mm/Hg Respiratory Index Glucose (75-110) mg/dl Lactate (0.7-2.1) mmol/L Vent Mode Mechanical Rate FiO2 % Tidal Volume PEEP Sodium (132-148) mmol/L Potassium (3.6-5.2) mmol/L Chloride (98-107) mmol/L Carbon Dioxide (22-30) mmol/L Anion Gap (10-20) BUN (9-20) mg/dL Creatinine (0.8-1.5) mg/dL Est GFR ( Amer) Est GFR (Non-Af Amer) POC Glucose (mg/dL) 236 H (65-110) mg/dL Random Glucose (75-110) mg/dL Calcium (8.6-10.4) mg/dl Phosphorus (2.5-4.5) mg/dL Magnesium (1.6-2.3) mg/dL Total Bilirubin (0.2-1.3) mg/dL AST (17-59) U/L ALT (21-72) U/L Alkaline Phosphatase (38-126) U/L Total Protein (6.3-8.3) g/dL Albumin (3.5-5.0) g/dL Globulin (2.2-3.9) gm/dL Albumin/Globulin Ratio (1.0-2.1) Free T4 (0.78-2.19) ng/dL TSH 3rd Generation (0.46-4.68) mIU/L Arterial Blood Potassium (3.6-5.2) mmol/L Laboratory Results - last 24 hr 10/16/17 10/16/17 10/16/17 11:38 12:20 13:48 WBC RBC Hgb Hct MCV MCH MCHC RDW Plt Count MPV Neut % (Auto) Lymph % (Auto) [place] % (Auto) Eos % (Auto) Baso % (Auto) Neut # (Auto) Lymph # (Auto) [place] # (Auto) Eos # (Auto) Baso # (Auto) Neutrophils % (Manual) Band Neutrophils % Lymphocytes % (Manual) Monocytes % (Manual) Eosinophils % (Manual) Nucleated RBC % Platelet Estimate Polychromasia Poikilocytosis (manual Anisocytosis (manual) PT INR APTT Puncture Site pCO2 pO2 HCO3 ABG pH ABG Total CO2 ABG O2 Saturation ABG Base Excess Philippe Test ABG Potassium A-a O2 Difference Respiratory Index Glucose Lactate Vent Mode Mechanical Rate FiO2 Tidal Volume PEEP Sodium Potassium Chloride Carbon Dioxide Anion Gap BUN Creatinine Est GFR ( Amer) Est GFR (Non-Af Amer) POC Glucose (mg/dL) 236 H 235 H 254 H Random Glucose Calcium Phosphorus Magnesium Total Bilirubin AST ALT Alkaline Phosphatase Total Protein Albumin Globulin Albumin/Globulin Ratio Free T4 TSH 3rd Generation Arterial Blood Potassium 10/16/17 10/16/17 10/16/17 14:23 15:15 16:04 WBC RBC Hgb Hct MCV MCH MCHC RDW Plt Count MPV Neut % (Auto) Lymph % (Auto) [place] % (Auto) Eos % (Auto) Baso % (Auto) Neut # (Auto) Lymph # (Auto) [place] # (Auto) Eos # (Auto) Baso # (Auto) Neutrophils % (Manual) Band Neutrophils % Lymphocytes % (Manual) Monocytes % (Manual) Eosinophils % (Manual) Nucleated RBC % Platelet Estimate Polychromasia Poikilocytosis (manual Anisocytosis (manual) PT INR APTT Puncture Site pCO2 pO2 HCO3 ABG pH ABG Total CO2 ABG O2 Saturation ABG Base Excess Philippe Test ABG Potassium A-a O2 Difference Respiratory Index Glucose Lactate Vent Mode Mechanical Rate FiO2 Tidal Volume PEEP Sodium Potassium Chloride Carbon Dioxide Anion Gap BUN Creatinine Est GFR ( Amer) Est GFR (Non-Af Amer) POC Glucose (mg/dL) 249 H 231 H 242 H Random Glucose Calcium Phosphorus Magnesium Total Bilirubin AST ALT Alkaline Phosphatase Total Protein Albumin Globulin Albumin/Globulin Ratio Free T4 TSH 3rd Generation Arterial Blood Potassium 10/16/17 10/16/17 10/16/17 16:33 17:52 19:10 WBC RBC Hgb Hct MCV MCH MCHC RDW Plt Count MPV Neut % (Auto) Lymph % (Auto) [place] % (Auto) Eos % (Auto) Baso % (Auto) Neut # (Auto) Lymph # (Auto) [place] # (Auto) Eos # (Auto) Baso # (Auto) Neutrophils % (Manual) Band Neutrophils % Lymphocytes % (Manual) Monocytes % (Manual) Eosinophils % (Manual) Nucleated RBC % Platelet Estimate Polychromasia Poikilocytosis (manual Anisocytosis (manual) PT INR APTT Puncture Site pCO2 pO2 HCO3 ABG pH ABG Total CO2 ABG O2 Saturation ABG Base Excess Philippe Test ABG Potassium A-a O2 Difference Respiratory Index Glucose Lactate Vent Mode Mechanical Rate FiO2 Tidal Volume PEEP Sodium Potassium Chloride Carbon Dioxide Anion Gap BUN Creatinine Est GFR ( Amer) Est GFR (Non-Af Amer) POC Glucose (mg/dL) 188 H 177 H Random Glucose Calcium Phosphorus Magnesium Total Bilirubin AST ALT Alkaline Phosphatase Total Protein Albumin Globulin Albumin/Globulin Ratio Free T4 1.63 TSH 3rd Generation 0.94 Arterial Blood Potassium 10/16/17 10/16/17 10/16/17 21:34 22:50 23:50 WBC RBC Hgb Hct MCV MCH MCHC RDW Plt Count MPV Neut % (Auto) Lymph % (Auto) [place] % (Auto) Eos % (Auto) Baso % (Auto) Neut # (Auto) Lymph # (Auto) [place] # (Auto) Eos # (Auto) Baso # (Auto) Neutrophils % (Manual) Band Neutrophils % Lymphocytes % (Manual) Monocytes % (Manual) Eosinophils % (Manual) Nucleated RBC % Platelet Estimate Polychromasia Poikilocytosis (manual Anisocytosis (manual) PT INR APTT Puncture Site pCO2 pO2 HCO3 ABG pH ABG Total CO2 ABG O2 Saturation ABG Base Excess Philippe Test ABG Potassium A-a O2 Difference Respiratory Index Glucose Lactate Vent Mode Mechanical Rate FiO2 Tidal Volume PEEP Sodium Potassium Chloride Carbon Dioxide Anion Gap BUN Creatinine Est GFR ( Amer) Est GFR (Non-Af Amer) POC Glucose (mg/dL) 170 H 191 H 204 H Random Glucose Calcium Phosphorus Magnesium Total Bilirubin AST ALT Alkaline Phosphatase Total Protein Albumin Globulin Albumin/Globulin Ratio Free T4 TSH 3rd Generation Arterial Blood Potassium 10/17/17 10/17/17 10/17/17 01:41 02:48 03:04 WBC 22.9 H RBC 4.19 L Hgb 11.7 L D Hct 36.4 MCV 86.7 MCH 27.9 MCHC 32.2 L RDW 18.0 H Plt Count 50 L MPV 9.7 Neut % (Auto) 86.1 H Lymph % (Auto) 5.3 L [place] % (Auto) 5.3 Eos % (Auto) 3.1 Baso % (Auto) 0.2 Neut # (Auto) 19.7 H Lymph # (Auto) 1.2 [place] # (Auto) 1.2 H Eos # (Auto) 0.7 Baso # (Auto) 0.1 Neutrophils % (Manual) 81 H Band Neutrophils % 4 H Lymphocytes % (Manual) 6 L Monocytes % (Manual) 6 Eosinophils % (Manual) 3 Nucleated RBC % 1 H Platelet Estimate Normal Polychromasia Slight Poikilocytosis (manual Slight Anisocytosis (manual) Slight PT INR APTT Puncture Site pCO2 pO2 HCO3 ABG pH ABG Total CO2 ABG O2 Saturation ABG Base Excess Philippe Test ABG Potassium A-a O2 Difference Respiratory Index Glucose Lactate Vent Mode Mechanical Rate FiO2 Tidal Volume PEEP Sodium Potassium Chloride Carbon Dioxide Anion Gap BUN Creatinine Est GFR ( Amer) Est GFR (Non-Af Amer) POC Glucose (mg/dL) 233 H 237 H Random Glucose Calcium Phosphorus Magnesium Total Bilirubin AST ALT Alkaline Phosphatase Total Protein Albumin Globulin Albumin/Globulin Ratio Free T4 TSH 3rd Generation Arterial Blood Potassium 10/17/17 10/17/17 10/17/17 03:04 03:04 03:25 WBC RBC Hgb Hct MCV MCH MCHC RDW Plt Count MPV Neut % (Auto) Lymph % (Auto) [place] % (Auto) Eos % (Auto) Baso % (Auto) Neut # (Auto) Lymph # (Auto) [place] # (Auto) Eos # (Auto) Baso # (Auto) Neutrophils % (Manual) Band Neutrophils % Lymphocytes % (Manual) Monocytes % (Manual) Eosinophils % (Manual) Nucleated RBC % Platelet Estimate Polychromasia Poikilocytosis (manual Anisocytosis (manual) PT 16.6 H INR 1.5 APTT 67 H D Puncture Site pCO2 pO2 HCO3 ABG pH ABG Total CO2 ABG O2 Saturation ABG Base Excess Philippe Test ABG Potassium A-a O2 Difference Respiratory Index Glucose Lactate Vent Mode Mechanical Rate FiO2 Tidal Volume PEEP Sodium 138 Potassium 3.1 L Chloride 96 L Carbon Dioxide 30 Anion Gap 15 BUN 42 H Creatinine 2.5 H Est GFR ( Amer) 34 Est GFR (Non-Af Amer) 28 POC Glucose (mg/dL) Random Glucose 248 H Calcium 8.5 L Phosphorus 3.3 Magnesium 1.8 Total Bilirubin 2.4 H AST 30 ALT 29 Alkaline Phosphatase 152 H D Total Protein 6.7 Albumin 3.3 L D Globulin 3.4 Albumin/Globulin Ratio 1.0 Free T4 TSH 3rd Generation Arterial Blood Potassium 10/17/17 10/17/17 10/17/17 03:52 04:46 05:12 WBC RBC Hgb Hct MCV MCH MCHC RDW Plt Count MPV Neut % (Auto) Lymph % (Auto) [place] % (Auto) Eos % (Auto) Baso % (Auto) Neut # (Auto) Lymph # (Auto) [place] # (Auto) Eos # (Auto) Baso # (Auto) Neutrophils % (Manual) Band Neutrophils % Lymphocytes % (Manual) Monocytes % (Manual) Eosinophils % (Manual) Nucleated RBC % Platelet Estimate Polychromasia Poikilocytosis (manual Anisocytosis (manual) PT INR APTT Puncture Site Gertrude pCO2 55 H pO2 72 L HCO3 26.3 ABG pH 7.33 L ABG Total CO2 30.7 H ABG O2 Saturation 95.6 ABG Base Excess 1.9 Philippe Test Na ABG Potassium 2.8 L A-a O2 Difference 572.0 Respiratory Index 7.9 Glucose 279 H Lactate 1.2 Vent Mode Prvc Mechanical Rate 24 FiO2 100.0 Tidal Volume 500 PEEP 5 Sodium 136.0 Potassium Chloride 99.0 Carbon Dioxide Anion Gap BUN Creatinine Est GFR ( Amer) Est GFR (Non-Af Amer) POC Glucose (mg/dL) 255 H 261 H Random Glucose Calcium Phosphorus Magnesium Total Bilirubin AST ALT Alkaline Phosphatase Total Protein Albumin Globulin Albumin/Globulin Ratio Free T4 TSH 3rd Generation Arterial Blood Potassium 2.8 L 10/17/17 10/17/17 10/17/17 05:48 06:31 06:31 WBC 21.1 H RBC 4.14 L Hgb 11.5 L Hct 35.9 MCV 86.8 MCH 27.8 MCHC 32.0 L RDW 18.2 H Plt Count 53 L MPV 10.3 Neut % (Auto) 86.3 H Lymph % (Auto) 6.3 L [place] % (Auto) 5.1 Eos % (Auto) 2.0 Baso % (Auto) 0.3 Neut # (Auto) 18.2 H Lymph # (Auto) 1.3 [place] # (Auto) 1.1 H Eos # (Auto) 0.4 Baso # (Auto) 0.1 Neutrophils % (Manual) Band Neutrophils % Lymphocytes % (Manual) Monocytes % (Manual) Eosinophils % (Manual) Nucleated RBC % Platelet Estimate Polychromasia Poikilocytosis (manual Anisocytosis (manual) PT INR APTT Puncture Site pCO2 pO2 HCO3 ABG pH ABG Total CO2 ABG O2 Saturation ABG Base Excess Philippe Test ABG Potassium A-a O2 Difference Respiratory Index Glucose Lactate Vent Mode Mechanical Rate FiO2 Tidal Volume PEEP Sodium 136 Potassium 3.2 L Chloride 95 L Carbon Dioxide 30 Anion Gap 14 BUN 44 H Creatinine 2.6 H Est GFR ( Amer) 32 Est GFR (Non-Af Amer) 26 POC Glucose (mg/dL) 261 H Random Glucose 272 H Calcium 8.3 L Phosphorus 4.2 Magnesium 1.8 Total Bilirubin 2.1 H AST 28 ALT 33 Alkaline Phosphatase 141 H Total Protein 6.5 Albumin 3.2 L Globulin 3.3 Albumin/Globulin Ratio 1.0 Free T4 TSH 3rd Generation Arterial Blood Potassium 10/17/17 10/17/17 10/17/17 07:44 08:21 09:15 WBC RBC Hgb Hct MCV MCH MCHC RDW Plt Count MPV Neut % (Auto) Lymph % (Auto) [place] % (Auto) Eos % (Auto) Baso % (Auto) Neut # (Auto) Lymph # (Auto) [place] # (Auto) Eos # (Auto) Baso # (Auto) Neutrophils % (Manual) Band Neutrophils % Lymphocytes % (Manual) Monocytes % (Manual) Eosinophils % (Manual) Nucleated RBC % Platelet Estimate Polychromasia Poikilocytosis (manual Anisocytosis (manual) PT INR APTT Puncture Site pCO2 pO2 HCO3 ABG pH ABG Total CO2 ABG O2 Saturation ABG Base Excess Philippe Test ABG Potassium A-a O2 Difference Respiratory Index Glucose Lactate Vent Mode Mechanical Rate FiO2 Tidal Volume PEEP Sodium Potassium Chloride Carbon Dioxide Anion Gap BUN Creatinine Est GFR ( Amer) Est GFR (Non-Af Amer) POC Glucose (mg/dL) 328 H 267 H 272 H Random Glucose Calcium Phosphorus Magnesium Total Bilirubin AST ALT Alkaline Phosphatase Total Protein Albumin Globulin Albumin/Globulin Ratio Free T4 TSH 3rd Generation Arterial Blood Potassium 10/17/17 11:04 WBC RBC Hgb Hct MCV MCH MCHC RDW Plt Count MPV Neut % (Auto) Lymph % (Auto) [place] % (Auto) Eos % (Auto) Baso % (Auto) Neut # (Auto) Lymph # (Auto) [place] # (Auto) Eos # (Auto) Baso # (Auto) Neutrophils % (Manual) Band Neutrophils % Lymphocytes % (Manual) Monocytes % (Manual) Eosinophils % (Manual) Nucleated RBC % Platelet Estimate Polychromasia Poikilocytosis (manual Anisocytosis (manual) PT INR APTT Puncture Site pCO2 pO2 HCO3 ABG pH ABG Total CO2 ABG O2 Saturation ABG Base Excess Philippe Test ABG Potassium A-a O2 Difference Respiratory Index Glucose Lactate Vent Mode Mechanical Rate FiO2 Tidal Volume PEEP Sodium Potassium Chloride Carbon Dioxide Anion Gap BUN Creatinine Est GFR ( Amer) Est GFR (Non-Af Amer) POC Glucose (mg/dL) 237 H Random Glucose Calcium Phosphorus Magnesium Total Bilirubin AST ALT Alkaline Phosphatase Total Protein Albumin Globulin Albumin/Globulin Ratio Free T4 TSH 3rd Generation Arterial Blood Potassium Attending/Attestation - Attestation I have personally seen and examined this patient.: Yes I have fully participated in the care of the patient.: Yes I have reviewed all pertinent clinical information: Yes Notes (Text): 10/17/17 11:39 Patient yesterday had a sudden cardiac arrest, while he was in the process of being transferred to the intensive care unit for hemodialysis patient possibly become more hypoxic, and developed a cardiac arrest, resuscitated, currently in the intensive care unit. I spoke to the patient's family in details about the overall prognosis. Currently patient is on hypothermic blanket. Patient overall prognosis very poor. He has a multiple complex medical condition including advanced chronic lung disease with the high oxygen requirement, BiPAP at home. Advanced renal disease, worsening recently. Advanced diabetes, with diabetic complications. History of splenectomy. Cardiac arrest in the past a DVT and pulmonary embolism, on anticoagulation. Nonobstructive coronary artery disease.
--- NOTE | 2017-10-16 12:22 | CP.PCM.CON ---
History of Present Illness - History of Present Illness History of Present Illness: Palliative consult requested by Doctor Ethan, for goals of care discussion patient is a 47 yo male, admitted from home with SOB X 2 days and dry cough. Per patient " these episodes had happened in the past".Patient depends on Bi Pap at home, but was not compliant with it. Compliant with other meds. On 10/15/17 patient seen by the nurse leaving bathroom, looking weak. Patient was assisted to the floor, found pulse less, Code Blue called and patient intubated on the spot. Further care per ICU. 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 Hx: single, lives at home, unemployed Fam. HxL Uncle with kidney issues, on HD Review of Systems - Review of Systems Systems not reviewed;Unavailable: Intubated All systems: reviewed and no additional remarkable complaints except Review of Systems: ROS unobtainable from patient due to condition. Per nursing, patient remains unresponsive to stimuli, off Diprivan at this time, on cooling blanket. Past Patient History - Infectious Disease Hx of Infectious Diseases: None - Past Medical History & Family History Past Medical History?: Yes Past Family History: Reviewed and not pertinent - Past Social History Smoking Status: Former Smoker Chewing Tobacco Use: No Cigar Use: No Alcohol: None Drugs: Denies Home Situation {Lives}: With Family - CARDIAC Hx Congestive Heart Failure: Yes Hx Hypertension: Yes - PULMONARY Hx Asthma: Yes Hx Chronic Obstructive Pulmonary Disease (COPD): Yes Hx Pneumonia: Yes - NEUROLOGICAL Hx Neurological Disorder: Yes - HEENT Hx HEENT Problems: No - RENAL Hx Chronic Kidney Disease: Yes - ENDOCRINE/METABOLIC Hx Endocrine Disorders: Yes Hx Diabetes Mellitus Type 2: Yes - HEMATOLOGICAL/ONCOLOGICAL Hx Blood Disorders: Yes Other/Comment: Right LE DVT - INTEGUMENTARY Hx Dermatological Problems: Yes Hx Cellulitis: Yes - MUSCULOSKELETAL/RHEUMATOLOGICAL Hx Arthritis: Yes - GASTROINTESTINAL Hx Gastrointestinal Disorders: No - GENITOURINARY/GYNECOLOGICAL Hx Genitourinary Disorders: No - PSYCHIATRIC Hx Anxiety: No Hx Substance Use: No - SURGICAL HISTORY Hx Surgeries: Yes Hx Splenectomy: Yes Other/Comment: IVC Filter placement - ANESTHESIA Hx Anesthesia: Yes Hx Anesthesia Reactions: No Hx Malignant Hyperthermia: No Meds Allergies/Adverse Reactions: Allergies Allergy/AdvReac Type Severity Reaction Status Date / Time EGG Allergy Intermediate RASH Verified 10/13/17 08:14 - Medications Medications: Current Medications Albuterol/Ipratropium (Duoneb 3 Mg/0.5 Mg (3 Ml) Ud) 3 ml INH RQ6 [facility] Last Admin: 10/16/17 07:50 Dose: 3 ml Aspirin (Aspirin Chewable) 81 mg PO DAILY [facility] Last Admin: 10/15/17 09:12 Dose: 81 mg Dextrose (Dextrose 50% Inj) 0 ml IV STAT PRN; Protocol PRN Reason: Hypoglycemia Protocol Dextrose (Glutose 15) 0 gm PO ONCE PRN; Protocol PRN Reason: Hypoglycemia Protocol Dextrose (Dextrose 50% Inj) 0 ml IV STAT PRN; Protocol PRN Reason: Hypoglycemia Protocol Dextrose (Glutose 15) 0 gm PO ONCE PRN; Protocol PRN Reason: Hypoglycemia Protocol Glucagon (Glucagen Diagnostic Kit) 0 mg IM STAT PRN; Protocol PRN Reason: Hypoglycemia Protocol Glucagon (Glucagen Diagnostic Kit) 0 mg IM STAT PRN; Protocol PRN Reason: Hypoglycemia Protocol Hydralazine HCl (Apresoline) 10 mg IVP Q6 PRN PRN Reason: keep BP between 160 and 140 Last Admin: 10/16/17 11:43 Dose: 10 mg Dextrose (Dextrose 5% In Water 1000 Ml) 1,000 mls @ 0 mls/hr IV .Q0M PRN; Protocol; Per Protocol PRN Reason: Hypoglycemia Protocol Doxycycline Hyclate 100 mg/ (Sodium Chloride) 100 mls @ 100 mls/hr IVPB Q12H [facility] PRN Reason: Protocol Last Admin: 10/16/17 05:08 Dose: 100 mls/hr Piperacillin Sod/Tazobactam Sod (Zosyn 2.25 Gm Iv Premix) 2.25 gm in 50 mls @ 100 mls/hr IVPB Q6H [facility] PRN Reason: Protocol Last Admin: 10/16/17 05:00 Dose: 100 mls/hr Propofol (Diprivan) 1,000 mg in 100 mls @ 4.307 mls/hr IV .[id number] PRN; Protocol; 5 MCG/KG/MIN PRN Reason: TITRATE PER MD ORDER Last Admin: 10/16/17 11:03 Dose: 10 mcg/kg/min, 8.614 mls/hr Norepinephrine Bitartrate 8 mg (/ Dextrose) 258 mls @ 7.74 mls/hr IV .Q24H PRN ; Protocol; 4 MCG/MIN PRN Reason: TITRATE PER MD ORDER Last Titration: 10/16/17 00:00 Dose: 0 mcg/min, 0 mls/hr Dextrose (Dextrose 5% In Water 1000 Ml) 1,000 mls @ 0 mls/hr IV .Q0M PRN; Protocol; Per Protocol PRN Reason: Hypoglycemia Protocol Cisatracurium Besylate 100 mg/ (Dextrose) 260 mls @ 67.18 mls/hr IV .Q3H53M PRN ; 3 MCG/KG/MIN PRN Reason: Protocol Last Titration: 10/16/17 10:00 Dose: 1 mcg/kg/min, 22.39 mls/hr Fentanyl Citrate 2,500 mcg/ (Sodium Chloride) 250 mls @ 28.71 mls/hr IV .Q8H43M PRN; 2 MCG/KG/HR PRN Reason: Protocol Last Titration: 10/16/17 09:00 Dose: 0 mcg/kg/hr, 0 mls/hr Insulin Human Regular (Novolin R) 0 unit SC Q6H [facility] PRN Reason: Protocol Last Admin: 10/16/17 04:59 Dose: 6 units Pantoprazole Sodium (Protonix Inj) 40 mg IVP Q12H [facility] Last Admin: 10/16/17 01:30 Dose: 40 mg Rosuvastatin Calcium (Crestor) 20 mg PO HS [facility] Last Admin: 10/15/17 23:09 Dose: Not Given Sodium Bicarbonate (Sodium Bicarbonate Tab) 650 mg PO TID [facility] Last Admin: 10/15/17 18:01 Dose: 650 mg Sodium Polystyrene Sulfonate (Kayexalate Susp) 30 gm PO BID [facility] Last Admin: 10/15/17 18:53 Dose: 30 gm Physical Exam - Constitutional Appears: In Acute Distress, Chronically Ill - Head Exam Head Exam: ATRAUMATIC, NORMAL INSPECTION, NORMOCEPHALIC - Eye Exam Eye Exam: Normal appearance Pupil Exam: Fixed - ENT Exam ENT Exam: Mucous Membranes Dry Additional comments: ETT - Neck Exam Neck exam: Positive for: Normal Inspection - Respiratory Exam Additional comments: On MV support - Cardiovascular Exam Cardiovascular Exam: Tachycardia, Irregular Rhythm - GI/Abdominal Exam GI & Abdominal Exam: Diminished Bowel Sounds - Rectal Exam Rectal Exam: Deferred - Exam Exam: NORMAL INSPECTION - Extremities Exam Extremities exam: Positive for: pedal edema - Back Exam Back exam: NORMAL INSPECTION - Neurological Exam Neurological exam: Motor Sensory Deficit - Skin Skin Exam: Normal Color Results - Vital Signs Recent Vital Signs: Last Vital Signs Temp 92.2 F L 10/16/17 12:00 Pulse 78 10/16/17 10:05 Resp 24 10/16/17 10:05 BP 227/109 H 10/16/17 10:05 Pulse Ox 100 10/16/17 10:05 - Labs Result Diagrams: 10/16/17 06:33 10/16/17 06:33 Labs: Laboratory Results - last 24 hr 10/15/17 10/15/17 10/15/17 13:35 14:36 14:36 WBC RBC Hgb Hct MCV MCH MCHC RDW Plt Count MPV Neut % (Auto) Lymph % (Auto) [place] % (Auto) Eos % (Auto) Baso % (Auto) Neut # (Auto) Lymph # (Auto) [place] # (Auto) Eos # (Auto) Baso # (Auto) Neutrophils % (Manual) Band Neutrophils % Lymphocytes % (Manual) Monocytes % (Manual) Eosinophils % (Manual) Nucleated RBC % Platelet Estimate Large Platelets Polychromasia Hypochromasia (manual) Poikilocytosis (manual Basophilic Stippling Anisocytosis (manual) Microcytosis (manual) Target Cells Ovalocytes PT INR APTT Puncture Site Lf pCO2 87 H* pO2 69 L HCO3 25.8 ABG pH 7.18 L* ABG Total CO2 35.2 H ABG O2 Saturation 95.3 ABG Base Excess 1.4 Philippe Test Na ABG Potassium 4.2 A-a O2 Difference 535.0 Respiratory Index 7.8 Sodium 139.0 Chloride 99.0 Glucose 351 H Lactate 3.2 H Vent Mode Mechanical Rate 24 FiO2 100.0 Tidal Volume 500 PEEP 5 Crit Value Called To Dr jay franco Crit Value Called By Son galeano director of workforce development Crit Value Read Back Y Blood Gas Notified Time 1340 Potassium Carbon Dioxide Anion Gap BUN Creatinine Est GFR ( Amer) Est GFR (Non-Af Amer) POC Glucose (mg/dL) Random Glucose Hemoglobin A1c Lactic Acid Calcium Phosphorus Magnesium Total Bilirubin AST ALT Alkaline Phosphatase Ammonia Troponin I Total Protein Albumin Globulin Albumin/Globulin Ratio Prolactin Arterial Blood Potassium 4.2 Urine Color Urine Clarity Urine pH Ur Specific [place] Urine Protein Urine Glucose (UA) Urine Ketones Urine Blood Urine Nitrate Urine Bilirubin Urine Urobilinogen Ur Leukocyte Esterase Urine WBC (Auto) Urine RBC (Auto) Ur Squamous Epith Cells Amorphous Sediment Urine Bacteria Hep Bs Antigen Negative Hep Bs Antibody Positive Hepatitis C Antibody Negative Blood Type Antibody Screen 10/15/17 10/15/17 10/15/17 14:54 16:21 16:21 WBC RBC Hgb Hct MCV MCH MCHC RDW Plt Count MPV Neut % (Auto) Lymph % (Auto) [place] % (Auto) Eos % (Auto) Baso % (Auto) Neut # (Auto) Lymph # (Auto) [place] # (Auto) Eos # (Auto) Baso # (Auto) Neutrophils % (Manual) Band Neutrophils % Lymphocytes % (Manual) Monocytes % (Manual) Eosinophils % (Manual) Nucleated RBC % Platelet Estimate Large Platelets Polychromasia Hypochromasia (manual) Poikilocytosis (manual Basophilic Stippling Anisocytosis (manual) Microcytosis (manual) Target Cells Ovalocytes PT INR APTT 60 H Puncture Site pCO2 pO2 HCO3 ABG pH ABG Total CO2 ABG O2 Saturation ABG Base Excess Philippe Test ABG Potassium A-a O2 Difference Respiratory Index Sodium Chloride Glucose Lactate Vent Mode Mechanical Rate FiO2 Tidal Volume PEEP Crit Value Called To Crit Value Called By Crit Value Read Back Blood Gas Notified Time Potassium 4.4 Carbon Dioxide Anion Gap BUN Creatinine Est GFR ( Amer) Est GFR (Non-Af Amer) POC Glucose (mg/dL) Random Glucose Hemoglobin A1c Lactic Acid 2.5 H Calcium Phosphorus Magnesium Total Bilirubin AST ALT Alkaline Phosphatase Ammonia Troponin I Total Protein Albumin Globulin Albumin/Globulin Ratio Prolactin Arterial Blood Potassium Urine Color Urine Clarity Urine pH Ur Specific [place] Urine Protein Urine Glucose (UA) Urine Ketones Urine Blood Urine Nitrate Urine Bilirubin Urine Urobilinogen Ur Leukocyte Esterase Urine WBC (Auto) Urine RBC (Auto) Ur Squamous Epith Cells Amorphous Sediment Urine Bacteria Hep Bs Antigen Hep Bs Antibody Hepatitis C Antibody Blood Type Antibody Screen 10/15/17 10/15/17 10/15/17 17:13 17:35 17:49 WBC RBC Hgb Hct MCV MCH MCHC RDW Plt Count MPV Neut % (Auto) Lymph % (Auto) [place] % (Auto) Eos % (Auto) Baso % (Auto) Neut # (Auto) Lymph # (Auto) [place] # (Auto) Eos # (Auto) Baso # (Auto) Neutrophils % (Manual) Band Neutrophils % Lymphocytes % (Manual) Monocytes % (Manual) Eosinophils % (Manual) Nucleated RBC % Platelet Estimate Large Platelets Polychromasia Hypochromasia (manual) Poikilocytosis (manual Basophilic Stippling Anisocytosis (manual) Microcytosis (manual) Target Cells Ovalocytes PT INR APTT Puncture Site Gertrude pCO2 74 H* pO2 101 H HCO3 27.2 ABG pH 7.25 L ABG Total CO2 34.8 H ABG O2 Saturation 98.9 H ABG Base Excess 2.9 Philippe Test Na ABG Potassium 3.6 A-a O2 Difference 520.0 Respiratory Index 5.1 Sodium 141.0 Chloride 104.0 Glucose 248 H Lactate 2.7 H Vent Mode Prvc Mechanical Rate 24 FiO2 100.0 Tidal Volume 500 PEEP 5 Crit Value Called To Dr franco Crit Value Called By Carlos A perez Crit Value Read Back Y Blood Gas Notified Time 1715 Potassium Carbon Dioxide Anion Gap BUN Creatinine Est GFR ( Amer) Est GFR (Non-Af Amer) POC Glucose (mg/dL) 257 H Random Glucose Hemoglobin A1c Lactic Acid Calcium Phosphorus Magnesium Total Bilirubin AST ALT Alkaline Phosphatase Ammonia Troponin I Total Protein Albumin Globulin Albumin/Globulin Ratio Prolactin Arterial Blood Potassium 3.6 Urine Color Yellow Urine Clarity Hazy Urine pH 5.0 Ur Specific [place] 1.014 Urine Protein 3+ H Urine Glucose (UA) 2+ H Urine Ketones Negative Urine Blood 2+ H Urine Nitrate Negative Urine Bilirubin Negative Urine Urobilinogen Normal Ur Leukocyte Esterase Neg Urine WBC (Auto) 13 H Urine RBC (Auto) 17 H Ur Squamous Epith Cells 1 Amorphous Sediment Rare H Urine Bacteria Rare Hep Bs Antigen Hep Bs Antibody Hepatitis C Antibody Blood Type Antibody Screen 10/15/17 10/15/17 10/15/17 17:56 17:56 21:06 WBC 25.4 H D RBC 3.71 L Hgb 10.2 L Hct 32.8 L MCV 88.6 D MCH 27.4 MCHC 31.0 L RDW 18.1 H Plt Count 59 L D MPV 9.1 Neut % (Auto) 82.8 H Lymph % (Auto) 1.6 L [place] % (Auto) 15.4 H Eos % (Auto) 0.1 Baso % (Auto) 0.1 Neut # (Auto) 21.0 H Lymph # (Auto) 0.4 L [place] # (Auto) 3.9 H Eos # (Auto) 0.0 Baso # (Auto) 0.0 Neutrophils % (Manual) 83 H Band Neutrophils % 9 H Lymphocytes % (Manual) 2 L Monocytes % (Manual) 6 Eosinophils % (Manual) Nucleated RBC % 1 H Platelet Estimate Decreased L Large Platelets Polychromasia Slight Hypochromasia (manual) Slight Poikilocytosis (manual Basophilic Stippling Anisocytosis (manual) Slight Microcytosis (manual) Target Cells Ovalocytes PT INR APTT Puncture Site Gertrude pCO2 71 H* pO2 103 H HCO3 26.3 ABG pH 7.25 L ABG Total CO2 33.3 H ABG O2 Saturation 99.0 H ABG Base Excess 1.8 Philippe Test Na ABG Potassium 4.2 A-a O2 Difference 521.0 Respiratory Index 5.1 Sodium 141 140.0 Chloride 97 L 103.0 Glucose 313 H Lactate 4.8 H* Vent Mode Prvc Mechanical Rate 24 FiO2 100.0 Tidal Volume 500 PEEP 5 Crit Value Called To Dr franco Crit Value Called By Carlos A perez Crit Value Read Back Y Blood Gas Notified Time 2108 Potassium 4.2 Carbon Dioxide 34 H Anion Gap 14 BUN 59 H Creatinine 3.4 H Est GFR ( Amer) 24 Est GFR (Non-Af Amer) 19 POC Glucose (mg/dL) Random Glucose 265 H Hemoglobin A1c Lactic Acid Calcium 7.7 L Phosphorus 5.1 H Magnesium 1.8 Total Bilirubin 1.5 H AST 29 ALT 39 Alkaline Phosphatase 158 H Ammonia Troponin I 0.3970 H* Total Protein 6.2 L Albumin 3.0 L Globulin 3.2 Albumin/Globulin Ratio 1.0 Prolactin Arterial Blood Potassium 4.2 Urine Color Urine Clarity Urine pH Ur Specific [place] Urine Protein Urine Glucose (UA) Urine Ketones Urine Blood Urine Nitrate Urine Bilirubin Urine Urobilinogen Ur Leukocyte Esterase Urine WBC (Auto) Urine RBC (Auto) Ur Squamous Epith Cells Amorphous Sediment Urine Bacteria Hep Bs Antigen Hep Bs Antibody Hepatitis C Antibody Blood Type Antibody Screen 10/16/17 10/16/17 10/16/17 00:01 00:08 00:08 WBC 19.9 H RBC 3.49 L Hgb 9.7 L Hct 30.8 L MCV 88.3 MCH 27.7 MCHC 31.4 L RDW 18.0 H Plt Count 57 L MPV 9.5 Neut % (Auto) 85.6 H Lymph % (Auto) 4.7 L [place] % (Auto) 9.5 Eos % (Auto) 0.0 Baso % (Auto) 0.2 Neut # (Auto) 17.0 H Lymph # (Auto) 0.9 L [place] # (Auto) 1.9 H Eos # (Auto) 0.0 Baso # (Auto) 0.0 Neutrophils % (Manual) 89 H Band Neutrophils % 3 H Lymphocytes % (Manual) 3 L Monocytes % (Manual) 5 Eosinophils % (Manual) Nucleated RBC % 1 H Platelet Estimate Decreased L Large Platelets Polychromasia Slight Hypochromasia (manual) Poikilocytosis (manual Basophilic Stippling Anisocytosis (manual) Slight Microcytosis (manual) Target Cells Ovalocytes PT INR APTT Puncture Site pCO2 pO2 HCO3 ABG pH ABG Total CO2 ABG O2 Saturation ABG Base Excess Philippe Test ABG Potassium A-a O2 Difference Respiratory Index Sodium 140 Chloride 96 L Glucose Lactate Vent Mode Mechanical Rate FiO2 Tidal Volume PEEP Crit Value Called To Crit Value Called By Crit Value Read Back Blood Gas Notified Time Potassium 4.7 Carbon Dioxide 32 H Anion Gap 16 BUN 63 H Creatinine 3.6 H Est GFR ( Amer) 22 Est GFR (Non-Af Amer) 18 POC Glucose (mg/dL) 360 H Random Glucose 311 H Hemoglobin A1c Lactic Acid Calcium 7.7 L Phosphorus 6.4 H Magnesium 1.8 Total Bilirubin 1.5 H AST 28 ALT 31 Alkaline Phosphatase 132 H Ammonia Troponin I Total Protein 6.0 L Albumin 3.1 L Globulin 3.0 Albumin/Globulin Ratio 1.0 Prolactin Arterial Blood Potassium Urine Color Urine Clarity Urine pH Ur Specific [place] Urine Protein Urine Glucose (UA) Urine Ketones Urine Blood Urine Nitrate Urine Bilirubin Urine Urobilinogen Ur Leukocyte Esterase Urine WBC (Auto) Urine RBC (Auto) Ur Squamous Epith Cells Amorphous Sediment Urine Bacteria Hep Bs Antigen Hep Bs Antibody Hepatitis C Antibody Blood Type Antibody Screen 10/16/17 10/16/17 10/16/17 00:08 00:53 00:55 WBC RBC Hgb Hct MCV MCH MCHC RDW Plt Count MPV Neut % (Auto) Lymph % (Auto) [place] % (Auto) Eos % (Auto) Baso % (Auto) Neut # (Auto) Lymph # (Auto) [place] # (Auto) Eos # (Auto) Baso # (Auto) Neutrophils % (Manual) Band Neutrophils % Lymphocytes % (Manual) Monocytes % (Manual) Eosinophils % (Manual) Nucleated RBC % Platelet Estimate Large Platelets Polychromasia Hypochromasia (manual) Poikilocytosis (manual Basophilic Stippling Anisocytosis (manual) Microcytosis (manual) Target Cells Ovalocytes PT 16.2 H INR 1.5 APTT 61 H Puncture Site Gertrude pCO2 64 H pO2 98 HCO3 25.6 ABG pH 7.27 L ABG Total CO2 31.4 H ABG O2 Saturation 98.5 H ABG Base Excess 0.9 Philippe Test Na ABG Potassium 4.0 A-a O2 Difference 535.0 Respiratory Index 5.5 Sodium 139.0 Chloride 102.0 Glucose 298 H Lactate 3.4 H Vent Mode Prvc Mechanical Rate 24 FiO2 100.0 Tidal Volume 500 PEEP 5 Crit Value Called To Crit Value Called By Crit Value Read Back Blood Gas Notified Time Potassium Carbon Dioxide Anion Gap BUN Creatinine Est GFR ( Amer) Est GFR (Non-Af Amer) POC Glucose (mg/dL) 128 H Random Glucose Hemoglobin A1c Lactic Acid Calcium Phosphorus Magnesium Total Bilirubin AST ALT Alkaline Phosphatase Ammonia Troponin I Total Protein Albumin Globulin Albumin/Globulin Ratio Prolactin Arterial Blood Potassium 4.0 Urine Color Urine Clarity Urine pH Ur Specific [place] Urine Protein Urine Glucose (UA) Urine Ketones Urine Blood Urine Nitrate Urine Bilirubin Urine Urobilinogen Ur Leukocyte Esterase Urine WBC (Auto) Urine RBC (Auto) Ur Squamous Epith Cells Amorphous Sediment Urine Bacteria Hep Bs Antigen Hep Bs Antibody Hepatitis C Antibody Blood Type Antibody Screen 10/16/17 10/16/17 10/16/17 01:57 03:37 03:46 WBC RBC Hgb Hct MCV MCH MCHC RDW Plt Count MPV Neut % (Auto) Lymph % (Auto) [place] % (Auto) Eos % (Auto) Baso % (Auto) Neut # (Auto) Lymph # (Auto) [place] # (Auto) Eos # (Auto) Baso # (Auto) Neutrophils % (Manual) Band Neutrophils % Lymphocytes % (Manual) Monocytes % (Manual) Eosinophils % (Manual) Nucleated RBC % Platelet Estimate Large Platelets Polychromasia Hypochromasia (manual) Poikilocytosis (manual Basophilic Stippling Anisocytosis (manual) Microcytosis (manual) Target Cells Ovalocytes PT INR APTT Puncture Site pCO2 pO2 HCO3 ABG pH ABG Total CO2 ABG O2 Saturation ABG Base Excess Philippe Test ABG Potassium A-a O2 Difference Respiratory Index Sodium 140 Chloride 95 L Glucose Lactate Vent Mode Mechanical Rate FiO2 Tidal Volume PEEP Crit Value Called To Crit Value Called By Crit Value Read Back Blood Gas Notified Time Potassium 4.7 Carbon Dioxide 33 H Anion Gap 16 BUN 66 H Creatinine 3.8 H Est GFR ( Amer) 21 Est GFR (Non-Af Amer) 17 POC Glucose (mg/dL) 297 H 279 H Random Glucose 278 H Hemoglobin A1c Lactic Acid Calcium 7.8 L Phosphorus Magnesium Total Bilirubin 1.6 H AST 29 ALT 37 Alkaline Phosphatase 127 H Ammonia Troponin I Total Protein 6.0 L Albumin 3.0 L Globulin 3.0 Albumin/Globulin Ratio 1.0 Prolactin Arterial Blood Potassium Urine Color Urine Clarity Urine pH Ur Specific [place] Urine Protein Urine Glucose (UA) Urine Ketones Urine Blood Urine Nitrate Urine Bilirubin Urine Urobilinogen Ur Leukocyte Esterase Urine WBC (Auto) Urine RBC (Auto) Ur Squamous Epith Cells Amorphous Sediment Urine Bacteria Hep Bs Antigen Hep Bs Antibody Hepatitis C Antibody Blood Type Antibody Screen 10/16/17 10/16/17 10/16/17 03:46 03:46 03:46 WBC 18.1 H RBC 3.53 L Hgb 9.8 L Hct 31.1 L MCV 88.1 MCH 27.7 MCHC 31.4 L RDW 18.2 H Plt Count 61 L MPV 10.4 Neut % (Auto) 83.1 H Lymph % (Auto) 6.0 L [place] % (Auto) 10.2 H Eos % (Auto) 0.1 Baso % (Auto) 0.6 Neut # (Auto) 15.1 H Lymph # (Auto) 1.1 [place] # (Auto) 1.8 H Eos # (Auto) 0.0 Baso # (Auto) 0.1 Neutrophils % (Manual) Band Neutrophils % Lymphocytes % (Manual) Monocytes % (Manual) Eosinophils % (Manual) Nucleated RBC % Platelet Estimate Large Platelets Polychromasia Hypochromasia (manual) Poikilocytosis (manual Basophilic Stippling Anisocytosis (manual) Microcytosis (manual) Target Cells Ovalocytes PT INR APTT Puncture Site pCO2 pO2 HCO3 ABG pH ABG Total CO2 ABG O2 Saturation ABG Base Excess Philippe Test ABG Potassium A-a O2 Difference Respiratory Index Sodium Chloride Glucose Lactate Vent Mode Mechanical Rate FiO2 Tidal Volume PEEP Crit Value Called To Crit Value Called By Crit Value Read Back Blood Gas Notified Time Potassium Carbon Dioxide Anion Gap BUN Creatinine Est GFR ( Amer) Est GFR (Non-Af Amer) POC Glucose (mg/dL) Random Glucose Hemoglobin A1c Lactic Acid 3.3 H Calcium Phosphorus 7.1 H Magnesium 1.9 Total Bilirubin AST ALT Alkaline Phosphatase Ammonia Troponin I 1.2700 H* Total Protein Albumin Globulin Albumin/Globulin Ratio Prolactin Arterial Blood Potassium Urine Color Urine Clarity Urine pH Ur Specific [place] Urine Protein Urine Glucose (UA) Urine Ketones Urine Blood Urine Nitrate Urine Bilirubin Urine Urobilinogen Ur Leukocyte Esterase Urine WBC (Auto) Urine RBC (Auto) Ur Squamous Epith Cells Amorphous Sediment Urine Bacteria Hep Bs Antigen Hep Bs Antibody Hepatitis C Antibody Blood Type Antibody Screen 10/16/17 10/16/17 10/16/17 03:46 04:20 04:56 WBC RBC Hgb Hct MCV MCH MCHC RDW Plt Count MPV Neut % (Auto) Lymph % (Auto) [place] % (Auto) Eos % (Auto) Baso % (Auto) Neut # (Auto) Lymph # (Auto) [place] # (Auto) Eos # (Auto) Baso # (Auto) Neutrophils % (Manual) Band Neutrophils % Lymphocytes % (Manual) Monocytes % (Manual) Eosinophils % (Manual) Nucleated RBC % Platelet Estimate Large Platelets Polychromasia Hypochromasia (manual) Poikilocytosis (manual Basophilic Stippling Anisocytosis (manual) Microcytosis (manual) Target Cells Ovalocytes PT INR APTT Puncture Site Gertrude pCO2 73 H* pO2 79 L HCO3 26.1 ABG pH 7.24 L ABG Total CO2 33.5 H ABG O2 Saturation 96.0 ABG Base Excess 1.7 Philippe Test Na ABG Potassium 4.1 A-a O2 Difference 543.0 Respiratory Index 6.9 Sodium 138.0 Chloride 100.0 Glucose 256 H Lactate 2.1 Vent Mode Prvc Mechanical Rate 24 FiO2 100.0 Tidal Volume 500 PEEP 5 Crit Value Called To Elan lindquist/rn Crit Value Called By Jeff oliver/rt Crit Value Read Back Y Blood Gas Notified Time 430 Potassium Carbon Dioxide Anion Gap BUN Creatinine Est GFR ( Amer) Est GFR (Non-Af Amer) POC Glucose (mg/dL) 310 H Random Glucose Hemoglobin A1c Lactic Acid Calcium Phosphorus Magnesium Total Bilirubin AST ALT Alkaline Phosphatase Ammonia Troponin I Total Protein Albumin Globulin Albumin/Globulin Ratio Prolactin Arterial Blood Potassium 4.1 Urine Color Urine Clarity Urine pH Ur Specific [place] Urine Protein Urine Glucose (UA) Urine Ketones Urine Blood Urine Nitrate Urine Bilirubin Urine Urobilinogen Ur Leukocyte Esterase Urine WBC (Auto) Urine RBC (Auto) Ur Squamous Epith Cells Amorphous Sediment Urine Bacteria Hep Bs Antigen Hep Bs Antibody Hepatitis C Antibody Blood Type A POSITIVE Antibody Screen Negative 10/16/17 10/16/17 10/16/17 06:15 06:17 06:33 WBC RBC Hgb Hct MCV MCH MCHC RDW Plt Count MPV Neut % (Auto) Lymph % (Auto) [place] % (Auto) Eos % (Auto) Baso % (Auto) Neut # (Auto) Lymph # (Auto) [place] # (Auto) Eos # (Auto) Baso # (Auto) Neutrophils % (Manual) Band Neutrophils % Lymphocytes % (Manual) Monocytes % (Manual) Eosinophils % (Manual) Nucleated RBC % Platelet Estimate Large Platelets Polychromasia Hypochromasia (manual) Poikilocytosis (manual Basophilic Stippling Anisocytosis (manual) Microcytosis (manual) Target Cells Ovalocytes PT INR APTT 57 H Puncture Site [place] pCO2 55 H pO2 100 HCO3 28.8 H ABG pH 7.37 ABG Total CO2 33.5 H ABG O2 Saturation 98.5 H ABG Base Excess 5.0 H Philippe Test Na ABG Potassium 3.9 A-a O2 Difference 544.0 Respiratory Index 5.4 Sodium 138.0 Chloride 102.0 Glucose 240 H Lactate 1.9 Vent Mode Prvc Mechanical Rate 24 FiO2 100.0 Tidal Volume 500 PEEP 5 Crit Value Called To Crit Value Called By Crit Value Read Back Blood Gas Notified Time Potassium Carbon Dioxide Anion Gap BUN Creatinine Est GFR ( Amer) Est GFR (Non-Af Amer) POC Glucose (mg/dL) 182 H Random Glucose Hemoglobin A1c Lactic Acid Calcium Phosphorus Magnesium Total Bilirubin AST ALT Alkaline Phosphatase Ammonia Troponin I Total Protein Albumin Globulin Albumin/Globulin Ratio Prolactin Arterial Blood Potassium 3.9 Urine Color Urine Clarity Urine pH Ur Specific [place] Urine Protein Urine Glucose (UA) Urine Ketones Urine Blood Urine Nitrate Urine Bilirubin Urine Urobilinogen Ur Leukocyte Esterase Urine WBC (Auto) Urine RBC (Auto) Ur Squamous Epith Cells Amorphous Sediment Urine Bacteria Hep Bs Antigen Hep Bs Antibody Hepatitis C Antibody Blood Type Antibody Screen 10/16/17 10/16/17 10/16/17 06:33 06:33 06:51 WBC 16.5 H RBC 3.39 L Hgb 9.5 L Hct 29.7 L MCV 87.5 MCH 27.9 MCHC 31.9 L RDW 18.1 H Plt Count 58 L MPV 10.3 Neut % (Auto) 81.9 H Lymph % (Auto) 7.3 L [place] % (Auto) 9.3 Eos % (Auto) 0.9 Baso % (Auto) 0.6 Neut # (Auto) 13.5 H Lymph # (Auto) 1.2 [place] # (Auto) 1.5 H Eos # (Auto) 0.2 Baso # (Auto) 0.1 Neutrophils % (Manual) 87 H Band Neutrophils % Lymphocytes % (Manual) 5 L Monocytes % (Manual) 7 Eosinophils % (Manual) 1 Nucleated RBC % 3 H Platelet Estimate Decreased L Large Platelets Present Polychromasia Hypochromasia (manual) Slight Poikilocytosis (manual Slight Basophilic Stippling Slight Anisocytosis (manual) Slight Microcytosis (manual) Slight Target Cells Slight Ovalocytes Slight PT INR APTT Puncture Site pCO2 pO2 HCO3 ABG pH ABG Total CO2 ABG O2 Saturation ABG Base Excess Philippe Test ABG Potassium A-a O2 Difference Respiratory Index Sodium 139 Chloride 95 L Glucose Lactate Vent Mode Mechanical Rate FiO2 Tidal Volume PEEP Crit Value Called To Crit Value Called By Crit Value Read Back Blood Gas Notified Time Potassium 4.3 Carbon Dioxide 33 H Anion Gap 15 BUN 66 H Creatinine 3.8 H Est GFR ( Amer) 21 Est GFR (Non-Af Amer) 17 POC Glucose (mg/dL) Random Glucose 234 H Hemoglobin A1c Lactic Acid Calcium 7.6 L Phosphorus 6.8 H Magnesium 1.8 Total Bilirubin 1.5 H AST 23 ALT 33 Alkaline Phosphatase 114 Ammonia < 9 L Troponin I Total Protein 5.7 L Albumin 2.7 L Globulin 3.0 Albumin/Globulin Ratio 0.9 L Prolactin 27.5 H Arterial Blood Potassium Urine Color Urine Clarity Urine pH Ur Specific [place] Urine Protein Urine Glucose (UA) Urine Ketones Urine Blood Urine Nitrate Urine Bilirubin Urine Urobilinogen Ur Leukocyte Esterase Urine WBC (Auto) Urine RBC (Auto) Ur Squamous Epith Cells Amorphous Sediment Urine Bacteria Hep Bs Antigen Hep Bs Antibody Hepatitis C Antibody Blood Type Antibody Screen 10/16/17 10/16/17 10/16/17 06:51 08:17 09:07 WBC RBC Hgb Hct MCV MCH MCHC RDW Plt Count MPV Neut % (Auto) Lymph % (Auto) [place] % (Auto) Eos % (Auto) Baso % (Auto) Neut # (Auto) Lymph # (Auto) [place] # (Auto) Eos # (Auto) Baso # (Auto) Neutrophils % (Manual) Band Neutrophils % Lymphocytes % (Manual) Monocytes % (Manual) Eosinophils % (Manual) Nucleated RBC % Platelet Estimate Large Platelets Polychromasia Hypochromasia (manual) Poikilocytosis (manual Basophilic Stippling Anisocytosis (manual) Microcytosis (manual) Target Cells Ovalocytes PT INR APTT Puncture Site pCO2 pO2 HCO3 ABG pH ABG Total CO2 ABG O2 Saturation ABG Base Excess Philippe Test ABG Potassium A-a O2 Difference Respiratory Index Sodium Chloride Glucose Lactate Vent Mode Mechanical Rate FiO2 Tidal Volume PEEP Crit Value Called To Crit Value Called By Crit Value Read Back Blood Gas Notified Time Potassium Carbon Dioxide Anion Gap BUN Creatinine Est GFR ( Amer) Est GFR (Non-Af Amer) POC Glucose (mg/dL) 222 H 227 H Random Glucose Hemoglobin A1c 9.1 H D Lactic Acid Calcium Phosphorus Magnesium Total Bilirubin AST ALT Alkaline Phosphatase Ammonia Troponin I Total Protein Albumin Globulin Albumin/Globulin Ratio Prolactin Arterial Blood Potassium Urine Color Urine Clarity Urine pH Ur Specific [place] Urine Protein Urine Glucose (UA) Urine Ketones Urine Blood Urine Nitrate Urine Bilirubin Urine Urobilinogen Ur Leukocyte Esterase Urine WBC (Auto) Urine RBC (Auto) Ur Squamous Epith Cells Amorphous Sediment Urine Bacteria Hep Bs Antigen Hep Bs Antibody Hepatitis C Antibody Blood Type Antibody Screen 10/16/17 10/16/17 10:12 11:38 WBC RBC Hgb Hct MCV MCH MCHC RDW Plt Count MPV Neut % (Auto) Lymph % (Auto) [place] % (Auto) Eos % (Auto) Baso % (Auto) Neut # (Auto) Lymph # (Auto) [place] # (Auto) Eos # (Auto) Baso # (Auto) Neutrophils % (Manual) Band Neutrophils % Lymphocytes % (Manual) Monocytes % (Manual) Eosinophils % (Manual) Nucleated RBC % Platelet Estimate Large Platelets Polychromasia Hypochromasia (manual) Poikilocytosis (manual Basophilic Stippling Anisocytosis (manual) Microcytosis (manual) Target Cells Ovalocytes PT INR APTT Puncture Site pCO2 pO2 HCO3 ABG pH ABG Total CO2 ABG O2 Saturation ABG Base Excess Philippe Test ABG Potassium A-a O2 Difference Respiratory Index Sodium Chloride Glucose Lactate Vent Mode Mechanical Rate FiO2 Tidal Volume PEEP Crit Value Called To Crit Value Called By Crit Value Read Back Blood Gas Notified Time Potassium Carbon Dioxide Anion Gap BUN Creatinine Est GFR ( Amer) Est GFR (Non-Af Amer) POC Glucose (mg/dL) 200 H 236 H Random Glucose Hemoglobin A1c Lactic Acid Calcium Phosphorus Magnesium Total Bilirubin AST ALT Alkaline Phosphatase Ammonia Troponin I Total Protein Albumin Globulin Albumin/Globulin Ratio Prolactin Arterial Blood Potassium Urine Color Urine Clarity Urine pH Ur Specific [place] Urine Protein Urine Glucose (UA) Urine Ketones Urine Blood Urine Nitrate Urine Bilirubin Urine Urobilinogen Ur Leukocyte Esterase Urine WBC (Auto) Urine RBC (Auto) Ur Squamous Epith Cells Amorphous Sediment Urine Bacteria Hep Bs Antigen Hep Bs Antibody Hepatitis C Antibody Blood Type Antibody Screen Assessment & Plan - Assessment and Plan (Free Text) Assessment: Palliative consult FULL CODE, there is no Advance directive on chart, PPS 10% I reviewed all medical records, diagnostic studies and examined patient in the bed. Patient is intubated, on MV support, off sedation at this time, unresponsive to verbal and tactile stimuli. Pupils are not responsive to light, absent corneal reflex, absent gag reflex. Patient is S/P EEG this morning, results are pending. Doctor Calvo on board. Deferential diagnoses are anoxic injury and multi organ failure. BP is uncontrolled , SBP 209, HR > 100, irregular. WBC 16.5 down from 25.4, Hb 9.5, Platelets 58, Troponin elevated X 2. Doxycicline Iv, Vibramycin IV and Zosyn IV on board. 2pm Bp down to 141/70, HR 89, Temp 94.9. On cooling blanket. I was not able to meet with family despite few attempts. Patient's aunt was there and will ask patient's and mother to meet with me tomorrow at 10 am. Impression * Chronically ill male with acute respiratory failure on MV support * GCS of 3 * Anoxic brain injury * Thrombocytopenia * Patient's wishes for end of life care are not known Suggestions * Continue MV support * [place] Code Freeze protocol * Neuro per Doctor calvo * Monitor for abnormal bleeding * Family meeting tomorrow at 10 am for goals of care discussion. I will meet with family tomorrow and discuss Code status and other goals of care with family
--- NOTE | 2017-10-16 12:28 | CT ---
Date of service: 10/15/2017 PROCEDURE: CT Chest, Abdomen and Pelvis without intravenous contrast HISTORY: post cpr r/o bleeding COMPARISON: Comparison is made to the previous CT of the chest dated 05/06/[address] of the abdomen and pelvis dated 05/27/2016 TECHNIQUE: Axial and reformatted coronal and sagittal CT images of the chest abdomen and pelvis were obtained without IV contrast administration. Oral contrast was given. Radiation dose: Total exam DLP = 2084.25 mGy-cm. This CT exam was performed using one or more of the following dose reduction techniques: Automated exposure control, adjustment of the mA and/or kV according to patient size, and/or use of iterative reconstruction technique. FINDINGS: CT CHEST WITHOUT CONTRAST: LUNGS: There are scattered foci of airspace consolidation more prominent at the mid and lower lungs new compared to the previous exam. There is also diffuse interstitial septal thickening. The differential consideration includes acute pulmonary edema acute parenchymal hemorrhage or acute pneumonitis. The possibility of aspiration or multifocal pneumonia is less likely but not totally excluded. The patient is status post intubation. The ET tube tip is seen 3 centimeter above the fish. MEDIASTINUM: The thoracic aorta is normal in caliber and shape. Mildly enlarged main pulmonary artery is again noted. The heart is mildly to moderately enlarged. LYMPH NODES: Mediastinal lymphadenopathy is again noted. PLEURA: There is a trace right pleural effusion and questionable trace left pleural effusion. BONES: There is acute nondisplaced fracture at the anterior aspect of the left 5th rib OTHER FINDINGS: NG tube seen extending to the stomach CT ABDOMEN AND PELVIS: LIVER: Heterogeneous liver with cirrhotic minutes station are noted. The assessment of the upper abdomen solid organs is suboptimal due to streak artifacts from the patient's arms. No evidence of discrete mass lesion in the liver allowed for this limitation. GALLBLADDER AND BILE DUCTS: Large gallstones are seen without evidence of acute cholecystitis or biliary obstruction. PANCREAS: Unremarkable. No gross lesion or ductal dilatation. SPLEEN: No normal spleen is noted in this exam. Possible splenium or residual splenic tissue at the left upper quadrant. ADRENALS: Unremarkable. No mass. KIDNEYS AND URETERS: Unremarkable. No hydronephrosis. No solid mass. VASCULATURE: Unremarkable. No aortic aneurysm. BOWEL: Unremarkable. No obstruction. No gross mural thickening. Mild constipation is noted in the ascending and transverse colon. APPENDIX: No evidence of appendicitis. PERITONEUM: Unremarkable. No free fluid. No free air. LYMPH NODES: Unremarkable. No enlarged lymph nodes. BLADDER: Campbell catheter is seen in the collapsed bladder. REPRODUCTIVE: Unremarkable. BONES: No acute fracture. OTHER FINDINGS: There is left femoral central line extending to the left external iliac vein. IMPRESSION: Scattered foci of airspace consolidation more prominent at the mid and lower portion of the lungs. Findings are nonspecific and the differential consideration includes pulmonary edema, acute respiratory distress syndrome, large aspiration, acute diffuse infectious process or parenchymal hemorrhage. Cardiomegaly. Re- demonstration of mediastinal lymphadenopathy. Acute fracture at the anterior aspect of the left 5th rib. No significant interval change in the abdomen and pelvis noted since the previous exam. No evidence of acute pathology in the abdomen and pelvis. Preliminary report was submitted by virtual Radiology .
--- NOTE | 2017-10-16 13:34 | CP.PCM.PN ---
<Maria Elena Gastelum - Last Filed: 10/16/17 16:37> Subjective - Date & Time of Evaluation Date of Evaluation: 10/16/17 Time of Evaluation: 13:33 - Subjective Subjective: Cardiology Progress Note - Dr Maeys Patient seen and examined at bedside. TYRE FITTER was called last night which turned into a code blue. ROSC was achieved and patient is intubated in the ICU. Code Freeze currently in progress. Patient is sedated. ROS not obtained. Objective - Vital Signs/Intake and Output Vital Signs (last 24 hours): Temp Pulse Resp BP Pulse Ox 95.0 F L 113 H 15 168/77 H 92 L 10/16/17 12:00 10/16/17 12:18 10/16/17 12:18 10/16/17 12:18 10/16/17 12:18 Intake and Output: 10/16/17 10/16/17 06:59 18:59 Intake Total 742.2 454.3 Output Total 1040 260 Balance -297.8 194.3 - Medications Medications: Current Medications Albuterol/Ipratropium (Duoneb 3 Mg/0.5 Mg (3 Ml) Ud) 3 ml INH RQ6 [facility] Last Admin: 10/16/17 07:50 Dose: 3 ml Aspirin (Aspirin Chewable) 81 mg PO DAILY [facility] Last Admin: 10/15/17 09:12 Dose: 81 mg Dextrose (Dextrose 50% Inj) 0 ml IV STAT PRN; Protocol PRN Reason: Hypoglycemia Protocol Dextrose (Glutose 15) 0 gm PO ONCE PRN; Protocol PRN Reason: Hypoglycemia Protocol Dextrose (Dextrose 50% Inj) 0 ml IV STAT PRN; Protocol PRN Reason: Hypoglycemia Protocol Dextrose (Glutose 15) 0 gm PO ONCE PRN; Protocol PRN Reason: Hypoglycemia Protocol Glucagon (Glucagen Diagnostic Kit) 0 mg IM STAT PRN; Protocol PRN Reason: Hypoglycemia Protocol Glucagon (Glucagen Diagnostic Kit) 0 mg IM STAT PRN; Protocol PRN Reason: Hypoglycemia Protocol Hydralazine HCl (Apresoline) 10 mg IVP Q6 PRN PRN Reason: keep BP between 160 and 140 Last Admin: 10/16/17 11:43 Dose: 10 mg Dextrose (Dextrose 5% In Water 1000 Ml) 1,000 mls @ 0 mls/hr IV .Q0M PRN; Protocol; Per Protocol PRN Reason: Hypoglycemia Protocol Doxycycline Hyclate 100 mg/ (Sodium Chloride) 100 mls @ 100 mls/hr IVPB Q12H [facility] PRN Reason: Protocol Last Admin: 10/16/17 05:08 Dose: 100 mls/hr Piperacillin Sod/Tazobactam Sod (Zosyn 2.25 Gm Iv Premix) 2.25 gm in 50 mls @ 100 mls/hr IVPB Q6H [facility] PRN Reason: Protocol Last Admin: 10/16/17 11:51 Dose: 100 mls/hr Propofol (Diprivan) 1,000 mg in 100 mls @ 4.307 mls/hr IV .[id number] PRN; Protocol; 5 MCG/KG/MIN PRN Reason: TITRATE PER MD ORDER Last Titration: 10/16/17 12:00 Dose: 20 mcg/kg/min, 17.227 mls/hr Norepinephrine Bitartrate 8 mg (/ Dextrose) 258 mls @ 7.74 mls/hr IV .Q24H PRN ; Protocol; 4 MCG/MIN PRN Reason: TITRATE PER MD ORDER Last Titration: 10/16/17 00:00 Dose: 0 mcg/min, 0 mls/hr Dextrose (Dextrose 5% In Water 1000 Ml) 1,000 mls @ 0 mls/hr IV .Q0M PRN; Protocol; Per Protocol PRN Reason: Hypoglycemia Protocol Cisatracurium Besylate 100 mg/ (Dextrose) 260 mls @ 67.18 mls/hr IV .Q3H53M PRN ; 3 MCG/KG/MIN PRN Reason: Protocol Last Titration: 10/16/17 12:00 Dose: 3 mcg/kg/min, 67.18 mls/hr Fentanyl Citrate 2,500 mcg/ (Sodium Chloride) 250 mls @ 28.71 mls/hr IV .Q8H43M PRN; 2 MCG/KG/HR PRN Reason: Protocol Last Titration: 10/16/17 12:00 Dose: 2 mcg/kg/hr, 28.71 mls/hr Insulin Human Regular (Novolin R) 0 unit SC Q6H [facility] PRN Reason: Protocol Last Admin: 10/16/17 12:50 Dose: 3 units Pantoprazole Sodium (Protonix Inj) 40 mg IVP Q12H [facility] Last Admin: 10/16/17 01:30 Dose: 40 mg Rosuvastatin Calcium (Crestor) 20 mg PO HS [facility] Last Admin: 10/15/17 23:09 Dose: Not Given Sodium Bicarbonate (Sodium Bicarbonate Tab) 650 mg PO TID [facility] Last Admin: 10/15/17 18:01 Dose: 650 mg Sodium Polystyrene Sulfonate (Kayexalate Susp) 30 gm PO BID [facility] Last Admin: 10/15/17 18:53 Dose: 30 gm - Labs Labs: 10/16/17 06:33 10/16/17 06:33 PT 16.2 SECONDS (9.7-12.2) H 10/16/17 00:08 INR 1.5 10/16/17 00:08 APTT 57 SECONDS (21-34) H 10/16/17 06:33 - Constitutional Appears: Chronically Ill - Head Exam Head Exam: ATRAUMATIC, NORMAL INSPECTION Additional comments: Intubated and sedated - ENT Exam ENT Exam: Mucous Membranes Moist - Neck Exam Additional comments: Left IJ central line - Respiratory Exam Respiratory Exam: Decreased Breath Sounds, NORMAL BREATHING PATTERN. absent: Rales, Rhonchi - Cardiovascular Exam Cardiovascular Exam: REGULAR RHYTHM, +S1, +S2 - GI/Abdominal Exam GI & Abdominal Exam: Soft. absent: Tenderness - Extremities Exam Additional comments: left femoral central venous catether - Neurological Exam Neurological Exam: absent: Alert, Awake, Oriented x3 - Skin Skin Exam: Dry, Normal Color Assessment and Plan - Assessment and Plan (Free Text) Assessment: Patient is a 47 year old male with past medical history of chronic diastolic CHF , COPD, DVT, HTN, DM who presented to the ED for shortness of breath and non- productive cough. TYRE FITTER was called on 10/15 which turned into code blue. ROSC was acheieved, patient intubated and sedated in the ICU. Code freeze in progress. Acute Hypoxic Hypercapnic Respiratory Failure -Patient is intubated and sedated -Code Freeze in progress -Management per ICU Dyspnea/History of Chronic Diastolic CHF -BNP on admission was 4820 -CXR on admission showed moderate cardiomegaly, right small pleural effusion ( see full report) -Echocardiogram (10/13) shows LVEF of 66%. Mildly dilated LA. Mild concentric LVH. Abnormal septal motion from RV pressure overload. Sclerotic probably bicuspid aortic valve. Trace AI. Mild MR, TR. Severe pulmonary hypertension. No pericardial effusion seen. -Troponin 0.03 -> 0.39 -> 1.27 -Cardiac Cath 01/2017 showed normal coronaries -Given previous recent cath, troponin elevation likely secondary to CPR -Continue Medical management (ASA, Crestor) -No acute cardiac intervention at this time COPD exacerbation -Intubated and sedated -Duonebs Q6H [facility] Hypertension -Hydralazine 10mg Q6H IVP prn -Maintain SBP between 140 mmHg and 160 mmHg Renal Failure -Patient on hemodialysis -Nephro on consult Diabetes Mellitus -HgA1c 9.1 -Insulin sliding scale and accuchecks Hyperkalemia -Potassium 4.3 today -Kayexalate 10gm PO BID -Continue to monitor Further recommendations from Dr Gerber Gastelum DO PGY-2 <Hugo Mayes - Last Filed: 10/16/17 23:02> Objective - Vital Signs/Intake and Output Vital Signs (last 24 hours): Temp Pulse Resp BP Pulse Ox 93.0 F L 76 24 134/78 94 L 10/16/17 22:00 10/16/17 22:00 10/16/17 22:00 10/16/17 22:00 10/16/17 22:00 Intake and Output: 10/16/17 10/17/17 18:59 06:59 Intake Total 1656.9 490.8 Output Total 2070 3550 Balance -413.1 -3059.2 - Medications Medications: Current Medications Albuterol/Ipratropium (Duoneb 3 Mg/0.5 Mg (3 Ml) Ud) 3 ml INH RQ6 [facility] Last Admin: 10/16/17 19:12 Dose: Not Given Aspirin (Aspirin Chewable) 81 mg PO DAILY [facility] Last Admin: 10/16/17 10:00 Dose: Not Given Dextrose (Dextrose 50% Inj) 0 ml IV STAT PRN; Protocol PRN Reason: Hypoglycemia Protocol Dextrose (Glutose 15) 0 gm PO ONCE PRN; Protocol PRN Reason: Hypoglycemia Protocol Dextrose (Dextrose 50% Inj) 0 ml IV STAT PRN; Protocol PRN Reason: Hypoglycemia Protocol Dextrose (Glutose 15) 0 gm PO ONCE PRN; Protocol PRN Reason: Hypoglycemia Protocol Glucagon (Glucagen Diagnostic Kit) 0 mg IM STAT PRN; Protocol PRN Reason: Hypoglycemia Protocol Glucagon (Glucagen Diagnostic Kit) 0 mg IM STAT PRN; Protocol PRN Reason: Hypoglycemia Protocol Hydralazine HCl (Apresoline) 10 mg IVP Q6 PRN PRN Reason: keep BP between 160 and 140 Last Admin: 10/16/17 11:43 Dose: 10 mg Dextrose (Dextrose 5% In Water 1000 Ml) 1,000 mls @ 0 mls/hr IV .Q0M PRN; Protocol; Per Protocol PRN Reason: Hypoglycemia Protocol Doxycycline Hyclate 100 mg/ (Sodium Chloride) 100 mls @ 100 mls/hr IVPB Q12H [facility] PRN Reason: Protocol Last Admin: 10/16/17 20:00 Dose: Not Given Piperacillin Sod/Tazobactam Sod (Zosyn 2.25 Gm Iv Premix) 2.25 gm in 50 mls @ 100 mls/hr IVPB Q6H [facility] PRN Reason: Protocol Last Admin: 10/16/17 17:30 Dose: Not Given Propofol (Diprivan) 1,000 mg in 100 mls @ 4.307 mls/hr IV .[id number] PRN; Protocol; 5 MCG/KG/MIN PRN Reason: TITRATE PER MD ORDER Last Admin: 10/16/17 19:00 Dose: 15 mcg/kg/min, 12.921 mls/hr Norepinephrine Bitartrate 8 mg (/ Dextrose) 258 mls @ 7.74 mls/hr IV .Q24H PRN ; Protocol; 4 MCG/MIN PRN Reason: TITRATE PER MD ORDER Last Titration: 10/16/17 00:00 Dose: 0 mcg/min, 0 mls/hr Dextrose (Dextrose 5% In Water 1000 Ml) 1,000 mls @ 0 mls/hr IV .Q0M PRN; Protocol; Per Protocol PRN Reason: Hypoglycemia Protocol Cisatracurium Besylate 100 mg/ (Dextrose) 260 mls @ 67.18 mls/hr IV .Q3H53M PRN ; 3 MCG/KG/MIN PRN Reason: Protocol Last Admin: 10/16/17 16:35 Dose: 3 mcg/kg/min, 67.18 mls/hr Fentanyl Citrate 2,500 mcg/ (Sodium Chloride) 250 mls @ 28.71 mls/hr IV .Q8H43M PRN; 2 MCG/KG/HR PRN Reason: Protocol Last Admin: 10/16/17 17:45 Dose: 1 mcg/kg/hr, 14.35 mls/hr Insulin Human Regular (Novolin R) 0 unit SC Q6H [facility] PRN Reason: Protocol Last Admin: 10/16/17 18:00 Dose: Not Given Pantoprazole Sodium (Protonix Inj) 40 mg IVP Q12H [facility] Last Admin: 10/16/17 12:45 Dose: 40 mg Rosuvastatin Calcium (Crestor) 20 mg PO HS [facility] Last Admin: 10/15/17 23:09 Dose: Not Given Sodium Bicarbonate (Sodium Bicarbonate Tab) 650 mg PO TID [facility] Last Admin: 10/16/17 18:00 Dose: Not Given Sodium Polystyrene Sulfonate (Kayexalate Susp) 30 gm PO BID [facility] Last Admin: 10/16/17 18:00 Dose: Not Given - Labs Labs: 10/16/17 06:33 10/16/17 06:33 PT 16.2 SECONDS (9.7-12.2) H 10/16/17 00:08 INR 1.5 10/16/17 00:08 APTT 57 SECONDS (21-34) H 10/16/17 06:33 Assessment and Plan - Assessment and Plan (Free Text) Assessment: Patient seen and evaluated personally by me. Plan of care d/w the medical front desk coordinator and as documented
--- NOTE | 2017-10-16 18:03 | CP.PCM.PN ---
Subjective - Date & Time of Evaluation Date of Evaluation: 10/16/17 Time of Evaluation: 18:00 - Subjective Subjective: Vascular Surgery progress Note for Dr. Ortega This 47M was seen and evaluated this Am at bedside. Code blue yesterday and intubated. Pt currently non responsive to verbal or physical stimuli. Objective - Vital Signs/Intake and Output Vital Signs (last 24 hours): Temp Pulse Resp BP Pulse Ox 92.3 F L 65 24 134/76 98 10/16/17 17:00 10/16/17 17:30 10/16/17 17:30 10/16/17 17:30 10/16/17 17:30 Intake and Output: 10/16/17 10/16/17 06:59 18:59 Intake Total 742.2 1111.1 Output Total 1040 1670 Balance -297.8 -558.9 - Medications Medications: Current Medications Albuterol/Ipratropium (Duoneb 3 Mg/0.5 Mg (3 Ml) Ud) 3 ml INH RQ6 [facility] Last Admin: 10/16/17 13:36 Dose: 3 ml Aspirin (Aspirin Chewable) 81 mg PO DAILY [facility] Last Admin: 10/16/17 10:00 Dose: Not Given Dextrose (Dextrose 50% Inj) 0 ml IV STAT PRN; Protocol PRN Reason: Hypoglycemia Protocol Dextrose (Glutose 15) 0 gm PO ONCE PRN; Protocol PRN Reason: Hypoglycemia Protocol Dextrose (Dextrose 50% Inj) 0 ml IV STAT PRN; Protocol PRN Reason: Hypoglycemia Protocol Dextrose (Glutose 15) 0 gm PO ONCE PRN; Protocol PRN Reason: Hypoglycemia Protocol Glucagon (Glucagen Diagnostic Kit) 0 mg IM STAT PRN; Protocol PRN Reason: Hypoglycemia Protocol Glucagon (Glucagen Diagnostic Kit) 0 mg IM STAT PRN; Protocol PRN Reason: Hypoglycemia Protocol Hydralazine HCl (Apresoline) 10 mg IVP Q6 PRN PRN Reason: keep BP between 160 and 140 Last Admin: 10/16/17 11:43 Dose: 10 mg Dextrose (Dextrose 5% In Water 1000 Ml) 1,000 mls @ 0 mls/hr IV .Q0M PRN; Protocol; Per Protocol PRN Reason: Hypoglycemia Protocol Doxycycline Hyclate 100 mg/ (Sodium Chloride) 100 mls @ 100 mls/hr IVPB Q12H [facility] PRN Reason: Protocol Last Admin: 10/16/17 05:08 Dose: 100 mls/hr Piperacillin Sod/Tazobactam Sod (Zosyn 2.25 Gm Iv Premix) 2.25 gm in 50 mls @ 100 mls/hr IVPB Q6H [facility] PRN Reason: Protocol Last Admin: 10/16/17 17:30 Dose: Not Given Propofol (Diprivan) 1,000 mg in 100 mls @ 4.307 mls/hr IV .[id number] PRN; Protocol; 5 MCG/KG/MIN PRN Reason: TITRATE PER MD ORDER Last Titration: 10/16/17 14:00 Dose: 15 mcg/kg/min, 12.921 mls/hr Norepinephrine Bitartrate 8 mg (/ Dextrose) 258 mls @ 7.74 mls/hr IV .Q24H PRN ; Protocol; 4 MCG/MIN PRN Reason: TITRATE PER MD ORDER Last Titration: 10/16/17 00:00 Dose: 0 mcg/min, 0 mls/hr Dextrose (Dextrose 5% In Water 1000 Ml) 1,000 mls @ 0 mls/hr IV .Q0M PRN; Protocol; Per Protocol PRN Reason: Hypoglycemia Protocol Cisatracurium Besylate 100 mg/ (Dextrose) 260 mls @ 67.18 mls/hr IV .Q3H53M PRN ; 3 MCG/KG/MIN PRN Reason: Protocol Last Admin: 10/16/17 16:35 Dose: 3 mcg/kg/min, 67.18 mls/hr Fentanyl Citrate 2,500 mcg/ (Sodium Chloride) 250 mls @ 28.71 mls/hr IV .Q8H43M PRN; 2 MCG/KG/HR PRN Reason: Protocol Last Admin: 10/16/17 17:45 Dose: 1 mcg/kg/hr, 14.35 mls/hr Insulin Human Regular (Novolin R) 0 unit SC Q6H [facility] PRN Reason: Protocol Last Admin: 10/16/17 12:50 Dose: 3 units Pantoprazole Sodium (Protonix Inj) 40 mg IVP Q12H [facility] Last Admin: 10/16/17 12:45 Dose: 40 mg Rosuvastatin Calcium (Crestor) 20 mg PO HS [facility] Last Admin: 10/15/17 23:09 Dose: Not Given Sodium Bicarbonate (Sodium Bicarbonate Tab) 650 mg PO TID [facility] Last Admin: 10/16/17 14:16 Dose: Not Given Sodium Polystyrene Sulfonate (Kayexalate Susp) 30 gm PO BID [facility] Last Admin: 10/16/17 10:00 Dose: Not Given - Labs Labs: 10/16/17 06:33 10/16/17 06:33 PT 16.2 SECONDS (9.7-12.2) H 10/16/17 00:08 INR 1.5 10/16/17 00:08 APTT 57 SECONDS (21-34) H 10/16/17 06:33 - Constitutional Appears: Other (Unresponsive ) - Eye Exam Eye Exam: absent: EOMI - Respiratory Exam Additional comments: intubated on a ventilator - Cardiovascular Exam Cardiovascular Exam: +S1, +S2 - GI/Abdominal Exam GI & Abdominal Exam: Soft Assessment and Plan - Assessment and Plan (Free Text) Assessment: 47M s/p code blue and ESRD When pt is stabilized will consider permacath further recs per Dr. Jordan Roy PGY3
[2017-10-16 18:36] LABS: FREE T4 1.63 ng/dL (0.78-2.19)
--- NOTE | 2017-10-16 19:14 | CON ---
DATE: 10/16/2017 ATTENDING PHYSICIAN: Dae Long MD The patient is in ICU bed #1. REASON FOR THE CONSULTATION: Change in mental status. CHIEF COMPLAINT: The patient was admitted on 10/13/2017 with history of respiratory dysfunction. During the hospitalization, the patient was found to have hyperkalemia. The patient been treated for BiPAP for his COPD and obesity hypoventilation syndrome. Yesterday around noon, the patient was walking towards his bathroom, he fell on the floor. He was coded. Resuscitation was performed about 20 minutes on the floor. The patient was retrieved and then intubated and sent to ICU for further management. The patient was put on a hypothermic protocol. The patient did have CT of the head as well, been sedated with Versed and propofol at present. PAST MEDICAL HISTORY: COPD, bronchial asthma, diabetes, hypertension, DVT status post filter, history of liver disease, chronic renal disease, nephrotic syndrome, status post splenectomy. PERSONAL HISTORY: Quit smoking 3 years ago. Alcohol history not available. REVIEW OF SYSTEMS: A 12-point system being reviewed. From neuro, change in mental status. PHYSICAL EXAMINATION: VITAL SIGNS: Blood pressure 142/76 with a mean arterial pressure of 98, respiratory rate on vent. Pulse rate 102 regular, temperature 95.5 degrees Fahrenheit. NECK: Supple. HEART: Sounds tachycardic. EXTREMITIES: Both legs are externally rotated and edematous. NEUROLOGIC: The patient on two dual sedative agents. Eyes are closed. On forcible eye opening, conjunctival edema noted. No rolling conjugate gaze noted. No corneal reflex. Pupil are pinpoint size. Gag endotracheal tube there is some grimacing noted. No spontaneous movement noted. As per the nurse, he was moving his both lower extremities, right more than his left. The patient flaccid quadriplegic. No reflexes noted as the plantars are mute. SENSORY EXAMINATION: Not responding to noxious stimuli. A 2+ to 3+ pitting edema on both lower extremities. COORDINATION: Gait is deferred at this time because of the above description. LABORATORY DATA: His workup, CT of the head was done prior to hypothermia protocol. No acute pathology is noted. EKG sinus tachycardia. Blood workup, WBC 16.5, hemoglobin 9.5, hematocrit 29.7, and platelet 58. ABG: A pH is 7.37, pO2 of 100, pCO2 of 55, bicarbonate 33.5 with oxygen saturation of 98.5, glucose 240, and lactate 1.9. Sodium 139, potassium 4.3, chloride 95, bicarbonate 33, BUN 66, creatinine 3.8. GFR 17, glucose 182, lactic acid 3.3, calcium 7.6, phosphorus 6.8, magnesium 1.8. Troponin increased to 1.27 from 0.397. Urine shows 3+ proteinuria 2+ ketonuria, and 2+ hematuria. CONCLUSIONS: 1. Mr. Onel Jasmine has been presenting with as per neurological examination, global cerebral dysfunction with brainstem function all suggestive of possible anoxic encephalopathy as per the history consistent with his history. 2. Considering this hypoxic insult, nonconvulsive status is another possibility since he is on a Versed drip. Continue the present management. 3. Multiorgan failure. RECOMMENDATIONS: 1. Continue the present management, keep the mean arterial pressure around 100. 2. Electroencephalogram is ordered to rule out electrographic seizures. 3. Continue the protocol as per the recommendation for hypothermia. Cardiology followup because of abnormal troponin level. Overall prognosis is poor. The patient will be followed closely with you. Keagan Schmidt MD
--- NOTE | 2017-10-16 19:50 | CARD ---
APPROVED REPORT Date of service: 10/15/2017 EKG Measurement Heart [id number] CT 148P-14 [id number] <Conclusion> Sinus tachycardia Right bundle branch block Abnormal ECG
[2017-10-17] MEDS: (Novolin R) Insulin Human Regular 100 units/ml vial SC SCH ×4 (00:47→18:46)
[2017-10-17] MEDS: Albuterol-Ipratrop 3 mg / 0.5 (3 ml) UD INH SCH ×4 (02:20→19:24)
[2017-10-17] MEDS: Propofol 10 mg/ml 1,000 MG/100 ML VIAL IV PRN ×2 (03:00→13:41)
[2017-10-17 03:08] LABS: BASO # 0.1 K/uL (0.0-0.2); BASO % 0.2 % (0.0-2.0); EOS # 0.7 K/uL (0.0-0.7); EOS % 3.1 % (0.0-4.0); HEMOGLOBIN 11.7 g/dL (12.0-18.0); LYMPH # 1.2 K/uL (1.0-4.3); LYMPH % 5.3 % (20.0-40.0); MEAN CELL VOLUME 86.7 fL (80.0-94.0); MEAN CORPUSCULAR HEMOGLOBIN 27.9 pg (27.0-31.0); MEAN CORPUSCULAR HGB CONC 32.2 g/dL (33.0-37.0); MEAN PLATELET VOLUME 9.7 fL (7.2-11.7); MONO # 1.2 K/uL (0.0-0.8); MONO % 5.3 % (0.0-10.0); NEUT # 19.7 K/uL (1.8-7.0); NEUT % 86.1 % (50.0-75.0); NRBC % 1.1 % (0.0-2.0); PLATELET COUNT 50 K/uL (130-400); RBC 4.19 Mil/uL (4.40-5.90); WHITE BLOOD COUNT 22.9 K/uL (4.8-10.8)
[2017-10-17 03:18] LABS: INR 1.5; PROTHROMBIN TIME 16.6 SECONDS (9.7-12.2)
[2017-10-17 03:40] LABS: ALBUMIN 3.3 g/dL (3.5-5.0); CALCIUM 8.5 mg/dl (8.6-10.4)
[2017-10-17 04:10] LABS: ANISOCYTOSIS SLIGHT; BANDS 4 % (0-2); EOSINOPHIL 3 % (0-4); LYMPHOCYTE 6 % (20-40); MONOCYTE 6 % (0-10); NEUTROPHIL 81 % (50-75); NUCLEATED RED BLOOD CELL 1 % (0-0); PLATELET ESTIMATE NORMAL (NORMAL); POIKILOCYTOSIS SLIGHT; POLYCHROMIC SLIGHT; TOTAL CELLS COUNTED 100
[2017-10-17] MEDS: Piperacill/Tazo 2.25gm in Dex 2.25 GM/50 ML BAG IVPB SCH ×4 (05:06→23:30)
[2017-10-17 05:31] LABS: ARTERIAL BLOOD GAS HCO3 26.3 mmol/L (21-28); ARTERIAL BLOOD GAS O2 SAT 95.6 % (95-98); ARTERIAL BLOOD GAS PCO2 55 mm/Hg (35-45); ARTERIAL BLOOD GAS PH 7.33 (7.35-7.45); ARTERIAL BLOOD GAS PO2 72 mm/Hg (80-100); ARTERIAL BLOOD GAS TCO2 30.7 mmol/L (22-28)
[2017-10-17 06:44] LABS: BASO # 0.1 K/uL (0.0-0.2); BASO % 0.3 % (0.0-2.0); EOS # 0.4 K/uL (0.0-0.7); HEMOGLOBIN 11.5 g/dL (12.0-18.0); LYMPH # 1.3 K/uL (1.0-4.3); LYMPH % 6.3 % (20.0-40.0); MEAN CELL VOLUME 86.8 fL (80.0-94.0); MEAN CORPUSCULAR HEMOGLOBIN 27.8 pg (27.0-31.0); MEAN PLATELET VOLUME 10.3 fL (7.2-11.7); MONO # 1.1 K/uL (0.0-0.8); MONO % 5.1 % (0.0-10.0); NEUT # 18.2 K/uL (1.8-7.0); NEUT % 86.3 % (50.0-75.0); RBC 4.14 Mil/uL (4.40-5.90); RED CELL DISTRIBUTION WIDTH 18.2 % (11.5-14.5); WHITE BLOOD COUNT 21.1 K/uL (4.8-10.8)
[2017-10-17 06:49] LABS: ALBUMIN 3.2 g/dL (3.5-5.0); CALCIUM 8.3 mg/dl (8.6-10.4)
--- NOTE | 2017-10-17 08:54 | EEG ---
DATE: 10/16/2017 This is a 16-channel electroencephalogram of a comatose adult. Study was performed at the bedside. The patient showed diffuse higher amplitude 2 to 3 Hz delta activities, followed with low amplitude 4 to 5 Hz low theta activities noted. There is an EKG artifact noted from the beginning. The low amplitude theta activity is continuously noted from the beginning. There are some focal left frontal activities showed with some higher amplitude theta activities to compare with left side, though it does not carry any clinical significance. The photic stimulation did not evoke driving response noted at the 2 to 20 Hz. IMPRESSION: This is an abnormal electroencephalogram because of persistent slow activities consistent with bilateral cerebral dysfunction. During the study, neither electroencephalographic paroxysmal activities nor focal slowing noted. However, the activities are all contaminated with EKG artifact and loose electrode artifacts in the beginning. There is asymmetry which carries no clinical significance. Keagan Schmidt MD
--- NOTE | 2017-10-17 10:34 | CP.PCM.PN ---
Subjective - Date & Time of Evaluation Date of Evaluation: 10/17/17 Time of Evaluation: 10:33 - Subjective Subjective: events noted s/p code blue being rewarmed after code freeze on hd, estimated uf 3L intubated unresponsive Objective - Vital Signs/Intake and Output Vital Signs (last 24 hours): Temp Pulse Resp BP Pulse Ox 91.4 F L 112 H 24 141/65 91 L 10/17/17 09:00 10/17/17 10:00 10/17/17 09:00 10/17/17 09:00 10/17/17 10:00 Intake and Output: 10/17/17 10/17/17 06:59 18:59 Intake Total 1389.8 329.2 Output Total 3550 75 Balance -2160.2 254.2 - Medications Medications: Current Medications Albuterol/Ipratropium (Duoneb 3 Mg/0.5 Mg (3 Ml) Ud) 3 ml INH RQ6 ANABELLA Last Admin: 10/17/17 07:38 Dose: 3 ml Artificial Tears (Lacri-Lube) 1 gm OU Q4 ANABELLA Aspirin (Aspirin Chewable) 81 mg PO DAILY ANABELLA Last Admin: 10/16/17 10:00 Dose: Not Given Dextrose (Dextrose 50% Inj) 0 ml IV STAT PRN; Protocol PRN Reason: Hypoglycemia Protocol Dextrose (Glutose 15) 0 gm PO ONCE PRN; Protocol PRN Reason: Hypoglycemia Protocol Dextrose (Dextrose 50% Inj) 0 ml IV STAT PRN; Protocol PRN Reason: Hypoglycemia Protocol Dextrose (Glutose 15) 0 gm PO ONCE PRN; Protocol PRN Reason: Hypoglycemia Protocol Glucagon (Glucagen Diagnostic Kit) 0 mg IM STAT PRN; Protocol PRN Reason: Hypoglycemia Protocol Glucagon (Glucagen Diagnostic Kit) 0 mg IM STAT PRN; Protocol PRN Reason: Hypoglycemia Protocol Hydralazine HCl (Apresoline) 10 mg IVP Q6 PRN PRN Reason: keep BP between 160 and 140 Last Admin: 10/17/17 02:45 Dose: 10 mg Dextrose (Dextrose 5% In Water 1000 Ml) 1,000 mls @ 0 mls/hr IV .Q0M PRN; Protocol; Per Protocol PRN Reason: Hypoglycemia Protocol Doxycycline Hyclate 100 mg/ (Sodium Chloride) 100 mls @ 100 mls/hr IVPB Q12H ANABELLA PRN Reason: Protocol Last Admin: 10/17/17 05:06 Dose: 100 mls/hr Piperacillin Sod/Tazobactam Sod (Zosyn 2.25 Gm Iv Premix) 2.25 gm in 50 mls @ 100 mls/hr IVPB Q6H ANABELLA PRN Reason: Protocol Last Admin: 10/17/17 05:06 Dose: 100 mls/hr Propofol (Diprivan) 1,000 mg in 100 mls @ 4.307 mls/hr IV .[id number] PRN; Protocol; 5 MCG/KG/MIN PRN Reason: TITRATE PER MD ORDER Last Titration: 10/17/17 08:12 Dose: 5 mcg/kg/min, 4.307 mls/hr Dextrose (Dextrose 5% In Water 1000 Ml) 1,000 mls @ 0 mls/hr IV .Q0M PRN; Protocol; Per Protocol PRN Reason: Hypoglycemia Protocol Cisatracurium Besylate 100 mg/ (Dextrose) 260 mls @ 67.18 mls/hr IV .Q3H53M PRN ; 3 MCG/KG/MIN PRN Reason: Protocol Last Titration: 10/17/17 07:57 Dose: 0.5 mcg/kg/min, 11.19 mls/hr Fentanyl Citrate 2,500 mcg/ (Sodium Chloride) 250 mls @ 28.71 mls/hr IV .Q8H43M PRN; 2 MCG/KG/HR PRN Reason: Protocol Last Admin: 10/16/17 17:45 Dose: 1 mcg/kg/hr, 14.35 mls/hr Insulin Human Regular (Novolin R) 0 unit SC Q6H ANABELLA PRN Reason: Protocol Last Admin: 10/17/17 05:05 Dose: 4 units Pantoprazole Sodium (Protonix Inj) 40 mg IVP Q12H ANABELLA Last Admin: 10/17/17 01:43 Dose: 40 mg Rosuvastatin Calcium (Crestor) 20 mg PO HS ANABELLA Last Admin: 10/16/17 23:48 Dose: Not Given Sodium Bicarbonate (Sodium Bicarbonate Tab) 650 mg PO TID ANABELLA Last Admin: 10/16/17 18:00 Dose: Not Given - Labs Labs: 10/17/17 06:31 10/17/17 06:31 PT 16.6 SECONDS (9.7-12.2) H 10/17/17 03:04 INR 1.5 10/17/17 03:04 APTT 67 SECONDS (21-34) H D 10/17/17 03:04 - Constitutional Appears: No Acute Distress, Chronically Ill (unresponsive) - Head Exam Head Exam: NORMAL INSPECTION, NORMOCEPHALIC - Eye Exam Eye Exam: Normal appearance - ENT Exam ENT Exam: Normal Exam (et tube) - Neck Exam Neck Exam: Normal Inspection - Respiratory Exam Respiratory Exam: NORMAL BREATHING PATTERN (mechanical vent) - Cardiovascular Exam Cardiovascular Exam: Tachycardia, REGULAR RHYTHM - GI/Abdominal Exam GI & Abdominal Exam: Distended, Soft - Extremities Exam Extremities Exam: Normal Inspection, Pedal Edema - Neurological Exam Neurological Exam: absent: Alert, Awake - Skin Skin Exam: Dry, Intact Assessment and Plan (1) HENRIQUE (acute kidney injury) Status: Acute (2) Anoxic encephalopathy Status: Acute (3) CHF (congestive heart failure) Status: Acute (4) COPD exacerbation Status: Acute (5) Cardiac arrest Status: Acute (6) Hyperkalemia Status: Acute (7) Nephrotic syndrome Status: Acute - Assessment and Plan (Free Text) Assessment: maintain hd tts neuro evaluation supportive care
--- NOTE | 2017-10-17 10:56 | CP.CCUPN ---
<Gwyn Leslie - Last Filed: 10/17/17 14:49> CCU Subjective - Physician Review Subjective (Free Text): Gwyn Leslie DO PGY-1, ICU progress note for Dr. Long Pt seen and examined at bedside. ROS was unobtainable due to pt being intubated and sedated. Pt produced 500 mL of clari colored urine over the past 12 hours. Pt was afebrile overnight. Currently, pt is currently receiving Propofol 20 mcg /hr, Fentanyl 4 mcg/kg/hr. Nimbex was discontinued minutes prior to examination. Pt was in post-cardiac arrest hypothermia protocol yesterday, but he is now being gradually rewarmed. Pt was started on dialysis and noted to be hypotensive, with a MAP in the low 50s/high 40s. Pt was started on Levophed 4 mcg/min/hr to maintain MAP above 60 mmHg. Pt is on PRVC: 500/24RR/100%/5 A 12-point ROS was unobtainable due to intubation and sedation. CCU Objective - Vital Signs / Intake & Output Vital Signs (Last 4 hours): Vital Signs Temp Pulse Resp BP BP Pulse Ox 10/17/17 10:00 91.9 F L 112 H 24 149/67 143/65 91 L 10/17/17 09:00 91.4 F L 92 H 24 141/65 94 L 10/17/17 08:00 91.0 F L 91 H 24 151/67 H 167/67 H 98 10/17/17 07:00 89.8 F L 90 25 H 145/66 93 L Intake and Output (Last 8hrs): Intake & Output 10/16/17 10/17/17 10/17/17 22:59 06:59 14:59 Intake Total 1273.7 679.2 509.9 Output Total 4150 75 Balance -2876.3 679.2 434.9 Weight 148.5 kg Intake: IV 560 100 387 Intake, IV Amount 713.7 579.2 122.9 Left Distal Port Femoral 155.3 114.4 57.5 Left Medial Port Femoral 469.7 179.2 44.0 Left Proximal Port 88.7 85.6 21.4 Femoral Right Upper arm 200 Output: Urine 950 75 Urethral (Campbell) 950 75 Other 3200 Other: # Voids Urethral (Campbell) 150 # Bowel Movements 0 - Physical Exam Physical Exam Limitations: Positive for: Other (intubated and sedated) Head: Positive for: Atraumatic, Normocephalic Pupils: Positive for: Sluggish Conjunctiva: Positive for: Normal, Other ((+) left sided scleral edema) Mouth: Positive for: Moist Mucous Membranes, Other ((+) ETT) Respiratory/Chest: Positive for: Wheezes (scattered), Rhonchi (diffuse), Other ( PRVC 490/24/100/5). Negative for: Good Air Exchange Cardiovascular: Positive for: Regular Rate and Rhythm, Normal S1, S2 Abdomen: Positive for: Distention, Normal Bowel Sounds (in all 4 quadrants), Other (morbid obesity). Negative for: Tenderness (no physical response to deep palpation; likely due to sedation), Peritoneal Signs Upper Extremity: Positive for: Normal Inspection, NORMAL PULSES (3+ bilateral radial pulses), Other ((+) left radial a-line; c/d/i) Lower Extremity: Positive for: Normal Inspection, Edema (3+ pitting edema bilateral lower extremities), Other ((+) left femoral TLC; c/d/i). Negative for : NORMAL PULSES ((+) DP pulses obtained by dopplar bilaterally) Neurological: Negative for: GCS=15 (GCS 3t) Skin: Positive for: Warm (pt is actively being rewarmed from hypothermia protocol), Dry, Normal Color Psychiatric: Positive for: Other (GCS 3t; sedated) - Medications Active Medications: Active Medications Generic Name Dose Route Start Last Admin Trade Name Freq PRN Reason Stop Dose Admin Albuterol/Ipratropium 3 ml 10/15/17 14:00 10/17/17 07:38 Duoneb 3 Mg/0.5 Mg (3 Ml) Ud INH 3 ml RQ6 ANABELLA Administration Artificial Tears 1 gm 10/17/17 08:39 Lacri-Lube OU Q4 ANABELLA Aspirin 81 mg 10/14/17 10:00 10/16/17 10:00 Aspirin Chewable PO Not Given DAILY ANABELLA Dextrose 0 ml 10/13/17 10:07 Dextrose 50% Inj IV STAT PRN Hypoglycemia Protocol Protocol Dextrose 0 gm 10/13/17 10:07 Glutose 15 PO ONCE PRN Hypoglycemia Protocol Protocol Dextrose 0 ml 10/15/17 23:36 Dextrose 50% Inj IV STAT PRN Hypoglycemia Protocol Protocol Dextrose 0 gm 10/15/17 23:36 Glutose 15 PO ONCE PRN Hypoglycemia Protocol Protocol Glucagon 0 mg 10/13/17 10:07 Glucagen Diagnostic Kit IM STAT PRN Hypoglycemia Protocol Protocol Glucagon 0 mg 10/15/17 23:36 Glucagen Diagnostic Kit IM STAT PRN Hypoglycemia Protocol Protocol Hydralazine HCl 10 mg 10/16/17 11:21 10/17/17 02:45 Apresoline IVP 10 mg Q6 PRN Administration keep BP between 160 and 140 Dextrose 1,000 mls @ 0 mls/hr 10/13/17 10:07 Dextrose 5% In Water 1000 Ml IV .Q0M PRN Hypoglycemia Protocol Protocol Per Protocol Doxycycline Hyclate 100 mg/ 100 mls @ 100 mls/hr 10/15/17 18:00 10/17/17 05: 06 Sodium Chloride IVPB 100 mls/hr Q12H ANABELLA Administration Protocol Piperacillin Sod/Tazobactam Sod 2.25 gm in 50 mls @ 100 mls/hr 10/15/17 17:30 10/17/17 05:06 Zosyn 2.25 Gm Iv Premix IVPB 100 mls/hr Q6H ANABELLA Administration Protocol Propofol 1,000 mg in 100 mls @ 4.307 mls/hr 10/15/17 17:17 10/17/17 10:40 Diprivan IV 10 mcg/kg/min .[id number] PRN 8.614 mls/hr TITRATE PER MD ORDER Titration Protocol 5 MCG/KG/MIN Dextrose 1,000 mls @ 0 mls/hr 10/15/17 23:36 Dextrose 5% In Water 1000 Ml IV .Q0M PRN Hypoglycemia Protocol Protocol Per Protocol Cisatracurium Besylate 100 mg/ 260 mls @ 67.18 mls/hr 10/16/17 03:30 09:30 Dextrose IV 0 mcg/kg/min .Q3H53M PRN 0 mls/hr Protocol Titration 3 MCG/KG/MIN Fentanyl Citrate 2,500 mcg/ 250 mls @ 28.71 mls/hr 10/16/17 03:30 10/17/17 10 :50 Sodium Chloride IV 2 mcg/kg/hr .Q8H43M PRN 28.71 mls/hr Protocol Titration 2 MCG/KG/HR Insulin Human Regular 0 unit 10/15/17 18:00 10/17/17 05:05 Novolin R SC 4 units Q6H ANABELLA Administration Protocol Pantoprazole Sodium 40 mg 10/16/17 01:00 10/17/17 01:43 Protonix Inj IVP 40 mg Q12H ANABELLA Administration Rosuvastatin Calcium 20 mg 10/13/17 22:00 10/16/17 23:48 Crestor PO Not Given HS ANABELLA Sodium Bicarbonate 650 mg 10/15/17 10:00 10/16/17 18:00 Sodium Bicarbonate Tab PO Not Given TID ANABELLA - Patient Studies Lab Studies: Microbiology Studies 10/15/17 14:36 MRSA Culture (Admit) - Final Naris MRSA NOT DETECTED 10/15/17 16:40 Blood Culture - Preliminary Blood-Venous NO GROWTH AFTER 24 HOURS 10/15/17 16:00 Blood Culture - Preliminary Blood-Venous NO GROWTH AFTER 24 HOURS 10/15/17 17:35 Urine Culture - Final Urine,Catheterized No Growth (<1,000 CFU/ML) 10/15/17 17:35 Gram Stain - Final Sputum Sputum Culture - Preliminary NORMAL ORAL KWADWO Lab Studies 10/17/17 10/17/17 10/17/17 Range/Units 09:15 08:21 07:44 WBC (4.8-10.8) K/uL RBC (4.40-5.90) Mil/uL Hgb (12.0-18.0) g/dL Hct (35.0-51.0) % MCV (80.0-94.0) fL MCH (27.0-31.0) pg MCHC (33.0-37.0) g/dL RDW (11.5-14.5) % Plt Count (130-400) K/uL MPV (7.2-11.7) fL Neut % (Auto) (50.0-75.0) % Lymph % (Auto) (20.0-40.0) % Wayne % (Auto) (0.0-10.0) % Eos % (Auto) (0.0-4.0) % Baso % (Auto) (0.0-2.0) % Neut # (Auto) (1.8-7.0) K/uL Lymph # (Auto) (1.0-4.3) K/uL Wayne # (Auto) (0.0-0.8) K/uL Eos # (Auto) (0.0-0.7) K/uL Baso # (Auto) (0.0-0.2) K/uL Neutrophils % (Manual) (50-75) % Band Neutrophils % (0-2) % Lymphocytes % (Manual) (20-40) % Monocytes % (Manual) (0-10) % Eosinophils % (Manual) (0-4) % Nucleated RBC % (0-0) % Platelet Estimate (NORMAL) Polychromasia Poikilocytosis (manual Anisocytosis (manual) PT (9.7-12.2) SECONDS INR APTT (21-34) SECONDS Puncture Site pCO2 (35-45) mm/Hg pO2 (80-100) mm/Hg HCO3 (21-28) mmol/L ABG pH (7.35-7.45) ABG Total CO2 (22-28) mmol/L ABG O2 Saturation (95-98) % ABG Base Excess (-2.0-3.0) mmol/L Philippe Test ABG Potassium (3.6-5.2) mmol/L A-a O2 Difference mm/Hg Respiratory Index Glucose (75-110) mg/dl Lactate (0.7-2.1) mmol/L Vent Mode Mechanical Rate FiO2 % Tidal Volume PEEP Sodium (132-148) mmol/L Potassium (3.6-5.2) mmol/L Chloride (98-107) mmol/L Carbon Dioxide (22-30) mmol/L Anion Gap (10-20) BUN (9-20) mg/dL Creatinine (0.8-1.5) mg/dL Est GFR ( Amer) Est GFR (Non-Af Amer) POC Glucose (mg/dL) 272 H 267 H 328 H (65-110) mg/dL Random Glucose (75-110) mg/dL Calcium (8.6-10.4) mg/dl Phosphorus (2.5-4.5) mg/dL Magnesium (1.6-2.3) mg/dL Total Bilirubin (0.2-1.3) mg/dL AST (17-59) U/L ALT (21-72) U/L Alkaline Phosphatase (38-126) U/L Total Protein (6.3-8.3) g/dL Albumin (3.5-5.0) g/dL Globulin (2.2-3.9) gm/dL Albumin/Globulin Ratio (1.0-2.1) Free T4 (0.78-2.19) ng/dL TSH 3rd Generation (0.46-4.68) mIU/L Arterial Blood Potassium (3.6-5.2) mmol/L Hep Bs Antibody (NEGATIVE) 10/17/17 10/17/17 10/17/17 Range/Units 06:31 06:31 05:48 WBC 21.1 H (4.8-10.8) K/uL RBC 4.14 L (4.40-5.90) Mil/uL Hgb 11.5 L (12.0-18.0) g/dL Hct 35.9 (35.0-51.0) % MCV 86.8 (80.0-94.0) fL MCH 27.8 (27.0-31.0) pg MCHC 32.0 L (33.0-37.0) g/dL RDW 18.2 H (11.5-14.5) % Plt Count 53 L (130-400) K/uL MPV 10.3 (7.2-11.7) fL Neut % (Auto) 86.3 H (50.0-75.0) % Lymph % (Auto) 6.3 L (20.0-40.0) % Wayne % (Auto) 5.1 (0.0-10.0) % Eos % (Auto) 2.0 (0.0-4.0) % Baso % (Auto) 0.3 (0.0-2.0) % Neut # (Auto) 18.2 H (1.8-7.0) K/uL Lymph # (Auto) 1.3 (1.0-4.3) K/uL Wayne # (Auto) 1.1 H (0.0-0.8) K/uL Eos # (Auto) 0.4 (0.0-0.7) K/uL Baso # (Auto) 0.1 (0.0-0.2) K/uL Neutrophils % (Manual) (50-75) % Band Neutrophils % (0-2) % Lymphocytes % (Manual) (20-40) % Monocytes % (Manual) (0-10) % Eosinophils % (Manual) (0-4) % Nucleated RBC % (0-0) % Platelet Estimate (NORMAL) Polychromasia Poikilocytosis (manual Anisocytosis (manual) PT (9.7-12.2) SECONDS INR APTT (21-34) SECONDS Puncture Site pCO2 (35-45) mm/Hg pO2 (80-100) mm/Hg HCO3 (21-28) mmol/L ABG pH (7.35-7.45) ABG Total CO2 (22-28) mmol/L ABG O2 Saturation (95-98) % ABG Base Excess (-2.0-3.0) mmol/L Philippe Test ABG Potassium (3.6-5.2) mmol/L A-a O2 Difference mm/Hg Respiratory Index Glucose (75-110) mg/dl Lactate (0.7-2.1) mmol/L Vent Mode Mechanical Rate FiO2 % Tidal Volume PEEP Sodium 136 (132-148) mmol/L Potassium 3.2 L (3.6-5.2) mmol/L Chloride 95 L (98-107) mmol/L Carbon Dioxide 30 (22-30) mmol/L Anion Gap 14 (10-20) BUN 44 H (9-20) mg/dL Creatinine 2.6 H (0.8-1.5) mg/dL Est GFR ( Amer) 32 Est GFR (Non-Af Amer) 26 POC Glucose (mg/dL) 261 H (65-110) mg/dL Random Glucose 272 H (75-110) mg/dL Calcium 8.3 L (8.6-10.4) mg/dl Phosphorus 4.2 (2.5-4.5) mg/dL Magnesium 1.8 (1.6-2.3) mg/dL Total Bilirubin 2.1 H (0.2-1.3) mg/dL AST 28 (17-59) U/L ALT 33 (21-72) U/L Alkaline Phosphatase 141 H (38-126) U/L Total Protein 6.5 (6.3-8.3) g/dL Albumin 3.2 L (3.5-5.0) g/dL Globulin 3.3 (2.2-3.9) gm/dL Albumin/Globulin Ratio 1.0 (1.0-2.1) Free T4 (0.78-2.19) ng/dL TSH 3rd Generation (0.46-4.68) mIU/L Arterial Blood Potassium (3.6-5.2) mmol/L Hep Bs Antibody (NEGATIVE) 10/17/17 10/17/17 10/17/17 Range/Units 05:12 04:46 03:52 WBC (4.8-10.8) K/uL RBC (4.40-5.90) Mil/uL Hgb (12.0-18.0) g/dL Hct (35.0-51.0) % MCV (80.0-94.0) fL MCH (27.0-31.0) pg MCHC (33.0-37.0) g/dL RDW (11.5-14.5) % Plt Count (130-400) K/uL MPV (7.2-11.7) fL Neut % (Auto) (50.0-75.0) % Lymph % (Auto) (20.0-40.0) % Wayne % (Auto) (0.0-10.0) % Eos % (Auto) (0.0-4.0) % Baso % (Auto) (0.0-2.0) % Neut # (Auto) (1.8-7.0) K/uL Lymph # (Auto) (1.0-4.3) K/uL Wayne # (Auto) (0.0-0.8) K/uL Eos # (Auto) (0.0-0.7) K/uL Baso # (Auto) (0.0-0.2) K/uL Neutrophils % (Manual) (50-75) % Band Neutrophils % (0-2) % Lymphocytes % (Manual) (20-40) % Monocytes % (Manual) (0-10) % Eosinophils % (Manual) (0-4) % Nucleated RBC % (0-0) % Platelet Estimate (NORMAL) Polychromasia Poikilocytosis (manual Anisocytosis (manual) PT (9.7-12.2) SECONDS INR APTT (21-34) SECONDS Puncture Site Gertrude pCO2 55 H (35-45) mm/Hg pO2 72 L (80-100) mm/Hg HCO3 26.3 (21-28) mmol/L ABG pH 7.33 L (7.35-7.45) ABG Total CO2 30.7 H (22-28) mmol/L ABG O2 Saturation 95.6 (95-98) % ABG Base Excess 1.9 (-2.0-3.0) mmol/L Philippe Test Na ABG Potassium 2.8 L (3.6-5.2) mmol/L A-a O2 Difference 572.0 mm/Hg Respiratory Index 7.9 Glucose 279 H (75-110) mg/dl Lactate 1.2 (0.7-2.1) mmol/L Vent Mode Prvc Mechanical Rate 24 FiO2 100.0 % Tidal Volume 500 PEEP 5 Sodium 136.0 (132-148) mmol/L Potassium (3.6-5.2) mmol/L Chloride 99.0 (98-107) mmol/L Carbon Dioxide (22-30) mmol/L Anion Gap (10-20) BUN (9-20) mg/dL Creatinine (0.8-1.5) mg/dL Est GFR ( Amer) Est GFR (Non-Af Amer) POC Glucose (mg/dL) 261 H 255 H (65-110) mg/dL Random Glucose (75-110) mg/dL Calcium (8.6-10.4) mg/dl Phosphorus (2.5-4.5) mg/dL Magnesium (1.6-2.3) mg/dL Total Bilirubin (0.2-1.3) mg/dL AST (17-59) U/L ALT (21-72) U/L Alkaline Phosphatase (38-126) U/L Total Protein (6.3-8.3) g/dL Albumin (3.5-5.0) g/dL Globulin (2.2-3.9) gm/dL Albumin/Globulin Ratio (1.0-2.1) Free T4 (0.78-2.19) ng/dL TSH 3rd Generation (0.46-4.68) mIU/L Arterial Blood Potassium 2.8 L (3.6-5.2) mmol/L Hep Bs Antibody (NEGATIVE) 10/17/17 10/17/17 10/17/17 Range/Units 03:25 03:04 03:04 WBC (4.8-10.8) K/uL RBC (4.40-5.90) Mil/uL Hgb (12.0-18.0) g/dL Hct (35.0-51.0) % MCV (80.0-94.0) fL MCH (27.0-31.0) pg MCHC (33.0-37.0) g/dL RDW (11.5-14.5) % Plt Count (130-400) K/uL MPV (7.2-11.7) fL Neut % (Auto) (50.0-75.0) % Lymph % (Auto) (20.0-40.0) % Wayne % (Auto) (0.0-10.0) % Eos % (Auto) (0.0-4.0) % Baso % (Auto) (0.0-2.0) % Neut # (Auto) (1.8-7.0) K/uL Lymph # (Auto) (1.0-4.3) K/uL Wayne # (Auto) (0.0-0.8) K/uL Eos # (Auto) (0.0-0.7) K/uL Baso # (Auto) (0.0-0.2) K/uL Neutrophils % (Manual) (50-75) % Band Neutrophils % (0-2) % Lymphocytes % (Manual) (20-40) % Monocytes % (Manual) (0-10) % Eosinophils % (Manual) (0-4) % Nucleated RBC % (0-0) % Platelet Estimate (NORMAL) Polychromasia Poikilocytosis (manual Anisocytosis (manual) PT 16.6 H (9.7-12.2) SECONDS INR 1.5 APTT 67 H D (21-34) SECONDS Puncture Site pCO2 (35-45) mm/Hg pO2 (80-100) mm/Hg HCO3 (21-28) mmol/L ABG pH (7.35-7.45) ABG Total CO2 (22-28) mmol/L ABG O2 Saturation (95-98) % ABG Base Excess (-2.0-3.0) mmol/L Philippe Test ABG Potassium (3.6-5.2) mmol/L A-a O2 Difference mm/Hg Respiratory Index Glucose (75-110) mg/dl Lactate (0.7-2.1) mmol/L Vent Mode Mechanical Rate FiO2 % Tidal Volume PEEP Sodium 138 (132-148) mmol/L Potassium 3.1 L (3.6-5.2) mmol/L Chloride 96 L (98-107) mmol/L Carbon Dioxide 30 (22-30) mmol/L Anion Gap 15 (10-20) BUN 42 H (9-20) mg/dL Creatinine 2.5 H (0.8-1.5) mg/dL Est GFR ( Amer) 34 Est GFR (Non-Af Amer) 28 POC Glucose (mg/dL) (65-110) mg/dL Random Glucose 248 H (75-110) mg/dL Calcium 8.5 L (8.6-10.4) mg/dl Phosphorus 3.3 (2.5-4.5) mg/dL Magnesium 1.8 (1.6-2.3) mg/dL Total Bilirubin 2.4 H (0.2-1.3) mg/dL AST 30 (17-59) U/L ALT 29 (21-72) U/L Alkaline Phosphatase 152 H D (38-126) U/L Total Protein 6.7 (6.3-8.3) g/dL Albumin 3.3 L D (3.5-5.0) g/dL Globulin 3.4 (2.2-3.9) gm/dL Albumin/Globulin Ratio 1.0 (1.0-2.1) Free T4 (0.78-2.19) ng/dL TSH 3rd Generation (0.46-4.68) mIU/L Arterial Blood Potassium (3.6-5.2) mmol/L Hep Bs Antibody (NEGATIVE) 10/17/17 10/17/17 10/17/17 Range/Units 03:04 02:48 01:41 WBC 22.9 H (4.8-10.8) K/uL RBC 4.19 L (4.40-5.90) Mil/uL Hgb 11.7 L D (12.0-18.0) g/dL Hct 36.4 (35.0-51.0) % MCV 86.7 (80.0-94.0) fL MCH 27.9 (27.0-31.0) pg MCHC 32.2 L (33.0-37.0) g/dL RDW 18.0 H (11.5-14.5) % Plt Count 50 L (130-400) K/uL MPV 9.7 (7.2-11.7) fL Neut % (Auto) 86.1 H (50.0-75.0) % Lymph % (Auto) 5.3 L (20.0-40.0) % Wayne % (Auto) 5.3 (0.0-10.0) % Eos % (Auto) 3.1 (0.0-4.0) % Baso % (Auto) 0.2 (0.0-2.0) % Neut # (Auto) 19.7 H (1.8-7.0) K/uL Lymph # (Auto) 1.2 (1.0-4.3) K/uL Wayne # (Auto) 1.2 H (0.0-0.8) K/uL Eos # (Auto) 0.7 (0.0-0.7) K/uL Baso # (Auto) 0.1 (0.0-0.2) K/uL Neutrophils % (Manual) 81 H (50-75) % Band Neutrophils % 4 H (0-2) % Lymphocytes % (Manual) 6 L (20-40) % Monocytes % (Manual) 6 (0-10) % Eosinophils % (Manual) 3 (0-4) % Nucleated RBC % 1 H (0-0) % Platelet Estimate Normal (NORMAL) Polychromasia Slight Poikilocytosis (manual Slight Anisocytosis (manual) Slight PT (9.7-12.2) SECONDS INR APTT (21-34) SECONDS Puncture Site pCO2 (35-45) mm/Hg pO2 (80-100) mm/Hg HCO3 (21-28) mmol/L ABG pH (7.35-7.45) ABG Total CO2 (22-28) mmol/L ABG O2 Saturation (95-98) % ABG Base Excess (-2.0-3.0) mmol/L Philippe Test ABG Potassium (3.6-5.2) mmol/L A-a O2 Difference mm/Hg Respiratory Index Glucose (75-110) mg/dl Lactate (0.7-2.1) mmol/L Vent Mode Mechanical Rate FiO2 % Tidal Volume PEEP Sodium (132-148) mmol/L Potassium (3.6-5.2) mmol/L Chloride (98-107) mmol/L Carbon Dioxide (22-30) mmol/L Anion Gap (10-20) BUN (9-20) mg/dL Creatinine (0.8-1.5) mg/dL Est GFR ( Amer) Est GFR (Non-Af Amer) POC Glucose (mg/dL) 237 H 233 H (65-110) mg/dL Random Glucose (75-110) mg/dL Calcium (8.6-10.4) mg/dl Phosphorus (2.5-4.5) mg/dL Magnesium (1.6-2.3) mg/dL Total Bilirubin (0.2-1.3) mg/dL AST (17-59) U/L ALT (21-72) U/L Alkaline Phosphatase (38-126) U/L Total Protein (6.3-8.3) g/dL Albumin (3.5-5.0) g/dL Globulin (2.2-3.9) gm/dL Albumin/Globulin Ratio (1.0-2.1) Free T4 (0.78-2.19) ng/dL TSH 3rd Generation (0.46-4.68) mIU/L Arterial Blood Potassium (3.6-5.2) mmol/L Hep Bs Antibody (NEGATIVE) 10/16/17 10/16/17 10/16/17 Range/Units 23:50 22:50 21:34 WBC (4.8-10.8) K/uL RBC (4.40-5.90) Mil/uL Hgb (12.0-18.0) g/dL Hct (35.0-51.0) % MCV (80.0-94.0) fL MCH (27.0-31.0) pg MCHC (33.0-37.0) g/dL RDW (11.5-14.5) % Plt Count (130-400) K/uL MPV (7.2-11.7) fL Neut % (Auto) (50.0-75.0) % Lymph % (Auto) (20.0-40.0) % Wayne % (Auto) (0.0-10.0) % Eos % (Auto) (0.0-4.0) % Baso % (Auto) (0.0-2.0) % Neut # (Auto) (1.8-7.0) K/uL Lymph # (Auto) (1.0-4.3) K/uL Wayne # (Auto) (0.0-0.8) K/uL Eos # (Auto) (0.0-0.7) K/uL Baso # (Auto) (0.0-0.2) K/uL Neutrophils % (Manual) (50-75) % Band Neutrophils % (0-2) % Lymphocytes % (Manual) (20-40) % Monocytes % (Manual) (0-10) % Eosinophils % (Manual) (0-4) % Nucleated RBC % (0-0) % Platelet Estimate (NORMAL) Polychromasia Poikilocytosis (manual Anisocytosis (manual) PT (9.7-12.2) SECONDS INR APTT (21-34) SECONDS Puncture Site pCO2 (35-45) mm/Hg pO2 (80-100) mm/Hg HCO3 (21-28) mmol/L ABG pH (7.35-7.45) ABG Total CO2 (22-28) mmol/L ABG O2 Saturation (95-98) % ABG Base Excess (-2.0-3.0) mmol/L Philippe Test ABG Potassium (3.6-5.2) mmol/L A-a O2 Difference mm/Hg Respiratory Index Glucose (75-110) mg/dl Lactate (0.7-2.1) mmol/L Vent Mode Mechanical Rate FiO2 % Tidal Volume PEEP Sodium (132-148) mmol/L Potassium (3.6-5.2) mmol/L Chloride (98-107) mmol/L Carbon Dioxide (22-30) mmol/L Anion Gap (10-20) BUN (9-20) mg/dL Creatinine (0.8-1.5) mg/dL Est GFR ( Amer) Est GFR (Non-Af Amer) POC Glucose (mg/dL) 204 H 191 H 170 H (65-110) mg/dL Random Glucose (75-110) mg/dL Calcium (8.6-10.4) mg/dl Phosphorus (2.5-4.5) mg/dL Magnesium (1.6-2.3) mg/dL Total Bilirubin (0.2-1.3) mg/dL AST (17-59) U/L ALT (21-72) U/L Alkaline Phosphatase (38-126) U/L Total Protein (6.3-8.3) g/dL Albumin (3.5-5.0) g/dL Globulin (2.2-3.9) gm/dL Albumin/Globulin Ratio (1.0-2.1) Free T4 (0.78-2.19) ng/dL TSH 3rd Generation (0.46-4.68) mIU/L Arterial Blood Potassium (3.6-5.2) mmol/L Hep Bs Antibody (NEGATIVE) 10/16/17 10/16/17 10/16/17 Range/Units 19:10 17:52 16:33 WBC (4.8-10.8) K/uL RBC (4.40-5.90) Mil/uL Hgb (12.0-18.0) g/dL Hct (35.0-51.0) % MCV (80.0-94.0) fL MCH (27.0-31.0) pg MCHC (33.0-37.0) g/dL RDW (11.5-14.5) % Plt Count (130-400) K/uL MPV (7.2-11.7) fL Neut % (Auto) (50.0-75.0) % Lymph % (Auto) (20.0-40.0) % Wayne % (Auto) (0.0-10.0) % Eos % (Auto) (0.0-4.0) % Baso % (Auto) (0.0-2.0) % Neut # (Auto) (1.8-7.0) K/uL Lymph # (Auto) (1.0-4.3) K/uL Wayne # (Auto) (0.0-0.8) K/uL Eos # (Auto) (0.0-0.7) K/uL Baso # (Auto) (0.0-0.2) K/uL Neutrophils % (Manual) (50-75) % Band Neutrophils % (0-2) % Lymphocytes % (Manual) (20-40) % Monocytes % (Manual) (0-10) % Eosinophils % (Manual) (0-4) % Nucleated RBC % (0-0) % Platelet Estimate (NORMAL) Polychromasia Poikilocytosis (manual Anisocytosis (manual) PT (9.7-12.2) SECONDS INR APTT (21-34) SECONDS Puncture Site pCO2 (35-45) mm/Hg pO2 (80-100) mm/Hg HCO3 (21-28) mmol/L ABG pH (7.35-7.45) ABG Total CO2 (22-28) mmol/L ABG O2 Saturation (95-98) % ABG Base Excess (-2.0-3.0) mmol/L Philippe Test ABG Potassium (3.6-5.2) mmol/L A-a O2 Difference mm/Hg Respiratory Index Glucose (75-110) mg/dl Lactate (0.7-2.1) mmol/L Vent Mode Mechanical Rate FiO2 % Tidal Volume PEEP Sodium (132-148) mmol/L Potassium (3.6-5.2) mmol/L Chloride (98-107) mmol/L Carbon Dioxide (22-30) mmol/L Anion Gap (10-20) BUN (9-20) mg/dL Creatinine (0.8-1.5) mg/dL Est GFR ( Amer) Est GFR (Non-Af Amer) POC Glucose (mg/dL) 177 H 188 H (65-110) mg/dL Random Glucose (75-110) mg/dL Calcium (8.6-10.4) mg/dl Phosphorus (2.5-4.5) mg/dL Magnesium (1.6-2.3) mg/dL Total Bilirubin (0.2-1.3) mg/dL AST (17-59) U/L ALT (21-72) U/L Alkaline Phosphatase (38-126) U/L Total Protein (6.3-8.3) g/dL Albumin (3.5-5.0) g/dL Globulin (2.2-3.9) gm/dL Albumin/Globulin Ratio (1.0-2.1) Free T4 1.63 (0.78-2.19) ng/dL TSH 3rd Generation 0.94 (0.46-4.68) mIU/L Arterial Blood Potassium (3.6-5.2) mmol/L Hep Bs Antibody (NEGATIVE) 10/16/17 10/16/17 10/16/17 Range/Units 16:04 15:15 14:23 WBC (4.8-10.8) K/uL RBC (4.40-5.90) Mil/uL Hgb (12.0-18.0) g/dL Hct (35.0-51.0) % MCV (80.0-94.0) fL MCH (27.0-31.0) pg MCHC (33.0-37.0) g/dL RDW (11.5-14.5) % Plt Count (130-400) K/uL MPV (7.2-11.7) fL Neut % (Auto) (50.0-75.0) % Lymph % (Auto) (20.0-40.0) % Wayne % (Auto) (0.0-10.0) % Eos % (Auto) (0.0-4.0) % Baso % (Auto) (0.0-2.0) % Neut # (Auto) (1.8-7.0) K/uL Lymph # (Auto) (1.0-4.3) K/uL Wayne # (Auto) (0.0-0.8) K/uL Eos # (Auto) (0.0-0.7) K/uL Baso # (Auto) (0.0-0.2) K/uL Neutrophils % (Manual) (50-75) % Band Neutrophils % (0-2) % Lymphocytes % (Manual) (20-40) % Monocytes % (Manual) (0-10) % Eosinophils % (Manual) (0-4) % Nucleated RBC % (0-0) % Platelet Estimate (NORMAL) Polychromasia Poikilocytosis (manual Anisocytosis (manual) PT (9.7-12.2) SECONDS INR APTT (21-34) SECONDS Puncture Site pCO2 (35-45) mm/Hg pO2 (80-100) mm/Hg HCO3 (21-28) mmol/L ABG pH (7.35-7.45) ABG Total CO2 (22-28) mmol/L ABG O2 Saturation (95-98) % ABG Base Excess (-2.0-3.0) mmol/L Philippe Test ABG Potassium (3.6-5.2) mmol/L A-a O2 Difference mm/Hg Respiratory Index Glucose (75-110) mg/dl Lactate (0.7-2.1) mmol/L Vent Mode Mechanical Rate FiO2 % Tidal Volume PEEP Sodium (132-148) mmol/L Potassium (3.6-5.2) mmol/L Chloride (98-107) mmol/L Carbon Dioxide (22-30) mmol/L Anion Gap (10-20) BUN (9-20) mg/dL Creatinine (0.8-1.5) mg/dL Est GFR ( Amer) Est GFR (Non-Af Amer) POC Glucose (mg/dL) 242 H 231 H 249 H (65-110) mg/dL Random Glucose (75-110) mg/dL Calcium (8.6-10.4) mg/dl Phosphorus (2.5-4.5) mg/dL Magnesium (1.6-2.3) mg/dL Total Bilirubin (0.2-1.3) mg/dL AST (17-59) U/L ALT (21-72) U/L Alkaline Phosphatase (38-126) U/L Total Protein (6.3-8.3) g/dL Albumin (3.5-5.0) g/dL Globulin (2.2-3.9) gm/dL Albumin/Globulin Ratio (1.0-2.1) Free T4 (0.78-2.19) ng/dL TSH 3rd Generation (0.46-4.68) mIU/L Arterial Blood Potassium (3.6-5.2) mmol/L Hep Bs Antibody (NEGATIVE) 10/16/17 10/16/17 10/16/17 Range/Units 13:48 12:20 11:38 WBC (4.8-10.8) K/uL RBC (4.40-5.90) Mil/uL Hgb (12.0-18.0) g/dL Hct (35.0-51.0) % MCV (80.0-94.0) fL MCH (27.0-31.0) pg MCHC (33.0-37.0) g/dL RDW (11.5-14.5) % Plt Count (130-400) K/uL MPV (7.2-11.7) fL Neut % (Auto) (50.0-75.0) % Lymph % (Auto) (20.0-40.0) % Wayne % (Auto) (0.0-10.0) % Eos % (Auto) (0.0-4.0) % Baso % (Auto) (0.0-2.0) % Neut # (Auto) (1.8-7.0) K/uL Lymph # (Auto) (1.0-4.3) K/uL Wayne # (Auto) (0.0-0.8) K/uL Eos # (Auto) (0.0-0.7) K/uL Baso # (Auto) (0.0-0.2) K/uL Neutrophils % (Manual) (50-75) % Band Neutrophils % (0-2) % Lymphocytes % (Manual) (20-40) % Monocytes % (Manual) (0-10) % Eosinophils % (Manual) (0-4) % Nucleated RBC % (0-0) % Platelet Estimate (NORMAL) Polychromasia Poikilocytosis (manual Anisocytosis (manual) PT (9.7-12.2) SECONDS INR APTT (21-34) SECONDS Puncture Site pCO2 (35-45) mm/Hg pO2 (80-100) mm/Hg HCO3 (21-28) mmol/L ABG pH (7.35-7.45) ABG Total CO2 (22-28) mmol/L ABG O2 Saturation (95-98) % ABG Base Excess (-2.0-3.0) mmol/L Philippe Test ABG Potassium (3.6-5.2) mmol/L A-a O2 Difference mm/Hg Respiratory Index Glucose (75-110) mg/dl Lactate (0.7-2.1) mmol/L Vent Mode Mechanical Rate FiO2 % Tidal Volume PEEP Sodium (132-148) mmol/L Potassium (3.6-5.2) mmol/L Chloride (98-107) mmol/L Carbon Dioxide (22-30) mmol/L Anion Gap (10-20) BUN (9-20) mg/dL Creatinine (0.8-1.5) mg/dL Est GFR ( Amer) Est GFR (Non-Af Amer) POC Glucose (mg/dL) 254 H 235 H 236 H (65-110) mg/dL Random Glucose (75-110) mg/dL Calcium (8.6-10.4) mg/dl Phosphorus (2.5-4.5) mg/dL Magnesium (1.6-2.3) mg/dL Total Bilirubin (0.2-1.3) mg/dL AST (17-59) U/L ALT (21-72) U/L Alkaline Phosphatase (38-126) U/L Total Protein (6.3-8.3) g/dL Albumin (3.5-5.0) g/dL Globulin (2.2-3.9) gm/dL Albumin/Globulin Ratio (1.0-2.1) Free T4 (0.78-2.19) ng/dL TSH 3rd Generation (0.46-4.68) mIU/L Arterial Blood Potassium (3.6-5.2) mmol/L Hep Bs Antibody (NEGATIVE) 10/16/17 10/16/17 10/16/17 Range/Units 10:12 09:07 08:17 WBC (4.8-10.8) K/uL RBC (4.40-5.90) Mil/uL Hgb (12.0-18.0) g/dL Hct (35.0-51.0) % MCV (80.0-94.0) fL MCH (27.0-31.0) pg MCHC (33.0-37.0) g/dL RDW (11.5-14.5) % Plt Count (130-400) K/uL MPV (7.2-11.7) fL Neut % (Auto) (50.0-75.0) % Lymph % (Auto) (20.0-40.0) % Wayne % (Auto) (0.0-10.0) % Eos % (Auto) (0.0-4.0) % Baso % (Auto) (0.0-2.0) % Neut # (Auto) (1.8-7.0) K/uL Lymph # (Auto) (1.0-4.3) K/uL Wayne # (Auto) (0.0-0.8) K/uL Eos # (Auto) (0.0-0.7) K/uL Baso # (Auto) (0.0-0.2) K/uL Neutrophils % (Manual) (50-75) % Band Neutrophils % (0-2) % Lymphocytes % (Manual) (20-40) % Monocytes % (Manual) (0-10) % Eosinophils % (Manual) (0-4) % Nucleated RBC % (0-0) % Platelet Estimate (NORMAL) Polychromasia Poikilocytosis (manual Anisocytosis (manual) PT (9.7-12.2) SECONDS INR APTT (21-34) SECONDS Puncture Site pCO2 (35-45) mm/Hg pO2 (80-100) mm/Hg HCO3 (21-28) mmol/L ABG pH (7.35-7.45) ABG Total CO2 (22-28) mmol/L ABG O2 Saturation (95-98) % ABG Base Excess (-2.0-3.0) mmol/L Philippe Test ABG Potassium (3.6-5.2) mmol/L A-a O2 Difference mm/Hg Respiratory Index Glucose (75-110) mg/dl Lactate (0.7-2.1) mmol/L Vent Mode Mechanical Rate FiO2 % Tidal Volume PEEP Sodium (132-148) mmol/L Potassium (3.6-5.2) mmol/L Chloride (98-107) mmol/L Carbon Dioxide (22-30) mmol/L Anion Gap (10-20) BUN (9-20) mg/dL Creatinine (0.8-1.5) mg/dL Est GFR ( Amer) Est GFR (Non-Af Amer) POC Glucose (mg/dL) 200 H 227 H 222 H (65-110) mg/dL Random Glucose (75-110) mg/dL Calcium (8.6-10.4) mg/dl Phosphorus (2.5-4.5) mg/dL Magnesium (1.6-2.3) mg/dL Total Bilirubin (0.2-1.3) mg/dL AST (17-59) U/L ALT (21-72) U/L Alkaline Phosphatase (38-126) U/L Total Protein (6.3-8.3) g/dL Albumin (3.5-5.0) g/dL Globulin (2.2-3.9) gm/dL Albumin/Globulin Ratio (1.0-2.1) Free T4 (0.78-2.19) ng/dL TSH 3rd Generation (0.46-4.68) mIU/L Arterial Blood Potassium (3.6-5.2) mmol/L Hep Bs Antibody (NEGATIVE) 10/15/17 Range/Units 14:36 WBC (4.8-10.8) K/uL RBC (4.40-5.90) Mil/uL Hgb (12.0-18.0) g/dL Hct (35.0-51.0) % MCV (80.0-94.0) fL MCH (27.0-31.0) pg MCHC (33.0-37.0) g/dL RDW (11.5-14.5) % Plt Count (130-400) K/uL MPV (7.2-11.7) fL Neut % (Auto) (50.0-75.0) % Lymph % (Auto) (20.0-40.0) % Wayne % (Auto) (0.0-10.0) % Eos % (Auto) (0.0-4.0) % Baso % (Auto) (0.0-2.0) % Neut # (Auto) (1.8-7.0) K/uL Lymph # (Auto) (1.0-4.3) K/uL Wayne # (Auto) (0.0-0.8) K/uL Eos # (Auto) (0.0-0.7) K/uL Baso # (Auto) (0.0-0.2) K/uL Neutrophils % (Manual) (50-75) % Band Neutrophils % (0-2) % Lymphocytes % (Manual) (20-40) % Monocytes % (Manual) (0-10) % Eosinophils % (Manual) (0-4) % Nucleated RBC % (0-0) % Platelet Estimate (NORMAL) Polychromasia Poikilocytosis (manual Anisocytosis (manual) PT (9.7-12.2) SECONDS INR APTT (21-34) SECONDS Puncture Site pCO2 (35-45) mm/Hg pO2 (80-100) mm/Hg HCO3 (21-28) mmol/L ABG pH (7.35-7.45) ABG Total CO2 (22-28) mmol/L ABG O2 Saturation (95-98) % ABG Base Excess (-2.0-3.0) mmol/L Philippe Test ABG Potassium (3.6-5.2) mmol/L A-a O2 Difference mm/Hg Respiratory Index Glucose (75-110) mg/dl Lactate (0.7-2.1) mmol/L Vent Mode Mechanical Rate FiO2 % Tidal Volume PEEP Sodium (132-148) mmol/L Potassium (3.6-5.2) mmol/L Chloride (98-107) mmol/L Carbon Dioxide (22-30) mmol/L Anion Gap (10-20) BUN (9-20) mg/dL Creatinine (0.8-1.5) mg/dL Est GFR ( Amer) Est GFR (Non-Af Amer) POC Glucose (mg/dL) (65-110) mg/dL Random Glucose (75-110) mg/dL Calcium (8.6-10.4) mg/dl Phosphorus (2.5-4.5) mg/dL Magnesium (1.6-2.3) mg/dL Total Bilirubin (0.2-1.3) mg/dL AST (17-59) U/L ALT (21-72) U/L Alkaline Phosphatase (38-126) U/L Total Protein (6.3-8.3) g/dL Albumin (3.5-5.0) g/dL Globulin (2.2-3.9) gm/dL Albumin/Globulin Ratio (1.0-2.1) Free T4 (0.78-2.19) ng/dL TSH 3rd Generation (0.46-4.68) mIU/L Arterial Blood Potassium (3.6-5.2) mmol/L Hep Bs Antibody Positive (NEGATIVE) Laboratory Results - last 24 hr 10/15/17 10/16/17 10/16/17 14:36 08:17 09:07 WBC RBC Hgb Hct MCV MCH MCHC RDW Plt Count MPV Neut % (Auto) Lymph % (Auto) Wayne % (Auto) Eos % (Auto) Baso % (Auto) Neut # (Auto) Lymph # (Auto) Wayne # (Auto) Eos # (Auto) Baso # (Auto) Neutrophils % (Manual) Band Neutrophils % Lymphocytes % (Manual) Monocytes % (Manual) Eosinophils % (Manual) Nucleated RBC % Platelet Estimate Polychromasia Poikilocytosis (manual Anisocytosis (manual) PT INR APTT Puncture Site pCO2 pO2 HCO3 ABG pH ABG Total CO2 ABG O2 Saturation ABG Base Excess Philippe Test ABG Potassium A-a O2 Difference Respiratory Index Glucose Lactate Vent Mode Mechanical Rate FiO2 Tidal Volume PEEP Sodium Potassium Chloride Carbon Dioxide Anion Gap BUN Creatinine Est GFR ( Amer) Est GFR (Non-Af Amer) POC Glucose (mg/dL) 222 H 227 H Random Glucose Calcium Phosphorus Magnesium Total Bilirubin AST ALT Alkaline Phosphatase Total Protein Albumin Globulin Albumin/Globulin Ratio Free T4 TSH 3rd Generation Arterial Blood Potassium Hep Bs Antibody Positive 10/16/17 10/16/17 10/16/17 10:12 11:38 12:20 WBC RBC Hgb Hct MCV MCH MCHC RDW Plt Count MPV Neut % (Auto) Lymph % (Auto) Wayne % (Auto) Eos % (Auto) Baso % (Auto) Neut # (Auto) Lymph # (Auto) Wayne # (Auto) Eos # (Auto) Baso # (Auto) Neutrophils % (Manual) Band Neutrophils % Lymphocytes % (Manual) Monocytes % (Manual) Eosinophils % (Manual) Nucleated RBC % Platelet Estimate Polychromasia Poikilocytosis (manual Anisocytosis (manual) PT INR APTT Puncture Site pCO2 pO2 HCO3 ABG pH ABG Total CO2 ABG O2 Saturation ABG Base Excess Philippe Test ABG Potassium A-a O2 Difference Respiratory Index Glucose Lactate Vent Mode Mechanical Rate FiO2 Tidal Volume PEEP Sodium Potassium Chloride Carbon Dioxide Anion Gap BUN Creatinine Est GFR ( Amer) Est GFR (Non-Af Amer) POC Glucose (mg/dL) 200 H 236 H 235 H Random Glucose Calcium Phosphorus Magnesium Total Bilirubin AST ALT Alkaline Phosphatase Total Protein Albumin Globulin Albumin/Globulin Ratio Free T4 TSH 3rd Generation Arterial Blood Potassium Hep Bs Antibody 10/16/17 10/16/17 10/16/17 13:48 14:23 15:15 WBC RBC Hgb Hct MCV MCH MCHC RDW Plt Count MPV Neut % (Auto) Lymph % (Auto) Wayne % (Auto) Eos % (Auto) Baso % (Auto) Neut # (Auto) Lymph # (Auto) Wayne # (Auto) Eos # (Auto) Baso # (Auto) Neutrophils % (Manual) Band Neutrophils % Lymphocytes % (Manual) Monocytes % (Manual) Eosinophils % (Manual) Nucleated RBC % Platelet Estimate Polychromasia Poikilocytosis (manual Anisocytosis (manual) PT INR APTT Puncture Site pCO2 pO2 HCO3 ABG pH ABG Total CO2 ABG O2 Saturation ABG Base Excess Philippe Test ABG Potassium A-a O2 Difference Respiratory Index Glucose Lactate Vent Mode Mechanical Rate FiO2 Tidal Volume PEEP Sodium Potassium Chloride Carbon Dioxide Anion Gap BUN Creatinine Est GFR ( Amer) Est GFR (Non-Af Amer) POC Glucose (mg/dL) 254 H 249 H 231 H Random Glucose Calcium Phosphorus Magnesium Total Bilirubin AST ALT Alkaline Phosphatase Total Protein Albumin Globulin Albumin/Globulin Ratio Free T4 TSH 3rd Generation Arterial Blood Potassium Hep Bs Antibody 10/16/17 10/16/17 10/16/17 16:04 16:33 17:52 WBC RBC Hgb Hct MCV MCH MCHC RDW Plt Count MPV Neut % (Auto) Lymph % (Auto) Wayne % (Auto) Eos % (Auto) Baso % (Auto) Neut # (Auto) Lymph # (Auto) Wayne # (Auto) Eos # (Auto) Baso # (Auto) Neutrophils % (Manual) Band Neutrophils % Lymphocytes % (Manual) Monocytes % (Manual) Eosinophils % (Manual) Nucleated RBC % Platelet Estimate Polychromasia Poikilocytosis (manual Anisocytosis (manual) PT INR APTT Puncture Site pCO2 pO2 HCO3 ABG pH ABG Total CO2 ABG O2 Saturation ABG Base Excess Philippe Test ABG Potassium A-a O2 Difference Respiratory Index Glucose Lactate Vent Mode Mechanical Rate FiO2 Tidal Volume PEEP Sodium Potassium Chloride Carbon Dioxide Anion Gap BUN Creatinine Est GFR ( Amer) Est GFR (Non-Af Amer) POC Glucose (mg/dL) 242 H 188 H Random Glucose Calcium Phosphorus Magnesium Total Bilirubin AST ALT Alkaline Phosphatase Total Protein Albumin Globulin Albumin/Globulin Ratio Free T4 1.63 TSH 3rd Generation 0.94 Arterial Blood Potassium Hep Bs Antibody 10/16/17 10/16/17 10/16/17 19:10 21:34 22:50 WBC RBC Hgb Hct MCV MCH MCHC RDW Plt Count MPV Neut % (Auto) Lymph % (Auto) Wayne % (Auto) Eos % (Auto) Baso % (Auto) Neut # (Auto) Lymph # (Auto) Wayne # (Auto) Eos # (Auto) Baso # (Auto) Neutrophils % (Manual) Band Neutrophils % Lymphocytes % (Manual) Monocytes % (Manual) Eosinophils % (Manual) Nucleated RBC % Platelet Estimate Polychromasia Poikilocytosis (manual Anisocytosis (manual) PT INR APTT Puncture Site pCO2 pO2 HCO3 ABG pH ABG Total CO2 ABG O2 Saturation ABG Base Excess Philippe Test ABG Potassium A-a O2 Difference Respiratory Index Glucose Lactate Vent Mode Mechanical Rate FiO2 Tidal Volume PEEP Sodium Potassium Chloride Carbon Dioxide Anion Gap BUN Creatinine Est GFR ( Amer) Est GFR (Non-Af Amer) POC Glucose (mg/dL) 177 H 170 H 191 H Random Glucose Calcium Phosphorus Magnesium Total Bilirubin AST ALT Alkaline Phosphatase Total Protein Albumin Globulin Albumin/Globulin Ratio Free T4 TSH 3rd Generation Arterial Blood Potassium Hep Bs Antibody 10/16/17 10/17/17 10/17/17 23:50 01:41 02:48 WBC RBC Hgb Hct MCV MCH MCHC RDW Plt Count MPV Neut % (Auto) Lymph % (Auto) Wayne % (Auto) Eos % (Auto) Baso % (Auto) Neut # (Auto) Lymph # (Auto) Wayne # (Auto) Eos # (Auto) Baso # (Auto) Neutrophils % (Manual) Band Neutrophils % Lymphocytes % (Manual) Monocytes % (Manual) Eosinophils % (Manual) Nucleated RBC % Platelet Estimate Polychromasia Poikilocytosis (manual Anisocytosis (manual) PT INR APTT Puncture Site pCO2 pO2 HCO3 ABG pH ABG Total CO2 ABG O2 Saturation ABG Base Excess Philippe Test ABG Potassium A-a O2 Difference Respiratory Index Glucose Lactate Vent Mode Mechanical Rate FiO2 Tidal Volume PEEP Sodium Potassium Chloride Carbon Dioxide Anion Gap BUN Creatinine Est GFR ( Amer) Est GFR (Non-Af Amer) POC Glucose (mg/dL) 204 H 233 H 237 H Random Glucose Calcium Phosphorus Magnesium Total Bilirubin AST ALT Alkaline Phosphatase Total Protein Albumin Globulin Albumin/Globulin Ratio Free T4 TSH 3rd Generation Arterial Blood Potassium Hep Bs Antibody 10/17/17 10/17/17 10/17/17 03:04 03:04 03:04 WBC 22.9 H RBC 4.19 L Hgb 11.7 L D Hct 36.4 MCV 86.7 MCH 27.9 MCHC 32.2 L RDW 18.0 H Plt Count 50 L MPV 9.7 Neut % (Auto) 86.1 H Lymph % (Auto) 5.3 L Wayne % (Auto) 5.3 Eos % (Auto) 3.1 Baso % (Auto) 0.2 Neut # (Auto) 19.7 H Lymph # (Auto) 1.2 Wayne # (Auto) 1.2 H Eos # (Auto) 0.7 Baso # (Auto) 0.1 Neutrophils % (Manual) 81 H Band Neutrophils % 4 H Lymphocytes % (Manual) 6 L Monocytes % (Manual) 6 Eosinophils % (Manual) 3 Nucleated RBC % 1 H Platelet Estimate Normal Polychromasia Slight Poikilocytosis (manual Slight Anisocytosis (manual) Slight PT 16.6 H INR 1.5 APTT 67 H D Puncture Site pCO2 pO2 HCO3 ABG pH ABG Total CO2 ABG O2 Saturation ABG Base Excess Philippe Test ABG Potassium A-a O2 Difference Respiratory Index Glucose Lactate Vent Mode Mechanical Rate FiO2 Tidal Volume PEEP Sodium Potassium Chloride Carbon Dioxide Anion Gap BUN Creatinine Est GFR ( Amer) Est GFR (Non-Af Amer) POC Glucose (mg/dL) Random Glucose Calcium Phosphorus 3.3 Magnesium 1.8 Total Bilirubin AST ALT Alkaline Phosphatase Total Protein Albumin Globulin Albumin/Globulin Ratio Free T4 TSH 3rd Generation Arterial Blood Potassium Hep Bs Antibody 10/17/17 10/17/17 10/17/17 03:25 03:52 04:46 WBC RBC Hgb Hct MCV MCH MCHC RDW Plt Count MPV Neut % (Auto) Lymph % (Auto) Wayne % (Auto) Eos % (Auto) Baso % (Auto) Neut # (Auto) Lymph # (Auto) Wayne # (Auto) Eos # (Auto) Baso # (Auto) Neutrophils % (Manual) Band Neutrophils % Lymphocytes % (Manual) Monocytes % (Manual) Eosinophils % (Manual) Nucleated RBC % Platelet Estimate Polychromasia Poikilocytosis (manual Anisocytosis (manual) PT INR APTT Puncture Site pCO2 pO2 HCO3 ABG pH ABG Total CO2 ABG O2 Saturation ABG Base Excess Philippe Test ABG Potassium A-a O2 Difference Respiratory Index Glucose Lactate Vent Mode Mechanical Rate FiO2 Tidal Volume PEEP Sodium 138 Potassium 3.1 L Chloride 96 L Carbon Dioxide 30 Anion Gap 15 BUN 42 H Creatinine 2.5 H Est GFR ( Amer) 34 Est GFR (Non-Af Amer) 28 POC Glucose (mg/dL) 255 H 261 H Random Glucose 248 H Calcium 8.5 L Phosphorus Magnesium Total Bilirubin 2.4 H AST 30 ALT 29 Alkaline Phosphatase 152 H D Total Protein 6.7 Albumin 3.3 L D Globulin 3.4 Albumin/Globulin Ratio 1.0 Free T4 TSH 3rd Generation Arterial Blood Potassium Hep Bs Antibody 10/17/17 10/17/17 10/17/17 05:12 05:48 06:31 WBC 21.1 H RBC 4.14 L Hgb 11.5 L Hct 35.9 MCV 86.8 MCH 27.8 MCHC 32.0 L RDW 18.2 H Plt Count 53 L MPV 10.3 Neut % (Auto) 86.3 H Lymph % (Auto) 6.3 L Wayne % (Auto) 5.1 Eos % (Auto) 2.0 Baso % (Auto) 0.3 Neut # (Auto) 18.2 H Lymph # (Auto) 1.3 Wayne # (Auto) 1.1 H Eos # (Auto) 0.4 Baso # (Auto) 0.1 Neutrophils % (Manual) Band Neutrophils % Lymphocytes % (Manual) Monocytes % (Manual) Eosinophils % (Manual) Nucleated RBC % Platelet Estimate Polychromasia Poikilocytosis (manual Anisocytosis (manual) PT INR APTT Puncture Site Barnum pCO2 55 H pO2 72 L HCO3 26.3 ABG pH 7.33 L ABG Total CO2 30.7 H ABG O2 Saturation 95.6 ABG Base Excess 1.9 Philippe Test Na ABG Potassium 2.8 L A-a O2 Difference 572.0 Respiratory Index 7.9 Glucose 279 H Lactate 1.2 Vent Mode Prvc Mechanical Rate 24 FiO2 100.0 Tidal Volume 500 PEEP 5 Sodium 136.0 Potassium Chloride 99.0 Carbon Dioxide Anion Gap BUN Creatinine Est GFR ( Amer) Est GFR (Non-Af Amer) POC Glucose (mg/dL) 261 H Random Glucose Calcium Phosphorus Magnesium Total Bilirubin AST ALT Alkaline Phosphatase Total Protein Albumin Globulin Albumin/Globulin Ratio Free T4 TSH 3rd Generation Arterial Blood Potassium 2.8 L Hep Bs Antibody 10/17/17 10/17/17 10/17/17 06:31 07:44 08:21 WBC RBC Hgb Hct MCV MCH MCHC RDW Plt Count MPV Neut % (Auto) Lymph % (Auto) Wayne % (Auto) Eos % (Auto) Baso % (Auto) Neut # (Auto) Lymph # (Auto) Wayne # (Auto) Eos # (Auto) Baso # (Auto) Neutrophils % (Manual) Band Neutrophils % Lymphocytes % (Manual) Monocytes % (Manual) Eosinophils % (Manual) Nucleated RBC % Platelet Estimate Polychromasia Poikilocytosis (manual Anisocytosis (manual) PT INR APTT Puncture Site pCO2 pO2 HCO3 ABG pH ABG Total CO2 ABG O2 Saturation ABG Base Excess Philippe Test ABG Potassium A-a O2 Difference Respiratory Index Glucose Lactate Vent Mode Mechanical Rate FiO2 Tidal Volume PEEP Sodium 136 Potassium 3.2 L Chloride 95 L Carbon Dioxide 30 Anion Gap 14 BUN 44 H Creatinine 2.6 H Est GFR ( Amer) 32 Est GFR (Non-Af Amer) 26 POC Glucose (mg/dL) 328 H 267 H Random Glucose 272 H Calcium 8.3 L Phosphorus 4.2 Magnesium 1.8 Total Bilirubin 2.1 H AST 28 ALT 33 Alkaline Phosphatase 141 H Total Protein 6.5 Albumin 3.2 L Globulin 3.3 Albumin/Globulin Ratio 1.0 Free T4 TSH 3rd Generation Arterial Blood Potassium Hep Bs Antibody 10/17/17 09:15 WBC RBC Hgb Hct MCV MCH MCHC RDW Plt Count MPV Neut % (Auto) Lymph % (Auto) Wayne % (Auto) Eos % (Auto) Baso % (Auto) Neut # (Auto) Lymph # (Auto) Wayne # (Auto) Eos # (Auto) Baso # (Auto) Neutrophils % (Manual) Band Neutrophils % Lymphocytes % (Manual) Monocytes % (Manual) Eosinophils % (Manual) Nucleated RBC % Platelet Estimate Polychromasia Poikilocytosis (manual Anisocytosis (manual) PT INR APTT Puncture Site pCO2 pO2 HCO3 ABG pH ABG Total CO2 ABG O2 Saturation ABG Base Excess Philippe Test ABG Potassium A-a O2 Difference Respiratory Index Glucose Lactate Vent Mode Mechanical Rate FiO2 Tidal Volume PEEP Sodium Potassium Chloride Carbon Dioxide Anion Gap BUN Creatinine Est GFR ( Amer) Est GFR (Non-Af Amer) POC Glucose (mg/dL) 272 H Random Glucose Calcium Phosphorus Magnesium Total Bilirubin AST ALT Alkaline Phosphatase Total Protein Albumin Globulin Albumin/Globulin Ratio Free T4 TSH 3rd Generation Arterial Blood Potassium Hep Bs Antibody Fingerstick Blood Sugar Results: 188 Review of Systems - Review of Systems Systems not reviewed;Unavailable: Intubated All systems: reviewed and no additional remarkable complaints except (see hpi) Critical Care Progress Note - Ventilator Checklist Head of Bed 30 Degrees: Yes Daily Sedation Vacation: Yes Daily Assessment of Readiness to Wean: Yes Daily Spontaneous Breathing Trial: Yes PUD Prophalyxis: Yes DVT Prophylaxis: Yes Oral Care with Chlorhexidine Gluconate {CHG}: Yes - Vent Settings MODE:: PRVC TIDAL VOLUME:: 500 RESP RATE:: 24 FIO2:: 100 PEEP:: 5 - Extremities/Vascular Does the Patient have a Central Venous Catheter?: Yes - Restraints Justification for Restraints: High risk for self extubation, High risk for harming self - Prophylaxis GI Prophylaxis GI: PPI Assessment/Plan - Assessment and Plan (Free Text) Assessment: This is a 47 year old male with PMH of COPD, DM, HTN, CKD, chronic liver disease and DVT s/p IVC filter, splenectomy who presented to the ED c/o SOB, "just like usual," and was admitted for mild respiratory distress with wheezes, retractions and hyperkalemia. Pt was in [facility] and received first time hemodialysis. Pt was managed on the medical floor until [facility] was called on 10/15 due to no pulse. Pt was noted to be in asystole and was subsequently given CPR for 15-20 min. Pt was intubated at that time for airway control. Pt was transferred to the ICU for management after ROSC was achieved. ABG showed pH 6.97, PCO2 130. Pt remains intubated and sedated, with improvement of ABG to baseline chronic respiratory acidosis, compensated. Pt was noted to become hypotensive (MAP in the low 50s/high 40s) and was placed on a Levophed gtt to maintain MAP above 60 mmHg. Neuro: - Monitor for mental status changes - Continue Fentanyl, Propofol for sedation - nimbex has been discontinued - daily sedation weaning - Head CT (10/16) shows no intracranial hemorrhage. Chornic pansinusitis. Air- fluid levels in maxillary antra bilaterally, nonspecific. Left frontal osteoma. Bilateral mastoid effusion. - repeat head ct tomorrow - f/u neuro recs Cardio: - Echocardiogram (10/13) shows LVEF of 66%. Mildly dilated LA. Mild concentric LVH. Abnormal septal motion from RV pressure overload. Sclerotic probably bicuspid aortic valve. Trace AI. Mild MR, TR. Severe pulmonary hypertension. No pericardial effusion seen. - Maintain SBP between 140 mmHg and 160 mmHg - Maintain MAP>60mmHg - levophed gtt - pt is being rewarmed, hypotension is anticipated due to vasodilation - f/u cardiology recs Pulm: - CXR (10/17) shows worsening pulmonary edema, likely aspiration pneumonia - continue doxyxycline, zosyn - continue PRVC (500/24/100%/5); daily ventilation weaning - ABG shows chronic respiratory acidosis; compensated - paO2 is 72; pt is chronically hypoxic due to fibrotic disease - HoB >30 degrees - oral care - maintain spo2>90% GI: - Abd/Chest/pelv Ct (10/15) shows scattered foci of airspace consolidation more prominent at the mid and lower portion of the lungs. Findings are nonspecific. Cardiomegaly. Re-demonstration of mediastinal lymphadenopathy. Acute fracture at the anterior aspect of the left 5th rib. No significant interval change in the abdomen and pelvis is noted since the previous exam. No evidence of acute pathology in the abdomen and pelvis. - Protonix for GI ppx Renal: - maintain euvolemia - ckd - replete electrolytes as needed - Pt is receiving dialysis today (--); last dialyzed yesterday - f/u nephro recs Endo: - maintain euglycemia - ISS medium - accucheck q1h Heme: - H/H stable - thrombocytopenia at 47; no active bleeding, no need for transfusion at this time - f/u peripheral smear - fibrinogen is 684, FDP is greater than 40; likely not DIC - Pt last received Eliquis (10/15), PTT is currently elevated at 67. Anticoagulation is not needed at this time. ID: - continue doxycycline, zosyn - pneumonia; leukocytosis is downtrending - procalcitonin is elevated at 23.43; will trend - Urine culture final shows no growth - Sputum gram strain final shows rare gram positive bacilli and moderate PMN WBCs - sputum cx prelim shows normal oral kwadwo PPX: Protonix for GI; eliquis was last given (10/15) PTT is therapeutic at this time, SCDs Dispo: Continue ICU care Case was reviewed and discussed with attending physician, Dr. Cruz <Alex Cruz - Last Filed: 10/18/17 16:50> CCU Objective - Vital Signs / Intake & Output Vital Signs (Last 4 hours): Vital Signs Temp Pulse Resp BP Pulse Ox 10/17/17 18:06 119 H 24 103/64 97 10/17/17 18:04 98.7 F 10/17/17 18:00 121 H 24 91 L 10/17/17 17:36 120 H 24 98/55 L 91 L 10/17/17 17:30 119 H 24 90 L 10/17/17 17:07 115 H 24 89/53 L 94 L 10/17/17 17:06 115 H 24 85/52 L 94 L 10/17/17 17:00 113 H 25 H 91 L 10/17/17 16:38 110 H 21 82/44 L 95 10/17/17 16:30 112 H 24 94 L 10/17/17 16:10 114 H 100/42 L 93 L 10/17/17 16:00 97 F L 112 H 89 L 10/17/17 15:54 110 H 115/67 88 L 10/17/17 15:39 110 H 91/49 L 89 L 10/17/17 15:30 111 H 25 H 76/42 L 88 L 10/17/17 15:24 112 H 84/53 L 92 L 10/17/17 15:21 112 H 81/46 L 92 L 10/17/17 15:15 96 F L 110 H 24 84/53 L 10/17/17 15:00 111 H 27 H 89 L 10/17/17 14:55 112 H 12 102/67 91 L 10/17/17 14:39 111 H 24 101/58 L 89 L Intake and Output (Last 8hrs): Intake & Output 10/17/17 10/17/17 10/17/17 06:59 14:59 22:59 Intake Total 679.2 1128.5 681.3 Output Total 885 15 Balance 679.2 243.5 666.3 Weight 327 lb 6.183 oz 324 lb 11.854 oz Intake: IV 100 680 7 Intake, IV Amount 579.2 448.5 674.3 Left Distal Port Femoral 114.4 229.7 229.6 Left Medial Port Femoral 179.2 141.5 300 Left Proximal Port 85.6 77.3 44.7 Femoral Left TLC medial port 100 Right Upper arm 200 Output: Urine 85 15 Urethral (Campbell) 85 15 Urine/Stool Mix 0 Emesis 0 Other 800 Other: # Voids Urethral (Campbell) 150 # Bowel Movements 0 0 - Medications Active Medications: Active Medications Generic Name Dose Route Start Last Admin Trade Name Freq PRN Reason Stop Dose Admin Albuterol/Ipratropium 3 ml 10/15/17 14:00 10/17/17 13:33 Duoneb 3 Mg/0.5 Mg (3 Ml) Ud INH Not Given RQ6 ANABELLA Artificial Tears 1 gm 10/17/17 08:39 Lacri-Lube OU Q4 ANABELLA Aspirin 81 mg 10/14/17 10:00 10/17/17 12:02 Aspirin Chewable PO Not Given DAILY ANABELLA Dextrose 0 ml 10/13/17 10:07 Dextrose 50% Inj IV STAT PRN Hypoglycemia Protocol Protocol Dextrose 0 gm 10/13/17 10:07 Glutose 15 PO ONCE PRN Hypoglycemia Protocol Protocol Dextrose 0 ml 10/15/17 23:36 Dextrose 50% Inj IV STAT PRN Hypoglycemia Protocol Protocol Dextrose 0 gm 10/15/17 23:36 Glutose 15 PO ONCE PRN Hypoglycemia Protocol Protocol Glucagon 0 mg 10/13/17 10:07 Glucagen Diagnostic Kit IM STAT PRN Hypoglycemia Protocol Protocol Glucagon 0 mg 10/15/17 23:36 Glucagen Diagnostic Kit IM STAT PRN Hypoglycemia Protocol Protocol Hydralazine HCl 10 mg 10/16/17 11:21 10/17/17 02:45 Apresoline IVP 10 mg Q6 PRN Administration keep BP between 160 and 140 Dextrose 1,000 mls @ 0 mls/hr 10/13/17 10:07 Dextrose 5% In Water 1000 Ml IV .Q0M PRN Hypoglycemia Protocol Protocol Per Protocol Doxycycline Hyclate 100 mg/ 100 mls @ 100 mls/hr 10/15/17 18:00 10/17/17 18: 02 Sodium Chloride IVPB 100 mls/hr Q12H ANABELLA Administration Protocol Piperacillin Sod/Tazobactam Sod 2.25 gm in 50 mls @ 100 mls/hr 10/15/17 17:30 10/17/17 18:02 Zosyn 2.25 Gm Iv Premix IVPB 100 mls/hr Q6H ANABELLA Administration Protocol Propofol 1,000 mg in 100 mls @ 4.307 mls/hr 10/15/17 17:17 10/17/17 13:41 Diprivan IV 20 mcg/kg/min .[id number] PRN 17.227 mls/hr TITRATE PER MD ORDER Administration Protocol 5 MCG/KG/MIN Dextrose 1,000 mls @ 0 mls/hr 10/15/17 23:36 Dextrose 5% In Water 1000 Ml IV .Q0M PRN Hypoglycemia Protocol Protocol Per Protocol Cisatracurium Besylate 100 mg/ 260 mls @ 67.18 mls/hr 10/16/17 03:30 09:30 Dextrose IV 0 mcg/kg/min .Q3H53M PRN 0 mls/hr Protocol Titration 3 MCG/KG/MIN Fentanyl Citrate 2,500 mcg/ 250 mls @ 28.71 mls/hr 10/16/17 03:30 10/17/17 14 :30 Sodium Chloride IV 4 mcg/kg/hr .Q8H43M PRN 57.42 mls/hr Protocol Titration 2 MCG/KG/HR Phenylephrine HCl 30 mg/ 253 mls @ 10.12 mls/hr 10/17/17 15:18 10/17/17 16:05 Sodium Chloride IV 30 mcg/min .Q24H PRN 15.18 mls/hr TITRATE PER MD ORDER Titration Protocol 20 MCG/MIN Norepinephrine Bitartrate 8 mg 250 mls @ 7.5 mls/hr 10/17/17 16:33 / Sodium Chloride IV .Q24H PRN TITRATE PER MD ORDER Protocol 4 MCG/MIN Insulin Human Regular 0 unit 10/15/17 18:00 10/17/17 12:04 Novolin R SC Not Given Q6H ANABELLA Protocol Pantoprazole Sodium 40 mg 10/16/17 01:00 10/17/17 13:00 Protonix Inj IVP 40 mg Q12H ANABELLA Administration Rosuvastatin Calcium 20 mg 10/13/17 22:00 10/16/17 23:48 Crestor PO Not Given HS ANABELLA Sodium Bicarbonate 650 mg 10/15/17 10:00 10/17/17 18:05 Sodium Bicarbonate Tab PO 650 mg TID ANABELLA Administration - Patient Studies Lab Studies: Microbiology Studies 10/15/17 16:40 Blood Culture - Preliminary Blood-Venous NO GROWTH AFTER 48 HOURS 10/15/17 16:00 Blood Culture - Preliminary Blood-Venous NO GROWTH AFTER 48 HOURS 10/15/17 17:35 Gram Stain - Final Sputum Sputum Culture - Final NORMAL ORAL KWADWO 10/15/17 14:36 MRSA Culture (Admit) - Final Naris MRSA NOT DETECTED Lab Studies 10/17/17 10/17/17 10/17/17 Range/Units 17:57 17:02 16:13 WBC (4.8-10.8) K/uL RBC (4.40-5.90) Mil/uL Hgb (12.0-18.0) g/dL Hct (35.0-51.0) % MCV (80.0-94.0) fL MCH (27.0-31.0) pg MCHC (33.0-37.0) g/dL RDW (11.5-14.5) % Plt Count (130-400) K/uL MPV (7.2-11.7) fL Neut % (Auto) (50.0-75.0) % Lymph % (Auto) (20.0-40.0) % Wayne % (Auto) (0.0-10.0) % Eos % (Auto) (0.0-4.0) % Baso % (Auto) (0.0-2.0) % Neut # (Auto) (1.8-7.0) K/uL Lymph # (Auto) (1.0-4.3) K/uL Wayne # (Auto) (0.0-0.8) K/uL Eos # (Auto) (0.0-0.7) K/uL Baso # (Auto) (0.0-0.2) K/uL Neutrophils % (Manual) (50-75) % Band Neutrophils % (0-2) % Lymphocytes % (Manual) (20-40) % Monocytes % (Manual) (0-10) % Eosinophils % (Manual) (0-4) % Basophils % (Manual) (0-2) % Nucleated RBC % (0-0) % Platelet Estimate (NORMAL) Large Platelets Polychromasia Hypochromasia (manual) Poikilocytosis (manual Anisocytosis (manual) Microcytosis (manual) Target Cells [place] Cells PT (9.7-12.2) SECONDS INR APTT (21-34) SECONDS Fibrinogen (200-400) mg/dL Fibrin Degrad Products (NEGATIVE) Fibrin Degrad Prod, Qt (<10) ug/mL Puncture Site pCO2 (35-45) mm/Hg pO2 (80-100) mm/Hg HCO3 (21-28) mmol/L ABG pH (7.35-7.45) ABG Total CO2 (22-28) mmol/L ABG O2 Saturation (95-98) % ABG Base Excess (-2.0-3.0) mmol/L Philippe Test ABG Potassium (3.6-5.2) mmol/L A-a O2 Difference mm/Hg Respiratory Index Glucose (75-110) mg/dl Lactate (0.7-2.1) mmol/L Vent Mode Mechanical Rate FiO2 % Tidal Volume PEEP Sodium (132-148) mmol/L Potassium (3.6-5.2) mmol/L Chloride (98-107) mmol/L Carbon Dioxide (22-30) mmol/L Anion Gap (10-20) BUN (9-20) mg/dL Creatinine (0.8-1.5) mg/dL Est GFR ( Amer) Est GFR (Non-Af Amer) POC Glucose (mg/dL) 164 H 141 H 140 H (65-110) mg/dL Random Glucose (75-110) mg/dL Calcium (8.6-10.4) mg/dl Phosphorus (2.5-4.5) mg/dL Magnesium (1.6-2.3) mg/dL Total Bilirubin (0.2-1.3) mg/dL AST (17-59) U/L ALT (21-72) U/L Alkaline Phosphatase (38-126) U/L Total Protein (6.3-8.3) g/dL Albumin (3.5-5.0) g/dL Globulin (2.2-3.9) gm/dL Albumin/Globulin Ratio (1.0-2.1) Procalcitonin (0.19-0.49) NG/ML Free T4 (0.78-2.19) ng/dL TSH 3rd Generation (0.46-4.68) mIU/L Arterial Blood Potassium (3.6-5.2) mmol/L 10/17/17 10/17/17 10/17/17 Range/Units 15:40 14:13 12:02 WBC (4.8-10.8) K/uL RBC (4.40-5.90) Mil/uL Hgb (12.0-18.0) g/dL Hct (35.0-51.0) % MCV (80.0-94.0) fL MCH (27.0-31.0) pg MCHC (33.0-37.0) g/dL RDW (11.5-14.5) % Plt Count (130-400) K/uL MPV (7.2-11.7) fL Neut % (Auto) (50.0-75.0) % Lymph % (Auto) (20.0-40.0) % Wayne % (Auto) (0.0-10.0) % Eos % (Auto) (0.0-4.0) % Baso % (Auto) (0.0-2.0) % Neut # (Auto) (1.8-7.0) K/uL Lymph # (Auto) (1.0-4.3) K/uL Wayne # (Auto) (0.0-0.8) K/uL Eos # (Auto) (0.0-0.7) K/uL Baso # (Auto) (0.0-0.2) K/uL Neutrophils % (Manual) (50-75) % Band Neutrophils % (0-2) % Lymphocytes % (Manual) (20-40) % Monocytes % (Manual) (0-10) % Eosinophils % (Manual) (0-4) % Basophils % (Manual) (0-2) % Nucleated RBC % (0-0) % Platelet Estimate (NORMAL) Large Platelets Polychromasia Hypochromasia (manual) Poikilocytosis (manual Anisocytosis (manual) Microcytosis (manual) Target Cells [place] Cells PT (9.7-12.2) SECONDS INR APTT (21-34) SECONDS Fibrinogen (200-400) mg/dL Fibrin Degrad Products (NEGATIVE) Fibrin Degrad Prod, Qt (<10) ug/mL Puncture Site pCO2 (35-45) mm/Hg pO2 (80-100) mm/Hg HCO3 (21-28) mmol/L ABG pH (7.35-7.45) ABG Total CO2 (22-28) mmol/L ABG O2 Saturation (95-98) % ABG Base Excess (-2.0-3.0) mmol/L Philippe Test ABG Potassium (3.6-5.2) mmol/L A-a O2 Difference mm/Hg Respiratory Index Glucose (75-110) mg/dl Lactate (0.7-2.1) mmol/L Vent Mode Mechanical Rate FiO2 % Tidal Volume PEEP Sodium (132-148) mmol/L Potassium (3.6-5.2) mmol/L Chloride (98-107) mmol/L Carbon Dioxide (22-30) mmol/L Anion Gap (10-20) BUN (9-20) mg/dL Creatinine (0.8-1.5) mg/dL Est GFR ( Amer) Est GFR (Non-Af Amer) POC Glucose (mg/dL) 151 H 138 H 201 H (65-110) mg/dL Random Glucose (75-110) mg/dL Calcium (8.6-10.4) mg/dl Phosphorus (2.5-4.5) mg/dL Magnesium (1.6-2.3) mg/dL Total Bilirubin (0.2-1.3) mg/dL AST (17-59) U/L ALT (21-72) U/L Alkaline Phosphatase (38-126) U/L Total Protein (6.3-8.3) g/dL Albumin (3.5-5.0) g/dL Globulin (2.2-3.9) gm/dL Albumin/Globulin Ratio (1.0-2.1) Procalcitonin (0.19-0.49) NG/ML Free T4 (0.78-2.19) ng/dL TSH 3rd Generation (0.46-4.68) mIU/L Arterial Blood Potassium (3.6-5.2) mmol/L 10/17/17 10/17/17 10/17/17 Range/Units 11:47 11:47 11:47 WBC 17.2 H (4.8-10.8) K/uL RBC 4.02 L (4.40-5.90) Mil/uL Hgb 11.2 L (12.0-18.0) g/dL Hct 35.0 (35.0-51.0) % MCV 86.9 (80.0-94.0) fL MCH 27.8 (27.0-31.0) pg MCHC 32.0 L (33.0-37.0) g/dL RDW 18.0 H (11.5-14.5) % Plt Count 47 L (130-400) K/uL MPV 11.0 (7.2-11.7) fL Neut % (Auto) 93.7 H (50.0-75.0) % Lymph % (Auto) 1.7 L (20.0-40.0) % Wayne % (Auto) 2.8 (0.0-10.0) % Eos % (Auto) 1.7 (0.0-4.0) % Baso % (Auto) 0.1 (0.0-2.0) % Neut # (Auto) 16.1 H (1.8-7.0) K/uL Lymph # (Auto) 0.3 L (1.0-4.3) K/uL Wayne # (Auto) 0.5 (0.0-0.8) K/uL Eos # (Auto) 0.3 (0.0-0.7) K/uL Baso # (Auto) 0.0 (0.0-0.2) K/uL Neutrophils % (Manual) 90 H (50-75) % Band Neutrophils % (0-2) % Lymphocytes % (Manual) 3 L (20-40) % Monocytes % (Manual) 1 (0-10) % Eosinophils % (Manual) 5 H (0-4) % Basophils % (Manual) 1 (0-2) % Nucleated RBC % 2 H (0-0) % Platelet Estimate Decreased L (NORMAL) Large Platelets Present Polychromasia Hypochromasia (manual) Slight Poikilocytosis (manual Slight Anisocytosis (manual) Slight Microcytosis (manual) Slight Target Cells Slight [place] Cells Slight PT (9.7-12.2) SECONDS INR APTT (21-34) SECONDS Fibrinogen 684 H (200-400) mg/dL Fibrin Degrad Products Positive H (NEGATIVE) Fibrin Degrad Prod, Qt >40 H (<10) ug/mL Puncture Site pCO2 (35-45) mm/Hg pO2 (80-100) mm/Hg HCO3 (21-28) mmol/L ABG pH (7.35-7.45) ABG Total CO2 (22-28) mmol/L ABG O2 Saturation (95-98) % ABG Base Excess (-2.0-3.0) mmol/L Philippe Test ABG Potassium (3.6-5.2) mmol/L A-a O2 Difference mm/Hg Respiratory Index Glucose (75-110) mg/dl Lactate (0.7-2.1) mmol/L Vent Mode Mechanical Rate FiO2 % Tidal Volume PEEP Sodium 139 (132-148) mmol/L Potassium 3.7 (3.6-5.2) mmol/L Chloride 96 L (98-107) mmol/L Carbon Dioxide 32 H (22-30) mmol/L Anion Gap 15 (10-20) BUN 34 H (9-20) mg/dL Creatinine 2.4 H (0.8-1.5) mg/dL Est GFR ( Amer) 35 Est GFR (Non-Af Amer) 29 POC Glucose (mg/dL) (65-110) mg/dL Random Glucose 231 H (75-110) mg/dL Calcium 8.2 L (8.6-10.4) mg/dl Phosphorus 5.7 H (2.5-4.5) mg/dL Magnesium 1.8 (1.6-2.3) mg/dL Total Bilirubin 2.1 H (0.2-1.3) mg/dL AST 25 (17-59) U/L ALT 26 (21-72) U/L Alkaline Phosphatase 138 H (38-126) U/L Total Protein 6.8 (6.3-8.3) g/dL Albumin 3.4 L (3.5-5.0) g/dL Globulin 3.4 (2.2-3.9) gm/dL Albumin/Globulin Ratio 1.0 (1.0-2.1) Procalcitonin (0.19-0.49) NG/ML Free T4 (0.78-2.19) ng/dL TSH 3rd Generation (0.46-4.68) mIU/L Arterial Blood Potassium (3.6-5.2) mmol/L 10/17/17 10/17/17 10/17/17 Range/Units 11:47 11:04 09:15 WBC (4.8-10.8) K/uL RBC (4.40-5.90) Mil/uL Hgb (12.0-18.0) g/dL Hct (35.0-51.0) % MCV (80.0-94.0) fL MCH (27.0-31.0) pg MCHC (33.0-37.0) g/dL RDW (11.5-14.5) % Plt Count (130-400) K/uL MPV (7.2-11.7) fL Neut % (Auto) (50.0-75.0) % Lymph % (Auto) (20.0-40.0) % Wayne % (Auto) (0.0-10.0) % Eos % (Auto) (0.0-4.0) % Baso % (Auto) (0.0-2.0) % Neut # (Auto) (1.8-7.0) K/uL Lymph # (Auto) (1.0-4.3) K/uL Wayne # (Auto) (0.0-0.8) K/uL Eos # (Auto) (0.0-0.7) K/uL Baso # (Auto) (0.0-0.2) K/uL Neutrophils % (Manual) (50-75) % Band Neutrophils % (0-2) % Lymphocytes % (Manual) (20-40) % Monocytes % (Manual) (0-10) % Eosinophils % (Manual) (0-4) % Basophils % (Manual) (0-2) % Nucleated RBC % (0-0) % Platelet Estimate (NORMAL) Large Platelets Polychromasia Hypochromasia (manual) Poikilocytosis (manual Anisocytosis (manual) Microcytosis (manual) Target Cells [place] Cells PT (9.7-12.2) SECONDS INR APTT (21-34) SECONDS Fibrinogen (200-400) mg/dL Fibrin Degrad Products (NEGATIVE) Fibrin Degrad Prod, Qt (<10) ug/mL Puncture Site pCO2 (35-45) mm/Hg pO2 (80-100) mm/Hg HCO3 (21-28) mmol/L ABG pH (7.35-7.45) ABG Total CO2 (22-28) mmol/L ABG O2 Saturation (95-98) % ABG Base Excess (-2.0-3.0) mmol/L Philippe Test ABG Potassium (3.6-5.2) mmol/L A-a O2 Difference mm/Hg Respiratory Index Glucose (75-110) mg/dl Lactate (0.7-2.1) mmol/L Vent Mode Mechanical Rate FiO2 % Tidal Volume PEEP Sodium (132-148) mmol/L Potassium (3.6-5.2) mmol/L Chloride (98-107) mmol/L Carbon Dioxide (22-30) mmol/L Anion Gap (10-20) BUN (9-20) mg/dL Creatinine (0.8-1.5) mg/dL Est GFR ( Amer) Est GFR (Non-Af Amer) POC Glucose (mg/dL) 237 H 272 H (65-110) mg/dL Random Glucose (75-110) mg/dL Calcium (8.6-10.4) mg/dl Phosphorus (2.5-4.5) mg/dL Magnesium (1.6-2.3) mg/dL Total Bilirubin (0.2-1.3) mg/dL AST (17-59) U/L ALT (21-72) U/L Alkaline Phosphatase (38-126) U/L Total Protein (6.3-8.3) g/dL Albumin (3.5-5.0) g/dL Globulin (2.2-3.9) gm/dL Albumin/Globulin Ratio (1.0-2.1) Procalcitonin 23.43 H (0.19-0.49) NG/ML Free T4 (0.78-2.19) ng/dL TSH 3rd Generation (0.46-4.68) mIU/L Arterial Blood Potassium (3.6-5.2) mmol/L 10/17/17 10/17/17 10/17/17 Range/Units 08:21 07:44 06:31 WBC (4.8-10.8) K/uL RBC (4.40-5.90) Mil/uL Hgb (12.0-18.0) g/dL Hct (35.0-51.0) % MCV (80.0-94.0) fL MCH (27.0-31.0) pg MCHC (33.0-37.0) g/dL RDW (11.5-14.5) % Plt Count (130-400) K/uL MPV (7.2-11.7) fL Neut % (Auto) (50.0-75.0) % Lymph % (Auto) (20.0-40.0) % Wayne % (Auto) (0.0-10.0) % Eos % (Auto) (0.0-4.0) % Baso % (Auto) (0.0-2.0) % Neut # (Auto) (1.8-7.0) K/uL Lymph # (Auto) (1.0-4.3) K/uL Wayne # (Auto) (0.0-0.8) K/uL Eos # (Auto) (0.0-0.7) K/uL Baso # (Auto) (0.0-0.2) K/uL Neutrophils % (Manual) (50-75) % Band Neutrophils % (0-2) % Lymphocytes % (Manual) (20-40) % Monocytes % (Manual) (0-10) % Eosinophils % (Manual) (0-4) % Basophils % (Manual) (0-2) % Nucleated RBC % (0-0) % Platelet Estimate (NORMAL) Large Platelets Polychromasia Hypochromasia (manual) Poikilocytosis (manual Anisocytosis (manual) Microcytosis (manual) Target Cells [place] Cells PT (9.7-12.2) SECONDS INR APTT (21-34) SECONDS Fibrinogen (200-400) mg/dL Fibrin Degrad Products (NEGATIVE) Fibrin Degrad Prod, Qt (<10) ug/mL Puncture Site pCO2 (35-45) mm/Hg pO2 (80-100) mm/Hg HCO3 (21-28) mmol/L ABG pH (7.35-7.45) ABG Total CO2 (22-28) mmol/L ABG O2 Saturation (95-98) % ABG Base Excess (-2.0-3.0) mmol/L Philippe Test ABG Potassium (3.6-5.2) mmol/L A-a O2 Difference mm/Hg Respiratory Index Glucose (75-110) mg/dl Lactate (0.7-2.1) mmol/L Vent Mode Mechanical Rate FiO2 % Tidal Volume PEEP Sodium 136 (132-148) mmol/L Potassium 3.2 L (3.6-5.2) mmol/L Chloride 95 L (98-107) mmol/L Carbon Dioxide 30 (22-30) mmol/L Anion Gap 14 (10-20) BUN 44 H (9-20) mg/dL Creatinine 2.6 H (0.8-1.5) mg/dL Est GFR ( Amer) 32 Est GFR (Non-Af Amer) 26 POC Glucose (mg/dL) 267 H 328 H (65-110) mg/dL Random Glucose 272 H (75-110) mg/dL Calcium 8.3 L (8.6-10.4) mg/dl Phosphorus 4.2 (2.5-4.5) mg/dL Magnesium 1.8 (1.6-2.3) mg/dL Total Bilirubin 2.1 H (0.2-1.3) mg/dL AST 28 (17-59) U/L ALT 33 (21-72) U/L Alkaline Phosphatase 141 H (38-126) U/L Total Protein 6.5 (6.3-8.3) g/dL Albumin 3.2 L (3.5-5.0) g/dL Globulin 3.3 (2.2-3.9) gm/dL Albumin/Globulin Ratio 1.0 (1.0-2.1) Procalcitonin (0.19-0.49) NG/ML Free T4 (0.78-2.19) ng/dL TSH 3rd Generation (0.46-4.68) mIU/L Arterial Blood Potassium (3.6-5.2) mmol/L 10/17/17 10/17/17 10/17/17 Range/Units 06:31 05:48 05:12 WBC 21.1 H (4.8-10.8) K/uL RBC 4.14 L (4.40-5.90) Mil/uL Hgb 11.5 L (12.0-18.0) g/dL Hct 35.9 (35.0-51.0) % MCV 86.8 (80.0-94.0) fL MCH 27.8 (27.0-31.0) pg MCHC 32.0 L (33.0-37.0) g/dL RDW 18.2 H (11.5-14.5) % Plt Count 53 L (130-400) K/uL MPV 10.3 (7.2-11.7) fL Neut % (Auto) 86.3 H (50.0-75.0) % Lymph % (Auto) 6.3 L (20.0-40.0) % Wayne % (Auto) 5.1 (0.0-10.0) % Eos % (Auto) 2.0 (0.0-4.0) % Baso % (Auto) 0.3 (0.0-2.0) % Neut # (Auto) 18.2 H (1.8-7.0) K/uL Lymph # (Auto) 1.3 (1.0-4.3) K/uL Wayne # (Auto) 1.1 H (0.0-0.8) K/uL Eos # (Auto) 0.4 (0.0-0.7) K/uL Baso # (Auto) 0.1 (0.0-0.2) K/uL Neutrophils % (Manual) (50-75) % Band Neutrophils % (0-2) % Lymphocytes % (Manual) (20-40) % Monocytes % (Manual) (0-10) % Eosinophils % (Manual) (0-4) % Basophils % (Manual) (0-2) % Nucleated RBC % (0-0) % Platelet Estimate (NORMAL) Large Platelets Polychromasia Hypochromasia (manual) Poikilocytosis (manual Anisocytosis (manual) Microcytosis (manual) Target Cells Jose[place] Cells PT (9.7-12.2) SECONDS INR APTT (21-34) SECONDS Fibrinogen (200-400) mg/dL Fibrin Degrad Products (NEGATIVE) Fibrin Degrad Prod, Qt (<10) ug/mL Puncture Site [place]um pCO2 55 H (35-45) mm/Hg pO2 72 L (80-100) mm/Hg HCO3 26.3 (21-28) mmol/L ABG pH 7.33 L (7.35-7.45) ABG Total CO2 30.7 H (22-28) mmol/L ABG O2 Saturation 95.6 (95-98) % ABG Base Excess 1.9 (-2.0-3.0) mmol/L Philippe Test Na ABG Potassium 2.8 L (3.6-5.2) mmol/L A-a O2 Difference 572.0 mm/Hg Respiratory Index 7.9 Glucose 279 H (75-110) mg/dl Lactate 1.2 (0.7-2.1) mmol/L Vent Mode Prvc Mechanical Rate 24 FiO2 100.0 % Tidal Volume 500 PEEP 5 Sodium 136.0 (132-148) mmol/L Potassium (3.6-5.2) mmol/L Chloride 99.0 (98-107) mmol/L Carbon Dioxide (22-30) mmol/L Anion Gap (10-20) BUN (9-20) mg/dL Creatinine (0.8-1.5) mg/dL Est GFR ( Amer) Est GFR (Non-Af Amer) POC Glucose (mg/dL) 261 H (65-110) mg/dL Random Glucose (75-110) mg/dL Calcium (8.6-10.4) mg/dl Phosphorus (2.5-4.5) mg/dL Magnesium (1.6-2.3) mg/dL Total Bilirubin (0.2-1.3) mg/dL AST (17-59) U/L ALT (21-72) U/L Alkaline Phosphatase (38-126) U/L Total Protein (6.3-8.3) g/dL Albumin (3.5-5.0) g/dL Globulin (2.2-3.9) gm/dL Albumin/Globulin Ratio (1.0-2.1) Procalcitonin (0.19-0.49) NG/ML Free T4 (0.78-2.19) ng/dL TSH 3rd Generation (0.46-4.68) mIU/L Arterial Blood Potassium 2.8 L (3.6-5.2) mmol/L 10/17/17 10/17/17 10/17/17 Range/Units 04:46 03:52 03:25 WBC (4.8-10.8) K/uL RBC (4.40-5.90) Mil/uL Hgb (12.0-18.0) g/dL Hct (35.0-51.0) % MCV (80.0-94.0) fL MCH (27.0-31.0) pg MCHC (33.0-37.0) g/dL RDW (11.5-14.5) % Plt Count (130-400) K/uL MPV (7.2-11.7) fL Neut % (Auto) (50.0-75.0) % Lymph % (Auto) (20.0-40.0) % Wayne % (Auto) (0.0-10.0) % Eos % (Auto) (0.0-4.0) % Baso % (Auto) (0.0-2.0) % Neut # (Auto) (1.8-7.0) K/uL Lymph # (Auto) (1.0-4.3) K/uL Wayne # (Auto) (0.0-0.8) K/uL Eos # (Auto) (0.0-0.7) K/uL Baso # (Auto) (0.0-0.2) K/uL Neutrophils % (Manual) (50-75) % Band Neutrophils % (0-2) % Lymphocytes % (Manual) (20-40) % Monocytes % (Manual) (0-10) % Eosinophils % (Manual) (0-4) % Basophils % (Manual) (0-2) % Nucleated RBC % (0-0) % Platelet Estimate (NORMAL) Large Platelets Polychromasia Hypochromasia (manual) Poikilocytosis (manual Anisocytosis (manual) Microcytosis (manual) Target Cells [place] Cells PT (9.7-12.2) SECONDS INR APTT (21-34) SECONDS Fibrinogen (200-400) mg/dL Fibrin Degrad Products (NEGATIVE) Fibrin Degrad Prod, Qt (<10) ug/mL Puncture Site pCO2 (35-45) mm/Hg pO2 (80-100) mm/Hg HCO3 (21-28) mmol/L ABG pH (7.35-7.45) ABG Total CO2 (22-28) mmol/L ABG O2 Saturation (95-98) % ABG Base Excess (-2.0-3.0) mmol/L Philippe Test ABG Potassium (3.6-5.2) mmol/L A-a O2 Difference mm/Hg Respiratory Index Glucose (75-110) mg/dl Lactate (0.7-2.1) mmol/L Vent Mode Mechanical Rate FiO2 % Tidal Volume PEEP Sodium 138 (132-148) mmol/L Potassium 3.1 L (3.6-5.2) mmol/L Chloride 96 L (98-107) mmol/L Carbon Dioxide 30 (22-30) mmol/L Anion Gap 15 (10-20) BUN 42 H (9-20) mg/dL Creatinine 2.5 H (0.8-1.5) mg/dL Est GFR ( Amer) 34 Est GFR (Non-Af Amer) 28 POC Glucose (mg/dL) 261 H 255 H (65-110) mg/dL Random Glucose 248 H (75-110) mg/dL Calcium 8.5 L (8.6-10.4) mg/dl Phosphorus (2.5-4.5) mg/dL Magnesium (1.6-2.3) mg/dL Total Bilirubin 2.4 H (0.2-1.3) mg/dL AST 30 (17-59) U/L ALT 29 (21-72) U/L Alkaline Phosphatase 152 H D (38-126) U/L Total Protein 6.7 (6.3-8.3) g/dL Albumin 3.3 L D (3.5-5.0) g/dL Globulin 3.4 (2.2-3.9) gm/dL Albumin/Globulin Ratio 1.0 (1.0-2.1) Procalcitonin (0.19-0.49) NG/ML Free T4 (0.78-2.19) ng/dL TSH 3rd Generation (0.46-4.68) mIU/L Arterial Blood Potassium (3.6-5.2) mmol/L 10/17/17 10/17/17 10/17/17 Range/Units 03:04 03:04 03:04 WBC 22.9 H (4.8-10.8) K/uL RBC 4.19 L (4.40-5.90) Mil/uL Hgb 11.7 L D (12.0-18.0) g/dL Hct 36.4 (35.0-51.0) % MCV 86.7 (80.0-94.0) fL MCH 27.9 (27.0-31.0) pg MCHC 32.2 L (33.0-37.0) g/dL RDW 18.0 H (11.5-14.5) % Plt Count 50 L (130-400) K/uL MPV 9.7 (7.2-11.7) fL Neut % (Auto) 86.1 H (50.0-75.0) % Lymph % (Auto) 5.3 L (20.0-40.0) % Wayne % (Auto) 5.3 (0.0-10.0) % Eos % (Auto) 3.1 (0.0-4.0) % Baso % (Auto) 0.2 (0.0-2.0) % Neut # (Auto) 19.7 H (1.8-7.0) K/uL Lymph # (Auto) 1.2 (1.0-4.3) K/uL Wayne # (Auto) 1.2 H (0.0-0.8) K/uL Eos # (Auto) 0.7 (0.0-0.7) K/uL Baso # (Auto) 0.1 (0.0-0.2) K/uL Neutrophils % (Manual) 81 H (50-75) % Band Neutrophils % 4 H (0-2) % Lymphocytes % (Manual) 6 L (20-40) % Monocytes % (Manual) 6 (0-10) % Eosinophils % (Manual) 3 (0-4) % Basophils % (Manual) (0-2) % Nucleated RBC % 1 H (0-0) % Platelet Estimate Normal (NORMAL) Large Platelets Polychromasia Slight Hypochromasia (manual) Poikilocytosis (manual Slight Anisocytosis (manual) Slight Microcytosis (manual) Target Cells [place] Cells PT 16.6 H (9.7-12.2) SECONDS INR 1.5 APTT 67 H D (21-34) SECONDS Fibrinogen (200-400) mg/dL Fibrin Degrad Products (NEGATIVE) Fibrin Degrad Prod, Qt (<10) ug/mL Puncture Site pCO2 (35-45) mm/Hg pO2 (80-100) mm/Hg HCO3 (21-28) mmol/L ABG pH (7.35-7.45) ABG Total CO2 (22-28) mmol/L ABG O2 Saturation (95-98) % ABG Base Excess (-2.0-3.0) mmol/L Philippe Test ABG Potassium (3.6-5.2) mmol/L A-a O2 Difference mm/Hg Respiratory Index Glucose (75-110) mg/dl Lactate (0.7-2.1) mmol/L Vent Mode Mechanical Rate FiO2 % Tidal Volume PEEP Sodium (132-148) mmol/L Potassium (3.6-5.2) mmol/L Chloride (98-107) mmol/L Carbon Dioxide (22-30) mmol/L Anion Gap (10-20) BUN (9-20) mg/dL Creatinine (0.8-1.5) mg/dL Est GFR ( Amer) Est GFR (Non-Af Amer) POC Glucose (mg/dL) (65-110) mg/dL Random Glucose (75-110) mg/dL Calcium (8.6-10.4) mg/dl Phosphorus 3.3 (2.5-4.5) mg/dL Magnesium 1.8 (1.6-2.3) mg/dL Total Bilirubin (0.2-1.3) mg/dL AST (17-59) U/L ALT (21-72) U/L Alkaline Phosphatase (38-126) U/L Total Protein (6.3-8.3) g/dL Albumin (3.5-5.0) g/dL Globulin (2.2-3.9) gm/dL Albumin/Globulin Ratio (1.0-2.1) Procalcitonin (0.19-0.49) NG/ML Free T4 (0.78-2.19) ng/dL TSH 3rd Generation (0.46-4.68) mIU/L Arterial Blood Potassium (3.6-5.2) mmol/L 10/17/17 10/17/17 10/16/17 Range/Units 02:48 01:41 23:50 WBC (4.8-10.8) K/uL RBC (4.40-5.90) Mil/uL Hgb (12.0-18.0) g/dL Hct (35.0-51.0) % MCV (80.0-94.0) fL MCH (27.0-31.0) pg MCHC (33.0-37.0) g/dL RDW (11.5-14.5) % Plt Count (130-400) K/uL MPV (7.2-11.7) fL Neut % (Auto) (50.0-75.0) % Lymph % (Auto) (20.0-40.0) % Wayne % (Auto) (0.0-10.0) % Eos % (Auto) (0.0-4.0) % Baso % (Auto) (0.0-2.0) % Neut # (Auto) (1.8-7.0) K/uL Lymph # (Auto) (1.0-4.3) K/uL Wayne # (Auto) (0.0-0.8) K/uL Eos # (Auto) (0.0-0.7) K/uL Baso # (Auto) (0.0-0.2) K/uL Neutrophils % (Manual) (50-75) % Band Neutrophils % (0-2) % Lymphocytes % (Manual) (20-40) % Monocytes % (Manual) (0-10) % Eosinophils % (Manual) (0-4) % Basophils % (Manual) (0-2) % Nucleated RBC % (0-0) % Platelet Estimate (NORMAL) Large Platelets Polychromasia Hypochromasia (manual) Poikilocytosis (manual Anisocytosis (manual) Microcytosis (manual) Target Cells [place] Cells PT (9.7-12.2) SECONDS INR APTT (21-34) SECONDS Fibrinogen (200-400) mg/dL Fibrin Degrad Products (NEGATIVE) Fibrin Degrad Prod, Qt (<10) ug/mL Puncture Site pCO2 (35-45) mm/Hg pO2 (80-100) mm/Hg HCO3 (21-28) mmol/L ABG pH (7.35-7.45) ABG Total CO2 (22-28) mmol/L ABG O2 Saturation (95-98) % ABG Base Excess (-2.0-3.0) mmol/L Philippe Test ABG Potassium (3.6-5.2) mmol/L A-a O2 Difference mm/Hg Respiratory Index Glucose (75-110) mg/dl Lactate (0.7-2.1) mmol/L Vent Mode Mechanical Rate FiO2 % Tidal Volume PEEP Sodium (132-148) mmol/L Potassium (3.6-5.2) mmol/L Chloride (98-107) mmol/L Carbon Dioxide (22-30) mmol/L Anion Gap (10-20) BUN (9-20) mg/dL Creatinine (0.8-1.5) mg/dL Est GFR ( Amer) Est GFR (Non-Af Amer) POC Glucose (mg/dL) 237 H 233 H 204 H (65-110) mg/dL Random Glucose (75-110) mg/dL Calcium (8.6-10.4) mg/dl Phosphorus (2.5-4.5) mg/dL Magnesium (1.6-2.3) mg/dL Total Bilirubin (0.2-1.3) mg/dL AST (17-59) U/L ALT (21-72) U/L Alkaline Phosphatase (38-126) U/L Total Protein (6.3-8.3) g/dL Albumin (3.5-5.0) g/dL Globulin (2.2-3.9) gm/dL Albumin/Globulin Ratio (1.0-2.1) Procalcitonin (0.19-0.49) NG/ML Free T4 (0.78-2.19) ng/dL TSH 3rd Generation (0.46-4.68) mIU/L Arterial Blood Potassium (3.6-5.2) mmol/L 10/16/17 10/16/17 10/16/17 Range/Units 22:50 21:34 19:10 WBC (4.8-10.8) K/uL RBC (4.40-5.90) Mil/uL Hgb (12.0-18.0) g/dL Hct (35.0-51.0) % MCV (80.0-94.0) fL MCH (27.0-31.0) pg MCHC (33.0-37.0) g/dL RDW (11.5-14.5) % Plt Count (130-400) K/uL MPV (7.2-11.7) fL Neut % (Auto) (50.0-75.0) % Lymph % (Auto) (20.0-40.0) % Wayne % (Auto) (0.0-10.0) % Eos % (Auto) (0.0-4.0) % Baso % (Auto) (0.0-2.0) % Neut # (Auto) (1.8-7.0) K/uL Lymph # (Auto) (1.0-4.3) K/uL Wayne # (Auto) (0.0-0.8) K/uL Eos # (Auto) (0.0-0.7) K/uL Baso # (Auto) (0.0-0.2) K/uL Neutrophils % (Manual) (50-75) % Band Neutrophils % (0-2) % Lymphocytes % (Manual) (20-40) % Monocytes % (Manual) (0-10) % Eosinophils % (Manual) (0-4) % Basophils % (Manual) (0-2) % Nucleated RBC % (0-0) % Platelet Estimate (NORMAL) Large Platelets Polychromasia Hypochromasia (manual) Poikilocytosis (manual Anisocytosis (manual) Microcytosis (manual) Target Cells [place] Cells PT (9.7-12.2) SECONDS INR APTT (21-34) SECONDS Fibrinogen (200-400) mg/dL Fibrin Degrad Products (NEGATIVE) Fibrin Degrad Prod, Qt (<10) ug/mL Puncture Site pCO2 (35-45) mm/Hg pO2 (80-100) mm/Hg HCO3 (21-28) mmol/L ABG pH (7.35-7.45) ABG Total CO2 (22-28) mmol/L ABG O2 Saturation (95-98) % ABG Base Excess (-2.0-3.0) mmol/L Philippe Test ABG Potassium (3.6-5.2) mmol/L A-a O2 Difference mm/Hg Respiratory Index Glucose (75-110) mg/dl Lactate (0.7-2.1) mmol/L Vent Mode Mechanical Rate FiO2 % Tidal Volume PEEP Sodium (132-148) mmol/L Potassium (3.6-5.2) mmol/L Chloride (98-107) mmol/L Carbon Dioxide (22-30) mmol/L Anion Gap (10-20) BUN (9-20) mg/dL Creatinine (0.8-1.5) mg/dL Est GFR ( Amer) Est GFR (Non-Af Amer) POC Glucose (mg/dL) 191 H 170 H 177 H (65-110) mg/dL Random Glucose (75-110) mg/dL Calcium (8.6-10.4) mg/dl Phosphorus (2.5-4.5) mg/dL Magnesium (1.6-2.3) mg/dL Total Bilirubin (0.2-1.3) mg/dL AST (17-59) U/L ALT (21-72) U/L Alkaline Phosphatase (38-126) U/L Total Protein (6.3-8.3) g/dL Albumin (3.5-5.0) g/dL Globulin (2.2-3.9) gm/dL Albumin/Globulin Ratio (1.0-2.1) Procalcitonin (0.19-0.49) NG/ML Free T4 (0.78-2.19) ng/dL TSH 3rd Generation (0.46-4.68) mIU/L Arterial Blood Potassium (3.6-5.2) mmol/L 10/16/17 10/16/17 Range/Units 17:52 16:33 WBC (4.8-10.8) K/uL RBC (4.40-5.90) Mil/uL Hgb (12.0-18.0) g/dL Hct (35.0-51.0) % MCV (80.0-94.0) fL MCH (27.0-31.0) pg MCHC (33.0-37.0) g/dL RDW (11.5-14.5) % Plt Count (130-400) K/uL MPV (7.2-11.7) fL Neut % (Auto) (50.0-75.0) % Lymph % (Auto) (20.0-40.0) % Wayne % (Auto) (0.0-10.0) % Eos % (Auto) (0.0-4.0) % Baso % (Auto) (0.0-2.0) % Neut # (Auto) (1.8-7.0) K/uL Lymph # (Auto) (1.0-4.3) K/uL [place] # (Auto) (0.0-0.8) K/uL Eos # (Auto) (0.0-0.7) K/uL Baso # (Auto) (0.0-0.2) K/uL Neutrophils % (Manual) (50-75) % Band Neutrophils % (0-2) % Lymphocytes % (Manual) (20-40) % Monocytes % (Manual) (0-10) % Eosinophils % (Manual) (0-4) % Basophils % (Manual) (0-2) % Nucleated RBC % (0-0) % Platelet Estimate (NORMAL) Large Platelets Polychromasia Hypochromasia (manual) Poikilocytosis (manual Anisocytosis (manual) Microcytosis (manual) Target Cells [place] Cells PT (9.7-12.2) SECONDS INR APTT (21-34) SECONDS Fibrinogen (200-400) mg/dL Fibrin Degrad Products (NEGATIVE) Fibrin Degrad Prod, Qt (<10) ug/mL Puncture Site pCO2 (35-45) mm/Hg pO2 (80-100) mm/Hg HCO3 (21-28) mmol/L ABG pH (7.35-7.45) ABG Total CO2 (22-28) mmol/L ABG O2 Saturation (95-98) % ABG Base Excess (-2.0-3.0) mmol/L Philippe Test ABG Potassium (3.6-5.2) mmol/L A-a O2 Difference mm/Hg Respiratory Index Glucose (75-110) mg/dl Lactate (0.7-2.1) mmol/L Vent Mode Mechanical Rate FiO2 % Tidal Volume PEEP Sodium (132-148) mmol/L Potassium (3.6-5.2) mmol/L Chloride (98-107) mmol/L Carbon Dioxide (22-30) mmol/L Anion Gap (10-20) BUN (9-20) mg/dL Creatinine (0.8-1.5) mg/dL Est GFR ( Amer) Est GFR (Non-Af Amer) POC Glucose (mg/dL) 188 H (65-110) mg/dL Random Glucose (75-110) mg/dL Calcium (8.6-10.4) mg/dl Phosphorus (2.5-4.5) mg/dL Magnesium (1.6-2.3) mg/dL Total Bilirubin (0.2-1.3) mg/dL AST (17-59) U/L ALT (21-72) U/L Alkaline Phosphatase (38-126) U/L Total Protein (6.3-8.3) g/dL Albumin (3.5-5.0) g/dL Globulin (2.2-3.9) gm/dL Albumin/Globulin Ratio (1.0-2.1) Procalcitonin (0.19-0.49) NG/ML Free T4 1.63 (0.78-2.19) ng/dL TSH 3rd Generation 0.94 (0.46-4.68) mIU/L Arterial Blood Potassium (3.6-5.2) mmol/L Laboratory Results - last 24 hr 10/16/17 10/16/17 10/16/17 16:33 17:52 19:10 WBC RBC Hgb Hct MCV MCH MCHC RDW Plt Count MPV Neut % (Auto) Lymph % (Auto) Wayne % (Auto) Eos % (Auto) Baso % (Auto) Neut # (Auto) Lymph # (Auto) Wayne # (Auto) Eos # (Auto) Baso # (Auto) Neutrophils % (Manual) Band Neutrophils % Lymphocytes % (Manual) Monocytes % (Manual) Eosinophils % (Manual) Basophils % (Manual) Nucleated RBC % Platelet Estimate Large Platelets Polychromasia Hypochromasia (manual) Poikilocytosis (manual Anisocytosis (manual) Microcytosis (manual) Target Cells [place] Cells PT INR APTT Fibrinogen Fibrin Degrad Products Fibrin Degrad Prod, Qt Puncture Site pCO2 pO2 HCO3 ABG pH ABG Total CO2 ABG O2 Saturation ABG Base Excess Philippe Test ABG Potassium A-a O2 Difference Respiratory Index Glucose Lactate Vent Mode Mechanical Rate FiO2 Tidal Volume PEEP Sodium Potassium Chloride Carbon Dioxide Anion Gap BUN Creatinine Est GFR ( Amer) Est GFR (Non-Af Amer) POC Glucose (mg/dL) 188 H 177 H Random Glucose Calcium Phosphorus Magnesium Total Bilirubin AST ALT Alkaline Phosphatase Total Protein Albumin Globulin Albumin/Globulin Ratio Procalcitonin Free T4 1.63 TSH 3rd Generation 0.94 Arterial Blood Potassium 10/16/17 10/16/17 10/16/17 21:34 22:50 23:50 WBC RBC Hgb Hct MCV MCH MCHC RDW Plt Count MPV Neut % (Auto) Lymph % (Auto) Wayne % (Auto) Eos % (Auto) Baso % (Auto) Neut # (Auto) Lymph # (Auto) Wayne # (Auto) Eos # (Auto) Baso # (Auto) Neutrophils % (Manual) Band Neutrophils % Lymphocytes % (Manual) Monocytes % (Manual) Eosinophils % (Manual) Basophils % (Manual) Nucleated RBC % Platelet Estimate Large Platelets Polychromasia Hypochromasia (manual) Poikilocytosis (manual Anisocytosis (manual) Microcytosis (manual) Target Cells Josey Cells PT INR APTT Fibrinogen Fibrin Degrad Products Fibrin Degrad Prod, Qt Puncture Site pCO2 pO2 HCO3 ABG pH ABG Total CO2 ABG O2 Saturation ABG Base Excess Philippe Test ABG Potassium A-a O2 Difference Respiratory Index Glucose Lactate Vent Mode Mechanical Rate FiO2 Tidal Volume PEEP Sodium Potassium Chloride Carbon Dioxide Anion Gap BUN Creatinine Est GFR ( Amer) Est GFR (Non-Af Amer) POC Glucose (mg/dL) 170 H 191 H 204 H Random Glucose Calcium Phosphorus Magnesium Total Bilirubin AST ALT Alkaline Phosphatase Total Protein Albumin Globulin Albumin/Globulin Ratio Procalcitonin Free T4 TSH 3rd Generation Arterial Blood Potassium 10/17/17 10/17/17 10/17/17 01:41 02:48 03:04 WBC 22.9 H RBC 4.19 L Hgb 11.7 L D Hct 36.4 MCV 86.7 MCH 27.9 MCHC 32.2 L RDW 18.0 H Plt Count 50 L MPV 9.7 Neut % (Auto) 86.1 H Lymph % (Auto) 5.3 L Wayne % (Auto) 5.3 Eos % (Auto) 3.1 Baso % (Auto) 0.2 Neut # (Auto) 19.7 H Lymph # (Auto) 1.2 Wayne # (Auto) 1.2 H Eos # (Auto) 0.7 Baso # (Auto) 0.1 Neutrophils % (Manual) 81 H Band Neutrophils % 4 H Lymphocytes % (Manual) 6 L Monocytes % (Manual) 6 Eosinophils % (Manual) 3 Basophils % (Manual) Nucleated RBC % 1 H Platelet Estimate Normal Large Platelets Polychromasia Slight Hypochromasia (manual) Poikilocytosis (manual Slight Anisocytosis (manual) Slight Microcytosis (manual) Target Cells Josey Cells PT INR APTT Fibrinogen Fibrin Degrad Products Fibrin Degrad Prod, Qt Puncture Site pCO2 pO2 HCO3 ABG pH ABG Total CO2 ABG O2 Saturation ABG Base Excess Philippe Test ABG Potassium A-a O2 Difference Respiratory Index Glucose Lactate Vent Mode Mechanical Rate FiO2 Tidal Volume PEEP Sodium Potassium Chloride Carbon Dioxide Anion Gap BUN Creatinine Est GFR ( Amer) Est GFR (Non-Af Amer) POC Glucose (mg/dL) 233 H 237 H Random Glucose Calcium Phosphorus Magnesium Total Bilirubin AST ALT Alkaline Phosphatase Total Protein Albumin Globulin Albumin/Globulin Ratio Procalcitonin Free T4 TSH 3rd Generation Arterial Blood Potassium 10/17/17 10/17/17 10/17/17 03:04 03:04 03:25 WBC RBC Hgb Hct MCV MCH MCHC RDW Plt Count MPV Neut % (Auto) Lymph % (Auto) Wayne % (Auto) Eos % (Auto) Baso % (Auto) Neut # (Auto) Lymph # (Auto) Wayne # (Auto) Eos # (Auto) Baso # (Auto) Neutrophils % (Manual) Band Neutrophils % Lymphocytes % (Manual) Monocytes % (Manual) Eosinophils % (Manual) Basophils % (Manual) Nucleated RBC % Platelet Estimate Large Platelets Polychromasia Hypochromasia (manual) Poikilocytosis (manual Anisocytosis (manual) Microcytosis (manual) Target Cells [place] Cells PT 16.6 H INR 1.5 APTT 67 H D Fibrinogen Fibrin Degrad Products Fibrin Degrad Prod, Qt Puncture Site pCO2 pO2 HCO3 ABG pH ABG Total CO2 ABG O2 Saturation ABG Base Excess Philippe Test ABG Potassium A-a O2 Difference Respiratory Index Glucose Lactate Vent Mode Mechanical Rate FiO2 Tidal Volume PEEP Sodium 138 Potassium 3.1 L Chloride 96 L Carbon Dioxide 30 Anion Gap 15 BUN 42 H Creatinine 2.5 H Est GFR ( Amer) 34 Est GFR (Non-Af Amer) 28 POC Glucose (mg/dL) Random Glucose 248 H Calcium 8.5 L Phosphorus 3.3 Magnesium 1.8 Total Bilirubin 2.4 H AST 30 ALT 29 Alkaline Phosphatase 152 H D Total Protein 6.7 Albumin 3.3 L D Globulin 3.4 Albumin/Globulin Ratio 1.0 Procalcitonin Free T4 TSH 3rd Generation Arterial Blood Potassium 10/17/17 10/17/17 10/17/17 03:52 04:46 05:12 WBC RBC Hgb Hct MCV MCH MCHC RDW Plt Count MPV Neut % (Auto) Lymph % (Auto) Wayne % (Auto) Eos % (Auto) Baso % (Auto) Neut # (Auto) Lymph # (Auto) Wayne # (Auto) Eos # (Auto) Baso # (Auto) Neutrophils % (Manual) Band Neutrophils % Lymphocytes % (Manual) Monocytes % (Manual) Eosinophils % (Manual) Basophils % (Manual) Nucleated RBC % Platelet Estimate Large Platelets Polychromasia Hypochromasia (manual) Poikilocytosis (manual Anisocytosis (manual) Microcytosis (manual) Target Cells Josey Cells PT INR APTT Fibrinogen Fibrin Degrad Products Fibrin Degrad Prod, Qt Puncture Site Gertrude pCO2 55 H pO2 72 L HCO3 26.3 ABG pH 7.33 L ABG Total CO2 30.7 H ABG O2 Saturation 95.6 ABG Base Excess 1.9 Philippe Test Na ABG Potassium 2.8 L A-a O2 Difference 572.0 Respiratory Index 7.9 Glucose 279 H Lactate 1.2 Vent Mode Prvc Mechanical Rate 24 FiO2 100.0 Tidal Volume 500 PEEP 5 Sodium 136.0 Potassium Chloride 99.0 Carbon Dioxide Anion Gap BUN Creatinine Est GFR ( Amer) Est GFR (Non-Af Amer) POC Glucose (mg/dL) 255 H 261 H Random Glucose Calcium Phosphorus Magnesium Total Bilirubin AST ALT Alkaline Phosphatase Total Protein Albumin Globulin Albumin/Globulin Ratio Procalcitonin Free T4 TSH 3rd Generation Arterial Blood Potassium 2.8 L 10/17/17 10/17/17 10/17/17 05:48 06:31 06:31 WBC 21.1 H RBC 4.14 L Hgb 11.5 L Hct 35.9 MCV 86.8 MCH 27.8 MCHC 32.0 L RDW 18.2 H Plt Count 53 L MPV 10.3 Neut % (Auto) 86.3 H Lymph % (Auto) 6.3 L Wayne % (Auto) 5.1 Eos % (Auto) 2.0 Baso % (Auto) 0.3 Neut # (Auto) 18.2 H Lymph # (Auto) 1.3 Wayne # (Auto) 1.1 H Eos # (Auto) 0.4 Baso # (Auto) 0.1 Neutrophils % (Manual) Band Neutrophils % Lymphocytes % (Manual) Monocytes % (Manual) Eosinophils % (Manual) Basophils % (Manual) Nucleated RBC % Platelet Estimate Large Platelets Polychromasia Hypochromasia (manual) Poikilocytosis (manual Anisocytosis (manual) Microcytosis (manual) Target Cells Josey Cells PT INR APTT Fibrinogen Fibrin Degrad Products Fibrin Degrad Prod, Qt Puncture Site pCO2 pO2 HCO3 ABG pH ABG Total CO2 ABG O2 Saturation ABG Base Excess Philippe Test ABG Potassium A-a O2 Difference Respiratory Index Glucose Lactate Vent Mode Mechanical Rate FiO2 Tidal Volume PEEP Sodium 136 Potassium 3.2 L Chloride 95 L Carbon Dioxide 30 Anion Gap 14 BUN 44 H Creatinine 2.6 H Est GFR ( Amer) 32 Est GFR (Non-Af Amer) 26 POC Glucose (mg/dL) 261 H Random Glucose 272 H Calcium 8.3 L Phosphorus 4.2 Magnesium 1.8 Total Bilirubin 2.1 H AST 28 ALT 33 Alkaline Phosphatase 141 H Total Protein 6.5 Albumin 3.2 L Globulin 3.3 Albumin/Globulin Ratio 1.0 Procalcitonin Free T4 TSH 3rd Generation Arterial Blood Potassium 10/17/17 10/17/17 10/17/17 07:44 08:21 09:15 WBC RBC Hgb Hct MCV MCH MCHC RDW Plt Count MPV Neut % (Auto) Lymph % (Auto) [place] % (Auto) Eos % (Auto) Baso % (Auto) Neut # (Auto) Lymph # (Auto) Wayne # (Auto) Eos # (Auto) Baso # (Auto) Neutrophils % (Manual) Band Neutrophils % Lymphocytes % (Manual) Monocytes % (Manual) Eosinophils % (Manual) Basophils % (Manual) Nucleated RBC % Platelet Estimate Large Platelets Polychromasia Hypochromasia (manual) Poikilocytosis (manual Anisocytosis (manual) Microcytosis (manual) Target Cells [place] Cells PT INR APTT Fibrinogen Fibrin Degrad Products Fibrin Degrad Prod, Qt Puncture Site pCO2 pO2 HCO3 ABG pH ABG Total CO2 ABG O2 Saturation ABG Base Excess Philippe Test ABG Potassium A-a O2 Difference Respiratory Index Glucose Lactate Vent Mode Mechanical Rate FiO2 Tidal Volume PEEP Sodium Potassium Chloride Carbon Dioxide Anion Gap BUN Creatinine Est GFR ( Amer) Est GFR (Non-Af Amer) POC Glucose (mg/dL) 328 H 267 H 272 H Random Glucose Calcium Phosphorus Magnesium Total Bilirubin AST ALT Alkaline Phosphatase Total Protein Albumin Globulin Albumin/Globulin Ratio Procalcitonin Free T4 TSH 3rd Generation Arterial Blood Potassium 10/17/17 10/17/17 10/17/17 11:04 11:47 11:47 WBC RBC Hgb Hct MCV MCH MCHC RDW Plt Count MPV Neut % (Auto) Lymph % (Auto) Wayne % (Auto) Eos % (Auto) Baso % (Auto) Neut # (Auto) Lymph # (Auto) Wayne # (Auto) Eos # (Auto) Baso # (Auto) Neutrophils % (Manual) Band Neutrophils % Lymphocytes % (Manual) Monocytes % (Manual) Eosinophils % (Manual) Basophils % (Manual) Nucleated RBC % Platelet Estimate Large Platelets Polychromasia Hypochromasia (manual) Poikilocytosis (manual Anisocytosis (manual) Microcytosis (manual) Target Cells [place] Cells PT INR APTT Fibrinogen 684 H Fibrin Degrad Products Positive H Fibrin Degrad Prod, Qt >40 H Puncture Site pCO2 pO2 HCO3 ABG pH ABG Total CO2 ABG O2 Saturation ABG Base Excess Philippe Test ABG Potassium A-a O2 Difference Respiratory Index Glucose Lactate Vent Mode Mechanical Rate FiO2 Tidal Volume PEEP Sodium Potassium Chloride Carbon Dioxide Anion Gap BUN Creatinine Est GFR ( Amer) Est GFR (Non-Af Amer) POC Glucose (mg/dL) 237 H Random Glucose Calcium Phosphorus Magnesium Total Bilirubin AST ALT Alkaline Phosphatase Total Protein Albumin Globulin Albumin/Globulin Ratio Procalcitonin 23.43 H Free T4 TSH 3rd Generation Arterial Blood Potassium 10/17/17 10/17/17 10/17/17 11:47 11:47 12:02 WBC 17.2 H RBC 4.02 L Hgb 11.2 L Hct 35.0 MCV 86.9 MCH 27.8 MCHC 32.0 L RDW 18.0 H Plt Count 47 L MPV 11.0 Neut % (Auto) 93.7 H Lymph % (Auto) 1.7 L Wayne % (Auto) 2.8 Eos % (Auto) 1.7 Baso % (Auto) 0.1 Neut # (Auto) 16.1 H Lymph # (Auto) 0.3 L Wayne # (Auto) 0.5 Eos # (Auto) 0.3 Baso # (Auto) 0.0 Neutrophils % (Manual) 90 H Band Neutrophils % Lymphocytes % (Manual) 3 L Monocytes % (Manual) 1 Eosinophils % (Manual) 5 H Basophils % (Manual) 1 Nucleated RBC % 2 H Platelet Estimate Decreased L Large Platelets Present Polychromasia Hypochromasia (manual) Slight Poikilocytosis (manual Slight Anisocytosis (manual) Slight Microcytosis (manual) Slight Target Cells Slight [place] Cells Slight PT INR APTT Fibrinogen Fibrin Degrad Products Fibrin Degrad Prod, Qt Puncture Site pCO2 pO2 HCO3 ABG pH ABG Total CO2 ABG O2 Saturation ABG Base Excess Philippe Test ABG Potassium A-a O2 Difference Respiratory Index Glucose Lactate Vent Mode Mechanical Rate FiO2 Tidal Volume PEEP Sodium 139 Potassium 3.7 Chloride 96 L Carbon Dioxide 32 H Anion Gap 15 BUN 34 H Creatinine 2.4 H Est GFR ( Amer) 35 Est GFR (Non-Af Amer) 29 POC Glucose (mg/dL) 201 H Random Glucose 231 H Calcium 8.2 L Phosphorus 5.7 H Magnesium 1.8 Total Bilirubin 2.1 H AST 25 ALT 26 Alkaline Phosphatase 138 H Total Protein 6.8 Albumin 3.4 L Globulin 3.4 Albumin/Globulin Ratio 1.0 Procalcitonin Free T4 TSH 3rd Generation Arterial Blood Potassium 10/17/17 10/17/17 10/17/17 14:13 15:40 16:13 WBC RBC Hgb Hct MCV MCH MCHC RDW Plt Count MPV Neut % (Auto) Lymph % (Auto) Wayne % (Auto) Eos % (Auto) Baso % (Auto) Neut # (Auto) Lymph # (Auto) Wayne # (Auto) Eos # (Auto) Baso # (Auto) Neutrophils % (Manual) Band Neutrophils % Lymphocytes % (Manual) Monocytes % (Manual) Eosinophils % (Manual) Basophils % (Manual) Nucleated RBC % Platelet Estimate Large Platelets Polychromasia Hypochromasia (manual) Poikilocytosis (manual Anisocytosis (manual) Microcytosis (manual) Target Cells [place] Cells PT INR APTT Fibrinogen Fibrin Degrad Products Fibrin Degrad Prod, Qt Puncture Site pCO2 pO2 HCO3 ABG pH ABG Total CO2 ABG O2 Saturation ABG Base Excess Philippe Test ABG Potassium A-a O2 Difference Respiratory Index Glucose Lactate Vent Mode Mechanical Rate FiO2 Tidal Volume PEEP Sodium Potassium Chloride Carbon Dioxide Anion Gap BUN Creatinine Est GFR ( Amer) Est GFR (Non-Af Amer) POC Glucose (mg/dL) 138 H 151 H 140 H Random Glucose Calcium Phosphorus Magnesium Total Bilirubin AST ALT Alkaline Phosphatase Total Protein Albumin Globulin Albumin/Globulin Ratio Procalcitonin Free T4 TSH 3rd Generation Arterial Blood Potassium 10/17/17 10/17/17 17:02 17:57 WBC RBC Hgb Hct MCV MCH MCHC RDW Plt Count MPV Neut % (Auto) Lymph % (Auto) Wayne % (Auto) Eos % (Auto) Baso % (Auto) Neut # (Auto) Lymph # (Auto) Wayne # (Auto) Eos # (Auto) Baso # (Auto) Neutrophils % (Manual) Band Neutrophils % Lymphocytes % (Manual) Monocytes % (Manual) Eosinophils % (Manual) Basophils % (Manual) Nucleated RBC % Platelet Estimate Large Platelets Polychromasia Hypochromasia (manual) Poikilocytosis (manual Anisocytosis (manual) Microcytosis (manual) Target Cells [place] Cells PT INR APTT Fibrinogen Fibrin Degrad Products Fibrin Degrad Prod, Qt Puncture Site pCO2 pO2 HCO3 ABG pH ABG Total CO2 ABG O2 Saturation ABG Base Excess Philippe Test ABG Potassium A-a O2 Difference Respiratory Index Glucose Lactate Vent Mode Mechanical Rate FiO2 Tidal Volume PEEP Sodium Potassium Chloride Carbon Dioxide Anion Gap BUN Creatinine Est GFR ( Amer) Est GFR (Non-Af Amer) POC Glucose (mg/dL) 141 H 164 H Random Glucose Calcium Phosphorus Magnesium Total Bilirubin AST ALT Alkaline Phosphatase Total Protein Albumin Globulin Albumin/Globulin Ratio Procalcitonin Free T4 TSH 3rd Generation Arterial Blood Potassium Attending/Attestation - Attestation I have personally seen and examined this patient.: Yes I have fully participated in the care of the patient.: Yes I have reviewed all pertinent clinical information: Yes Notes (Text): Patient seen and examined in the intensive care unit. Patient remained intubated on ventilatory support requiring high FiO2 Postdialysis patient was started on 3 pressors for hypotension Status post "freeze and rewarming Minimal response to painful stimuli Positive gag and corneal reflexes Being treated for pneumonia with antibiotics Follow-up culture and sensitivity palliative care
[2017-10-17] MEDS ORDERED: Albumin Human 25% (12.5 gm/50 ml) IV ONE (11:04)
[2017-10-17] MEDS: Albumin Human 25% (12.5 gm/50 ml) IV ONE ×2 (11:25→12:15)
[2017-10-17 11:52] LABS: BASO % 0.1 % (0.0-2.0); EOS # 0.3 K/uL (0.0-0.7); EOS % 1.7 % (0.0-4.0); HEMOGLOBIN 11.2 g/dL (12.0-18.0); LYMPH # 0.3 K/uL (1.0-4.3); LYMPH % 1.7 % (20.0-40.0); MEAN CELL VOLUME 86.9 fL (80.0-94.0); MEAN CORPUSCULAR HEMOGLOBIN 27.8 pg (27.0-31.0); MONO # 0.5 K/uL (0.0-0.8); MONO % 2.8 % (0.0-10.0); NEUT # 16.1 K/uL (1.8-7.0); NEUT % 93.7 % (50.0-75.0); NRBC % 1.1 % (0.0-2.0); PLATELET COUNT 47 K/uL (130-400); RBC 4.02 Mil/uL (4.40-5.90); WHITE BLOOD COUNT 17.2 K/uL (4.8-10.8)
[2017-10-17 12:13] LABS: ALBUMIN 3.4 g/dL (3.5-5.0); CALCIUM 8.2 mg/dl (8.6-10.4)
[2017-10-17 12:25] LABS: FDP INTERPRETATION POSITIVE (NEGATIVE); FDP QUANTITY >40 ug/mL (<10)
[2017-10-17 12:35] LABS: FIBRINOGEN 684 mg/dL (200-400)
[2017-10-17 12:41] LABS: ANISOCYTOSIS SLIGHT; BASOPHIL 1 % (0-2); EOSINOPHIL 5 % (0-4); HYPOCHROMIC SLIGHT; LYMPHOCYTE 3 % (20-40); MONOCYTE 1 % (0-10); NEUTROPHIL 90 % (50-75); NUCLEATED RED BLOOD CELL 2 % (0-0); PLATELET ESTIMATE DECREASED (NORMAL); POIKILOCYTOSIS SLIGHT; TOTAL CELLS COUNTED 100
[2017-10-17 12:42] LABS: BURR CELLS SLIGHT; LARGE PLATELETS PRESENT; MICROCYTOSIS SLIGHT; TARGET CELLS SLIGHT
--- NOTE | 2017-10-17 13:11 | PN ---
Copied To: Keagan Schmidt MD Attending MD: Keagan Schmidt MD. DATE: 10/17/2017 NEUROLOGICAL PROBLEM: Anoxic encephalopathy. PHYSICAL EXAMINATION: VITAL SIGNS: Blood pressure 145/66, mean arterial pressure of 92, respiratory rate; on vent, temperature 89.8 on hypothermia blanket, and pulse rate 90. NEUROLOGICAL: The patient is examined at the bedside with the presence of registered nurse. The patient is on sedatives. The patient sedatives been off. The patient will try to improve his conscious level. On two minutes continuously turning off the sedatives, the patient does not restore any response, spontaneous movement or grimacing with noxious stimuli. Eyes are closed. No pupillary reflex. Pupil showed 2.5 mm nonreactive. No oculocephalic. No gag on manipulating the endotracheal tube. 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 The examination, which is unchanged compared with previous examination. EEG does not show any electrographic seizures, diffuse slow activities consistent with his presentation. I was told by nurse the history of awakening and spoken to his , and he was moving all four extremities as well. Continue the present management. Rewarming as per the protocol. Continue DVT prophylaxis. The patient will be followed closely with you. Keagan Schmidt MD
--- NOTE | 2017-10-17 14:04 | CP.PCM.PN ---
<Maria Elena Gastelum - Last Filed: 10/17/17 16:08> Subjective - Date & Time of Evaluation Date of Evaluation: 10/17/17 Time of Evaluation: 14:04 - Subjective Subjective: Cardiology Progress Note - Dr Mayes Patient seen and examined at bedside. Patient is intubated and sedated. S/P code freeze, in process of rewarming. Patient is currently undergoing hemodialysis. Pt was noted to become hypotensive and was placed on a Levophed gtt. ROS not obtained due to present state. Objective - Vital Signs/Intake and Output Vital Signs (last 24 hours): Temp Pulse Resp BP Pulse Ox 95.4 F L 108 H 24 99/51 L 90 L 10/17/17 13:15 10/17/17 13:54 10/17/17 13:54 10/17/17 13:54 10/17/17 13:54 Intake and Output: 10/17/17 10/17/17 06:59 18:59 Intake Total 1389.8 739.2 Output Total 3550 75 Balance -2160.2 664.2 - Medications Medications: Current Medications Albuterol/Ipratropium (Duoneb 3 Mg/0.5 Mg (3 Ml) Ud) 3 ml INH RQ6 [facility] Last Admin: 10/17/17 13:33 Dose: Not Given Artificial Tears (Lacri-Lube) 1 gm OU Q4 [facility] Aspirin (Aspirin Chewable) 81 mg PO DAILY [facility] Last Admin: 10/17/17 12:02 Dose: Not Given Dextrose (Dextrose 50% Inj) 0 ml IV STAT PRN; Protocol PRN Reason: Hypoglycemia Protocol Dextrose (Glutose 15) 0 gm PO ONCE PRN; Protocol PRN Reason: Hypoglycemia Protocol Dextrose (Dextrose 50% Inj) 0 ml IV STAT PRN; Protocol PRN Reason: Hypoglycemia Protocol Dextrose (Glutose 15) 0 gm PO ONCE PRN; Protocol PRN Reason: Hypoglycemia Protocol Glucagon (Glucagen Diagnostic Kit) 0 mg IM STAT PRN; Protocol PRN Reason: Hypoglycemia Protocol Glucagon (Glucagen Diagnostic Kit) 0 mg IM STAT PRN; Protocol PRN Reason: Hypoglycemia Protocol Hydralazine HCl (Apresoline) 10 mg IVP Q6 PRN PRN Reason: keep BP between 160 and 140 Last Admin: 10/17/17 02:45 Dose: 10 mg Dextrose (Dextrose 5% In Water 1000 Ml) 1,000 mls @ 0 mls/hr IV .Q0M PRN; Protocol; Per Protocol PRN Reason: Hypoglycemia Protocol Doxycycline Hyclate 100 mg/ (Sodium Chloride) 100 mls @ 100 mls/hr IVPB Q12H [facility] PRN Reason: Protocol Last Admin: 10/17/17 05:06 Dose: 100 mls/hr Piperacillin Sod/Tazobactam Sod (Zosyn 2.25 Gm Iv Premix) 2.25 gm in 50 mls @ 100 mls/hr IVPB Q6H [facility] PRN Reason: Protocol Last Admin: 10/17/17 12:03 Dose: Not Given Propofol (Diprivan) 1,000 mg in 100 mls @ 4.307 mls/hr IV .[id number] PRN; Protocol; 5 MCG/KG/MIN PRN Reason: TITRATE PER MD ORDER Last Admin: 10/17/17 13:41 Dose: 20 mcg/kg/min, 17.227 mls/hr Dextrose (Dextrose 5% In Water 1000 Ml) 1,000 mls @ 0 mls/hr IV .Q0M PRN; Protocol; Per Protocol PRN Reason: Hypoglycemia Protocol Cisatracurium Besylate 100 mg/ (Dextrose) 260 mls @ 67.18 mls/hr IV .Q3H53M PRN ; 3 MCG/KG/MIN PRN Reason: Protocol Last Titration: 10/17/17 09:30 Dose: 0 mcg/kg/min, 0 mls/hr Fentanyl Citrate 2,500 mcg/ (Sodium Chloride) 250 mls @ 28.71 mls/hr IV .Q8H43M PRN; 2 MCG/KG/HR PRN Reason: Protocol Last Admin: 10/17/17 13:37 Dose: 6 mcg/kg/hr, 86.13 mls/hr Norepinephrine Bitartrate 4 mg (/ Sodium Chloride) 250 mls @ 15 mls/hr IV .[id number] PRN; Protocol; 4 MCG/MIN PRN Reason: TITRATE PER MD ORDER Last Titration: 10/17/17 13:49 Dose: 8 mcg/min, 30 mls/hr Insulin Human Regular (Novolin R) 0 unit SC Q6H [facility] PRN Reason: Protocol Last Admin: 10/17/17 12:04 Dose: Not Given Pantoprazole Sodium (Protonix Inj) 40 mg IVP Q12H [facility] Last Admin: 10/17/17 01:43 Dose: 40 mg Rosuvastatin Calcium (Crestor) 20 mg PO HS [facility] Last Admin: 10/16/17 23:48 Dose: Not Given Sodium Bicarbonate (Sodium Bicarbonate Tab) 650 mg PO TID [facility] Last Admin: 10/17/17 12:03 Dose: Not Given - Labs Labs: 10/17/17 11:47 10/17/17 11:47 PT 16.6 SECONDS (9.7-12.2) H 10/17/17 03:04 INR 1.5 10/17/17 03:04 APTT 67 SECONDS (21-34) H D 10/17/17 03:04 - Additional Findings Additional findings: - Constitutional Appears: Chronically Ill - Head Exam Head Exam: ATRAUMATIC, NORMAL INSPECTION Additional comments: Intubated and sedated - ENT Exam ENT Exam: Mucous Membranes Moist - Neck Exam Additional comments: Left IJ central line - Respiratory Exam Respiratory Exam: Decreased Breath Sounds, NORMAL BREATHING PATTERN. absent: Rales, Rhonchi - Cardiovascular Exam Cardiovascular Exam: REGULAR RHYTHM, +S1, +S2 - GI/Abdominal Exam GI & Abdominal Exam: Soft. absent: Tenderness - Extremities Exam Additional comments: left femoral central venous catether - Neurological Exam Neurological Exam: absent: Alert, Awake, Oriented x3 - Skin Skin Exam: Dry, Normal Color Assessment and Plan - Assessment and Plan (Free Text) Assessment: Patient is a 47 year old male with past medical history of chronic diastolic CHF , COPD, DVT, HTN, DM who presented to the ED for shortness of breath and non- productive cough. [employer] was called on 10/15 which turned into code blue. ROSC was acheieved, patient intubated and sedated in the ICU. Code freeze in progress. Acute Hypoxic Hypercapnic Respiratory Failure -Patient is intubated and sedated -s/p Code Freeze, rewarming in progress -Management per ICU Dyspnea/History of Chronic Diastolic CHF -BNP on admission was 4820 -CXR on admission showed moderate cardiomegaly, right small pleural effusion ( see full report) -Echocardiogram (10/13) shows LVEF of 66%. Mildly dilated LA. Mild concentric LVH. Abnormal septal motion from RV pressure overload. Sclerotic probably bicuspid aortic valve. Trace AI. Mild MR, TR. Severe pulmonary hypertension. No pericardial effusion seen. -Troponin 0.03 -> 0.39 -> 1.27 -Cardiac Cath 01/2017 showed normal coronaries -Given previous recent cath, troponin elevation likely secondary to CPR -Continue Medical management (ASA, Crestor) -No acute cardiac intervention at this time COPD exacerbation -Intubated and sedated -Duonebs Q6H [facility] Hypertension -Hydralazine 10mg Q6H IVP prn -Maintain SBP between 140 mmHg and 160 mmHg Renal Failure -Patient on hemodialysis -Nephro on consult Diabetes Mellitus -HgA1c 9.1 -Insulin sliding scale and accuchecks Hyperkalemia -Potassium 3.7 today -Continue to monitor Further recommendations from Dr Gerber Gastelum DO PGY-2 <Hugo Mayes - Last Filed: 10/18/17 00:03> Objective - Vital Signs/Intake and Output Vital Signs (last 24 hours): Temp Pulse Resp BP Pulse Ox 98.5 F 104 H 17 93/55 L 88 L 10/17/17 22:00 10/17/17 22:40 10/17/17 22:02 10/17/17 22:40 10/17/17 22:40 Intake and Output: 10/17/17 10/18/17 18:59 06:59 Intake Total 1860.3 1368.1 Output Total 900 0 Balance 960.3 1368.1 - Medications Medications: Current Medications Albuterol/Ipratropium (Duoneb 3 Mg/0.5 Mg (3 Ml) Ud) 3 ml INH RQ6 [facility] Last Admin: 10/17/17 19:24 Dose: 3 ml Artificial Tears (Lacri-Lube) 0 gm OU Q4 [facility] Aspirin (Aspirin Chewable) 81 mg PO DAILY [facility] Last Admin: 10/17/17 12:02 Dose: Not Given Dextrose (Dextrose 50% Inj) 0 ml IV STAT PRN; Protocol PRN Reason: Hypoglycemia Protocol Dextrose (Glutose 15) 0 gm PO ONCE PRN; Protocol PRN Reason: Hypoglycemia Protocol Dextrose (Dextrose 50% Inj) 0 ml IV STAT PRN; Protocol PRN Reason: Hypoglycemia Protocol Dextrose (Glutose 15) 0 gm PO ONCE PRN; Protocol PRN Reason: Hypoglycemia Protocol Glucagon (Glucagen Diagnostic Kit) 0 mg IM STAT PRN; Protocol PRN Reason: Hypoglycemia Protocol Glucagon (Glucagen Diagnostic Kit) 0 mg IM STAT PRN; Protocol PRN Reason: Hypoglycemia Protocol Hydralazine HCl (Apresoline) 10 mg IVP Q6 PRN PRN Reason: keep BP between 160 and 140 Last Admin: 10/17/17 02:45 Dose: 10 mg Dextrose (Dextrose 5% In Water 1000 Ml) 1,000 mls @ 0 mls/hr IV .Q0M PRN; Protocol; Per Protocol PRN Reason: Hypoglycemia Protocol Doxycycline Hyclate 100 mg/ (Sodium Chloride) 100 mls @ 100 mls/hr IVPB Q12H [facility] PRN Reason: Protocol Last Admin: 10/17/17 18:02 Dose: 100 mls/hr Piperacillin Sod/Tazobactam Sod (Zosyn 2.25 Gm Iv Premix) 2.25 gm in 50 mls @ 100 mls/hr IVPB Q6H [facility] PRN Reason: Protocol Last Admin: 10/17/17 18:02 Dose: 100 mls/hr Propofol (Diprivan) 1,000 mg in 100 mls @ 4.307 mls/hr IV .[id number] PRN; Protocol; 5 MCG/KG/MIN PRN Reason: TITRATE PER MD ORDER Last Titration: 10/17/17 20:00 Dose: 10 mcg/kg/min, 8.614 mls/hr Dextrose (Dextrose 5% In Water 1000 Ml) 1,000 mls @ 0 mls/hr IV .Q0M PRN; Protocol; Per Protocol PRN Reason: Hypoglycemia Protocol Cisatracurium Besylate 100 mg/ (Dextrose) 260 mls @ 67.18 mls/hr IV .Q3H53M PRN ; 3 MCG/KG/MIN PRN Reason: Protocol Last Titration: 10/17/17 09:30 Dose: 0 mcg/kg/min, 0 mls/hr Fentanyl Citrate 2,500 mcg/ (Sodium Chloride) 250 mls @ 28.71 mls/hr IV .Q8H43M PRN; 2 MCG/KG/HR PRN Reason: Protocol Last Titration: 10/17/17 21:00 Dose: 0 mcg/kg/hr, 0 mls/hr Vasopressin 40 units/ Sodium (Chloride) 40 mls @ 0.6 mls/hr IV .Q24H [facility]; 0.01 UNITS/MIN PRN Reason: Protocol Last Admin: 10/17/17 19:48 Dose: 0.04 units/min, 2.4 mls/hr Norepinephrine Bitartrate 16 (mg/ Sodium Chloride) 500 mls @ 7.5 mls/hr IV .Q24H PRN; Protocol; 4 MCG/MIN PRN Reason: TITRATE PER MD ORDER Phenylephrine HCl 60 mg/ (Sodium Chloride) 500 mls @ 10 mls/hr IV .Q24H PRN; Protocol; 20 MCG/MIN PRN Reason: TITRATE PER MD ORDER Insulin Human Regular (Novolin R) 0 unit SC Q6H [facility] PRN Reason: Protocol Last Admin: 10/17/17 18:46 Dose: Not Given Lorazepam (Ativan) 1 mg IVP Q4H PRN PRN Reason: Agitation Last Admin: 10/17/17 22:15 Dose: 1 mg Pantoprazole Sodium (Protonix Inj) 40 mg IVP Q12H [facility] Last Admin: 10/17/17 13:00 Dose: 40 mg Rosuvastatin Calcium (Crestor) 20 mg PO HS [facility] Last Admin: 10/17/17 21:18 Dose: 20 mg Sodium Bicarbonate (Sodium Bicarbonate Tab) 650 mg PO TID [facility] Last Admin: 10/17/17 18:05 Dose: 650 mg - Labs Labs: 10/17/17 19:05 10/17/17 19:05 PT 16.6 SECONDS (9.7-12.2) H 10/17/17 03:04 INR 1.5 10/17/17 03:04 APTT 67 SECONDS (21-34) H D 10/17/17 03:04 Assessment and Plan - Assessment and Plan (Free Text) Assessment: Patient seen and evaluated. Plan of care d/w the resident and as documented
--- NOTE | 2017-10-17 15:20 | CARD ---
APPROVED REPORT Date of service: 10/14/2017 EKG Measurement Heart [id number] [place] [id number] <Conclusion> Normal sinus rhythm Indeterminate axis Right bundle branch block Abnormal ECG
--- NOTE | 2017-10-17 15:21 | CARD ---
APPROVED REPORT Date of service: 10/13/2017 EKG Measurement Heart [id number] [place] [id number] <Conclusion> Normal sinus rhythm Right bundle branch block Abnormal ECG
--- NOTE | 2017-10-17 15:21 | CARD ---
APPROVED REPORT Date of service: 10/13/2017 EKG Measurement Heart [id number] [place] [id number] <Conclusion> Sinus tachycardia Right bundle branch block Abnormal ECG
[2017-10-17] MEDS: Phenylephrine 30 MG in Sodium Chloride 0.9% 250 ML IV PRN ×2 (15:30→21:15)
[2017-10-17] MEDS: Norepinephrine 8 MG in Sodium Chloride 0.9% 242 ML IV PRN ×2 (16:00→21:46)
--- NOTE | 2017-10-17 16:19 | CP.PCM.PN ---
Subjective - Date & Time of Evaluation Date of Evaluation: 10/17/17 Time of Evaluation: 16:17 - Subjective Subjective: Patient is intubated, sedated, on MV support, S/P HD today. BP low, pressors to be started. Objective - Vital Signs/Intake and Output Vital Signs (last 24 hours): Temp Pulse Resp BP Pulse Ox 95.7 F L 110 H 25 H 76/42 L 91 L 10/17/17 13:45 10/17/17 15:30 10/17/17 15:30 10/17/17 15:30 10/17/17 15:30 Intake and Output: 10/17/17 10/17/17 06:59 18:59 Intake Total 1389.8 1277.9 Output Total 3550 890 Balance -2160.2 387.9 - Medications Medications: Current Medications Albuterol/Ipratropium (Duoneb 3 Mg/0.5 Mg (3 Ml) Ud) 3 ml INH RQ6 [facility] Last Admin: 10/17/17 13:33 Dose: Not Given Artificial Tears (Lacri-Lube) 1 gm OU Q4 [facility] Aspirin (Aspirin Chewable) 81 mg PO DAILY [facility] Last Admin: 10/17/17 12:02 Dose: Not Given Dextrose (Dextrose 50% Inj) 0 ml IV STAT PRN; Protocol PRN Reason: Hypoglycemia Protocol Dextrose (Glutose 15) 0 gm PO ONCE PRN; Protocol PRN Reason: Hypoglycemia Protocol Dextrose (Dextrose 50% Inj) 0 ml IV STAT PRN; Protocol PRN Reason: Hypoglycemia Protocol Dextrose (Glutose 15) 0 gm PO ONCE PRN; Protocol PRN Reason: Hypoglycemia Protocol Glucagon (Glucagen Diagnostic Kit) 0 mg IM STAT PRN; Protocol PRN Reason: Hypoglycemia Protocol Glucagon (Glucagen Diagnostic Kit) 0 mg IM STAT PRN; Protocol PRN Reason: Hypoglycemia Protocol Hydralazine HCl (Apresoline) 10 mg IVP Q6 PRN PRN Reason: keep BP between 160 and 140 Last Admin: 10/17/17 02:45 Dose: 10 mg Dextrose (Dextrose 5% In Water 1000 Ml) 1,000 mls @ 0 mls/hr IV .Q0M PRN; Protocol; Per Protocol PRN Reason: Hypoglycemia Protocol Doxycycline Hyclate 100 mg/ (Sodium Chloride) 100 mls @ 100 mls/hr IVPB Q12H [facility] PRN Reason: Protocol Last Admin: 10/17/17 05:06 Dose: 100 mls/hr Piperacillin Sod/Tazobactam Sod (Zosyn 2.25 Gm Iv Premix) 2.25 gm in 50 mls @ 100 mls/hr IVPB Q6H [facility] PRN Reason: Protocol Last Admin: 10/17/17 12:03 Dose: Not Given Propofol (Diprivan) 1,000 mg in 100 mls @ 4.307 mls/hr IV .[id number] PRN; Protocol; 5 MCG/KG/MIN PRN Reason: TITRATE PER MD ORDER Last Admin: 10/17/17 13:41 Dose: 20 mcg/kg/min, 17.227 mls/hr Dextrose (Dextrose 5% In Water 1000 Ml) 1,000 mls @ 0 mls/hr IV .Q0M PRN; Protocol; Per Protocol PRN Reason: Hypoglycemia Protocol Cisatracurium Besylate 100 mg/ (Dextrose) 260 mls @ 67.18 mls/hr IV .Q3H53M PRN ; 3 MCG/KG/MIN PRN Reason: Protocol Last Titration: 10/17/17 09:30 Dose: 0 mcg/kg/min, 0 mls/hr Fentanyl Citrate 2,500 mcg/ (Sodium Chloride) 250 mls @ 28.71 mls/hr IV .Q8H43M PRN; 2 MCG/KG/HR PRN Reason: Protocol Last Titration: 10/17/17 14:30 Dose: 4 mcg/kg/hr, 57.42 mls/hr Norepinephrine Bitartrate 4 mg (/ Sodium Chloride) 250 mls @ 15 mls/hr IV .[id number] PRN; Protocol; 4 MCG/MIN PRN Reason: TITRATE PER MD ORDER Last Titration: 10/17/17 15:00 Dose: 20 mcg/min, 75 mls/hr Phenylephrine HCl 30 mg/ (Sodium Chloride) 253 mls @ 10.12 mls/hr IV .Q24H PRN ; Protocol; 20 MCG/MIN PRN Reason: TITRATE PER MD ORDER Last Titration: 10/17/17 16:05 Dose: 30 mcg/min, 15.18 mls/hr Insulin Human Regular (Novolin R) 0 unit SC Q6H [facility]A PRN Reason: Protocol Last Admin: 10/17/17 12:04 Dose: Not Given Pantoprazole Sodium (Protonix Inj) 40 mg IVP Q12H [facility] Last Admin: 10/17/17 13:00 Dose: 40 mg Rosuvastatin Calcium (Crestor) 20 mg PO HS [facility] Last Admin: 10/16/17 23:48 Dose: Not Given Sodium Bicarbonate (Sodium Bicarbonate Tab) 650 mg PO TID [facility] Last Admin: 10/17/17 14:49 Dose: Not Given - Labs Labs: 10/17/17 11:47 10/17/17 11:47 PT 16.6 SECONDS (9.7-12.2) H 10/17/17 03:04 INR 1.5 10/17/17 03:04 APTT 67 SECONDS (21-34) H D 10/17/17 03:04 - Constitutional Appears: In Acute Distress, Chronically Ill - Head Exam Head Exam: ATRAUMATIC, NORMAL INSPECTION, NORMOCEPHALIC - Eye Exam Eye Exam: EOMI, Normal appearance Additional comments: slow reaction to light - ENT Exam ENT Exam: Mucous Membranes Dry - Neck Exam Neck Exam: Normal Inspection - Respiratory Exam Respiratory Exam: Decreased Breath Sounds - Cardiovascular Exam Cardiovascular Exam: Tachycardia, Irregular Rhythm - GI/Abdominal Exam GI & Abdominal Exam: Distended - Rectal Exam Rectal Exam: Deferred - Exam Exam: NORMAL INSPECTION - Extremities Exam Extremities Exam: Normal Capillary Refill, Normal Inspection - Back Exam Back Exam: NORMAL INSPECTION - Neurological Exam Neurological Exam: Motor Sensory Deficit Neuro motor strength exam: Left Upper Extremity: 0, Right Upper Extremity: 0, Left Lower Extremity: 0, Right Lower Extremity: 0 - Psychiatric Exam Psychiatric exam: Flat Affect - Skin Skin Exam: Pallor Assessment and Plan - Assessment and Plan (Free Text) Assessment: Patient is on full life support, in acute distress with BP 76/42, HR 110. Levophed and Phenylephrin on board for BP support. S/P HD today. Patient is reteiningb urine seen by poor urine output of 150 cc/day and weight gain ; was 304 lb on 10/14/17, and 324 lb today. EEG results still pending. Family meeting attended by patient's mother Betina and Barbie. Patient's clinical condition reviewed by me. I elicited family's understanding and expectations of care. Family demonstrated lack of insight. Both, and mother were more focused on how and why this happened than on present situation and goals of care. I helped them understand the nature of KS, statistics and its consequences. I also related patient's past medical Hx to this event of KS. Family denied that patient was not compliant with Bi Pap at home, as previously mentioned in Medical records. They stated understanding. Goals of care discussed. Family is full of hope for recovery, very yarsanism and heavily depends on God for help with difficulties of daily leaving. Family accepted offered Spiritual support by Motorcycle Designer Maria Luisa. said she talked to patient and asked him to open his eyes , what he did. She sees it as the sign of miracle. I supported her and said that we still do not have the EEG result, what will guide further care. Code Status discussion initiated. Family is not ready to think about it. Their focus is still on recovery. I supported them and offered basic information on DNR/DNI. Impression * Most likely anoxic brain injury, post KS * Acute renal failure due to poor perfusion * Severe Hypotension, fluid retention resulting in weight gain * Family in state of shock unable to comprehend severity of situation, hopes for " miracle" * Spiritual distress * Patient's wishes for end of life care are not known * Family requests Full Code Suggestions * Further goals of care should be mostly based on EEG results and overall clinical presentation * Support BP * Renal consult * Keep family with daily updates on condition to help them manage their anxiety * Pastoral care for spiritual support * FULL CODE Palliative care will continue to fallow up with patient and family to assist them in this very difficult time. Advance planing 35 min.
[2017-10-17] MEDS ORDERED: Acetaminophen 650mg/20.3ml solution UD PO STA (17:51)
[2017-10-17 19:19] LABS: HEMOGLOBIN 11.3 g/dL (12.0-18.0); MEAN CORPUSCULAR HGB CONC 31.5 g/dL (33.0-37.0); MEAN PLATELET VOLUME 11.9 fL (7.2-11.7); RBC 4.05 Mil/uL (4.40-5.90); RED CELL DISTRIBUTION WIDTH 18.2 % (11.5-14.5); WHITE BLOOD COUNT 20.5 K/uL (4.8-10.8)
[2017-10-17 19:24] LABS: MEAN CELL VOLUME 88.9 fL (80.0-94.0)
[2017-10-17 20:07] LABS: CALCIUM 8.6 mg/dl (8.6-10.4)
[2017-10-17 20:40] LABS: CK-MB 9.13 ng/mL (0.0-3.38); TROPONIN I 0.489 ng/mL (0.00-0.120)
[2017-10-17 21:58] LABS: ARTERIAL BLOOD GAS HCO3 22.3 mmol/L (21-28); ARTERIAL BLOOD GAS HEMOGLOBIN 11.2 g/dL (11.7-17.4); ARTERIAL BLOOD GAS O2 SAT 92.5 % (95-98); ARTERIAL BLOOD GAS PCO2 80 mm/Hg (35-45); ARTERIAL BLOOD GAS PH 7.14 (7.35-7.45); ARTERIAL BLOOD GAS PO2 64 mm/Hg (80-100); ARTERIAL BLOOD GAS TCO2 29.7 mmol/L (22-28)
--- NOTE | 2017-10-17 22:33 | CP.PCM.PN ---
Objective - Vital Signs/Intake and Output Vital Signs (last 24 hours): Temp Pulse Resp BP Pulse Ox 98.8 F 104 H 25 H 75/42 L 92 L 10/17/17 21:00 10/17/17 21:46 10/17/17 21:46 10/17/17 21:46 10/17/17 21:46 Intake and Output: 10/17/17 10/18/17 18:59 06:59 Intake Total 1860.3 1131.0 Output Total 900 0 Balance 960.3 1131.0 - Medications Medications: Current Medications Albuterol/Ipratropium (Duoneb 3 Mg/0.5 Mg (3 Ml) Ud) 3 ml INH RQ6 ANABELLA Last Admin: 10/17/17 19:24 Dose: 3 ml Artificial Tears (Lacri-Lube) 0 gm OU Q4 ANABELLA Aspirin (Aspirin Chewable) 81 mg PO DAILY [facility] Last Admin: 10/17/17 12:02 Dose: Not Given Dextrose (Dextrose 50% Inj) 0 ml IV STAT PRN; Protocol PRN Reason: Hypoglycemia Protocol Dextrose (Glutose 15) 0 gm PO ONCE PRN; Protocol PRN Reason: Hypoglycemia Protocol Dextrose (Dextrose 50% Inj) 0 ml IV STAT PRN; Protocol PRN Reason: Hypoglycemia Protocol Dextrose (Glutose 15) 0 gm PO ONCE PRN; Protocol PRN Reason: Hypoglycemia Protocol Glucagon (Glucagen Diagnostic Kit) 0 mg IM STAT PRN; Protocol PRN Reason: Hypoglycemia Protocol Glucagon (Glucagen Diagnostic Kit) 0 mg IM STAT PRN; Protocol PRN Reason: Hypoglycemia Protocol Hydralazine HCl (Apresoline) 10 mg IVP Q6 PRN PRN Reason: keep BP between 160 and 140 Last Admin: 10/17/17 02:45 Dose: 10 mg Dextrose (Dextrose 5% In Water 1000 Ml) 1,000 mls @ 0 mls/hr IV .Q0M PRN; Protocol; Per Protocol PRN Reason: Hypoglycemia Protocol Doxycycline Hyclate 100 mg/ (Sodium Chloride) 100 mls @ 100 mls/hr IVPB Q12H [facility] PRN Reason: Protocol Last Admin: 10/17/17 18:02 Dose: 100 mls/hr Piperacillin Sod/Tazobactam Sod (Zosyn 2.25 Gm Iv Premix) 2.25 gm in 50 mls @ 100 mls/hr IVPB Q6H [facility] PRN Reason: Protocol Last Admin: 10/17/17 18:02 Dose: 100 mls/hr Propofol (Diprivan) 1,000 mg in 100 mls @ 4.307 mls/hr IV .[id number] PRN; Protocol; 5 MCG/KG/MIN PRN Reason: TITRATE PER MD ORDER Last Titration: 10/17/17 20:00 Dose: 10 mcg/kg/min, 8.614 mls/hr Dextrose (Dextrose 5% In Water 1000 Ml) 1,000 mls @ 0 mls/hr IV .Q0M PRN; Protocol; Per Protocol PRN Reason: Hypoglycemia Protocol Cisatracurium Besylate 100 mg/ (Dextrose) 260 mls @ 67.18 mls/hr IV .Q3H53M PRN ; 3 MCG/KG/MIN PRN Reason: Protocol Last Titration: 10/17/17 09:30 Dose: 0 mcg/kg/min, 0 mls/hr Fentanyl Citrate 2,500 mcg/ (Sodium Chloride) 250 mls @ 28.71 mls/hr IV .Q8H43M PRN; 2 MCG/KG/HR PRN Reason: Protocol Last Titration: 10/17/17 20:25 Dose: 2 mcg/kg/hr, 28.71 mls/hr Phenylephrine HCl 30 mg/ (Sodium Chloride) 253 mls @ 10.12 mls/hr IV .Q24H PRN ; Protocol; 20 MCG/MIN PRN Reason: TITRATE PER MD ORDER Last Admin: 10/17/17 21:15 Dose: 180 mcg/min, 91.08 mls/hr Norepinephrine Bitartrate 8 mg (/ Sodium Chloride) 250 mls @ 7.5 mls/hr IV .Q24H PRN; Protocol; 4 MCG/MIN PRN Reason: TITRATE PER MD ORDER Last Admin: 10/17/17 21:46 Dose: 20 mcg/min, 37.5 mls/hr Vasopressin 40 units/ Sodium (Chloride) 40 mls @ 0.6 mls/hr IV .Q24H [facility]; 0.01 UNITS/MIN PRN Reason: Protocol Last Admin: 10/17/17 19:48 Dose: 0.04 units/min, 2.4 mls/hr Insulin Human Regular (Novolin R) 0 unit SC Q6H [facility] PRN Reason: Protocol Last Admin: 10/17/17 18:46 Dose: Not Given Lorazepam (Ativan) 1 mg IVP Q4H PRN PRN Reason: Agitation Last Admin: 10/17/17 22:15 Dose: 1 mg Pantoprazole Sodium (Protonix Inj) 40 mg IVP Q12H [facility] Last Admin: 10/17/17 13:00 Dose: 40 mg Rosuvastatin Calcium (Crestor) 20 mg PO HS [facility] Last Admin: 10/17/17 21:18 Dose: 20 mg Sodium Bicarbonate (Sodium Bicarbonate Tab) 650 mg PO TID [facility] Last Admin: 10/17/17 18:05 Dose: 650 mg - Labs Labs: 10/17/17 19:05 10/17/17 19:05 PT 16.6 SECONDS (9.7-12.2) H 10/17/17 03:04 INR 1.5 10/17/17 03:04 APTT 67 SECONDS (21-34) H D 10/17/17 03:04
[2017-10-18] MEDS: SODIUM CHLORIDE 0.9% IV PRN ×2 (00:14→06:17)
[2017-10-18] MEDS: PHENYLEPHRINE IV PRN ×2 (00:14→06:17)
[2017-10-18] MEDS: (Novolin R) Insulin Human Regular 100 units/ml vial SC SCH ×4 (00:15→17:47)
[2017-10-18] MEDS: Albuterol-Ipratrop 3 mg / 0.5 (3 ml) UD INH SCH ×4 (01:33→19:01)
[2017-10-18] MEDS: Piperacill/Tazo 2.25gm in Dex 2.25 GM/50 ML BAG IVPB SCH (04:30)
[2017-10-18 05:34] LABS: ARTERIAL BLOOD GAS HEMOGLOBIN 11.7 g/dL (11.7-17.4); ARTERIAL BLOOD GAS O2 SAT 97.9 % (95-98); ARTERIAL BLOOD GAS PCO2 84 mm/Hg (35-45); ARTERIAL BLOOD GAS PO2 100 mm/Hg (80-100); ARTERIAL BLOOD GAS TCO2 28.7 mmol/L (22-28)
[2017-10-18 06:33] LABS: BASO % 0.1 % (0.0-2.0); EOS # 0.2 K/uL (0.0-0.7); EOS % 0.7 % (0.0-4.0); HEMOGLOBIN 10.4 g/dL (12.0-18.0); LYMPH # 0.9 K/uL (1.0-4.3); LYMPH % 4.3 % (20.0-40.0); MEAN CELL VOLUME 89.7 fL (80.0-94.0); MEAN CORPUSCULAR HEMOGLOBIN 27.6 pg (27.0-31.0); MEAN CORPUSCULAR HGB CONC 30.8 g/dL (33.0-37.0); MEAN PLATELET VOLUME 11.8 fL (7.2-11.7); MONO # 2.1 K/uL (0.0-0.8); MONO % 10.4 % (0.0-10.0); NEUT # 17.1 K/uL (1.8-7.0); NEUT % 84.5 % (50.0-75.0); NRBC % 1.2 % (0.0-2.0); PLATELET COUNT 61 K/uL (130-400); RBC 3.77 Mil/uL (4.40-5.90); RED CELL DISTRIBUTION WIDTH 18.1 % (11.5-14.5); WHITE BLOOD COUNT 20.3 K/uL (4.8-10.8)
[2017-10-18 07:02] LABS: ALB/GLOB RATIO 1.1 (1.0-2.1); ALBUMIN 3.6 g/dL (3.5-5.0); CALCIUM 8.2 mg/dl (8.6-10.4)
--- NOTE | 2017-10-18 08:22 | RAD ---
Date of service: 10/18/2017 HISTORY: intubated COMPARISON: Portable chest 10/17/2017. FINDINGS: Endotracheal tube is unchanged in position as well as left central venous dialysis catheter. Nasogastric tube is again seen entering into the left upper quadrant abdomen. LUNGS: Heterogeneous diffuse left-sided opacity persists without interval change. Improved aeration is seen at the right hemithorax with limited patchy infiltrate question at the right base. PLEURA: No prominent pneumothorax or pleural effusion bilaterally. Left costophrenic sulcus is excluded. Repeat radiograph recommended. CARDIOVASCULAR: Prominent cardiac silhouette remains. Underlying pulmonary vascular congestion likely not significantly changed. OSSEOUS STRUCTURES: No significant abnormalities. VISUALIZED UPPER ABDOMEN: Normal. OTHER FINDINGS: None. IMPRESSION: Asymmetric opacity is appreciate the left chest relatively diffusely in a heterogeneous pattern suspicious for infiltrate with underlying pulmonary vascular congestion not significantly changed. Limited patchy airspace disease is appreciate the right base however there is arm proved aeration at the right lung diffusely in the interval.
[2017-10-18 08:31] LABS: ANISOCYTOSIS SLIGHT; BANDS 3 % (0-2); EOSINOPHIL 1 % (0-4); LYMPHOCYTE 6 % (20-40); MONOCYTE 9 % (0-10); NEUTROPHIL 81 % (50-75); NUCLEATED RED BLOOD CELL 1 % (0-0); PLATELET ESTIMATE DECREASED (NORMAL); POIKILOCYTOSIS SLIGHT; TOTAL CELLS COUNTED 100
[2017-10-18 08:32] LABS: HYPOCHROMIC SLIGHT; LARGE PLATELETS PRESENT; TARGET CELLS SLIGHT
[2017-10-18 08:33] LABS: BURR CELLS SLIGHT
--- NOTE | 2017-10-18 08:42 | RAD ---
Date of service: 10/17/2017 HISTORY: intubated COMPARISON: Portable chest 10/16/2017 FINDINGS: Endotracheal tube is not significantly changed in position. A nasogastric tube is placed likely entry into the abdomen. Beam penetration is difficult in this patient. LUNGS: Heterogeneous patchy density remains greater the left and right chest with right base minimally affected. Underlying pulmonary edema again identified. Prominent cardiomediastinal silhouette stable. PLEURA: No pneumothorax bilaterally. No right pleural effusion appears smaller pleural effusion not excluded. OSSEOUS STRUCTURES: No significant abnormalities. VISUALIZED UPPER ABDOMEN: Normal. OTHER FINDINGS: None. IMPRESSION: No significant interval change in pulmonary edema and heterogeneous patchy density at the left chest relatively diffusely present. Limited patchy density right base unchanged.
[2017-10-18] MEDS ORDERED: Vancomycin 1 gm/NS 200 ml 1 GM/200 ML BAG IVPB ONE (09:16)
--- NOTE | 2017-10-18 09:52 | CP.PCM.PN ---
<Maria Elena Gastelum - Last Filed: 10/18/17 12:47> Subjective - Date & Time of Evaluation Date of Evaluation: 10/18/17 Time of Evaluation: 09:52 - Subjective Subjective: Cardiology Progress Note - Dr Mayes Patient seen and examined at bedside. Per nursing no acute events overnight. Intubated, sedation is off. Patient opens his eyes to painful stimuli, does not follow commands. ROS not obtained. Objective - Vital Signs/Intake and Output Vital Signs (last 24 hours): Temp Pulse Resp BP Pulse Ox 98.5 F 105 H 25 H 84/50 L 99 10/18/17 04:00 10/18/17 06:02 10/18/17 04:27 10/18/17 06:17 10/18/17 06:02 Intake and Output: 10/18/17 10/18/17 06:59 18:59 Intake Total 2850.1 150 Output Total 0 Balance 2850.1 150 - Medications Medications: Current Medications Albuterol/Ipratropium (Duoneb 3 Mg/0.5 Mg (3 Ml) Ud) 3 ml INH RQ6 ANABELLA Last Admin: 10/18/17 07:39 Dose: 3 ml Artificial Tears (Lacri-Lube) 0 gm OU Q4 ANABELLA Aspirin (Aspirin Chewable) 81 mg PO DAILY ANABELLA Last Admin: 10/17/17 12:02 Dose: Not Given Dextrose (Dextrose 50% Inj) 0 ml IV STAT PRN; Protocol PRN Reason: Hypoglycemia Protocol Dextrose (Glutose 15) 0 gm PO ONCE PRN; Protocol PRN Reason: Hypoglycemia Protocol Dextrose (Dextrose 50% Inj) 0 ml IV STAT PRN; Protocol PRN Reason: Hypoglycemia Protocol Dextrose (Glutose 15) 0 gm PO ONCE PRN; Protocol PRN Reason: Hypoglycemia Protocol Glucagon (Glucagen Diagnostic Kit) 0 mg IM STAT PRN; Protocol PRN Reason: Hypoglycemia Protocol Glucagon (Glucagen Diagnostic Kit) 0 mg IM STAT PRN; Protocol PRN Reason: Hypoglycemia Protocol Hydralazine HCl (Apresoline) 10 mg IVP Q6 PRN PRN Reason: keep BP between 160 and 140 Last Admin: 10/17/17 02:45 Dose: 10 mg Dextrose (Dextrose 5% In Water 1000 Ml) 1,000 mls @ 0 mls/hr IV .Q0M PRN; Protocol; Per Protocol PRN Reason: Hypoglycemia Protocol Doxycycline Hyclate 100 mg/ (Sodium Chloride) 100 mls @ 100 mls/hr IVPB Q12H ANABELLA PRN Reason: Protocol Last Admin: 10/18/17 05:01 Dose: 100 mls/hr Piperacillin Sod/Tazobactam Sod (Zosyn 2.25 Gm Iv Premix) 2.25 gm in 50 mls @ 100 mls/hr IVPB Q6H ANABELLA PRN Reason: Protocol Last Admin: 10/18/17 04:30 Dose: 100 mls/hr Propofol (Diprivan) 1,000 mg in 100 mls @ 4.307 mls/hr IV .[id number] PRN; Protocol; 5 MCG/KG/MIN PRN Reason: TITRATE PER MD ORDER Last Titration: 10/17/17 20:00 Dose: 10 mcg/kg/min, 8.614 mls/hr Dextrose (Dextrose 5% In Water 1000 Ml) 1,000 mls @ 0 mls/hr IV .Q0M PRN; Protocol; Per Protocol PRN Reason: Hypoglycemia Protocol Cisatracurium Besylate 100 mg/ (Dextrose) 260 mls @ 67.18 mls/hr IV .Q3H53M PRN ; 3 MCG/KG/MIN PRN Reason: Protocol Last Titration: 10/17/17 09:30 Dose: 0 mcg/kg/min, 0 mls/hr Fentanyl Citrate 2,500 mcg/ (Sodium Chloride) 250 mls @ 28.71 mls/hr IV .Q8H43M PRN; 2 MCG/KG/HR PRN Reason: Protocol Last Titration: 10/17/17 21:00 Dose: 0 mcg/kg/hr, 0 mls/hr Vasopressin 40 units/ Sodium (Chloride) 40 mls @ 0.6 mls/hr IV .Q24H ANABELLA; 0.01 UNITS/MIN PRN Reason: Protocol Last Admin: 10/18/17 02:28 Dose: 0.04 units/min, 2.4 mls/hr Norepinephrine Bitartrate 16 (mg/ Sodium Chloride) 500 mls @ 7.5 mls/hr IV .Q24H PRN; Protocol; 4 MCG/MIN PRN Reason: TITRATE PER MD ORDER Last Titration: 10/18/17 09:00 Dose: 16 mcg/min, 30 mls/hr Phenylephrine HCl 60 mg/ (Sodium Chloride) 500 mls @ 10 mls/hr IV .Q24H PRN; Protocol; 20 MCG/MIN PRN Reason: TITRATE PER MD ORDER Last Admin: 10/18/17 06:17 Dose: 150 mcg/min, 75 mls/hr Vancomycin/Sodium Chloride (Vancomycin 1 Gm/Ns 200 Ml) 1 gm in 200 mls @ 133 mls/hr IVPB ONCE ONE PRN Reason: Protocol Stop: 10/18/17 10:46 Insulin Human Regular (Novolin R) 0 unit SC Q6H ANABELLA PRN Reason: Protocol Last Admin: 10/18/17 06:14 Dose: 2 units Lorazepam (Ativan) 1 mg IVP Q4H PRN PRN Reason: Agitation Last Admin: 10/17/17 22:15 Dose: 1 mg Pantoprazole Sodium (Protonix Inj) 40 mg IVP Q12H [facility] Last Admin: 10/18/17 01:16 Dose: 40 mg Rosuvastatin Calcium (Crestor) 20 mg PO HS [facility] Last Admin: 10/17/17 21:18 Dose: 20 mg Sodium Bicarbonate (Sodium Bicarbonate Tab) 650 mg PO TID [facility] Last Admin: 10/17/17 18:05 Dose: 650 mg - Labs Labs: 10/18/17 06:21 10/18/17 06:21 PT 16.6 SECONDS (9.7-12.2) H 10/17/17 03:04 INR 1.5 10/17/17 03:04 APTT 67 SECONDS (21-34) H D 10/17/17 03:04 - Additional Findings Additional findings: - Constitutional Appears: Chronically Ill - Head Exam Head Exam: ATRAUMATIC, NORMAL INSPECTION Additional comments: Intubated and sedated - ENT Exam ENT Exam: Mucous Membranes Moist - Neck Exam Additional comments: Left IJ central line - Respiratory Exam Respiratory Exam: Decreased Breath Sounds, NORMAL BREATHING PATTERN. absent: Rales, Rhonchi - Cardiovascular Exam Cardiovascular Exam: REGULAR RHYTHM, +S1, +S2 - GI/Abdominal Exam GI & Abdominal Exam: Soft. absent: Tenderness - Extremities Exam Additional comments: left femoral central venous catether - Neurological Exam Neurological Exam: absent: Alert, Awake, Oriented x3 - Skin Skin Exam: Dry, Normal Color Assessment and Plan - Assessment and Plan (Free Text) Assessment: Patient is a 47 year old male with past medical history of chronic diastolic CHF , COPD, DVT, HTN, DM who presented to the ED for shortness of breath and non- productive cough. [employer]PERATOR was called on 10/15 which turned into code blue. ROSC was acheieved, patient intubated and sedated in the ICU. S/P Code freeze. Acute Hypoxic Hypercapnic Respiratory Failure -Patient is intubated and off sedation -s/p Code Freeze -Repeat CT head ordered -Management per ICU Dyspnea/History of Chronic Diastolic CHF -BNP on admission was 4820 -CXR on admission showed moderate cardiomegaly, right small pleural effusion ( see full report) -Echocardiogram (10/13) shows LVEF of 66%. Mildly dilated LA. Mild concentric LVH. Abnormal septal motion from RV pressure overload. Sclerotic probably bicuspid aortic valve. Trace AI. Mild MR, TR. Severe pulmonary hypertension. No pericardial effusion seen. -Troponin 0.03 -> 0.39 -> 1.27 -> 0.489 -Cardiac Cath 01/2017 showed normal coronaries -Given previous recent cath, troponin elevation likely secondary to CPR -Continue Medical management (ASA, Crestor) -No acute cardiac intervention at this time COPD exacerbation -Intubated and off sedation -Duonebs Q6H ANABELLA Aspiration Pneumonia -On Vancomycin, Doxycycline and Zosyn -ID on consult, help appreciated Hypertension -Hydralazine 10mg Q6H IVP prn -Maintain SBP between 140 mmHg and 160 mmHg -Patient with low BPs, on Levophed, phenylepherine and Vasopressin drips Renal Failure -Patient on hemodialysis -Nephro on consult Diabetes Mellitus -HgA1c 9.1 -Insulin sliding scale and accuchecks Hyperkalemia -Continue to monitor Further recommendations from Dr Gerber Gastelum DO PGY-2 <Hugo Mayes - Last Filed: 10/18/17 22:41> Objective - Vital Signs/Intake and Output Vital Signs (last 24 hours): Temp Pulse Resp BP Pulse Ox 99.5 F 106 H 30 H 127/74 100 10/18/17 20:00 10/18/17 21:32 10/18/17 21:03 10/18/17 21:32 10/18/17 21:32 Intake and Output: 10/18/17 10/19/17 18:59 06:59 Intake Total 3298.5 384.4 Output Total 8 Balance 3290.5 384.4 - Medications Medications: Current Medications Albuterol/Ipratropium (Duoneb 3 Mg/0.5 Mg (3 Ml) Ud) 3 ml INH RQ6 ANABELLA Last Admin: 10/18/17 19:01 Dose: 3 ml Artificial Tears (Lacri-Lube) 0 gm OU Q4 ANABELLA Last Admin: 10/18/17 20:40 Dose: 3.5 gm Calcium Acetate (Phoslo) 667 mg GT TID ANABELLA Last Admin: 10/18/17 17:22 Dose: 667 mg Dextrose (Dextrose 50% Inj) 0 ml IV STAT PRN; Protocol PRN Reason: Hypoglycemia Protocol Dextrose (Glutose 15) 0 gm PO ONCE PRN; Protocol PRN Reason: Hypoglycemia Protocol Dextrose (Dextrose 50% Inj) 0 ml IV STAT PRN; Protocol PRN Reason: Hypoglycemia Protocol Dextrose (Glutose 15) 0 gm PO ONCE PRN; Protocol PRN Reason: Hypoglycemia Protocol Glucagon (Glucagen Diagnostic Kit) 0 mg IM STAT PRN; Protocol PRN Reason: Hypoglycemia Protocol Glucagon (Glucagen Diagnostic Kit) 0 mg IM STAT PRN; Protocol PRN Reason: Hypoglycemia Protocol Doxycycline Hyclate 100 mg/ (Sodium Chloride) 100 mls @ 100 mls/hr IVPB Q12H ANABELLA PRN Reason: Protocol Last Admin: 10/18/17 17:24 Dose: 100 mls/hr Dextrose (Dextrose 5% In Water 1000 Ml) 1,000 mls @ 0 mls/hr IV .Q0M PRN; Protocol; Per Protocol PRN Reason: Hypoglycemia Protocol Vasopressin 40 units/ Sodium (Chloride) 40 mls @ 0.6 mls/hr IV .Q24H ANABELLA; 0.01 UNITS/MIN PRN Reason: Protocol Last Titration: 10/18/17 16:00 Dose: 0 units/min, 0 mls/hr Norepinephrine Bitartrate 16 (mg/ Sodium Chloride) 500 mls @ 7.5 mls/hr IV .Q24H PRN; Protocol; 4 MCG/MIN PRN Reason: TITRATE PER MD ORDER Last Titration: 10/18/17 17:00 Dose: 14 mcg/min, 26.25 mls/hr Phenylephrine HCl 60 mg/ (Sodium Chloride) 500 mls @ 10 mls/hr IV .Q24H PRN; Protocol; 20 MCG/MIN PRN Reason: TITRATE PER MD ORDER Last Titration: 10/18/17 15:00 Dose: 0 mcg/min, 0 mls/hr Meropenem 500 mg/ Sodium (Chloride) 100 mls @ 100 mls/hr IVPB Q8H ANABELLA PRN Reason: Protocol Last Admin: 10/18/17 20:36 Dose: 100 mls/hr Dexmedetomidine HCl 200 mcg/ (Sodium Chloride) 50 mls @ 7.36 mls/hr IV TITR PRN ; Protocol; 0.2 MCG/KG/HR PRN Reason: Sedation Last Admin: 10/18/17 17:46 Dose: 0.2 mcg/kg/hr, 7.36 mls/hr Cisatracurium Besylate 100 mg/ (Dextrose) 250 mls @ 66.28 mls/hr IV .Q3H47M ANABELLA ; 3 MCG/KG/MIN PRN Reason: Protocol Last Admin: 10/18/17 20:34 Dose: 66.28 mls/hr Insulin Human Regular (Novolin R) 0 unit SC Q6H ANABELLA PRN Reason: Protocol Last Admin: 10/18/17 17:47 Dose: 3 units Lorazepam (Ativan) 1 mg IVP Q4H PRN PRN Reason: Agitation Last Admin: 10/17/17 22:15 Dose: 1 mg Pantoprazole Sodium (Protonix Inj) 40 mg IVP Q12H ANABELLA Last Admin: 10/18/17 13:43 Dose: 40 mg Rosuvastatin Calcium (Crestor) 10 mg PO HS ANABELLA Sodium Bicarbonate (Sodium Bicarbonate Tab) 650 mg PO TID ANABELLA Last Admin: 10/18/17 17:22 Dose: 650 mg - Labs Labs: 10/18/17 06:21 10/18/17 06:21 PT 16.6 SECONDS (9.7-12.2) H 10/17/17 03:04 INR 1.5 10/17/17 03:04 APTT 67 SECONDS (21-34) H D 10/17/17 03:04 Assessment and Plan - Assessment and Plan (Free Text) Assessment: Patient seen and evaluated personally by me Plan of care d/w the resident and as documented Prognosis: Poor
--- NOTE | 2017-10-18 10:10 | CP.CCUPN ---
<Gwyn Leslie - Last Filed: 10/18/17 10:31> CCU Subjective - Physician Review Subjective (Free Text): Gwyn Leslie DO PGY-1, ICU progress note for Dr. Cruz Pt seen and examined at bedside. Pt remains intubated, but is off of sedations since 8 pm last night. He only opens his eyes to verbal and tactile stimulation. ROS was unobtainable due to AMS. Pt has only produced 5 mL of clear yellow urine in the past 12 hours. There were no bowel movements overnight. Pt was afebrile overnight. Currently, pt is currently receiving Vasopressin 0.04 units/min, Levophed 16 mcg/min, phenylephrine 150 mcg/min. Pt is on PRVC: 500/30RR/100%/5 A 12-point ROS was unobtainable due to AMS and intubation. CCU Objective - Vital Signs / Intake & Output Vital Signs (Last 4 hours): Vital Signs BP 10/18/17 06:17 84/50 L Intake and Output (Last 8hrs): Intake & Output 10/17/17 10/18/17 10/18/17 22:59 06:59 14:59 Intake Total 2062.7 1519.2 150 Output Total 15 Balance 2047.7 1519.2 150 Intake: IV 669 540 150 Intake, IV Amount 1393.7 979.2 Left 104.8 4.8 Left Distal Port Femoral 344.4 225.0 Left Medial Port Femoral 412.5 89.4 Left Proximal Port 72.0 Femoral Left TLC medial port 410 660 Right Upper arm 50 Output: Urine 15 Urethral (Campbell) 15 Urine/Stool Mix 0 Emesis 0 Other: # Bowel Movements 0 - Physical Exam Physical Exam Limitations: Positive for: Altered Mental Status Head: Positive for: Atraumatic, Normocephalic Pupils: Positive for: Sluggish Conjunctiva: Positive for: Normal Mouth: Positive for: Moist Mucous Membranes, Other ((+) ETT, OGT) Respiratory/Chest: Positive for: Wheezes (scattered), Rhonchi (diffuse), Other ( PRVC 550/30/100/5). Negative for: Good Air Exchange Cardiovascular: Positive for: Regular Rate and Rhythm, Normal S1, S2 Abdomen: Positive for: Distention, Normal Bowel Sounds (in all 4 quadrants), Other (morbid obesity). Negative for: Peritoneal Signs (soft) Upper Extremity: Positive for: Normal Inspection, Edema (nonpitting swelling bilaterally), NORMAL PULSES (3+ bilateral radial pulses), Other ((+) left radial a-line; c/d/i) Lower Extremity: Positive for: Normal Inspection, Edema (2+ pitting edema bilateral lower extremities), NORMAL PULSES ((+) DP pulses obtained by dopplar bilaterally), Other ((+) left femoral TLC; c/d/i) Neurological: Negative for: GCS=15 (GCS 3t) Skin: Positive for: Warm (pt is actively being rewarmed from hypothermia protocol), Dry, Normal Color Psychiatric: Positive for: Other (GCS 5t; opens eyes to verbal stimuli) - Medications Active Medications: Active Medications Generic Name Dose Route Start Last Admin Trade Name Freq PRN Reason Stop Dose Admin Albuterol/Ipratropium 3 ml 10/15/17 14:00 10/18/17 07:39 Duoneb 3 Mg/0.5 Mg (3 Ml) Ud INH 3 ml RQ6 ANABELLA Administration Artificial Tears 0 gm 10/17/17 08:39 Lacri-Lube OU Q4 ANABELLA Dextrose 0 ml 10/13/17 10:07 Dextrose 50% Inj IV STAT PRN Hypoglycemia Protocol Protocol Dextrose 0 gm 10/13/17 10:07 Glutose 15 PO ONCE PRN Hypoglycemia Protocol Protocol Dextrose 0 ml 10/15/17 23:36 Dextrose 50% Inj IV STAT PRN Hypoglycemia Protocol Protocol Dextrose 0 gm 10/15/17 23:36 Glutose 15 PO ONCE PRN Hypoglycemia Protocol Protocol Glucagon 0 mg 10/13/17 10:07 Glucagen Diagnostic Kit IM STAT PRN Hypoglycemia Protocol Protocol Glucagon 0 mg 10/15/17 23:36 Glucagen Diagnostic Kit IM STAT PRN Hypoglycemia Protocol Protocol Dextrose 1,000 mls @ 0 mls/hr 10/13/17 10:07 Dextrose 5% In Water 1000 Ml IV .Q0M PRN Hypoglycemia Protocol Protocol Per Protocol Doxycycline Hyclate 100 mg/ 100 mls @ 100 mls/hr 10/15/17 18:00 10/18/17 05: 01 Sodium Chloride IVPB 100 mls/hr Q12H ANABELLA Administration Protocol Piperacillin Sod/Tazobactam Sod 2.25 gm in 50 mls @ 100 mls/hr 10/15/17 17:30 10/18/17 04:30 Zosyn 2.25 Gm Iv Premix IVPB 100 mls/hr Q6H ANABELLA Administration Protocol Dextrose 1,000 mls @ 0 mls/hr 10/15/17 23:36 Dextrose 5% In Water 1000 Ml IV .Q0M PRN Hypoglycemia Protocol Protocol Per Protocol Vasopressin 40 units/ Sodium 40 mls @ 0.6 mls/hr 10/17/17 19:00 10/18/17 02: 28 Chloride IV 0.04 units/min .Q24H ANABELLA 2.4 mls/hr Protocol Administration 0.01 UNITS/MIN Norepinephrine Bitartrate 16 500 mls @ 7.5 mls/hr 10/17/17 23:50 10/18/17 09: 00 mg/ Sodium Chloride IV 16 mcg/min .Q24H PRN 30 mls/hr TITRATE PER MD ORDER Titration Protocol 4 MCG/MIN Phenylephrine HCl 60 mg/ 500 mls @ 10 mls/hr 10/17/17 23:52 10/18/17 06:17 Sodium Chloride IV 150 mcg/min .Q24H PRN 75 mls/hr TITRATE PER MD ORDER Administration Protocol 20 MCG/MIN Vancomycin/Sodium Chloride 1 gm in 200 mls @ 133 mls/hr 10/18/17 09:16 Vancomycin 1 Gm/Ns 200 Ml IVPB 10/18/17 10:46 ONCE ONE Protocol Insulin Human Regular 0 unit 10/15/17 18:00 10/18/17 06:14 Novolin R SC 2 units Q6H ANABELLA Administration Protocol Lorazepam 1 mg 10/17/17 22:02 10/17/17 22:15 Ativan IVP 1 mg Q4H PRN Administration Agitation Pantoprazole Sodium 40 mg 10/16/17 01:00 10/18/17 01:16 Protonix Inj IVP 40 mg Q12H ANABELLA Administration Rosuvastatin Calcium 20 mg 10/13/17 22:00 10/17/17 21:18 Crestor PO 20 mg HS ANABELLA Administration Sodium Bicarbonate 650 mg 10/15/17 10:00 10/17/17 18:05 Sodium Bicarbonate Tab PO 650 mg TID ANABELLA Administration - Patient Studies Lab Studies: Microbiology Studies 10/15/17 16:40 Blood Culture - Preliminary Blood-Venous NO GROWTH AFTER 48 HOURS 10/15/17 16:00 Blood Culture - Preliminary Blood-Venous NO GROWTH AFTER 48 HOURS 10/15/17 17:35 Gram Stain - Final Sputum Sputum Culture - Final NORMAL ORAL KWADWO Lab Studies 10/18/17 10/18/17 10/18/17 Range/Units 06:21 06:21 05:56 WBC 20.3 H (4.8-10.8) K/uL RBC 3.77 L (4.40-5.90) Mil/uL Hgb 10.4 L (12.0-18.0) g/dL Hct 33.8 L (35.0-51.0) % MCV 89.7 (80.0-94.0) fL MCH 27.6 (27.0-31.0) pg MCHC 30.8 L (33.0-37.0) g/dL RDW 18.1 H (11.5-14.5) % Plt Count 61 L (130-400) K/uL MPV 11.8 H (7.2-11.7) fL Neut % (Auto) 84.5 H (50.0-75.0) % Lymph % (Auto) 4.3 L (20.0-40.0) % Morgan % (Auto) 10.4 H (0.0-10.0) % Eos % (Auto) 0.7 (0.0-4.0) % Baso % (Auto) 0.1 (0.0-2.0) % Neut # (Auto) 17.1 H (1.8-7.0) K/uL Lymph # (Auto) 0.9 L (1.0-4.3) K/uL Morgan # (Auto) 2.1 H (0.0-0.8) K/uL Eos # (Auto) 0.2 (0.0-0.7) K/uL Baso # (Auto) 0.0 (0.0-0.2) K/uL Neutrophils % (Manual) 81 H (50-75) % Band Neutrophils % 3 H (0-2) % Lymphocytes % (Manual) 6 L (20-40) % Monocytes % (Manual) 9 (0-10) % Eosinophils % (Manual) 1 (0-4) % Basophils % (Manual) (0-2) % Nucleated RBC % 1 H (0-0) % Differential Comment Platelet Estimate Decreased L (NORMAL) Large Platelets Present Hypochromasia (manual) Slight Poikilocytosis (manual Slight Anisocytosis (manual) Slight Microcytosis (manual) Target Cells Slight Villanova Cells Slight Fibrinogen (200-400) mg/dL Fibrin Degrad Products (NEGATIVE) Fibrin Degrad Prod, Qt (<10) ug/mL Puncture Site pCO2 (35-45) mm/Hg pO2 (80-100) mm/Hg HCO3 (21-28) mmol/L ABG pH (7.35-7.45) ABG Total CO2 (22-28) mmol/L ABG O2 Saturation (95-98) % ABG Base Excess (-2.0-3.0) mmol/L ABG Hemoglobin (11.7-17.4) g/dL ABG Carboxyhemoglobin (0.5-1.5) % POC ABG HHb (Measured) (0.0-5.0) % ABG Methemoglobin (0.0-3.0) % Philippe Test A-a O2 Difference mm/Hg Respiratory Index Hgb O2 Saturation (95.0-98.0) % Vent Mode Mechanical Rate FiO2 % Tidal Volume PEEP Crit Value Called To Crit Value Called By Crit Value Read Back Blood Gas Notified Time Sodium 140 (132-148) mmol/L Potassium 5.0 (3.6-5.2) mmol/L Chloride 97 L (98-107) mmol/L Carbon Dioxide 29 (22-30) mmol/L Anion Gap 18 (10-20) BUN 38 H (9-20) mg/dL Creatinine 3.7 H (0.8-1.5) mg/dL Est GFR ( Amer) 21 Est GFR (Non-Af Amer) 18 POC Glucose (mg/dL) 175 H (65-110) mg/dL Random Glucose 195 H (75-110) mg/dL Calcium 8.2 L (8.6-10.4) mg/dl Phosphorus 10.3 H (2.5-4.5) mg/dL Magnesium 1.8 (1.6-2.3) mg/dL Total Bilirubin 2.2 H (0.2-1.3) mg/dL AST 67 H D (17-59) U/L ALT 56 (21-72) U/L Alkaline Phosphatase 129 H (38-126) U/L Total Creatine Kinase (55-170) U/L CK-MB (Mass) (0.0-3.38) ng/mL Troponin I (0.00-0.120) ng/mL Total Protein 7.1 (6.3-8.3) g/dL Albumin 3.6 (3.5-5.0) g/dL Globulin 3.4 (2.2-3.9) gm/dL Albumin/Globulin Ratio 1.1 (1.0-2.1) Procalcitonin (0.19-0.49) NG/ML 10/18/17 10/17/17 10/17/17 Range/Units 05:21 23:38 21:55 WBC (4.8-10.8) K/uL RBC (4.40-5.90) Mil/uL Hgb (12.0-18.0) g/dL Hct (35.0-51.0) % MCV (80.0-94.0) fL MCH (27.0-31.0) pg MCHC (33.0-37.0) g/dL RDW (11.5-14.5) % Plt Count (130-400) K/uL MPV (7.2-11.7) fL Neut % (Auto) (50.0-75.0) % Lymph % (Auto) (20.0-40.0) % Morgan % (Auto) (0.0-10.0) % Eos % (Auto) (0.0-4.0) % Baso % (Auto) (0.0-2.0) % Neut # (Auto) (1.8-7.0) K/uL Lymph # (Auto) (1.0-4.3) K/uL Morgan # (Auto) (0.0-0.8) K/uL Eos # (Auto) (0.0-0.7) K/uL Baso # (Auto) (0.0-0.2) K/uL Neutrophils % (Manual) (50-75) % Band Neutrophils % (0-2) % Lymphocytes % (Manual) (20-40) % Monocytes % (Manual) (0-10) % Eosinophils % (Manual) (0-4) % Basophils % (Manual) (0-2) % Nucleated RBC % (0-0) % Differential Comment Platelet Estimate (NORMAL) Large Platelets Hypochromasia (manual) Poikilocytosis (manual Anisocytosis (manual) Microcytosis (manual) Target Cells Villanova Cells Fibrinogen (200-400) mg/dL Fibrin Degrad Products (NEGATIVE) Fibrin Degrad Prod, Qt (<10) ug/mL Puncture Site Gertrude Loredo pCO2 84 H* 80 H* (35-45) mm/Hg pO2 100 64 L (80-100) mm/Hg HCO3 21.0 22.3 (21-28) mmol/L ABG pH 7.10 L* 7.14 L* (7.35-7.45) ABG Total CO2 28.7 H 29.7 H (22-28) mmol/L ABG O2 Saturation 97.9 92.5 L (95-98) % ABG Base Excess -5.0 L -3.2 L (-2.0-3.0) mmol/L ABG Hemoglobin 11.7 11.2 L (11.7-17.4) g/dL ABG Carboxyhemoglobin 2.3 H 2.7 H (0.5-1.5) % POC ABG HHb (Measured) 2.0 7.2 H (0.0-5.0) % ABG Methemoglobin 1.2 0.7 (0.0-3.0) % Philippe Test Na Na A-a O2 Difference 508.0 549.0 mm/Hg Respiratory Index 5.1 8.6 Hgb O2 Saturation 94.5 L 89.4 L (95.0-98.0) % Vent Mode Prvc Prvc Mechanical Rate 26 24 FiO2 100.0 100.0 % Tidal Volume 500 500 PEEP 5 5 Crit Value Called To Esteban humphreys md Crit Value Called By Rissa metal machine operator Lendl Crit Value Read Back Y Y Blood Gas Notified Time 533 2158 Sodium (132-148) mmol/L Potassium (3.6-5.2) mmol/L Chloride (98-107) mmol/L Carbon Dioxide (22-30) mmol/L Anion Gap (10-20) BUN (9-20) mg/dL Creatinine (0.8-1.5) mg/dL Est GFR ( Amer) Est GFR (Non-Af Amer) POC Glucose (mg/dL) 149 H (65-110) mg/dL Random Glucose (75-110) mg/dL Calcium (8.6-10.4) mg/dl Phosphorus (2.5-4.5) mg/dL Magnesium (1.6-2.3) mg/dL Total Bilirubin (0.2-1.3) mg/dL AST (17-59) U/L ALT (21-72) U/L Alkaline Phosphatase (38-126) U/L Total Creatine Kinase (55-170) U/L CK-MB (Mass) (0.0-3.38) ng/mL Troponin I (0.00-0.120) ng/mL Total Protein (6.3-8.3) g/dL Albumin (3.5-5.0) g/dL Globulin (2.2-3.9) gm/dL Albumin/Globulin Ratio (1.0-2.1) Procalcitonin (0.19-0.49) NG/ML 10/17/17 10/17/17 10/17/17 Range/Units 20:14 20:07 19:14 WBC (4.8-10.8) K/uL RBC (4.40-5.90) Mil/uL Hgb (12.0-18.0) g/dL Hct (35.0-51.0) % MCV (80.0-94.0) fL MCH (27.0-31.0) pg MCHC (33.0-37.0) g/dL RDW (11.5-14.5) % Plt Count (130-400) K/uL MPV (7.2-11.7) fL Neut % (Auto) (50.0-75.0) % Lymph % (Auto) (20.0-40.0) % Morgan % (Auto) (0.0-10.0) % Eos % (Auto) (0.0-4.0) % Baso % (Auto) (0.0-2.0) % Neut # (Auto) (1.8-7.0) K/uL Lymph # (Auto) (1.0-4.3) K/uL Morgan # (Auto) (0.0-0.8) K/uL Eos # (Auto) (0.0-0.7) K/uL Baso # (Auto) (0.0-0.2) K/uL Neutrophils % (Manual) (50-75) % Band Neutrophils % (0-2) % Lymphocytes % (Manual) (20-40) % Monocytes % (Manual) (0-10) % Eosinophils % (Manual) (0-4) % Basophils % (Manual) (0-2) % Nucleated RBC % (0-0) % Differential Comment Platelet Estimate (NORMAL) Large Platelets Hypochromasia (manual) Poikilocytosis (manual Anisocytosis (manual) Microcytosis (manual) Target Cells Josey Cells Fibrinogen (200-400) mg/dL Fibrin Degrad Products (NEGATIVE) Fibrin Degrad Prod, Qt (<10) ug/mL Puncture Site pCO2 (35-45) mm/Hg pO2 (80-100) mm/Hg HCO3 (21-28) mmol/L ABG pH (7.35-7.45) ABG Total CO2 (22-28) mmol/L ABG O2 Saturation (95-98) % ABG Base Excess (-2.0-3.0) mmol/L ABG Hemoglobin (11.7-17.4) g/dL ABG Carboxyhemoglobin (0.5-1.5) % POC ABG HHb (Measured) (0.0-5.0) % ABG Methemoglobin (0.0-3.0) % Philippe Test A-a O2 Difference mm/Hg Respiratory Index Hgb O2 Saturation (95.0-98.0) % Vent Mode Mechanical Rate FiO2 % Tidal Volume PEEP Crit Value Called To Crit Value Called By Crit Value Read Back Blood Gas Notified Time Sodium (132-148) mmol/L Potassium (3.6-5.2) mmol/L Chloride (98-107) mmol/L Carbon Dioxide (22-30) mmol/L Anion Gap (10-20) BUN (9-20) mg/dL Creatinine (0.8-1.5) mg/dL Est GFR ( Amer) Est GFR (Non-Af Amer) POC Glucose (mg/dL) 135 H 163 H (65-110) mg/dL Random Glucose (75-110) mg/dL Calcium (8.6-10.4) mg/dl Phosphorus (2.5-4.5) mg/dL Magnesium (1.6-2.3) mg/dL Total Bilirubin (0.2-1.3) mg/dL AST (17-59) U/L ALT (21-72) U/L Alkaline Phosphatase (38-126) U/L Total Creatine Kinase 113 (55-170) U/L CK-MB (Mass) 9.13 H (0.0-3.38) ng/mL Troponin I 0.4890 H* (0.00-0.120) ng/mL Total Protein (6.3-8.3) g/dL Albumin (3.5-5.0) g/dL Globulin (2.2-3.9) gm/dL Albumin/Globulin Ratio (1.0-2.1) Procalcitonin (0.19-0.49) NG/ML 10/17/17 10/17/17 10/17/17 Range/Units 19:05 19:05 17:57 WBC 20.5 H (4.8-10.8) K/uL RBC 4.05 L (4.40-5.90) Mil/uL Hgb 11.3 L (12.0-18.0) g/dL Hct 36.0 (35.0-51.0) % MCV 88.9 D (80.0-94.0) fL MCH 28.0 (27.0-31.0) pg MCHC 31.5 L (33.0-37.0) g/dL RDW 18.2 H (11.5-14.5) % Plt Count 61 L (130-400) K/uL MPV 11.9 H (7.2-11.7) fL Neut % (Auto) (50.0-75.0) % Lymph % (Auto) (20.0-40.0) % Morgan % (Auto) (0.0-10.0) % Eos % (Auto) (0.0-4.0) % Baso % (Auto) (0.0-2.0) % Neut # (Auto) (1.8-7.0) K/uL Lymph # (Auto) (1.0-4.3) K/uL Morgan # (Auto) (0.0-0.8) K/uL Eos # (Auto) (0.0-0.7) K/uL Baso # (Auto) (0.0-0.2) K/uL Neutrophils % (Manual) (50-75) % Band Neutrophils % (0-2) % Lymphocytes % (Manual) (20-40) % Monocytes % (Manual) (0-10) % Eosinophils % (Manual) (0-4) % Basophils % (Manual) (0-2) % Nucleated RBC % (0-0) % Differential Comment Platelet Estimate (NORMAL) Large Platelets Hypochromasia (manual) Poikilocytosis (manual Anisocytosis (manual) Microcytosis (manual) Target Cells Villanova Cells Fibrinogen (200-400) mg/dL Fibrin Degrad Products (NEGATIVE) Fibrin Degrad Prod, Qt (<10) ug/mL Puncture Site pCO2 (35-45) mm/Hg pO2 (80-100) mm/Hg HCO3 (21-28) mmol/L ABG pH (7.35-7.45) ABG Total CO2 (22-28) mmol/L ABG O2 Saturation (95-98) % ABG Base Excess (-2.0-3.0) mmol/L ABG Hemoglobin (11.7-17.4) g/dL ABG Carboxyhemoglobin (0.5-1.5) % POC ABG HHb (Measured) (0.0-5.0) % ABG Methemoglobin (0.0-3.0) % Philippe Test A-a O2 Difference mm/Hg Respiratory Index Hgb O2 Saturation (95.0-98.0) % Vent Mode Mechanical Rate FiO2 % Tidal Volume PEEP Crit Value Called To Crit Value Called By Crit Value Read Back Blood Gas Notified Time Sodium 138 (132-148) mmol/L Potassium 4.7 (3.6-5.2) mmol/L Chloride 96 L (98-107) mmol/L Carbon Dioxide 30 (22-30) mmol/L Anion Gap 17 (10-20) BUN 29 H (9-20) mg/dL Creatinine 2.8 H (0.8-1.5) mg/dL Est GFR ( Amer) 29 Est GFR (Non-Af Amer) 24 POC Glucose (mg/dL) 164 H (65-110) mg/dL Random Glucose 161 H (75-110) mg/dL Calcium 8.6 (8.6-10.4) mg/dl Phosphorus 8.0 H (2.5-4.5) mg/dL Magnesium 1.9 (1.6-2.3) mg/dL Total Bilirubin (0.2-1.3) mg/dL AST (17-59) U/L ALT (21-72) U/L Alkaline Phosphatase (38-126) U/L Total Creatine Kinase (55-170) U/L CK-MB (Mass) (0.0-3.38) ng/mL Troponin I (0.00-0.120) ng/mL Total Protein (6.3-8.3) g/dL Albumin (3.5-5.0) g/dL Globulin (2.2-3.9) gm/dL Albumin/Globulin Ratio (1.0-2.1) Procalcitonin (0.19-0.49) NG/ML 10/17/17 10/17/17 10/17/17 Range/Units 17:02 16:13 15:40 WBC (4.8-10.8) K/uL RBC (4.40-5.90) Mil/uL Hgb (12.0-18.0) g/dL Hct (35.0-51.0) % MCV (80.0-94.0) fL MCH (27.0-31.0) pg MCHC (33.0-37.0) g/dL RDW (11.5-14.5) % Plt Count (130-400) K/uL MPV (7.2-11.7) fL Neut % (Auto) (50.0-75.0) % Lymph % (Auto) (20.0-40.0) % Morgan % (Auto) (0.0-10.0) % Eos % (Auto) (0.0-4.0) % Baso % (Auto) (0.0-2.0) % Neut # (Auto) (1.8-7.0) K/uL Lymph # (Auto) (1.0-4.3) K/uL Morgan # (Auto) (0.0-0.8) K/uL Eos # (Auto) (0.0-0.7) K/uL Baso # (Auto) (0.0-0.2) K/uL Neutrophils % (Manual) (50-75) % Band Neutrophils % (0-2) % Lymphocytes % (Manual) (20-40) % Monocytes % (Manual) (0-10) % Eosinophils % (Manual) (0-4) % Basophils % (Manual) (0-2) % Nucleated RBC % (0-0) % Differential Comment Platelet Estimate (NORMAL) Large Platelets Hypochromasia (manual) Poikilocytosis (manual Anisocytosis (manual) Microcytosis (manual) Target Cells Josey Cells Fibrinogen (200-400) mg/dL Fibrin Degrad Products (NEGATIVE) Fibrin Degrad Prod, Qt (<10) ug/mL Puncture Site pCO2 (35-45) mm/Hg pO2 (80-100) mm/Hg HCO3 (21-28) mmol/L ABG pH (7.35-7.45) ABG Total CO2 (22-28) mmol/L ABG O2 Saturation (95-98) % ABG Base Excess (-2.0-3.0) mmol/L ABG Hemoglobin (11.7-17.4) g/dL ABG Carboxyhemoglobin (0.5-1.5) % POC ABG HHb (Measured) (0.0-5.0) % ABG Methemoglobin (0.0-3.0) % Philippe Test A-a O2 Difference mm/Hg Respiratory Index Hgb O2 Saturation (95.0-98.0) % Vent Mode Mechanical Rate FiO2 % Tidal Volume PEEP Crit Value Called To Crit Value Called By Crit Value Read Back Blood Gas Notified Time Sodium (132-148) mmol/L Potassium (3.6-5.2) mmol/L Chloride (98-107) mmol/L Carbon Dioxide (22-30) mmol/L Anion Gap (10-20) BUN (9-20) mg/dL Creatinine (0.8-1.5) mg/dL Est GFR ( Amer) Est GFR (Non-Af Amer) POC Glucose (mg/dL) 141 H 140 H 151 H (65-110) mg/dL Random Glucose (75-110) mg/dL Calcium (8.6-10.4) mg/dl Phosphorus (2.5-4.5) mg/dL Magnesium (1.6-2.3) mg/dL Total Bilirubin (0.2-1.3) mg/dL AST (17-59) U/L ALT (21-72) U/L Alkaline Phosphatase (38-126) U/L Total Creatine Kinase (55-170) U/L CK-MB (Mass) (0.0-3.38) ng/mL Troponin I (0.00-0.120) ng/mL Total Protein (6.3-8.3) g/dL Albumin (3.5-5.0) g/dL Globulin (2.2-3.9) gm/dL Albumin/Globulin Ratio (1.0-2.1) Procalcitonin (0.19-0.49) NG/ML 10/17/17 10/17/17 10/17/17 Range/Units 14:13 12:02 11:47 WBC (4.8-10.8) K/uL RBC (4.40-5.90) Mil/uL Hgb (12.0-18.0) g/dL Hct (35.0-51.0) % MCV (80.0-94.0) fL MCH (27.0-31.0) pg MCHC (33.0-37.0) g/dL RDW (11.5-14.5) % Plt Count (130-400) K/uL MPV (7.2-11.7) fL Neut % (Auto) (50.0-75.0) % Lymph % (Auto) (20.0-40.0) % Morgan % (Auto) (0.0-10.0) % Eos % (Auto) (0.0-4.0) % Baso % (Auto) (0.0-2.0) % Neut # (Auto) (1.8-7.0) K/uL Lymph # (Auto) (1.0-4.3) K/uL Morgan # (Auto) (0.0-0.8) K/uL Eos # (Auto) (0.0-0.7) K/uL Baso # (Auto) (0.0-0.2) K/uL Neutrophils % (Manual) (50-75) % Band Neutrophils % (0-2) % Lymphocytes % (Manual) (20-40) % Monocytes % (Manual) (0-10) % Eosinophils % (Manual) (0-4) % Basophils % (Manual) (0-2) % Nucleated RBC % (0-0) % Differential Comment Platelet Estimate (NORMAL) Large Platelets Hypochromasia (manual) Poikilocytosis (manual Anisocytosis (manual) Microcytosis (manual) Target Cells Villanova Cells Fibrinogen (200-400) mg/dL Fibrin Degrad Products (NEGATIVE) Fibrin Degrad Prod, Qt (<10) ug/mL Puncture Site pCO2 (35-45) mm/Hg pO2 (80-100) mm/Hg HCO3 (21-28) mmol/L ABG pH (7.35-7.45) ABG Total CO2 (22-28) mmol/L ABG O2 Saturation (95-98) % ABG Base Excess (-2.0-3.0) mmol/L ABG Hemoglobin (11.7-17.4) g/dL ABG Carboxyhemoglobin (0.5-1.5) % POC ABG HHb (Measured) (0.0-5.0) % ABG Methemoglobin (0.0-3.0) % Philippe Test A-a O2 Difference mm/Hg Respiratory Index Hgb O2 Saturation (95.0-98.0) % Vent Mode Mechanical Rate FiO2 % Tidal Volume PEEP Crit Value Called To Crit Value Called By Crit Value Read Back Blood Gas Notified Time Sodium 139 (132-148) mmol/L Potassium 3.7 (3.6-5.2) mmol/L Chloride 96 L (98-107) mmol/L Carbon Dioxide 32 H (22-30) mmol/L Anion Gap 15 (10-20) BUN 34 H (9-20) mg/dL Creatinine 2.4 H (0.8-1.5) mg/dL Est GFR ( Amer) 35 Est GFR (Non-Af Amer) 29 POC Glucose (mg/dL) 138 H 201 H (65-110) mg/dL Random Glucose 231 H (75-110) mg/dL Calcium 8.2 L (8.6-10.4) mg/dl Phosphorus 5.7 H (2.5-4.5) mg/dL Magnesium 1.8 (1.6-2.3) mg/dL Total Bilirubin 2.1 H (0.2-1.3) mg/dL AST 25 (17-59) U/L ALT 26 (21-72) U/L Alkaline Phosphatase 138 H (38-126) U/L Total Creatine Kinase (55-170) U/L CK-MB (Mass) (0.0-3.38) ng/mL Troponin I (0.00-0.120) ng/mL Total Protein 6.8 (6.3-8.3) g/dL Albumin 3.4 L (3.5-5.0) g/dL Globulin 3.4 (2.2-3.9) gm/dL Albumin/Globulin Ratio 1.0 (1.0-2.1) Procalcitonin (0.19-0.49) NG/ML 10/17/17 10/17/17 10/17/17 Range/Units 11:47 11:47 11:47 WBC 17.2 H (4.8-10.8) K/uL RBC 4.02 L (4.40-5.90) Mil/uL Hgb 11.2 L (12.0-18.0) g/dL Hct 35.0 (35.0-51.0) % MCV 86.9 (80.0-94.0) fL MCH 27.8 (27.0-31.0) pg MCHC 32.0 L (33.0-37.0) g/dL RDW 18.0 H (11.5-14.5) % Plt Count 47 L (130-400) K/uL MPV 11.0 (7.2-11.7) fL Neut % (Auto) 93.7 H (50.0-75.0) % Lymph % (Auto) 1.7 L (20.0-40.0) % Morgan % (Auto) 2.8 (0.0-10.0) % Eos % (Auto) 1.7 (0.0-4.0) % Baso % (Auto) 0.1 (0.0-2.0) % Neut # (Auto) 16.1 H (1.8-7.0) K/uL Lymph # (Auto) 0.3 L (1.0-4.3) K/uL Morgan # (Auto) 0.5 (0.0-0.8) K/uL Eos # (Auto) 0.3 (0.0-0.7) K/uL Baso # (Auto) 0.0 (0.0-0.2) K/uL Neutrophils % (Manual) 90 H (50-75) % Band Neutrophils % (0-2) % Lymphocytes % (Manual) 3 L (20-40) % Monocytes % (Manual) 1 (0-10) % Eosinophils % (Manual) 5 H (0-4) % Basophils % (Manual) 1 (0-2) % Nucleated RBC % 2 H (0-0) % Differential Comment Platelet Estimate Decreased L (NORMAL) Large Platelets Present Hypochromasia (manual) Slight Poikilocytosis (manual Slight Anisocytosis (manual) Slight Microcytosis (manual) Slight Target Cells Slight [place] Cells Slight Fibrinogen 684 H (200-400) mg/dL Fibrin Degrad Products Positive H (NEGATIVE) Fibrin Degrad Prod, Qt >40 H (<10) ug/mL Puncture Site pCO2 (35-45) mm/Hg pO2 (80-100) mm/Hg HCO3 (21-28) mmol/L ABG pH (7.35-7.45) ABG Total CO2 (22-28) mmol/L ABG O2 Saturation (95-98) % ABG Base Excess (-2.0-3.0) mmol/L ABG Hemoglobin (11.7-17.4) g/dL ABG Carboxyhemoglobin (0.5-1.5) % POC ABG HHb (Measured) (0.0-5.0) % ABG Methemoglobin (0.0-3.0) % Philippe Test A-a O2 Difference mm/Hg Respiratory Index Hgb O2 Saturation (95.0-98.0) % Vent Mode Mechanical Rate FiO2 % Tidal Volume PEEP Crit Value Called To Crit Value Called By Crit Value Read Back Blood Gas Notified Time Sodium (132-148) mmol/L Potassium (3.6-5.2) mmol/L Chloride (98-107) mmol/L Carbon Dioxide (22-30) mmol/L Anion Gap (10-20) BUN (9-20) mg/dL Creatinine (0.8-1.5) mg/dL Est GFR ( Amer) Est GFR (Non-Af Amer) POC Glucose (mg/dL) (65-110) mg/dL Random Glucose (75-110) mg/dL Calcium (8.6-10.4) mg/dl Phosphorus (2.5-4.5) mg/dL Magnesium (1.6-2.3) mg/dL Total Bilirubin (0.2-1.3) mg/dL AST (17-59) U/L ALT (21-72) U/L Alkaline Phosphatase (38-126) U/L Total Creatine Kinase (55-170) U/L CK-MB (Mass) (0.0-3.38) ng/mL Troponin I (0.00-0.120) ng/mL Total Protein (6.3-8.3) g/dL Albumin (3.5-5.0) g/dL Globulin (2.2-3.9) gm/dL Albumin/Globulin Ratio (1.0-2.1) Procalcitonin 23.43 H (0.19-0.49) NG/ML 10/17/17 Range/Units 11:04 WBC (4.8-10.8) K/uL RBC (4.40-5.90) Mil/uL Hgb (12.0-18.0) g/dL Hct (35.0-51.0) % MCV (80.0-94.0) fL MCH (27.0-31.0) pg MCHC (33.0-37.0) g/dL RDW (11.5-14.5) % Plt Count (130-400) K/uL MPV (7.2-11.7) fL Neut % (Auto) (50.0-75.0) % Lymph % (Auto) (20.0-40.0) % Morgan % (Auto) (0.0-10.0) % Eos % (Auto) (0.0-4.0) % Baso % (Auto) (0.0-2.0) % Neut # (Auto) (1.8-7.0) K/uL Lymph # (Auto) (1.0-4.3) K/uL Morgan # (Auto) (0.0-0.8) K/uL Eos # (Auto) (0.0-0.7) K/uL Baso # (Auto) (0.0-0.2) K/uL Neutrophils % (Manual) (50-75) % Band Neutrophils % (0-2) % Lymphocytes % (Manual) (20-40) % Monocytes % (Manual) (0-10) % Eosinophils % (Manual) (0-4) % Basophils % (Manual) (0-2) % Nucleated RBC % (0-0) % Differential Comment Platelet Estimate (NORMAL) Large Platelets Hypochromasia (manual) Poikilocytosis (manual Anisocytosis (manual) Microcytosis (manual) Target Cells Josey Cells Fibrinogen (200-400) mg/dL Fibrin Degrad Products (NEGATIVE) Fibrin Degrad Prod, Qt (<10) ug/mL Puncture Site pCO2 (35-45) mm/Hg pO2 (80-100) mm/Hg HCO3 (21-28) mmol/L ABG pH (7.35-7.45) ABG Total CO2 (22-28) mmol/L ABG O2 Saturation (95-98) % ABG Base Excess (-2.0-3.0) mmol/L ABG Hemoglobin (11.7-17.4) g/dL ABG Carboxyhemoglobin (0.5-1.5) % POC ABG HHb (Measured) (0.0-5.0) % ABG Methemoglobin (0.0-3.0) % Philippe Test A-a O2 Difference mm/Hg Respiratory Index Hgb O2 Saturation (95.0-98.0) % Vent Mode Mechanical Rate FiO2 % Tidal Volume PEEP Crit Value Called To Crit Value Called By Crit Value Read Back Blood Gas Notified Time Sodium (132-148) mmol/L Potassium (3.6-5.2) mmol/L Chloride (98-107) mmol/L Carbon Dioxide (22-30) mmol/L Anion Gap (10-20) BUN (9-20) mg/dL Creatinine (0.8-1.5) mg/dL Est GFR ( Amer) Est GFR (Non-Af Amer) POC Glucose (mg/dL) 237 H (65-110) mg/dL Random Glucose (75-110) mg/dL Calcium (8.6-10.4) mg/dl Phosphorus (2.5-4.5) mg/dL Magnesium (1.6-2.3) mg/dL Total Bilirubin (0.2-1.3) mg/dL AST (17-59) U/L ALT (21-72) U/L Alkaline Phosphatase (38-126) U/L Total Creatine Kinase (55-170) U/L CK-MB (Mass) (0.0-3.38) ng/mL Troponin I (0.00-0.120) ng/mL Total Protein (6.3-8.3) g/dL Albumin (3.5-5.0) g/dL Globulin (2.2-3.9) gm/dL Albumin/Globulin Ratio (1.0-2.1) Procalcitonin (0.19-0.49) NG/ML Laboratory Results - last 24 hr 10/17/17 10/17/17 10/17/17 11:04 11:47 11:47 WBC RBC Hgb Hct MCV MCH MCHC RDW Plt Count MPV Neut % (Auto) Lymph % (Auto) Morgan % (Auto) Eos % (Auto) Baso % (Auto) Neut # (Auto) Lymph # (Auto) Morgan # (Auto) Eos # (Auto) Baso # (Auto) Neutrophils % (Manual) Band Neutrophils % Lymphocytes % (Manual) Monocytes % (Manual) Eosinophils % (Manual) Basophils % (Manual) Nucleated RBC % Differential Comment Platelet Estimate Large Platelets Hypochromasia (manual) Poikilocytosis (manual Anisocytosis (manual) Microcytosis (manual) Target Cells Villanova Cells Fibrinogen 684 H Fibrin Degrad Products Positive H Fibrin Degrad Prod, Qt >40 H Puncture Site pCO2 pO2 HCO3 ABG pH ABG Total CO2 ABG O2 Saturation ABG Base Excess ABG Hemoglobin ABG Carboxyhemoglobin POC ABG HHb (Measured) ABG Methemoglobin Philippe Test A-a O2 Difference Respiratory Index Hgb O2 Saturation Vent Mode Mechanical Rate FiO2 Tidal Volume PEEP Crit Value Called To Crit Value Called By Crit Value Read Back Blood Gas Notified Time Sodium Potassium Chloride Carbon Dioxide Anion Gap BUN Creatinine Est GFR ( Amer) Est GFR (Non-Af Amer) POC Glucose (mg/dL) 237 H Random Glucose Calcium Phosphorus Magnesium Total Bilirubin AST ALT Alkaline Phosphatase Total Creatine Kinase CK-MB (Mass) Troponin I Total Protein Albumin Globulin Albumin/Globulin Ratio Procalcitonin 23.43 H 10/17/17 10/17/17 10/17/17 11:47 11:47 12:02 WBC 17.2 H RBC 4.02 L Hgb 11.2 L Hct 35.0 MCV 86.9 MCH 27.8 MCHC 32.0 L RDW 18.0 H Plt Count 47 L MPV 11.0 Neut % (Auto) 93.7 H Lymph % (Auto) 1.7 L Morgan % (Auto) 2.8 Eos % (Auto) 1.7 Baso % (Auto) 0.1 Neut # (Auto) 16.1 H Lymph # (Auto) 0.3 L Morgan # (Auto) 0.5 Eos # (Auto) 0.3 Baso # (Auto) 0.0 Neutrophils % (Manual) 90 H Band Neutrophils % Lymphocytes % (Manual) 3 L Monocytes % (Manual) 1 Eosinophils % (Manual) 5 H Basophils % (Manual) 1 Nucleated RBC % 2 H Differential Comment Platelet Estimate Decreased L Large Platelets Present Hypochromasia (manual) Slight Poikilocytosis (manual Slight Anisocytosis (manual) Slight Microcytosis (manual) Slight Target Cells Slight Josey Cells Slight Fibrinogen Fibrin Degrad Products Fibrin Degrad Prod, Qt Puncture Site pCO2 pO2 HCO3 ABG pH ABG Total CO2 ABG O2 Saturation ABG Base Excess ABG Hemoglobin ABG Carboxyhemoglobin POC ABG HHb (Measured) ABG Methemoglobin Philippe Test A-a O2 Difference Respiratory Index Hgb O2 Saturation Vent Mode Mechanical Rate FiO2 Tidal Volume PEEP Crit Value Called To Crit Value Called By Crit Value Read Back Blood Gas Notified Time Sodium 139 Potassium 3.7 Chloride 96 L Carbon Dioxide 32 H Anion Gap 15 BUN 34 H Creatinine 2.4 H Est GFR ( Amer) 35 Est GFR (Non-Af Amer) 29 POC Glucose (mg/dL) 201 H Random Glucose 231 H Calcium 8.2 L Phosphorus 5.7 H Magnesium 1.8 Total Bilirubin 2.1 H AST 25 ALT 26 Alkaline Phosphatase 138 H Total Creatine Kinase CK-MB (Mass) Troponin I Total Protein 6.8 Albumin 3.4 L Globulin 3.4 Albumin/Globulin Ratio 1.0 Procalcitonin 10/17/17 10/17/17 10/17/17 14:13 15:40 16:13 WBC RBC Hgb Hct MCV MCH MCHC RDW Plt Count MPV Neut % (Auto) Lymph % (Auto) Morgan % (Auto) Eos % (Auto) Baso % (Auto) Neut # (Auto) Lymph # (Auto) Morgan # (Auto) Eos # (Auto) Baso # (Auto) Neutrophils % (Manual) Band Neutrophils % Lymphocytes % (Manual) Monocytes % (Manual) Eosinophils % (Manual) Basophils % (Manual) Nucleated RBC % Differential Comment Platelet Estimate Large Platelets Hypochromasia (manual) Poikilocytosis (manual Anisocytosis (manual) Microcytosis (manual) Target Cells Villanova Cells Fibrinogen Fibrin Degrad Products Fibrin Degrad Prod, Qt Puncture Site pCO2 pO2 HCO3 ABG pH ABG Total CO2 ABG O2 Saturation ABG Base Excess ABG Hemoglobin ABG Carboxyhemoglobin POC ABG HHb (Measured) ABG Methemoglobin Philippe Test A-a O2 Difference Respiratory Index Hgb O2 Saturation Vent Mode Mechanical Rate FiO2 Tidal Volume PEEP Crit Value Called To Crit Value Called By Crit Value Read Back Blood Gas Notified Time Sodium Potassium Chloride Carbon Dioxide Anion Gap BUN Creatinine Est GFR ( Amer) Est GFR (Non-Af Amer) POC Glucose (mg/dL) 138 H 151 H 140 H Random Glucose Calcium Phosphorus Magnesium Total Bilirubin AST ALT Alkaline Phosphatase Total Creatine Kinase CK-MB (Mass) Troponin I Total Protein Albumin Globulin Albumin/Globulin Ratio Procalcitonin 10/17/17 10/17/17 10/17/17 17:02 17:57 19:05 WBC 20.5 H RBC 4.05 L Hgb 11.3 L Hct 36.0 MCV 88.9 D MCH 28.0 MCHC 31.5 L RDW 18.2 H Plt Count 61 L MPV 11.9 H Neut % (Auto) Lymph % (Auto) Morgan % (Auto) Eos % (Auto) Baso % (Auto) Neut # (Auto) Lymph # (Auto) Morgan # (Auto) Eos # (Auto) Baso # (Auto) Neutrophils % (Manual) Band Neutrophils % Lymphocytes % (Manual) Monocytes % (Manual) Eosinophils % (Manual) Basophils % (Manual) Nucleated RBC % Differential Comment Platelet Estimate Large Platelets Hypochromasia (manual) Poikilocytosis (manual Anisocytosis (manual) Microcytosis (manual) Target Cells Villanova Cells Fibrinogen Fibrin Degrad Products Fibrin Degrad Prod, Qt Puncture Site pCO2 pO2 HCO3 ABG pH ABG Total CO2 ABG O2 Saturation ABG Base Excess ABG Hemoglobin ABG Carboxyhemoglobin POC ABG HHb (Measured) ABG Methemoglobin Philippe Test A-a O2 Difference Respiratory Index Hgb O2 Saturation Vent Mode Mechanical Rate FiO2 Tidal Volume PEEP Crit Value Called To Crit Value Called By Crit Value Read Back Blood Gas Notified Time Sodium Potassium Chloride Carbon Dioxide Anion Gap BUN Creatinine Est GFR ( Amer) Est GFR (Non-Af Amer) POC Glucose (mg/dL) 141 H 164 H Random Glucose Calcium Phosphorus Magnesium Total Bilirubin AST ALT Alkaline Phosphatase Total Creatine Kinase CK-MB (Mass) Troponin I Total Protein Albumin Globulin Albumin/Globulin Ratio Procalcitonin 10/17/17 10/17/17 10/17/17 19:05 19:14 20:07 WBC RBC Hgb Hct MCV MCH MCHC RDW Plt Count MPV Neut % (Auto) Lymph % (Auto) Morgan % (Auto) Eos % (Auto) Baso % (Auto) Neut # (Auto) Lymph # (Auto) Morgan # (Auto) Eos # (Auto) Baso # (Auto) Neutrophils % (Manual) Band Neutrophils % Lymphocytes % (Manual) Monocytes % (Manual) Eosinophils % (Manual) Basophils % (Manual) Nucleated RBC % Differential Comment Platelet Estimate Large Platelets Hypochromasia (manual) Poikilocytosis (manual Anisocytosis (manual) Microcytosis (manual) Target Cells Josey Cells Fibrinogen Fibrin Degrad Products Fibrin Degrad Prod, Qt Puncture Site pCO2 pO2 HCO3 ABG pH ABG Total CO2 ABG O2 Saturation ABG Base Excess ABG Hemoglobin ABG Carboxyhemoglobin POC ABG HHb (Measured) ABG Methemoglobin Philippe Test A-a O2 Difference Respiratory Index Hgb O2 Saturation Vent Mode Mechanical Rate FiO2 Tidal Volume PEEP Crit Value Called To Crit Value Called By Crit Value Read Back Blood Gas Notified Time Sodium 138 Potassium 4.7 Chloride 96 L Carbon Dioxide 30 Anion Gap 17 BUN 29 H Creatinine 2.8 H Est GFR ( Amer) 29 Est GFR (Non-Af Amer) 24 POC Glucose (mg/dL) 163 H 135 H Random Glucose 161 H Calcium 8.6 Phosphorus 8.0 H Magnesium 1.9 Total Bilirubin AST ALT Alkaline Phosphatase Total Creatine Kinase CK-MB (Mass) Troponin I Total Protein Albumin Globulin Albumin/Globulin Ratio Procalcitonin 10/17/17 10/17/17 10/17/17 20:14 21:55 23:38 WBC RBC Hgb Hct MCV MCH MCHC RDW Plt Count MPV Neut % (Auto) Lymph % (Auto) Morgan % (Auto) Eos % (Auto) Baso % (Auto) Neut # (Auto) Lymph # (Auto) Morgan # (Auto) Eos # (Auto) Baso # (Auto) Neutrophils % (Manual) Band Neutrophils % Lymphocytes % (Manual) Monocytes % (Manual) Eosinophils % (Manual) Basophils % (Manual) Nucleated RBC % Differential Comment Platelet Estimate Large Platelets Hypochromasia (manual) Poikilocytosis (manual Anisocytosis (manual) Microcytosis (manual) Target Cells Villanova Cells Fibrinogen Fibrin Degrad Products Fibrin Degrad Prod, Qt Puncture Site [place] pCO2 80 H* pO2 64 L HCO3 22.3 ABG pH 7.14 L* ABG Total CO2 29.7 H ABG O2 Saturation 92.5 L ABG Base Excess -3.2 L ABG Hemoglobin 11.2 L ABG Carboxyhemoglobin 2.7 H POC ABG HHb (Measured) 7.2 H ABG Methemoglobin 0.7 Philippe Test Na A-a O2 Difference 549.0 Respiratory Index 8.6 Hgb O2 Saturation 89.4 L Vent Mode Prvc Mechanical Rate 24 FiO2 100.0 Tidal Volume 500 PEEP 5 Crit Value Called To Nathen humphreys md Crit Value Called By Keon Crit Value Read Back Y Blood Gas Notified Time 6626 Sodium Potassium Chloride Carbon Dioxide Anion Gap BUN Creatinine Est GFR ( Amer) Est GFR (Non-Af Amer) POC Glucose (mg/dL) 149 H Random Glucose Calcium Phosphorus Magnesium Total Bilirubin AST ALT Alkaline Phosphatase Total Creatine Kinase 113 CK-MB (Mass) 9.13 H Troponin I 0.4890 H* Total Protein Albumin Globulin Albumin/Globulin Ratio Procalcitonin 10/18/17 10/18/17 10/18/17 05:21 05:56 06:21 WBC 20.3 H RBC 3.77 L Hgb 10.4 L Hct 33.8 L MCV 89.7 MCH 27.6 MCHC 30.8 L RDW 18.1 H Plt Count 61 L MPV 11.8 H Neut % (Auto) 84.5 H Lymph % (Auto) 4.3 L Morgan % (Auto) 10.4 H Eos % (Auto) 0.7 Baso % (Auto) 0.1 Neut # (Auto) 17.1 H Lymph # (Auto) 0.9 L Morgan # (Auto) 2.1 H Eos # (Auto) 0.2 Baso # (Auto) 0.0 Neutrophils % (Manual) 81 H Band Neutrophils % 3 H Lymphocytes % (Manual) 6 L Monocytes % (Manual) 9 Eosinophils % (Manual) 1 Basophils % (Manual) Nucleated RBC % 1 H Differential Comment Platelet Estimate Decreased L Large Platelets Present Hypochromasia (manual) Slight Poikilocytosis (manual Slight Anisocytosis (manual) Slight Microcytosis (manual) Target Cells Slight Villanova Cells Slight Fibrinogen Fibrin Degrad Products Fibrin Degrad Prod, Qt Puncture Site Gertrude pCO2 84 H* pO2 100 HCO3 21.0 ABG pH 7.10 L* ABG Total CO2 28.7 H ABG O2 Saturation 97.9 ABG Base Excess -5.0 L ABG Hemoglobin 11.7 ABG Carboxyhemoglobin 2.3 H POC ABG HHb (Measured) 2.0 ABG Methemoglobin 1.2 Philippe Test Na A-a O2 Difference 508.0 Respiratory Index 5.1 Hgb O2 Saturation 94.5 L Vent Mode Prvc Mechanical Rate 26 FiO2 100.0 Tidal Volume 500 PEEP 5 Crit Value Called To Esteban rn Crit Value Called By Rissa metal machine operator Crit Value Read Back Y Blood Gas Notified Time 533 Sodium Potassium Chloride Carbon Dioxide Anion Gap BUN Creatinine Est GFR ( Amer) Est GFR (Non-Af Amer) POC Glucose (mg/dL) 175 H Random Glucose Calcium Phosphorus Magnesium Total Bilirubin AST ALT Alkaline Phosphatase Total Creatine Kinase CK-MB (Mass) Troponin I Total Protein Albumin Globulin Albumin/Globulin Ratio Procalcitonin 10/18/17 06:21 WBC RBC Hgb Hct MCV MCH MCHC RDW Plt Count MPV Neut % (Auto) Lymph % (Auto) Morgan % (Auto) Eos % (Auto) Baso % (Auto) Neut # (Auto) Lymph # (Auto) Morgan # (Auto) Eos # (Auto) Baso # (Auto) Neutrophils % (Manual) Band Neutrophils % Lymphocytes % (Manual) Monocytes % (Manual) Eosinophils % (Manual) Basophils % (Manual) Nucleated RBC % Differential Comment Platelet Estimate Large Platelets Hypochromasia (manual) Poikilocytosis (manual Anisocytosis (manual) Microcytosis (manual) Target Cells Villanova Cells Fibrinogen Fibrin Degrad Products Fibrin Degrad Prod, Qt Puncture Site pCO2 pO2 HCO3 ABG pH ABG Total CO2 ABG O2 Saturation ABG Base Excess ABG Hemoglobin ABG Carboxyhemoglobin POC ABG HHb (Measured) ABG Methemoglobin Philippe Test A-a O2 Difference Respiratory Index Hgb O2 Saturation Vent Mode Mechanical Rate FiO2 Tidal Volume PEEP Crit Value Called To Crit Value Called By Crit Value Read Back Blood Gas Notified Time Sodium 140 Potassium 5.0 Chloride 97 L Carbon Dioxide 29 Anion Gap 18 BUN 38 H Creatinine 3.7 H Est GFR ( Amer) 21 Est GFR (Non-Af Amer) 18 POC Glucose (mg/dL) Random Glucose 195 H Calcium 8.2 L Phosphorus 10.3 H Magnesium 1.8 Total Bilirubin 2.2 H AST 67 H D ALT 56 Alkaline Phosphatase 129 H Total Creatine Kinase CK-MB (Mass) Troponin I Total Protein 7.1 Albumin 3.6 Globulin 3.4 Albumin/Globulin Ratio 1.1 Procalcitonin Fingerstick Blood Sugar Results: 175 Review of Systems - Review of Systems Systems not reviewed;Unavailable: Intubated All systems: reviewed and no additional remarkable complaints except (as per HPI ) Critical Care Progress Note - Ventilator Checklist Head of Bed 30 Degrees: Yes Daily Sedation Vacation: Yes Daily Assessment of Readiness to Wean: Yes Daily Spontaneous Breathing Trial: Yes PUD Prophalyxis: Yes DVT Prophylaxis: Yes Oral Care with Chlorhexidine Gluconate {CHG}: Yes - Vent Settings MODE:: PRVC TIDAL VOLUME:: 550 RESP RATE:: 30 FIO2:: 100 PEEP:: 5 - Extremities/Vascular Does the Patient need a Central Venous Catheter?: Yes Does the Patient need a Campbell Catheter?: Yes - Restraints Justification for Restraints: High risk for self extubation, High risk for harming self - Prophylaxis GI Prophylaxis GI: PPI Assessment/Plan - Assessment and Plan (Free Text) Assessment: This is a 47 year old male with PMH of COPD, DM, HTN, CKD, chronic liver disease and DVT s/p IVC filter, splenectomy who presented to the ED c/o SOB, "just like usual," and was admitted for mild respiratory distress with wheezes, retractions and hyperkalemia. Pt was in [facility] and received first time hemodialysis. Pt was managed on the medical floor until [facility] was called on 10/15 due to no pulse. Pt was noted to be in asystole and was subsequently given CPR for 15-20 min. Pt was intubated at that time for airway control. Pt was transferred to the ICU for management after ROSC was achieved. ABG showed pH 6.97, PCO2 130. Pt remains intubated but is no longer sedated. Pt was noted to become hypotensive (MAP in the low 50s/high 40s) and was placed on a Levophed gtt to maintain MAP above 60 mmHg. Phenylephrine was added to manage shock, and vasopressin was subsequently added as well. Neuro: - Monitor for mental status changes - sedation has been discontinued - Head CT (10/16) shows no intracranial hemorrhage. Chornic pansinusitis. Air- fluid levels in maxillary antra bilaterally, nonspecific. Left frontal osteoma. Bilateral mastoid effusion. - f/u repeat head CT - Bedside EEG ordered as per neuro; will f/u with re - f/u neuro recs - pt will be sedated, followed by paralysis to attempt to control respiratory acidosis Cardio: - Echocardiogram (10/13) shows LVEF of 66%. Mildly dilated LA. Mild concentric LVH. Abnormal septal motion from RV pressure overload. Sclerotic probably bicuspid aortic valve. Trace AI. Mild MR, TR. Severe pulmonary hypertension. No pericardial effusion seen. - Maintain SBP between 140 mmHg and 160 mmHg - Maintain MAP>60mmHg - levophed gtt, phenylephrine gtt, vasopressin gtt for hypotensive septic shock - troponin is elevated at 0.4890; likely secondary to combination of compressions and ckd - f/u cardiology recs Pulm: - CXR (10/18) shows pulmonary edema, infiltrates and fibrosis. - continue doxyxycline, zosyn - continue PRVC (550/30/100%/5); daily ventilation weaning - ABG shows respiratory acidosis; will attempt to increase i:e ratio to prevent auto-PEEP - paO2 is improved - HoB >30 degrees - oral care - maintain spo2>90% GI: - Abd/Chest/pelv Ct (10/15) shows scattered foci of airspace consolidation more prominent at the mid and lower portion of the lungs. Findings are nonspecific. Cardiomegaly. Re-demonstration of mediastinal lymphadenopathy. Acute fracture at the anterior aspect of the left 5th rib. No significant interval change in the abdomen and pelvis is noted since the previous exam. No evidence of acute pathology in the abdomen and pelvis. - Protonix for GI ppx Renal: - maintain euvolemia - henrique on ckd; creatinine improves after dialysis but becomes elevated again - replete electrolytes as needed - Dialysis ([facility]); last dialyzed yesterday (800 mL was removed) - relative metabolic acidosis; continue sodium bicarb po - f/u nephro recs Endo: - maintain euglycemia - ISS medium - accucheck q1h Heme: - H/H stable - thrombocytopenia at 61; no active bleeding, no need for transfusion at this time - f/u peripheral smear - (10/17) fibrinogen was was, FDP is greater than 40; likely not DIC - Pt last received Eliquis (10/15), PTT is currently elevated at 67. No anticoagulation at this time. ID: - continue doxycycline, zosyn - pneumonia; leukocytosis is downtrending - procalcitonin (10/17) is elevated at 23.43 - f/u repeat procalcitonin - Urine culture final shows no growth - Sputum gram strain final shows rare gram positive bacilli and moderate PMN WBCs - sputum cx prelim shows normal oral kwadwo PPX: Protonix for GI; SCDs Dispo: Continue ICU care; prognosis is poor Case was reviewed and discussed with attending physician, Dr. Cruz <Alex Cruz S - Last Filed: 10/18/17 16:54> CCU Objective - Vital Signs / Intake & Output Vital Signs (Last 4 hours): Vital Signs Temp Pulse Resp BP Pulse Ox 10/18/17 16:32 101 H 31 H 113/59 L 100 10/18/17 16:30 102 H 31 H 98 10/18/17 16:03 106 H 30 H 118/62 98 10/18/17 16:00 98.8 F 100 H 30 H 98 10/18/17 15:32 99 H 30 H 108/54 L 10/18/17 15:30 100 H 30 H 99 10/18/17 15:02 102 H 30 H 116/60 10/18/17 15:00 103 H 30 H 98 10/18/17 14:32 104 H 30 H 122/71 100 10/18/17 14:30 107 H 30 H 98 10/18/17 14:02 111 H 30 H 127/65 100 10/18/17 14:00 112 H 30 H 99 10/18/17 13:32 109 H 30 H 123/66 100 10/18/17 13:30 112 H 31 H 100 10/18/17 13:11 107 H 31 H 127/63 10/18/17 13:00 104 H 28 H 99 Intake and Output (Last 8hrs): Intake & Output 10/18/17 10/18/17 10/18/17 06:59 14:59 22:59 Intake Total 1519.2 1949.3 629.6 Balance 1519.2 1949.3 629.6 Weight 320 lb Intake: IV 540 600 267 Intake, IV Amount 979.2 1329.3 322.6 Left 4.8 14.6 14.6 Left Distal Port Femoral 225.0 262.5 60 Left Medial Port Femoral 89.4 13.8 0.6 Left Proximal Port 132.4 132.4 Left Proximal Port 466 100 Femoral Left TLC medial port 660 440 15 Tube Feeding 20 40 - Medications Active Medications: Active Medications Generic Name Dose Route Start Last Admin Trade Name Freq PRN Reason Stop Dose Admin Albuterol/Ipratropium 3 ml 10/15/17 14:00 10/18/17 13:32 Duoneb 3 Mg/0.5 Mg (3 Ml) Ud INH 3 ml RQ6 ANABELLA Administration Artificial Tears 0 gm 10/18/17 16:00 Lacri-Lube OU Q4 ANABELLA Calcium Acetate 667 mg 10/18/17 14:00 10/18/17 13:43 Phoslo GT 667 mg TID ANABELLA Administration Dextrose 0 ml 10/13/17 10:07 Dextrose 50% Inj IV STAT PRN Hypoglycemia Protocol Protocol Dextrose 0 gm 10/13/17 10:07 Glutose 15 PO ONCE PRN Hypoglycemia Protocol Protocol Dextrose 0 ml 10/15/17 23:36 Dextrose 50% Inj IV STAT PRN Hypoglycemia Protocol Protocol Dextrose 0 gm 10/15/17 23:36 Glutose 15 PO ONCE PRN Hypoglycemia Protocol Protocol Glucagon 0 mg 10/13/17 10:07 Glucagen Diagnostic Kit IM STAT PRN Hypoglycemia Protocol Protocol Glucagon 0 mg 10/15/17 23:36 Glucagen Diagnostic Kit IM STAT PRN Hypoglycemia Protocol Protocol Dextrose 1,000 mls @ 0 mls/hr 10/13/17 10:07 Dextrose 5% In Water 1000 Ml IV .Q0M PRN Hypoglycemia Protocol Protocol Per Protocol Doxycycline Hyclate 100 mg/ 100 mls @ 100 mls/hr 10/15/17 18:00 10/18/17 05: 01 Sodium Chloride IVPB 100 mls/hr Q12H ANABELLA Administration Protocol Dextrose 1,000 mls @ 0 mls/hr 10/15/17 23:36 Dextrose 5% In Water 1000 Ml IV .Q0M PRN Hypoglycemia Protocol Protocol Per Protocol Vasopressin 40 units/ Sodium 40 mls @ 0.6 mls/hr 10/17/17 19:00 10/18/17 16: 00 Chloride IV 0 units/min .Q24H ANABELLA 0 mls/hr Protocol Titration 0.01 UNITS/MIN Norepinephrine Bitartrate 16 500 mls @ 7.5 mls/hr 10/17/17 23:50 10/18/17 09: 00 mg/ Sodium Chloride IV 16 mcg/min .Q24H PRN 30 mls/hr TITRATE PER MD ORDER Titration Protocol 4 MCG/MIN Phenylephrine HCl 60 mg/ 500 mls @ 10 mls/hr 10/17/17 23:52 10/18/17 15:00 Sodium Chloride IV 0 mcg/min .Q24H PRN 0 mls/hr TITRATE PER MD ORDER Titration Protocol 20 MCG/MIN Meropenem 500 mg/ Sodium 100 mls @ 100 mls/hr 10/18/17 12:30 10/18/17 13:20 Chloride IVPB 100 mls/hr Q8H ANABELLA Administration Protocol Cisatracurium Besylate 100 mg/ 250 mls @ 66.28 mls/hr 10/18/17 11:30 16:31 Dextrose IV 3 mcg/kg/min .Q3H47M ANABELLA 66.28 mls/hr Protocol Administration 3 MCG/KG/MIN Dexmedetomidine HCl 200 mcg/ 50 mls @ 7.36 mls/hr 10/18/17 11:30 10/18/17 12: 50 Sodium Chloride IV 0.2 mcg/kg/hr TITR PRN 7.36 mls/hr Sedation Administration Protocol 0.2 MCG/KG/HR Insulin Human Regular 0 unit 10/15/17 18:00 10/18/17 12:00 Novolin R SC Not Given Q6H ANABELLA Protocol Lorazepam 1 mg 10/17/17 22:02 10/17/17 22:15 Ativan IVP 1 mg Q4H PRN Administration Agitation Pantoprazole Sodium 40 mg 10/16/17 01:00 10/18/17 13:43 Protonix Inj IVP 40 mg Q12H ANABELLA Administration Rosuvastatin Calcium 10 mg 10/18/17 22:00 Crestor PO HS ANABELLA Sodium Bicarbonate 650 mg 10/15/17 10:00 10/18/17 13:43 Sodium Bicarbonate Tab PO 650 mg TID ANABELLA Administration - Patient Studies Lab Studies: Microbiology Studies 10/15/17 16:40 Blood Culture - Preliminary Blood-Venous NO GROWTH AFTER 48 HOURS 10/15/17 16:00 Blood Culture - Preliminary Blood-Venous NO GROWTH AFTER 48 HOURS Lab Studies 10/18/17 10/18/17 10/18/17 Range/Units 14:11 14:11 13:18 WBC (4.8-10.8) K/uL RBC (4.40-5.90) Mil/uL Hgb (12.0-18.0) g/dL Hct (35.0-51.0) % MCV (80.0-94.0) fL MCH (27.0-31.0) pg MCHC (33.0-37.0) g/dL RDW (11.5-14.5) % Plt Count (130-400) K/uL MPV (7.2-11.7) fL Neut % (Auto) (50.0-75.0) % Lymph % (Auto) (20.0-40.0) % Morgan % (Auto) (0.0-10.0) % Eos % (Auto) (0.0-4.0) % Baso % (Auto) (0.0-2.0) % Neut # (Auto) (1.8-7.0) K/uL Lymph # (Auto) (1.0-4.3) K/uL Morgan # (Auto) (0.0-0.8) K/uL Eos # (Auto) (0.0-0.7) K/uL Baso # (Auto) (0.0-0.2) K/uL Neutrophils % (Manual) (50-75) % Band Neutrophils % (0-2) % Lymphocytes % (Manual) (20-40) % Monocytes % (Manual) (0-10) % Eosinophils % (Manual) (0-4) % Nucleated RBC % (0-0) % Differential Comment Platelet Estimate (NORMAL) Large Platelets Hypochromasia (manual) Poikilocytosis (manual Anisocytosis (manual) Target Cells Josey Cells ESR 95 H (0-15) mm/hr Puncture Site A line pCO2 60 H (35-45) mm/Hg pO2 84 (80-100) mm/Hg HCO3 22.1 (21-28) mmol/L ABG pH 7.23 L (7.35-7.45) ABG Total CO2 26.9 (22-28) mmol/L ABG O2 Saturation 97.4 (95-98) % ABG Base Excess -3.5 L (-2.0-3.0) mmol/L ABG Hemoglobin (11.7-17.4) g/dL ABG Carboxyhemoglobin (0.5-1.5) % POC ABG HHb (Measured) (0.0-5.0) % ABG Methemoglobin (0.0-3.0) % Philippe Test Na ABG Potassium 4.4 (3.6-5.2) mmol/L A-a O2 Difference 554.0 mm/Hg Respiratory Index 6.6 Hgb O2 Saturation (95.0-98.0) % Glucose 231 H (75-110) mg/dl Lactate 1.8 (0.7-2.1) mmol/L Vent Mode Prvc Mechanical Rate 30 FiO2 100.0 % Tidal Volume 550 PEEP 5 Crit Value Called To Crit Value Called By Crit Value Read Back Blood Gas Notified Time Sodium 137.0 (132-148) mmol/L Potassium (3.6-5.2) mmol/L Chloride 103.0 (98-107) mmol/L Carbon Dioxide (22-30) mmol/L Anion Gap (10-20) BUN (9-20) mg/dL Creatinine (0.8-1.5) mg/dL Est GFR ( Amer) Est GFR (Non-Af Amer) POC Glucose (mg/dL) (65-110) mg/dL Random Glucose (75-110) mg/dL Calcium (8.6-10.4) mg/dl Phosphorus (2.5-4.5) mg/dL Magnesium (1.6-2.3) mg/dL Total Bilirubin (0.2-1.3) mg/dL AST (17-59) U/L ALT (21-72) U/L Alkaline Phosphatase (38-126) U/L Lactate Dehydrogenase 1378 H (313-618) U/L Total Creatine Kinase (55-170) U/L CK-MB (Mass) (0.0-3.38) ng/mL Troponin I (0.00-0.120) ng/mL C-Reactive Protein 178.50 H (0.0-9.9) mg/L Total Protein (6.3-8.3) g/dL Albumin (3.5-5.0) g/dL Globulin (2.2-3.9) gm/dL Albumin/Globulin Ratio (1.0-2.1) Arterial Blood Potassium 4.4 (3.6-5.2) mmol/L 10/18/17 10/18/17 10/18/17 Range/Units 11:44 06:21 06:21 WBC 20.3 H (4.8-10.8) K/uL RBC 3.77 L (4.40-5.90) Mil/uL Hgb 10.4 L (12.0-18.0) g/dL Hct 33.8 L (35.0-51.0) % MCV 89.7 (80.0-94.0) fL MCH 27.6 (27.0-31.0) pg MCHC 30.8 L (33.0-37.0) g/dL RDW 18.1 H (11.5-14.5) % Plt Count 61 L (130-400) K/uL MPV 11.8 H (7.2-11.7) fL Neut % (Auto) 84.5 H (50.0-75.0) % Lymph % (Auto) 4.3 L (20.0-40.0) % Morgan % (Auto) 10.4 H (0.0-10.0) % Eos % (Auto) 0.7 (0.0-4.0) % Baso % (Auto) 0.1 (0.0-2.0) % Neut # (Auto) 17.1 H (1.8-7.0) K/uL Lymph # (Auto) 0.9 L (1.0-4.3) K/uL Morgan # (Auto) 2.1 H (0.0-0.8) K/uL Eos # (Auto) 0.2 (0.0-0.7) K/uL Baso # (Auto) 0.0 (0.0-0.2) K/uL Neutrophils % (Manual) 81 H (50-75) % Band Neutrophils % 3 H (0-2) % Lymphocytes % (Manual) 6 L (20-40) % Monocytes % (Manual) 9 (0-10) % Eosinophils % (Manual) 1 (0-4) % Nucleated RBC % 1 H (0-0) % Differential Comment Platelet Estimate Decreased L (NORMAL) Large Platelets Present Hypochromasia (manual) Slight Poikilocytosis (manual Slight Anisocytosis (manual) Slight Target Cells Slight Villanova Cells Slight ESR (0-15) mm/hr Puncture Site pCO2 (35-45) mm/Hg pO2 (80-100) mm/Hg HCO3 (21-28) mmol/L ABG pH (7.35-7.45) ABG Total CO2 (22-28) mmol/L ABG O2 Saturation (95-98) % ABG Base Excess (-2.0-3.0) mmol/L ABG Hemoglobin (11.7-17.4) g/dL ABG Carboxyhemoglobin (0.5-1.5) % POC ABG HHb (Measured) (0.0-5.0) % ABG Methemoglobin (0.0-3.0) % Philippe Test ABG Potassium (3.6-5.2) mmol/L A-a O2 Difference mm/Hg Respiratory Index Hgb O2 Saturation (95.0-98.0) % Glucose (75-110) mg/dl Lactate (0.7-2.1) mmol/L Vent Mode Mechanical Rate FiO2 % Tidal Volume PEEP Crit Value Called To Crit Value Called By Crit Value Read Back Blood Gas Notified Time Sodium 140 (132-148) mmol/L Potassium 5.0 (3.6-5.2) mmol/L Chloride 97 L (98-107) mmol/L Carbon Dioxide 29 (22-30) mmol/L Anion Gap 18 (10-20) BUN 38 H (9-20) mg/dL Creatinine 3.7 H (0.8-1.5) mg/dL Est GFR ( Amer) 21 Est GFR (Non-Af Amer) 18 POC Glucose (mg/dL) 206 H (65-110) mg/dL Random Glucose 195 H (75-110) mg/dL Calcium 8.2 L (8.6-10.4) mg/dl Phosphorus 10.3 H (2.5-4.5) mg/dL Magnesium 1.8 (1.6-2.3) mg/dL Total Bilirubin 2.2 H (0.2-1.3) mg/dL AST 67 H D (17-59) U/L ALT 56 (21-72) U/L Alkaline Phosphatase 129 H (38-126) U/L Lactate Dehydrogenase (313-618) U/L Total Creatine Kinase (55-170) U/L CK-MB (Mass) (0.0-3.38) ng/mL Troponin I (0.00-0.120) ng/mL C-Reactive Protein (0.0-9.9) mg/L Total Protein 7.1 (6.3-8.3) g/dL Albumin 3.6 (3.5-5.0) g/dL Globulin 3.4 (2.2-3.9) gm/dL Albumin/Globulin Ratio 1.1 (1.0-2.1) Arterial Blood Potassium (3.6-5.2) mmol/L 10/18/17 10/18/17 10/17/17 Range/Units 05:56 05:21 23:38 WBC (4.8-10.8) K/uL RBC (4.40-5.90) Mil/uL Hgb (12.0-18.0) g/dL Hct (35.0-51.0) % MCV (80.0-94.0) fL MCH (27.0-31.0) pg MCHC (33.0-37.0) g/dL RDW (11.5-14.5) % Plt Count (130-400) K/uL MPV (7.2-11.7) fL Neut % (Auto) (50.0-75.0) % Lymph % (Auto) (20.0-40.0) % Morgan % (Auto) (0.0-10.0) % Eos % (Auto) (0.0-4.0) % Baso % (Auto) (0.0-2.0) % Neut # (Auto) (1.8-7.0) K/uL Lymph # (Auto) (1.0-4.3) K/uL Morgan # (Auto) (0.0-0.8) K/uL Eos # (Auto) (0.0-0.7) K/uL Baso # (Auto) (0.0-0.2) K/uL Neutrophils % (Manual) (50-75) % Band Neutrophils % (0-2) % Lymphocytes % (Manual) (20-40) % Monocytes % (Manual) (0-10) % Eosinophils % (Manual) (0-4) % Nucleated RBC % (0-0) % Differential Comment Platelet Estimate (NORMAL) Large Platelets Hypochromasia (manual) Poikilocytosis (manual Anisocytosis (manual) Target Cells Villanova Cells ESR (0-15) mm/hr Puncture Site Gertrude pCO2 84 H* (35-45) mm/Hg pO2 100 (80-100) mm/Hg HCO3 21.0 (21-28) mmol/L ABG pH 7.10 L* (7.35-7.45) ABG Total CO2 28.7 H (22-28) mmol/L ABG O2 Saturation 97.9 (95-98) % ABG Base Excess -5.0 L (-2.0-3.0) mmol/L ABG Hemoglobin 11.7 (11.7-17.4) g/dL ABG Carboxyhemoglobin 2.3 H (0.5-1.5) % POC ABG HHb (Measured) 2.0 (0.0-5.0) % ABG Methemoglobin 1.2 (0.0-3.0) % Philippe Test Na ABG Potassium (3.6-5.2) mmol/L A-a O2 Difference 508.0 mm/Hg Respiratory Index 5.1 Hgb O2 Saturation 94.5 L (95.0-98.0) % Glucose (75-110) mg/dl Lactate (0.7-2.1) mmol/L Vent Mode Prvc Mechanical Rate 26 FiO2 100.0 % Tidal Volume 500 PEEP 5 Crit Value Called To Esteban rn Crit Value Called By Rissa metal machine operator Crit Value Read Back Y Blood Gas Notified Time 533 Sodium (132-148) mmol/L Potassium (3.6-5.2) mmol/L Chloride (98-107) mmol/L Carbon Dioxide (22-30) mmol/L Anion Gap (10-20) BUN (9-20) mg/dL Creatinine (0.8-1.5) mg/dL Est GFR ( Amer) Est GFR (Non-Af Amer) POC Glucose (mg/dL) 175 H 149 H (65-110) mg/dL Random Glucose (75-110) mg/dL Calcium (8.6-10.4) mg/dl Phosphorus (2.5-4.5) mg/dL Magnesium (1.6-2.3) mg/dL Total Bilirubin (0.2-1.3) mg/dL AST (17-59) U/L ALT (21-72) U/L Alkaline Phosphatase (38-126) U/L Lactate Dehydrogenase (313-618) U/L Total Creatine Kinase (55-170) U/L CK-MB (Mass) (0.0-3.38) ng/mL Troponin I (0.00-0.120) ng/mL C-Reactive Protein (0.0-9.9) mg/L Total Protein (6.3-8.3) g/dL Albumin (3.5-5.0) g/dL Globulin (2.2-3.9) gm/dL Albumin/Globulin Ratio (1.0-2.1) Arterial Blood Potassium (3.6-5.2) mmol/L 10/17/17 10/17/17 10/17/17 Range/Units 21:55 20:14 20:07 WBC (4.8-10.8) K/uL RBC (4.40-5.90) Mil/uL Hgb (12.0-18.0) g/dL Hct (35.0-51.0) % MCV (80.0-94.0) fL MCH (27.0-31.0) pg MCHC (33.0-37.0) g/dL RDW (11.5-14.5) % Plt Count (130-400) K/uL MPV (7.2-11.7) fL Neut % (Auto) (50.0-75.0) % Lymph % (Auto) (20.0-40.0) % Morgan % (Auto) (0.0-10.0) % Eos % (Auto) (0.0-4.0) % Baso % (Auto) (0.0-2.0) % Neut # (Auto) (1.8-7.0) K/uL Lymph # (Auto) (1.0-4.3) K/uL Morgan # (Auto) (0.0-0.8) K/uL Eos # (Auto) (0.0-0.7) K/uL Baso # (Auto) (0.0-0.2) K/uL Neutrophils % (Manual) (50-75) % Band Neutrophils % (0-2) % Lymphocytes % (Manual) (20-40) % Monocytes % (Manual) (0-10) % Eosinophils % (Manual) (0-4) % Nucleated RBC % (0-0) % Differential Comment Platelet Estimate (NORMAL) Large Platelets Hypochromasia (manual) Poikilocytosis (manual Anisocytosis (manual) Target Cells Villanova Cells ESR (0-15) mm/hr Puncture Site [facility] pCO2 80 H* (35-45) mm/Hg pO2 64 L (80-100) mm/Hg HCO3 22.3 (21-28) mmol/L ABG pH 7.14 L* (7.35-7.45) ABG Total CO2 29.7 H (22-28) mmol/L ABG O2 Saturation 92.5 L (95-98) % ABG Base Excess -3.2 L (-2.0-3.0) mmol/L ABG Hemoglobin 11.2 L (11.7-17.4) g/dL ABG Carboxyhemoglobin 2.7 H (0.5-1.5) % POC ABG HHb (Measured) 7.2 H (0.0-5.0) % ABG Methemoglobin 0.7 (0.0-3.0) % Philippe Test Na ABG Potassium (3.6-5.2) mmol/L A-a O2 Difference 549.0 mm/Hg Respiratory Index 8.6 Hgb O2 Saturation 89.4 L (95.0-98.0) % Glucose (75-110) mg/dl Lactate (0.7-2.1) mmol/L Vent Mode Prvc Mechanical Rate 24 FiO2 100.0 % Tidal Volume 500 PEEP 5 Crit Value Called To Nathen humphreys md Crit Value Called By Keon Crit Value Read Back Y Blood Gas Notified Time 2157 Sodium (132-148) mmol/L Potassium (3.6-5.2) mmol/L Chloride (98-107) mmol/L Carbon Dioxide (22-30) mmol/L Anion Gap (10-20) BUN (9-20) mg/dL Creatinine (0.8-1.5) mg/dL Est GFR ( Amer) Est GFR (Non-Af Amer) POC Glucose (mg/dL) 135 H (65-110) mg/dL Random Glucose (75-110) mg/dL Calcium (8.6-10.4) mg/dl Phosphorus (2.5-4.5) mg/dL Magnesium (1.6-2.3) mg/dL Total Bilirubin (0.2-1.3) mg/dL AST (17-59) U/L ALT (21-72) U/L Alkaline Phosphatase (38-126) U/L Lactate Dehydrogenase (313-618) U/L Total Creatine Kinase 113 (55-170) U/L CK-MB (Mass) 9.13 H (0.0-3.38) ng/mL Troponin I 0.4890 H* (0.00-0.120) ng/mL C-Reactive Protein (0.0-9.9) mg/L Total Protein (6.3-8.3) g/dL Albumin (3.5-5.0) g/dL Globulin (2.2-3.9) gm/dL Albumin/Globulin Ratio (1.0-2.1) Arterial Blood Potassium (3.6-5.2) mmol/L 10/17/17 10/17/17 10/17/17 Range/Units 19:14 19:05 19:05 WBC 20.5 H (4.8-10.8) K/uL RBC 4.05 L (4.40-5.90) Mil/uL Hgb 11.3 L (12.0-18.0) g/dL Hct 36.0 (35.0-51.0) % MCV 88.9 D (80.0-94.0) fL MCH 28.0 (27.0-31.0) pg MCHC 31.5 L (33.0-37.0) g/dL RDW 18.2 H (11.5-14.5) % Plt Count 61 L (130-400) K/uL MPV 11.9 H (7.2-11.7) fL Neut % (Auto) (50.0-75.0) % Lymph % (Auto) (20.0-40.0) % Morgan % (Auto) (0.0-10.0) % Eos % (Auto) (0.0-4.0) % Baso % (Auto) (0.0-2.0) % Neut # (Auto) (1.8-7.0) K/uL Lymph # (Auto) (1.0-4.3) K/uL Morgan # (Auto) (0.0-0.8) K/uL Eos # (Auto) (0.0-0.7) K/uL Baso # (Auto) (0.0-0.2) K/uL Neutrophils % (Manual) (50-75) % Band Neutrophils % (0-2) % Lymphocytes % (Manual) (20-40) % Monocytes % (Manual) (0-10) % Eosinophils % (Manual) (0-4) % Nucleated RBC % (0-0) % Differential Comment Platelet Estimate (NORMAL) Large Platelets Hypochromasia (manual) Poikilocytosis (manual Anisocytosis (manual) Target Cells Villanova Cells ESR (0-15) mm/hr Puncture Site pCO2 (35-45) mm/Hg pO2 (80-100) mm/Hg HCO3 (21-28) mmol/L ABG pH (7.35-7.45) ABG Total CO2 (22-28) mmol/L ABG O2 Saturation (95-98) % ABG Base Excess (-2.0-3.0) mmol/L ABG Hemoglobin (11.7-17.4) g/dL ABG Carboxyhemoglobin (0.5-1.5) % POC ABG HHb (Measured) (0.0-5.0) % ABG Methemoglobin (0.0-3.0) % Philippe Test ABG Potassium (3.6-5.2) mmol/L A-a O2 Difference mm/Hg Respiratory Index Hgb O2 Saturation (95.0-98.0) % Glucose (75-110) mg/dl Lactate (0.7-2.1) mmol/L Vent Mode Mechanical Rate FiO2 % Tidal Volume PEEP Crit Value Called To Crit Value Called By Crit Value Read Back Blood Gas Notified Time Sodium 138 (132-148) mmol/L Potassium 4.7 (3.6-5.2) mmol/L Chloride 96 L (98-107) mmol/L Carbon Dioxide 30 (22-30) mmol/L Anion Gap 17 (10-20) BUN 29 H (9-20) mg/dL Creatinine 2.8 H (0.8-1.5) mg/dL Est GFR ( Amer) 29 Est GFR (Non-Af Amer) 24 POC Glucose (mg/dL) 163 H (65-110) mg/dL Random Glucose 161 H (75-110) mg/dL Calcium 8.6 (8.6-10.4) mg/dl Phosphorus 8.0 H (2.5-4.5) mg/dL Magnesium 1.9 (1.6-2.3) mg/dL Total Bilirubin (0.2-1.3) mg/dL AST (17-59) U/L ALT (21-72) U/L Alkaline Phosphatase (38-126) U/L Lactate Dehydrogenase (313-618) U/L Total Creatine Kinase (55-170) U/L CK-MB (Mass) (0.0-3.38) ng/mL Troponin I (0.00-0.120) ng/mL C-Reactive Protein (0.0-9.9) mg/L Total Protein (6.3-8.3) g/dL Albumin (3.5-5.0) g/dL Globulin (2.2-3.9) gm/dL Albumin/Globulin Ratio (1.0-2.1) Arterial Blood Potassium (3.6-5.2) mmol/L 10/17/17 10/17/17 Range/Units 17:57 17:02 WBC (4.8-10.8) K/uL RBC (4.40-5.90) Mil/uL Hgb (12.0-18.0) g/dL Hct (35.0-51.0) % MCV (80.0-94.0) fL MCH (27.0-31.0) pg MCHC (33.0-37.0) g/dL RDW (11.5-14.5) % Plt Count (130-400) K/uL MPV (7.2-11.7) fL Neut % (Auto) (50.0-75.0) % Lymph % (Auto) (20.0-40.0) % Morgan % (Auto) (0.0-10.0) % Eos % (Auto) (0.0-4.0) % Baso % (Auto) (0.0-2.0) % Neut # (Auto) (1.8-7.0) K/uL Lymph # (Auto) (1.0-4.3) K/uL Morgan # (Auto) (0.0-0.8) K/uL Eos # (Auto) (0.0-0.7) K/uL Baso # (Auto) (0.0-0.2) K/uL Neutrophils % (Manual) (50-75) % Band Neutrophils % (0-2) % Lymphocytes % (Manual) (20-40) % Monocytes % (Manual) (0-10) % Eosinophils % (Manual) (0-4) % Nucleated RBC % (0-0) % Differential Comment Platelet Estimate (NORMAL) Large Platelets Hypochromasia (manual) Poikilocytosis (manual Anisocytosis (manual) Target Cells Villanova Cells ESR (0-15) mm/hr Puncture Site pCO2 (35-45) mm/Hg pO2 (80-100) mm/Hg HCO3 (21-28) mmol/L ABG pH (7.35-7.45) ABG Total CO2 (22-28) mmol/L ABG O2 Saturation (95-98) % ABG Base Excess (-2.0-3.0) mmol/L ABG Hemoglobin (11.7-17.4) g/dL ABG Carboxyhemoglobin (0.5-1.5) % POC ABG HHb (Measured) (0.0-5.0) % ABG Methemoglobin (0.0-3.0) % Philippe Test ABG Potassium (3.6-5.2) mmol/L A-a O2 Difference mm/Hg Respiratory Index Hgb O2 Saturation (95.0-98.0) % Glucose (75-110) mg/dl Lactate (0.7-2.1) mmol/L Vent Mode Mechanical Rate FiO2 % Tidal Volume PEEP Crit Value Called To Crit Value Called By Crit Value Read Back Blood Gas Notified Time Sodium (132-148) mmol/L Potassium (3.6-5.2) mmol/L Chloride (98-107) mmol/L Carbon Dioxide (22-30) mmol/L Anion Gap (10-20) BUN (9-20) mg/dL Creatinine (0.8-1.5) mg/dL Est GFR ( Amer) Est GFR (Non-Af Amer) POC Glucose (mg/dL) 164 H 141 H (65-110) mg/dL Random Glucose (75-110) mg/dL Calcium (8.6-10.4) mg/dl Phosphorus (2.5-4.5) mg/dL Magnesium (1.6-2.3) mg/dL Total Bilirubin (0.2-1.3) mg/dL AST (17-59) U/L ALT (21-72) U/L Alkaline Phosphatase (38-126) U/L Lactate Dehydrogenase (313-618) U/L Total Creatine Kinase (55-170) U/L CK-MB (Mass) (0.0-3.38) ng/mL Troponin I (0.00-0.120) ng/mL C-Reactive Protein (0.0-9.9) mg/L Total Protein (6.3-8.3) g/dL Albumin (3.5-5.0) g/dL Globulin (2.2-3.9) gm/dL Albumin/Globulin Ratio (1.0-2.1) Arterial Blood Potassium (3.6-5.2) mmol/L Laboratory Results - last 24 hr 10/17/17 10/17/17 10/17/17 17:02 17:57 19:05 WBC 20.5 H RBC 4.05 L Hgb 11.3 L Hct 36.0 MCV 88.9 D MCH 28.0 MCHC 31.5 L RDW 18.2 H Plt Count 61 L MPV 11.9 H Neut % (Auto) Lymph % (Auto) Morgan % (Auto) Eos % (Auto) Baso % (Auto) Neut # (Auto) Lymph # (Auto) Morgan # (Auto) Eos # (Auto) Baso # (Auto) Neutrophils % (Manual) Band Neutrophils % Lymphocytes % (Manual) Monocytes % (Manual) Eosinophils % (Manual) Nucleated RBC % Differential Comment Platelet Estimate Large Platelets Hypochromasia (manual) Poikilocytosis (manual Anisocytosis (manual) Target Cells Villanova Cells ESR Puncture Site pCO2 pO2 HCO3 ABG pH ABG Total CO2 ABG O2 Saturation ABG Base Excess ABG Hemoglobin ABG Carboxyhemoglobin POC ABG HHb (Measured) ABG Methemoglobin Philippe Test ABG Potassium A-a O2 Difference Respiratory Index Hgb O2 Saturation Glucose Lactate Vent Mode Mechanical Rate FiO2 Tidal Volume PEEP Crit Value Called To Crit Value Called By Crit Value Read Back Blood Gas Notified Time Sodium Potassium Chloride Carbon Dioxide Anion Gap BUN Creatinine Est GFR ( Amer) Est GFR (Non-Af Amer) POC Glucose (mg/dL) 141 H 164 H Random Glucose Calcium Phosphorus Magnesium Total Bilirubin AST ALT Alkaline Phosphatase Lactate Dehydrogenase Total Creatine Kinase CK-MB (Mass) Troponin I C-Reactive Protein Total Protein Albumin Globulin Albumin/Globulin Ratio Arterial Blood Potassium 10/17/17 10/17/17 10/17/17 19:05 19:14 20:07 WBC RBC Hgb Hct MCV MCH MCHC RDW Plt Count MPV Neut % (Auto) Lymph % (Auto) Morgan % (Auto) Eos % (Auto) Baso % (Auto) Neut # (Auto) Lymph # (Auto) Morgan # (Auto) Eos # (Auto) Baso # (Auto) Neutrophils % (Manual) Band Neutrophils % Lymphocytes % (Manual) Monocytes % (Manual) Eosinophils % (Manual) Nucleated RBC % Differential Comment Platelet Estimate Large Platelets Hypochromasia (manual) Poikilocytosis (manual Anisocytosis (manual) Target Cells Josey Cells ESR Puncture Site pCO2 pO2 HCO3 ABG pH ABG Total CO2 ABG O2 Saturation ABG Base Excess ABG Hemoglobin ABG Carboxyhemoglobin POC ABG HHb (Measured) ABG Methemoglobin Philippe Test ABG Potassium A-a O2 Difference Respiratory Index Hgb O2 Saturation Glucose Lactate Vent Mode Mechanical Rate FiO2 Tidal Volume PEEP Crit Value Called To Crit Value Called By Crit Value Read Back Blood Gas Notified Time Sodium 138 Potassium 4.7 Chloride 96 L Carbon Dioxide 30 Anion Gap 17 BUN 29 H Creatinine 2.8 H Est GFR ( Amer) 29 Est GFR (Non-Af Amer) 24 POC Glucose (mg/dL) 163 H 135 H Random Glucose 161 H Calcium 8.6 Phosphorus 8.0 H Magnesium 1.9 Total Bilirubin AST ALT Alkaline Phosphatase Lactate Dehydrogenase Total Creatine Kinase CK-MB (Mass) Troponin I C-Reactive Protein Total Protein Albumin Globulin Albumin/Globulin Ratio Arterial Blood Potassium 10/17/17 10/17/17 10/17/17 20:14 21:55 23:38 WBC RBC Hgb Hct MCV MCH MCHC RDW Plt Count MPV Neut % (Auto) Lymph % (Auto) Morgan % (Auto) Eos % (Auto) Baso % (Auto) Neut # (Auto) Lymph # (Auto) Morgan # (Auto) Eos # (Auto) Baso # (Auto) Neutrophils % (Manual) Band Neutrophils % Lymphocytes % (Manual) Monocytes % (Manual) Eosinophils % (Manual) Nucleated RBC % Differential Comment Platelet Estimate Large Platelets Hypochromasia (manual) Poikilocytosis (manual Anisocytosis (manual) Target Cells Villanova Cells ESR Puncture Site Gertrude pCO2 80 H* pO2 64 L HCO3 22.3 ABG pH 7.14 L* ABG Total CO2 29.7 H ABG O2 Saturation 92.5 L ABG Base Excess -3.2 L ABG Hemoglobin 11.2 L ABG Carboxyhemoglobin 2.7 H POC ABG HHb (Measured) 7.2 H ABG Methemoglobin 0.7 Philippe Test Na ABG Potassium A-a O2 Difference 549.0 Respiratory Index 8.6 Hgb O2 Saturation 89.4 L Glucose Lactate Vent Mode Prvc Mechanical Rate 24 FiO2 100.0 Tidal Volume 500 PEEP 5 Crit Value Called To Nathen humphreys md Crit Value Called By Lendargelia Crit Value Read Back Y Blood Gas Notified Time 2157 Sodium Potassium Chloride Carbon Dioxide Anion Gap BUN Creatinine Est GFR ( Amer) Est GFR (Non-Af Amer) POC Glucose (mg/dL) 149 H Random Glucose Calcium Phosphorus Magnesium Total Bilirubin AST ALT Alkaline Phosphatase Lactate Dehydrogenase Total Creatine Kinase 113 CK-MB (Mass) 9.13 H Troponin I 0.4890 H* C-Reactive Protein Total Protein Albumin Globulin Albumin/Globulin Ratio Arterial Blood Potassium 10/18/17 10/18/17 10/18/17 05:21 05:56 06:21 WBC 20.3 H RBC 3.77 L Hgb 10.4 L Hct 33.8 L MCV 89.7 MCH 27.6 MCHC 30.8 L RDW 18.1 H Plt Count 61 L MPV 11.8 H Neut % (Auto) 84.5 H Lymph % (Auto) 4.3 L Morgan % (Auto) 10.4 H Eos % (Auto) 0.7 Baso % (Auto) 0.1 Neut # (Auto) 17.1 H Lymph # (Auto) 0.9 L Morgan # (Auto) 2.1 H Eos # (Auto) 0.2 Baso # (Auto) 0.0 Neutrophils % (Manual) 81 H Band Neutrophils % 3 H Lymphocytes % (Manual) 6 L Monocytes % (Manual) 9 Eosinophils % (Manual) 1 Nucleated RBC % 1 H Differential Comment Platelet Estimate Decreased L Large Platelets Present Hypochromasia (manual) Slight Poikilocytosis (manual Slight Anisocytosis (manual) Slight Target Cells Slight Josey Cells Slight ESR Puncture Site Gertrude pCO2 84 H* pO2 100 HCO3 21.0 ABG pH 7.10 L* ABG Total CO2 28.7 H ABG O2 Saturation 97.9 ABG Base Excess -5.0 L ABG Hemoglobin 11.7 ABG Carboxyhemoglobin 2.3 H POC ABG HHb (Measured) 2.0 ABG Methemoglobin 1.2 Philippe Test Na ABG Potassium A-a O2 Difference 508.0 Respiratory Index 5.1 Hgb O2 Saturation 94.5 L Glucose Lactate Vent Mode Prvc Mechanical Rate 26 FiO2 100.0 Tidal Volume 500 PEEP 5 Crit Value Called To Esteban rn Crit Value Called By Rissa metal machine operator Crit Value Read Back Y Blood Gas Notified Time 533 Sodium Potassium Chloride Carbon Dioxide Anion Gap BUN Creatinine Est GFR ( Amer) Est GFR (Non-Af Amer) POC Glucose (mg/dL) 175 H Random Glucose Calcium Phosphorus Magnesium Total Bilirubin AST ALT Alkaline Phosphatase Lactate Dehydrogenase Total Creatine Kinase CK-MB (Mass) Troponin I C-Reactive Protein Total Protein Albumin Globulin Albumin/Globulin Ratio Arterial Blood Potassium 10/18/17 10/18/17 10/18/17 06:21 11:44 13:18 WBC RBC Hgb Hct MCV MCH MCHC RDW Plt Count MPV Neut % (Auto) Lymph % (Auto) Morgan % (Auto) Eos % (Auto) Baso % (Auto) Neut # (Auto) Lymph # (Auto) Morgan # (Auto) Eos # (Auto) Baso # (Auto) Neutrophils % (Manual) Band Neutrophils % Lymphocytes % (Manual) Monocytes % (Manual) Eosinophils % (Manual) Nucleated RBC % Differential Comment Platelet Estimate Large Platelets Hypochromasia (manual) Poikilocytosis (manual Anisocytosis (manual) Target Cells Villanova Cells ESR Puncture Site A line pCO2 60 H pO2 84 HCO3 22.1 ABG pH 7.23 L ABG Total CO2 26.9 ABG O2 Saturation 97.4 ABG Base Excess -3.5 L ABG Hemoglobin ABG Carboxyhemoglobin POC ABG HHb (Measured) ABG Methemoglobin Philippe Test Na ABG Potassium 4.4 A-a O2 Difference 554.0 Respiratory Index 6.6 Hgb O2 Saturation Glucose 231 H Lactate 1.8 Vent Mode Prvc Mechanical Rate 30 FiO2 100.0 Tidal Volume 550 PEEP 5 Crit Value Called To Crit Value Called By Crit Value Read Back Blood Gas Notified Time Sodium 140 137.0 Potassium 5.0 Chloride 97 L 103.0 Carbon Dioxide 29 Anion Gap 18 BUN 38 H Creatinine 3.7 H Est GFR ( Amer) 21 Est GFR (Non-Af Amer) 18 POC Glucose (mg/dL) 206 H Random Glucose 195 H Calcium 8.2 L Phosphorus 10.3 H Magnesium 1.8 Total Bilirubin 2.2 H AST 67 H D ALT 56 Alkaline Phosphatase 129 H Lactate Dehydrogenase Total Creatine Kinase CK-MB (Mass) Troponin I C-Reactive Protein Total Protein 7.1 Albumin 3.6 Globulin 3.4 Albumin/Globulin Ratio 1.1 Arterial Blood Potassium 4.4 10/18/17 10/18/17 14:11 14:11 WBC RBC Hgb Hct MCV MCH MCHC RDW Plt Count MPV Neut % (Auto) Lymph % (Auto) Morgan % (Auto) Eos % (Auto) Baso % (Auto) Neut # (Auto) Lymph # (Auto) Morgan # (Auto) Eos # (Auto) Baso # (Auto) Neutrophils % (Manual) Band Neutrophils % Lymphocytes % (Manual) Monocytes % (Manual) Eosinophils % (Manual) Nucleated RBC % Differential Comment Platelet Estimate Large Platelets Hypochromasia (manual) Poikilocytosis (manual Anisocytosis (manual) Target Cells Villanova Cells ESR 95 H Puncture Site pCO2 pO2 HCO3 ABG pH ABG Total CO2 ABG O2 Saturation ABG Base Excess ABG Hemoglobin ABG Carboxyhemoglobin POC ABG HHb (Measured) ABG Methemoglobin Philippe Test ABG Potassium A-a O2 Difference Respiratory Index Hgb O2 Saturation Glucose Lactate Vent Mode Mechanical Rate FiO2 Tidal Volume PEEP Crit Value Called To Crit Value Called By Crit Value Read Back Blood Gas Notified Time Sodium Potassium Chloride Carbon Dioxide Anion Gap BUN Creatinine Est GFR ( Amer) Est GFR (Non-Af Amer) POC Glucose (mg/dL) Random Glucose Calcium Phosphorus Magnesium Total Bilirubin AST ALT Alkaline Phosphatase Lactate Dehydrogenase 1378 H Total Creatine Kinase CK-MB (Mass) Troponin I C-Reactive Protein 178.50 H Total Protein Albumin Globulin Albumin/Globulin Ratio Arterial Blood Potassium Attending/Attestation - Attestation I have personally seen and examined this patient.: Yes I have fully participated in the care of the patient.: Yes I have reviewed all pertinent clinical information: Yes Notes (Text): 10/18/17 16:52 patient seen and examined in the intensive care unit. No change in mental status On ventilator support 100% FiO2 Started on Nimbex for elevated peak airway pressure and ventilator asynchrony continue IV antibiotics Taper off pressors as tolerated Chest x-ray with pulmonary edema and possible aspiration pneumonia
--- NOTE | 2017-10-18 11:05 | CP.PCM.CON ---
History of Present Illness - History of Present Illness History of Present Illness: INFECTIOUS DISEASE CONSULT; HPI; 47-year-old male with known history of COPD, CHF,morbid obesity, lung fibrosis- awaiting transplant, history of splenectomy and IVC filter DVT who was admitted on 10/13/17 with shortness of breath for 2 days. Hospital course included CODE BLUE and intubation on the floor when patient was found pulseless on his way to the bathroom Further course noted including acute renal failure, aspiration pneumonia and recent hemodialysis with placement of left femoral triple-lumen catheter. Infectious disease consultation requested by body service team member because of increasing WBC count of 20.3 and patient downhill course. Patient presently on 3 vasopressors, unresponsive on ventilator with positive troponins. PATIENT HAS BEEN ON BROAD-SPECTRUM ANTIBIOTICS INCLUDING zOSYN, VIBRAMYCIN AND VANCOMYCIN 1 G DOSE GIVEN 10/18/17. HISTORY OBTAINED MAINLY FROM THE CHART/ AND STAFF PATIENT INTUBATED AND UNRESPONSIVE. CHEST X-RAY ON 10/18/17 CONSISTENT WITH HETEROGENEOUS DIFFUSE LEFT-SIDED OPACITY WITHOUT INTERVAL CHANGE WITH SOME IMPROVEMENT IN AERATION SEEN AT RIGHT HEMITHORAX WITH LIMITED PATCHY INFILTRATE AT RIGHT BASE. CT OF THE HEAD ON 10/15/17 CONSISTENT WITH CHRONIC PANSINUSITIS WITH AIR FLUID LEVELS BILATERAL MAXILLARY ANTRUM AND BILATERAL MASTOID EFFUSIONS. PATIENT WITH MULTIPLE LINES AND REMAINS INTUBATED PRESENTLY.. 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 Hx: single, lives at home, unemployed Fam. HxL Uncle with kidney issues, on HD. ALLERGY; EGGS Review of Systems - Review of Systems Systems not reviewed;Unavailable: Other (INTUBATED ON VENTILATOR.) Past Patient History - Infectious Disease Hx of Infectious Diseases: None - Past Medical History & Family History Past Medical History?: Yes Past Family History: Reviewed and not pertinent - Past Social History Smoking Status: Former Smoker Chewing Tobacco Use: No Cigar Use: No Alcohol: None Drugs: Denies Home Situation {Lives}: With Family - CARDIAC Hx Congestive Heart Failure: Yes Hx Hypertension: Yes - PULMONARY Hx Asthma: Yes Hx Chronic Obstructive Pulmonary Disease (COPD): Yes Hx Pneumonia: Yes - NEUROLOGICAL Hx Neurological Disorder: Yes - HEENT Hx HEENT Problems: No - RENAL Hx Chronic Kidney Disease: Yes - ENDOCRINE/METABOLIC Hx Endocrine Disorders: Yes Hx Diabetes Mellitus Type 2: Yes - HEMATOLOGICAL/ONCOLOGICAL Hx Blood Disorders: Yes Other/Comment: Right LE DVT - INTEGUMENTARY Hx Dermatological Problems: Yes Hx Cellulitis: Yes - MUSCULOSKELETAL/RHEUMATOLOGICAL Hx Arthritis: Yes - GASTROINTESTINAL Hx Gastrointestinal Disorders: No - GENITOURINARY/GYNECOLOGICAL Hx Genitourinary Disorders: No - PSYCHIATRIC Hx Anxiety: No Hx Substance Use: No - SURGICAL HISTORY Hx Surgeries: Yes Hx Splenectomy: Yes Other/Comment: IVC Filter placement - ANESTHESIA Hx Anesthesia: Yes Hx Anesthesia Reactions: No Hx Malignant Hyperthermia: No Meds Allergies/Adverse Reactions: Allergies Allergy/AdvReac Type Severity Reaction Status Date / Time EGG Allergy Intermediate RASH Verified 10/13/17 08:14 - Medications Medications: Current Medications Albuterol/Ipratropium (Duoneb 3 Mg/0.5 Mg (3 Ml) Ud) 3 ml INH RQ6 ANABELLA Last Admin: 10/18/17 07:39 Dose: 3 ml Artificial Tears (Lacri-Lube) 0 gm OU Q4 ANABELLA Dextrose (Dextrose 50% Inj) 0 ml IV STAT PRN; Protocol PRN Reason: Hypoglycemia Protocol Dextrose (Glutose 15) 0 gm PO ONCE PRN; Protocol PRN Reason: Hypoglycemia Protocol Dextrose (Dextrose 50% Inj) 0 ml IV STAT PRN; Protocol PRN Reason: Hypoglycemia Protocol Dextrose (Glutose 15) 0 gm PO ONCE PRN; Protocol PRN Reason: Hypoglycemia Protocol Glucagon (Glucagen Diagnostic Kit) 0 mg IM STAT PRN; Protocol PRN Reason: Hypoglycemia Protocol Glucagon (Glucagen Diagnostic Kit) 0 mg IM STAT PRN; Protocol PRN Reason: Hypoglycemia Protocol Dextrose (Dextrose 5% In Water 1000 Ml) 1,000 mls @ 0 mls/hr IV .Q0M PRN; Protocol; Per Protocol PRN Reason: Hypoglycemia Protocol Doxycycline Hyclate 100 mg/ (Sodium Chloride) 100 mls @ 100 mls/hr IVPB Q12H ANABELLA PRN Reason: Protocol Last Admin: 10/18/17 05:01 Dose: 100 mls/hr Piperacillin Sod/Tazobactam Sod (Zosyn 2.25 Gm Iv Premix) 2.25 gm in 50 mls @ 100 mls/hr IVPB Q6H ANABELLA PRN Reason: Protocol Last Admin: 10/18/17 04:30 Dose: 100 mls/hr Dextrose (Dextrose 5% In Water 1000 Ml) 1,000 mls @ 0 mls/hr IV .Q0M PRN; Protocol; Per Protocol PRN Reason: Hypoglycemia Protocol Vasopressin 40 units/ Sodium (Chloride) 40 mls @ 0.6 mls/hr IV .Q24H ANABELLA; 0.01 UNITS/MIN PRN Reason: Protocol Last Admin: 10/18/17 02:28 Dose: 0.04 units/min, 2.4 mls/hr Norepinephrine Bitartrate 16 (mg/ Sodium Chloride) 500 mls @ 7.5 mls/hr IV .Q24H PRN; Protocol; 4 MCG/MIN PRN Reason: TITRATE PER MD ORDER Last Titration: 10/18/17 09:00 Dose: 16 mcg/min, 30 mls/hr Phenylephrine HCl 60 mg/ (Sodium Chloride) 500 mls @ 10 mls/hr IV .Q24H PRN; Protocol; 20 MCG/MIN PRN Reason: TITRATE PER MD ORDER Last Admin: 10/18/17 06:17 Dose: 150 mcg/min, 75 mls/hr Insulin Human Regular (Novolin R) 0 unit SC Q6H ANABELLA PRN Reason: Protocol Last Admin: 10/18/17 06:14 Dose: 2 units Lorazepam (Ativan) 1 mg IVP Q4H PRN PRN Reason: Agitation Last Admin: 10/17/17 22:15 Dose: 1 mg Pantoprazole Sodium (Protonix Inj) 40 mg IVP Q12H [facility] Last Admin: 10/18/17 01:16 Dose: 40 mg Rosuvastatin Calcium (Crestor) 20 mg PO HS [facility] Last Admin: 10/17/17 21:18 Dose: 20 mg Sodium Bicarbonate (Sodium Bicarbonate Tab) 650 mg PO TID [facility] Last Admin: 10/17/17 18:05 Dose: 650 mg Physical Exam - Constitutional Appears: No Acute Distress - Head Exam Head Exam: NORMOCEPHALIC - Eye Exam Eye Exam: PERRL - ENT Exam ENT Exam: Mucous Membranes Moist - Neck Exam Neck exam: Positive for: Normal Inspection. Negative for: Thyromegaly - Respiratory Exam Respiratory Exam: Rales, Rhonchi - Cardiovascular Exam Cardiovascular Exam: Tachycardia, REGULAR RHYTHM, +S1, +S2 - GI/Abdominal Exam GI & Abdominal Exam: Normal Bowel Sounds, Soft. absent: Organomegaly - Extremities Exam Extremities exam: Positive for: pedal edema, pedal pulses present. Negative for : calf tenderness - Neurological Exam Neurological exam: Altered - Psychiatric Exam Psychiatric exam: Flat Affect - Skin Skin Exam: Dry, Warm Results - Vital Signs Recent Vital Signs: Last Vital Signs Temp 98.5 F 10/18/17 04:00 Pulse 105 H 10/18/17 06:02 Resp 25 H 10/18/17 04:27 BP 84/50 L 10/18/17 06:17 Pulse Ox 99 10/18/17 06:02 - Labs Result Diagrams: 10/18/17 06:21 10/18/17 06:21 Labs: Laboratory Results - last 24 hr 10/17/17 10/17/17 10/17/17 11:04 11:47 11:47 WBC RBC Hgb Hct MCV MCH MCHC RDW Plt Count MPV Neut % (Auto) Lymph % (Auto) [place] % (Auto) Eos % (Auto) Baso % (Auto) Neut # (Auto) Lymph # (Auto) [place] # (Auto) Eos # (Auto) Baso # (Auto) Neutrophils % (Manual) Band Neutrophils % Lymphocytes % (Manual) Monocytes % (Manual) Eosinophils % (Manual) Basophils % (Manual) Nucleated RBC % Differential Comment Platelet Estimate Large Platelets Hypochromasia (manual) Poikilocytosis (manual Anisocytosis (manual) Microcytosis (manual) Target Cells [place] Cells Fibrinogen 684 H Fibrin Degrad Products Positive H Fibrin Degrad Prod, Qt >40 H Puncture Site pCO2 pO2 HCO3 ABG pH ABG Total CO2 ABG O2 Saturation ABG Base Excess ABG Hemoglobin ABG Carboxyhemoglobin POC ABG HHb (Measured) ABG Methemoglobin Philippe Test A-a O2 Difference Respiratory Index Hgb O2 Saturation Vent Mode Mechanical Rate FiO2 Tidal Volume PEEP Crit Value Called To Crit Value Called By Crit Value Read Back Blood Gas Notified Time Sodium Potassium Chloride Carbon Dioxide Anion Gap BUN Creatinine Est GFR ( Amer) Est GFR (Non-Af Amer) POC Glucose (mg/dL) 237 H Random Glucose Calcium Phosphorus Magnesium Total Bilirubin AST ALT Alkaline Phosphatase Total Creatine Kinase CK-MB (Mass) Troponin I Total Protein Albumin Globulin Albumin/Globulin Ratio Procalcitonin 23.43 H 10/17/17 10/17/17 10/17/17 11:47 11:47 12:02 WBC 17.2 H RBC 4.02 L Hgb 11.2 L Hct 35.0 MCV 86.9 MCH 27.8 MCHC 32.0 L RDW 18.0 H Plt Count 47 L MPV 11.0 Neut % (Auto) 93.7 H Lymph % (Auto) 1.7 L [place] % (Auto) 2.8 Eos % (Auto) 1.7 Baso % (Auto) 0.1 Neut # (Auto) 16.1 H Lymph # (Auto) 0.3 L [place] # (Auto) 0.5 Eos # (Auto) 0.3 Baso # (Auto) 0.0 Neutrophils % (Manual) 90 H Band Neutrophils % Lymphocytes % (Manual) 3 L Monocytes % (Manual) 1 Eosinophils % (Manual) 5 H Basophils % (Manual) 1 Nucleated RBC % 2 H Differential Comment Platelet Estimate Decreased L Large Platelets Present Hypochromasia (manual) Slight Poikilocytosis (manual Slight Anisocytosis (manual) Slight Microcytosis (manual) Slight Target Cells Slight [place] Cells Slight Fibrinogen Fibrin Degrad Products Fibrin Degrad Prod, Qt Puncture Site pCO2 pO2 HCO3 ABG pH ABG Total CO2 ABG O2 Saturation ABG Base Excess ABG Hemoglobin ABG Carboxyhemoglobin POC ABG HHb (Measured) ABG Methemoglobin Philippe Test A-a O2 Difference Respiratory Index Hgb O2 Saturation Vent Mode Mechanical Rate FiO2 Tidal Volume PEEP Crit Value Called To Crit Value Called By Crit Value Read Back Blood Gas Notified Time Sodium 139 Potassium 3.7 Chloride 96 L Carbon Dioxide 32 H Anion Gap 15 BUN 34 H Creatinine 2.4 H Est GFR ( Amer) 35 Est GFR (Non-Af Amer) 29 POC Glucose (mg/dL) 201 H Random Glucose 231 H Calcium 8.2 L Phosphorus 5.7 H Magnesium 1.8 Total Bilirubin 2.1 H AST 25 ALT 26 Alkaline Phosphatase 138 H Total Creatine Kinase CK-MB (Mass) Troponin I Total Protein 6.8 Albumin 3.4 L Globulin 3.4 Albumin/Globulin Ratio 1.0 Procalcitonin 10/17/17 10/17/17 10/17/17 14:13 15:40 16:13 WBC RBC Hgb Hct MCV MCH MCHC RDW Plt Count MPV Neut % (Auto) Lymph % (Auto) [place] % (Auto) Eos % (Auto) Baso % (Auto) Neut # (Auto) Lymph # (Auto) [place] # (Auto) Eos # (Auto) Baso # (Auto) Neutrophils % (Manual) Band Neutrophils % Lymphocytes % (Manual) Monocytes % (Manual) Eosinophils % (Manual) Basophils % (Manual) Nucleated RBC % Differential Comment Platelet Estimate Large Platelets Hypochromasia (manual) Poikilocytosis (manual Anisocytosis (manual) Microcytosis (manual) Target Cells [place] Cells Fibrinogen Fibrin Degrad Products Fibrin Degrad Prod, Qt Puncture Site pCO2 pO2 HCO3 ABG pH ABG Total CO2 ABG O2 Saturation ABG Base Excess ABG Hemoglobin ABG Carboxyhemoglobin POC ABG HHb (Measured) ABG Methemoglobin Philippe Test A-a O2 Difference Respiratory Index Hgb O2 Saturation Vent Mode Mechanical Rate FiO2 Tidal Volume PEEP Crit Value Called To Crit Value Called By Crit Value Read Back Blood Gas Notified Time Sodium Potassium Chloride Carbon Dioxide Anion Gap BUN Creatinine Est GFR ( Amer) Est GFR (Non-Af Amer) POC Glucose (mg/dL) 138 H 151 H 140 H Random Glucose Calcium Phosphorus Magnesium Total Bilirubin AST ALT Alkaline Phosphatase Total Creatine Kinase CK-MB (Mass) Troponin I Total Protein Albumin Globulin Albumin/Globulin Ratio Procalcitonin 10/17/17 10/17/17 10/17/17 17:02 17:57 19:05 WBC 20.5 H RBC 4.05 L Hgb 11.3 L Hct 36.0 MCV 88.9 D MCH 28.0 MCHC 31.5 L RDW 18.2 H Plt Count 61 L MPV 11.9 H Neut % (Auto) Lymph % (Auto) [place] % (Auto) Eos % (Auto) Baso % (Auto) Neut # (Auto) Lymph # (Auto) [place] # (Auto) Eos # (Auto) Baso # (Auto) Neutrophils % (Manual) Band Neutrophils % Lymphocytes % (Manual) Monocytes % (Manual) Eosinophils % (Manual) Basophils % (Manual) Nucleated RBC % Differential Comment Platelet Estimate Large Platelets Hypochromasia (manual) Poikilocytosis (manual Anisocytosis (manual) Microcytosis (manual) Target Cells [place] Cells Fibrinogen Fibrin Degrad Products Fibrin Degrad Prod, Qt Puncture Site pCO2 pO2 HCO3 ABG pH ABG Total CO2 ABG O2 Saturation ABG Base Excess ABG Hemoglobin ABG Carboxyhemoglobin POC ABG HHb (Measured) ABG Methemoglobin Philippe Test A-a O2 Difference Respiratory Index Hgb O2 Saturation Vent Mode Mechanical Rate FiO2 Tidal Volume PEEP Crit Value Called To Crit Value Called By Crit Value Read Back Blood Gas Notified Time Sodium Potassium Chloride Carbon Dioxide Anion Gap BUN Creatinine Est GFR ( Amer) Est GFR (Non-Af Amer) POC Glucose (mg/dL) 141 H 164 H Random Glucose Calcium Phosphorus Magnesium Total Bilirubin AST ALT Alkaline Phosphatase Total Creatine Kinase CK-MB (Mass) Troponin I Total Protein Albumin Globulin Albumin/Globulin Ratio Procalcitonin 10/17/17 10/17/17 10/17/17 19:05 19:14 20:07 WBC RBC Hgb Hct MCV MCH MCHC RDW Plt Count MPV Neut % (Auto) Lymph % (Auto) [place] % (Auto) Eos % (Auto) Baso % (Auto) Neut # (Auto) Lymph # (Auto) [place] # (Auto) Eos # (Auto) Baso # (Auto) Neutrophils % (Manual) Band Neutrophils % Lymphocytes % (Manual) Monocytes % (Manual) Eosinophils % (Manual) Basophils % (Manual) Nucleated RBC % Differential Comment Platelet Estimate Large Platelets Hypochromasia (manual) Poikilocytosis (manual Anisocytosis (manual) Microcytosis (manual) Target Cells [place] Cells Fibrinogen Fibrin Degrad Products Fibrin Degrad Prod, Qt Puncture Site pCO2 pO2 HCO3 ABG pH ABG Total CO2 ABG O2 Saturation ABG Base Excess ABG Hemoglobin ABG Carboxyhemoglobin POC ABG HHb (Measured) ABG Methemoglobin Philippe Test A-a O2 Difference Respiratory Index Hgb O2 Saturation Vent Mode Mechanical Rate FiO2 Tidal Volume PEEP Crit Value Called To Crit Value Called By Crit Value Read Back Blood Gas Notified Time Sodium 138 Potassium 4.7 Chloride 96 L Carbon Dioxide 30 Anion Gap 17 BUN 29 H Creatinine 2.8 H Est GFR ( Amer) 29 Est GFR (Non-Af Amer) 24 POC Glucose (mg/dL) 163 H 135 H Random Glucose 161 H Calcium 8.6 Phosphorus 8.0 H Magnesium 1.9 Total Bilirubin AST ALT Alkaline Phosphatase Total Creatine Kinase CK-MB (Mass) Troponin I Total Protein Albumin Globulin Albumin/Globulin Ratio Procalcitonin 10/17/17 10/17/17 10/17/17 20:14 21:55 23:38 WBC RBC Hgb Hct MCV MCH MCHC RDW Plt Count MPV Neut % (Auto) Lymph % (Auto) [place] % (Auto) Eos % (Auto) Baso % (Auto) Neut # (Auto) Lymph # (Auto) [place] # (Auto) Eos # (Auto) Baso # (Auto) Neutrophils % (Manual) Band Neutrophils % Lymphocytes % (Manual) Monocytes % (Manual) Eosinophils % (Manual) Basophils % (Manual) Nucleated RBC % Differential Comment Platelet Estimate Large Platelets Hypochromasia (manual) Poikilocytosis (manual Anisocytosis (manual) Microcytosis (manual) Target Cells [place] Cells Fibrinogen Fibrin Degrad Products Fibrin Degrad Prod, Qt Puncture Site Gertrude pCO2 80 H* pO2 64 L HCO3 22.3 ABG pH 7.14 L* ABG Total CO2 29.7 H ABG O2 Saturation 92.5 L ABG Base Excess -3.2 L ABG Hemoglobin 11.2 L ABG Carboxyhemoglobin 2.7 H POC ABG HHb (Measured) 7.2 H ABG Methemoglobin 0.7 Philippe Test Na A-a O2 Difference 549.0 Respiratory Index 8.6 Hgb O2 Saturation 89.4 L Vent Mode Prvc Mechanical Rate 24 FiO2 100.0 Tidal Volume 500 PEEP 5 Crit Value Called To Nathen humphreys md Crit Value Called By Keon Crit Value Read Back Y Blood Gas Notified Time 7341 Sodium Potassium Chloride Carbon Dioxide Anion Gap BUN Creatinine Est GFR ( Amer) Est GFR (Non-Af Amer) POC Glucose (mg/dL) 149 H Random Glucose Calcium Phosphorus Magnesium Total Bilirubin AST ALT Alkaline Phosphatase Total Creatine Kinase 113 CK-MB (Mass) 9.13 H Troponin I 0.4890 H* Total Protein Albumin Globulin Albumin/Globulin Ratio Procalcitonin 10/18/17 10/18/17 10/18/17 05:21 05:56 06:21 WBC 20.3 H RBC 3.77 L Hgb 10.4 L Hct 33.8 L MCV 89.7 MCH 27.6 MCHC 30.8 L RDW 18.1 H Plt Count 61 L MPV 11.8 H Neut % (Auto) 84.5 H Lymph % (Auto) 4.3 L [place] % (Auto) 10.4 H Eos % (Auto) 0.7 Baso % (Auto) 0.1 Neut # (Auto) 17.1 H Lymph # (Auto) 0.9 L [place] # (Auto) 2.1 H Eos # (Auto) 0.2 Baso # (Auto) 0.0 Neutrophils % (Manual) 81 H Band Neutrophils % 3 H Lymphocytes % (Manual) 6 L Monocytes % (Manual) 9 Eosinophils % (Manual) 1 Basophils % (Manual) Nucleated RBC % 1 H Differential Comment Platelet Estimate Decreased L Large Platelets Present Hypochromasia (manual) Slight Poikilocytosis (manual Slight Anisocytosis (manual) Slight Microcytosis (manual) Target Cells Slight [place] Cells Slight Fibrinogen Fibrin Degrad Products Fibrin Degrad Prod, Qt Puncture Site Gertrude pCO2 84 H* pO2 100 HCO3 21.0 ABG pH 7.10 L* ABG Total CO2 28.7 H ABG O2 Saturation 97.9 ABG Base Excess -5.0 L ABG Hemoglobin 11.7 ABG Carboxyhemoglobin 2.3 H POC ABG HHb (Measured) 2.0 ABG Methemoglobin 1.2 Philippe Test Na A-a O2 Difference 508.0 Respiratory Index 5.1 Hgb O2 Saturation 94.5 L Vent Mode Prvc Mechanical Rate 26 FiO2 100.0 Tidal Volume 500 PEEP 5 Crit Value Called To Esteban rn Crit Value Called By Rissa lottery manager Crit Value Read Back Y Blood Gas Notified Time 533 Sodium Potassium Chloride Carbon Dioxide Anion Gap BUN Creatinine Est GFR ( Amer) Est GFR (Non-Af Amer) POC Glucose (mg/dL) 175 H Random Glucose Calcium Phosphorus Magnesium Total Bilirubin AST ALT Alkaline Phosphatase Total Creatine Kinase CK-MB (Mass) Troponin I Total Protein Albumin Globulin Albumin/Globulin Ratio Procalcitonin 10/18/17 06:21 WBC RBC Hgb Hct MCV MCH MCHC RDW Plt Count MPV Neut % (Auto) Lymph % (Auto) [place] % (Auto) Eos % (Auto) Baso % (Auto) Neut # (Auto) Lymph # (Auto) [place] # (Auto) Eos # (Auto) Baso # (Auto) Neutrophils % (Manual) Band Neutrophils % Lymphocytes % (Manual) Monocytes % (Manual) Eosinophils % (Manual) Basophils % (Manual) Nucleated RBC % Differential Comment Platelet Estimate Large Platelets Hypochromasia (manual) Poikilocytosis (manual Anisocytosis (manual) Microcytosis (manual) Target Cells [place] Cells Fibrinogen Fibrin Degrad Products Fibrin Degrad Prod, Qt Puncture Site pCO2 pO2 HCO3 ABG pH ABG Total CO2 ABG O2 Saturation ABG Base Excess ABG Hemoglobin ABG Carboxyhemoglobin POC ABG HHb (Measured) ABG Methemoglobin Philippe Test A-a O2 Difference Respiratory Index Hgb O2 Saturation Vent Mode Mechanical Rate FiO2 Tidal Volume PEEP Crit Value Called To Crit Value Called By Crit Value Read Back Blood Gas Notified Time Sodium 140 Potassium 5.0 Chloride 97 L Carbon Dioxide 29 Anion Gap 18 BUN 38 H Creatinine 3.7 H Est GFR ( Amer) 21 Est GFR (Non-Af Amer) 18 POC Glucose (mg/dL) Random Glucose 195 H Calcium 8.2 L Phosphorus 10.3 H Magnesium 1.8 Total Bilirubin 2.2 H AST 67 H D ALT 56 Alkaline Phosphatase 129 H Total Creatine Kinase CK-MB (Mass) Troponin I Total Protein 7.1 Albumin 3.6 Globulin 3.4 Albumin/Globulin Ratio 1.1 Procalcitonin - Imaging and Cardiology Chest x-ray Status: Report reviewed by me Assessment & Plan (1) Multiorgan failure Status: Acute (2) Septic shock Status: Acute (3) Acute on chronic renal failure Status: Acute (4) Anoxic encephalopathy Status: Acute (5) Nephrotic syndrome Status: Acute (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 PANCULTURES sPUTUM gRAM STAIN AND CULTURE TRACHEAL ASPIRATE ESR,,CRP LDH. PRO-CALCITONIN. ATYPICAL TITERS DC IV ZOSYN . START iv MERREM 500 MG EVERY 8 HOURLY 10/17/17 CONTINUE VIBRAMYCIN 100 MG EVERY 12 HOURLY 10/15/17 CONTINUE iv VANCOMYCIN 1 G DOSE iv PIGGYBACK GIVEN 10/18/17 PER RN. FOLLOW-UP VANCO RANDOM LEVEL IN AM AND KEEP BETWEEN 10 AND 20 AND RELOAD 1 G POST HEMODIALYSIS IF LEVEL LESS THAN 10. PATIENT'S PROGNOSIS GRAVE,ESPECIALLY IF CONFIRMED ANOXIC ENCEPHALOPATHY. PALLIATIVE CARE ON BOARD WITH DISCUSSIONS WITH FAMILY.
--- NOTE | 2017-10-18 12:29 | CP.PCM.PN ---
Subjective - Date & Time of Evaluation Date of Evaluation: 10/18/17 Time of Evaluation: 12:27 - Subjective Subjective: s/p dialysis 10/17 s/p arrest on 3 pressors now still not responsive/on vent phos increased Objective - Vital Signs/Intake and Output Vital Signs (last 24 hours): Temp Pulse Resp BP Pulse Ox 98.5 F 100 H 30 H 128/65 94 L 10/18/17 04:00 10/18/17 11:33 10/18/17 11:33 10/18/17 11:33 10/18/17 11:33 Intake and Output: 10/18/17 10/18/17 06:59 18:59 Intake Total 2850.1 530 Output Total 0 Balance 2850.1 530 - Medications Medications: Current Medications Albuterol/Ipratropium (Duoneb 3 Mg/0.5 Mg (3 Ml) Ud) 3 ml INH RQ6 ANABELLA Last Admin: 10/18/17 07:39 Dose: 3 ml Artificial Tears (Lacri-Lube) 0 gm OU Q4 ANABELLA Calcium Acetate (Phoslo) 667 mg GT TID ANABELLA Dextrose (Dextrose 50% Inj) 0 ml IV STAT PRN; Protocol PRN Reason: Hypoglycemia Protocol Dextrose (Glutose 15) 0 gm PO ONCE PRN; Protocol PRN Reason: Hypoglycemia Protocol Dextrose (Dextrose 50% Inj) 0 ml IV STAT PRN; Protocol PRN Reason: Hypoglycemia Protocol Dextrose (Glutose 15) 0 gm PO ONCE PRN; Protocol PRN Reason: Hypoglycemia Protocol Glucagon (Glucagen Diagnostic Kit) 0 mg IM STAT PRN; Protocol PRN Reason: Hypoglycemia Protocol Glucagon (Glucagen Diagnostic Kit) 0 mg IM STAT PRN; Protocol PRN Reason: Hypoglycemia Protocol Dextrose (Dextrose 5% In Water 1000 Ml) 1,000 mls @ 0 mls/hr IV .Q0M PRN; Protocol; Per Protocol PRN Reason: Hypoglycemia Protocol Doxycycline Hyclate 100 mg/ (Sodium Chloride) 100 mls @ 100 mls/hr IVPB Q12H ANABELLA PRN Reason: Protocol Last Admin: 10/18/17 05:01 Dose: 100 mls/hr Dextrose (Dextrose 5% In Water 1000 Ml) 1,000 mls @ 0 mls/hr IV .Q0M PRN; Protocol; Per Protocol PRN Reason: Hypoglycemia Protocol Vasopressin 40 units/ Sodium (Chloride) 40 mls @ 0.6 mls/hr IV .Q24H ANABELLA; 0.01 UNITS/MIN PRN Reason: Protocol Last Titration: 10/18/17 10:00 Dose: 0.02 units/min, 1.2 mls/hr Norepinephrine Bitartrate 16 (mg/ Sodium Chloride) 500 mls @ 7.5 mls/hr IV .Q24H PRN; Protocol; 4 MCG/MIN PRN Reason: TITRATE PER MD ORDER Last Titration: 10/18/17 09:00 Dose: 16 mcg/min, 30 mls/hr Phenylephrine HCl 60 mg/ (Sodium Chloride) 500 mls @ 10 mls/hr IV .Q24H PRN; Protocol; 20 MCG/MIN PRN Reason: TITRATE PER MD ORDER Last Titration: 10/18/17 11:52 Dose: 100 mcg/min, 50 mls/hr Meropenem 500 mg/ Sodium (Chloride) 100 mls @ 100 mls/hr IVPB Q8H ANABELLA PRN Reason: Protocol Cisatracurium Besylate 100 mg/ (Dextrose) 250 mls @ 66.28 mls/hr IV .Q3H47M ANABELLA ; 3 MCG/KG/MIN PRN Reason: Protocol Dexmedetomidine HCl 200 mcg/ (Sodium Chloride) 50 mls @ 7.36 mls/hr IV TITR PRN ; Protocol; 0.2 MCG/KG/HR PRN Reason: Sedation Insulin Human Regular (Novolin R) 0 unit SC Q6H ANABELLA PRN Reason: Protocol Last Admin: 10/18/17 06:14 Dose: 2 units Lorazepam (Ativan) 1 mg IVP Q4H PRN PRN Reason: Agitation Last Admin: 10/17/17 22:15 Dose: 1 mg Pantoprazole Sodium (Protonix Inj) 40 mg IVP Q12H ANABELLA Last Admin: 10/18/17 01:16 Dose: 40 mg Rosuvastatin Calcium (Crestor) 20 mg PO HS ANABELLA Last Admin: 10/17/17 21:18 Dose: 20 mg Sodium Bicarbonate (Sodium Bicarbonate Tab) 650 mg PO TID ANABELLA Last Admin: 10/18/17 10:50 Dose: 650 mg - Labs Labs: 10/18/17 06:21 10/18/17 06:21 PT 16.6 SECONDS (9.7-12.2) H 10/17/17 03:04 INR 1.5 10/17/17 03:04 APTT 67 SECONDS (21-34) H D 10/17/17 03:04 - Constitutional Appears: In Acute Distress, Chronically Ill - Head Exam Head Exam: ATRAUMATIC, NORMAL INSPECTION - Neck Exam Neck Exam: Normal Inspection. absent: Tenderness - Respiratory Exam Respiratory Exam: Rhonchi, Respiratory Distress - Cardiovascular Exam Cardiovascular Exam: REGULAR RHYTHM, +S1 - GI/Abdominal Exam GI & Abdominal Exam: Distended, Soft - Extremities Exam Extremities Exam: Normal Inspection. absent: Pedal Edema - Neurological Exam Neurological Exam: Altered - Skin Skin Exam: Dry, Warm Assessment and Plan (1) COPD exacerbation Status: Acute (2) Type 2 diabetes mellitus with diabetic nephropathy Status: Acute (3) CHF (congestive heart failure) Status: Acute (4) Nephrotic syndrome Status: Acute (5) CO2 retention Status: Acute (6) HTN (hypertension) Status: Chronic (7) HENRIQUE (acute kidney injury) Status: Acute (8) Anoxic encephalopathy Status: Acute - Assessment and Plan (Free Text) Plan: continue dialysis TTS; decrease UF goal as BP has decreased pressor support add ca acetate phos binders vent management monitor mental status
[2017-10-18] MEDS: Dexmedetomidine Hydrochloride 200 MCG in Sodium Chloride 0.9% 48 ML IV PRN ×2 (12:50→17:46)
[2017-10-18] MEDS: Cisatracurium Besylate 100 MG in Dextrose 5% In Water 240 ML IV SCH ×2 (12:50→16:31)
--- NOTE | 2017-10-18 13:00 | PN ---
Copied To: Keagan Schmidt MD Attending MD: Keagan Schmidt MD DATE: 10/18/2017 NEUROLOGICAL PROBLEM: Anoxic encephalopathy. PHYSICAL EXAMINATION: VITAL SIGNS: Blood pressure 106/43 with mean arterial pressure of 78 with a pulse rate of 105. The patient is afebrile. The patient is not on sedation. The patient is on three pressors. The patient is examined in the presence of his family members including his . The patient has a spontaneous blinking and corneal reflexes are present on the right side, which is new to me today. Rest of the examinations are unchanged, areflexic. Plantars are upgoing on both sides. Both legs are externally rotated. The current situation of anoxic encephalopathy and the clinical prognosis been well discussed with the family members of irreversible damage of his intracranial insult at present. The patient is recommended to have a CT of the head without contrast to see the radiological evidence of his worsening his neuro status. EEG should be repeated to rule out any nonconvulsive status. The patient's condition has been discussed with his RN and resident extensively including all family members. Keagan Schmidt MD
[2017-10-18] MEDS: Meropenem 500 MG in Sodium Chloride 0.9% 100 ML IVPB SCH ×2 (13:20→20:36)
[2017-10-18 13:22] LABS: ARTERIAL BLOOD GAS HCO3 22.1 mmol/L (21-28); ARTERIAL BLOOD GAS O2 SAT 97.4 % (95-98); ARTERIAL BLOOD GAS PCO2 60 mm/Hg (35-45); ARTERIAL BLOOD GAS PH 7.23 (7.35-7.45); ARTERIAL BLOOD GAS PO2 84 mm/Hg (80-100); ARTERIAL BLOOD GAS TCO2 26.9 mmol/L (22-28)
[2017-10-18] MEDS: White Petrolatum/Mineral Oil Ophth Oint(3.5 gm) OU SCH ×2 (16:14→20:40)
[2017-10-18] MEDS ORDERED: levETIRAcetam 1,000 MG in Sodium Chloride 0.9% 100 ML IVPB STA (16:23)
[2017-10-18 20:26] LABS: LEGIONELLA AG URINE NEGATIVE (NEGATIVE)
[2017-10-18] MEDS: DEXTROSE 5% IV SCH (20:34)
[2017-10-18] MEDS: CISATRACURIUM BESYLATE IV SCH (20:34)
[2017-10-18] MEDS: WATER IV SCH (20:34)
[2017-10-18 21:35] LABS: MYCOPLASMA PNEUMONIAE IGM NEGATIVE (NEGATIVE)
--- NOTE | 2017-10-18 23:47 | CP.PCM.PN ---
Subjective - Date & Time of Evaluation Date of Evaluation: 10/18/17 Time of Evaluation: 23:47 Objective - Vital Signs/Intake and Output Vital Signs (last 24 hours): Temp Pulse Resp BP Pulse Ox 99.5 F 106 H 30 H 127/74 100 10/18/17 20:00 10/18/17 21:32 10/18/17 21:03 10/18/17 21:32 10/18/17 21:32 Intake and Output: 10/18/17 10/19/17 18:59 06:59 Intake Total 3298.5 384.4 Output Total 8 Balance 3290.5 384.4 - Medications Medications: Current Medications Albuterol/Ipratropium (Duoneb 3 Mg/0.5 Mg (3 Ml) Ud) 3 ml INH RQ6 ANABELLA Last Admin: 10/18/17 19:01 Dose: 3 ml Artificial Tears (Lacri-Lube) 0 gm OU Q4 ANABELLA Last Admin: 10/18/17 20:40 Dose: 3.5 gm Calcium Acetate (Phoslo) 667 mg GT TID ANABELLA Last Admin: 10/18/17 17:22 Dose: 667 mg Dextrose (Dextrose 50% Inj) 0 ml IV STAT PRN; Protocol PRN Reason: Hypoglycemia Protocol Dextrose (Glutose 15) 0 gm PO ONCE PRN; Protocol PRN Reason: Hypoglycemia Protocol Dextrose (Dextrose 50% Inj) 0 ml IV STAT PRN; Protocol PRN Reason: Hypoglycemia Protocol Dextrose (Glutose 15) 0 gm PO ONCE PRN; Protocol PRN Reason: Hypoglycemia Protocol Glucagon (Glucagen Diagnostic Kit) 0 mg IM STAT PRN; Protocol PRN Reason: Hypoglycemia Protocol Glucagon (Glucagen Diagnostic Kit) 0 mg IM STAT PRN; Protocol PRN Reason: Hypoglycemia Protocol Doxycycline Hyclate 100 mg/ (Sodium Chloride) 100 mls @ 100 mls/hr IVPB Q12H ANABELLA PRN Reason: Protocol Last Admin: 10/18/17 17:24 Dose: 100 mls/hr Dextrose (Dextrose 5% In Water 1000 Ml) 1,000 mls @ 0 mls/hr IV .Q0M PRN; Protocol; Per Protocol PRN Reason: Hypoglycemia Protocol Vasopressin 40 units/ Sodium (Chloride) 40 mls @ 0.6 mls/hr IV .Q24H ANABELLA; 0.01 UNITS/MIN PRN Reason: Protocol Last Titration: 10/18/17 16:00 Dose: 0 units/min, 0 mls/hr Norepinephrine Bitartrate 16 (mg/ Sodium Chloride) 500 mls @ 7.5 mls/hr IV .Q24H PRN; Protocol; 4 MCG/MIN PRN Reason: TITRATE PER MD ORDER Last Titration: 10/18/17 17:00 Dose: 14 mcg/min, 26.25 mls/hr Phenylephrine HCl 60 mg/ (Sodium Chloride) 500 mls @ 10 mls/hr IV .Q24H PRN; Protocol; 20 MCG/MIN PRN Reason: TITRATE PER MD ORDER Last Titration: 10/18/17 15:00 Dose: 0 mcg/min, 0 mls/hr Meropenem 500 mg/ Sodium (Chloride) 100 mls @ 100 mls/hr IVPB Q8H ANABELLA PRN Reason: Protocol Last Admin: 10/18/17 20:36 Dose: 100 mls/hr Dexmedetomidine HCl 200 mcg/ (Sodium Chloride) 50 mls @ 7.36 mls/hr IV TITR PRN ; Protocol; 0.2 MCG/KG/HR PRN Reason: Sedation Last Admin: 10/18/17 17:46 Dose: 0.2 mcg/kg/hr, 7.36 mls/hr Cisatracurium Besylate 100 mg/ (Dextrose) 250 mls @ 66.28 mls/hr IV .Q3H47M ANABELLA ; 3 MCG/KG/MIN PRN Reason: Protocol Last Admin: 10/18/17 20:34 Dose: 66.28 mls/hr Insulin Human Regular (Novolin R) 0 unit SC Q6H ANABELLA PRN Reason: Protocol Last Admin: 10/18/17 17:47 Dose: 3 units Lorazepam (Ativan) 1 mg IVP Q4H PRN PRN Reason: Agitation Last Admin: 10/17/17 22:15 Dose: 1 mg Pantoprazole Sodium (Protonix Inj) 40 mg IVP Q12H ANABELLA Last Admin: 10/18/17 13:43 Dose: 40 mg Rosuvastatin Calcium (Crestor) 10 mg PO HS ANABELLA Sodium Bicarbonate (Sodium Bicarbonate Tab) 650 mg PO TID ANABELLA Last Admin: 10/18/17 17:22 Dose: 650 mg - Labs Labs: 10/18/17 06:21 10/18/17 06:21 PT 16.6 SECONDS (9.7-12.2) H 10/17/17 03:04 INR 1.5 10/17/17 03:04 APTT 67 SECONDS (21-34) H D 10/17/17 03:04
[2017-10-19] MEDS: DEXTROSE 5% IV SCH ×2 (00:07→04:30)
[2017-10-19] MEDS: WATER IV SCH ×2 (00:07→04:30)
[2017-10-19] MEDS: CISATRACURIUM BESYLATE IV SCH ×2 (00:07→04:30)
[2017-10-19] MEDS: (Novolin R) Insulin Human Regular 100 units/ml vial SC SCH ×4 (00:12→17:47)
[2017-10-19] MEDS: White Petrolatum/Mineral Oil Ophth Oint(3.5 gm) OU SCH ×5 (00:16→17:06)
[2017-10-19] MEDS: Dexmedetomidine Hydrochloride 200 MCG in Sodium Chloride 0.9% 48 ML IV PRN ×2 (00:28→08:00)
[2017-10-19] MEDS: Albuterol-Ipratrop 3 mg / 0.5 (3 ml) UD INH SCH ×3 (01:34→13:23)
[2017-10-19] MEDS: Meropenem 500 MG in Sodium Chloride 0.9% 100 ML IVPB SCH ×2 (04:06→13:30)
[2017-10-19 05:42] LABS: ARTERIAL BLOOD GAS HCO3 23.5 mmol/L (21-28); ARTERIAL BLOOD GAS HEMOGLOBIN 9.3 g/dL (11.7-17.4); ARTERIAL BLOOD GAS O2 SAT 96.4 % (95-98); ARTERIAL BLOOD GAS PCO2 52 mm/Hg (35-45); ARTERIAL BLOOD GAS PH 7.29 (7.35-7.45); ARTERIAL BLOOD GAS PO2 72 mm/Hg (80-100); ARTERIAL BLOOD GAS TCO2 26.6 mmol/L (22-28)
[2017-10-19 05:54] LABS: BASO % 0.2 % (0.0-2.0); EOS # 0.4 K/uL (0.0-0.7); EOS % 2.2 % (0.0-4.0); LYMPH # 1.8 K/uL (1.0-4.3); LYMPH % 9.3 % (20.0-40.0); MEAN CELL VOLUME 87.6 fL (80.0-94.0); MEAN CORPUSCULAR HEMOGLOBIN 27.7 pg (27.0-31.0); MEAN CORPUSCULAR HGB CONC 31.6 g/dL (33.0-37.0); MEAN PLATELET VOLUME 11.4 fL (7.2-11.7); MONO # 1.7 K/uL (0.0-0.8); MONO % 8.6 % (0.0-10.0); NEUT # 15.4 K/uL (1.8-7.0); NEUT % 79.7 % (50.0-75.0); NRBC % 3.2 % (0.0-2.0); PLATELET COUNT 43 K/uL (130-400); RBC 3.26 Mil/uL (4.40-5.90); RED CELL DISTRIBUTION WIDTH 18.3 % (11.5-14.5); WHITE BLOOD COUNT 19.4 K/uL (4.8-10.8)
[2017-10-19 06:39] LABS: ALB/GLOB RATIO 1.1 (1.0-2.1); ALBUMIN 3.3 g/dL (3.5-5.0); CALCIUM 8.3 mg/dl (8.6-10.4)
--- NOTE | 2017-10-19 08:32 | RAD ---
Date of service: 10/19/2017 HISTORY: intubated COMPARISON: 10/18/2017. FINDINGS: The endotracheal tube terminates 3 cm proximal to the fish. LUNGS: There is interval worsening with near complete opacification of both lungs. PLEURA: Suspect effusions, no pneumothorax apparent. CARDIOVASCULAR: Cannot evaluate due to bilateral opaque comet thorax. OSSEOUS STRUCTURES: No significant abnormalities. VISUALIZED UPPER ABDOMEN: Normal. OTHER FINDINGS: None. IMPRESSION: Worsening pulmonary edema with near complete opacification of the lungs. Suspect pleural effusions.
[2017-10-19 08:33] LABS: BANDS 2 % (0-2); EOSINOPHIL 5 % (0-4); LYMPHOCYTE 3 % (20-40); MONOCYTE 7 % (0-10); NEUTROPHIL 83 % (50-75); NUCLEATED RED BLOOD CELL 4 % (0-0); PLATELET ESTIMATE NORMAL (NORMAL); TOTAL CELLS COUNTED 100
[2017-10-19 08:34] LABS: ANISOCYTOSIS SLIGHT; HYPOCHROMIC SLIGHT; LARGE PLATELETS PRESENT; POIKILOCYTOSIS SLIGHT
--- NOTE | 2017-10-19 09:08 | CP.PCM.PN ---
Subjective - Date & Time of Evaluation Date of Evaluation: 10/19/17 Time of Evaluation: 09:05 - Subjective Subjective: remains on vent, sedated and on paralysis agent CXR still with CHF pattern only on 1 pressor now- levophed at 10 mcg/min for HD today Objective - Vital Signs/Intake and Output Vital Signs (last 24 hours): Temp Pulse Resp BP Pulse Ox 98.7 F 106 H 0 L 116/74 100 10/19/17 04:00 10/19/17 07:32 10/19/17 05:33 10/19/17 07:32 10/19/17 07:32 Intake and Output: 10/19/17 10/19/17 06:59 18:59 Intake Total 2048.8 0 Balance 2048.8 0 - Medications Medications: Current Medications Albuterol/Ipratropium (Duoneb 3 Mg/0.5 Mg (3 Ml) Ud) 3 ml INH RQ6 ANABELLA Last Admin: 10/19/17 07:38 Dose: 3 ml Artificial Tears (Lacri-Lube) 0 gm OU Q4 ANABELLA Last Admin: 10/19/17 07:57 Dose: 3.5 gm Calcium Acetate (Phoslo) 667 mg GT TID ANABELLA Last Admin: 10/18/17 17:22 Dose: 667 mg Dextrose (Dextrose 50% Inj) 0 ml IV STAT PRN; Protocol PRN Reason: Hypoglycemia Protocol Dextrose (Glutose 15) 0 gm PO ONCE PRN; Protocol PRN Reason: Hypoglycemia Protocol Dextrose (Dextrose 50% Inj) 0 ml IV STAT PRN; Protocol PRN Reason: Hypoglycemia Protocol Dextrose (Glutose 15) 0 gm PO ONCE PRN; Protocol PRN Reason: Hypoglycemia Protocol Glucagon (Glucagen Diagnostic Kit) 0 mg IM STAT PRN; Protocol PRN Reason: Hypoglycemia Protocol Glucagon (Glucagen Diagnostic Kit) 0 mg IM STAT PRN; Protocol PRN Reason: Hypoglycemia Protocol Doxycycline Hyclate 100 mg/ (Sodium Chloride) 100 mls @ 100 mls/hr IVPB Q12H ANABELLA PRN Reason: Protocol Last Admin: 10/19/17 05:22 Dose: 100 mls/hr Vasopressin 40 units/ Sodium (Chloride) 40 mls @ 0.6 mls/hr IV .Q24H ANABELLA; 0.01 UNITS/MIN PRN Reason: Protocol Last Admin: 10/18/17 19:00 Dose: Not Given Norepinephrine Bitartrate 16 (mg/ Sodium Chloride) 500 mls @ 7.5 mls/hr IV .Q24H PRN; Protocol; 4 MCG/MIN PRN Reason: TITRATE PER MD ORDER Last Titration: 10/19/17 03:15 Dose: 12 mcg/min, 22.5 mls/hr Phenylephrine HCl 60 mg/ (Sodium Chloride) 500 mls @ 10 mls/hr IV .Q24H PRN; Protocol; 20 MCG/MIN PRN Reason: TITRATE PER MD ORDER Last Titration: 10/18/17 15:00 Dose: 0 mcg/min, 0 mls/hr Meropenem 500 mg/ Sodium (Chloride) 100 mls @ 100 mls/hr IVPB Q8H ANABELLA PRN Reason: Protocol Last Admin: 10/19/17 04:06 Dose: 100 mls/hr Dexmedetomidine HCl 200 mcg/ (Sodium Chloride) 50 mls @ 7.36 mls/hr IV TITR PRN ; Protocol; 0.2 MCG/KG/HR PRN Reason: Sedation Last Admin: 10/19/17 08:00 Dose: 0.2 mcg/kg/hr, 7.36 mls/hr Cisatracurium Besylate 100 mg/ (Dextrose) 250 mls @ 66.28 mls/hr IV .Q3H47M ANABELLA ; 3 MCG/KG/MIN PRN Reason: Protocol Last Admin: 10/19/17 04:30 Dose: 66.28 mls/hr Insulin Human Regular (Novolin R) 0 unit SC Q6H ANABELLA PRN Reason: Protocol Last Admin: 10/19/17 05:23 Dose: 3 units Lorazepam (Ativan) 1 mg IVP Q4H PRN PRN Reason: Agitation Last Admin: 10/19/17 02:30 Dose: 1 mg Pantoprazole Sodium (Protonix Inj) 40 mg IVP Q12H ANABELLA Last Admin: 10/19/17 02:00 Dose: 40 mg Rosuvastatin Calcium (Crestor) 10 mg PO HS ANABELLA Last Admin: 10/18/17 22:00 Dose: 10 mg Sodium Bicarbonate (Sodium Bicarbonate Tab) 650 mg PO TID ANABELLA Last Admin: 10/18/17 17:22 Dose: 650 mg - Labs Labs: 10/19/17 05:39 10/19/17 05:39 PT 16.6 SECONDS (9.7-12.2) H 10/17/17 03:04 INR 1.5 10/17/17 03:04 APTT 67 SECONDS (21-34) H D 10/17/17 03:04 - Constitutional Appears: In Acute Distress, Chronically Ill - Head Exam Head Exam: ATRAUMATIC, NORMAL INSPECTION - Eye Exam Eye Exam: EOMI, Normal appearance - Neck Exam Neck Exam: Normal Inspection. absent: Tenderness - Respiratory Exam Respiratory Exam: Rhonchi, Wheezes, Respiratory Distress - Cardiovascular Exam Cardiovascular Exam: Tachycardia, +S1 - GI/Abdominal Exam GI & Abdominal Exam: Distended. absent: Tenderness - Extremities Exam Extremities Exam: Pedal Edema. absent: Tenderness - Neurological Exam Neurological Exam: Altered - Skin Skin Exam: Dry, Warm Assessment and Plan (1) COPD exacerbation Status: Acute (2) Type 2 diabetes mellitus with diabetic nephropathy Status: Acute (3) CHF (congestive heart failure) Status: Acute (4) Nephrotic syndrome Status: Acute (5) CO2 retention Status: Acute (6) HTN (hypertension) Status: Chronic (7) HENRIQUE (acute kidney injury) Status: Acute (8) Anoxic encephalopathy Status: Acute - Assessment and Plan (Free Text) Plan: dialysis today; try UF 2000ml due to CHF chganges vent management monitor mental status as per ICU team monitor humberto
[2017-10-19] MEDS: levETIRAcetam 100 mg/ml (5ml) Oral Syringe PO SCH ×2 (10:23→17:29)
[2017-10-19 10:52] LABS: INR 1.4; PROTHROMBIN TIME 15.1 SECONDS (9.7-12.2)
[2017-10-19] MEDS ORDERED: Dexmedetomidine Hydrochloride 200 MCG in Sodium Chloride 0.9% 48 ML IV PRN (11:14)
[2017-10-19] MEDS: Cisatracurium Besylate 100 MG in Dextrose 5% In Water 250 ML IV SCH ×2 (11:57→15:22)
--- NOTE | 2017-10-19 12:30 | CP.CCUPN ---
<Gwyn Leslie - Last Filed: 10/19/17 14:48> CCU Subjective - Physician Review Subjective (Free Text): Gwyn Leslie DO PGY-1, ICU progress note for Dr. Luu Pt seen and examined at bedside. ROS was unobtainable due to intubation and sedation. Pt has been anuric for the past 48 hours.There were no bowel movements overnight. Pt was afebrile overnight. Currently, pt is currently receiving Levophed 4 mcg/min, Nimbex 3 mcg/kg/hr, Precedex 0.2 mcg/kg/hr. Pt is on PRVC: 3300/30RR/90%/14 A 12-point ROS was unobtainable due to intubation and sedation. CCU Objective - Vital Signs / Intake & Output Vital Signs (Last 4 hours): Vital Signs Temp Pulse Pulse Resp BP BP BP 10/19/17 12:10 157/77 H 10/19/17 12:00 107 H 10/19/17 11:50 103 H 111/70 10/19/17 11:40 115/61 10/19/17 11:35 102 H 112/64 10/19/17 11:30 104 H 10/19/17 11:20 105 H 115/67 10/19/17 11:10 133/69 10/19/17 11:05 107 H 117/75 10/19/17 11:03 105 H 119/77 10/19/17 11:00 108 H 127/64 10/19/17 10:40 116/69 10/19/17 10:35 100 H 116/69 10/19/17 10:30 99 H 10/19/17 10:25 130/71 10/19/17 10:20 99 H 113/67 10/19/17 10:10 123/68 10/19/17 10:05 97 H 106/60 10/19/17 10:00 99 H 10/19/17 09:55 117/66 10/19/17 09:51 99 H 104/62 10/19/17 09:40 98.7 F 101 H 23 127/62 10/19/17 09:35 103 H 127/62 10/19/17 09:30 98.7 F 106 H 23 133/79 10/19/17 09:20 114 H 133/79 10/19/17 09:00 116 H 142/67 10/19/17 08:32 108 H 123/76 Pulse Ox 10/19/17 12:10 10/19/17 12:00 92 L 10/19/17 11:50 92 L 10/19/17 11:40 10/19/17 11:35 92 L 10/19/17 11:30 92 L 10/19/17 11:20 91 L 10/19/17 11:10 10/19/17 11:05 91 L 10/19/17 11:03 10/19/17 11:00 91 L 10/19/17 10:40 10/19/17 10:35 93 L 10/19/17 10:30 93 L 10/19/17 10:25 10/19/17 10:20 94 L 10/19/17 10:10 10/19/17 10:05 95 10/19/17 10:00 95 10/19/17 09:55 10/19/17 09:51 94 L 10/19/17 09:40 95 10/19/17 09:35 95 10/19/17 09:30 94 L 10/19/17 09:20 10/19/17 09:00 91 L 10/19/17 08:32 Intake and Output (Last 8hrs): Intake & Output 10/18/17 10/19/17 10/19/17 22:59 06:59 14:59 Intake Total 2036.2 1361.8 628.2 Output Total 8 0 Balance 2028.2 1361.8 628.2 Intake: IV 667 80.2 0 Intake, IV Amount 999.2 831.6 458.2 Left 29.2 Left Distal Port Femoral 195.3 169.2 90.2 Left Medial Port Femoral 100.6 Left Proximal Port 529.6 595.8 331.0 Left Proximal Port 100 Femoral Left TLC medial port 44.5 66.6 37.0 Tube Feeding 170 450 50 Other 200 120 Output: Urine 8 0 Urethral (Campbell) 8 0 - Physical Exam Head: Positive for: Atraumatic, Normocephalic Pupils: Positive for: Non-Reactive (pt is on precedex) Conjunctiva: Positive for: Injected Mouth: Positive for: Moist Mucous Membranes, Other ((+) ETT, OGT) Respiratory/Chest: Positive for: Wheezes (scattered), Rhonchi (diffuse), Other ( PRVC 330/30/90/14). Negative for: Good Air Exchange Cardiovascular: Positive for: Normal S1, S2, Tachycardic Abdomen: Positive for: Distention (soft), Normal Bowel Sounds (in all 4 quadrants), Other (morbid obesity) Upper Extremity: Positive for: Normal Inspection, Edema (nonpitting swelling bilaterally), NORMAL PULSES (3+ bilateral radial pulses), Other ((+) left radial a-line; c/d/i) Lower Extremity: Positive for: Normal Inspection, Edema (2+ pitting edema bilateral lower extremities to the knees), NORMAL PULSES ((+) DP and PT pulses obtained by dopplar bilaterally), Other ((+) left femoral TLC; c/d/i) Neurological: Negative for: GCS=15 (GCS 3t) Skin: Positive for: Warm, Dry, Normal Color Psychiatric: Positive for: Other (pt is sedated) - Medications Active Medications: Active Medications Generic Name Dose Route Start Last Admin Trade Name Freq PRN Reason Stop Dose Admin Albuterol/Ipratropium 3 ml 10/15/17 14:00 10/19/17 07:38 Duoneb 3 Mg/0.5 Mg (3 Ml) Ud INH 3 ml RQ6 ANABELLA Administration Artificial Tears 0 gm 10/18/17 16:00 10/19/17 11:40 Lacri-Lube OU 3.5 gm Q4 ANABELLA Administration Calcium Acetate 667 mg 10/18/17 14:00 10/19/17 10:23 Phoslo GT 667 mg TID ANABELLA Administration Dextrose 0 ml 10/13/17 10:07 Dextrose 50% Inj IV STAT PRN Hypoglycemia Protocol Protocol Dextrose 0 gm 10/13/17 10:07 Glutose 15 PO ONCE PRN Hypoglycemia Protocol Protocol Dextrose 0 ml 10/15/17 23:36 Dextrose 50% Inj IV STAT PRN Hypoglycemia Protocol Protocol Dextrose 0 gm 10/15/17 23:36 Glutose 15 PO ONCE PRN Hypoglycemia Protocol Protocol Glucagon 0 mg 10/13/17 10:07 Glucagen Diagnostic Kit IM STAT PRN Hypoglycemia Protocol Protocol Glucagon 0 mg 10/15/17 23:36 Glucagen Diagnostic Kit IM STAT PRN Hypoglycemia Protocol Protocol Heparin Sodium (Porcine) 5,000 units 10/19/17 10:30 10/19/17 11:34 Heparin SC Not Given Q12H ANABELLA Doxycycline Hyclate 100 mg/ 100 mls @ 100 mls/hr 10/15/17 18:00 10/19/17 05: 22 Sodium Chloride IVPB 100 mls/hr Q12H ANABELLA Administration Protocol Vasopressin 40 units/ Sodium 40 mls @ 0.6 mls/hr 10/17/17 19:00 10/18/17 19: 00 Chloride IV Not Given .Q24H ANABELLA Protocol 0.01 UNITS/MIN Norepinephrine Bitartrate 16 500 mls @ 7.5 mls/hr 10/17/17 23:50 10/19/17 03: 15 mg/ Sodium Chloride IV 12 mcg/min .Q24H PRN 22.5 mls/hr TITRATE PER MD ORDER Titration Protocol 4 MCG/MIN Phenylephrine HCl 60 mg/ 500 mls @ 10 mls/hr 10/17/17 23:52 10/18/17 15:00 Sodium Chloride IV 0 mcg/min .Q24H PRN 0 mls/hr TITRATE PER MD ORDER Titration Protocol 20 MCG/MIN Meropenem 500 mg/ Sodium 100 mls @ 100 mls/hr 10/18/17 12:30 10/19/17 04:06 Chloride IVPB 100 mls/hr Q8H ANABELLA Administration Protocol Cisatracurium Besylate 100 mg/ 260 mls @ 67.93 mls/hr 10/19/17 11:15 11:57 Dextrose IV 3 mcg/kg/min .Q3H50M ANABELLA 67.93 mls/hr Protocol Administration 3 MCG/KG/MIN Dexmedetomidine HCl 200 mcg/ 50 mls @ 7.25 mls/hr 10/19/17 11:14 10/19/17 12: 11 Sodium Chloride IV 0.2 mcg/kg/hr TITR PRN 7.25 mls/hr Sedation Administration Protocol 0.2 MCG/KG/HR Insulin Human Regular 0 unit 10/15/17 18:00 10/19/17 11:40 Novolin R SC 3 units Q6H ANABELLA Administration Protocol Levetiracetam 500 mg 10/19/17 10:00 10/19/17 10:23 Keppra PO 500 mg BID ANABELLA Administration Lorazepam 1 mg 10/17/17 22:02 10/19/17 02:30 Ativan IVP 1 mg Q4H PRN Administration Agitation Pantoprazole Sodium 40 mg 10/16/17 01:00 10/19/17 02:00 Protonix Inj IVP 40 mg Q12H ANABELLA Administration Rosuvastatin Calcium 10 mg 10/18/17 22:00 10/18/17 22:00 Crestor PO 10 mg HS ANABELLA Administration Sodium Bicarbonate 650 mg 10/15/17 10:00 10/19/17 10:23 Sodium Bicarbonate Tab PO 650 mg TID ANABELLA Administration - Patient Studies Lab Studies: Microbiology Studies 10/18/17 14:11 Gram Stain - Final Trachasp Sputum Culture - Preliminary No growth. 10/15/17 16:40 Blood Culture - Preliminary Blood-Venous NO GROWTH AFTER 3 DAYS 10/15/17 16:00 Blood Culture - Preliminary Blood-Venous NO GROWTH AFTER 3 DAYS Lab Studies 10/19/17 10/19/17 10/19/17 Range/Units 11:27 10:39 05:39 WBC (4.8-10.8) K/uL RBC (4.40-5.90) Mil/uL Hgb (12.0-18.0) g/dL Hct (35.0-51.0) % MCV (80.0-94.0) fL MCH (27.0-31.0) pg MCHC (33.0-37.0) g/dL RDW (11.5-14.5) % Plt Count (130-400) K/uL MPV (7.2-11.7) fL Neut % (Auto) (50.0-75.0) % Lymph % (Auto) (20.0-40.0) % [place] % (Auto) (0.0-10.0) % Eos % (Auto) (0.0-4.0) % Baso % (Auto) (0.0-2.0) % Neut # (Auto) (1.8-7.0) K/uL Lymph # (Auto) (1.0-4.3) K/uL [place] # (Auto) (0.0-0.8) K/uL Eos # (Auto) (0.0-0.7) K/uL Baso # (Auto) (0.0-0.2) K/uL Neutrophils % (Manual) (50-75) % Band Neutrophils % (0-2) % Lymphocytes % (Manual) (20-40) % Monocytes % (Manual) (0-10) % Eosinophils % (Manual) (0-4) % Nucleated RBC % (0-0) % Platelet Estimate (NORMAL) Large Platelets Hypochromasia (manual) Poikilocytosis (manual Anisocytosis (manual) ESR (0-15) mm/hr PT 15.1 H (9.7-12.2) SECONDS INR 1.4 APTT 62 H D (21-34) SECONDS Puncture Site pCO2 (35-45) mm/Hg pO2 (80-100) mm/Hg HCO3 (21-28) mmol/L ABG pH (7.35-7.45) ABG Total CO2 (22-28) mmol/L ABG O2 Saturation (95-98) % ABG Base Excess (-2.0-3.0) mmol/L ABG Hemoglobin (11.7-17.4) g/dL ABG Carboxyhemoglobin (0.5-1.5) % POC ABG HHb (Measured) (0.0-5.0) % ABG Methemoglobin (0.0-3.0) % Philippe Test ABG Potassium (3.6-5.2) mmol/L A-a O2 Difference mm/Hg Respiratory Index Hgb O2 Saturation (95.0-98.0) % Sodium (132-148) mmol/l Chloride (98-107) mmol/L Glucose (75-110) mg/dl Lactate (0.7-2.1) mmol/L Vent Mode Mechanical Rate FiO2 % Tidal Volume PEEP Potassium (3.6-5.2) mmol/L Carbon Dioxide (22-30) mmol/L Anion Gap (10-20) BUN (9-20) mg/dL Creatinine (0.8-1.5) mg/dL Est GFR ( Amer) Est GFR (Non-Af Amer) POC Glucose (mg/dL) 208 H (65-110) mg/dL Random Glucose (75-110) mg/dL Calcium (8.6-10.4) mg/dl Phosphorus (2.5-4.5) mg/dL Magnesium (1.6-2.3) mg/dL Total Bilirubin (0.2-1.3) mg/dL AST (17-59) U/L ALT (21-72) U/L Alkaline Phosphatase (38-126) U/L Lactate Dehydrogenase (313-618) U/L C-Reactive Protein (0.0-9.9) mg/L Total Protein (6.3-8.3) g/dL Albumin (3.5-5.0) g/dL Globulin (2.2-3.9) gm/dL Albumin/Globulin Ratio (1.0-2.1) Procalcitonin (0.19-0.49) NG/ML Arterial Blood Potassium (3.6-5.2) mmol/L Random Vancomycin 15.1 ug/mL Ur L.pneumophila Ag (NEGATIVE) Mycoplasma pneumon IgM (NEGATIVE) 10/19/17 10/19/17 10/19/17 Range/Units 05:39 05:39 05:25 WBC 19.4 H (4.8-10.8) K/uL RBC 3.26 L (4.40-5.90) Mil/uL Hgb 9.0 L (12.0-18.0) g/dL Hct 28.6 L (35.0-51.0) % MCV 87.6 D (80.0-94.0) fL MCH 27.7 (27.0-31.0) pg MCHC 31.6 L (33.0-37.0) g/dL RDW 18.3 H (11.5-14.5) % Plt Count 43 L (130-400) K/uL MPV 11.4 (7.2-11.7) fL Neut % (Auto) 79.7 H (50.0-75.0) % Lymph % (Auto) 9.3 L (20.0-40.0) % [place] % (Auto) 8.6 (0.0-10.0) % Eos % (Auto) 2.2 (0.0-4.0) % Baso % (Auto) 0.2 (0.0-2.0) % Neut # (Auto) 15.4 H (1.8-7.0) K/uL Lymph # (Auto) 1.8 (1.0-4.3) K/uL [place] # (Auto) 1.7 H (0.0-0.8) K/uL Eos # (Auto) 0.4 (0.0-0.7) K/uL Baso # (Auto) 0.0 (0.0-0.2) K/uL Neutrophils % (Manual) 83 H (50-75) % Band Neutrophils % 2 (0-2) % Lymphocytes % (Manual) 3 L (20-40) % Monocytes % (Manual) 7 (0-10) % Eosinophils % (Manual) 5 H (0-4) % Nucleated RBC % 4 H (0-0) % Platelet Estimate Normal (NORMAL) Large Platelets Present Hypochromasia (manual) Slight Poikilocytosis (manual Slight Anisocytosis (manual) Slight ESR (0-15) mm/hr PT (9.7-12.2) SECONDS INR APTT (21-34) SECONDS Puncture Site Gertrude pCO2 52 H (35-45) mm/Hg pO2 72 L (80-100) mm/Hg HCO3 23.5 (21-28) mmol/L ABG pH 7.29 L (7.35-7.45) ABG Total CO2 26.6 (22-28) mmol/L ABG O2 Saturation 96.4 (95-98) % ABG Base Excess -1.8 (-2.0-3.0) mmol/L ABG Hemoglobin 9.3 L (11.7-17.4) g/dL ABG Carboxyhemoglobin 2.4 H (0.5-1.5) % POC ABG HHb (Measured) 3.5 (0.0-5.0) % ABG Methemoglobin 0.7 (0.0-3.0) % Philippe Test Na ABG Potassium (3.6-5.2) mmol/L A-a O2 Difference 505.0 mm/Hg Respiratory Index 7.0 Hgb O2 Saturation 93.4 L (95.0-98.0) % Sodium 136 (132-148) mmol/l Chloride 96 L (98-107) mmol/L Glucose (75-110) mg/dl Lactate (0.7-2.1) mmol/L Vent Mode Prvc Mechanical Rate 30 FiO2 90.0 % Tidal Volume 550 PEEP 5 Potassium 4.3 (3.6-5.2) mmol/L Carbon Dioxide 29 (22-30) mmol/L Anion Gap 16 (10-20) BUN 58 H (9-20) mg/dL Creatinine 5.3 H (0.8-1.5) mg/dL Est GFR ( Amer) 14 Est GFR (Non-Af Amer) 12 POC Glucose (mg/dL) (65-110) mg/dL Random Glucose 241 H (75-110) mg/dL Calcium 8.3 L (8.6-10.4) mg/dl Phosphorus 7.0 H (2.5-4.5) mg/dL Magnesium 2.1 (1.6-2.3) mg/dL Total Bilirubin 1.4 H (0.2-1.3) mg/dL AST 44 (17-59) U/L ALT 48 (21-72) U/L Alkaline Phosphatase 135 H (38-126) U/L Lactate Dehydrogenase (313-618) U/L C-Reactive Protein (0.0-9.9) mg/L Total Protein 6.2 L (6.3-8.3) g/dL Albumin 3.3 L (3.5-5.0) g/dL Globulin 2.9 (2.2-3.9) gm/dL Albumin/Globulin Ratio 1.1 (1.0-2.1) Procalcitonin (0.19-0.49) NG/ML Arterial Blood Potassium (3.6-5.2) mmol/L Random Vancomycin ug/mL Ur L.pneumophila Ag (NEGATIVE) Mycoplasma pneumon IgM (NEGATIVE) 10/19/17 10/19/17 10/18/17 Range/Units 05:14 00:10 17:38 WBC (4.8-10.8) K/uL RBC (4.40-5.90) Mil/uL Hgb (12.0-18.0) g/dL Hct (35.0-51.0) % MCV (80.0-94.0) fL MCH (27.0-31.0) pg MCHC (33.0-37.0) g/dL RDW (11.5-14.5) % Plt Count (130-400) K/uL MPV (7.2-11.7) fL Neut % (Auto) (50.0-75.0) % Lymph % (Auto) (20.0-40.0) % [place] % (Auto) (0.0-10.0) % Eos % (Auto) (0.0-4.0) % Baso % (Auto) (0.0-2.0) % Neut # (Auto) (1.8-7.0) K/uL Lymph # (Auto) (1.0-4.3) K/uL [place] # (Auto) (0.0-0.8) K/uL Eos # (Auto) (0.0-0.7) K/uL Baso # (Auto) (0.0-0.2) K/uL Neutrophils % (Manual) (50-75) % Band Neutrophils % (0-2) % Lymphocytes % (Manual) (20-40) % Monocytes % (Manual) (0-10) % Eosinophils % (Manual) (0-4) % Nucleated RBC % (0-0) % Platelet Estimate (NORMAL) Large Platelets Hypochromasia (manual) Poikilocytosis (manual Anisocytosis (manual) ESR (0-15) mm/hr PT (9.7-12.2) SECONDS INR APTT (21-34) SECONDS Puncture Site pCO2 (35-45) mm/Hg pO2 (80-100) mm/Hg HCO3 (21-28) mmol/L ABG pH (7.35-7.45) ABG Total CO2 (22-28) mmol/L ABG O2 Saturation (95-98) % ABG Base Excess (-2.0-3.0) mmol/L ABG Hemoglobin (11.7-17.4) g/dL ABG Carboxyhemoglobin (0.5-1.5) % POC ABG HHb (Measured) (0.0-5.0) % ABG Methemoglobin (0.0-3.0) % Philippe Test ABG Potassium (3.6-5.2) mmol/L A-a O2 Difference mm/Hg Respiratory Index Hgb O2 Saturation (95.0-98.0) % Sodium (132-148) mmol/l Chloride (98-107) mmol/L Glucose (75-110) mg/dl Lactate (0.7-2.1) mmol/L Vent Mode Mechanical Rate FiO2 % Tidal Volume PEEP Potassium (3.6-5.2) mmol/L Carbon Dioxide (22-30) mmol/L Anion Gap (10-20) BUN (9-20) mg/dL Creatinine (0.8-1.5) mg/dL Est GFR ( Amer) Est GFR (Non-Af Amer) POC Glucose (mg/dL) 237 H 251 H 247 H (65-110) mg/dL Random Glucose (75-110) mg/dL Calcium (8.6-10.4) mg/dl Phosphorus (2.5-4.5) mg/dL Magnesium (1.6-2.3) mg/dL Total Bilirubin (0.2-1.3) mg/dL AST (17-59) U/L ALT (21-72) U/L Alkaline Phosphatase (38-126) U/L Lactate Dehydrogenase (313-618) U/L C-Reactive Protein (0.0-9.9) mg/L Total Protein (6.3-8.3) g/dL Albumin (3.5-5.0) g/dL Globulin (2.2-3.9) gm/dL Albumin/Globulin Ratio (1.0-2.1) Procalcitonin (0.19-0.49) NG/ML Arterial Blood Potassium (3.6-5.2) mmol/L Random Vancomycin ug/mL Ur L.pneumophila Ag (NEGATIVE) Mycoplasma pneumon IgM (NEGATIVE) 10/18/17 10/18/17 10/18/17 Range/Units 14:11 14:11 14:11 WBC (4.8-10.8) K/uL RBC (4.40-5.90) Mil/uL Hgb (12.0-18.0) g/dL Hct (35.0-51.0) % MCV (80.0-94.0) fL MCH (27.0-31.0) pg MCHC (33.0-37.0) g/dL RDW (11.5-14.5) % Plt Count (130-400) K/uL MPV (7.2-11.7) fL Neut % (Auto) (50.0-75.0) % Lymph % (Auto) (20.0-40.0) % [place] % (Auto) (0.0-10.0) % Eos % (Auto) (0.0-4.0) % Baso % (Auto) (0.0-2.0) % Neut # (Auto) (1.8-7.0) K/uL Lymph # (Auto) (1.0-4.3) K/uL [place] # (Auto) (0.0-0.8) K/uL Eos # (Auto) (0.0-0.7) K/uL Baso # (Auto) (0.0-0.2) K/uL Neutrophils % (Manual) (50-75) % Band Neutrophils % (0-2) % Lymphocytes % (Manual) (20-40) % Monocytes % (Manual) (0-10) % Eosinophils % (Manual) (0-4) % Nucleated RBC % (0-0) % Platelet Estimate (NORMAL) Large Platelets Hypochromasia (manual) Poikilocytosis (manual Anisocytosis (manual) ESR (0-15) mm/hr PT (9.7-12.2) SECONDS INR APTT (21-34) SECONDS Puncture Site pCO2 (35-45) mm/Hg pO2 (80-100) mm/Hg HCO3 (21-28) mmol/L ABG pH (7.35-7.45) ABG Total CO2 (22-28) mmol/L ABG O2 Saturation (95-98) % ABG Base Excess (-2.0-3.0) mmol/L ABG Hemoglobin (11.7-17.4) g/dL ABG Carboxyhemoglobin (0.5-1.5) % POC ABG HHb (Measured) (0.0-5.0) % ABG Methemoglobin (0.0-3.0) % Philippe Test ABG Potassium (3.6-5.2) mmol/L A-a O2 Difference mm/Hg Respiratory Index Hgb O2 Saturation (95.0-98.0) % Sodium (132-148) mmol/l Chloride (98-107) mmol/L Glucose (75-110) mg/dl Lactate (0.7-2.1) mmol/L Vent Mode Mechanical Rate FiO2 % Tidal Volume PEEP Potassium (3.6-5.2) mmol/L Carbon Dioxide (22-30) mmol/L Anion Gap (10-20) BUN (9-20) mg/dL Creatinine (0.8-1.5) mg/dL Est GFR ( Amer) Est GFR (Non-Af Amer) POC Glucose (mg/dL) (65-110) mg/dL Random Glucose (75-110) mg/dL Calcium (8.6-10.4) mg/dl Phosphorus (2.5-4.5) mg/dL Magnesium (1.6-2.3) mg/dL Total Bilirubin (0.2-1.3) mg/dL AST (17-59) U/L ALT (21-72) U/L Alkaline Phosphatase (38-126) U/L Lactate Dehydrogenase 1378 H (313-618) U/L C-Reactive Protein 178.50 H (0.0-9.9) mg/L Total Protein (6.3-8.3) g/dL Albumin (3.5-5.0) g/dL Globulin (2.2-3.9) gm/dL Albumin/Globulin Ratio (1.0-2.1) Procalcitonin 23.66 H (0.19-0.49) NG/ML Arterial Blood Potassium (3.6-5.2) mmol/L Random Vancomycin ug/mL Ur L.pneumophila Ag Negative (NEGATIVE) Mycoplasma pneumon IgM Negative (NEGATIVE) 10/18/17 10/18/17 10/18/17 Range/Units 14:11 13:18 11:44 WBC (4.8-10.8) K/uL RBC (4.40-5.90) Mil/uL Hgb (12.0-18.0) g/dL Hct (35.0-51.0) % MCV (80.0-94.0) fL MCH (27.0-31.0) pg MCHC (33.0-37.0) g/dL RDW (11.5-14.5) % Plt Count (130-400) K/uL MPV (7.2-11.7) fL Neut % (Auto) (50.0-75.0) % Lymph % (Auto) (20.0-40.0) % [place] % (Auto) (0.0-10.0) % Eos % (Auto) (0.0-4.0) % Baso % (Auto) (0.0-2.0) % Neut # (Auto) (1.8-7.0) K/uL Lymph # (Auto) (1.0-4.3) K/uL [place] # (Auto) (0.0-0.8) K/uL Eos # (Auto) (0.0-0.7) K/uL Baso # (Auto) (0.0-0.2) K/uL Neutrophils % (Manual) (50-75) % Band Neutrophils % (0-2) % Lymphocytes % (Manual) (20-40) % Monocytes % (Manual) (0-10) % Eosinophils % (Manual) (0-4) % Nucleated RBC % (0-0) % Platelet Estimate (NORMAL) Large Platelets Hypochromasia (manual) Poikilocytosis (manual Anisocytosis (manual) ESR 95 H (0-15) mm/hr PT (9.7-12.2) SECONDS INR APTT (21-34) SECONDS Puncture Site A line pCO2 60 H (35-45) mm/Hg pO2 84 (80-100) mm/Hg HCO3 22.1 (21-28) mmol/L ABG pH 7.23 L (7.35-7.45) ABG Total CO2 26.9 (22-28) mmol/L ABG O2 Saturation 97.4 (95-98) % ABG Base Excess -3.5 L (-2.0-3.0) mmol/L ABG Hemoglobin (11.7-17.4) g/dL ABG Carboxyhemoglobin (0.5-1.5) % POC ABG HHb (Measured) (0.0-5.0) % ABG Methemoglobin (0.0-3.0) % Philippe Test Na ABG Potassium 4.4 (3.6-5.2) mmol/L A-a O2 Difference 554.0 mm/Hg Respiratory Index 6.6 Hgb O2 Saturation (95.0-98.0) % Sodium 137.0 (132-148) mmol/l Chloride 103.0 (98-107) mmol/L Glucose 231 H (75-110) mg/dl Lactate 1.8 (0.7-2.1) mmol/L Vent Mode Prvc Mechanical Rate 30 FiO2 100.0 % Tidal Volume 550 PEEP 5 Potassium (3.6-5.2) mmol/L Carbon Dioxide (22-30) mmol/L Anion Gap (10-20) BUN (9-20) mg/dL Creatinine (0.8-1.5) mg/dL Est GFR ( Amer) Est GFR (Non-Af Amer) POC Glucose (mg/dL) 206 H (65-110) mg/dL Random Glucose (75-110) mg/dL Calcium (8.6-10.4) mg/dl Phosphorus (2.5-4.5) mg/dL Magnesium (1.6-2.3) mg/dL Total Bilirubin (0.2-1.3) mg/dL AST (17-59) U/L ALT (21-72) U/L Alkaline Phosphatase (38-126) U/L Lactate Dehydrogenase (313-618) U/L C-Reactive Protein (0.0-9.9) mg/L Total Protein (6.3-8.3) g/dL Albumin (3.5-5.0) g/dL Globulin (2.2-3.9) gm/dL Albumin/Globulin Ratio (1.0-2.1) Procalcitonin (0.19-0.49) NG/ML Arterial Blood Potassium 4.4 (3.6-5.2) mmol/L Random Vancomycin ug/mL Ur L.pneumophila Ag (NEGATIVE) Mycoplasma pneumon IgM (NEGATIVE) Laboratory Results - last 24 hr 10/18/17 10/18/17 10/18/17 11:44 13:18 14:11 WBC RBC Hgb Hct MCV MCH MCHC RDW Plt Count MPV Neut % (Auto) Lymph % (Auto) [place] % (Auto) Eos % (Auto) Baso % (Auto) Neut # (Auto) Lymph # (Auto) [place] # (Auto) Eos # (Auto) Baso # (Auto) Neutrophils % (Manual) Band Neutrophils % Lymphocytes % (Manual) Monocytes % (Manual) Eosinophils % (Manual) Nucleated RBC % Platelet Estimate Large Platelets Hypochromasia (manual) Poikilocytosis (manual Anisocytosis (manual) ESR 95 H PT INR APTT Puncture Site A line pCO2 60 H pO2 84 HCO3 22.1 ABG pH 7.23 L ABG Total CO2 26.9 ABG O2 Saturation 97.4 ABG Base Excess -3.5 L ABG Hemoglobin ABG Carboxyhemoglobin POC ABG HHb (Measured) ABG Methemoglobin Philippe Test Na ABG Potassium 4.4 A-a O2 Difference 554.0 Respiratory Index 6.6 Hgb O2 Saturation Sodium 137.0 Chloride 103.0 Glucose 231 H Lactate 1.8 Vent Mode Prvc Mechanical Rate 30 FiO2 100.0 Tidal Volume 550 PEEP 5 Potassium Carbon Dioxide Anion Gap BUN Creatinine Est GFR ( Amer) Est GFR (Non-Af Amer) POC Glucose (mg/dL) 206 H Random Glucose Calcium Phosphorus Magnesium Total Bilirubin AST ALT Alkaline Phosphatase Lactate Dehydrogenase C-Reactive Protein Total Protein Albumin Globulin Albumin/Globulin Ratio Procalcitonin Arterial Blood Potassium 4.4 Random Vancomycin Ur L.pneumophila Ag Mycoplasma pneumon IgM 10/18/17 10/18/17 10/18/17 14:11 14:11 14:11 WBC RBC Hgb Hct MCV MCH MCHC RDW Plt Count MPV Neut % (Auto) Lymph % (Auto) [place] % (Auto) Eos % (Auto) Baso % (Auto) Neut # (Auto) Lymph # (Auto) [place] # (Auto) Eos # (Auto) Baso # (Auto) Neutrophils % (Manual) Band Neutrophils % Lymphocytes % (Manual) Monocytes % (Manual) Eosinophils % (Manual) Nucleated RBC % Platelet Estimate Large Platelets Hypochromasia (manual) Poikilocytosis (manual Anisocytosis (manual) ESR PT INR APTT Puncture Site pCO2 pO2 HCO3 ABG pH ABG Total CO2 ABG O2 Saturation ABG Base Excess ABG Hemoglobin ABG Carboxyhemoglobin POC ABG HHb (Measured) ABG Methemoglobin Philippe Test ABG Potassium A-a O2 Difference Respiratory Index Hgb O2 Saturation Sodium Chloride Glucose Lactate Vent Mode Mechanical Rate FiO2 Tidal Volume PEEP Potassium Carbon Dioxide Anion Gap BUN Creatinine Est GFR ( Amer) Est GFR (Non-Af Amer) POC Glucose (mg/dL) Random Glucose Calcium Phosphorus Magnesium Total Bilirubin AST ALT Alkaline Phosphatase Lactate Dehydrogenase 1378 H C-Reactive Protein 178.50 H Total Protein Albumin Globulin Albumin/Globulin Ratio Procalcitonin 23.66 H Arterial Blood Potassium Random Vancomycin Ur L.pneumophila Ag Negative Mycoplasma pneumon IgM Negative 10/18/17 10/19/17 10/19/17 17:38 00:10 05:14 WBC RBC Hgb Hct MCV MCH MCHC RDW Plt Count MPV Neut % (Auto) Lymph % (Auto) [place] % (Auto) Eos % (Auto) Baso % (Auto) Neut # (Auto) Lymph # (Auto) [place] # (Auto) Eos # (Auto) Baso # (Auto) Neutrophils % (Manual) Band Neutrophils % Lymphocytes % (Manual) Monocytes % (Manual) Eosinophils % (Manual) Nucleated RBC % Platelet Estimate Large Platelets Hypochromasia (manual) Poikilocytosis (manual Anisocytosis (manual) ESR PT INR APTT Puncture Site pCO2 pO2 HCO3 ABG pH ABG Total CO2 ABG O2 Saturation ABG Base Excess ABG Hemoglobin ABG Carboxyhemoglobin POC ABG HHb (Measured) ABG Methemoglobin Philippe Test ABG Potassium A-a O2 Difference Respiratory Index Hgb O2 Saturation Sodium Chloride Glucose Lactate Vent Mode Mechanical Rate FiO2 Tidal Volume PEEP Potassium Carbon Dioxide Anion Gap BUN Creatinine Est GFR ( Amer) Est GFR (Non-Af Amer) POC Glucose (mg/dL) 247 H 251 H 237 H Random Glucose Calcium Phosphorus Magnesium Total Bilirubin AST ALT Alkaline Phosphatase Lactate Dehydrogenase C-Reactive Protein Total Protein Albumin Globulin Albumin/Globulin Ratio Procalcitonin Arterial Blood Potassium Random Vancomycin Ur L.pneumophila Ag Mycoplasma pneumon IgM 10/19/17 10/19/17 10/19/17 05:25 05:39 05:39 WBC 19.4 H RBC 3.26 L Hgb 9.0 L Hct 28.6 L MCV 87.6 D MCH 27.7 MCHC 31.6 L RDW 18.3 H Plt Count 43 L MPV 11.4 Neut % (Auto) 79.7 H Lymph % (Auto) 9.3 L [place] % (Auto) 8.6 Eos % (Auto) 2.2 Baso % (Auto) 0.2 Neut # (Auto) 15.4 H Lymph # (Auto) 1.8 [place] # (Auto) 1.7 H Eos # (Auto) 0.4 Baso # (Auto) 0.0 Neutrophils % (Manual) 83 H Band Neutrophils % 2 Lymphocytes % (Manual) 3 L Monocytes % (Manual) 7 Eosinophils % (Manual) 5 H Nucleated RBC % 4 H Platelet Estimate Normal Large Platelets Present Hypochromasia (manual) Slight Poikilocytosis (manual Slight Anisocytosis (manual) Slight ESR PT INR APTT Puncture Site Gertrude pCO2 52 H pO2 72 L HCO3 23.5 ABG pH 7.29 L ABG Total CO2 26.6 ABG O2 Saturation 96.4 ABG Base Excess -1.8 ABG Hemoglobin 9.3 L ABG Carboxyhemoglobin 2.4 H POC ABG HHb (Measured) 3.5 ABG Methemoglobin 0.7 Philippe Test Na ABG Potassium A-a O2 Difference 505.0 Respiratory Index 7.0 Hgb O2 Saturation 93.4 L Sodium 136 Chloride 96 L Glucose Lactate Vent Mode Prvc Mechanical Rate 30 FiO2 90.0 Tidal Volume 550 PEEP 5 Potassium 4.3 Carbon Dioxide 29 Anion Gap 16 BUN 58 H Creatinine 5.3 H Est GFR ( Amer) 14 Est GFR (Non-Af Amer) 12 POC Glucose (mg/dL) Random Glucose 241 H Calcium 8.3 L Phosphorus 7.0 H Magnesium 2.1 Total Bilirubin 1.4 H AST 44 ALT 48 Alkaline Phosphatase 135 H Lactate Dehydrogenase C-Reactive Protein Total Protein 6.2 L Albumin 3.3 L Globulin 2.9 Albumin/Globulin Ratio 1.1 Procalcitonin Arterial Blood Potassium Random Vancomycin Ur L.pneumophila Ag Mycoplasma pneumon IgM 10/19/17 10/19/17 10/19/17 05:39 10:39 11:27 WBC RBC Hgb Hct MCV MCH MCHC RDW Plt Count MPV Neut % (Auto) Lymph % (Auto) [place] % (Auto) Eos % (Auto) Baso % (Auto) Neut # (Auto) Lymph # (Auto) [place] # (Auto) Eos # (Auto) Baso # (Auto) Neutrophils % (Manual) Band Neutrophils % Lymphocytes % (Manual) Monocytes % (Manual) Eosinophils % (Manual) Nucleated RBC % Platelet Estimate Large Platelets Hypochromasia (manual) Poikilocytosis (manual Anisocytosis (manual) ESR PT 15.1 H INR 1.4 APTT 62 H D Puncture Site pCO2 pO2 HCO3 ABG pH ABG Total CO2 ABG O2 Saturation ABG Base Excess ABG Hemoglobin ABG Carboxyhemoglobin POC ABG HHb (Measured) ABG Methemoglobin Philippe Test ABG Potassium A-a O2 Difference Respiratory Index Hgb O2 Saturation Sodium Chloride Glucose Lactate Vent Mode Mechanical Rate FiO2 Tidal Volume PEEP Potassium Carbon Dioxide Anion Gap BUN Creatinine Est GFR ( Amer) Est GFR (Non-Af Amer) POC Glucose (mg/dL) 208 H Random Glucose Calcium Phosphorus Magnesium Total Bilirubin AST ALT Alkaline Phosphatase Lactate Dehydrogenase C-Reactive Protein Total Protein Albumin Globulin Albumin/Globulin Ratio Procalcitonin Arterial Blood Potassium Random Vancomycin 15.1 Ur L.pneumophila Ag Mycoplasma pneumon IgM Fingerstick Blood Sugar Results: 208 Review of Systems - Review of Systems Systems not reviewed;Unavailable: Intubated All systems: reviewed and no additional remarkable complaints except (as per HPI ) Critical Care Progress Note - Ventilator Checklist Head of Bed 30 Degrees: Yes Daily Sedation Vacation: Yes Daily Assessment of Readiness to Wean: Yes Daily Spontaneous Breathing Trial: Yes PUD Prophalyxis: Yes DVT Prophylaxis: No (PTT is elevated) Oral Care with Chlorhexidine Gluconate {CHG}: Yes - Vent Settings MODE:: PRVC TIDAL VOLUME:: 330 RESP RATE:: 30 FIO2:: 90 PEEP:: 14 - Extremities/Vascular Does the Patient have a Central Venous Catheter?: Yes Insertion Site: Femoral Vein Does the Patient need a Central Venous Catheter?: Yes Does the Patient have a Campbell Catheter?: No (anuric for 48 hours) - Prophylaxis GI Prophylaxis GI: PPI Assessment/Plan - Assessment and Plan (Free Text) Assessment: This is a 47 year old male with PMH of COPD, DM, HTN, CKD on dialysis, chronic liver disease and DVT s/p IVC filter, splenectomy who presented to the ED c/o SOB, "just like usual," and was admitted for mild respiratory distress with wheezes, retractions and hyperkalemia. Pt was managed on the medical floor until [employer] was called on 10/15 due to no pulse. Pt was noted to be in asystole and was subsequently given CPR for 15-20 min. Pt was intubated at that time for airway control. Pt was transferred to the ICU for management after ROSC was achieved. ABG showed pH 6.97, PCO2 130. Code freeze was initiated for 24 hours, and pt was rewarmed afterwards. During rewarming, pt was noted to become hypotensive (MAP in the low 50s/high 40s) and was placed on a Levophed gtt to maintain MAP above 60 mmHg. Pt was subsequently placed on levophed gtt, phenylephrine gtt and vasopressin gtt in order to maintain a MAP>60. Pt is currently on Levophed gtt, Nimbex gtt and Precedex gtt. Neuro: - Monitor for mental status changes - Pt is on Precedex gtt for sedation and imbex gtt for paralysis - use ativan 2 mg ivp q4h PRN for seizures - Keppra 500 mg BID through OGT for seizure prophylaxis - Repeat EEG (10/18) shows moderate voltage delta activities seen in bilateral cortical leads. No focal slowing or paroxysmal activity is noted. Some movement artifact and loose electrode artifacts are noted on the left frontal leads. These compared to the previous studies; however, cerebral activities from theta- to-delta activities noted. No burst suppression noted. The current study does not meet the criteria of bilateral cerebral silence. - f/u repeat head CT - f/u neuro recs Cardio: - Maintain MAP>60mmHg - continue levophed gtt - continue to monitor BP via arterial line - f/u cardiology recs Pulm: - CXR (10/19) shows worsening pulmonary edema with near complete opacification of the lungs. - continue antibiotics as per ID - LTVV, high PEEP, maintain plateau pressure<30, permissive hypercapnea as per [employer] protocol - PRVC (330/30/90%/14); daily ventilation weaning - HoB >30 degrees - oral care - maintain spo2>90% - f/u ABG GI: - Abd/Chest/pelv Ct (10/15) shows scattered foci of airspace consolidation more prominent at the mid and lower portion of the lungs. Findings are nonspecific. Cardiomegaly. Re-demonstration of mediastinal lymphadenopathy. Acute fracture at the anterior aspect of the left 5th rib. No significant interval change in the abdomen and pelvis is noted since the previous exam. No evidence of acute pathology in the abdomen and pelvis. - Protonix for GI ppx - Nepro (due to ESRD) feeds through OGT Renal: - maintain euvolemia - jeff on ckd; ESRD on dialysis - Dialysis (T--); Pt was diallyzed earlier today (2L were removed) - replete electrolytes as needed - relative metabolic acidosis; continue sodium bicarb po - f/u ABG - f/u nephro recs Endo: - maintain euglycemia - ISS medium - accucheck q1h Heme: - H/H stable - thrombocytopenia at 43; no active bleeding, no need for transfusion at this time - (10/17) fibrinogen was was, FDP is greater than 40; likely not DIC - Pt last received Eliquis (10/15), PTT is currently elevated at 67. No anticoagulation at this time ID: - pneumonia; leukocytosis is downtrending - continue merrem, doxycycline as per ID - f/u repeat procalcitonin tomorrow - pancuture is negative PPX: Protonix for GI; contonue to hold off of vte ppx as PTT is elevated Dispo: Continue ICU care; prognosis is poor Case was reviewed and discussed with attending physician, Dr. Luu <Santino Luu - Last Filed: 10/19/17 16:16> CCU Objective - Vital Signs / Intake & Output Vital Signs (Last 4 hours): Vital Signs Temp Pulse Pulse Resp BP BP BP 10/19/17 15:01 105 H 97/44 L 10/19/17 15:00 107 H 94/54 L 10/19/17 14:31 110 H 101/46 L 10/19/17 14:30 110 H 10/19/17 14:01 116 H 105/48 L 10/19/17 14:00 118 H 105/48 L 10/19/17 13:40 116 H 113/55 L 10/19/17 13:35 117 H 114/54 L 10/19/17 13:30 116 H 10/19/17 13:20 118 H 118/59 L 10/19/17 13:10 98 F 118 H 20 128/63 10/19/17 13:05 121 H 128/63 10/19/17 13:00 122 H 10/19/17 12:50 119 H 127/65 10/19/17 12:40 150/73 10/19/17 12:35 125 H 150/73 10/19/17 12:30 124 H 10/19/17 12:21 123 H 157/77 H 10/19/17 12:20 138/69 10/19/17 12:13 127 H 191/90 H 10/19/17 12:10 157/77 H 10/19/17 12:00 98.5 F 107 H 31 H 191/90 H 10/19/17 11:50 103 H 111/70 Pulse Ox 10/19/17 15:01 94 L 10/19/17 15:00 92 L 10/19/17 14:31 93 L 10/19/17 14:30 91 L 10/19/17 14:01 93 L 10/19/17 14:00 92 L 10/19/17 13:40 94 L 10/19/17 13:35 93 L 10/19/17 13:30 93 L 10/19/17 13:20 94 L 10/19/17 13:10 94 L 10/19/17 13:05 94 L 10/19/17 13:00 94 L 10/19/17 12:50 96 10/19/17 12:40 10/19/17 12:35 95 10/19/17 12:30 92 L 10/19/17 12:21 92 L 10/19/17 12:20 10/19/17 12:13 94 L 10/19/17 12:10 10/19/17 12:00 92 L 10/19/17 11:50 92 L Intake and Output (Last 8hrs): Intake & Output 10/19/17 10/19/17 10/19/17 06:59 14:59 22:59 Intake Total 1361.8 805.4 92.4 Output Total 0 Balance 1361.8 805.4 92.4 Intake: IV 80.2 0 Intake, IV Amount 831.6 635.4 92.4 Left Distal Port Femoral 169.2 120.2 18.8 Left Proximal Port 595.8 463.4 66.2 Left TLC medial port 66.6 51.8 7.4 Tube Feeding 450 50 Other 120 Output: Urine 0 Urethral (Campbell) 0 - Medications Active Medications: Active Medications Generic Name Dose Route Start Last Admin Trade Name Freq PRN Reason Stop Dose Admin Albuterol/Ipratropium 3 ml 10/15/17 14:00 10/19/17 13:23 Duoneb 3 Mg/0.5 Mg (3 Ml) Ud INH 3 ml RQ6 ANABELLA Administration Artificial Tears 0 gm 10/18/17 16:00 10/19/17 11:40 Lacri-Lube OU 3.5 gm Q4 ANABELLA Administration Calcium Acetate 667 mg 10/18/17 14:00 10/19/17 13:47 Phoslo GT 667 mg TID ANABELLA Administration Dextrose 0 ml 10/13/17 10:07 Dextrose 50% Inj IV STAT PRN Hypoglycemia Protocol Protocol Dextrose 0 gm 10/13/17 10:07 Glutose 15 PO ONCE PRN Hypoglycemia Protocol Protocol Dextrose 0 ml 10/15/17 23:36 Dextrose 50% Inj IV STAT PRN Hypoglycemia Protocol Protocol Dextrose 0 gm 10/15/17 23:36 Glutose 15 PO ONCE PRN Hypoglycemia Protocol Protocol Glucagon 0 mg 10/13/17 10:07 Glucagen Diagnostic Kit IM STAT PRN Hypoglycemia Protocol Protocol Glucagon 0 mg 10/15/17 23:36 Glucagen Diagnostic Kit IM STAT PRN Hypoglycemia Protocol Protocol Heparin Sodium (Porcine) 5,000 units 10/19/17 10:30 10/19/17 11:34 Heparin SC Not Given Q12H ANABELLA Doxycycline Hyclate 100 mg/ 100 mls @ 100 mls/hr 10/15/17 18:00 10/19/17 05: 22 Sodium Chloride IVPB 100 mls/hr Q12H ANABELLA Administration Protocol Vasopressin 40 units/ Sodium 40 mls @ 0.6 mls/hr 10/17/17 19:00 10/18/17 19: 00 Chloride IV Not Given .Q24H ANABELLA Protocol 0.01 UNITS/MIN Norepinephrine Bitartrate 16 500 mls @ 7.5 mls/hr 10/17/17 23:50 10/19/17 03: 15 mg/ Sodium Chloride IV 12 mcg/min .Q24H PRN 22.5 mls/hr TITRATE PER MD ORDER Titration Protocol 4 MCG/MIN Phenylephrine HCl 60 mg/ 500 mls @ 10 mls/hr 10/17/17 23:52 10/18/17 15:00 Sodium Chloride IV 0 mcg/min .Q24H PRN 0 mls/hr TITRATE PER MD ORDER Titration Protocol 20 MCG/MIN Meropenem 500 mg/ Sodium 100 mls @ 100 mls/hr 10/18/17 12:30 10/19/17 13:30 Chloride IVPB 100 mls/hr Q8H ANABELLA Administration Protocol Cisatracurium Besylate 100 mg/ 260 mls @ 67.93 mls/hr 10/19/17 11:15 15:22 Dextrose IV Not Given .Q3H50M ANABELLA Protocol 3 MCG/KG/MIN Dexmedetomidine HCl 200 mcg/ 50 mls @ 7.25 mls/hr 10/19/17 11:14 10/19/17 12: 11 Sodium Chloride IV 0.2 mcg/kg/hr TITR PRN 7.25 mls/hr Sedation Administration Protocol 0.2 MCG/KG/HR Insulin Human Regular 0 unit 10/15/17 18:00 10/19/17 11:40 Novolin R SC 3 units Q6H ANABELLA Administration Protocol Levetiracetam 500 mg 10/19/17 10:00 08/02/18 10:23 Keppra PO 500 mg BID ANABELLA Administration Lorazepam 1 mg 10/17/17 22:02 10/19/17 02:30 Ativan IVP 1 mg Q4H PRN Administration Agitation Pantoprazole Sodium 40 mg 10/16/17 01:00 10/19/17 02:00 Protonix Inj IVP 40 mg Q12H ANABELLA Administration Rosuvastatin Calcium 10 mg 10/18/17 22:00 10/18/17 22:00 Crestor PO 10 mg HS ANABELLA Administration Sodium Bicarbonate 650 mg 10/15/17 10:00 10/19/17 13:47 Sodium Bicarbonate Tab PO 650 mg TID ANABELLA Administration - Patient Studies Lab Studies: Microbiology Studies 10/18/17 14:11 Blood Culture - Preliminary Blood-Venous NO GROWTH AFTER 24 HOURS 10/18/17 14:11 Blood Culture - Preliminary Blood-Venous NO GROWTH AFTER 24 HOURS 10/18/17 14:11 Gram Stain - Final Trachasp Sputum Culture - Preliminary No growth. 10/15/17 16:40 Blood Culture - Preliminary Blood-Venous NO GROWTH AFTER 3 DAYS 10/15/17 16:00 Blood Culture - Preliminary Blood-Venous NO GROWTH AFTER 3 DAYS Lab Studies 10/19/17 10/19/17 10/19/17 Range/Units 14:24 13:44 11:27 WBC (4.8-10.8) K/uL RBC (4.40-5.90) Mil/uL Hgb (12.0-18.0) g/dL Hct (35.0-51.0) % MCV (80.0-94.0) fL MCH (27.0-31.0) pg MCHC (33.0-37.0) g/dL RDW (11.5-14.5) % Plt Count (130-400) K/uL MPV (7.2-11.7) fL Neut % (Auto) (50.0-75.0) % Lymph % (Auto) (20.0-40.0) % [place] % (Auto) (0.0-10.0) % Eos % (Auto) (0.0-4.0) % Baso % (Auto) (0.0-2.0) % Neut # (Auto) (1.8-7.0) K/uL Lymph # (Auto) (1.0-4.3) K/uL [place] # (Auto) (0.0-0.8) K/uL Eos # (Auto) (0.0-0.7) K/uL Baso # (Auto) (0.0-0.2) K/uL Neutrophils % (Manual) (50-75) % Band Neutrophils % (0-2) % Lymphocytes % (Manual) (20-40) % Monocytes % (Manual) (0-10) % Eosinophils % (Manual) (0-4) % Nucleated RBC % (0-0) % Platelet Estimate (NORMAL) Large Platelets Hypochromasia (manual) Poikilocytosis (manual Anisocytosis (manual) PT (9.7-12.2) SECONDS INR APTT (21-34) SECONDS Puncture Site [place] A line pCO2 87 H* 104 H* (35-45) mm/Hg pO2 74 L 89 (80-100) mm/Hg HCO3 22.1 22.4 (21-28) mmol/L ABG pH 7.12 L* 7.05 L* (7.35-7.45) ABG Total CO2 31.0 H 32.0 H (22-28) mmol/L ABG O2 Saturation 94.5 L 96.5 (95-98) % ABG Base Excess -3.3 L -3.2 L (-2.0-3.0) mmol/L ABG Hemoglobin 10.0 L (11.7-17.4) g/dL ABG Carboxyhemoglobin 2.8 H (0.5-1.5) % POC ABG HHb (Measured) 3.4 (0.0-5.0) % ABG Methemoglobin 1.1 (0.0-3.0) % Philippe Test Na Na ABG Potassium 3.7 (3.6-5.2) mmol/L A-a O2 Difference 388.0 423.0 mm/Hg Respiratory Index 5.2 4.8 Hgb O2 Saturation 92.7 L (95.0-98.0) % Glucose 196 H (75-110) mg/dl Lactate 0.9 (0.7-2.1) mmol/L Vent Mode Prvc Prvc Mechanical Rate 30 FiO2 80.0 90.0 % Tidal Volume 390 330 PEEP 12 14 Crit Value Called To Dr.wettunny Renee Crit Value Called By Husam franco,cupola liner helper Crit Value Read Back Y Y Blood Gas Notified Time 1430 1350 Sodium 139.0 (132-148) mmol/L Potassium (3.6-5.2) mmol/L Chloride 104.0 (98-107) mmol/L Carbon Dioxide (22-30) mmol/L Anion Gap (10-20) BUN (9-20) mg/dL Creatinine (0.8-1.5) mg/dL Est GFR ( Amer) Est GFR (Non-Af Amer) POC Glucose (mg/dL) 208 H (65-110) mg/dL Random Glucose (75-110) mg/dL Calcium (8.6-10.4) mg/dl Phosphorus (2.5-4.5) mg/dL Magnesium (1.6-2.3) mg/dL Total Bilirubin (0.2-1.3) mg/dL AST (17-59) U/L ALT (21-72) U/L Alkaline Phosphatase (38-126) U/L Total Protein (6.3-8.3) g/dL Albumin (3.5-5.0) g/dL Globulin (2.2-3.9) gm/dL Albumin/Globulin Ratio (1.0-2.1) Procalcitonin (0.19-0.49) NG/ML Arterial Blood Potassium 3.7 (3.6-5.2) mmol/L Random Vancomycin ug/mL Ur L.pneumophila Ag (NEGATIVE) Mycoplasma pneumon IgM (NEGATIVE) 10/19/17 10/19/17 10/19/17 Range/Units 10:39 05:39 05:39 WBC (4.8-10.8) K/uL RBC (4.40-5.90) Mil/uL Hgb (12.0-18.0) g/dL Hct (35.0-51.0) % MCV (80.0-94.0) fL MCH (27.0-31.0) pg MCHC (33.0-37.0) g/dL RDW (11.5-14.5) % Plt Count (130-400) K/uL MPV (7.2-11.7) fL Neut % (Auto) (50.0-75.0) % Lymph % (Auto) (20.0-40.0) % [place] % (Auto) (0.0-10.0) % Eos % (Auto) (0.0-4.0) % Baso % (Auto) (0.0-2.0) % Neut # (Auto) (1.8-7.0) K/uL Lymph # (Auto) (1.0-4.3) K/uL [place] # (Auto) (0.0-0.8) K/uL Eos # (Auto) (0.0-0.7) K/uL Baso # (Auto) (0.0-0.2) K/uL Neutrophils % (Manual) (50-75) % Band Neutrophils % (0-2) % Lymphocytes % (Manual) (20-40) % Monocytes % (Manual) (0-10) % Eosinophils % (Manual) (0-4) % Nucleated RBC % (0-0) % Platelet Estimate (NORMAL) Large Platelets Hypochromasia (manual) Poikilocytosis (manual Anisocytosis (manual) PT 15.1 H (9.7-12.2) SECONDS INR 1.4 APTT 62 H D (21-34) SECONDS Puncture Site pCO2 (35-45) mm/Hg pO2 (80-100) mm/Hg HCO3 (21-28) mmol/L ABG pH (7.35-7.45) ABG Total CO2 (22-28) mmol/L ABG O2 Saturation (95-98) % ABG Base Excess (-2.0-3.0) mmol/L ABG Hemoglobin (11.7-17.4) g/dL ABG Carboxyhemoglobin (0.5-1.5) % POC ABG HHb (Measured) (0.0-5.0) % ABG Methemoglobin (0.0-3.0) % Philippe Test ABG Potassium (3.6-5.2) mmol/L A-a O2 Difference mm/Hg Respiratory Index Hgb O2 Saturation (95.0-98.0) % Glucose (75-110) mg/dl Lactate (0.7-2.1) mmol/L Vent Mode Mechanical Rate FiO2 % Tidal Volume PEEP Crit Value Called To Crit Value Called By Crit Value Read Back Blood Gas Notified Time Sodium 136 (132-148) mmol/L Potassium 4.3 (3.6-5.2) mmol/L Chloride 96 L (98-107) mmol/L Carbon Dioxide 29 (22-30) mmol/L Anion Gap 16 (10-20) BUN 58 H (9-20) mg/dL Creatinine 5.3 H (0.8-1.5) mg/dL Est GFR ( Amer) 14 Est GFR (Non-Af Amer) 12 POC Glucose (mg/dL) (65-110) mg/dL Random Glucose 241 H (75-110) mg/dL Calcium 8.3 L (8.6-10.4) mg/dl Phosphorus 7.0 H (2.5-4.5) mg/dL Magnesium 2.1 (1.6-2.3) mg/dL Total Bilirubin 1.4 H (0.2-1.3) mg/dL AST 44 (17-59) U/L ALT 48 (21-72) U/L Alkaline Phosphatase 135 H (38-126) U/L Total Protein 6.2 L (6.3-8.3) g/dL Albumin 3.3 L (3.5-5.0) g/dL Globulin 2.9 (2.2-3.9) gm/dL Albumin/Globulin Ratio 1.1 (1.0-2.1) Procalcitonin (0.19-0.49) NG/ML Arterial Blood Potassium (3.6-5.2) mmol/L Random Vancomycin 15.1 ug/mL Ur L.pneumophila Ag (NEGATIVE) Mycoplasma pneumon IgM (NEGATIVE) 10/19/17 10/19/17 10/19/17 Range/Units 05:39 05:25 05:14 WBC 19.4 H (4.8-10.8) K/uL RBC 3.26 L (4.40-5.90) Mil/uL Hgb 9.0 L (12.0-18.0) g/dL Hct 28.6 L (35.0-51.0) % MCV 87.6 D (80.0-94.0) fL MCH 27.7 (27.0-31.0) pg MCHC 31.6 L (33.0-37.0) g/dL RDW 18.3 H (11.5-14.5) % Plt Count 43 L (130-400) K/uL MPV 11.4 (7.2-11.7) fL Neut % (Auto) 79.7 H (50.0-75.0) % Lymph % (Auto) 9.3 L (20.0-40.0) % [place] % (Auto) 8.6 (0.0-10.0) % Eos % (Auto) 2.2 (0.0-4.0) % Baso % (Auto) 0.2 (0.0-2.0) % Neut # (Auto) 15.4 H (1.8-7.0) K/uL Lymph # (Auto) 1.8 (1.0-4.3) K/uL [place] # (Auto) 1.7 H (0.0-0.8) K/uL Eos # (Auto) 0.4 (0.0-0.7) K/uL Baso # (Auto) 0.0 (0.0-0.2) K/uL Neutrophils % (Manual) 83 H (50-75) % Band Neutrophils % 2 (0-2) % Lymphocytes % (Manual) 3 L (20-40) % Monocytes % (Manual) 7 (0-10) % Eosinophils % (Manual) 5 H (0-4) % Nucleated RBC % 4 H (0-0) % Platelet Estimate Normal (NORMAL) Large Platelets Present Hypochromasia (manual) Slight Poikilocytosis (manual Slight Anisocytosis (manual) Slight PT (9.7-12.2) SECONDS INR APTT (21-34) SECONDS Puncture Site [place] pCO2 52 H (35-45) mm/Hg pO2 72 L (80-100) mm/Hg HCO3 23.5 (21-28) mmol/L ABG pH 7.29 L (7.35-7.45) ABG Total CO2 26.6 (22-28) mmol/L ABG O2 Saturation 96.4 (95-98) % ABG Base Excess -1.8 (-2.0-3.0) mmol/L ABG Hemoglobin 9.3 L (11.7-17.4) g/dL ABG Carboxyhemoglobin 2.4 H (0.5-1.5) % POC ABG HHb (Measured) 3.5 (0.0-5.0) % ABG Methemoglobin 0.7 (0.0-3.0) % Philippe Test Na ABG Potassium (3.6-5.2) mmol/L A-a O2 Difference 505.0 mm/Hg Respiratory Index 7.0 Hgb O2 Saturation 93.4 L (95.0-98.0) % Glucose (75-110) mg/dl Lactate (0.7-2.1) mmol/L Vent Mode Prvc Mechanical Rate 30 FiO2 90.0 % Tidal Volume 550 PEEP 5 Crit Value Called To Crit Value Called By Crit Value Read Back Blood Gas Notified Time Sodium (132-148) mmol/L Potassium (3.6-5.2) mmol/L Chloride (98-107) mmol/L Carbon Dioxide (22-30) mmol/L Anion Gap (10-20) BUN (9-20) mg/dL Creatinine (0.8-1.5) mg/dL Est GFR ( Amer) Est GFR (Non-Af Amer) POC Glucose (mg/dL) 237 H (65-110) mg/dL Random Glucose (75-110) mg/dL Calcium (8.6-10.4) mg/dl Phosphorus (2.5-4.5) mg/dL Magnesium (1.6-2.3) mg/dL Total Bilirubin (0.2-1.3) mg/dL AST (17-59) U/L ALT (21-72) U/L Alkaline Phosphatase (38-126) U/L Total Protein (6.3-8.3) g/dL Albumin (3.5-5.0) g/dL Globulin (2.2-3.9) gm/dL Albumin/Globulin Ratio (1.0-2.1) Procalcitonin (0.19-0.49) NG/ML Arterial Blood Potassium (3.6-5.2) mmol/L Random Vancomycin ug/mL Ur L.pneumophila Ag (NEGATIVE) Mycoplasma pneumon IgM (NEGATIVE) 10/19/17 10/18/17 10/18/17 Range/Units 00:10 17:38 14:11 WBC (4.8-10.8) K/uL RBC (4.40-5.90) Mil/uL Hgb (12.0-18.0) g/dL Hct (35.0-51.0) % MCV (80.0-94.0) fL MCH (27.0-31.0) pg MCHC (33.0-37.0) g/dL RDW (11.5-14.5) % Plt Count (130-400) K/uL MPV (7.2-11.7) fL Neut % (Auto) (50.0-75.0) % Lymph % (Auto) (20.0-40.0) % [place] % (Auto) (0.0-10.0) % Eos % (Auto) (0.0-4.0) % Baso % (Auto) (0.0-2.0) % Neut # (Auto) (1.8-7.0) K/uL Lymph # (Auto) (1.0-4.3) K/uL [place] # (Auto) (0.0-0.8) K/uL Eos # (Auto) (0.0-0.7) K/uL Baso # (Auto) (0.0-0.2) K/uL Neutrophils % (Manual) (50-75) % Band Neutrophils % (0-2) % Lymphocytes % (Manual) (20-40) % Monocytes % (Manual) (0-10) % Eosinophils % (Manual) (0-4) % Nucleated RBC % (0-0) % Platelet Estimate (NORMAL) Large Platelets Hypochromasia (manual) Poikilocytosis (manual Anisocytosis (manual) PT (9.7-12.2) SECONDS INR APTT (21-34) SECONDS Puncture Site pCO2 (35-45) mm/Hg pO2 (80-100) mm/Hg HCO3 (21-28) mmol/L ABG pH (7.35-7.45) ABG Total CO2 (22-28) mmol/L ABG O2 Saturation (95-98) % ABG Base Excess (-2.0-3.0) mmol/L ABG Hemoglobin (11.7-17.4) g/dL ABG Carboxyhemoglobin (0.5-1.5) % POC ABG HHb (Measured) (0.0-5.0) % ABG Methemoglobin (0.0-3.0) % Philippe Test ABG Potassium (3.6-5.2) mmol/L A-a O2 Difference mm/Hg Respiratory Index Hgb O2 Saturation (95.0-98.0) % Glucose (75-110) mg/dl Lactate (0.7-2.1) mmol/L Vent Mode Mechanical Rate FiO2 % Tidal Volume PEEP Crit Value Called To Crit Value Called By Crit Value Read Back Blood Gas Notified Time Sodium (132-148) mmol/L Potassium (3.6-5.2) mmol/L Chloride (98-107) mmol/L Carbon Dioxide (22-30) mmol/L Anion Gap (10-20) BUN (9-20) mg/dL Creatinine (0.8-1.5) mg/dL Est GFR ( Amer) Est GFR (Non-Af Amer) POC Glucose (mg/dL) 251 H 247 H (65-110) mg/dL Random Glucose (75-110) mg/dL Calcium (8.6-10.4) mg/dl Phosphorus (2.5-4.5) mg/dL Magnesium (1.6-2.3) mg/dL Total Bilirubin (0.2-1.3) mg/dL AST (17-59) U/L ALT (21-72) U/L Alkaline Phosphatase (38-126) U/L Total Protein (6.3-8.3) g/dL Albumin (3.5-5.0) g/dL Globulin (2.2-3.9) gm/dL Albumin/Globulin Ratio (1.0-2.1) Procalcitonin (0.19-0.49) NG/ML Arterial Blood Potassium (3.6-5.2) mmol/L Random Vancomycin ug/mL Ur L.pneumophila Ag Negative (NEGATIVE) Mycoplasma pneumon IgM Negative (NEGATIVE) 10/18/17 Range/Units 14:11 WBC (4.8-10.8) K/uL RBC (4.40-5.90) Mil/uL Hgb (12.0-18.0) g/dL Hct (35.0-51.0) % MCV (80.0-94.0) fL MCH (27.0-31.0) pg MCHC (33.0-37.0) g/dL RDW (11.5-14.5) % Plt Count (130-400) K/uL MPV (7.2-11.7) fL Neut % (Auto) (50.0-75.0) % Lymph % (Auto) (20.0-40.0) % [place] % (Auto) (0.0-10.0) % Eos % (Auto) (0.0-4.0) % Baso % (Auto) (0.0-2.0) % Neut # (Auto) (1.8-7.0) K/uL Lymph # (Auto) (1.0-4.3) K/uL [place] # (Auto) (0.0-0.8) K/uL Eos # (Auto) (0.0-0.7) K/uL Baso # (Auto) (0.0-0.2) K/uL Neutrophils % (Manual) (50-75) % Band Neutrophils % (0-2) % Lymphocytes % (Manual) (20-40) % Monocytes % (Manual) (0-10) % Eosinophils % (Manual) (0-4) % Nucleated RBC % (0-0) % Platelet Estimate (NORMAL) Large Platelets Hypochromasia (manual) Poikilocytosis (manual Anisocytosis (manual) PT (9.7-12.2) SECONDS INR APTT (21-34) SECONDS Puncture Site pCO2 (35-45) mm/Hg pO2 (80-100) mm/Hg HCO3 (21-28) mmol/L ABG pH (7.35-7.45) ABG Total CO2 (22-28) mmol/L ABG O2 Saturation (95-98) % ABG Base Excess (-2.0-3.0) mmol/L ABG Hemoglobin (11.7-17.4) g/dL ABG Carboxyhemoglobin (0.5-1.5) % POC ABG HHb (Measured) (0.0-5.0) % ABG Methemoglobin (0.0-3.0) % Philippe Test ABG Potassium (3.6-5.2) mmol/L A-a O2 Difference mm/Hg Respiratory Index Hgb O2 Saturation (95.0-98.0) % Glucose (75-110) mg/dl Lactate (0.7-2.1) mmol/L Vent Mode Mechanical Rate FiO2 % Tidal Volume PEEP Crit Value Called To Crit Value Called By Crit Value Read Back Blood Gas Notified Time Sodium (132-148) mmol/L Potassium (3.6-5.2) mmol/L Chloride (98-107) mmol/L Carbon Dioxide (22-30) mmol/L Anion Gap (10-20) BUN (9-20) mg/dL Creatinine (0.8-1.5) mg/dL Est GFR ( Amer) Est GFR (Non-Af Amer) POC Glucose (mg/dL) (65-110) mg/dL Random Glucose (75-110) mg/dL Calcium (8.6-10.4) mg/dl Phosphorus (2.5-4.5) mg/dL Magnesium (1.6-2.3) mg/dL Total Bilirubin (0.2-1.3) mg/dL AST (17-59) U/L ALT (21-72) U/L Alkaline Phosphatase (38-126) U/L Total Protein (6.3-8.3) g/dL Albumin (3.5-5.0) g/dL Globulin (2.2-3.9) gm/dL Albumin/Globulin Ratio (1.0-2.1) Procalcitonin 23.66 H (0.19-0.49) NG/ML Arterial Blood Potassium (3.6-5.2) mmol/L Random Vancomycin ug/mL Ur L.pneumophila Ag (NEGATIVE) Mycoplasma pneumon IgM (NEGATIVE) Laboratory Results - last 24 hr 10/18/17 10/18/17 10/18/17 14:11 14:11 17:38 WBC RBC Hgb Hct MCV MCH MCHC RDW Plt Count MPV Neut % (Auto) Lymph % (Auto) [place] % (Auto) Eos % (Auto) Baso % (Auto) Neut # (Auto) Lymph # (Auto) [place] # (Auto) Eos # (Auto) Baso # (Auto) Neutrophils % (Manual) Band Neutrophils % Lymphocytes % (Manual) Monocytes % (Manual) Eosinophils % (Manual) Nucleated RBC % Platelet Estimate Large Platelets Hypochromasia (manual) Poikilocytosis (manual Anisocytosis (manual) PT INR APTT Puncture Site pCO2 pO2 HCO3 ABG pH ABG Total CO2 ABG O2 Saturation ABG Base Excess ABG Hemoglobin ABG Carboxyhemoglobin POC ABG HHb (Measured) ABG Methemoglobin Philippe Test ABG Potassium A-a O2 Difference Respiratory Index Hgb O2 Saturation Glucose Lactate Vent Mode Mechanical Rate FiO2 Tidal Volume PEEP Crit Value Called To Crit Value Called By Crit Value Read Back Blood Gas Notified Time Sodium Potassium Chloride Carbon Dioxide Anion Gap BUN Creatinine Est GFR ( Amer) Est GFR (Non-Af Amer) POC Glucose (mg/dL) 247 H Random Glucose Calcium Phosphorus Magnesium Total Bilirubin AST ALT Alkaline Phosphatase Total Protein Albumin Globulin Albumin/Globulin Ratio Procalcitonin 23.66 H Arterial Blood Potassium Random Vancomycin Ur L.pneumophila Ag Negative Mycoplasma pneumon IgM Negative 10/19/17 10/19/17 10/19/17 00:10 05:14 05:25 WBC RBC Hgb Hct MCV MCH MCHC RDW Plt Count MPV Neut % (Auto) Lymph % (Auto) [place] % (Auto) Eos % (Auto) Baso % (Auto) Neut # (Auto) Lymph # (Auto) [place] # (Auto) Eos # (Auto) Baso # (Auto) Neutrophils % (Manual) Band Neutrophils % Lymphocytes % (Manual) Monocytes % (Manual) Eosinophils % (Manual) Nucleated RBC % Platelet Estimate Large Platelets Hypochromasia (manual) Poikilocytosis (manual Anisocytosis (manual) PT INR APTT Puncture Site Gertrude pCO2 52 H pO2 72 L HCO3 23.5 ABG pH 7.29 L ABG Total CO2 26.6 ABG O2 Saturation 96.4 ABG Base Excess -1.8 ABG Hemoglobin 9.3 L ABG Carboxyhemoglobin 2.4 H POC ABG HHb (Measured) 3.5 ABG Methemoglobin 0.7 Philippe Test Na ABG Potassium A-a O2 Difference 505.0 Respiratory Index 7.0 Hgb O2 Saturation 93.4 L Glucose Lactate Vent Mode Prvc Mechanical Rate 30 FiO2 90.0 Tidal Volume 550 PEEP 5 Crit Value Called To Crit Value Called By Crit Value Read Back Blood Gas Notified Time Sodium Potassium Chloride Carbon Dioxide Anion Gap BUN Creatinine Est GFR ( Amer) Est GFR (Non-Af Amer) POC Glucose (mg/dL) 251 H 237 H Random Glucose Calcium Phosphorus Magnesium Total Bilirubin AST ALT Alkaline Phosphatase Total Protein Albumin Globulin Albumin/Globulin Ratio Procalcitonin Arterial Blood Potassium Random Vancomycin Ur L.pneumophila Ag Mycoplasma pneumon IgM 10/19/17 10/19/17 10/19/17 05:39 05:39 05:39 WBC 19.4 H RBC 3.26 L Hgb 9.0 L Hct 28.6 L MCV 87.6 D MCH 27.7 MCHC 31.6 L RDW 18.3 H Plt Count 43 L MPV 11.4 Neut % (Auto) 79.7 H Lymph % (Auto) 9.3 L [place] % (Auto) 8.6 Eos % (Auto) 2.2 Baso % (Auto) 0.2 Neut # (Auto) 15.4 H Lymph # (Auto) 1.8 [place] # (Auto) 1.7 H Eos # (Auto) 0.4 Baso # (Auto) 0.0 Neutrophils % (Manual) 83 H Band Neutrophils % 2 Lymphocytes % (Manual) 3 L Monocytes % (Manual) 7 Eosinophils % (Manual) 5 H Nucleated RBC % 4 H Platelet Estimate Normal Large Platelets Present Hypochromasia (manual) Slight Poikilocytosis (manual Slight Anisocytosis (manual) Slight PT INR APTT Puncture Site pCO2 pO2 HCO3 ABG pH ABG Total CO2 ABG O2 Saturation ABG Base Excess ABG Hemoglobin ABG Carboxyhemoglobin POC ABG HHb (Measured) ABG Methemoglobin Philippe Test ABG Potassium A-a O2 Difference Respiratory Index Hgb O2 Saturation Glucose Lactate Vent Mode Mechanical Rate FiO2 Tidal Volume PEEP Crit Value Called To Crit Value Called By Crit Value Read Back Blood Gas Notified Time Sodium 136 Potassium 4.3 Chloride 96 L Carbon Dioxide 29 Anion Gap 16 BUN 58 H Creatinine 5.3 H Est GFR ( Amer) 14 Est GFR (Non-Af Amer) 12 POC Glucose (mg/dL) Random Glucose 241 H Calcium 8.3 L Phosphorus 7.0 H Magnesium 2.1 Total Bilirubin 1.4 H AST 44 ALT 48 Alkaline Phosphatase 135 H Total Protein 6.2 L Albumin 3.3 L Globulin 2.9 Albumin/Globulin Ratio 1.1 Procalcitonin Arterial Blood Potassium Random Vancomycin 15.1 Ur L.pneumophila Ag Mycoplasma pneumon IgM 10/19/17 10/19/17 10/19/17 10:39 11:27 13:44 WBC RBC Hgb Hct MCV MCH MCHC RDW Plt Count MPV Neut % (Auto) Lymph % (Auto) [place] % (Auto) Eos % (Auto) Baso % (Auto) Neut # (Auto) Lymph # (Auto) [place] # (Auto) Eos # (Auto) Baso # (Auto) Neutrophils % (Manual) Band Neutrophils % Lymphocytes % (Manual) Monocytes % (Manual) Eosinophils % (Manual) Nucleated RBC % Platelet Estimate Large Platelets Hypochromasia (manual) Poikilocytosis (manual Anisocytosis (manual) PT 15.1 H INR 1.4 APTT 62 H D Puncture Site A line pCO2 104 H* pO2 89 HCO3 22.4 ABG pH 7.05 L* ABG Total CO2 32.0 H ABG O2 Saturation 96.5 ABG Base Excess -3.2 L ABG Hemoglobin 10.0 L ABG Carboxyhemoglobin 2.8 H POC ABG HHb (Measured) 3.4 ABG Methemoglobin 1.1 Philippe Test Na ABG Potassium A-a O2 Difference 423.0 Respiratory Index 4.8 Hgb O2 Saturation 92.7 L Glucose Lactate Vent Mode Prvc Mechanical Rate 30 FiO2 90.0 Tidal Volume 330 PEEP 14 Crit Value Called To Crit Value Called By Fantasma franco,cupola liner helper Crit Value Read Back Y Blood Gas Notified Time 1350 Sodium Potassium Chloride Carbon Dioxide Anion Gap BUN Creatinine Est GFR ( Amer) Est GFR (Non-Af Amer) POC Glucose (mg/dL) 208 H Random Glucose Calcium Phosphorus Magnesium Total Bilirubin AST ALT Alkaline Phosphatase Total Protein Albumin Globulin Albumin/Globulin Ratio Procalcitonin Arterial Blood Potassium Random Vancomycin Ur L.pneumophila Ag Mycoplasma pneumon IgM 10/19/17 14:24 WBC RBC Hgb Hct MCV MCH MCHC RDW Plt Count MPV Neut % (Auto) Lymph % (Auto) [place] % (Auto) Eos % (Auto) Baso % (Auto) Neut # (Auto) Lymph # (Auto) [place] # (Auto) Eos # (Auto) Baso # (Auto) Neutrophils % (Manual) Band Neutrophils % Lymphocytes % (Manual) Monocytes % (Manual) Eosinophils % (Manual) Nucleated RBC % Platelet Estimate Large Platelets Hypochromasia (manual) Poikilocytosis (manual Anisocytosis (manual) PT INR APTT Puncture Site [place] pCO2 87 H* pO2 74 L HCO3 22.1 ABG pH 7.12 L* ABG Total CO2 31.0 H ABG O2 Saturation 94.5 L ABG Base Excess -3.3 L ABG Hemoglobin ABG Carboxyhemoglobin POC ABG HHb (Measured) ABG Methemoglobin Philippe Test Na ABG Potassium 3.7 A-a O2 Difference 388.0 Respiratory Index 5.2 Hgb O2 Saturation Glucose 196 H Lactate 0.9 Vent Mode Prvc Mechanical Rate FiO2 80.0 Tidal Volume 390 PEEP 12 Crit Value Called To Crit Value Called By Husam franco Crit Value Read Back Y Blood Gas Notified Time 1430 Sodium 139.0 Potassium Chloride 104.0 Carbon Dioxide Anion Gap BUN Creatinine Est GFR ( Amer) Est GFR (Non-Af Amer) POC Glucose (mg/dL) Random Glucose Calcium Phosphorus Magnesium Total Bilirubin AST ALT Alkaline Phosphatase Total Protein Albumin Globulin Albumin/Globulin Ratio Procalcitonin Arterial Blood Potassium 3.7 Random Vancomycin Ur L.pneumophila Ag Mycoplasma pneumon IgM Attending/Attestation - Attestation I have personally seen and examined this patient.: Yes I have fully participated in the care of the patient.: Yes I have reviewed all pertinent clinical information: Yes Notes (Text): 10/19/17 15:45 I have seen and examined the patient. Medical records, lab studies, and imaging were reviewed by me and a management plan was formulated on multidisciplinary rounds with resident Dr. Leslie. I agree with their documented assessment and plan. Spoke with family about patient's poor prognosis. He is currently in ARDS on vent, started lung protective strategies. Started Keppra for clinical seizures. Patient has anoxic brain injury with seizures, portends a very poor prognosis. Getting dialysis for acute on chronic renal failure. Critical Care Time 35 minutes. Multi-disciplinary rounds were performed with house staff, nursing, speech therapy, respiratory therapy, pharmacy and nutrition with integrated input from the primary team/attending and other consulting services. The documented time is cumulative and includes review of patient data/exams/labs/chart review and examination of the patient on rounds and throughout the day; time is exclusive of any procedures or teaching time. 10/19/17 15:50
--- NOTE | 2017-10-19 12:57 | PN ---
Copied To: Keagan Schmidt MD Attending MD: Keagan Schmidt MD DATE: 10/19/2017 TIME OF EVALUATION: 07:14 a.m. NEUROLOGIC PROBLEM: Anoxic encephalopathy. PHYSICAL EXAMINATION: VITAL SIGNS: Blood pressure 155/76 with a mean arterial pressure of 102 with . Pulse rate 119, sinus tachy, on vent. The patient not on sedation and deeply comatose. Eyes are closed. On passively opening the eyelids, the pupils are nonreactive to light, they are 3.5 mm. No corneal reflex on either side. The corneal reflex, which was found yesterday on his right side is not present today. No gag on manipulating the endotracheal tube. Passive quadriplegia. No reflexes. Plantars are mute. No response to noxious stimuli. His repeat electroencephalogram shows moderate voltage delta activities seen in bilateral cortical leads. No focal slowing or paroxysmal activity is noted. Some movement artifact and loose electrode artifacts are noted on the left frontal leads. These compared to the previous studies; however, cerebral activities from [id number] activities noted. No burst suppression noted. The current study does not meet the criteria of bilateral cerebral silence. Continue the present management. The patient's condition has been discussed with his through labor delivery rn. She is aware of his physical illness. The overall prognosis is very poor. ADDENDUM: The recommended followup CT of the head was on hold due to medical instability. Kegaan Schmidt MD
[2017-10-19 13:48] LABS: ARTERIAL BLOOD GAS HCO3 22.4 mmol/L (21-28); ARTERIAL BLOOD GAS O2 SAT 96.5 % (95-98); ARTERIAL BLOOD GAS PCO2 104 mm/Hg (35-45); ARTERIAL BLOOD GAS PH 7.05 (7.35-7.45); ARTERIAL BLOOD GAS PO2 89 mm/Hg (80-100)
[2017-10-19 14:28] LABS: ARTERIAL BLOOD GAS HCO3 22.1 mmol/L (21-28); ARTERIAL BLOOD GAS O2 SAT 94.5 % (95-98); ARTERIAL BLOOD GAS PCO2 87 mm/Hg (35-45); ARTERIAL BLOOD GAS PH 7.12 (7.35-7.45); ARTERIAL BLOOD GAS PO2 74 mm/Hg (80-100)
[2017-10-19 16:01] LABS: ARTERIAL BLOOD GAS HEMOGLOBIN 12.9 g/dL (11.7-17.4); ARTERIAL BLOOD GAS O2 SAT 94.6 % (95-98); ARTERIAL BLOOD GAS PCO2 72 mm/Hg (35-45); ARTERIAL BLOOD GAS PH 7.19 (7.35-7.45); ARTERIAL BLOOD GAS PO2 68 mm/Hg (80-100); ARTERIAL BLOOD GAS TCO2 29.7 mmol/L (22-28)
[2017-10-19 16:12] VITALS: RESP 35; TEMP 98.7
[2017-10-19 18:02] LABS: ARTERIAL BLOOD GAS HCO3 24.7 mmol/L (21-28); ARTERIAL BLOOD GAS HEMOGLOBIN 9.4 g/dL (11.7-17.4); ARTERIAL BLOOD GAS O2 SAT 97.7 % (95-98); ARTERIAL BLOOD GAS PCO2 63 mm/Hg (35-45); ARTERIAL BLOOD GAS PH 7.25 (7.35-7.45); ARTERIAL BLOOD GAS PO2 80 mm/Hg (80-100); ARTERIAL BLOOD GAS TCO2 29.5 mmol/L (22-28)
[2017-10-19 20:09] VITALS: BP 109/47; PULSE 126; O2SAT 93
--- NOTE | 2017-10-19 20:32 | CP.PCM.PRO ---
Pronouncement of Note - Clinical Findings Physical Exam: No Response Verbal/Painful Stimuli, Absent Peripheral Pulses{ Carotid & Femoral}, Absent Heart & Breath Sounds, No Pupillary Light Reflex, No Corneal Reflex, Pupils Fixed & Dilated, Absence of Vital Signs - Pronouncement Time Time of Pronouncement of : 08:25 (pm) - Notifications Pronouncement Notifications: Family Notified (At bedside), Atending Notified ( by nursing) Client Service Administrator Notified: No - Autopsy Autopsy Requested: No - [place]: [id number] Additional Comments: Patient was terminally extubated and , family at the bedside.
--- NOTE | 2017-10-19 20:33 | CP.PCM.PN ---
Subjective - Date & Time of Evaluation Date of Evaluation: 10/19/17 Time of Evaluation: 20:33 Objective - Vital Signs/Intake and Output Vital Signs (last 24 hours): Temp Pulse Resp BP Pulse Ox 98.7 F 126 H 35 H 109/47 L 93 L 10/19/17 16:00 10/19/17 20:00 10/19/17 16:00 10/19/17 19:33 10/19/17 20:00 Intake and Output: 10/19/17 10/20/17 18:59 06:59 Intake Total 1980.0 0 Output Total 0 0 Balance 1980.0 0 - Medications Medications: Current Medications Doxycycline Hyclate 100 mg/ (Sodium Chloride) 100 mls @ 100 mls/hr IVPB Q12H ANABELLA PRN Reason: Protocol Last Admin: 10/19/17 18:09 Dose: 100 mls/hr - Labs Labs: 10/19/17 05:39 10/19/17 05:39 PT 15.1 SECONDS (9.7-12.2) H 10/19/17 10:39 INR 1.4 10/19/17 10:39 APTT 62 SECONDS (21-34) H D 10/19/17 10:39 Assessment and Plan (1) Multiorgan failure Status: Acute (2) Septic shock Status: Acute (3) Acute on chronic renal failure Status: Acute (4) Anoxic encephalopathy Status: Acute (5) Nephrotic syndrome Status: Acute (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
--- NOTE | 2017-10-19 23:41 | CP.PCM.PN ---
Subjective - Date & Time of Evaluation Date of Evaluation: 10/19/17 Time of Evaluation: 07:30 - Subjective Subjective: Patient seen this morning Intubated Unresponsive On pressors s/p cardiopulmonary arrest Poor prognosis Family aware Objective - Vital Signs/Intake and Output Vital Signs (last 24 hours): Temp Pulse Resp BP Pulse Ox 98.7 F 126 H 35 H 109/47 L 93 L 10/19/17 16:00 10/19/17 20:00 10/19/17 16:00 10/19/17 19:33 10/19/17 20:00 Intake and Output: 10/19/17 10/20/17 18:59 06:59 Intake Total 1980.0 0 Output Total 0 0 Balance 1980.0 0 - Labs Labs: 10/19/17 05:39 10/19/17 05:39 PT 15.1 SECONDS (9.7-12.2) H 10/19/17 10:39 INR 1.4 10/19/17 10:39 APTT 62 SECONDS (21-34) H D 10/19/17 10:39
== END 2017-10-19 22:02 | DRG 584 ==
LOC: C.ER 07:56 → C.9E 09:16 → INTOOBSV 09:16 → UNDOADMOB 09:16 → OBSVTOIN 09:16 → C.6T 11:17 → C.9E 11:17 → C.6T 10-15 11:46 → C.9I 10-15 11:46 → C.6T 10-15 19:38 → C.9I 10-15 19:38 → OBSVTOIN 10-15 19:38
PROVIDERS: ADMIT Internal Medicine; ATTEND Internal Medicine
PROC: 02HV33Z Insertion of Infusion Device into Superior Vena Cava, Percutaneous Approach (ICD-10-PCS; principal; 2017-10-15)
PROC: 5A1955Z Respiratory Ventilation, Greater than 96 Consecutive Hours (ICD-10-PCS; 2017-10-15)
PROC: 5A09457 Assistance with Respiratory Ventilation, 24-96 Consecutive Hours, Continuous Positive Airway Pressure (ICD-10-PCS; 2017-10-15)
PROC: 0BH17EZ Insertion of Endotracheal Airway into Trachea, Via Natural or Artificial Opening (ICD-10-PCS; 2017-10-15)
PROC: 3E033XZ Introduction of Vasopressor into Peripheral Vein, Percutaneous Approach (ICD-10-PCS; 2017-10-16)
PROC: 5A1D70Z Performance of Urinary Filtration, Intermittent, Less than 6 Hours Per Day (ICD-10-PCS; 2017-10-17)
DX: A41.9 Sepsis, unspecified organism (principal); J96.22 Acute and chronic respiratory failure with hypercapnia; R65.21 Severe sepsis with septic shock; J69.0 Pneumonitis due to inhalation of food and vomit; I50.32 Chronic diastolic (congestive) heart failure; N17.9 Acute kidney failure, unspecified; G93.1 Anoxic brain damage, not elsewhere classified; E11.21 Type 2 diabetes mellitus with diabetic nephropathy; J44.1 Chronic obstructive pulmonary disease with (acute) exacerbation; E87.2 Acidosis; N18.6 End stage renal disease; N04.9 Nephrotic syndrome with unspecified morphologic changes; I46.9 Cardiac arrest, cause unspecified; E87.5 Hyperkalemia; E11.22 Type 2 diabetes mellitus with diabetic chronic kidney disease; I13.2 Hypertensive heart and chronic kidney disease with heart failure and with stage 5 chronic kidney disease, or end stage renal disease; Z51.5 Encounter for palliative care; Z99.2 Dependence on renal dialysis; Z91.19 Patient's noncompliance with other medical treatment and regimen; Z87.891 Personal history of nicotine dependence; Z99.81 Dependence on supplemental oxygen; Z79.4 Long term (current) use of insulin; Z66 Do not resuscitate